=== PATIENT | female | born 1935 ===

== ENCOUNTER 2024-01-30 05:48 | Outpatient (REF) | payer MEDICARE, SELFPAY ==
[2024-01-30 06:23] LABS: Uric Acid 4.6 mg/dL (2.4-5.7)
== END 2024-01-30 05:49 | disposition home or self-care (01) ==
LOC: HO.MMNH1L 05:48
PROVIDERS: Visit Provider Family Medicine
DX: Z13.89 Encounter for screening for other disorder (principal)
CPT/HCPCS: 36415; 84550

== ENCOUNTER 2024-01-30 09:37 | Emergency (ER) | payer MEDICARE, MEDICAID, SELFPAY ==
[2024-01-30 09:42] VITALS: BP 142/86; PULSE 53; O2SAT 93
[2024-01-30 09:47] VITALS: BP 124/54; PULSE 55; RESP 18; O2SAT 97; BMI 30.3
--- NOTE | 2024-01-30 09:59 | ED_ITS ---
History of Present Illness General Chief Complaint: Epistaxis Stated Complaint: BLOODY NOSE FROM SNF,NO THINNERS PER EMS Time Seen by Provider: 01/30/24 09:40 Source: patient and EMS Mode of arrival: EMS Limitations: no limitations History of Present Illness HPI Narrative: 88-year-old female came in from [facility] for evaluation of right nostril bleed since 03:00, patient felt her right nostril is very dry then start to bleed after itching the inside of the right nostril, patient is not on AC or antiplatelet therapy, no history of bleeding disorder. Patient declined headache, chest pain, shortness of breath, dizziness, and lightheadedness. Patient until recently lived independently because of multiple falls patient was transferred to [facility] [place]. Related Data Allergies Allergy/AdvReac Type Severity Reaction Status Date / Time lisinopril Allergy Unknown Unknown Uncoded 01/30/24 09:49 Review of Systems 2 Review of Systems: All other systems are reviewed and are negative Constitutional: Reports as per HPI and Reports no additional constitutional complaints Eyes: Reports as per HPI and Reports no additional eye complaints Reports system reviewed and no additional complaints, except as documented Cardiovascular: Reports as per HPI and Reports no additional cardiovascular complaints Respiratory: Reports as per HPI and Reports no additional respiratory complaints Gastrointestinal: Reports as per HPI and Reports no additional gastrointestinal complaints Genitourinary: Reports no additional female genitourinary complaints Musculoskeletal: Reports no additional musculoskeletal complaints Skin/Breast: Reports system reviewed and no additional complaints, except as docu Psychiatric: Reports no additional psychiatric complaints Endocrine: Reports no additional endocrine complaints Hematologic/Lymphatic: Reports no additional hematologic/lymphatic complaints Allergic/Immunologic: Reports no additional allergic/immunologic complaints Reports system reviewed and no additional complaints, except as documented and Reports Abnormal speech present [facility] Social History Social History Advance Directives: No Advance Directives Information Provided: No Do you have a plan to hurt others: No Plan Physical Exam 2 Vital Signs: Vital Signs: Last Vital Signs Temp 97.5 F 01/30/24 10:59 Pulse 54 01/30/24 10:59 Resp 14 01/30/24 10:59 BP 121/55 L 01/30/24 10:59 Pulse Ox 97 01/30/24 10:59 O2 Del Method Room Air 01/30/24 10:59 BMI result Body Mass Index 30.3 Vital signs have been reviewed and appear to be correct. Blood pressure elevated. Heart rate normal. Respiratory rate normal. Temperature normal. Oxygen saturation normal. Appearance: Alert. Oriented X3. No acute distress. Head: Normal external exam. Normocephalic. Atraumatic. No Nicole signs noted. No raccoon eyes noted Eyes: PERRLA. EOMI. Conjunctiva and sclera normal. Eyelids normal. ENT: Right nostril was dry blood but no active bleeding, external nasal clip was applied to apply external pressure. Neck: Normal inspection. Neck supple. FROM. No adenopathy. Thyroid Normal. No meningeal signs. No neck mass noted. CVS: Normal heart rate and rhythm. Heart sound normal. No murmurs noted. Pulses normal throughout. Respiratory: No respiratory distress. Painless inspiration. Breath sounds normal. No wheezes/rales/rhonchi noted. Chest nontender. No accessory muscle usage noted or decreased air movement noted. Abdomen: Soft and nontender. Bowel sounds normal in all 4 quadrants. No distention noted. No organomegaly noted. No visible injury noted. Back: No CVA tenderness. Full range of motion noted. Skin: Skin warm and dry. Normal skin color. Normal skin turgor. No rashes/lesions/lacerations noted. Extremities: No lower extremity edema. Extremities exhibit normal range of motion. Extremities nontender. Neuro: Oriented X 3. Cranial nerve exam: II-XII are grossly intact No motor deficit. No sensory deficit. Reflexes normal. Course Reevaluation(s) Reevaluation #1: Patient was observed in the emergency department for about 5 hours with no active nasal bleed, patient required no nasal packing, mild thrombocytopenia, otherwise stable H&H and coagulations. Time: 13:00 Medical Decision Making Differential Diagnosis Differential Diagnoses: The differential diagnosis associated with the presentation includes (Thrombocytopenia, coagulopathy, severe anemia, electrolyte derangement, anterior epistaxis, posterior epistaxis.) Admission/Observation Consideration of admission/observation: Escalation of care including admission/observation considered Consult Healthcare Provider Management of the patient was discussed with: Hospitalist Lab Data MDM Lab Attestation statement: I reviewed the patient's lab results. 01/30/24 10:11 01/30/24 10:11 Labs: Lab Results 04/25/24 Range/Units 10:11 WBC 6.5 (4.8-10.8) X10*3/uL RBC 3.99 L (4.20-5.50) X10*6/uL Hgb 12.6 (12.0-16.0) g/dl Hct 38.2 (37.0-47.0) % MCV 95.7 (80.0-98.0) fL MCH 31.6 (27.0-33.0) pg MCHC 33.0 (31.0-35.0) g/dl RDW 14.6 (11.0-16.0) % Plt Count 154 L (160-400) X10*3/uL MPV 9.8 (9.4-12.3) fL Immature Gran % (Auto) 0.2 (0.0-0.4) % Neut % (Auto) 69.7 (45-73) % Lymph % (Auto) 20.4 (20-40) % [place] % (Auto) 6.3 (2-11) % Eos % (Auto) 2.9 (0-4) % Baso % (Auto) 0.5 (0-2) % Lymph # (Auto) 1.3 (1.2-4.9) X10*3/uL [place] # (Auto) 0.4 (0.1-1.2) X10*3/uL Eos # (Auto) 0.2 (0.0-0.4) X10*3/uL Baso # (Auto) 0.0 (0.0-0.2) X10*3/uL Abs Immat Gran (auto) 0.01 (0.00-0.03) X10*3/uL Absolute Neuts (auto) 4.6 (2.0-8.3) x10*3/uL Absolute Nucleated RBC 0.000 (0.0-0.012) X10*3/uL Nucleated RBC % (auto) 0.0 (0.0-0.2) /100WBC PT 12.8 (11.1-13.3) SEC INR 1.1 (0.9-1.1) APTT 31.3 (26.0-36.8) SEC Sodium 141 (135-145) mmol/L Potassium 4.7 D (3.3-5.1) mmol/L Chloride 108 (96-108) mmol/L Carbon Dioxide 27 (22-29) mmol/L Anion Gap 11 L (12-20) BUN 23 H (9-16) mg/dL Creatinine 0.80 (0.5-1.4) mg/dL Estim Creat Clear Calc 50.7 Estimated GFR > 60 Random Glucose 81 (60-115) mg/dL Calcium 9.6 (8.4-10.2) mg/dL Troponin I High Sens < 2.7 (<3.5-17.0) ng/L Discharge Plan Discharge Clinical Impression: Epistaxis Patient Disposition: Xfer SNF Instructions: Nosebleed (ED) Additional Instructions: If is start to bleed from your nose apply external nasal pressure for about 10 minutes if the bleeding does not stop seek immediate medical attention. Referrals: Rex Bass MD [Primary Care Provider] - Print Language: Japanese
[2024-01-30 10:15] LABS: MANUAL DIFF FLAG NO
[2024-01-30 10:17] LABS: Basophils Percent Auto 0.5 % (0-2); Eosinophils Absolute Auto 0.2 X10*3/uL (0.0-0.4); Eosinophils Percent Auto 2.9 % (0-4); Hematocrit 38.2 % (37.0-47.0); Hemoglobin 12.6 g/dl (12.0-16.0); Imm Gran Abs Auto 0.01 X10*3/uL (0.00-0.03); Imm Gran Pct Auto 0.2 % (0.0-0.4); Lymphocytes Absolute Auto 1.3 X10*3/uL (1.2-4.9); Lymphocytes Percent Auto 20.4 % (20-40); Mean Corpuscular Hemoglobin 31.6 pg (27.0-33.0); Mean Corpuscular Volume 95.7 fL (80.0-98.0); Mean Platelet Volume 9.8 fL (9.4-12.3); Monocytes Absolute Auto 0.4 X10*3/uL (0.1-1.2); Monocytes Percent Auto 6.3 % (2-11); Neutrophils Absolute Auto 4.6 x10*3/uL (2.0-8.3); Neutrophils Percent Auto 69.7 % (45-73); Platelet Count 154 X10*3/uL (160-400); Red Blood Count 3.99 X10*6/uL (4.20-5.50); Red Cell Distribution Width 14.6 % (11.0-16.0); White Blood Count 6.5 X10*3/uL (4.8-10.8)
[2024-01-30 10:28] LABS: Anion Gap 11 (12-20); Blood Urea Nitrogen 23 mg/dL (9-16); Calcium 9.6 mg/dL (8.4-10.2); Carbon Dioxide 27 mmol/L (22-29); Chloride 108 mmol/L (96-108); Creatinine Clr Calc Pharmacy 50.7; Estimated Glomerular Filt Rate > 60; Glucose Random 81 mg/dL (60-115); Potassium 4.7 mmol/L (3.3-5.1); Sodium 141 mmol/L (135-145)
[2024-01-30 10:37] LABS: INTERNATIONAL NORM RATIO 1.1 (0.9-1.1); Prothrombin Time 12.8 SEC (11.1-13.3)
[2024-01-30 10:39] LABS: Troponin-I High Sensitivity < 2.7 ng/L (<3.5-17.0)
[2024-01-30 10:40] LABS: Partial Thromboplastin Time 31.3 SEC (26.0-36.8)
[2024-01-30 10:59] VITALS: BP 121/55; PULSE 54; RESP 14; TEMP 36.4; O2SAT 97
[2024-01-30 12:57] VITALS: BP 122/31; PULSE 59; RESP 16; TEMP 36.4; O2SAT 94
== END 2024-01-30 12:59 | disposition skilled nursing facility (03) ==
PROVIDERS: Emergency Provider Emergency Medicine; PCP Family Medicine
DX: R04.0 Epistaxis (principal); Z79.899 Other long term (current) drug therapy
CPT/HCPCS: 36415; 80048; 84484; 84550; 85025; 85610; 85730; 99283

== ENCOUNTER 2024-03-10 12:34 | Outpatient (REF) | payer MEDICARE, SELFPAY ==
[2024-03-10 12:39] LABS: MANUAL DIFF FLAG NO
[2024-03-10 12:45] LABS: Basophils Percent Auto 0.5 % (0-2); Eosinophils Absolute Auto 0.2 X10*3/uL (0.0-0.4); Eosinophils Percent Auto 2.7 % (0-4); Hematocrit 37.2 % (37.0-47.0); Hemoglobin 12.3 g/dl (12.0-16.0); Imm Gran Abs Auto 0.02 X10*3/uL (0.00-0.03); Imm Gran Pct Auto 0.4 % (0.0-0.4); Lymphocytes Absolute Auto 1.4 X10*3/uL (1.2-4.9); Lymphocytes Percent Auto 24.6 % (20-40); Mean Corpuscular HGB Conc 33.1 g/dl (31.0-35.0); Mean Corpuscular Hemoglobin 32.1 pg (27.0-33.0); Mean Corpuscular Volume 97.1 fL (80.0-98.0); Mean Platelet Volume 10.7 fL (9.4-12.3); Monocytes Absolute Auto 0.5 X10*3/uL (0.1-1.2); Monocytes Percent Auto 8.5 % (2-11); Neutrophils Absolute Auto 3.5 x10*3/uL (2.0-8.3); Neutrophils Percent Auto 63.3 % (45-73); Platelet Count 196 X10*3/uL (160-400); Red Blood Count 3.83 X10*6/uL (4.20-5.50); Red Cell Distribution Width 15.2 % (11.0-16.0); White Blood Count 5.5 X10*3/uL (4.8-10.8)
[2024-03-10 12:58] LABS: Anion Gap 12 (12-20); Blood Urea Nitrogen 20 mg/dL (9-16); Calcium 9.8 mg/dL (8.4-10.2); Carbon Dioxide 24 mmol/L (22-29); Chloride 109 mmol/L (96-108); Estimated Glomerular Filt Rate 57; Glucose Random 81 mg/dL (60-115); Sodium 141 mmol/L (135-145); Uric Acid 5.4 mg/dL (2.4-5.7)
== END 2024-03-10 12:35 | disposition home or self-care (01) ==
LOC: HO.MMNH1L 12:34
PROVIDERS: Visit Provider Family Medicine
DX: Z13.89 Encounter for screening for other disorder (principal)
CPT/HCPCS: 36415; 80048; 84550; 85025

== ENCOUNTER 2024-04-05 13:10 | Inpatient (IN) | payer MEDICARE, SELFPAY ==
--- NOTE | ~2024-04-05 | XR_ITS ---
EXAMINATION: XR FOOT, LEFT CLINICAL INFORMATION: Rule out osteo- COMPARISON: None available. TECHNIQUE: AP, lateral, and oblique views of the left foot. FINDINGS: 3 views frontal lateral and oblique, postsurgical changes amputation mid tarsal first toe, subtle radiolucency involving the head of the first metatarsal raising concern for possible osteomyelitis. There are hammertoes second through fifth digits. There are vascular calcifications. XR/XR foot LT min 3V IMPRESSION: * Subtle radiolucency involving the head of the first metatarsal head raising concern for possible osteomyelitis. Please correlate with patient's clinical presentation. Bone scan or MRI could be utilized for further investigation if clinically indicated. * Amputation mid tarsal first toe. * Hammertoes.
[2024-04-05 13:18] VITALS: BP 139/52; PULSE 58; O2SAT 98
[2024-04-05 13:24] VITALS: BP 133/51; PULSE 53; RESP 16; TEMP 36.4; O2SAT 98; BMI 30.5
--- NOTE | 2024-04-05 13:41 | ED.LOWEXIN ---
HPI - Extremity Injury (Lower) General Chief Complaint: Wound/Laceration Stated Complaint: L TOE/FOOT PAIN FROM SNF PER EMS Time Seen by Provider: 04/05/24 13:26 Source: patient, EMS, RN notes reviewed and old records reviewed Mode of arrival: EMS History of Present Illness ED Provider: Peggy Chua PA-C HPI Narrative: 88-year-old female with a past medical history of HTN, ACS, anxiety, HLD, A flutter, CKD, presenting to the ED via EMS from [facility] for worsening left 2nd toe pain, erythema, and swelling noted this week. Patient was initiated on Keflex at facility yesterday. Patient reports increasing/worsening pain over the past few weeks. Denies known fever or SOB Related Data Allergies Allergy/AdvReac Type Severity Reaction Status Date / Time lisinopril Allergy Unknown Unknown Uncoded 04/05/24 13:26 Review of Systems Review of Systems: Constitutional: No Fever, No Chills Cardiovascular: No Chest Pain, No SOB Respiratory: No Cough, No Sputum, No Wheezing Gastrointestinal: No Nausea, No Vomiting, No Diarrhea, No Abdominal pain Genitourinary: No Dysuria, No Urinary Frequency, No Hematuria, No Flank Pain Musculoskeletal: +joint pain, No Myalgias, +Joint Swelling Skin: No Skin Lesions, No rash Neuro: No Weakness, No Numbness, No Paresthesias Yes all other systems are reviewed and are negative Constitutional: Constitutional: Reports as per HPI [facility] Past Medical History Attestation statement: The following information was validated with the patient. Source: old records reviewed Medical History Coronary artery disease Hypertension Hypercholesteremia Chronic renal failure Palpitations Anxiety Depression Diabetes mellitus, type 2 COPD (chronic obstructive pulmonary disease) Surgical History H/O coronary artery bypass surgery Social History Social History Advance Directives: No Advance Directives Information Provided: No Do you have a plan to hurt others: No Plan Physical Exam Vital Signs: Vital Signs: Last Vital Signs Temp 97.6 F 04/05/24 13:24 Pulse 53 04/05/24 13:24 Resp 16 04/05/24 13:24 BP 133/51 L 04/05/24 13:24 Pulse Ox 98 04/05/24 13:24 O2 Del Method Room Air 04/05/24 13:24 BMI result Body Mass Index 30.5 Const: General: cooperative, healthy appearing and no acute distress Orientation/consciousness: patient oriented x3 Limitations: no limitations HEENT: Head: Yes normal to inspection and Yes atraumatic Ears: hearing grossly normal bilaterally General nose exam: Normal external nose present Face and sinus: Yes normal facial exam Eyes: General: appearance normal, both eyes and all related structures EOM: EOMs intact bilaterally Neck: Neck: Yes normal visual inspection and Yes no meningeal signs Resp: Effort & Inspection: normal respiratory effort and no respiratory distress Cardio: Rate: regular rate Heart sounds: S1 normal heart sound present and S2 normal heart sound present Peripheral pulses: dorsalis pedis present Skin: Rashes: no rashes Neuro: General: patient oriented x3 and no meningeal signs Cranial nerves: Yes CN's II-XII intact bilaterally Extrem: Other: Please refer to images above. Left lower extremity with appreciable erythema/warmth. Left 2nd toe with exquisite tenderness. No drainage. NV intact Course Course Course Narrative: -[id number]--no leukocytosis. CRP elevated XR foot LT min 3V IMPRESSION: * Subtle radiolucency involving the head of the first metatarsal head raising concern for possible osteomyelitis. Please correlate with patient's clinical presentation. Bone scan or MRI could be utilized for further investigation if clinically indicated. * Amputation mid tarsal first toe. * Hammertoes. > plan to admit for further management Medical Decision Making Medical Decision Making MDM Narrative: 88-year-old female with a past medical history of HTN, ACS, anxiety, HLD, A flutter, CKD, presenting to the ED via EMS from [facility] for worsening left 2nd toe pain, erythema, and swelling noted this week. On exam vital signs stable, afebrile, NAD, nontoxic appearing, physical exam as noted above. Please refer to images. Concern for cellulitis vs osteomyelitis. lower suspicion for DVT, CHF Low suspicion for severe sepsis at this time Plan: Labs, lactic/blood cultures, x-ray, IV antibiotics, anticipated admission Please refer to course for remaining clinical decision making, interpretation of labs/imaging results, and discussions with consultants and/or family members. Differential Diagnosis Differential Diagnoses: The differential diagnosis associated with the presentation includes As above Admission/Observation Consideration of admission/observation: Escalation of care including admission/observation considered Consult Healthcare Provider Management of the patient was discussed with: Hospitalist Lab Data MDM Lab Attestation statement: I reviewed the patient's lab results. 04/05/24 14:09 04/05/24 14:09 Labs: Lab Results 04/05/24 Range/Units 14:09 WBC 7.3 (4.8-10.8) X10*3/uL RBC 3.96 L (4.20-5.50) X10*6/uL Hgb 12.7 (12.0-16.0) g/dl Hct 38.0 (37.0-47.0) % MCV 96.0 (80.0-98.0) fL MCH 32.1 (27.0-33.0) pg MCHC 33.4 (31.0-35.0) g/dl RDW 14.4 (11.0-16.0) % Plt Count 218 (160-400) X10*3/uL MPV 10.0 (9.4-12.3) fL Immature Gran % (Auto) 0.4 (0.0-0.4) % Neut % (Auto) 73.6 H (45-73) % Lymph % (Auto) 17.0 L (20-40) % [place] % (Auto) 7.2 (2-11) % Eos % (Auto) 1.5 (0-4) % Baso % (Auto) 0.3 (0-2) % Lymph # (Auto) 1.2 (1.2-4.9) X10*3/uL [place] # (Auto) 0.5 (0.1-1.2) X10*3/uL Eos # (Auto) 0.1 (0.0-0.4) X10*3/uL Baso # (Auto) 0.0 (0.0-0.2) X10*3/uL Abs Immat Gran (auto) 0.03 (0.00-0.03) X10*3/uL Absolute Neuts (auto) 5.3 (2.0-8.3) x10*3/uL Absolute Nucleated RBC 0.000 (0.0-0.012) X10*3/uL Nucleated RBC % (auto) 0.0 (0.0-0.2) /100WBC PT 11.8 (11.1-13.3) SEC INR 1.0 (0.9-1.1) Sodium 141 (135-145) mmol/L Potassium 4.1 (3.3-5.1) mmol/L Chloride 106 (96-108) mmol/L Carbon Dioxide 25 (22-29) mmol/L Anion Gap 14 (12-20) BUN 18 H (9-16) mg/dL Creatinine 0.92 (0.5-1.4) mg/dL Estim Creat Clear Calc 42.6 Estimated GFR 58 Random Glucose 81 (60-115) mg/dL Lactic Acid 1.4 (0.5-2.0) mmol/L Calcium 9.7 (8.4-10.2) mg/dL Total Bilirubin 0.3 (0.0-1.0) mg/dL Direct Bilirubin 0.1 (0.0-0.5) mg/dL AST 15 (5-31) U/L ALT 14 (0-31) U/L Alkaline Phosphatase 80 (39-117) U/L C-Reactive Protein 3.30 H (< or = 0.50) mg/dL B-Natriuretic Peptide 90 (<100) pg/mL Total Protein 6.9 (6.5-8.0) g/dL Albumin 3.8 (3.5-5.0) g/dL Independent Interpretation I performed an independent interpretation of an: Plain X-Ray Radiology Impression Discussion of test interpretation with radiology: I have reviewed the radiologist's reading. Independent Historian Clinical information obtained from an independent historian. History obtained from or confirmed by: EMS External Record Review External record reviewed: Inpatient record, Office record, Outpatient record, Prior outpatient labs, Prior outpatient radiology, Primary care record and Outside ED record Tests considered The following testing was considered but not selected: As above Prescription Management I considered prescription management with: Pain Medication and Antibiotic Chronic Conditions Patient?s care impacted by: Hypertension Critical Care Time Critical Care Time Critical Care Time: Yes Total Critical Care Time: 40 Attestation: I have personally provided critical care time exclusive of time spent on separately billable procedures. Time includes review of lab data, radiology results, discussion with consultants, and monitoring for potential decompensation. Intervention performed as documented. Discharge Plan Discharge Clinical Impression: Osteomyelitis, Cellulitis Patient Disposition: Admitted As Inpatient Print Language: Indian
[2024-04-05 14:26] LABS: Prothrombin Time 11.8 SEC (11.1-13.3)
[2024-04-05 14:30] LABS: Basophils Percent Auto 0.3 % (0-2); Eosinophils Absolute Auto 0.1 X10*3/uL (0.0-0.4); Eosinophils Percent Auto 1.5 % (0-4); Hemoglobin 12.7 g/dl (12.0-16.0); Imm Gran Abs Auto 0.03 X10*3/uL (0.00-0.03); Imm Gran Pct Auto 0.4 % (0.0-0.4); Lymphocytes Absolute Auto 1.2 X10*3/uL (1.2-4.9); MANUAL DIFF FLAG NO; Mean Corpuscular HGB Conc 33.4 g/dl (31.0-35.0); Mean Corpuscular Hemoglobin 32.1 pg (27.0-33.0); Monocytes Absolute Auto 0.5 X10*3/uL (0.1-1.2); Monocytes Percent Auto 7.2 % (2-11); Neutrophils Absolute Auto 5.3 x10*3/uL (2.0-8.3); Neutrophils Percent Auto 73.6 % (45-73); Platelet Count 218 X10*3/uL (160-400); Red Blood Count 3.96 X10*6/uL (4.20-5.50); Red Cell Distribution Width 14.4 % (11.0-16.0); White Blood Count 7.3 X10*3/uL (4.8-10.8)
[2024-04-05 14:31] LABS: Lactic Acid 1.4 mmol/L (0.5-2.0)
[2024-04-05 14:48] LABS: Alanine Aminotransferase 14 U/L (0-31); Albumin Level 3.8 g/dL (3.5-5.0); Alkaline Phosphatase 80 U/L (39-117); Anion Gap 14 (12-20); Aspartate Amino Transferase 15 U/L (5-31); B Type Natriuretic Peptide 90 pg/mL (<100); Bilirubin Direct 0.1 mg/dL (0.0-0.5); Bilirubin Total 0.3 mg/dL (0.0-1.0); Blood Urea Nitrogen 18 mg/dL (9-16); Calcium 9.7 mg/dL (8.4-10.2); Carbon Dioxide 25 mmol/L (22-29); Chloride 106 mmol/L (96-108); Creatinine Clr Calc Pharmacy 42.6; Estimated Glomerular Filt Rate 58; Glucose Random 81 mg/dL (60-115); Potassium 4.1 mmol/L (3.3-5.1); Sodium 141 mmol/L (135-145); Total Protein 6.9 g/dL (6.5-8.0)
[2024-04-05 15:00] LABS: Erythrocyte Sedimentation Rate 34 MM/HR (0-20)
[2024-04-05] MEDS: Piperacillin Sodium/Tazobactam 3.375 GM in 0.9 % Sodium Chloride 50 ML IV ×2 (15:33→20:15)
[2024-04-05] MEDS: vancomycin/NS 2,000 MG/500 ML PLAST..BAG 250 MG IV (15:38)
--- NOTE | 2024-04-05 15:46 | PM.IMHP ---
History of Present Illness Date of Service: 04/06/24 Chief Complaint: Foot pain An 88 years old lady with PMH of HTN, CAD, HLD, DMII among others who presents from [facility] with worsening left 2nd toe pain, swelling and erythema for 1 week. The patient reports worsening pain with no fever or chills. She was started on oral antibiotics but did not improved In ED an XR was done showing suspecion of osteomyelitis. Started on IV antibiotics and admitted for further work up and management. Review of Systems Review of Systems: No fever, some chills w weakness No chest pain, palpitation No shortness of breath or coughing No abdominal pain, nausea or vomiting No urinary symptoms Left foot pain PMFSH Medical History Coronary artery disease Hypertension Hypercholesteremia Chronic renal failure Palpitations Anxiety Depression Diabetes mellitus, type 2 COPD (chronic obstructive pulmonary disease) Surgical History H/O coronary artery bypass surgery Social History Household Members: None Housing: Long-Term Do you presently have visiting nurse or other home services: No Alcohol intake: never Patient Tobacco Use Status: Never used Tobacco Smoked in Last 30 Days: No Use of substances other than those prescribed or required for medical reasons: No Currently Displaying Signs/Symptoms of Drug Intoxication Withdrawal: No Any prior treatment program specific to substance use: No Advance Directives: No Advance Directives Information Provided: No Do you have a plan to hurt others: No Plan Recently lost weight without trying: No Eating poorly because of decreased appetite: No Patient : No : No Poor oral hygiene: No Meds Allergies Allergy/AdvReac Type Severity Reaction Status Date / Time lisinopril Allergy Unknown Unknown Uncoded 04/05/24 13:26 Active Medications: Current Medications Acetaminophen (Acetaminophen 325 Mg Tablet) 650 mg PO Q6H PRN PRN Reason: Pain, Mild (Pain Scale 1-3), fever or headache Calcium Carbonate (Calcium Carbonate 750 Mg Tab.Chew) 750 mg PO Q4H PRN PRN Reason: Heartburn Enoxaparin Sodium (Enoxaparin Sodium 40 Mg/0.4 Ml Syringe) 40 mg SUBCUT Q24H LAURA Vancomycin HCl (Vancomycin/Ns) 2,000 mg in 500 mls @ 250 mls/hr IV ONCE ONE Stop: 04/05/24 15:55 Last Admin: 04/05/24 15:38 Dose: 250 mls/hr Piperacillin Sod/Tazobactam (Sod 3.375 gm/ Sodium Chloride) 50 mls @ 100 mls/hr IV Q6H LAURA Magnesium Hydroxide (Milk Of Magnesia 30 Ml Oral.Susp) 30 ml PO DAILY PRN PRN Reason: Constipation Melatonin (Melatonin 3 Mg Tablet) 6 mg PO BEDTIME PRN PRN Reason: Insomnia Ondansetron HCl (Ondansetron Hcl 4 Mg/2 Ml Vial) 4 mg IVPUSH Q8H PRN PRN Reason: Nausea and Vomiting Pharmacy Consult (Consult Rx Vancomycin Dosing) 1 each MISCELLANE DAILY PRN PRN Reason: Consult order Sodium Chloride (0.9 % Sodium Chloride Flush 3 Ml Syringe) 3 ml IVFLUSH QSHIFT [facility] Home Medications ?Medication ?Instructions ?Recorded ?Confirmed ?Last Taken ?Type Saccharomyces boulardii 250 mg 250 mg PO BID 04/05/24 04/05/24 Unknown History capsule (Probiotic (S.boulardii)) acetaminophen 325 mg tablet 650 mg PO Q6H PRN Fever Or Pain 04/05/24 04/05/24 Unknown History (Tylenol) albuterol sulfate 2.5 mg/3 mL 2.5 mg inhalation Q6H PRN 04/05/24 04/05/24 Unknown History (0.083 %) solution for nebulization Shortness Of Breath Or Wheezing amiodarone 200 mg tablet 200 mg PO DAILY 04/05/24 04/05/24 Unknown History ascorbic acid (vitamin C) 250 mg 250 mg PO DAILY 04/05/24 04/05/24 Unknown History tablet (Vitamin C) atorvastatin 20 mg tablet 20 mg PO BEDTIME 04/05/24 04/05/24 Unknown History bisacodyl 10 mg rectal suppository 10 mg IL DAILY PRN Constipation 04/05/24 04/05/24 Unknown History (Dulcolax (bisacodyl)) cephalexin 250 mg capsule 250 mg PO Q6H 04/05/24 04/05/24 Unknown History cholecalciferol (vitamin D3) 25 50 mcg PO DAILY 04/05/24 04/05/24 Unknown History mcg (1,000 unit) tablet (Vitamin D3) dextromethorphan-guaifenesin 10 10 ml PO Q4H PRN Cough 04/05/24 04/05/24 Unknown History mg-100 mg/5 mL oral syrup diclofenac sodium 1 % topical gel 4 g topical DAILY 04/05/24 04/05/24 Unknown History diclofenac sodium 1 % topical gel 4 g topical Q6H PRN neck pain 04/05/24 04/05/24 Unknown History escitalopram oxalate 10 mg tablet 30 mg PO DAILY 04/05/24 04/05/24 Unknown History ferrous sulfate 325 mg (65 mg 325 mg PO DAILY 04/05/24 04/05/24 Unknown History iron) tablet,delayed release fluticasone 250 mcg-salmeterol 50 1 ea inhalation BID 04/05/24 04/05/24 Unknown History mcg/dose blistr powdr for inhalation furosemide 20 mg tablet 10 mg PO DAILY 04/05/24 04/05/24 Unknown History gabapentin 300 mg capsule 300 mg PO BID 04/05/24 04/05/24 Unknown History loperamide 2 mg tablet 2 mg PO Q2H PRN Diarrhea 04/05/24 04/05/24 Unknown History magnesium hydroxide 400 mg/5 mL 30 ml PO DAILY PRN Constipation 04/05/24 04/05/24 Unknown History oral suspension (Milk of Magnesia) nystatin 100,000 unit/gram topical 1 appl topical DAILY 04/05/24 04/05/24 Unknown History powder oxymetazoline 0.05 % nasal mist 1 spray intranasal Q12H PRN nasal 04/05/24 04/05/24 Unknown History (Afrin (oxymetazoline)) bleeding pantoprazole 40 mg tablet,delayed 40 mg PO DAILY@62904/05/24 04/05/24 Unknown History release polyethylene glycol 3350 17 gram 17 g PO DAILY 04/05/24 04/05/24 Unknown History oral powder packet (Miralax) polyethylene glycol 3350 17 gram 17 g PO Q3D PRN Constipation 04/05/24 04/05/24 Unknown History oral powder packet (Miralax) ropinirole 2 mg tablet 2 mg PO BID 04/05/24 04/05/24 Unknown History sennosides 8.6 mg-docusate sodium 1 tab-cap PO BID PRN Constipation 04/05/24 04/05/24 Unknown History 50 mg tablet (Senna with Docusate Sodium) sodium chloride 0.65 % nasal spray 2 spray intranasal BID 04/05/24 04/05/24 Unknown History aerosol (Saline Nasal) sodium phosphates 19 gram-7 118 ml [place] DAILY PRN Constipation 04/05/24 04/05/24 Unknown History gram/118 mL enema (Fleet Enema) tramadol 50 mg tablet 50 mg PO BEDTIME 04/05/24 04/05/24 Unknown History tramadol 50 mg tablet 50 mg PO BID PRN Pain 04/05/24 04/05/24 Unknown History trazodone 50 mg tablet 12.5 mg PO BID PRN 04/05/24 04/05/24 Unknown History anxiety/agitation trazodone 50 mg tablet 25 mg PO BEDTIME 04/05/24 04/05/24 Unknown History Physical Exam Vital Signs and Narrative: Vital Signs: Last Vital Signs Temp 97.6 F 04/05/24 13:24 Pulse 53 04/05/24 13:24 Resp 16 04/05/24 13:24 BP 133/51 L 04/05/24 13:24 Pulse Ox 98 04/05/24 13:24 O2 Del Method Room Air 04/05/24 13:24 BMI result Body Mass Index 30.5 Const: Other: Constitutional : Awake, interactive, not in distress Neck : Normal inspection, Supple Cardiovascular : RRR, no JVP, no lower extremity edema Respiratory : good bilateral air entry, no crackles, wheezes or rhonchi Gastrointestinal: soft, lax, Normal bowel sounds, Non tender Skin : Warm, Dry, LLE erythema and 2nd toe swelling and redness Neurological : Alert & oriented x3, No focal deficit Results Labs 04/06/24 05:44 04/06/24 05:44 Labs: Laboratory Results - last 24 hr 04/05/24 14:09 MCV 96.0 MCH 32.1 MCHC 33.4 RDW 14.4 Plt Count 218 MPV 10.0 Immature Gran % (Auto) 0.4 Neut % (Auto) 73.6 H Lymph % (Auto) 17.0 L [place] % (Auto) 7.2 Eos % (Auto) 1.5 Baso % (Auto) 0.3 Lymph # (Auto) 1.2 [place] # (Auto) 0.5 Eos # (Auto) 0.1 Baso # (Auto) 0.0 Abs Immat Gran (auto) 0.03 Absolute Neuts (auto) 5.3 Absolute Nucleated RBC 0.000 Nucleated RBC % (auto) 0.0 ESR 34 H PT 11.8 INR 1.0 Anion Gap 14 Estim Creat Clear Calc 42.6 Estimated GFR 58 Random Glucose 81 Lactic Acid 1.4 Calcium 9.7 Total Bilirubin 0.3 Direct Bilirubin 0.1 AST 15 ALT 14 Alkaline Phosphatase 80 C-Reactive Protein 3.30 H B-Natriuretic Peptide 90 Total Protein 6.9 Albumin 3.8 Imaging Radiologist's Impressions: Impressions Foot X-Ray 04/05/24 14:27 IMPRESSION: * Subtle radiolucency involving the head of the first metatarsal head raising concern for possible osteomyelitis. Please correlate with patient's clinical presentation. Bone scan or MRI could be utilized for further investigation if clinically indicated. * Amputation mid tarsal first toe. * Hammertoes. Assessment and Plan (1) Cellulitis: Status: Acute (2) Osteomyelitis: Status: Acute Plan An 88 years old lady with PMH of HTN, CAD, HLD, DMII, AFlutter not on AC? among others who presents from [facility] with worsening left 2nd toe pain, swelling and erythema for 1 week. Osteomyelitis Left 1st Metatarsal XR showing possible 2nd Metatarsal head OM PEnding cultures Continue IV Abx ID consult Follow Vancomycin trough Atrial flutter, Continue AMiodarone HLD, Statin EKTA, Iron supplement DMII, POC and SSI Asthma, continue inhalers DVT PPx Lovenox The patient will need overnight hospital stay pending clinical improvement , final cultures and discharge planning Quality Stroke Does the patient have a stroke diagnosis?: No VTE Prior VTE?: No VTE Risk Level:: Medical - moderate - high VTE Device Contraindication: Treatment Not Indicated VTE Drug Contraindication: N/A - Med Ordered
--- NOTE | 2024-04-05 16:56 | PHA.MEDREC ---
Pharmacy Consult ? Medication Reconciliation Pharmacy has completed the medication reconciliation. List from [facility].
[2024-04-05 17:06] LABS: Glucose, Whole Blood 106 mg/dL (60-115)
[2024-04-05] MEDS: 0.9 % Sodium Chloride Flush 3 ML SYRINGE IVFLUSH ×2 (19:45→22:18)
--- NOTE | 2024-04-05 19:59 | PC.NURSE ---
pt cleaned and repositioned, pure wick applied for comfort, warm blankets applied and left leg elevated with pillows. call castro in reach, pt verbalized understanding of use.
[2024-04-05 20:03] VITALS: BP 173/68; PULSE 52; RESP 17; TEMP 36.7; O2SAT 97
[2024-04-05] MEDS: Acetaminophen 325 MG TABLET 650 MG PO (20:14)
[2024-04-05] MEDS: Gabapentin 300 MG CAPSULE PO (20:15)
[2024-04-05] MEDS: ondansetron HCL 4 MG/2 ML VIAL IVPUSH (20:15)
[2024-04-05] MEDS: traZODone HCL 50 MG TABLET 12.5 MG PO (20:15)
[2024-04-05] MEDS: Atorvastatin Calcium 20 MG TABLET PO (20:15)
[2024-04-05] MEDS: Enoxaparin Sodium 40 MG/0.4 ML SYRINGE SUBCUT (20:16)
[2024-04-05 21:11] VITALS: BP 143/70; PULSE 56; RESP 16; TEMP 36.2; O2SAT 98
[2024-04-05 21:39] LABS: Glucose, Whole Blood 74 mg/dL (60-115)
[2024-04-05] MEDS: rOPINIRole HCL 2 MG TABLET PO (22:01)
[2024-04-05] MEDS: traMADoL HCL 50 MG TABLET PO (22:12)
[2024-04-05 23:36] VITALS: BMI 31.2
[2024-04-06] MEDS: Piperacillin Sodium/Tazobactam 3.375 GM in 0.9 % Sodium Chloride 50 ML IV ×4 (03:01→20:19)
[2024-04-06 04:00] VITALS: BP 147/67; PULSE 50; RESP 16; TEMP 36.1; O2SAT 98
[2024-04-06] MEDS: Acetaminophen 325 MG TABLET 650 MG PO (05:24)
[2024-04-06] MEDS: Omeprazole 20 MG CAPSULE.DR PO (05:24)
[2024-04-06 06:14] LABS: Hematocrit 37.6 % (37.0-47.0); Hemoglobin 12.2 g/dl (12.0-16.0); Mean Corpuscular HGB Conc 32.4 g/dl (31.0-35.0); Mean Corpuscular Volume 98.7 fL (80.0-98.0); Mean Platelet Volume 10.1 fL (9.4-12.3); Platelet Count 194 X10*3/uL (160-400); Red Blood Count 3.81 X10*6/uL (4.20-5.50); Red Cell Distribution Width 14.6 % (11.0-16.0); White Blood Count 4.9 X10*3/uL (4.8-10.8)
[2024-04-06 06:29] LABS: Anion Gap 14 (12-20); Blood Urea Nitrogen 14 mg/dL (9-16); Calcium 9.3 mg/dL (8.4-10.2); Carbon Dioxide 22 mmol/L (22-29); Chloride 110 mmol/L (96-108); Creatinine Clr Calc Pharmacy 48.4; Estimated Glomerular Filt Rate > 60; Glucose Random 87 mg/dL (60-115); Potassium 4.1 mmol/L (3.3-5.1); Sodium 142 mmol/L (135-145)
[2024-04-06 07:51] LABS: Glucose, Whole Blood 83 mg/dL (60-115)
[2024-04-06] MEDS: Fluticasone/Vilanterol 100/25 BLST.W.DEV 1 PUFF INHALE (07:56)
[2024-04-06 07:57] VITALS: PULSE 50; RESP 15; O2SAT 94
[2024-04-06 08:00] VITALS: BP 116/55; PULSE 50; RESP 16; TEMP 36.1; O2SAT 97
[2024-04-06] MEDS: Furosemide 20 MG TABLET 10 MG PO (08:15)
[2024-04-06] MEDS: rOPINIRole HCL 2 MG TABLET PO ×2 (08:15→20:22)
[2024-04-06] MEDS: Amiodarone HCL 200 MG TABLET PO (08:17)
[2024-04-06] MEDS: Escitalopram Oxalate 10 MG TABLET 30 MG PO (08:17)
[2024-04-06] MEDS: Ferrous Sulfate 324 MG TABLET.DR PO (08:17)
[2024-04-06] MEDS: Ascorbic Acid 250 MG TABLET PO (08:17)
[2024-04-06] MEDS: Cholecalciferol (Vitamin D3) 25 MCG TABLET 50 MCG PO (08:17)
[2024-04-06] MEDS: Gabapentin 300 MG CAPSULE PO ×2 (08:18→20:22)
[2024-04-06] MEDS: polyethylene glycoL 3350 17 GM POWD.PACK PO (08:18)
[2024-04-06] MEDS: 0.9 % Sodium Chloride Flush 3 ML SYRINGE IVFLUSH ×3 (08:22→20:19)
--- NOTE | 2024-04-06 10:51 | HO.PM.IMPN ---
Subjective Subjective Date of Service: 04/06/24 Interval History: seen and evaluated foot looks much better less erythema and tenderness no other events Review of Systems Review of Systems: Yes all other systems are reviewed and are negative Physical Exam Vital Signs: Vital Signs: Last Vital Signs Temp 96.9 F 04/06/24 08:00 Pulse 50 04/06/24 08:00 Resp 16 04/06/24 08:00 BP 116/55 L 04/06/24 08:00 Pulse Ox 97 04/06/24 08:00 O2 Del Method Room Air 04/06/24 08:00 BMI result Body Mass Index 31.2 Const: Other: Constitutional : Awake, interactive, not in distress Neck : Normal inspection, Supple Cardiovascular : RRR, no JVP, no lower extremity edema Respiratory : good bilateral air entry, no crackles, wheezes or rhonchi Gastrointestinal: soft, lax, Normal bowel sounds, Non tender Skin : Warm, Dry, LLE erythema and 2nd toe swelling and redness Neurological : Alert & oriented x3, No focal deficit Objective Data Active Medications Acetaminophen (Acetaminophen 325 Mg Tablet) 650 mg PO Q6H PRN PRN Reason: Pain, Mild (Pain Scale 1-3), fever or headache Last Admin: 04/06/24 05:24 Dose: 650 mg Documented By: HALIMA Albuterol Sulfate (Albuterol Sulfate (0.083%) 2.5 Mg/3 Ml Vial.Neb) 2.5 mg INHALE Q6H PRN PRN Reason: Shortness Of Breath Or Wheezing Amiodarone HCl (Amiodarone Hcl 200 Mg Tablet) 200 mg PO DAILY [facility] Last Admin: 04/06/24 08:17 Dose: 200 mg Documented By: RIC Ascorbic Acid (Ascorbic Acid 250 Mg Tablet) 250 mg PO DAILY [facility] Last Admin: 04/06/24 08:17 Dose: 250 mg Documented By: RIC Atorvastatin Calcium (Atorvastatin Calcium 20 Mg Tablet) 20 mg PO BEDTIME [facility] Last Admin: 04/05/24 20:15 Dose: 20 mg Documented By: OPAL Bisacodyl (Bisacodyl 10 Mg Supp.Rect) 10 mg MN DAILY PRN PRN Reason: Constipation Calcium Carbonate (Calcium Carbonate 750 Mg Tab.Chew) 750 mg PO Q4H PRN PRN Reason: Heartburn Enoxaparin Sodium (Enoxaparin Sodium 40 Mg/0.4 Ml Syringe) 40 mg SUBCUT Q24H [facility] Last Admin: 04/05/24 20:16 Dose: 40 mg Documented By: OPAL Escitalopram Oxalate (Escitalopram Oxalate 10 Mg Tablet) 30 mg PO DAILY [facility] Last Admin: 04/06/24 08:17 Dose: 30 mg Documented By: RIC Ferrous Sulfate (Ferrous Sulfate 324 Mg Tablet.Dr) 324 mg PO DAILY [facility] Last Admin: 04/06/24 08:17 Dose: 324 mg Documented By: RIC Fluticasone/Vilanterol (Fluticasone/Vilanterol 100/25 Blst.W.Dev) 1 puff INHALE RDAILY [facility] Last Admin: 04/06/24 07:56 Dose: 1 puff Documented By: NEREIDA Furosemide (Furosemide 20 Mg Tablet) 10 mg PO DAILY [facility]; Protocol Last Admin: 04/06/24 08:15 Dose: 10 mg Documented By: RIC Gabapentin (Gabapentin 300 Mg Capsule) 300 mg PO BID [facility] Last Admin: 04/06/24 08:18 Dose: 300 mg Documented By: RIC Guaifenesin/Dextromethorphan (Guaifenesin Dm 100/10/5 Ml 5 Ml Syrup) 10 ml PO Q4H PRN PRN Reason: Cough Piperacillin Sod/Tazobactam (Sod 3.375 gm/ Sodium Chloride) 50 mls @ 100 mls/hr IV Q6H [facility] Last Infusion: 04/06/24 09:06 Dose: Infused Documented By: RIC Vancomycin HCl 1,250 mg/ (Sodium Chloride) 250 mls @ 166.667 mls/hr IV Q24H [facility] Insulin Human Lispro (Insulin Lispro 100 Unit/Ml 3 Ml Vial) 0 unit SUBCUT QIDACHS [facility]; Protocol Last Admin: 04/06/24 07:58 Dose: Not Given Documented By: RIC Non-Admin Reason: No Insulin Coverage Loperamide HCl (Loperamide Hcl 2 Mg Capsule) 2 mg PO Q2H PRN PRN Reason: Diarrhea Magnesium Hydroxide (Milk Of Magnesia 30 Ml Oral.Susp) 30 ml PO DAILY PRN PRN Reason: Constipation Magnesium Hydroxide (Milk Of Magnesia 30 Ml Oral.Susp) 30 ml PO DAILY PRN PRN Reason: Constipation Melatonin (Melatonin 3 Mg Tablet) 6 mg PO BEDTIME PRN PRN Reason: Insomnia Omeprazole (Omeprazole 20 Mg Capsule.Dr) 20 mg PO DAILY@0630 [facility] Last Admin: 04/06/24 05:24 Dose: 20 mg Documented By: HALIMA Ondansetron HCl (Ondansetron Hcl 4 Mg/2 Ml Vial) 4 mg IVPUSH Q8H PRN PRN Reason: Nausea and Vomiting Last Admin: 04/05/24 20:15 Dose: 4 mg Documented By: OPAL Oxymetazoline HCl (Oxymetazoline Hcl 0.05 % Nasal 15 Ml Bennett) 1 spray NOSTRIL-B Q12H PRN PRN Reason: nasal bleeding Pharmacy Consult (Consult Rx Vancomycin Dosing) 1 each MISCELLANE DAILY PRN PRN Reason: Consult order Polyethylene Glycol (Polyethylene Glycol 3350 17 Gm Powd.Pack) 17 gm PO DAILY [facility] Last Admin: 04/06/24 08:18 Dose: 17 gm Documented By: RIC Polyethylene Glycol (Polyethylene Glycol 3350 17 Gm Powd.Pack) 17 gm PO Q3D PRN PRN Reason: Constipation Ropinirole HCl (Ropinirole Hcl 2 Mg Tablet) 2 mg PO BID [facility] Last Admin: 04/06/24 08:15 Dose: 2 mg Documented By: RIC Senna/Docusate Sodium (Sennosides/Docusate Sodium Tablet) 1 tab PO BID PRN PRN Reason: Constipation Sodium Biphosphate/Sodium Phosphate (Sodium Phosphate,[place]-Dibasic 133 Ml Enema) 118 ml MN DAILY PRN PRN Reason: Constipation Sodium Chloride (0.9 % Sodium Chloride Flush 3 Ml Syringe) 3 ml IVFLUSH QSHIFT [facility] Last Admin: 04/06/24 08:22 Dose: 3 ml Documented By: RIC Sodium Chloride (Sodium Chloride 0.65 % Nasal 44 Ml Sprbtl) 2 spray NOSTRIL-B BID [facility] Last Admin: 04/06/24 09:06 Dose: Not Given Documented By: RIC Non-Admin Reason: Patient Refused Tramadol HCl (Tramadol Hcl 50 Mg Tablet) 50 mg PO BEDTIME [facility] Last Admin: 04/05/24 22:12 Dose: 50 mg Documented By: HALIMA Tramadol HCl (Tramadol Hcl 50 Mg Tablet) 50 mg PO BID PRN PRN Reason: Pain, Moderate(Pain Scale 4-6) Trazodone HCl (Trazodone Hcl 50 Mg Tablet) 12.5 mg PO BID PRN PRN Reason: anxiety/agitation Last Admin: 04/05/24 20:15 Dose: 12.5 mg Documented By: OPAL Trazodone HCl (Trazodone Hcl 25 Mg Halftab) 25 mg PO BEDTIME [facility] Last Admin: 04/06/24 00:37 Dose: Not Given Documented By: HALIMA Non-Admin Reason: pt asleep Vitamin D (Cholecalciferol (Vitamin D3) 25 Mcg Tablet) 50 mcg PO DAILY [facility] Last Admin: 04/06/24 08:17 Dose: 50 mcg Documented By: RIC Labs 04/06/24 05:44 04/06/24 05:44 Labs: Laboratory Results - last 24 hr 04/05/24 04/05/24 04/05/24 14:09 17:02 21:32 MCV 96.0 MCH 32.1 MCHC 33.4 RDW 14.4 Plt Count 218 MPV 10.0 Immature Gran % (Auto) 0.4 Neut % (Auto) 73.6 H Lymph % (Auto) 17.0 L [place] % (Auto) 7.2 Eos % (Auto) 1.5 Baso % (Auto) 0.3 Lymph # (Auto) 1.2 [place] # (Auto) 0.5 Eos # (Auto) 0.1 Baso # (Auto) 0.0 Abs Immat Gran (auto) 0.03 Absolute Neuts (auto) 5.3 Absolute Nucleated RBC 0.000 Nucleated RBC % (auto) 0.0 ESR 34 H PT 11.8 INR 1.0 Anion Gap 14 Estim Creat Clear Calc 42.6 Estimated GFR 58 POC Glucose 106 74 Random Glucose 81 Lactic Acid 1.4 Calcium 9.7 Total Bilirubin 0.3 Direct Bilirubin 0.1 AST 15 ALT 14 Alkaline Phosphatase 80 C-Reactive Protein 3.30 H B-Natriuretic Peptide 90 Total Protein 6.9 Albumin 3.8 04/06/24 04/06/24 05:44 07:43 MCV 98.7 H MCH 32.0 MCHC 32.4 RDW 14.6 Plt Count 194 MPV 10.1 Immature Gran % (Auto) Neut % (Auto) Lymph % (Auto) [place] % (Auto) Eos % (Auto) Baso % (Auto) Lymph # (Auto) [place] # (Auto) Eos # (Auto) Baso # (Auto) Abs Immat Gran (auto) Absolute Neuts (auto) Absolute Nucleated RBC 0.000 Nucleated RBC % (auto) 0.0 ESR PT INR Anion Gap 14 Estim Creat Clear Calc 48.4 Estimated GFR > 60 POC Glucose 83 Random Glucose 87 Lactic Acid Calcium 9.3 Total Bilirubin Direct Bilirubin AST ALT Alkaline Phosphatase C-Reactive Protein B-Natriuretic Peptide Total Protein Albumin Assessment and Plan (1) Cellulitis: Status: Acute (2) Osteomyelitis: Status: Acute Plan An 88 years old lady with PMH of HTN, CAD, HLD, DMII, AFlutter not on AC? among others who presents from [facility] with worsening left 2nd toe pain, swelling and erythema for 1 week. Osteomyelitis Left 1st Metatarsal XR showing possible 2nd Metatarsal head OM PEnding cultures Continue IV Abx ID consult Follow Vancomycin trough Atrial flutter, Continue AMiodarone HLD, Statin EKTA, Iron supplement DMII, POC and SSI Asthma, continue inhalers DVT PPx Lovenox The patient will need overnight hospital stay pending clinical improvement , final cultures and discharge planning Quality Stroke Does the patient have a stroke diagnosis?: No VTE Prior VTE?: No VTE Risk Level:: Medical - moderate - high VTE Device Contraindication: Treatment Not Indicated VTE Drug Contraindication: N/A - Med Ordered
[2024-04-06 11:14] LABS: Glucose, Whole Blood 90 mg/dL (60-115)
--- NOTE | 2024-04-06 13:00 | MHC.CM.PN ---
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 PT IS ESSENTIALLY W/C BOUND BUT STILL WORKS WITH REHAB FOR AMBULATION. +HCP, COPY REQUESTED FROM CENTER . PCP DR. SHARP DP: PT WILL RETURN TO [facility] ON DC VIA BLS. CM WILL CONTINUE TO FOLLOW FOR ANY CHANGE TO DC PLAN.
[2024-04-06] MEDS: traMADoL HCL 50 MG TABLET PO ×2 (14:00→20:22)
--- NOTE | 2024-04-06 15:11 | HO.WOUND ---
Wound Consult: Initial 88yr old?female admitted to [facility] on 04/06/24 - See progress notes and H&P for detailed history.? Wound consult placed for Left 2nd toe wound.? Patient agreeable to assessment and photo documentation.? Patient reports she has had wound for sometime and in the past had treated with podiatry. Left lower leg and foot cellulitis Left 2nd Toe Etiology: ?Unstageable Pressure Injury ?Present on Admission Measurements: 0.4cm x 0.5cm x 0.2cm Wound Bed: adherent yellow slough Drainage / Odor: yellow drainage noted no odor Edges: ? unattached Adela wound: ?bright red erythema, +swelling noted, No Induration, Fluctuance or Warmth noted Pain: extreme pain noted Goals of Treatment: ? Durafiber AG for moisture management Recommendations: 1. Turn and Reposition every 2 hours and as needed for patient comfort.? Use pillows or wedges to support off loading positions. 2. Off Load all bony prominences with use of pillows and heel boots if needed.? Apply Preventative foams where needed. ? 3. Monitor for incontinence and moisture control, use barrier creams when needed for prevention and treatment. 4. Provide adequate and supplemental nutrition.? 5. Order or Continue low air loss mattress. 6. When applicable maintain blood glucose levels per Providers order. 7.Bilateral Heels - Apply foam dressing, peel back and assess Q shift change every 3 -5 days and PRN. Off load from surface of bed with pillows or heel protector boots. 8. Left 2nd Toe - Cleanse with NS. Apply skin prep. Apply Durafiber AG to wound bed ,cover with foam cut dressing. Change every other day. Re-consult wound care Nurse for wound deterioration or wound changes.
[2024-04-06 16:00] VITALS: BP 134/61; PULSE 51; RESP 18; TEMP 36.2; O2SAT 100
[2024-04-06] MEDS: Enoxaparin Sodium 40 MG/0.4 ML SYRINGE SUBCUT (16:07)
[2024-04-06] MEDS: Morphine Sulfate 2 MG/ML CARTRIDGE IVPUSH ×2 (16:08→20:18)
[2024-04-06] MEDS: vancomycin HCL 1,250 MG in 0.9 % Sodium Chloride 250 ML 166.67 MG IV (16:09)
--- NOTE | 2024-04-06 16:09 | P.CNID_ITS ---
History of Present Illness Data of Consult Service Date: 04/06/24 Requesting physician: Jalen Oakley Primary Care Provider: Rex Bass MD HPI Reason for consult: left second toe infection She reports redness toe and foot over last month. She has no fever or chills. She has OM probable 1st metatarsal head. She was on Keflex for a day at [facility] with no improvement. Review of Systems 2 Review of Systems: Yes all other systems are reviewed and are negative PMFSH Past Medical History Medical History Coronary artery disease Hypertension Hypercholesteremia Chronic renal failure Palpitations Anxiety Depression Diabetes mellitus, type 2 COPD (chronic obstructive pulmonary disease) Family History Family history: reviewed and not pertinent Surgical History Surgical History H/O coronary artery bypass surgery Social History Social History Household Members: None Housing: Half-Way Do you presently have visiting nurse or other home services: No Alcohol intake: never Patient Tobacco Use Status: Never used Tobacco Smoked in Last 30 Days: No Use of substances other than those prescribed or required for medical reasons: No Currently Displaying Signs/Symptoms of Drug Intoxication Withdrawal: No Any prior treatment program specific to substance use: No Advance Directives: No Advance Directives Information Provided: No Do you have a plan to hurt others: No Plan Recently lost weight without trying: No Eating poorly because of decreased appetite: No Patient : No : No Poor oral hygiene: No service: No Meds Allergies Allergy/AdvReac Type Severity Reaction Status Date / Time lisinopril Allergy Unknown Unknown Uncoded 04/05/24 13:26 Active Medications: Current Medications Acetaminophen (Acetaminophen 325 Mg Tablet) 650 mg PO Q6H PRN PRN Reason: Pain, Mild (Pain Scale 1-3), fever or headache Last Admin: 04/06/24 05:24 Dose: 650 mg Albuterol Sulfate (Albuterol Sulfate (0.083%) 2.5 Mg/3 Ml Vial.Neb) 2.5 mg INHALE Q6H PRN PRN Reason: Shortness Of Breath Or Wheezing Amiodarone HCl (Amiodarone Hcl 200 Mg Tablet) 200 mg PO DAILY [facility] Last Admin: 04/06/24 08:17 Dose: 200 mg Ascorbic Acid (Ascorbic Acid 250 Mg Tablet) 250 mg PO DAILY [facility] Last Admin: 04/06/24 08:17 Dose: 250 mg Atorvastatin Calcium (Atorvastatin Calcium 20 Mg Tablet) 20 mg PO BEDTIME [facility] Last Admin: 04/05/24 20:15 Dose: 20 mg Bisacodyl (Bisacodyl 10 Mg Supp.Rect) 10 mg TN DAILY PRN PRN Reason: Constipation Calcium Carbonate (Calcium Carbonate 750 Mg Tab.Chew) 750 mg PO Q4H PRN PRN Reason: Heartburn Enoxaparin Sodium (Enoxaparin Sodium 40 Mg/0.4 Ml Syringe) 40 mg SUBCUT Q24H [facility] Last Admin: 04/05/24 20:16 Dose: 40 mg Escitalopram Oxalate (Escitalopram Oxalate 10 Mg Tablet) 30 mg PO DAILY [facility] Last Admin: 04/06/24 08:17 Dose: 30 mg Ferrous Sulfate (Ferrous Sulfate 324 Mg Tablet.Dr) 324 mg PO DAILY [facility] Last Admin: 04/06/24 08:17 Dose: 324 mg Fluticasone/Vilanterol (Fluticasone/Vilanterol 100/25 Blst.W.Dev) 1 puff INHALE RDAILY [facility] Last Admin: 04/06/24 07:56 Dose: 1 puff Furosemide (Furosemide 20 Mg Tablet) 10 mg PO DAILY [facility]; Protocol Last Admin: 04/06/24 08:15 Dose: 10 mg Gabapentin (Gabapentin 300 Mg Capsule) 300 mg PO BID [facility] Last Admin: 04/06/24 08:18 Dose: 300 mg Guaifenesin/Dextromethorphan (Guaifenesin Dm 100/10/5 Ml 5 Ml Syrup) 10 ml PO Q4H PRN PRN Reason: Cough Piperacillin Sod/Tazobactam (Sod 3.375 gm/ Sodium Chloride) 50 mls @ 100 mls/hr IV Q6H [facility] Last Infusion: 04/06/24 14:25 Dose: 0 mls/hr Vancomycin HCl 1,250 mg/ (Sodium Chloride) 250 mls @ 166.667 mls/hr IV Q24H [facility] Insulin Human Lispro (Insulin Lispro 100 Unit/Ml 3 Ml Vial) 0 unit SUBCUT QIDACHS [facility]; Protocol Last Admin: 04/06/24 11:15 Dose: Not Given Loperamide HCl (Loperamide Hcl 2 Mg Capsule) 2 mg PO Q2H PRN PRN Reason: Diarrhea Magnesium Hydroxide (Milk Of Magnesia 30 Ml Oral.Susp) 30 ml PO DAILY PRN PRN Reason: Constipation Magnesium Hydroxide (Milk Of Magnesia 30 Ml Oral.Susp) 30 ml PO DAILY PRN PRN Reason: Constipation Melatonin (Melatonin 3 Mg Tablet) 6 mg PO BEDTIME PRN PRN Reason: Insomnia Morphine Sulfate (Morphine Sulfate 2 Mg/Ml Cartridge) 2 mg IVPUSH Q4H PRN; Protocol PRN Reason: Pain, Severe (Pain Scale 7-10) Omeprazole (Omeprazole 20 Mg Capsule.Dr) 20 mg PO DAILY@0630 [facility] Last Admin: 04/06/24 05:24 Dose: 20 mg Ondansetron HCl (Ondansetron Hcl 4 Mg/2 Ml Vial) 4 mg IVPUSH Q8H PRN PRN Reason: Nausea and Vomiting Last Admin: 04/05/24 20:15 Dose: 4 mg Oxymetazoline HCl (Oxymetazoline Hcl 0.05 % Nasal 15 Ml Secor) 1 spray NOSTRIL- B Q12H PRN PRN Reason: nasal bleeding Pharmacy Consult (Consult Rx Vancomycin Dosing) 1 each MISCELLANE DAILY PRN PRN Reason: Consult order Polyethylene Glycol (Polyethylene Glycol 3350 17 Gm Powd.Pack) 17 gm PO DAILY [facility] Last Admin: 04/06/24 08:18 Dose: 17 gm Polyethylene Glycol (Polyethylene Glycol 3350 17 Gm Powd.Pack) 17 gm PO Q3D PRN PRN Reason: Constipation Ropinirole HCl (Ropinirole Hcl 2 Mg Tablet) 2 mg PO BID [facility] Last Admin: 04/06/24 08:15 Dose: 2 mg Senna/Docusate Sodium (Sennosides/Docusate Sodium Tablet) 1 tab PO BID PRN PRN Reason: Constipation Sodium Biphosphate/Sodium Phosphate (Sodium Phosphate,[place]-Dibasic 133 Ml Enema) 118 ml TN DAILY PRN PRN Reason: Constipation Sodium Chloride (0.9 % Sodium Chloride Flush 3 Ml Syringe) 3 ml IVFLUSH QSHIFT [facility] Last Admin: 04/06/24 08:22 Dose: 3 ml Sodium Chloride (Sodium Chloride 0.65 % Nasal 44 Ml Sprbtl) 2 spray NOSTRIL-B BID [facility] Last Admin: 04/06/24 09:06 Dose: Not Given Tramadol HCl (Tramadol Hcl 50 Mg Tablet) 50 mg PO BEDTIME [facility] Last Admin: 04/05/24 22:12 Dose: 50 mg Tramadol HCl (Tramadol Hcl 50 Mg Tablet) 50 mg PO BID PRN PRN Reason: Pain, Moderate(Pain Scale 4-6) Last Admin: 04/06/24 14:00 Dose: 50 mg Trazodone HCl (Trazodone Hcl 50 Mg Tablet) 12.5 mg PO BID PRN PRN Reason: anxiety/agitation Last Admin: 04/05/24 20:15 Dose: 12.5 mg Trazodone HCl (Trazodone Hcl 25 Mg Halftab) 25 mg PO BEDTIME [facility] Last Admin: 04/06/24 00:37 Dose: Not Given Vitamin D (Cholecalciferol (Vitamin D3) 25 Mcg Tablet) 50 mcg PO DAILY [facility] Last Admin: 04/06/24 08:17 Dose: 50 mcg Home Medications ?Medication ?Instructions ?Recorded ?Confirmed ?Last Taken ?Type Saccharomyces boulardii 250 mg 250 mg PO BID 04/05/24 04/05/24 Unknown History capsule (Probiotic (S.boulardii)) acetaminophen 325 mg tablet 650 mg PO Q6H PRN Fever Or Pain 04/05/24 04/05/24 Unknown History (Tylenol) albuterol sulfate 2.5 mg/3 mL 2.5 mg inhalation Q6H PRN 04/05/24 04/05/24 Unknown History (0.083 %) solution for nebulization Shortness Of Breath Or Wheezing amiodarone 200 mg tablet 200 mg PO DAILY 04/05/24 04/05/24 Unknown History ascorbic acid (vitamin C) 250 mg 250 mg PO DAILY 04/05/24 04/05/24 Unknown History tablet (Vitamin C) atorvastatin 20 mg tablet 20 mg PO BEDTIME 04/05/24 04/05/24 Unknown History bisacodyl 10 mg rectal suppository 10 mg TN DAILY PRN Constipation 04/05/24 04/05/24 Unknown History (Dulcolax (bisacodyl)) cephalexin 250 mg capsule 250 mg PO Q6H 04/05/24 04/05/24 Unknown History cholecalciferol (vitamin D3) 25 50 mcg PO DAILY 04/05/24 04/05/24 Unknown History mcg (1,000 unit) tablet (Vitamin D3) dextromethorphan-guaifenesin 10 10 ml PO Q4H PRN Cough 04/05/24 04/05/24 Unknown History mg-100 mg/5 mL oral syrup diclofenac sodium 1 % topical gel 4 g topical DAILY 04/05/24 04/05/24 Unknown History diclofenac sodium 1 % topical gel 4 g topical Q6H PRN neck pain 04/05/24 04/05/24 Unknown History escitalopram oxalate 10 mg tablet 30 mg PO DAILY 04/05/24 04/05/24 Unknown History ferrous sulfate 325 mg (65 mg 325 mg PO DAILY 04/05/24 04/05/24 Unknown History iron) tablet,delayed release fluticasone 250 mcg-salmeterol 50 1 ea inhalation BID 04/05/24 04/05/24 Unknown History mcg/dose blistr powdr for inhalation furosemide 20 mg tablet 10 mg PO DAILY 04/05/24 04/05/24 Unknown History gabapentin 300 mg capsule 300 mg PO BID 04/05/24 04/05/24 Unknown History loperamide 2 mg tablet 2 mg PO Q2H PRN Diarrhea 04/05/24 04/05/24 Unknown History magnesium hydroxide 400 mg/5 mL 30 ml PO DAILY PRN Constipation 04/05/24 04/05/24 Unknown History oral suspension (Milk of Magnesia) nystatin 100,000 unit/gram topical 1 appl topical DAILY 04/05/24 04/05/24 Unknown History powder oxymetazoline 0.05 % nasal mist 1 spray intranasal Q12H PRN nasal 04/05/24 04/05/24 Unknown History (Afrin (oxymetazoline)) bleeding pantoprazole 40 mg tablet,delayed 40 mg PO DAILY@62904/05/24 04/05/24 Unknown History release polyethylene glycol 3350 17 gram 17 g PO DAILY 04/05/24 04/05/24 Unknown History oral powder packet (Miralax) polyethylene glycol 3350 17 gram 17 g PO Q3D PRN Constipation 04/05/24 04/05/24 Unknown History oral powder packet (Miralax) ropinirole 2 mg tablet 2 mg PO BID 04/05/24 04/05/24 Unknown History sennosides 8.6 mg-docusate sodium 1 tab-cap PO BID PRN Constipation 04/05/24 04/05/24 Unknown History 50 mg tablet (Senna with Docusate Sodium) sodium chloride 0.65 % nasal spray 2 spray intranasal BID 04/05/24 04/05/24 Unknown History aerosol (Saline Nasal) sodium phosphates 19 gram-7 118 ml TN DAILY PRN Constipation 04/05/24 04/05/24 Unknown History gram/118 mL enema (Fleet Enema) tramadol 50 mg tablet 50 mg PO BEDTIME 04/05/24 04/05/24 Unknown History tramadol 50 mg tablet 50 mg PO BID PRN Pain 04/05/24 04/05/24 Unknown History trazodone 50 mg tablet 12.5 mg PO BID PRN 04/05/24 04/05/24 Unknown History anxiety/agitation trazodone 50 mg tablet 25 mg PO BEDTIME 04/05/24 04/05/24 Unknown History Physical Exam 2 Vital Signs: Vital Signs: Last Vital Signs Temp 96.9 F 04/06/24 08:00 Pulse 50 04/06/24 08:00 Resp 16 04/06/24 08:00 BP 116/55 L 04/06/24 08:00 Pulse Ox 97 04/06/24 08:00 O2 Del Method Room Air 04/06/24 08:00 BMI result Body Mass Index 31.2 Const: General: cooperative HEENT: Head: Yes normal to inspection Face and sinus: Yes normal facial exam Mouth: Normal oral and palatal mucosa present Teeth and gingiva: d entition normal Eyes: General: appearance normal, both eyes and all related structures P upils: Equal, round and reactive pupils present Resp: Effort & Inspection: normal respiratory effort Cardio: Rate: regular rate Rhythm: regular rhythm GI: Palpation (GI): Soft to palpation and nontender : General: Yes no CVA tenderness Back/Spine/Pelvis: Back: no CVA tenderness Skin: General skin exam: no rashes or lesions noted Neuro: General: moves all extremities Cranial nerves: Yes Equal, round and reactive pupils present Extrem: Other: reddened second toe area Psych: Appearance: grossly normal Results Labs 04/06/24 05:44 04/06/24 05:44 Labs: Short CBC 04/06/24 Range/Units 05:44 WBC 4.9 (4.8-10.8) X10*3/uL Hgb 12.2 (12.0-16.0) g/dl Hct 37.6 (37.0-47.0) % Plt Count 194 (160-400) X10*3/uL BMP 04/06/24 05:44 Sodium 142 Potassium 4.1 Chloride 110 H Carbon Dioxide 22 BUN 14 Creatinine 0.82 Calcium 9.3 Assessment and Plan (1) Cellulitis: Status: Acute (2) Osteomyelitis: Status: Acute Plan There is OM concern and concern over gram negative and anerobes. Would give six weeks IV Ertapenem likely pending cultures.
[2024-04-06 19:55] VITALS: BP 151/63; PULSE 54; RESP 18; TEMP 36.3; O2SAT 100
[2024-04-06 20:09] LABS: Glucose, Whole Blood 96 mg/dL (60-115)
[2024-04-06] MEDS: Melatonin 3 MG TABLET 6 MG PO (20:22)
[2024-04-06] MEDS: Atorvastatin Calcium 20 MG TABLET PO (20:22)
[2024-04-06] MEDS: traZODone HCL 25 MG HALFTAB PO (20:22)
[2024-04-07] MEDS: Morphine Sulfate 2 MG/ML CARTRIDGE IVPUSH (01:53)
[2024-04-07] MEDS: Piperacillin Sodium/Tazobactam 3.375 GM in 0.9 % Sodium Chloride 50 ML IV (02:00)
[2024-04-07 03:39] VITALS: BP 130/62; PULSE 54; RESP 17; TEMP 36; O2SAT 94
[2024-04-07] MEDS: Omeprazole 20 MG CAPSULE.DR PO (05:35)
[2024-04-07 06:35] LABS: Creatinine Clr Calc Pharmacy 52.2; Estimated Glomerular Filt Rate > 60
[2024-04-07 07:37] VITALS: BP 144/64; PULSE 50; RESP 17; TEMP 36.2; O2SAT 97
[2024-04-07 07:46] LABS: Glucose, Whole Blood 82 mg/dL (60-115)
[2024-04-07] MEDS: Fluticasone/Vilanterol 100/25 BLST.W.DEV 1 PUFF INHALE (07:56)
[2024-04-07 07:59] VITALS: PULSE 50; RESP 17; O2SAT 96
[2024-04-07] MEDS: Ascorbic Acid 250 MG TABLET PO (08:05)
[2024-04-07] MEDS: Cholecalciferol (Vitamin D3) 25 MCG TABLET 50 MCG PO (08:05)
[2024-04-07] MEDS: Ferrous Sulfate 324 MG TABLET.DR PO (08:05)
[2024-04-07] MEDS: rOPINIRole HCL 2 MG TABLET PO ×2 (08:05→19:19)
[2024-04-07] MEDS: Escitalopram Oxalate 10 MG TABLET 30 MG PO (08:05)
[2024-04-07] MEDS: Amiodarone HCL 200 MG TABLET PO (08:05)
[2024-04-07] MEDS: Gabapentin 300 MG CAPSULE PO ×2 (08:05→19:20)
[2024-04-07] MEDS: Furosemide 20 MG TABLET 10 MG PO (08:06)
[2024-04-07] MEDS: 0.9 % Sodium Chloride Flush 3 ML SYRINGE IVFLUSH ×2 (08:08→16:07)
[2024-04-07] MEDS: polyethylene glycoL 3350 17 GM POWD.PACK PO (08:13)
--- NOTE | 2024-04-07 13:50 | P.CDIM_ITS ---
PROVIDER RESPONSE TEXT: To clarify, the appropriate diagnosis supported by the clinical indicators: Acute QUERY TEXT: PHYSICIAN'S DOCUMENTATION REQUEST Date of Query: 04/07/2024 10:00 AM EDT Patient Name: Shreya Calvert Admit Date: 04/05/2024 Dear Jalen Oakley, A review of the medical record indicates additional documentation may be needed. Please review below and update the documentation accordingly. Clinical Indicators: per Hospitalist Progress Note 04/06/24: Osteomyelitis Left 1st Metatarsal XR showing possible 2nd Metatarsal head OM On IV ATB Clarify which of the following accurately represents the acuity of the Osteomyelitis. Possible options might include: Acute Acute on chronic Compensated Chronic stable condition Remission Other (explain) Clinically unable to determine (explain) Thank you, Winsome Green RN Use of terms such as suspected, likely, concern for, or probable (associated with a specific diagnosi s that is being evaluated, monitored, or treated as if it exists) are acceptable and can be coded in the inpatient se tting, when documented at the time of discharge. Please use your independent medical judgment in providing your response. THIS QUERY IS PART OF THE PERMANENT MEDICAL RECORD
[2024-04-07 14:27] LABS: Glucose, Whole Blood 88 mg/dL (60-115)
--- NOTE | 2024-04-07 14:40 | P.PNIM_ITS ---
Subjective Subjective Date of Service: 04/07/24 Interval History: seen and evaluated foot improved significantly failed PICC line placement, to retry tomorrow no other events Review of Systems Review of Systems: Yes all other systems are reviewed and are negative Physical Exam 2 Vital Signs: Vital Signs: Last Vital Signs Temp 97.2 F 04/07/24 07:37 Pulse 50 04/07/24 07:59 Resp 17 04/07/24 07:59 BP 144/64 H 04/07/24 07:37 Pulse Ox 97 04/07/24 07:37 O2 Del Method Room Air 04/07/24 07:37 BMI result Body Mass Index 31.2 Const: Other: Constitutional : Awake, interactive, not in distress Neck : Normal inspection, Supple Cardiovascular : RRR, no JVP, no lower extremity edema Respiratory : good bilateral air entry, no crackles, wheezes or rhonchi Gastrointestinal: soft, lax, Normal bowel sounds, Non tender Skin : Warm, Dry, LLE erythema and 2nd toe swelling and redness Neurological : Alert & oriented x3, No focal deficit Objective Data Active Medications Acetaminophen (Acetaminophen 325 Mg Tablet) 650 mg PO Q6H PRN PRN Reason: Pain, Mild (Pain Scale 1-3), fever or headache Last Admin: 04/06/24 05:24 Dose: 650 mg Documented By: HALIMA Albuterol Sulfate (Albuterol Sulfate (0.083%) 2.5 Mg/3 Ml Vial.Neb) 2.5 mg INHALE Q6H PRN PRN Reason: Shortness Of Breath Or Wheezing Amiodarone HCl (Amiodarone Hcl 200 Mg Tablet) 200 mg PO DAILY [facility] Last Admin: 04/07/24 08:05 Dose: 200 mg Documented By: SAJI Ascorbic Acid (Ascorbic Acid 250 Mg Tablet) 250 mg PO DAILY [facility] Last Admin: 04/07/24 08:05 Dose: 250 mg Documented By: SAJI Atorvastatin Calcium (Atorvastatin Calcium 20 Mg Tablet) 20 mg PO BEDTIME [facility] Last Admin: 04/06/24 20:22 Dose: 20 mg Documented By: MORELIA Bisacodyl (Bisacodyl 10 Mg Supp.Rect) 10 mg VT DAILY PRN PRN Reason: Constipation Calcium Carbonate (Calcium Carbonate 750 Mg Tab.Chew) 750 mg PO Q4H PRN PRN Reason: Heartburn Enoxaparin Sodium (Enoxaparin Sodium 40 Mg/0.4 Ml Syringe) 40 mg SUBCUT Q24H [facility] Last Admin: 04/06/24 16:07 Dose: 40 mg Documented By: RIC Escitalopram Oxalate (Escitalopram Oxalate 10 Mg Tablet) 30 mg PO DAILY [facility] Last Admin: 04/07/24 08:05 Dose: 30 mg Documented By: SAJI Ferrous Sulfate (Ferrous Sulfate 324 Mg Tablet.) 324 mg PO DAILY [facility] Last Admin: 04/07/24 08:05 Dose: 324 mg Documented By: SAJI Fluticasone/Vilanterol (Fluticasone/Vilanterol 100/25 Blst.W.Dev) 1 puff INHALE RDAILY [facility] Last Admin: 04/07/24 07:56 Dose: 1 puff Documented By: NEREIDA Furosemide (Furosemide 20 Mg Tablet) 10 mg PO DAILY [facility]; Protocol Last Admin: 04/07/24 08:06 Dose: 10 mg Documented By: SAJI Gabapentin (Gabapentin 300 Mg Capsule) 300 mg PO BID [facility] Last Admin: 04/07/24 08:05 Dose: 300 mg Documented By: SAJI Guaifenesin/Dextromethorphan (Guaifenesin Dm 100/10/5 Ml 5 Ml Syrup) 10 ml PO Q4H PRN PRN Reason: Cough Meropenem 1 gm/ Sodium (Chloride) 100 mls @ 200 mls/hr IV Q8H [facility] Last Infusion: 04/07/24 09:26 Dose: Infused Documented By: SAJI Insulin Human Lispro (Insulin Lispro 100 Unit/Ml 3 Ml Vial) 0 unit SUBCUT QIDACHS [facility]; Protocol Last Admin: 04/07/24 07:47 Dose: Not Given Documented By: SAJI Non-Admin Reason: No Insulin Coverage Loperamide HCl (Loperamide Hcl 2 Mg Capsule) 2 mg PO Q2H PRN PRN Reason: Diarrhea Magnesium Hydroxide (Milk Of Magnesia 30 Ml Oral.Susp) 30 ml PO DAILY PRN PRN Reason: Constipation Magnesium Hydroxide (Milk Of Magnesia 30 Ml Oral.Susp) 30 ml PO DAILY PRN PRN Reason: Constipation Melatonin (Melatonin 3 Mg Tablet) 6 mg PO BEDTIME PRN PRN Reason: Insomnia Last Admin: 04/06/24 20:22 Dose: 6 mg Documented By: MORELIA Morphine Sulfate (Morphine Sulfate 2 Mg/Ml Cartridge) 2 mg IVPUSH Q4H PRN; Protocol PRN Reason: Pain, Severe (Pain Scale 7-10) Last Admin: 04/07/24 01:53 Dose: 2 mg Documented By: MORELIA Omeprazole (Omeprazole 20 Mg Capsule.Dr) 20 mg PO DAILY@0630 [facility] Last Admin: 04/07/24 05:35 Dose: 20 mg Documented By: MORELIA Ondansetron HCl (Ondansetron Hcl 4 Mg/2 Ml Vial) 4 mg IVPUSH Q8H PRN PRN Reason: Nausea and Vomiting Last Admin: 04/05/24 20:15 Dose: 4 mg Documented By: OPAL Oxymetazoline HCl (Oxymetazoline Hcl 0.05 % Nasal 15 Ml [place]) 1 spray NOSTRIL- B Q12H PRN PRN Reason: nasal bleeding Polyethylene Glycol (Polyethylene Glycol 3350 17 Gm Powd.Pack) 17 gm PO DAILY [facility] Last Admin: 04/07/24 08:13 Dose: 17 gm Documented By: SAJI Polyethylene Glycol (Polyethylene Glycol 3350 17 Gm Powd.Pack) 17 gm PO Q3D PRN PRN Reason: Constipation Ropinirole HCl (Ropinirole Hcl 2 Mg Tablet) 2 mg PO BID [facility] Last Admin: 04/07/24 08:05 Dose: 2 mg Documented By: SAJI Senna/Docusate Sodium (Sennosides/Docusate Sodium Tablet) 1 tab PO BID PRN PRN Reason: Constipation Sodium Biphosphate/Sodium Phosphate (Sodium Phosphate,Waller-Dibasic 133 Ml Enema) 118 ml VT DAILY PRN PRN Reason: Constipation Sodium Chloride (0.9 % Sodium Chloride Flush 3 Ml Syringe) 3 ml IVFLUSH QSHIFT [facility] Last Admin: 04/07/24 08:08 Dose: 3 ml Documented By: SAJI Sodium Chloride (Sodium Chloride 0.65 % Nasal 44 Ml Sprbtl) 2 spray NOSTRIL-B BID [facility] Last Admin: 04/07/24 08:14 Dose: Not Given Documented By: SAJI Non-Admin Reason: Patient Refused Tramadol HCl (Tramadol Hcl 50 Mg Tablet) 50 mg PO BEDTIME [facility] Last Admin: 04/06/24 20:22 Dose: 50 mg Documented By: MORELIA Tramadol HCl (Tramadol Hcl 50 Mg Tablet) 50 mg PO BID PRN PRN Reason: Pain, Moderate(Pain Scale 4-6) Last Admin: 04/06/24 14:00 Dose: 50 mg Documented By: RIC Trazodone HCl (Trazodone Hcl 50 Mg Tablet) 12.5 mg PO BID PRN PRN Reason: anxiety/agitation Last Admin: 04/05/24 20:15 Dose: 12.5 mg Documented By: OPAL Trazodone HCl (Trazodone Hcl 25 Mg Halftab) 25 mg PO BEDTIME [facility] Last Admin: 04/06/24 20:22 Dose: 25 mg Documented By: MORELIA Vitamin D (Cholecalciferol (Vitamin D3) 25 Mcg Tablet) 50 mcg PO DAILY [facility] Last Admin: 04/07/24 08:05 Dose: 50 mcg Documented By: SAJI Labs 04/06/24 05:44 04/07/24 05:37 Labs: Laboratory Results - last 24 hr 04/06/24 04/07/24 04/07/24 20:06 05:37 07:36 Hold Purple Top SEE NOTE Estim Creat Clear Calc 52.2 Estimated GFR > 60 POC Glucose 96 82 04/07/24 14:22 Hold Purple Top Estim Creat Clear Calc Estimated GFR POC Glucose 88 Microbiology Microbiology Results: Microbiology 04/05/24 14:09 Blood Culture - Preliminary Blood - Venous No growth after 24 hours. 04/05/24 14:09 Blood Culture - Preliminary Blood - Venous No growth after 24 hours. Assessment and Plan (1) Cellulitis: Status: Acute (2) Osteomyelitis: Status: Acute Plan An 88 years old lady with PMH of HTN, CAD, HLD, DMII, AFlutter not on AC? among others who presents from [facility] with worsening left 2nd toe pain, swelling and erythema for 1 week. Osteomyelitis Left 1st Metatarsal XR showing possible 2nd Metatarsal head OM PEnding cultures Continue IV Abx ID consult, Ertapenem for 6 weeks Picc line placement Follow Vancomycin trough Atrial flutter, Continue AMiodarone HLD, Statin EKTA, Iron supplement DMII, POC and SSI Asthma, continue inhalers DVT PPx Lovenox The patient will need overnight hospital stay pending clinical improvement , final cultures and discharge planning Quality Stroke Does the patient have a stroke diagnosis?: No VTE Prior VTE?: No VTE Risk Level:: Medical - moderate - high VTE Device Contraindication: Treatment Not Indicated VTE Drug Contraindication: N/A - Med Ordered
[2024-04-07 14:51] LABS: Vancomycin Random 11.8 mcg/mL (15-20)
[2024-04-07 15:17] VITALS: BP 144/65; PULSE 55; RESP 16; TEMP 36.4; O2SAT 94
[2024-04-07] MEDS: Enoxaparin Sodium 40 MG/0.4 ML SYRINGE SUBCUT (16:07)
[2024-04-07 17:44] LABS: Glucose, Whole Blood 83 mg/dL (60-115)
[2024-04-07] MEDS: traMADoL HCL 50 MG TABLET PO (19:19)
[2024-04-07] MEDS: Atorvastatin Calcium 20 MG TABLET PO (19:19)
[2024-04-07] MEDS: traZODone HCL 25 MG HALFTAB PO (19:19)
[2024-04-07] MEDS: Acetaminophen 325 MG TABLET 650 MG PO (19:24)
[2024-04-07 20:00] VITALS: BP 133/84; PULSE 84; RESP 16; TEMP 36.4; O2SAT 95
[2024-04-07 20:37] LABS: Glucose, Whole Blood 103 mg/dL (60-115)
[2024-04-08 04:00] VITALS: BP 131/60; PULSE 45; RESP 16; TEMP 36.2; O2SAT 96
[2024-04-08] MEDS: Omeprazole 20 MG CAPSULE.DR PO (05:58)
[2024-04-08 07:11] LABS: Creatinine Clr Calc Pharmacy 53.6; Estimated Glomerular Filt Rate > 60
[2024-04-08 07:21] LABS: Glucose, Whole Blood 85 mg/dL (60-115)
[2024-04-08 07:28] VITALS: BP 143/64; PULSE 46; RESP 17; TEMP 36.1; O2SAT 99
[2024-04-08] MEDS: polyethylene glycoL 3350 17 GM POWD.PACK PO (07:44)
[2024-04-08] MEDS: Escitalopram Oxalate 10 MG TABLET 30 MG PO (07:44)
[2024-04-08] MEDS: Gabapentin 300 MG CAPSULE PO (07:44)
[2024-04-08] MEDS: rOPINIRole HCL 2 MG TABLET PO (07:44)
[2024-04-08] MEDS: Cholecalciferol (Vitamin D3) 25 MCG TABLET 50 MCG PO (07:44)
[2024-04-08] MEDS: Ascorbic Acid 250 MG TABLET PO (07:44)
[2024-04-08] MEDS: Ferrous Sulfate 324 MG TABLET.DR PO (07:44)
[2024-04-08] MEDS: 0.9 % Sodium Chloride Flush 3 ML SYRINGE IVFLUSH ×2 (07:45→17:11)
[2024-04-08] MEDS: Furosemide 20 MG TABLET 10 MG PO (07:45)
[2024-04-08] MEDS: Amiodarone HCL 200 MG TABLET PO (07:45)
[2024-04-08] MEDS: Fluticasone/Vilanterol 100/25 BLST.W.DEV 1 PUFF INHALE (07:49)
[2024-04-08 07:52] VITALS: PULSE 49; RESP 18; O2SAT 99
--- NOTE | 2024-04-08 10:37 | MHC.CM.PN ---
Addendum entered by Glendy Goodwin RN 04/08/24 15:35: BLS transport scheduled for 5pm to [facility]. RN aware. Addendum entered by Glendy Goodwin RN 04/08/24 13:53: CM spoke with daughter/HCP, Laila, and updated on dc plan. Daughter is agreeable to plan. All questions answered. Original Note: Per MD rounds patient may dc today after PICC placement. Will need 6 weeks IV ertapenem. Facility updated. CM will continue to follow.
[2024-04-08 11:36] LABS: Glucose, Whole Blood 92 mg/dL (60-115)
[2024-04-08] MEDS: Ertapenem Sodium 1 GM in 0.9 % Sodium Chloride 50 ML IV (12:46)
--- NOTE | 2024-04-08 14:02 | P.DS_ITS ---
DS: Providers Provider Date of Service: 04/08/24 Date of admission: 04/05/24 15:14 Primary care physician: Rex Bass MD Consults: 04/05/24 16:18 Consult to Infectious Diseases Routine Consulting Provider: [facility] Reason for consultation: osteomyelitis for eval 04/06/24 14:14 Consult to Wound Care Routine Reason for consultation: Pressure ulcer 2nd toe L foot DS: Diagnosis Discharge Diagnosis (1) Cellulitis: Status: Acute (2) Osteomyelitis: Status: Acute (3) Bunion of great toe of left foot: Status: Acute DS: Summary Hospital Course Hospital Course: Admission note HPI An 88 years old lady with PMH of HTN, CAD, HLD, DMII among others who presents from [facility] with worsening left 2nd toe pain, swelling and erythema for 1 week. The patient reports worsening pain with no fever or chills. She was started on oral antibiotics but did not improved In ED an XR was done showing suspecion of osteomyelitis. Started on IV antibiotics and admitted for further work up and management. Hospital course Osteomyelitis Left 1st Metatarsal XR showing possible 1st Metatarsal head OM with negative blood culture who was started on IV antibiotics of Vancomycin and Zosyn. evaluated by ID specialist who recommended 6 weeks of IV Ertapenem. The cellulitis resolved and her pain improved by Oxycodone 5 mg PRN. Will continue Antibiotics for another 39 days. to finish by 05/18/2024. she will need to follow with Podiatry for evaluation of Lt big toe bunion and possible fixation of it. Discharge plan Continue antibiotics as prescribed Increase physical activity as tolerated To follow up with Podiatry as outpatient for Bunion treatment and possible surgery with Dr Green: [phone] Oxycodone for pain as needed Time Attestation Discharge Coordination Time (in mins): 37 Quality: Safe Use of Opioids Does Pt have an Active Cancer Diagnosis on the Problem List?: No Quality: Stroke Does the patient have a stroke diagnosis?: No Physical Exam Vital Signs: Vital Signs: Last Vital Signs Temp 97.0 F 04/08/24 07:28 Pulse 49 L 04/08/24 07:52 Resp 18 04/08/24 07:52 BP 143/64 H 04/08/24 07:28 Pulse Ox 99 04/08/24 07:28 O2 Del Method Room Air 04/08/24 07:28 BMI result Body Mass Index 31.2 Const: Other: Constitutional : Awake, interactive, not in distress Neck : Normal inspection, Supple Cardiovascular : RRR, no JVP, no lower extremity edema Respiratory : good bilateral air entry, no crackles, wheezes or rhonchi Gastrointestinal: soft, lax, Normal bowel sounds, Non tender Skin : Warm, Dry, LLE erythema resolved with 2nd toe significantly improved swelling and redness , overriding Lt big toe over 2nd toe. Neurological : Alert & oriented x3, No focal deficit DS: Data Data Completed and Pending Labs on day of discharge: Laboratory Results - last 24 hr 04/07/24 04/07/24 04/07/24 14:22 14:25 17:40 Creatinine Estim Creat Clear Calc Estimated GFR POC Glucose 88 83 Random Vancomycin 11.8 L 04/07/24 04/08/24 04/08/24 20:32 06:06 07:15 Creatinine 0.74 Estim Creat Clear Calc 53.6 Estimated GFR > 60 POC Glucose 103 85 Random Vancomycin 04/08/24 11:25 Creatinine Estim Creat Clear Calc Estimated GFR POC Glucose 92 Random Vancomycin Preliminary micro results at discharge 04/05/24 14:09 Blood Culture - Preliminary Blood - Venous No growth after 48 hours. 04/05/24 14:09 Blood Culture - Preliminary Blood - Venous No growth after 48 hours. Imaging XR Foot : Radiologist's impression: ITS Impressions Foot X-Ray 04/05/24 14:27 IMPRESSION: * Subtle radiolucency involving the head of the first metatarsal head raising concern for possible osteomyelitis. Please correlate with patient's clinical presentation. Bone scan or MRI could be utilized for further investigation if clinically indicated. * Amputation mid tarsal first toe. * Hammertoes. Discharge Plan Discharge Anticipated Discharge Date/Time: 04/08/24 13:54 Patient Disposition: [facility] Discharge Diagnosis: Osteomyelitis 1st metatarsal head Referrals: Rex Bass MD [Primary Care Provider] - 1 Week Jerardo Green MD [Physician] - 1 Month (Left foot big toe Bunion and overriding next toe causing ulceration and Osteomyelitis. On IV Antibiotics for now. needs evaluation for Bunion fixation. ) Discharge Medications: New oxycodone 5 mg tablet 5 mg PO Q6H PRN (Reason: pain (scale score 7-10)) Qty: 20 0RF Rx Instructions: Partial Fill upon patient request. ertapenem 1 gram recon soln 1 g IV Q24H Qty: 39 0RF Continued fluticasone propion-salmeterol 250-50 mcg/dose blister with device 1 ea inhalation BID acetaminophen [Tylenol] 325 mg Tablet 650 mg PO Q6H PRN (Reason: Fever Or Pain) Rx Instructions: NTE 3 G / 24 HRS albuterol sulfate 2.5 mg /3 mL (0.083 %) Solution For Nebulization 2.5 mg INHALATION Q6H PRN (Reason: Shortness Of Breath Or Wheezing) amiodarone 200 mg tablet 200 mg PO DAILY Afrin (oxymetazoline) 0.05 % Mist 1 spray INTRANASAL Q12H PRN (Reason: nasal bleeding) atorvastatin 20 mg tablet 20 mg PO BEDTIME ascorbic acid (vitamin C) [Vitamin C] 250 mg Tablet 250 mg PO DAILY cholecalciferol (vitamin D3) [Vitamin D3] 25 mcg (1,000 unit) Tablet 50 mcg PO DAILY diclofenac sodium 1 % gel 4 g topical Q6H PRN (Reason: neck pain) diclofenac sodium 1 % gel 4 g topical DAILY trazodone 50 mg tablet 12.5 mg PO BID PRN (Reason: anxiety/agitation) Rx Instructions: END DATE: 04/16/24 trazodone 50 mg tablet 25 mg PO BEDTIME polyethylene glycol 3350 [Miralax] 17 gram Powder In Packet 17 g PO Q3D PRN (Reason: Constipation) polyethylene glycol 3350 [Miralax] 17 gram Powder In Packet 17 g PO DAILY sennosides-docusate sodium [Senna with Docusate Sodium] 8.6-50 mg Tablet 1 tab-cap PO BID PRN (Reason: Constipation) loperamide 2 mg Tablet 2 mg PO Q2H PRN (Reason: Diarrhea) Rx Instructions: administer after each loose stool until symptoms controlled; do not exceed 16 mg per 24 hrs dextromethorphan-guaifenesin 10-100 mg/5 mL Syrup 10 ml PO Q4H PRN (Reason: Cough) magnesium hydroxide [Milk of Magnesia] 400 mg/5 mL Suspension 30 ml PO DAILY PRN (Reason: Constipation) bisacodyl [Dulcolax (bisacodyl)] 10 mg Suppository 10 mg IA DAILY PRN (Reason: Constipation) ropinirole 2 mg tablet 2 mg PO BID pantoprazole 40 mg tablet,delayed release (DR/EC) 40 mg PO DAILY@0630 [place] Enema 19-7 gram/118 mL Enema 118 ml IA DAILY PRN (Reason: Constipation) gabapentin 300 mg Capsule 300 mg PO BID furosemide 20 mg Tablet 10 mg PO DAILY nystatin 100,000 unit/gram powder 1 appl topical DAILY ferrous sulfate 325 mg (65 mg iron) Tablet,Delayed Release (Dr/Ec) 325 mg PO DAILY escitalopram oxalate 10 mg tablet 30 mg PO DAILY Saline Nasal 0.65 % Aerosol,[place] 2 spray INTRANASAL BID Saccharomyces boulardii [Probiotic (S.boulardii)] 250 mg Capsule 250 mg PO BID Held tramadol 50 mg tablet 50 mg PO BID PRN (Reason: Pain) Hold Instructions: hold while on Oxycodone tramadol 50 mg tablet 50 mg PO BEDTIME Hold Instructions: hold while taking Oxycodone Discontinued cephalexin 250 mg capsule 250 mg PO Q6H Rx Instructions: END DATE: 04/08/24 Discharge Orders: Discharge Order (Routine); Ordered 04/08/24 Ordered By: Jalen Oakley Diet: Advance to usual diet Activity on Discharge: As tolerated Stand Alone Forms: Patient Portal Discharge page Print Language: [place] Care Plan Goals: Continue antibiotics as prescribed Increase physical activity as tolerated To follow up with Podiatry as outpatient for Bunion treatment and possible surgery with Dr Green: [phone] Oxycodone for pain as needed Health Concerns: Read below Plan of Treatment: Read below Assessment: Read below
--- NOTE | 2024-04-08 15:35 | HO.PICC ---
PICC Line Insertion NPICC Diagnosis: Osteomyelitis Indication: FDC antibiotics Pertinent Labs: Reviewed Technique: Following informed consent including risks, benefits and alternatives and using sterile technique including cap and mask, sterile gown, glove and drape, the right arm was prepped and draped in the usual sterile fashion of full barrier technique with CHG. Following completion of [place] Protocol the skin and soft tissues were anesthetized with 1% Lidocaine plain. Using ultrasound guidance, the right brachial vein access was obtained by TAE Fields. Over an 0.018 wire through peel-away sheath, a single lumern 4 eritrean PASV PICC line was positioned. Catheter length is 37 cm internal length, the external length is at the 0 cm external rimma, for a total trimmed length of 37 cm. The procedure was performed in S272. Tip verification was performed by Mara Alvarez with Sumanth 3CG. Tip located in SVC. Ultrasound was used to document vein patency and for needle entry. A formal ultrasound picture and cardiac rhythm strip was recorded. Vascular Tube Machine Operator Helper has released the line for use and it is currently dressed with a StatLock, Tegaderm, and CHG disc. Verification has been performed for blood return and line patency. Arm Circumference: 31 cm Equipment: jellyfish PowerPICC SOLO Catheter with [place] 3CG Tip Catheter Type: 4 eritrean single lumen PASV PICC Lot #: [id number]
[2024-04-08 16:01] VITALS: BP 141/64; PULSE 52; RESP 18; TEMP 36.2; O2SAT 98
[2024-04-08 17:02] LABS: Glucose, Whole Blood 96 mg/dL (60-115)
[2024-04-08] MEDS: Acetaminophen 325 MG TABLET 650 MG PO (17:11)
[2024-04-08] MEDS: Enoxaparin Sodium 40 MG/0.4 ML SYRINGE SUBCUT (17:11)
--- NOTE | 2024-04-15 18:41 | P.CDIM_ITS ---
PROVIDER RESPONSE TEXT: To clarify, the appropriate diagnosis supported by the clinical indicators: Pressure (decubitus) ulcer QUERY TEXT: PHYSICIAN'S DOCUMENTATION REQUEST Date of Query: 04/14/2024 07:28 AM EDT Patient Name: Shreya Calvert Admit Date: 04/05/2024 Dear Jalen Oakley, A review of the medical record indicates additional documentation may be needed. Please review below and update the documentation accordingly. Clinical Indicators: Per Wound note 04/06/24: Left 2nd Toe: Unstageable Pressure Injury Present on Admission [employer] for moisture management Based on the above, could you please provide further information regarding the ulcer/wound: Diabetic ulcer Pressure (decubitus) ulcer Traumatic wound Other (explain) Clinically unable to determine (explain) Thank you, Winsome Green RN Use of terms such as suspected, likely, concern for, or probable (associated with a specific diagnosi s that is being evaluated, monitored, or treated as if it exists) are acceptable and can be coded in the inpatient se tting, when documented at the time of discharge. Please use your independent medical judgment in providing your response. THIS QUERY IS PART OF THE PERMANENT MEDICAL RECORD
== END 2024-04-08 18:38 | DRG 638 ==
LOC: HO.ED 14:57 → HO.EDOVER 15:54 → HO.S3 19:51
PROVIDERS: Physician Assistant; Admitting Provider Student in an Organized Health Care Education/Training Program; Emergency Provider Emergency Medicine; PCP Family Medicine; Visit Provider Student in an Organized Health Care Education/Training Program
DX: E11.69 Type 2 diabetes mellitus with other specified complication (principal); I48.92 Unspecified atrial flutter; M86.172 Other acute osteomyelitis, left ankle and foot; L03.032 Cellulitis of left toe; L89.890 Pressure ulcer of other site, unstageable; D50.9 Iron deficiency anemia, unspecified; J44.9 Chronic obstructive pulmonary disease, unspecified; M21.612 Bunion of left foot; I25.10 Atherosclerotic heart disease of native coronary artery without angina pectoris; E78.00 Pure hypercholesterolemia, unspecified; Z95.1 Presence of aortocoronary bypass graft; Z79.51 Long term (current) use of inhaled steroids; Z79.899 Other long term (current) drug therapy
CPT/HCPCS: 36415; 36573; 73630; 80048; 80076; 80202; 82565; 82947; 83605; 83880; 85025; 85027; 85610; 85652; 86140; 87040; 94640; 99285; C1751; J1335; J1650; J2185; J2270; J2405; J2543; J3370; J3371

== ENCOUNTER → 2024-04-05 15:14 | Outpatient (BNV) | payer MEDICARE, SELFPAY | PROVIDERS: Admitting Provider Student in an Organized Health Care Education/Training Program; Emergency Provider Emergency Medicine; PCP Family Medicine; Visit Provider Student in an Organized Health Care Education/Training Program | DX: M21.612 Bunion of left foot (principal); L03.116 Cellulitis of left lower limb; M86.172 Other acute osteomyelitis, left ankle and foot; I48.92 Unspecified atrial flutter | CPT/HCPCS: 99223; 99232; 99239 ==

== ENCOUNTER → 2024-04-05 15:14 | Outpatient (BNV) | payer MEDICARE, SELFPAY | PROVIDERS: Admitting Provider Student in an Organized Health Care Education/Training Program; Emergency Provider Emergency Medicine; PCP Family Medicine; Visit Provider Internal Medicine | DX: L03.90 Cellulitis, unspecified (principal); M86.9 Osteomyelitis, unspecified | CPT/HCPCS: 99222 ==

== ENCOUNTER 2024-05-18 15:01 | Outpatient (AMB) | payer MEDICARE, MEDICAID, SELFPAY ==
[2024-05-18 15:22] VITALS: PULSE 65; TEMP 36.6; O2SAT 98
--- NOTE | 2024-05-18 15:22 | A.OFFVIS_ITS ---
Vital Signs 05/18/24 15:22 Pulse 65 Pulse Source Pulse Oximeter Temp 97.9 F Temp Source Oral Pulse Oximetry (%) 98 Intake Visit Reasons: [facility] reff /toe infection ertapenem end 05/17/2024 Allergies lisinopril Allergy (Unknown, Uncoded 04/05/24 13:26) Unknown HPI HPI [facility] reff /toe infection ertapenem end 05/17/2024: Details: She has complaints. She has left second toe infection and finished antibiotics on 05/17. She has felt well and has no ongoing infection. [facility] Medical History Coronary artery disease Hypertension Hypercholesteremia Chronic renal failure Palpitations Anxiety Depression Diabetes mellitus, type 2 COPD (chronic obstructive pulmonary disease) Surgical History H/O coronary artery bypass surgery Social History Household Members: None Housing: Custodial Do you presently have visiting nurse or other home services: No Alcohol intake: never Patient Tobacco Use Status: Never used Tobacco service: No Review of Systems Const All systems reviewed & are unremarkable except as noted in HPI and below Physical Exam Vital Signs: Last Vital Signs Temp 97.9 F 05/18/24 15:22 Pulse 65 05/18/24 15:22 Pulse Ox 98 05/18/24 15:22 Const General: cooperative HEENT Head: Yes normal to inspection Face and sinus: Yes normal facial exam Mouth: Normal oral and palatal mucosa present Teeth and gingiva: dentition normal Eyes General: appearance normal, both eyes and all related structures Pupils: Equal, round and reactive pupils present Resp Effort & Inspection: normal respiratory effort Cardio Rate: regular rate Rhythm: regular rhythm GI Palpation (GI): Soft to palpation and nontender General: Yes no CVA tenderness Back/Spine/Pelvis Back: no CVA tenderness Skin General skin exam: no rashes or lesions noted Neuro General: moves all extremities Cranial nerves: Yes Equal, round and reactive pupils present Extrem Other: toe improving Psych Appearance: grossly normal Assessment & Plan Assessment & Plan (1) Osteomyelitis: Comment: Toe is stable at this time Code(s): M86.9 - Osteomyelitis, unspecified Category: Medical Plan: No further antibiotics at this time. Orders: Orders IR cvc remove any age 0805/18/24 M86.9 - Osteomyelitis, unspecified Coding Level of Care Code Est Pt Level 3 (26586) Diagnoses Osteomyelitis M86.9
== END 2024-05-18 16:14 | disposition home or self-care (01) ==
PROVIDERS: PCP Family Medicine; Visit Provider Internal Medicine
DX: M86.9 Osteomyelitis, unspecified (principal)
CPT/HCPCS: 99213

== ENCOUNTER → 2024-05-18 15:01 | Outpatient (BNVA) | payer MEDICAID, SELFPAY | PROVIDERS: PCP Family Medicine; Visit Provider Internal Medicine | DX: M86.9 Osteomyelitis, unspecified (principal) | CPT/HCPCS: 99212 ==

== ENCOUNTER 2024-06-09 06:38 | Outpatient (REF) | payer MEDICARE, MEDICAID, SELFPAY ==
[2024-06-09 05:53] LABS: MANUAL DIFF FLAG NO
[2024-06-09 06:31] LABS: Basophils Percent Auto 0.2 % (0-2); Eosinophils Absolute Auto 0.2 X10*3/uL (0.0-0.4); Eosinophils Percent Auto 3.7 % (0-4); Hematocrit 38.1 % (37.0-47.0); Hemoglobin 12.5 g/dl (12.0-16.0); Imm Gran Abs Auto 0.02 X10*3/uL (0.00-0.03); Imm Gran Pct Auto 0.5 % (0.0-0.4); Lymphocytes Absolute Auto 1.2 X10*3/uL (1.2-4.9); Lymphocytes Percent Auto 28.2 % (20-40); Mean Corpuscular HGB Conc 32.8 g/dl (31.0-35.0); Mean Corpuscular Hemoglobin 32.3 pg (27.0-33.0); Mean Corpuscular Volume 98.4 fL (80.0-98.0); Mean Platelet Volume 10.8 fL (9.4-12.3); Monocytes Absolute Auto 0.4 X10*3/uL (0.1-1.2); Monocytes Percent Auto 9.6 % (2-11); Neutrophils Absolute Auto 2.5 x10*3/uL (2.0-8.3); Neutrophils Percent Auto 57.8 % (45-73); Platelet Count 155 X10*3/uL (160-400); Red Blood Count 3.87 X10*6/uL (4.20-5.50); Red Cell Distribution Width 14.2 % (11.0-16.0); White Blood Count 4.3 X10*3/uL (4.8-10.8)
[2024-06-09 07:03] LABS: Anion Gap 13 (12-20); Blood Urea Nitrogen 20 mg/dL (9-16); Calcium 9.2 mg/dL (8.4-10.2); Carbon Dioxide 21 mmol/L (22-29); Chloride 110 mmol/L (96-108); Estimated Glomerular Filt Rate > 60; Glucose Random 118 mg/dL (60-115); Potassium 3.7 mmol/L (3.3-5.1); Sodium 140 mmol/L (135-145)
== END 2024-06-09 06:39 | disposition home or self-care (01) ==
LOC: HO.MMNH1L 06:38
PROVIDERS: Visit Provider Hospitalist
DX: N18.2 Chronic kidney disease, stage 2 (mild) (principal); E87.6 Hypokalemia; Z16.24 Resistance to multiple antibiotics
CPT/HCPCS: 36415; 80048; 85025

== ENCOUNTER 2024-06-18 07:26 | Outpatient (REF) | payer MEDICARE, MEDICAID, SELFPAY ==
[2024-06-18 07:30] LABS: MANUAL DIFF FLAG NO
[2024-06-18 07:57] LABS: Basophils Percent Auto 0.2 % (0-2); Eosinophils Absolute Auto 0.2 X10*3/uL (0.0-0.4); Hematocrit 38.3 % (37.0-47.0); Hemoglobin 12.7 g/dl (12.0-16.0); Imm Gran Abs Auto 0.01 X10*3/uL (0.00-0.03); Imm Gran Pct Auto 0.2 % (0.0-0.4); Lymphocytes Absolute Auto 1.3 X10*3/uL (1.2-4.9); Mean Corpuscular HGB Conc 33.2 g/dl (31.0-35.0); Mean Corpuscular Hemoglobin 31.6 pg (27.0-33.0); Mean Corpuscular Volume 95.3 fL (80.0-98.0); Mean Platelet Volume 10.8 fL (9.4-12.3); Monocytes Absolute Auto 0.5 X10*3/uL (0.1-1.2); Monocytes Percent Auto 10.7 % (2-11); Neutrophils Percent Auto 58.9 % (45-73); Platelet Count 153 X10*3/uL (160-400); Red Blood Count 4.02 X10*6/uL (4.20-5.50); Red Cell Distribution Width 14.3 % (11.0-16.0)
[2024-06-18 08:08] LABS: Anion Gap 13 (12-20); Blood Urea Nitrogen 17 mg/dL (9-16); Calcium 9.4 mg/dL (8.4-10.2); Carbon Dioxide 23 mmol/L (22-29); Chloride 108 mmol/L (96-108); Estimated Glomerular Filt Rate > 60; Glucose Random 81 mg/dL (60-115); Potassium 4.1 mmol/L (3.3-5.1); Sodium 140 mmol/L (135-145)
== END 2024-06-18 07:27 | disposition home or self-care (01) ==
LOC: HO.MMNH3L 07:26
PROVIDERS: Visit Provider Hospitalist
DX: I48.92 Unspecified atrial flutter (principal)
CPT/HCPCS: 36415; 80048; 85025

== ENCOUNTER 2024-07-13 06:39 | Outpatient (REF) | payer MEDICARE, MEDICAID, SELFPAY ==
[2024-07-13 06:14] LABS: MANUAL DIFF FLAG NO
[2024-07-13 07:00] LABS: Basophils Percent Auto 0.4 % (0-2); Eosinophils Absolute Auto 0.2 X10*3/uL (0.0-0.4); Eosinophils Percent Auto 4.1 % (0-4); Hematocrit 37.3 % (37.0-47.0); Hemoglobin 12.3 g/dl (12.0-16.0); Imm Gran Abs Auto 0.01 X10*3/uL (0.00-0.03); Imm Gran Pct Auto 0.2 % (0.0-0.4); Lymphocytes Absolute Auto 1.4 X10*3/uL (1.2-4.9); Lymphocytes Percent Auto 29.3 % (20-40); Mean Corpuscular Hemoglobin 31.9 pg (27.0-33.0); Mean Corpuscular Volume 96.9 fL (80.0-98.0); Mean Platelet Volume 10.1 fL (9.4-12.3); Monocytes Absolute Auto 0.4 X10*3/uL (0.1-1.2); Monocytes Percent Auto 8.7 % (2-11); Neutrophils Absolute Auto 2.6 x10*3/uL (2.0-8.3); Neutrophils Percent Auto 57.3 % (45-73); Platelet Count 184 X10*3/uL (160-400); Red Blood Count 3.85 X10*6/uL (4.20-5.50); Red Cell Distribution Width 14.5 % (11.0-16.0); White Blood Count 4.6 X10*3/uL (4.8-10.8)
[2024-07-13 07:39] LABS: Anion Gap 8 (12-20); Blood Urea Nitrogen 17 mg/dL (9-16); Calcium 9.1 mg/dL (8.4-10.2); Carbon Dioxide 25 mmol/L (22-29); Chloride 111 mmol/L (96-108); Estimated Glomerular Filt Rate > 60; Glucose Random 90 mg/dL (60-115); Potassium 3.9 mmol/L (3.3-5.1); Sodium 140 mmol/L (135-145)
== END 2024-07-13 06:40 | disposition home or self-care (01) ==
LOC: HO.MMNH3L 06:39
PROVIDERS: Visit Provider Hospitalist
DX: I48.92 Unspecified atrial flutter (principal)
CPT/HCPCS: 36415; 80048; 85025

== ENCOUNTER 2024-08-10 06:38 | Outpatient (REF) | payer MEDICARE, MEDICAID, SELFPAY ==
[2024-08-10 06:02] LABS: MANUAL DIFF FLAG NO
[2024-08-10 07:14] LABS: Basophils Percent Auto 0.2 % (0-2); Eosinophils Absolute Auto 0.1 X10*3/uL (0.0-0.4); Eosinophils Percent Auto 2.1 % (0-4); Hematocrit 38.2 % (37.0-47.0); Hemoglobin 12.4 g/dl (12.0-16.0); Imm Gran Abs Auto 0.02 X10*3/uL (0.00-0.03); Imm Gran Pct Auto 0.4 % (0.0-0.4); Lymphocytes Absolute Auto 1.5 X10*3/uL (1.2-4.9); Lymphocytes Percent Auto 28.8 % (20-40); Mean Corpuscular HGB Conc 32.5 g/dl (31.0-35.0); Mean Corpuscular Volume 98.5 fL (80.0-98.0); Mean Platelet Volume 10.4 fL (9.4-12.3); Monocytes Absolute Auto 0.5 X10*3/uL (0.1-1.2); Monocytes Percent Auto 8.4 % (2-11); Neutrophils Absolute Auto 3.2 x10*3/uL (2.0-8.3); Neutrophils Percent Auto 60.1 % (45-73); Platelet Count 181 X10*3/uL (160-400); Red Blood Count 3.88 X10*6/uL (4.20-5.50); Red Cell Distribution Width 14.6 % (11.0-16.0); White Blood Count 5.4 X10*3/uL (4.8-10.8)
[2024-08-10 08:09] LABS: Anion Gap 12 (12-20); Blood Urea Nitrogen 20 mg/dL (9-16); Calcium 9.5 mg/dL (8.4-10.2); Carbon Dioxide 23 mmol/L (22-29); Chloride 109 mmol/L (96-108); Estimated Glomerular Filt Rate > 60; Glucose Random 93 mg/dL (60-115); Potassium 4.1 mmol/L (3.3-5.1); Sodium 140 mmol/L (135-145)
== END 2024-08-10 06:39 | disposition home or self-care (01) ==
LOC: HO.MMNH3L 06:38
PROVIDERS: Visit Provider Hospitalist
DX: I48.92 Unspecified atrial flutter (principal)
CPT/HCPCS: 36415; 80048; 85025

== ENCOUNTER 2024-08-18 05:16 | Outpatient (REF) | payer MEDICARE, MEDICAID, SELFPAY ==
[2024-08-18 06:04] LABS: Alanine Aminotransferase 16 U/L (0-31); Albumin Level 3.4 g/dL (3.5-5.0); Alkaline Phosphatase 68 U/L (39-117); Aspartate Amino Transferase 21 U/L (5-31); Bilirubin Direct 0.1 mg/dL (0.0-0.5); Bilirubin Total 0.5 mg/dL (0.0-1.0); Total Protein 5.8 g/dL (6.5-8.0)
[2024-08-18 06:20] LABS: Thyroid Stimulating Hormone 4.23 uIU/mL (0.32-4.0)
== END 2024-08-18 05:17 | disposition home or self-care (01) ==
LOC: HO.MMNH3L 05:16
PROVIDERS: Visit Provider Family Medicine
DX: E86.0 Dehydration (principal); E03.9 Hypothyroidism, unspecified
CPT/HCPCS: 36415; 80076; 84443

== ENCOUNTER 2024-09-07 06:30 | Outpatient (REF) | payer MEDICARE, MEDICAID, SELFPAY ==
[2024-09-07 06:19] LABS: MANUAL DIFF FLAG NO
[2024-09-07 06:30] LABS: Basophils Percent Auto 0.2 % (0-2); Eosinophils Absolute Auto 0.1 X10*3/uL (0.0-0.4); Eosinophils Percent Auto 2.4 % (0-4); Hematocrit 37.3 % (37.0-47.0); Hemoglobin 12.3 g/dl (12.0-16.0); Imm Gran Abs Auto 0.01 X10*3/uL (0.00-0.03); Imm Gran Pct Auto 0.2 % (0.0-0.4); Lymphocytes Absolute Auto 1.2 X10*3/uL (1.2-4.9); Lymphocytes Percent Auto 24.7 % (20-40); Mean Corpuscular Hemoglobin 32.4 pg (27.0-33.0); Mean Corpuscular Volume 98.2 fL (80.0-98.0); Mean Platelet Volume 9.8 fL (9.4-12.3); Monocytes Absolute Auto 0.5 X10*3/uL (0.1-1.2); Monocytes Percent Auto 10.3 % (2-11); Neutrophils Absolute Auto 2.9 x10*3/uL (2.0-8.3); Neutrophils Percent Auto 62.2 % (45-73); Platelet Count 169 X10*3/uL (160-400); Red Cell Distribution Width 14.3 % (11.0-16.0); White Blood Count 4.7 X10*3/uL (4.8-10.8)
[2024-09-07 06:48] LABS: Anion Gap 12 (12-20); Blood Urea Nitrogen 19 mg/dL (9-16); Calcium 8.8 mg/dL (8.4-10.2); Carbon Dioxide 22 mmol/L (22-29); Chloride 109 mmol/L (96-108); Estimated Glomerular Filt Rate > 60; Glucose Random 83 mg/dL (60-115); Potassium 3.6 mmol/L (3.3-5.1); Sodium 139 mmol/L (135-145)
== END 2024-09-07 06:31 | disposition home or self-care (01) ==
LOC: HO.MMNH3L 06:30
PROVIDERS: Visit Provider Nurse Practitioner
DX: I48.92 Unspecified atrial flutter (principal)
CPT/HCPCS: 36415; 80048; 85025

== ENCOUNTER 2024-09-17 05:30 | Outpatient (REF) | payer MEDICARE, MEDICAID, SELFPAY ==
--- OUTSIDE RECORDS SUMMARY | 2024-09-17 05:33 | XMS_ITS | Clinical Summary ---
Author Organization Unknown Care Team Providers Care Tube Builder Name Role Phone JANEL DIAZ, ABAD Unavailable Unavailable JASON RN, FRANCA Unavailable Unavailable REID PT, BERT Unavailable Unavailable Payers Payer Name Policy Type Policy Number Effective Date Expira tion Date MEDICARE - [place] - PDGM [id number] Problems Condition Name Condition Details Condition Category Status Onset Date Resolution Date Last Treatment Date Treating Clinician Comments CELLULITIS OF RIGHT LOWER LIMB Active 2022-10 00:00: 00 CELLULITIS OF LEFT LOWER LIMB Active 2022-10 00:00: 00 TYPE 2 DIABETES MELLITUS W DIABETIC CHRONIC KIDNEY DISEASE Active 10-07 00:00: 00 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 CHR KDNY Active 10-07 00:00: 00 CHRONIC DIASTOLIC (CONGESTIVE) HEART FAILURE Active 10-07 00:00: 00 CHRONIC KIDNEY DISEASE, STAGE 2 (MILD) Active 10-07 00:00: 00 TYPE 2 DIABETES W DIABETIC PERIPHERAL ANGIOPATH W/O GANGRENE Active 10-07 00:00: 00 VENOUS INSUFFICIENC Y (CHRONIC) (PERIPHERAL) Active 10-07 00:00: 00 LYMPHEDEMA, NOT ELSEWHERE CLASSIFIED Active 10-07 00:00: 00 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 Active 10-07 00:00: 00 TYPE 2 DIABETES MELLITUS WITH OTHER SPECIFIED COMPLICATION Active 10-07 00:00: 00 PURE HYPERCHOLEST EROLEMIA, UNSPECIFIED Active 10-07 00:00: 00 AGE-REL OSTEOPOR W CRNT PATH FX, VERTEB, 7THD Active 10-07 00:00: 00 POLYOSTEOART HRITIS, UNSPECIFIED Active 10-07 00:00: 00 RESTLESS LEGS SYNDROME Active 10-07 00:00: 00 MIGRAINE, UNSP, NOT INTRACTABLE, WITHOUT STATUS MIGRAINOSUS Active 10-07 00:00: 00 INSOMNIA, UNSPECIFIED Active 10-07 00:00: 00 OTHER CHRONIC PAIN Active 10-07 00:00: 00 DORSALGIA, UNSPECIFIED Active 10-07 00:00: 00 IRON DEFICIENCY ANEMIA, UNSPECIFIED Active 10-07 00:00: 00 ATHSCL HEART DISEASE OF [place] CORONARY ARTERY W/O ANG PCTRS Active 10-07 00:00: 00 PAROXYSMAL ATRIAL FIBRILLATION Active 10-07 00:00: 00 CHRONIC OBSTRUCTIVE PULMONARY DISEASE, UNSPECIFIED Active 10-07 00:00: 00 DVRTCLOS OF LG INT W/O PERFORATION OR ABSCESS W/O BLEEDING Active 10-07 00:00: 00 GASTRO-ESOPH AGEAL REFLUX DISEASE WITHOUT ESOPHAGITIS Active 10-07 00:00: 00 MAJOR DEPRESSIVE DISORDER, SINGLE EPISODE, UNSPECIFIED Active 10-07 00:00: 00 ANXIETY DISORDER, UNSPECIFIED Active 10-07 00:00: 00 UNSPECIFIED MACULAR DEGENERATION Active 10-07 00:00: 00 CARPAL TUNNEL SYNDROME, UNSPECIFIED UPPER LIMB Active 10-07 00:00: 00 OLD MYOCARDIAL INFARCTION Active 10-07 00:00: 00 OBESITY, UNSPECIFIED Active 10-07 00:00: 00 BODY MASS INDEX [BMI] 32.0-32.9, ADULT Active 10-07 00:00: 00 PRESENCE OF AORTOCORONAR Y BYPASS GRAFT Active 10-07 00:00: 00 PERSONAL HISTORY OF NICOTINE DEPENDENCE Active 10-07 00:00: 00 PERSONAL HISTORY OF URINARY (TRACT) INFECTIONS Active 10-07 00:00: 00 ACQUIRED ABSENCE OF BOTH CERVIX AND UTERUS Active 10-07 00:00: 00 Problems related to health literacy Active 10-07 00:00: 00 POULTRY VETERINARIAN (CURRENT) USE OF INHALED STEROIDS Active 10-07 00:00: 00 POULTRY VETERINARIAN (CURRENT) USE OF ANTICOAGULAN TS Active 10-07 00:00: 00 HISTORY OF FALLING Active 10-07 00:00: 00 Allergies, Adverse Reactions, Alerts Allergy Name Allergy Type Status Severity Reaction(s) Onset Date Inactive Date Treating Clinician Comments NKA Propensity to adverse reactions Active 2023-07 11:45:1 0 Medications Ordered Medication Name Filled Medication Name Start Date Stop Date Current Medication? Ordering Clinician Indication Dosage Frequency Signature (SIG) Comments Components triamcinolo ne acetonide 0.1 % topical cream 2019-10 00:00: 00 02-19 00:00 :00 No [id number] Per instruc tions Per instructio ns (route: topical) Med Classific ation: Dermatolo gical Lidocaine Viscous 2 % mucosal solution 2019-10 00:00: 00 02-19 00:00 :00 No [id number] Per instruc tions Per instructio ns (route: mucous membrane) Med Classific ation: Mouth-Thr oat-Denta l - Preparati ons loperamide 2 mg capsule 10-11 00:00: 00 02-19 00:00 :00 No [id number] Per instruc tions Per instructio ns (route: oral) Med Classific ation: Gastroint estinal Therapy Agents cholecalcif darryl (vitamin D3) 50 mcg (2,000 unit) capsule 2019-10 00:00: 00 02-19 00:00 :00 No [id number] Per instruc tions DAILY Per instructio ns DAILY (route: oral) Med Classific ation: Electroly te Balance-N utritiona l Products escitalopra m 10 mg tablet 2019-10 00:00: 00 02-19 00:00 :00 No [id number] Per instruc tions Per instructio ns (route: oral) Med Classific ation: Central Nervous System Agents cephalexin 500 mg capsule 10-21 00:00: 00 02-19 00:00 :00 No [id number] Per instruc tions Per instructio ns (route: oral) Med Classific ation: Anti-Infe ctive Agents losartan 25 mg tablet 2019-10-14 00:00: 00 02-19 00:00 :00 No [id number] Per instruc tions DAILY Per instructio ns DAILY (route: oral) Med Classific ation: Cardiovas cular Therapy Agents doxycycline hyclate 100 mg capsule 10-17 00:00: 00 02-19 23:59 :00 No [id number] Per instruc tions TWICE A DAY FOR 7 DAYS Per instructio ns TWICE A DAY FOR 7 DAYS (route: oral) Med Classific ation: Anti-Infe ctive Agents ropinirole 2 mg tablet 10-11 00:00: 00 Yes [id number] 1 tablet 2 TIMES DAILY 1 tablet 2 TIMES DAILY (route: oral) Med Classific ation: Central Nervous System Agents prednisone 20 mg tablet 10-24 00:00: 00 02-19 00:00 :00 No [id number] Per instruc tions Per instructio ns (route: oral) Med Classific ation: Endocrine levofloxaci n 250 mg tablet 10-24 00:00: 00 02-19 00:00 :00 No [id number] Per instruc tions Per instructio ns (route: oral) Med Classific ation: Anti-Infe ctive Agents torsemide 20 mg tablet 2019-10 00:00: 00 04-15 23:59 :00 No [id number] 20 mg EVERY AM 20 mg EVERY AM (route: oral) Med Classific ation: Cardiovas cular Therapy Agents Advair Diskus 250 mcg-50 mcg/dose powder for inhalation 02-19 00:00: 00 Yes [id number] 1 inhalat ion EVERY AM 1 inhalation EVERY AM (route: inhalation ) Med Classific ation: Respirato ry Therapy Agents amiodarone 200 mg tablet 02-19 00:00: 00 Yes [id number] 1 tablet EVERY AM 1 tablet EVERY AM (route: oral) Med Classific ation: Cardiovas cular Therapy Agents atorvastati n 20 mg tablet 02-19 00:00: 00 Yes [id number] 1 tablet BEDTIME 1 tablet BEDTIME (route: oral) Med Classific ation: Cardiovas cular Therapy Agents gabapentin 600 mg tablet 02-19 00:00: 00 08-03 00:00 :00 No [id number] 1 tablet BEDTIME 1 tablet BEDTIME (route: oral) Med Classific ation: Central Nervous System Agents lorazepam 0.5 mg tablet 02-19 00:00: 00 05-15 23:59 :00 No [id number] 1 tablet BEDTIME 1 tablet BEDTIME (route: oral) Med Classific ation: Central Nervous System Agents metoprolol succinate ER 25 mg tablet,exte nded release 24 hr 02-19 00:00: 00 05-15 23:59 :00 No [id number] 37.5 mg EVERY AM 37.5 mg EVERY AM (route: oral) Med Classific ation: Cardiovas cular Therapy Agents cephalexin 500 mg capsule 03-11 00:00: 00 03-25 23:59 :00 No [id number] 1 capsule 2 TIMES DAILY 1 capsule 2 TIMES DAILY (route: oral) Med Classific ation: Anti-Infe ctive Agents citalopram 30 mg capsule 05-15 00:00: 00 Yes [id number] 1 capsule DAILY 1 capsule DAILY (route: oral) Med Classific ation: Central Nervous System Agents Eliquis 5 mg tablet 05-15 00:00: 00 Yes [id number] 1 tablet 2 TIMES DAILY 1 tablet 2 TIMES DAILY (route: oral) Med Classific ation: Hematolog ical Agents Protonix 40 mg tablet,ivelisse yed release 05-15 00:00: 00 Yes [id number] 1 tablet DAILY 1 tablet DAILY (route: oral) Med Classific ation: Gastroint estinal Therapy Agents torsemide 20 mg tablet 05-15 00:00: 00 07-09 23:59 :00 No [id number] 1 tablet DAILY 1 tablet DAILY (route: oral) Med Classific ation: Cardiovas cular Therapy Agents torsemide 20 mg tablet 2022-10 00:00: 00 08-07 23:59 :00 No [id number] 2 tablet 2 TIMES DAILY 2 tablet 2 TIMES DAILY (route: oral) Med Classific ation: Cardiovas cular Therapy Agents gabapentin 300 mg capsule 2022-10 00:00: 00 Yes [id number] 1 capsule BEDTIME 1 capsule BEDTIME (route: oral) Med Classific ation: Central Nervous System Agents Klor-Con M20 mEq tablet,exte nded release 2022-10 00:00: 00 Yes [id number] 1 tablet DAILY 1 tablet DAILY (route: oral) Med Classific ation: Electroly te Balance-N utritiona l Products torsemide 20 mg tablet 2022-10 00:00: 00 Yes [id number] 2 tablet DAILY 2 tablet DAILY (route: oral) Med Classific ation: Cardiovas cular Therapy Agents cephalexin 250 mg tablet 2022-10 00:00: 00 09-17 23:59 :00 No [id number] 1 tablet 4 TIMES DAILY 1 tablet 4 TIMES DAILY (route: oral) Med Classific ation: Anti-Infe ctive Agents Vital Signs Vital Name Observation Time Observation Value Commen ts Temperature 2023-10-16 11:46:00.000 98.2 [degF] Temperature 2023-10-14 13:29:00.000 98.1 [degF] Temperature 2023-10-14 10:15:00.000 97.4 [degF] Temperature 2023-10-11 13:10:00.000 97.5 [degF] Temperature 2023-10-09 12:33:00.000 97.3 [degF] Temperature 2023-10-09 10:49:00.000 97.8 [degF] Temperature 2023-10-08 13:49:00.000 97.7 [degF] Temperature 2023-10-05 11:16:00.000 98.2 [degF] Temperature 2023-10-04 14:07:00.000 98 [degF] Temperature 2023-10-02 13:34:00.000 97.9 [degF] Temperature 2023-10-01 12:59:00.000 98 [degF] Temperature 2023-09-28 11:50:00.000 98.2 [degF] Temperature 2023-09-27 12:58:00.000 97.5 [degF] Temperature 2023-09-26 20:29:00.000 98.1 [degF] Temperature 2023-09-20 13:33:00.000 97.8 [degF] Temperature 2023-09-19 11:04:00.000 97.2 [degF] Temperature 2023-09-18 14:27:00.000 97.7 [degF] Temperature 2023-09-16 14:30:00.000 98.4 [degF] Temperature 2023-09-13 13:20:00.000 98.2 [degF] Temperature 2023-09-12 10:14:00.000 98.6 [degF] Temperature 2023-09-11 13:22:00.000 98 [degF] Temperature 2023-09-10 15:54:00.000 98.6 [degF] Temperature 2023-09-10 12:38:00.000 99.1 [degF] Calf Circumference (cms) 2023-10-16 11:46:00.000 42.5 Calf Circumference (cms) 2023-10-14 13:29:00.000 49 Calf Circumference (cms) 2023-10-11 14:16:00.000 44.5 Calf Circumference (cms) 2023-10-09 12:33:00.000 39 Calf Circumference (cms) 2023-10-09 10:51:00.000 41 Calf Circumference (cms) 2023-10-08 13:49:00.000 44 Calf Circumference (cms) 2023-10-04 14:07:00.000 40.5 Calf Circumference (cms) 2023-10-02 13:57:00.000 39 Calf Circumference (cms) 2023-10-01 12:59:00.000 37.5 Calf Circumference (cms) 2023-09-28 12:25:00.000 39 Calf Circumference (cms) 2023-09-27 12:58:00.000 42 Calf Circumference (cms) 2023-09-20 13:33:00.000 47 Calf Circumference (cms) 2023-09-18 14:27:00.000 47.5 Calf Circumference (cms) 2023-09-16 14:30:00.000 46.5 Calf Circumference (cms) 2023-09-13 13:20:00.000 42 Calf Circumference (cms) 2023-09-11 13:43:00.000 47 Calf Circumference (cms) 2023-09-10 12:44:00.000 47.5 Pulse 2023-10-16 11:46:00.000 55 /min Pulse 2023-10-14 13:29:00.000 57 /min Pulse 2023-10-14 10:15:00.000 76 /min Pulse 2023-10-11 13:10:00.000 58 /min Pulse 2023-10-09 12:33:00.000 56 /min Pulse 2023-10-09 10:49:00.000 68 /min Pulse 2023-10-08 13:49:00.000 54 /min Pulse 2023-10-05 11:16:00.000 72 /min Pulse 2023-10-04 14:07:00.000 61 /min Pulse 2023-10-02 13:34:00.000 54 /min Pulse 2023-10-01 12:59:00.000 54 /min Pulse 2023-09-28 11:50:00.000 52 /min Pulse 2023-09-27 12:58:00.000 55 /min Pulse 2023-09-26 20:29:00.000 76 /min Pulse 2023-09-20 13:33:00.000 57 /min Pulse 2023-09-19 11:04:00.000 62 /min Pulse 2023-09-18 14:27:00.000 57 /min Pulse 2023-09-16 14:30:00.000 60 /min Pulse 2023-09-13 13:20:00.000 60 /min Pulse 2023-09-12 10:14:00.000 62 /min Pulse 2023-09-11 13:22:00.000 60 /min Pulse 2023-09-10 15:54:00.000 68 /min Pulse 2023-09-10 12:38:00.000 60 /min O2 Saturation (%) 2023-10-14 10:15:00.000 95 % O2 Saturation (%) 2023-10-09 10:49:00.000 97 % O2 Saturation (%) 2023-10-05 11:16:00.000 96 % O2 Saturation (%) 2023-10-04 14:07:00.000 95 % O2 Saturation (%) 2023-09-27 12:59:00.000 97 % O2 Saturation (%) 2023-09-26 20:29:00.000 94 % O2 Saturation (%) 2023-09-19 11:04:00.000 96 % O2 Saturation (%) 2023-09-12 10:14:00.000 97 % O2 Saturation (%) 2023-09-10 15:54:00.000 98 % Pain 2023-10-16 11:46:00.000 3 Pain 2023-10-14 13:29:00.000 3 Pain 2023-10-14 10:15:00.000 0 Pain 2023-10-11 13:10:00.000 2 Pain 2023-10-09 12:33:00.000 3 Pain 2023-10-09 10:49:00.000 2 Pain 2023-10-08 13:49:00.000 7 Pain 2023-10-05 11:16:00.000 2 Pain 2023-10-04 14:07:00.000 5 Pain 2023-10-02 13:34:00.000 2 Pain 2023-10-01 12:59:00.000 2 Pain 2023-09-28 11:50:00.000 3 Pain 2023-09-27 13:00:00.000 5 Pain 2023-09-26 20:29:00.000 4 Pain 2023-09-20 13:33:00.000 3 Pain 2023-09-19 11:04:00.000 5 Pain 2023-09-18 14:27:00.000 5 Pain 2023-09-16 14:30:00.000 2 Pain 2023-09-13 13:20:00.000 5 Pain 2023-09-12 10:14:00.000 6 Pain 2023-09-11 13:22:00.000 2 Pain 2023-09-10 15:54:00.000 0 Pain 2023-09-10 12:38:00.000 4 Respirations 2023-10-16 11:46:00.000 18 /min Respirations 2023-10-14 13:29:00.000 18 /min Respirations 2023-10-14 10:15:00.000 18 /min Respirations 2023-10-11 13:10:00.000 18 /min Respirations 2023-10-09 12:33:00.000 18 /min Respirations 2023-10-09 10:49:00.000 20 /min Respirations 2023-10-08 13:49:00.000 18 /min Respirations 2023-10-05 11:16:00.000 20 /min Respirations 2023-10-04 14:07:00.000 18 /min Respirations 2023-10-02 13:34:00.000 18 /min Respirations 2023-10-01 12:59:00.000 18 /min Respirations 2023-09-28 11:50:00.000 18 /min Respirations 2023-09-27 12:58:00.000 18 /min Respirations 2023-09-26 20:29:00.000 20 /min Respirations 2023-09-20 13:33:00.000 18 /min Respirations 2023-09-19 11:04:00.000 18 /min Respirations 2023-09-18 14:27:00.000 18 /min Respirations 2023-09-16 14:30:00.000 18 /min Respirations 2023-09-13 13:20:00.000 18 /min Respirations 2023-09-12 10:14:00.000 18 /min Respirations 2023-09-11 13:22:00.000 18 /min Respirations 2023-09-10 15:54:00.000 20 /min Respirations 2023-09-10 12:38:00.000 18 /min Weight (lbs) 2023-09-19 11:04:00.000 173 [lb_av] Weight (kgs) 2023-09-12 10:14:00.000 176 Systolic Blood Pressure 2023-10-16 11:46:00.000 120 mm [Hg] Systolic Blood Pressure 2023-10-14 13:29:00.000 95 mm[ Hg] Systolic Blood Pressure 2023-10-14 10:15:00.000 122 mm [Hg] Systolic Blood Pressure 2023-10-11 13:10:00.000 111 mm [Hg] Systolic Blood Pressure 2023-10-09 12:33:00.000 107 mm [Hg] Systolic Blood Pressure 2023-10-09 10:49:00.000 132 mm [Hg] Systolic Blood Pressure 2023-10-08 13:49:00.000 100 mm [Hg] Systolic Blood Pressure 2023-10-05 11:16:00.000 102 mm [Hg] Systolic Blood Pressure 2023-10-04 14:07:00.000 102 mm [Hg] Systolic Blood Pressure 2023-10-02 13:34:00.000 104 mm [Hg] Systolic Blood Pressure 2023-10-01 12:59:00.000 95 mm[ Hg] Systolic Blood Pressure 2023-09-28 11:50:00.000 128 mm [Hg] Systolic Blood Pressure 2023-09-27 12:58:00.000 105 mm [Hg] Systolic Blood Pressure 2023-09-26 20:29:00.000 132 mm [Hg] Systolic Blood Pressure 2023-09-20 13:33:00.000 95 mm[ Hg] Systolic Blood Pressure 2023-09-19 11:04:00.000 118 mm [Hg] Systolic Blood Pressure 2023-09-18 14:27:00.000 115 mm [Hg] Systolic Blood Pressure 2023-09-16 14:30:00.000 118 mm [Hg] Systolic Blood Pressure 2023-09-13 13:20:00.000 103 mm [Hg] Systolic Blood Pressure 2023-09-12 10:14:00.000 120 mm [Hg] Systolic Blood Pressure 2023-09-11 13:22:00.000 100 mm [Hg] Systolic Blood Pressure 2023-09-10 15:54:00.000 122 mm [Hg] Systolic Blood Pressure 2023-09-10 12:38:00.000 104 mm [Hg] Diastolic Blood Pressure 2023-10-16 11:46:00.000 69 mm [Hg] Diastolic Blood Pressure 2023-10-14 13:29:00.000 61 mm [Hg] Diastolic Blood Pressure 2023-10-14 10:15:00.000 60 mm [Hg] Diastolic Blood Pressure 2023-10-11 13:10:00.000 57 mm [Hg] Diastolic Blood Pressure 2023-10-09 12:33:00.000 56 mm [Hg] Diastolic Blood Pressure 2023-10-09 10:49:00.000 60 mm [Hg] Diastolic Blood Pressure 2023-10-08 13:49:00.000 50 mm [Hg] Diastolic Blood Pressure 2023-10-05 11:16:00.000 60 mm [Hg] Diastolic Blood Pressure 2023-10-04 14:07:00.000 53 mm [Hg] Diastolic Blood Pressure 2023-10-02 13:34:00.000 54 mm [Hg] Diastolic Blood Pressure 2023-10-01 12:59:00.000 54 mm [Hg] Diastolic Blood Pressure 2023-09-28 11:50:00.000 56 mm [Hg] Diastolic Blood Pressure 2023-09-27 12:58:00.000 65 mm [Hg] Diastolic Blood Pressure 2023-09-26 20:29:00.000 80 mm [Hg] Diastolic Blood Pressure 2023-09-20 13:33:00.000 58 mm [Hg] Diastolic Blood Pressure 2023-09-19 11:04:00.000 62 mm [Hg] Diastolic Blood Pressure 2023-09-18 14:27:00.000 60 mm [Hg] Diastolic Blood Pressure 2023-09-16 14:30:00.000 73 mm [Hg] Diastolic Blood Pressure 2023-09-13 13:20:00.000 55 mm [Hg] Diastolic Blood Pressure 2023-09-12 10:14:00.000 62 mm [Hg] Diastolic Blood Pressure 2023-09-11 13:22:00.000 53 mm [Hg] Diastolic Blood Pressure 2023-09-10 15:54:00.000 60 mm [Hg] Diastolic Blood Pressure 2023-09-10 12:38:00.000 50 mm [Hg] Plan of Treatment Planned Activity Planned Date Details Comments Future Scheduled Test SKILLED NU RSE TO EVALUATE PATIENT, IDENTIFY PRIMARY AND CO-MORBID CONDITIONS CODED PER CODING GUIDELINES, AND DEVELOP PATIENT SPECIFIC PLAN OF CARE THAT INCLUDES PATIENT GOAL FOR HOME HEALTH. [code = SKILLED NURSE TO EVALUATE PATIENT, IDENTIFY PRIMARY AND CO-MORBID CONDITIONS CODED PER CODING GUIDELINES, AND DEVELOP PATIENT SPECIFIC PLAN OF CARE THAT INCLUDES PATIENT GOAL FOR HOME HEALTH.] Future Scheduled Test SKILLED NU RSE TO REVIEW PATIENT MEDICATIONS. INSTRUCT PATIENT/CAREGIVER ON MONITORING OF EFFECTIVENESS, ADVERSE DRUG REACTIONS, SIDE EFFECTS OF ALL MEDICATIONS (PRESCRIPTION/-OTC), AND HOW AND WHEN TO REPORT PROBLEMS. [code = SKILLED NURSE TO REVIEW PATIENT MEDICATIONS. INSTRUCT PATIENT/CAREGIVER ON MONITORING OF EFFECTIVENESS, ADVERSE DRUG REACTIONS, SIDE EFFECTS OF ALL MEDICATIONS (PRESCRIPTION/-OTC), AND HOW AND WHEN TO REPORT PROBLEMS.] Future Scheduled Test NEED FOR C ONTINUATION OF PHYSICAL THERAPY SERVICES [code = NEED FOR CONTINUATION OF PHYSICAL THERAPY SERVICES] Future Scheduled Test SKILLED NU RSE TO ASSESS ANXIETY AND PROVIDE ASSISTANCE TO PATIENT FOR UNDERSTANDING AND MANAGEMENT OF FEELINGS. [code = SKILLED NURSE TO ASSESS ANXIETY AND PROVIDE ASSISTANCE TO PATIENT FOR UNDERSTANDING AND MANAGEMENT OF FEELINGS.] Future Scheduled Test SKILLED NU RSE MAY COLLECT URINE SAMPLE FOR URINE REAGENT STRIP TESTING AND/OR URINALYSIS WITH CS 1-3 PRN IF INDICATED FOR SIGNS AND SYMPTOMS OF UTI. IF REAGENT STRIP TEST IS POSITIVE FOR UTI, SKILLED NURSE TO TAKE URINE SAMPLE TO LAB FOR URINE CS AND REPORT RESULTS TO PHYSICIAN. [code = SKILLED NURSE MAY COLLECT URINE SAMPLE FOR URINE REAGENT STRIP TESTING AND/OR URINALYSIS WITH CS 1-3 PRN IF INDICATED FOR SIGNS AND SYMPTOMS OF UTI. IF REAGENT STRIP TEST IS POSITIVE FOR UTI, SKILLED NURSE TO TAKE URINE SAMPLE TO LAB FOR URINE CS AND REPORT RESULTS TO PHYSICIAN.] Future Scheduled Test SKILLED NU RSE FOR O/A, TEACHING, 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, AFIB, OLD [place] [code = SKILLED NURSE FOR O/A, TEACHING, 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, AFIB, OLD [place]] Future Scheduled Test SKILLED NU RSE FOR O/A, TEACHING RELATED TO GERD, DIVERTICULOSIS FOR EARLY IDENTIFICATION OF EXACERBATION OF DISEASE PROCESS. [code = SKILLED NURSE FOR O/A, TEACHING RELATED TO GERD, DIVERTICULOSIS FOR EARLY IDENTIFICATION OF EXACERBATION OF DISEASE PROCESS.] Future Scheduled Test SKILLED NU RSE FOR O/A, TEACHING AND MANAGEMENT OF CKD FOR EARLY IDENTIFICATION OF EXACERBATION OF DISEASE PROCESS [code = SKILLED NURSE FOR O/A, TEACHING AND MANAGEMENT OF CKD FOR EARLY IDENTIFICATION OF EXACERBATION OF DISEASE PROCESS] Future Scheduled Test SKILLED NU RSE FOR O/A AND SKILLED TEACHING RELATED TO SIGNS AND SYMPTOMS OF INFECTION AND INFECTION CONTROL MEASURES R/T CELLULITIS OF BLE. [code = SKILLED NURSE FOR O/A AND SKILLED TEACHING RELATED TO SIGNS AND SYMPTOMS OF INFECTION AND INFECTION CONTROL MEASURES R/T CELLULITIS OF BLE.] Future Scheduled Test SKILLED NU RSE FOR O/A AND SKILLED TEACHING IN MANAGEMENT OF CHRONIC PERIPHERAL VENOUS INSUFFICIENCY, LYMPHEDEMA [code = SKILLED NURSE FOR O/A AND SKILLED TEACHING IN MANAGEMENT OF CHRONIC PERIPHERAL VENOUS INSUFFICIENCY, LYMPHEDEMA] Future Scheduled Test SKILLED NU RSE FOR O/A AND SKILLED TEACHING RELATED TO ALTERED SKIN INTEGRITY LLE CELLULITIS [code = SKILLED NURSE FOR O/A AND SKILLED TEACHING RELATED TO ALTERED SKIN INTEGRITY LLE CELLULITIS ] Future Scheduled Test SKILLED NU RSE TO INSTRUCT PATIENT/CAREGIVER ON COPD TO INCLUDE TEACHING AND SELF-MANAGEMENT RELATED TO COPD DISEASE PROCESS, SIGNS AND SYMPTOMS, AND COMPLICATIONS. [code = SKILLED NURSE TO INSTRUCT PATIENT/CAREGIVER ON COPD TO INCLUDE TEACHING AND SELF-MANAGEMENT RELATED TO COPD DISEASE PROCESS, SIGNS AND SYMPTOMS, AND COMPLICATIONS.] Future Scheduled Test SKILLED NU RSE FOR O/A, TEACHING AND SELF-MANAGEMENT RELATED TO HEART FAILURE. INSTRUCT PATIENT/CAREGIVER ON SIGNS AND SYMPTOMS OF EXACERBATION TO REPORT. UNABLE TO WEIGH PATIENT, SKILLED NURSE TO OBTAIN MEASUREMENT OF CALF) IN CM AT EACH VISIT AND REPORT AN INCREASE OF 1 CM TO PHYSICIAN. [code = SKILLED NURSE FOR O/A, TEACHING AND SELF-MANAGEMENT RELATED TO HEART FAILURE. INSTRUCT PATIENT/CAREGIVER ON SIGNS AND SYMPTOMS OF EXACERBATION TO REPORT. UNABLE TO WEIGH PATIENT, SKILLED NURSE TO OBTAIN MEASUREMENT OF CALF) IN CM AT EACH VISIT AND REPORT AN INCREASE OF 1 CM TO PHYSICIAN.] Future Scheduled Test SKILLED NU RSE FOR O/A AND TEACHING OF DIABETIC MANAGEMENT INCLUDING, DIABETIC DIET, LOWER EXTREMITY SKIN INSPECTION, PROPER SKIN/FOOT CARE, AND SIGNS AND SYMPTOMS HYPO/HYPERGLYCEMIA TO REPORT. [code = SKILLED NURSE FOR O/A AND TEACHING OF DIABETIC MANAGEMENT INCLUDING, DIABETIC DIET, LOWER EXTREMITY SKIN INSPECTION, PROPER SKIN/FOOT CARE, AND SIGNS AND SYMPTOMS HYPO/HYPERGLYCEMIA TO REPORT.] Future Scheduled Test PATIENT SARABIA S A RISK OF HOSPITALIZATION AND ED USE. SKILLED NURSE TO ESTABLISH SUPPORT MEASURES TO MINIMIZE RISK OF HOSPITALIZATION AND ED USE, AND INSTRUCT PATIENT/CAREGIVER ON METHODS TO REDUCE AVOIDABLE HOSPITALIZATION AND ED USE. [code = PATIENT HAS A RISK OF HOSPITALIZATION AND ED USE. SKILLED NURSE TO ESTABLISH SUPPORT MEASURES TO MINIMIZE RISK OF HOSPITALIZATION AND ED USE, AND INSTRUCT PATIENT/CAREGIVER ON METHODS TO REDUCE AVOIDABLE HOSPITALIZATION AND ED USE.] Future Scheduled Test SKILLED NU RSE TO PROVIDE INSTRUCTION TO PATIENT/CAREGIVER RELATED TO DISCHARGE PLANNING. [code = SKILLED NURSE TO PROVIDE INSTRUCTION TO PATIENT/CAREGIVER RELATED TO DISCHARGE PLANNING.] Future Scheduled Test SKILLED NU RSE TO PERFORM HOME SAFETY AND FALL ASSESSMENT AND PROVIDE INSTRUCTION TO IMPLEMENT HOME SAFETY AND FALL PREVENTION STRATEGIES. [code = SKILLED NURSE TO PERFORM HOME SAFETY AND FALL ASSESSMENT AND PROVIDE INSTRUCTION TO IMPLEMENT HOME SAFETY AND FALL PREVENTION STRATEGIES.] Future Scheduled Test SKILLED NU RSE FOR OBSERVATION AND ASSESSMENT OF PATIENTS PAIN LEVEL AND EFFECTIVENESS OF PAIN MANAGEMENT REGIMEN. SKILLED NURSE TO INSTRUCT PATIENT/CAREGIVER REGARDING PHARMACOLOGIC AND NON-PHARMACOLOGIC PAIN CONTROL MEASURES. SKILLED NURSE TO REPORT TO PHYSICIAN IF PAIN IS UNCONTROLLED WITH CURRENT PAIN MANAGEMENT REGIMEN. [code = SKILLED NURSE FOR OBSERVATION AND ASSESSMENT OF PATIENTS PAIN LEVEL AND EFFECTIVENESS OF PAIN MANAGEMENT REGIMEN. SKILLED NURSE TO INSTRUCT PATIENT/CAREGIVER REGARDING PHARMACOLOGIC AND NON-PHARMACOLOGIC PAIN CONTROL MEASURES. SKILLED NURSE TO REPORT TO PHYSICIAN IF PAIN IS UNCONTROLLED WITH CURRENT PAIN MANAGEMENT REGIMEN.] Future Scheduled Test SKILLED NU RSE TO ASSESS PATIENT'S SKIN INTEGRITY AND INSTRUCT PATIENT/CAREGIVER ON MEASURES TO PREVENT PRESSURE ULCERS. [code = SKILLED NURSE TO ASSESS PATIENT'S SKIN INTEGRITY AND INSTRUCT PATIENT/CAREGIVER ON MEASURES TO PREVENT PRESSURE ULCERS.] Future Scheduled Test SKILLED NU RSE TO PROVIDE ASSESSMENT AND TEACHING/REINFORCEMENT OF MANAGEMENT OF DEPRESSION INCLUDING DISEASE PROCESS, MEDICATION MANAGEMENT, COPING SKILLS AND IDENTIFY CHANGES ASSOCIATED WITH DEPRESSIVE DISORDERS FOR EARLY INTERVENTION. [code = SKILLED NURSE TO PROVIDE ASSESSMENT AND TEACHING/REINFORCEMENT OF MANAGEMENT OF DEPRESSION INCLUDING DISEASE PROCESS, MEDICATION MANAGEMENT, COPING SKILLS AND IDENTIFY CHANGES ASSOCIATED WITH DEPRESSIVE DISORDERS FOR EARLY INTERVENTION. ] Future Scheduled Test PHYSICAL T HERAPIST TO EVALUATE PATIENT SECONDARY TO FUNCTIONAL DEFICITS/SAFETY CONCERNS. PHYSICAL THERAPY TO ESTABLISH /UPGRADE/DOWNGRADE THERAPEUTIC EXERCISE PROGRAM AND INSTRUCT PATIENT/CAREGIVER ON EXERCISE PRECAUTIONS WITH WRITTEN HOME PROGRAM. MAY INCLUDE AAROM, AROM, RROM APPROPRIATE TO IMPROVE FUNCTIONAL STRENGTH AND RANGE OF MOTION. PHYSICAL THERAPY TO INSTRUCT PATIENT/CAREGIVER ON SAFE TRANSFER TECHNIQUES USING PROPER BODY MECHANICS AND EQUIPMENT. PHYSICAL THERAPY TO INSTRUCT PATIENT/CAREGIVER ON GAIT TRAINING TECHNIQUES USING APPROPRIATE ASSISTIVE DEVICE, PROPER BODY MECHANICS TO IMPROVE MOBILITY, AND PREVENT INJURY OF PATIENT AND/OR CAREGIVER. SUMMARY OF THERAPY EVAL/ASSESSMENT FINDINGS AND REASON(S) SKILLS OF A THERAPIST ARE INDICATED: PATIENT IS A GOOD CANDIDATE FOR CONTINUED HOME SKILLED PT SECONDARY TO BEING A HIGH FALL RISK ( HAS HAD MANY FALLS IN THE PAST), AND DUE TO HER COMORBIDITIES - SPECIFICALLY CHF. PRESENTLY SHE IS HAVING DIFFICULTY PERFORMING SIT TO STAND TRANSFERS WITHOUT OUTSIDE ASSIST. SHE IS NOT ABLE TO AMBULATE SAFELY ON HER OWN AND WHEN SHE HAS ASSIST SHE IS ONLY ABLE TO AMBULATE AROUNF 8 FEET. SHE IS HAVING DIFFICULTY ADVANCING HER RIGHT LE DURING SWING PHASE OF GAIT ( DECREASED FOOR CLEARENCE). LIMITED ENDURANCE AND MILD SOB. SHE WAS RECENTLY HOSPITALIZED DUE TO CELLULITIS. SINCE HER RECENT HOSPITALIZATION SHE FUNCTIONAL MOBILITY HAS DECREASED SPECIFICALLY AMBULATION. [code = PHYSICAL THERAPIST TO EVALUATE PATIENT SECONDARY TO FUNCTIONAL DEFICITS/SAFETY CONCERNS. PHYSICAL THERAPY TO ESTABLISH /UPGRADE/DOWNGRADE THERAPEUTIC EXERCISE PROGRAM AND INSTRUCT PATIENT/CAREGIVER ON EXERCISE PRECAUTIONS WITH WRITTEN HOME PROGRAM. MAY INCLUDE AAROM, AROM, RROM APPROPRIATE TO IMPROVE FUNCTIONAL STRENGTH AND RANGE OF MOTION. PHYSICAL THERAPY TO INSTRUCT PATIENT/CAREGIVER ON SAFE TRANSFER TECHNIQUES USING PROPER BODY MECHANICS AND EQUIPMENT. PHYSICAL THERAPY TO INSTRUCT PATIENT/CAREGIVER ON GAIT TRAINING TECHNIQUES USING APPROPRIATE ASSISTIVE DEVICE, PROPER BODY MECHANICS TO IMPROVE MOBILITY, AND PREVENT INJURY OF PATIENT AND/OR CAREGIVER. SUMMARY OF THERAPY EVAL/ASSESSMENT FINDINGS AND REASON(S) SKILLS OF A THERAPIST ARE INDICATED: PATIENT IS A GOOD CANDIDATE FOR CONTINUED HOME SKILLED PT SECONDARY TO BEING A HIGH FALL RISK ( HAS HAD MANY FALLS IN THE PAST), AND DUE TO HER COMORBIDITIES - SPECIFICALLY CHF. PRESENTLY SHE IS HAVING DIFFICULTY PERFORMING SIT TO STAND TRANSFERS WITHOUT OUTSIDE ASSIST. SHE IS NOT ABLE TO AMBULATE SAFELY ON HER OWN AND WHEN SHE HAS ASSIST SHE IS ONLY ABLE TO AMBULATE AROUNF 8 FEET. SHE IS HAVING DIFFICULTY ADVANCING HER RIGHT LE DURING SWING PHASE OF GAIT ( DECREASED FOOR CLEARENCE). LIMITED ENDURANCE AND MILD SOB. SHE WAS RECENTLY HOSPITALIZED DUE TO CELLULITIS. SINCE HER RECENT HOSPITALIZATION SHE FUNCTIONAL MOBILITY HAS DECREASED SPECIFICALLY AMBULATION. ] Goal 2023-08-03 Patient Goal - [facility] OF [facility] Goal 2023-11-05 Patient Goal - STAY OUT OF H [facility] Goal 2023-09-05 Patient Goal - STAY OUT OF H [facility] Goal Provider Goal - A PLAN OF CARE WILL BE ESTABLISHED THAT MEETS PATIENT'S LONG TERM NEEDS AND INCLUDES PATIENT GOAL FOR HOME HEALTH. Goal Provider Goal - PATIENT/CAREGIVER WILL VERBALIZE UNDERSTANDING OF EDUCATION PROVIDED ON MEDICATIONS BY THE END OF THE CERTIFICATION PERIOD. Goal Provider Goal - PHYSICAL THERAPY SERVICES TO CONTINUE AND PLAN OF TREATMENT CARE WILL BE RE-ESTABLISHED/UPDATED IN THE NEW CERTIFICATION PERIOD. Goal Provider Goal - SYMPTOMS OF ANXIETY ARE IDENTIFIED AND INTERVENTIONS INITIATED TO ENABLE PATIENT TO UNDERSTAND AND MANAGE FEELINGS THROUGHOUT EPISODE. Goal Provider Goal - URINE SPECIMEN WILL BE OBTAINED PRN FOR SIGNS AND SYMPTOMS OF UTI AND RESULTS WILL BE REPORTED TO PHYSICIAN THROUGHOUT THE CERTIFICATION PERIOD. Goal Provider Goal - PATIENT/CAREGIVER WILL VERBALIZE/DEMONSTRATE MANAGEMENT OF CARDIAC DISEASE PROCESS AND EXACERBATIONS WILL BE IDENTIFIED AND PROMPTLY REPORTED THROUGHOUT THE CERTIFICATION PERIOD. Goal Provider Goal - EXACERBATIONS OF GASTROINTESTINAL DISEASE WILL BE PROMPTLY IDENTIFIED AND INTERVENTIONS IMPLEMENTED TO MINIMIZE RISKS TO PATIENT BY END OF EPISODE. Goal Provider Goal - PATIENT/CAREGIVER WILL VERBALIZE UNDERSTANDING OF GENITOURINARY DISEASE PROCESS, AND EXACERBATIONS OF GENITOURINARY DISEASE WILL BE PROMPTLY IDENTIFIED FOR EARLY INTERVENTION THROUGHOUT THE CERTIFICATION PERIOD. Goal Provider Goal - PATIENT/CAREGIVER WILL VERBALIZE/DEMONSTRATE UNDERSTANDING OF S/S OF INFECTION AND INFECTION CONTROL MEASURES. SIGNS AND SYMPTOMS OF INFECTION WILL BE IDENTIFIED AND PHYSICIAN NOTIFIED FOR PROMPT INTERVENTION THROUGHOUT THE CERTIFICATION PERIOD. Goal Provider Goal - PATIENT/CAREGIVER WILL VERBALIZE/DEMONSTRATE THE ABILITY TO MANAGE CIRCULATORY DISEASE PROCESS AND EXACERBATIONS WILL BE IDENTIFIED FOR EARLY INTERVENTION THROUGHOUT THE CERTIFICATION PERIOD. Goal Provider Goal - PATIENT/CAREGIVER WILL VERBALIZE/DEMONSTRATE UNDERSTANDING OF TEACHING RELATED TO ALTERED SKIN INTEGRITY BY END OF CERTIFICATION PERIOD. Goal Provider Goal - PATIENT/CAREGIVER WILL VERBALIZE/DEMONSTRATE KNOWLEDGE AND MANAGEMENT OF COPD BY END OF EPISODE. Goal Provider Goal - PATIENT/CAREGIVER WILL VERBALIZE/DEMONSTRATE KNOWLEDGE AND MANAGEMENT OF HEART FAILURE DISEASE PROCESS BY END OF EPISODE. Goal Provider Goal - PATIENT/CAREGIVER WILL VERBALIZE/DEMONSTRATE KNOWLEDGE OF DIABETIC MANAGEMENT. CHANGES IN DIABETIC STATUS WILL BE IDENTIFIED AND REPORTED TO PHYSICIAN FOR PROMPT INTERVENTION THROUGHOUT THE CERTIFICATION PERIOD. Goal Provider Goal - PATIENT WILL HAVE SUPPORT MEASURES ESTABLISHED TO PREVENT HOSPITALIZATION AND ED USE AND PATIENT/CAREGIVER WILL VERBALIZE/DEMONSTRATE METHODS TO REDUCE AVOIDABLE HOSPITALIZATION AND ED USE BY END OF EPISODE. Goal Provider Goal - PATIENT/CAREGIVER WILL VERBALIZE UNDERSTANDING OF DISCHARGE PLANNING INSTRUCTIONS BY DATE OF DISCHARGE. Goal Provider Goal - PATIENT/CAREGIVER WILL VERBALIZE/DEMONSTRATE EFFECTIVE HOME SAFETY AND FALL PREVENTION STRATEGIES THROUGHOUT CERTIFICATION PERIOD. Goal Provider Goal - PATIENT/CAREGIVER WILL DEMONSTRATE UNDERSTANDING OF PHARMACOLOGIC AND NONPHARMACOLOGIC PAIN CONTROL MEASURES AND PATIENT WILL HAVE IMPROVEMENT IN PAIN INTERFERING WITH ACTIVITY EVIDENCED BY PAIN CONTROLLED AT LEVEL OF 7 OR LESS BY END OF CERTIFICATION PERIOD. Goal Provider Goal - PATIENT/CAREGIVER WILL VERBALIZE UNDERSTANDING OF PRESSURE ULCER PREVENTION BY END OF THE EPISODE. Goal Provider Goal - PATIENT/CAREGIVER WILL VERBALIZE/DEMONSTRATE UNDERSTANDING OF THE MANAGEMENT OF DEPRESSION THROUGHOUT THE CERTIFICATION PERIOD AND SYMPTOMS ARE IDENTIFIED AND MANAGED TO MAINTAIN PATIENT SAFETY IN THE HOME. Goal Provider Goal - PHYSICAL THERAPY EVALUATION TO BE COMPLETED WITH RECOMMENDATIONS AND/OR WRITTEN TREATMENT PLAN OF CARE ESTABLISHED FOR THE PHYSICIANS SIGNATURE PATIENT/CAREGIVER WILL PERFORM THERAPEUTIC EXERCISE/S AND DEMONSTRATE PARTICIPATION IN A HOME PROGRAM TO IMPROVE FUNCTION OF BILATERAL LE'S PATIENT/CAREGIVER WILL DEMONSTRATE SAFE TRANSFERS USING APPROPRIATE ASSISTIVE DEVICE , BODY MECHANICS AND EQUIPMENT TO IMPROVE FUNCTION OF SIT TO STAND TRANSFERS WITH DECREASED OUTSIDE ASSIST PATIENT/CAREGIVER WILL DEMONSTRATE IMPROVED GAIT TECHNIQUES TO MINIMIZE RISK OF INJURY AND INCREASE FUNCTION OF HOUSEHOLD AMBULATION Reason for Visit REMAINS INPATIENT AT TIME OF DISCHARGE Encounters Start Date/Time End Date/Time Encounter Type Admission Type Attending [facility] Facility Care Department Encounter ID Discharge Date Discharge Status Discharge Condition Discharge Reason Percent Goals Met 2023-07-09 00:00:00 2023-11-05 00:00:00 Outpatient RECERTIFIC FRANCA CHANCE [facility] [id number] 2023-11-05 00:00:00 DISCHARGED /TRANSFERR ED TO A SHORT-TERM [facility] REMAINS INPATIENT AT TIME OF DISCHARGE ADMITTED TO HOSPITAL 54.76
[2024-09-17 05:34] LABS: MANUAL DIFF FLAG NO
[2024-09-17 05:55] LABS: Basophils Percent Auto 0.7 % (0-2); Eosinophils Absolute Auto 0.2 X10*3/uL (0.0-0.4); Eosinophils Percent Auto 3.4 % (0-4); Hematocrit 37.1 % (37.0-47.0); Hemoglobin 12.4 g/dl (12.0-16.0); Imm Gran Abs Auto 0.01 X10*3/uL (0.00-0.03); Imm Gran Pct Auto 0.2 % (0.0-0.4); Lymphocytes Absolute Auto 1.6 X10*3/uL (1.2-4.9); Lymphocytes Percent Auto 36.2 % (20-40); Mean Corpuscular HGB Conc 33.4 g/dl (31.0-35.0); Mean Corpuscular Hemoglobin 32.5 pg (27.0-33.0); Mean Corpuscular Volume 97.1 fL (80.0-98.0); Mean Platelet Volume 9.9 fL (9.4-12.3); Monocytes Absolute Auto 0.5 X10*3/uL (0.1-1.2); Monocytes Percent Auto 10.1 % (2-11); Neutrophils Absolute Auto 2.2 x10*3/uL (2.0-8.3); Neutrophils Percent Auto 49.4 % (45-73); Platelet Count 163 X10*3/uL (160-400); Red Blood Count 3.82 X10*6/uL (4.20-5.50); Red Cell Distribution Width 14.6 % (11.0-16.0); White Blood Count 4.5 X10*3/uL (4.8-10.8)
[2024-09-17 06:29] LABS: Alanine Aminotransferase 16 U/L (0-31); Albumin Level 3.4 g/dL (3.5-5.0); Alkaline Phosphatase 73 U/L (39-117); Anion Gap 12 (12-20); Aspartate Amino Transferase 19 U/L (5-31); Bilirubin Direct 0.1 mg/dL (0.0-0.5); Bilirubin Total 0.3 mg/dL (0.0-1.0); Blood Urea Nitrogen 23 mg/dL (9-16); Calcium 9.4 mg/dL (8.4-10.2); Carbon Dioxide 24 mmol/L (22-29); Chloride 108 mmol/L (96-108); Estimated Glomerular Filt Rate > 60; Glucose Random 93 mg/dL (60-115); Potassium 4.2 mmol/L (3.3-5.1); Sodium 140 mmol/L (135-145); Total Protein 5.8 g/dL (6.5-8.0)
[2024-09-17 06:39] LABS: Thyroid Stimulating Hormone 5.89 uIU/mL (0.32-4.0)
[2024-09-17 07:14] LABS: T4 Thyroxine 6.3 ug/dL (4.5-12.0)
[2024-09-18 12:23] LABS: Triiodothyronine T3 Free 2.6 pg/mL (2.3-4.2)
== END 2024-09-17 05:31 | disposition home or self-care (01) ==
LOC: HO.MMNH3L 05:30
PROVIDERS: Visit Provider Family Medicine
DX: I10 Essential (primary) hypertension (principal)
CPT/HCPCS: 36415; 80048; 80076; 84436; 84443; 84481; 85025

== ENCOUNTER 2024-10-02 12:45 | Outpatient (REF) | payer MEDICARE, MEDICAID, SELFPAY ==
[2024-10-02 12:48] LABS: MANUAL DIFF FLAG NO
--- OUTSIDE RECORDS SUMMARY | 2024-10-02 12:48 | XMS_ITS | Clinical Summary ---
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 Active 10-07 [...] 2019-10 00:00: 00 02-19 00:00 :00 No [id number] Per instruc tions Per instructio ns (route: topical) Med Classific ation: Dermatolo gical Lidocaine Viscous 2 % mucosal solution 2019-10 00:00: 00 02-19 00:00 :00 No [id number] Per instruc tions Per instructio ns (route: mucous membrane) Med Classific ation: Mouth-Thr oat-Denta l - Preparati ons loperamide 2 mg capsule 10-11 00:00: 00 02-19 00:00 :00 No [id number] Per instruc tions Per instructio ns (route: oral) Med Classific ation: Gastroint estinal Therapy Agents cholecalcif darryl (vitamin D3) 50 mcg (2,000 unit) capsule 2019-10 00:00: 00 02-19 00:00 :00 No [id number] Per instruc tions DAILY Per instructio ns DAILY (route: oral) Med Classific ation: Electroly te Balance-N utritiona l Products escitalopra m 10 mg tablet 2019-10 00:00: 00 02-19 00:00 :00 No [id number] Per instruc tions Per instructio ns (route: oral) Med Classific ation: Central Nervous System Agents cephalexin 500 mg capsule 10-21 00:00: 00 02-19 00:00 :00 No [id number] Per instruc tions Per instructio ns (route: oral) Med Classific ation: Anti-Infe ctive Agents losartan 25 mg tablet 2019-10-14 00:00: 00 02-19 00:00 :00 No [id number] Per instruc tions DAILY Per instructio ns DAILY (route: oral) Med Classific ation: Cardiovas cular Therapy Agents doxycycline hyclate 100 mg capsule 10-17 00:00: 00 02-19 23:59 :00 No [id number] Per instruc tions TWICE A DAY FOR 7 DAYS Per instructio ns TWICE A DAY FOR 7 DAYS (route: oral) Med Classific ation: Anti-Infe ctive Agents ropinirole 2 mg tablet 10-11 00:00: 00 Yes [id number] 1 tablet 2 TIMES DAILY 1 tablet 2 TIMES DAILY (route: oral) Med Classific ation: Central Nervous System Agents prednisone 20 mg tablet 10-24 00:00: 00 02-19 00:00 :00 No [id number] Per instruc tions Per instructio ns (route: oral) Med Classific ation: Endocrine levofloxaci n 250 mg tablet 10-24 00:00: 00 02-19 00:00 :00 No [id number] Per instruc tions Per instructio ns (route: oral) Med Classific ation: Anti-Infe ctive Agents torsemide 20 mg tablet 2019-10 00:00: 00 04-15 23:59 :00 No [id number] 20 mg EVERY AM 20 mg EVERY AM (route: oral) Med Classific ation: Cardiovas cular Therapy Agents Advair Diskus 250 mcg-50 mcg/dose powder for inhalation 02-19 00:00: 00 Yes [id number] 1 inhalat ion EVERY AM 1 inhalation EVERY AM (route: inhalation ) Med Classific ation: Respirato ry Therapy Agents amiodarone 200 mg tablet 02-19 00:00: 00 Yes [id number] 1 tablet EVERY AM 1 tablet EVERY AM (route: oral) Med Classific ation: Cardiovas cular Therapy Agents atorvastati n 20 mg tablet 02-19 00:00: 00 Yes [id number] 1 tablet BEDTIME 1 tablet BEDTIME (route: oral) Med Classific ation: Cardiovas cular Therapy Agents gabapentin 600 mg tablet 02-19 00:00: 00 08-03 00:00 :00 No [id number] 1 tablet BEDTIME 1 tablet BEDTIME (route: oral) Med Classific ation: Central Nervous System Agents lorazepam 0.5 mg tablet 02-19 00:00: 00 05-15 23:59 :00 No [id number] 1 tablet BEDTIME 1 tablet BEDTIME (route: oral) Med Classific ation: Central Nervous System Agents metoprolol succinate ER 25 mg tablet,exte nded release 24 hr 02-19 00:00: 00 05-15 23:59 :00 No [id number] 37.5 mg EVERY AM 37.5 mg EVERY AM (route: oral) Med Classific ation: Cardiovas cular Therapy Agents cephalexin 500 mg capsule 03-11 00:00: 00 03-25 23:59 :00 No [id number] 1 capsule 2 TIMES DAILY 1 capsule 2 TIMES DAILY (route: oral) Med Classific ation: Anti-Infe ctive Agents citalopram 30 mg capsule 05-15 00:00: 00 Yes [id number] 1 capsule DAILY 1 capsule DAILY (route: oral) Med Classific ation: Central Nervous System Agents Eliquis 5 mg tablet 05-15 00:00: 00 Yes [id number] 1 tablet 2 TIMES DAILY 1 tablet 2 TIMES DAILY (route: oral) Med Classific ation: Hematolog ical Agents Protonix 40 mg tablet,ivelisse yed release 05-15 00:00: 00 Yes [id number] 1 tablet DAILY 1 tablet DAILY (route: oral) Med Classific ation: Gastroint estinal Therapy Agents torsemide 20 mg tablet 05-15 00:00: 00 07-09 23:59 :00 No [id number] 1 tablet DAILY 1 tablet DAILY (route: oral) Med Classific ation: Cardiovas cular Therapy Agents torsemide 20 mg tablet 2022-10 00:00: 00 08-07 23:59 :00 No [id number] 2 tablet 2 TIMES DAILY 2 tablet 2 TIMES DAILY (route: oral) Med Classific ation: Cardiovas cular Therapy Agents gabapentin 300 mg capsule 2022-10 00:00: 00 Yes [id number] 1 capsule BEDTIME 1 capsule BEDTIME (route: oral) Med Classific ation: Central Nervous System Agents Klor-Con M20 mEq tablet,exte nded release 2022-10 00:00: 00 Yes [id number] 1 tablet DAILY 1 tablet DAILY (route: oral) Med Classific ation: Electroly te Balance-N utritiona l Products torsemide 20 mg tablet 2022-10 00:00: 00 Yes [id number] 2 tablet DAILY 2 tablet DAILY (route: oral) Med Classific ation: Cardiovas cular Therapy Agents cephalexin 250 mg tablet 2022-10 00:00: 00 09-17 23:59 :00 No [id number] 1 tablet 4 TIMES DAILY 1 tablet [...] TEACHING, 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, AFIB, OLD OR [code = SKILLED NURSE FOR O/A, TEACHING, 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, AFIB, OLD OR] Future Scheduled Test SKILLED NU RSE FOR [...] CARE WILL BE ESTABLISHED THAT MEETS PATIENT'S JAIL NEEDS AND INCLUDES PATIENT GOAL FOR HOME [...] End Date/Time Encounter Type Admission Type Attending [facility] Facility Care Department Encounter ID Discharge Date Discharge Status Discharge Condition Discharge Reason Percent Goals Met 2023-07-09 00:00:00 2023-11-05 00:00:00 Outpatient RECERTIFIC FRANCA CHANCE [facility] [id number] 2023-11-05 00:00:00 DISCHARGED /TRANSFERR ED TO A SHORT-TERM [facility] REMAINS INPATIENT AT TIME OF DISCHARGE ADMITTED TO HOSPITAL 54.76
[2024-10-02 13:22] LABS: Basophils Percent Auto 0.4 % (0-2); Eosinophils Absolute Auto 0.1 X10*3/uL (0.0-0.4); Eosinophils Percent Auto 2.3 % (0-4); Hematocrit 39.9 % (37.0-47.0); Hemoglobin 13.3 g/dl (12.0-16.0); Imm Gran Abs Auto 0.01 X10*3/uL (0.00-0.03); Imm Gran Pct Auto 0.2 % (0.0-0.4); Lymphocytes Absolute Auto 1.2 X10*3/uL (1.2-4.9); Lymphocytes Percent Auto 24.1 % (20-40); Mean Corpuscular HGB Conc 33.3 g/dl (31.0-35.0); Mean Corpuscular Hemoglobin 32.6 pg (27.0-33.0); Mean Corpuscular Volume 97.8 fL (80.0-98.0); Monocytes Absolute Auto 0.4 X10*3/uL (0.1-1.2); Monocytes Percent Auto 7.6 % (2-11); Neutrophils Absolute Auto 3.2 x10*3/uL (2.0-8.3); Neutrophils Percent Auto 65.4 % (45-73); Platelet Count 190 X10*3/uL (160-400); Red Blood Count 4.08 X10*6/uL (4.20-5.50); Red Cell Distribution Width 14.1 % (11.0-16.0); White Blood Count 4.9 X10*3/uL (4.8-10.8)
[2024-10-02 13:36] LABS: Estimated Average Glucose 117 mg/dL; Hemoglobin A1c % 5.7 % (<6.0); Total Hemoglobin (HGBA1C) 3459.8112 umol/L
[2024-10-02 13:44] LABS: Anion Gap 12 (12-20); Blood Urea Nitrogen 17 mg/dL (9-16); Calcium 8.9 mg/dL (8.4-10.2); Carbon Dioxide 24 mmol/L (22-29); Chloride 107 mmol/L (96-108); Estimated Glomerular Filt Rate > 60; Glucose Random 86 mg/dL (60-115); Sodium 139 mmol/L (135-145); Uric Acid 3.4 mg/dL (2.4-5.7)
== END 2024-10-02 12:46 | disposition home or self-care (01) ==
LOC: HO.MMNH3L 12:45
PROVIDERS: Visit Provider Hospitalist
DX: R52 Pain, unspecified (principal); R60.9 Edema, unspecified; Z13.1 Encounter for screening for diabetes mellitus
CPT/HCPCS: 36415; 80048; 83036; 84550; 85025

== ENCOUNTER 2024-10-12 06:07 | Outpatient (REF) | payer MEDICARE, MEDICAID, SELFPAY ==
[2024-10-12 06:06] LABS: MANUAL DIFF FLAG NO
--- OUTSIDE RECORDS SUMMARY | 2024-10-12 06:09 | XMS_ITS | Clinical Summary ---
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 10-07 00:00: 00 HALFWAY (CURRENT) USE OF ANTICOAGULAN TS Active 10-07 [...] 2019-10 00:00: 00 02-19 00:00 :00 No [id number] Per instruc tions Per instructio ns (route: topical) Med Classific ation: Dermatolo gical Lidocaine Viscous 2 % mucosal solution 2019-10 00:00: 00 02-19 00:00 :00 No [id number] Per instruc tions Per instructio ns (route: mucous membrane) Med Classific ation: Mouth-Thr oat-Denta l - Preparati ons loperamide 2 mg capsule 10-11 00:00: 00 02-19 00:00 :00 No [id number] Per instruc tions Per instructio ns (route: oral) Med Classific ation: Gastroint estinal Therapy Agents cholecalcif darryl (vitamin D3) 50 mcg (2,000 unit) capsule 2019-10 00:00: 00 02-19 00:00 :00 No [id number] Per instruc tions DAILY Per instructio ns DAILY (route: oral) Med Classific ation: Electroly te Balance-N utritiona l Products escitalopra m 10 mg tablet 2019-10 00:00: 00 02-19 00:00 :00 No [id number] Per instruc tions Per instructio ns (route: oral) Med Classific ation: Central Nervous System Agents cephalexin 500 mg capsule 10-21 00:00: 00 02-19 00:00 :00 No [id number] Per instruc tions Per instructio ns (route: oral) Med Classific ation: Anti-Infe ctive Agents losartan 25 mg tablet 2019-10-14 00:00: 00 02-19 00:00 :00 No [id number] Per instruc tions DAILY Per instructio ns DAILY (route: oral) Med Classific ation: Cardiovas cular Therapy Agents doxycycline hyclate 100 mg capsule 10-17 00:00: 00 02-19 23:59 :00 No [id number] Per instruc tions TWICE A DAY FOR 7 DAYS Per instructio ns TWICE A DAY FOR 7 DAYS (route: oral) Med Classific ation: Anti-Infe ctive Agents ropinirole 2 mg tablet 10-11 00:00: 00 Yes [id number] 1 tablet 2 TIMES DAILY 1 tablet 2 TIMES DAILY (route: oral) Med Classific ation: Central Nervous System Agents prednisone 20 mg tablet 10-24 00:00: 00 02-19 00:00 :00 No [id number] Per instruc tions Per instructio ns (route: oral) Med Classific ation: Endocrine levofloxaci n 250 mg tablet 10-24 00:00: 00 02-19 00:00 :00 No [id number] Per instruc tions Per instructio ns (route: oral) Med Classific ation: Anti-Infe ctive Agents torsemide 20 mg tablet 2019-10 00:00: 00 04-15 23:59 :00 No [id number] 20 mg EVERY AM 20 mg EVERY AM (route: oral) Med Classific ation: Cardiovas cular Therapy Agents Advair Diskus 250 mcg-50 mcg/dose powder for inhalation 02-19 00:00: 00 Yes [id number] 1 inhalat ion EVERY AM 1 inhalation EVERY AM (route: inhalation ) Med Classific ation: Respirato ry Therapy Agents amiodarone 200 mg tablet 02-19 00:00: 00 Yes [id number] 1 tablet EVERY AM 1 tablet EVERY AM (route: oral) Med Classific ation: Cardiovas cular Therapy Agents atorvastati n 20 mg tablet 02-19 00:00: 00 Yes [id number] 1 tablet BEDTIME 1 tablet BEDTIME (route: oral) Med Classific ation: Cardiovas cular Therapy Agents gabapentin 600 mg tablet 02-19 00:00: 00 08-03 00:00 :00 No [id number] 1 tablet BEDTIME 1 tablet BEDTIME (route: oral) Med Classific ation: Central Nervous System Agents lorazepam 0.5 mg tablet 02-19 00:00: 00 05-15 23:59 :00 No [id number] 1 tablet BEDTIME 1 tablet BEDTIME (route: oral) Med Classific ation: Central Nervous System Agents metoprolol succinate ER 25 mg tablet,exte nded release 24 hr 02-19 00:00: 00 05-15 23:59 :00 No [id number] 37.5 mg EVERY AM 37.5 mg EVERY AM (route: oral) Med Classific ation: Cardiovas cular Therapy Agents cephalexin 500 mg capsule 03-11 00:00: 00 03-25 23:59 :00 No [id number] 1 capsule 2 TIMES DAILY 1 capsule 2 TIMES DAILY (route: oral) Med Classific ation: Anti-Infe ctive Agents citalopram 30 mg capsule 05-15 00:00: 00 Yes [id number] 1 capsule DAILY 1 capsule DAILY (route: oral) Med Classific ation: Central Nervous System Agents Eliquis 5 mg tablet 05-15 00:00: 00 Yes [id number] 1 tablet 2 TIMES DAILY 1 tablet 2 TIMES DAILY (route: oral) Med Classific ation: Hematolog ical Agents Protonix 40 mg tablet,ivelisse yed release 05-15 00:00: 00 Yes [id number] 1 tablet DAILY 1 tablet DAILY (route: oral) Med Classific ation: Gastroint estinal Therapy Agents torsemide 20 mg tablet 05-15 00:00: 00 07-09 23:59 :00 No [id number] 1 tablet DAILY 1 tablet DAILY (route: oral) Med Classific ation: Cardiovas cular Therapy Agents torsemide 20 mg tablet 2022-10 00:00: 00 08-07 23:59 :00 No [id number] 2 tablet 2 TIMES DAILY 2 tablet 2 TIMES DAILY (route: oral) Med Classific ation: Cardiovas cular Therapy Agents gabapentin 300 mg capsule 2022-10 00:00: 00 Yes [id number] 1 capsule BEDTIME 1 capsule BEDTIME (route: oral) Med Classific ation: Central Nervous System Agents Klor-Con M20 mEq tablet,exte nded release 2022-10 00:00: 00 Yes [id number] 1 tablet DAILY 1 tablet DAILY (route: oral) Med Classific ation: Electroly te Balance-N utritiona l Products torsemide 20 mg tablet 2022-10 00:00: 00 Yes [id number] 2 tablet DAILY 2 tablet DAILY (route: oral) Med Classific ation: Cardiovas cular Therapy Agents cephalexin 250 mg tablet 2022-10 00:00: 00 09-17 23:59 :00 No [id number] 1 tablet 4 TIMES DAILY 1 tablet [...] TEACHING, 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, AFIB, OLD [place] [code = SKILLED NURSE FOR O/A, TEACHING, 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, AFIB, OLD DC] Future Scheduled Test SKILLED NU RSE FOR [...] CARE WILL BE ESTABLISHED THAT MEETS PATIENT'S SENIOR LIVING NEEDS AND INCLUDES PATIENT GOAL FOR HOME [...] Date/Time Encounter Type Admission Type Attending [facility] Facility Care Department Encounter ID Discharge Date Discharge Status Discharge Condition Discharge Reason Percent Goals Met 2023-07-09 00:00:00 2023-11-05 00:00:00 Outpatient RECERTIFIC FRANCA CHANCE [facility] [id number] 2023-11-05 00:00:00 DISCHARGED /TRANSFERR ED TO A SHORT-TERM [facility] REMAINS INPATIENT AT TIME OF DISCHARGE ADMITTED TO HOSPITAL 54.76
--- OUTSIDE RECORDS SUMMARY | 2024-10-12 06:09 | XMS_ITS | Clinical Summary ---
Author Organization Unknown Care Team Providers Care Security And Privacy Consultant Name Role Phone JANEL DIAZ, ABAD Unavailable Unavailable JASON RN, FRANCA Unavailable Unavailable REID PT, BERT Unavailable Unavailable Payers Payer Name Policy Type Policy Number Effective Date Expira tion Date MEDICARE - NGS [place] - PDGM [id number] Problems Condition Name Condition Details Condition Category [...] 10-07 00:00: 00 ATHSCL HEART DISEASE OF [place] CORONARY ARTERY W/O ANG PCTRS Active 10-07 [...] to health literacy Active 10-07 00:00: 00 PROBATE PARALEGAL (CURRENT) USE OF INHALED STEROIDS Active 10-07 00:00: 00 RESIDENTIAL (CURRENT) USE OF ANTICOAGULAN TS Active 10-07 [...] 2019-10 00:00: 00 02-19 00:00 :00 No [id number] Per instruc tions Per instructio ns (route: topical) Med Classific ation: Dermatolo gical Lidocaine Viscous 2 % mucosal solution 2019-10 00:00: 00 02-19 00:00 :00 No [id number] Per instruc tions Per instructio ns (route: mucous membrane) Med Classific ation: Mouth-Thr oat-Denta l - Preparati ons loperamide 2 mg capsule 10-11 00:00: 00 02-19 00:00 :00 No [id number] Per instruc tions Per instructio ns (route: oral) Med Classific ation: Gastroint estinal Therapy Agents cholecalcif darryl (vitamin D3) 50 mcg (2,000 unit) capsule 2019-10 00:00: 00 02-19 00:00 :00 No [id number] Per instruc tions DAILY Per instructio ns DAILY (route: oral) Med Classific ation: Electroly te Balance-N utritiona l Products escitalopra m 10 mg tablet 2019-10 00:00: 00 02-19 00:00 :00 No [id number] Per instruc tions Per instructio ns (route: oral) Med Classific ation: Central Nervous System Agents cephalexin 500 mg capsule 10-21 00:00: 00 02-19 00:00 :00 No [id number] Per instruc tions Per instructio ns (route: oral) Med Classific ation: Anti-Infe ctive Agents losartan 25 mg tablet 2019-10-14 00:00: 00 02-19 00:00 :00 No [id number] Per instruc tions DAILY Per instructio ns DAILY (route: oral) Med Classific ation: Cardiovas cular Therapy Agents doxycycline hyclate 100 mg capsule 10-17 00:00: 00 02-19 23:59 :00 No [id number] Per instruc tions TWICE A DAY FOR 7 DAYS Per instructio ns TWICE A DAY FOR 7 DAYS (route: oral) Med Classific ation: Anti-Infe ctive Agents ropinirole 2 mg tablet 10-11 00:00: 00 Yes [id number] 1 tablet 2 TIMES DAILY 1 tablet 2 TIMES DAILY (route: oral) Med Classific ation: Central Nervous System Agents prednisone 20 mg tablet 10-24 00:00: 00 02-19 00:00 :00 No [id number] Per instruc tions Per instructio ns (route: oral) Med Classific ation: Endocrine levofloxaci n 250 mg tablet 10-24 00:00: 00 02-19 00:00 :00 No [id number] Per instruc tions Per instructio ns (route: oral) Med Classific ation: Anti-Infe ctive Agents torsemide 20 mg tablet 2019-10 00:00: 00 04-15 23:59 :00 No [id number] 20 mg EVERY AM 20 mg EVERY AM (route: oral) Med Classific ation: Cardiovas cular Therapy Agents Advair Diskus 250 mcg-50 mcg/dose powder for inhalation 02-19 00:00: 00 Yes [id number] 1 inhalat ion EVERY AM 1 inhalation EVERY AM (route: inhalation ) Med Classific ation: Respirato ry Therapy Agents amiodarone 200 mg tablet 02-19 00:00: 00 Yes [id number] 1 tablet EVERY AM 1 tablet EVERY AM (route: oral) Med Classific ation: Cardiovas cular Therapy Agents atorvastati n 20 mg tablet 02-19 00:00: 00 Yes [id number] 1 tablet BEDTIME 1 tablet BEDTIME (route: oral) Med Classific ation: Cardiovas cular Therapy Agents gabapentin 600 mg tablet 02-19 00:00: 00 08-03 00:00 :00 No [id number] 1 tablet BEDTIME 1 tablet BEDTIME (route: oral) Med Classific ation: Central Nervous System Agents lorazepam 0.5 mg tablet 02-19 00:00: 00 05-15 23:59 :00 No [id number] 1 tablet BEDTIME 1 tablet BEDTIME (route: oral) Med Classific ation: Central Nervous System Agents metoprolol succinate ER 25 mg tablet,exte nded release 24 hr 02-19 00:00: 00 05-15 23:59 :00 No [id number] 37.5 mg EVERY AM 37.5 mg EVERY AM (route: oral) Med Classific ation: Cardiovas cular Therapy Agents cephalexin 500 mg capsule 03-11 00:00: 00 03-25 23:59 :00 No [id number] 1 capsule 2 TIMES DAILY 1 capsule 2 TIMES DAILY (route: oral) Med Classific ation: Anti-Infe ctive Agents citalopram 30 mg capsule 05-15 00:00: 00 Yes [id number] 1 capsule DAILY 1 capsule DAILY (route: oral) Med Classific ation: Central Nervous System Agents Eliquis 5 mg tablet 05-15 00:00: 00 Yes [id number] 1 tablet 2 TIMES DAILY 1 tablet 2 TIMES DAILY (route: oral) Med Classific ation: Hematolog ical Agents Protonix 40 mg tablet,ivelisse yed release 05-15 00:00: 00 Yes [id number] 1 tablet DAILY 1 tablet DAILY (route: oral) Med Classific ation: Gastroint estinal Therapy Agents torsemide 20 mg tablet 05-15 00:00: 00 07-09 23:59 :00 No [id number] 1 tablet DAILY 1 tablet DAILY (route: oral) Med Classific ation: Cardiovas cular Therapy Agents torsemide 20 mg tablet 2022-10 00:00: 00 08-07 23:59 :00 No [id number] 2 tablet 2 TIMES DAILY 2 tablet 2 TIMES DAILY (route: oral) Med Classific ation: Cardiovas cular Therapy Agents gabapentin 300 mg capsule 2022-10 00:00: 00 Yes [id number] 1 capsule BEDTIME 1 capsule BEDTIME (route: oral) Med Classific ation: Central Nervous System Agents Klor-Con M20 mEq tablet,exte nded release 2022-10 00:00: 00 Yes [id number] 1 tablet DAILY 1 tablet DAILY (route: oral) Med Classific ation: Electroly te Balance-N utritiona l Products torsemide 20 mg tablet 2022-10 00:00: 00 Yes [id number] 2 tablet DAILY 2 tablet DAILY (route: oral) Med Classific ation: Cardiovas cular Therapy Agents cephalexin 250 mg tablet 2022-10 00:00: 00 09-17 23:59 :00 No [id number] 1 tablet 4 TIMES DAILY 1 tablet [...] 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, 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, 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, [employer]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[employer] [code = 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 O/A, 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, 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, 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, [employer]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 [employer]] Future Scheduled Test SKILLED NU RSE FOR [...] CARE WILL BE ESTABLISHED THAT MEETS PATIENT'S LONGTERM NEEDS AND INCLUDES PATIENT GOAL FOR HOME [...] Date/Time Encounter Type Admission Type Attending [facility] Facility Care Department Encounter ID Discharge Date Discharge Status Discharge Condition Discharge Reason Percent Goals Met 2023-07-09 00:00:00 2023-11-05 00:00:00 Outpatient RECERTIFIC [facility] [id number] 2023-11-05 00:00:00 DISCHARGED /TRANSFERR ED TO A SHORT-TERM [facility] FOR INPATIENT CARE REMAINS INPATIENT AT TIME OF DISCHARGE ADMITTED TO HOSPITAL 54.76
[2024-10-12 06:36] LABS: Basophils Percent Auto 0.7 % (0-2); Eosinophils Absolute Auto 0.1 X10*3/uL (0.0-0.4); Eosinophils Percent Auto 3.1 % (0-4); Hematocrit 39.4 % (37.0-47.0); Hemoglobin 12.9 g/dl (12.0-16.0); Imm Gran Abs Auto 0.01 X10*3/uL (0.00-0.03); Imm Gran Pct Auto 0.2 % (0.0-0.4); Lymphocytes Absolute Auto 1.3 X10*3/uL (1.2-4.9); Lymphocytes Percent Auto 29.6 % (20-40); Mean Corpuscular HGB Conc 32.7 g/dl (31.0-35.0); Mean Corpuscular Hemoglobin 32.5 pg (27.0-33.0); Mean Corpuscular Volume 99.2 fL (80.0-98.0); Mean Platelet Volume 9.6 fL (9.4-12.3); Monocytes Absolute Auto 0.5 X10*3/uL (0.1-1.2); Monocytes Percent Auto 10.4 % (2-11); Neutrophils Absolute Auto 2.5 x10*3/uL (2.0-8.3); Platelet Count 191 X10*3/uL (160-400); Red Blood Count 3.97 X10*6/uL (4.20-5.50); White Blood Count 4.5 X10*3/uL (4.8-10.8)
[2024-10-12 06:57] LABS: Anion Gap 11 (12-20); Blood Urea Nitrogen 21 mg/dL (9-16); Calcium 9.1 mg/dL (8.4-10.2); Carbon Dioxide 22 mmol/L (22-29); Chloride 110 mmol/L (96-108); Estimated Glomerular Filt Rate > 60; Glucose Random 99 mg/dL (60-115); Potassium 3.9 mmol/L (3.3-5.1); Sodium 139 mmol/L (135-145)
== END 2024-10-12 06:08 | disposition home or self-care (01) ==
LOC: HO.MMNH3L 06:07
PROVIDERS: Visit Provider Nurse Practitioner
DX: I48.92 Unspecified atrial flutter (principal)
CPT/HCPCS: 36415; 80048; 85025

== ENCOUNTER 2024-11-09 06:15 | Outpatient (REF) | payer MEDICARE, MEDICAID, SELFPAY ==
[2024-11-09 06:04] LABS: MANUAL DIFF FLAG NO
--- OUTSIDE RECORDS SUMMARY | 2024-11-09 06:18 | XMS_ITS | Data Portability ---
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 Exam: AAOx3, NAD, sitting in chair, wearing face mask, speaking full sentences no evidence of increased resp. effort no rhinorrhea no pharyngeal erythema no LAD RRR, no murmur lungs fine scattered exp wheeze to LLL abd: soft, BS x 4 DDx considered, but not limited to: COPD exacerbation vs. viral syndrome vs. COVID vs. PNA Work up/Results: rapid COVID + CXR ordered Plan/Discussion: Stable, overweight 86 female who is vaccinated with both pfizer doses and booster, who tested positive for COVID today during visit. She complains of fatigue, however is alert responsive, and able to live independently without any assistance. Able to get dressed and ambulate with rolling walker. She is high risk as she has COPD and asthma, but reports being compliant with her advair and ellipta. On exam she had fine scattered exp wheeze to LLL. Will obtain CXR and order z-geno. First dose administered on scene. Pt reports she needs refill for albuterol. New rx to be sent every 4-6 hrs as needed for wheezing and SOB. Advised to use supportive therapy and symptomatic management. Stay well hydrated. Isolate. Follow CDC recommendations. if you develop any evidence SOB, difficulty breathing, CP, palpitations, dizziness, change in mental status, unilateral weakness, numbness, tingling, please seek immediate care via 911. Patient verbalized understanding and agrees to plan of care. Proper Personal Protective Equipment (PPE), including gloves, eye protection, N95 mask, gown were donned and doffed appropriately and all equipment cleaned using approved technique with germicidal disposable wipes prior to and after care of this patient according to [facility]'s infection prevention protocols. Not available 08/31/2021 20:13:40 09/02/2021 09/02/2021 Overview/History : 86 year old female, with PMH of asthma, COPD, known to and provider, who tested positive for COVID on 08/31/2021 scheduled today for re-evaluation and O2 monitoring. Exam: AAOx3, fatigued, NAD, wearing face mask moist mucous membranes RRR, no murmur lungs CTAB, no wheezing or rhonchi, no increased respiratory effort or use of accessory muscles DDx considered, but not limited to: COVID positive PNA: CXR revealing right mid and lower lobe opacities associated with COVID positive Work up/Results: none Plan/Discussion: high risk 86 year old female with chronic co morbities consisting of COPD, asthma, CAD, HTN, HLD, who recently tested positive for COVID x 2 days ago. Pt currently on z-geno. Pt was scheduled for close re-evaluation. pt is afebrile, with good air movement bilaterally, currently on z-geno. Pt would be a candidate for monoclonal antibody infusion, however patient refuses to leave her apartment. She reports that she will closely monitor her symptoms and take medication as directed. Pt is advised that if she develops any increased SOB, difficulty breathing, CP, palpitations, extreme fatigue, then patient needs to call 911 and go to the ED for immediate medical attention. Pt is oxygenating 96% on RA with increased RR at 22, but no use of accessory muscles, tripod position, and speaking full sentences without any acute distress. Proper Personal Protective Equipment (PPE), including gloves, eye protection, N95 mask, gown, and shoe covers were donned and doffed appropriately and all equipment cleaned using approved technique with germicidal disposable wipes prior to and after care of this patient according to [facility]'s infection prevention protocols. Not available 09/02/2021 22:38:16 03/21/2022 03/21/2022 Overview/History : 86 yo F established with new to this provider presents for evaluation of wounds to both lower legs s/p fall in February. The left wound failed to close with sutures and she developed an infection as well. She is followed by [facility] for wound care of both legs. She has developed burning pain with and redness to both wounds worse on the left. [facility] is coming in every two days to perform wound assessment and dressing changes. F/u with PCP in 03/30/22. Exam: General appearance: healthy-appearin g, well-nourished, well-developed. NAD Psychiatric: good judgement Mental Status: active and alert, normal mood, normal affect Pulmonary: no dyspnea, LSCTA good air movement, no wheezing, no rales/crackles, no rhonchi Cardiovascular: RRR, normal S1, normal S2, no murmurs Pulses: normal 2+. Musculoskeletal: normal tone. Normal movement of all extremities. 2+ plus non pitting edema bilateral lower extremities Skin: no rash, The right lower middleton 3x2 cm with yellow slough. There some erythema noted no warmth mild tenderness. The left leg has an irregular open wound with yellow slough that was cleaned with erythema noted to the circumference and induration to the upper portion of the wound. Calcium algenate replaced to the wound bed and both legs were wrapped with kerlex. Vital Signs: T 98.5 HR 71 BP 116/68 RR 16 SpO2 97% RA DDx considered, but not limited to: cellulitis, abscess This is an 86 yo F who is receiving wound care for wounds to both lower extremities that were sustained approximately 1 month ago after fall. She does have chronic edema to BLE and the laceration on the left leg failed to close after being sutured and has been slowly healing with wound care. She developed redness and a burning pain x 2 days to the left extremity that is consistent with cellulitis. [facility] is in every 2 days to evaluate and change dressings. She has had no fevers. Will initiate antibiotic therapy and have patient f/u with PCP as scheduled next week. Work up/Results: none Plan/Discussion: Patient advised to elevate legs when not ambulating to reduce edema. New Rx Keflex 500 mg four times a day x 7 days. First dose given on scene. The patient is advised to keep the appt with PCP in next week to discuss ongoing symptoms/ further management. The patient is also advised to go to the ED immediately for any worsening symptoms. The patient understood and agreed with this plan. The patient was given discharge instructions and all questions were answered prior to DH team departure. Proper Personal Protective Equipment (PPE), including gloves, eye protection and masks were donned and doffed appropriately and all equipment cleaned using approved technique with germicidal disposable wipes prior to and after care of this patient according to [facility]'s infection prevention protocols. [email or web address] Not available 03/21/2022 20:18:44 Plan of Treatment Reminders Order Date Submit Date Provider Last Modified By Organization Details Last Modified Time Details Appointments None recorded. Lab rapid SARS CoV + SARS CoV 2 Ag, QL IA, respiratory specimen 2020 escobar 3 [facility], [address] [place] [address], [id number], 11:23:08 Referral None recorded. Procedures None recorded. Surgeries None recorded. Imaging XR, chest, 2 view 2020 021 [email or web address] [facility] [facility] ([facility] [employer]), [address] [place] [address], [id number], 1 16:59:08 XR, foot, 3 or more view - r/o right 2nd toe fracture. call pt @ 2021 022 [email or web address] [facility] [facility] ([facility] [employer]), [address] [place] [address], [address], 2 10:17:17 US, duplex, venous, extremity, limited - swelling of left lower extremity, s/p fall and wound to left lower extremity r/o DVTpt is homebound,d oes not drive 2021 022 MAGDY [facility] ([facility] [employer]), [address] [place] [address], [address], 2 18:21:15 Medication Orders azithromyci n 250 mg tablet 2020 021 [email or web address] 0 [id number], [address] [place], [address], 13:35:29 cephalexin 500 mg capsule 2021 022 [email or web address] [id number], [address] [place], [address], 15:51:19 cephalexin 500 mg capsule 2021 022 [email or web address] [id number], [address] [place], [address], 16:20:51 cephalexin 500 mg capsule 2021 022 MAGDY [id number], [address] [place], [address], 16:21:00 Patient TargetsNo targets recorded. Patient Instructions Encounter Date Encounter Id Patient Instructions Last Modified By Organization Details Last Modified Time 08/31/2021 [id number] What is coronavi ethel disease 2019? Coronavirus disease 2019 (COVID-19) is a respiratory illness that can spread from person to person. The virus that causes COVID-19 is a novel coronavirus that was first identified during an investigation into an outbreak in [facility]. Can I get COVID-19? Yes. COVID-19 is spreading from person to person in parts of the world. Risk of infection from the virus that causes COVID-19 is higher for people who are close contacts of someone known to have COVID-19, for example household members. Other people at higher risk for infection are those who live in or have recently been in an area with ongoing spread of COVID-19. How does COVID-19 spread? The virus that causes COVID-19 probably emerged from an animal source, but is now spreading from person to person. The virus is thought to spread mainly between people who are in close contact with one another (within about 6 feet) through respiratory droplets produced when an infected person coughs or sneezes. It also may be possible that a person can get COVID-19 by touching a surface or object that has the virus on it and then touching their own mouth, nose or possibly their eyes, but this is not thought to be the main way the virus spreads. What are the symptoms of COVID-19? Patients with COVID-19 have mild to severe respiratory illness with symptoms of: fever cough shortness of breath What are severe complications from this virus? Some patients have pneumonia in both lungs, multi-organ failure and in some cases . People can help protect themselves from respiratory illness with everyday preventative actions. Avoid close contact with people who are sick. Avoid touching your eyes, nose, and mouth with unwashed hands. Wash your hands often with soap and water for at least 20 seconds. Use an alcohol-based hand hair preparer that contains at least 60% alcohol if soap and water are not available If you are sick, to keep from spreading respiratory illness to others, you should Stay home when you are sick. Cover your cough or sneeze with a tissue, then throw the tissue in the trash. Clean and disinfect frequently touched objects and surfaces. Is there a treatment? There is no specific antiviral treatment for COVID-19. People with COVID-19 can seek medical care to help relieve symptoms. FOR MORE INFORMATION: [email or web address].[email or web address] [email or web address] Not available 08/31/2021 20:08:37 Based on the patient? s history of presenting illness, it was determined that a test for COVID-19 was indicated. The [place] FDA has made this test available under an emergency access mechanism called an Emergency Use Authorization (EUA). The EUA is supported by the [facility] [employer] of Health and Human Service? s (HHS? s ) declaration that circumstances exist to justify the emergency use of diagnostics (IVDs) for the detection and/or diagnosis of the virus that causes COVID-19. Based on the positive nature of the test, the patient has been advised to socially isolate and to follow CDC recommendations, to follow up with their healthcare provider and to seek further care should their condition persist or worsen. Not available 08/31/2021 20:06:42 09/02/2021 [id number] Thank you for yo ur visit with Smish today. We cannot always find the exact cause of your symptoms during your initial visit. Please follow up with your primary care provider or specialist within 12-24 hours within 24-48 hours within 2-3 days to be rechecked or seek medical attention if your symptoms do not go away or get worse. If you develop any new or worsening symptoms and need after hours care, please go to nearest ER and/or call 911. If you have additional concerns or develop a change in your condition between 8am-10pm, please call [facility] at [phone] to help navigate your care. Not available 09/02/2021 22:29:43 12/08/2021 [id number] Thank you for yo ur visit with Smish today. We cannot always find the exact cause of your symptoms during your initial visit. Please follow up with your primary care provider or specialist to be rechecked or seek medical attention if your symptoms do not go away or get worse. If you develop any new or worsening symptoms and need after hours care, please go to nearest ER and/or call 911. If you have additional concerns or develop a change in your condition between 8am-10pm, please call Smish at [phone] to help navigate your care. Thank you for your visit with Smish today. You do not appear to have a fracture or dislocation that requires immediate surgical intervention. However, small breaks or ligament tears may not be obvious on initial examination. Given this concern, we may have placed you in a temporary splint. If an xray is indicated, we will help direct you to the best option to obtain your imaging study. We have also given you follow up directions. Please follow up with your primary care physician or specialist as directed. If you develop any new or worsening symptoms and need after hours care, please go to nearest ER and/or call 911. If you have additional concerns or develop a change in your condition between 8am-10pm, please call Smish at [phone] to help navigate your care. [email or web address] Not available 12/08/2021 17:46:11 03/21/2022 [id number] Thank you for yo ur visit with Smish today. You may have had laboratory tests or cultures performed today. At this time, we do not feel that you have an infection that requires hospitalization. However, infections can get worse, even with antibiotics. If you have worsening redness, pain or fever, go immediately to the Emergency Department. Please follow up with your primary care provider or with the specialist referral you were given, within 12-24 hours to be re-examined. If you develop any new or worsening symptoms and need after hours care, please go to nearest ER and/or call 911. If you have additional concerns or develop a change in your condition between 8am-10pm, please call [facility] at [phone] to help navigate your care. [email or web address] Not available 03/21/2022 17:19:04 Reason for Referral None Reported. Results Created Date Observation Date Name Description Value Unit Range Abnormal Flag Note LastModifiedBy Organization Detail LastModifiedTime 08/31/20 21 08/31/2021 rapid SARS CoV + SARS CoV 2 Ag, QL IA, respi rator y speci men Covid-19 (ref: neg) positi ve Not Available [facility] [address] [place], [address], 08/31/2021 11:22:25 08/31/20 21 08/31/2021 rapid SARS CoV + SARS CoV 2 Ag, QL IA, respi rator y speci men Control Visual ized/V alid Not Available [facility] [address] [place], [address], 08/31/2021 11:22:25 08/31/20 21 08/31/2021 rapid SARS CoV + SARS CoV 2 Ag, QL IA, respi rator y speci men Location [facility], [facility] missael s , [address] [place] [address], [id number] Not Available [facility] [address] [place], [address], 08/31/2021 11:22:25 08/31/20 21 08/31/2021 rapid SARS CoV + SARS CoV 2 Ag, QL IA, respi rator y speci men Race & Ethnicity Other White Not Available [facility] [address] [place], [address], 08/31/2021 11:22:25 08/31/20 21 08/31/2021 rapid SARS CoV + SARS CoV 2 Ag, QL IA, respi rator y speci men Language Englis h Not Available [facility] [address], [place], [address], 08/31/2021 11:22:25 09/01/20 21 XR, chest , 2 view No observ ation record ed. [facility] [employer] [address] [facility], [place], [address], 09/02/2021 18:27:35 03/02/20 22 03/02/2022 venou s doppl er extre m/sanchez VENOUS DOPPLE R EXTREM /SANCHEZ, LEFT Compar berenice: 2020 FINDIN GS: There is no eviden ce for deep venous thromb osis in the left common femora l, deep femora l, femora l and poplit eal veins. The left calf veins are patent . The right common femora l vein is patent . CONCLU DAGO: No eviden ce for deep venous thromb osis in the the visual ized veins of the left lower extrem ity. ELECTR ONICAL LY SIGNED BY MACHELLE MIRAMONTES M.D. 022 6:10:3 5 PM EDT. VENOUS DOPPLE R EXTREM /SANCHEZ, LEFT Compar berenice: 2020 Result s: There is no eviden ce for deep venous thromb osis in the left common femora l, deep femora l, femora l and poplit eal veins. The left calf veins are patent . The right common femora l vein is patent . Conclu dago: No eviden ce for deep venous thromb osis in the the visual ized veins of the left lower extrem ity. Electr onical ly signed by MACHELLE MIRAMONTES M.D. 022 6:10:3 5 PM EDT. [email or web address] [facility] [address] [facility] [address], [place], [address], 03/04/2022 22:42:26 Result Notes None recorded. Problems Name Problem SNOMED Code Status Onset Date Resolution Date Notes Provider Name and Address Organization Details Recorded Time Hypertensive disorder 92387465 Active 2018 [place] [facility] 17:08:43 Hypertensive disorder 32254838 Active 2019 [place] [facility] 17:08:43 Problem Notes None recorded. Procedures Surgical History Date Name Laterality Status Provider Name and Address Organization Details Recorded Time Medication Review completed Shania Marrero NP [address], [place], [address], [place] [facility] 10/22/2020 12:08:57 021 IV Start Procedure - completed JOSSE SALGADO NP [address] [place], [address], [place] [facility] 10/20/2020 12:39:22 020 Venipuncture - completed TAE SESAY [address], [place], [address], [place] [facility] 10/27/2019 23:49:05 cholecystectomy completed Carly DUBON NP [address] [place], [address], [place] [facility] 08/31/2021 11:12:48 hysterectomy completed Carly MCKEON NP [address] [place], [address], [place] [facility] 08/31/2021 11:12:58 Cabg vein four completed Carly MCKEON NP [address], [place], [address], [place] [facility] 08/31/2021 11:13:24 Imaging Results Imaging Date Name Status LastModified by Organfredrick fontaine Details LastModified Time 09/01/2021 XR, chest, 2 view completed [email or web address] [facility] ([employer]) [address] [place] [address], [place], [address], 09/02/2021 18:27:35 03/02/2022 venous doppler extrem/sanchez completed [email or web address] [facility] [address] [facility] [address], [place], [address], 03/04/2022 22:42:26 Procedure Notes None recorded. Medical Equipment None Reported. Allergies No known drug allergies Medications Name Sig Start Date Stop Date Status Note LastModified by Organization Details LastModified Time amoxicillin 500 mg capsule TAKE 4 CAPSULES BY MOUTH ONCE 30-60 MINUTES PRIOR TO SURGICAL PROCEDURE active Not Available Not Available No t Available buspirone 5 mg tablet 1 tab PO OD 02/28 completed Not Available Not Available Not Available cilostazol 100 mg tablet TAKE 1/2 TABLET BY MOUTH DAILY active Not Available Not Available No t Available prednisone 10 mg tablet 12/25 completed Not Available Not Available Not Available doxycycline hyclate 100 mg capsule Take 1 capsule every day by oral route for 1 day. 04/03 completed Not Available Not Available Not Available atorvastati n 20 mg tablet TK 1 T PO D FOR 90 DAYS active Not Available Not Available No t Available torsemide 20 mg tablet TAKE 1 TABLET BY MOUTH EVERY DAY active Not Available Not Available No t Available tizanidine 2 mg tablet Take 1 tablet every 8 hours by oral route for 5 days. 12/25 completed Not Available Not Available Not Available loperamide 2 mg capsule PLEASE SEE ATTACHED FOR DETAILED DIRECTION S active Not Available Not Available No t Available azithromyci n 250 mg tablet TAKE 2 TABLETS (500 MG) BY ORAL ROUTE ONCE DAILY FOR 1 DAY THEN 1 TABLET (250 MG) BY ORAL ROUTE ONCE DAILY FOR 4 DAYS 02/28 completed Not Available Not Available Not Available nitroglycer in 0.3 mg sublingual tablet 1 TABLET SUBLINGUA L EVERY 5 MINUTES NEEDED FOR CHEST PAIN 02/28 completed Not Available Not Available Not Available ibuprofen 800 mg tablet TAKE 1 TABLET BY MOUTH 3 TIMES DAILY FOR 5 DAYS. active Not Available Not Available No t Available cilostazol 50 mg tablet 03/21 completed Not Available Not Available Not Available Lidocaine Viscous 2 % mucosal solution 08/31 completed Not Available Not Available Not Available tizanidine 4 mg tablet TAKE 1/2 TABLET BY MOUTH AT BEDTIME 02/28 completed Not Available Not Available Not Available amiodarone 200 mg tablet active Not Available Not Available Not Available prednisone 20 mg tablet 04/03 completed Not Available Not Available Not Available sertraline 100 mg tablet 1 tab po od 02/28 completed Not Available Not Available Not Available Advair Diskus 100 mcg-50 mcg/dose powder for inhalation Inhale 1 puff twice a day by inhalatio n route. 08/31 completed Not Available Not Available Not Available potassium chloride ER 10 mEq tablet,exte nded release 08/31 completed Not Available Not Available Not Available levofloxaci n 250 mg tablet 04/03 completed Not Available Not Available Not Available ceftriaxone 1 gram intravenous solution 1 G IVPB administe red on scene. Time administe red: 1215 04/03 completed Not Available Not Available Not Available tramadol 50 mg tablet TAKE 1/2 TABLET BY MOUTH EVERY 12 HOURS NEEDED FOR SEVERE PAIN. WATCH OUT FOR CONSTIPAT ION. active Not Available Not Available No t Available triamcinolo ne acetonide 0.1 % topical cream APPLY TO AFFECTED AREA TWICE A DAY active Not Available Not Available No t Available ketorolac 30 mg/mL (1 mL) injection solution 15 mg administe red on scene. Time administe red: 1710 10/27 completed Not Available Not Available Not Available lorazepam 0.5 mg tablet TAKE 1 TABLET BY MOUTH EVERY DAY NEEDED active Not Available Not Available No t Available triamcinolo ne acetonide 0.1 % dental paste 02/23 completed Not Available Not Available Not Available OneTouch Ultra Test strips TESTS DAILY FOR DM, 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 active Not Available Not Available No t Available ropinirole 2 mg tablet TAKE 1 TABLET BY MOUTH TWICE A DAY active Not Available Not Available No t Available cephalexin 500 mg capsule TAKE 1 CAPSULE EVERY 8 HOURS FOR 7 DAYS active Not Available Not Available No t Available pantoprazol e 40 mg tablet,ivelisse yed release TAKE 1 TABLET BY MOUTH BEFORE BREAKFAST active Not Available Not Available No t Available losartan 25 mg tablet TAKE 1/2 TABLET BY MOUTH ONCE A DAY active Not Available Not Available No t Available Advair Diskus 250 mcg-50 mcg/dose powder for inhalation INHALE 1 PUFF BY MOUTH TWICE DAILY active Not Available Not Available No t Available nitroglycer in 0.4 mg sublingual tablet active Not Available Not Available Not Available gabapentin 300 mg capsule TAKE 2 CAPSULES BY MOUTH EVERY DAY AT BEDTIME active Not Available Not Available No t Available omeprazole 20 mg capsule,del ayed release 03/21 completed Not Available Not Available Not Available mupirocin 2 % topical ointment APPLY A SMALL AMOUNT TO THE AFFECTED AREA BY TOPICAL ROUTE 3 TIMES PER DAY 2019 active Not Available Not Available Not Avai lable furosemide 20 mg tablet BID 03/21 completed Not Available Not Available Not Available gabapentin 100 mg capsule MAY TAKE 1 CAPSULE IN THE MORNING AND 3 CAPSULES IN THE EVENING 03/21 completed Not Available Not Available Not Available metoprolol succinate ER 25 mg tablet,exte nded release 24 hr TAKE 1 TABLET BY MOUTH EVERY DAY active Not Available Not Available No t Available ergocalcife rol (vitamin D2) 1,250 mcg (50,000 unit) capsule TAKE 1 CAPSULE BY MOUTH WEEKLY (DRUG NOT COVERED) 03/21 completed Not Available Not Available Not Available albuterol sulfate HFA 90 mcg/actuati on aerosol inhaler Inhale 2 puffs every 4 hours by inhalatio n route as directed. active Not Available Not Available No t Available celecoxib 100 mg capsule PRN 02/28 completed Not Available Not Available Not Available fluticasone propionate 50 mcg/actuati on nasal spray,suspe nsion SPRAY 2 SPRAYS INTO EACH NOSTRIL EVERY DAY active Not Available Not Available No t Available lisinopril 2.5 mg tablet 08/31 completed Not Available Not Available Not Available doxycycline hyclate 100 mg tablet 04/03 completed Not Available Not Available Not Available escitalopra m 10 mg tablet active Not Available Not Available Not Available escitalopra m 20 mg tablet TAKE 1 AND 1/2 TABLETS BY MOUTH EVERY DAY active Not Available Not Available No t Available bacitracin 500 unit/gram topical packet Apply 1 packet by topical route. 08/31 completed Not Available Not Available Not Available Klor-Con M20 mEq tablet,exte nded release 1/2 tab in AM and PM active Not Available Not Available No t Available escitalopra m 5 mg tablet TK 1 T PO D 04/03 completed Not Available Not Available Not Available metoprolol tartrate 25 mg tablet 08/31 completed Not Available Not Available Not Available Asprin Ec Low Dose 81 mg PO OD active Not Available Not Available No t Available diclofenac 1 % topical gel APPLY 2 GRAMS TO THE AFFECTED AREA 4 TIMES A DAY 03/21 completed Not Available Not Available Not Available cholecalcif darryl (vitamin D3) 50 mcg (2,000 unit) capsule TAKE 1 CAPSULE BY MOUTH DAILY WITH FOOD active Not Available Not Available No t Available OneTouch Delica Lancets 33 gauge USE LANCET ONCE DAILY active Not Available Not Available No t Available Tudorza Pressair 400 mcg/actuati on breath activated Inhale 1 puff every 12 hours by inhalatio n route. 2021 active Not Available Not Available Not Avai lable Eliquis 5 mg tablet active Not Available Not Available No t Available potassium chloride ER 20 mEq tablet,exte nded release TAKE 1 TABLET BY MOUTH EVERY DAY active Not Available Not Available No t Available Incruse Ellipta 62.5 mcg/actuati on powder for inhalation INHALE 1 PUFF BY MOUTH EVERY 24 HOURS 03/21 completed Not Available Not Available Not Available Breo Ellipta 200 mcg-25 mcg/dose powder for inhalation active Not Available Not Available N ot Available OneTouch Ultra2 Meter USE TO TEXT BLOOD GLUCOSE DAILY DIRECTED active Not Available Not Available No t Available Vitals Date Recorded Body temperature Oxygen saturation Oxygen saturation in Arterial blood by Pulse oximetry Heart rate Respiratory rate Systolic blood pressure Diastolic blood pressure Provider Name and Address Organization Details Last Updated DateTime 1 97.5 [degF] 95 % 95 % 71 /min 20 /min 130 mm[Hg] 68 mm[Hg] Not Available [facility] 1 11:02:38 Date Recorded Oxygen saturation Oxygen saturation in Arterial blood by Pulse oximetry Respiratory rate Body temperature Heart rate Systolic blood pressure Diastolic blood pressure Provider Name and Address Organization Details Last Updated DateTime 1 96 % 96 % 22 /min 98.6 [degF] 68 /min 124 mm[Hg] 78 mm[Hg] Not Available [facility] 1 16:52:24 Date Recorded Heart rate Oxygen saturation Oxygen saturation in Arterial blood by Pulse oximetry Respiratory rate Body temperature Systolic blood pressure Diastolic blood pressure Provider Name and Address Organization Details Last Updated DateTime 2 68 /min 96 % 96 % 16 /min 96.7 [degF] 112 mm[Hg] 60 mm[Hg] Not Available [facility] 2 13:37:22 Date Recorded Oxygen saturation Oxygen saturation in Arterial blood by Pulse oximetry Respiratory rate Heart rate Body temperature Systolic blood pressure Diastolic blood pressure Provider Name and Address Organization Details Last Updated DateTime 2 97 % 97 % 16 /min 71 /min 98.5 [degF] 116 mm[Hg] 68 mm[Hg] Not Available [facility] 2 15:55:18 Social History Question Answer Notes LastModified by Organizat ion Details LastModified Time Tobacco Smoking Status Former Smoker JOSSE SALGADO, [employer] [address], [place], [address], [place] [facility] 12/26/2019 13:07:15 Do You Have An Advance Directive? Yes Information not available 12/26/2019 What Is Your Level Of Alcohol Consumption? None Information not available 08/31/2021 What Is Your Code Status? Full Code Information not available 12/26/2019 Drugs Abused None [email or web address] Information not available 10/17/2020 How Many Days In The Past Year Have You Had A Heavy Drinking Consumption (4+ Female, 5+ Male)? 0 [email or web address] Information no t available 10/17/2020 Within The Past 12 Months, Has It Happened That The Food You Bought Just Didn't Last And You Didn't Have Money To Get More. No [email or web address] Information not available 10/17/2020 Within The Past 12 Months, Have You Worried That Your Food Would Run Out Before You Got Money To Buy More. No [email or web address] Information not available 10/17/2020 Fall Risk: Do You Feel Unsteady When Standing Or Walking? Yes [email or web address] Information not available 10/17/2020 We Know That How And When People Interact With Friends And Family Can Be Very Different From Person To Person. How Often Do You Have The Opportunity To See Or Talk To People That You Care About And Feel Close To? (Ex: Talking To Friends On The Phone Or Visiting Friends Or Family Or Going To [employer] Or Club Meetings) 1 Or 2 Times Per Week [email or web address] Information not available 10/17/2020 Excessive Alcohol Or Drug Use No Information not available 10/17/2020 We Know From Many Of Our Patients That Covering All Of Their Costs Can Be Difficult At Times. This Can Cause Stress And Impact Health. In The Past Year, Have You Been Unable To Get Any Of The Following When It Was Really Needed? No [email or web address] Information not available 10/17/2020 What Is Your Housing Situation Today? I Have Housing [email or web address] Information not available 10/17/2020 Would You Like Help Connecting To Resources? None [email or web address] Information not available 10/17/2020 Marital Status [email or web address] Informatio n not available 10/17/2020 What Was The Date Of Your Most Recent Tobacco Screening? 02/23/2019 [email or web address] Information not available 01/20/2020 Do You Use Any Illicit Or Recreational Drugs? No Information not available 08/31/2021 Has Tobacco Cessation Counseling Been Provided? No [email or web address] Information not available 01/20/2020 How Many Years Have You Smoked Tobacco? 45 Information not available 08/31/2021 Do You Or Have You Ever Used Any Other Forms Of Tobacco Or Nicotine? No Information not available 08/31/2021 Sex: Unknown Functional Status None recorded. Mental Status None recorded. Family History Relationship Description Onset Age of this Age Resolved Age Notes LastModified by Organization Details LastModified Time Father Malignant tumor of colon Not available 08/31 11:06:30 Mother Malignant tumor of colon Not available 08/31 11:06:30 Medical History Condition Response Diabetes Y Coronary Artery Disease Y CHF N Parkinson's Disease N Cancer N Dementia N Stroke N COPD Y Depression Y Hypothyroidism N Asthma Y High Cholesterol Y Rheumatoid Arthritis N Pulmonary Embolism N Hypertension Y A-fib N Osteoporosis Y Kidney Disease N Gynecological HistoryNo gynecological history recorded. Obstetrics History GPAL:G 0 P 0 0 0 0 Past Encounters Encounter ID Performer Location Encounter Start Date Encounter Closed Date Diagnosis/Indication Diagnosis SNOMED-CT Code Diagnosis ICD10 Code Diagnosis Note [id number] Balbina Cortés [facility] [address] [place] [address], [place] [address] 02/07/2019 08:54:53 02/10/2019 15:05:36 Swelling of lower leg 632981818 R22.40 Wheezing 51354933 R06.2 resolved Chronic ob structive pulmonary disease 54647266 J44.9 Congestive heart failure 36853923 I50.9 [id number] Balbina Cortés [facility] [address] [place] [address] 02/19/2019 14:54:40 02/24/2019 12:56:57 Edema of lower extremity 186371777 R60.0 [id number] Balbina Cortés [facility] [address] [facility] [place] [address] 02/23/2019 16:49:50 02/24/2019 13:23:51 Low back strain 833595466 S39.012A [id number] Balbina Cortés [facility] [address] [place] [address] 10/27/2019 14:16:46 10/28/2019 10:09:40 Edema of lower extremity 293327219 R60.0 Pain in ri ght lower limb 898123717 M79.604 Tear of skin 367610666 T 14.8XXA [id number] Balbina Cortés [facility] [address] [place] [address] 12/26/2019 12:57:09 12/29/2019 00:46:41 Facial laceration 109536025 S01.81XA Fall on sa me level from slipping, tripping or stumbling 341740414 W01.0XXA [id number] Balbina Cortés [facility] [address] [facility] [place] [address] 01/16/2020 15:03:33 01/20/2020 13:32:20 Low back strain 611446455 S39.012A Low back pain 397227473 M54.5 [id number] Balbina Cortés [facility] [address] [facility] [place] [address] 08/20/2020 11:06:15 08/23/2020 10:14:53 Tear of skin 456545294 T14.8XXA [id number] Balbina Cortés [facility] [address] [facility] [place] [address] 08/22/2020 12:46:45 08/22/2020 13:06:28 [id number] JENSEN ZARCO NP [facility] [address] [place] [address] 08/22/2020 15:02:13 08/22/2020 21:37:57 Open wound of lower leg 973910081 S81.802A [id number] TAE KNOWLES [facility] [address] [place] [address] 10/17/2020 11:49:50 10/18/2020 11:22:26 Cellulitis of lower limb 102455177 L03.119 Swelling of lower leg 44 4907206 R22.40 [id number] KATHI BRIGGS NP [facility] [address] [place] [address] 10/20/2020 11:54:28 10/21/2020 12:53:21 Cellulitis of lower limb 596337283 L03.119 Exposure t o communicable disease 261413625 Z20.828 [id number] Shania Marrero NP [facility] [address] [place] [address] 10/22/2020 11:14:08 10/24/2020 17:43:41 Wound cellulitis 356599875 L03.90 [id number] JENSEN ZARCO NP [facility] [address] [place] [address] 02/02/2021 14:10:24 02/03/2021 13:29:29 Cellulitis of left lower limb 4574040464 [id number] L03.116 [id number] TAE KNOWLES [facility] [address] [place] [address] 02/06/2021 14:32:51 02/07/2021 12:44:05 Cellulitis of lower leg 078968713 L03.119 Suspected deep vein thrombosis 789175716 Z13.6 [id number] Mayra Lee NP [facility] [address] [place] [address] 04/03/2021 20:43:28 04/05/2021 23:52:12 Dizziness present 285097991 R42 Overview/H istory: Patient is an 85 year old alert female who presents with chief complaint of dizziness x 3 days. Patient recently prescribed Tramadol 50 mg BID for her back pain. Patient takes Torsemide 40 mg q day, however does admit that she is not consistent with dosing when she has multiple appointmen ts outside of her home as she worries about having to void with frequency. Patient missed two days of Torsemide dosing this past week and her wt has gone up 9 pounds as a result. Exam: Patient afebrile 97.1. HRR 72, S1, S2. BP stable with orthostati c measuremen ts as indicatd in PE. ENT exam wnl. Trachea midline, no JVD distention . Moist mucous membranes, no JVD distention . LSCTA bilaterall y with exception scattered crackles right mid lobe consistent with history of COPD. No work of breathing, speaking in full sentences. Abdomen SNT, + bowel sounds. NO CVA tenderness , no suprapubic tenderness . DDx considered , but not limited to:Medicat ion side affect, likely addition of Tramadol to med regimeOrth ostatic hypotensio n, BP measuremen ts stableMeni ere's considered , no tinnitisMe dication non-compli acne Work up/Results : Exam Plan/Discu ssion:Disc ussed lower dose of Tramadol and monitoring for dizziness as side affect. RX for topical diclofenac for back pain as this has been effective for her in the past. Discussed importance of medication regime and medication compliance with regards to wt. gain this past week and missing daily Torsemide x 2. Discussed acute s/s to monitor and go to ED. Patient able to reiterate all discussed. No questions at this time. She plans to call her PCP tomorrow to follow up with Torsemide dosing as her BP readings this evening were stable.med rec completed Proper Personal Protective Equipment (PPE), including {{gloves, eye protection , masks, and gowns, shoe covers carson ves, eye protection and masks* carson ves, eye protection gloves, eye protection , N95 mask, gown, and shoe covers michi gical mask with face-shiel d, gloves, gown and shoe covers michi gical mask with face-shiel d, gloves}} were donned and doffed senia shields and all equipment cleaned using approved technique with germicidal disposable wipes prior to and after care of this patient according to [facility]'s infection prevention protocols. In order to obtain further informatio n and compare any laboratory results/va lues, I have accessed {{old patient records* p atient records on the [employer] r eviewed records with the PCP}}. This informatio n was pertinent in my medical decision making today. Low back pain 180778906 M54.5 Unintentio nal weight gain 7057873011 41491 R63.5 [id number] Pranav Conner [facility] [address] [place] [address] 08/31/2021 10:49:08 09/06/2021 16:59:08 COVID-19 268175091 U07.1 + rapid Cough 56511642 R05.9 dry cough Chronic ob structive pulmonary disease 18808156 J44.9 pending [facility] enrollment , Rx to be sent by TAE Quinones for z-geno and proair 90 mcg 2 puffs every 4-6 hours as needed for fine scattered bilateral wheezepati ent declines any current Rx for GWEN Lethargy 813886514 R53.8 3 Exposure t o SARS-CoV-2 867914220 Z20.822 reports not leaving her apartment, has friend who gets mail for her, however she did go to [facility] ED on 08/27 for abdominal pain, nausea, diarrhea.s he denies any known exposure but high risk in ED [id number] Carly MCKEON NP [facility] [address] [place] [address] 09/02/2021 16:39:33 09/06/2021 11:49:43 COVID-19 416145071 U07.1 re-evaluat ion to monitor O2 which is 96 RAcurrentl y on day 3 of zpak Chronic ob structive pulmonary disease 34926266 J44.9 pt reports compliance with inhalers [id number] Compa Harrell MD [facility] [address] [place] [address] 12/08/2021 17:45:03 12/09/2021 10:11:45 Pain of toe of right foot 1785145031 89981 M79.674 Proper Personal Protective Equipment (PPE), including {{gloves, eye protection , masks, and gowns, shoe covers carson ves, eye protection and masks* carson ves, eye protection gloves, eye protection , N95 mask, gown, and shoe covers michi gical mask with face-shiel d, gloves, gown and shoe covers michi gical mask with face-shiel d, gloves}} were donned and doffed approprradha shields and all equipment cleaned using approved technique with germicidal disposable wipes prior to and after care of this patient according to [facility]'s infection prevention protocols. Overview/H istory: 86 Exam: R FOOT: (+)mild tenderness along the dorsum of the R 2nd toe. No bony or obvious deformity. Pt can actively flex and extend the digit. Cap refil wnl. No erythema or cyanosis. No sensation at baseline 2nd to T2DM. DP pulse palpable. EXT: B/L LE (+)1 soft NT edema with mild pitting. Pt reports this is her baseline. No calf pain. No erythema. PULM: CTAB DDx considered , but not limited to:toe fx - most likely dx, will order xrayischem ia - cap refill intact, pulses intact, ROM intact, no necrotic appearing tissue, no arterial wounds, lower suspicionC HF - carries dx of CHF, no hx of hospitaliz ation or pulm effusion, responding to lasix, no pulm complaints , AVSSDVT - no calf pain, no erythema, no palp cord, (-) homans, edema is bilateral, low suspicionn europathy - possible dx given T2DM, must exclude fracturego ut - no erythema, no hx of gout, no increase warmth Work up/Results :R FOOT XRAY series ordered Plan/Discu ssion:-con cern for toe fx despite lack of trauma, still possible as pt has poor sensation and may have hyperexten ding/flexe d the toe while donning comp stockings- will r/o with xray-pt will elevate and weight bear as tolerated- regarding CHF, weight improved after lasix, edema at baseline, pulm exam benign, AVSS, no resp distress, nontoxic appearing, NAD-cont lasix as needed and sdaily weights to trend-pt will followup with PCP if weights become labile-see k emergent eval for symptoms including but not limited to: redness on the toe, streaking, necrotic appearance , fevers, chest pain, sob. [id number] TAE Blancas [facility] [address] [place] [address] 02/28/2022 13:02:35 03/02/2022 12:14:09 Suspected soft tissue infection 0167603461 37365 Z20.818 Localized swelling of left lower leg 6148572881 5976679 R22.42 [id number] Yue Molina NP [facility] [address] [facility] [place] [address] 03/21/2022 15:37:31 03/24/2022 15:14:02 Wound cellulitis 340279861 L03.90 Health Concerns Section Related Observation LastModified by Organization Detai ls LastModified Time None Recorded Concern Status LastModified by Organization Details LastModified Time None Recorded Advance Directives Directive Y: Payers Encounter Date Sequence Insurance Name Policy Number Policy Anders Covered Member ID Anders Member ID Guarantor Name 08/31/2021 1 [place] [employer] Shreya M Gravel [id number] 4 Shreya Gravel 08/31/2021 2 [place] [id number] Shreya Gravel [id number] Shreya Gravel 09/02/2021 1 [place] Shreya M Gravel [id number] Shreya Gravel 09/02/2021 2 [place] [id number] Shreya Gravel [id number] Shreya Gravel 12/08/2021 1 [place] Shreya M Gravel [id number] Shreya Gravel 12/08/2021 2 [place] [id number] Shreya Gravel [id number] Shreya Gravel 02/28/2022 1 [place] Shreya M Gravel [id number] Shreya Gravel 02/28/2022 2 [place] [id number] Shreya Gravel [id number] Shreya Gravel 03/21/2022 1 [place] Shreya M Gravel [id number] Shreya Gravel 03/21/2022 2 [facility]: ([place] [id number] Shreya Gravel [id number] Shreya Gravel Notes Date Note Type Note Provider Name and Address Organization Details Recorded Time 08/31/2021 text/html This is a 86 yea r old female, who has PMH of asthma, COPD, CAD, HLD, HTN, peripheral neuropathy, depression, who is known to but new to provider, seeking further evaluation of increased fatigue, dry cough, loss of appetite, diarrhea, runny nose. She reports being compliant with her Advair and Ellipta. Has no GWEN and has not felt tight or noticed any wheezing . She vaccinated with both Pfizer doses along with booster that she received 08/23/2021.She reports staying in her apartment unit with one friend who comes in daily to deliver her mail. However does not recall any known sick contacts. On 08/27/2021 she reports going to [facility] ED for evaluation of abdominal pain, nausea, diarrhea, and was d/c home same day with Rx for zofran in which she did not cloth picker. She reports 2 nights ago waking up in the morning with diarrhea. She denies any fevers, shortness of breath, difficulty breathing, chest pain, palpitations, dizziness, unilateral weakness, change in mental status, vision, speech, taste and or smell. Carly MCKEON, [address] [place], [address], [place] [facility] 08/31/2021 20:14:52 09/02/2021 text/html 86 year old female, with PMH of asthma, COPD, CAD, DM, HTN, HLD, who is known to and provider, who is high risk population and recently diagnosed with COVID on 08/31/2021. pt had CXR performed which is consistent with COVID positive opacity's to right mid and lower lobe . Pt is without any fevers. Her only complaint is fatigue, but is able to perform her ADL's, taking medications as directed, and using inhalers.Pt denies any SOB difficulty breathing, cp, palpitations, dizziness, numbness, tingling, change in mental status. Carly MCKEON NP [address], [place], [address], [place] [facility] 09/02/2021 22:38:32 12/08/2021 text/html -86 yo female ne w to provider known to -pt reports the her 2nd right toe began to hurt upon donning her socks this am-no distinct injury or trauma- I thnk I may have bent it back trying to put on my compression stockings today -able to wegith bear-no hx of gout-has T2DM without hx of nonhealing wounds-no fevers chills-also was concerned about leg swelling-chronic problem-improved after lasix yesterday and today-she takes lasix as needed for dx of CHF-never been hospitalized with CHF-QD# 196 --> 200 --> 198 --> 196 today-pt took lasix when weight elevated to 200-no SOB, no cough, no CP TAE Rosales [address], [place], [address], [place] [facility] 12/08/2021 18:26:26 02/28/2022 text/html Ms Calvert fell about 2 weeks ago and sustained laceration to the left lower leg, and a wound to the right mid middleton, She had the sutures removed on February 19, 2022 she had xrays done all negative for fractures. she had 19 sutures on the left lower extremity then she got home and had infection went to [facility] was admitted for a week, then went to [facility] for rehab. 02/08/2022 home. TAE Blancas [address], [place], [address], [place] [facility] 03/08/2022 20:04:51 03/21/2022 text/html 86 yo F with wounds to the left s/p fall in early February. She had sutures in the left leg that became infected and a smaller wound to the middleton of the right lower leg. [facility] is following her for her wounds and are in every 2 days for assessment and dressing changes. Today she states she has burning to her legs and redness to of both legs.F/u with PCP in 03/30/22. Yue Molina NP [address], [place], [address], [place] [facility] 03/21/2022 20:19:51 OBGyn Episode No OBEpisode recorded.
--- OUTSIDE RECORDS SUMMARY | 2024-11-09 06:18 | XMS_ITS | Data Portability ---
Author Organization [facility] Address [address] [place] [address] Care Team Providers Care Senior Biostatistician/Group Leader Name Role Phone ABAD GONSALES Primary Care Provider [phone] GUILHERME DIAZ Referring Provider Assessment Encounter Date Assessment Date Assessment LastModified by Organization Details LastModified Time 06/26/2021 06/26/2021 Shreya Calvert is a 85 year old woman with complaints of low back pain radiating into both lower extremities. History of neuro claudication is present. She is S/P multiple back surgeries with persistent pain. On exam , she has pain on flexion. Straight leg raising test is positive on the left. She has had a course of physical therapy which she feels aggravated her symptoms. She is doing a home exercise program with persistent pain. I recommend a repeat lumbar epidural steroid injection under fluoroscopic guidance in July 2021. The risks and benefits of the procedure were reviewed in detail. She wishes to proceed. An appointment has been booked. She needs a escort car driver on the day of the procedure. She is on pletal . She needs to be off pletal for 10 days prior to the procedure. I spoke with Dr. Gonsales and she can stop pletal for the procedure. He is advising that she continue ASA 81 mg. She was given our teaching sheet in regards to stopping pletal for 10 days prior to the procedure. She is a diabetic. Blood sugar levels may temporarily increase after steroid injections. She was advised to check her blood glucose levels three times a day post procedure. If her levels are above 250, She was advised to contact her PCP . [email or web address] Not available 06/30/2021 10:01:58 07/11/2021 07/11/2021 Shreya Calvert is a 85 year old woman with complaints of low back pain radiating into both lower extremities. History of neuro claudication is present. She is S/P multiple back surgeries with persistent pain. On exam , she has pain on flexion. Straight leg raising test is positive on the left. She has had a course of physical therapy which she feels aggravated her symptoms. She is doing a home exercise program with persistent pain. She is here for a lumbar epidural steroid injection under fluoroscopic guidance. The risks and benefits of the procedure were reviewed in detail. She wishes to proceed. She can restart pletal tomorrow . [email or web address] Not available 07/11/2021 13:35:36 10/04/2021 10/04/2021 Shreya Calvert is a 86 year old woman with complaints of low back pain radiating into both lower extremities. History of neuro claudication is present. She is S/P multiple back surgeries with persistent pain. On exam , she has pain on flexion. Straight leg raising test is positive on the left. She has had a course of physical therapy which she feels aggravated her symptoms. She is doing a home exercise program with persistent pain. She is here for a lumbar epidural steroid injection under fluoroscopic guidance. The risks and benefits of the procedure were reviewed in detail. She wishes to proceed. She can restart pletal tomorrow . [email or web address] Not available 10/04/2021 11:58:37 12/12/2021 12/12/2021 Shreya Calvert is a 86 year old woman with complaints of low back pain radiating into both lower extremities. History of neuro claudication is present. She is S/P multiple back surgeries with persistent pain. On exam , she has pain on flexion. Straight leg raising test is positive on the left. She has had a course of physical therapy which she feels aggravated her symptoms. She is doing a home exercise program with persistent pain. She is here for a lumbar epidural steroid injection under fluoroscopic guidance. The risks and benefits of the procedure were reviewed in detail. She wishes to proceed. She can restart pletal tomorrow . [email or web address] Not available 12/12/2021 12:09:33 08/21/2022 08/21/2022 Shreya Calvert is a 87 year old woman with complaints of low back pain radiating into both lower extremities. History of neuro claudication is present. She is S/P multiple back surgeries with persistent pain. On exam , she has pain on flexion. Straight leg raising test is positive on the left. She has had a course of physical therapy which she feels aggravated her symptoms. She is doing a home exercise program with persistent pain. She is here for a lumbar epidural steroid injection under fluoroscopic guidance. The risks and benefits of the procedure were reviewed in detail. She wishes to proceed. She can restart pletal/ eliquis tomorrow . [email or web address] Not available 08/21/2022 10:37:30 Plan of Treatment Reminders Order Date Submit Date Provider Last Modified By Organization Details Last Modified Time Details Appointments None record ed. Lab None record ed. Referral None record ed. Procedures None record ed. Surgeries None record ed. Imaging None record ed. Medication Orders None record ed. Patient TargetsNo targets recorded. Patient Instructions Encounter Date Encounter Id Patient Instructions Last Modified By Organization Details Last Modified Time 06/26/2021 [id number] She was advised against bed rest lasting longer than four days and to continue activities as tolerated. [email or web address] Not available 06/30/2021 10:01:24 07/11/2021 [id number] She was advised to continue with activities as tolerated [email or web address] Not available 07/11/2021 13:35:39 10/04/2021 [id number] She was advised to continue with activities as tolerated [email or web address] Not available 10/04/2021 11:55:19 12/12/2021 [id number] She was advised to continue with activities as tolerated [email or web address] Not available 12/12/2021 12:09:37 08/21/2022 [id number] She was advised to continue with activities as tolerated [email or web address] Not available 08/21/2022 10:34:48 Reason for Referral None Reported. Problems Name Problem SNOMED Code Status Onset Date Resolution Date Notes Provider Name and Address Organization Details Recorded Time Spinal stenosis of lumbar region 42207466 Active 2016 Alf adams MD [address] [place] [address] , [address], [facility] [place], [address] [facility] [place] [facility] 7 10:55:25 Lumbosacral spondylosis without myelopathy 25550329 Active 2016 Alf adams MD [address] , [address], [place], [address], [place] [facility] 7 10:55:26 Lumbosacral radiculitis 47566618 Active 2016 Alf adams MD [address] , [address], [place], [address], [place] [facility] 7 10:55:27 Displacement of lumbar intervertebral disc without myelopathy 44440936 Active 2016 Alf adams MD [address] , [address], [place], [address], [place] [facility] 7 10:55:30 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 Procedures Surgical History Date Name Laterality Status Provider Name and Address Organization Details Recorded Time 08/21/20 22 Lumbar Epidural steroid injection under fluoroscopic guidance completed Alf Posada MD [address] , [address], [place], [address], [place] [facility] 08/21/2022 10:36:53 12/13/19 22 Lumbar Epidural steroid injection under fluoroscopic guidance completed Alf Posada MD [address] , [address], [place], [address], [place] [facility] 12/12/2021 12:09:46 10/04/20 21 Lumbar Epidural steroid injection under fluoroscopic guidance completed Alf Posada MD [address] , [address], [place], [address], [place] [facility] 10/04/2021 11:55:59 07/11/20 21 Lumbar Epidural steroid injection under fluoroscopic guidance completed Alf Posada MD [address] , [address], [place], [address], [place] [facility] 07/11/2021 13:35:45 04/11/20 21 Lumbar Epidural steroid injection under fluoroscopic guidance completed Alf Posada MD [address] , [address], [place], [address], [place] [facility] 04/11/2021 13:56:00 01/11/20 21 Lumbar Epidural steroid injection under fluoroscopic guidance completed Alf Posada MD [address] , [address], [place], [address], [place] [facility] 01/12/2021 09:57:53 09/06/20 20 Lumbar Epidural steroid injection under fluoroscopic guidance completed Alf Posada MD [address] , [address], [place], [address], [place] [facility] 09/08/2020 14:56:36 06/15/20 20 Lumbar Epidural steroid injection under fluoroscopic guidance completed Alf Posada MD [address] , [address], [place], [address], [place] [facility] 06/15/2020 14:00:13 05/23/20 20 Intra-articular shoulder steroid injection under ultrasound guidance completed Alf Posada MD [address] , [address], [place], [address], [place] [facility] 05/23/2020 15:11:49 05/11/20 19 Intra-articular shoulder steroid injection under ultrasound guidance completed Alf Posada MD [address] , [address], [place], [address], [place] [facility] 05/11/2019 09:43:25 03/31/20 19 Lumbar Epidural steroid injection under fluoroscopic guidance completed Alf Posada MD [address] , [address], [place], [address], [place] [facility] 03/31/2019 18:50:07 01/08/20 19 Fluoroscopic Guided Lumbar Facet Steroid Injections of levels completed Alf Posada MD [address] , [address], [place], [address], [place] [facility] 01/08/2019 15:03:53 09/17/20 17 Fluoroscopic Guided Lumbar Facet Steroid Injections of levels completed Alf Posada MD [address] , [address], [place], [address], [place] [facility] 09/17/2017 10:08:58 08/07/20 17 Fluoroscopic Guided Lumbar Facet Steroid Injections of levels completed Alf Posada MD [address] , [address], [place], [address], [place] [facility] 08/07/2017 10:36:11 05/08/20 17 Lumbar Epidural steroid injection under fluoroscopic guidance completed Alf Posada MD [address] , [address], [place], [address], [place] [facility] 05/08/2017 10:54:37 Joint Replacement completed Fayechris Sotoer [place] [facility] 03/14/2017 14:36:04 Cholecystectomy completed Faye Varghese [place] [facility] 03/14/2017 14:36:22 Back Surgery completed Alf Posaad MD [address] , [address], [place], [address], [place] [facility] 04/02/2017 08:16:01 Hysterectomy completed Fayechris Sotoer [place] [facility] 03/14/2017 14:38:33 Other completed Faye V[place]he[place] [facility] 03/14/2017 14:39:17 Appendectomy completed Faye V[place]he[place] [facility] 03/14/2017 14:39:31 CABG completed Faye Varghese [place] [facility] 03/14/2017 14:40:31 Imaging Results None recorded. Procedure Notes None recorded. Medical Equipment None Reported. Allergies No known drug allergies Medications Name Sig Start Date Stop Date Status Note LastModified by Organization Details LastModified Time celecoxib 200 mg capsule 01/07 completed Not Available Not Available Not Available amoxicillin 500 mg capsule TAKE 1 CAPSULE BY MOUTH THREE TIMES A DAY FOR 7 DAYS active Not Available Not Available No t Available aspirin 81 mg capsule Take by oral route. active Not Available Not Available No t Available atorvastati n 40 mg tablet 12/25 completed Not Available Not Available Not Available buspirone 5 mg tablet 07/11 completed Not Available Not Available Not Available silver sulfadiazin e 1 % topical cream 03/14 completed Not Available Not Available Not Available cilostazol 100 mg tablet TAKE 1/2 TABLET BY MOUTH DAILY active Not Available Not Available No t Available acetaminoph en 325 mg tablet TAKE 2 TABLETS BY MOUTH EVERY 4 HOURS NEEDED FOR PAIN SCALE 1-3 active Not Available Not Available No t Available prednisone 10 mg tablet 03/31 completed Not Available Not Available Not Available doxycycline hyclate 100 mg capsule TAKE 1 CAPSULE BY MOUTH TWICE A DAY FOR 7 DAYS WITH FOOD active Not Available Not Available No t Available atorvastati n 20 mg tablet TAKE 1 TABLET BY MOUTH EVERY DAY active Not Available Not Available No t Available torsemide 20 mg tablet TAKE 1 TABLET BY MOUTH EVERY DAY active Not Available Not Available No t Available tizanidine 2 mg tablet 05/13 completed Not Available Not Available Not Available loperamide 2 mg capsule PLEASE SEE ATTACHED FOR DETAILED DIRECTION S active Not Available Not Available No t Available atorvastati n 10 mg tablet 03/14 completed Not Available Not Available Not Available azithromyci n 250 mg tablet 12/12 completed Not Available Not Available Not Available nitroglycer in 0.3 mg sublingual tablet 1 TABLET SUBLINGUA L EVERY 5 MINUTES NEEDED FOR CHEST PAIN active Not Available Not Available No t Available ibuprofen 800 mg tablet 12/13 completed Not Available Not Available Not Available cilostazol 50 mg tablet active Not Available Not Available Not Available Lidocaine Viscous 2 % mucosal solution active Not Available Not Available Not Available tizanidine 4 mg tablet TAKE 1/2 TABLET BY MOUTH AT BEDTIME active Not Available Not Available No t Available amiodarone 200 mg tablet TAKE 1 TABLET BY MOUTH EVERY DAY active Not Available Not Available No t Available prednisone 20 mg tablet 01/10 completed Not Available Not Available Not Available sertraline 100 mg tablet active Not Available Not Available Not Available potassium chloride ER 10 mEq tablet,exte nded release active Not Available Not Available Not Available acetaminoph en 300 mg-codeine 30 mg tablet 12/25 completed Not Available Not Available Not Available levofloxaci n 250 mg tablet 11/07 completed Not Available Not Available Not Available aspirin 81 mg tablet,ivelisse yed release TAKE 1 TABLET BY MOUTH EVERY DAY active Not Available Not Available No t Available tramadol 50 mg tablet TAKE 1 TABLET BY MOUTH EVERY 4 HOURS NEEDED FOR PAIN (SCALE 4-10) active Not Available Not Available No t Available triamcinolo ne acetonide 0.1 % topical cream APPLY TO AFFECTED AREA TWICE A DAY active Not Available Not Available No t Available temazepam 7.5 mg capsule 12/25 completed Not Available Not Available Not Available lorazepam 0.5 mg tablet TAKE 1 TABLET BY MOUTH NEEDED FOR ANXIETY active Not Available Not Available No t Available triamcinolo ne acetonide 0.1 % dental paste 09/06 completed Not Available Not Available Not Available Source MDx Ultra Test strips TESTS DAILY FOR DM, 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 active Not Available Not Available No t Available ropinirole 2 mg tablet TAKE 1 TABLET BY MOUTH TWICE A DAY active Not Available Not Available No t Available cephalexin 500 mg capsule TAKE 1 CAPSULE BY MOUTH EVERY 6 HOURS active Not Available Not Available No t Available pantoprazol e 40 mg tablet,ivelisse yed release TAKE 1 TABLET BY MOUTH BEFORE BREAKFAST active Not Available Not Available No t Available ferrous sulfate 325 mg (65 mg iron) tablet TAKE 1 T PO TID 05/23 completed Not Available Not Available Not Available losartan 25 mg tablet TAKE 1 TABLET BY MOUTH EVERY DAY active Not Available Not Available No t Available Advair Diskus 250 mcg-50 mcg/dose powder for inhalation INHALE 1 PUFF BY MOUTH TWICE DAILY active Not Available Not Available No t Available nitroglycer in 0.[address] 1 TABLET SUBLINGUA LLY EVERY 5MIN NEEDED FOR CHEST PAIN active Not Available Not Available No t Available gabapentin 300 mg capsule TAKE 2 CAPSULES BY MOUTH EVERY DAY AT BEDTIME active Not Available Not Available No t Available omeprazole 20 mg capsule,del ayed release active Not Available Not Available Not Available mupirocin 2 % topical ointment active Not Available Not Available Not Available furosemide 20 mg tablet active Not Available Not Available Not Available gabapentin 100 mg capsule MAY TAKE 1 CAPSULE IN THE MORNING AND 3 CAPSULES IN THE EVENING active Not Available Not Available No t Available metoprolol succinate ER 25 mg tablet,exte nded release 24 hr TAKE 1 TABLET BY MOUTH EVERY DAY active Not Available Not Available No t Available ergocalcife rol (vitamin D2) 1,250 mcg (50,000 unit) capsule TAKE 1 CAPSULE BY MOUTH WEEKLY active Not Available Not Available No t Available warfarin 1 mg tablet TAKE 1 TO 10 TABLETS BY MOUTH DIRECTED 03/14 completed Not Available Not Available Not Available Vitamin C 250 mg tablet TAKE 1 T PO TID active Not Available Not Available No t Available albuterol sulfate HFA 90 mcg/actuati on aerosol inhaler INHALE 2 PUFFS INTO THE LUNGS EVERY 4 HOURS NEEDED FOR WHEEZING active Not Available Not Available No t Available celecoxib 100 mg capsule TAKE 1 CAPSULE BY MOUTH TWICE A DAY NEEDED FOR PAIN active Not Available Not Available No t Available fluticasone propionate 50 mcg/actuati on nasal spray,suspe nsion 1 SPRAY NASAL TWICE A DAY NEEDED FOR NASAL CONGESTIO N active Not Available Not Available No t Available sertraline 50 mg tablet 03/31 completed Not Available Not Available Not Available lisinopril 2.5 mg tablet 12/13 completed Not Available Not Available Not Available doxycycline hyclate 100 mg tablet TAKE 1 TABLET BY MOUTH TWICE A DAY FOR 7 DAYS 12/13 completed Not Available Not Available Not Available oxycodone 5 mg tablet TAKE 1 TABLET BY MOUTH TWICE A DAY 12/25 completed Not Available Not Available Not Available escitalopra m 10 mg tablet TAKE 3 TABLETS BY MOUTH EVERY DAY active Not Available Not Available No t Available escitalopra m 20 mg tablet TAKE 1 AND 1/2 TABLETS BY MOUTH EVERY DAY active Not Available Not Available No t Available cholestyram ine (with sugar) 4 gram powder for susp in a packet 12/25 completed Not Available Not Available Not Available Klor-Con M20 mEq tablet,exte nded release TAKE 1 TABLET BY MOUTH EVERY DAY active Not Available Not Available No t Available escitalopra m 5 mg tablet 01/10 completed Not Available Not Available Not Available metoprolol tartrate 25 mg tablet active Not Available Not Available No t Available Tylenol Extra Strength 2 tabs at bedtime active Not Available Not Available No t Available Tylenol w Codeine 12/13 completed Not Available Not Available Not Available diclofenac 1 % topical gel APPLY 2 GRAMS TO THE AFFECTED AREA 4 TIMES A DAY active Not Available Not Available No t Available cholecalcif darryl (vitamin D3) 50 mcg (2,000 unit) capsule TAKE 1 CAPSULE BY MOUTH DAILY WITH FOOD active Not Available Not Available No t Available Prevnar 13 (PF) 0.5 mL intramuscul ar syringe TO BE ADMINISTE RED BY PHARMACIS T FOR IMMUNIZAT ION 08/07 completed Not Available Not Available Not Available OneTouch Delica Lancets 33 gauge USE LANCET ONCE DAILY active Not Available Not Available No t Available Tudorza Pressair 400 mcg/actuati on breath activated USE 1 PUFF BY MOUTH TWICE A DAY (DRUG CARD DISCOUNT) 05/13 completed Not Available Not Available Not Available Eliquis 5 mg tablet TAKE 1 TABLET BY MOUTH TWICE A DAY FOR 30 DAYS active Not Available Not Available No t Available potassium chloride ER 20 mEq tablet,exte nded release TAKE 1 TABLET BY MOUTH EVERY DAY active Not Available Not Available No t Available Incruse Ellipta 62.5 mcg/actuati on powder for inhalation INHALE 1 PUFF BY MOUTH EVERY 24 HOURS active Not Available Not Available No t Available Breo Ellipta 200 mcg-25 mcg/dose powder for inhalation INHALE 1 PUFF BY MOUTH EVERY DAY active Not Available Not Available No t Available multivitami n-minerals- iron fumarate 7.5 mg-folic acid 400 mcg tablet TAKE 1 TABLET BY MOUTH EVERY DAY AFTER LUNCH active Not Available Not Available No t Available Fluzone High-Dose 9566-0004 (PF) 180 mcg/0.5 mL intramuscul ar syringe TO BE ADMINISTE RED BY PHARMACIS T FOR IMMUNIZAT ION 08/07 completed Not Available Not Available Not Available Fluzone High-Dose 2916-4358 (PF) 180 mcg/0.5 mL intramuscul ar syringe TO BE ADMINISTE RED BY PHARMACIS T FOR IMMUNIZAT ION 12/25 completed Not Available Not Available Not Available OneTouch Ultra2 Meter USE TO TEXT BLOOD GLUCOSE DAILY DIRECTED active Not Available Not Available No t Available Vitals Date Recorded Body height Body mass index (BMI) Body weight Heart rate Oxygen saturation Oxygen saturation in Arterial blood by Pulse oximetry Systolic blood pressure Diastolic blood pressure Provider Name and Address Organization Details Last Updated DateTime 1 160.02 cm 34.7 kg/m2 23402.1 g 58 /min 98 % 98 % 144 mm[Hg] 56 mm[Hg] Alf adams MD [facility] [address] [facility] , [address], [facility] [place], [address], [place] [facility] 1 15:24:19 Date Recorded Body height Heart rate Oxygen saturation Oxygen saturation in Arterial blood by Pulse oximetry Systolic blood pressure Diastolic blood pressure Provider Name and Address Organization Details Last Updated DateTime 1 160.02 cm 64 /min 97 % 97 % 112 mm[Hg] 51 mm[Hg] Tarah Young [place] [facility] 1 13:11:29 Date Recorded Body height Heart rate Oxygen saturation Oxygen saturation in Arterial blood by Pulse oximetry Systolic blood pressure Diastolic blood pressure Provider Name and Address Organization Details Last Updated DateTime 1 160.02 cm 66 /min 97 % 97 % 126 mm[Hg] 53 mm[Hg] Ebony adams [place] [facility] 1 10:58:34 Date Recorded Body height Heart rate Oxygen saturation Oxygen saturation in Arterial blood by Pulse oximetry Systolic blood pressure Diastolic blood pressure Provider Name and Address Organization Details Last Updated DateTime 2 160.02 cm 59 /min 97 % 97 % 133 mm[Hg] 80 mm[Hg] Tarah Young [place] [facility] 2 11:40:59 Date Recorded Body height Heart rate Oxygen saturation Oxygen saturation in Arterial blood by Pulse oximetry Systolic blood pressure Diastolic blood pressure Provider Name and Address Organization Details Last Updated DateTime 2 160.02 cm 60 /min 97 % 97 % 149 mm[Hg] 58 mm[Hg] Ebony adams [place] [facility] 2 10:07:52 Social History Question Answer Notes LastModified by Organizat ion Details LastModified Time Tobacco Smoking Status Former Smoker Quit x 20 years Not Available [employer] 07/22/2020 03:16:10 What Is Your Level Of Alcohol Consumption? Moderate [id number] Information not available 07/22/2020 Are You Currently Employed? No [id number] Information not available 07/22/2020 Which Illicit Or Recreational Drugs Have You Used? NO [id number] Information not available 07/22/2020 Education 12 With Some College Information not available 03/14/2017 Live Alone Or With Others? Alone Information not available 03/14/2017 Marital Status Informatio n not available 03/14/2017 What Was The Date Of Your Most Recent Tobacco Screening? 03/31/2019 [id number] Information not available 07/22/2020 How Many Years Have You Smoked Tobacco? 20 [id number] Information not available 07/22/2020 Sex: Unknown Functional Status None recorded. Mental Status None recorded. Family History Nothing Reported. Medical History Condition Response Coronary Artery Disease Y Arthritis Y Asthma Y High Cholesterol Y Hypertension Y Gynecological HistoryNo gynecological history recorded. Obstetrics History GPAL:G 0 P 0 0 0 0 Past Encounters Encounter ID Performer Location Encounter Start Date Encounter Closed Date Diagnosis/Indication Diagnosis SNOMED-CT Code Diagnosis ICD10 Code Diagnosis Note [id number] Alf Posada MD PAIN OFFICE [address] [place] [address] 03/14/2017 13:22:16 03/14/2017 15:44:04 Spinal stenosis of lumbar region 30796367 M48.06 Lumbosacra l spondylosis without myelopathy 44940341 M47.817 Lumbosacra l radiculitis 22979869 M54.17 Displaceme nt of lumbar intervertebral disc without myelopathy 51494280 M51.26 [id number] Alf Posada MD PAIN OFFICE [address] [place] [address] 05/08/2017 09:51:37 05/09/2017 14:08:37 Spinal stenosis of lumbar region 87879754 M48.06 Lumbosacra l spondylosis without myelopathy 19612776 M47.817 Lumbosacra l radiculitis 23504894 M54.17 Displaceme nt of lumbar intervertebral disc without myelopathy 67918612 M51.26 [id number] Alf Posada MD PAIN OFFICE [address] [place] [address] 06/14/2017 10:36:32 06/17/2017 09:50:43 Spinal stenosis of lumbar region 58951362 M48.06 Lumbosacra l spondylosis without myelopathy [id number] M47.817 Lumbosacra l radiculitis 66464832 M54.17 Displaceme nt of lumbar intervertebral disc without myelopathy 75364743 M51.26 [id number] Alf Posada MD [facility] [address] [place] [address] 08/07/2017 10:01:00 08/07/2017 15:19:24 Spinal stenosis of lumbar region 19326496 M48.062 Lumbosacra l spondylosis without myelopathy 59451893 M47.817 Lumbosacra l radiculitis 10358718 M54.17 Displaceme nt of lumbar intervertebral disc without myelopathy 25809401 M51.26 [id number] Alf Posada MD [facility] [address] [place] [address] 09/05/2017 10:11:57 09/05/2017 19:46:07 Spinal stenosis of lumbar region 19424463 M48.062 Lumbosacra l spondylosis without myelopathy 33268219 M47.817 Lumbosacra l radiculitis 92497189 M54.17 Displaceme nt of lumbar intervertebral disc without myelopathy 51031210 M51.26 [id number] Alf Posada MD [facility] [address] [place] [address] 09/17/2017 09:13:54 09/19/2017 09:09:31 Spinal stenosis of lumbar region 69191432 M48.062 Lumbosacra l spondylosis without myelopathy 73605200 M47.817 Lumbosacra l radiculitis 95615585 M54.17 Displaceme nt of lumbar intervertebral disc without myelopathy 30243499 M51.26 [id number] Alf Posada MD [facility] [address] [place] [address] 12/25/2018 11:24:23 12/25/2018 16:12:18 Spinal stenosis of lumbar region 01649287 M48.061 Lumbosacra l spondylosis without myelopathy 10323025 M47.817 Lumbosacra l radiculitis 13905708 M54.17 Displaceme nt of lumbar intervertebral disc without myelopathy 07464799 M51.26 [id number] Alf Posada MD [facility] [address] [facility] [place] [address] 01/07/2019 09:10:35 01/08/2019 15:11:02 Spinal stenosis of lumbar region 33371994 M48.062 Lumbosacra l spondylosis without myelopathy 14412484 M47.817 Lumbosacra l radiculitis 00262622 M54.17 Displaceme nt of lumbar intervertebral disc without myelopathy 24741944 M51.26 [id number] Alf Posada MD [facility] [address] [facility] [place] [address] 02/04/2019 14:13:14 02/04/2019 16:10:53 Post-herpetic neuritis 497028211 B02.29 Spinal linda nosis of lumbar region 48272987 M48.061 Lumbosacra l spondylosis without myelopathy 99679318 M47.817 Lumbosacra l radiculitis 57921462 M54.17 Displaceme nt of lumbar intervertebral disc without myelopathy 56633836 M51.26 [id number] Alf Posada [facility] [address] [facility] [place] [address] 03/31/2019 09:49:03 03/31/2019 18:56:55 Spinal stenosis of lumbar region 58613276 M48.061 Lumbosacra l spondylosis without myelopathy 54800620 M47.817 Lumbosacra l radiculitis 89720183 M54.17 Displaceme nt of lumbar intervertebral disc without myelopathy 72676916 M51.26 [id number] Alf Posada MD [facility] [address] [facility] [place] [address] 05/11/2019 08:51:59 05/11/2019 09:45:44 Inflammation of joint of shoulder region 090729218 M13.819 Spinal linda nosis of lumbar region 31368991 M48.061 [id number] Alf Posada MD [facility] [address] [facility] [place] [address] 12/14/2019 13:40:03 12/14/2019 16:14:01 Spinal stenosis of lumbar region 67682002 M48.061 Lumbosacra l spondylosis without myelopathy 38089883 M47.817 Lumbosacra l radiculitis 57236810 M54.17 Displaceme nt of lumbar intervertebral disc without myelopathy 14967490 M51.26 [id number] Alf Posada MD [facility] [address] [place] [address] 02/12/2020 11:36:11 02/15/2020 12:09:29 Spinal stenosis of lumbar region 43617292 M48.061 Lumbosacra l spondylosis without myelopathy 03947390 M47.817 Lumbosacra l radiculitis 98652954 M54.17 Displaceme nt of lumbar intervertebral disc without myelopathy 25685813 M51.26 [id number] Alf Posada MD [facility] [address] [place] [address] 05/13/2020 08:29:14 05/13/2020 09:22:37 Inflammation of joint of shoulder region 714671821 M13.819 Spinal linda nosis of lumbar region 40033925 M48.061 [id number] Alf Posada MD PAIN OFF[facility] [address] [place] [address] 05/23/2020 12:46:33 05/23/2020 15:14:52 Inflammation of joint of shoulder region 656607620 M13.819 Spinal linda nosis of lumbar region 38044553 M48.061 [id number] Alf Posada MD PAIN OFFICE [address] [place] [address] 06/15/2020 10:54:32 06/15/2020 14:04:50 Inflammation of joint of shoulder region 276867043 M13.819 Spinal linda nosis of lumbar region 85235219 M48.061 Lumbosacra l spondylosis without myelopathy 81744801 M47.817 Lumbosacra l radiculitis 99558612 M54.17 Displaceme nt of lumbar intervertebral disc without myelopathy 34684215 M51.26 [id number] Alf Posada MD [facility] [address] [facility] [place] [address] 07/13/2020 08:30:09 07/13/2020 11:05:07 Inflammation of joint of shoulder region 142090752 M13.819 Spinal linda nosis of lumbar region 24992450 M48.061 [id number] Alf Posada MD PAIN OFFICE [address] [facility] [place] [address] 09/06/2020 10:30:56 09/08/2020 15:55:16 Inflammation of joint of shoulder region 148410599 M13.819 Spinal linda nosis of lumbar region 68172797 M48.061 Lumbosacra l spondylosis without myelopathy 52552223 M47.817 Lumbosacra l radiculitis 52668318 M54.17 Displaceme nt of lumbar intervertebral disc without myelopathy 65787727 M51.26 [id number] Alf Posada MD PAIN OFFICE [address] [facility] [place] [address] 11/07/2020 08:59:33 11/07/2020 09:55:18 Spinal stenosis of lumbar region 33415648 M48.061 Lumbosacra l spondylosis without myelopathy 07744448 M47.817 Lumbosacra l radiculitis 52550461 M54.17 Displaceme nt of lumbar intervertebral disc without myelopathy 99886547 M51.26 [id number] Alf Posada MD PAIN OFFICE [address] [facility] [place] [address] 01/10/2021 13:47:25 01/12/2021 10:00:57 Inflammation of joint of shoulder region 194904123 M13.819 Spinal linda nosis of lumbar region 53563606 M48.061 Lumbosacra l spondylosis without myelopathy 73663690 M47.817 Lumbosacra l radiculitis 89899112 M54.17 Displaceme nt of lumbar intervertebral disc without myelopathy 33102906 M51.26 [id number] Alf Posada MD PAIN OFFICE [address] [facility] [place] [address] 02/16/2021 08:44:41 02/16/2021 10:52:14 Spinal stenosis of lumbar region 12050768 M48.061 Lumbosacra l spondylosis without myelopathy 76492792 M47.817 Lumbosacra l radiculitis 50134935 M54.17 Displaceme nt of lumbar intervertebral disc without myelopathy 00446689 M51.26 64549 Alf Posada MD PAIN OFFICE [address] [place] [address] 04/11/2021 13:21:59 04/11/2021 14:01:08 Spinal stenosis of lumbar region 57823811 M48.061 Inflammati on of joint of shoulder region 291226267 M13.819 Lumbosacra l spondylosis without myelopathy 55450986 M47.817 Lumbosacra l radiculitis 85401999 M54.17 Displaceme nt of lumbar intervertebral disc without myelopathy 14864902 M51.26 85594 Alf Posada MD PAIN OFFICE [address] [place] [address] 06/26/2021 15:22:32 06/30/2021 10:03:11 Spinal stenosis of lumbar region 25160936 M48.061 Lumbosacra l spondylosis without myelopathy 57409821 M47.817 Lumbosacra l radiculitis 93658793 M54.17 Displaceme nt of lumbar intervertebral disc without myelopathy 05079541 M51.26 [id number] Alf Posada MD PAIN OFFICE [address] [place] [address] 07/11/2021 12:54:52 07/11/2021 13:38:15 Spinal stenosis of lumbar region 49278794 M48.061 Inflammati on of joint of shoulder region 127301183 M13.819 Lumbosacra l spondylosis without myelopathy 30730208 M47.817 Lumbosacra l radiculitis 98993528 M54.17 Displaceme nt of lumbar intervertebral disc without myelopathy 31190107 M51.26 60012 Alf Posada MD [facility] [address] [facility] [place] [address] 10/04/2021 10:46:49 10/04/2021 12:00:47 Spinal stenosis of lumbar region 60736588 M48.061 Inflammati on of joint of shoulder region 869360818 M13.819 Lumbosacra l spondylosis without myelopathy 44301472 M47.817 Lumbosacra l radiculitis 62440029 M54.17 Displaceme nt of lumbar intervertebral disc without myelopathy 05565506 M51.26 [id number] Alf Posada MD PAIN OFFICE [address] [facility] [place] [address] 12/12/2021 11:17:23 12/12/2021 14:28:00 Spinal stenosis of lumbar region 23595356 M48.061 Inflammati on of joint of shoulder region 664124089 M13.819 Lumbosacra l spondylosis without myelopathy 17086022 M47.817 Lumbosacra l radiculitis 74912328 M54.17 Displaceme nt of lumbar intervertebral disc without myelopathy 68844544 M51.26 [id number] Alf Posada MD PAIN OFFICE [address] [facility] [place] [address] 08/21/2022 10:05:44 08/21/2022 11:05:40 Spinal stenosis of lumbar region 36078634 M48.061 Inflammati on of joint of shoulder region 759647001 M13.819 Lumbosacra l spondylosis without myelopathy 32382107 M47.817 Lumbosacra l radiculitis 99511182 M54.17 Displaceme nt of lumbar intervertebral disc without myelopathy 22896135 M51.26 Degenerati on of lumbar intervertebral disc 23108327 M51.36 Health Concerns Section Related Observation LastModified by Organization Detai ls LastModified Time None Recorded Concern Status LastModified by Organization Details LastModified Time None Recorded Advance Directives Directive None Recorded Payers Encounter Date Sequence Insurance Name Policy Number Policy Anders Covered Member ID Anders Member ID Guarantor Name 06/26/2021 1 [place] [facility] Shreya M Gravel [id number] Shreya Gravel 06/26/2021 2 [place] [id number] Shreya Gravel [id number] Shreya Gravel 07/11/2021 1 [place] [employer] Shreya M Gravel [id number] Shreya Gravel 07/11/2021 2 [place] [id number] Shreya Gravel [id number] Shreya Gravel 10/04/2021 1 [place] [place] Shreya M Gravel [id number] Shreya Gravel 10/04/2021 2 [place] [id number] Shreya Gravel [id number] Shreya Gravel 12/12/2021 1 [place] [employer] Shreya M Gravel [id number] Shreya Gravel 12/12/2021 2 [place] [id number] Shreya Gravel [id number] Shreya Gravel 08/21/2022 1 [place] Shreya M Gravel [id number] Shreya Gravel 08/21/2022 2 [place] [id number] Shreya Gravel [id number] Shreya Gravel Notes Date Note Type Note Provider Name and Address Organization Details Recorded Time 06/26/2021 text/html This is a follow up. She was last seen in 04/11/2021 for a lumbar epidural steroid injection. She reports good pain benefit. She fell in her house and was admitted to the hospital on May 072020 and had x-rays and CT scan done of the head with no brain injury or neck issues. She has noticed increased low back pain with numbness in her feet since the fall. She has no weakness in her legs . She has no history of bladder or bowel incontinence. Alf Posada MD [address] [place] [address] , [address], [place], [address], [place] - Pain [facility] 07/10/2021 08:52:57 07/11/2021 text/html She is here for a lumbar epidural steroid injection under fluoroscopic guidance. Alf Posada MD [address] [facility] , [address], [place], [address], [facility] - Pain Management 07/12/2021 09:01:37 10/04/2021 text/html She is here for a lumbar epidural steroid injection under fluoroscopic guidance. Al[facility] [address] [facility] [address], [place], [address], [place] - [place] 10/04/2021 12:48:56 12/12/2021 text/html She is here for a lumbar epidural steroid injection under fluoroscopic guidance. Alf Posada MD [address] [facility] , [address], [place], [address], [place] - [place] 12/12/2021 16:13:18 08/21/2022 text/html She is here for a lumbar epidural steroid injection under fluoroscopic guidance. She has stopped eliquis and pletal as instructed for the procedure. Alf Posada MD [address] , [address], [place], [address], [place] - [place] 08/22/2022 08:44:58 OBGyn Episode No OBEpisode recorded.
--- OUTSIDE RECORDS SUMMARY | 2024-11-09 06:18 | XMS_ITS | Data Portability ---
Author Organization [facility], Main Office Address [address] [place] [address] [address] [place] [address] Care Team Providers Care Dry Room Operator Name Role Phone DARRIN STYLES 3RD FLOOR OTHER [phone] Assessment Encounter Date Assessment Date Assessment LastModified by Organization Details LastModified Time 07/23/2024 07/23/2024 Labs 06/09: Na 140_ K 3.7-Bun 20-Cr 0.8-wbc 4.3-hbg 12.5-hct 38.1-plt 155 Labs 06/18: Na 140-4.1-Bun 17-cr 0.8-wbc5.0-hg b 12.7-hct 38.3-plt 153 Not available 07/23/2024 18:47:26 09/10/2024 09/10/2024 labs ordered for 09/14 Not available 09/10/2024 18:51:07 09/14/2024 09/14/2024 Labs 09/07: Na 139-K 3.6-Bun 19-Cr 0.7-wbc 4.7-hgb 12.3-hct 37.3-plt 169 Not available 09/14/2024 11:33:49 10/05/2024 10/05/2024 Labs 10/02: Na 139-K 4.0-Bun 17- Cr 0.6-wbc 4.9-hgb 13.3-hct 39.9-plt 190 A1c 5.7 Uric acid 3.4 Not available 10/05/2024 16:19:22 Plan of Treatment Reminders Order Date Submit Date Provider Last Modified By Organization Details Last Modified Time Details Appointments None record ed. Lab None record ed. Referral None record ed. Procedures None record ed. Surgeries None record ed. Imaging None record ed. Medication Orders None record ed. Patient TargetsNo targets recorded. Patient InstructionsNo instructions recorded. Reason for Referral None Reported. Problems Name Problem SNOMED Code Status Onset Date Resolution Date Notes Provider Name and Address Organization Details Recorded Time Cystitis 96498467 Active 2023 FRIEDA ANDERSON [address], [address], [place], [address], [facility] 4 14:00:02 Falls 850633430 Active 2023 FRIEDA ANDERSON [address], [address], [place], [address], [facility] 4 14:00:38 Pain of right wrist 6303058514872 00 Active 2023 FRIEDA ANDERSON [address], [address], [place], [address], [facility] 4 14:00:56 Peripheral venous insufficien cy 95043743 Active 2023 FRIEDA ANDERSON [address], [address], [place], [address], [facility] 4 14:01:26 Chronic diastolic heart failure 703293470 Active 2023 FRIEDA ANDERSON [address], [place], [address], [facility] 4 14:01:46 Type 2 diabetes mellitus 51513268 Active 2023 FRIEDA ANDERSON [address], [address], [place], [address], [facility] 4 14:01:55 Paroxysmal atrial flutter 702154560 Active 2023 FRIEDA ANDERSON [address], [address], [place], [address], [facility] 4 14:02:21 Restless legs 74295517 Active 2023 FRIEDA ANDERSON [address], [address], [place], [address], [facility] 4 14:02:38 Chronic obstructive pulmonary disease 39463310 Active 2023 CARLTON MINA, [employer] [address], [address], [place], [address], [facility] 4 14:02:49 Anemia of chronic disease 684570355 Active 2023 MP ANDERSONP [address], [address], [place], [address], [place] [facility] 4 14:02:59 Mixed anxiety and depressive disorder 330350622 Active 2023 CARLTON MINA, [employer] [address], [address], [place], [address], [facility] 4 14:17:43 Chronic kidney disease 430377719 Active 2023 MP ANDERSONP [address], [address], [place], [address], [facility] 4 14:19:41 Hyperlipide nena 76947056 Active 2023 MP ANDERSONP [address], [place], [address], [facility] 4 14:26:52 Gastroesoph ageal reflux disease 631729622 Active 2023 FRIEDA ANDERSON [address], [address], [place], [address], [facility] 4 14:27:49 Chronic back pain 155553764 Active 2023 FRIEDA ANDERSON [address], [address], [place], [address], [facility] 4 14:40:47 Vitamin D deficiency 30991139 Active 2023 CARLTON MINA, [facility] [address], [address], [place], [address], [facility] 4 19:41:46 Bradycardia 01630613 Active 2023 MP ANDERSONP [address], [place], [address], [place] [facility] 4 19:44:32 Asthenia 76690641 Active 2023 FRIEDA ANDERSON [address], [place], [address], [facility] 4 19:53:05 Bleeding from nose 822059921 Active 2023 FRIEDA ANDERSON [address] [facility], [address], [place], [address], [facility] 4 15:36:07 Osteomyelit is 23946345 Active 2023 Naomi Todd MD [address] [facility], [address], [place], [address], [facility] 4 17:53:51 Headache 20207153 Active 2023 WISAM SILVA NP [address] [facility], [address], [place], [address], [facility] 4 09:49:14 Problem Notes None recorded. Medical Equipment None Reported. Allergies Allergen ID Allergen Name Allergen Category Reaction Reaction Severity Criticality Documentation Date Start Date Code Code System Note Provider Name and Address Organization Details Recorded Time 75881 lisinopri l medicatio n Not available Not available Not available 10/22/2023 04628 RxNorm Not Available Not Available Not Available Medications Name Sig Start Date Stop Date Status Note LastModified by Organization Details LastModified Time tramadol 50 mg tablet 50 mg po qhs scheduled and 50 mg po BID prn. 024 active Not Available Not Available Not Avai lable oxycodone 5 mg tablet Take 1 tablet every 6 hours by oral route as needed. 024 active Not Available Not Available Not Avai lable Vitals Date Recorded Body height Body temperature Respiratory rate Heart rate Oxygen saturation Oxygen saturation in Arterial blood by Pulse oximetry Systolic blood pressure Diastolic blood pressure Provider Name and Address Organization Details Last Updated DateTime 4 165.1 cm 97.3 [degF] 18 /min 63 /min 96 % 96 % 117 mm[Hg] 76 mm[Hg] FRIEDA ANDERSON [address] [facility], [address], [place], [address], [facility] 4 18:40:50 Date Recorded Body height Heart rate Respiratory rate Body temperature Oxygen saturation Oxygen saturation in Arterial blood by Pulse oximetry Systolic blood pressure Diastolic blood pressure Provider Name and Address Organization Details Last Updated DateTime 4 165.1 cm 72 /min 18 /min 97 [degF] 95 % 95 % 122 mm[Hg] 68 mm[Hg] FRIEDA ANDERSON [address] [facility], [address], [place], [address], [facility] 4 15:58:33 Date Recorded Body height Heart rate Respiratory rate Body temperature Oxygen saturation Oxygen saturation in Arterial blood by Pulse oximetry Systolic blood pressure Diastolic blood pressure Provider Name and Address Organization Details Last Updated DateTime 4 165.1 cm 74 /min 18 /min 97.2 [degF] 96 % 96 % 128 mm[Hg] 72 mm[Hg] FRIEDA ANDERSON [address] [facility], [address], [place], [address], [facility] 4 11:29:01 Date Recorded Body height Oxygen saturation Oxygen saturation in Arterial blood by Pulse oximetry Body temperature Respiratory rate Provider Name and Address Organization Details Last Updated DateTime 4 165.1 cm 97 % 97 % 97.9 [degF] 18 /min FRIEDA ANDERSON [address] [facility], [address], [place], [address], [facility] 4 11:22:24 Date Recorded Body height Heart rate Respiratory rate Oxygen saturation Oxygen saturation in Arterial blood by Pulse oximetry Provider Name and Address Organization Details Last Updated DateTime 4 165.1 cm 70 /min 16 /min 96 % 96 % FRIEDA ANDERSON [address] [facility], [address], [place], [address], [facility] 4 16:00:47 Social History Question Answer Notes LastModified by Organizat ion Details LastModified Time Tobacco Smoking Status Former Smoker quit 30 yrs ago FRIEDA ANDERSON [address], [address], [place], [address], [facility] 10/24/2023 14:39:11 Do You Have An Advance Directive? Yes Information not available 10/24/2023 What Is Your Level Of Alcohol Consumption? Occasional Glass Of Wine Daily Information not available 10/24/2023 How Many Times Per Week Do You Consume Alcohol? 5-7 Times Per Week Information not available 10/24/2023 What Is Your Level Of Caffeine Consumption? Occasional Information not available 10/24/2023 What Is Your Code Status? DNR/DNI Information not available 10/24/2023 [facility] Had Been Living At [facility] Information not available 04/13/2024 Legal Guardian? No Informati on not available 10/24/2023 Do You Have A Medical Power Of Global Log[employer] Analyst? Yes Information not available 10/24/2023 What Was The Date Of Your Most Recent Tobacco Screening? 10/24/2023 Information not available 10/24/2023 Do You Have An Out Of Hospital DNR? Yes Information not available 10/24/2023 Have You Ever Been Counseled For Unhealthy Alcohol Use? No Information not available 10/24/2023 What Is Your Relationship Status? ~30 Yrs Ago Information not available 10/24/2023 How Much Tobacco Do You Smoke? No Information not available 04/13/2024 Do You Use Any Illicit Or Recreational Drugs? No Information not available 10/24/2023 Has Tobacco Cessation Counseling Been Provided? No Information not available 10/24/2023 Do You Or Have You Ever Used Any Other Forms Of Tobacco Or Nicotine? No Information not available 10/24/2023 Sex: Unknown Functional Status None recorded. Mental Status None recorded. Family History Nothing Reported Notes:n/c Medical History No medical history recorded. Gynecological HistoryNo gynecological history recorded. Obstetrics History GPAL:G 0 P 0 0 0 0 Immunizations Vaccine Type Date Status Note Provider Brian doyle and Address Organization Details Recorded Time Tdap 2 completed Flor fountain [place] [facility] 12/27/2023 11:11:29 [facility] 11:11:41 Influenza, adjuvanted, quadrivalent, PF 3 [facility]23 11:11:59 COVID-19, mRNA, LNP-S, bivalent, PF, 30 mcg/0.3 mL dose 1 completed Flor fountain [facility] 12/27/2023 11:12:12 COVID-19, mRNA, LNP-S, bivalent, PF, 30 mcg/0.3 mL dose [facility] 11:12:20 COVID-19, mRNA, LNP-S, bivalent, PF, 30 mcg/0.3 mL dose 1 [facility]23 11:12:29 COVID-19, mRNA, LNP-S, bivalent, PF, 30 mcg/0.3 mL dose 2 [facility]23 11:12:48 Past Encounters Encounter ID Performer Location Encounter Start Date Encounter Closed Date Diagnosis/Indication Diagnosis SNOMED-CT Code Diagnosis ICD10 Code Diagnosis Note [id number] FRIEDA ANDERSON [address] [facility] [place] [place] [address] 10/23/2023 08:21:08 10/28/2023 15:39:59 Cystitis 97646535 N30.90 With MDROInitia lly with Vanco and cefepime however cultures growing MDRO Klebsiella Started meropenem 1 g q12 for 7 days.start ed 10/19 for 7 full days of treatment to end 10/26.probi otic added Falls 974311517 R29.6 likely multifacto rial from neuropathy , frailty, arthritis and LE edemaCT negative for any fractures. CT Head/Brain W/O Contrast negativeIn itiated safety precaution per facility protocolPT /OT eval and tx. Peripheral venous insufficiency 94929133 I87.2 Venous insufficie ncy of both lower extremitie sDoppler LLE no DVT, symmetric erythema without increased warmth or tenderness , appears similar to previous picture taken, low suspicion for superimpos ed cellulitis Chronic di astolic heart failure 488923184 I50.32 preserved EFeuvolemi ctorsemide held in acute care d/t hypotensio n and bradycardi c 50'smonito r BP and need to restartmon itor weights Chronic ob structive pulmonary disease 37191140 J44.9 Albuterol Sulfate Nebulizati on Solution (2.5 MG/3ML) Q6 prnAdvair Izotvu569- 50 mcg Q12 Restless legs 95950506 G 25.81 ROPINIRole HCl Tablet 2 MG BID Type 2 jr betes mellitus 89072876 E11.21 continue monitor glucose,Li spro SSI coverageGa bapentin Capsule 300 MG at bedtime for neuropathy pain.trama dol 25 mg q12 prn Paroxysmal atrial flutter 412572073 I48.92 not on anticoagAm iodarone HCl Tablet 200 MG dailymonit or HR Mixed anxi ety and depressive disorder 167390336 F41.8 Escitalopr am Oxalate Tablet 30 mg dailymonit or for mood and behavorial changes. Anemia of chronic disease 536972381 D63.8 Ferrous Sulfate Tablet 325 dailymonit or labs prn Hyperlipidemia 48714275 E78.5 Atorvastat in 20 mg dailymonit or labs Gastroesop hageal reflux disease 566660819 K21.9 Pantoprazo le40 mg dailymonit or for gi upset. Chronic back pain 575691 002 G89.29 tramadol 25 mg Q12 prngabapen tin 300 mg at hs Vitamin D deficiency 347 12298 E55.9 Cholecalci ferol 2000 UNIT daily Pain of right wrist 3169 040639 88999 M25.531 x-ray was ordered which was negative.P T/OT eval and tx Bradycardia 85392551 R00 .1 in acute care HR as low as 40snormal UT/QRS/QTc prolongati on..T nonspecifi c isolated T wave inversions on single lead V2 were present on recent study from 07/19/2023 . No evidence of acute ischemic changes. Chronic ki dney disease 115902769 N18.9 Renal function is at baselinemo nitor labsavoid nephrotoxi c drugs Asthenia 90853072 R53.1 hx of multiple fallsambul ates with walkerPT/O T eval and treat [id number] Naomi Todd MD [address] [place] [address] 10/24/2023 16:17:28 11/06/2023 11:12:59 Cystitis 27691974 N30.00 Continue meropenem 1 g q 12 hrs to complete 7 d course on 10/26.Monit or for recurrent sxs. Falls 840313567 R29.6 Likely multifacto rial from neuropathy , frailty, arthritis and LE edemaVery deconditio christoph.Needs PT/OT for strengthen ing, balance, gait training, safety and function.C ontinue fall precaution s.Monitor for safety. Peripheral venous insufficiency 91539293 I87.2 Almost at baseline per pt.Continu e local care and elevation. Chronic di astolic heart failure 429776389 I50.32 Appears euvolemic. Monitor for need for diuretics. Monitor resp. status, fluid status, wts and labs. Chronic ob structive pulmonary disease 52592693 J43.8 No current sxs.Contin ue Advair 250/50 BID and albuterol nebs q 6 hrs prnMonitor resp status. Restless legs 19039981 G 25.81 Continue ropinirole 2 mg BIDMonitor sxs. Type 2 jr betes mellitus 54041465 E11.21 Diet controlled .Sugar <150 yest, not checked previously .Continue gabapentin 300 MG qhs and tramadol q 12 hrs prn for neuropathy Monitor fingerstic ks BID x 1 wk with SSI, d/c if not needing coverage. Paroxysmal atrial flutter 152847275 I48.92 Rate in good control on amiodarone 200 mg qdNot on AC due to age and fall riskMonito r HR Mixed anxi ety and depressive disorder 886153019 F41.8 Mood down today due to concerns about living situation. Continue escitalopr am 30 mg qdMonitor mood.Consu lt psych prn Anemia of chronic disease 193194901 D63.8 Continue FeSO4 325 mg qd with vitamin C 250 mg qd for absorption .Monitor labs Hyperlipidemia 68777788 E78.49 Continue atorvastat in 20 mg qdMonitor labs yearly Gastroesop hageal reflux disease 170521207 K21.9 No current sxs.Contin ue pantoprazo le 40 mg qdMonitor sxs Chronic ki dney disease 358437285 N18.9 In hx, but renal function WNL yest.Cindy nue to avoid nephrotoxi c meds as able.Monit or labs.Renal consult prn. Chronic back pain 653530 002 G89.29 Continue tramadol 25 mg q 12 hrs prn and gabapentin 300 mg qhsMonitor sxs. [id number] [facility] [address] [place] [address] rd [place] [address] 10/29/2023 07:42:54 11/01/2023 08:26:34 Cystitis 74936470 N30.90 With MDROInitia lly with Vanco and cefepime however cultures growing MDRO Klebsiella Started meropenem 1 g q12 for 7 days.start ed 10/19 for 7 full days of treatment to end 10/26.- completed denies any dysuriapro biotic added [place] 800785941 R29.6 continue to work with PT/OT for strengthen inglikely multifacto rial from neuropathy , frailty, arthritis and LE edemaCT negative for any fractures. CT Head/Brain W/O Contrast negativeIn itiated safety precaution per facility protocol Peripheral venous insufficiency 79376990 I87.2 BLE edema left greater than right Venous insufficie ncy of both lower extremitie sDoppler LLE no DVT, symmetric erythema without increased warmth or tenderness , appears similar to previous picture taken, low suspicion for superimpos ed cellulitis Chronic di astolic heart failure 099583010 I50.32 preserved EFeuvolemi ctorsemide held in acute care d/t hypotensio n and bradycardi c 50'smonito r BP and need to restartmon itor weights Chronic ob structive pulmonary disease 85551669 J44.9 Albuterol Sulfate Nebulizati on Solution (2.5 MG/3ML) Q6 prnAdvair Oitxps239- 50 mcg Q12 Restless legs 34108067 G 25.81 ROPINIRole HCl Tablet 2 MG BID Type 2 jr betes mellitus 91051105 E11.21 continue monitor glucose,Li spro SSI coverageGa bapentin Capsule 300 MG at bedtime for neuropathy pain.trama dol 25 mg q12 prn Paroxysmal atrial flutter 876967905 I48.92 not on anticoagAm iodarone HCl Tablet 200 MG dailymonit or HR Mixed anxi ety and depressive disorder 964826679 F41.8 Escitalopr am Oxalate Tablet 30 mg dailymonit or for mood and behavorial changes. Anemia of chronic disease 478350601 D63.8 Ferrous Sulfate Tablet 325 dailymonit or labs prn Hyperlipidemia 49527554 E78.5 Atorvastat in 20 mg dailymonit or labs Gastroesop hageal reflux disease 051639818 K21.9 Pantoprazo le40 mg dailymonit or for gi upset. Chronic back pain 594635 002 G89.29 tramadol 25 mg Q12 prngabapen tin 300 mg at hs Vitamin D deficiency 347 02251 E55.9 Cholecalci ferol 2000 UNIT daily Pain of right wrist 3169 079214 28953 M25.531 x-ray was ordered which was negative.P T/OT eval and tx Bradycardia 25729014 R00 .1 in acute care HR as low as 40snormal UT/QRS/QTc prolongati on..T nonspecifi c isolated T wave inversions on single lead V2 were present on recent study from 07/19/2023 . No evidence of acute ischemic changes. Chronic ki dney disease 628298142 N18.9 Renal function is at baselinemo nitor labsavoid nephrotoxi c drugs Asthenia 66212128 R53.1 hx of multiple fallsambul ates with walkerPT/O T eval and treat [id number] [facility]ERSON [facility] [address] [place] [address] 11/01/2023 08:04:11 11/06/2023 11:37:03 Cystitis 81047949 N30.90 With MDROInitia lly with Vanco and cefepime however cultures growing MDRO Klebsiella Started meropenem 1 g q12 for 7 days.start ed 10/19 for 7 full days of treatment to end 10/26.- completed denies any dysuriapro biotic added Pruritus of vagina 60597 003 L29.3 Reports vaginal itchiness for over one week, states sx started when she arrived to .on exam she is wearing a adult diaper, there is chafing noted in creases around del area,denie s any pain with urination. tenderness outer labiaexter nal exam there is no discharge notedlabia pinkish red there is no lesions noted? irritation related to soap productswi ll try triamcinol one topical cream BID for 7 days and re eval. [id number] FRIEDA ANDERSON [address] [address] 11/04/2023 12:13:42 11/06/2023 12:50:39 Falls 363600255 R29.6 see/HPiwit nessed fallwith injury/lac eration above left eye.no LOC Facial laceration 925294 008 S01.81XA above left eye/about 2 cm in lengthblee ding controlled , wrapped in gauze dressing. [id number] FRIEDA ADNERSON [address] [address] 11/06/2023 09:19:58 11/13/2023 12:17:34 Falls 493964235 R29.6 see/HPiwit nessed fallwith injury/lac eration above left eye.no LOCContinu e PT/OT Facial laceration 063449 008 S01.81XA above left eye/about 2 cm in lengthappe ars to be about 10-12 small dissolvabl e sutures in placedenie s any visual changes or headache.n ursing to monitor healing Pruritus of vagina 82982 003 L29.3 Reports vaginal itchiness for over one week, states sx started when she arrived to .on exam she is wearing a adult diaper, there is chafing noted in creases around del area,denie s any pain with urination. tenderness outer labiaexter nal exam there is no discharge notedlabia pinkish red there is no lesions noted? irritation related to soap productswi ll try triamcinol one topical cream BID for 7 days and re eval. Chronic back pain 359416 002 G89.29 denies any new discomfort post falltramad ol 25 mg Q12 prngabapen tin 300 mg at hs Asthenia 99890982 R53.1 hx of multiple fallsambul ates with walkerPT/O T continue [id number] FRIEDA ANDERSON [address] [address] 11/08/2023 13:54:21 11/13/2023 13:10:32 Falls 727047341 R29.6 on 11/04/23wit nessed fallwith injury/lac eration above left eye.no LOCContinu e PT/OT Facial laceration 262220 008 S01.81XA above left eye/about 2 cm in lengthappe ars to be about 10-12 small di-solvabl e sutures in placedenie s any visual changes or headache.n ursing to monitor healing Pruritus of vagina 47719 003 L29.3 Reports vaginal itchiness for over one week, states sx started when she arrived to .will try triamcinol one topical cream BID for 7 days and re eval. - 11/08/23 today she reports improvemen t with irritation , she tells me that se does not get the medication all the time. will schedule with time to assure med is applied. Chronic back pain 524465 002 G89.29 denies any new discomfort post falltramad ol 25 mg Q12 prngabapen tin 300 mg at hs Asthenia 64437290 R53.1 hx of multiple fallsambul ates with walkerPT/O T continue [id number] FRIEDA ANDERSON JENSEN [address] [place] [address] [place] [address] 11/13/2023 10:59:21 11/15/2023 09:29:54 Falls 549877574 R29.6 on 11/04/23wit nessed fallwith injury/lac eration above left eye.no LOCContinu e PT/OT Facial laceration 985231 008 S01.81XA healingabo ve left eye/about 2 cm in lengthappe ars to be about 10-12 small di-solvabl e sutures in placedenie s any visual changes or headache.n ursing to monitor healing Pruritus of vagina 84503 003 L29.3 improving, continues with triamcinol one topical cream BID Chronic back pain 290168 002 G89.29 denies any new discomfort post falltramad ol 25 mg Q12 prngabapen tin 300 mg at hs Asthenia 69877606 R53.1 hx of multiple fallsambul ates with walkerPT/O T continues [id number] CARLTON MINA, [employer] [address] [address] 11/18/2023 07:58:48 11/21/2023 13:26:13 Falls 040604765 R29.6 on 11/04/23wit nessed fallwith injury/lac eration above left eye.no LOCContinu e PT/OT Facial laceration 205084 008 S01.81XA healingabo ve left eye/about 2 cm in lengthappe ars to be about 10-12 small di-solvabl e sutures in placedenie s any visual changes or headache.n ursing to monitor healing Pruritus of vagina 28578 003 L29.3 improving, continues with triamcinol one topical cream BID Chronic back pain 452275 002 G89.29 denies any new discomfort post falltramad ol 25 mg Q12 prngabapen tin 300 mg at hs Asthenia 28937556 R53.1 hx of multiple fallsambul ates with walkerPT/O T continues [id number] FRIEDA ANDERSON [address] [address] 11/21/2023 13:49:57 11/25/2023 12:31:48 Falls 951646190 R29.6 on 11/04/23wit nessed fallwith injury/lac eration above left eye.no LOCContinu e PT/OT Facial laceration 117058 008 S01.81XA 11/04 s/p fall for laceration above left eye.healin g no s/sx of infectiona rolan left eye/about 2 cm in lengthappe ars to be about 10-12 small di-solvabl e sutures in placedenie s any visual changes or headache.n ursing to monitor healing Pruritus of vagina 13384 003 L29.3 improving, continues with triamcinol one topical cream BID Chronic back pain 251680 002 G89.29 denies any new discomfort post falltramad ol 25 mg Q12 prngabapen tin 300 mg at hs Asthenia 89292072 R53.1 hx of multiple fallsambul ates with walkerPT/O T continues [id number] FRIDEA ANDERSON [address] [address] 11/26/2023 07:45:18 11/28/2023 10:55:36 Falls 164574294 R29.6 on 11/04/23wit nessed fallwith injury/lac eration above left eye.no LOCContinu e PT/OT Facial laceration 007406 008 S01.81XA 11/04 s/p fall for laceration above left eye.healin g no s/sx of infectiona rolan left eye/about 2 cm in lengthappe ars to be about 10-12 small di-solvabl e sutures in placedenie s any visual changes or headache.n ursing to monitor healing Pruritus of vagina 58238 003 L29.3 triamcinol one topical cream BIDkeep area clean and dry. Chronic back pain 149571 002 G89.29 tramadol 25 mg Q12 prngabapen tin 300 mg at hs Asthenia 14256645 R53.1 hx of multiple fallsambul ates with walkerPT/O T continues [id number] FRIEDA ANDERSON [address] [address] 11/29/2023 08:06:37 12/03/2023 11:20:10 Falls [id number] R29.6 on 11/04/23wit nessed fallwith injury/lac eration above left eye.no LOCContinu e PT/OT Facial laceration 567188 008 S01.81XA healed11/04 s/p fall for laceration above left eye.above left eye/about 2 cm in lengthdeni es any visual changes or headache. Pruritus of vagina 59194 003 L29.3 triamcinol one topical cream BIDkeep area clean and dry. Chronic back pain 333409 002 G89.29 tramadol 25 mg Q12 prngabapen tin 300 mg at hs Asthenia 93605233 R53.1 hx of multiple fallsambul ates with walkerPT/O T continues [id number] FRIEDA ANDERSON [address] [address] 12/04/2023 07:53:49 12/10/2023 10:21:37 Falls [id number] R29.6 on 11/04/23wit nessed fallwith injury/lac eration above left eye.no LOCContinu e PT/OT Facial laceration 242763 008 S01.81XA healed29 s/p fall for laceration above left eye.above left eye/about 2 cm in lengthdeni es any visual changes or headache. Pruritus of vagina 53013 003 L29.3 triamcinol one topical cream BIDkeep area clean and dry. Chronic back pain 128433 002 G89.29 tramadol 25 mg Q12 prngabapen tin 300 mg at hs Asthenia 01832355 R53.1 hx of multiple fallsambul ates with walkerPT/O T continues Cellulitis of right lower limb [id number] L03.115 see hpistarted keflex on 11/30/23 for 7 days with probiotic for 10 daysencour aged to elevated lower extremitie s to elevate edemamonit or for resolution [id number] FRIEDA ANDERSON [address] [address] 12/11/2023 10:06:59 12/13/2023 13:01:47 Falls 065786199 R29.6 no recent falls reported Facial laceration 294165 008 S01.81XA healed29 s/p fall for laceration above left eye.above left eye/about 2 cm in lengthdeni es any visual changes or headache. Pruritus of vagina 54303 003 L29.3 triamcinol one topical cream BIDkeep area clean and dry. Chronic back pain 179799 002 G89.29 tramadol 25 mg Q12 prngabapen tin 300 mg at hs Cellulitis of right lower limb [id number] 4871461 L03.115 resolved. 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 Type 2 jr betes mellitus 27394797 E11.21 continue monitor glucose,Li spro SSI coverageGa bapentin Capsule 300 MG at bedtime for neuropathy pain.trama dol 25 mg q12 prn [id number] FRIEDA ANDERSON [address] [address] 12/25/2023 11:16:29 12/30/2023 16:09:32 Chronic diastolic heart failure 295217453 I50.32 preserved EFBLE +1was on torsemide but was d/c in acute caremonito r weights- no recent weight in [facility] updated to obtain current weight Mixed anxi ety and depressive disorder 794489976 F41.8 stable and pleasantEs citalopram Oxalate Tablet 30 mg dailymonit or for mood and behavorial changes. Type 2 jr betes mellitus 59254381 E11.21 continue monitor glucose,Li spro SSI coverageGa bapentin Capsule 300 MG at bedtime for neuropathy pain.trama dol 25 mg q12 prn [id number] Naomi Todd MD [address] [address] 12/26/2023 19:19:22 01/31/2024 14:21:17 Cystitis 94908975 N30.00 Completed course of meropenem 1 g q 12 hrs on 10/26.Monit or for recurrent sxs. Falls 067109657 R29.6 Continues to be a high fall risk and needs CG and sometimes an assist for transfers. No longer getting acute PT/OT services, restart as able.Cindy nue fall precaution s.Monitor for safety. Peripheral venous insufficiency 11012223 I87.2 No current sxs.Contin ue local care and elevation. Chronic di astolic heart failure 849838332 I50.32 Appears euvolemic. Monitor for need for diuretics. Monitor resp. status, fluid status, wts and labs. Chronic ob structive pulmonary disease 36464291 J43.8 Continues with no sxs.Contin ue Advair 250/50 BID and albuterol nebs q 6 hrs prnMonitor resp status. Type 2 jr betes mellitus 49896368 E11.21 Sugars were all <150 when checked for 3 days.Cindy nue gabapentin 300 MG qhs and tramadol q 12 hrs prn for neuropathy Monitor fingerstic ks prn and HgA1C q 3-6 months Paroxysmal atrial flutter 332571824 I48.92 Rate remains in good control on amiodarone 200 mg qdNo AC due to age and fall riskMonito r HR Restless legs 65777530 G 25.81 Continue ropinirole 2 mg BIDMonitor sxs. Mixed anxi ety and depressive disorder 287044582 F41.8 Mood stableCont inue escitalopr am 30 mg qdMonitor mood.Consu lt psych prn Anemia of chronic disease 349518698 D63.8 Hgb has been stable.Con tinue FeSO4 325 mg qd with vitamin C 250 mg qd for absorption .Monitor labs Hyperlipidemia 32515528 E78.49 Continue atorvastat in 20 mg qdMonitor labs yearly Gastroesop hageal reflux disease 047022685 K21.9 No current sxs.Contin ue pantoprazo le 40 mg qdMonitor sxs Chronic ki dney disease 802520293 N18.1 Renal function remains WNLContinu e to avoid nephrotoxi c meds as able.Monit or labs.Renal consult prn. Chronic back pain 373111 002 G89.29 Continue tramadol 25 mg q 12 hrs prn and gabapentin 300 mg qhsMonitor sxs. [id number] [facility] [address] [place] [address] [place] [address] 01/01/2024 08:18:43 01/06/2024 15:39:22 Chronic diastolic heart failure 482270821 I50.32 preserved EFBLE +1was on torsemide but was d/c in acute caremonito r weights- [facility] to [facility] weight Mixed anxi ety and depressive disorder 110020661 F41.8 stable and pleasantEs citalopram Oxalate Tablet 30 mg dailymonit or for mood and behavorial changes. Type 2 jr betes mellitus 90670912 E11.21 continue monitor glucose,Li spro SSI coverageGa bapentin Capsule 300 MG at bedtime for neuropathy pain.trama dol 25 mg q12 prn Spasm 59345787 R25.2 12/31/23 nursing reported pt was having left upper leg/buttoc k pain/spasm tramadol changed from q12 to q6 and robaxin 500 mg q 6 prn addedtoday pt states that medication was effectivew ill monitor for worsening sx [id number] FRIEDA ANDERSON [address] [address] 01/08/2024 13:26:41 01/10/2024 11:20:05 Chronic diastolic heart failure 248058892 I50.32 no weight gain notedconti nue furosemide 10 mg dailymonit or labs , weightsmon itor for cardiopulm onary sx Mixed anxi ety and depressive disorder 266742104 F41.8 continue Escitalopr am Oxalate Tablet 30 mg dailymonit or for mood and behavorial changes. Type 2 jr betes mellitus 37678058 E11.21 continue monitor glucose,co ntinue Lispro SSI coverageco ntinue Gabapentin Capsule 300 MG at bedtime for neuropathy pain.cindy nue tramadol 50 mg q 8 prn Spasm 50046215 R25.2 to LLE and glutealpai n has improvedRo baxin 500 mg discontinu e -it was ordered for short term use onlycontin ue tramadol 50 mg prn [id number] FRIEDA ANDERSON [address] [address] 01/15/2024 09:55:29 01/27/2024 16:00:52 Cervical radiculopathy 34235186 M54.12 start diclofenac gel daily and q8 prncontinu e tramadol 50 mg Q6 prncontinu e gabapentin 300 mg at hs add 300 mg QDrefer to physical therapy for eval and tx [id number] FRIEDA ANDERSON [address] [address] 01/22/2024 09:25:19 01/28/2024 11:32:54 Cervical radiculopathy 43456501 M54.12 continue diclofenac gel daily and q8 prncontinu e tramadol 50 mg Q6 prncontinu e gabapentin 300 mg at hs add 300 mg QDper therapy patient neck pain is chronic and she was previously treated and recommende d Chronic di astolic heart failure 393017366 I50.32 monitor labs , weights , edemamonit or for cardiopulm onary sxencourag ed leg elevation/ wraps as needed. Gastroesop hageal reflux disease 805910499 K21.9 Pantoprazo le40 mg dailymonit or for gi upset. Mixed anxi ety and depressive disorder 628274801 F41.8 continue Escitalopr am Oxalate Tablet 30 mg dailymonit or for mood and behavorial changes. Type 2 jr betes mellitus 47016389 E11.21 continue monitor glucose,co ntinue Lispro SSI coverageco ntinue Gabapentin Capsule 300 MG at bedtime for neuropathy pain.cindy nue tramadol 50 mg q 8 prn [id number] FRIEDA ANDERSON [address] [address] 01/27/2024 10:53:32 02/17/2024 12:46:54 Cervical radiculopathy 09223946 M54.12 continue diclofenac gel daily and q8 prncontinu e tramadol 50 mg Q6 prncontinu e gabapentin 300 mg at hs add 300 mg QD Chronic di astolic heart failure 420963854 I50.32 monitor labs , weights , edemamonit or for cardiopulm onary sxencourag ed leg elevation/ wraps as needed. Gastroesop hageal reflux disease 376592432 K21.9 Pantoprazo le40 mg dailymonit or for gi upset. Mixed anxi ety and depressive disorder 640034291 F41.8 continue Escitalopr am Oxalate Tablet 30 mg dailymonit or for mood and behavorial changes. Type 2 jr betes mellitus 34435245 E11.21 bgl have been stablecont inue monitor glucose,co ntinue Lispro SSI coverageco ntinue Gabapentin Capsule 300 MG at bedtime for neuropathy pain.cindy nue tramadol 50 mg q 8 prn Falls 515359119 R29.6 no recent fallsConti nues to be a high fall risk and needs CG and sometimes an assist for transfers. she has reduce functional mobility to left lower extremity due to pain in her ankle.Alba ent would benefit from an AFO to provide support to LLE/ankle and reduce pain. [id number] FRIEDA ANDERSON [address] [address] 01/30/2024 10:23:09 02/04/2024 14:43:29 Bleeding from nose 218657553 R04.0 see hpistart afrin 2 spray to right nares q12 x 5days.janice tor for recurrence monitor BP/rebound congestion [id number] FRIEDA ANDERSON [facility] JENSEN [address] [place] [address] [place] [address] 02/05/2024 09:31:19 02/11/2024 09:17:30 Bleeding from nose 187797683 R04.0 resolved. Cervical radiculopathy 85059417 M54.12 continue diclofenac gel daily and q8 prncontinu e tramadol 50 mg Q6 prncontinu e gabapentin 300 mg at hs add 300 mg QDper therapy patient neck pain is chronic and she was previously treated and recommende d Chronic di astolic heart failure 063548816 I50.32 monitor labs , weights , edemamonit or for cardiopulm onary sxencourag ed leg elevation/ wraps as needed. Gastroesop hageal reflux disease 860519572 K21.9 Pantoprazo le40 mg dailymonit or for gi upset. Mixed anxi ety and depressive disorder 164608118 F41.8 continue Escitalopr am Oxalate Tablet 30 mg dailymonit or for mood and behavorial changes. Type 2 jr betes mellitus 66904041 E11.21 continue monitor glucose,co ntinue Lispro SSI coverageco ntinue Gabapentin Capsule 300 MG at bedtime for neuropathy pain.cindy nue tramadol 50 mg q 8 prn [id number] Naomi Todd MD [address] [place] [address] 02/28/2024 13:56:25 03/10/2024 11:09:37 Pain in left foot 1475559754 93980 M79.672 With new deformity of left great toe, with rubbing and irritation between toes and possible early cellulitis .Will start doxy 100 mg BID x 7 days with probiotic BIDWill start warm soaks with epsom salts BID for 15 .Elevat e as much as possible.G auze between toes to protect.Po diatry consult, if healthdriv e not coming next week, will consult Dr. Tanner [phone] can have wound care see her for further advice.Con tinue APAP 650 mg q 6 hrs prn and tramadol 50 mg q 8 hrs prn for pain. Diarrhea 52220618 R19.7 Only has happened one time so far, possibly from stress.Ord ered imodium prnMonitor [id number] FRIEDA ANDERSON [address] [place] [address] 03/04/2024 14:57:51 03/10/2024 11:43:05 Pain in left foot 4911659285 06025 M79.672 deformity of left great toe, with rubbing and irritation between toes and possible early cellulitis .continue doxy 100 mg BID x 7 days with probiotic BIDcontinu e warm soaks with epsom salts BID for 15 .Elevat e as much as possible.G auze between toes to protect.Po diatry consult, if health drive not coming next week, will consult Dr. Tanner [phone] can have wound care see her for further advice.Con tinue APAP 650 mg q 6 hrs prn and tramadol 50 mg q 8 hrs prn for pain. Blister of toe without infection 19433844 S90.425A continue warm soaks as aboveclean se left 2nd toe with soap and warm water, hydrogen peroxideap ply petroleum and cover with gauze or non stick dressing daily and prnmonitor for healing. [id number] FRIEDA ANDERSON [address] [address] 03/06/2024 14:42:26 03/10/2024 12:16:05 Mixed anxiety and depressive disorder 837892735 F41.8 continue Escitalopr am Oxalate Tablet 30 mg dailywill adjust trazodone and increased from 12.5 mg to 25 mg scheduled at HS per psych rec.and continue prn trazodone 12.5 mg bid prn, anxiety for 14 days.monit or for mood and behavorial changes. [id number] FRIEDA ANDERSON [address] [place] [address] 03/10/2024 10:17:01 03/16/2024 15:45:17 Pain in left foot 8396651421 14944 M79.672 deformity of left great toe, with rubbing and irritation between toes and possible early cellulitis .continue doxy 100 mg BID x 7 days with probiotic BIDcontinu e warm soaks with epsom salts BID for 15- pt tells me that she has not soaked feet. nirsing updated to make sure patient soaks foot BIDElevate as much as possible.c ontinue Gauze between toes to protect.Po diatry consult, if health drive not coming next week, will consult Dr. Tanner [phone] can have wound care see her for further advice- will be seen by wound on ontinu e APAP 650 mg q 6 hrs prn and tramadol 50 mg q 8 hrs prn for pain.she does not have hx of gout but will order uric acid d/t her still having pain despite abx use for 4 days. Blister of toe without infection 49452416 S90.425A continue warm soaks as aboveclean se left 2nd toe with soap and warm water, hydrogen peroxidedr essing changes to Alginate/D CD QD [id number] CARLTON MINA, FRIEDA STYLES [address] [place] [address] 03/16/2024 09:19:11 03/19/2024 16:19:43 Pain in left foot 2287215917 33077 M79.672 baseline deformity due to hammer toeabx completed for suspected cellulitis - left great toe is without swelling or redness.co ntinue warm soaks with epsom salts BID forElevate as much as possible.c ontinue Gauze between toes to protect.Co ntinue APAP 650 mg q 6 hrs prn and tramadol 50 mg q 8 hrs prn for pain.03/16: seen by [facility] podiatry- toenails cut, recommend applying bacitracin to left 2 nd toe abrasion daily for one week, monitor for signs of infection. Mixed anxi ety and depressive disorder 652478823 F41.8 continue Escitalopr am Oxalate Tablet 30 mg dailyrepor ts although medication s have been helpful that she continues with difficultl y falling asleepand evening anxiety.in creased [facility] trazodone to 12.5 mg q12 prnmonitor for mood and behavorial changes. [id number] FRIEDA ANDERSON DARRIN STYLES [address] [place] [address] [place] [address] 03/17/2024 10:40:42 03/20/2024 08:44:03 Bleeding from nose 859786693 R04.0 minor nasal bleeding after blowing her nosewill discussed avoiding nose blowing, gently sniff insteadavo id picking nose or rubbing noseafrin nasal 1 spray BID prnsaline nasal spray BID Pain of to e of left foot 4994514171 67089 M79.675 reports pain to left great toe and second great toenailini tially flinching on exam when toe(s) were touched , states pain requesting toenail to be cut on 2ndshe provided clippers, I trimmed and file all toenail, she reports toes feeling much betterther e was no observatio n of facial grimacing, flinching or pulling away during procedure. [id number] Naomi Todd MD [facility] [address] [place] [address] [place] [address] 03/30/2024 16:40:06 04/01/2024 10:48:39 Falls 820113765 R29.6 Continues to be a high fall risk.Getti ng OT for mobility and safety, primarily wheelchair level.Cont inue fall precaution s.Monitor for safety. Peripheral venous insufficiency 27973589 I87.2 No current sxs.Contin ue local care and elevation. Chronic di astolic heart failure 020514554 I50.32 Appears euvolemic. Continue furosemide 10 mg qdMonitor resp. status, fluid status, wts and labs. Chronic ob structive pulmonary disease 79463707 J43.8 Continues with no sxs.Contin ue Advair 250/50 BID and albuterol nebs q 6 hrs prnMonitor resp status. Type 2 jr betes mellitus 13111990 E11.21 Stable on no meds.Last HgA1C was 6.1 in 06/2023.Con tinue gabapentin 300 MG qhs and tramadol qhs scheduled and BID prn for neuropathy Monitor fingerstic ks prn and HgA1C q 3-6 months Paroxysmal atrial flutter 904189501 I48.92 Rate remains in good control on amiodarone 200 mg qdNo AC due to age and fall riskMonito r HR Restless legs 47146426 G 25.81 Continue ropinirole 2 mg BIDMonitor sxs. Mixed anxi ety and depressive disorder 192657667 F41.8 Mood sl. down due to pain not improving. Continue escitalopr am 30 mg qdMonitor mood.Consu lt psych prn Anemia of chronic disease 443934010 D63.8 Hgb remains stable.Con tinue FeSO4 325 mg qd with vitamin C 250 mg qd for absorption .Monitor labs Hyperlipidemia 67418912 E78.49 Continue atorvastat in 20 mg qdMonitor labs yearly Gastroesop hageal reflux disease 742374774 K21.9 No current sxs.Contin ue pantoprazo le 40 mg qdMonitor sxs Chronic ki dney disease 692246941 N18.2 Renal function remains stableCont inue to avoid nephrotoxi c meds as able.Monit or labs.Renal consult prn. Chronic back pain 907657 002 G89.29 Continue meds as above.Janice tor sxs. Bleeding from nose 35220 6005 R04.0 Resolved. Pain of to e of left foot 4306149090 52866 M79.675 No improvemen t since toenails cut on 03/17.Left 2nd toe still red and tender.[facility] have nursing set up appt with Dr. Lu Holder who has offices in [facility] and [place]. [place] # is [phone] local care until then. Using padding between toes to keep the pressure off.Monito r for signs of infection. Will schedule hs tramadol and keep 50 mg BID prn [id number] FRIEDA ANDERSON [address] [place] [address] [place] [address] 04/03/2024 11:03:23 04/28/2024 07:31:02 Cellulitis of foot 229224996 L03.119 left footsuspec gloria do to sx.recentl y treated for cellulitis left great toe with doxycyclin ewill start cephalexin 250 mg Q 6 hr for 5 days.will add probiotic BID for 7 daysmonito r for resolution . [id number] MD DARRIN Perry [address] [place] [address] rd [place] [address] 04/13/2024 17:19:14 04/28/2024 08:01:43 Osteomyelitis 73072345 M86.272 Continue ertapenem 1 gm IV qd to complete 6 wk course, last day 05/17. With probiotic BID.Contin ue local care as ordered.Mo nitor labs (CBC, CMP, ESR, and CRP weekly until 05/18) and skin condition. Continue pain control with tramadol 50 mg qhs and BID prn, oxycodone 5 mg q 6 hrs prn and APAP 650 mg q 6 hrs prn.To be followed by wound care.Julio César cade f/u with Dr. Lu Holder who has offices in [facility] and [place]. [place] # is Falls [phone] R29.6 Continues to be a high fall risk.Able to restart rehab after hospitaliz ation.Need s PT/OT for strengthen ing, balance, gait training, safety and function.C ontinue fall precaution s.Monitor for safety. Chronic di astolic heart failure 969117801 I50.32 Appears euvolemic. Continue furosemide 10 mg qdMonitor resp. status, fluid status, wts and labs. Chronic ob structive pulmonary disease 43506977 J43.8 Continues with no sxs.Contin ue Advair 250/50 BID and albuterol nebs q 6 hrs prnMonitor resp status. Type 2 jr betes mellitus 26941613 E11.21 Sugars inpt were all <100Last HgA1C was 6.1 in 06/2023.Con tinue gabapentin 300 MG qhs and other pain meds as above for neuropathy .Monitor fingerstic ks prn and HgA1C q 3-6 months Paroxysmal atrial flutter 301121666 I48.92 Rate remains in good control on amiodarone 200 mg qdNo AC due to age and fall riskMonito r HR Restless legs 69708215 G 25.81 Continue ropinirole 2 mg BIDMonitor sxs. Mixed anxi ety and depressive disorder 359502418 F41.8 Mood sl. down due to pain not improving. Continue escitalopr am 30 mg qd, trazadone 25 mg qhs and 12.5 mg BID prn.Monito r mood.Consu lt psych prn Anemia of chronic disease 413251356 D63.8 Hgb remains stable.Con tinue FeSO4 325 mg qd with vitamin C 250 mg qd for absorption .Monitor labs Hyperlipidemia 05593399 E78.49 Continue atorvastat in 20 mg qdMonitor labs yearly Gastroesop hageal reflux disease 070767789 K21.9 No current sxs.Contin ue pantoprazo le 40 mg qdMonitor sxs Chronic ki dney disease 923354054 N18.2 Renal function remains stableCont inue to avoid nephrotoxi c meds as able.Monit or labs.Renal consult prn. Chronic back pain 826257 002 G89.29 Continue meds as above.Janice tor sxs. Peripheral venous insufficiency 26059121 I87.2 No current sxs.Contin ue local care and elevation. [id number] [facility] [address] [place] [address] [place] [address] 04/16/2024 08:54:52 04/28/2024 08:26:12 Osteomyelitis 73786162 M86.272 Continue ertapenem 1 gm IV qd until ontin ue probiotic BIDContinu e local care as ordered.Mo nitor labs (CBC, CMP, ESR, and CRP weekly until 05/18) and skin condition. Continue pain control with tramadol 50 mg qhs and BID prn, oxycodone 5 mg q 6 hrs prn and APAP 650 mg q 6 hrs prn.To be followed by wound care.Julio César cade f/u with Dr. Lu Holder who has offices in [facility] and [place]. [place] # is Falls [phone] R29.6 Continues to be a high fall risk.Able to restart rehab after hospitaliz ation.Need s PT/OT for strengthen ing, balance, gait training, safety and function.C ontinue fall precaution s.Monitor for safety. Chronic di astolic heart failure 693720550 I50.32 Appears euvolemic. Continue furosemide 10 mg qdMonitor resp. status, fluid status, wts and labs. Chronic ob structive pulmonary disease 36242463 J43.8 Continues with no sxs.Contin ue Advair 250/50 BID and albuterol nebs q 6 hrs prnMonitor resp status. Paroxysmal atrial flutter 407036031 I48.92 Rate remains in good control on amiodarone 200 mg qdNo AC due to age and fall riskMonito r HR Restless legs 50588215 G 25.81 Continue ropinirole 2 mg BIDMonitor sxs. Mixed anxi ety and depressive disorder 436084162 F41.8 Continue escitalopr am 30 mg qd, trazadone 25 mg qhs and 12.5 mg BID prn.Monito r mood.Consu lt psych prn Anemia of chronic disease 125558030 D63.8 Continue FeSO4 325 mg qd with vitamin C 250 mg qd for absorption .Monitor labs Hyperlipidemia 78273354 E78.49 Continue atorvastat in 20 mg qdMonitor labs yearly Gastroesop hageal reflux disease 516518994 K21.9 No current sxs.Contin ue pantoprazo le 40 mg qdMonitor sxs [id number] FRIEDA ANDERSON JENSEN [address] [place] [address] [place] [address] 04/20/2024 10:04:50 04/28/2024 08:59:08 Osteomyelitis 43635627 M86.272 left foot 2nd toe with woundgrima cing and moaning from pain, although I have not touch her foot.Cindy nue ertapenem 1 gm IV qd until ontin ue probiotic BIDContinu e local care as ordered.Mo nitor labs (CBC, CMP, ESR, and CRP weekly until 05/18) and skin condition. Continue pain control with tramadol 50 mg qhs and BID prn, oxycodone 5 mg q 6 hrs prn and APAP 650 mg q 6 hrs prn.To be followed by wound care.cindy nue with wound care treatment Linda neumann f/u with Dr. Lu Holder who has offices in [facility] [place] and [place]. Lius [place] # is Chronic di astolic heart failure 275980615 I50.32 Appears euvolemic. Continue furosemide 10 mg qdMonitor resp. status, fluid status, wts and labs. Chronic ob structive pulmonary disease 37785580 J43.8 breathing easy and unlabored. Continue Advair 250/50 BID and albuterol nebs q 6 hrs prnMonitor resp status. Mixed anxi ety and depressive disorder [id number] F41.8 her mood is normal reports eating and drinking ok.Continu e escitalopr am 30 mg qd, trazadone 25 mg qhs and 12.5 mg BID prn.Monito r mood.Consu lt psych prn [id number] MD DARRIN Perry [address] [place] [address] [place] [address] 04/23/2024 22:13:47 04/30/2024 18:09:13 Osteomyelitis [id number] M86.272 Continue ertapenem 1 gm IV qd to complete 6 wk course, last day 05/17. With probiotic BID.Contin ue local care as ordered.Mo nitor labs (CBC, CMP, ESR, and CRP weekly until 05/18) and skin condition. Continue pain control with tramadol 50 mg qhs and BID prn, oxycodone 5 mg q 6 hrs prn and APAP 650 mg q 6 hrs prn.To be followed by wound care.Will have staff contact Dr. Lu Holder's office again. Has offices in [facility] and [place]. [place] # is Falls [id number] R29.6 Is still a high fall risk.Needs PT/OT for strengthen ing, balance, gait training, safety and function.C ontinue fall precaution s.Monitor for safety. Chronic di astolic heart failure [id number] I50.32 Remains euvolemic. Continue furosemide 10 mg qdMonitor resp. status, fluid status, wts and labs. Chronic ob structive pulmonary disease 47767493 J43.8 Continues with no sxs.Contin ue Advair 250/50 BID and albuterol nebs q 6 hrs prnMonitor resp status. Type 2 jr betes mellitus 81094444 E11.21 Sugars were all good, so not being checked regularly. Last HgA1C was 6.1 in 06/2023.Con tinue gabapentin 300 MG qhs and other pain meds as above for neuropathy .Monitor fingerstic ks prn and HgA1C q 3-6 months [id number] GOLDIE TREVIZO [address] [place] [address] [place] [address] 04/30/2024 08:46:54 05/02/2024 09:31:27 Osteomyelitis [id number] M86.272 left foot 2nd toe with wound, currently dry.Contin ue ertapenem 1 gm IV qd until ontin ue probiotic BIDContinu e local care as ordered.Mo nitor labs (CBC, CMP, ESR, and CRP weekly until 05/18) and skin condition. Continue pain control with tramadol 50 mg qhs and BID prn, oxycodone 5 mg q 6 hrs prn and APAP 650 mg q 6 hrs prn.To be followed by wound care.cindy nue with wound care treatment ordersShstef neumann f/u with Dr. Lu Holder who has offices in [facility] and [place]. [place] # is Chronic di astolic heart failure [id number] I50.32 Appears euvolemic. Continue furosemide 10 mg qdMonitor resp. status, fluid status, wts and labs. Chronic ob structive pulmonary disease 35966115 J43.8 breathing easy and unlabored. Continue Advair 250/50 BID and albuterol nebs q 6 hrs prnMonitor resp status. Mixed anxi ety and depressive disorder 753378217 F41.8 her mood is normal reports eating and drinking ok.Continu e escitalopr am 30 mg qd, trazadone 25 mg qhs and 12.5 mg BID prn.Monito r mood.Consu lt psych prn Gastroesop hageal reflux disease 807671070 K21.9 Reporting some nausea after eating, unsure if may be related to abx use. Discused with nsg., will monitor.Co ntinue pantoprazo le 40 mg qdMonitor sxs Restless legs 26255373 G 25.81 Continue requip, very helpful Headache 19201036 R51.9 history of, including migraines, for years.Most headaches in the forehead area and above eyes.APAP discussed, helps, would like it sched. if possible.D iscussed claudine nsg. who also feels it would be a good idea, so will sched. 650 mg tid.Monito r. [id number] FRIDEA ANDERSON [address] [place] [address] [place] [address] 05/05/2024 11:02:17 05/06/2024 15:43:52 Osteomyelitis [id number] M86.272 left foot 2nd toe with wound, currently dry.Contin ue ertapenem 1 gm IV qd until ontin ue probiotic BIDContinu e local care as ordered.Mo nitor labs (CBC, CMP, ESR, and CRP weekly until 05/18) and skin condition. Continue pain control with tramadol 50 mg qhs and BID prn, oxycodone 5 mg q 6 hrs prn and APAP 650 mg q 6 hrs prn.To be followed by wound care.cindy nue with wound care treatment ordersShstef neumann f/u with Dr. Lu Holder who has offices in [facility], [place] and [place]. [place] # is Chronic di astolic heart failure [id number] I50.32 Appears euvolemic. Continue furosemide 10 mg qdMonitor resp. status, fluid status, wts and labs. Chronic ob structive pulmonary disease 09740412 J43.8 breathing easy and unlabored. Continue Advair 250/50 BID and albuterol nebs q 6 hrs prnMonitor resp status. 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 if possible.Eloy mo. who also feels it would be a good idea, so will sched. 650 mg tid.Monito r. [id number] FRIEDA ANDERSON [facility] JENSEN [address] [place] [address] [place] [address] 05/07/2024 10:05:01 05/11/2024 16:11:56 Osteomyelitis 71397700 M86.272 Continue ertapenem 1 gm IV qd until ontin ue probiotic BIDContinu e local care as ordered.Mo nitor labs (CBC, CMP, ESR, and CRP weekly until 05/18) and skin condition. Continue pain control with tramadol 50 mg qhs and BID prn, oxycodone 5 mg q 6 hrs prn and APAP 650 mg q 6 hrs prn.To be followed by wound care.cindy nue with wound care treatment ordersSh ld f/u with Dr. Lu Holder who has offices in [facility], [place] and [place]. [place] # is Chronic di astolic heart failure [id number] I50.32 Appears euvolemic. Continue furosemide 10 mg qdMonitor resp. status, fluid status, wts and labs. Chronic ob structive pulmonary disease 71552577 J43.8 breathing easy and unlabored. Continue Advair 250/50 BID and albuterol nebs q 6 hrs prnMonitor resp status. Mixed anxi ety and depressive disorder 258525962 F41.8 Continue escitalopr am 30 mg qd, trazadone 25 mg qhs and 12.5 mg BID prn.Monito r mood.Consu lt psych prn Gastroesop hageal reflux disease 012972541 K21.9 Continue pantoprazo le 40 mg qdMonitor sxs Restless legs 75293309 G 25.81 Continue requip, very helpful Headache 17038715 R51.9 continue tylenol 650 mg prn.encour age to increase oral hydration. [id number] FRIEDA ANDERSON [address] [place] [address] [place] [address] 05/11/2024 16:30:45 05/12/2024 13:09:07 Osteomyelitis 10178718 M86.272 Has been tolerating IV therapy.Co ntinue ertapenem 1 gm IV qd until ontin ue probiotic BIDContinu e local care as ordered.Mo nitor labs (CBC, CMP, ESR, and CRP weekly until 05/18) and skin condition. Continue pain control with tramadol 50 mg qhs and BID prn, oxycodone 5 mg q 6 hrs prn and APAP 650 mg q 6 hrs prn.To be followed by wound care.cindy yanceye with wound care treatment Linda neumann f/u with Dr. Lu Holder who has offices in [facility] and [place]. [place] # is Chronic di astolic heart failure [id number] I50.32 euvolemic. Continue furosemide 10 mg qdMonitor resp. status, fluid status, wts and labs. Chronic ob structive pulmonary disease 64043777 J43.8 Continue Advair 250/50 BID and albuterol nebs q 6 hrs prnMonitor resp status. Mixed anxi ety and depressive disorder 604844470 F41.8 Continue escitalopr am 30 mg qd, trazadone 25 mg qhs and 12.5 mg BID prn.mood is good today. pleasant on exam.Monit or moodConsul t psych prn Gastroesop hageal reflux disease 477777484 K21.9 Continue pantoprazo le 40 mg qdMonitor sxs Restless legs 37346513 G 25.81 Continue requip 2 mg bid Headache 80121655 R51.9 continue tylenol 650 mg prn.encour age to increase oral hydration. [id number] FRIEDA ANDERSON JENSEN [address] [place] [phone] 05/15/2024 10:17:08 05/19/2024 11:08:19 Osteomyelitis [id number] M86.272 Has been tolerating IV therapy.Co ntinue ertapenem 1 gm IV qd until ontin ue probiotic BIDContinu e local care as ordered.Mo nitor labs (CBC, CMP, ESR, and CRP weekly until 05/18) and skin condition. Chronic di astolic heart failure 268163754 I50.32 euvolemic. Continue furosemide 10 mg qdMonitor resp. status, fluid status, wts and labs. Chronic ob structive pulmonary disease 04645316 J43.8 Continue Advair 250/50 BID and albuterol nebs q 6 hrs prnMonitor resp status. Mixed anxi ety and depressive disorder 553442201 F41.8 Continue escitalopr am 30 mg qd, trazadone 25 mg qhs and 12.5 mg BID prn.mood is good today. pleasant on exam.Monit or moodConsul t psych prn Gastroesop hageal reflux disease 947330146 K21.9 Continue pantoprazo le 40 mg qdthere has been no reported GI upset. Restless legs 56563729 G 25.81 Continue requip 2 mg bid Headache 37424067 R51.9 continue tylenol 650 mg prn.encour age to increase oral hydration. [id number] FRIEDA ANDERSON [address] [address] 05/18/2024 08:44:49 05/19/2024 11:16:27 Osteomyelitis 38611925 M86.272 completed abxcontinu e probiotic BIDContinu e local care as ordered.f/ u appt. with ID later today Chronic di astolic heart failure 391284372 I50.32 stableCont inue furosemide 10 mg qdMonitor resp. status, fluid status, wts and labs. Chronic ob structive pulmonary disease 70369815 J43.8 breathing easy and unlabored. Continue Advair 250/50 BID and albuterol nebs q 6 hrs prnMonitor resp status. Mixed anxi ety and depressive disorder 150408803 F41.8 Continue escitalopr am 30 mg qd, trazadone 25 mg qhs and 12.5 mg BID prn.Monito r moodConsul t psych prn Gastroesop hageal reflux disease 402312834 K21.9 Continue pantoprazo le 40 mg qdthere has been no reported GI upset. Restless legs 07785713 G 25.81 Continue requip 2 mg bid Headache 33818669 R51.9 continue tylenol 650 mg prn.encour age to increase oral hydration. [id number] FRIEDA ANDERSON [address] [address] 05/25/2024 09:58:25 05/29/2024 09:27:36 Osteomyelitis 19091625 M86.272 completed abx Chronic di astolic heart failure 498142562 I50.32 euvolemicC ontinue furosemide 10 mg qdMonitor resp. status, fluid status, wts and labs. Chronic ob structive pulmonary disease 95547520 J43.8 breathing easy and unlabored. Continue Advair 250/50 BID and albuterol nebs q 6 hrs prnMonitor resp status. Mixed anxi ety and depressive disorder 528819302 F41.8 Continue escitalopr am 30 mg qd, trazadone 25 mg qhs and 12.5 mg BID prn.Monito r moodConsul t psych prn Gastroesop hageal reflux disease 296356797 K21.9 Continue pantoprazo le 40 mg qdthere has been no reported GI upset. Restless legs 96530268 G 25.81 Continue requip 2 mg bid Headache 58990144 R51.9 continue tylenol 650 mg prn.encour age to increase oral hydration. [id number] FRIEDA ANDERSON [address] [address] 06/01/2024 09:58:25 06/03/2024 09:34:34 Osteomyelitis 16172966 M86.272 completed abx Chronic di astolic heart failure 258655168 I50.32 euvolemicC ontinue furosemide 10 mg qdMonitor resp. status, fluid status, wts and labs. Chronic ob structive pulmonary disease 47572985 J43.8 breathing easy and unlabored. Continue Advair 250/50 BID and albuterol nebs q 6 hrs prnMonitor resp status. Mixed anxi ety and depressive disorder 714533209 F41.8 mood is stableCont inue escitalopr am 30 mg qd, trazadone 25 mg qhs and 12.5 mg BID prn.Monito r moodConsul t psych prn [id number] FRIEDA ANDERSON [address] [address] 06/03/2024 11:42:59 06/09/2024 13:21:42 Osteomyelitis 30562071 M86.272 completed abx Chronic di astolic heart failure 101808868 I50.32 euvolemicC ontinue furosemide 10 mg qdMonitor resp. status, fluid status, wts and labs. Chronic ob structive pulmonary disease 46013061 J43.8 breathing easy and unlabored. Continue Advair 250/50 BID and albuterol nebs q 6 hrs prnMonitor resp status. Mixed anxi ety and depressive disorder 729293595 F41.8 mood is stableCont inue escitalopr am 30 mg qd, trazadone 25 mg qhs and 12.5 mg BID prn.Monito r moodConsul t psych prn [id number] FRIEDA ANDERSON [address] [place] [address] 06/09/2024 10:12:41 06/11/2024 14:30:47 Osteomyelitis 75225695 M86.272 06/09:clinic ally she is stableleft foot 2 nd toe-recent ly completed IV antibiotic s ertapenem 1 gm daily for 6 weeksrecen tly seen on 06/03 by podiatry, f/u appt scheduled for 06/18/24.Ma y need to see vascular; podiatry concern for possible need for amputation message left today will podiatry to discuss plan of care. awaiting call back.will order xray of left foot 3 views; consider ordering MRI as well.will add tx ord to cleanse toe daily with warm soapy water with peroxide pat dry and apply bacitracin with DCD BID. [id number] FRIEDA ANDERSON [address] [place] [address] 06/11/2024 11:46:23 06/15/2024 11:21:06 Osteomyelitis 33810686 M86.272 06/09:clinic ally she is stableleft foot 2 nd toe-recent ly completed IV antibiotic s ertapenem 1 gm daily for 6 weeksrecen tly seen on 06/03 by podiatry.M ay need to see vascular; podiatry concern for possible need for amputation message left today will podiatry to discuss plan of care. awaiting call back.will order xray of left foot 3 views; consider ordering MRI as well.will add tx ord to cleanse toe daily with warm soapy water with peroxide pat dry and apply bacitracin with DCD BID.xray results: no acute abnormalit y is seen in the left foot. There is a marked hallux valgus of the left great toe. There is calcificat ion in the Achilles tendon insertion on the heel. 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 06/11: Plan of care discussed with patient and daughter Milagro, we discussed Dr. Peter diez, for vascular consult, xray discussed; patient would like to proceed with a second consult with ortho. appt 06/18/24. [id number] FRIEDA ANDERSON JENSEN [address] [place] [address] J[place]SE [place] [address] 06/15/2024 09:48:35 06/17/2024 10:12:04 Osteomyelitis [id number] M86.272 06/09:clinic ally she is stableleft foot 2 nd toe-recent ly completed IV antibiotic s ertapenem 1 gm daily for 6 weeksrecen tly seen on 06/03 by podiatry.M ay need to see vascular; podiatry concern for possible need for amputation message left today will podiatry to discuss plan of care. awaiting call back.will order xray of left foot 3 views; consider ordering MRI as well.will add tx ord to cleanse toe daily with warm soapy water with peroxide pat dry and apply bacitracin with DCD BID.xray results: no acute abnormalit y is seen in the left foot. There is a marked hallux valgus of the left great toe. There is calcificat ion in the Achilles tendon insertion on the heel. 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 06/11: Plan of care discussed with patient and daughter Milagro, we discussed Dr. Peter diez, for vascular consult, xray discussed; patient would like to proceed with a second consult with ortho. appt 06/18/24. Chronic di astolic heart failure 284176249 I50.32 euvolemicw eight stableCont inue furosemide 10 mg qdMonitor resp. status, fluid status, wts and labs. Chronic ob structive pulmonary disease 72619064 J43.8 breathing easy and unlabored. Continue Advair 250/50 BID and albuterol nebs q 6 hrs prnMonitor resp status. [id number] FRIEDA ANDERSON JENSEN [address] [place] [address] [place] [address] 06/22/2024 08:47:12 06/24/2024 08:50:27 Osteomyelitis 31230360 M86.272 06/09:clinic ally she is stableleft foot 2 nd toe-recent ly completed IV antibiotic s ertapenem 1 gm daily for 6 weeksrecen tly seen on 06/03 by podiatry.M ay need to see vascular; podiatry concern for possible need for amputation message left today will podiatry to discuss plan of care. awaiting call back.will order xray of left foot 3 views; consider ordering MRI as well.will add tx ord to cleanse toe daily with warm soapy water with peroxide pat dry and apply bacitracin with DCD BID.xray results: no acute abnormalit y is seen in the left foot. There is a marked hallux valgus of the left great toe. There is calcificat ion in the Achilles tendon insertion on the heel. 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 06/11: Plan of care discussed with patient and daughter Milagro, we discussed Dr. Peter diez, for vascular consult, xray discussed; patient would like to proceed with a second consult with ortho. 06/18/24.- awaiting consult with christi gaines. Mixed anxi ety and depressive disorder 123428376 F41.8 mood is stablerece nt room change transition to LTC, adjusting well. Most of the women she joins at activities reside on same unit, she is happy about this.Cindy nue escitalopr am 30 mg qd, trazadone 25 mg qhs and 12.5 mg BID prn.Monito r moodConsul t psych prn [id number] FRIEDA ANDERSON JENSEN [address] [place] [phone] 06/29/2024 10:45:15 06/30/2024 13:34:02 Osteomyelitis 50784668 M86.272 06/09:clinic ally she is stableleft foot 2 nd toe-recent ly completed IV antibiotic s ertapenem 1 gm daily for 6 weeksrecen tly seen on 06/03 by podiatry.M ay need to see vascular; podiatry concern for possible need for amputation message left today will podiatry to discuss plan of care. awaiting call back.will order xray of left foot 3 views; consider ordering MRI as well.will add tx ord to cleanse toe daily with warm soapy water with peroxide pat dry and apply bacitracin with DCD BID.xray results: no acute abnormalit y is seen in the left foot. There is a marked hallux valgus of the left great toe. There is calcificat ion in the Achilles tendon insertion on the heel. 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 06/11: Plan of care discussed with patient and daughter Milagro, we discussed Dr. Peter diez, for vascular consult, xray discussed; patient would like to proceed with a second consult with ortho. Mixed anxi ety and depressive disorder 102862222 F41.8 mood is stablerece nt room change transition to LTC, adjusting well. Most of the women she joins at activities reside on same unit, she is happy about this.Cindy nue escitalopr am 30 mg qd, trazadone 25 mg qhs and 12.5 mg BID prn.Monito r moodConsul t psych prn Chronic di astolic heart failure 679651585 I50.32 euvolemicw eight stable noted 166-168Con tinue furosemide 10 mg qdMonitor resp. status, fluid status, wts and labs. [id number] [facility] [address] [place] [address] 07/02/2024 11:07:08 07/03/2024 12:50:28 Mixed anxiety and depressive disorder 801401466 F41.8 mood is stable- she denies feeling hopeless, lonely or isolated.C ontinue escitalopr am 30 mg qd, trazadone 25 mg qhs and 12.5 mg BID prn.Monito r mood for negative changes.pt encouraged to continue to engage in social activities .Consult psych prn Chronic di astolic heart failure 211003769 I50.32 euvolemic- she denies any chest pain or shortness of breathweig ht stable noted 166-168Con tinue furosemide 10 mg qdMonitor resp. status, fluid status, wts and labs. Hammer toe 480021000 M20 .42 left foot 2 nd toe-recent ly completed IV antibiotic s ertapenem 1 gm daily for 6 weeks for osteomyeli tis. she continues to have discomfort . follow up xray results: no acute abnormalit y is seen in the left foot. [id number] FRIEDA ANDERSON [address] [address] 07/07/2024 14:44:04 07/08/2024 11:39:59 Hammer toe 832508238 M20.42 left foot 2 nd toe-recent ly completed IV antibiotic s ertapenem 1 gm daily for 6 weeks for osteomyeli tis. she continues to have discomfort . follow up xray results: no acute abnormalit y is seen in the left foot. Mixed anxi ety and depressive disorder 957113464 F41.8 mood is stable- she denies feeling hopeless, lonely or isolated.C ontinue escitalopr am 30 mg qd, trazadone 25 mg qhs and 12.5 mg BID prn.Monito r mood for negative changes.pt encouraged to continue to engage in social activities .followed by psych prn recently seen 07/06 no new recommenda tion. Chronic di astolic heart failure 067804910 I50.32 euvolemic- she denies any chest pain or shortness of breathweig ht stable noted 166-168Con tinue furosemide 10 mg qdMonitor resp. status, fluid status, wts and labs. [id number] FRIEDA ANDERSON [address] [address] 07/13/2024 08:31:31 07/14/2024 11:43:51 Hammer toe 583360826 M20.42 07/13:stabl e, no worsening sx notedleft foot 2 nd toe-recent ly completed IV antibiotic s ertapenem 1 gm daily for 6 weeks for osteomyeli tis. she continues to have discomfort . follow up xray results: no acute abnormalit y is seen in the left foot. Mixed anxi ety and depressive disorder 885323161 F41.8 07/13: StableCont inue escitalopr am 30 mg qd, trazadone 25 mg qhs and 12.5 mg BID prn.Monito r mood for negative changes.pt encouraged to continue to engage in social activities .followed by psych prn recently seen 07/06 no new recommenda tion. Chronic di astolic heart failure 122101307 I50.32 07/13: stable.euv olemic- she denies any chest pain or shortness of breathweig ht stable noted 166-168Con tinue furosemide 10 mg qdMonitor resp. status, fluid status, wts and labs. [id number] FRIEDA ANDERSON [address] [address] 07/16/2024 10:15:02 07/21/2024 15:43:58 Hammer toe 037040407 M20.42 07/13:stabl e, no worsening sx notedleft foot 2 nd toe-recent ly completed IV antibiotic s ertapenem 1 gm daily for 6 weeks for osteomyeli tis. she continues to have discomfort . follow up xray results: no acute abnormalit y is seen in the left foot. Mixed anxi ety and depressive disorder 762928364 F41.8 Stable with delusional thoughts, she thinks staff is stealing her clothes.Co ntinue escitalopr am 30 mg qd, trazadone 25 mg qhs and 12.5 mg BID prn.Monito r mood for negative changes.pt encouraged to continue to engage in social activities .followed by psych prn recently seen 07/06 no new recommenda tion. Chronic di astolic heart failure 405289815 I50.32 stable.euv olemic- she denies any chest pain or shortness of breathweig ht stable noted 166-168Con tinue furosemide 10 mg qdMonitor resp. status, fluid status, wts and labs. [id number] FRIEDA ANDERSON [address] [address] 07/20/2024 11:57:24 07/21/2024 16:08:03 Hammer toe 185661366 M20.42 stable, no worsening sx notedleft foot 2 nd toe-recent ly completed IV antibiotic s ertapenem 1 gm daily for 6 weeks for osteomyeli tis. she continues to have discomfort . follow up xray results: no acute abnormalit y is seen in the left foot. Mixed anxi ety and depressive disorder 483573026 F41.8 07/19: seen by preliminary school psychologist will review notes when available. Stable with delusional thoughts, she thinks staff is stealing her clothes.Co ntinue escitalopr am 30 mg qd, trazadone 25 mg qhs and 12.5 mg BID prn.Monito r mood for negative changes.pt encouraged to continue to engage in social activities .followed by psych prn recently seen 07/06 no new recommenda tion. Chronic di astolic heart failure 677086994 I50.32 stable.euv olemic- she denies any chest pain or shortness of breathweig ht stable noted 166-168Con tinue furosemide 10 mg qdMonitor resp. status, fluid status, wts and labs. [id number] FRIEDA ANDERSON [facility] e [address] [place] [address] JESSE PALOMO [phone] 07/23/2024 11:46:33 07/24/2024 11:44:07 Hammer toe 769413622 M20.42 stable, no worsening sx notedleft foot 2 nd toe-recent ly completed IV antibiotic s ertapenem 1 gm daily for 6 weeks for osteomyeli tis. she continues to have discomfort . follow up xray results: no acute abnormalit y is seen in the left foot. Mixed anxi ety and depressive disorder 624865015 F41.8 StableCont inue escitalopr am 30 mg qd, trazadone 25 mg qhs and 12.5 mg BID prn.Monito r mood for negative changes.pt encouraged to continue to engage in social activities .followed by psych prn recently seen 07/06 no new recommenda tion. Chronic di astolic heart failure 590045970 I50.32 stable.euv olemic- she denies any chest pain or shortness of breathweig ht stable noted 166-168Con tinue furosemide 10 mg qdMonitor resp. status, fluid status, wts and labs. Chronic ob structive pulmonary disease 83228964 J43.8 breathing easy and unlabored. Continue Advair 250/50 BID and albuterol nebs q 6 hrs prnMonitor resp status. [id number] FRIEDA ANDERSON [address] [place] BR[place]SS[place] [address] 09/10/2024 08:43:17 09/11/2024 12:05:09 Mixed anxiety and depressive disorder 445901411 F41.8 mild emotional distress, crying during assessment 2/2 ble painContin ue escitalopr am 30 mg qd, trazadone 25 mg qhs and 12.5 mg BID prn.psych prn Chronic di astolic heart failure [id number] I50.32 euvolemic- she denies any chest pain or shortness of breathweig ht stableCont inue furosemide 20 mg qdMonitor resp. status, fluid status, wts and labs. Chronic ob structive pulmonary disease [id number] J43.8 breathing easy and unlabored. Continue Advair 250/50 BID and albuterol nebs q 6 hrs prnMonitor resp status. Neuropathy [id number] G62 .9 see hpiBLE without sx of infectiono n gabapentin 300 mg at hs -she has been having increasing sx and weakness, requiring 2 people assist.dis cussed increasing gabapentin to BID and re eval in a few days for effect.hx diabetes/n ot on meds/ will get updated A1c. (06/2023 noted 6.1) Restless legs [id number] G 25.81 Continue requip 2 mg bid [id number] FRIEDA ANDERSON [address] [place] [phone] 09/14/2024 10:23:24 09/15/2024 14:23:56 Neuropathy [id number] G62.9 BLE without sx of infectiong abapentin 300 mg BIDshe has been having increasing sx and weakness, requiring 2 people assist.hx diabetes/n ot on meds/ will get updated A1c. (06/2023 noted 6.1) - labs ord for today not completed will re-order. Restless legs [id number] G 25.81 Continue requip 2 mg bid [id number] FRIEDA ANDERSON [address] [place] [phone] 10/02/2024 11:01:09 10/05/2024 13:31:21 Pain of left ankle joint [id number] M25.572 localizedn on pitting left ankle swelling, no redness or warmthno foot discolorat ion, color is normal+CMS , pain with ROMplan for xray, labs with uric acid,apply ice 15 minutes to ankle TIDapply tyrone wrap compressio n dailywill schedule tylenol 650 mg TID and Motrin 400 mg BIDPT/OT eval and tx [id number] FRIEDA ANDERSON [address] [place]SS[place] [phone] 10/05/2024 11:01:37 10/06/2024 13:54:09 Pain of left ankle joint [id number] M25.572 localized/ swelling noted to have improved todaydenie s any new discomfort todaylabs and imaging reviewed with patient and her daughter was updated as well.labs WNL/see aboveXray soft tissue swelling in the ankle. No acute bone or joint abnormalit y is seen. There are soft tissue calcificat ions in the Achilles tendon near its inserntion on the heel.can continue ice 15 minutes to ankle TID for comfortwil l schedule tylenol 650 mg TID and Motrin 400 mg BIDPT/OT eval and tx Contusion of thigh 76270 003 S70.10XA see hpi/left thightende r to touchmonit or as it healsdiscu ssed with nursingcon tinue scheduled tylenol Health Concerns Section Related Observation LastModified by Organization Detai ls LastModified Time None Recorded Concern Status LastModified by Organization Details LastModified Time None Recorded Advance Directives Directive Y: Payers Encounter Date Sequence Insurance Name Policy Number Policy Anders Covered Member ID Anders Member ID Guarantor Name 07/23/2024 1 [place] [employer] Shreya M Gravel [id number] Shreya Gravel 07/23/2024 2 [place] [id number] Shreya Gravel [id number] Shreya Gravel 09/10/2024 1 [place] [employer] Shreya M Gravel [id number] Shreya Gravel 09/10/2024 2 [place] [id number] Shreya Gravel [id number] Shreya Gravel 09/14/2024 1 [place] [employer] Shreya M Gravel [id number] 4 Shreya Gravel 09/14/2024 2 [place] [id number] Shreya Gravel [id number] Shreya Gravel 10/02/2024 1 [place] [employer] Shreya M Gravel [id number] Shreya Gravel 10/02/2024 2 [place] [id number] Shreya Gravel [id number] Shreya Gravel 10/05/2024 1 [place] Shreya M Gravel [id number] Shreya Gravel 10/05/2024 2 [facility] [id number] Shreya Gravel [id number] Shreya Gravel Notes Date Note Type Note Provider Name and Address Organization Details Recorded Time 07/23/2024 text/html This is a 88 yr old female with a past medical history of hypertension, hyperlipidemia, CAD,CABG, HF, atrial flutter, COPD, T2DM,neuropathy, CKD stage II, GERD, restless leg syndrome, depression, anxiety, LLE cellulitis. Seen for routine rounding. on exam she is pleasant and stable at baseline in NAD. There is no acute concerns. FRIEDA ANDERSON [address] [facility], [address], [place], [address], [employer] 07/23/2024 18:50:21 09/10/2024 text/html This is a 88 yr old female with a past medical history of hypertension, hyperlipidemia, CAD,CABG, HF, atrial flutter, COPD, T2DM,neuropathy, CKD stage II, GERD, restless leg syndrome, depression, anxiety, LLE cellulitis. Seen for routine rounding. She is at her baseline, She is eating and drinking ok, denies any issues with elimination. she does reports BLE pain with numbness and tingling for 2 days, reports sitting in wheelchair for long period of time. she endorse headache for 2 days unable to sleep last night. she did not report concerns to the nurse today. per nursing recent decline in functioning, she is now a max assist with transfers. FRIEDA ANDERSON [address] [facility], [address], [place], [address], [employer] 09/10/2024 19:04:25 09/14/2024 text/html This is a 88 yr old female with a past medical history of hypertension, hyperlipidemia, CAD,CABG, HF, atrial flutter, COPD, T2DM,neuropathy, CKD stage II, GERD, restless leg syndrome, depression, anxiety, LLE cellulitis. Seen for acute rounding visit follow up BLE neuropathy pain. Changes made to gabapentin, patient reports improvement. will continue with current dose and frequency. There are no acute nursing concerns. FRIEDA ANDERSON [address] [facility], [address], [place], [address], [employer] 09/14/2024 14:27:57 10/02/2024 text/html This is a 89 yr old female LTC resident seen via telemed for acute rounding visit per nursing request.Per nursing patient is noted with non traumatic left ankle swelling associated with swelling. There is no pain with palpation, she does report pain with passive ROM. Patient denies any recent injuries or falls. Nursing reports that patient has been having difficulty transferring and is becoming more dependent on staff to assist with transfers. Past medical history of hypertension, hyperlipidemia, CAD,CABG, HF, atrial flutter, COPD, T2DM,neuropathy, CKD stage II, GERD, restless leg syndrome, depression, anxiety, LLE cellulitis. FRIEDA ANDERSON [address] [facility], [address], [place], [address], [employer] 10/02/2024 11:23:10 10/05/2024 text/html This is a 89 yr old female LTC resident seen for acute rounding visit follow up left ankle swelling. She is at her baseline in [facility]. On exam she tells me that ankle pain is chronic and she knows it will continue to get worse because of aging, she is not concern with pain at this time. she has been having more difficulty with putting weight on LLE and is unable to stand long enough for transfer, she states that she injured her left upper thigh, while transferring from wheelchair to bed and her hit the bed guard rail, according to he this has happened several times. Past medical history of hypertension, hyperlipidemia, CAD,CABG, HF, atrial flutter, COPD, T2DM,neuropathy, CKD stage II, GERD, restless leg syndrome, depression, anxiety, LLE cellulitis. FRIEDA ANDERSON [address] [facility], [address], [place], [address], [facility] 10/05/2024 16:22:00 OBGyn Episode No OBEpisode recorded.
[2024-11-09 06:36] LABS: Basophils Percent Auto 0.5 % (0-2); Eosinophils Absolute Auto 0.2 X10*3/uL (0.0-0.4); Eosinophils Percent Auto 4.2 % (0-4); Hematocrit 35.9 % (37.0-47.0); Hemoglobin 11.8 g/dl (12.0-16.0); Imm Gran Abs Auto 0.01 X10*3/uL (0.00-0.03); Imm Gran Pct Auto 0.2 % (0.0-0.4); Lymphocytes Absolute Auto 1.5 X10*3/uL (1.2-4.9); Lymphocytes Percent Auto 35.6 % (20-40); Mean Corpuscular HGB Conc 32.9 g/dl (31.0-35.0); Mean Corpuscular Hemoglobin 32.4 pg (27.0-33.0); Mean Corpuscular Volume 98.6 fL (80.0-98.0); Monocytes Absolute Auto 0.4 X10*3/uL (0.1-1.2); Monocytes Percent Auto 9.5 % (2-11); Neutrophils Absolute Auto 2.2 x10*3/uL (2.0-8.3); Platelet Count 179 X10*3/uL (160-400); Red Blood Count 3.64 X10*6/uL (4.20-5.50); Red Cell Distribution Width 13.9 % (11.0-16.0); White Blood Count 4.3 X10*3/uL (4.8-10.8)
[2024-11-09 06:42] LABS: Anion Gap 10 (12-20); Blood Urea Nitrogen 22 mg/dL (9-16); Calcium 8.9 mg/dL (8.4-10.2); Carbon Dioxide 25 mmol/L (22-29); Chloride 108 mmol/L (96-108); Estimated Glomerular Filt Rate > 60; Glucose Random 98 mg/dL (60-115); Sodium 139 mmol/L (135-145)
== END 2024-11-09 06:16 | disposition home or self-care (01) ==
LOC: HO.MMNH3L 06:15
PROVIDERS: Visit Provider Nurse Practitioner
DX: I48.92 Unspecified atrial flutter (principal)
CPT/HCPCS: 36415; 80048; 85025

== ENCOUNTER 2024-11-30 13:35 | Outpatient (REF) | payer MEDICARE, MEDICAID, SELFPAY ==
[2024-11-30 13:48] LABS: Appearance Urine Clear; Color Urine Yellow; Glucose Urine UA Negative (Negative); Leukocyte Esterase Urine Negative (Negative); Nitrite Urine Negative (Negative); Specific Gravity - Urine 1.015 (1.005-1.025); Urine Blood Negative (Negative); Urine Ketones Negative (Negative); Urine Protein Trace mg/dL (Neg-Trace)
--- OUTSIDE RECORDS SUMMARY | 2024-11-30 15:35 | XMS_ITS | Data Portability ---
Author Organization [facility] PAIN OFFICE Address [address] [place] [address] Care Team Providers Care Hot Roll Laminator Name Role Phone ABAD GONSALES Primary Care Provider GUILHERME DIAZ Referring Provider Assessment Encounter Date [...] appointment has been booked. She needs a catering driver on the day of the procedure. [...] By Organization Details Last Modified Time 06/26/2021 [id number] She was advised against bed rest lasting longer than four days and to continue activities as tolerated. [email or web address] Not available 06/30/2021 10:01:24 07/11/2021 [id number] She was advised to continue with activities as tolerated [email or web address] Not available 07/11/2021 13:35:39 10/04/2021 [id number] She was advised to continue with activities as tolerated [email or web address] Not available 10/04/2021 11:55:19 12/12/2021 [id number] She was advised to continue with activities as tolerated [email or web address] Not available 12/12/2021 12:09:37 08/21/2022 [id number] She was advised to continue with activities as tolerated [email or web address] Not available 08/21/2022 10:34:48 Reason for Referral None Reported. Problems Name Problem SNOMED Code Status Onset Date Resolution Date Notes Provider Name and Address Organization Details Recorded Time Spinal stenosis of lumbar region 07566976 Active 2016 Alf adams MD [address] [place] [address] , [address], [facility] [place], [address] [facility] [place] [facility] 7 10:55:25 Lumbosacral spondylosis without myelopathy 54629202 Active 2016 Alf adams MD [address] , [address], [place], [address], [place] [facility] 7 10:55:26 Lumbosacral radiculitis 68139175 Active 2016 Alf adams MD [address] , [address], [place], [address], [place] [facility] 7 10:55:27 Displacement of lumbar intervertebral disc without myelopathy 79504141 Active 2016 Alf adams MD [address] , [address], [place], [address], [place] [facility] 7 10:55:30 Post-herpetic neuritis 297090101 Active Alf adams MD [address] , [address], [place], [address], [place] [facility] 9 14:56:27 Inflammation of joint of shoulder region 499229490 Active Alf adams MD [address] , [address], [place], [address], [place] [facility] 9 09:39:04 Problem Notes None recorded. Procedures Surgical History Date Name Laterality Status Provider Name and Address Organization Details Recorded Time 08/21/20 22 Lumbar Epidural steroid injection under fluoroscopic guidance completed Alf Posada MD [address] , [address], [place], [address], [place] [facility] 08/21/2022 10:36:53 12/13/19 22 Lumbar Epidural steroid injection under fluoroscopic guidance completed Alf Posada MD [address] , [address], [place], [address], [place] [facility] 12/12/2021 12:09:46 10/04/20 21 Lumbar Epidural steroid injection under fluoroscopic guidance completed Alf Posada MD [address] , [address], [place], [address], [place] [facility] 10/04/2021 11:55:59 07/11/20 21 Lumbar Epidural steroid injection under fluoroscopic guidance completed Alf Posada MD [address] , [address], [place], [address], [place] [facility] 07/11/2021 13:35:45 04/11/20 21 Lumbar Epidural steroid injection under fluoroscopic guidance completed Alf Posada MD [address] , [address], [place], [address], [place] [facility] 04/11/2021 13:56:00 01/11/20 21 Lumbar Epidural steroid injection under fluoroscopic guidance completed Alf Posada MD [address] , [address], [place], [address], [place] [facility] 01/12/2021 09:57:53 09/06/20 20 Lumbar Epidural steroid injection under fluoroscopic guidance completed Alf Posada MD [address] , [address], [place], [address], [place] [facility] 09/08/2020 14:56:36 06/15/20 20 Lumbar Epidural steroid injection under fluoroscopic guidance completed Alf Posada MD [address] , [address], [place], [address], [place] [facility] 06/15/2020 14:00:13 05/23/20 20 Intra-articular shoulder steroid injection under ultrasound guidance completed Alf Posada MD [address] , [address], [place], [address], [place] [facility] 05/23/2020 15:11:49 05/11/20 19 Intra-articular shoulder steroid injection under ultrasound guidance completed Alf Posada MD [address] , [address], [place], [address], [place] [facility] 05/11/2019 09:43:25 03/31/20 19 Lumbar Epidural steroid injection under fluoroscopic guidance completed Alf Posada MD [address] , [address], [place], [address], [place] [facility] 03/31/2019 18:50:07 01/08/20 19 Fluoroscopic Guided Lumbar Facet Steroid Injections of levels completed Alf Posada MD [address] , [address], [place], [address], [place] [facility] 01/08/2019 15:03:53 09/17/20 17 Fluoroscopic Guided Lumbar Facet Steroid Injections of levels completed Alf Posada MD [address] , [address], [place], [address], [place] [facility] 09/17/2017 10:08:58 08/07/20 17 Fluoroscopic Guided Lumbar Facet Steroid Injections of levels completed Alf Posada MD [address] , [address], [place], [address], [place] [facility] 08/07/2017 10:36:11 05/08/20 17 Lumbar Epidural steroid injection under fluoroscopic guidance completed Alf Posada MD [address] , [address], [place], [address], [place] [facility] 05/08/2017 10:54:37 Joint Replacement completed Fayechris Sotoer [place] [facility] 03/14/2017 14:36:04 Cholecystectomy completed Faye Varghese [place] [facility] 03/14/2017 14:36:22 Back Surgery completed Alf Posada MD [address] , [address], [place], [address], [place] [facility] 04/02/2017 [...] completed Not Available Not Available Not Available [employer] Ultra Test strips TESTS DAILY FOR DM, [...] Not Available No t Available Fluzone High-Dose 5760-8468 (PF) 180 mcg/0.5 mL intramuscul ar syringe TO BE ADMINISTE RED BY PHARMACIS T FOR IMMUNIZAT ION 08/07 completed Not Available Not Available Not Available Fluzone High-Dose 1691-3342 (PF) 180 mcg/0.5 mL intramuscul ar syringe [...] Updated DateTime 1 160.02 cm 34.7 kg/m2 01006.1 g 58 /min 98 % 98 % 144 mm[Hg] 56 mm[Hg] Alf adams MD [facility] [address] [facility] , [address], [facility] [place], [address], [place] [facility] 1 [...] Is Your Level Of Alcohol Consumption? Moderate [id number] Information not available 07/22/2020 Are You Currently Employed? No [id number] Information not available 07/22/2020 Which Illicit Or Recreational Drugs Have You Used? NO [id number] Information not available 07/22/2020 Education 12 With Some College Information not available 03/14/2017 Live Alone Or With Others? Alone Information not available 03/14/2017 Marital Status Informatio n not available 03/14/2017 What Was The Date Of Your Most Recent Tobacco Screening? 03/31/2019 [id number] Information not available 07/22/2020 How Many Years Have You Smoked Tobacco? 20 [id number] Information not available 07/22/2020 Sex: Unknown Functional Status None recorded. Mental Status None recorded. Family History Nothing Reported. Medical History Condition Response Coronary Artery Disease Y Arthritis Y High Cholesterol Y Hypertension Y Asthma Y Gynecological HistoryNo gynecological history recorded. Obstetrics History GPAL:G 0 P 0 0 0 0 Past Encounters Encounter ID Performer Location Encounter Start Date Encounter Closed Date Diagnosis/Indication Diagnosis SNOMED-CT Code Diagnosis ICD10 Code Diagnosis Note [id number] Alf Posada MD PAIN OFFICE [address] [place] [address] 03/14/2017 13:22:16 03/14/2017 15:44:04 Spinal stenosis of lumbar region 72594340 M48.06 Lumbosacra l spondylosis without myelopathy 58344752 M47.817 Lumbosacra l radiculitis 12212371 M54.17 Displaceme nt of lumbar intervertebral disc without myelopathy 50895632 M51.26 [id number] Alf Posada MD PAIN OFFICE [address] [place] [address] 05/08/2017 09:51:37 05/09/2017 14:08:37 Spinal stenosis of lumbar region 81061744 M48.06 Lumbosacra l spondylosis without myelopathy 44457264 M47.817 Lumbosacra l radiculitis 60046511 M54.17 Displaceme nt of lumbar intervertebral disc without myelopathy 13083822 M51.26 [id number] Alf Posada MD PAIN OFFICE [address] [place] [address] 06/14/2017 10:36:32 06/17/2017 09:50:43 Spinal stenosis of lumbar region 67394467 M48.06 Lumbosacra l spondylosis without myelopathy 56814799 M47.817 Lumbosacra l radiculitis 58350654 M54.17 Displaceme nt of lumbar intervertebral disc without myelopathy 70915337 M51.26 [id number] Alf Posada MD [facility] [address] [place] [address] 08/07/2017 10:01:00 08/07/2017 15:19:24 Spinal stenosis of lumbar region 15071506 M48.062 Lumbosacra l spondylosis without myelopathy 77189699 M47.817 Lumbosacra l radiculitis 85481181 M54.17 Displaceme nt of lumbar intervertebral disc without myelopathy 83916088 M51.26 [id number] Alf Posada MD [facility] [address] [place] [address] 09/05/2017 10:11:57 09/05/2017 19:46:07 Spinal stenosis of lumbar region 95063129 M48.062 Lumbosacra l spondylosis without myelopathy 12713922 M47.817 Lumbosacra l radiculitis 40918762 M54.17 Displaceme nt of lumbar intervertebral disc without myelopathy 16532723 M51.26 [id number] Alf Posada MD [facility] [address] [place] [address] 09/17/2017 09:13:54 09/19/2017 09:09:31 Spinal stenosis of lumbar region 52848342 M48.062 Lumbosacra l spondylosis without myelopathy 20278322 M47.817 Lumbosacra l radiculitis 99213297 M54.17 Displaceme nt of lumbar intervertebral disc without myelopathy 78354094 M51.26 [id number] Alf Posada MD [facility] [address] [place] [address] 12/25/2018 11:24:23 12/25/2018 16:12:18 Spinal stenosis of lumbar region 17600233 M48.061 Lumbosacra l spondylosis without myelopathy 68218849 M47.817 Lumbosacra l radiculitis 58170023 M54.17 Displaceme nt of lumbar intervertebral disc without myelopathy 49783236 M51.26 [id number] Alf Posada MD [facility] [address] [facility] [place] [address] 01/07/2019 09:10:35 01/08/2019 15:11:02 Spinal stenosis of lumbar region 87237032 M48.062 Lumbosacra l spondylosis without myelopathy 06248896 M47.817 Lumbosacra l radiculitis 33146460 M54.17 Displaceme nt of lumbar intervertebral disc without myelopathy 00594930 M51.26 [id number] Alf Posada MD [facility] [address] [facility] [place] [address] 02/04/2019 14:13:14 02/04/2019 16:10:53 Post-herpetic neuritis 709470505 B02.29 Spinal linda nosis of lumbar region 46807225 M48.061 Lumbosacra l spondylosis without myelopathy 62513773 M47.817 Lumbosacra l radiculitis 80329264 M54.17 Displaceme nt of lumbar intervertebral disc without myelopathy 76474781 M51.26 [id number] Alf Posada MD PAIN OFFICE [address] [facility] [place] [address] 03/31/2019 09:49:03 03/31/2019 18:56:55 Spinal stenosis of lumbar region 52778605 M48.061 Lumbosacra l spondylosis without myelopathy 21850246 M47.817 Lumbosacra l radiculitis 17277912 M54.17 Displaceme nt of lumbar intervertebral disc without myelopathy 82767939 M51.26 [id number] Alf Posada MD [facility] [address] [facility] [place] [address] 05/11/2019 08:51:59 05/11/2019 09:45:44 Inflammation of joint of shoulder region 641102137 M13.819 Spinal linda nosis of lumbar region 24035637 M48.061 [id number] Alf Posada MD PAIN OFFICE [address] [facility] [place] [address] 12/14/2019 13:40:03 12/14/2019 16:14:01 Spinal stenosis of lumbar region 44691899 M48.061 Lumbosacra l spondylosis without myelopathy 45142856 M47.817 Lumbosacra l radiculitis 05416021 M54.17 Displaceme nt of lumbar intervertebral disc without myelopathy 26870021 M51.26 [id number] Alf Posada MD PAIN OFFICE [address] [place] [address] 02/12/2020 11:36:11 02/15/2020 12:09:29 Spinal stenosis of lumbar region 50647839 M48.061 Lumbosacra l spondylosis without myelopathy 37206611 M47.817 Lumbosacra l radiculitis 21902937 M54.17 Displaceme nt of lumbar intervertebral disc without myelopathy 61121809 M51.26 [id number] Alf Posada MD PAIN OFFICE [address] [place] [address] 05/13/2020 08:29:14 05/13/2020 09:22:37 Inflammation of joint of shoulder region 377511469 M13.819 Spinal linda nosis of lumbar region 06880036 M48.061 [id number] Alf Posada MD PAIN OFFICE [address] [place] [address] 05/23/2020 12:46:33 05/23/2020 15:14:52 Inflammation of joint of shoulder region 496059502 M13.819 Spinal linda nosis of lumbar region 67927310 M48.061 [id number] Alf Posada MD PAIN OFFICE [address] [place] [address] 06/15/2020 10:54:32 06/15/2020 14:04:50 Inflammation of joint of shoulder region 263823204 M13.819 Spinal linda nosis of lumbar region 38106739 M48.061 Lumbosacra l spondylosis without myelopathy 17757088 M47.817 Lumbosacra l radiculitis 09721381 M54.17 Displaceme nt of lumbar intervertebral disc without myelopathy 59555869 M51.26 [id number] Alf Posada MD [facility] [address] [facility] [place] [address] 07/13/2020 08:30:09 07/13/2020 11:05:07 Inflammation of joint of shoulder region 967015296 M13.819 Spinal linda nosis of lumbar region 03988408 M48.061 [id number] Alf Posada MD PAIN OFFICE [address] [facility] [place] [address] 09/06/2020 10:30:56 09/08/2020 15:55:16 Inflammation of joint of shoulder region 572313908 M13.819 Spinal linda nosis of lumbar region 94420760 M48.061 Lumbosacra l spondylosis without myelopathy 61652693 M47.817 Lumbosacra l radiculitis 41525608 M54.17 Displaceme nt of lumbar intervertebral disc without myelopathy 67129011 M51.26 [id number] Alf Posada MD PAIN OFFICE [address] [facility] [place] [address] 11/07/2020 08:59:33 11/07/2020 09:55:18 Spinal stenosis of lumbar region 82576475 M48.061 Lumbosacra l spondylosis without myelopathy 36256604 M47.817 Lumbosacra l radiculitis 38184169 M54.17 Displaceme nt of lumbar intervertebral disc without myelopathy 52410073 M51.26 [id number] Alf Posada MD PAIN OFFICE [address] [facility] [place] [address] 01/10/2021 13:47:25 01/12/2021 10:00:57 Inflammation of joint of shoulder region 638394141 M13.819 Spinal linda nosis of lumbar region 51527265 M48.061 Lumbosacra l spondylosis without myelopathy 37479536 M47.817 Lumbosacra l radiculitis 97034928 M54.17 Displaceme nt of lumbar intervertebral disc without myelopathy 06911209 M51.26 [id number] Alf Posada MD PAIN OFFICE [address] [facility] [place] [address] 02/16/2021 08:44:41 02/16/2021 10:52:14 Spinal stenosis of lumbar region 49709536 M48.061 Lumbosacra l spondylosis without myelopathy 90172171 M47.817 Lumbosacra l radiculitis 21506182 M54.17 Displaceme nt of lumbar intervertebral disc without myelopathy 44484402 M51.26 [id number] Alf Posada MD PAIN OFFICE [address] [place] [address] 04/11/2021 13:21:59 04/11/2021 14:01:08 Spinal stenosis of lumbar region 90035214 M48.061 Inflammati on of joint of shoulder region 319839817 M13.819 Lumbosacra l spondylosis without myelopathy 31258373 M47.817 Lumbosacra l radiculitis 66238514 M54.17 Displaceme nt of lumbar intervertebral disc without myelopathy 60529083 M51.26 [id number] Alf Posada MD PAIN OFFICE [address] [place] [address] 06/26/2021 15:22:32 06/30/2021 10:03:11 Spinal stenosis of lumbar region 83706335 M48.061 Lumbosacra l spondylosis without myelopathy 87568855 M47.817 Lumbosacra l radiculitis 66361688 M54.17 Displaceme nt of lumbar intervertebral disc without myelopathy 16249708 M51.26 [id number] Alf Posada MD PAIN OFFICE [address] [place] [address] 07/11/2021 12:54:52 07/11/2021 13:38:15 Spinal stenosis of lumbar region 81019908 M48.061 Inflammati on of joint of shoulder region 005379327 M13.819 Lumbosacra l spondylosis without myelopathy 36447748 M47.817 Lumbosacra l radiculitis 77824740 M54.17 Displaceme nt of lumbar intervertebral disc without myelopathy 44907564 M51.26 [id number] Alf Posada MD [facility] [address] [facility] [place] [address] 10/04/2021 10:46:49 10/04/2021 12:00:47 Spinal stenosis of lumbar region 17021259 M48.061 Inflammati on of joint of shoulder region 656295587 M13.819 Lumbosacra l spondylosis without myelopathy 09019554 M47.817 Lumbosacra l radiculitis 84366052 M54.17 Displaceme nt of lumbar intervertebral disc without myelopathy 42919002 M51.26 [id number] Alf Posada MD PAIN OFFICE [address] [facility] [place] [address] 12/12/2021 11:17:23 12/12/2021 14:28:00 Spinal stenosis of lumbar region 90700416 M48.061 Inflammati on of joint of shoulder region 726128557 M13.819 Lumbosacra l spondylosis without myelopathy 23802131 M47.817 Lumbosacra l radiculitis 28683801 M54.17 Displaceme nt of lumbar intervertebral disc without myelopathy 27213285 M51.26 [id number] Alf Posada MD PAIN OFFICE [address] [facility] [place] [address] 08/21/2022 10:05:44 08/21/2022 11:05:40 Spinal stenosis of lumbar region 51584015 M48.061 Inflammati on of joint of shoulder region 272330088 M13.819 Lumbosacra l spondylosis without myelopathy 41994137 M47.817 Lumbosacra l radiculitis 03227901 M54.17 Displaceme nt of lumbar intervertebral disc without myelopathy 26795401 M51.26 Degenerati on of lumbar intervertebral disc 38078349 M51.36 Health Concerns Section Related Observation LastModified by Organization Detai ls LastModified Time None Recorded Concern Status LastModified by Organization Details LastModified Time None Recorded Advance Directives Directive None Recorded Payers Encounter Date Sequence Insurance Name Policy Number Policy Anders Covered Member ID Anders Member ID Guarantor Name 06/26/2021 1 [place] [facility] Shreya M Gravel [id number] Shreya Gravel 06/26/2021 2 [place] [id number] Shreya Gravel [id number] Shreya Gravel 07/11/2021 1 [place] Shreya M Gravel [id number] Shreya Gravel 07/11/2021 2 [place] [id number] Shreya Gravel [id number] Shreya Gravel 10/04/2021 1 [place] Shreya M Gravel [id number] Shreya Gravel 10/04/2021 2 [place] [id number] Shreya Gravel [id number] Shreya Gravel 12/12/2021 1 [place] Shreya M Gravel [id number] Shreya Gravel 12/12/2021 2 [place] [id number] Shreya Gravel [id number] Shreya Gravel 08/21/2022 1 [place] Shreya M Gravel [id number] Shreya Gravel 08/21/2022 2 [place] [id number] Shreya Gravel [id number] Shreya Gravel Notes Date Note Type [...] bladder or bowel incontinence. Alf Posada MD [address] [place] [address] , [address], [place], [address], [place] [facility] 07/10/2021 08:52:57 07/11/2021 text/html She is here for a lumbar epidural steroid injection under fluoroscopic guidance. Alf Posada MD [address] [facility] , [address], [place], [address], [facility] - Pain Management 07/12/2021 09:01:37 10/04/2021 text/html She is here for a lumbar epidural steroid injection under fluoroscopic guidance. Alf Posada MD [address] [facility] , [address], [place], [address], [place] [facility] 10/04/2021 12:48:56 12/12/2021 text/html She is here for a lumbar epidural steroid injection under fluoroscopic guidance. Alf Posada MD [address] [facility] , [address], [place], [address], [place] [facility] 12/12/2021 16:13:18 08/21/2022 text/html She is here for a lumbar epidural steroid injection under fluoroscopic guidance. She has stopped eliquis and pletal as instructed for the procedure. Alf Posada MD [address] , [address], [place], [address], [place] [facility] 08/22/2022 08:44:58 OBGyn Episode No OBEpisode recorded.
--- OUTSIDE RECORDS SUMMARY | 2024-11-30 15:35 | XMS_ITS | Continuity of Care Document ---
Author Organization [facility], [facility] Address [address] [place] [address] Care Team Providers Care Returned Goods Sorter Name Role Phone DARRIN STYLES 3RD FLOOR OTHER Assessment No assessment recorded. Plan of Treatment Reminders Order Date Submit [...] and Address Organization Details Recorded Time Cystitis 82143434 Active 2023 FRIEDA ANDERSON [address], [address], [place], [address], [facility] 4 14:00:02 Falls 271830576 Active 2023 FRIEDA ANDERSON [address], [address], [place], [address], [facility] 4 14:00:38 Pain of right wrist 8556727923657 00 Active 2023 FRIEDA ANDERSON [address], [address], [place], [address], [facility] 4 14:00:56 Peripheral venous insufficien cy 16475277 Active 2023 FRIEDA ANDERSON [address], [address], [place], [address], [facility] 4 14:01:26 Chronic diastolic heart failure 847993076 Active 2023 FRIEDA ANDERSON [address], [address], [place], [address], [facility] 4 14:01:46 Type 2 diabetes mellitus 64366356 Active 2023 FRIED[address] ANDERSON [address], [address], [place], [address], [facility] 4 14:01:55 Paroxysmal atrial flutter 338822583 Active 2023 FRIED[address] ANDERSON [address], [address], [place], [address], [facility] 4 14:02:21 Restless legs 78586832 Active 2023 FRIEDA ANDERSON [address], [place], [address], [facility] 4 14:02:38 Chronic obstructive pulmonary disease 43598126 Active 2023 FRIEDA ANDERSON [address], [place], [address], [facility] 4 14:02:49 Anemia of chronic disease 294227985 Active 2023 FRIEDA ANDERSON [address], [address], [place], [address], [facility] 4 14:02:59 Mixed anxiety and depressive disorder 531462140 Active 2023 FRIEDA ANDERSON [address], [place], [address], [facility] 4 14:17:43 Chronic kidney disease 128672428 Active 2023 FRIEDA ANDERSON [address], [address], [place], [address], [facility] 4 14:19:41 Hyperlipide nena 01939239 Active 2023 FRIEDA ANDERSON [address], [address], [place], [address], [facility] 4 14:26:52 Gastroesoph ageal reflux disease 773342011 Active 2023 FRIEDA ANDERSON [address] [facility], [address], [place], [address], [facility] 4 14:27:49 Chronic back pain 227954222 Active 2023 CARLTONJOEY MINA RANCH HELPER [address], [place], [address], [facility] 4 14:40:47 Vitamin D deficiency 08181902 Active 2023 MP ANDERSONP [address] [facility], [address], [place], [address], [facility] 4 19:41:46 Bradycardia 69473240 Active [address], [address], [place], [address], [facility] 4 19:44:32 Asthenia 08944426 Active [address], [address], [place], [address], [facility] 4 19:53:05 Bleeding from nose 620376013 Active [address], [address], [place], [address], [facility] 4 15:36:07 Osteomyelit is 22099599 Active 2023 Naomi Todd MD [address] [place] [address], [address], [place], [address], [facility] 4 17:53:51 Headache 55406351 Active 2023 WISAM SILVA NP [address] [facility], [address], [place], [address], [facility] 4 09:49:14 Problem Notes None recorded. Medical Equipment None Reported. Allergies Allergen ID Allergen Name Allergen Category Reaction Reaction Severity Criticality Documentation Date Start Date Code Code System Note Provider Name and Address Organization Details Recorded Time 64829 lisinopri l medicatio n Not available Not available Not available 10/22/2023 44122 RxNorm Not Available Not Available Not Available [...] Avai lable Vitals Date Recorded Body height Systolic blood pressure Diastolic blood pressure Provider Name and Address Organization Details Last Updated DateTime 11/25/2024 165.1 cm 129 mm[Hg] 73 mm[Hg] Rex Bass MD [address] [facility], [address], [place], [address], [facility] 11/25/2024 11:53:24 Social History Question Answer Notes LastModified by Organizat ion Details LastModified Time Tobacco Smoking Status Former Smoker quit 30 yrs ago FRIEDA ANDERSON [address] [facility], [address], [place], [address], [facility] 10/24/2023 14:39:11 Do You Have An [...] not available 10/24/2023 Where Do You Live? [facility], Had Been Living At [facility] Information not available 04/13/2024 Legal Guardian? No Informati on not available 10/24/2023 Do You Have A Medical Power Of Fundraising Assistant? Yes Information not available 10/24/2023 What Was [...] Immunizations Vaccine Type Date Status Note Provider Nam e and Address Organization Details Recorded Time Tdap 2 completed Flor Luna [facility] 12/27/2023 11:11:29 Pneumococcal conjugate PCV 13 7 completed Flor Luna [facility] 12/27/2023 11:11:41 Influenza, adjuvanted, quadrivalent, PF 3 completed Flor Luna [facility] 12/27/2023 11:11:59 COVID-19, mRNA, LNP-S, bivalent, PF, 30 mcg/0.3 mL dose 1 [facility] 11:12:12 COVID-19, mRNA, LNP-S, bivalent, PF, 30 mcg/0.3 mL dose 1 [facility]/27/2023 11:12:20 COVID-19, mRNA, LNP-S, bivalent, PF, 30 mcg/0.3 mL dose 1 [facility]/27/2023 11:12:29 COVID-19, mRNA, LNP-S, bivalent, PF, 30 mcg/0.3 mL dose 2 completed Flor fountain [facility] 12/27/2023 11:12:48 Past Encounters Encounter ID Performer Location Encounter Start Date Encounter Closed Date Diagnosis/Indication Diagnosis SNOMED-CT Code Diagnosis ICD10 Code Diagnosis Note [id number] Rex Bass MD [address] [place] [address] 11/25/2024 11:52:19 11/26/2024 15:26:27 Acute low back pain 390479928 M54.59 acute on chronic low back pain with point tenderness lumbar spinex ray to eval for concern vert comp fxx ray left hipchange tramadol 50 mg to q 6 prnmonitor need for ortho eval Chronic di astolic heart failure 780720703 I50.32 euvolemic- she denies any chest pain or shortness of breathweig ht stableCont inue furosemide 20 mg qdMonitor resp. status, fluid status, wts and labs. Chronic ob structive pulmonary disease 86288016 J43.8 monitor respirator y status and albuterol utilizatio n Gastroesop hageal reflux disease 527386384 K21.9 protonix 40 mg qdmonitor sx control Health Concerns Section Related Observation LastModified by Organization Detai ls LastModified Time None Recorded Concern Status LastModified by Organization Details LastModified Time None Recorded Payers Encounter Date Sequence Insurance Name Policy Number Policy Anders Covered Member ID Anders Member ID Guarantor Name 11/25/2024 1 [place] [employer] Shreya M Gravel [id number] Shreya Gravel 11/25/2024 2 [place] [id number] Shreya Gravel [id number] Shreya Gravel Notes Date Note Type Note Provider Name and Address Organization Details Recorded Time 11/25/2024 text/html Patient is a 89 yo female resident due for routine rounding also seen for acute rounding with complaint of chronic pain. PMH chf, a flutter, gerd, anemia, copd, chronic pain Rex Bass MD [address] [facility], [address], [place], [address], [facility] 11/25/2024 12:03:07 OBGyn Episode No OBEpisode recorded.
--- OUTSIDE RECORDS SUMMARY | 2024-11-30 15:36 | XMS_ITS ---
Author Organization [facility] Address [address] [place] [address] Care Team Providers Care Senior Receptionist Name Role Phone Rex Bass MD Primary Care Provider Unavailab Lu Dickson Unavailable [phone] REASON FOR VISIT reference tel enc 06/09/24 Encounters Encounter Location Date Provider Diagnosis [facility] [address] [place] [address] 06/10/2024 Lu Black Plan Of Treatment No Information Progress Notes * Shreya BAUTISTADOB: [birth year] (88 yo F)Acc No.[id number]:06/10/2024 Patient:?Shreya Bautista :1935???Age:88 Y???Sex:Female Address:[address], [address], [place], [address] * true * Date:? Generated for Millie keenan/Cory/eTransmitting on:?11/30/2024 03:36 PM EST
--- OUTSIDE RECORDS SUMMARY | 2024-11-30 15:36 | XMS_ITS ---
Author Organization [facility] Address [address] [place] [address] Care Team Providers Care General Helper Name Role Phone Shelia DIAZ, Rex Primary Care Provider Unavailab Lu Dickson Unavailable [phone] REASON FOR VISIT Needs call back from MD Encounters Encounter Location Date Provider Diagnosis [facility] [address] [place] [address] 06/09/2024 Lu Black Plan Of Treatment No Information Progress Notes * Shreya BAUTISTADOB: 6 (88 yo F)Acc No.[id number]:06/09/2024 Patient:?Shreya Bautista :1935???Age:88 Y???Sex:Female Address:[address], [address], [place], [address] * true * Date:? Generated for Haydei ree/Cory/eTransmitting on:?11/30/2024 03:36 PM EST
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
--- OUTSIDE RECORDS SUMMARY | 2024-11-30 15:37 | XMS_ITS | Data Portability ---
Author Organization [facility] [employer] , Main Office Address [address], [address] [place] [address] Care Team Providers Care Commercial Account Executive Name Role Phone DARRIN STYLES 3RD FLOOR OTHER Assessment Encounter Date Assessment Date Assessment LastModified by Organization Details LastModified Time 09/10/2024 09/10/2024 labs ordered for 09/14 Not [...] and Address Organization Details Recorded Time Cystitis 14438762 Active 2023 FRIEDA ANDERSON [address] [facility], [address], [place], [address] , [facility] [employer] 14:00:02 Falls 720067343 Active 2023 FRIEDA ANDERSON [address], [address], [place], [address], [facility] 4 14:00:38 Pain of right wrist 2447142155219 00 Active 2023 FRIEDA ANDERSON [address], [address], [place], [address], [place] - [facility] 4 14:00:56 Peripheral venous insufficien cy 29256335 Active 2023 FRIEDA ANDERSON [address], [address], [place], [address], [place] - [facility] 4 14:01:26 Chronic diastolic heart failure 147438640 Active 2023 FRIEDA ANDERSON [address], [place], [address], [place] - [facility] 4 14:01:46 Type 2 diabetes mellitus 78922146 Active 2023 FRIEDA ANDERSON [address] [facility], [address], [place], [address], [place] - [facility] 4 14:01:55 Paroxysmal atrial flutter 192142825 Active 2023 FRIEDA ANDERSON [address], [place], [address], [facility] 4 14:02:21 Restless legs 26617858 Active 2023 FRIEDA ANDERSON [address] [facility], [address], [place], [address], [facility] 4 14:02:38 Chronic obstructive pulmonary disease 01644018 Active 2023 FRIEDA ANDERSON [address], [address], [place], [address], [place] - [facility] 4 14:02:49 Anemia of chronic disease 522397188 Active 2023 FRIEDA ANDERSON [address], [place], [address], [place] [facility] 4 14:02:59 Mixed anxiety and depressive disorder 106651001 Active 2023 CARLTONJOEY MINA, BANK PRESIDENT [address], [place], [address], [facility] 4 14:17:43 Chronic kidney disease 336092588 Active 2023 CARLTONJOEY MINA, [facility] [address], [place], [address], [facility] 4 14:19:41 Hyperlipide nena 09262199 Active 2023 CARLTONJOEY MINA, [facility] [address], [place], [address], [facility] 4 14:26:52 Gastroesoph ageal reflux disease 107202265 Active 2023 CARLTON MINA, BANK PRESIDENT [address], [place], [address], [facility] 4 14:27:49 Chronic back pain 241959355 Active 2023 CARLTONJOEY MINA, [facility] [address], [place], [address], [facility] 4 14:40:47 Vitamin D deficiency 76918042 Active 2023 CARLTONJOEY MINA, [facility] [address], [place], [address], [facility] 4 19:41:46 Bradycardia 24410097 Active 2023 CARLTON MINA, [facility] [address], [place], [address], [facility] 4 19:44:32 Asthenia 34666195 Active 2023 CARLTONJOEY MINA, [facility] [address], [place], [address], [facility] 4 19:53:05 Bleeding from nose 068663218 Active 2023 CARLTON MINA, [facility] [address], [place], [address], [facility] [employer] 4 15:36:07 Osteomyelit is 76880941 Active 2023 Naomi Todd MD [address] [facility], [facility] [address], [place], [address], [facility] 4 17:53:51 Headache 69653949 Active 2023 WISAM SILVA NP [address] [facility], [facility] [address], [place], [address], [facility] [employer] 4 09:49:14 Problem Notes None recorded. Medical Equipment None Reported. Allergies Allergen ID Allergen Name Allergen Category Reaction Reaction Severity Criticality Documentation Date Start Date Code Code System Note Provider Name and Address Organization Details Recorded Time 73327 lisinopri l medicatio n Not available Not available Not available 10/22/2023 95149 RxNorm Not Available Not Available Not Available [...] Avai lable Vitals Date Recorded Body height Heart rate Respiratory rate Body temperature Oxygen saturation Oxygen saturation in Arterial blood by Pulse oximetry Systolic blood pressure Diastolic blood pressure Provider Name and Address Organization Details Last Updated DateTime 4 165.1 cm 72 /min 18 /min 97 [degF] 95 % 95 % 122 mm[Hg] 68 mm[Hg] FRIEDA ANDERSON [address] [facility], [address], [place], [address], [facility] [employer] [facility] 4 15:58:33 Date Recorded Body height Heart rate Respiratory rate Body temperature Oxygen saturation Oxygen saturation in Arterial blood by Pulse oximetry Systolic blood pressure Diastolic blood pressure Provider Name and Address Organization Details Last Updated DateTime 4 165.1 cm 74 /min 18 /min 97.2 [degF] 96 % 96 % 128 mm[Hg] 72 mm[Hg] FRIEDA ANDERSON [address] [facility], [address], [place], [address], [facility] 4 11:29:01 Date Recorded Body height Oxygen saturation Oxygen saturation in Arterial blood by Pulse oximetry Body temperature Respiratory rate Provider Name and Address Organization Details Last Updated DateTime 4 165.1 cm 97 % 97 % 97.9 [degF] 18 /min FRIEDA ANDERSON [address] [facility], [address], [place], [address], [facility] 4 11:22:24 Date Recorded Body height Heart rate Respiratory rate Oxygen saturation Oxygen saturation in Arterial blood by Pulse oximetry Provider Name and Address Organization Details Last Updated DateTime 4 165.1 cm 70 /min 16 /min 96 % 96 % FRIEDA ANDERSON [address] [facility], [address], [place], [address], [facility] 4 16:00:47 Date Recorded Body height Systolic blood pressure Diastolic blood pressure Provider Name and Address Organization Details Last Updated DateTime 11/25/2024 165.1 cm 129 mm[Hg] 73 mm[Hg] Rex Bass MD [address] [facility], [address], [place], [address], [facility] 11/25/2024 11:53:24 Social History Question Answer Notes LastModified by Organizat ion Details LastModified Time Tobacco Smoking Status Former Smoker quit 30 yrs ago FRIEDA ANDERSON [address] [facility], [address], [place], [address], [facility] 10/24/2023 14:39:11 Do You Have An [...] 10/24/2023 What Is Your Code Status? DNR/DNI [facility] Information not available 10/24/2023 Where Do You Live? Nursinghome Now LTC At [facility], Had Been Living At [facility] Information not available 04/13/2024 Legal Guardian? 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 Yes Information not available 10/24/2023 What Was [...] Details Recorded Time [facility] 2 [facility] 11:11:29 Pneumococcal conjugate PCV 13 7 [facility] 12/27/2023 11:11:41 Influenza, adjuvanted, quadrivalent, PF 3 completed [facility] 12/27/2023 11:11:59 COVID-19, mRNA, LNP-S, bivalent, PF, 30 mcg/0.3 mL dose 1 completed [facility] 12/27/2023 11:12:12 COVID-19, mRNA, LNP-S, bivalent, PF, 30 mcg/0.3 mL dose 1 completed [facility], [facility] 12/27/2023 11:12:20 COVID-19, mRNA, LNP-S, bivalent, PF, 30 mcg/0.3 mL dose 1 completed [facility], [facility] 12/27/2023 11:12:29 COVID-19, mRNA, LNP-S, bivalent, PF, 30 mcg/0.3 mL dose 2 completed [facility], [facility] 12/27/2023 11:12:48 Past Encounters Encounter ID Performer Location Encounter Start Date Encounter Closed Date Diagnosis/Indication Diagnosis SNOMED-CT Code Diagnosis ICD10 Code Diagnosis Note [id number] FRIEDA ANDERSON [address] [facility] [facility] [address] [place] [address] 10/23/2023 08:21:08 10/28/2023 15:39:59 Cystitis 04552349 N30.90 With MDROInitia lly with Vanco and cefepime however cultures growing MDRO Klebsiella Started meropenem 1 g q12 for 7 days.start ed 10/19 for 7 full days of treatment to end 10/26.probi otic added Falls 927163285 R29.6 likely multifacto rial from neuropathy , frailty, arthritis and LE edemaCT negative for any fractures. CT Head/Brain W/O Contrast negativeIn itiated safety precaution per facility protocolPT /OT eval and tx. Peripheral venous insufficiency 14487906 I87.2 Venous insufficie ncy of both lower extremitie sDoppler LLE no DVT, symmetric erythema without increased warmth or tenderness , appears similar to previous picture taken, low suspicion for superimpos ed cellulitis Chronic di astolic heart failure 955497302 I50.32 preserved EFeuvolemi ctorsemide held in acute care d/t hypotensio n and bradycardi c 50'smonito r BP and need to restartmon itor weights Chronic ob structive pulmonary disease 74469918 J44.9 Albuterol Sulfate Nebulizati on Solution (2.5 MG/3ML) Q6 prnAdvair Zqiurt609- 50 mcg Q12 Restless legs 96735186 G 25.81 ROPINIRole HCl Tablet 2 MG BID Type 2 jr betes mellitus 93947041 E11.21 continue monitor glucose,Li spro SSI coverageGa bapentin Capsule 300 MG at bedtime for neuropathy pain.trama dol 25 mg q12 prn Paroxysmal atrial flutter 246089478 I48.92 not on anticoagAm iodarone HCl Tablet 200 MG dailymonit or HR Mixed anxi ety and depressive disorder 620417872 F41.8 Escitalopr am Oxalate Tablet 30 mg dailymonit or for mood and behavorial changes. Anemia of chronic disease 149269045 D63.8 Ferrous Sulfate Tablet 325 dailymonit or labs prn Hyperlipidemia 87353932 E78.5 Atorvastat in 20 mg dailymonit or labs Gastroesop hageal reflux disease 302449659 K21.9 Pantoprazo le40 mg dailymonit or for gi upset. Chronic back pain 498131 002 G89.29 tramadol 25 mg Q12 prngabapen tin 300 mg at hs Vitamin D deficiency 347 79336 E55.9 Cholecalci ferol 2000 UNIT daily Pain of right wrist 3169 947940 91203 M25.531 x-ray was ordered which was negative.P T/OT eval and tx Bradycardia 56666273 R00 .1 in acute care HR as low as 40snormal [place]/QRS/QTc prolongati on..T nonspecifi c isolated T wave inversions on single lead V2 were present on recent study from 07/19/2023 . No evidence of acute ischemic changes. Chronic ki dney disease 640477917 N18.9 Renal function is at baselinemo nitor labsavoid nephrotoxi c drugs Asthenia 12718191 R53.1 hx of multiple fallsambul ates with walkerPT/O T eval and treat [id number] MD DARRIN Perry JENSEN [address] [place] [address] [place] [address] 10/24/2023 16:17:28 11/06/2023 11:12:59 Cystitis 99660967 N30.00 Continue meropenem 1 g q 12 hrs to complete 7 d course on 10/26.Monit or for recurrent sxs. Falls 864904557 R29.6 Likely multifacto rial from neuropathy , frailty, arthritis and LE edemaVery deconditio christoph.Needs PT/OT for strengthen ing, balance, gait training, safety and function.C ontinue fall precaution s.Monitor for safety. Peripheral venous insufficiency 66467486 I87.2 Almost at baseline per pt.Continu e local care and elevation. Chronic di astolic heart failure 759545801 I50.32 Appears euvolemic. Monitor for need for diuretics. Monitor resp. status, fluid status, wts and labs. Chronic ob structive pulmonary disease 89284431 J43.8 No current sxs.Contin ue Advair 250/50 BID and albuterol nebs q 6 hrs prnMonitor resp status. Restless legs 69926128 G 25.81 Continue ropinirole 2 mg BIDMonitor sxs. Type 2 jr betes mellitus 12048734 E11.21 Diet controlled .Sugar <150 yest, not checked previously .Continue gabapentin 300 MG qhs and tramadol q 12 hrs prn for neuropathy Monitor fingerstic ks BID x 1 wk with SSI, d/c if not needing coverage. Paroxysmal atrial flutter 527247192 I48.92 Rate in good control on amiodarone 200 mg qdNot on AC due to age and fall riskMonito r HR Mixed anxi ety and depressive disorder 389044077 F41.8 Mood down today due to concerns about living situation. Continue escitalopr am 30 mg qdMonitor mood.Consu lt psych prn Anemia of chronic disease 478736028 D63.8 Continue FeSO4 325 mg qd with vitamin C 250 mg qd for absorption .Monitor labs Hyperlipidemia 30118225 E78.49 Continue atorvastat in 20 mg qdMonitor labs yearly Gastroesop hageal reflux disease 477488427 K21.9 No current sxs.Contin ue pantoprazo le 40 mg qdMonitor sxs Chronic ki dney disease 456822986 N18.9 In hx, but renal function WNL yest.Cindy nue to avoid nephrotoxi c meds as able.Monit or labs.Renal consult prn. Chronic back pain 566664 002 G89.29 Continue tramadol 25 mg q 12 hrs prn and gabapentin 300 mg qhsMonitor sxs. [id number] FRIEDA ANDERSON [address] [place] [address] rd [place] [address] 10/29/2023 07:42:54 11/01/2023 08:26:34 Cystitis 83746852 N30.90 With MDROInitia lly with Vanco and cefepime however cultures growing MDRO Klebsiella Started meropenem 1 g q12 for 7 days.start ed 10/19 for 7 full days of treatment to end 10/26.- completed denies any dysuriapro biotic added Falls 733378454 R29.6 continue to work with PT/OT for strengthen inglikely multifacto rial from neuropathy , frailty, arthritis and LE edemaCT negative for any fractures. CT Head/Brain W/O Contrast negativeIn itiated safety precaution per facility protocol Peripheral venous insufficiency 78705866 I87.2 BLE edema left greater than right Venous insufficie ncy of both lower extremitie sDoppler LLE no DVT, symmetric erythema without increased warmth or tenderness , appears similar to previous picture taken, low suspicion for superimpos ed cellulitis Chronic di astolic heart failure 746609242 I50.32 preserved EFeuvolemi ctorsemide held in acute care d/t hypotensio n and bradycardi c 50'smonito r BP and need to restartmon itor weights Chronic ob structive pulmonary disease 55177916 J44.9 Albuterol Sulfate Nebulizati on Solution (2.5 MG/3ML) Q6 prnAdvair Dcwfdx743- 50 mcg Q12 Restless legs 19364389 G 25.81 ROPINIRole HCl Tablet 2 MG BID Type 2 jr betes mellitus 96559483 E11.21 continue monitor glucose,Li spro SSI coverageGa bapentin Capsule 300 MG at bedtime for neuropathy pain.trama dol 25 mg q12 prn Paroxysmal atrial flutter 312530689 I48.92 not on anticoagAm iodarone HCl Tablet 200 MG dailymonit or HR Mixed anxi ety and depressive disorder 894170221 F41.8 Escitalopr am Oxalate Tablet 30 mg dailymonit or for mood and behavorial changes. Anemia of chronic disease 130795363 D63.8 Ferrous Sulfate Tablet 325 dailymonit or labs prn Hyperlipidemia 25833584 E78.5 Atorvastat in 20 mg dailymonit or labs Gastroesop hageal reflux disease 601648641 K21.9 Pantoprazo le40 mg dailymonit or for gi upset. Chronic back pain 754760 002 G89.29 tramadol 25 mg Q12 prngabapen tin 300 mg at hs Vitamin D deficiency 347 01549 E55.9 Cholecalci ferol 2000 UNIT daily Pain of right wrist 3169 703693 12058 M25.531 x-ray was ordered which was negative.P T/OT eval and tx Bradycardia 77456252 R00 .1 in acute care HR as low as 40snormal [place]/QRS/QTc prolongati on..T nonspecifi c isolated T wave inversions on single lead V2 were present on recent study from 07/19/2023 . No evidence of acute ischemic changes. Chronic ki dney disease 467438167 N18.9 Renal function is at baselinemo nitor labsavoid nephrotoxi c drugs Asthenia 47839394 R53.1 hx of multiple fallsambul ates with walkerPT/O T eval and treat [id number] FRIEDA ANDERSON [address] [address] 11/01/2023 08:04:11 11/06/2023 11:37:03 Cystitis 28753215 N30.90 With MDROInitia lly with Vanco and cefepime however cultures growing MDRO Klebsiella Started meropenem 1 g q12 for 7 days.start ed 10/19 for 7 full days of treatment to end 10/26.- completed denies any dysuriapro biotic added Pruritus of vagina 52386 003 L29.3 Reports vaginal itchiness for over [...] BID for 7 days and re eval. [id number] FRIEDA ANDERSON [address] [place] [address] 11/04/2023 12:13:42 11/06/2023 12:50:39 Falls 597494132 R29.6 see/HPiwit nessed fallwith injury/lac eration above left eye.no LOC Facial laceration 491277 008 S01.81XA above left eye/about 2 cm in lengthblee ding controlled , wrapped in gauze dressing. [id number] FRIEDA ANDERSON [address] [address] 11/06/2023 09:19:58 11/13/2023 12:17:34 Falls 894283217 R29.6 see/HPiwit nessed fallwith injury/lac eration above left eye.no LOCContinu e PT/OT Facial laceration 282889 008 S01.81XA above left eye/about 2 cm in lengthappe ars to be about 10-12 small dissolvabl e sutures in placedenie s any visual changes or headache.n ursing to monitor healing Pruritus of vagina 95567 003 L29.3 Reports vaginal itchiness for over [...] days and re eval. Chronic back pain 966636 002 G89.29 denies any new discomfort post falltramad ol 25 mg Q12 prngabapen tin 300 mg at hs Asthenia 13301660 R53.1 hx of multiple fallsambul ates with walkerPT/O T continue [id number] FRIEDA ANDERSON [address] [address] 11/08/2023 13:54:21 11/13/2023 13:10:32 Falls 754436709 R29.6 on 11/04/23wit nessed fallwith injury/lac eration above left eye.no LOCContinu e PT/OT Facial laceration 350004 008 S01.81XA above left eye/about 2 cm in lengthappe ars to be about 10-12 small di-solvabl e sutures in placedenie s any visual changes or headache.n ursing to monitor healing Pruritus of vagina 27167 003 L29.3 Reports vaginal itchiness for over [...] assure med is applied. Chronic back pain 184992 002 G89.29 denies any new discomfort post falltramad ol 25 mg Q12 prngabapen tin 300 mg at hs Asthenia 80969724 R53.1 hx of multiple fallsambul ates with walkerPT/O T continue [id number] FRIEDA ANDERSON [address] [address] 11/13/2023 10:59:21 11/15/2023 09:29:54 Falls 752937541 R29.6 on 11/04/23wit nessed fallwith injury/lac eration above left eye.no LOCContinu e PT/OT Facial laceration 308947 008 S01.81XA healingabo ve left eye/about 2 cm in lengthappe ars to be about 10-12 small di-solvabl e sutures in placedenie s any visual changes or headache.n ursing to monitor healing Pruritus of vagina 18495 003 L29.3 improving, continues with triamcinol one topical cream BID Chronic back pain 775058 002 G89.29 denies any new discomfort post falltramad ol 25 mg Q12 prngabapen tin 300 mg at hs Asthenia 87591967 R53.1 hx of multiple fallsambul ates with walkerPT/O T continues [id number] FRIEDA ANDERSON [address] [address] 11/18/2023 07:58:48 11/21/2023 13:26:13 Falls 904806727 R29.6 on 11/04/23wit nessed fallwith injury/lac eration above left eye.no LOCContinu e PT/OT Facial laceration 601319 008 S01.81XA healingabo ve left eye/about 2 cm in lengthappe ars to be about 10-12 small di-solvabl e sutures in placedenie s any visual changes or headache.n ursing to monitor healing Pruritus of vagina 71869 003 L29.3 improving, continues with triamcinol one topical cream BID Chronic back pain 845640 002 G89.29 denies any new discomfort post falltramad ol 25 mg Q12 prngabapen tin 300 mg at hs Asthenia 95919196 R53.1 hx of multiple fallsambul ates with walkerPT/O T continues [id number] CARLTON MINA[address] [address] 11/21/2023 13:49:57 11/25/2023 12:31:48 Falls 598222061 R29.6 on 11/04/23wit nessed fallwith injury/lac eration above left eye.no LOCContinu e PT/OT Facial laceration 763914 008 S01.81XA 11/04 s/p fall for laceration above left eye.healin g no s/sx of infectiona rolan left eye/about 2 cm in lengthappe ars to be about 10-12 small di-solvabl e sutures in placedenie s any visual changes or headache.n ursing to monitor healing Pruritus of vagina 81965 003 L29.3 improving, continues with triamcinol one topical cream BID Chronic back pain 312869 002 G89.29 denies any new discomfort post falltramad ol 25 mg Q12 prngabapen tin 300 mg at hs Asthenia 79130429 R53.1 hx of multiple fallsambul ates with walkerPT/O T continues [id number] CARLTON GONG[address] [address] 11/26/2023 07:45:18 11/28/2023 10:55:36 Falls 793219797 R29.6 on 11/04/23wit nessed fallwith injury/lac eration above left eye.no LOCContinu e PT/OT Facial laceration 117863 008 S01.81XA 11/04 s/p fall for laceration above left eye.healin g no s/sx of infectiona rolan left eye/about 2 cm in lengthappe ars to be about 10-12 small di-solvabl e sutures in placedenie s any visual changes or headache.n ursing to monitor healing Pruritus of vagina 00228 003 L29.3 triamcinol one topical cream BIDkeep area clean and dry. Chronic back pain 725463 002 G89.29 tramadol 25 mg Q12 prngabapen tin 300 mg at hs Asthenia 46680920 R53.1 hx of multiple fallsambul ates with walkerPT/O T continues [id number] FRIEDA ANDERSON [address] [address] 11/29/2023 08:06:37 12/03/2023 11:20:10 Falls 406415256 R29.6 on 11/04/23wit nessed fallwith injury/lac eration above left eye.no LOCContinu e PT/OT Facial laceration 372577 008 S01.81XA healed11/04 s/p fall for laceration above left eye.above left eye/about 2 cm in lengthdeni es any visual changes or headache. Pruritus of vagina 36798 003 L29.3 triamcinol one topical cream BIDkeep area clean and dry. Chronic back pain 528707 002 G89.29 tramadol 25 mg Q12 prngabapen tin 300 mg at hs Asthenia 14776045 R53.1 hx of multiple fallsambul ates with walkerPT/O T continues [id number] FRIEDA ANDERSON [address] [address] 12/04/2023 07:53:49 12/10/2023 10:21:37 Falls 199268320 R29.6 on 11/04/23wit nessed fallwith injury/lac eration above left eye.no LOCContinu e PT/OT Facial laceration 023907 008 S01.81XA healed11/04 s/p fall for laceration above left eye.above left eye/about 2 cm in lengthdeni es any visual changes or headache. Pruritus of vagina 84691 003 L29.3 triamcinol one topical cream BIDkeep area clean and dry. Chronic back pain 425581 002 G89.29 tramadol 25 mg Q12 prngabapen tin 300 mg at hs Asthenia 65299792 R53.1 hx of multiple fallsambul ates with walkerPT/O T continues Cellulitis of right lower limb 4743758764 2813597 L03.115 see hpistarted keflex on 11/30/23 for 7 days with probiotic for 10 daysencour aged to elevated lower extremitie s to elevate edemamonit or for resolution [id number] FRIEDA ANDERSON [address] [address] 12/11/2023 10:06:59 12/13/2023 13:01:47 Falls 718992913 R29.6 no recent falls reported Facial laceration 210388 008 S01.81XA healed11/04 s/p fall for laceration above left eye.above left eye/about 2 cm in lengthdeni es any visual changes or headache. Pruritus of vagina 95470 003 L29.3 triamcinol one topical cream BIDkeep area clean and dry. Chronic back pain 856046 002 G89.29 tramadol 25 mg Q12 prngabapen tin 300 mg at hs Cellulitis of right lower limb [id number] 2645407 L03.115 resolved. [id number] FRIEDA ANDERSON [address] [address] 12/18/2023 09:20:38 12/20/2023 14:10:33 Chronic diastolic heart failure 023443506 I50.32 preserved EFeuvolemi ctorsemide held in acute care d/t hypotensio n and bradycardi c 50'smonito r BP and need to restartmon itor weights Mixed anxi ety and depressive disorder 775535833 F41.8 stable and pleasantEs citalopram Oxalate Tablet 30 mg dailymonit or for mood and behavorial changes. Type 2 jr betes mellitus 77961736 E11.21 continue monitor glucose,Li spro SSI coverageGa bapentin Capsule 300 MG at bedtime for neuropathy pain.trama dol 25 mg q12 prn [id number] FRIEDA ANDERSON [address] [address] 12/25/2023 11:16:29 12/30/2023 16:09:32 Chronic diastolic heart failure 018462240 I50.32 preserved EFBLE +1was on torsemide but was d/c in acute caremonito r weights- [facility] obtain current weight Mixed anxi ety and depressive disorder 258718585 F41.8 stable and pleasantEs citalopram Oxalate Tablet 30 mg dailymonit or for mood and behavorial changes. Type 2 jr betes mellitus 50192992 E11.21 continue monitor glucose,Li spro SSI coverageGa bapentin Capsule 300 MG at bedtime for neuropathy pain.trama dol 25 mg q12 prn [id number] Naomi Todd MD [address] [place] [phone] 12/26/2023 19:19:22 01/31/2024 14:21:17 Cystitis 50414580 N30.00 Completed course of meropenem 1 g q 12 hrs on 10/26.Monit or for recurrent sxs. Falls [id number] R29.6 Continues to be a high fall risk and needs CG and sometimes an assist for transfers. No longer getting acute PT/OT services, restart as able.Cindy nue fall precaution s.Monitor for safety. Peripheral venous insufficiency 57924639 I87.2 No current sxs.Contin ue local care and elevation. Chronic di astolic heart failure 966022361 I50.32 Appears euvolemic. Monitor for need for diuretics. Monitor resp. status, fluid status, wts and labs. Chronic ob structive pulmonary disease 16781918 J43.8 Continues with no sxs.Contin ue Advair 250/50 BID and albuterol nebs q 6 hrs prnMonitor resp status. Type 2 jr betes mellitus 20819296 E11.21 Sugars were all <150 when checked for 3 days.Cindy nue gabapentin 300 MG qhs and tramadol q 12 hrs prn for neuropathy Monitor fingerstic ks prn and HgA1C q 3-6 months Paroxysmal atrial flutter 631185469 I48.92 Rate remains in good control on amiodarone 200 mg qdNo AC due to age and fall riskMonito r HR Restless legs 01310609 G 25.81 Continue ropinirole 2 mg BIDMonitor sxs. Mixed anxi ety and depressive disorder 634351859 F41.8 Mood stableCont inue escitalopr am 30 mg qdMonitor mood.Consu lt psych prn Anemia of chronic disease 237339383 D63.8 Hgb has been stable.Con tinue FeSO4 325 mg qd with vitamin C 250 mg qd for absorption .Monitor labs Hyperlipidemia 45359938 E78.49 Continue atorvastat in 20 mg qdMonitor labs yearly Gastroesop hageal reflux disease 785465921 K21.9 No current sxs.Contin ue pantoprazo le 40 mg qdMonitor sxs Chronic ki dney disease 282139682 N18.1 Renal function remains WNLContinu e to avoid nephrotoxi c meds as able.Monit or labs.Renal consult prn. Chronic back pain 069658 002 G89.29 Continue tramadol 25 mg q 12 hrs prn and gabapentin 300 mg qhsMonitor sxs. 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 Type 2 jr betes mellitus 43019445 E11.21 continue monitor glucose,Li spro SSI coverageGa bapentin Capsule 300 MG at bedtime for neuropathy pain.trama dol 25 mg q12 prn Spasm 59933343 R25.2 12/31/23 nursing reported pt was having left upper leg/buttoc k pain/spasm tramadol changed from q12 to q6 and robaxin 500 mg q 6 prn addedtoday pt states that medication was effectivew ill monitor for worsening sx [id number] FRIEDA ANDERSON JENSEN [address] [place] [phone] 5 01/08/2024 13:26:41 01/10/2024 11:20:05 Chronic diastolic heart failure 632932303 I50.32 no weight gain notedconti nue furosemide 10 mg dailymonit or labs , weightsmon itor for cardiopulm onary sx Mixed anxi ety and depressive disorder 607452948 F41.8 continue Escitalopr am Oxalate Tablet 30 mg dailymonit or for mood and behavorial changes. Type 2 jr betes mellitus 20374053 E11.21 continue monitor glucose,co ntinue Lispro SSI coverageco ntinue Gabapentin Capsule 300 MG at bedtime for neuropathy pain.cindy nue tramadol 50 mg q 8 prn Spasm 34884624 R25.2 to LLE and glutealpai n has improvedRo baxin 500 mg discontinu e -it was ordered for short term use onlycontin ue tramadol 50 mg prn [id number] FRIEDA ANDERSON [address] [phone] 01/15/2024 09:55:29 01/27/2024 16:00:52 Cervical radiculopathy 11316583 M54.12 start diclofenac gel daily and q8 prncontinu e tramadol 50 mg Q6 prncontinu e gabapentin 300 mg at hs add 300 mg QDrefer to physical therapy for eval and tx [id number] FRIEDA ANDERSON [address] [phone] 01/22/2024 09:25:19 01/28/2024 11:32:54 Cervical radiculopathy 29474984 M54.12 continue diclofenac gel daily and q8 prncontinu e tramadol 50 mg Q6 prncontinu e gabapentin 300 mg at hs add 300 mg QDper therapy patient neck pain is chronic and she was previously treated and recommende d Chronic di astolic heart failure 160046932 I50.32 monitor labs , weights , edemamonit or for cardiopulm onary sxencourag ed leg elevation/ wraps as needed. Gastroesop hageal reflux disease 679543506 K21.9 Pantoprazo le40 mg dailymonit or for gi upset. Mixed anxi ety and depressive disorder 000331906 F41.8 continue Escitalopr am Oxalate Tablet 30 mg dailymonit or for mood and behavorial changes. Type 2 jr betes mellitus 56355598 E11.21 continue monitor glucose,co ntinue Lispro SSI coverageco ntinue Gabapentin Capsule 300 MG at bedtime for neuropathy pain.cindy nue tramadol 50 mg q 8 prn [id number] FRIEDA ANDERSON [address] [phone] 01/27/2024 10:53:32 02/17/2024 12:46:54 Cervical radiculopathy 70099736 M54.12 continue diclofenac gel daily and q8 prncontinu e tramadol 50 mg Q6 prncontinu e gabapentin 300 mg at hs add 300 mg QD Chronic di astolic heart failure 590819511 I50.32 monitor labs , weights , edemamonit or for cardiopulm onary sxencourag ed leg elevation/ wraps as needed. Gastroesop hageal reflux disease 646402913 K21.9 Pantoprazo le40 mg dailymonit or for gi upset. Mixed anxi ety and depressive disorder 776163582 F41.8 continue Escitalopr am Oxalate Tablet 30 mg dailymonit or for mood and behavorial changes. Type 2 jr betes mellitus 91229837 E11.21 bgl have been stablecont inue monitor glucose,co ntinue Lispro SSI coverageco ntinue Gabapentin Capsule 300 MG at bedtime for neuropathy pain.cindy nue tramadol 50 mg q 8 prn Falls 489056855 R29.6 no recent fallsConti nues to be a high fall risk and needs CG and sometimes an assist for transfers. she has reduce functional mobility to left lower extremity due to pain in her ankle.Alba ent would benefit from an AFO to provide support to LLE/ankle and reduce pain. [id number] FRIEDA ANDERSON [address] [place] [phone] 01/30/2024 10:23:09 02/04/2024 14:43:29 Bleeding from nose 867802856 R04.0 see hpistart afrin 2 spray to right nares q12 x 5days.janice tor for recurrence monitor BP/rebound congestion [id number] FRIEDA ANDERSON JENSEN [address] [place] [phone] 02/05/2024 09:31:19 02/11/2024 09:17:30 Bleeding from nose 368474170 R04.0 resolved. Cervical radiculopathy 34432383 M54.12 continue diclofenac gel daily and q8 prncontinu e tramadol 50 mg Q6 prncontinu e gabapentin 300 mg at hs add 300 mg QDper therapy patient neck pain is chronic and she was previously treated and recommende d Chronic di astolic heart failure 349021789 I50.32 monitor labs , weights , edemamonit or for cardiopulm onary sxencourag ed leg elevation/ wraps as needed. Gastroesop hageal reflux disease 470350355 K21.9 Pantoprazo le40 mg dailymonit or for gi upset. Mixed anxi ety and depressive disorder 539354265 F41.8 continue Escitalopr am Oxalate Tablet 30 mg dailymonit or for mood and behavorial changes. Type 2 jr betes mellitus 33418128 E11.21 continue monitor glucose,co ntinue Lispro SSI coverageco ntinue Gabapentin Capsule 300 MG at bedtime for neuropathy pain.cindy nue tramadol 50 mg q 8 prn [id number] MD DARRIN Perry [address] [place] [phone] 02/28/2024 13:56:25 03/10/2024 11:09:37 Pain in left foot [id number] 09194 M79.672 With new deformity of left great toe, with rubbing and irritation between toes and possible early cellulitis .Will start doxy 100 mg BID x 7 days with probiotic BIDWill start warm soaks with epsom salts BID for 15 .Elevat e as much as possible.G auze between toes to protect.Po diatry consult, if healthdriv e not coming next week, will consult Dr. Tanner [phone] can have wound care see her for further advice.Con tinue APAP 650 mg q 6 hrs prn and tramadol 50 mg q 8 hrs prn for pain. Diarrhea 22393574 R19.7 Only has happened one time so far, possibly from stress.Ord ered imodium prnMonitor [id number] [facility]RIED[facility] ANDERSON [facility] [address] [place] [phone] 03/04/2024 14:57:51 03/10/2024 11:43:05 Pain in left foot 7516450656 87795 M79.672 deformity of left great toe, with rubbing and irritation between toes and possible early cellulitis .continue doxy 100 mg BID x 7 days with probiotic BIDcontinu e warm soaks with epsom salts BID for 15 .Elevat e as much as possible.G auze between toes to protect.Po diatry consult, if health drive not coming next week, will consult Dr. Tanner [phone] can have wound care see her for further advice.Con tinue APAP 650 mg q 6 hrs prn and tramadol 50 mg q 8 hrs prn for pain. Blister of toe without infection 77934469 S90.425A continue warm soaks as aboveclean se left 2nd toe with soap and warm water, hydrogen peroxideap ply petroleum and cover with gauze or non stick dressing daily and prnmonitor for healing. [id number] FRIEDA ANDERSON [facility] [address] [place] [phone] 03/06/2024 14:42:26 03/10/2024 12:16:05 Mixed anxiety and depressive disorder 904615415 F41.8 continue Escitalopr am Oxalate Tablet 30 mg dailywill adjust trazodone and increased from 12.5 mg to 25 mg scheduled at HS per psych rec.and continue prn trazodone 12.5 mg bid prn, anxiety for 14 days.monit or for mood and behavorial changes. [id number] FRIEDA ANDERSON [address] [phone] 03/10/2024 10:17:01 03/16/2024 15:45:17 Pain in left foot 6298112487 99537 M79.672 deformity of left great toe, with [...] coming next week, will consult Dr. Tanner [phone] can have wound care see her for further advice- will be seen by wound on ontinu e APAP 650 mg q 6 hrs prn and tramadol 50 mg q 8 hrs prn for pain.she does not have hx of gout but will order uric acid d/t her still having pain despite abx use for 4 days. Blister of toe without infection 56153020 S90.425A continue warm soaks as aboveclean se left 2nd toe with soap and warm water, hydrogen peroxidedr essing changes to Alginate/D CD QD [id number] FRIEDA ANDERSON [address] [phone] 03/16/2024 09:19:11 03/19/2024 16:19:43 Pain in left foot 6209639948 39335 M79.672 baseline deformity due to hammer toeabx [...] infection. Mixed anxi ety and depressive disorder 154426447 F41.8 continue Escitalopr am Oxalate Tablet 30 mg dailyrepor ts although medication s have been helpful that she continues with difficultl y falling asleepand evening anxiety.in cre[facility] 12.5 mg q12 prnmonitor for mood and behavorial changes. [id number] FRIEDA ANDERSON [address] [phone] 03/17/2024 10:40:42 03/20/2024 08:44:03 Bleeding from nose 022162782 R04.0 minor nasal bleeding after blowing her nosewill discussed avoiding nose blowing, gently sniff insteadavo id picking nose or rubbing noseafrin nasal 1 spray BID prnsaline nasal spray BID Pain of to e of left foot 2929197929 86802 M79.675 reports pain to left great toe and second great toenailini tially flinching on exam when toe(s) were touched , states pain requesting toenail to be cut on 2ndshe provided clippers, I trimmed and file all toenail, she reports toes feeling much betterther e was no observatio n of facial grimacing, flinching or pulling away during procedure. [id number] Naomi Todd MD [address] [place] [phone] 03/30/2024 16:40:06 04/01/2024 10:48:39 Falls 105257542 R29.6 Continues to be a high fall risk.Getti ng OT for mobility and safety, primarily wheelchair level.Cont inue fall precaution s.Monitor for safety. Peripheral venous insufficiency 20043967 I87.2 No current sxs.Contin ue local care and elevation. Chronic di astolic heart failure 732776404 I50.32 Appears euvolemic. Continue furosemide 10 mg qdMonitor resp. status, fluid status, wts and labs. Chronic ob structive pulmonary disease 49038674 J43.8 Continues with no sxs.Contin ue Advair 250/50 BID and albuterol nebs q 6 hrs prnMonitor resp status. Type 2 jr betes mellitus 36422440 E11.21 Stable on no meds.Last HgA1C was 6.1 in 06/2023.Con tinue gabapentin 300 MG qhs and tramadol qhs scheduled and BID prn for neuropathy Monitor fingerstic ks prn and HgA1C q 3-6 months Paroxysmal atrial flutter 944667753 I48.92 Rate remains in good control on amiodarone 200 mg qdNo AC due to age and fall riskMonito r HR Restless legs 99305741 G 25.81 Continue ropinirole 2 mg BIDMonitor sxs. Mixed anxi ety and depressive disorder 134129860 F41.8 Mood sl. down due to pain not improving. Continue escitalopr am 30 mg qdMonitor mood.Consu lt psych prn Anemia of chronic disease 239914761 D63.8 Hgb remains stable.Con tinue FeSO4 325 mg qd with vitamin C 250 mg qd for absorption .Monitor labs Hyperlipidemia 11930235 E78.49 Continue atorvastat in 20 mg qdMonitor labs yearly Gastroesop hageal reflux disease 629781552 K21.9 No current sxs.Contin ue pantoprazo le 40 mg qdMonitor sxs Chronic ki dney disease 949388474 N18.2 Renal function remains stableCont inue to avoid nephrotoxi c meds as able.Monit or labs.Renal consult prn. Chronic back pain 541021 002 G89.29 Continue meds as above.Janice tor sxs. Bleeding from nose 05398 6005 R04.0 Resolved. Pain of to e of left foot 9634649895 20320 M79.675 No improvemen t since toenails cut on 03/17.Left 2nd toe still red and tender.[facility] have nursing set up appt with Dr. Lu Holder who has offices in [facility] and [place]. [place] # is [phone] local care until then. Using padding between toes to keep the pressure off.Monito r for signs of infection. Will schedule hs tramadol and keep 50 mg BID prn [id number] FRIEDA ANDERSON JENSEN [address] [place] [phone] 04/03/2024 11:03:23 04/28/2024 07:31:02 Cellulitis of foot 556286732 L03.119 left footsuspec gloria do to sx.recentl y treated for cellulitis left great toe with doxycyclin ewill start cephalexin 250 mg Q 6 hr for 5 days.will add probiotic BID for 7 daysmonito r for resolution . [id number] MD DARRIN Perry JENSEN [address] [place] [phone] 04/13/2024 17:19:14 04/28/2024 08:01:43 Osteomyelitis 76087019 M86.272 Continue ertapenem 1 gm IV qd [...] Dr. Lu Holder who has offices in [facility] and [place]. [place] # is Falls [id number] R29.6 Continues to be a high fall risk.Able to restart rehab after hospitaliz ation.Need s PT/OT for strengthen ing, balance, gait training, safety and function.C ontinue fall precaution s.Monitor for safety. Chronic di astolic heart failure 489668360 I50.32 Appears euvolemic. Continue furosemide 10 mg qdMonitor resp. status, fluid status, wts and labs. Chronic ob structive pulmonary disease 07917302 J43.8 Continues with no sxs.Contin ue Advair 250/50 BID and albuterol nebs q 6 hrs prnMonitor resp status. Type 2 jr betes mellitus 55073746 E11.21 Sugars inpt were all <100Last HgA1C was 6.1 in 06/2023.Con tinue gabapentin 300 MG qhs and other pain meds as above for neuropathy .Monitor fingerstic ks prn and HgA1C q 3-6 months Paroxysmal atrial flutter 831356928 I48.92 Rate remains in good control on amiodarone 200 mg qdNo AC due to age and fall riskMonito r HR Restless legs 70119273 G 25.81 Continue ropinirole 2 mg BIDMonitor sxs. Mixed anxi ety and depressive disorder 338444421 F41.8 Mood sl. down due to pain not improving. Continue escitalopr am 30 mg qd, trazadone 25 mg qhs and 12.5 mg BID prn.Monito r mood.Consu lt psych prn Anemia of chronic disease 265079637 D63.8 Hgb remains stable.Con tinue FeSO4 325 mg qd with vitamin C 250 mg qd for absorption .Monitor labs Hyperlipidemia 24412849 E78.49 Continue atorvastat in 20 mg qdMonitor labs yearly Gastroesop hageal reflux disease 488447808 K21.9 No current sxs.Contin ue pantoprazo le 40 mg qdMonitor sxs Chronic ki dney disease 793603912 N18.2 Renal function remains stableCont inue to avoid nephrotoxi c meds as able.Monit or labs.Renal consult prn. Chronic back pain 252610 002 G89.29 Continue meds as above.Janice tor sxs. Peripheral venous insufficiency 52260896 I87.2 No current sxs.Contin ue local care and elevation. [id number] FRIEDA ANDERSON JENSEN [address] [place] [phone] 04/16/2024 08:54:52 04/28/2024 08:26:12 Osteomyelitis 44481262 M86.272 Continue ertapenem 1 gm IV qd [...] Dr. Lu Holder who has offices in [facility], [place] and [place]. [place] # is Falls [id number] R29.6 Continues to be a high fall risk.Able to restart rehab after hospitaliz ation.Need s PT/OT for strengthen ing, balance, gait training, safety and function.C ontinue fall precaution s.Monitor for safety. Chronic di astolic heart failure 540118881 I50.32 Appears euvolemic. Continue furosemide 10 mg qdMonitor resp. status, fluid status, wts and labs. Chronic ob structive pulmonary disease 32414589 J43.8 Continues with no sxs.Contin ue Advair 250/50 BID and albuterol nebs q 6 hrs prnMonitor resp status. Paroxysmal atrial flutter 135352049 I48.92 Rate remains in good control on amiodarone 200 mg qdNo AC due to age and fall riskMonito r HR Restless legs 12322637 G 25.81 Continue ropinirole 2 mg BIDMonitor sxs. Mixed anxi ety and depressive disorder 926069607 F41.8 Continue escitalopr am 30 mg qd, trazadone 25 mg qhs and 12.5 mg BID prn.Monito r mood.Consu lt psych prn Anemia of chronic disease 319227679 D63.8 Continue FeSO4 325 mg qd with vitamin C 250 mg qd for absorption .Monitor labs Hyperlipidemia 15174960 E78.49 Continue atorvastat in 20 mg qdMonitor labs yearly Gastroesop hageal reflux disease 599313363 K21.9 No current sxs.Contin ue pantoprazo le 40 mg qdMonitor sxs [id number] FRIEDA ANDERSON [address] [place] [address] [place] [address] 04/20/2024 10:04:50 04/28/2024 08:59:08 Osteomyelitis 83452164 M86.272 left foot 2nd toe with woundgrima [...] hrs prn.To be followed by wound care.cindy jc with wound care treatment ordersShou ld f/u with Dr. Lu Holder who has offices in [facility] and [place]. [place] # is Chronic di astolic heart failure 100772962 I50.32 Appears euvolemic. Continue furosemide 10 mg qdMonitor resp. status, fluid status, wts and labs. Chronic ob structive pulmonary disease 22424432 J43.8 breathing easy and unlabored. Continue Advair 250/50 BID and albuterol nebs q 6 hrs prnMonitor resp status. Mixed anxi ety and depressive disorder 721920808 F41.8 her mood is normal reports eating and drinking ok.Continu e escitalopr am 30 mg qd, trazadone 25 mg qhs and 12.5 mg BID prn.Monito r mood.Consu lt psych prn [id number] MD DARRIN Perry [address] [place] [address] [place] [address] 04/23/2024 22:13:47 04/30/2024 18:09:13 Osteomyelitis 25289444 M86.272 Continue ertapenem 1 gm IV qd [...] Lu Holder's office again. Has offices in [facility] and [place]. [place] # is Falls [id number] R29.6 Is still a high fall risk.Needs PT/OT for strengthen ing, balance, gait training, safety and function.C ontinue fall precaution s.Monitor for safety. Chronic di astolic heart failure 453195532 I50.32 Remains euvolemic. Continue furosemide 10 mg qdMonitor resp. status, fluid status, wts and labs. Chronic ob structive pulmonary disease 92735394 J43.8 Continues with no sxs.Contin ue Advair 250/50 BID and albuterol nebs q 6 hrs prnMonitor resp status. Type 2 jr betes mellitus 39683859 E11.21 Sugars were all good, so not being checked regularly. Last HgA1C was 6.1 in 06/2023.Con tinue gabapentin 300 MG qhs and other pain meds as above for neuropathy .Monitor fingerstic ks prn and HgA1C q 3-6 months [id number] GOLDIE TREVIZO JENSEN [address] [place] [address] [place] [phone] 04/30/2024 08:46:54 05/02/2024 09:31:27 Osteomyelitis 68354624 M86.272 left foot 2nd toe with wound, [...] hrs prn.To be followed by wound care.cindy greene with wound care treatment ordersShstef neumann f/u with Dr. Lu Holder who has offices in [facility] and [place]. [place] # is Chronic di astolic heart failure 583792696 I50.32 Appears euvolemic. Continue furosemide 10 mg qdMonitor resp. status, fluid status, wts and labs. Chronic ob structive pulmonary disease 73297550 J43.8 breathing easy and unlabored. Continue Advair 250/50 BID and albuterol nebs q 6 hrs prnMonitor resp status. Mixed anxi ety and depressive disorder 676267658 F41.8 her mood is normal reports eating and drinking ok.Continu e escitalopr am 30 mg qd, trazadone 25 mg qhs and 12.5 mg BID prn.Monito r mood.Consu lt psych prn Gastroesop hageal reflux disease 849450135 K21.9 Reporting some nausea after eating, unsure if may be related to abx use. Discused with nsg., will monitor.Co ntinue pantoprazo le 40 mg qdMonitor sxs Restless legs 24866702 G 25.81 Continue requip, very helpful Headache 55709524 R51.9 history of, including migraines, for years.Most headaches in the forehead area and above eyes.APAP discussed, helps, would like it sched. if possible.D iscussed claudine nsg. who also feels it would be a good idea, so will sched. 650 mg tid.Monito r. [id number] FRIEDA ANDERSON JENSEN [address] [place] [phone] 05/05/2024 11:02:17 05/06/2024 15:43:52 Osteomyelitis 79527536 M86.272 left foot 2nd toe with wound, [...] Dr. Lu Holder who has offices in [facility] and [place]. [place] # is Chronic di astolic heart failure 809220099 I50.32 Appears euvolemic. Continue furosemide 10 mg qdMonitor resp. status, fluid status, wts and labs. Chronic ob structive pulmonary disease 70135527 J43.8 breathing easy and unlabored. Continue Advair 250/50 BID and albuterol nebs q 6 hrs prnMonitor resp status. Mixed anxi ety and depressive disorder 111616679 F41.8 her mood is normal reports eating and drinking ok.Continu e escitalopr am 30 mg qd, trazadone 25 mg qhs and 12.5 mg BID prn.Monito r mood.Consu lt psych prn Gastroesop hageal reflux disease 681482590 K21.9 Continue pantoprazo le 40 mg qdMonitor sxs Restless legs 53535554 G 25.81 Continue requip, very helpful Headache 49755043 R51.9 history of, including migraines, for years.Most headaches in the forehead area and above eyes.APAP discussed, helps, would like it sched. if possible.Eloy mo. who also feels it would be a good idea, so will sched. 650 mg tid.Monito r. [id number] FRIEDA ANDERSON JENSEN [address] [place] [phone] 5 05/07/2024 10:05:01 05/11/2024 16:11:56 Osteomyelitis 68789389 M86.272 Continue ertapenem 1 gm IV qd [...] Dr. Lu Holder who has offices in [facility] and [place]. [place] # is Chronic di astolic heart failure 713203655 I50.32 Appears euvolemic. Continue furosemide 10 mg qdMonitor resp. status, fluid status, wts and labs. Chronic ob structive pulmonary disease 71985029 J43.8 breathing easy and unlabored. Continue Advair 250/50 BID and albuterol nebs q 6 hrs prnMonitor resp status. Mixed anxi ety and depressive disorder 698736960 F41.8 Continue escitalopr am 30 mg qd, trazadone 25 mg qhs and 12.5 mg BID prn.Monito r mood.Consu lt psych prn Gastroesop hageal reflux disease 678991888 K21.9 Continue pantoprazo le 40 mg qdMonitor sxs Restless legs 45588688 G 25.81 Continue requip, very helpful Headache 77665409 R51.9 continue tylenol 650 mg prn.encour age to increase oral hydration. [id number] FRIEDA ANDERSON JENSEN [address] [place] [phone] 5 05/11/2024 16:30:45 05/12/2024 13:09:07 Osteomyelitis 69154286 M86.272 Has been tolerating IV therapy.Co ntinue [...] Dr. Lu Holder who has offices in [facility] and [place]. [place] # is Chronic di astolic heart failure 934518988 I50.32 euvolemic. Continue furosemide 10 mg qdMonitor resp. status, fluid status, wts and labs. Chronic ob structive pulmonary disease 81593293 J43.8 Continue Advair 250/50 BID and albuterol nebs q 6 hrs prnMonitor resp status. Mixed anxi ety and depressive disorder 732232646 F41.8 Continue escitalopr am 30 mg qd, trazadone 25 mg qhs and 12.5 mg BID prn.mood is good today. pleasant on exam.Monit or moodConsul t psych prn Gastroesop hageal reflux disease 906793761 K21.9 Continue pantoprazo le 40 mg qdMonitor sxs Restless legs 11335476 G 25.81 Continue requip 2 mg bid Headache 16486569 R51.9 continue tylenol 650 mg prn.encour age to increase oral hydration. [id number] [facility]EDA ANDERSON [facility] [address] [place] [phone] 5 05/15/2024 10:17:08 05/19/2024 11:08:19 Osteomyelitis [id number] M86.272 Has been tolerating IV therapy.Co ntinue ertapenem 1 gm IV qd until ontin ue probiotic BIDContinu e local care as ordered.Mo nitor labs (CBC, CMP, ESR, and CRP weekly until 05/18) and skin condition. Chronic di astolic heart failure 580433123 I50.32 euvolemic. Continue furosemide 10 mg qdMonitor resp. status, fluid status, wts and labs. Chronic ob structive pulmonary disease 34013741 J43.8 Continue Advair 250/50 BID and albuterol nebs q 6 hrs prnMonitor resp status. Mixed anxi ety and depressive disorder 615777836 F41.8 Continue escitalopr am 30 mg qd, trazadone 25 mg qhs and 12.5 mg BID prn.mood is good today. pleasant on exam.Monit or moodConsul t psych prn Gastroesop hageal reflux disease 320407130 K21.9 Continue pantoprazo le 40 mg qdthere has been no reported GI upset. Restless legs 58780092 G 25.81 Continue requip 2 mg bid Headache 76169880 R51.9 continue tylenol 650 mg prn.encour age to increase oral hydration. [id number] FRIEDA ANDERSON [facility] [address] [place] [phone] 5 05/18/2024 08:44:49 05/19/2024 11:16:27 Osteomyelitis 21247969 M86.272 completed abxcontinu e probiotic BIDContinu e local care as ordered.f/ u appt. with ID later today Chronic di astolic heart failure 415636754 I50.32 stableCont inue furosemide 10 mg qdMonitor resp. status, fluid status, wts and labs. Chronic ob structive pulmonary disease 99446128 J43.8 breathing easy and unlabored. Continue Advair 250/50 BID and albuterol nebs q 6 hrs prnMonitor resp status. Mixed anxi ety and depressive disorder 362432664 F41.8 Continue escitalopr am 30 mg qd, trazadone 25 mg qhs and 12.5 mg BID prn.Monito r moodConsul t psych prn Gastroesop hageal reflux disease 672310660 K21.9 Continue pantoprazo le 40 mg qdthere has been no reported GI upset. Restless legs 51807481 G 25.81 Continue requip 2 mg bid Headache 42264410 R51.9 continue tylenol 650 mg prn.encour age to increase oral hydration. [id number] FRIEDA ANDERSON [facility] [address] [place] [phone] 5 05/25/2024 09:58:25 05/29/2024 09:27:36 [facility] [id number] M86.272 completed abx Chronic di astolic heart failure 389167602 I50.32 euvolemicC ontinue furosemide 10 mg qdMonitor resp. status, fluid status, wts and labs. Chronic ob structive pulmonary disease 30564277 J43.8 breathing easy and unlabored. Continue Advair 250/50 BID and albuterol nebs q 6 hrs prnMonitor resp status. 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 Restless legs 80787469 G 25.81 Continue requip 2 mg bid Headache 60697737 R51.9 continue tylenol 650 mg prn.encour age to increase oral hydration. [id number] FRIEDA ANDERSON [address] [address] 06/01/2024 09:58:25 06/03/2024 09:34:34 Osteomyelitis 62333354 M86.272 completed abx Chronic di astolic heart failure 416377568 I50.32 euvolemicC ontinue furosemide 10 mg qdMonitor resp. status, fluid status, wts and labs. Chronic ob structive pulmonary disease 36341510 J43.8 breathing easy and unlabored. Continue Advair 250/50 BID and albuterol nebs q 6 hrs prnMonitor resp status. Mixed anxi ety and depressive disorder 323212876 F41.8 mood is stableCont inue escitalopr am 30 mg qd, trazadone 25 mg qhs and 12.5 mg BID prn.Monito r moodConsul t psych prn [id number] FRIEDA ANDERSON [address] [address] 5 06/03/2024 11:42:59 06/09/2024 13:21:42 Osteomyelitis 39935392 M86.272 completed abx Chronic di astolic heart failure 373446946 I50.32 euvolemicC ontinue furosemide 10 mg qdMonitor resp. status, fluid status, wts and labs. Chronic ob structive pulmonary disease 43636904 J43.8 breathing easy and unlabored. Continue Advair 250/50 BID and albuterol nebs q 6 hrs prnMonitor resp status. Mixed anxi ety and depressive disorder 661720227 F41.8 mood is stableCont inue escitalopr am 30 mg qd, trazadone 25 mg qhs and 12.5 mg BID prn.Monito r moodConsul t psych prn [id number] FRIEDA ANDERSON [address] [address] 5 06/09/2024 10:12:41 06/11/2024 14:30:47 Osteomyelitis 07130435 M86.272 06/09:clinic ally she is stableleft foot 2 nd toe-recent ly completed IV antibiotic s ertapenem 1 gm daily for 6 weeksrecen tly seen on 06/03 by podiatry, f/u appt scheduled for 06/18/24.Jesse [place] need to see vascular; podiatry concern for possible need for amputation message left today will podiatry to discuss plan of care. awaiting call back.will order xray of left foot 3 views; consider ordering MRI as well.will add tx ord to cleanse toe daily with warm soapy water with peroxide pat dry and apply bacitracin with DCD BID. [id number] FRIEDA ANDERSON [address] [place] [address] 5 06/11/2024 11:46:23 06/15/2024 11:21:06 Osteomyelitis 24304595 M86.272 06/09:clinic ally she is stableleft foot 2 nd toe-recent ly completed IV antibiotic s ertapenem 1 gm daily for 6 weeksrecen tly seen on 06/03 by podiatry.Alejandro ay need to see vascular; podiatry concern [...] a second consult with ortho. appt 06/18/24. [id number] FRIEDA ANDERSON [address] [place] [address] 06/15/2024 09:48:35 06/17/2024 10:12:04 Osteomyelitis 37795533 M86.272 06/09:clinic ally she is stableleft foot [...] appt 06/18/24. Chronic di astolic heart failure 596976325 I50.32 euvolemicw eight stableCont inue furosemide 10 mg qdMonitor resp. status, fluid status, wts and labs. Chronic ob structive pulmonary disease 86342376 J43.8 breathing easy and unlabored. Continue Advair 250/50 BID and albuterol nebs q 6 hrs prnMonitor resp status. [id number] FRIEDA ANDESRON [address] [place] [phone] 5 06/22/2024 08:47:12 06/24/2024 08:50:27 Osteomyelitis 35336175 M86.272 06/09:clinic ally she is stableleft foot [...] gaines. Mixed anxi ety and depressive disorder 536623781 F41.8 mood is stablerece nt room change transition to LTC, adjusting well. Most of the women she joins at activities reside on same unit, she is happy about this.Cindy nue escitalopr am 30 mg qd, trazadone 25 mg qhs and 12.5 mg BID prn.Monito r moodConsul t psych prn [id number] FRIEDA ANDERSON [address] [place] [address] rd [place] [phone] 5 06/29/2024 10:45:15 06/30/2024 13:34:02 Osteomyelitis 43255712 M86.272 06/09:clinic ally she is stableleft foot [...] ortho. Mixed anxi ety and depressive disorder 261983420 F41.8 mood is stablerece nt room change transition to LTC, adjusting well. Most of the women she joins at activities reside on same unit, she is happy about this.Cindy nue escitalopr am 30 mg qd, trazadone 25 mg qhs and 12.5 mg BID prn.Monito r moodConsul t psych prn Chronic di astolic heart failure 233190259 I50.32 euvolemicw eight stable noted 166-168Con tinue furosemide 10 mg qdMonitor resp. status, fluid status, wts and labs. [id number] FRIEDA ANDERSON [address] [address] 5 07/02/2024 11:07:08 07/03/2024 12:50:28 Mixed anxiety and depressive disorder 144867506 F41.8 mood is stable- she denies feeling hopeless, lonely or isolated.C ontinue escitalopr am 30 mg qd, trazadone 25 mg qhs and 12.5 mg BID prn.Monito r mood for negative changes.pt encouraged to continue to engage in social activities .Consult psych prn Chronic di astolic heart failure 892855821 I50.32 euvolemic- she denies any chest pain or shortness of breathweig ht stable noted 166-168Con tinue furosemide 10 mg qdMonitor resp. status, fluid status, wts and labs. Hammer toe 522776869 M20 .42 left foot 2 nd toe-recent ly completed IV antibiotic s ertapenem 1 gm daily for 6 weeks for osteomyeli tis. she continues to have discomfort . follow up xray results: no acute abnormalit y is seen in the left foot. [id number] F[facility]EDA ANDERSON [facility] [address] [place] [phone] 5 07/07/2024 14:44:04 07/08/2024 11:39:59 Hammer toe 996041782 M20.42 left foot 2 nd toe-recent ly completed IV antibiotic s ertapenem 1 gm daily for 6 weeks for osteomyeli tis. she continues to have discomfort . follow up xray results: no acute abnormalit y is seen in the left foot. Mixed anxi ety and depressive disorder 662141898 F41.8 mood is stable- she denies feeling hopeless, lonely or isolated.C ontinue escitalopr am 30 mg qd, trazadone 25 mg qhs and 12.5 mg BID prn.Monito r mood for negative changes.pt encouraged to continue to engage in social activities .followed by psych prn recently seen 07/06 no new recommenda tion. Chronic di astolic heart failure 220096462 I50.32 euvolemic- she denies any chest pain or shortness of breathweig ht stable noted 166-168Con tinue furosemide 10 mg qdMonitor resp. status, fluid status, wts and labs. [id number] FRIEDA ANDERSON [address] [address] 5 07/13/2024 08:31:31 07/14/2024 11:43:51 Hammer toe 471787746 M20.42 07/13:stabl e, no worsening sx notedleft foot 2 nd toe-recent ly completed IV antibiotic s ertapenem 1 gm daily for 6 weeks for osteomyeli tis. she continues to have discomfort . follow up xray results: no acute abnormalit y is seen in the left foot. Mixed anxi ety and depressive disorder 359148337 F41.8 07/13: StableCont inue escitalopr am 30 mg qd, trazadone 25 mg qhs and 12.5 mg BID prn.Monito r mood for negative changes.pt encouraged to continue to engage in social activities .followed by psych prn recently seen 07/06 no new recommenda tion. Chronic di astolic heart failure 936638778 I50.32 07/13: stable.euv olemic- she denies any chest pain or shortness of breathweig ht stable noted 166-168Con tinue furosemide 10 mg qdMonitor resp. status, fluid status, wts and labs. [id number] FRIEDA ANDERSON [address] [address] 5 07/16/2024 10:15:02 07/21/2024 15:43:58 Hammer toe 382042270 M20.42 07/13:stabl e, no worsening sx notedleft foot 2 nd toe-recent ly completed IV antibiotic s ertapenem 1 gm daily for 6 weeks for osteomyeli tis. she continues to have discomfort . follow up xray results: no acute abnormalit y is seen in the left foot. Mixed anxi ety and depressive disorder 260943836 F41.8 Stable with delusional thoughts, she thinks staff is stealing her clothes.Co ntinue escitalopr am 30 mg qd, trazadone 25 mg qhs and 12.5 mg BID prn.Monito r mood for negative changes.pt encouraged to continue to engage in social activities .followed by psych prn recently seen 07/06 no new recommenda tion. Chronic di astolic heart failure 874265428 I50.32 stable.euv olemic- she denies any chest pain or shortness of breathweig ht stable noted 166-168Con tinue furosemide 10 mg qdMonitor resp. status, fluid status, wts and labs. [id number] FRIEDA ANDERSON [facility] [address] [facility] [place] [phone] 07/20/2024 11:57:24 07/21/2024 16:08:03 Hammer toe 615521907 M20.42 stable, no worsening sx notedleft foot 2 nd toe-recent ly completed IV antibiotic s ertapenem 1 gm daily for 6 weeks for osteomyeli tis. she continues to have discomfort . follow up xray results: no acute abnormalit y is seen in the left foot. Mixed anxi ety and depressive disorder 725921795 F41.8 07/19: seen by rn psych will review notes when available. Stable with delusional thoughts, she thinks staff is stealing her clothes.Co ntinue escitalopr am 30 mg qd, trazadone 25 mg qhs and 12.5 mg BID prn.Monito r mood for negative changes.pt encouraged to continue to engage in social activities .followed by psych prn recently seen 07/06 no new recommenda tion. Chronic di astolic heart failure 687895702 I50.32 stable.euv olemic- she denies any chest pain or shortness of breathweig ht stable noted 166-168Con tinue furosemide 10 mg qdMonitor resp. status, fluid status, wts and labs. [id number] FRIEDA ANDERSON [address] [place] [address] 1 07/23/2024 11:46:33 07/24/2024 11:44:07 Hammer toe 552936350 M20.42 stable, no worsening sx notedleft foot 2 nd toe-recent ly completed IV antibiotic s ertapenem 1 gm daily for 6 weeks for osteomyeli tis. she continues to have discomfort . follow up xray results: no acute abnormalit y is seen in the left foot. Mixed anxi ety and depressive disorder 819642474 F41.8 StableCont inue escitalopr am 30 mg qd, trazadone 25 mg qhs and 12.5 mg BID prn.Monito r mood for negative changes.pt encouraged to continue to engage in social activities .followed by psych prn recently seen 07/06 no new recommenda tion. Chronic di astolic heart failure 374238549 I50.32 stable.euv olemic- she denies any chest pain or shortness of breathweig ht stable noted 166-168Con tinue furosemide 10 mg qdMonitor resp. status, fluid status, wts and labs. Chronic ob structive pulmonary disease 55626260 J43.8 breathing easy and unlabored. Continue Advair 250/50 BID and albuterol nebs q 6 hrs prnMonitor resp status. [id number] FRIEDA ANDERSON [address] [place] [phone] 5 09/10/2024 08:43:17 09/11/2024 12:05:09 Mixed anxiety and depressive disorder 121461847 F41.8 mild emotional distress, crying during assessment 2/ ble painContin ue escitalopr am 30 mg qd, trazadone 25 mg qhs and 12.5 mg BID prn.psych prn Chronic di astolic heart failure 407781611 I50.32 euvolemic- she denies any chest pain or shortness of breathweig ht stableCont inue furosemide 20 mg qdMonitor resp. status, fluid status, wts and labs. Chronic ob structive pulmonary disease 33002995 J43.8 breathing easy and unlabored. Continue Advair 250/50 BID and albuterol nebs q 6 hrs prnMonitor resp status. Neuropathy 200859869 G62 .9 see hpiBLE without sx of infectiono n gabapentin 300 mg at hs -she has been having increasing sx and weakness, requiring 2 people assist.dis cussed increasing gabapentin to BID and re eval in a few days for effect.hx diabetes/n ot on meds/ will get updated A1c. (06/2023 noted 6.1) Restless legs 33068266 G 25.81 Continue requip 2 mg bid [id number] FRIEDA ANDERSON [address] [address] 5 09/14/2024 10:23:24 09/15/2024 14:23:56 Neuropathy 121205551 G62.9 BLE without sx of infectiong abapentin 300 mg BIDshe has been having increasing sx and weakness, requiring 2 people assist.hx diabetes/n ot on meds/ will get updated A1c. (06/2023 noted 6.1) - labs ord for today not completed will re-order. Restless legs 04153552 G 25.81 Continue requip 2 mg bid [id number] FRIEDA ANDERSON [address] [address] 5 10/02/2024 11:01:09 10/05/2024 13:31:21 Pain of left ankle joint [id number] 6717365 M25.572 localizedn on pitting left ankle swelling, no redness or warmthno foot discolorat ion, color is normal+CMS , pain with ROMplan for xray, labs with uric acid,apply ice 15 minutes to ankle TIDapply tyrone wrap compressio n dailywill schedule tylenol 650 mg TID and Motrin 400 mg BIDPT/OT eval and tx [id number] FRIEDA ANDERSON [address] [address] 5 10/05/2024 11:01:37 10/06/2024 13:54:09 Pain of left ankle joint 2934894867 6125208 M25.572 localized/ swelling noted to have improved [...] BIDPT/OT eval and tx Contusion of thigh 84630 003 S70.10XA see hpi/left thightende r to touchmonit or as it healsdiscu ssed with nursingcon tinue scheduled tylenol [id number] Rex Bass MD [address] [place] [address] 11/25/2024 11:52:19 11/26/2024 15:26:27 Acute low back pain 368727154 M54.59 acute on chronic low back pain with point tenderness lumbar spinex ray to eval for concern vert comp fxx ray left hipchange tramadol 50 mg to q 6 prnmonitor need for ortho eval Chronic di astolic heart failure 811136471 I50.32 euvolemic- she denies any chest pain or shortness of breathweig ht stableCont inue furosemide 20 mg qdMonitor resp. status, fluid status, wts and labs. Chronic ob structive pulmonary disease 06648873 J43.8 monitor respirator y status and albuterol utilizatio n Gastroesop hageal reflux disease 855098868 K21.9 protonix 40 mg qdmonitor sx control Health Concerns Section Related Observation LastModified by Organization Detai ls LastModified Time None Recorded Concern Status LastModified by Organization Details LastModified Time None Recorded Advance Directives Directive Y: Payers Encounter Date Sequence Insurance Name Policy Number Policy Anders Covered Member ID Anders Member ID Guarantor Name 09/10/2024 1 [place] [employer] Shreya M Gravel [id number] Shreya Gravel 09/10/2024 2 [place] [id number] Shreya Gravel [id number] Shreya Gravel 09/14/2024 1 [place] [employer] Shreya M Gravel [id number] Shreya Gravel 09/14/2024 2 [place] [id number] Shreya Gravel [id number] Shreya Gravel 10/02/2024 1 [place] [employer] Shreya M Gravel [id number] Shreya Gravel 10/02/2024 2 [place] [id number] Shreya Gravel [id number] Shreya Gravel 10/05/2024 1 [place] [employer] Shreya M Gravel [id number] Shreya Gravel 10/05/2024 2 [place] [id number] Shreya Gravel [id number] Shreya Gravel 11/25/2024 1 [place] [employer] Shreya M Gravel [id number] Shreya Gravel 11/25/2024 2 [place] [id number] Shreya Gravel [id number] Shreya Gravel Notes Date Note Type Note Provider Name and Address Organization Details Recorded Time 09/10/2024 text/html This is a 88 yr [...] is now a max assist with transfers. CARLTON MINA, FRIEDA [address] [facility], [address], [place], [address], [facility] [employer] Of The Month 09/10/2024 19:04:25 09/14/2024 text/html This is a [...] no acute nursing concerns. FRIEDA ANDERSON [address] [facility], [address], [place], [address], [employer] 09/14/2024 14:27:57 10/02/2024 text/html This is a [...] depression, anxiety, LLE cellulitis. FRIEDA ANDERSON [address] [facility], [address], [place], [address], [employer] 10/02/2024 11:23:10 10/05/2024 text/html This is a 89 yr old female LTC resident seen for acute rounding visit follow up left ankle swelling. She is at her baseline in NAD. On exam she tells me that ankle [...] depression, anxiety, LLE cellulitis. FRIEDA ANDERSON [address] [facility], [address], [place], [address], [employer] 10/05/2024 16:22:00 11/25/2024 text/html Patient is a 89 yo female resident due for routine rounding also seen for acute rounding with complaint of chronic pain. PMH chf, a flutter, gerd, anemia, copd, chronic pain Rex Bass MD [address] [facility], [address], [place], [address], [facility] - Swag Of The Month 11/25/2024 12:03:07 OBGyn Episode No OBEpisode recorded.
== END 2024-11-30 13:36 | disposition home or self-care (01) ==
LOC: HO.MMNH3L 13:35
PROVIDERS: Visit Provider Family Medicine
DX: I10 Essential (primary) hypertension (principal); F41.9 Anxiety disorder, unspecified; N18.2 Chronic kidney disease, stage 2 (mild); R82.90 Unspecified abnormal findings in urine
CPT/HCPCS: 81003; 87086

== ENCOUNTER 2024-12-07 06:14 | Outpatient (REF) | payer MEDICARE, MEDICAID, SELFPAY ==
[2024-12-07 06:10] LABS: MANUAL DIFF FLAG NO
--- OUTSIDE RECORDS SUMMARY | 2024-12-07 06:18 | XMS_ITS | Continuity of Care Document ---
Author Organization [facility], [facility] Address [address] [place] [address] Care Team Providers Care Spiral Tube Winder Helper Name Role Phone DARRIN STYLES 3RD FLOOR OTHER [phone] Assessment No assessment recorded. Plan of Treatment [...] and Address Organization Details Recorded Time Cystitis 35880058 Active 2023 FRIEDA ANDERSON [address], [address], [place], [address], [employer] 4 14:00:02 Falls 789904554 Active 2023 FRIEDA ANDERSON [address], [address], [place], [address], [facility] 4 14:00:38 Pain of right wrist 5930463453180 00 Active 2023 FRIEDA ANDERSON [address], [address], [place], [address], [employer] [facility] 4 14:00:56 Peripheral venous insufficien cy 71421883 Active 2023 FRIEDA ANDERSON [address], [address], [place], [address], [facility] 4 14:01:26 Chronic diastolic heart failure 104933230 Active 2023 FRIEDA ANDERSON [address], [address], [place], [address], [facility] 4 14:01:46 Type 2 diabetes mellitus 16751230 Active 2023 FRIEDA ANDERSON [address], [address], [place], [address], [facility] 4 14:01:55 Paroxysmal atrial flutter 928288892 Active 2023 FRIEDA ANDERSON [address], [address], [place], [address], [facility] 4 14:02:21 Restless legs 03633318 Active 2023 FRIEDA ANDERSON [address], [place], [address], [facility] 4 14:02:38 Chronic obstructive pulmonary disease 75893986 Active 2023 FRIEDA ANDERSON [address], [place], [address], [facility] 4 14:02:49 Anemia of chronic disease 468208126 Active 2023 FRIEDA ANDERSON [address], [address], [place], [address], [facility] 4 14:02:59 Mixed anxiety and depressive disorder 071806206 Active 2023 FRIEDA ANDERSON [address], [place], [address], [facility] 4 14:17:43 Chronic kidney disease 995432191 Active 2023 FRIEDA ANDERSON [address], [address], [place], [address], [facility] 4 14:19:41 Hyperlipide nena 79001326 Active 2023 FRIEDA ANDERSON [address], [address], [place], [address], [facility] 4 14:26:52 Gastroesoph ageal reflux disease 432414630 Active 2023 FRIEDA ANDERSON [address] [facility], [address], [place], [address], [facility] 4 14:27:49 Chronic back pain 015966269 Active 2023 CARLTONJOEY [employer] SALESPERSON [address], [place], [address], [facility] 4 14:40:47 Vitamin D deficiency 69440356 Active 2023 MP ANDERSONP [address] [facility], [address], [place], [address], [facility] 4 19:41:46 Bradycardia 44182323 Active [address], [address], [place], [address], [facility] 4 19:44:32 Asthenia 81081755 Active [address], [address], [place], [address], [facility] 4 19:53:05 Bleeding from nose 214082741 Active [address], [address], [place], [address], [facility] 4 15:36:07 Osteomyelit is 75542086 Active 2023 Naomi Todd MD [address] [place] [address], [address], [place], [address], [facility] 4 17:53:51 Headache 20082529 Active 2023 WISAM SILVA NP [address] [facility], [address], [place], [address], [facility] 4 09:49:14 Problem Notes None recorded. Medical Equipment None Reported. Allergies Allergen ID Allergen Name Allergen Category Reaction Reaction Severity Criticality Documentation Date Start Date Code Code System Note Provider Name and Address Organization Details Recorded Time 33920 lisinopri l medicatio n Not available Not available Not available 10/22/2023 02159 RxNorm Not Available Not Available Not Available [...] mm[Hg] 73 mm[Hg] Rex Bass MD [address] [facility], [address], [place], [address], [facility] 11/25/2024 11:53:24 Social History Question Answer Notes LastModified by Organizat ion Details LastModified Time Tobacco Smoking Status Former Smoker quit 30 yrs ago FRIEDA ANDERSON [address] [facility], [address], [place], [address], [facility] 10/24/2023 14:39:11 Do You Have An [...] not available 10/24/2023 [facility], Had Been Living At [facility] Information not available 04/13/2024 Legal Guardian? No Informati on not available 10/24/2023 Do You Have A Medical Power Of Spray Maker? Yes Information not available 10/24/2023 What Was [...] Recorded Time Tdap 2 completed Flor Luna [facility] 12/27/2023 11:11:29 Pneumococcal conjugate PCV 13 7 completed Flor Luna [facility] 12/27/2023 11:11:41 Influenza, adjuvanted, quadrivalent, PF 3 completed Flor Luna [facility] 12/27/2023 11:11:59 COVID-19, mRNA, LNP-S, bivalent, PF, 30 mcg/0.3 mL dose 1 [facility] 11:12:12 COVID-19, mRNA, LNP-S, bivalent, PF, 30 mcg/0.3 mL dose 1 [facility] 12/27/2023 11:12:20 COVID-19, mRNA, LNP-S, bivalent, PF, 30 mcg/0.3 mL dose 1 [facility] 12/27/2023 11:12:29 COVID-19, mRNA, LNP-S, bivalent, PF, 30 mcg/0.3 mL dose 2 completed Flor fountain [facility] 12/27/2023 11:12:48 Past Encounters Encounter ID Performer Location Encounter Start Date Encounter Closed Date Diagnosis/Indication Diagnosis SNOMED-CT Code Diagnosis ICD10 Code Diagnosis Note [id number] Rex Bass MD [address] [place] [address] 11/25/2024 11:52:19 11/26/2024 15:26:27 Acute low back pain 854148967 M54.59 acute on chronic low back pain with point tenderness lumbar spinex ray to eval for concern vert comp fxx ray left hipchange tramadol 50 mg to q 6 prnmonitor need for ortho eval Chronic di astolic heart failure 339792827 I50.32 euvolemic- she denies any chest pain or shortness of breathweig ht stableCont inue furosemide 20 mg qdMonitor resp. status, fluid status, wts and labs. Chronic ob structive pulmonary disease 30007158 J43.8 monitor respirator y status and albuterol utilizatio n Gastroesop hageal reflux disease 338868100 K21.9 protonix 40 mg qdmonitor sx control Health Concerns Section Related Observation LastModified by Organization Detai ls LastModified Time None Recorded Concern Status LastModified by Organization Details LastModified Time None Recorded Payers Encounter Date Sequence Insurance Name Policy Number Policy Anders Covered Member ID Anders Member ID Guarantor Name 11/25/2024 1 [place] [employer] Shreya M Gravel [id number] Shreya Gravel 11/25/2024 2 [place] [id number] Shreya Gravel [id number] Shreya Gravel Notes Date Note Type Note Provider Name and Address Organization Details Recorded Time 11/25/2024 text/html Patient is a 89 yo female resident due for routine rounding also seen for acute rounding with complaint of chronic pain. PMH chf, a flutter, gerd, anemia, copd, chronic pain Rex Bass MD [address] [facility], [address], [place], [address], [facility] 11/25/2024 12:03:07 OBGyn Episode No OBEpisode recorded.
--- OUTSIDE RECORDS SUMMARY | 2024-12-07 06:19 | XMS_ITS | Data Portability ---
Author Organization [place] - [facility] Address [address] [place] [address] Care Team Providers Care Crayon Grader Name Role Phone ABAD ISLAS Primary Care Provider [facility] OTHER Assessment Encounter Date Assessment [...] of this patient according to [facility]'s infection prevention protocols. Not available 08/31/2021 20:13:40 [...] of this patient according to [facility]'s infection prevention protocols. Not available 09/02/2021 22:38:16 03/21/2022 03/21/2022 Overview/History : 86 yo F established with new to this provider presents for evaluation of wounds to both lower legs s/p fall in February. The left wound failed to close with sutures and she developed an infection as well. She is followed by [facility] for wound care of both legs. She has developed burning pain with and redness to both wounds worse on the left. [facility] is coming in every two days [...] left extremity that is consistent with cellulitis. [facility] is in every 2 days [...] of this patient according to [facility]'s infection prevention protocols. [email or web address] Not available 03/21/2022 20:18:44 Plan of Treatment Reminders Order Date Submit Date Provider Last Modified By Organization Details Last Modified Time Details Appointments None recorded. Lab rapid SARS CoV + SARS CoV 2 Ag, QL IA, respiratory specimen 2020 021 [email or web address] [address] [facility], [address] [place] [address], [address], 11:23:08 Referral None recorded. Procedures None recorded. Surgeries None recorded. Imaging US, duplex, venous, extremity, limited - swelling of left lower extremity, s/p fall and wound to left lower extremity r/o DVTpt is homebound,d oes not drive 2021 022 [email or web address] [facility] ([facility]), [address] [place] [address], [address], 2 18:21:15 XR, foot, 3 or more view - r/o right 2nd toe fracture. call pt @ [phone] 2021 022 [email or web address] [facility] ([facility]), [address] [place], [address], 2 10:17:17 XR, chest, 2 view 2020 021 [email or web address] [facility] ([facility] [address] [place], [address], 1 16:59:08 Medication Orders cephalexin 500 mg capsule 2021 022 [email or web address] [facility][id number], [address] [place], [address], 16:20:51 cephalexin 500 mg capsule 2021 022 MAGDY [id number], [address] [place], [address], 16:21:00 cephalexin 500 mg capsule 2021 022 [email or web address] [facility] #[id number], [address] [place], [address], 15:51:19 azithromyci n 250 mg tablet 2020 021 [email or web address] 0 [facility][id number], [address] [place], [address], 13:35:29 Patient TargetsNo targets recorded. Patient Instructions Encounter Date Encounter Id Patient Instructions Last Modified By Organization Details Last Modified Time 08/31/2021 [id number] What is coronavi ethel disease 2019? Coronavirus disease 2019 (COVID-19) is a respiratory illness that can spread from person to person. The virus that causes COVID-19 is a novel coronavirus that was first identified during an investigation into an outbreak in [facility]. Can I get COVID-19? Yes. COVID-19 [...] least 20 seconds. Use an alcohol-based hand director intelligence analysis programs that contains at least 60% alcohol if [...] (EUA). The EUA is supported by the [employer] of Health and Human Service? s (HHS? [...] or worsen. Not available 08/31/2021 20:06:42 09/02/2021 [id number] Thank you for yo ur visit with [employer] today. We cannot always find the exact [...] in your condition between 8am-10pm, please call [employer] at [phone] to help navigate your care. Not available 09/02/2021 22:29:43 12/08/2021 [id number] Thank you for yo ur visit with [employer] today. We cannot always find the exact [...] in your condition between 8am-10pm, please call [employer] at [phone] to help navigate your care. Thank you for your visit with [employer] today. You do not appear to have [...] in your condition between 8am-10pm, please call [employer] at [phone] to help navigate your care. [email or web address] Not available 12/08/2021 17:46:11 03/21/2022 [id number] Thank you for yo ur visit with [employer] today. You may have had laboratory tests [...] in your condition between 8am-10pm, please call [facility] at [phone] to help navigate your care. [email or web address] Not available 03/21/2022 17:19:04 Reason for Referral None Reported. Results Created Date Observation Date Name Description Value Unit Range Abnormal Flag Note LastModifiedBy Organization Detail LastModifiedTime 08/31/20 21 08/31/2021 rapid SARS CoV + SARS CoV 2 Ag, QL IA, respi rator y speci men Covid-19 (ref: neg) positi ve Not Available [facility] [address] [place], [address], 08/31/2021 11:22:25 08/31/20 21 08/31/2021 rapid SARS CoV + SARS CoV 2 Ag, QL IA, respi rator y speci men Control Visual ized/V alid Not Available [facility] [address] [place], [address], 08/31/2021 11:22:25 08/31/20 21 08/31/2021 rapid SARS CoV + SARS CoV 2 Ag, QL IA, respi rator y speci men Location [facility]NOTE 3], Dispat [facility] missael s , [address] [place] [address], [id number] Not Available [facility] [address] [place], [address], 08/31/2021 11:22:25 08/31/20 21 08/31/2021 rapid SARS CoV + SARS CoV 2 Ag, QL IA, respi rator y speci men Race & Ethnicity Other White Not Available [facility] [address] [place], [address], 08/31/2021 11:22:25 08/31/20 21 08/31/2021 rapid SARS CoV + SARS CoV 2 Ag, QL IA, respi rator y speci men Language Englis h Not Available [facility] [address], [place], [address], 08/31/2021 11:22:25 09/01/20 21 XR, chest , 2 view No observ ation record ed. [facility] ([facility] [employer]) [address] [facility], [place], [address], 09/02/2021 18:27:35 03/02/20 22 03/02/2022 venou s [...] MIRAMONTES M.D. 022 6:10:3 5 PM EDT. [email or web address] [facility] [address] [facility] [address], [place], [address], 03/04/2022 22:42:26 Result Notes None recorded. Problems Name Problem SNOMED Code Status Onset Date Resolution Date Notes Provider Name and Address Organization Details Recorded Time Hypertensive disorder 20484600 Active 2018 [place] [facility] 17:08:43 Hypertensive disorder 38771366 Active 2019 [place] [facility] 17:08:43 Problem Notes None recorded. Procedures Surgical History Date Name Laterality Status Provider Name and Address Organization Details Recorded Time Medication Review completed Shania Marrero NP [address], [place], [address], [place] [facility] 10/22/2020 12:08:57 021 IV Start Procedure - completed JOSSE SALGADO NP [address] [place], [address], [place] [facility] 10/20/2020 12:39:22 020 Venipuncture - completed TAE SESAY [address], [place], [address], [place] [facility] 10/27/2019 23:49:05 cholecystectomy completed Carly DUBON NP [address] [place], [address], [place] [facility] 08/31/2021 11:12:48 hysterectomy completed Carly MCKEON NP [address] [place], [address], [place] [facility] 08/31/2021 11:12:58 Cabg vein four completed Carly MCKEON NP [address], [place], [address], [place] [facility] 08/31/2021 11:13:24 Imaging Results Imaging Date Name Status LastModified by Organfrerdick fontaine Details LastModified Time 09/01/2021 XR, chest, 2 view completed [email or web address] [facility] Corporate Office ([employer]) [address] [place] [address], [place], [address], 09/02/2021 18:27:35 03/02/2022 venous doppler extrem/sanchez completed [email or web address] [facility] [address] [facility] [address], [place], [address], 03/04/2022 22:42:26 Procedure Notes None recorded. Medical [...] /min 130 mm[Hg] 68 mm[Hg] Not Available [facility] 1 11:02:38 Date Recorded Oxygen saturation Oxygen saturation in Arterial blood by Pulse oximetry Respiratory rate Body temperature Heart rate Systolic blood pressure Diastolic blood pressure Provider Name and Address Organization Details Last Updated DateTime 1 96 % 96 % 22 /min 98.6 [degF] 68 /min 124 mm[Hg] 78 mm[Hg] Not Available [facility] 1 16:52:24 Date Recorded Heart rate Oxygen [...] [degF] 116 mm[Hg] 68 mm[Hg] Not Available [facility] 2 15:55:18 Social History Question Answer Notes LastModified by Organizat ion Details LastModified Time Tobacco Smoking Status Former Smoker JOSSE SALGADO, [employer]PER[employer] [address], [place], [address], [place] [facility] 12/26/2019 13:07:15 Do You Have An Advance Directive? Yes Information not available 12/26/2019 What Is Your Level Of Alcohol Consumption? None Information not available 08/31/2021 What Is Your Code Status? Full Code Information not available 12/26/2019 Drugs Abused None [email or web address] Information not available 10/17/2020 How Many Days In The Past Year Have You Had A Heavy Drinking Consumption (4+ Female, 5+ Male)? 0 Information no t available 10/17/2020 Within The Past 12 Months, Has It Happened That The Food You Bought Just Didn't Last And You Didn't Have Money To Get More. No [email or web address] Information not available 10/17/2020 Within The Past 12 Months, Have You Worried That Your Food Would Run Out Before You Got Money To Buy More. No Information not available 10/17/2020 Fall Risk: Do You Feel Unsteady When Standing Or Walking? Yes [email or web address] Information not available 10/17/2020 We Know That How And When People Interact With Friends And Family Can Be Very Different From Person To Person. How Often Do You Have The Opportunity To See Or Talk To People That You Care About And Feel Close To? (Ex: Talking To Friends On The Phone Or Visiting Friends Or Family Or Going To Denominational Or Club Meetings) 1 Or 2 Times Per Week [email or web address] Information not available 10/17/2020 Excessive Alcohol Or Drug Use No [email or web address] Information not available 10/17/2020 We Know From Many Of Our Patients That Covering All Of Their Costs Can Be Difficult At Times. This Can Cause Stress And Impact Health. In The Past Year, Have You Been Unable To Get Any Of The Following When It Was Really Needed? No [email or web address] Information not available 10/17/2020 What Is Your Housing Situation Today? I Have Housing [email or web address] Information not available 10/17/2020 Would You Like Help Connecting To Resources? None [email or web address] Information not available 10/17/2020 Marital Status Informatio n not available 10/17/2020 What Was The Date Of Your Most Recent Tobacco Screening? 02/23/2019 Information not available 01/20/2020 Do You Use Any Illicit Or Recreational Drugs? No Information not available 08/31/2021 Has Tobacco Cessation Counseling Been Provided? No [email or web address] Information not available 01/20/2020 How Many Years [...] CHF N Parkinson's Disease N Cancer N Stroke N Dementia N Asthma Y COPD Y Depression Y Hypothyroidism N High Cholesterol Y Rheumatoid Arthritis N Pulmonary Embolism N Hypertension Y A-fib N Osteoporosis Y Kidney Disease N Gynecological HistoryNo gynecological history recorded. Obstetrics History GPAL:G 0 P 0 0 0 0 Past Encounters Encounter ID Performer Location Encounter Start Date Encounter Closed Date Diagnosis/Indication Diagnosis SNOMED-CT Code Diagnosis ICD10 Code Diagnosis Note [id number] Balbina Cortés [facility] [address] [place] [address], [place] [address] 02/07/2019 08:54:53 02/10/2019 15:05:36 Swelling of lower leg 091813725 R22.40 [facility] 68787723 R06.2 resolved Chronic ob structive pulmonary disease 12471754 J44.9 Congestive heart failure 80173288 I50.9 [id number] Balbina Cortés [facility]NOTE 3[facility] - [facility] [address] [place] [address] 02/19/2019 14:54:40 02/24/2019 12:56:57 Edema of lower extremity 158405660 R60.0 [id number] Balbina Cortés [facility]NOTE 3[facility] [place] [address] [facility] [place] [address] 02/23/2019 16:49:50 02/24/2019 13:23:51 Low back strain 885664027 S39.012A [id number] Balbina Cortés [facility]NOTE 3[facility] [place] [address] [place] [address] 10/27/2019 14:16:46 10/28/2019 10:09:40 Edema of lower extremity 991696633 R60.0 Pain in ri ght lower limb 136181849 M79.604 Tear of skin 690437914 T 14.8XXA [id number] Balbina Cortés [facility]NOTE 3[facility] [place] [address] [place] [address] 12/26/2019 12:57:09 12/29/2019 00:46:41 Facial laceration 075750173 S01.81XA Fall on sa me level from slipping, tripping or stumbling 821751622 W01.0XXA [id number] Balbina Cortés [facility]NOTE 3[facility] [place] [address] [facility] [address] 01/16/2020 15:03:33 01/20/2020 13:32:20 Low back strain 446758482 S39.012A Low back pain 014831400 M54.5 [id number] Balbina Cortés [facility]NOTE 3[facility] [place] [address] [place] [place] [address] 08/20/2020 11:06:15 08/23/2020 10:14:53 Tear of skin 773658553 T14.8XXA [id number] Balbina Cortés [facility]NOTE 3[facility] - [place] [address] [place] [address] 08/22/2020 12:46:45 08/22/2020 13:06:28 [id number] JENSEN ZRACO NP [facility] [address] [place] [address] 08/22/2020 15:02:13 08/22/2020 21:37:57 Open wound of lower leg 715877632 S81.802A [id number] TAE KNOWLES [facility]NOTE 3] - [facility] [address] [place] [address] 10/17/2020 11:49:50 10/18/2020 11:22:26 Cellulitis of lower limb 113218256 L03.119 Swelling of lower leg 44 5963524 R22.40 [id number] KATHI BRIGGS NP [facility] [address] [place] [address] 10/20/2020 11:54:28 10/21/2020 12:53:21 Cellulitis of lower limb 312746361 L03.119 Exposure t o communicable disease 676298813 Z20.828 [id number] Shania Marrero NP [facility] [address] [place] [address] 10/22/2020 11:14:08 10/24/2020 17:43:41 Wound cellulitis 256341065 L03.90 [id number] JENSEN ZARCO NP [facility] [address] [place] [address] 02/02/2021 14:10:24 02/03/2021 13:29:29 Cellulitis of left lower limb 2506414618 4577924 L03.116 [id number] TAE KNOWLES [facility] [address] [place] [address] 02/06/2021 14:32:51 02/07/2021 12:44:05 Cellulitis of lower leg 545305508 L03.119 Suspected deep vein thrombosis 660594767 Z13.6 [id number] Mayra Lee NP [facility] [address] [place] [address] 04/03/2021 20:43:28 04/05/2021 23:52:12 Dizziness present 660871818 R42 Overview/H istory: Patient is an 85 [...] patient records* p atient records on the [employer] r eviewed records with the PCP}}. This informatio n was pertinent in my medical decision making today. Low back pain 925223575 M54.5 Unintentio nal weight gain 6140760427 82289 R63.5 [id number] Pranav Conner [facility] [address] [place] [address] 08/31/2021 10:49:08 09/06/2021 16:59:08 COVID-19 924655342 U07.1 + rapid Cough 09174116 R05.9 dry cough Chronic ob structive pulmonary disease 80123069 J44.9 pending [facility] enrollment , Rx to be sent by TAE Quinones for z-geno and proair 90 mcg 2 puffs every 4-6 hours as needed for fine scattered bilateral wheezepati ent declines any current Rx for GWEN Lethargy 602804420 R53.8 3 Exposure t o SARS-CoV-2 671627898 Z20.822 reports not leaving her apartment, has friend who gets mail for her, however she did go to [facility] ED on 08/27 for abdominal pain, nausea, diarrhea.s he denies any known exposure but high risk in ED [id number] Carly MCKEON NP [facility] [address] [place] [address] 09/02/2021 16:39:33 09/06/2021 11:49:43 COVID-19 526162397 U07.1 re-evaluat ion to monitor O2 which is 96 RAcurrentl y on day 3 of zpak Chronic ob structive pulmonary disease 15417840 J44.9 pt reports compliance with inhalers [id number] Compa Harrell MD [facility] [address] [place] [address] 12/08/2021 17:45:03 12/09/2021 10:11:45 Pain of toe of right foot 1191050010 39890 M79.674 Proper Personal Protective Equipment (PPE), including [...] after care of this patient according to [facility] infection prevention protocols. Overview/H istory: 86 Exam: [...] necrotic appearance , fevers, chest pain, sob. [id number] TAE Blancas [facility] [address] [place] [address] 02/28/2022 13:02:35 03/02/2022 12:14:09 Suspected soft tissue infection 6833174834 24098 Z20.818 Localized swelling of left lower leg 7091384319 2720753 R22.42 [id number] Yue Molina NP [facility] [address] [facility] [place] [address] 03/21/2022 15:37:31 03/24/2022 15:14:02 Wound cellulitis 018285216 L03.90 Health Concerns Section Related Observation LastModified by Organization Detai ls LastModified Time None Recorded Concern Status LastModified by Organization Details LastModified Time None Recorded Advance Directives Directive Y: Payers Encounter Date Sequence Insurance Name Policy Number Policy Anders Covered Member ID Anders Member ID Guarantor Name 08/31/2021 1 [place] Shreya M Gravel [id number] Shreya Gravel 08/31/2021 2 [place] [id number] Shreya Gravel [id number] Shreya Gravel 09/02/2021 1 [place] Shreya M Gravel [id number] Shreya Gravel 09/02/2021 2 [place] [id number] Shreya Gravel [id number] Shreya Gravel 12/08/2021 1 [place] Shreya M Gravel [id number] Shreya Gravel 12/08/2021 2 [place] [id number] Shreya Gravel [id number] Shreya Gravel 02/28/2022 1 [place] Shreya M Gravel [id number] 4 Shreya Gravel 02/28/2022 2 [place] [id number] Shreya Gravel [id number] Shreya Gravel 03/21/2022 1 [place] Shreya M Gravel [id number] Shreya Gravel 03/21/2022 2 [facility] ([place]MNITY) [id number] Shreya Gravel [id number] Shreya Gravel Notes Date Note Type [...] contacts. 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 She reports 2 nights ago waking up in the morning with diarrhea. She denies any fevers, shortness of breath, difficulty breathing, chest pain, palpitations, dizziness, unilateral weakness, change in mental status, vision, speech, taste and or smell. Carly MCKEON, GOLDIE [address] [place], [address], [place] [facility] 08/31/2021 20:14:52 09/02/2021 text/html [...] status. Carly MCKEON NP [address], [place], [address], [place] [facility] 09/02/2021 22:38:32 12/08/2021 text/html [...] no CP TAE Rosales [address], [place], [address], [place] [facility] 12/08/2021 18:26:26 02/28/2022 text/html [...] got home and had infection went to [facility] was admitted for a week, then went to [facility] for rehab. 02/08/2022 home. TAE Blancas [address], [place], [address], [place] [facility] 03/08/2022 20:04:51 03/21/2022 text/html 86 yo F with wounds to the left s/p fall in early February. She had sutures in the left leg that became infected and a smaller wound to the middleton of the right lower leg. [facility] is following her for her wounds and are in every 2 days for assessment and dressing changes. Today she states she has burning to her legs and redness to of both legs.F/u with PCP in 03/30/22. Yue Molina NP [address], [place], [address], [place] [facility] 03/21/2022 20:19:51 OBGyn Episode No OBEpisode recorded.
--- OUTSIDE RECORDS SUMMARY | 2024-12-07 06:19 | XMS_ITS ---
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) Active confirmed Problem Acquired hammer toe of left foot (4814820629126718) Other hammer toe(s) (acquired), left foot (M20.42) Active confirmed Problem 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, bilateral legs (I70.203) Active confirmed Vital Signs Height 5 ft 4 in in 05/22/2024 Weight 181 lbs 05/22/2024 BMI 31.07 kg/m2 05/22/2024 Procedures Procedure Date Ordered Date Performed Result Body Sit e 11402-AHWNVZG SKIN/TISSUE 05/22/2024 N/A 79868-KHMZ SKIN LESIONS, 2 TO 4 05/22/2024 N/A Encounters Encounter Location Date Provider Diagnosis [facility] [place] [address] [place] [id number] 05/22/2024 Toñito Green Tinea unguium B35.1 ; [...] right foot M20.41 and 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, bilateral legs I70.203 Assessments [...] (ICD-10 - M20.41) 05/22/2024 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, bilateral legs (ICD-10 - I70.203) Plan Of Treatment Pending Test Test Name Order Date 79085-OOPXDTV SKIN/TISSUE 05/22/2024 89398-KESH SKIN LESIONS, 2 TO 4 05/22/20 24 [...] as necessary. Patient chooses, no pharmaceutical tx (04988) Debride skin and subQ Open wound Open [...] symptoms of infection or any untoward reactions (45139), Keratoma Treatment Parring or Cutting o f Benign Hyperkeratotic Lesion(s) 51182 ( 2-4 Lesions ) - The Benign hyperkeratotic lesions, as described above were pared, and/or cut utilizing a sterile 15 blade, tissue nippers, and/or dremel, Q8 Progress Notes * Shreya BAUTISTADOB: (88 yo F)Acc No.[id number]:05/22/2024 Progress Note Patient:?Shreya Bautista Provider:?Toñito Green DPM :1935???Age:88 Y???Sex:Female D ate:05/22/2024 Address:[facility] [address] [place], [place] [id number] Pcp:James Gonsales MD Subjective: * Chief Complaints: * ??? Painful nail(s) aggrevat ed by shoes and causing difficulty standing/walking.Open sore * HPI: ???Painful Nails:?Pt States Last PCP Visit:?Date:?04/21/2024 ???Skin problems:?Nature:?Ulcer, tender, throbbing, swelling.?Location:?Left , 2nd, Toe(s).?Duration:?several months.?Course:?unresolved.?Aggravated by:?any pressure, standing, walking.?Treatments:?hospitalization, admission to [facility] and pt just finished course of IV [...] 06/29/2016 * Hospitalization/Major Diagno stic Procedure:?Dehydration 11/2011[facility] - Emergency 11/23/14 & 11/24/[place] [facility]GER[place] 03/2015[facility], tripped bumped head 08/2015[facility] 02[place]2016[facility] [place]18[facility] days [...] present-mild with pop noted.?Ophthalmology Referral: ?DIABETES EYE EXAM?Diabetic Retinopathy Screening:?Yes?Orthopedic: ?MUSCLE STRENGTH:?5/5 all groups in a symmetrical [...] in no acute distress.?ORIENTED:?person, place, and time.?FOOT EXAM:?Lower Extremity Neurological Exam performed:?Yes ?Visual exam of foot performed:?Yes ?Date?05/22/2024 ?Sensory testing performed:?sensations diminished ?Sensory and motor testing performed:?sensations and strength diminished ?Pedal pulse taking performed:?absent ?Footwear Evaluation?Footwear Evaluation performed:?Yes?Vascular: ?DP PULSES:?0/4 , B/L.?PT PULSES:?0/4 , B/L.?CAPILLARY [...] (acquired), right foot - M20.41?9.?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, bilateral legs - I70.203? Plan: * Treatment: 2.?Unspecified atheroscleros is of soboba arteries of extremities, bilateral legs?Procedure: 86101-SZPR SKIN LESIONS, 2 TO 4 * Procedures:?Debride Nail 6-10:?Nail debridement?Nail debridement performed extensively to reduce/remove overall nail length and girth, subungual debris, and necrotic tissue, by manual and electrical means with use of a nail nipper and/or dremel, to more viable healthy nail plate or bed tissue 6-10. Silver nitrate used for any petechial bleeding as necessary. Patient chooses, no pharmaceutical tx (28804).?Debride skin and subQ:?Open wound?Open wound selective debridement [...] symptoms of infection or any untoward reactions (84741), .?Keratoma Treatment:?Parring or Cutting of Benign Hyperkeratotic Lesion(s)?48774 ( 2-4 Lesions ) - The Benign hyperkeratotic lesions, as described above were pared, and/or cut utilizing a sterile 15 blade, tissue nippers, and/or dremel, Q8.? * Procedure Codes:?94127 DEBRI DE NAIL, 6 OR MORE, Modifiers: XS 33344 DEBRIDE SKIN/TISSUE, Modifiers: XS 54581 TRIM SKIN LESIONS, 2 TO 4, Modifiers: [...] Green DPM Date:? 024 Generated for Millie keenan/Cory/Noelle on:?12/07/2024 06:19 AM EST History and Physical Notes * HPI (History of Present Illness) Category Sub-Category Detail Notes Category Not es Painful Nails Pt States Last PCP Visit: Date:: 04/21/2024 Skin problems Nature: Ulcer, tender, t hrobbing, swelling Location: Left , 2nd, Toe(s) Duration: several months Course: unresolved Aggravated by: any pressure, standi ng, walking Treatments: hospitalization, adm ission to [facility] and pt just finished course of IV [...]
--- OUTSIDE RECORDS SUMMARY | 2024-12-07 06:19 | XMS_ITS ---
Author Organization [facility] Address [address] [place] [address] Care Team Providers Care Accounts Payable Lead Name Role Phone Shelia DIAZ, Rex Primary Care Provider Unavailab Lu Dickson Unavailable [phone] REASON FOR VISIT Needs call back from MD Encounters Encounter Location Date Provider Diagnosis [facility] [address] [place] [address] 06/09/2024 Lu Black Plan Of Treatment No Information Progress Notes * Shreya BAUTISTADOB: 6 (88 yo F)Acc No.[id number]:06/09/2024 Patient:?Shreya Bautista :1935???Age:88 Y???Sex:Female Address:[address], [place], [address] * true * Date:? Generated for Haydei ree/Cory/eTransmitting on:?12/07/2024 06:18 AM EST
--- OUTSIDE RECORDS SUMMARY | 2024-12-07 06:19 | XMS_ITS ---
Author Organization [facility] Address [address] [place] [address] Care Team Providers Care Globe Tester Name Role Phone Rex Bass MD Primary Care Provider Unavailab Lu Dickson Unavailable [phone] REASON FOR VISIT reference tel enc 06/09/24 Encounters Encounter Location Date Provider Diagnosis [facility] [address] [place] [address] 06/10/2024 Lu Black Plan Of Treatment No Information Progress Notes * Shreya BAUTISTADOB: 6 (88 yo F)Acc No.[id number]:06/10/2024 Patient:?Shreya Bautista :1935???Age:88 Y???Sex:Female Address:[address], [address], [place], [address] * true * Date:? Generated for Millie keenan/Cory/eTransmitting on:?12/07/2024 06:19 AM EST
--- OUTSIDE RECORDS SUMMARY | 2024-12-07 06:19 | XMS_ITS | Data Portability ---
Author Organization [facility] PAIN OFFICE Address [address] [place] [address] Care Team Providers Care Tire Fabric Inspector Name Role Phone ABAD GONSALES Primary Care Provider [phone] GUILHERME DIAZ Referring Provider [phone] Assessment Encounter Date Assessment Date Assessment LastModified [...] appointment has been booked. She needs a cdl dedicated truck driver on the day of the procedure. [...] By Organization Details Last Modified Time 06/26/2021 [id number] She was advised against bed rest lasting longer than four days and to continue activities as tolerated. [email or web address] Not available 06/30/2021 10:01:24 07/11/2021 [id number] She was advised to continue with activities as tolerated [email or web address] Not available 07/11/2021 13:35:39 10/04/2021 [id number] She was advised to continue with activities as tolerated [email or web address] Not available 10/04/2021 11:55:19 12/12/2021 [id number] She was advised to continue with activities as tolerated tmanikantan Not available 12/12/2021 12:09:37 08/21/2022 [id number] She was advised to continue with activities as tolerated [email or web address] Not available 08/21/2022 10:34:48 Reason for Referral None Reported. Problems Name Problem SNOMED Code Status Onset Date Resolution Date Notes Provider Name and Address Organization Details Recorded Time Spinal stenosis of lumbar region 94650008 Active 2016 Alf adams MD [address] [place] [address] , [address], [place], [address] [facility] [place] [facility] 7 10:55:25 Lumbosacral spondylosis without myelopathy 17174522 Active 2016 Alf adams MD [address] , [address], [place], [address], [place] [facility] 7 10:55:26 Lumbosacral radiculitis 15430828 Active 2016 Alf adams MD [address] , [address], [place], [address], [place] [facility] 7 10:55:27 Displacement of lumbar intervertebral disc without myelopathy 52501427 Active 2016 Alf adasm MD [address] , [address], [place], [address], [place] [facility] 7 10:55:30 Post-herpetic neuritis 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 Procedures Surgical History Date Name Laterality Status Provider Name and Address Organization Details Recorded Time 08/21/20 22 Lumbar Epidural steroid injection under fluoroscopic guidance completed Alf Posada MD [address] , [address], [place], [address], [place] [facility] 08/21/2022 10:36:53 12/13/19 22 Lumbar Epidural steroid injection under fluoroscopic guidance completed Alf Posada MD [address] , [address], [place], [address], [place] [facility] 12/12/2021 12:09:46 10/04/20 21 Lumbar Epidural steroid injection under fluoroscopic guidance completed Alf Posada MD [address] , [address], [place], [address], [place] [facility] 10/04/2021 11:55:59 07/11/20 21 Lumbar Epidural steroid injection under fluoroscopic guidance completed Alf Posada MD [address] , [address], [place], [address], [place] [facility] 07/11/2021 13:35:45 04/11/20 21 Lumbar Epidural steroid injection under fluoroscopic guidance completed Alf Posada MD [address] , [address], [place], [address], [place] [facility] 04/11/2021 13:56:00 01/11/20 21 Lumbar Epidural steroid injection under fluoroscopic guidance completed Alf Posada MD [address] , [address], [place], [address], [place] [facility] 01/12/2021 09:57:53 09/06/20 20 Lumbar Epidural steroid injection under fluoroscopic guidance completed Alf Posada MD [address] , [address], [place], [address], [place] [facility] 09/08/2020 14:56:36 06/15/20 20 Lumbar Epidural steroid injection under fluoroscopic guidance completed Alf Posada MD [address] , [address], [place], [address], [place] [facility] 06/15/2020 14:00:13 05/23/20 20 Intra-articular shoulder steroid injection under ultrasound guidance completed Alf Posada MD [address] , [address], [place], [address], [place] [facility] 05/23/2020 15:11:49 05/11/20 19 Intra-articular shoulder steroid injection under ultrasound guidance completed Alf Posada MD [address] , [address], [place], [address], [place] [facility] 05/11/2019 09:43:25 03/31/20 19 Lumbar Epidural steroid injection under fluoroscopic guidance completed Alf Posada MD [address] , [address], [place], [address], [place] [facility] 03/31/2019 18:50:07 01/08/20 19 Fluoroscopic Guided Lumbar Facet Steroid Injections of levels completed Alf Posada MD [address] , [address], [place], [address], [place] [facility] 01/08/2019 15:03:53 09/17/20 17 Fluoroscopic Guided Lumbar Facet Steroid Injections of levels completed Alf Posada MD [address] , [address], [place], [address], [place] [facility] 09/17/2017 10:08:58 08/07/20 17 Fluoroscopic Guided Lumbar Facet Steroid Injections of levels completed Alf Posada MD [address] , [address], [place], [address], [place] [facility] 08/07/2017 10:36:11 05/08/20 17 Lumbar Epidural steroid injection under fluoroscopic guidance completed Alf Posada MD [address] , [address], [place], [address], [place] [facility] 05/08/2017 10:54:37 Joint Replacement completed Fayechris Sotoer [place] [facility] 03/14/2017 14:36:04 Cholecystectomy completed Faye Varghese [place] [facility] 03/14/2017 14:36:22 Back Surgery completed Alf Posada MD [address] , [address], [place], [address], [place] [facility] 04/02/2017 [...] completed Not Available Not Available Not Available YouScribe Ultra Test strips TESTS DAILY FOR DM, [...] Not Available No t Available Fluzone High-Dose 5662-7575 (PF) 180 mcg/0.5 mL intramuscul ar syringe TO BE ADMINISTE RED BY PHARMACIS T FOR IMMUNIZAT ION 08/07 completed Not Available Not Available Not Available Fluzone High-Dose 0728-0127 (PF) 180 mcg/0.5 mL intramuscul ar syringe [...] Updated DateTime 1 160.02 cm 34.7 kg/m2 05151.1 g 58 /min 98 % 98 % 144 mm[Hg] 56 mm[Hg] Alf adams MD [facility] [facility] , [address], [place], [address], [place] [facility] 1 [...] Is Your Level Of Alcohol Consumption? Moderate [id number] Information not available 07/22/2020 Are You Currently Employed? No [id number] Information not available 07/22/2020 Which Illicit Or Recreational Drugs Have You Used? NO [id number] Information not available 07/22/2020 Education 12 With Some College Information not available 03/14/2017 Live Alone Or With Others? Alone Information not available 03/14/2017 Marital Status Informatio n not available 03/14/2017 What Was The Date Of Your Most Recent Tobacco Screening? 03/31/2019 [id number] Information not available 07/22/2020 How Many Years Have You Smoked Tobacco? 20 [id number] Information not available 07/22/2020 Sex: Unknown Functional Status None recorded. Mental Status None recorded. Family History Nothing Reported. Medical History Condition Response Coronary Artery Disease Y Arthritis Y Hypertension Y Asthma Y High Cholesterol Y Gynecological HistoryNo gynecological history recorded. Obstetrics History GPAL:G 0 P 0 0 0 0 Past Encounters Encounter ID Performer Location Encounter Start Date Encounter Closed Date Diagnosis/Indication Diagnosis SNOMED-CT Code Diagnosis ICD10 Code Diagnosis Note [id number] Alf Posada MD PAIN OFFICE [address] [place] [address] 03/14/2017 13:22:16 03/14/2017 15:44:04 Spinal stenosis of lumbar region 40784852 M48.06 Lumbosacra l spondylosis without myelopathy 26253319 M47.817 Lumbosacra l radiculitis 91707127 M54.17 Displaceme nt of lumbar intervertebral disc without myelopathy 24773813 M51.26 [id number] Alf Posada MD PAIN OFFICE [address] [place] [address] 05/08/2017 09:51:37 05/09/2017 14:08:37 Spinal stenosis of lumbar region 88318844 M48.06 Lumbosacra l spondylosis without myelopathy 84894099 M47.817 Lumbosacra l radiculitis 04986516 M54.17 Displaceme nt of lumbar intervertebral disc without myelopathy 08368461 M51.26 [id number] Alf Posada MD PAIN OFFICE [address] [place] [address] 06/14/2017 10:36:32 06/17/2017 09:50:43 Spinal stenosis of lumbar region 77276017 M48.06 Lumbosacra l spondylosis without myelopathy 65479548 M47.817 Lumbosacra l radiculitis 18212427 M54.17 Displaceme nt of lumbar intervertebral disc without myelopathy 22575905 M51.26 [id number] Alf Posada MD [facility] PA[facility] [address] [place] [address] 08/07/2017 10:01:00 08/07/2017 15:19:24 Spinal stenosis of lumbar region 30434292 M48.062 Lumbosacra l spondylosis without myelopathy 56828250 M47.817 Lumbosacra l radiculitis 94373558 M54.17 Displaceme nt of lumbar intervertebral disc without myelopathy 79599340 M51.26 [id number] Alf Posada MD [facility] PA[facility] [address] [place] [address] 09/05/2017 10:11:57 09/05/2017 19:46:07 Spinal stenosis of lumbar region 16240633 M48.062 Lumbosacra l spondylosis without myelopathy 08564690 M47.817 Lumbosacra l radiculitis 67487277 M54.17 Displaceme nt of lumbar intervertebral disc without myelopathy 96912270 M51.26 [id number] Alf Posada MD [facility] PA[facility] [address] [place] [address] 09/17/2017 09:13:54 09/19/2017 09:09:31 Spinal stenosis of lumbar region 05575238 M48.062 Lumbosacra l spondylosis without myelopathy 09157032 M47.817 Lumbosacra l radiculitis 69579060 M54.17 Displaceme nt of lumbar intervertebral disc without myelopathy 40825379 M51.26 [id number] Alf Posada MD [facility] PA[facility] [address] [place] [address] 12/25/2018 11:24:23 12/25/2018 16:12:18 Spinal stenosis of lumbar region 73198225 M48.061 Lumbosacra l spondylosis without myelopathy 76858993 M47.817 Lumbosacra l radiculitis 06576697 M54.17 Displaceme nt of lumbar intervertebral disc without myelopathy 69177693 M51.26 [id number] Alf Posada MD [facility] [address] [facility] [place] [address] 01/07/2019 09:10:35 01/08/2019 15:11:02 Spinal stenosis of lumbar region 12621119 M48.062 Lumbosacra l spondylosis without myelopathy 90616112 M47.817 Lumbosacra l radiculitis 27072807 M54.17 Displaceme nt of lumbar intervertebral disc without myelopathy 82414115 M51.26 [id number] Alf Posada MD [facility] [address] [facility] [place] [address] 02/04/2019 14:13:14 02/04/2019 16:10:53 Post-herpetic neuritis 821813119 B02.29 Spinal linda nosis of lumbar region 80740899 M48.061 Lumbosacra l spondylosis without myelopathy 42581942 M47.817 Lumbosacra l radiculitis 93532064 M54.17 Displaceme nt of lumbar intervertebral disc without myelopathy 51752386 M51.26 [id number] Alf Posada MD PAIN OFFICE [address] [facility] [place] [address] 03/31/2019 09:49:03 03/31/2019 18:56:55 Spinal stenosis of lumbar region 50590988 M48.061 Lumbosacra l spondylosis without myelopathy 66128003 M47.817 Lumbosacra l radiculitis 80488053 M54.17 Displaceme nt of lumbar intervertebral disc without myelopathy 76013084 M51.26 [id number] Alf Posada MD [facility] [address] [facility] [place] [address] 05/11/2019 08:51:59 05/11/2019 09:45:44 Inflammation of joint of shoulder region 475110420 M13.819 Spinal linda nosis of lumbar region 97843009 M48.061 [id number] Alf Posada MD PAIN OFFICE [address] [facility] [place] [address] 12/14/2019 13:40:03 12/14/2019 16:14:01 Spinal stenosis of lumbar region 74186211 M48.061 Lumbosacra l spondylosis without myelopathy 83629907 M47.817 Lumbosacra l radiculitis 95340290 M54.17 Displaceme nt of lumbar intervertebral disc without myelopathy 53081225 M51.26 [id number] Alf Posada MD PAIN OFFICE [address] [place] [address] 02/12/2020 11:36:11 02/15/2020 12:09:29 Spinal stenosis of lumbar region 73507781 M48.061 Lumbosacra l spondylosis without myelopathy 14104062 M47.817 Lumbosacra l radiculitis 78356120 M54.17 Displaceme nt of lumbar intervertebral disc without myelopathy 11676478 M51.26 [id number] Alf Posada MD PAIN OFFICE [address] [place] [address] 05/13/2020 08:29:14 05/13/2020 09:22:37 Inflammation of joint of shoulder region 298234606 M13.819 Spinal linda nosis of lumbar region 30114719 M48.061 [id number] Alf Posada MD PAIN OFFICE [address] [place] [address] 05/23/2020 12:46:33 05/23/2020 15:14:52 Inflammation of joint of shoulder region 096527801 M13.819 Spinal linda nosis of lumbar region 99813922 M48.061 [id number] Alf Posada MD PAIN OFFICE [address] [place] [address] 06/15/2020 10:54:32 06/15/2020 14:04:50 Inflammation of joint of shoulder region 559219189 M13.819 Spinal linda nosis of lumbar region 51545971 M48.061 Lumbosacra l spondylosis without myelopathy 10868449 M47.817 Lumbosacra l radiculitis 99747200 M54.17 Displaceme nt of lumbar intervertebral disc without myelopathy 93264724 M51.26 [id number] Alf Posada MD [facility] PA[facility] [address] [facility] [place] [place] [address] 07/13/2020 08:30:09 07/13/2020 11:05:07 Inflammation of joint of shoulder region 769069486 M13.819 Spinal linda nosis of lumbar region 39675052 M48.061 [id number] Alf Posada MD PAIN OFFICE [address] [facility] [place] [address] 09/06/2020 10:30:56 09/08/2020 15:55:16 Inflammation of joint of shoulder region 029810822 M13.819 Spinal linda nosis of lumbar region 56117245 M48.061 Lumbosacra l spondylosis without myelopathy 14231687 M47.817 Lumbosacra l radiculitis 26371304 M54.17 Displaceme nt of lumbar intervertebral disc without myelopathy 45257715 M51.26 [id number] Alf Posada MD PAIN OFFICE [address] [facility] [place] [address] 11/07/2020 08:59:33 11/07/2020 09:55:18 Spinal stenosis of lumbar region 63559657 M48.061 Lumbosacra l spondylosis without myelopathy 98901770 M47.817 Lumbosacra l radiculitis 90307126 M54.17 Displaceme nt of lumbar intervertebral disc without myelopathy 55105101 M51.26 [id number] Alf Posada MD PAIN OFFICE [address] [facility] [place] [address] 01/10/2021 13:47:25 01/12/2021 10:00:57 Inflammation of joint of shoulder region 012743741 M13.819 Spinal linda nosis of lumbar region 75242119 M48.061 Lumbosacra l spondylosis without myelopathy 11995330 M47.817 Lumbosacra l radiculitis 69405759 M54.17 Displaceme nt of lumbar intervertebral disc without myelopathy 23510239 M51.26 [id number] Alf Posada MD PAIN OFFICE [address] [facility] [place] [address] 02/16/2021 08:44:41 02/16/2021 10:52:14 Spinal stenosis of lumbar region 59818246 M48.061 Lumbosacra l spondylosis without myelopathy 35629013 M47.817 Lumbosacra l radiculitis 44186309 M54.17 Displaceme nt of lumbar intervertebral disc without myelopathy 33727684 M51.26 [id number] Alf Posada MD PAIN OFFICE [address] [place] [address] 04/11/2021 13:21:59 04/11/2021 14:01:08 Spinal stenosis of lumbar region 67197234 M48.061 Inflammati on of joint of shoulder region 924946183 M13.819 Lumbosacra l spondylosis without myelopathy 01591435 M47.817 Lumbosacra l radiculitis 92329339 M54.17 Displaceme nt of lumbar intervertebral disc without myelopathy 33494938 M51.26 [id number] Alf Posada MD PAIN OFFICE [address] [place] [place] [address] 06/26/2021 15:22:32 06/30/2021 10:03:11 Spinal stenosis of lumbar region 61280905 M48.061 Lumbosacra l spondylosis without myelopathy 91582030 M47.817 Lumbosacra l radiculitis 10493823 M54.17 Displaceme nt of lumbar intervertebral disc without myelopathy 65873757 M51.26 [id number] Alf Posada MD PAIN OFFICE [address] [place] [address] 07/11/2021 12:54:52 07/11/2021 13:38:15 Spinal stenosis of lumbar region 53454604 M48.061 Inflammati on of joint of shoulder region 499975596 M13.819 Lumbosacra l spondylosis without myelopathy 52585617 M47.817 Lumbosacra l radiculitis 40378738 M54.17 Displaceme nt of lumbar intervertebral disc without myelopathy 43462342 M51.26 [id number] Alf Posada MD [facility] [address] [facility] [place] [place] [address] 10/04/2021 10:46:49 10/04/2021 12:00:47 Spinal stenosis of lumbar region 96702118 M48.061 Inflammati on of joint of shoulder region 700318757 M13.819 Lumbosacra l spondylosis without myelopathy 67302256 M47.817 Lumbosacra l radiculitis 04761367 M54.17 Displaceme nt of lumbar intervertebral disc without myelopathy 37731609 M51.26 [id number] Alf Posada MD PAIN OFFICE [address] [facility] [place] [address] 12/12/2021 11:17:23 12/12/2021 14:28:00 Spinal stenosis of lumbar region 79925880 M48.061 Inflammati on of joint of shoulder region 182797331 M13.819 Lumbosacra l spondylosis without myelopathy 10323469 M47.817 Lumbosacra l radiculitis 55035114 M54.17 Displaceme nt of lumbar intervertebral disc without myelopathy 04590508 M51.26 [id number] Alf Posada MD PAIN OFFICE [address] [facility] [place] [address] 08/21/2022 10:05:44 08/21/2022 11:05:40 Spinal stenosis of lumbar region 76660881 M48.061 Inflammati on of joint of shoulder region 838039939 M13.819 Lumbosacra l spondylosis without myelopathy 47209779 M47.817 Lumbosacra l radiculitis 60845174 M54.17 Displaceme nt of lumbar intervertebral disc without myelopathy 56740482 M51.26 Degenerati on of lumbar intervertebral disc 20881635 M51.36 Health Concerns Section Related Observation LastModified by Organization Detai ls LastModified Time None Recorded Concern Status LastModified by Organization Details LastModified Time None Recorded Advance Directives Directive None Recorded Payers Encounter Date Sequence Insurance Name Policy Number Policy Anders Covered Member ID Anders Member ID Guarantor Name 06/26/2021 1 [place] [facility] Shreya M Gravel [id number] Shreya Gravel 06/26/2021 2 [place] [id number] Shreya Gravel [id number] Shreya Gravel 07/11/2021 1 [place] Shreya M Gravel [id number] Shreya Gravel 07/11/2021 2 [place] [id number] Shreya Gravel [id number] Shreya Gravel 10/04/2021 1 [place] Shreya M Gravel [id number] Shreya Gravel 10/04/2021 2 [place] [id number] Shreya Gravel [id number] Shreya Gravel 12/12/2021 1 [place] Shreya M Gravel [id number] Shreya Gravel 12/12/2021 2 [place] [id number] Shreya Gravel [id number] Shreya Gravel 08/21/2022 1 [place] Shreya M Gravel [id number] Shreya Gravel 08/21/2022 2 [place] [id number] Shreya Gravel [id number] Shreya Gravel Notes Date Note Type [...] bladder or bowel incontinence. Alf Posada MD [address] [place] [address] , [address], [place], [address], [place] [facility] 07/10/2021 08:52:57 07/11/2021 text/html She is here for a lumbar epidural steroid injection under fluoroscopic guidance. Alf Posada MD [address] [facility] , [address], [place], [address], [facility] - [facility] Management 07/12/2021 09:01:37 10/04/2021 text/html She is here for a lumbar epidural steroid injection under fluoroscopic guidance. Alf Posada MD [address] [facility] , [address], [place], [address], [place] [facility] 10/04/2021 12:48:56 12/12/2021 text/html She is here for a lumbar epidural steroid injection under fluoroscopic guidance. Alf Posada MD [address] [facility] , [address], [place], [address], [place] [facility] 12/12/2021 16:13:18 08/21/2022 text/html She is here for a lumbar epidural steroid injection under fluoroscopic guidance. She has stopped eliquis and pletal as instructed for the procedure. Alf Posada MD [address] , [address], [place], [address], [place] [facility] 08/22/2022 08:44:58 OBGyn Episode No OBEpisode recorded.
--- OUTSIDE RECORDS SUMMARY | 2024-12-07 06:20 | XMS_ITS | Data Portability ---
Author Organization [facility] [employer] , Main Office Address [address] [place] [address] Care Team Providers Care Investigator Utility Bill Complaints Name Role Phone DARRIN STYLES 3RD FLOOR [...] and Address Organization Details Recorded Time Cystitis 90685668 Active 2023 FRIEDA ANDERSON [address], [address], [place], [address] , [facility] 14:00:02 Falls 757026709 Active 2023 FRIEDA ANDERSON [address], [address], [place], [address], [place] [facility] 4 14:00:38 Pain of right wrist 6039651562810 00 Active 2023 FRIEDA ANDERSON [address], [address], [place], [address], [place] [facility] 4 14:00:56 Peripheral venous insufficien cy 72289221 Active 2023 FRIEDA ANDERSON [address], [address], [place], [address], [place] - [facility] 4 14:01:26 Chronic diastolic heart failure 854207205 Active 2023 FRIEDA ANDERSON [address], [place], [address], [place] - [facility] 4 14:01:46 Type 2 diabetes mellitus 67611697 Active 2023 FRIEDA ANDERSON [address], [address], [place], [address], [place] - [facility] 4 14:01:55 Paroxysmal atrial flutter 682651020 Active 2023 FRIEDA ANDERSON [address], [place], [address], [place] [facility] 4 14:02:21 Restless legs 09352782 Active 2023 FRIEDA ANDERSON [address], [address], [place], [address], [place] [facility] 4 14:02:38 Chronic obstructive pulmonary disease 49296688 Active 2023 FRIEDA ANDERSON [address], [address], [place], [address], [place] - [facility] 4 14:02:49 Anemia of chronic disease 993501976 Active 2023 FRIEDA ANDERSON [address], [place], [address], [place] [facility] 4 14:02:59 Mixed anxiety and depressive disorder 871484593 Active 2023 CARLTONJOEY MINA, REVIEW SCHEDULING COORDINATOR [address], [place], [address], [facility] 4 14:17:43 Chronic kidney disease 676279336 Active 2023 CARLTONJOEY MINA, [facility] [address], [address], [place], [address], [facility] 4 14:19:41 Hyperlipide nena 11869456 Active 2023 CARLTONJOEY MINA, [facility] [address], [place], [address], [facility] 4 14:26:52 Gastroesoph ageal reflux disease 027976529 Active 2023 CARLTON MINA, REVIEW SCHEDULING COORDINATOR [address], [place], [address], [facility] 4 14:27:49 Chronic back pain 902285117 Active 2023 CRALTONJOEY MINA, [facility] [address] , [address], [place], [address], [facility] 4 14:40:47 Vitamin D deficiency 36561117 Active 2023 CARLTONJOEY MINA, [facility] [address] , [address], [place], [address], [facility] 4 19:41:46 Bradycardia 99495326 Active 2023 CARLTON MINA, [facility] [address] , [address], [place], [address], [facility] 4 19:44:32 Asthenia 01709118 Active 2023 CARLTONJOEY MINA, [facility] [address], [place], [address], [facility] 4 19:53:05 Bleeding from nose 900439962 Active 2023 CARLTON MINA, [facility] [address], [place], [address], [facility] 4 15:36:07 Osteomyelit is 56098817 Active 2023 Naomi Todd MD [address], [place], [address], [facility] 4 17:53:51 Headache 79067150 Active 2023 WISAM SILVA NP [address], [place], [address], [facility] 4 09:49:14 Problem Notes None recorded. Medical Equipment None Reported. Allergies Allergen ID Allergen Name Allergen Category Reaction Reaction Severity Criticality Documentation Date Start Date Code Code System Note Provider Name and Address Organization Details Recorded Time 73633 lisinopri l medicatio n Not available Not available Not available 10/22/2023 26036 RxNorm Not Available Not Available Not Available [...] 122 mm[Hg] 68 mm[Hg] FRIEDA ANDERSON [address], [address], [place], [address], [facility] 4 15:58:33 Date Recorded Body height Heart rate Respiratory rate Body temperature Oxygen saturation Oxygen saturation in Arterial blood by Pulse oximetry Systolic blood pressure Diastolic blood pressure Provider Name and Address Organization Details Last Updated DateTime 4 165.1 cm 74 /min 18 /min 97.2 [degF] 96 % 96 % 128 mm[Hg] 72 mm[Hg] FRIEDA ANDERSON [address], [address], [place], [address], [email or web address] 4 11:29:01 Date Recorded Body height Oxygen saturation Oxygen saturation in Arterial blood by Pulse oximetry Body temperature Respiratory rate Provider Name and Address Organization Details Last Updated DateTime 4 165.1 cm 97 % 97 % 97.9 [degF] 18 /min FRIEDA ANDERSON [address], [address], [place], [address], [email or web address] 4 11:22:24 Date Recorded Body height Heart rate Respiratory rate Oxygen saturation Oxygen saturation in Arterial blood by Pulse oximetry Provider Name and Address Organization Details Last Updated DateTime 4 165.1 cm 70 /min 16 /min 96 % 96 % FRIEDA ANDERSON [address], [address], [place], [address], [email or web address] 4 16:00:47 Date Recorded Body height Systolic blood pressure Diastolic blood pressure Provider Name and Address Organization Details Last Updated DateTime 11/25/2024 165.1 cm 129 mm[Hg] 73 mm[Hg] Rex Bass MD [address], [address], [place], [address], [email or web address] 11/25/2024 11:53:24 Social History Question Answer Notes LastModified by Organizat ion Details LastModified Time Tobacco Smoking Status Former Smoker quit 30 yrs ago FRIEDA ANDERSON [address], [address], [place], [address], [email or web address] 10/24/2023 14:39:11 Do You Have An [...] 10/24/2023 What Is Your Code Status? DNR/DNI [facility] Information not available 10/24/2023 Where Do You Live? Nursinghome Now LTC At [facility], Had Been Living At [place] [facility] Information not available 04/13/2024 Legal Guardian? No Informati on not available 10/24/2023 Do You Have A Medical Power Of Toll Operator? Yes Information not available 10/24/2023 What Was [...] Details Recorded Time Tdap [address] [facility]23 11:11:29 Pneumococcal conjugate PCV [address] [facility] 12/27/2023 11:11:41 Influenza, adjuvanted, quadrivalent, PF [address] [facility] 12/27/2023 11:11:59 COVID-19, mRNA, LNP-S, bivalent, PF, 30 mcg/0.3 mL dose 1 completed Flor fountain [facility] 12/27/2023 11:12:12 COVID-19, mRNA, LNP-S, bivalent, PF, 30 mcg/0.3 mL dose 1 completed Flor fountain, [facility] 12/27/2023 11:12:20 COVID-19, mRNA, LNP-S, bivalent, PF, 30 mcg/0.3 mL dose 1 completed Flor fountain, [facility] 12/27/2023 11:12:29 COVID-19, mRNA, LNP-S, bivalent, PF, 30 mcg/0.3 mL dose 2 completed Flor fountain, [facility] 12/27/2023 11:12:48 Past Encounters Encounter ID Performer Location Encounter Start Date Encounter Closed Date Diagnosis/Indication Diagnosis SNOMED-CT Code Diagnosis ICD10 Code Diagnosis Note [id number] FRIEDA ANDERSON [address] [place] [address] 10/23/2023 08:21:08 10/28/2023 15:39:59 Cystitis 93370773 N30.90 With MDROInitia lly with Vanco and cefepime however cultures growing MDRO Klebsiella Started meropenem 1 g q12 for 7 days.start ed 10/19 for 7 full days of treatment to end 10/26.probi otic added Falls 430242926 R29.6 likely multifacto rial from neuropathy , frailty, arthritis and LE edemaCT negative for any fractures. CT Head/Brain W/O Contrast negativeIn itiated safety precaution per facility protocolPT /OT eval and tx. Peripheral venous insufficiency 91999454 I87.2 Venous insufficie ncy of both lower extremitie sDoppler LLE no DVT, symmetric erythema without increased warmth or tenderness , appears similar to previous picture taken, low suspicion for superimpos ed cellulitis Chronic di astolic heart failure 988435895 I50.32 preserved EFeuvolemi ctorsemide held in acute care d/t hypotensio n and bradycardi c 50'smonito r BP and need to restartmon itor weights Chronic ob structive pulmonary disease 77667152 J44.9 Albuterol Sulfate Nebulizati on Solution (2.5 MG/3ML) Q6 prnAdvair Dydtnj392- 50 mcg Q12 Restless legs 93088636 G 25.81 ROPINIRole HCl Tablet 2 MG BID Type 2 jr betes mellitus 82026389 E11.21 continue monitor glucose,Li spro SSI coverageGa bapentin Capsule 300 MG at bedtime for neuropathy pain.trama dol 25 mg q12 prn Paroxysmal atrial flutter 166970560 I48.92 not on anticoagAm iodarone HCl Tablet 200 MG dailymonit or HR Mixed anxi ety and depressive disorder 461863124 F41.8 Escitalopr am Oxalate Tablet 30 mg dailymonit or for mood and behavorial changes. Anemia of chronic disease 843344670 D63.8 Ferrous Sulfate Tablet 325 dailymonit or labs prn Hyperlipidemia 11620417 E78.5 Atorvastat in 20 mg dailymonit or labs Gastroesop hageal reflux disease 756887978 K21.9 Pantoprazo le40 mg dailymonit or for gi upset. Chronic back pain 498508 002 G89.29 tramadol 25 mg Q12 prngabapen tin 300 mg at hs Vitamin D deficiency 347 70409 E55.9 Cholecalci ferol 2000 UNIT daily Pain of right wrist 3169 587451 96926 M25.531 x-ray was ordered which was negative.P T/OT eval and tx Bradycardia 95925632 R00 .1 in acute care HR as low as 40snormal IA/QRS/QTc prolongati on..T nonspecifi c isolated T wave inversions on single lead V2 were present on recent study from 07/19/2023 . No evidence of acute ischemic changes. Chronic ki dney disease 472097516 N18.9 Renal function is at baselinemo nitor labsavoid nephrotoxi c drugs Asthenia 65660954 R53.1 hx of multiple fallsambul ates with walkerPT/O T eval and treat [id number] MD DARRIN Perry JENSEN [address] [place] [address] [place] [address] 10/24/2023 16:17:28 11/06/2023 11:12:59 Cystitis 96002479 N30.00 Continue meropenem 1 g q 12 hrs to complete 7 d course on 10/26.Monit or for recurrent sxs. Falls 691271881 R29.6 Likely multifacto rial from neuropathy , frailty, arthritis and LE edemaVery deconditio christoph.Needs PT/OT for strengthen ing, balance, gait training, safety and function.C ontinue fall precaution s.Monitor for safety. Peripheral venous insufficiency 16330351 I87.2 Almost at baseline per pt.Continu e local care and elevation. Chronic di astolic heart failure 021640078 I50.32 Appears euvolemic. Monitor for need for diuretics. Monitor resp. status, fluid status, wts and labs. Chronic ob structive pulmonary disease 42543710 J43.8 No current sxs.Contin ue Advair 250/50 BID and albuterol nebs q 6 hrs prnMonitor resp status. Restless legs 17078272 G 25.81 Continue ropinirole 2 mg BIDMonitor sxs. Type 2 jr betes mellitus 62895750 E11.21 Diet controlled .Sugar <150 yest, not checked previously .Continue gabapentin 300 MG qhs and tramadol q 12 hrs prn for neuropathy Monitor fingerstic ks BID x 1 wk with SSI, d/c if not needing coverage. Paroxysmal atrial flutter 744894632 I48.92 Rate in good control on amiodarone 200 mg qdNot on AC due to age and fall riskMonito r HR Mixed anxi ety and depressive disorder 942493902 F41.8 Mood down today due to concerns about living situation. Continue escitalopr am 30 mg qdMonitor mood.Consu lt psych prn Anemia of chronic disease 365907318 D63.8 Continue FeSO4 325 mg qd with vitamin C 250 mg qd for absorption .Monitor labs Hyperlipidemia 59175934 E78.49 Continue atorvastat in 20 mg qdMonitor labs yearly Gastroesop hageal reflux disease 998914241 K21.9 No current sxs.Contin ue pantoprazo le 40 mg qdMonitor sxs Chronic ki dney disease 519240177 N18.9 In hx, but renal function WNL yest.Cindy nue to avoid nephrotoxi c meds as able.Monit or labs.Renal consult prn. Chronic back pain 522133 002 G89.29 Continue tramadol 25 mg q 12 hrs prn and gabapentin 300 mg qhsMonitor sxs. [id number] FRIEDA ANDERSON [address] [place] [address] rd [place] [address] 10/29/2023 07:42:54 11/01/2023 08:26:34 Cystitis 46335062 N30.90 With MDROInitia lly with Vanco and cefepime however cultures growing MDRO Klebsiella Started meropenem 1 g q12 for 7 days.start ed 10/19 for 7 full days of treatment to end 10/26.- completed denies any dysuriapro biotic added Falls 749851429 R29.6 continue to work with PT/OT for strengthen inglikely multifacto rial from neuropathy , frailty, arthritis and LE edemaCT negative for any fractures. CT Head/Brain W/O Contrast negativeIn itiated safety precaution per facility protocol Peripheral venous insufficiency 65891093 I87.2 BLE edema left greater than right Venous insufficie ncy of both lower extremitie sDoppler LLE no DVT, symmetric erythema without increased warmth or tenderness , appears similar to previous picture taken, low suspicion for superimpos ed cellulitis Chronic di astolic heart failure 683410319 I50.32 preserved EFeuvolemi ctorsemide held in acute care d/t hypotensio n and bradycardi c 50'smonito r BP and need to restartmon itor weights Chronic ob structive pulmonary disease 43927783 J44.9 Albuterol Sulfate Nebulizati on Solution (2.5 MG/3ML) Q6 prnAdvair Ngzphx823- 50 mcg Q12 Restless legs 08523105 G 25.81 ROPINIRole HCl Tablet 2 MG BID Type 2 jr betes mellitus 53619660 E11.21 continue monitor glucose,Li spro SSI coverageGa bapentin Capsule 300 MG at bedtime for neuropathy pain.trama dol 25 mg q12 prn Paroxysmal atrial flutter 974346969 I48.92 not on anticoagAm iodarone HCl Tablet 200 MG dailymonit or HR Mixed anxi ety and depressive disorder 076664237 F41.8 Escitalopr am Oxalate Tablet 30 mg dailymonit or for mood and behavorial changes. Anemia of chronic disease 525187597 D63.8 Ferrous Sulfate Tablet 325 dailymonit or labs prn Hyperlipidemia 93926182 E78.5 Atorvastat in 20 mg dailymonit or labs Gastroesop hageal reflux disease 004289969 K21.9 Pantoprazo le40 mg dailymonit or for gi upset. Chronic back pain 885616 002 G89.29 tramadol 25 mg Q12 prngabapen tin 300 mg at hs Vitamin D deficiency 347 22620 E55.9 Cholecalci ferol 2000 UNIT daily Pain of right wrist 3169 480755 11640 M25.531 x-ray was ordered which was negative.P T/OT eval and tx Bradycardia 74191961 R00 .1 in acute care HR as low as 40snormal IA/QRS/QTc prolongati on..T nonspecifi c isolated T wave inversions on single lead V2 were present on recent study from 07/19/2023 . No evidence of acute ischemic changes. Chronic ki dney disease 684223468 N18.9 Renal function is at baselinemo nitor labsavoid nephrotoxi c drugs Asthenia 58168241 R53.1 hx of multiple fallsambul ates with walkerPT/O T eval and treat [id number] FRIEDA ANDERSON [address] [address] 11/01/2023 08:04:11 11/06/2023 11:37:03 Cystitis 80846395 N30.90 With MDROInitia lly with Vanco and cefepime however cultures growing MDRO Klebsiella Started meropenem 1 g q12 for 7 days.start ed 10/19 for 7 full days of treatment to end 10/26.- completed denies any dysuriapro biotic added Pruritus of vagina [address]708 003 L29.3 Reports vaginal itchiness for over [...] BID for 7 days and re eval. [id number] FRIEDA ANDERSON [address] [place] [address] 11/04/2023 12:13:42 11/06/2023 12:50:39 Falls 021457779 R29.6 see/HPiwit nessed fallwith injury/lac eration above left eye.no LOC Facial laceration 791183 008 S01.81XA above left eye/about 2 cm in lengthblee ding controlled , wrapped in gauze dressing. [id number] FRIEDA ANDERSON [address] [address] 11/06/2023 09:19:58 11/13/2023 12:17:34 Falls 601030993 R29.6 see/HPiwit nessed fallwith injury/lac eration above left eye.no LOCContinu e PT/OT Facial laceration 639998 008 S01.81XA above left eye/about 2 cm in lengthappe ars to be about 10-12 small dissolvabl e sutures in placedenie s any visual changes or headache.n ursing to monitor healing Pruritus of vagina 01552 003 L29.3 Reports vaginal itchiness for over [...] days and re eval. Chronic back pain 311830 002 G89.29 denies any new discomfort post falltramad ol 25 mg Q12 prngabapen tin 300 mg at hs Asthenia 28737871 R53.1 hx of multiple fallsambul ates with walkerPT/O T continue [id number] FRIEDA ANDERSON [address] [address] 11/08/2023 13:54:21 11/13/2023 13:10:32 Falls 203754448 R29.6 on 11/04/23wit nessed fallwith injury/lac eration above left eye.no LOCContinu e PT/OT Facial laceration 579284 008 S01.81XA above left eye/about 2 cm in lengthappe ars to be about 10-12 small di-solvabl e sutures in placedenie s any visual changes or headache.n ursing to monitor healing Pruritus of vagina 00924 003 L29.3 Reports vaginal itchiness for over [...] assure med is applied. Chronic back pain 724674 002 G89.29 denies any new discomfort post falltramad ol 25 mg Q12 prngabapen tin 300 mg at hs Asthenia 58564582 R53.1 hx of multiple fallsambul ates with walkerPT/O T continue [id number] FRIEDA ANDERSON [address] [address] 11/13/2023 10:59:21 11/15/2023 09:29:54 Falls 102926454 R29.6 on 11/04/23wit nessed fallwith injury/lac eration above left eye.no LOCContinu e PT/OT Facial laceration 617162 008 S01.81XA healingabo ve left eye/about 2 cm in lengthappe ars to be about 10-12 small di-solvabl e sutures in placedenie s any visual changes or headache.n ursing to monitor healing Pruritus of vagina 95424 003 L29.3 improving, continues with triamcinol one topical cream BID Chronic back pain 514647 002 G89.29 denies any new discomfort post falltramad ol 25 mg Q12 prngabapen tin 300 mg at hs Asthenia 06610103 R53.1 hx of multiple fallsambul ates with walkerPT/O T continues [id number] FRIEDA ANDERSON [address] [address] 11/18/2023 07:58:48 11/21/2023 13:26:13 Falls 940914759 R29.6 on 11/04/23wit nessed fallwith injury/lac eration above left eye.no LOCContinu e PT/OT Facial laceration 635931 008 S01.81XA healingabo ve left eye/about 2 cm in lengthappe ars to be about 10-12 small di-solvabl e sutures in placedenie s any visual changes or headache.n ursing to monitor healing Pruritus of vagina 21023 003 L29.3 improving, continues with triamcinol one topical cream BID Chronic back pain 251873 002 G89.29 denies any new discomfort post falltramad ol 25 mg Q12 prngabapen tin 300 mg at hs Asthenia 34286030 R53.1 hx of multiple fallsambul ates with walkerPT/O T continues [id number] CARLTON MINA[address] [address] 11/21/2023 13:49:57 11/25/2023 12:31:48 Falls 788198282 R29.6 on 11/04/23wit nessed fallwith injury/lac eration above left eye.no LOCContinu e PT/OT Facial laceration 305685 008 S01.81XA 11/04 s/p fall for laceration above left eye.healin g no s/sx of infectiona rolan left eye/about 2 cm in lengthappe ars to be about 10-12 small di-solvabl e sutures in placedenie s any visual changes or headache.n ursing to monitor healing Pruritus of vagina 76137 003 L29.3 improving, continues with triamcinol one topical cream BID Chronic back pain 006461 002 G89.29 denies any new discomfort post falltramad ol 25 mg Q12 prngabapen tin 300 mg at hs Asthenia 07817767 R53.1 hx of multiple fallsambul ates with walkerPT/O T continues [id number] CARLTON GONG[address] [address] 11/26/2023 07:45:18 11/28/2023 10:55:36 Falls 367847676 R29.6 on 11/04/23wit nessed fallwith injury/lac eration above left eye.no LOCContinu e PT/OT Facial laceration 069234 008 S01.81XA 11/04 s/p fall for laceration above left eye.healin g no s/sx of infectiona rolan left eye/about 2 cm in lengthappe ars to be about 10-12 small di-solvabl e sutures in placedenie s any visual changes or headache.n ursing to monitor healing Pruritus of vagina 31284 003 L29.3 triamcinol one topical cream BIDkeep area clean and dry. Chronic back pain 387168 002 G89.29 tramadol 25 mg Q12 prngabapen tin 300 mg at hs Asthenia 08676500 R53.1 hx of multiple fallsambul ates with walkerPT/O T continues [id number] FRIEDA ANDERSON [address] [address] 11/29/2023 08:06:37 12/03/2023 11:20:10 Falls 213259403 R29.6 on 11/04/23wit nessed fallwith injury/lac eration above left eye.no LOCContinu e PT/OT Facial laceration 195956 008 S01.81XA healed11/04 s/p fall for laceration above left eye.above left eye/about 2 cm in lengthdeni es any visual changes or headache. Pruritus of vagina 50284 003 L29.3 triamcinol one topical cream BIDkeep area clean and dry. Chronic back pain 322733 002 G89.29 tramadol 25 mg Q12 prngabapen tin 300 mg at hs Asthenia 47854385 R53.1 hx of multiple fallsambul ates with walkerPT/O T continues [id number] FRIEDA ANDERSON [address] [address] 12/04/2023 07:53:49 12/10/2023 10:21:37 Falls 574214432 R29.6 on 11/04/23wit nessed fallwith injury/lac eration above left eye.no LOCContinu e PT/OT Facial laceration 273026 008 S01.81XA healed11/04 s/p fall for laceration above left eye.above left eye/about 2 cm in lengthdeni es any visual changes or headache. Pruritus of vagina 86566 003 L29.3 triamcinol one topical cream BIDkeep area clean and dry. Chronic back pain 699981 002 G89.29 tramadol 25 mg Q12 prngabapen tin 300 mg at hs Asthenia 16276232 R53.1 hx of multiple fallsambul ates with walkerPT/O T continues Cellulitis of right lower limb 2535169886 6645962 L03.115 see hpistarted keflex on 11/30/23 for 7 days with probiotic for 10 daysencour aged to elevated lower extremitie s to elevate edemamonit or for resolution [id number] FRIEDA ANDERSON [address] [address] 12/11/2023 10:06:59 12/13/2023 13:01:47 Falls 910425949 R29.6 no recent falls reported Facial laceration 263960 008 S01.81XA healed11/04 s/p fall for laceration above left eye.above left eye/about 2 cm in lengthdeni es any visual changes or headache. Pruritus of vagina 80433 003 L29.3 triamcinol one topical cream BIDkeep area clean and dry. Chronic back pain 211195 002 G89.29 tramadol 25 mg Q12 prngabapen tin 300 mg at hs Cellulitis of right lower limb 2521120538 7972359 L03.115 resolved. [id number] FRIEDA ANDERSON [address] [address] 12/18/2023 09:20:38 12/20/2023 14:10:33 Chronic diastolic heart failure 602119192 I50.32 preserved EFeuvolemi ctorsemide held in acute care d/t hypotensio n and bradycardi c 50'smonito r BP and need to restartmon itor weights Mixed anxi ety and depressive disorder 230495278 F41.8 stable and pleasantEs citalopram Oxalate Tablet 30 mg dailymonit or for mood and behavorial changes. Type 2 jr betes mellitus 85817329 E11.21 continue monitor glucose,Li spro SSI coverageGa bapentin Capsule 300 MG at bedtime for neuropathy pain.trama dol 25 mg q12 prn [id number] FRIEDA ANDERSON [address] [address] 12/25/2023 11:16:29 12/30/2023 16:09:32 Chronic diastolic heart failure 136256647 I50.32 preserved EFBLE +1was on torsemide but was d/c in acute caremonito r weights- [facility] Mixed anxi ety and depressive disorder 257669077 F41.8 stable and pleasantEs citalopram Oxalate Tablet 30 mg dailymonit or for mood and behavorial changes. Type 2 jr betes mellitus 09375345 E11.21 continue monitor glucose,Li spro SSI coverageGa bapentin Capsule 300 MG at bedtime for neuropathy pain.trama dol 25 mg q12 prn [id number] Naomi Todd MD [address] [place] [address] 12/26/2023 19:19:22 01/31/2024 14:21:17 Cystitis 36401236 N30.00 Completed course of meropenem 1 g q 12 hrs on 10/26.Monit or for recurrent sxs. Falls 213306015 R29.6 Continues to be a high fall risk and needs CG and sometimes an assist for transfers. No longer getting acute PT/OT services, restart as able.Cindy nue fall precaution s.Monitor for safety. Peripheral venous insufficiency 70079753 I87.2 No current sxs.Contin ue local care and elevation. Chronic di astolic heart failure 201622002 I50.32 Appears euvolemic. Monitor for need for diuretics. Monitor resp. status, fluid status, wts and labs. Chronic ob structive pulmonary disease 11817488 J43.8 Continues with no sxs.Contin ue Advair 250/50 BID and albuterol nebs q 6 hrs prnMonitor resp status. Type 2 jr betes mellitus 79661070 E11.21 Sugars were all <150 when checked for 3 days.Cindy nue gabapentin 300 MG qhs and tramadol q 12 hrs prn for neuropathy Monitor fingerstic ks prn and HgA1C q 3-6 months Paroxysmal atrial flutter 553298224 I48.92 Rate remains in good control on amiodarone 200 mg qdNo AC due to age and fall riskMonito r HR Restless legs 21556608 G 25.81 Continue ropinirole 2 mg BIDMonitor sxs. Mixed anxi ety and depressive disorder 777008471 F41.8 Mood stableCont inue escitalopr am 30 mg qdMonitor mood.Consu lt psych prn Anemia of chronic disease 766296370 D63.8 Hgb has been stable.Con tinue FeSO4 325 mg qd with vitamin C 250 mg qd for absorption .Monitor labs Hyperlipidemia 45772394 E78.49 Continue atorvastat in 20 mg qdMonitor labs yearly Gastroesop hageal reflux disease 793137885 K21.9 No current sxs.Contin ue pantoprazo le 40 mg qdMonitor sxs Chronic ki dney disease 310373807 N18.1 Renal function remains WNLContinu e to avoid nephrotoxi c meds as able.Monit or labs.Renal consult prn. Chronic back pain 143541 002 G89.29 Continue tramadol 25 mg q 12 hrs prn and gabapentin 300 mg qhsMonitor sxs. [id number] FRIEDA ANDERSON [address] [address] 01/01/2024 08:18:43 01/06/2024 15:39:22 Chronic diastolic heart failure 443208501 I50.32 preserved EFBLE +1was on torsemide but was d/c in acute caremonito r weights- [facility] to [facility] Mixed anxi ety and depressive disorder 670552541 F41.8 stable and pleasantEs citalopram Oxalate Tablet 30 mg dailymonit or for mood and behavorial changes. Type 2 jr betes mellitus 36910661 E11.21 continue monitor glucose,Li spro SSI coverageGa bapentin Capsule 300 MG at bedtime for neuropathy pain.trama dol 25 mg q12 prn Spasm 17558987 R25.2 12/31/23 nursing reported pt was having left upper leg/buttoc k pain/spasm tramadol changed from q12 to q6 and robaxin 500 mg q 6 prn addedtoday pt states that medication was effectivew ill monitor for worsening sx [id number] FRIEDA ANDERSON JENSEN [address] [place] [phone] 5 01/08/2024 13:26:41 01/10/2024 11:20:05 Chronic diastolic heart failure 083180728 I50.32 no weight gain notedconti nue furosemide 10 mg dailymonit or labs , weightsmon itor for cardiopulm onary sx 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 Type 2 jr betes mellitus 92174345 E11.21 continue monitor glucose,co ntinue Lispro SSI coverageco ntinue Gabapentin Capsule 300 MG at bedtime for neuropathy pain.cindy nue tramadol 50 mg q 8 prn Spasm 37079893 R25.2 to LLE and glutealpai n has improvedRo baxin 500 mg discontinu e -it was ordered for short term use onlycontin ue tramadol 50 mg prn [id number] FRIEDA ANDERSON [address] [address] 01/15/2024 09:55:29 01/27/2024 16:00:52 Cervical radiculopathy 61170370 M54.12 start diclofenac gel daily and q8 prncontinu e tramadol 50 mg Q6 prncontinu e gabapentin 300 mg at hs add 300 mg QDrefer to physical therapy for eval and tx [id number] FRIEDA ANDERSON [address] [address] 5 01/22/2024 09:25:19 01/28/2024 11:32:54 Cervical radiculopathy 33332601 M54.12 continue diclofenac gel daily and q8 prncontinu e tramadol 50 mg Q6 prncontinu e gabapentin 300 mg at hs add 300 mg QDper therapy patient neck pain is chronic and she was previously treated and recommende d Chronic di astolic heart failure 310077660 I50.32 monitor labs , weights , edemamonit or for cardiopulm onary sxencourag ed leg elevation/ wraps as needed. Gastroesop hageal reflux disease 600942375 K21.9 Pantoprazo le40 mg dailymonit or for gi upset. Mixed anxi ety and depressive disorder 138786061 F41.8 continue Escitalopr am Oxalate Tablet 30 mg dailymonit or for mood and behavorial changes. Type 2 jr betes mellitus 91975007 E11.21 continue monitor glucose,co ntinue Lispro SSI coverageco ntinue Gabapentin Capsule 300 MG at bedtime for neuropathy pain.cindy nue tramadol 50 mg q 8 prn [id number] FRIEDA ANDERSON [address] [address] 5 01/27/2024 10:53:32 02/17/2024 12:46:54 Cervical radiculopathy 84623752 M54.12 continue diclofenac gel daily and q8 prncontinu e tramadol 50 mg Q6 prncontinu e gabapentin 300 mg at hs add 300 mg QD Chronic di astolic heart failure 904429828 I50.32 monitor labs , weights , edemamonit or for cardiopulm onary sxencourag ed leg elevation/ wraps as needed. Gastroesop hageal reflux disease 676280889 K21.9 Pantoprazo le40 mg dailymonit or for gi upset. Mixed anxi ety and depressive disorder 139688875 F41.8 continue Escitalopr am Oxalate Tablet 30 mg dailymonit or for mood and behavorial changes. Type 2 jr betes mellitus 73554714 E11.21 bgl have been stablecont inue monitor glucose,co ntinue Lispro SSI coverageco ntinue Gabapentin Capsule 300 MG at bedtime for neuropathy pain.cindy nue tramadol 50 mg q 8 prn Falls 728105980 R29.6 no recent fallsConti nues to be a high fall risk and needs CG and sometimes an assist for transfers. she has reduce functional mobility to left lower extremity due to pain in her ankle.Alba ent would benefit from an AFO to provide support to LLE/ankle and reduce pain. [id number] FRIEDA ANDERSON [address] [place] [phone] 5 01/30/2024 10:23:09 02/04/2024 14:43:29 Bleeding from nose 341828700 R04.0 see hpistart afrin 2 spray to right nares q12 x 5days.janice tor for recurrence monitor BP/rebound congestion [id number] FRIEDA ANDERSON JENSEN [address] [place] [phone] 5 02/05/2024 09:31:19 02/11/2024 09:17:30 Bleeding from nose 756229221 R04.0 resolved. Cervical radiculopathy 18857030 M54.12 continue diclofenac gel daily and q8 prncontinu e tramadol 50 mg Q6 prncontinu e gabapentin 300 mg at hs add 300 mg QDper therapy patient neck pain is chronic and she was previously treated and recommende d Chronic di astolic heart failure 438674810 I50.32 monitor labs , weights , edemamonit or for cardiopulm onary sxencourag ed leg elevation/ wraps as needed. Gastroesop hageal reflux disease 462377838 K21.9 Pantoprazo le40 mg dailymonit or for gi upset. Mixed anxi ety and depressive disorder 047096559 F41.8 continue Escitalopr am Oxalate Tablet 30 mg dailymonit or for mood and behavorial changes. Type 2 jr betes mellitus 23583020 E11.21 continue monitor glucose,co ntinue Lispro SSI coverageco ntinue Gabapentin Capsule 300 MG at bedtime for neuropathy pain.cindy nue tramadol 50 mg q 8 prn [id number] MD DARRIN Perry [address] [place] [address] [phone] 5 02/28/2024 13:56:25 03/10/2024 11:09:37 Pain in left foot 0234227357 90715 M79.672 With new deformity of left great toe, with rubbing and irritation between toes and possible early cellulitis .Will start doxy 100 mg BID x 7 days with probiotic BIDWill start warm soaks with epsom salts BID for 15 .Elevat e as much as possible.G auze between toes to protect.Po diatry consult, if healthdriv e not coming next week, will consult Dr. Tanner [phone] can have wound care see her for further advice.Con tinue APAP 650 mg q 6 hrs prn and tramadol 50 mg q 8 hrs prn for pain. Diarrhea 41942360 R19.7 Only has happened one time so far, possibly from stress.Ord ered imodium prnMonitor [id number] FRIEDA ANDERSON [facility] [address] [place] [phone] 5 03/04/2024 14:57:51 03/10/2024 11:43:05 Pain in left foot 6118083502 61099 M79.672 deformity of left great toe, with [...] for pain. Blister of toe without infection 95509099 S90.425A continue warm soaks as aboveclean se left 2nd toe with soap and warm water, hydrogen peroxideap ply petroleum and cover with gauze or non stick dressing daily and prnmonitor for healing. [id number] FRIEDA ANDERSON [facility] [address] [place] [address] [phone] 5 03/06/2024 14:42:26 03/10/2024 12:16:05 Mixed anxiety and depressive disorder 811314592 F41.8 continue Escitalopr am Oxalate Tablet 30 mg dailywill adjust trazodone and increased from 12.5 mg to 25 mg scheduled at HS per psych rec.and continue prn trazodone 12.5 mg bid prn, anxiety for 14 days.monit or for mood and behavorial changes. [id number] FRIEDA ANDERSON [address] [phone] 5 03/10/2024 10:17:01 03/16/2024 15:45:17 Pain in left foot 3538481027 41199 M79.672 deformity of left great toe, with [...] 4 days. Blister of toe without infection 09162798 S90.425A continue warm soaks as aboveclean se left 2nd toe with soap and warm water, hydrogen peroxidedr essing changes to Alginate/D CD QD [id number] FRIEDA ANDERSON [address] [phone] 03/16/2024 09:19:11 03/19/2024 16:19:43 Pain in left foot 1820266096 90261 M79.672 baseline deformity due to hammer toeabx [...] infection. Mixed anxi ety and depressive disorder 296176914 F41.8 continue Escitalopr am Oxalate Tablet 30 mg dailyrepor ts although medication s have been helpful that she continues with difficultl y falling asleepand evening anxiety.[facility] 12.5 mg q12 prnmonitor for mood and behavorial changes. [id number] FRIEDA ANDERSON [address] [phone] 5 03/17/2024 10:40:42 03/20/2024 08:44:03 Bleeding from nose 393863972 R04.0 minor nasal bleeding after blowing her nosewill discussed avoiding nose blowing, gently sniff insteadavo id picking nose or rubbing noseafrin nasal 1 spray BID prnsaline nasal spray BID Pain of to e of left foot 8193941281 60349 M79.675 reports pain to left great toe and second great toenailini tially flinching on exam when toe(s) were touched , states pain requesting toenail to be cut on 2ndshe provided clippers, I trimmed and file all toenail, she reports toes feeling much betterther e was no observatio n of facial grimacing, flinching or pulling away during procedure. [id number] Naomi Todd MD [address] [place] [phone] 03/30/2024 16:40:06 04/01/2024 10:48:39 Falls 227095291 R29.6 Continues to be a high fall risk.Getti ng OT for mobility and safety, primarily wheelchair level.Cont inue fall precaution s.Monitor for safety. Peripheral venous insufficiency 34273516 I87.2 No current sxs.Contin ue local care and elevation. Chronic di astolic heart failure 383220412 I50.32 Appears euvolemic. Continue furosemide 10 mg qdMonitor resp. status, fluid status, wts and labs. Chronic ob structive pulmonary disease 53147121 J43.8 Continues with no sxs.Contin ue Advair 250/50 BID and albuterol nebs q 6 hrs prnMonitor resp status. Type 2 jr betes mellitus 29189526 E11.21 Stable on no meds.Last HgA1C was 6.1 in 06/2023.Con tinue gabapentin 300 MG qhs and tramadol qhs scheduled and BID prn for neuropathy Monitor fingerstic ks prn and HgA1C q 3-6 months Paroxysmal atrial flutter 404693333 I48.92 Rate remains in good control on amiodarone 200 mg qdNo AC due to age and fall riskMonito r HR Restless legs 06126752 G 25.81 Continue ropinirole 2 mg BIDMonitor sxs. Mixed anxi ety and depressive disorder 244364211 F41.8 Mood sl. down due to pain not improving. Continue escitalopr am 30 mg qdMonitor mood.Consu lt psych prn Anemia of chronic disease 548168019 D63.8 Hgb remains stable.Con tinue FeSO4 325 mg qd with vitamin C 250 mg qd for absorption .Monitor labs Hyperlipidemia 20094804 E78.49 Continue atorvastat in 20 mg qdMonitor labs yearly Gastroesop hageal reflux disease 796066202 K21.9 No current sxs.Contin ue pantoprazo le 40 mg qdMonitor sxs Chronic ki dney disease 076827069 N18.2 Renal function remains stableCont inue to avoid nephrotoxi c meds as able.Monit or labs.Renal consult prn. Chronic back pain 223235 002 G89.29 Continue meds as above.Janice tor sxs. Bleeding from nose 36084 6005 R04.0 Resolved. Pain of to e of left foot 9854160756 61491 M79.675 No improvemen t since toenails cut on 03/17.Left 2nd toe still red and tender.[facility] have nursing set up appt with Dr. Lu Holder who has offices in [facility] and [place]. [place] # is [phone] local care until then. Using padding between toes to keep the pressure off.Monito r for signs of infection. Will schedule hs tramadol and keep 50 mg BID prn [id number] FRIEDA ANDERSON JENSEN [address] [place] [phone] 5 04/03/2024 11:03:23 04/28/2024 07:31:02 Cellulitis of foot 064481464 L03.119 left footsuspec gloria do to sx.recentl y treated for cellulitis left great toe with doxycyclin ewill start cephalexin 250 mg Q 6 hr for 5 days.will add probiotic BID for 7 daysmonito r for resolution . [id number] MD DARRIN Perry JENSEN [address] [place] [phone] 5 04/13/2024 17:19:14 04/28/2024 08:01:43 Osteomyelitis 25806379 M86.272 Continue ertapenem 1 gm IV qd [...] Dr. Lu Holder who has offices in [facility] and [place]. [place] # is Falls [id number] R29.6 Continues to be a high fall risk.Able to restart rehab after hospitaliz ation.Need s PT/OT for strengthen ing, balance, gait training, safety and function.C ontinue fall precaution s.Monitor for safety. Chronic di astolic heart failure 076699006 I50.32 Appears euvolemic. Continue furosemide 10 mg qdMonitor resp. status, fluid status, wts and labs. Chronic ob structive pulmonary disease 36246926 J43.8 Continues with no sxs.Contin ue Advair 250/50 BID and albuterol nebs q 6 hrs prnMonitor resp status. Type 2 jr betes mellitus 80605708 E11.21 Sugars inpt were all <100Last HgA1C was 6.1 in 06/2023.Con tinue gabapentin 300 MG qhs and other pain meds as above for neuropathy .Monitor fingerstic ks prn and HgA1C q 3-6 months Paroxysmal atrial flutter 897409134 I48.92 Rate remains in good control on amiodarone 200 mg qdNo AC due to age and fall riskMonito r HR Restless legs 66250462 G 25.81 Continue ropinirole 2 mg BIDMonitor sxs. Mixed anxi ety and depressive disorder 514808982 F41.8 Mood sl. down due to pain not improving. Continue escitalopr am 30 mg qd, trazadone 25 mg qhs and 12.5 mg BID prn.Monito r mood.Consu lt psych prn Anemia of chronic disease 089621764 D63.8 Hgb remains stable.Con tinue FeSO4 325 mg qd with vitamin C 250 mg qd for absorption .Monitor labs Hyperlipidemia 61561485 E78.49 Continue atorvastat in 20 mg qdMonitor labs yearly Gastroesop hageal reflux disease 482479048 K21.9 No current sxs.Contin ue pantoprazo le 40 mg qdMonitor sxs Chronic ki dney disease 780915815 N18.2 Renal function remains stableCont inue to avoid nephrotoxi c meds as able.Monit or labs.Renal consult prn. Chronic back pain 619228 002 G89.29 Continue meds as above.Janice tor sxs. Peripheral venous insufficiency 08561579 I87.2 No current sxs.Contin ue local care and elevation. [id number] FRIEDA ANDERSON JENSEN [address] [place] [address] 5 04/16/2024 08:54:52 04/28/2024 08:26:12 Osteomyelitis 55058836 M86.272 Continue ertapenem 1 gm IV qd [...] Dr. Lu Holder who has offices in [facility], [place] and [place]. [place] # is [place] [id number] R29.6 Continues to be a high fall risk.Able to restart rehab after hospitaliz ation.Need s PT/OT for strengthen ing, balance, gait training, safety and function.C ontinue fall precaution s.Monitor for safety. Chronic di astolic heart failure 933300543 I50.32 Appears euvolemic. Continue furosemide 10 mg qdMonitor resp. status, fluid status, wts and labs. Chronic ob structive pulmonary disease 60027383 J43.8 Continues with no sxs.Contin ue Advair 250/50 BID and albuterol nebs q 6 hrs prnMonitor resp status. Paroxysmal atrial flutter 569773410 I48.92 Rate remains in good control on amiodarone 200 mg qdNo AC due to age and fall riskMonito r HR Restless legs 74754521 G 25.81 Continue ropinirole 2 mg BIDMonitor sxs. Mixed anxi ety and depressive disorder 772515050 F41.8 Continue escitalopr am 30 mg qd, trazadone 25 mg qhs and 12.5 mg BID prn.Monito r mood.Consu lt psych prn Anemia of chronic disease 717017868 D63.8 Continue FeSO4 325 mg qd with vitamin C 250 mg qd for absorption .Monitor labs Hyperlipidemia 01320416 E78.49 Continue atorvastat in 20 mg qdMonitor labs yearly Gastroesop hageal reflux disease 531622615 K21.9 No current sxs.Contin ue pantoprazo le 40 mg qdMonitor sxs [id number] FRIEDA ANDERSON [address] [place] [address] [place] [address] 04/20/2024 10:04:50 04/28/2024 08:59:08 Osteomyelitis 39318610 M86.272 left foot 2nd toe with woundgrima [...] Dr. Lu Holder who has offices in [facility] and [place]. [place] # is Chronic di astolic heart failure 561028676 I50.32 Appears euvolemic. Continue furosemide 10 mg qdMonitor resp. status, fluid status, wts and labs. Chronic ob structive pulmonary disease 01741877 J43.8 breathing easy and unlabored. Continue Advair 250/50 BID and albuterol nebs q 6 hrs prnMonitor resp status. Mixed anxi ety and depressive disorder 588939087 F41.8 her mood is normal reports eating and drinking ok.Continu e escitalopr am 30 mg qd, trazadone 25 mg qhs and 12.5 mg BID prn.Monito r mood.Consu lt psych prn [id number] MD DARRIN Perry [address] [place] [address] [place] [address] 04/23/2024 22:13:47 04/30/2024 18:09:13 Osteomyelitis 45281305 M86.272 Continue ertapenem 1 gm IV qd [...] Lu Holder's office again. Has offices in [facility] and [place]. [place] # is [place] [id number] R29.6 Is still a high fall risk.Needs PT/OT for strengthen ing, balance, gait training, safety and function.C ontinue fall precaution s.Monitor for safety. Chronic di astolic heart failure 682684999 I50.32 Remains euvolemic. Continue furosemide 10 mg qdMonitor resp. status, fluid status, wts and labs. Chronic ob structive pulmonary disease 75349526 J43.8 Continues with no sxs.Contin ue Advair 250/50 BID and albuterol nebs q 6 hrs prnMonitor resp status. Type 2 jr betes mellitus 15515124 E11.21 Sugars were all good, so not being checked regularly. Last HgA1C was 6.1 in 06/2023.Con tinue gabapentin 300 MG qhs and other pain meds as above for neuropathy .Monitor fingerstic ks prn and HgA1C q 3-6 months [id number] GOLDIE TREVIZO JENSEN [address] [place] [address] [place] [address] 5 04/30/2024 08:46:54 05/02/2024 09:31:27 Osteomyelitis 29069233 M86.272 left foot 2nd toe with wound, [...] Dr. Lu Holder who has offices in [facility] and [place]. [place] # is Chronic di astolic heart failure 826063151 I50.32 Appears euvolemic. Continue furosemide 10 mg qdMonitor resp. status, fluid status, wts and labs. Chronic ob structive pulmonary disease 69758249 J43.8 breathing easy and unlabored. Continue Advair 250/50 BID and albuterol nebs q 6 hrs prnMonitor resp status. Mixed anxi ety and depressive disorder 070712770 F41.8 her mood is normal reports eating and drinking ok.Continu e escitalopr am 30 mg qd, trazadone 25 mg qhs and 12.5 mg BID prn.Monito r mood.Consu lt psych prn Gastroesop hageal reflux disease 211601518 K21.9 Reporting some nausea after eating, unsure if may be related to abx use. Discused with nsg., will monitor.Co ntinue pantoprazo le 40 mg qdMonitor sxs Restless legs 30021733 G 25.81 Continue requip, very helpful Headache 11618648 R51.9 history of, including migraines, for years.Most headaches in the forehead area and above eyes.APAP discussed, helps, would like it sched. if possible.D iscussed claudine nsg. who also feels it would be a good idea, so will sched. 650 mg tid.Monito r. [id number] FRIEDA ANDERSON JENSEN [address] [place] [phone] 5 05/05/2024 11:02:17 05/06/2024 15:43:52 Osteomyelitis 56048580 M86.272 left foot 2nd toe with wound, [...] Dr. Lu Holder who has offices in [facility] and [place]. [place] # is Chronic di astolic heart failure 186281809 I50.32 Appears euvolemic. Continue furosemide 10 mg qdMonitor resp. status, fluid status, wts and labs. Chronic ob structive pulmonary disease 69420098 J43.8 breathing easy and unlabored. Continue Advair 250/50 BID and albuterol nebs q 6 hrs prnMonitor resp status. Mixed anxi ety and depressive disorder 560861792 F41.8 her mood is normal reports eating and drinking ok.Continu e escitalopr am 30 mg qd, trazadone 25 mg qhs and 12.5 mg BID prn.Monito r mood.Consu lt psych prn Gastroesop hageal reflux disease 866348671 K21.9 Continue pantoprazo le 40 mg qdMonitor sxs Restless legs 35191873 G 25.81 Continue requip, very helpful Headache 12803796 R51.9 history of, including migraines, for years.Most headaches in the forehead area and above eyes.APAP discussed, helps, would like it sched. if possible.Eloy mo. who also feels it would be a good idea, so will sched. 650 mg tid.Monito r. [id number] FRIEDA ANDERSON JENSEN [address] [place] [phone] 5 05/07/2024 10:05:01 05/11/2024 16:11:56 Osteomyelitis 59614143 M86.272 Continue ertapenem 1 gm IV qd [...] Dr. Lu Holder who has offices in [facility] and [place]. [place] # is Chronic di astolic heart failure 499744424 I50.32 Appears euvolemic. Continue furosemide 10 mg qdMonitor resp. status, fluid status, wts and labs. Chronic ob structive pulmonary disease 53036361 J43.8 breathing easy and unlabored. Continue Advair 250/50 BID and albuterol nebs q 6 hrs prnMonitor resp status. Mixed anxi ety and depressive disorder 150504234 F41.8 Continue escitalopr am 30 mg qd, trazadone 25 mg qhs and 12.5 mg BID prn.Monito r mood.Consu lt psych prn Gastroesop hageal reflux disease 383806743 K21.9 Continue pantoprazo le 40 mg qdMonitor sxs Restless legs 82944382 G 25.81 Continue requip, very helpful Headache 66177662 R51.9 continue tylenol 650 mg prn.encour age to increase oral hydration. [id number] FRIEDA ANDERSON JENSEN [address] [place] [address] [phone] 5 05/11/2024 16:30:45 05/12/2024 13:09:07 Osteomyelitis 36911668 M86.272 Has been tolerating IV therapy.Co ntinue [...] Dr. Lu Holder who has offices in [facility] and [place]. [place] # is Chronic di astolic heart failure 334409176 I50.32 euvolemic. Continue furosemide 10 mg qdMonitor resp. status, fluid status, wts and labs. Chronic ob structive pulmonary disease 83247991 J43.8 Continue Advair 250/50 BID and albuterol nebs q 6 hrs prnMonitor resp status. Mixed anxi ety and depressive disorder 821764363 F41.8 Continue escitalopr am 30 mg qd, trazadone 25 mg qhs and 12.5 mg BID prn.mood is good today. pleasant on exam.Monit or moodConsul t psych prn Gastroesop hageal reflux disease 393223324 K21.9 Continue pantoprazo le 40 mg qdMonitor sxs Restless legs 85567831 G 25.81 Continue requip 2 mg bid Headache 01258873 R51.9 continue tylenol 650 mg prn.encour age to increase oral hydration. [id number] FRIEDA ANDERSON [facility] [address] [place] [address] [phone] 5 05/15/2024 10:17:08 05/19/2024 11:08:19 Osteomyelitis 51589989 M86.272 Has been tolerating IV therapy.Co ntinue ertapenem 1 gm IV qd until ontin ue probiotic BIDContinu e local care as ordered.Mo nitor labs (CBC, CMP, ESR, and CRP weekly until 05/18) and skin condition. Chronic di astolic heart failure 691334983 I50.32 euvolemic. Continue furosemide 10 mg qdMonitor resp. status, fluid status, wts and labs. Chronic ob structive pulmonary disease 84204745 J43.8 Continue Advair 250/50 BID and albuterol nebs q 6 hrs prnMonitor resp status. Mixed anxi ety and depressive disorder 101316477 F41.8 Continue escitalopr am 30 mg qd, trazadone 25 mg qhs and 12.5 mg BID prn.mood is good today. pleasant on exam.Monit or moodConsul t psych prn Gastroesop hageal reflux disease 583094443 K21.9 Continue pantoprazo le 40 mg qdthere has been no reported GI upset. Restless legs 51626389 G 25.81 Continue requip 2 mg bid Headache 29862813 R51.9 continue tylenol 650 mg prn.encour age to increase oral hydration. [id number] FRIEDA ANDERSON [facility] [address] [place] [phone] 5 05/18/2024 08:44:49 05/19/2024 11:16:27 Osteomyelitis [id number] M86.272 completed abxcontinu e probiotic BIDContinu e local care as ordered.f/ u appt. with ID later today Chronic di astolic heart failure 926367168 I50.32 stableCont inue furosemide 10 mg qdMonitor resp. status, fluid status, wts and labs. Chronic ob structive pulmonary disease 36125713 J43.8 breathing easy and unlabored. Continue Advair 250/50 BID and albuterol nebs q 6 hrs prnMonitor resp status. Mixed anxi ety and depressive disorder 149928169 F41.8 Continue escitalopr am 30 mg qd, trazadone 25 mg qhs and 12.5 mg BID prn.Monito r moodConsul t psych prn Gastroesop hageal reflux disease 201359060 K21.9 Continue pantoprazo le 40 mg qdthere has been no reported GI upset. Restless legs 48567568 G 25.81 Continue requip 2 mg bid Headache 43202717 R51.9 continue tylenol 650 mg prn.encour age to increase oral hydration. [id number] FRIEDA ANDERSON [facility] [address] [place] [address] 05/25/2024 09:58:25 05/29/2024 09:27:36 [facility] [id number] M86.272 completed abx Chronic di astolic heart failure 391901900 I50.32 euvolemicC ontinue furosemide 10 mg qdMonitor resp. status, fluid status, wts and labs. Chronic ob structive pulmonary disease 79789489 J43.8 breathing easy and unlabored. Continue Advair 250/50 BID and albuterol nebs q 6 hrs prnMonitor resp status. Mixed anxi ety and depressive disorder 817633555 F41.8 Continue escitalopr am 30 mg qd, trazadone 25 mg qhs and 12.5 mg BID prn.Monito r moodConsul t psych prn Gastroesop hageal reflux disease 591258402 K21.9 Continue pantoprazo le 40 mg qdthere has been no reported GI upset. Restless legs 61542798 G 25.81 Continue requip 2 mg bid Headache 97227053 R51.9 continue tylenol 650 mg prn.encour age to increase oral hydration. [id number] FRIEDA ANDERSON [address] [address] 06/01/2024 09:58:25 06/03/2024 09:34:34 Osteomyelitis 98009223 M86.272 completed abx Chronic di astolic heart failure 753694108 I50.32 euvolemicC ontinue furosemide 10 mg qdMonitor resp. status, fluid status, wts and labs. Chronic ob structive pulmonary disease 32905534 J43.8 breathing easy and unlabored. Continue Advair 250/50 BID and albuterol nebs q 6 hrs prnMonitor resp status. Mixed anxi ety and depressive disorder 043940849 F41.8 mood is stableCont inue escitalopr am 30 mg qd, trazadone 25 mg qhs and 12.5 mg BID prn.Monito r moodConsul t psych prn [id number] FRIEDA ANDERSON [address] [address] 06/03/2024 11:42:59 06/09/2024 13:21:42 Osteomyelitis 59140987 M86.272 completed abx Chronic di astolic heart failure 332036399 I50.32 euvolemicC ontinue furosemide 10 mg qdMonitor resp. status, fluid status, wts and labs. Chronic ob structive pulmonary disease 89053534 J43.8 breathing easy and unlabored. Continue Advair 250/50 BID and albuterol nebs q 6 hrs prnMonitor resp status. 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 [id number] FRIEDA ANDERSON [address] [place] [address] 06/11/2024 11:46:23 06/15/2024 11:21:06 Osteomyelitis 29790914 M86.272 06/09:clinic ally she is stableleft foot [...] a second consult with ortho. appt 06/18/24. [id number] FRIEDA ANDERSON [address] [place] [address] 06/15/2024 09:48:35 06/17/2024 10:12:04 Osteomyelitis 34240039 M86.272 06/09:clinic ally she is stableleft foot [...] appt 06/18/24. Chronic di astolic heart failure 693923720 I50.32 euvolemicw eight stableCont inue furosemide 10 mg qdMonitor resp. status, fluid status, wts and labs. Chronic ob structive pulmonary disease 65823322 J43.8 breathing easy and unlabored. Continue Advair 250/50 BID and albuterol nebs q 6 hrs prnMonitor resp status. [id number] FRIEDA ANDERSON [address] [place] [address] 06/22/2024 08:47:12 06/24/2024 08:50:27 Osteomyelitis 79772192 M86.272 06/09:clinic ally she is stableleft foot [...] gaines. Mixed anxi ety and depressive disorder 889969583 F41.8 mood is stablerece nt room change transition to LTC, adjusting well. Most of the women she joins at activities reside on same unit, she is happy about this.Cindy nue escitalopr am 30 mg qd, trazadone 25 mg qhs and 12.5 mg BID prn.Monito r moodConsul t psych prn [id number] FRIEDA ANDERSON [address] [place] [address] rd [place] [address] 06/29/2024 10:45:15 06/30/2024 13:34:02 Osteomyelitis 27882386 M86.272 06/09:clinic ally she is stableleft foot [...] ortho. Mixed anxi ety and depressive disorder 245784860 F41.8 mood is stablerece nt room change transition to LTC, adjusting well. Most of the women she joins at activities reside on same unit, she is happy about this.Cindy nue escitalopr am 30 mg qd, trazadone 25 mg qhs and 12.5 mg BID prn.Monito r moodConsul t psych prn Chronic di astolic heart failure 261572321 I50.32 euvolemicw eight stable noted 166-168Con tinue furosemide 10 mg qdMonitor resp. status, fluid status, wts and labs. [id number] FRIEDA ANDERSON [address] [address] 07/02/2024 11:07:08 07/03/2024 12:50:28 Mixed anxiety and depressive disorder 222123295 F41.8 mood is stable- she denies feeling hopeless, lonely or isolated.C ontinue escitalopr am 30 mg qd, trazadone 25 mg qhs and 12.5 mg BID prn.Monito r mood for negative changes.pt encouraged to continue to engage in social activities .Consult psych prn Chronic di astolic heart failure 247393345 I50.32 euvolemic- she denies any chest pain or shortness of breathweig ht stable noted 166-168Con tinue furosemide 10 mg qdMonitor resp. status, fluid status, wts and labs. Hammer toe 129435716 M20 .42 left foot 2 nd toe-recent ly completed IV antibiotic s ertapenem 1 gm daily for 6 weeks for osteomyeli tis. she continues to have discomfort . follow up xray results: no acute abnormalit y is seen in the left foot. [id number] FRIEDA ANDERSON [facility] [address] [place] [phone] 07/07/2024 14:44:04 07/08/2024 11:39:59 Hammer toe 313482349 M20.42 left foot 2 nd toe-recent ly completed IV antibiotic s ertapenem 1 gm daily for 6 weeks for osteomyeli tis. she continues to have discomfort . follow up xray results: no acute abnormalit y is seen in the left foot. Mixed anxi ety and depressive disorder 806969372 F41.8 mood is stable- she denies feeling hopeless, lonely or isolated.C ontinue escitalopr am 30 mg qd, trazadone 25 mg qhs and 12.5 mg BID prn.Monito r mood for negative changes.pt encouraged to continue to engage in social activities .followed by psych prn recently seen 07/06 no new recommenda tion. Chronic di astolic heart failure 134170648 I50.32 euvolemic- she denies any chest pain or shortness of breathweig ht stable noted 166-168Con tinue furosemide 10 mg qdMonitor resp. status, fluid status, wts and labs. [id number] FRIEDA ANDERSON [address] [address] 07/13/2024 08:31:31 07/14/2024 11:43:51 Hammer toe 170132077 M20.42 07/13:stabl e, no worsening sx notedleft foot 2 nd toe-recent ly completed IV antibiotic s ertapenem 1 gm daily for 6 weeks for osteomyeli tis. she continues to have discomfort . follow up xray results: no acute abnormalit y is seen in the left foot. Mixed anxi ety and depressive disorder 496116903 F41.8 07/13: StableCont inue escitalopr am 30 mg qd, trazadone 25 mg qhs and 12.5 mg BID prn.Monito r mood for negative changes.pt encouraged to continue to engage in social activities .followed by psych prn recently seen 07/06 no new recommenda tion. Chronic di astolic heart failure 403441506 I50.32 07/13: stable.euv olemic- she denies any chest pain or shortness of breathweig ht stable noted 166-168Con tinue furosemide 10 mg qdMonitor resp. status, fluid status, wts and labs. [id number] FRIEDA ANDERSON [address] [address] 07/16/2024 10:15:02 07/21/2024 15:43:58 Hammer toe 482360724 M20.42 07/13:stabl e, no worsening sx notedleft foot 2 nd toe-recent ly completed IV antibiotic s ertapenem 1 gm daily for 6 weeks for osteomyeli tis. she continues to have discomfort . follow up xray results: no acute abnormalit y is seen in the left foot. Mixed anxi ety and depressive disorder 556318065 F41.8 Stable with delusional thoughts, she thinks staff is stealing her clothes.Co ntinue escitalopr am 30 mg qd, trazadone 25 mg qhs and 12.5 mg BID prn.Monito r mood for negative changes.pt encouraged to continue to engage in social activities .followed by psych prn recently seen 07/06 no new recommenda tion. Chronic di astolic heart failure 130480410 I50.32 stable.euv olemic- she denies any chest pain or shortness of breathweig ht stable noted 166-168Con tinue furosemide 10 mg qdMonitor resp. status, fluid status, wts and labs. [id number] FRIEDA ANDERSON [facility] [address] [facility] [address] [place] [phone] 07/20/2024 11:57:24 07/21/2024 16:08:03 Hammer toe 492222268 M20.42 stable, no worsening sx notedleft foot 2 nd toe-recent ly completed IV antibiotic s ertapenem 1 gm daily for 6 weeks for osteomyeli tis. she continues to have discomfort . follow up xray results: no acute abnormalit y is seen in the left foot. Mixed anxi ety and depressive disorder 405090091 F41.8 07/19: seen by biopsychologist will review notes when available. Stable with delusional thoughts, she thinks staff is stealing her clothes.Co ntinue escitalopr am 30 mg qd, trazadone 25 mg qhs and 12.5 mg BID prn.Monito r mood for negative changes.pt encouraged to continue to engage in social activities .followed by psych prn recently seen 07/06 no new recommenda tion. Chronic di astolic heart failure 374987941 I50.32 stable.euv olemic- she denies any chest pain or shortness of breathweig ht stable noted 166-168Con tinue furosemide 10 mg qdMonitor resp. status, fluid status, wts and labs. [id number] FRIEDA ANDERSON [address] [place] [address] 07/23/2024 11:46:33 07/24/2024 11:44:07 Hammer toe 895536572 M20.42 stable, no worsening sx notedleft foot 2 nd toe-recent ly completed IV antibiotic s ertapenem 1 gm daily for 6 weeks for osteomyeli tis. she continues to have discomfort . follow up xray results: no acute abnormalit y is seen in the left foot. Mixed anxi ety and depressive disorder 606925763 F41.8 StableCont inue escitalopr am 30 mg qd, trazadone 25 mg qhs and 12.5 mg BID prn.Monito r mood for negative changes.pt encouraged to continue to engage in social activities .followed by psych prn recently seen 07/06 no new recommenda tion. Chronic di astolic heart failure 963494594 I50.32 stable.euv olemic- she denies any chest pain or shortness of breathweig ht stable noted 166-168Con tinue furosemide 10 mg qdMonitor resp. status, fluid status, wts and labs. Chronic ob structive pulmonary disease 58035089 J43.8 breathing easy and unlabored. Continue Advair 250/50 BID and albuterol nebs q 6 hrs prnMonitor resp status. [id number] FRIEDA ANDERSON [address] [place] [phone] 09/10/2024 08:43:17 09/11/2024 12:05:09 Mixed anxiety and depressive disorder 404125645 F41.8 mild emotional distress, crying during assessment 2/ ble painContin ue escitalopr am 30 mg qd, trazadone 25 mg qhs and 12.5 mg BID prn.psych prn Chronic di astolic heart failure 250973991 I50.32 euvolemic- she denies any chest pain or shortness of breathweig ht stableCont inue furosemide 20 mg qdMonitor resp. status, fluid status, wts and labs. Chronic ob structive pulmonary disease 61061462 J43.8 breathing easy and unlabored. Continue Advair 250/50 BID and albuterol nebs q 6 hrs prnMonitor resp status. Neuropathy 794758920 G62 .9 see hpiBLE without sx of infectiono n gabapentin 300 mg at hs -she has been having increasing sx and weakness, requiring 2 people assist.dis cussed increasing gabapentin to BID and re eval in a few days for effect.hx diabetes/n ot on meds/ will get updated A1c. (06/2023 noted 6.1) Restless legs 62239052 G 25.81 Continue requip 2 mg bid [id number] FRIEDA ANDERSON [address] [address] 09/14/2024 10:23:24 09/15/2024 14:23:56 Neuropathy 102060839 G62.9 BLE without sx of infectiong abapentin 300 mg BIDshe has been having increasing sx and weakness, requiring 2 people assist.hx diabetes/n ot on meds/ will get updated A1c. (06/2023 noted 6.1) - labs ord for today not completed will re-order. Restless legs 43511582 G 25.81 Continue requip 2 mg bid [id number] FRIEDA ANDERSON [address] [address] 10/02/2024 11:01:09 10/05/2024 13:31:21 Pain of left ankle joint 6744350606 1397614 M25.572 localizedn on pitting left ankle swelling, no redness or warmthno foot discolorat ion, color is normal+CMS , pain with ROMplan for xray, labs with uric acid,apply ice 15 minutes to ankle TIDapply tyrone wrap compressio n dailywill schedule tylenol 650 mg TID and Motrin 400 mg BIDPT/OT eval and tx [id number] FRIEDA ANDERSON [address] [address] 10/05/2024 11:01:37 10/06/2024 13:54:09 Pain of left ankle joint [id number] 7446899 M25.572 localized/ swelling noted to have improved [...] BIDPT/OT eval and tx Contusion of thigh 29859 003 S70.10XA see hpi/left thightende r to touchmonit or as it healsdiscu ssed with nursingcon tinue scheduled tylenol [id number] Rex Bass MD [address] [place] [address] 11/25/2024 11:52:19 11/26/2024 15:26:27 Acute low back pain 740785960 M54.59 acute on chronic low back pain with point tenderness lumbar spinex ray to eval for concern vert comp fxx ray left hipchange tramadol 50 mg to q 6 prnmonitor need for ortho eval Chronic di astolic heart failure 159630095 I50.32 euvolemic- she denies any chest pain or shortness of breathweig ht stableCont inue furosemide 20 mg qdMonitor resp. status, fluid status, wts and labs. Chronic ob structive pulmonary disease 52970052 J43.8 monitor respirator y status and albuterol utilizatio n Gastroesop hageal reflux disease 699095737 K21.9 protonix 40 mg qdmonitor sx control Health Concerns Section Related Observation LastModified by Organization Detai ls LastModified Time None Recorded Concern Status LastModified by Organization Details LastModified Time None Recorded Advance Directives Directive Y: Payers Encounter Date Sequence Insurance Name Policy Number Policy Anders Covered Member ID Anders Member ID Guarantor Name 09/10/2024 1 [place] [employer] [place] Shreya M Gravel [id number] Shreya Gravel 09/10/2024 2 [place] [id number] Shreya Gravel [id number] Shreya Gravel 09/14/2024 1 [place] [employer] Shreya M Gravel [id number] Shreya Gravel 09/14/2024 2 [place] [id number] Shreya Gravel [id number] Shreya Gravel 10/02/2024 1 [place] [employer] Shreya M Gravel [id number] Shreya Gravel 10/02/2024 2 [place] [id number] Shreya Gravel [id number] Shreya Gravel 10/05/2024 1 [place] [employer] Shreya M Gravel [id number] Shreya Gravel 10/05/2024 2 [place] [id number] Shreya Gravel [id number] Shreya Gravel 11/25/2024 1 [place] [employer] Shreya M Gravel [id number] Shreya Gravel 11/25/2024 2 [place] [id number] Shreya Gravel [id number] Shreya Gravel Notes Date Note Type [...] assist with transfers. CARLTON MINA, FRIEDA [address] [facility], [address], [place], [address], [facility] 09/10/2024 19:04:25 09/14/2024 text/html This is a [...] no acute nursing concerns. FRIEDA ANDERSON [address] [facility], [address], [place], [address], [email or web address] 09/14/2024 14:27:57 10/02/2024 text/html This is a [...] depression, anxiety, LLE cellulitis. FRIEDA ANDERSON [address] [facility], [address], [place], [address], [email or web address] 10/02/2024 11:23:10 10/05/2024 text/html This is a [...] depression, anxiety, LLE cellulitis. FRIEDA ANDERSON [address] [facility], [address], [place], [address], [email or web address] 10/05/2024 16:22:00 11/25/2024 text/html Patient is a 89 yo female resident due for routine rounding also seen for acute rounding with complaint of chronic pain. PMH chf, a flutter, gerd, anemia, copd, chronic pain Rex Bass MD [address] [facility], [address], [place], [address], [facility] - [facility] 11/25/2024 12:03:07 OBGyn Episode No OBEpisode recorded.
[2024-12-07 06:46] LABS: Basophils Percent Auto 0.4 % (0-2); Eosinophils Absolute Auto 0.2 X10*3/uL (0.0-0.4); Eosinophils Percent Auto 2.2 % (0-4); Hematocrit 37.3 % (37.0-47.0); Hemoglobin 12.3 g/dl (12.0-16.0); Imm Gran Abs Auto 0.02 X10*3/uL (0.00-0.03); Imm Gran Pct Auto 0.3 % (0.0-0.4); Lymphocytes Absolute Auto 1.5 X10*3/uL (1.2-4.9); Lymphocytes Percent Auto 21.8 % (20-40); Mean Corpuscular Hemoglobin 32.8 pg (27.0-33.0); Mean Corpuscular Volume 99.5 fL (80.0-98.0); Mean Platelet Volume 9.9 fL (9.4-12.3); Monocytes Absolute Auto 0.6 X10*3/uL (0.1-1.2); Monocytes Percent Auto 9.2 % (2-11); Neutrophils Absolute Auto 4.5 x10*3/uL (2.0-8.3); Neutrophils Percent Auto 66.1 % (45-73); Platelet Count 172 X10*3/uL (160-400); Red Blood Count 3.75 X10*6/uL (4.20-5.50); Red Cell Distribution Width 14.2 % (11.0-16.0); White Blood Count 6.8 X10*3/uL (4.8-10.8)
[2024-12-07 07:20] LABS: Anion Gap 11 (12-20); Blood Urea Nitrogen 26 mg/dL (9-16); Calcium 9.1 mg/dL (8.4-10.2); Carbon Dioxide 24 mmol/L (22-29); Chloride 109 mmol/L (96-108); Estimated Glomerular Filt Rate > 60; Glucose Random 93 mg/dL (60-115); Potassium 4.3 mmol/L (3.3-5.1); Sodium 140 mmol/L (135-145)
== END 2024-12-07 06:15 | disposition home or self-care (01) ==
LOC: HO.MMNH3L 06:14
PROVIDERS: Visit Provider Nurse Practitioner
DX: Z13.89 Encounter for screening for other disorder (principal)
CPT/HCPCS: 36415; 80048; 85025

== ENCOUNTER 2024-12-10 07:06 | Inpatient (IN) | payer MEDICARE, MEDICAID, SELFPAY ==
[2024-12-10] VITALS (24 sets, daily range): BP systolic 74–180; BP diastolic 24–96; PULSE 57–79; RESP 12–20; TEMP 37.2–39.6; O2SAT 92–99; BMI 29.7
--- NOTE | 2024-12-10 | ECG_ITS ---
Test Reason : CP Blood Pressure : */* mmHG Vent. Rate : 64 BPM Atrial Rate : 64 BPM P-R Int : 164 ms QRS Dur : 106 ms QT Int : 440 ms P-R-T Axes : 22 18 42 degrees QTcB Int : 453 ms Normal sinus rhythm Normal ECG When compared with ECG of 10-Dec-2024 07:42, No significant change was found Referred By: Carmina Land Electronically Signed By: DANETTE SOTELO MD
--- NOTE | ~2024-12-10 | XR_ITS ---
EXAMINATION: XR CHEST CLINICAL INFORMATION: Mental status change COMPARISON: None available. TECHNIQUE: Frontal view of the chest was obtained. FINDINGS: Poor inspiration. Pulmonary reticular pattern. No consolidation, pleural effusion or pneumothorax. Sternal wires and mediastinum vascular clips likely CABG procedure. Cardiomediastinal silhouette size is normal. Calcified plaque thoracic aorta. Multilevel thoracolumbar spondylosis and a S-shaped curvature. Prior surgical partial resections of the distal clavicles bilaterally. Degenerative changes in the glenohumeral joints. XR/XR chest 1V IMPRESSION: Chronic interstitial lung disease. Superimposed mild interstitial lung edema versus small airway inflammatory process cannot be excluded. Electronically signed by: Art Mckeon MD 12/10/2024 07:56 AM EST
--- NOTE | ~2024-12-10 | CT_ITS ---
EXAMINATION: CT HEAD WITHOUT CONTRAST CLINICAL INFORMATION: Altered mental status. COMPARISON: None available. TECHNIQUE: Contiguous axial imaging was performed from the skull base to vertex without intravenous administration of contrast. This CT examination was performed using dose optimization techniques as appropriate, variously including the following: *Automated exposure control *Adjustment of mA and/or kV according to patient size (this includes techniques or standardized protocols for targeted exams where dose is matched to indication/reason for exam; i.e. extremities or head) *Use of iterative reconstruction technique DLP: 636 mGy/cm. FINDINGS: There is no acute intra-axial, extra-axial bleed, masses or midline shift. There is no acute infarction evolution. There is no edema. The lateral ventricles are symmetrical in size and configuration with mild enlargement. There is a mild ventricular hypodensity without mass effect in both cerebral hemispheres. Bone windows reveal no calvarial abnormality. There is no scalp soft tissue abnormality. Bilateral paranasal sinuses and mastoid air cells are well-aerated. CT/CT head/brain wo IV con IMPRESSION: No acute intracranial process. Electronically signed by: Marcin Mccrary MD 12/10/2024 10:28 AM [facility]
--- NOTE | 2024-12-10 07:17 | ECG_ITS ---
Test Reason : MENTAL STATUS CHANGE Blood Pressure : */* mmHG Vent. Rate : 76 BPM Atrial Rate : 76 BPM P-R Int : 208 ms QRS Dur : 102 ms QT Int : 418 ms P-R-T Axes : 60 5 29 degrees QTcB Int : 470 ms Normal sinus rhythm Nonspecific ST abnormality Abnormal ECG No previous ECGs available Referred By: Andres Ferrell Electronically Signed By: DANETTE SOTELO MD
--- NOTE | 2024-12-10 07:18 | ED_ITS ---
HPI - Altered Mental Status General Chief Complaint: Fever Stated Complaint: FLU LIKE,HOT, FROM SNF PE EMS Time Seen by Provider: 12/10/24 07:16 Source: patient, EMS and old records reviewed Mode of arrival: EMS Limitations: altered mental status History of Present Illness ED Provider: DR. Ferrell HPI narrative: 89-year-old female with past medical history significant for HTN, CAD, HLD, dm 2 among other who presented by EMS for change mental status from alf and fever. Patient came from alf according to the alf documentation patient normally is alert, oriented, following instruction, needs assistance in all her daily activity, patient in the emergency department is confused and disoriented x3, no trauma was reported from alf, no head injury, no AC therapy. Patient came in accompanied by her MOLST form patient is DNI, DNR, no artificial nutrition, no dialysis. Related Data Home Medications ?Medication ?Instructions ?Recorded ?Confirmed Saccharomyces boulardii 250 mg 250 mg PO BID 04/05/24 04/05/24 capsule (Probiotic (S.boulardii)) acetaminophen 325 mg tablet 650 mg PO Q6H PRN Fever Or Pain 04/05/24 04/05/24 (Tylenol) albuterol sulfate 2.5 mg/3 mL 2.5 mg inhalation Q6H PRN 04/05/24 04/05/24 (0.083 %) solution for nebulization Shortness Of Breath Or Wheezing amiodarone 200 mg tablet 200 mg PO DAILY 04/05/24 04/05/24 ascorbic acid (vitamin C) 250 mg 250 mg PO DAILY 04/05/24 04/05/24 tablet (Vitamin C) atorvastatin 20 mg tablet 20 mg PO BEDTIME 04/05/24 04/05/24 bisacodyl 10 mg rectal suppository 10 mg SC DAILY PRN Constipation 04/05/24 04/05/24 (Dulcolax (bisacodyl)) cholecalciferol (vitamin D3) 25 50 mcg PO DAILY 04/05/24 04/05/24 mcg (1,000 unit) tablet (Vitamin D3) dextromethorphan-guaifenesin 10 10 ml PO Q4H PRN Cough 04/05/24 04/05/24 mg-100 mg/5 mL oral syrup diclofenac sodium 1 % topical gel 4 g topical DAILY 04/05/24 04/05/24 diclofenac sodium 1 % topical gel 4 g topical Q6H PRN neck pain 04/05/24 04/05/24 escitalopram oxalate 10 mg tablet 30 mg PO DAILY 04/05/24 04/05/24 ferrous sulfate 325 mg (65 mg 325 mg PO DAILY 04/05/24 04/05/24 iron) tablet,delayed release fluticasone 250 mcg-salmeterol 50 1 ea inhalation BID 04/05/24 04/05/24 mcg/dose blistr powdr for inhalation furosemide 20 mg tablet 10 mg PO DAILY 04/05/24 04/05/24 gabapentin 300 mg capsule 300 mg PO BID 04/05/24 04/05/24 loperamide 2 mg tablet 2 mg PO Q2H PRN Diarrhea 04/05/24 04/05/24 magnesium hydroxide 400 mg/5 mL 30 ml PO DAILY PRN Constipation 04/05/24 04/05/24 oral suspension (Milk of Magnesia) nystatin 100,000 unit/gram topical 1 appl topical DAILY 04/05/24 04/05/24 powder oxymetazoline 0.05 % nasal mist 1 spray intranasal Q12H PRN nasal 04/05/24 04/05/24 (Afrin (oxymetazoline)) bleeding pantoprazole 40 mg tablet,delayed 40 mg PO DAILY@62904/05/24 04/05/24 release polyethylene glycol 3350 17 gram 17 g PO DAILY 04/05/24 04/05/24 oral powder packet (Miralax) polyethylene glycol 3350 17 gram 17 g PO Q3D PRN Constipation 04/05/24 04/05/24 oral powder packet (Miralax) ropinirole 2 mg tablet 2 mg PO BID 04/05/24 04/05/24 sennosides 8.6 mg-docusate sodium 1 tab-cap PO BID PRN Constipation 04/05/24 04/05/24 50 mg tablet (Senna with Docusate Sodium) sodium chloride 0.65 % nasal spray 2 spray intranasal BID 04/05/24 04/05/24 aerosol (Saline Nasal) sodium phosphates 19 gram-7 118 ml SC DAILY PRN Constipation 04/05/24 04/05/24 gram/118 mL enema (Fleet Enema) tramadol 50 mg tablet 50 mg PO BEDTIME 04/05/24 04/05/24 tramadol 50 mg tablet 50 mg PO BID PRN Pain 04/05/24 04/05/24 trazodone 50 mg tablet 12.5 mg PO BID PRN 04/05/24 04/05/24 anxiety/agitation trazodone 50 mg tablet 25 mg PO BEDTIME 04/05/24 04/05/24 Previous Rx's ?Medication ?Instructions ?Recorded ertapenem 1 gram solution for 1 g IV Q24H #39 ea 04/08/24 injection oxycodone 5 mg tablet 5 mg PO Q6H PRN pain (scale score 04/08/24 7-10) #20 tabs Allergies Allergy/AdvReac Type Severity Reaction Status Date / Time lisinopril Allergy Unknown Unknown Uncoded 12/10/24 07:26 Review of Systems 2 Review of Systems: Yes Unobtainable due to mental status [facility] Past Medical History Medical History Coronary artery disease Hypertension Hypercholesteremia Chronic renal failure Palpitations Anxiety Depression Diabetes mellitus, type 2 COPD (chronic obstructive pulmonary disease) Surgical History H/O coronary artery bypass surgery Social History Social History Household Members: None Housing: Senior Living Do you presently have visiting nurse or other home services: No Alcohol intake: never Patient Tobacco Use Status: Never used Tobacco Advance Directives: Yes Advance Directives on File: Yes Advance Directives Date on File: 01/30/24 Do you have a plan to hurt others: No Plan service: No Physical Exam ED Vital Signs: Vital Signs - 24 hr 12/10/24 07:25 12/10/24 08:44 12/10/24 09:38 Temperature 103.3 F H 101.5 F H 100.9 F H Pulse Rate 70 71 69 Respiratory Rate 20 20 14 Blood Pressure 131/39 L 135/55 L 93/34 L Pulse Oximetry 92 94 95 Oxygen Delivery Method Room Air Room Air Room Air 12/10/24 11:15 12/10/24 11:34 12/10/24 11:37 Temperature 100.0 F Pulse Rate 61 63 63 Respiratory Rate 16 Blood Pressure 82/24 L 74/32 L 82/37 L Pulse Oximetry 93 Oxygen Delivery Method Room Air 12/10/24 11:40 12/10/24 11:52 12/10/24 12:00 Temperature Pulse Rate 61 67 75 Respiratory Rate Blood Pressure 102/52 L 158/62 H 180/41 H Pulse Oximetry Oxygen Delivery Method 12/10/24 12:06 12/10/24 12:40 12/10/24 12:42 Temperature 99.9 F Pulse Rate 79 72 72 Respiratory Rate 12 Blood Pressure 129/57 L 112/61 112/62 Pulse Oximetry 98 Oxygen Delivery Method Room Air 12/10/24 12:51 Temperature 99.9 F Pulse Rate 67 Respiratory Rate 18 Blood Pressure 110/29 L Pulse Oximetry 96 Oxygen Delivery Method BMI result Body Mass Index 29.7 Vital signs have been reviewed and appear to be correct. Blood pressure elevated. Heart rate normal. Respiratory rate normal. Febrile. Oxygen saturation normal. Appearance: Alert. Disoriented x4. No acute distress. Head: Normal external exam. Normocephalic. Atraumatic. No Nicole signs noted. No raccoon eyes noted Eyes: PERRLA. EOMI. Conjunctiva and sclera normal. Eyelids normal. ENT: TM's Normal. Pharynx normal. Uvula midline. Moist mucous membranes. No trismus noted. No drooling noted. No muffled voice noted. Neck: Normal inspection. Neck supple. FROM. No adenopathy. Thyroid Normal. No meningeal signs. No neck mass noted. CVS: Normal heart rate and rhythm. Heart sound normal. No murmurs noted. Pulses normal throughout. Respiratory: No respiratory distress. Painless inspiration. Breath sounds normal. No wheezes/rales/rhonchi noted. Chest nontender. No accessory muscle usage noted or decreased air movement noted. Abdomen: Soft and nontender. Bowel sounds normal in all 4 quadrants. No distention noted. No organomegaly noted. No visible injury noted. Back: No CVA tenderness. Full range of motion noted. Skin: Skin warm and dry. Normal skin color. Normal skin turgor. No rashes/lesions/lacerations noted. Extremities: No lower extremity edema. Extremities exhibit normal range of motion. Extremities nontender. Neuro: Disoriented x4 Cranial nerve exam: II-XII are grossly intact No motor deficit. No sensory deficit. Reflexes normal. Course Reevaluation(s) Reevaluation #1: 89-year-old female came in for change mental status and found to have a UTI, blood pressure dropped, patient received 30 cc/kg total of 2, 352cc, blood pressure continued to fluctuate patient was started on Levophed. Patient received ceftriaxone 1 dose in the ED Elevated troponin, patient declined chest pain, patient's mental status has been improving despite hypotension. Time: 11:40 Reevaluation #2: FOCUSED EXAM: Mental status is improving, no chest pain, elevated troponin with delta change, no EKG ischemic changes, case reviewed with Dr. Bonner thinks that elevated troponin secondary to underlying infection and sepsis. Case also was discussed with Dr. Jaffe (Intensive Care Service), with a blood pressure improvement patient can be admitted to the floor, the case was discussed with the hospitalist Dr. Oakley who accept the patient to medical floor. Time: 13:14 Medications Administered Generic Name Dose Route Start Last Admin Trade Name Freq PRN Reason Stop Dose Admin Norepinephrine Bitartrate 8 mg in 250 mls @ 0 mls/hr 12/10/24 11:30 12/10/24 12:42 Levophed IVCONT 0 mcg/kg/min .Q0M LAURA 0 mls/hr Titration Protocol Per Protocol Discontinued Medications Generic Name Dose Route Start Last Admin Trade Name Freq PRN Reason Stop Dose Admin Ceftriaxone Sodium 1 gm 12/10/24 09:29 12/10/24 09:36 Ceftriaxone Sodium 1 Gm Vial IVPUSH 12/10/24 09:30 1 gm ONCE ONE Administration Sodium Chloride 1,000 mls @ 999 mls/hr 12/10/24 07:16 12/10/24 09:30 Ns IV 12/10/24 08:16 Infused .Q1H1M ONE Infusion Sodium Chloride 1,000 mls @ 500 mls/hr 12/10/24 10:04 12/10/24 11:39 Ns IV 12/10/24 12:03 Infused .Q2H ONE Infusion Albumin Human 50 mls @ 100 mls/hr 12/10/24 10:59 12/10/24 11:52 Kedbumin 25 % IV 12/10/24 11:28 Infused ONCE ONE Infusion Sodium Chloride 2,352 mls @ 2,352 mls/hr 12/10/24 11:47 12/10/24 12:43 Ns 30 ml/kg infuse over 1 hr (2352 ml) 12/10/24 12:46 200 mls/hr IV Infusion .Q1H STA Medical Decision Making Differential Diagnosis Differential Diagnoses: The differential diagnosis associated with the presentation includes (Intracranial bleed, UTI, pneumonia, pneumothorax, pleural effusion, ACS, dehydration, hypovolemia.) Admission/Observation Consideration of admission/observation: Escalation of care including admission/observation considered Consult Healthcare Provider Management of the patient was discussed with: Hospitalist (Dr. Oakley) and Heavy Equipment Service Technician (Dr. Ld Bonner) Lab Data MDM Lab Attestation statement: I reviewed the patient's lab results. 12/10/24 07:32 12/10/24 07:32 Labs: Lab Results 12/10/24 12/10/24 12/10/24 Range/Units 07:32 07:55 08:48 WBC 9.1 (4.8-10.8) X10*3/uL RBC 3.74 L (4.20-5.50) X10*6/uL Hgb 12.4 (12.0-16.0) g/dl Hct 36.6 L (37.0-47.0) % MCV 97.9 (80.0-98.0) fL MCH 33.2 H (27.0-33.0) pg MCHC 33.9 (31.0-35.0) g/dl RDW 14.2 (11.0-16.0) % Plt Count 143 L (160-400) X10*3/uL MPV 9.5 (9.4-12.3) fL Immature Gran % (Auto) Cancelled Neut % (Auto) Cancelled Lymph % (Auto) Cancelled [place] % (Auto) Cancelled Eos % (Auto) Cancelled Baso % (Auto) Cancelled Lymph # (Auto) Cancelled [place] # (Auto) Cancelled Eos # (Auto) Cancelled Baso # (Auto) Cancelled Abs Immat Gran (auto) Cancelled Absolute Neuts (auto) Cancelled Absolute Nucleated RBC 0.000 (0.0-0.012) X10*3/uL Nucleated RBC % (auto) 0.0 (0.0-0.2) /100WBC Neutrophils % (Manual) 85 H (45-73) % Band Neutrophils % 9 H (3-5) % Atypical Lymphs % (Man) 2 (0-6) % Monocytes % (Manual) 4 (2-11) % Abs Neuts (Manual) 8.6 H (2.0-8.3) X10*3/uL Atyp Lymphs # (Manual) 0.2 x10*3/uL Monocytes # (Manual) 0.4 (0.1-1.2) X10*3/uL Platelet Estimate SLIGHTLY DECREASED (NORMAL) Plt Morphology Comment NORMAL RBC Morphology NORMAL Smear Tech's Comments MANUAL DIFF PT 12.7 H (10.9-12.4) SEC INR 1.1 (0.9-1.1) Sodium 139 (135-145) mmol/L Potassium 3.6 (3.3-5.1) mmol/L Chloride 108 (96-108) mmol/L Carbon Dioxide 21 L (22-29) mmol/L Anion Gap 14 (12-20) BUN 26 H (9-16) mg/dL Creatinine 0.85 (0.5-1.4) mg/dL Estim Creat Clear Calc 46.3 Estimated GFR > 60 POC Glucose (60-115) mg/dL Random Glucose 103 (60-115) mg/dL Lactic Acid 1.3 (0.5-2.0) mmol/L Calcium 8.8 (8.4-10.2) mg/dL Total Bilirubin 1.0 (0.0-1.0) mg/dL Direct Bilirubin 0.4 (0.0-0.5) mg/dL AST 21 (5-31) U/L ALT 9 (0-31) U/L Alkaline Phosphatase 82 (39-117) U/L Troponin I High Sens 68.9 H* D (<3.5-17.0) ng/L B-Natriuretic Peptide 137 H (<100) pg/mL Total Protein 6.3 L (6.5-8.0) g/dL Albumin 3.3 L (3.5-5.0) g/dL Lipase < 4 L (8-78) U/L Urine Color Yellow Urine Appearance Turbid Urine pH >= 9.0 (5.0-9.0) Ur Specific [place] 1.015 (1.005-1.025) Urine Protein 100 (2+) H (Neg-Trace) mg/dL Urine Glucose (UA) Negative (Negative) mg/dL Urine Ketones Trace (Negative) mg/dL Urine Blood Small (1+) H (Negative) Urine Nitrite Positive H (Negative) Ur Leukocyte Esterase Large (3+) H (Negative) Urine RBC 0-2 (0-2) /HPF Urine WBC >50 H (0-5) /HPF Ur Squamous Epith Cells 0-2 (0-2) /HPF Urine Bacteria 4+ (None Seen) Hyaline Casts 0-2 (0-2) /LPF Influenza Type A (PCR) NEGATIVE (Negative) Influenza Type B (PCR) NEGATIVE (Negative) RSV RNA Qual (PCR) NEGATIVE (Negative) SARS-CoV-2 RNA (RT-PCR) NEGATIVE (Negative) 12/10/24 12/10/24 Range/Units 10:46 11:25 WBC (4.8-10.8) X10*3/uL RBC (4.20-5.50) X10*6/uL Hgb (12.0-16.0) g/dl Hct (37.0-47.0) % MCV (80.0-98.0) fL MCH (27.0-33.0) pg MCHC (31.0-35.0) g/dl RDW (11.0-16.0) % Plt Count (160-400) X10*3/uL MPV (9.4-12.3) fL Immature Gran % (Auto) Neut % (Auto) Lymph % (Auto) [place] % (Auto) Eos % (Auto) Baso % (Auto) Lymph # (Auto) [place] # (Auto) Eos # (Auto) Baso # (Auto) Abs Immat Gran (auto) Absolute Neuts (auto) Absolute Nucleated RBC (0.0-0.012) X10*3/uL Nucleated RBC % (auto) (0.0-0.2) /100WBC Neutrophils % (Manual) (45-73) % Band Neutrophils % (3-5) % Atypical Lymphs % (Man) (0-6) % Monocytes % (Manual) (2-11) % Abs Neuts (Manual) (2.0-8.3) X10*3/uL Atyp Lymphs # (Manual) x10*3/uL Monocytes # (Manual) (0.1-1.2) X10*3/uL Platelet Estimate (NORMAL) Plt Morphology Comment RBC Morphology Smear Tech's Comments PT (10.9-12.4) SEC INR (0.9-1.1) Sodium (135-145) mmol/L Potassium (3.3-5.1) mmol/L Chloride (96-108) mmol/L Carbon Dioxide (22-29) mmol/L Anion Gap (12-20) BUN (9-16) mg/dL Creatinine (0.5-1.4) mg/dL Estim Creat Clear Calc Estimated GFR POC Glucose 104 (60-115) mg/dL Random Glucose (60-115) mg/dL Lactic Acid (0.5-2.0) mmol/L Calcium (8.4-10.2) mg/dL Total Bilirubin (0.0-1.0) mg/dL Direct Bilirubin (0.0-0.5) mg/dL AST (5-31) U/L ALT (0-31) U/L Alkaline Phosphatase (39-117) U/L Troponin I High Sens 93.9 H* (<3.5-17.0) ng/L B-Natriuretic Peptide (<100) pg/mL Total Protein (6.5-8.0) g/dL Albumin (3.5-5.0) g/dL Lipase (8-78) U/L Urine Color Urine Appearance Urine pH (5.0-9.0) Ur Specific Terry (1.005-1.025) Urine Protein (Neg-Trace) mg/dL Urine Glucose (UA) (Negative) mg/dL Urine Ketones (Negative) mg/dL Urine Blood (Negative) Urine Nitrite (Negative) Ur Leukocyte Esterase (Negative) Urine RBC (0-2) /HPF Urine WBC (0-5) /HPF Ur Squamous Epith Cells (0-2) /HPF Urine Bacteria (None Seen) Hyaline Casts (0-2) /LPF Influenza Type A (PCR) (Negative) Influenza Type B (PCR) (Negative) RSV RNA Qual (PCR) (Negative) SARS-CoV-2 RNA (RT-PCR) (Negative) Independent Interpretation I performed an independent interpretation of an: Plain X-Ray (Chest:Chronic interstitial lung disease. Superimposed mild interstitial lung edema versus small airway inflammatory process cannot be excluded.) and CT Scan (Head: No acute intracranial pathology.) Radiology Impression Discussion of test interpretation with radiology: I have reviewed the radiologist's reading. Critical Care Time Critical Care Time Critical Care Time: Yes Total Critical Care Time: 60 Attestation: The patient was critically ill with a high probability of imminent or life- threatening deterioration. I spent greater than 30 minutes of discontinuous time evaluating the patient, delivering critical care at the bedside, discussing evaluating data with consultants. Critical care time does not include time spent performing separately billable procedures or teaching. Time spent performing critical care was 60 minutes. Discharge Plan Discharge Clinical Impression: Acute UTI, Sepsis Patient Disposition: Admitted As Inpatient Prescriptions: No Action fluticasone propion-salmeterol 250-50 mcg/dose blister with device 1 ea inhalation BID acetaminophen [Tylenol] 325 mg Tablet 650 mg PO Q6H PRN (Reason: Fever Or Pain) Rx Instructions: NTE 3 G / 24 HRS albuterol sulfate 2.5 mg /3 mL (0.083 %) Solution For Nebulization 2.5 mg INHALATION Q6H PRN (Reason: Shortness Of Breath Or Wheezing) amiodarone 200 mg tablet 200 mg PO DAILY Afrin (oxymetazoline) 0.05 % Mist 1 spray INTRANASAL Q12H PRN (Reason: nasal bleeding) atorvastatin 20 mg tablet 20 mg PO BEDTIME ascorbic acid (vitamin C) [Vitamin C] 250 mg Tablet 250 mg PO DAILY cholecalciferol (vitamin D3) [Vitamin D3] 25 mcg (1,000 unit) Tablet 50 mcg PO DAILY diclofenac sodium 1 % gel 4 g topical Q6H PRN (Reason: neck pain) diclofenac sodium 1 % gel 4 g topical DAILY trazodone 50 mg tablet 12.5 mg PO BID PRN (Reason: anxiety/agitation) Rx Instructions: END DATE: 04/16/24 trazodone 50 mg tablet 25 mg PO BEDTIME polyethylene glycol 3350 [Miralax] 17 gram Powder In Packet 17 g PO Q3D PRN (Reason: Constipation) polyethylene glycol 3350 [Miralax] 17 gram Powder In Packet 17 g PO DAILY sennosides-docusate sodium [Senna with Docusate Sodium] 8.6-50 mg Tablet 1 tab-cap PO BID PRN (Reason: Constipation) loperamide 2 mg Tablet 2 mg PO Q2H PRN (Reason: Diarrhea) Rx Instructions: administer after each loose stool until symptoms controlled; do not exceed 16 mg per 24 hrs dextromethorphan-guaifenesin 10-100 mg/5 mL Syrup 10 ml PO Q4H PRN (Reason: Cough) tramadol 50 mg tablet 50 mg PO BID PRN (Reason: Pain) tramadol 50 mg tablet 50 mg PO BEDTIME magnesium hydroxide [Milk of Magnesia] 400 mg/5 mL Suspension 30 ml PO DAILY PRN (Reason: Constipation) bisacodyl [Dulcolax (bisacodyl)] 10 mg Suppository 10 mg SC DAILY PRN (Reason: Constipation) ropinirole 2 mg tablet 2 mg PO BID pantoprazole 40 mg tablet,delayed release (DR/EC) 40 mg PO DAILY@0630 [place] Enema 19-7 gram/118 mL Enema 118 ml SC DAILY PRN (Reason: Constipation) gabapentin 300 mg Capsule 300 mg PO BID furosemide 20 mg Tablet 10 mg PO DAILY nystatin 100,000 unit/gram powder 1 appl topical DAILY ferrous sulfate 325 mg (65 mg iron) Tablet,Delayed Release (Dr/Ec) 325 mg PO DAILY escitalopram oxalate 10 mg tablet 30 mg PO DAILY Saline Nasal 0.65 % Aerosol,[place] 2 spray INTRANASAL BID Saccharomyces boulardii [Probiotic (S.boulardii)] 250 mg Capsule 250 mg PO BID oxycodone 5 mg tablet 5 mg PO Q6H PRN (Reason: pain (scale score 7-10)) Qty: 20 0RF Rx Instructions: Partial Fill upon patient request. ertapenem 1 gram recon soln 1 g IV Q24H Qty: 39 0RF Print Language: Finnish
[2024-12-10] MEDS: 0.9 % Sodium Chloride 1,000 ML 999 ML IV (07:34)
[2024-12-10 07:38] LABS: Hematocrit 36.6 % (37.0-47.0); Hemoglobin 12.4 g/dl (12.0-16.0); Mean Corpuscular HGB Conc 33.9 g/dl (31.0-35.0); Mean Corpuscular Hemoglobin 33.2 pg (27.0-33.0); Mean Corpuscular Volume 97.9 fL (80.0-98.0); Mean Platelet Volume 9.5 fL (9.4-12.3); Platelet Count 143 X10*3/uL (160-400); Red Blood Count 3.74 X10*6/uL (4.20-5.50); Red Cell Distribution Width 14.2 % (11.0-16.0); White Blood Count 9.1 X10*3/uL (4.8-10.8)
[2024-12-10 07:49] LABS: INTERNATIONAL NORM RATIO 1.1 (0.9-1.1); Prothrombin Time 12.7 SEC (10.9-12.4)
[2024-12-10 07:53] LABS: Lactic Acid 1.3 mmol/L (0.5-2.0)
[2024-12-10 07:55] LABS: SLIDE REVIEW MANUAL DIFF
[2024-12-10 07:57] LABS: Alanine Aminotransferase 9 U/L (0-31); Albumin Level 3.3 g/dL (3.5-5.0); Alkaline Phosphatase 82 U/L (39-117); Anion Gap 14 (12-20); Aspartate Amino Transferase 21 U/L (5-31); Bilirubin Direct 0.4 mg/dL (0.0-0.5); Blood Urea Nitrogen 26 mg/dL (9-16); Calcium 8.8 mg/dL (8.4-10.2); Carbon Dioxide 21 mmol/L (22-29); Chloride 108 mmol/L (96-108); Creatinine Clr Calc Pharmacy 46.3; Estimated Glomerular Filt Rate > 60; Glucose Random 103 mg/dL (60-115); Lipase < 4 U/L (8-78); Potassium 3.6 mmol/L (3.3-5.1); Sodium 139 mmol/L (135-145); Total Protein 6.3 g/dL (6.5-8.0)
[2024-12-10 08:01] LABS: Atypical Lymph Absolute Manual 0.2 x10*3/uL; Atypical Lymphs Percent Manual 2 % (0-6); Band Neutrophils Percent 9 % (3-5); Monocytes Absolute Manual 0.4 X10*3/uL (0.1-1.2); Monocytes Percent Manual 4 % (2-11); Neutrophils Absolute Manual 8.6 X10*3/uL (2.0-8.3); Neutrophils Percent Manual 85 % (45-73)
[2024-12-10 08:03] LABS: Platelet Estimate SLIGHTLY DECREASED (NORMAL); Platelet Morphology Comment NORMAL; RBC Morphology NORMAL
[2024-12-10 08:04] LABS: Troponin-I High Sensitivity 68.9 ng/L (<3.5-17.0)
[2024-12-10 08:54] LABS: Appearance Urine Turbid; Color Urine Yellow; Glucose Urine UA Negative (Negative); Leukocyte Esterase Urine Large (3+) (Negative); Nitrite Urine Positive (Negative); PH >= 9.0 (5.0-9.0); Specific Gravity - Urine 1.015 (1.005-1.025); UMIC TRIGGER UACC YES; Urine Blood Small (1+) (Negative); Urine Ketones Trace mg/dL (Negative); Urine Protein 100 (2+) mg/dL (Neg-Trace)
[2024-12-10 08:55] LABS: B Type Natriuretic Peptide 137 pg/mL (<100)
[2024-12-10 09:03] LABS: Influenza A PCR NEGATIVE (Negative); Influenza B PCR NEGATIVE (Negative); Resp Syncy Virus RNA Qual PCR NEGATIVE (Negative); SARS COV2 PCR INHOUSE NEGATIVE (Negative)
[2024-12-10 09:03] LABS: Bacteria Urine 4+ (None Seen); Hyaline Casts Urine 0-2 /LPF (0-2); RBC Urine 0-2 /HPF (0-2); Squamous Epithelial Cell Urine 0-2 /HPF (0-2); UACC Culture Trigger YES; WBC Urine >50 /HPF (0-5)
[2024-12-10] MEDS: cefTRIAXone sodium 1 GM VIAL IVPUSH (09:36)
[2024-12-10] MEDS: 0.9 % Sodium Chloride 1,000 ML 500 ML IV (10:10)
[2024-12-10] MEDS: Albumin Human 25 % 50 ML 100 ML IV (11:22)
--- NOTE | 2024-12-10 11:24 | PC.NURSE ---
patient presented to the ED from [facility] with reports of fever, upon arrival patient fever 103.3, rectal temp probe placed for temp monitoring. patient initally responsive to noxious stimuli. patient fluids started, additional IV access obtained with lab work sent by this RN. patient over time in ED stay has become more responsive, talking and joking with staff but patient remains confused at baseline. patient initally thought she was in [place], now knows she is in [place], patient states she is here for breast reduction. patient has no complaints of pain at this time. straight cath performed for urine sample. patient became increasingly hypotensive, ED provider notified, medicated per MAR, patient remains alert, pleasantly confused. patient noted to have bruising to left side of face from fall she sustained prior to ED arrival
[2024-12-10 11:26] LABS: Troponin-I High Sensitivity 93.9 ng/L (<3.5-17.0)
[2024-12-10 11:28] LABS: Glucose, Whole Blood 104 mg/dL (60-115)
[2024-12-10] MEDS: Norepinephrine Bitartrate/D5W 8 MG/250 ML PLAST..BAG 7.35 MG IVCONT (11:34)
--- NOTE | 2024-12-10 11:49 | PC.NURSE ---
patient started on levophed gtt for bp 74/32, 0.05mcg/kg per DEC. patient remains awake and alert
[2024-12-10] MEDS: SODIUM CHLORIDE 900 ML IV (11:59)
--- NOTE | 2024-12-10 12:25 | MHC.CM.ED ---
Patient is currently in ER. Received notification from [facility] that patient is a LTC resident of their facility. Return referral made in [facility] so facility can follow for d/c needs.
--- NOTE | 2024-12-10 12:50 | PC.NURSE ---
DR Jaffe at bedside, requested levophed gtt to be trialed off, gtt paused. patient urine output 200cc
--- NOTE | 2024-12-10 13:57 | PC.NURSE ---
patient VSS at this time, update given to patient daughter Milagro when she called. patient is awake and alert, mentation waxes and weans. NS running 200ml/hr per [place]' request.
[2024-12-10] MEDS: Acetaminophen 325 MG TABLET 650 MG PO (14:12)
--- NOTE | 2024-12-10 15:10 | P.HPHOSP_ITS ---
History of Present Illness Date of Service: 12/10/24 Attending physician on admission: David Broderick Chief Complaint: fever This is an 89-year-old female who was sent in from [facility] due to altered mental status and fever. On arrival patient was noted to have temperature of a 103.3 degrees. Upon further workup her urinalysis was consistent with urinary tract infection. Around 08 21 her blood pressure began to decrease substantially and dropped as low as the 70s. She received IV fluid and was then started on Levophed drip. As her blood pressure improved she became more responsive and is currently awake and alert and able to provide a history. She was evaluated by the ICU attending but her blood pressure began to improve, she was weaned off of Levophed drip and since that time her blood pressure has remained above 100 systolic. It was deemed that she did not need ICU level of care. She denies any abdominal pain, nausea, vomiting, urinary symptoms. She was treated with IV ceftriaxone and will be admitted to the hospital for further management. Review of Systems 2 Review of Systems: Yes all other systems are reviewed and are negative Constitutional: Constitutional: Denies chills and Reports fever(s) Cardiovascular: Cardiovascular: Denies chest pain Gastrointestinal: Gastrointestinal: Denies abdominal pain, Denies diarrhea, Denies nausea and Denies vomiting Genitourinary: Genitourinary: Denies dysuria, Denies flank pain and Denies urinary urgency [facility] Medical History (Updated 12/10/24 @ 15:15 by TAE Mcqueen) Combined systolic and diastolic congestive heart failure Coronary artery disease Hypertension Hypercholesteremia Chronic renal failure Palpitations Anxiety Depression Diabetes mellitus, type 2 COPD (chronic obstructive pulmonary disease) Surgical History H/O coronary artery bypass surgery Social History Household Members: None Housing: Half-Way Do you presently have visiting nurse or other home services: No Alcohol intake: never Patient Tobacco Use Status: Never used Tobacco Advance Directives: Yes Advance Directives on File: Yes Advance Directives Date on File: 01/30/24 Do you have a plan to hurt others: No Plan service: No Meds Allergies Allergy/AdvReac Type Severity Reaction Status Date / Time lisinopril Allergy Unknown Unknown Uncoded 12/10/24 07:26 Active Medications: Current Medications Acetaminophen (Acetaminophen 325 Mg Tablet) 650 mg PO Q6H PRN PRN Reason: Pain, Mild 1-3,fever,headache Calcium Carbonate (Calcium Carbonate 750 Mg Tab.Chew) 750 mg PO Q4H PRN PRN Reason: Heartburn Ceftriaxone Sodium (Ceftriaxone Sodium 1 Gm Vial) 1 gm IVPUSH Q24H LAURA Enoxaparin Sodium (Enoxaparin Sodium 40 Mg/0.4 Ml Syringe) 40 mg SUBCUT Q24H LAURA Magnesium Hydroxide (Milk Of Magnesia 30 Ml Oral.Susp) 30 ml PO DAILY PRN PRN Reason: Constipation Melatonin (Melatonin 3 Mg Tablet) 6 mg PO BEDTIME PRN PRN Reason: Insomnia Sodium Chloride (0.9 % Sodium Chloride Flush 3 Ml Syringe) 3 ml IVFLUSH QSHIFT LAURA Home Medications ?Medication ?Instructions ?Recorded ?Confirmed ?Last Taken ?Type acetaminophen 325 mg tablet 650 mg PO Q6H PRN Fever Or Pain 04/05/24 12/10/24 Unknown History (Tylenol) amiodarone 200 mg tablet 200 mg PO DAILY 04/05/24 12/10/24 Unknown History ascorbic acid (vitamin C) 250 mg 500 mg PO DAILY 04/05/24 12/10/24 Unknown History tablet (Vitamin C) atorvastatin 20 mg tablet 20 mg PO BEDTIME 04/05/24 12/10/24 Unknown History bisacodyl 10 mg rectal suppository 10 mg [place] DAILY PRN Constipation 04/05/24 12/10/24 Unknown History (Dulcolax (bisacodyl)) cholecalciferol (vitamin D3) 25 50 mcg PO DAILY 04/05/24 12/10/24 Unknown History mcg (1,000 unit) tablet (Vitamin D3) dextromethorphan-guaifenesin 10 10 ml PO Q4H PRN Cough 04/05/24 12/10/24 Unknown History mg-100 mg/5 mL oral syrup diclofenac sodium 1 % topical gel 4 g topical DAILY 04/05/24 12/10/24 Unknown History diclofenac sodium 1 % topical gel 4 g topical Q6H PRN neck pain 04/05/24 12/10/24 Unknown History escitalopram oxalate 10 mg tablet 30 mg PO DAILY 04/05/24 12/10/24 Unknown History ferrous sulfate 325 mg (65 mg 325 mg PO DAILY 04/05/24 12/10/24 Unknown History iron) tablet,delayed release furosemide 20 mg tablet 10 mg PO DAILY 04/05/24 12/10/24 Unknown History gabapentin 300 mg capsule 300 mg PO BID 04/05/24 12/10/24 Unknown History loperamide 2 mg tablet 2 mg PO Q2H PRN Diarrhea 04/05/24 12/10/24 Unknown History magnesium hydroxide 400 mg/5 mL 30 ml PO DAILY PRN Constipation 04/05/24 12/10/24 Unknown History oral suspension (Milk of Magnesia) pantoprazole 40 mg tablet,delayed 40 mg PO DAILY@0630 04/05/24 12/10/24 Unknown History release polyethylene glycol 3350 17 gram 17 g PO DAILY 04/05/24 12/10/24 Unknown History oral powder packet (Miralax) ropinirole 2 mg tablet 2 mg PO BID 04/05/24 12/10/24 Unknown History sennosides 8.6 mg-docusate sodium 1 tab-cap PO BID PRN Constipation 04/05/24 12/10/24 Unknown History 50 mg tablet (Senna with Docusate Sodium) sodium chloride 0.65 % nasal spray 2 spray intranasal BID 04/05/24 12/10/24 Unknown History aerosol (Saline Nasal) sodium phosphates 19 gram-7 118 ml [place] DAILY PRN Constipation 04/05/24 12/10/24 Unknown History gram/118 mL enema (Fleet Enema) tramadol 50 mg tablet 50 mg PO Q6H 04/05/24 12/10/24 Unknown History trazodone 50 mg tablet 25 mg PO BEDTIME 04/05/24 12/10/24 Unknown History bacitracin 500 unit/gram topical 1 appl topical BID wound care 12/10/24 12/10/24 Unknown History ointment cleanse bacitracin 500 unit/gram topical 1 appl topical DAILY PRN soilage 12/10/24 12/10/24 Unknown History ointment cleanse fluticasone furoate 100 1 inh inhalation DAILY 12/10/24 12/10/24 Unknown History mcg-vilanterol 25 mcg/dose inhalation powder (Breo Ellipta) furosemide 20 mg tablet 20 mg PO DAILY PRN Weight Gain 12/10/24 12/10/24 Unknown History Physical Exam 2 Vital Signs and Narrative: Vital Signs: Last Vital Signs Temp 100.8 F H 12/10/24 15:02 Pulse 65 12/10/24 15:02 Resp 20 12/10/24 15:02 BP 117/46 L 12/10/24 15:02 Pulse Ox 99 12/10/24 15:02 O2 Del Method Room Air 12/10/24 15:02 BMI result Body Mass Index 29.7 Const: General: cooperative, comfortable, no acute distress, alert and awake Nutritional Appearance: average body habitus Orientation/consciousness: p atient oriented x3 Resp: Effort & Inspection: normal respiratory effort, no respiratory distress and no use of accessory muscles Cardio: Rate: regular rate GI: Inspection: No distended Palpation (GI): Soft to palpation and nontender Neuro: General: patient oriented x3, moves all extremities and CN's II-XI intact bilaterally Extrem: General: Yes no pedal edema Results Labs 12/10/24 07:32 12/10/24 07:32 Labs: Laboratory Results - last 24 hr 12/10/24 12/10/24 12/10/24 07:32 07:55 08:48 MCV 97.9 MCH 33.2 H MCHC 33.9 RDW 14.2 Plt Count 143 L MPV 9.5 Immature Gran % (Auto) Cancelled Neut % (Auto) Cancelled Lymph % (Auto) Cancelled [place] % (Auto) Cancelled Eos % (Auto) Cancelled Baso % (Auto) Cancelled Lymph # (Auto) Cancelled [place] # (Auto) Cancelled Eos # (Auto) Cancelled Baso # (Auto) Cancelled Abs Immat Gran (auto) Cancelled Absolute Neuts (auto) Cancelled Absolute Nucleated RBC 0.000 Nucleated RBC % (auto) 0.0 Neutrophils % (Manual) 85 H Band Neutrophils % 9 H Atypical Lymphs % (Man) 2 Monocytes % (Manual) 4 Abs Neuts (Manual) 8.6 H Atyp Lymphs # (Manual) 0.2 Monocytes # (Manual) 0.4 Platelet Estimate SLIGHTLY DECREASED Plt Morphology Comment NORMAL RBC Morphology NORMAL Smear Tech's Comments MANUAL DIFF PT 12.7 H INR 1.1 Anion Gap 14 Estim Creat Clear Calc 46.3 Estimated GFR > 60 POC Glucose Random Glucose 103 Lactic Acid 1.3 Calcium 8.8 Total Bilirubin 1.0 Direct Bilirubin 0.4 AST 21 ALT 9 Alkaline Phosphatase 82 B-Natriuretic Peptide 137 H Total Protein 6.3 L Albumin 3.3 L Lipase < 4 L Urine Color Yellow Urine Appearance Turbid Urine pH >= 9.0 Ur Specific [employer] [place] 1.015 Urine Protein 100 (2+) H Urine Glucose (UA) Negative Urine Ketones Trace Urine Blood Small (1+) H Urine Nitrite Positive H Ur Leukocyte Esterase Large (3+) H Urine RBC 0-2 Urine WBC >50 H Ur Squamous Epith Cells 0-2 Urine Bacteria 4+ Hyaline Casts 0-2 Influenza Type A (PCR) NEGATIVE Influenza Type B (PCR) NEGATIVE RSV RNA Qual (PCR) NEGATIVE SARS-CoV-2 RNA (RT-PCR) NEGATIVE 12/10/24 11:25 MCV MCH MCHC RDW Plt Count MPV Immature Gran % (Auto) Neut % (Auto) Lymph % (Auto) [place] % (Auto) Eos % (Auto) Baso % (Auto) Lymph # (Auto) [place] # (Auto) Eos # (Auto) Baso # (Auto) Abs Immat Gran (auto) Absolute Neuts (auto) Absolute Nucleated RBC Nucleated RBC % (auto) Neutrophils % (Manual) Band Neutrophils % Atypical Lymphs % (Man) Monocytes % (Manual) Abs Neuts (Manual) Atyp Lymphs # (Manual) Monocytes # (Manual) Platelet Estimate Plt Morphology Comment RBC Morphology Smear Tech's Comments PT INR Anion Gap Estim Creat Clear Calc Estimated GFR POC Glucose 104 Random Glucose Lactic Acid Calcium Total Bilirubin Direct Bilirubin AST ALT Alkaline Phosphatase B-Natriuretic Peptide Total Protein Albumin Lipase Urine Color Urine Appearance Urine pH Ur Specific [employer] [place] Urine Protein Urine Glucose (UA) Urine Ketones Urine Blood Urine Nitrite Ur Leukocyte Esterase Urine RBC Urine WBC Ur Squamous Epith Cells Urine Bacteria Hyaline Casts Influenza Type A (PCR) Influenza Type B (PCR) RSV RNA Qual (PCR) SARS-CoV-2 RNA (RT-PCR) Imaging Radiologist's Impressions: Impressions Chest X-Ray 12/10/24 07:17 IMPRESSION: Chronic interstitial lung disease. Superimposed mild interstitial lung edema versus small airway inflammatory process cannot be excluded. Electronically signed by: Art Mckeon MD 12/10/2024 07:56 AM EST RP Head CT 12/10/24 09:25 IMPRESSION: No acute intracranial process. Electronically signed by: Marcin Mccrary MD 12/10/2024 10:28 AM EST RP Assessment and Plan (1) Acute UTI: Status: Acute Plan This is an 89 year old female with history of diet-controlled diabetes, CAD s/p CABG, HLD, HTN, anxiety/depression, COPD, RLS, aflutter, combined diastolic and systolic CHF who was sent from [facility] due to fever and altered mental status found to have UTI severe sepsis due to UTI only had fever, never met SIRS criteria but at 11:15 developed severe hypotension requiring IVF and briefly requiring pressors in the ED received almost 5L NS in the ED blood pressure improved after levophed and levophed drip was discontinued around 1250. seen by ICU attended and deemed not to need ICU level of care Lactic acid normal received IV ceftriaxone, will continue follow urine culture, blood cultures if bp remains stable will hold off on further IV fluid given underlying CHF thrmbocytopenia likey due to sepsis follow CBC elevated cardiac enzymes likely type 2 NM due to sepsis/hypotension no chest pain, no acute ischemic changes on EKG First 2 trops overall flat, will trend third trop Toxic metabolic encephalopathy Noted on arrival. Seems to have improved Likely due to fever, hypotension Diet controlled DM DM diet atrial flutter continue amiodorone not on AC CAD/HLD continue statin Combined systolic and diastolic CHF No echocardiogram in system Due to significant amount of IV fluid we will monitor respiratory status closely Hold diuretics due to hypotension, if blood pressure remains stable consider resuming in a.m. RLS continue requip chronic pain continue ultram, gabapentin COPD no acute exacerbation MOLST form in chart DNR/DNI Patient will likely require 2 midnight stay in the hospital for management of sepsis due to UTI Quality Stroke Does the patient have a stroke diagnosis?: No VTE Prior VTE?: No VTE Risk Level:: Medical - moderate - high VTE Device Contraindication: N/A - Device Ordered VTE Drug Contraindication: N/A - Med Ordered
--- NOTE | 2024-12-10 15:23 | PHA.MEDREC ---
Pharmacy Consult ? Medication Reconciliation Pharmacy has completed the medication reconciliation. Utilized list from facility.
[2024-12-10 15:51] LABS: Troponin-I High Sensitivity 153.1 ng/L (<3.5-17.0)
[2024-12-10] MEDS: traMADoL HCL 50 MG TABLET PO (15:58)
[2024-12-10] MEDS: Enoxaparin Sodium 40 MG/0.4 ML SYRINGE SUBCUT ×2 (15:59→22:43)
--- NOTE | 2024-12-10 19:00 | PC.NURSE ---
per mar, sepsis fluids to complete at 2300. pt noted to not be on fluids at time of assuming care of pt, unsure when fluids were completed.
--- NOTE | 2024-12-10 20:52 | PC.NURSE ---
this rn at bedside assisting pt with bed change, pt noted to have medium amount of soft stool. as RN was exiting room, pt grabbed chest and reporting 10/10 crushing chest pain radiating into throat. provider immediately aware, ekg obtained and sent to provider..
--- NOTE | 2024-12-10 21:04 | PC.NURSE ---
provider at bedside assessing pt
[2024-12-10 21:30] LABS: Troponin-I High Sensitivity 136.2 ng/L (<3.5-17.0)
--- NOTE | 2024-12-10 21:33 | PM.EVENT ---
Event Note Date of Service: 12/10/24 Event Note: Notified by nursing that pt was complaining of crushing chest pain as well as feeling like her throat was closing. Pt describes chest pain as a constant pressure like a large weight on her chest. Pt with a hx of CAD s/p CABG; unable to state whether this chest pain was similar to symptoms she was experiencing prior to her RI. pt with prior delta change in troponins earlier in the day, initial troponin 68.9 with repeat 93.9 and delta change to 153.1. Checked a 4th troponin and was flat at 136.2. EKG showing normal sinus rhythm without significant ischemic changes. Elevated troponins most likely type 2 in the setting of increased demand, however will give pt additional Lovenox 40 mg subQ to reach therapeutic Lovenox dosing. Will repeat troponin in the morning and consider continuing anticoagulation if warranted. Will give pt Benadryl 25 mg IV for throat tightness. Time Spent With Patient Time: Total time managing care of this patient today ____ minutes.
[2024-12-10] MEDS: diphenhydrAMINE HCL 50 MG/ML VIAL 25 MG IVPUSH (21:35)
[2024-12-10] MEDS: Piperacillin Sodium/Tazobactam 3.375 GM in 0.9 % Sodium Chloride 50 ML IV (22:44)
[2024-12-11] VITALS (9 sets, daily range): BP systolic 114–175; BP diastolic 53–69; PULSE 53–63; RESP 12–20; TEMP 36.6–37.7; O2SAT 92–100
[2024-12-11] MEDS: Piperacillin Sodium/Tazobactam 3.375 GM in 0.9 % Sodium Chloride 50 ML IV ×4 (04:38→21:02)
--- NOTE | 2024-12-11 04:53 | PC.NURSE ---
pt assisted with incontinence bowel care, new purewick placed. pt medicated per dec.
[2024-12-11] MEDS: Omeprazole 20 MG CAPSULE.DR PO (06:26)
[2024-12-11 06:51] LABS: Hematocrit 35.9 % (37.0-47.0); Hemoglobin 12.1 g/dl (12.0-16.0); Mean Corpuscular HGB Conc 33.7 g/dl (31.0-35.0); Mean Corpuscular Hemoglobin 33.2 pg (27.0-33.0); Mean Corpuscular Volume 98.6 fL (80.0-98.0); Mean Platelet Volume 9.8 fL (9.4-12.3); Platelet Count 142 X10*3/uL (160-400); Red Blood Count 3.64 X10*6/uL (4.20-5.50); Red Cell Distribution Width 14.1 % (11.0-16.0)
[2024-12-11 07:00] LABS: Anion Gap 13 (12-20); Blood Urea Nitrogen 19 mg/dL (9-16); Calcium 8.8 mg/dL (8.4-10.2); Carbon Dioxide 19 mmol/L (22-29); Chloride 110 mmol/L (96-108); Creatinine Clr Calc Pharmacy 56.3; Estimated Glomerular Filt Rate > 60; Glucose Random 99 mg/dL (60-115); Potassium 3.4 mmol/L (3.3-5.1); Sodium 139 mmol/L (135-145)
--- NOTE | 2024-12-11 07:00 | CA_ITS ---
Transthoracic Echocardiogram Patient (Last, First, Middle): Shreya Calvert, Gender: Female Date of : 1935 Age: 89 Procedure Date: 12/11/2024 Procedure Type: Transthoracic Echocardiogram [place] [facility] [place] Height: 162.56 cm Weight: 78.02 kg BSA: 1.83 m2 Heart Rate: 54 bpm BP: 175 / 69 mmHg Director Of Speech Pathology: CASSANDRA Langston MD: Carmina STRONG Income Tax Investigator: Luis Bonner MD Symptoms: elevated cardiac enzymes Study Quality: Fair ECG Rhythm: Bradycardia Conclusions: - 1. Normal LV ejection fraction 55-60% with grade 3 diastolic dysfunction 2. Mild biatrial enlargement 3. Normal cardiac valvular Dopplers next 4. Mildly to moderately elevated right ventricular systolic pressure with mildly elevated right atrial pressures 5. No gross pericardial effusion Findings Procedure Information The study quality is limited by the patients inability to tolerate the test. Left Ventricle Normal left ventricular size, thickness, and systolic function. The visually estimated ejection fraction is between 55-60%. Spectral Doppler is indicative of a restrictive filling pattern. Elevated left atrial and left ventricular end-diastolic pressures. E/E prime ratio is >15, consistent with elevated filling pressures. Evidence suggests grade III (severe) diastolic dysfunction. Right Ventricle Mildly increased right ventricular cavity size. There is low normal right ventricular systolic function. Atria The left atrium is mildly dilated. There is no evidence of interatrial shunt. The right atrium is mildly dilated. Aortic Valve There is mild calcification of the aortic valve. There is mild thickening of the aortic valve. There is no aortic valve stenosis. There is no aortic valve regurgitation. Mitral Valve Normal mitral valve structure and function. There is trace mitral valve regurgitation. There is no mitral valve stenosis. Pulmonic Valve The pulmonic valve was not well visualized. Tricuspid Valve There is mild tricuspid valve regurgitation. Mildly elevated right atrial pressure. Mild to moderate pulmonary hypertension is present. Great Vessels All visible segments of the aorta are normal in size. The pulmonary artery was not well visualized. There is no dilatation of the ascending aorta measuring 3.30 cm. Venous The inferior vena cava is mildly dilated and collapses less than 50% with inspiration. Pericardium/Pleural There is no evidence of pericardial effusion. Prior Study Comparison No prior study available for comparison. Measurements 2D Linear Measurements IVSd: 0.66 0.6-0.9/0.6-1.0 cm LVIDd: 4.77 3.9-5.3/4.2-5.9 cm LVIDd Index: 2.61 2.4-3.2/2.2-3.1 cm/m2 LVIDs: 2.41 2.0-3.6 cm LVPWd: 0.58 0.7-1.1 cm LA Diam: 3.70 2.7-3.8/3.0-4.0 cm LAIDs Index: 2.02 1.5-2.3 cm/m2 LV Mass: 113.34 67-162/88-224 g LV Mass Index: 61.94 43-95/49-115 g/m2 LVOT Diam: 2.10 3.0+(-)1.3 cm 2D Systolic Function EF 4C: 72.00 >55% EF 2C: 42.40 >55% EF BiP: 59.40 >55% Mitral Valve MV Pk E: 1.17 MV PK A: 0.68 MV Decel Time: 143.00 E/A: 1.70 E'Lateral: 9.90 E'Medial: 7.29 E/E' Med: 16.00 E/E' Lat: 11.80 PHT: 42.00 MVA PHT: 5.24 Decel [place]: 8.15 Aortic Valve AoV Pk M[place]: 1.41 AoV Pk Grad: 8.00 RONN: 2.28 LVOT LVOT Pk [place]: 1.01 LVOT Mn [place]: 0.63 LVOT VTI: 0.22 LVOT Pk Grad: 4.00 LVOT Mn Grad: 2.00 LVOT Diam: 2.10 LVOT Area: 3.46 Diastolic Function MV Pk E: 1.17 MV Pk A: 0.68 E/A: 1.70 E'Medial: 7.29 E/E' Med: 16.00 E' Laterial: 9.90 E/E' Lat: 11.80 Right Ventricle TAPSE (mm): 17.40 TVS' Miquel: 10.40 Tricuspid Valve TR Pk [place]: 3.19 TR Pk Grad: 41.00 RA Press: 8.00 RVSP: 49.00 Great Vessels Aorta Sinus of Valsalva: 3.00 2.0-3.5 cm Ao Asc: 3.30 2.1-3.4 cm Pulmonary Veins Pulm Vein S/D 1.00 Pulmonary Valve PV Pk Miquel: 0.83 Peak PV Grad: 3.00 WV Pk Miquel: 1.98 Updated in Other Vendor System with Status of Final Luis Bonner MD electronically signed on 12/11/2024 2:38:15 PM with status of Final
[2024-12-11 07:13] LABS: Troponin-I High Sensitivity 116.1 ng/L (<3.5-17.0)
[2024-12-11] MEDS: 0.9 % Sodium Chloride Flush 3 ML SYRINGE IVFLUSH ×2 (07:23→16:23)
--- NOTE | 2024-12-11 08:25 | MHC.CM.PN ---
Patient is here with AMS; IMM will be mailed certified letter to Daughter/HCP/Milagro and a copy will be placed on the chart. Patient is a LTC Resident and [facility] bedhold at [facility] and the goal is to return there at dc. CM has initiated and will follow for dc planning. ROSE has requested HCP from [facility].
[2024-12-11] MEDS: Escitalopram Oxalate 10 MG TABLET 30 MG PO (08:51)
[2024-12-11] MEDS: Amiodarone HCL 200 MG TABLET PO (08:52)
[2024-12-11] MEDS: Furosemide 20 MG TABLET 10 MG PO (08:52)
[2024-12-11] MEDS: Ferrous Sulfate 324 MG TABLET.DR PO (08:52)
[2024-12-11] MEDS: traMADoL HCL 50 MG TABLET PO (08:52)
[2024-12-11] MEDS: Gabapentin 300 MG CAPSULE PO ×2 (08:52→21:02)
[2024-12-11] MEDS: Ascorbic Acid 500 MG TABLET PO (08:52)
[2024-12-11] MEDS: Cholecalciferol (Vitamin D3) 25 MCG TABLET 50 MCG PO (08:52)
[2024-12-11] MEDS: rOPINIRole HCL 2 MG TABLET PO ×2 (09:35→21:02)
--- NOTE | 2024-12-11 10:28 | PM.CNCAR ---
History of Present Illness History of Present Illness Date of Service: 12/11/24 Requesting physician: Carmina Land Consult reason: troponin elevation Chief complaint: UTI Narrative: I was consulted to see [id number] in cardiology consultation today for elevated troponins. She is a pleasant 89-year-old woman who is now alert, referred from [facility] due to altered mental status. In the ER then became significantly hypotensive and add troponins were drawn which was slightly elevated and subsequently elevated consistent with myocardial injury. 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 Since then she said her chest pain syndrome has been better. She had 1 episode of arm pain but for which she was evaluated and this was reported to be nonischemic at that point time. She also has history of ?? heart failure question preserved ejection fraction unknown. She does not follow with a gum dipper. She came in yesterday with altered mental status had no chest pain syndrome. EKG showed no acute ischemia. Troponin was drawn for unclear reason. However she was subsequently been diagnose with sepsis related to acute UTI which led to her secondary myocardial injury. Currently symptom-free. Blood pressure is now elevated. Not sure if she was significantly labile blood pressure as an outpatient. She was also on amiodarone for unclear reason she was not on oral anticoagulant and not sure she was history of atrial fibrillation. She is on furosemide on a regular basis. No other antihypertensives. Review of Systems Constitutional: Constitutional: Reports fever(s) and Reports weakness Eyes: Eyes: Reports no additional eye complaints Cardiovascular: Cardiovascular: Reports no additional cardiovascular complaints Respiratory: Respiratory: Reports no additional respiratory complaints Gastrointestinal: Gastrointestinal: Reports no additional gastrointestinal complaints Genitourinary: Genitourinary: Reports no additional female genitourinary complaints Musculoskeletal: Musculoskeletal: Reports no additional musculoskeletal complaints Neurologic: Reports system reviewed and no additional complaints, except as documented and Reports weakness Psychiatric: Psychiatric: Reports no additional psychiatric complaints [facility] Past Medical History Medical History Combined systolic and diastolic congestive heart failure Coronary artery disease Hypertension Hypercholesteremia Chronic renal failure Palpitations Anxiety Depression Diabetes mellitus, type 2 COPD (chronic obstructive pulmonary disease) Surgical History Surgical History H/O coronary artery bypass surgery Social History Social History Household Members: None Housing: [facility] Do you presently have visiting nurse or other home services: No Alcohol intake: never Patient Tobacco Use Status: Never used Tobacco Advance Directives Date on File: 01/30/24 service: No Meds Allergies Allergy/AdvReac Type Severity Reaction Status Date / Time lisinopril Allergy Unknown Unknown Uncoded 12/10/24 07:26 Active Medications: Current Medications Acetaminophen (Acetaminophen 325 Mg Tablet) 650 mg PO Q6H PRN PRN Reason: Pain, Mild 1-3,fever,headache Amiodarone HCl (Amiodarone Hcl 200 Mg Tablet) 200 mg PO DAILY [facility] Last Admin: 12/11/24 08:52 Dose: 200 mg Ascorbic Acid (Ascorbic Acid 500 Mg Tablet) 500 mg PO DAILY [facility] Last Admin: 12/11/24 08:52 Dose: 500 mg Atorvastatin Calcium (Atorvastatin Calcium 20 Mg Tablet) 20 mg PO BEDTIME [facility] Last Admin: 12/10/24 21:35 Dose: Not Given Bacitracin (Bacitracin Oint 14 Gm Tube) 1 appl TOPICAL BID [facility]; Protocol Last Admin: 12/11/24 09:34 Dose: Not Given Bisacodyl (Bisacodyl 10 Mg Supp.Rect) 10 mg [place] DAILY PRN PRN Reason: Constipation Calcium Carbonate (Calcium Carbonate 750 Mg Tab.Chew) 750 mg PO Q4H PRN PRN Reason: Heartburn Enoxaparin Sodium (Enoxaparin Sodium 40 Mg/0.4 Ml Syringe) 40 mg SUBCUT Q24H [facility] Last Admin: 12/10/24 15:59 Dose: 40 mg Escitalopram Oxalate (Escitalopram Oxalate 10 Mg Tablet) 30 mg PO DAILY [facility] Last Admin: 12/11/24 08:51 Dose: 30 mg Ferrous Sulfate (Ferrous Sulfate 324 Mg Tablet.Dr) 324 mg PO DAILY [facility] Last Admin: 12/11/24 08:52 Dose: 324 mg Fluticasone/Vilanterol (Fluticasone/Vilanterol 100/25 Blst.W.Dev) 1 puff INHALE DAILY [facility] Last Admin: 12/11/24 07:43 Dose: Not Given Furosemide (Furosemide 20 Mg Tablet) 10 mg PO DAILY [facility]; Protocol Last Admin: 12/11/24 08:52 Dose: 10 mg Gabapentin (Gabapentin 300 Mg Capsule) 300 mg PO BID [facility] Last Admin: 12/11/24 08:52 Dose: 300 mg Guaifenesin/Dextromethorphan (Guaifenesin Dm 100/10/5 Ml 5 Ml Syrup) 10 ml PO Q4H PRN PRN Reason: Cough Piperacillin Sod/Tazobactam (Sod 3.375 gm/ Sodium Chloride) 50 mls @ 100 mls/hr IV Q6H [facility] Last Infusion: 12/11/24 05:10 Dose: Infused Magnesium Hydroxide (Milk Of Magnesia 30 Ml Oral.Susp) 30 ml PO DAILY PRN PRN Reason: Constipation Melatonin (Melatonin 3 Mg Tablet) 6 mg PO BEDTIME PRN PRN Reason: Insomnia Omeprazole (Omeprazole 20 Mg Capsule.Dr) 20 mg PO DAILY@0630 [facility] Last Admin: 12/11/24 06:26 Dose: 20 mg Polyethylene Glycol (Polyethylene Glycol 3350 17 Gm Powd.Pack) 17 gm PO DAILY [facility] Last Admin: 12/11/24 08:53 Dose: Not Given Ropinirole HCl (Ropinirole Hcl 2 Mg Tablet) 2 mg PO BID [facility] Last Admin: 12/11/24 09:35 Dose: 2 mg Sodium Chloride (0.9 % Sodium Chloride Flush 3 Ml Syringe) 3 ml IVFLUSH QSHIFT [facility] Last Admin: 12/11/24 07:23 Dose: 3 ml Sodium Chloride (Sodium Chloride 0.65 % Nasal 44 Ml Sprbtl) 2 spray NOSTRIL-B BID [facility] Last Admin: 12/11/24 09:36 Dose: Not Given Tramadol HCl (Tramadol Hcl 50 Mg Tablet) 50 mg PO Q6H PRN PRN Reason: Pain, Moderate(Pain Scale 4-6) Last Admin: 12/11/24 08:52 Dose: 50 mg Trazodone HCl (Trazodone Hcl 25 Mg Halftab) 25 mg PO BEDTIME [facility] Last Admin: 12/10/24 21:37 Dose: Not Given Vitamin D (Cholecalciferol (Vitamin D3) 25 Mcg Tablet) 50 mcg PO DAILY [facility] Last Admin: 12/11/24 08:52 Dose: 50 mcg Home Medications ?Medication ?Instructions ?Recorded ?Confirmed ?Last Taken ?Type acetaminophen 325 mg tablet 650 mg PO Q6H PRN Fever Or Pain 04/05/24 12/10/24 Unknown History (Tylenol) amiodarone 200 mg tablet 200 mg PO DAILY 04/05/24 12/10/24 Unknown History ascorbic acid (vitamin C) 250 mg 500 mg PO DAILY 04/05/24 12/10/24 Unknown History tablet (Vitamin C) atorvastatin 20 mg tablet 20 mg PO BEDTIME 04/05/24 12/10/24 Unknown History bisacodyl 10 mg rectal suppository 10 mg LA DAILY PRN Constipation 04/05/24 12/10/24 Unknown History (Dulcolax (bisacodyl)) cholecalciferol (vitamin D3) 25 50 mcg PO DAILY 04/05/24 12/10/24 Unknown History mcg (1,000 unit) tablet (Vitamin D3) dextromethorphan-guaifenesin 10 10 ml PO Q4H PRN Cough 04/05/24 12/10/24 Unknown History mg-100 mg/5 mL oral syrup diclofenac sodium 1 % topical gel 4 g topical DAILY 04/05/24 12/10/24 Unknown History diclofenac sodium 1 % topical gel 4 g topical Q6H PRN neck pain 04/05/24 12/10/24 Unknown History escitalopram oxalate 10 mg tablet 30 mg PO DAILY 04/05/24 12/10/24 Unknown History ferrous sulfate 325 mg (65 mg 325 mg PO DAILY 04/05/24 12/10/24 Unknown History iron) tablet,delayed release furosemide 20 mg tablet 10 mg PO DAILY 04/05/24 12/10/24 Unknown History gabapentin 300 mg capsule 300 mg PO BID 04/05/24 12/10/24 Unknown History loperamide 2 mg tablet 2 mg PO Q2H PRN Diarrhea 04/05/24 12/10/24 Unknown History magnesium hydroxide 400 mg/5 mL 30 ml PO DAILY PRN Constipation 04/05/24 12/10/24 Unknown History oral suspension (Milk of Magnesia) pantoprazole 40 mg tablet,delayed 40 mg PO DAILY@0630 04/05/24 12/10/24 Unknown History release polyethylene glycol 3350 17 gram 17 g PO DAILY 04/05/24 12/10/24 Unknown History oral powder packet (Miralax) ropinirole 2 mg tablet 2 mg PO BID 04/05/24 12/10/24 Unknown History sennosides 8.6 mg-docusate sodium 1 tab-cap PO BID PRN Constipation 04/05/24 12/10/24 Unknown History 50 mg tablet (Senna with Docusate Sodium) sodium chloride 0.65 % nasal spray 2 spray intranasal BID 04/05/24 12/10/24 Unknown History aerosol (Saline Nasal) sodium phosphates 19 gram-7 118 ml LA DAILY PRN Constipation 04/05/24 12/10/24 Unknown History gram/118 mL enema (Fleet Enema) tramadol 50 mg tablet 50 mg PO Q6H 04/05/24 12/10/24 Unknown History trazodone 50 mg tablet 25 mg PO BEDTIME 04/05/24 12/10/24 Unknown History bacitracin 500 unit/gram topical 1 appl topical BID wound care 12/10/24 12/10/24 Unknown History ointment cleanse bacitracin 500 unit/gram topical 1 appl topical DAILY PRN soilage 12/10/24 12/10/24 Unknown History ointment cleanse fluticasone furoate 100 1 inh inhalation DAILY 12/10/24 12/10/24 Unknown History mcg-vilanterol 25 mcg/dose inhalation powder (Breo Ellipta) furosemide 20 mg tablet 20 mg PO DAILY PRN Weight Gain 12/10/24 12/10/24 Unknown History Physical Exam Vital Signs: Vital Signs: Last Vital Signs Temp 100 F 12/11/24 08:57 Pulse 63 12/11/24 08:57 Resp 18 12/11/24 08:57 BP 170/66 H 12/11/24 08:57 Pulse Ox 98 12/11/24 08:57 O2 Del Method Room Air 12/11/24 08:57 BMI result Body Mass Index 29.7 Const: General: cooperative, comfortable, no acute distress, alert and awake Nutritional Appearance: average body habitus Orientation/consciousness: patient oriented x3 HEENT: Head: Yes normocephalic and Yes atraumatic Neck: Neck: Yes trachea midline, Yes supple and Yes no JVD Resp: Effort & Inspection: normal respiratory effort Auscultation: clear to auscultation bilaterally Cardio: Jugular venous distension: no JVD Palpation: normal PMI Rate: regular rate Rhythm: regular rhythm Heart sounds: S1 normal heart sound present, S2 normal heart sound present, no click, no gallops, no murmurs and no rubs GI: Auscultation: normal bowel sounds Skin: General skin exam: no rashes or lesions noted Neuro: General: patient oriented x3 and no focal motor deficits Extrem: General: Yes no clubbing, cyanosis or edema Psych: Appearance: grossly normal Objective Labs and Meds 12/11/24 06:28 12/11/24 06:28 Lab results: Laboratory Results - last 24 hr 12/10/24 12/10/24 12/10/24 10:46 11:25 15:15 WBC RBC Hgb Hct MCV MCH MCHC RDW Plt Count MPV Absolute Nucleated RBC Nucleated RBC % (auto) Sodium Potassium Chloride Carbon Dioxide Anion Gap BUN Creatinine Estim Creat Clear Calc Estimated GFR POC Glucose 104 Random Glucose Calcium Troponin I High Sens 93.9 H* 153.1 H* D 12/10/24 12/11/24 21:00 06:28 WBC 11.0 H RBC 3.64 L Hgb 12.1 Hct 35.9 L MCV 98.6 H MCH 33.2 H MCHC 33.7 RDW 14.1 Plt Count 142 L MPV 9.8 Absolute Nucleated RBC 0.000 Nucleated RBC % (auto) 0.0 Sodium 139 Potassium 3.4 Chloride 110 H Carbon Dioxide 19 L Anion Gap 13 BUN 19 H Creatinine 0.70 Estim Creat Clear Calc 56.3 Estimated GFR > 60 POC Glucose Random Glucose 99 Calcium 8.8 Troponin I High Sens 136.2 H* 116.1 H* EKG shows normal sinus rhythm nonspecific ST abnormality Imaging Radiologist's impression: Impressions Head CT 12/10/24 09:25 IMPRESSION: No acute intracranial process. Electronically signed by: Marcin Mccrary MD 12/10/2024 10:28 AM [facility] Assessment and Plan (1) Non-ischemic myocardial injury (non-traumatic): Status: Acute Myocardial injury in this elderly woman most likely due to hypotension as well as sepsis with known prior history of coronary artery disease, could also be secondary risk stress-induced cardiomyopathy. Patient currently symptom-free and has not had any ischemic symptoms at all. He was no indication for IV heparin. Echocardiogram has been requested will reviewed later. She would not bladder changer plan. She should be on aspirin high-intensity statin therapy at least 40 mg of atorvastatin. Her blood pressure is elevated current point time. Closely follow would start on low-dose amlodipine to see how she response to it at 2.5 mg. Not sure as to why she is on amiodarone therapy. This needs to be investigated. Will sign of the case. Thank you for allowing me to partake in her care Procedures Date of Service Date of Service: 12/11/24
--- NOTE | 2024-12-11 14:00 | HO.PM.IMPN ---
Subjective Subjective Date of Service: 12/11/24 Interval History: seen and examined this morning follow up for UTI had chest pain overnight, no pain this am Review of Systems Review of Systems: Yes all other systems are reviewed and are negative Constitutional Constitutional: Denies chills and Denies fever(s) Cardiovascular Cardiovascular: Denies chest pain, Denies palpitations and Denies dyspnea Respiratory Respiratory: Denies cough and Denies dyspnea Gastrointestinal Gastrointestinal: Denies abdominal pain, Denies nausea and Denies vomiting Endocrine Endocrine: Denies palpitations Physical Exam Vital Signs: Vital Signs: Last Vital Signs Temp 98.2 F 12/11/24 12:00 Pulse 54 12/11/24 12:00 Resp 20 12/11/24 12:00 BP 146/66 H 12/11/24 12:00 Pulse Ox 95 12/11/24 12:00 O2 Del Method Room Air 12/11/24 12:00 BMI result Body Mass Index 30.0 Const: General: cooperative, comfortable, no acute distress, alert and awake Nutritional Appearance: average body habitus Orientation/consciousness: patient oriented x3 Resp: Effort & Inspection: normal respiratory effort, no respiratory distress and no use of accessory muscles Cardio: Rate: regular rate GI: Inspection: No distended Palpation (GI): Soft to palpation and nontender Neuro: General: patient oriented x3, moves all extremities and CN's II-XI intact bilaterally Extrem: General: Yes no pedal edema Objective Data Active Medications Acetaminophen (Acetaminophen 325 Mg Tablet) 650 mg PO Q6H PRN PRN Reason: Pain, Mild 1-3,fever,headache Amiodarone HCl (Amiodarone Hcl 200 Mg Tablet) 200 mg PO DAILY [facility] Last Admin: 12/11/24 08:52 Dose: 200 mg Documented By: JAREN Ascorbic Acid (Ascorbic Acid 500 Mg Tablet) 500 mg PO DAILY [facility] Last Admin: 12/11/24 08:52 Dose: 500 mg Documented By: JAREN Atorvastatin Calcium (Atorvastatin Calcium 20 Mg Tablet) 20 mg PO BEDTIME [facility] Last Admin: 12/10/24 21:35 Dose: Not Given Documented By: CODY Non-Admin Reason: Physician Held Med Bacitracin (Bacitracin Oint 14 Gm Tube) 1 appl TOPICAL BID [facility]; Protocol Last Admin: 12/11/24 09:34 Dose: Not Given Documented By: SAROJ Non-Admin Reason: Med Not Available Bisacodyl (Bisacodyl 10 Mg Supp.Rect) 10 mg [place] DAILY PRN PRN Reason: Constipation Calcium Carbonate (Calcium Carbonate 750 Mg Tab.Chew) 750 mg PO Q4H PRN PRN Reason: Heartburn Enoxaparin Sodium (Enoxaparin Sodium 40 Mg/0.4 Ml Syringe) 40 mg SUBCUT Q24H [facility] Last Admin: 12/10/24 15:59 Dose: 40 mg Documented By: RUSH Escitalopram Oxalate (Escitalopram Oxalate 10 Mg Tablet) 30 mg PO DAILY [facility] Last Admin: 12/11/24 08:51 Dose: 30 mg Documented By: JAREN Ferrous Sulfate (Ferrous Sulfate 324 Mg Tablet.) 324 mg PO DAILY [facility] Last Admin: 12/11/24 08:52 Dose: 324 mg Documented By: JAREN Fluticasone/Vilanterol (Fluticasone/Vilanterol 100/25 Blst.W.Dev) 1 puff INHALE DAILY [facility] Last Admin: 12/11/24 07:43 Dose: Not Given Documented By: NEREIDA Non-Admin Reason: pharmacy called for med Furosemide (Furosemide 20 Mg Tablet) 10 mg PO DAILY [facility]; Protocol Last Admin: 12/11/24 08:52 Dose: 10 mg Documented By: JAREN Gabapentin (Gabapentin 300 Mg Capsule) 300 mg PO BID [facility] Last Admin: 12/11/24 08:52 Dose: 300 mg Documented By: JAREN Guaifenesin/Dextromethorphan (Guaifenesin Dm 100/10/5 Ml 5 Ml Syrup) 10 ml PO Q4H PRN PRN Reason: Cough Piperacillin Sod/Tazobactam (Sod 3.375 gm/ Sodium Chloride) 50 mls @ 100 mls/hr IV Q6H [facility] Last Infusion: 12/11/24 11:24 Dose: Infused Documented By: SAROJ Magnesium Hydroxide (Milk Of Magnesia 30 Ml Oral.Susp) 30 ml PO DAILY PRN PRN Reason: Constipation Melatonin (Melatonin 3 Mg Tablet) 6 mg PO BEDTIME PRN PRN Reason: Insomnia Omeprazole (Omeprazole 20 Mg Capsule.) 20 mg PO DAILY@0630 [facility] Last Admin: 12/11/24 06:26 Dose: 20 mg Documented By: CODY Polyethylene Glycol (Polyethylene Glycol 3350 17 Gm Powd.Pack) 17 gm PO DAILY [facility] Last Admin: 12/11/24 08:53 Dose: Not Given Documented By: JAREN Non-Admin Reason: Patient Refused Ropinirole HCl (Ropinirole Hcl 2 Mg Tablet) 2 mg PO BID [facility] Last Admin: 12/11/24 09:35 Dose: 2 mg Documented By: SAROJ Sodium Chloride (0.9 % Sodium Chloride Flush 3 Ml Syringe) 3 ml IVFLUSH QSHIFT [facility] Last Admin: 12/11/24 07:23 Dose: 3 ml Documented By: JAREN Sodium Chloride (Sodium Chloride 0.65 % Nasal 44 Ml Sprbtl) 2 spray NOSTRIL-B BID [facility] Last Admin: 12/11/24 09:36 Dose: Not Given Documented By: SAROJ Non-Admin Reason: Med Not Available Tramadol HCl (Tramadol Hcl 50 Mg Tablet) 50 mg PO Q6H PRN PRN Reason: Pain, Moderate(Pain Scale 4-6) Last Admin: 12/11/24 08:52 Dose: 50 mg Documented By: JAREN Trazodone HCl (Trazodone Hcl 25 Mg Halftab) 25 mg PO BEDTIME [facility] Last Admin: 12/10/24 21:37 Dose: Not Given Documented By: CODY Non-Admin Reason: Physician Held Med Vitamin D (Cholecalciferol (Vitamin D3) 25 Mcg Tablet) 50 mcg PO DAILY [facility] Last Admin: 12/11/24 08:52 Dose: 50 mcg Documented By: JAREN Labs 12/11/24 06:28 12/11/24 06:28 Labs: Laboratory Results - last 24 hr 12/11/24 06:28 MCV 98.6 H MCH 33.2 H MCHC 33.7 RDW 14.1 Plt Count 142 L MPV 9.8 Absolute Nucleated RBC 0.000 Nucleated RBC % (auto) 0.0 Anion Gap 13 Estim Creat Clear Calc 56.3 Estimated GFR > 60 Random Glucose 99 Calcium 8.8 Microbiology Microbiology Results: Microbiology 12/10/24 07:55 Blood Culture - Preliminary Blood - Venous Gram negative ella 12/10/24 Unknown Urine Culture - Final Urine Catheterized - Straight Catheter 12/10/24 07:32 Blood Culture - Preliminary Blood - Venous No growth after 24 hours. Assessment and Plan (1) Non-ischemic myocardial injury (non-traumatic): Status: Acute (2) Sepsis: Status: Acute (3) Acute UTI: Status: Acute Plan This is an 89 year old female with history of diet-controlled diabetes, CAD s/p CABG, HLD, HTN, anxiety/depression, COPD, RLS, aflutter, combined diastolic and systolic CHF who was sent from [facility] due to fever and altered mental status found to have UTI severe sepsis due to UTI and GNR bacteremia hypotension requiring IVF and briefly requiring pressors in the ED. bp has been increasing Lactic acid normal initially treated with IV ceftriaxone, transitioned to zosyn overnight, will continue until final cultures are resulted follow urine culture 1/2 blood cultures growing GNR thrmbocytopenia likey due to sepsis plt stable elevated cardiac enzymes likely type 2 NM due to sepsis/hypotension no acute ischemic changes on EKG had episode of cp overnight overall trops flat seen by cardiology -rec to increase statin and add low dose aspirin echo pending Toxic metabolic encephalopathy Noted on arrival. Seems to have improved Likely due to fever, hypotension HTN bp very low on arrival, now trending up cardiology rec low dose norvasc if remains elevated will start Diet controlled DM DM diet atrial flutter continue amiodorone not on AC CAD/HLD continue statin Combined systolic and diastolic CHF echo pending home dose of lasix resumed RLS continue requip chronic pain continue ultram, gabapentin COPD no acute exacerbation MOLST form in chart DNR/DNI requires ongoing inpatient stay for management of uti/bacteremia requiring IV abx Quality Stroke Does the patient have a stroke diagnosis?: No VTE Prior VTE?: No VTE Risk Level:: Medical - moderate - high VTE Device Contraindication: N/A - Device Ordered VTE Drug Contraindication: N/A - Med Ordered
[2024-12-11] MEDS: amLODIPine Besylate 2.5 MG TABLET PO (15:06)
[2024-12-11] MEDS: Aspirin Enteric Coated 81 MG TABLET.DR PO (15:06)
[2024-12-11] MEDS: Enoxaparin Sodium 40 MG/0.4 ML SYRINGE SUBCUT (16:19)
[2024-12-11] MEDS: Atorvastatin Calcium 40 MG TABLET PO (21:02)
[2024-12-11] MEDS: traZODone HCL 25 MG HALFTAB PO (21:02)
[2024-12-11] MEDS: Bacitracin Oint 14 GM TUBE 1 APPL TOPICAL (21:11)
[2024-12-12 03:44] VITALS: BP 141/66; PULSE 56; RESP 16; TEMP 36.2; O2SAT 96
[2024-12-12] MEDS: Piperacillin Sodium/Tazobactam 3.375 GM in 0.9 % Sodium Chloride 50 ML IV ×4 (04:15→21:26)
[2024-12-12] MEDS: Omeprazole 20 MG CAPSULE.DR PO (06:21)
[2024-12-12 07:19] VITALS: BP 143/62; PULSE 64; RESP 16; TEMP 36.6; O2SAT 96
[2024-12-12 09:00] LABS: Anion Gap 12 (12-20); Blood Urea Nitrogen 14 mg/dL (9-16); Calcium 9.1 mg/dL (8.4-10.2); Carbon Dioxide 21 mmol/L (22-29); Chloride 108 mmol/L (96-108); Creatinine Clr Calc Pharmacy 58.2; Estimated Glomerular Filt Rate > 60; Glucose Random 126 mg/dL (60-115); Sodium 138 mmol/L (135-145)
[2024-12-12] MEDS: Cholecalciferol (Vitamin D3) 25 MCG TABLET 50 MCG PO (09:33)
[2024-12-12] MEDS: Gabapentin 300 MG CAPSULE PO ×2 (09:34→21:27)
[2024-12-12] MEDS: Furosemide 20 MG TABLET 10 MG PO (09:34)
[2024-12-12] MEDS: Amiodarone HCL 200 MG TABLET PO (09:35)
[2024-12-12] MEDS: Aspirin Enteric Coated 81 MG TABLET.DR PO (09:35)
[2024-12-12] MEDS: Ascorbic Acid 500 MG TABLET PO (09:36)
[2024-12-12] MEDS: Escitalopram Oxalate 10 MG TABLET 30 MG PO (09:36)
[2024-12-12] MEDS: amLODIPine Besylate 2.5 MG TABLET PO (09:37)
[2024-12-12] MEDS: Potassium Chloride Packet 20 MEQ PACKET 40 MEQ PO ×2 (09:38→21:27)
[2024-12-12] MEDS: Ferrous Sulfate 324 MG TABLET.DR PO (09:38)
[2024-12-12] MEDS: polyethylene glycoL 3350 17 GM POWD.PACK PO (09:38)
[2024-12-12] MEDS: rOPINIRole HCL 2 MG TABLET PO ×2 (09:38→21:27)
[2024-12-12] MEDS: 0.9 % Sodium Chloride Flush 3 ML SYRINGE IVFLUSH ×2 (09:39→17:21)
--- NOTE | 2024-12-12 09:51 | HO.PM.IMPN ---
Subjective Subjective Date of Service: 12/12/24 Interval History: Seen and examined this morning Follow-up for bacteremia, UTI awake, alert, but confused this morning Review of Systems Review of Systems: Yes all other systems are reviewed and are negative Constitutional Constitutional: Denies chills and Denies fever(s) Physical Exam Vital Signs: Vital Signs: Last Vital Signs Temp 97.8 F 12/12/24 07:19 Pulse 64 12/12/24 07:19 Resp 16 12/12/24 07:19 BP 143/62 H 12/12/24 07:19 Pulse Ox 96 12/12/24 07:19 O2 Del Method Room Air 12/12/24 07:19 BMI result Body Mass Index 30.0 Const: General: cooperative, comfortable, no acute distress, alert and awake Nutritional Appearance: average body habitus Orientation/consciousness: patient oriented x3 Resp: Effort & Inspection: normal respiratory effort, no respiratory distress and no use of accessory muscles Cardio: Rate: regular rate GI: Inspection: No distended Palpation (GI): Soft to palpation and nontender Neuro: General: patient oriented x3, moves all extremities and CN's II-XI intact bilaterally Extrem: General: Yes no pedal edema Objective Data Active Medications Acetaminophen (Acetaminophen 325 Mg Tablet) 650 mg PO Q6H PRN PRN Reason: Pain, Mild 1-3,fever,headache Amiodarone HCl (Amiodarone Hcl 200 Mg Tablet) 200 mg PO DAILY [facility] Last Admin: 12/11/24 08:52 Dose: 200 mg Documented By: JAREN Amlodipine Besylate (Amlodipine Besylate 2.5 Mg Tablet) 2.5 mg PO DAILY [facility]; Protocol Last Admin: 12/11/24 15:06 Dose: 2.5 mg Documented By: SAROJ Ascorbic Acid (Ascorbic Acid 500 Mg Tablet) 500 mg PO DAILY [facility] Last Admin: 12/11/24 08:52 Dose: 500 mg Documented By: JAREN Aspirin (Aspirin Enteric Coated 81 Mg Tablet.) 81 mg PO DAILY [facility] Last Admin: 12/11/24 15:06 Dose: 81 mg Documented By: SAROJ Atorvastatin Calcium (Atorvastatin Calcium 40 Mg Tablet) 40 mg PO BEDTIME [facility] Last Admin: 12/11/24 21:02 Dose: 40 mg Documented By: KEELEY Bacitracin (Bacitracin Oint 14 Gm Tube) 1 appl TOPICAL BID [facility]; Protocol Last Admin: 12/11/24 21:11 Dose: 1 appl Documented By: KEELEY Bisacodyl (Bisacodyl 10 Mg Supp.Rect) 10 mg AR DAILY PRN PRN Reason: Constipation Calcium Carbonate (Calcium Carbonate 750 Mg Tab.Chew) 750 mg PO Q4H PRN PRN Reason: Heartburn Enoxaparin Sodium (Enoxaparin Sodium 40 Mg/0.4 Ml Syringe) 40 mg SUBCUT Q24H [facility] Last Admin: 12/11/24 16:19 Dose: 40 mg Documented By: KEELEY Escitalopram Oxalate (Escitalopram Oxalate 10 Mg Tablet) 30 mg PO DAILY [facility] Last Admin: 12/11/24 08:51 Dose: 30 mg Documented By: JAREN Ferrous Sulfate (Ferrous Sulfate 324 Mg Tablet.) 324 mg PO DAILY [facility] Last Admin: 12/11/24 08:52 Dose: 324 mg Documented By: JAREN Fluticasone/Vilanterol (Fluticasone/Vilanterol 100/25 Blst.W.Dev) 1 puff INHALE DAILY [facility] Last Admin: 12/12/24 08:27 Dose: Not Given Documented By: LYLY Non-Admin Reason: Patient Refused Furosemide (Furosemide 20 Mg Tablet) 10 mg PO DAILY [facility]; Protocol Last Admin: 12/11/24 08:52 Dose: 10 mg Documented By: JAREN Gabapentin (Gabapentin 300 Mg Capsule) 300 mg PO BID [facility] Last Admin: 12/11/24 21:02 Dose: 300 mg Documented By: KEELEY Guaifenesin/Dextromethorphan (Guaifenesin Dm 100/10/5 Ml 5 Ml Syrup) 10 ml PO Q4H PRN PRN Reason: Cough Piperacillin Sod/Tazobactam (Sod 3.375 gm/ Sodium Chloride) 50 mls @ 100 mls/hr IV Q6H [facility] Last Infusion: 12/12/24 04:45 Dose: Infused Documented By: RAO Magnesium Hydroxide (Milk Of Magnesia 30 Ml Oral.Susp) 30 ml PO DAILY PRN PRN Reason: Constipation Melatonin (Melatonin 3 Mg Tablet) 6 mg PO BEDTIME PRN PRN Reason: Insomnia Omeprazole (Omeprazole 20 Mg Capsule.) 20 mg PO DAILY@0630 [facility] Last Admin: 12/12/24 06:21 Dose: 20 mg Documented By: RAO Polyethylene Glycol (Polyethylene Glycol 3350 17 Gm Powd.Pack) 17 gm PO DAILY [facility] Last Admin: 12/11/24 08:53 Dose: Not Given Documented By: JAREN Non-Admin Reason: Patient Refused Potassium Chloride (Potassium Chloride Packet 20 Meq Packet) 40 meq PO BID [facility] Stop: 12/12/24 21:01 Ropinirole HCl (Ropinirole Hcl 2 Mg Tablet) 2 mg PO BID [facility] Last Admin: 12/11/24 21:02 Dose: 2 mg Documented By: KEELEY Sodium Chloride (0.9 % Sodium Chloride Flush 3 Ml Syringe) 3 ml IVFLUSH QSHIFT [facility] Last Admin: 12/12/24 01:07 Dose: Not Given Documented By: RAO Non-Admin Reason: Patient Asleep Sodium Chloride (Sodium Chloride 0.65 % Nasal 44 Ml Sprbtl) 2 spray NOSTRIL-B BID [facility] Last Admin: 12/11/24 21:12 Dose: Not Given Documented By: KEELEY Non-Admin Reason: med not available, pharmacy notified Tramadol HCl (Tramadol Hcl 50 Mg Tablet) 50 mg PO Q6H PRN PRN Reason: Pain, Moderate(Pain Scale 4-6) Last Admin: 12/11/24 08:52 Dose: 50 mg Documented By: JAREN Trazodone HCl (Trazodone Hcl 25 Mg Halftab) 25 mg PO BEDTIME [facility] Last Admin: 12/11/24 21:02 Dose: 25 mg Documented By: KEELEY Vitamin D (Cholecalciferol (Vitamin D3) 25 Mcg Tablet) 50 mcg PO DAILY [facility] Last Admin: 12/11/24 08:52 Dose: 50 mcg Documented By: JAREN Labs 12/11/24 06:28 12/12/24 08:13 Labs: Laboratory Results - last 24 hr 12/12/24 08:13 Hold Purple Top SEE NOTE Anion Gap 12 Estim Creat Clear Calc 58.2 Estimated GFR > 60 Random Glucose 126 H Calcium 9.1 Microbiology Microbiology Results: Microbiology 12/10/24 07:32 Blood Culture - Preliminary Blood - Venous No growth after 48 hours. 12/10/24 07:55 Blood Culture - Preliminary Blood - Venous Gram negative ella 12/10/24 Unknown Urine Culture - Final Urine Catheterized - Straight Catheter Assessment and Plan (1) Sepsis: Status: Acute (2) Acute UTI: Status: Acute (3) Bacteremia: Status: Acute Plan This is an 89 year old female with history of diet-controlled diabetes, CAD s/p CABG, HLD, HTN, anxiety/depression, COPD, RLS, aflutter, combined diastolic and systolic CHF who was sent from [facility] due to fever and altered mental status found to have UTI severe sepsis due to UTI and GNR bacteremia hypotension requiring IVF and briefly requiring pressors in the ED. bp stable Lactic acid normal initially treated with IV ceftriaxone, transitioned to zosyn overnight, will continue until final cultures are resulted urine culture >100,000 mixed bacterial ken 1/2 blood cultures growing GNR -follow final cultures thrmbocytopenia likely due to sepsis plt stable elevated cardiac enzymes likely type 2 [place] due to sepsis/hypotension no acute ischemic changes on EKG overall trops flat seen by cardiology -rec to increase statin and add low dose aspirin echo with no wma Toxic metabolic encephalopathy pt more confused today likely due to acute infection and inpatient delirium hypokalemia replace and follow BMP HTN bp very low on arrival, now trending up cardiology rec low dose norvasc tolerating norvasc 2.5 mg Diet controlled DM DM diet check hba1c atrial flutter continue amiodorone not on AC CAD/HLD continue statin Combined systolic and diastolic CHF (per record from facility) echo from 12/11 showing grade III diastolic dysfunction, preserved EF, pulm HTN (Chronic per daughter) continue low dose lasix RLS continue requip chronic pain continue ultram, gabapentin COPD no acute exacerbation MOLST form in chart DNR/DNI requires ongoing inpatient stay for management of uti/bacteremia requiring IV abx Quality Stroke Does the patient have a stroke diagnosis?: No VTE Prior VTE?: No VTE Risk Level:: Medical - moderate - high VTE Device Contraindication: N/A - Device Ordered VTE Drug Contraindication: N/A - Med Ordered
[2024-12-12 10:14] LABS: Hematocrit 36.1 % (37.0-47.0); Hemoglobin 12.3 g/dl (12.0-16.0); Mean Corpuscular HGB Conc 34.1 g/dl (31.0-35.0); Mean Corpuscular Hemoglobin 32.6 pg (27.0-33.0); Mean Corpuscular Volume 95.8 fL (80.0-98.0); Mean Platelet Volume 10.3 fL (9.4-12.3); Platelet Count 171 X10*3/uL (160-400); Red Blood Count 3.77 X10*6/uL (4.20-5.50); Red Cell Distribution Width 13.8 % (11.0-16.0); White Blood Count 5.8 X10*3/uL (4.8-10.8)
[2024-12-12 10:33] LABS: Estimated Average Glucose 114 mg/dL; Hemoglobin A1C 123.9296 umol/L; Hemoglobin A1c % 5.6 % (<6.0); Total Hemoglobin (HGBA1C) 3259.4328 umol/L
[2024-12-12 11:32] VITALS: BP 160/69; PULSE 54; RESP 16; TEMP 37.1; O2SAT 97
[2024-12-12 15:48] VITALS: BP 149/68; PULSE 60; RESP 18; TEMP 36.6; O2SAT 97
[2024-12-12] MEDS: Enoxaparin Sodium 40 MG/0.4 ML SYRINGE SUBCUT (17:19)
[2024-12-12 19:37] VITALS: BP 131/66; PULSE 52; RESP 16; TEMP 36.8; O2SAT 97
[2024-12-12] MEDS: Atorvastatin Calcium 40 MG TABLET PO (21:27)
[2024-12-12] MEDS: traZODone HCL 25 MG HALFTAB PO (21:27)
[2024-12-13] VITALS: BP 165/75; PULSE 59; RESP 18; TEMP 36.3; O2SAT 97
[2024-12-13 04:00] VITALS: BP 149/74; PULSE 59; RESP 18; TEMP 36.9; O2SAT 96
[2024-12-13] MEDS: Omeprazole 20 MG CAPSULE.DR PO (05:30)
[2024-12-13] MEDS: Piperacillin Sodium/Tazobactam 3.375 GM in 0.9 % Sodium Chloride 50 ML IV ×2 (05:30→10:59)
[2024-12-13 07:38] LABS: Anion Gap 13 (12-20); Blood Urea Nitrogen 14 mg/dL (9-16); Carbon Dioxide 23 mmol/L (22-29); Chloride 109 mmol/L (96-108); Creatinine Clr Calc Pharmacy 59.1; Estimated Glomerular Filt Rate > 60; Glucose Random 102 mg/dL (60-115); Potassium 3.5 mmol/L (3.3-5.1); Sodium 141 mmol/L (135-145)
[2024-12-13 08:00] VITALS: BP 114/53; PULSE 55; RESP 16; TEMP 36.2; O2SAT 99
[2024-12-13] MEDS: Fluticasone/Vilanterol 100/25 BLST.W.DEV 1 PUFF INHALE (08:10)
[2024-12-13 08:13] VITALS: PULSE 87; RESP 18; O2SAT 94
[2024-12-13] MEDS: Gabapentin 300 MG CAPSULE PO (08:38)
[2024-12-13] MEDS: Cholecalciferol (Vitamin D3) 25 MCG TABLET 50 MCG PO (08:38)
[2024-12-13] MEDS: Ferrous Sulfate 324 MG TABLET.DR PO (08:38)
[2024-12-13] MEDS: Ascorbic Acid 500 MG TABLET PO (08:38)
[2024-12-13] MEDS: rOPINIRole HCL 2 MG TABLET PO (08:38)
[2024-12-13] MEDS: Amiodarone HCL 200 MG TABLET PO (08:38)
[2024-12-13] MEDS: Furosemide 20 MG TABLET 10 MG PO (08:39)
[2024-12-13] MEDS: Aspirin Enteric Coated 81 MG TABLET.DR PO (08:40)
[2024-12-13] MEDS: 0.9 % Sodium Chloride Flush 3 ML SYRINGE IVFLUSH (08:40)
[2024-12-13] MEDS: amLODIPine Besylate 2.5 MG TABLET PO (08:42)
[2024-12-13] MEDS: Escitalopram Oxalate 10 MG TABLET 30 MG PO (08:54)
--- NOTE | 2024-12-13 10:03 | P.DS_ITS ---
DS: Providers Provider Date of Service: 12/13/24 Date of admission: 12/10/24 14:52 Date of discharge: 12/13/24 Primary care physician: Rex Bass MD Consults: 12/11/24 07:23 Consult to Cardiology Routine Consulting Provider: [facility] [place] Reason for consultation: chest pain, h/o CAD, elevated trop Has provider been notified: Yes 12/12/24 09:22 Consult to Bulb Tester Routine Comment: pt/family request visit Attending physician on discharge: Brooklynn Choi Discharging clinician: Carmina Land DS: Diagnosis Discharge Diagnosis (1) Sepsis: Status: Acute (2) Acute UTI: Status: Acute (3) Bacteremia: Status: Acute DS: Summary Hospital Course Hospital Course: From H&P on the day of admission This is an 89-year-old female who was sent in from [facility] due to altered mental status and fever. On arrival patient was noted to have temperature of a 103.3 degrees. Upon further workup her urinalysis was consistent with urinary tract infection. Around 08 21 her blood pressure began to decrease substantially and dropped as low as the 70s. She received IV fluid and was then started on Levophed drip. As her blood pressure improved she became more responsive and is currently awake and alert and able to provide a history. She was evaluated by the ICU attending but her blood pressure began to improve, she was weaned off of Levophed drip and since that time her blood pressure has remained above 100 systolic. It was deemed that she did not need ICU level of care. She denies any abdominal pain, nausea, vomiting, urinary symptoms. She was treated with IV ceftriaxone and will be admitted to the hospital for further management. Hospital course by problem: severe sepsis due to UTI and e.coli bacteremia patient became hypotensive in the ED requiring IVF and briefly requiring pressors. She was able to be weaned off of pressors in the emergency department and her blood pressure has remained stable since. Lactic acid was normal. She was treated with IV antibiotics, urine culture >100,000 mixed bacterial ken. 1/2 blood cultures spear-sensitive E coli. Her leukocytosis resolved and she has remained afebrile for 48 hours. She will be discharged home to complete 14 day course of oral antibiotics. She had thrombocytopenia most likely due to sepsis which has resolved. elevated cardiac enzymes High sensitivity peaked at 153.1, likely type 2 [place] due to sepsis/hypotension. no acute ischemic changes on EKG. echo with chronic changes, no wall motion abnormality. seen by cardiology who recommended to increase statin and add low dose aspirin. Toxic metabolic encephalopathy likely due to acute infection and inpatient delirium in the setting of underlying cognitive impairment (per daughter reports) hypokalemia resolved with replacement HTN. bp very low on arrival, trended up and actually became hypertensive. Per Cardiology recommendation she was started on low-dose Norvasc, 2.5 mg. Blood pressure has improved with a few high readings intermittently. Can consider further titration outpatient as necessary Time Attestation Discharge Coordination Time (in mins): 36 Quality: Safe Use of Opioids Does Pt have an Active Cancer Diagnosis on the Problem List?: No Quality: Stroke Does the patient have a stroke diagnosis?: No Physical Exam Vital Signs: Vital Signs: Last Vital Signs Temp 97.2 F 12/13/24 08:00 Pulse 87 12/13/24 08:13 Resp 18 12/13/24 08:13 BP 114/53 L 12/13/24 08:00 Pulse Ox 99 12/13/24 08:00 O2 Del Method Room Air 12/13/24 08:00 BMI result Body Mass Index 30.0 Const: General: comfortable, no acute distress, alert and awake Nutritional Appearance: overweight Orientation/consciousness: oriented to person and oriented to place Resp: Effort & Inspection: normal respiratory effort, able to speak in complete sentences, no respiratory distress and no use of accessory muscles Cardio: Rate: regular rate GI: Inspection: No distended Palpation (GI): Soft to palpation Neuro: General: oriented to person, oriented to place and CN's II-XI intact bilaterally DS: Data Data Completed and Pending Completed studies during hospitalization [Text1]: Procedures Insertion of Infusion Device into Superior Vena Cava, Percutaneous Approach (04/05/24) Ultrasonography of Superior Vena Cava, Guidance (04/05/24) Labs on day of discharge: Laboratory Results - last 24 hr 12/12/24 12/13/24 08:13 06:06 WBC 5.8 RBC 3.77 L Hgb 12.3 Hct 36.1 L MCV 95.8 MCH 32.6 MCHC 34.1 RDW 13.8 Plt Count 171 MPV 10.3 Absolute Nucleated RBC 0.000 Nucleated RBC % (auto) 0.0 Hold Purple Top SEE NOTE Sodium 141 Potassium 3.5 Chloride 109 H Carbon Dioxide 23 Anion Gap 13 BUN 14 Creatinine 0.67 Estim Creat Clear Calc 59.1 Estimated GFR > 60 Random Glucose 102 Estimat Average Glucose 114 Hemoglobin A1c % 5.6 Calcium 9.0 Preliminary micro results at discharge 12/10/24 07:32 Blood Culture - Preliminary Blood - Venous No growth after 48 hours. Discharge Plan Discharge Anticipated Discharge Date/Time: 12/13/24 11:33 Patient Disposition: er [facility] Discharge Diagnosis: severe sepsis due to e.coli bacteremia/UTI Referrals: Rex Bass MD [Primary Care Provider] - 1 Week Discharge Medications: New amlodipine 2.5 mg Tablet 2.5 mg PO DAILY 90 Days Qty: 90 0RF Protocol: Hold for SBP< HOLD for SBP < : 90 aspirin 81 mg Tablet,Delayed Release (Dr/Ec) 81 mg PO DAILY Qty: 90 0RF cefuroxime axetil 500 mg tablet 500 mg PO Q12H 11 Days Qty: 22 0RF atorvastatin 40 mg Tablet 40 mg PO BEDTIME Qty: 90 0RF Continued bacitracin 500 unit/gram Ointment 1 appl TOPICAL DAILY PRN (Reason: soilage cleanse) Rx Instructions: apply to left 2nd toe prn for soilage cleanse with NSS. Dry with gauze. Place ointment to wound bed. Cover with DCD. bacitracin 500 unit/gram Ointment 1 appl TOPICAL BID Rx Instructions: apply to left 2nf toe everyday and evening shift for wound care cleanse with NSS. Dry with gauze. Place ointment to wound bed. Cover with DCD. furosemide 20 mg Tablet 20 mg PO DAILY PRN (Reason: Weight Gain) fluticasone furoate-vilanterol [Breo Ellipta] 100-25 mcg/dose Blister With Device 1 inh INHALATION DAILY acetaminophen [Tylenol] 325 mg Tablet 650 mg PO Q6H PRN (Reason: Fever Or Pain) Rx Instructions: NTE 3 G / 24 HRS amiodarone 200 mg tablet 200 mg PO DAILY atorvastatin 20 mg tablet 20 mg PO BEDTIME ascorbic acid (vitamin C) [Vitamin C] 250 mg Tablet 500 mg PO DAILY cholecalciferol (vitamin D3) [Vitamin D3] 25 mcg (1,000 unit) Tablet 50 mcg PO DAILY diclofenac sodium 1 % gel 4 g topical Q6H PRN (Reason: neck pain) diclofenac sodium 1 % gel 4 g topical DAILY trazodone 50 mg tablet 25 mg PO BEDTIME polyethylene glycol 3350 [Miralax] 17 gram Powder In Packet 17 g PO DAILY sennosides-docusate sodium [Senna with Docusate Sodium] 8.6-50 mg Tablet 1 tab-cap PO BID PRN (Reason: Constipation) loperamide 2 mg Tablet 2 mg PO Q2H PRN (Reason: Diarrhea) Rx Instructions: administer after each loose stool until symptoms controlled; do not exceed 16 mg per 24 hrs dextromethorphan-guaifenesin 10-100 mg/5 mL Syrup 10 ml PO Q4H PRN (Reason: Cough) tramadol 50 mg tablet 50 mg PO Q6H magnesium hydroxide [Milk of Magnesia] 400 mg/5 mL Suspension 30 ml PO DAILY PRN (Reason: Constipation) bisacodyl [Dulcolax (bisacodyl)] 10 mg Suppository 10 mg CA DAILY PRN (Reason: Constipation) ropinirole 2 mg tablet 2 mg PO BID pantoprazole 40 mg tablet,delayed release (DR/EC) 40 mg PO DAILY@0630 Fleet Enema 19-7 gram/118 mL Enema 118 ml CA DAILY PRN (Reason: Constipation) gabapentin 300 mg Capsule 300 mg PO BID furosemide 20 mg Tablet 10 mg PO DAILY ferrous sulfate 325 mg (65 mg iron) Tablet,Delayed Release (Dr/Ec) 325 mg PO DAILY escitalopram oxalate 10 mg tablet 30 mg PO DAILY Saline Nasal 0.65 % Aerosol,Cotopaxi 2 spray INTRANASAL BID Discharge Orders: Discharge Order (Routine); Ordered 12/13/24 Ordered By: Carmina Land Activity on Discharge: As tolerated Stand Alone Forms: Patient Portal Discharge page Print Language: Urdu Care Plan Goals: see below Health Concerns: sepsis due to UTI/bacteremia type 2 NH due to hypotension/acute infection Plan of Treatment: complete course of antibiotics as prescribed dose of statin has been increased you have been started on a baby aspirin Assessment: see discharge summary
--- NOTE | 2024-12-13 11:36 | MHC.CM.PN ---
Pt. has been medically cleared, she will returnt to [facility] today via BLS.
[2024-12-13 11:45] VITALS: BP 131/64; PULSE 54; RESP 16; TEMP 36.3; O2SAT 99
== END 2024-12-13 14:00 | disposition skilled nursing facility (03) | DRG 871 ==
LOC: HO.ED 13:24 → HO.EDOVER 15:25 → HO.IMC 12-11 08:08
PROVIDERS: Student in an Organized Health Care Education/Training Program; Admitting Provider Physician Assistant Medical; Emergency Provider Emergency Medicine; PCP Family Medicine; Visit Provider Physician Assistant Medical
DX: A41.9 Sepsis, unspecified organism (principal); G92.8 Other toxic encephalopathy; I21.A1 Myocardial infarction type 2; I50.42 Chronic combined systolic (congestive) and diastolic (congestive) heart failure; I48.92 Unspecified atrial flutter; E78.5 Hyperlipidemia, unspecified; I11.0 Hypertensive heart disease with heart failure; E11.9 Type 2 diabetes mellitus without complications; J44.9 Chronic obstructive pulmonary disease, unspecified; I95.9 Hypotension, unspecified; G25.81 Restless legs syndrome; D69.59 Other secondary thrombocytopenia; G89.29 Other chronic pain; E87.6 Hypokalemia; R65.20 Severe sepsis without septic shock; Z66 Do not resuscitate; I25.10 Atherosclerotic heart disease of native coronary artery without angina pectoris; B96.20 Unspecified Escherichia coli [E. coli] as the cause of diseases classified elsewhere; Z20.822 Contact with and (suspected) exposure to COVID-19; Z95.1 Presence of aortocoronary bypass graft; Z79.51 Long term (current) use of inhaled steroids; Z79.899 Other long term (current) drug therapy
CPT/HCPCS: 0241U; 36415; 70450; 71045; 80048; 80076; 81001; 82947; 83036; 83605; 83690; 83880; 84484; 85007; 85025; 85027; 85610; 87040; 87077; 87086; 87186; 87205; 93005; 93306; 99285; J0696; J1200; J1650; J2543; P9047; Q9957

== ENCOUNTER → 2024-12-10 07:17 | Outpatient (BNV) | payer MEDICARE, MEDICAID, SELFPAY | PROVIDERS: Emergency Provider Emergency Medicine; PCP Family Medicine; Visit Provider Internal Medicine Cardiovascular Disease | DX: R07.9 Chest pain, unspecified (principal) | CPT/HCPCS: 93010 ==

== ENCOUNTER → 2024-12-10 07:17 | Outpatient (BNV) | payer MEDICARE, MEDICAID, SELFPAY | PROVIDERS: Emergency Provider Emergency Medicine; Visit Provider Radiology Diagnostic Radiology | DX: R41.82 Altered mental status, unspecified (principal) | CPT/HCPCS: 70450; 71045 ==

== ENCOUNTER 2024-12-10 14:52 | Outpatient (BNV) | payer MEDICARE, MEDICAID, SELFPAY | END 2024-12-11 07:00 | PROVIDERS: Admitting Provider Physician Assistant Medical; Emergency Provider Emergency Medicine; PCP Family Medicine; Visit Provider Internal Medicine Cardiovascular Disease | DX: I50.30 Unspecified diastolic (congestive) heart failure (principal); I51.7 Cardiomegaly; I36.1 Nonrheumatic tricuspid (valve) insufficiency; I35.8 Other nonrheumatic aortic valve disorders | CPT/HCPCS: 93306 ==

== ENCOUNTER → 2024-12-10 14:52 | Outpatient (BNV) | payer MEDICARE, MEDICAID, SELFPAY | PROVIDERS: Admitting Provider Physician Assistant Medical; Emergency Provider Emergency Medicine; PCP Family Medicine; Visit Provider Internal Medicine Cardiovascular Disease | DX: I5A Non-ischemic myocardial injury (non-traumatic) (principal) | CPT/HCPCS: 99222 ==

== ENCOUNTER → 2024-12-10 14:52 | Outpatient (BNV) | payer MEDICARE, MEDICAID, SELFPAY | PROVIDERS: Admitting Provider Physician Assistant Medical; Emergency Provider Emergency Medicine; PCP Family Medicine; Visit Provider Student in an Organized Health Care Education/Training Program | DX: N39.0 Urinary tract infection, site not specified (principal); A41.9 Sepsis, unspecified organism; I5A Non-ischemic myocardial injury (non-traumatic); D69.6 Thrombocytopenia, unspecified | CPT/HCPCS: 99223; 99232; 99233; 99239; 99499 ==

== ENCOUNTER 2025-01-11 05:49 | Outpatient (REF) | payer MEDICARE, MEDICAID, SELFPAY ==
[2025-01-11 05:41] LABS: MANUAL DIFF FLAG NO
--- OUTSIDE RECORDS SUMMARY | 2025-01-11 06:02 | XMS_ITS | Clinical Summary ---
Author Organization [facility] Address [address] [place] [address] Phone Care Team Providers Care Journeyman Glazier Name Role Phone Rex Bass MD Primary Care Provider [phone] Allergies Active Allergy Reactions Criticality Noted Date Comments Lisinopril 05/07/2022 Medications amiodarone (PACERONE) 200 mg tablet Take 1 Tablet by mouth daily. 05/11/2022 Active losartan (COZAAR) 25 mg tablet Take 0.5 Tablets by mouth daily. 05/11/2022 Active apixaban (ELIQUIS) 5 mg tablet Take by mouth 2 times daily. Active escitalopram (LEXAPRO) 20 mg tablet Take 1.5 Tablets by mouth daily. Active loperamide (IMODIUM) 2 mg capsule Take 2 Capsules by mouth as needed. Active nitroglycerin (NITROSTAT) 0.[address] 1 Tablet under the tongue every 5 minutes as needed. Active pantoprazole (PROTONIX) 40 mg EC tablet Take 1 Tablet by mouth daily as needed. Active rOPINIRole (REQUIP) 2 mg tablet Take 2 mg by mouth 2 times daily. Active torsemide (DEMADEX) 20 mg tablet Take 1 Tablet by mouth daily. Active cilostazoL (PLETAL) 50 mg tablet Take 50 mg by mouth daily. Active gabapentin (NEURONTIN) 100 mg capsule Take 100 mg by mouth daily. Active LORazepam (ATIVAN) 0.5 mg tablet Take 0.5 mg by mouth every 6 hours as needed. Active vit C/E/Zn/coppr/dayna tein/zeaxan (PRESERVISION AREDS-2 ORAL) Take by mouth. Active cholecalciferol (Dialyvite Vitamin D3 Max) 1,250 mcg (50,000 unit) tablet Take by mouth. Active aclidinium (TUDORZA) 400 mcg/actuation inhaler Inhale 1 Puff into the lungs 2 times daily. 05/27/2018 Active aspirin 81 mg EC tablet Take 81 mg by mouth daily. Active atorvastatin (LIPITOR) 40 mg tablet Take 40 mg by mouth daily. Active potassium chloride (KLOR-CON) 20 mEq packet Take 20 mEq by mouth 2 times daily. Active metoprolol tartrate (LOPRESSOR) 25 mg tablet Take 0.5 Tablets by mouth 2 times daily. Active omeprazole (PriLOSEC) [address] capsule Take 20 mg by mouth daily. Active albuterol HFA (PROAIR HFA ; PROVENTIL HFA ; VENTOLIN HFA) 90 mcg/actuation inhaler Inhale 2 Puffs into the lungs every 4 hours as needed. Active sertraline (ZOLOFT) 50 mg tablet Take 50 mg by mouth daily. Active traMADoL (ULTRAM) 50 mg tablet Take 50 mg by mouth every 6 hours as needed. Active Active Problems Problem Noted Date Diagnosed Date Atrial flutter 05/07/2022 Overview (08/28/2024): Last Assessment & Plan: In sinus rhythm, rhythm is controlled on amiodarone, heart rate is controlled on metoprolol. She is anticoagulated on Eliquis. She understands risk and benefits of anticoagulation and wished to continue. We are updating her labs and PFTs. Pure hypercholesterolemia 05/07/2022 Coronary artery disease 01/01/2022 Overview (08/28/2024): Last Assessment & Plan: Recent admission for chest discomfort, ACS ruled out. She is no longer experiencing any discomfort. Continue current regimen Hypertension 01/01/2022 Overview (08/28/2024): Last Assessment & Plan: Still running on the low side, states she is feeling an increase in generalized weakness and fatigue. This may be related to her blood pressure. We will decrease her losartan. Hyperlipidemia LDL goal <70 01/01/2022 Overview (08/28/2024): Last Assessment & Plan: Last lipid panel 10/28 total cholesterol 165, HDL 59, LDL 74. Goal LDL is less than 70. Diastolic dysfunction 01/01/2022 Overview (08/28/2024): Last Assessment & Plan: Left lower extremity swelling at baseline however this appears more than her normal due to her left lower extremity wound, follows with the wound clinic 2 times per week and has a dressing there. No signs of infection visualized. No edema to her right foot. Reviewed signs and symptoms of heart failure and educated regarding monitoring weight, diet, and fluid intake. If there is a weight gain of 3 pounds in one day or 5 pounds in a week please call our office or seek medical attention if necessary. Encounters Date Type Department Care Team Description 11/03/2024 Telephone Orthopedic Surgery [facility] [address] [phone] Aaron Green DPM Order Revision (Vascular Order) 10/19/2024 1:45 PM EST Office Visit Orthopedic [facility] [address] [phone] Aaron Green DPM Acquired hallux valgus of left foot (Primary Dx); Type II diabetes mellitus with peripheral circulatory disorder (CMS/HCC); Type 2 diabetes mellitus with other circulatory complications (CMS/HCC); Dermatophytosis of nail; Pain in toe of right foot; Pain in toe of left foot; Corns and callosities; Metatarsalgia of both feet; Hammer toe of left foot from Last 3 Months Surgical History Surgery Date Site/Laterality Comments HYSTERECTOMY PROCEDURE: HISTORICAL HYSTERECTOMY APPENDECTOMY PROCEDURE: HISTORICAL APPENDECTOMY CHOLECYSTECTOMY 02/09/2016 PROCEDURE: HISTORICAL CHOLECYSTECTOMY OTHER SURGICAL HISTORY 12/14/2013 PROCEDURE: NE EGD PARTIAL/COMPL ESOPHAGOGASTRIC FUNDOPLASTY COLONOSCOPY 02/09/2016 PROCEDURE: HISTORICAL COLONOSCOPY OTHER SURGICAL HISTORY 05/14/2013 PROCEDURE: NE ECHO TRANSTHORAC R-T 2D W/WO M-MODE REC COMP OTHER SURGICAL HISTORY 03/13/2013 PROCEDURE: NE CABG W/ARTERIAL GRAFT THREE ARTERIAL GRAFTS OTHER SURGICAL HISTORY 12/06/2008 PROCEDURE: NE EGD PARTIAL/COMPL ESOPHAGOGASTRIC FUNDOPLASTY CARPAL TUNNEL RELEASE PROCEDURE: NE NEUROPLASTY &/TRANSPOS MEDIAN NRV CARPAL TUNNE; COMMENT: X 2 CATARACT EXTRACTION PROCEDURE: HISTORICAL CATARACT REMOVAL ROTATOR CUFF REPAIR PROCEDURE: HISTORICAL ROTATOR CUFF REPAIR Medical History Medical History Date Comments Anxiety DX:Anxiety Bilateral leg edema DX:Bilateral leg edema Bilateral lower extremity pain D X:Bilateral lower extremity pain Bilateral renal cysts DX:Bilater al renal cysts Carpal tunnel syndrome, bilateral DX:Carpal tunnel syndrome, bilateral Cataract DX:Cataract Chronic chest pain DX:Chronic ch est pain Chronic diarrhea DX:Chronic diar halley; COMMENT: 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 Chronic GERD DX:Chronic GERD Chronic kidney disease (CKD) , stage II (mild) DX:Chronic kidney disease (C KD), stage II (mild) Chronic low back pain DX:Chronic low back pain Chronic obstructive pulmonar y disease (CMS/HCC) DX:Chronic obstructive pulmo nary disease (HCC) Chronic pain DX:Chronic pain Compression fracture of L1 l umbar vertebra (CMS/HCC) DX:Compression fracture of L 1 lumbar vertebra (HCC); COMMENT: and t12 vertebra Degeneration macular DX:Degenera tion macular Depression DX:Depression Diabetes type 2, controlled (CMS/HCC) DX:Diabetes type 2, controlled (HCC) Diverticulitis DX:Diverticuliti s Elevated LFTs DX:Elevated LFTs Ganglion cyst of finger of left hand DX:Ganglion cyst of finger of left hand EKTA (iron deficiency anemia) DX: EKTA (iron deficiency anemia) Insomnia DX:Insomnia Oral lichenoid mucositis DX:Oral lichenoid mucositis Lower extremity edema DX:Lower e xtremity edema Migraine DX:Migraine Nausea & vomiting DX:Nausea & vo miting Osteoarthritis DX:Osteoarthriti s Class 2 obesity DX:Class 2 obesi ty Osteoporosis DX:Osteoporosis Primary hyperparathyroidism (CMS/HCC) DX:Primary hyperparathyroidism (HCC) Recurrent falls DX:Recurrent fal ls Restless legs syndrome DX:Restle ss legs syndrome Vitamin D deficiency DX:Vitamin D deficiency Cellulitis of left anterior lower leg DX:Cellulitis of left anterior lower leg Trigger finger DX:Trigger finge r Atypical chest pain DX:Atypical chest pain; COMMENT: likely musculoskeletal pain Degenerative disc disease, lumbar DX:Degenerative disc disease, lumbar Family History Medical History Relation Name Comments Diabetes Brother mellitus, type 2 Other: Brain Tumor Daughter Other: [place] Endometrial Daughter Colon cancer Father Coronary artery disease Father Colon cancer Mother Relation Name Status Comments Brother Daughter Father Mother Social History Tobacco Use Types Packs/Day Years Used Date Smoking Tobacco: Former Cigarettes Q uit: 10/07/1997 Smokeless Tobacco: Never Alcohol Use Standard Drinks/Week Comments Yes 0 (1 standard drink = 0.6 oz pur e alcohol) Comments Unknown Sex and Gender Information Value Date Recorded Sex Assigned at Not on file Legal Sex Female 6:31 PM EST Gender Identity Not on file Sexual Orientation Not on file Obstetrics History Last Filed Vital Signs Vital Sign Reading Time Taken Comments Blood Pressure 96/60 05/10/2022 12:38 PM EDT Si tting L Arm Pulse 59 05/10/2022 12:38 PM EDT Temperature - - Respiratory Rate - - Oxygen Saturation - - Inhaled Oxygen Concentration - - Weight 86.6 kg (191 lb) 05/10/2022 12:38 PM EDT Height 157.5 cm (5' 2 ) 05/10/2022 12:38 PM EDT Body Mass Index 34.93 05/10/2022 12:38 PM EDT Plan of Treatment Upcoming Encounters Date Type Department Care Team (Late st Contact Info) Description 02/18/2025 1:30 PM EDT Consult Vascular Surgery - [place] [address] [place] [phone] Yarelis Velasquez PA [address] [place] [address] Health Maintenance Due Date Last Done Comments Diabetes: Annual Foot Exam 1945 Diabetes: Annual Retina Eye Exam 1945 RSV Immunization Adult Patients (1 - 1-dose 75+ series) 2011 Zoster Vaccines (2 of 3) 12/18/2012 10/23/2012 Cholesterol Screening (Lipid Panel) 09/15/2022 Depression Screening 09/15/2022 Falls Risk Assessment 09/15/2022 Medicare Annual Wellness Visit 09/15/2022 Osteoporosis Screening (Bone Density Screening) 09/15/2022 Social Influencers of Health Screening 09/15/2022 Hypertension/CHF/CAD Annual BMP Blood Test 09/16/2022 COVID-19 Vaccine ( season) 2024 02/28/2022, 08/23/2021, 12/03/2020, Additional history exists Influenza Vaccine (#1) 2024 3, 07/31/2022, 10/19/2021, Additional history exists Diabetes: Blood Sugar Control Test (HGBA1C) 10/19/2024 DTaP,Tdap,and Td Vaccines (3 - Td or Tdap) 02/10/2032 02/09/2022, 02/17/2014 Pneumococcal Vaccine: 50+ Years Completed 07/16/2017, 06/27/2015, 07/09/2009 HIB Vaccines Aged Out No longer eligi ble based on patient's age to complete this topic HPV Vaccines Aged Out No longer eligi ble based on patient's age to complete this topic Hepatitis A Vaccines Aged Out No long er eligible based on patient's age to complete this topic Hepatitis B Vaccines Aged Out No long er eligible based on patient's age to complete this topic IPV Vaccines Aged Out No longer eligi ble based on patient's age to complete this topic MMR Vaccines Aged Out No longer eligi ble based on patient's age to complete this topic Meningococcal ACWY Vaccine Aged Out N o longer eligible based on patient's age to complete this topic Meningococcal B Vacine Aged Out No lo nger eligible based on patient's age to complete this topic RSV Immunization Patients Under 20 months Aged Out No longer eligible based on patient's age to complete this topic Varicella Vaccines Aged Out No longer eligible based on patient's age to complete this topic Insurance [facility] MEDICAID - [place] MEDICARE Advance Directives Documents on File Type Date Recorded Patient Application Integration Specialist Expl anation Health Care Decision (hx) 09/26/2023 AD FARNSWORTH DIRECTIVE Health Care Decision (hx) 05/09/2021 AD FARNSWORTH DIRECTIVE Health Care Decision (hx) 05/09/2021 AD FARNSWORTH DIRECTIVE Care Teams Journeyman Glazier Relationship Specialty Start Date End Date Rex Bass MD [address] [place] [phone] PCP - General 04/23/24
--- OUTSIDE RECORDS SUMMARY | 2025-01-11 06:02 | XMS_ITS | Data Portability ---
Author Organization [facility], PAIN OFFICE Address [address] [place] [address] Care Team Providers Care Cab Worker Name Role Phone ABAD GONSALES Primary Care [...] appointment has been booked. She needs a hydraulic lift driver on the day of the procedure. [...] By Organization Details Last Modified Time 06/26/2021 [id number] She was advised against bed rest lasting longer than four days and to continue activities as tolerated. [email or web address] Not available 06/30/2021 10:01:24 07/11/2021 [id number] She was advised to continue with activities as tolerated [email or web address] Not available 07/11/2021 13:35:39 10/04/2021 [id number] She was advised to continue with activities as tolerated [email or web address] Not available 10/04/2021 11:55:19 12/12/2021 [id number] She was advised to continue with activities as tolerated [email or web address] Not available 12/12/2021 12:09:37 08/21/2022 [id number] She was advised to continue with activities as tolerated [email or web address] Not available 08/21/2022 10:34:48 Reason for Referral None Reported. Problems Name Problem SNOMED Code Status Onset Date Resolution Date Notes Provider Name and Address Organization Details Recorded Time Spinal stenosis of lumbar region 30742857 Active 2016 Alf adams MD [address] [place] [address] , [address], [facility] [place], [address] [facility] [place] [facility] 7 10:55:25 Lumbosacral spondylosis without myelopathy 47031856 Active 2016 Alf adams MD [address] , [address], [place], [address], [place] [facility] 7 10:55:26 Lumbosacral radiculitis 82529596 Active 2016 Alf adams MD [address] , [address], [place], [address], [place] [facility] 7 10:55:27 Displacement of lumbar intervertebral disc without myelopathy 20986909 Active 2016 Alf adams MD [address] , [address], [place], [address], [place] [facility] 7 10:55:30 Post-herpetic neuritis 547615121 Active Alf adams MD [address] , [address], [place], [address], [place] [facility] 9 14:56:27 Inflammation of joint of shoulder region 310002972 Active Alf adams MD [address] , [address], [place], [address], [place] [facility] 9 09:39:04 Problem Notes None recorded. Procedures Surgical History Date Name Laterality Status Provider Name and Address Organization Details Recorded Time 08/21/20 22 Lumbar Epidural steroid injection under fluoroscopic guidance completed Alf Posada MD [address] , [address], [place], [address], [place] [facility] 08/21/2022 10:36:53 12/13/19 22 Lumbar Epidural steroid injection under fluoroscopic guidance completed Alf Posada MD [address] , [address], [place], [address], [place] [facility] 12/12/2021 12:09:46 10/04/20 21 Lumbar Epidural steroid injection under fluoroscopic guidance completed Alf Posada MD [address] , [address], [place], [address], [place] [facility] 10/04/2021 11:55:59 07/11/20 21 Lumbar Epidural steroid injection under fluoroscopic guidance completed Alf Posada MD [address] , [address], [place], [address], [place] [facility] 07/11/2021 13:35:45 04/11/20 21 Lumbar Epidural steroid injection under fluoroscopic guidance completed Alf Posada MD [address] , [address], [place], [address], [place] [facility] 04/11/2021 13:56:00 01/11/20 21 Lumbar Epidural steroid injection under fluoroscopic guidance completed Alf Posada MD [address] , [address], [place], [address], [place] [facility] 01/12/2021 09:57:53 09/06/20 20 Lumbar Epidural steroid injection under fluoroscopic guidance completed Alf Posada MD [address] , [address], [place], [address], [place] [facility] 09/08/2020 14:56:36 06/15/20 20 Lumbar Epidural steroid injection under fluoroscopic guidance completed Alf Posada MD [address] , [address], [place], [address], [place] [facility] 06/15/2020 14:00:13 05/23/20 20 Intra-articular shoulder steroid injection under ultrasound guidance completed Alf Posada MD [address] , [address], [place], [address], [place] [facility] 05/23/2020 15:11:49 05/11/20 19 Intra-articular shoulder steroid injection under ultrasound guidance completed Alf Posada MD [address] , [address], [place], [address], [place] [facility] 05/11/2019 09:43:25 03/31/20 19 Lumbar Epidural steroid injection under fluoroscopic guidance completed Alf Posada MD [address] , [address], [place], [address], [place] [facility] 03/31/2019 18:50:07 01/08/20 19 Fluoroscopic Guided Lumbar Facet Steroid Injections of levels completed Alf Posada MD [address] , [address], [place], [address], [place] [facility] 01/08/2019 15:03:53 09/17/20 17 Fluoroscopic Guided Lumbar Facet Steroid Injections of levels completed Alf Posada MD [address] , [address], [place], [address], [place] [facility] 09/17/2017 10:08:58 08/07/20 17 Fluoroscopic Guided Lumbar Facet Steroid Injections of levels completed Alf Posada MD [address] , [address], [place], [address], [place] [facility] 08/07/2017 10:36:11 05/08/20 17 Lumbar Epidural steroid injection under fluoroscopic guidance completed Alf Posada MD [address] , [address], [place], [address], [place] [facility] 05/08/2017 10:54:37 Joint Replacement completed Fayechris Sotoer [place] - [facility] 03/14/2017 14:36:04 Cholecystectomy completed Faye Varghese [place] - [facility] 03/14/2017 14:36:22 Back Surgery completed Alf Posada MD [address] , [address], [place], [address], [place] [facility] 04/02/2017 [...] completed Not Available Not Available Not Available [employer] Ultra Test strips TESTS DAILY FOR DM, [...] Not Available No t Available Fluzone High-Dose 8371-2641 (PF) 180 mcg/0.5 mL intramuscul ar syringe TO BE ADMINISTE RED BY PHARMACIS T FOR IMMUNIZAT ION 08/07 completed Not Available Not Available Not Available Fluzone High-Dose [id number] (PF) 180 mcg/0.5 mL intramuscul ar syringe [...] saturation in Arterial blood by Pulse oximetry Pain severity - 0-10 verbal numeric rating [Score] - Reported Systolic blood pressure Diastolic blood pressure Provider Name and Address Organization Details Last Updated DateTime 1 160.02 cm 34.7 kg/m2 93495.1 g 58 /min 98 % 98 % 6 144 mm[Hg] 56 mm[Hg] Alf adams MD [address] [facility] , [address], [facility] [place], [address], [place] [facility] 1 [...] saturation in Arterial blood by Pulse oximetry Pain severity - 0-10 verbal numeric rating [Score] - Reported Systolic blood pressure Diastolic blood pressure Provider Name and Address Organization Details Last Updated DateTime 1 160.02 cm 66 /min 97 % 97 % 10 126 mm[Hg] 53 mm[Hg] Ebony adams [place] [...] Is Your Level Of Alcohol Consumption? Moderate [id number] Information not available 07/22/2020 Are You Currently Employed? No [id number] Information not available 07/22/2020 Which Illicit Or Recreational Drugs Have You Used? NO [id number] Information not available 07/22/2020 Education 12 With Some College [email or web address] Information not available 03/14/2017 Live Alone Or With Others? Alone Information not available 03/14/2017 Marital Status Informatio n not available 03/14/2017 What Was The Date Of Your Most Recent Tobacco Screening? 03/31/2019 [id number] Information not available 07/22/2020 How Many Years Have You Smoked Tobacco? 20 [id number] Information not available 07/22/2020 Sex: Unknown Functional [...] SNOMED-CT Code Diagnosis ICD10 Code Diagnosis Note [id number] Alf Posada MD PAIN OFFICE [address] [place] [address] 03/14/2017 13:22:16 03/14/2017 15:44:04 Spinal stenosis of lumbar region 52960423 M48.06 Lumbosacra l spondylosis without myelopathy 64216638 M47.817 Lumbosacra l radiculitis 45341046 M54.17 Displaceme nt of lumbar intervertebral disc without myelopathy 85748816 M51.26 [id number] Alf Posada MD PAIN OFFICE [address] [place] [address] 05/08/2017 09:51:37 05/09/2017 14:08:37 Spinal stenosis of lumbar region 39796309 M48.06 Lumbosacra l spondylosis without myelopathy 01198653 M47.817 Lumbosacra l radiculitis 18387540 M54.17 Displaceme nt of lumbar intervertebral disc without myelopathy 22723387 M51.26 [id number] Alf Posada MD PAIN OFFICE [address] [place] [address] 06/14/2017 10:36:32 06/17/2017 09:50:43 Spinal stenosis of lumbar region 68450177 M48.06 Lumbosacra l spondylosis without myelopathy 34855601 M47.817 Lumbosacra l radiculitis 61398167 M54.17 Displaceme nt of lumbar intervertebral disc without myelopathy 22862103 M51.26 [id number] Alf Posada MD PAIN OFFICE [address] [place] [address] 08/07/2017 10:01:00 08/07/2017 15:19:24 Spinal stenosis of lumbar region 29598381 M48.062 Lumbosacra l spondylosis without myelopathy 81751755 M47.817 Lumbosacra l radiculitis 98369283 M54.17 Displaceme nt of lumbar intervertebral disc without myelopathy 58722700 M51.26 [id number] Alf Posada MD PAIN OFFICE [address] [place] [place] [address] 09/05/2017 10:11:57 09/05/2017 19:46:07 Spinal stenosis of lumbar region 05989826 M48.062 Lumbosacra l spondylosis without myelopathy 67636496 M47.817 Lumbosacra l radiculitis 13030144 M54.17 Displaceme nt of lumbar intervertebral disc without myelopathy 27119984 M51.26 [id number] Alf Posada MD PAIN OFFICE [address] [place] [address] 09/17/2017 09:13:54 09/19/2017 09:09:31 Spinal stenosis of lumbar region 77854246 M48.062 Lumbosacra l spondylosis without myelopathy 62581101 M47.817 Lumbosacra l radiculitis 62833886 M54.17 Displaceme nt of lumbar intervertebral disc without myelopathy 47024769 M51.26 61302 Alf Posada MD PAIN OFFICE [address] [place] [address] 12/25/2018 11:24:23 12/25/2018 16:12:18 Spinal stenosis of lumbar region 66140980 M48.061 Lumbosacra l spondylosis without myelopathy 01509085 M47.817 Lumbosacra l radiculitis 68759151 M54.17 Displaceme nt of lumbar intervertebral disc without myelopathy 62219254 M51.26 68531 Alf Posada MD PAIN OFFICE [address] [place] [address] 01/07/2019 09:10:35 01/08/2019 15:11:02 Spinal stenosis of lumbar region 24398732 M48.062 Lumbosacra l spondylosis without myelopathy 55553421 M47.817 Lumbosacra l radiculitis 02339917 M54.17 Displaceme nt of lumbar intervertebral disc without myelopathy 93921916 M51.26 [id number] Alf Posada MD PAIN OFFICE [address] [place] [address] 02/04/2019 14:13:14 02/04/2019 16:10:53 Post-herpetic neuritis 446723767 B02.29 Spinal linda nosis of lumbar region 68489606 M48.061 Lumbosacra l spondylosis without myelopathy 70395559 M47.817 Lumbosacra l radiculitis 59419328 M54.17 Displaceme nt of lumbar intervertebral disc without myelopathy 92481693 M51.26 23343 Alf Posada MD PAIN OFFICE [address] [place] [address] 03/31/2019 09:49:03 03/31/2019 18:56:55 Spinal stenosis of lumbar region 78505849 M48.061 Lumbosacra l spondylosis without myelopathy 65192488 M47.817 Lumbosacra l radiculitis 32924391 M54.17 Displaceme nt of lumbar intervertebral disc without myelopathy 62614401 M51.26 57571 Alf Posada MD PAIN OFFICE [address] [place] [address] 05/11/2019 08:51:59 05/11/2019 09:45:44 Inflammation of joint of shoulder region 984544547 M13.819 Spinal linda nosis of lumbar region 94377621 M48.061 11693 Alf Posada MD PAIN OFFICE [address] [place] [address] 12/14/2019 13:40:03 12/14/2019 16:14:01 Spinal stenosis of lumbar region 14096844 M48.061 Lumbosacra l spondylosis without myelopathy 29411337 M47.817 Lumbosacra l radiculitis 45147445 M54.17 Displaceme nt of lumbar intervertebral disc without myelopathy 94086047 M51.26 [id number] Alf Posada MD PAIN OFFICE [address] [facility] [address] 02/12/2020 11:36:11 02/15/2020 12:09:29 Spinal stenosis of lumbar region 08053048 M48.061 Lumbosacra l spondylosis without myelopathy 02826882 M47.817 Lumbosacra l radiculitis 74995012 M54.17 Displaceme nt of lumbar intervertebral disc without myelopathy 35043300 M51.26 [id number] Alf Posada MD PAIN OFFICE [address] [facility] [place] [address] 05/13/2020 08:29:14 05/13/2020 09:22:37 Inflammation of joint of shoulder region 863700377 M13.819 Spinal linda nosis of lumbar region 55902879 M48.061 [id number] Alf Posada MD PAIN OFFICE [address] [facility] [place] [address] 05/23/2020 12:46:33 05/23/2020 15:14:52 Inflammation of joint of shoulder region 006983127 M13.819 Spinal linda nosis of lumbar region 32211451 M48.061 [id number] Alf Posada MD SV PAIN OFFICE [address] [facility] [address] 06/15/2020 10:54:32 06/15/2020 14:04:50 Inflammation of joint of shoulder region 324780555 M13.819 Spinal linda nosis of lumbar region 93596924 M48.061 Lumbosacra l spondylosis without myelopathy 85074029 M47.817 Lumbosacra l radiculitis 58716830 M54.17 Displaceme nt of lumbar intervertebral disc without myelopathy 41888158 M51.26 33564 Alf Posada MD SV PAIN OFFICE [address] Ervin [facility] [place] [address] 07/13/2020 08:30:09 07/13/2020 11:05:07 Inflammation of joint of shoulder region 909990874 M13.819 Spinal linda nosis of lumbar region 38032411 M48.061 [id number] Alf Posada MD SV PAIN OFFICE [address] [facility] [place] [address] 09/06/2020 10:30:56 09/08/2020 15:55:16 Inflammation of joint of shoulder region 981824885 M13.819 Spinal linda nosis of lumbar region 37579635 M48.061 Lumbosacra l spondylosis without myelopathy 04456928 M47.817 Lumbosacra l radiculitis 83252151 M54.17 Displaceme nt of lumbar intervertebral disc without myelopathy 49434703 M51.26 15075 Alf Posada MD [facility] PAIN OFFICE [address] [facility] [place] [address] 11/07/2020 08:59:33 11/07/2020 09:55:18 Spinal stenosis of lumbar region 32640325 M48.061 Lumbosacra l spondylosis without myelopathy 39422241 M47.817 Lumbosacra l radiculitis 55648158 M54.17 Displaceme nt of lumbar intervertebral disc without myelopathy 29964426 M51.26 74312 Alf Posada MD [facility] PAIN OFFICE [address] [facility] [place] [address] 01/10/2021 13:47:25 01/12/2021 10:00:57 Inflammation of joint of shoulder region 298485483 M13.819 Spinal linda nosis of lumbar region 37135487 M48.061 Lumbosacra l spondylosis without myelopathy 93383819 M47.817 Lumbosacra l radiculitis 54955295 M54.17 Displaceme nt of lumbar intervertebral disc without myelopathy 08501224 M51.26 [id number] Alf Posada MD [facility] PAIN OFFICE [address] [place] [address] 02/16/2021 08:44:41 02/16/2021 10:52:14 Spinal stenosis of lumbar region 03059475 M48.061 Lumbosacra l spondylosis without myelopathy 84096079 M47.817 Lumbosacra l radiculitis 27732692 M54.17 Displaceme nt of lumbar intervertebral disc without myelopathy 99430918 M51.26 66780 Alf Posada MD [facility] PAIN OFFICE [address] [facility] [place] [address] 04/11/2021 13:21:59 04/11/2021 14:01:08 Spinal stenosis of lumbar region 63423166 M48.061 Inflammati on of joint of shoulder region 151455285 M13.819 Lumbosacra l spondylosis without myelopathy 61775483 M47.817 Lumbosacra l radiculitis 40478687 M54.17 Displaceme nt of lumbar intervertebral disc without myelopathy 46494922 M51.26 68877 Alf Posada MD [facility] PAIN OFFICE [address] [place] [address] 06/26/2021 15:22:32 06/30/2021 10:03:11 Spinal stenosis of lumbar region 20632803 M48.061 Lumbosacra l spondylosis without myelopathy 09705476 M47.817 Lumbosacra l radiculitis 24166604 M54.17 Displaceme nt of lumbar intervertebral disc without myelopathy 74854587 M51.26 83002 Alf Posada MD [facility] PAIN OFFICE [address] [place] [address] 07/11/2021 12:54:52 07/11/2021 13:38:15 Spinal stenosis of lumbar region 91950914 M48.061 Inflammati on of joint of shoulder region 331680145 M13.819 Lumbosacra l spondylosis without myelopathy 72236219 M47.817 Lumbosacra l radiculitis 81442201 M54.17 Displaceme nt of lumbar intervertebral disc without myelopathy 85059428 M51.26 60309 Alf Posada MD PAIN OFFICE [address] [place] [address] 10/04/2021 10:46:49 10/04/2021 12:00:47 Spinal stenosis of lumbar region 95414872 M48.061 Inflammati on of joint of shoulder region 561818898 M13.819 Lumbosacra l spondylosis without myelopathy 10235254 M47.817 Lumbosacra l radiculitis 15155270 M54.17 Displaceme nt of lumbar intervertebral disc without myelopathy 98598313 M51.26 93178 Alf Posada MD PAIN OFFICE [address] [place] [address] 12/12/2021 11:17:23 12/12/2021 14:28:00 Spinal stenosis of lumbar region 77571801 M48.061 Inflammati on of joint of shoulder region 694970061 M13.819 Lumbosacra l spondylosis without myelopathy 54573831 M47.817 Lumbosacra l radiculitis 97099881 M54.17 Displaceme nt of lumbar intervertebral disc without myelopathy 37855703 M51.26 01467 Alf Posada MD PAIN OFFICE [address] [place] [address] 08/21/2022 10:05:44 08/21/2022 11:05:40 Spinal stenosis of lumbar region 30079816 M48.061 Inflammati on of joint of shoulder region 351078394 M13.819 Lumbosacra l spondylosis without myelopathy 98505158 M47.817 Lumbosacra l radiculitis 83806173 M54.17 Displaceme nt of lumbar intervertebral disc without myelopathy 62844447 M51.26 Degenerati on of lumbar intervertebral disc 62749722 M51.36 Health Concerns Section Related Observation LastModified by Organization Detai ls LastModified Time None Recorded Concern Status LastModified by Organization Details LastModified Time None Recorded Advance Directives Directive None Recorded Payers Encounter Date Sequence Insurance Name Policy Number Policy Anders Covered Member ID Anders Member ID Guarantor Name 06/26/2021 1 [place] [employer] Shreya M Gravel [id number] Shreya Gravel 06/26/2021 2 [place] [id number] Shreya Gravel [id number] Shreya Gravel 07/11/2021 1 [place] Shreya M Gravel [id number] Shreya Gravel 07/11/2021 2 [place] [id number] Shreya Gravel [id number] Shreya Gravel 10/04/2021 1 [place] [employer] Shreya M Gravel [id number] Shreya Gravel 10/04/2021 2 [place] [id number] Shreya Gravel [id number] Shreya Gravel 12/12/2021 1 [place] Shreya M Gravel [id number] Shreya Gravel 12/12/2021 2 [place] [id number] Shreya Gravel [id number] Shreya Gravel 08/21/2022 1 [place] Shreya M Gravel [id number] Shreya Gravel 08/21/2022 2 [place] [id number] Shreya Gravel [id number] Shreya Gravel Notes Date Note Type [...] bladder or bowel incontinence. Alf Posada MD [address] [facility] , [address], [place], [address], [place] [facility] 07/10/2021 08:52:57 07/11/2021 text/html She is here for a lumbar epidural steroid injection under fluoroscopic guidance. Alf Posada MD [address] [facility] , [address], [place], [address], [place] [facility] 07/12/2021 09:01:37 10/04/2021 text/html She is here for a lumbar epidural steroid injection under fluoroscopic guidance. Alf Posada MD [address] [facility] , [address], [place], [address], [place] - [facility] 10/04/2021 12:48:56 12/12/2021 text/html She is here for a lumbar epidural steroid injection under fluoroscopic guidance. Alf Posada MD [address] [facility] , [address], [place], [address], [place] [facility] 12/12/2021 16:13:18 08/21/2022 text/html She is here for a lumbar epidural steroid injection under fluoroscopic guidance. She has stopped eliquis and pletal as instructed for the procedure. Alf Posada MD [address] [facility] , [address], [place], [address], [place] - [facility] 08/22/2022 08:44:58 OBGyn Episode No OBEpisode recorded.
--- OUTSIDE RECORDS SUMMARY | 2025-01-11 06:03 | XMS_ITS | Data Portability ---
Author Organization [facility] [employer] [facility], Main Office Address [address] [facility] [facility], [address] [place] [address] Care Team Providers Care Dental Equipment Repairer Name Role Phone DARRIN STYLES 3RD FLOOR OTHER [phone] Assessment Encounter Date Assessment Date Assessment LastModified by Organization Details LastModified Time 10/05/2024 10/05/2024 Labs 10/02: Na 139-K 4.0-Bun [...] and Address Organization Details Recorded Time Cystitis 50104199 Active 2023 FRIEDA ANDERSON [address] [facility], [address], [place], [address], [facility] [employer] 4 14:00:02 Falls 217035285 Active 2023 FRIEDA ANDERSON [address] [facility], [address], [place], [address], [facility] [employer] 4 14:00:38 Pain of right wrist [id number] 00 Active 2023 FRIEDA ANDERSON [address] [facility], [address], [place], [address], [facility] [employer] 4 14:00:56 Peripheral venous insufficien cy 08436761 Active 2023 [place], [facility] [address], [address], [place], [address], [facility] [employer] [facility] 4 14:01:26 Chronic diastolic heart failure 196956914 Active 2023 [place], [facility] [address], [place], [address], [facility] - [facility] 4 14:01:46 Type 2 diabetes mellitus 16121125 Active 2023 [place], [facility] [address], [address], [place], [address], [facility] [employer] [facility] 4 14:01:55 Paroxysmal atrial flutter 882226701 Active 2023 [place], [facility] [address], [address], [place], [address], [facility] [employer] [facility] 4 14:02:21 Restless legs 98268994 Active 2023 [place], [facility] [address], [place], [address], [facility] 4 14:02:38 Chronic obstructive pulmonary disease 08294750 Active 2023 [place], [facility] [address], [address], [place], [address], [facility] 4 14:02:49 Anemia of chronic disease 349609637 Active 2023 [place], [facility] [address] [facility], [address], [place], [address], [facility] [employer] [facility] 4 14:02:59 Mixed anxiety and depressive disorder 975402163 Active 2023 [place], [facility] [address], [address], [place], [address], [facility] 4 14:17:43 Chronic kidney disease 046583652 Active 2023 [place], [facility] [address], [address], [place], [address], [facility] [employer] [facility] 4 14:19:41 Hyperlipide nena 72612090 Active 2023 FRIEDA ANDERSON [address], [address], [place], [address], [facility] [employer] [facility] 4 14:26:52 Gastroesoph ageal reflux disease 272696342 Active 2023 FRIEDA ANDERSON [address], [address], [place], [address], [facility] [employer] [facility] 4 14:27:49 Chronic back pain 340550409 Active 2023 FRIEDA ANDERSON [address], [address], [place], [address], [facility] [employer] [facility] 4 14:40:47 Vitamin D deficiency 06883471 Active 2023 FRIEDA ANDERSON [address], [place], [address], [facility] [employer] [facility] 4 19:41:46 Bradycardia 56586615 Active 2023 FRIEDA ANDERSON [address], [place], [address], [facility] [facility] 4 19:44:32 Asthenia 14957686 Active 2023 FRIEDA ANDERSON [address], [address], [place], [address], [facility] [employer] [facility] 4 19:53:05 Bleeding from nose 644349803 Active 2023 FRIEDA ANDERSON [address], [address], [place], [address], [facility] [employer] [facility] 4 15:36:07 Osteomyelit is 25858624 Active 2023 Naomi Todd MD [address], [address], [place], [address], [facility] [employer] [facility] 4 17:53:51 Headache 42475540 Active 2023 WISAM SILVA NP [address], [address], [place], [address], [facility] 4 09:49:14 Essential hypertensio n 63835059 Active 2024 Rex Bass MD [address] [facility], [address], [place], [address], [employer] 5 09:46:16 Problem Notes None recorded. Medical Equipment None Reported. Allergies Allergen ID Allergen Name Allergen Category Reaction Reaction Severity Criticality Documentation Date Start Date Code Code System Note Provider Name and Address Organization Details Recorded Time 11536 lisinopri l medicatio n Not available Not available Not available 10/22/2023 20486 RxNorm Not Available Not Available Not Available [...] Avai lable Vitals Date Recorded Body height Oxygen saturation Oxygen saturation in Arterial blood by Pulse oximetry Body temperature Respiratory rate Provider Name and Address Organization Details Last Updated DateTime 4 165.1 cm 97 % 97 % 97.9 [degF] 18 /min FRIEDA ANDERSON [address] [facility], [address], [place], [address], [employer] 4 11:22:24 Date Recorded Body height Heart rate Respiratory rate Oxygen saturation Oxygen saturation in Arterial blood by Pulse oximetry Provider Name and Address Organization Details Last Updated DateTime 4 165.1 cm 70 /min 16 /min 96 % 96 % FRIEDA ANDERSON [address] [facility], [address], [place], [address], [employer] 4 16:00:47 Date Recorded Body height Systolic blood pressure Diastolic blood pressure Provider Name and Address Organization Details Last Updated DateTime 11/25/2024 165.1 cm 129 mm[Hg] 73 mm[Hg] Rex Bass MD [address] [facility], [address], [place], [address], [facility] 11/25/2024 11:53:24 Date Recorded Body height Body temperature Heart rate Respiratory rate Systolic blood pressure Diastolic blood pressure Provider Name and Address Organization Details Last Updated DateTime 5 165.1 cm 97.4 [degF] 84 /min 18 /min 142 mm[Hg] 70 mm[Hg] Rex Bass MD [address], [address], [place], [address], [facility] 5 09:39:14 Social History Question Answer Notes LastModified by Organizat ion Details LastModified Time Tobacco Smoking Status Former Smoker quit 30 yrs ago FRIEDA ANDERSON [address], [address], [place], [address], [facility] 10/24/2023 14:39:11 Do You Have An [...] not available 10/24/2023 Where Do You Live? [facility] Now LTC At [facility], Had Been Living At [facility] Information not available 04/13/2024 Legal Guardian? No Informati on not available 10/24/2023 Do You Have A Medical Power Of Loan Servicing Representative? Yes Information not available 10/24/2023 What Was [...] Organization Details Recorded Time Tdap 2 completed Florgwen Luna [facility] 12/27/2023 11:11:29 Pneumococcal conjugate PCV 13 7 completed Flor Luna [facility] 12/27/2023 11:11:41 Influenza, adjuvanted, quadrivalent, PF 3 completed Flor Luna [facility] 12/27/2023 11:11:59 COVID-19, mRNA, LNP-S, bivalent, PF, 30 mcg/0.3 mL dose 1 completed Florgwen Luna [facility] 12/27/2023 11:12:12 COVID-19, mRNA, LNP-S, bivalent, PF, 30 mcg/0.3 mL dose 1 completed Flor Luna [facility] 12/27/2023 11:12:20 COVID-19, mRNA, LNP-S, bivalent, PF, 30 mcg/0.3 mL dose 1 completed Flor Luna [facility] 12/27/2023 11:12:29 COVID-19, mRNA, LNP-S, bivalent, PF, 30 mcg/0.3 mL dose 2 completed Florgwen Luna [facility] 12/27/2023 11:12:48 Past Encounters Encounter ID Performer Location Encounter Start Date Encounter Closed Date Diagnosis/Indication Diagnosis SNOMED-CT Code Diagnosis ICD10 Code Diagnosis Note [id number] FRIEDA ANDERSON [address] [place] [address] [place] [address] 10/23/2023 08:21:08 10/28/2023 15:39:59 Cystitis 09257056 N30.90 With MDROInitia lly with Vanco and cefepime however cultures growing MDRO Klebsiella Started meropenem 1 g q12 for 7 days.start ed 10/19 for 7 full days of treatment to end 10/26.probi otic added Falls 064804238 R29.6 likely multifacto rial from neuropathy , frailty, arthritis and LE edemaCT negative for any fractures. CT Head/Brain W/O Contrast negativeIn itiated safety precaution per facility protocolPT /OT eval and tx. Peripheral venous insufficiency 58178491 I87.2 Venous insufficie ncy of both lower extremitie sDoppler LLE no DVT, symmetric erythema without increased warmth or tenderness , appears similar to previous picture taken, low suspicion for superimpos ed cellulitis Chronic di astolic heart failure 293263596 I50.32 preserved EFeuvolemi ctorsemide held in acute care d/t hypotensio n and bradycardi c 50'smonito r BP and need to restartmon itor weights Chronic ob structive pulmonary disease 06021087 J44.9 Albuterol Sulfate Nebulizati on Solution (2.5 MG/3ML) Q6 prnAdvair Utbaze170- 50 mcg Q12 Restless legs 57977615 G 25.81 ROPINIRole HCl Tablet 2 MG BID Type 2 jr betes mellitus 23435037 E11.21 continue monitor glucose,Li spro SSI coverageGa bapentin Capsule 300 MG at bedtime for neuropathy pain.trama dol 25 mg q12 prn Paroxysmal atrial flutter 053521202 I48.92 not on anticoagAm iodarone HCl Tablet 200 MG dailymonit or HR Mixed anxi ety and depressive disorder 597451205 F41.8 Escitalopr am Oxalate Tablet 30 mg dailymonit or for mood and behavorial changes. Anemia of chronic disease 168378924 D63.8 Ferrous Sulfate Tablet 325 dailymonit or labs prn Hyperlipidemia 50342610 E78.5 Atorvastat in 20 mg dailymonit or labs Gastroesop hageal reflux disease 207025595 K21.9 Pantoprazo le40 mg dailymonit or for gi upset. Chronic back pain 708566 002 G89.29 tramadol 25 mg Q12 prngabapen tin 300 mg at hs Vitamin D deficiency 347 85090 E55.9 Cholecalci ferol 2000 UNIT daily Pain of right wrist 3169 999013 63794 M25.531 x-ray was ordered which was negative.P T/OT eval and tx Bradycardia 40059995 R00 .1 in acute care HR as low as 40snormal VT/QRS/QTc prolongati on..T nonspecifi c isolated T wave inversions on single lead V2 were present on recent study from 07/19/2023 . No evidence of acute ischemic changes. Chronic ki dney disease 714404469 N18.9 Renal function is at baselinemo nitor labsavoid nephrotoxi c drugs Asthenia 29749082 R53.1 hx of multiple fallsambul ates with walkerPT/O T eval and treat [id number] Naomi Todd MD [address] [place] [address] 10/24/2023 16:17:28 11/06/2023 11:12:59 Cystitis 89895069 N30.00 Continue meropenem 1 g q 12 hrs to complete 7 d course on 10/26.Monit or for recurrent sxs. Falls 583648019 R29.6 Likely multifacto rial from neuropathy , frailty, arthritis and LE edemaVery deconditio christoph.Needs PT/OT for strengthen ing, balance, gait training, safety and function.C ontinue fall precaution s.Monitor for safety. Peripheral venous insufficiency 15721578 I87.2 Almost at baseline per pt.Continu e local care and elevation. Chronic di astolic heart failure 411884951 I50.32 Appears euvolemic. Monitor for need for diuretics. Monitor resp. status, fluid status, wts and labs. Chronic ob structive pulmonary disease 74632350 J43.8 No current sxs.Contin ue Advair 250/50 BID and albuterol nebs q 6 hrs prnMonitor resp status. Restless legs 00006800 G 25.81 Continue ropinirole 2 mg BIDMonitor sxs. Type 2 jr betes mellitus 67437760 E11.21 Diet controlled .Sugar <150 yest, not checked previously .Continue gabapentin 300 MG qhs and tramadol q 12 hrs prn for neuropathy Monitor fingerstic ks BID x 1 wk with SSI, d/c if not needing coverage. Paroxysmal atrial flutter 739344934 I48.92 Rate in good control on amiodarone 200 mg qdNot on AC due to age and fall riskMonito r HR Mixed anxi ety and depressive disorder 211495523 F41.8 Mood down today due to concerns about living situation. Continue escitalopr am 30 mg qdMonitor mood.Consu lt psych prn Anemia of chronic disease 004905348 D63.8 Continue FeSO4 325 mg qd with vitamin C 250 mg qd for absorption .Monitor labs Hyperlipidemia 66078400 E78.49 Continue atorvastat in 20 mg qdMonitor labs yearly Gastroesop hageal reflux disease 878253402 K21.9 No current sxs.Contin ue pantoprazo le 40 mg qdMonitor sxs Chronic ki dney disease 982750636 N18.9 In hx, but renal function WNL yest.Cindy nue to avoid nephrotoxi c meds as able.Monit or labs.Renal consult prn. Chronic back pain 933242 002 G89.29 Continue tramadol 25 mg q 12 hrs prn and gabapentin 300 mg qhsMonitor sxs. [id number] FRIEDA ANDERSON [address] [place] [address] [place] [address] 10/29/2023 07:42:54 11/01/2023 08:26:34 Cystitis 32739621 N30.90 With MDROInitia lly with Vanco and cefepime however cultures growing MDRO Klebsiella Started meropenem 1 g q12 for 7 days.start ed 10/19 for 7 full days of treatment to end 10/26.- completed denies any dysuriapro biotic added Falls 115362982 R29.6 continue to work with PT/OT for strengthen inglikely multifacto rial from neuropathy , frailty, arthritis and LE edemaCT negative for any fractures. CT Head/Brain W/O Contrast negativeIn itiated safety precaution per facility protocol Peripheral venous insufficiency 97957104 I87.2 BLE edema left greater than right Venous insufficie ncy of both lower extremitie sDoppler LLE no DVT, symmetric erythema without increased warmth or tenderness , appears similar to previous picture taken, low suspicion for superimpos ed cellulitis Chronic di astolic heart failure 801367402 I50.32 preserved EFeuvolemi ctorsemide held in acute care d/t hypotensio n and bradycardi c 50'smonito r BP and need to restartmon itor weights Chronic ob structive pulmonary disease 67690605 J44.9 Albuterol Sulfate Nebulizati on Solution (2.5 MG/3ML) Q6 prnAdvair Lwufhu358- 50 mcg Q12 Restless legs 98146799 G 25.81 ROPINIRole HCl Tablet 2 MG BID Type 2 jr betes mellitus 95999750 E11.21 continue monitor glucose,Li spro SSI coverageGa bapentin Capsule 300 MG at bedtime for neuropathy pain.trama dol 25 mg q12 prn Paroxysmal atrial flutter 334343637 I48.92 not on anticoagAm iodarone HCl Tablet 200 MG dailymonit or HR Mixed anxi ety and depressive disorder 852341807 F41.8 Escitalopr am Oxalate Tablet 30 mg dailymonit or for mood and behavorial changes. Anemia of chronic disease 171149736 D63.8 Ferrous Sulfate Tablet 325 dailymonit or labs prn Hyperlipidemia 64710741 E78.5 Atorvastat in 20 mg dailymonit or labs Gastroesop hageal reflux disease 783745194 K21.9 Pantoprazo le40 mg dailymonit or for gi upset. Chronic back pain 622796 002 G89.29 tramadol 25 mg Q12 prngabapen tin 300 mg at hs Vitamin D deficiency 347 96652 E55.9 Cholecalci ferol 2000 UNIT daily Pain of right wrist 3169 852895 54325 M25.531 x-ray was ordered which was negative.P T/OT eval and tx Bradycardia 42811170 R00 .1 in acute care HR as low as 40snormal VT/QRS/QTc prolongati on..T nonspecifi c isolated T wave inversions on single lead V2 were present on recent study from 07/19/2023 . No evidence of acute ischemic changes. Chronic ki dney disease 332920754 N18.9 Renal function is at baselinemo nitor labsavoid nephrotoxi c drugs Asthenia 21481912 R53.1 hx of multiple fallsambul ates with walkerPT/O T eval and treat [id number] FRIEDA ANDERSON [address] [address] 11/01/2023 08:04:11 11/06/2023 11:37:03 Cystitis 61189984 N30.90 With MDROInitia lly with Vanco and cefepime however cultures growing MDRO Klebsiella Started meropenem 1 g q12 for 7 days.start ed 10/19 for 7 full days of treatment to end 10/26.- completed denies any dysuriapro biotic added Pruritus of vagina 36982 003 L29.3 Reports vaginal itchiness for over [...] BID for 7 days and re eval. [id number] FRIEDA ANDERSON [address] [address] 11/04/2023 12:13:42 11/06/2023 12:50:39 Falls 087841463 R29.6 see/HPiwit nessed fallwith injury/lac eration above left eye.no LOC Facial laceration 534427 008 S01.81XA above left eye/about 2 cm in lengthblee ding controlled , wrapped in gauze dressing. [id number] FRIEDA ANDERSON [address] [address] 11/06/2023 09:19:58 11/13/2023 12:17:34 Falls 793571847 R29.6 see/HPiwit nessed fallwith injury/lac eration above left eye.no LOCContinu e PT/OT Facial laceration 152695 008 S01.81XA above left eye/about 2 cm in lengthappe ars to be about 10-12 small dissolvabl e sutures in placedenie s any visual changes or headache.n ursing to monitor healing Pruritus of vagina 34299 003 L29.3 Reports vaginal itchiness for over [...] days and re eval. Chronic back pain 999354 002 G89.29 denies any new discomfort post falltramad ol 25 mg Q12 prngabapen tin 300 mg at hs Asthenia 83950817 R53.1 hx of multiple fallsambul ates with walkerPT/O T continue [id number] FRIEDA ANDERSON [address] [place] [address] 11/08/2023 13:54:21 11/13/2023 13:10:32 Falls 947146155 R29.6 on 11/04/23wit nessed fallwith injury/lac eration above left eye.no LOCContinu e PT/OT Facial laceration 221332 008 S01.81XA above left eye/about 2 cm in lengthappe ars to be about 10-12 small di-solvabl e sutures in placedenie s any visual changes or headache.n ursing to monitor healing Pruritus of vagina 34115 003 L29.3 Reports vaginal itchiness for over [...] assure med is applied. Chronic back pain 457176 002 G89.29 denies any new discomfort post falltramad ol 25 mg Q12 prngabapen tin 300 mg at hs Asthenia 56672310 R53.1 hx of multiple fallsambul ates with walkerPT/O T continue [id number] FRIEDA ANDERSON [address] [place] [address] 11/13/2023 10:59:21 11/15/2023 09:29:54 Falls 360115175 R29.6 on 11/04/23wit nessed fallwith injury/lac eration above left eye.no LOCContinu e PT/OT Facial laceration 646283 008 S01.81XA healingabo ve left eye/about 2 cm in lengthappe ars to be about 10-12 small di-solvabl e sutures in placedenie s any visual changes or headache.n ursing to monitor healing Pruritus of vagina 82461 003 L29.3 improving, continues with triamcinol one topical cream BID Chronic back pain 835236 002 G89.29 denies any new discomfort post falltramad ol 25 mg Q12 prngabapen tin 300 mg at hs Asthenia 14053225 R53.1 hx of multiple fallsambul ates with walkerPT/O T continues [id number] FRIEDA ANDERSON [address] [address] 11/18/2023 07:58:48 11/21/2023 13:26:13 Falls 901379375 R29.6 on 11/04/23wit nessed fallwith injury/lac eration above left eye.no LOCContinu e PT/OT Facial laceration 978684 008 S01.81XA healingabo ve left eye/about 2 cm in lengthappe ars to be about 10-12 small di-solvabl e sutures in placedenie s any visual changes or headache.n ursing to monitor healing Pruritus of vagina 45968 003 L29.3 improving, continues with triamcinol one topical cream BID Chronic back pain 082687 002 G89.29 denies any new discomfort post falltramad ol 25 mg Q12 prngabapen tin 300 mg at hs Asthenia 49954944 R53.1 hx of multiple fallsambul ates with walkerPT/O T continues [id number] FRIEDA ANDERSON [address] [address] 11/21/2023 13:49:57 11/25/2023 12:31:48 Falls 353991541 R29.6 on 11/04/23wit nessed fallwith injury/lac eration above left eye.no LOCContinu e PT/OT Facial laceration 292098 008 S01.81XA 1/29 s/p fall for laceration above left eye.healin g no s/sx of infectiona rolan left eye/about 2 cm in lengthappe ars to be about 10-12 small di-solvabl e sutures in placedenie s any visual changes or headache.n ursing to monitor healing Pruritus of vagina 41810 003 L29.3 improving, continues with triamcinol one topical cream BID Chronic back pain 360031 002 G89.29 denies any new discomfort post falltramad ol 25 mg Q12 prngabapen tin 300 mg at hs Asthenia 87186979 R53.1 hx of multiple fallsambul ates with walkerPT/O T continues [id number] FRIEDA ANDERSON [address] [address] 11/26/2023 07:45:18 11/28/2023 10:55:36 Falls 122119796 R29.6 on 11/04/23wit nessed fallwith injury/lac eration above left eye.no LOCContinu e PT/OT Facial laceration 333029 008 S01.81XA 11/04 s/p fall for laceration above left eye.healin g no s/sx of infectiona rolan left eye/about 2 cm in lengthappe ars to be about 10-12 small di-solvabl e sutures in placedenie s any visual changes or headache.n ursing to monitor healing Pruritus of vagina 70057 003 L29.3 triamcinol one topical cream BIDkeep area clean and dry. Chronic back pain 239765 002 G89.29 tramadol 25 mg Q12 prngabapen tin 300 mg at hs Asthenia 15377878 R53.1 hx of multiple fallsambul ates with walkerPT/O T continues [id number] FRIEDA ANDERSON [address] [address] 11/29/2023 08:06:37 12/03/2023 11:20:10 Falls 165945918 R29.6 on 11/04/23wit nessed fallwith injury/lac eration above left eye.no LOCContinu e PT/OT Facial laceration 108359 008 S01.81XA healed11/04 s/p fall for laceration above left eye.above left eye/about 2 cm in lengthdeni es any visual changes or headache. Pruritus of vagina 63119 003 L29.3 triamcinol one topical cream BIDkeep area clean and dry. Chronic back pain 919349 002 G89.29 tramadol 25 mg Q12 prngabapen tin 300 mg at hs Asthenia 45943509 R53.1 hx of multiple fallsambul ates with walkerPT/O T continues [id number] FRIEDA ANDERSON [address] [address] 12/04/2023 07:53:49 12/10/2023 10:21:37 Falls 317889195 R29.6 on 11/04/23wit nessed fallwith injury/lac eration above left eye.no LOCContinu e PT/OT Facial laceration 731668 008 S01.81XA healed11/04 s/p fall for laceration above left eye.above left eye/about 2 cm in lengthdeni es any visual changes or headache. Pruritus of vagina 43084 003 L29.3 triamcinol one topical cream BIDkeep area clean and dry. Chronic back pain 633864 002 G89.29 tramadol 25 mg Q12 prngabapen tin 300 mg at hs Asthenia 90970304 R53.1 hx of multiple fallsambul ates with walkerPT/O T continues Cellulitis of right lower limb 2128904515 8189527 L03.115 see hpistarted keflex on 11/30/23 for 7 days with probiotic for 10 daysencour aged to elevated lower extremitie s to elevate edemamonit or for resolution [id number] FRIEDA ANDERSON [address] [address] 12/11/2023 10:06:59 12/13/2023 13:01:47 Falls 006572134 R29.6 no recent falls reported Facial laceration 173105 008 S01.81XA healed11/04 s/p fall for laceration above left eye.above left eye/about 2 cm in lengthdeni es any visual changes or headache. Pruritus of vagina 05433 003 L29.3 triamcinol one topical cream BIDkeep area clean and dry. Chronic back pain 091514 002 G89.29 tramadol 25 mg Q12 prngabapen tin 300 mg at hs Cellulitis of right lower limb 0919612282 8793249 L03.115 resolved. [id number] FRIEDA ANDERSON [address] [address] 12/18/2023 09:20:38 12/20/2023 14:10:33 Chronic diastolic heart failure 087522867 I50.32 preserved EFeuvolemi ctorsemide held in acute care d/t hypotensio n and bradycardi c 50'smonito r BP and need to restartmon itor weights Mixed anxi ety and depressive disorder 857354648 F41.8 stable and pleasantEs citalopram Oxalate Tablet 30 mg dailymonit or for mood and behavorial changes. Type 2 jr betes mellitus 65748234 E11.21 continue monitor glucose,Li spro SSI coverageGa bapentin Capsule 300 MG at bedtime for neuropathy pain.trama dol 25 mg q12 prn [id number] FRIEDA ANDERSON [address] [address] 12/25/2023 11:16:29 12/30/2023 16:09:32 Chronic diastolic heart failure 162292369 I50.32 preserved EFBLE +1was on torsemide but was d/c in acute caremonito r weights- [facility] Mixed anxi ety and depressive disorder 238095306 F41.8 stable and pleasantEs citalopram Oxalate Tablet 30 mg dailymonit or for mood and behavorial changes. Type 2 jr betes mellitus 48775162 E11.21 continue monitor glucose,Li spro SSI coverageGa bapentin Capsule 300 MG at bedtime for neuropathy pain.trama dol 25 mg q12 prn [id number] Naomi Todd MD [address] [address] 12/26/2023 19:19:22 01/31/2024 14:21:17 Cystitis 31447403 N30.00 Completed course of meropenem 1 g q 12 hrs on 10/26.Monit or for recurrent sxs. Falls [id number] R29.6 Continues to be a high fall risk and needs CG and sometimes an assist for transfers. No longer getting acute PT/OT services, restart as able.Cindy nue fall precaution s.Monitor for safety. Peripheral venous insufficiency 13198959 I87.2 No current sxs.Contin ue local care and elevation. Chronic di astolic heart failure 726467388 I50.32 Appears euvolemic. Monitor for need for diuretics. Monitor resp. status, fluid status, wts and labs. Chronic ob structive pulmonary disease 64553842 J43.8 Continues with no sxs.Contin ue Advair 250/50 BID and albuterol nebs q 6 hrs prnMonitor resp status. Type 2 jr betes mellitus 43603573 E11.21 Sugars were all <150 when checked for 3 days.Cindy nue gabapentin 300 MG qhs and tramadol q 12 hrs prn for neuropathy Monitor fingerstic ks prn and HgA1C q 3-6 months Paroxysmal atrial flutter 328913317 I48.92 Rate remains in good control on amiodarone 200 mg qdNo AC due to age and fall riskMonito r HR Restless legs 48120893 G 25.81 Continue ropinirole 2 mg BIDMonitor sxs. Mixed anxi ety and depressive disorder 848176882 F41.8 Mood stableCont inue escitalopr am 30 mg qdMonitor mood.Consu lt psych prn Anemia of chronic disease 987141705 D63.8 Hgb has been stable.Con tinue FeSO4 325 mg qd with vitamin C 250 mg qd for absorption .Monitor labs Hyperlipidemia 42261312 E78.49 Continue atorvastat in 20 mg qdMonitor labs yearly Gastroesop hageal reflux disease 813994654 K21.9 No current sxs.Contin ue pantoprazo le 40 mg qdMonitor sxs Chronic ki dney disease 442795689 N18.1 Renal function remains WNLContinu e to avoid nephrotoxi c meds as able.Monit or labs.Renal consult prn. Chronic back pain 659198 002 G89.29 Continue tramadol 25 mg q 12 hrs prn and gabapentin 300 mg qhsMonitor sxs. 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 Type 2 jr betes mellitus 57594230 E11.21 continue monitor glucose,Li spro SSI coverageGa bapentin Capsule 300 MG at bedtime for neuropathy pain.trama dol 25 mg q12 prn Spasm 19871771 R25.2 12/31/23 nursing reported pt was having left upper leg/buttoc k pain/spasm tramadol changed from q12 to q6 and robaxin 500 mg q 6 prn addedtoday pt states that medication was effectivew ill monitor for worsening sx [id number] [facility] [address] [place] [address] 01/08/2024 13:26:41 01/10/2024 11:20:05 Chronic diastolic heart failure 315133785 I50.32 no weight gain notedconti nue furosemide 10 mg dailymonit or labs , weightsmon itor for cardiopulm onary sx Mixed anxi ety and depressive disorder 003871769 F41.8 continue Escitalopr am Oxalate Tablet 30 mg dailymonit or for mood and behavorial changes. Type 2 jr betes mellitus 50987561 E11.21 continue monitor glucose,co ntinue Lispro SSI coverageco ntinue Gabapentin Capsule 300 MG at bedtime for neuropathy pain.cindy nue tramadol 50 mg q 8 prn Spasm 01461533 R25.2 to LLE and glutealpai n has improvedRo baxin 500 mg discontinu e -it was ordered for short term use onlycontin ue tramadol 50 mg prn [id number] FRIEDA ANDERSON [address] [address] 01/15/2024 09:55:29 01/27/2024 16:00:52 Cervical radiculopathy 74299626 M54.12 start diclofenac gel daily and q8 prncontinu e tramadol 50 mg Q6 prncontinu e gabapentin 300 mg at hs add 300 mg QDrefer to physical therapy for eval and tx [id number] FRIEDA ANDERSON [address] [address] 01/22/2024 09:25:19 01/28/2024 11:32:54 Cervical radiculopathy 51059146 M54.12 continue diclofenac gel daily and q8 prncontinu e tramadol 50 mg Q6 prncontinu e gabapentin 300 mg at hs add 300 mg QDper therapy patient neck pain is chronic and she was previously treated and recommende d Chronic di astolic heart failure 478671014 I50.32 monitor labs , weights , edemamonit or for cardiopulm onary sxencourag ed leg elevation/ wraps as needed. Gastroesop hageal reflux disease 865653092 K21.9 Pantoprazo le40 mg dailymonit or for gi upset. Mixed anxi ety and depressive disorder 471773392 F41.8 continue Escitalopr am Oxalate Tablet 30 mg dailymonit or for mood and behavorial changes. Type 2 jr betes mellitus 04987926 E11.21 continue monitor glucose,co ntinue Lispro SSI coverageco ntinue Gabapentin Capsule 300 MG at bedtime for neuropathy pain.cindy nue tramadol 50 mg q 8 prn [id number] FRIEDA ANDERSON [address] [address] 01/27/2024 10:53:32 02/17/2024 12:46:54 Cervical radiculopathy 66635214 M54.12 continue diclofenac gel daily and q8 prncontinu e tramadol 50 mg Q6 prncontinu e gabapentin 300 mg at hs add 300 mg QD Chronic di astolic heart failure 939255389 I50.32 monitor labs , weights , edemamonit or for cardiopulm onary sxencourag ed leg elevation/ wraps as needed. Gastroesop hageal reflux disease 569925905 K21.9 Pantoprazo le40 mg dailymonit or for gi upset. Mixed anxi ety and depressive disorder 032255026 F41.8 continue Escitalopr am Oxalate Tablet 30 mg dailymonit or for mood and behavorial changes. Type 2 jr betes mellitus 72539614 E11.21 bgl have been stablecont inue monitor glucose,co ntinue Lispro SSI coverageco ntinue Gabapentin Capsule 300 MG at bedtime for neuropathy pain.cindy nue tramadol 50 mg q 8 prn Falls 712272470 R29.6 no recent fallsConti nues to be a high fall risk and needs CG and sometimes an assist for transfers. she has reduce functional mobility to left lower extremity due to pain in her ankle.Alba ent would benefit from an AFO to provide support to LLE/ankle and reduce pain. [id number] FRIEDA ANDERSON [address] [address] 01/30/2024 10:23:09 02/04/2024 14:43:29 Bleeding from nose 267798257 R04.0 see hpistart afrin 2 spray to right nares q12 x 5days.janice luz maria for recurrence monitor BP/rebound congestion [id number] FRIEDA ANDERSON [address] [address] 02/05/2024 09:31:19 02/11/2024 09:17:30 Bleeding from nose 106727759 R04.0 resolved. Cervical radiculopathy 37446381 M54.12 continue diclofenac gel daily and q8 prncontinu e tramadol 50 mg Q6 prncontinu e gabapentin 300 mg at hs add 300 mg QDper therapy patient neck pain is chronic and she was previously treated and recommende d Chronic di astolic heart failure 994051177 I50.32 monitor labs , weights , edemamonit or for cardiopulm onary sxencourag ed leg elevation/ wraps as needed. Gastroesop hageal reflux disease 426128423 K21.9 Pantoprazo le40 mg dailymonit or for gi upset. Mixed anxi ety and depressive disorder 876482805 F41.8 continue Escitalopr am Oxalate Tablet 30 mg dailymonit or for mood and behavorial changes. Type 2 jr betes mellitus 61028336 E11.21 continue monitor glucose,co ntinue Lispro SSI coverageco ntinue Gabapentin Capsule 300 MG at bedtime for neuropathy pain.cindy nue tramadol 50 mg q 8 prn [id number] Naomi Todd MD [address] [place] [address] 02/28/2024 13:56:25 03/10/2024 11:09:37 Pain in left foot 0675161254 65581 M79.672 With new deformity of left great [...] q 8 hrs prn for pain. Diarrhea 23397934 R19.7 Only has happened one time so far, possibly from stress.Ord ered imodium prnMonitor [id number] FRIEDA ANDERSON [address] [place] [address] 03/04/2024 14:57:51 03/10/2024 11:43:05 Pain in left foot 4134366093 40364 M79.672 deformity of left great toe, with [...] for pain. Blister of toe without infection 72898035 S90.425A continue warm soaks as aboveclean se left 2nd toe with soap and warm water, hydrogen peroxideap ply petroleum and cover with gauze or non stick dressing daily and prnmonitor for healing. [id number] FRIEDA ANDERSON [address] [place] [address] 03/06/2024 14:42:26 03/10/2024 12:16:05 Mixed anxiety and depressive disorder 029464983 F41.8 continue Escitalopr am Oxalate Tablet 30 mg dailywill adjust trazodone and increased from 12.5 mg to 25 mg scheduled at HS per psych rec.and continue prn trazodone 12.5 mg bid prn, anxiety for 14 days.monit or for mood and behavorial changes. [id number] FRIEDA ANDERSON [address] [place] [address] 03/10/2024 10:17:01 03/16/2024 15:45:17 Pain in left foot 1265953930 97002 M79.672 deformity of left great toe, with [...] coming next week, will consult Dr. Tanner [phone] can have wound care see her for further advice- will be seen by wound on ontinu e APAP 650 mg q 6 hrs prn and tramadol 50 mg q 8 hrs prn for pain.she does not have hx of gout but will order uric acid d/t her still having pain despite abx use for 4 days. Blister of toe without infection 49026196 S90.425A continue warm soaks as aboveclean se left 2nd toe with soap and warm water, hydrogen peroxidedr essing changes to Alginate/D CD QD [id number] FRIEDA ANDERSON [address] [place] [address] 03/16/2024 09:19:11 03/19/2024 16:19:43 Pain in left foot 2688114828 16288 M79.672 baseline deformity due to hammer toeabx [...] infection. Mixed anxi ety and depressive disorder 165188031 F41.8 continue Escitalopr am Oxalate Tablet 30 mg dailyrepor ts although medication s have been helpful that she continues with difficultl y falling asleepand evening anxiety.in creased trazodone to 25 mg at HScontinue trazodone to 12.5 mg q12 prnmonitor for mood and behavorial changes. [id number] FRIEDA ANDERSON [address] [address] 03/17/2024 10:40:42 03/20/2024 08:44:03 Bleeding from nose 268391389 R04.0 minor nasal bleeding after blowing her nosewill discussed avoiding nose blowing, gently sniff insteadavo id picking nose or rubbing noseafrin nasal 1 spray BID prnsaline nasal spray BID Pain of to e of left foot 8640662096 95779 M79.675 reports pain to left great toe and second great toenailini tially flinching on exam when toe(s) were touched , states pain requesting toenail to be cut on 2ndshe provided clippers, I trimmed and file all toenail, she reports toes feeling much betterther e was no observatio n of facial grimacing, flinching or pulling away during procedure. [id number] Naomi Todd MD [address] [address] 03/30/2024 16:40:06 04/01/2024 10:48:39 Falls 400234285 R29.6 Continues to be a high fall risk.Getti ng OT for mobility and safety, primarily wheelchair level.Cont inue fall precaution s.Monitor for safety. Peripheral venous insufficiency 97368501 I87.2 No current sxs.Contin ue local care and elevation. Chronic di astolic heart failure 879309395 I50.32 Appears euvolemic. Continue furosemide 10 mg qdMonitor resp. status, fluid status, wts and labs. Chronic ob structive pulmonary disease 67284761 J43.8 Continues with no sxs.Contin ue Advair 250/50 BID and albuterol nebs q 6 hrs prnMonitor resp status. Type 2 jr betes mellitus 80539659 E11.21 Stable on no meds.Last HgA1C was 6.1 in 06/2023.Con tinue gabapentin 300 MG qhs and tramadol qhs scheduled and BID prn for neuropathy Monitor fingerstic ks prn and HgA1C q 3-6 months Paroxysmal atrial flutter 885148754 I48.92 Rate remains in good control on amiodarone 200 mg qdNo AC due to age and fall riskMonito r HR Restless legs 60897533 G 25.81 Continue ropinirole 2 mg BIDMonitor sxs. Mixed anxi ety and depressive disorder 113481157 F41.8 Mood sl. down due to pain not improving. Continue escitalopr am 30 mg qdMonitor mood.Consu lt psych prn Anemia of chronic disease 181901658 D63.8 Hgb remains stable.Con tinue FeSO4 325 mg qd with vitamin C 250 mg qd for absorption .Monitor labs Hyperlipidemia 07360268 E78.49 Continue atorvastat in 20 mg qdMonitor labs yearly Gastroesop hageal reflux disease 794519036 K21.9 No current sxs.Contin ue pantoprazo le 40 mg qdMonitor sxs Chronic ki dney disease 973519163 N18.2 Renal function remains stableCont inue to avoid nephrotoxi c meds as able.Monit or labs.Renal consult prn. Chronic back pain 987481 002 G89.29 Continue meds as above.Janice tor sxs. Bleeding from nose 93046 6005 R04.0 Resolved. Pain of to e of left foot 4587798713 64953 M79.675 No improvemen t since toenails cut on 03/17.Left 2nd toe still red and tender.Esteban leung have nursing set up appt with Dr. Lu Holder who has offices in [facility] and [place]. [place] # is [phone] local care until then. Using padding between toes to keep the pressure off.Monito r for signs of infection. Will schedule hs tramadol and keep 50 mg BID prn [id number] FRIEDA ANDERSON [facility]ARR[facility] STYLES [address] [place] [address] J[place] [address] 04/03/2024 11:03:23 04/28/2024 07:31:02 Cellulitis of foot 054043672 L03.119 left footsuspec gloria do to sx.recentl y treated for cellulitis left great toe with doxycyclin ewill start cephalexin 250 mg Q 6 hr for 5 days.will add probiotic BID for 7 daysmonito r for resolution . [id number] Naomi Todd MD DARRIN JENSEN [address] [place] [address] [place] [address] 04/13/2024 17:19:14 04/28/2024 08:01:43 Osteomyelitis 38964134 M86.272 Continue ertapenem 1 gm IV qd [...] prn.To be followed by wound care.Julio César d f/u with Dr. Lu Holder who has offices in [facility] and [place]. [place] # is Falls [id number] R29.6 Continues to be a high fall risk.Able to restart rehab after hospitaliz ation.Need s PT/OT for strengthen ing, balance, gait training, safety and function.C ontinue fall precaution s.Monitor for safety. Chronic di astolic heart failure 432545975 I50.32 Appears euvolemic. Continue furosemide 10 mg qdMonitor resp. status, fluid status, wts and labs. Chronic ob structive pulmonary disease 07247282 J43.8 Continues with no sxs.Contin ue Advair 250/50 BID and albuterol nebs q 6 hrs prnMonitor resp status. Type 2 jr betes mellitus 39840921 E11.21 Sugars inpt were all <100Last HgA1C was 6.1 in 06/2023.Con tinue gabapentin 300 MG qhs and other pain meds as above for neuropathy .Monitor fingerstic ks prn and HgA1C q 3-6 months Paroxysmal atrial flutter 748642363 I48.92 Rate remains in good control on amiodarone 200 mg qdNo AC due to age and fall riskMonito r HR Restless legs 76530598 G 25.81 Continue ropinirole 2 mg BIDMonitor sxs. Mixed anxi ety and depressive disorder 694177459 F41.8 Mood sl. down due to pain not improving. Continue escitalopr am 30 mg qd, trazadone 25 mg qhs and 12.5 mg BID prn.Monito r mood.Consu lt psych prn Anemia of chronic disease 777124021 D63.8 Hgb remains stable.Con tinue FeSO4 325 mg qd with vitamin C 250 mg qd for absorption .Monitor labs Hyperlipidemia 38358755 E78.49 Continue atorvastat in 20 mg qdMonitor labs yearly Gastroesop hageal reflux disease 640982145 K21.9 No current sxs.Contin ue pantoprazo le 40 mg qdMonitor sxs Chronic ki dney disease 957960614 N18.2 Renal function remains stableCont inue to avoid nephrotoxi c meds as able.Monit or labs.Renal consult prn. Chronic back pain 743799 002 G89.29 Continue meds as above.Janice tor sxs. Peripheral venous insufficiency 31636735 I87.2 No current sxs.Contin ue local care and elevation. [id number] FRIEDA ANDERSON JENSEN [address] [place] [address] [place] [address] 04/16/2024 08:54:52 04/28/2024 08:26:12 Osteomyelitis 56774137 M86.272 Continue ertapenem 1 gm IV qd [...] Holder who has offices in [facility] and [place]. [place] # is Falls [id number] R29.6 Continues to be a high fall risk.Able to restart rehab after hospitaliz ation.Need s PT/OT for strengthen ing, balance, gait training, safety and function.C ontinue fall precaution s.Monitor for safety. Chronic di astolic heart failure 521175625 I50.32 Appears euvolemic. Continue furosemide 10 mg qdMonitor resp. status, fluid status, wts and labs. Chronic ob structive pulmonary disease 58865598 J43.8 Continues with no sxs.Contin ue Advair 250/50 BID and albuterol nebs q 6 hrs prnMonitor resp status. Paroxysmal atrial flutter 192646924 I48.92 Rate remains in good control on amiodarone 200 mg qdNo AC due to age and fall riskMonito r HR Restless legs 90545051 G 25.81 Continue ropinirole 2 mg BIDMonitor sxs. Mixed anxi ety and depressive disorder 495147578 F41.8 Continue escitalopr am 30 mg qd, trazadone 25 mg qhs and 12.5 mg BID prn.Monito r mood.Consu lt psych prn Anemia of chronic disease 861215867 D63.8 Continue FeSO4 325 mg qd with vitamin C 250 mg qd for absorption .Monitor labs Hyperlipidemia 56272109 E78.49 Continue atorvastat in 20 mg qdMonitor labs yearly Gastroesop hageal reflux disease 452694537 K21.9 No current sxs.Contin ue pantoprazo le 40 mg qdMonitor sxs [id number] FRIEDA ANDERSON [address] [place] [address] rd [place] [address] 04/20/2024 10:04:50 04/28/2024 08:59:08 Osteomyelitis 38934278 M86.272 left foot 2nd toe with woundgrima [...] wound care.cindy nue with wound care treatment ordersShou ld f/u with Dr. Lu Holder who has offices in [facility] and [place]. [place] # is Chronic di astolic heart failure 935030292 I50.32 Appears euvolemic. Continue furosemide 10 mg qdMonitor resp. status, fluid status, wts and labs. Chronic ob structive pulmonary disease 33975564 J43.8 breathing easy and unlabored. Continue Advair 250/50 BID and albuterol nebs q 6 hrs prnMonitor resp status. Mixed anxi ety and depressive disorder 048214183 F41.8 her mood is normal reports eating and drinking ok.Continu e escitalopr am 30 mg qd, trazadone 25 mg qhs and 12.5 mg BID prn.Monito r mood.Consu lt psych prn [id number] Naomi Todd MD [address] [address] 04/23/2024 22:13:47 04/30/2024 18:09:13 Osteomyelitis 52244646 M86.272 Continue ertapenem 1 gm IV qd [...] Lu Holder's office again. Has offices in [facility] and [place]. [place] # is Falls [id number] R29.6 Is still a high fall risk.Needs PT/OT for strengthen ing, balance, gait training, safety and function.C ontinue fall precaution s.Monitor for safety. Chronic di astolic heart failure 636397807 I50.32 Remains euvolemic. Continue furosemide 10 mg qdMonitor resp. status, fluid status, wts and labs. Chronic ob structive pulmonary disease 87303834 J43.8 Continues with no sxs.Contin ue Advair 250/50 BID and albuterol nebs q 6 hrs prnMonitor resp status. Type 2 jr betes mellitus 47146231 E11.21 Sugars were all good, so not being checked regularly. Last HgA1C was 6.1 in 06/2023.Con tinue gabapentin 300 MG qhs and other pain meds as above for neuropathy .Monitor fingerstic ks prn and HgA1C q 3-6 months [id number] GOLDIE TREVIZO [address] [place] [address] 04/30/2024 08:46:54 05/02/2024 09:31:27 Osteomyelitis 69703270 M86.272 left foot 2nd toe with wound, [...] wound care.cindy nue with wound care treatment ordersstef neumann f/u with Dr. Lu Holder who has offices in [facility] and [place]. [place] # is Chronic di astolic heart failure 061688172 I50.32 Appears euvolemic. Continue furosemide 10 mg qdMonitor resp. status, fluid status, wts and labs. Chronic ob structive pulmonary disease 19320188 J43.8 breathing easy and unlabored. Continue Advair 250/50 BID and albuterol nebs q 6 hrs prnMonitor resp status. Mixed anxi ety and depressive disorder 911880554 F41.8 her mood is normal reports eating and drinking ok.Continu e escitalopr am 30 mg qd, trazadone 25 mg qhs and 12.5 mg BID prn.Monito r mood.Consu lt psych prn Gastroesop hageal reflux disease 564180790 K21.9 Reporting some nausea after eating, unsure if may be related to abx use. Discused with nsg., will monitor.Co ntinue pantoprazo le 40 mg qdMonitor sxs Restless legs 87314361 G 25.81 Continue requip, very helpful Headache 47654009 R51.9 history of, including migraines, for years.Most headaches in the forehead area and above eyes.APAP discussed, helps, would like it sched. if possible.D iscussed claudine nsg. who also feels it would be a good idea, so will sched. 650 mg tid.Monito r. [id number] FRIEDA ANDERSON [address] [place] [address] 05/05/2024 11:02:17 05/06/2024 15:43:52 Osteomyelitis 79719305 M86.272 left foot 2nd toe with wound, [...] wound care.cindy nue with wound care treatment [facility] nel f/u with Dr. Lu Holder who has offices in [facility], [place] and [place]. [place] # is Chronic di astolic heart failure 396698315 I50.32 Appears euvolemic. Continue furosemide 10 mg qdMonitor resp. status, fluid status, wts and labs. Chronic ob structive pulmonary disease 59487337 J43.8 breathing easy and unlabored. Continue Advair 250/50 BID and albuterol nebs q 6 hrs prnMonitor resp status. Mixed anxi ety and depressive disorder 721045793 F41.8 her mood is normal reports eating and drinking ok.Continu e escitalopr am 30 mg qd, trazadone 25 mg qhs and 12.5 mg BID prn.Monito r mood.Consu lt psych prn Gastroesop hageal reflux disease 128714444 K21.9 Continue pantoprazo le 40 mg qdMonitor sxs Restless legs 61658477 G 25.81 Continue requip, very helpful Headache 37524609 R51.9 history of, including migraines, for years.Most headaches in the forehead area and above eyes.APAP discussed, helps, would like it sched. if possible.Eloy mo. who also feels it would be a good idea, so will sched. 650 mg tid.Monito r. [id number] FRIEDA ANDERSON JENSEN [address] [place] [address] [place] [address] 05/07/2024 10:05:01 05/11/2024 16:11:56 Osteomyelitis 78777339 M86.272 Continue ertapenem 1 gm IV qd [...] wound care.cindy greene with wound care treatment ordersSh ld f/u with Dr. Lu Holedr who has offices in [facility], [place] and [place]. [place] # is Chronic di astolic heart failure 178124586 I50.32 Appears euvolemic. Continue furosemide 10 mg qdMonitor resp. status, fluid status, wts and labs. Chronic ob structive pulmonary disease 25165995 J43.8 breathing easy and unlabored. Continue Advair 250/50 BID and albuterol nebs q 6 hrs prnMonitor resp status. Mixed anxi ety and depressive disorder 006669808 F41.8 Continue escitalopr am 30 mg qd, trazadone 25 mg qhs and 12.5 mg BID prn.Monito r mood.Consu lt psych prn Gastroesop hageal reflux disease 390724959 K21.9 Continue pantoprazo le 40 mg qdMonitor sxs Restless legs 48734262 G 25.81 Continue requip, very helpful Headache 86818743 R51.9 continue tylenol 650 mg prn.encour age to increase oral hydration. [id number] FRIEDA ANDERSON DARRIN STYLES [address] [place] [address] [place] [address] 05/11/2024 16:30:45 05/12/2024 13:09:07 Osteomyelitis 24417904 M86.272 Has been tolerating IV therapy.Co ntinue [...] care.cindy nue with wound care treatment ordersShstef ld f/u with Dr. Lu Holder who has offices in [facility] and [place]. [place] # is Chronic di astolic heart failure 373638722 I50.32 euvolemic. Continue furosemide 10 mg qdMonitor resp. status, fluid status, wts and labs. Chronic ob structive pulmonary disease 11604092 J43.8 Continue Advair 250/50 BID and albuterol nebs q 6 hrs prnMonitor resp status. Mixed anxi ety and depressive disorder 585803892 F41.8 Continue escitalopr am 30 mg qd, trazadone 25 mg qhs and 12.5 mg BID prn.mood is good today. pleasant on exam.Monit or moodConsul t psych prn Gastroesop hageal reflux disease 584344282 K21.9 Continue pantoprazo le 40 mg qdMonitor sxs Restless legs 15293449 G 25.81 Continue requip 2 mg bid Headache 46865890 R51.9 continue tylenol 650 mg prn.encour age to increase oral hydration. [id number] FRIEDA ANDERSON DARRIN STYLES [address] [place] [address] [place] [address] 05/15/2024 10:17:08 05/19/2024 11:08:19 Osteomyelitis 98471428 M86.272 Has been tolerating IV therapy.Co ntinue ertapenem 1 gm IV qd until ontin ue probiotic BIDContinu e local care as ordered.Mo nitor labs (CBC, CMP, ESR, and CRP weekly until 05/18) and skin condition. Chronic di astolic heart failure 602097450 I50.32 euvolemic. Continue furosemide 10 mg qdMonitor resp. status, fluid status, wts and labs. Chronic ob structive pulmonary disease 45190254 J43.8 Continue Advair 250/50 BID and albuterol nebs q 6 hrs prnMonitor resp status. Mixed anxi ety and depressive disorder 617668242 F41.8 Continue escitalopr am 30 mg qd, trazadone 25 mg qhs and 12.5 mg BID prn.mood is good today. pleasant on exam.Monit or moodConsul t psych prn Gastroesop hageal reflux disease 963728000 K21.9 Continue pantoprazo le 40 mg qdthere has been no reported GI upset. Restless legs 39988712 G 25.81 Continue requip 2 mg bid Headache 13852105 R51.9 continue tylenol 650 mg prn.encour age to increase oral hydration. [id number] FRIEDA ANDERSON [address] [place] [address] 05/18/2024 08:44:49 05/19/2024 11:16:27 Osteomyelitis 40357327 M86.272 completed abxcontinu e probiotic BIDContinu e local care as ordered.f/ u appt. with ID later today Chronic di astolic heart failure 630794483 I50.32 stableCont inue furosemide 10 mg qdMonitor resp. status, fluid status, wts and labs. Chronic ob structive pulmonary disease 21393846 J43.8 breathing easy and unlabored. Continue Advair 250/50 BID and albuterol nebs q 6 hrs prnMonitor resp status. Mixed anxi ety and depressive disorder 892978496 F41.8 Continue escitalopr am 30 mg qd, trazadone 25 mg qhs and 12.5 mg BID prn.Monito r moodConsul t psych prn Gastroesop hageal reflux disease 394163360 K21.9 Continue pantoprazo le 40 mg qdthere has been no reported GI upset. Restless legs 30389489 G 25.81 Continue requip 2 mg bid Headache 97221626 R51.9 continue tylenol 650 mg prn.encour age to increase oral hydration. [id number] FRIEDA ANDERSON [address] [address] 05/25/2024 09:58:25 05/29/2024 09:27:36 Osteomyelitis 07753499 M86.272 completed abx Chronic di astolic heart failure 674916729 I50.32 euvolemicC ontinue furosemide 10 mg qdMonitor resp. status, fluid status, wts and labs. Chronic ob structive pulmonary disease 05536064 J43.8 breathing easy and unlabored. Continue Advair 250/50 BID and albuterol nebs q 6 hrs prnMonitor resp status. Mixed anxi ety and depressive disorder 552824616 F41.8 Continue escitalopr am 30 mg qd, trazadone 25 mg qhs and 12.5 mg BID prn.Monito r moodConsul t psych prn Gastroesop hageal reflux disease 900288878 K21.9 Continue pantoprazo le 40 mg qdthere has been no reported GI upset. Restless legs 71351308 G 25.81 Continue requip 2 mg bid Headache 70116160 R51.9 continue tylenol 650 mg prn.encour age to increase oral hydration. [id number] FRIEDA ANDERSON [address] [address] 06/01/2024 09:58:25 06/03/2024 09:34:34 Osteomyelitis 45907303 M86.272 completed abx Chronic di astolic heart failure 636624319 I50.32 euvolemicC ontinue furosemide 10 mg qdMonitor resp. status, fluid status, wts and labs. Chronic ob structive pulmonary disease 69138182 J43.8 breathing easy and unlabored. Continue Advair 250/50 BID and albuterol nebs q 6 hrs prnMonitor resp status. Mixed anxi ety and depressive disorder 044244728 F41.8 mood is stableCont inue escitalopr am 30 mg qd, trazadone 25 mg qhs and 12.5 mg BID prn.Monito r moodConsul t psych prn [id number] FRIEDA ANDERSON [address] [place] [address] 06/03/2024 11:42:59 06/09/2024 13:21:42 Osteomyelitis 13271620 M86.272 completed abx Chronic di astolic heart failure 432056426 I50.32 euvolemicC ontinue furosemide 10 mg qdMonitor resp. status, fluid status, wts and labs. Chronic ob structive pulmonary disease 79926555 J43.8 breathing easy and unlabored. Continue Advair 250/50 BID and albuterol nebs q 6 hrs prnMonitor resp status. Mixed anxi ety and depressive disorder 533630340 F41.8 mood is stableCont inue escitalopr am 30 mg qd, trazadone 25 mg qhs and 12.5 mg BID prn.Monito r moodConsul t psych prn [id number] FRIEDA ANDERSON [address] [place] [address] 06/09/2024 10:12:41 06/11/2024 14:30:47 Osteomyelitis 25103563 M86.272 06/09:clinic ally she is stableleft foot [...] dry and apply bacitracin with DCD BID. [id number] [facility] [address] [place] [address] [place] [address] 06/11/2024 11:46:23 06/15/2024 11:21:06 Osteomyelitis 09888422 M86.272 06/09:clinic ally she is stableleft foot [...] a second consult with ortho. appt 06/18/24. [id number] FRIEDA ANDERSON JENSEN [address] [place] [address] 5 06/15/2024 09:48:35 06/17/2024 10:12:04 Osteomyelitis 79560838 M86.272 06/09:clinic ally she is stableleft foot [...] and daughter Milagro, we discussed Dr. Peter diez for vascular consult, xray discussed; patient would like to proceed with a second consult with ortho. appt 06/18/24. Chronic di astolic heart failure 132928976 I50.32 euvolemicw eight stableCont inue furosemide 10 mg qdMonitor resp. status, fluid status, wts and labs. Chronic ob structive pulmonary disease 80512205 J43.8 breathing easy and unlabored. Continue Advair 250/50 BID and albuterol nebs q 6 hrs prnMonitor resp status. [id number] FRIEDA ANDERSON [address] [place] [address] 06/22/2024 08:47:12 06/24/2024 08:50:27 Osteomyelitis 89056579 M86.272 06/09:clinic ally she is stableleft foot [...] gaines. Mixed anxi ety and depressive disorder 603915181 F41.8 mood is stablerece nt room change transition to LTC, adjusting well. Most of the women she joins at activities reside on same unit, she is happy about this.Cindy nue escitalopr am 30 mg qd, trazadone 25 mg qhs and 12.5 mg BID prn.Monito r moodConsul t psych prn [id number] FRIEDA ANDERSON DARRIN STYLES [address] [place] [address] [place] [address] 06/29/2024 10:45:15 06/30/2024 13:34:02 Osteomyelitis 00362367 M86.272 06/09:clinic ally she is stableleft foot [...] ortho. Mixed anxi ety and depressive disorder 210315920 F41.8 mood is stablerece nt room change transition to LTC, adjusting well. Most of the women she joins at activities reside on same unit, she is happy about this.Cindy nue escitalopr am 30 mg qd, trazadone 25 mg qhs and 12.5 mg BID prn.Monito r moodConsul t psych prn Chronic di astolic heart failure 407301869 I50.32 euvolemicw eight stable noted 166-168Con tinue furosemide 10 mg qdMonitor resp. status, fluid status, wts and labs. [id number] FRIEDA ANDERSON DARRIN STYLES [address] [place] [address] [place] [address] 07/02/2024 11:07:08 07/03/2024 12:50:28 Mixed anxiety and depressive disorder 073345444 F41.8 mood is stable- she denies feeling hopeless, lonely or isolated.C ontinue escitalopr am 30 mg qd, trazadone 25 mg qhs and 12.5 mg BID prn.Monito r mood for negative changes.pt encouraged to continue to engage in social activities .Consult psych prn Chronic di astolic heart failure 312568373 I50.32 euvolemic- she denies any chest pain or shortness of breathweig ht stable noted 166-168Con tinue furosemide 10 mg qdMonitor resp. status, fluid status, wts and labs. Hammer toe 859039743 M20 .42 left foot 2 nd toe-recent ly completed IV antibiotic s ertapenem 1 gm daily for 6 weeks for osteomyeli tis. she continues to have discomfort . follow up xray results: no acute abnormalit y is seen in the left foot. [id number] FRIEDA ANDERSON [address] [address] 07/07/2024 14:44:04 07/08/2024 11:39:59 Hammer toe 201309812 M20.42 left foot 2 nd toe-recent ly completed IV antibiotic s ertapenem 1 gm daily for 6 weeks for osteomyeli tis. she continues to have discomfort . follow up xray results: no acute abnormalit y is seen in the left foot. Mixed anxi ety and depressive disorder 235801828 F41.8 mood is stable- she denies feeling hopeless, lonely or isolated.C ontinue escitalopr am 30 mg qd, trazadone 25 mg qhs and 12.5 mg BID prn.Monito r mood for negative changes.pt encouraged to continue to engage in social activities .followed by psych prn recently seen 07/06 no new recommenda tion. Chronic di astolic heart failure 637343646 I50.32 euvolemic- she denies any chest pain or shortness of breathweig ht stable noted 166-168Con tinue furosemide 10 mg qdMonitor resp. status, fluid status, wts and labs. [id number] FRIEDA ANDERSON [address] [address] 07/13/2024 08:31:31 07/14/2024 11:43:51 Hammer toe 899251948 M20.42 07/13:stabl e, no worsening sx notedleft foot 2 nd toe-recent ly completed IV antibiotic s ertapenem 1 gm daily for 6 weeks for osteomyeli tis. she continues to have discomfort . follow up xray results: no acute abnormalit y is seen in the left foot. Mixed anxi ety and depressive disorder 074351361 F41.8 07/13: StableCont inue escitalopr am 30 mg qd, trazadone 25 mg qhs and 12.5 mg BID prn.Monito r mood for negative changes.pt encouraged to continue to engage in social activities .followed by psych prn recently seen 07/06 no new recommenda tion. Chronic di astolic heart failure 388632359 I50.32 07/13: stable.euv olemic- she denies any chest pain or shortness of breathweig ht stable noted 166-168Con tinue furosemide 10 mg qdMonitor resp. status, fluid status, wts and labs. [id number] [facility] ANDERSON [facility] [address] [place] [address] 07/16/2024 10:15:02 07/21/2024 15:43:58 Hammer toe 954979988 M20.42 07/13:stabl e, no worsening sx notedleft foot 2 nd toe-recent ly completed IV antibiotic s ertapenem 1 gm daily for 6 weeks for osteomyeli tis. she continues to have discomfort . follow up xray results: no acute abnormalit y is seen in the left foot. Mixed anxi ety and depressive disorder 226573042 F41.8 Stable with delusional thoughts, she thinks staff is stealing her clothes.Co ntinue escitalopr am 30 mg qd, trazadone 25 mg qhs and 12.5 mg BID prn.Monito r mood for negative changes.pt encouraged to continue to engage in social activities .followed by psych prn recently seen 07/06 no new recommenda tion. Chronic di astolic heart failure 513462731 I50.32 stable.euv olemic- she denies any chest pain or shortness of breathweig ht stable noted 166-168Con tinue furosemide 10 mg qdMonitor resp. status, fluid status, wts and labs. [id number] FRIEDA ANDERSON [facility] [address] [place] [address] 07/20/2024 11:57:24 07/21/2024 16:08:03 Hammer toe 250616587 M20.42 stable, no worsening sx notedleft foot 2 nd toe-recent ly completed IV antibiotic s ertapenem 1 gm daily for 6 weeks for osteomyeli tis. she continues to have discomfort . follow up xray results: no acute abnormalit y is seen in the left foot. Mixed anxi ety and depressive disorder 472824457 F41.8 07/19: seen by rn psych will [...] recommenda tion. Chronic di astolic heart failure 263946929 I50.32 stable.euv olemic- she denies any chest pain or shortness of breathweig ht stable noted 166-168Con tinue furosemide 10 mg qdMonitor resp. status, fluid status, wts and labs. [id number] FRIEDA ANDERSON [address] [address] 07/23/2024 11:46:33 07/24/2024 11:44:07 Hammer toe 382802149 M20.42 stable, no worsening sx notedleft foot 2 nd toe-recent ly completed IV antibiotic s ertapenem 1 gm daily for 6 weeks for osteomyeli tis. she continues to have discomfort . follow up xray results: no acute abnormalit y is seen in the left foot. Mixed anxi ety and depressive disorder 506610610 F41.8 StableCont inue escitalopr am 30 mg qd, trazadone 25 mg qhs and 12.5 mg BID prn.Monito r mood for negative changes.pt encouraged to continue to engage in social activities .followed by psych prn recently seen 07/06 no new recommenda tion. Chronic di astolic heart failure 405534748 I50.32 stable.euv olemic- she denies any chest pain or shortness of breathweig ht stable noted 166-168Con tinue furosemide 10 mg qdMonitor resp. status, fluid status, wts and labs. Chronic ob structive pulmonary disease 66383294 J43.8 breathing easy and unlabored. Continue Advair 250/50 BID and albuterol nebs q 6 hrs prnMonitor resp status. [id number] [facility] ANDERSON [facility] [address] [place] [address] 09/10/2024 08:43:17 09/11/2024 12:05:09 Mixed anxiety and depressive disorder 544951963 F41.8 mild emotional distress, crying during assessment 2/ ble painContin ue escitalopr am 30 mg qd, trazadone 25 mg qhs and 12.5 mg BID prn.psych prn Chronic di astolic heart failure 246789147 I50.32 euvolemic- she denies any chest pain or shortness of breathweig ht stableCont inue furosemide 20 mg qdMonitor resp. status, fluid status, wts and labs. Chronic ob structive pulmonary disease 21382806 J43.8 breathing easy and unlabored. Continue Advair 250/50 BID and albuterol nebs q 6 hrs prnMonitor resp status. Neuropathy 424880720 G62 .9 see hpiBLE without sx of infectiono n gabapentin 300 mg at hs -she has been having increasing sx and weakness, requiring 2 people assist.dis cussed increasing gabapentin to BID and re eval in a few days for effect.hx diabetes/n ot on meds/ will get updated A1c. (06/2023 noted 6.1) Restless legs 69033373 G 25.81 Continue requip 2 mg bid [id number] FRIEDA ANDERSON [address] [address] 09/14/2024 10:23:24 09/15/2024 14:23:56 Neuropathy 444203509 G62.9 BLE without sx of infectiong abapentin 300 mg BIDshe has been having increasing sx and weakness, requiring 2 people assist.hx diabetes/n ot on meds/ will get updated A1c. (06/2023 noted 6.1) - labs ord for today not completed will re-order. Restless legs 81336348 G 25.81 Continue requip 2 mg bid [id number] FRIEDA ANDERSON [facility] [address] [place] [address] 10/02/2024 11:01:09 10/05/2024 13:31:21 Pain of left ankle joint [id number] 6555761 M25.572 localizedn on pitting left ankle swelling, no redness or warmthno foot discolorat ion, color is normal+CMS , pain with ROMplan for xray, labs with uric acid,apply ice 15 minutes to ankle TIDapply tyrone wrap compressio n dailywill schedule tylenol 650 mg TID and Motrin 400 mg BIDPT/OT eval and tx [id number] FRIEDA ANDERSON DARRIN [address] [address] 10/05/2024 11:01:37 10/06/2024 13:54:09 Pain of left ankle joint 3115420606 6443475 M25.572 localized/ swelling noted to have improved [...] BIDPT/OT eval and tx Contusion of thigh 99877 003 S70.10XA see hpi/left thightende r to touchmonit or as it healsdiscu ssed with nursingcon tinue scheduled tylenol [id number] Rex Bass MD [address] [place] [address] 11/25/2024 11:52:19 11/26/2024 15:26:27 Acute low back pain 005723681 M54.59 acute on chronic low back pain with point tenderness lumbar spinex ray to eval for concern vert comp fxx ray left hipchange tramadol 50 mg to q 6 prnmonitor need for ortho eval Chronic di astolic heart failure 804216133 I50.32 euvolemic- she denies any chest pain or shortness of breathweig ht stableCont inue furosemide 20 mg qdMonitor resp. status, fluid status, wts and labs. 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 G92.8 increased confusion at hospital is currently A and O x 3 with poor short term recall Asthenia 08335765 R53.1 therapy to re-evaluat e to determine baseline Cardiac en zymes outside reference range 115243812 R89.0 eval by cards now onasa 81 mg qdlipitor 40 mg qdmonitor sx Essential hypertension 82867674 I10 lasix 20 mg qd prn for weight gain associated with chfstarted on norvasc 2.5 mg qdmonitor bp and need to titrate Chronic di astolic heart failure 879897716 I50.32 Continue furosemide 20 mg qd prn weight gain Paroxysmal atrial flutter 217139477 I48.3 amiodarone 200 mg qdmonitor rate control Impaired cognition 66564 6002 R41.89 question of poor insight prior to above infectionb eing eval by psych for competency evalwill await recs [id number] MD DARRIN Roe [address] [place] [address] 01/06/2025 11:35:48 01/08/2025 08:30:51 Toxic metabolic encephalopathy 974610255 G92.8 see aboveincre ased confusion at hospital is currently A and O x 3 with poor short term recallnow invokedmon itor level of insight Impaired cognition 36500 6002 R41.89 appreciate psych eval and recswill invoke HCPmonitor level of insight as patient is alert and oriented to person place and time which she states easily Asthenia 17697902 R53.1 coordinate with therapymon itor fall risk Health Concerns Section Related Observation LastModified by Organization Detai ls LastModified Time None Recorded Concern Status LastModified by Organization Details LastModified Time None Recorded Advance Directives Directive Y: Payers Encounter Date Sequence Insurance Name Policy Number Policy Anders Covered Member ID Anders Member ID Guarantor Name 10/02/2024 1 [place] [employer] Shreya M Gravel [id number] Shreya Gravel 10/02/2024 2 [place] [id number] Shreya Gravel [id number] Shreya Gravel 10/05/2024 1 [place] [employer] Shreya M Gravel [id number] Shreya Gravel 10/05/2024 2 [place] [id number] Shreya Gravel [id number] Shreya Gravel 11/25/2024 1 [place] [employer] Shreya M Gravel [id number] Shreya Gravel 11/25/2024 2 [place] [id number] Shreya Gravel [id number] Shreya Gravel 12/14/2024 1 [place] Shreya M Gravel [id number] Shreya Gravel 12/14/2024 2 [place] [id number] Shreya Gravel [id number] Shreya Gravel 01/06/2025 1 [place] [employer] Shreya M Gravel [id number] Shreya Gravel 01/06/2025 2 [place] [id number] Shreya Gravel [id number] Shreya Gravel Notes Date Note Type Note Provider Name and Address Organization Details Recorded Time 10/02/2024 text/html This is a 89 yr [...] depression, anxiety, LLE cellulitis. FRIEDA ANDERSON [address] [facility], [address], [place], [address], [employer] 10/02/2024 11:23:10 10/05/2024 text/html This is a 89 yr old female LTC resident seen for acute rounding visit follow up left ankle swelling. She is at her baseline in [facility]. On exam she tells me that ankle [...] depression, anxiety, LLE cellulitis. FRIEDA ANDERSON [address] [facility], [address], [place], [address], [employer] 10/05/2024 16:22:00 11/25/2024 text/html Patient is a 89 yo female resident due for routine rounding also seen for acute rounding with complaint of chronic pain. PMH chf, a flutter, gerd, anemia, copd, chronic pain Rex Bass MD [address] [facility], [address], [place], [address], [employer] [facility] 11/25/2024 12:03:07 12/14/2024 text/html Patient is an 89 yo female LTC resident seen for readmission after acute transfer for altered mental status and elevated temp. While at hospital developed hypotension started on IVF and pressor support, then improved and required norvasc 2.5 mg. Noted UTI, dx with sepsis. Thrombocytopenia felt due to sepsis. Was eval by cards for elevated cardiac enzymes started on low dose asa and increased statin dose. Noted metabolic encephalopathy in underlying cognitive impairment Rex Bass MD [address] [facility], [address], [place], [address], [employer] [facility] 12/14/2024 10:00:50 01/06/2025 text/html Patient is an 89 yo female LTC resident seen for MD visit after recent readmission after acute transfer for altered mental status and elevated temp. While at hospital developed hypotension started on IVF and pressor support, then improved and required norvasc 2.5 mg. Noted UTI, dx with sepsis. Thrombocytopenia felt due to sepsis. Was eval by cards for elevated cardiac enzymes started on low dose asa and increased statin dose. Noted metabolic encephalopathy in underlying cognitive impairment. On return patient with increased confusion. Was eval by psych and deemed to lack insight to make own medical decisions. 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 However on continued conversation about family states she has 3 children aged 23, 25, 27. I had my youngest daughter when I was 19, shes about turn 24 this thanksgiving then goes on to say staff at facility keep rearranging her pictures and this is bothering her forcing her to move them back where they belong throughout day. Rex Bass MD [address] [facility], [address], [place], [address], [employer] [facility] 01/06/2025 11:42:10 OBGyn Episode No OBEpisode recorded.
--- OUTSIDE RECORDS SUMMARY | 2025-01-11 06:03 | XMS_ITS | Continuity of Care Document ---
Author Organization [facility], [facility] Address [address] [place] [address] Care Team Providers Care Membership Director Name Role Phone DARRIN STYLES 3RD FLOOR [...] and Address Organization Details Recorded Time Cystitis 80686504 Active 2023 FRIEDA ANDERSON [address], [address], [place], [address], [facility] 4 14:00:02 Falls 907621642 Active 2023 FRIEDA ANDERSON [address], [address], [place], [address], [address] 4 14:00:38 Pain of right wrist 6886917903067 00 Active 2023 FRIEDA ANDERSON [address], [address], [place], [address], [facility] 4 14:00:56 Peripheral venous insufficien cy 88920115 Active 2023 FRIEDA ANDERSON [address], [address], [place], [address], [address] 4 14:01:26 Chronic diastolic heart failure 290980377 Active 2023 FRIEDA ANDERSON [address], [place], [address], [facility] 4 14:01:46 Type 2 diabetes mellitus 53914670 Active 2023 FRIEDA ANDERSON [address], [address], [place], [address], [facility] 4 14:01:55 Paroxysmal atrial flutter 843757948 Active 2023 FRIEDA ANDERSON [address], [address], [place], [address], [facility] 4 14:02:21 Restless legs 08937180 Active 2023 FRIEDA ANDERSON [address], [place], [address], [facility] 4 14:02:38 Chronic obstructive pulmonary disease 25290364 Active 2023 FRIEDA ANDERSON [address], [place], [address], [facility] 4 14:02:49 Anemia of chronic disease 043642223 Active 2023 FRIEDA ANDERSON [address], [place], [address], [facility] 4 14:02:59 Mixed anxiety and depressive disorder 264554499 Active 2023 FRIEDA ANDERSON [address], [place], [address], [facility] 4 14:17:43 Chronic kidney disease 058069853 Active 2023 FRIEDA ANDERSON [address], [address], [place], [address], [facility] 4 14:19:41 Hyperlipide nena 12915989 Active 2023 FRIEDA ANDERSON [address], [address], [place], [address], [facility] 4 14:26:52 Gastroesoph ageal reflux disease 979967589 Active 2023 FRIEDA ANDERSON [address] [facility] [address], [address], [place], [address], [facility] 4 14:27:49 Chronic back pain 361624662 Active 2023 MP ANDERSONP [address], [place], [address], [facility] 4 14:40:47 Vitamin D deficiency 32395499 Active 2023 MP ANDERSONP [address], [address], [place], [address], [facility] 4 19:41:46 Bradycardia 04473380 Active 2023 MP ANDERSONP [address], [address], [place], [address], [facility] 4 19:44:32 Asthenia 38103082 Active 2023 MP ANDERSONP [address], [address], [place], [address], [facility] 4 19:53:05 Bleeding from nose 050887440 Active 2023 MP ANDERSONP [address], [address], [place], [address], [facility] 4 15:36:07 Osteomyelit is 81714549 Active 2023 Naomi Todd MD [address], [address], [place], [address], [facility] 4 17:53:51 Headache 98654234 Active 2023 WISAM SILVA NP [address], [address], [place], [address], [facility] 4 09:49:14 Essential hypertensio n 94638142 Active 2024 Rex Bass MD [address], [address], [place], [address], [facility] 5 09:46:16 Problem Notes None recorded. Medical Equipment None Reported. Allergies Allergen ID Allergen Name Allergen Category Reaction Reaction Severity Criticality Documentation Date Start Date Code Code System Note Provider Name and Address Organization Details Recorded Time 01918 lisinopri l medicatio n Not available Not available Not available 10/22/2023 15508 RxNorm Not Available Not Available Not Available [...] Available Not Available Not Avai lable Vitals None Recorded Social History Question Answer Notes LastModified by Organizat ion Details LastModified Time Tobacco Smoking Status Former Smoker quit 30 yrs ago FRIEDA ANDERSON [address], [facility] [address], [place], [address], [facility] 10/24/2023 14:39:11 Do You Have An Advance [...] not available 10/24/2023 [facility], Had Been Living At [facility] Information not available 04/13/2024 Legal Guardian? No Informati on not available 10/24/2023 Do You Have A Medical Power Of Vp Training? Yes Information not available 10/24/2023 What Was [...] Recorded Time Tdap 2 completed [facility] 12/27/2023 11:11:29 Pneumococcal conjugate PCV 13 7 completed [facility] 12/27/2023 11:11:41 Influenza, adjuvanted, quadrivalent, PF 3 completed [facility] 12/27/2023 11:11:59 COVID-19, mRNA, LNP-S, bivalent, PF, 30 mcg/0.3 mL dose 1 completed [facility] 12/27/2023 11:12:12 COVID-19, mRNA, LNP-S, bivalent, PF, 30 mcg/0.3 mL dose 1 completed [facility] 12/27/2023 11:12:20 COVID-19, mRNA, LNP-S, bivalent, PF, 30 mcg/0.3 mL dose 1 completed [facility] 12/27/2023 11:12:29 COVID-19, mRNA, LNP-S, bivalent, PF, 30 mcg/0.3 mL dose 2 completed [facility] 12/27/2023 11:12:48 Past Encounters Encounter ID Performer Location Encounter Start Date Encounter Closed Date Diagnosis/Indication Diagnosis SNOMED-CT Code Diagnosis ICD10 Code Diagnosis Note [id number] MD DARRIN Roe [address] [place] [address] [place] [address] 12/14/2024 09:37:44 12/16/2024 09:41:40 Sepsis 65192866 A41.89 see HPInow to complete course ofcefuroxi me 500 mg bidadd probiotic bidmonitor for recurrent infection Toxic meta bolic encephalopathy 669447911 G92.8 increased confusion at hospital is currently A and O x 3 with poor short term recall Asthenia 56539361 R53.1 therapy to re-evaluat e to determine baseline Cardiac en zymes outside reference range 930348193 R89.0 eval by cards now onasa 81 mg qdlipitor 40 mg qdmonitor sx Essential hypertension 93830964 I10 lasix 20 mg qd prn for weight gain associated with chfstarted on norvasc 2.5 mg qdmonitor bp and need to titrate Chronic di astolic heart failure 818178526 I50.32 Continue furosemide 20 mg qd prn weight gain Paroxysmal atrial flutter 496590542 I48.3 amiodarone 200 mg qdmonitor rate control Impaired cognition 30007 6002 R41.89 question of poor insight prior to above infectionb eing eval by psych for competency evalwill await recs [id number] MD DARRIN Roe [address] [place] [address] [place] [address] 01/06/2025 11:35:48 01/08/2025 08:30:51 Toxic metabolic encephalopathy 646989606 G92.8 see aboveincre ased confusion at hospital is currently A and O x 3 with poor short term recallnow invokedmon itor level of insight Impaired cognition 58720 6002 R41.89 appreciate psych eval and recswill invoke HCPmonitor level of insight as patient is alert and oriented to person place and time which she states easily Asthenia 37603338 R53.1 coordinate with therapymon itor fall risk Health Concerns Section Related Observation LastModified by Organization Detai ls LastModified Time None Recorded Concern Status LastModified by Organization Details LastModified Time None Recorded Payers Encounter Date Sequence Insurance Name Policy Number Policy Anders Covered Member ID Anders Member ID Guarantor Name 01/06/2025 1 [place] [employer] Shreya M Gravel [id number] Shreya Gravel 01/06/2025 2 [place] [id number] Shreya Gravel [id number] Shreya Gravel Notes Date Note Type Note Provider Name and Address Organization Details Recorded Time 01/06/2025 text/html Patient is an 89 yo [...] belong throughout day. Rex Bass MD [address], [address], [place], [address], [facility] 01/06/2025 11:42:10 OBGyn Episode No OBEpisode recorded.
--- OUTSIDE RECORDS SUMMARY | 2025-01-11 06:03 | XMS_ITS | Data Portability ---
Author Organization [place] - [facility] Address [address] [place] [address] Care Team Providers Care Fingerprint Technician Name Role Phone ABAD ISLAS Primary Care Provider [facility] OTHER [phone] Assessment Encounter Date Assessment Date Assessment LastModified [...] after care of this patient according to [facility]'s infection prevention protocols. Not available 08/31/2021 [...] after care of this patient according to [facility]'s infection prevention protocols. Not available 09/02/2021 22:38:16 03/21/2022 03/21/2022 Overview/History : 86 yo F established with new to this provider presents for evaluation of wounds to both lower legs s/p fall in February. The left wound failed to close with sutures and she developed an infection as well. She is followed by [facility] for wound care of both legs. She has developed burning pain with and redness to both wounds worse on the left. [facility] is coming in every two days to [...] left extremity that is consistent with cellulitis. [facility] is in every 2 days to [...] after care of this patient according to [facility]'s infection prevention protocols. [email or web address] Not available 03/21/2022 20:18:44 Plan of Treatment Reminders Order Date Submit Date Provider Last Modified By Organization Details Last Modified Time Details Appointments None recorded. Lab rapid SARS CoV + SARS CoV 2 Ag, QL IA, respiratory specimen 2020 021 escobar 3 [facility], [address] [place] [address], [address], 11:23:08 Referral None recorded. Procedures None recorded. Surgeries None recorded. Imaging US, duplex, venous, extremity, limited - swelling of left lower extremity, s/p fall and wound to left lower extremity r/o DVTpt is homebound,d oes not drive 2021 022 MAGDY [facility] ([facility] [address] [place] [address], [address], 2 18:21:15 XR, foot, 3 or more view - r/o right 2nd toe fracture. call pt @ 2021 022 [facility] ([facility]), [address] [place], [address], 2 10:17:17 XR, chest, 2 view 2020 021 [email or web address] [facility] ([facility] [address] [place], [address], 1 16:59:08 Medication Orders cephalexin 500 mg capsule 2021 022 [email or web address] [id number], [address] [place], [address], 16:20:51 cephalexin 500 mg capsule 2021 022 MAGDY [id number], [address] [place], [address], 16:21:00 cephalexin 500 mg capsule 2021 022 [email or web address] [facility] #[id number], [address] [place], [address], 15:51:19 azithromyci n 250 mg tablet 2020 021 [email or web address] 0 [facility][id number], [address] [place], [address], 13:35:29 Patient TargetsNo targets recorded. Patient Instructions Encounter Date Encounter Id Patient Instructions Last Modified By Organization Details Last Modified Time 08/31/2021 [id number] What is coronavi ethel disease 2019? Coronavirus disease 2019 (COVID-19) is a respiratory illness that can spread from person to person. The virus that causes COVID-19 is a novel coronavirus that was first identified during an investigation into an outbreak in [facility]. Can I get COVID-19? Yes. COVID-19 [...] least 20 seconds. Use an alcohol-based hand casino floor person that contains at least 60% alcohol if [...] (EUA). The EUA is supported by the [place] of Health and Human Service? s (HHS? [...] or worsen. Not available 08/31/2021 20:06:42 09/02/2021 [id number] Thank you for yo ur visit with [facility] today. We cannot always find the exact [...] in your condition between 8am-10pm, please call [facility] at [phone] to help navigate your care. Not available 09/02/2021 22:29:43 12/08/2021 [id number] Thank you for yo ur visit with [facility] today. We cannot always find the exact [...] in your condition between 8am-10pm, please call [facility] at [phone] to help navigate your care. Thank you for your visit with [facility] today. You do not appear to have [...] in your condition between 8am-10pm, please call [facility] at [phone] to help navigate your care. [email or web address] Not available 12/08/2021 17:46:11 03/21/2022 [id number] Thank you for yo ur visit with [facility] today. You may have had laboratory tests [...] in your condition between 8am-10pm, please call [facility] at [phone] to help navigate your care. [email or web address] Not available 03/21/2022 17:19:04 Reason for Referral None Reported. Results Created Date Observation Date Name Description Value Unit Range Abnormal Flag Note LastModifiedBy Organization Detail LastModifiedTime 08/31/20 21 08/31/2021 rapid SARS CoV + SARS CoV 2 Ag, QL IA, respi rator y speci men Covid-19 (ref: neg) positi ve Not Available [facility] [address] [place], [address], 08/31/2021 11:22:25 08/31/20 21 08/31/2021 rapid SARS CoV + SARS CoV 2 Ag, QL IA, respi rator y speci men Control Visual ized/V alid Not Available [facility] [address] [place], [address], 08/31/2021 11:22:25 08/31/20 21 08/31/2021 rapid SARS CoV + SARS CoV 2 Ag, QL IA, respi rator y speci men Location [facility], [facility] missael s , [address] [place] [address], [id number] Not Available [facility] [address] [place], [address], 08/31/2021 11:22:25 08/31/20 21 08/31/2021 rapid SARS CoV + SARS CoV 2 Ag, QL IA, respi rator y speci men Race & Ethnicity Other White Not Available [facility] [address] [place], [address], 08/31/2021 11:22:25 08/31/20 21 08/31/2021 rapid SARS CoV + SARS CoV 2 Ag, QL IA, respi rator y speci men Language Englis h Not Available [facility] [address], [place], [address], 08/31/2021 11:22:25 09/01/20 21 XR, chest , 2 view No observ ation record ed. [email or web address] ([facility]) [address] [facility], [place], [address], 09/02/2021 18:27:35 03/02/20 22 03/02/2022 venou s [...] MIRAMONTES M.D. 022 6:10:3 5 PM EDT. [email or web address] [facility] [address] [facility] [address], [place], [address], 03/04/2022 22:42:26 Result Notes None recorded. Problems Name Problem SNOMED Code Status Onset Date Resolution Date Notes Provider Name and Address Organization Details Recorded Time Hypertensive disorder 29536994 Active 2018 [place] [facility] 17:08:43 Hypertensive disorder 03954052 Active 2019 [place] [facility] 17:08:43 Problem Notes None recorded. Procedures Surgical History Date Name Laterality Status Provider Name and Address Organization Details Recorded Time Medication Review completed Shania Marrero NP [address], [place], [address], [place] [facility] 10/22/2020 12:08:57 021 IV Start Procedure - completed JOSSE SALGADO NP [address] [place], [address], [place] [facility] 10/20/2020 12:39:22 020 Venipuncture - completed TAE SESAY [address], [place], [address], [place] [facility] 10/27/2019 23:49:05 cholecystectomy completed Carly DUBON NP [address] [place], [address], [place] [facility] 08/31/2021 11:12:48 hysterectomy completed Carly MCKEON NP [address] [place], [address], [place] [facility] 08/31/2021 11:12:58 Cabg vein four completed Carly MCKEON NP [address], [place], [address], [place] [facility] 08/31/2021 11:13:24 Imaging Results Imaging Date Name Status LastModified by Organfredrick fontaine Details LastModified Time 09/01/2021 XR, chest, 2 view completed [email or web address] [facility] Corporate Office ([facility]) [address] [place] [address], [place], [address], 09/02/2021 18:27:35 03/02/2022 venous doppler extrem/sanchez completed [email or web address] [facility] [address] [facility] [address], [place], [address], 03/04/2022 22:42:26 Procedure Notes None recorded. Medical [...] /min 130 mm[Hg] 68 mm[Hg] Not Available On license of [facility] 1 11:02:38 Date Recorded Oxygen saturation Oxygen saturation in Arterial blood by Pulse oximetry Respiratory rate Body temperature Heart rate Systolic blood pressure Diastolic blood pressure Provider Name and Address Organization Details Last Updated DateTime 1 96 % 96 % 22 /min 98.6 [degF] 68 /min 124 mm[Hg] 78 mm[Hg] Not Available On license of [facility] 1 16:52:24 Date Recorded Heart rate Oxygen [...] 116 mm[Hg] 68 mm[Hg] Not Available [facility] 2 15:55:18 Social History Question Answer Notes LastModified by Organizat ion Details LastModified Time Tobacco Smoking Status Former Smoker JOSSE SALGADO, [employer] [address], [place], [address], [place] [facility] 12/26/2019 13:07:15 Do You Have An Advance Directive? Yes Information not available 12/26/2019 What Is Your Level Of Alcohol Consumption? None Information not available 08/31/2021 What Is Your Code Status? Full Code Information not available 12/26/2019 Drugs Abused None Information not available 10/17/2020 How Many Days In The Past Year Have You Had A Heavy Drinking Consumption (4+ Female, 5+ Male)? 0 [email or web address] Information no t available 10/17/2020 Within The Past 12 Months, Has It Happened That The Food You Bought Just Didn't Last And You Didn't Have Money To Get More. No [email or web address] Information not available 10/17/2020 Within The Past 12 Months, Have You Worried That Your Food Would Run Out Before You Got Money To Buy More. No [email or web address] Information not available 10/17/2020 Fall Risk: Do You Feel Unsteady When Standing Or Walking? Yes Information not available 10/17/2020 We Know That How And When People Interact With Friends And Family Can Be Very Different From Person To Person. How Often Do You Have The Opportunity To See Or Talk To People That You Care About And Feel Close To? (Ex: Talking To Friends On The Phone Or Visiting Friends Or Family Or Going To Jain Or Club Meetings) 1 Or 2 Times Per Week [email or web address] Information not available 10/17/2020 Excessive Alcohol Or Drug Use No Information not available 10/17/2020 We Know From Many Of Our Patients That Covering All Of Their Costs Can Be Difficult At Times. This Can Cause Stress And Impact Health. In The Past Year, Have You Been Unable To Get Any Of The Following When It Was Really Needed? No Information not available 10/17/2020 What Is Your Housing Situation Today? I Have Housing Information not available 10/17/2020 Would You Like Help Connecting To Resources? None [email or web address] Information not available 10/17/2020 Marital Status [email or web address] Informatio n not available 10/17/2020 What Was The Date Of Your Most Recent Tobacco Screening? 02/23/2019 [email or web address] Information not available 01/20/2020 Do You Use Any Illicit Or Recreational Drugs? No Information not available 08/31/2021 Has Tobacco Cessation Counseling Been Provided? No [email or web address] Information not available 01/20/2020 How Many Years [...] N Cancer N Stroke N Dementia N Hypothyroidism N Asthma Y COPD Y Depression Y High Cholesterol Y Rheumatoid Arthritis N Pulmonary Embolism N Hypertension Y Osteoporosis Y A-fib N Kidney Disease N Gynecological HistoryNo gynecological history recorded. Obstetrics History GPAL:G 0 P 0 0 0 0 Past Encounters Encounter ID Performer Location Encounter Start Date Encounter Closed Date Diagnosis/Indication Diagnosis SNOMED-CT Code Diagnosis ICD10 Code Diagnosis Note [id number] [facility] [address] [place] [address], [place] [address] 02/07/2019 08:54:53 02/10/2019 15:05:36 Swelling of lower leg 510220486 R22.40 [facility] 84856247 R06.2 resolved Chronic ob structive pulmonary disease 95765487 J44.9 Congestive heart failure 86309117 I50.9 [id number] Balbina Cortés [facility] [address] [place] [address] 02/19/2019 14:54:40 02/24/2019 12:56:57 Edema of lower extremity 693717752 R60.0 [id number] Balbina Cortés [facility] [address] [facility] [place] [address] 02/23/2019 16:49:50 02/24/2019 13:23:51 Low back strain 215024268 S39.012A [id number] Balbina Cortés [facility] [address] [place] [address] 10/27/2019 14:16:46 10/28/2019 10:09:40 Edema of lower extremity 529014939 R60.0 Pain in ri ght lower limb 513505156 M79.604 Tear of skin 946677253 T 14.8XXA [id number] Balbina Cortés [facility] [address] [place] [address] 12/26/2019 12:57:09 12/29/2019 00:46:41 Facial laceration 082375166 S01.81XA Fall on sa me level from slipping, tripping or stumbling 922987641 W01.0XXA [id number] Balbina Cortés [facility] [address] [facility] [place] [address] 01/16/2020 15:03:33 01/20/2020 13:32:20 Low back strain 428906404 S39.012A Low back pain 698669763 M54.5 [id number] Balbina Cortés [facility] [address] [facility] [place] [address] 08/20/2020 11:06:15 08/23/2020 10:14:53 Tear of skin 208371967 T14.8XXA [id number] Balbina Cortés [facility] [address] [facility] [place] [address] 08/22/2020 12:46:45 08/22/2020 13:06:28 [id number] JENSEN ZARCO NP [facility] [address] [facility] [place] [address] 08/22/2020 15:02:13 08/22/2020 21:37:57 Open wound of lower leg 905191370 S81.802A [id number] TAE KNOWLES [facility] [address] [facility] [address] 10/17/2020 11:49:50 10/18/2020 11:22:26 Cellulitis of lower limb 014029965 L03.119 Swelling of lower leg 44 0372643 R22.40 [id number] KATHI BRIGGS NP [facility] [address] [facility] [address] 10/20/2020 11:54:28 10/21/2020 12:53:21 Cellulitis of lower limb 085721105 L03.119 Exposure t o communicable disease 783218749 Z20.828 [id number] Shania Marrero NP [facility] [address] [facility] [place] [address] 10/22/2020 11:14:08 10/24/2020 17:43:41 Wound cellulitis 739050259 L03.90 [id number] JENSEN ZARCO NP [facility] [address] [facility] [address] 02/02/2021 14:10:24 02/03/2021 13:29:29 Cellulitis of left lower limb 1880722359 2682338 L03.116 [id number] TAE KNOWLES [facility] [address] [facility] [address] 02/06/2021 14:32:51 02/07/2021 12:44:05 Cellulitis of lower leg 658280198 L03.119 Suspected deep vein thrombosis 005475582 Z13.6 [id number] Mayra Lee NP [facility] [address] [facility] [place] [address] 04/03/2021 20:43:28 04/05/2021 23:52:12 Dizziness present 178304725 R42 Overview/H istory: Patient is an 85 [...] patient records* p atient records on the [employer] r eviewed records with the PCP}}. This informatio n was pertinent in my medical decision making today. Low back pain 660088045 M54.5 Unintentio nal weight gain 4417546415 76905 R63.5 [id number] Pranav Conner [facility] [address] [place] [address] 08/31/2021 10:49:08 09/06/2021 16:59:08 COVID-19 546645551 U07.1 + rapid Cough 15125996 R05.9 dry cough Chronic ob structive pulmonary disease 02947975 J44.9 pending [facility] enrollment , Rx to be sent by TAE Quinones for z-geno and proair 90 mcg 2 puffs every 4-6 hours as needed for fine scattered bilateral wheezepati ent declines any current Rx for GWEN Lethargy 612404879 R53.8 3 Exposure t o SARS-CoV-2 934660755 Z20.822 reports not leaving her apartment, has friend who gets mail for her, however she did go to [facility] ED on 08/27 for abdominal pain, nausea, diarrhea.s he denies any known exposure but high risk in ED [id number] Carly MCKEON NP [facility] [address] [place] [address] 09/02/2021 16:39:33 09/06/2021 11:49:43 COVID-19 031017834 U07.1 re-evaluat ion to monitor O2 which is 96 RAcurrentl y on day 3 of zpak Chronic ob structive pulmonary disease 88869967 J44.9 pt reports compliance with inhalers [id number] Compa Harrell MD [facility] [address] [place] [address] 12/08/2021 17:45:03 12/09/2021 10:11:45 Pain of toe of right foot 7466297662 04275 M79.674 Proper Personal Protective Equipment (PPE), including [...] after care of this patient according to [facility]'s infection prevention protocols. Overview/H istory: 86 Exam: [...] necrotic appearance , fevers, chest pain, sob. [id number] TAE Blancas [facility] [address] [place] [address] 02/28/2022 13:02:35 03/02/2022 12:14:09 Suspected soft tissue infection 9386672839 47552 Z20.818 Localized swelling of left lower leg 3972357406 9294022 R22.42 [id number] Yue Molina NP [facility] [address] [place] [address] 03/21/2022 15:37:31 03/24/2022 15:14:02 Wound cellulitis 357813951 L03.90 Health Concerns Section Related Observation LastModified by Organization Detai ls LastModified Time None Recorded Concern Status LastModified by Organization Details LastModified Time None Recorded Advance Directives Directive Y: Payers Encounter Date Sequence Insurance Name Policy Number Policy Anders Covered Member ID Anders Member ID Guarantor Name 08/31/2021 1 [place] [employer] Shreya M Gravel [id number] Shreya Gravel 08/31/2021 2 [place] [employer] [id number] Shreya Gravel [id number] Shreya Gravel 09/02/2021 1 [place] [employer]ATIONAL [employer]MENT [employer] Shreya M Gravel [id number] Shreya Gravel 09/02/2021 2 [facility] [id number] Shreya Gravel [id number] Shreya Gravel 12/08/2021 1 [place] [employer] Shreya M Gravel [id number] Shreya Gravel 12/08/2021 2 [place] [id number] Shreya Gravel [id number] Shreya Gravel 02/28/2022 1 [place] [employer] Shreya M Gravel [id number] Shreya Gravel 02/28/2022 2 [place] [id number] Shreya Gravel [id number] Shreya Gravel 03/21/2022 1 [place]ATIONAL [facility] Shreya M Gravel [id number] Shreya Gravel 03/21/2022 2 [facility]: ([place]MNITY) [id number] Shreya Gravel [id number] Shreya Gravel Notes Date Note Type [...] contacts. On 08/27/2021 she reports going to [facility] ED for evaluation of abdominal pain, nausea, diarrhea, and was d/c home same day with Rx for zofran in which she did not hand picker. She reports 2 nights ago waking up in the morning with diarrhea. She denies any fevers, shortness of breath, difficulty breathing, chest pain, palpitations, dizziness, unilateral weakness, change in mental status, vision, speech, taste and or smell. Carly MCKEON, GOLDIE [address] [place] [address], [address], [place] [facility] 08/31/2021 20:14:52 09/02/2021 text/html [...] status. Carly MCKEON NP [address], [place], [address], [place] [facility] 09/02/2021 22:38:32 12/08/2021 text/html [...] no CP TAE Rosales [address], [place], [address], [place] [facility] 12/08/2021 18:26:26 02/28/2022 text/html [...] got home and had infection [facility] was admitted for a week, then went to [facility] for rehab. 02/08/2022 home. TAE Blancas [address], [place], [address], [place] [facility] 03/08/2022 20:04:51 03/21/2022 text/html 86 yo F with wounds to the left s/p fall in early February. She had sutures in the left leg that became infected and a smaller wound to the [place] of the right lower leg. [facility] is following her for her wounds and are in every 2 days for assessment and dressing changes. Today she states she has burning to her legs and redness to of both legs.F/u with PCP in 03/30/22. Yue Molina NP [address], [place], [address], [place] [facility] 03/21/2022 20:19:51 OBGyn Episode No OBEpisode recorded.
[2025-01-11 06:51] LABS: Basophils Percent Auto 0.4 % (0-2); Eosinophils Absolute Auto 0.2 X10*3/uL (0.0-0.4); Eosinophils Percent Auto 4.4 % (0-4); Hematocrit 35.6 % (37.0-47.0); Imm Gran Abs Auto 0.02 X10*3/uL (0.00-0.03); Imm Gran Pct Auto 0.4 % (0.0-0.4); Lymphocytes Absolute Auto 1.6 X10*3/uL (1.2-4.9); Lymphocytes Percent Auto 31.6 % (20-40); Mean Corpuscular HGB Conc 33.7 g/dl (31.0-35.0); Mean Corpuscular Hemoglobin 33.3 pg (27.0-33.0); Mean Corpuscular Volume 98.9 fL (80.0-98.0); Mean Platelet Volume 10.3 fL (9.4-12.3); Monocytes Absolute Auto 0.5 X10*3/uL (0.1-1.2); Monocytes Percent Auto 9.6 % (2-11); Neutrophils Absolute Auto 2.7 x10*3/uL (2.0-8.3); Neutrophils Percent Auto 53.6 % (45-73); Platelet Count 166 X10*3/uL (160-400); Red Cell Distribution Width 14.3 % (11.0-16.0)
[2025-01-11 06:52] LABS: Anion Gap 11 (12-20); Blood Urea Nitrogen 16 mg/dL (9-16); Calcium 9.1 mg/dL (8.4-10.2); Carbon Dioxide 22 mmol/L (22-29); Chloride 110 mmol/L (96-108); Estimated Glomerular Filt Rate > 60; Glucose Random 86 mg/dL (60-115); Potassium 3.9 mmol/L (3.3-5.1); Sodium 139 mmol/L (135-145)
== END 2025-01-11 05:50 | disposition home or self-care (01) ==
LOC: HO.MMNH3L 05:49
PROVIDERS: Visit Provider Nurse Practitioner
DX: I48.92 Unspecified atrial flutter (principal)
CPT/HCPCS: 36415; 80048; 85025

== ENCOUNTER 2025-02-15 06:15 | Outpatient (REF) | payer MEDICARE, MEDICAID, SELFPAY ==
[2025-02-15 06:09] LABS: MANUAL DIFF FLAG NO
--- OUTSIDE RECORDS SUMMARY | 2025-02-15 06:22 | XMS_ITS ---
Author Organization [facility] Address [address] [place] [address] Care Team Providers Care Knockout Man Name Role Phone Shelia DIAZ, Rex Primary Care Provider Unavailab Lu Dickson Unavailable [phone] REASON FOR VISIT Needs call back from MD Encounters Encounter Location Date Provider Diagnosis [facility] [address] [place] [address] 06/09/2024 Lu Black Plan Of Treatment No Information Progress Notes * Shreya BAUTISTADOB: [birth year] (88 yo F)Acc No.[id number]:06/09/2024 Patient:?Shreya Bautista :1935???Age:88 Y???Sex:Female Address:[address], [place], [address] * true * Date:? Generated for Printi ree/Cory/eTransmitting on:?02/15/2025 06:22 AM EDT
--- OUTSIDE RECORDS SUMMARY | 2025-02-15 06:22 | XMS_ITS | Clinical Summary ---
Author Organization [facility] Address [address] [place] [address] Phone Care Team Providers Care Stake Setter Name Role Phone Rex Bass MD Primary Care Provider [phone] Allergies Active Allergy Reactions Criticality Noted Date [...] Problem Noted Date Diagnosed Date Atrial flutter ([facility] V24, [facility] V28) 2021 Overview (08/28/2024): Last Assessment & Plan: In [...] office or seek medical attention if necessary. Surgical History Surgery Date Site/Laterality Comments HYSTERECTOMY [...] back pain Chronic obstructive pulmonar y disease (CMS/HCC V24, CMS/HCC V28) DX:Chronic obstructive pulm onary disease ([facility]) Chronic pain DX:Chronic pain Compression fracture of L1 l umbar vertebra ([facility] V24, [facility] V28) DX:Compression fra cture of L1 lumbar vertebra ([facility]); COMMENT: and t12 vertebra Degeneration macular DX:Degenera tion macular Depression DX:Depression Diabetes type 2, controlled ([facility] [place], [facility] [place]) DX:Diabetes type 2, controll ed ([facility]) Diverticulitis DX:Diverticuliti s Elevated LFTs DX:Elevated LFTs [...] 2 obesi ty Osteoporosis DX:Osteoporosis Primary hyperparathyroidism ([facility] [place]) DX:Primary hyperparathyroidi sm ([facility]) Recurrent falls DX:Recurrent fal ls Restless legs [...] 05/10/2022 12:38 PM EDT Plan of Treatment Health Maintenance Due Date Last Done Comments [...] 2024 02/28/2022, 08/23/2021, 12/03/2020, Additional history exists Diabetes: Blood Sugar Control Test (HGBA1C) 10/19/2024 Influenza Vaccine (Season Ended) 2025 08/15/2023, 07/31/2022, 10/19/2021, Additional history exists DTaP,Tdap,and Td Vaccines (3 - Td or [...] age to complete this topic Meningococcal B Vaccine Aged Out No l onger eligible based on patient's age to complete this topic RSV Immunization Patients Under 20 months Aged Out No longer eligible based on patient's age to complete this topic Varicella Vaccines Aged Out No longer eligible based on patient's age to complete this topic Insurance [facility] MEDICAID - [place] MEDICARE Advance Directives Documents on File Type Date Recorded Patient Mercantile Agent Expl anation Health Care Decision (hx) 09/26/2023 AD FARNSWORTH DIRECTIVE Health Care Decision (hx) 05/09/2021 AD FARNSWORTH DIRECTIVE Health Care Decision (hx) 05/09/2021 AD FARNSWORTH DIRECTIVE Care Teams Stake Setter Relationship Specialty Start Date End Date Rex Bass MD [address] [place] [address], [phone] PCP - General 04/23/24
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
--- OUTSIDE RECORDS SUMMARY | 2025-02-15 06:22 | XMS_ITS | Data Portability ---
Author Organization [facility], PAIN OFFICE Address [address] [place] [address] Care Team Providers Care Supervisor Loading Name Role Phone ABAD GONSALES Primary Care Provider [phone] GUILHERME DIAZ Referring Provider Assessment Encounter Date [...] appointment has been booked. She needs a carry all driver on the day of the procedure. [...] By Organization Details Last Modified Time 06/26/2021 [id number] She was advised against bed rest lasting longer than four days and to continue activities as tolerated. [email or web address] Not available 06/30/2021 10:01:24 07/11/2021 [id number] She was advised to continue with activities as tolerated [email or web address] Not available 07/11/2021 13:35:39 10/04/2021 [id number] She was advised to continue with activities as tolerated [email or web address] Not available 10/04/2021 11:55:19 12/12/2021 [id number] She was advised to continue with activities as tolerated [email or web address] Not available 12/12/2021 12:09:37 08/21/2022 [id number] She was advised to continue with activities as tolerated [email or web address] Not available 08/21/2022 10:34:48 Reason for Referral None Reported. Problems Name Problem SNOMED Code Status Onset Date Resolution Date Notes Provider Name and Address Organization Details Recorded Time Spinal stenosis of lumbar region 75418500 Active 2016 Alf adams MD [address] [place] [address] , [address], [facility] [place], [address] [facility] [place] [facility] 7 10:55:25 Lumbosacral spondylosis without myelopathy 59277493 Active 2016 Alf adams MD [address] , [address], [place], [address], [place] [facility] 7 10:55:26 Lumbosacral radiculitis 61260280 Active 2016 Alf adams MD [address] , [address], [place], [address], [place] [facility] 7 10:55:27 Displacement of lumbar intervertebral disc without myelopathy 15876232 Active 2016 Alf adams MD [address] , [address], [place], [address], [place] [facility] 7 10:55:30 Post-herpetic neuritis 998810105 Active Alf adams MD [address] , [address], [place], [address], [place] [facility] 9 14:56:27 Inflammation of joint of shoulder region 478567298 Active Alf adams MD [address] , [address], [place], [address], [place] [facility] 9 09:39:04 Problem Notes None recorded. Procedures Surgical History Date Name Laterality Status Provider Name and Address Organization Details Recorded Time 08/21/20 22 Lumbar Epidural steroid injection under fluoroscopic guidance completed Alf Posada MD [address] , [address], [place], [address], [place] [facility] 08/21/2022 10:36:53 12/13/19 22 Lumbar Epidural steroid injection under fluoroscopic guidance completed Alf Posada MD [address] , [address], [place], [address], [place] [facility] 12/12/2021 12:09:46 10/04/20 21 Lumbar Epidural steroid injection under fluoroscopic guidance completed Alf Posada MD [address] , [address], [place], [address], [place] [facility] 10/04/2021 11:55:59 07/11/20 21 Lumbar Epidural steroid injection under fluoroscopic guidance completed Alf Posada MD [address] , [address], [place], [address], [place] [facility] 07/11/2021 13:35:45 04/11/20 21 Lumbar Epidural steroid injection under fluoroscopic guidance completed Alf Posada MD [address] , [address], [place], [address], [place] [facility] 04/11/2021 13:56:00 01/11/20 21 Lumbar Epidural steroid injection under fluoroscopic guidance completed Alf Posada MD [address] , [address], [place], [address], [place] [facility] 01/12/2021 09:57:53 09/06/20 20 Lumbar Epidural steroid injection under fluoroscopic guidance completed Alf Posada MD [address] , [address], [place], [address], [place] [facility] 09/08/2020 14:56:36 06/15/20 20 Lumbar Epidural steroid injection under fluoroscopic guidance completed Alf Posada MD [address] , [address], [place], [address], [place] [facility] 06/15/2020 14:00:13 05/23/20 20 Intra-articular shoulder steroid injection under ultrasound guidance completed Alf Posada MD [address] , [address], [place], [address], [place] [facility] 05/23/2020 15:11:49 05/11/20 19 Intra-articular shoulder steroid injection under ultrasound guidance completed Alf Posada MD [address] , [address], [place], [address], [place] [facility] 05/11/2019 09:43:25 03/31/20 19 Lumbar Epidural steroid injection under fluoroscopic guidance completed Alf Posada MD [address] , [address], [place], [address], [place] [facility] 03/31/2019 18:50:07 01/08/20 19 Fluoroscopic Guided Lumbar Facet Steroid Injections of levels completed Alf Posada MD [address] , [address], [place], [address], [place] [facility] 01/08/2019 15:03:53 09/17/20 17 Fluoroscopic Guided Lumbar Facet Steroid Injections of levels completed Alf Posada MD [address] , [address], [place], [address], [place] [facility] 09/17/2017 10:08:58 08/07/20 17 Fluoroscopic Guided Lumbar Facet Steroid Injections of levels completed Alf Posada MD [address] , [address], [place], [address], [place] [facility] 08/07/2017 10:36:11 05/08/20 17 Lumbar Epidural steroid injection under fluoroscopic guidance completed Alf Posada MD [address] , [address], [place], [address], [place] [facility] 05/08/2017 10:54:37 Joint Replacement completed Fayechris Sotoer [place] [facility] 03/14/2017 14:36:04 Cholecystectomy completed Faye Varghese [place] [facility] 03/14/2017 14:36:22 Back Surgery completed Alf Posada MD [address] , [address], [place], [address], [place] [facility] 04/02/2017 [...] completed Not Available Not Available Not Available [employer] Ultra Test strips TESTS DAILY FOR [...] Not Available No t Available Fluzone High-Dose 8540-3468 (PF) 180 mcg/0.5 mL intramuscul ar syringe TO BE ADMINISTE RED BY PHARMACIS T FOR IMMUNIZAT ION 08/07 completed Not Available Not Available Not Available Fluzone High-Dose 5106-6591 (PF) 180 mcg/0.5 mL intramuscul ar syringe [...] Updated DateTime 1 160.02 cm 34.7 kg/m2 93798.1 g 58 /min 98 % 98 % 6 144 mm[Hg] 56 mm[Hg] Alf adams MD [address] [facility] , [address], [facility] [place], [address], [place] [facility] 1 [...] Smoker Quit x 20 years Not Available [facility] 07/22/2020 03:16:10 Which Illicit Or Recreational Drugs Have You Used? NO [id number] Information not available 07/22/2020 Education 12 With Some College Information not available 03/14/2017 Live Alone Or With Others? Alone Information not available 03/14/2017 Marital Status Informatio n not available 03/14/2017 What Was The Date Of Your Most Recent Tobacco Screening? 03/31/2019 [id number] Information not available 07/22/2020 How Many Years Have You Smoked Tobacco? 20 [id number] Information not available 07/22/2020 Sex: Unknown Functional Status Question Answer Note LastModified by Organization D etails LastModified Time What is your level of alcohol consumption? Moderate [id number] Information not available 07/22/2020 Are you currently employed? No [id number] Information not available 07/22/2020 Mental Status None recorded. Family History Nothing Reported. Medical History Condition Response Coronary Artery Disease Y Arthritis Y Hypertension Y Asthma Y High Cholesterol Y Gynecological HistoryNo gynecological history recorded. Obstetrics History GPAL:G 0 P 0 0 0 0 Past Encounters Encounter ID Performer Location Encounter Start Date Encounter Closed Date Diagnosis/Indication Diagnosis SNOMED-CT Code Diagnosis ICD10 Code Diagnosis Note [id number] Alf Posada MD PAIN OFFICE [address] [place] [address] 03/14/2017 13:22:16 03/14/2017 15:44:04 Spinal stenosis of lumbar region 03364800 M48.06 Lumbosacra l spondylosis without myelopathy 06689927 M47.817 Lumbosacra l radiculitis 44835440 M54.17 Displaceme nt of lumbar intervertebral disc without myelopathy 48658537 M51.26 [id number] Alf Posada MD PAIN OFFICE [address] [place] [address] 05/08/2017 09:51:37 05/09/2017 14:08:37 Spinal stenosis of lumbar region 09798831 M48.06 Lumbosacra l spondylosis without myelopathy 32324299 M47.817 Lumbosacra l radiculitis 11196291 M54.17 Displaceme nt of lumbar intervertebral disc without myelopathy 63137097 M51.26 [id number] Alf Posada MD PAIN OFFICE [address] [place] [address] 06/14/2017 10:36:32 06/17/2017 09:50:43 Spinal stenosis of lumbar region 30877905 M48.06 Lumbosacra l spondylosis without myelopathy 86800067 M47.817 Lumbosacra l radiculitis 48248191 M54.17 Displaceme nt of lumbar intervertebral disc without myelopathy 61773747 M51.26 [id number] Alf Posada MD PAIN OFFICE [address] [place] [address] 08/07/2017 10:01:00 08/07/2017 15:19:24 Spinal stenosis of lumbar region 11793934 M48.062 Lumbosacra l spondylosis without myelopathy 70986621 M47.817 Lumbosacra l radiculitis 13585045 M54.17 Displaceme nt of lumbar intervertebral disc without myelopathy 74564885 M51.26 [id number] Alf Posada MD PAIN OFFICE [address] [place] [address] 09/05/2017 10:11:57 09/05/2017 19:46:07 Spinal stenosis of lumbar region 28193128 M48.062 Lumbosacra l spondylosis without myelopathy 55874003 M47.817 Lumbosacra l radiculitis 82264077 M54.17 Displaceme nt of lumbar intervertebral disc without myelopathy 12140016 M51.26 [id number] Alf Posada MD PAIN OFFICE [address] [place] [address] 09/17/2017 09:13:54 09/19/2017 09:09:31 Spinal stenosis of lumbar region 36512486 M48.062 Lumbosacra l spondylosis without myelopathy 53861756 M47.817 Lumbosacra l radiculitis 38724552 M54.17 Displaceme nt of lumbar intervertebral disc without myelopathy 12230317 M51.26 [id number] Alf Posada MD PAIN OFFICE [address] [place] [address] 12/25/2018 11:24:23 12/25/2018 16:12:18 Spinal stenosis of lumbar region 49698068 M48.061 Lumbosacra l spondylosis without myelopathy 64003635 M47.817 Lumbosacra l radiculitis 15865364 M54.17 Displaceme nt of lumbar intervertebral disc without myelopathy 88654472 M51.26 [id number] Alf Posada MD PAIN OFFICE [address] [place] [address] 01/07/2019 09:10:35 01/08/2019 15:11:02 Spinal stenosis of lumbar region 17538679 M48.062 Lumbosacra l spondylosis without myelopathy 61269513 M47.817 Lumbosacra l radiculitis 84847556 M54.17 Displaceme nt of lumbar intervertebral disc without myelopathy 91842293 M51.26 [id number] Alf Posada MD PAIN OFFICE [address] [place] [place] [address] 02/04/2019 14:13:14 02/04/2019 16:10:53 Post-herpetic neuritis 929271213 B02.29 Spinal linda nosis of lumbar region 48082713 M48.061 Lumbosacra l spondylosis without myelopathy 38354162 M47.817 Lumbosacra l radiculitis 29132655 M54.17 Displaceme nt of lumbar intervertebral disc without myelopathy 26203157 M51.26 [id number] Alf Posada MD PAIN OFFICE [address] [place] [place] [address] 03/31/2019 09:49:03 03/31/2019 18:56:55 Spinal stenosis of lumbar region 57921115 M48.061 Lumbosacra l spondylosis without myelopathy 62724292 M47.817 Lumbosacra l radiculitis 48417540 M54.17 Displaceme nt of lumbar intervertebral disc without myelopathy 49004662 M51.26 [id number] Alf Posada MD PAIN OFFICE [address] [place] [place] [address] 05/11/2019 08:51:59 05/11/2019 09:45:44 Inflammation of joint of shoulder region 073102218 M13.819 Spinal linda nosis of lumbar region 34950864 M48.061 [id number] Alf Posada MD [facility] PA[facility] OFFICE [address] [place] [address] 12/14/2019 13:40:03 12/14/2019 16:14:01 Spinal stenosis of lumbar region 83784729 M48.061 Lumbosacra l spondylosis without myelopathy 04903426 M47.817 Lumbosacra l radiculitis 48357110 M54.17 Displaceme nt of lumbar intervertebral disc without myelopathy 80395600 M51.26 [id number] Alf Posada MD PAIN OFFICE [address] [place] [address] 02/12/2020 11:36:11 02/15/2020 12:09:29 Spinal stenosis of lumbar region 00351519 M48.061 Lumbosacra l spondylosis without myelopathy 44063247 M47.817 Lumbosacra l radiculitis 34491247 M54.17 Displaceme nt of lumbar intervertebral disc without myelopathy 99223096 M51.26 [id number] Alf Posada MD PAIN OFFICE [address] [facility] [place] [place] [address] 05/13/2020 08:29:14 05/13/2020 09:22:37 Inflammation of joint of shoulder region 411556393 M13.819 Spinal linda nosis of lumbar region 20206214 M48.061 [id number] Alf Posada MD PAIN OFFICE [address] [facility] [place] [address] 05/23/2020 12:46:33 05/23/2020 15:14:52 Inflammation of joint of shoulder region 153061010 M13.819 Spinal linda nosis of lumbar region 22190588 M48.061 [id number] Alf Posada MD [facility] [address] [facility] [place] [address] 06/15/2020 10:54:32 06/15/2020 14:04:50 Inflammation of joint of shoulder region 515562384 M13.819 Spinal linda nosis of lumbar region 27643288 M48.061 Lumbosacra l spondylosis without myelopathy 05341086 M47.817 Lumbosacra l radiculitis 15787260 M54.17 Displaceme nt of lumbar intervertebral disc without myelopathy 79739576 M51.26 [id number] Alf Posada MD [facility] PA[facility] [address] [facility] [place] [address] 07/13/2020 08:30:09 07/13/2020 11:05:07 Inflammation of joint of shoulder region 232252499 M13.819 Spinal linda nosis of lumbar region 48940376 M48.061 [id number] Alf Posada MD PAIN OFFICE [address] [facility] [place] [place] [address] 09/06/2020 10:30:56 09/08/2020 15:55:16 Inflammation of joint of shoulder region 286161899 M13.819 Spinal linda nosis of lumbar region 17512043 M48.061 Lumbosacra l spondylosis without myelopathy 21269913 M47.817 Lumbosacra l radiculitis 22549087 M54.17 Displaceme nt of lumbar intervertebral disc without myelopathy 20932006 M51.26 [id number] Alf Posada MD PAIN OFFICE [address] [facility] [place] [address] 11/07/2020 08:59:33 11/07/2020 09:55:18 Spinal stenosis of lumbar region 29279416 M48.061 Lumbosacra l spondylosis without myelopathy 84002868 M47.817 Lumbosacra l radiculitis 65001595 M54.17 Displaceme nt of lumbar intervertebral disc without myelopathy 46919344 M51.26 [id number] Alf Posada MD [facility] [address] [facility] [place] [address] 01/10/2021 13:47:25 01/12/2021 10:00:57 Inflammation of joint of shoulder region 472623296 M13.819 Spinal linda nosis of lumbar region 29071529 M48.061 Lumbosacra l spondylosis without myelopathy 04351877 M47.817 Lumbosacra l radiculitis 75255995 M54.17 Displaceme nt of lumbar intervertebral disc without myelopathy 52850485 M51.26 [id number] Alf Posada MD [facility] PA[facility] [address] [facility] [place] [address] 02/16/2021 08:44:41 02/16/2021 10:52:14 Spinal stenosis of lumbar region 80564514 M48.061 Lumbosacra l spondylosis without myelopathy 36666883 M47.817 Lumbosacra l radiculitis 49746374 M54.17 Displaceme nt of lumbar intervertebral disc without myelopathy 92599343 M51.26 [id number] Alf Posada MD [facility] PA[facility] [address] [facility] [place] [address] 04/11/2021 13:21:59 04/11/2021 14:01:08 Spinal stenosis of lumbar region 51814653 M48.061 Inflammati on of joint of shoulder region 359215355 M13.819 Lumbosacra l spondylosis without myelopathy 33961543 M47.817 Lumbosacra l radiculitis 01533810 M54.17 Displaceme nt of lumbar intervertebral disc without myelopathy 54588283 M51.26 [id number] Alf Posada MD [facility] PA[facility] OFF[facility] [address] [place] [address] 06/26/2021 15:22:32 06/30/2021 10:03:11 Spinal stenosis of lumbar region 26022896 M48.061 Lumbosacra l spondylosis without myelopathy 08454752 M47.817 Lumbosacra l radiculitis 56237122 M54.17 Displaceme nt of lumbar intervertebral disc without myelopathy 91069608 M51.26 [id number] Alf Posada MD [facility] PA[facility] OFF[facility] [address] [place] [place] [address] 07/11/2021 12:54:52 07/11/2021 13:38:15 Spinal stenosis of lumbar region 05979659 M48.061 Inflammati on of joint of shoulder region 274569384 M13.819 Lumbosacra l spondylosis without myelopathy 61677684 M47.817 Lumbosacra l radiculitis 52483275 M54.17 Displaceme nt of lumbar intervertebral disc without myelopathy 16756245 M51.26 [id number] Alf Posada MD PAIN OFFICE [address] [place] [address] 10/04/2021 10:46:49 10/04/2021 12:00:47 Spinal stenosis of lumbar region 27749711 M48.061 Inflammati on of joint of shoulder region 250228678 M13.819 Lumbosacra l spondylosis without myelopathy 01533184 M47.817 Lumbosacra l radiculitis 60901140 M54.17 Displaceme nt of lumbar intervertebral disc without myelopathy 53316590 M51.26 [id number] Alf Posada MD PAIN OFFICE [address] [place] [address] 12/12/2021 11:17:23 12/12/2021 14:28:00 Spinal stenosis of lumbar region 95685275 M48.061 Inflammati on of joint of shoulder region 179864895 M13.819 Lumbosacra l spondylosis without myelopathy 41691379 M47.817 Lumbosacra l radiculitis 78649125 M54.17 Displaceme nt of lumbar intervertebral disc without myelopathy 74125553 M51.26 [id number] Alf Posada MD PAIN OFFICE [address] [place] [address] 08/21/2022 10:05:44 08/21/2022 11:05:40 Spinal stenosis of lumbar region 99976425 M48.061 Inflammati on of joint of shoulder region 146896365 M13.819 Lumbosacra l spondylosis without myelopathy 49643371 M47.817 Lumbosacra l radiculitis 07227122 M54.17 Displaceme nt of lumbar intervertebral disc without myelopathy 31032633 M51.26 Degenerati on of lumbar intervertebral disc 03658426 M51.36 Health Concerns Section Related Observation LastModified by Organization Detai ls LastModified Time None Recorded Concern Status LastModified by Organization Details LastModified Time None Recorded Advance Directives Directive None Recorded Payers Encounter Date Sequence Insurance Name Policy Number Policy Anders Covered Member ID Anders Member ID Guarantor Name 06/26/2021 1 [place] [employer] [place] Shreya M Gravel [id number] Shreya Gravel 06/26/2021 2 [place] [id number] Shreya Gravel [id number] Shreya Gravel 07/11/2021 1 [place] Shreya M Gravel [id number] Shreya Gravel 07/11/2021 2 [place] [id number] Shreya Gravel [id number] Shreya Gravel 10/04/2021 1 [place] Shreya M Gravel [id number] Shreya Gravel 10/04/2021 2 [place] [id number] Shreya Gravel [id number] Shreya Gravel 12/12/2021 1 [place] Shreya M Gravel [id number] Shreya Gravel 12/12/2021 2 [place] [id number] Shreya Gravel [id number] Shreya Gravel 08/21/2022 1 [place] Shreya M Gravel [id number] Shreya Gravel 08/21/2022 2 [place] [id number] Shreya Gravel [id number] Shreya Gravel Notes Date Note Type [...] or bowel incontinence. Alf Posada MD [address] [facility] , [address], [place], [address], [facility] - Pain Management 07/10/2021 08:52:57 07/11/2021 text/html She is here for a lumbar epidural steroid injection under fluoroscopic guidance. Alf Posada MD [address] [facility] , [address], [place], [address], [place] [facility] 07/12/2021 09:01:37 10/04/2021 text/html She is here for a lumbar epidural steroid injection under fluoroscopic guidance. Alf Posada MD [address] [facility] , [address], [place], [address], [place] [facility] 10/04/2021 12:48:56 12/12/2021 text/html She is here for a lumbar epidural steroid injection under fluoroscopic guidance. Alf Posada MD [address] [facility] , [address], [place], [address], [place] [facility] 12/12/2021 16:13:18 08/21/2022 text/html She is here for a lumbar epidural steroid injection under fluoroscopic guidance. She has stopped eliquis and pletal as instructed for the procedure. Alf Posada MD [address] [facility] , [address], [place], [address], [place] [facility] 08/22/2022 08:44:58 OBGyn Episode No OBEpisode recorded.
--- OUTSIDE RECORDS SUMMARY | 2025-02-15 06:22 | XMS_ITS | Data Portability ---
Author Organization [place] - [facility] Address [address] [place] [address] Care Team Providers Care Cooling System Operator Name Role Phone ABAD ISLAS Primary Care Provider [facility] MANAGERS OTHER Assessment Encounter Date Assessment [...] after care of this patient according to [facility]'s infection prevention protocols. Not available 08/31/2021 20:13:40 [...] after care of this patient according to [facility]'s infection prevention protocols. Not available 09/02/2021 22:38:16 03/21/2022 03/21/2022 Overview/History : 86 yo F established with new to this provider presents for evaluation of wounds to both lower legs s/p fall in February. The left wound failed to close with sutures and she developed an infection as well. She is followed by [facility] for wound care of both legs. She has developed burning pain with and redness to both wounds worse on the left. [facility] is coming in every two days [...] left extremity that is consistent with cellulitis. [facility] is in every 2 days [...] after care of this patient according to [facility]'s infection prevention protocols. [email or web address] Not available 03/21/2022 20:18:44 Plan of Treatment Reminders Order Date Submit Date Provider Last Modified By Organization Details Last Modified Time Details Appointments None recorded. Lab rapid SARS CoV + SARS CoV 2 Ag, QL IA, respiratory specimen 2020 021 [email or web address] 3 [facility], [address] [place] [address], [address], 11:23:08 Referral None recorded. Procedures None recorded. Surgeries None recorded. Imaging US, duplex, venous, extremity, limited - swelling of left lower extremity, s/p fall and wound to left lower extremity r/o DVTpt is homebound,d oes not drive 2021 022 MAGDY [facility] ([facility] [address] [place] [address], [address], 2 18:21:15 XR, foot, 3 or more view - r/o right 2nd toe fracture. call pt @ [phone] 5 2021 022 [facility] ([facility] [address] [place], [address], 2 10:17:17 XR, chest, 2 view 2020 021 [email or web address] [facility] ([facility] [address] [place], [address], 1 16:59:08 Medication Orders cephalexin 500 mg capsule 2021 022 [email or web address] [facility][id number], [address] [place], [address], 16:20:51 cephalexin 500 mg capsule 2021 022 MAGDY [id number], [address] [place], [address], 16:21:00 cephalexin 500 mg capsule 2021 022 [email or web address] [facility] #[id number], [address] [place], [address], 15:51:19 azithromyci n 250 mg tablet 2020 021 [email or web address] 0 [facility][id number], [address] [place], [address], 13:35:29 Patient TargetsNo targets recorded. Patient Instructions Encounter Date Encounter Id Patient Instructions Last Modified By Organization Details Last Modified Time 08/31/2021 [id number] What is coronavi ethel disease 2019? Coronavirus disease 2019 (COVID-19) is a respiratory illness that can spread from person to person. The virus that causes COVID-19 is a novel coronavirus that was first identified during an investigation into an outbreak in [facility]. Can I get COVID-19? Yes. COVID-19 is [...] least 20 seconds. Use an alcohol-based hand bread jockey that contains at least 60% alcohol if [...] (EUA). The EUA is supported by the [place] of Health and Human Service? s (HHS? [...] or worsen. Not available 08/31/2021 20:06:42 09/02/2021 [id number] Thank you for yo ur visit with [facility] today. We cannot always find the exact [...] in your condition between 8am-10pm, please call [facility] at [phone] to help navigate your care. Not available 09/02/2021 22:29:43 12/08/2021 [id number] Thank you for yo ur visit with Jibbigo today. We cannot always find the exact [...] in your condition between 8am-10pm, please call [facility] at [phone] to help navigate your care. Thank you for your visit with Jibbigo today. You do not appear to have [...] in your condition between 8am-10pm, please call [facility] at [phone] to help navigate your care. Not available 12/08/2021 17:46:11 03/21/2022 [id number] Thank you for yo ur visit with Jibbigo today. You may have had laboratory tests [...] in your condition between 8am-10pm, please call [facility] at [phone] to help navigate your care. [email or web address] Not available 03/21/2022 17:19:04 Reason for Referral None Reported. Results Created Date Observation Date Name Description Value Unit Range Abnormal Flag Note LastModifiedBy Organization Detail LastModifiedTime 08/31/20 21 08/31/2021 rapid SARS CoV + SARS CoV 2 Ag, QL IA, respi rator y speci men Covid-19 (ref: neg) positi ve Not Available Spr - Home [address] [place], [address], 08/31/2021 11:22:25 08/31/20 21 08/31/2021 rapid SARS CoV + SARS CoV 2 Ag, QL IA, respi rator y speci men Control Visual ized/V alid Not Available [facility] - Home [address] [place], [address], 08/31/2021 11:22:25 08/31/20 21 08/31/2021 rapid SARS CoV + SARS CoV 2 Ag, QL IA, respi rator y speci men Location [facility], [facility] miss[facility] s , [address] [place] [address], [id number] Not Available [facility] - Home [address] [place], [address], 08/31/2021 11:22:25 08/31/20 21 08/31/2021 rapid SARS CoV + SARS CoV 2 Ag, QL IA, respi rator y speci men Race & Ethnicity Other White Not Available [facility] - Home [address] [place], [address], 08/31/2021 11:22:25 08/31/20 21 08/31/2021 rapid SARS CoV + SARS CoV 2 Ag, QL IA, respi rator y speci men Language Englis h Not Available [facility] - Home [address], [place], [address], 08/31/2021 11:22:25 09/01/20 21 XR, chest , 2 view No observ ation record ed. [facility] Corporate Office ([facility]) [address] [facility], [place], [address], 09/02/2021 18:27:35 03/02/20 22 03/02/2022 venou s [...] MIRAMONTES M.D. 022 6:10:3 5 PM EDT. [email or web address] [facility] [address], [place], [address], 03/04/2022 22:42:26 Result Notes None recorded. Problems Name Problem SNOMED Code Status Onset Date Resolution Date Notes Provider Name and Address Organization Details Recorded Time Hypertensive disorder 91542069 Active 2018 [place] [facility] 17:08:43 Hypertensive disorder 47954197 Active 2019 [place] [facility] 17:08:43 Problem Notes None recorded. Procedures Surgical History Date Name Laterality Status Provider Name and Address Organization Details Recorded Time Medication Review completed Shania Marrero NP [address], [place], [address], [place] [facility] 10/22/2020 12:08:57 021 IV Start Procedure - completed JOSSE SALGADO NP [address] [place], [address], [place] [facility] 10/20/2020 12:39:22 020 Venipuncture - completed TAE SESAY [address], [place], [address], [place] [facility] 10/27/2019 23:49:05 cholecystectomy completed Carly DUBON NP [address] [place], [address], [place] [facility] 08/31/2021 11:12:48 hysterectomy completed Carly MCKEON NP [address] [place], [address], [place] [facility] 08/31/2021 11:12:58 Cabg vein four completed Carly MCKEON NP [address], [place], [address], [place] [facility] 08/31/2021 11:13:24 Imaging Results Imaging Date Name Status LastModified by Organfredrick fontaine Details LastModified Time 09/01/2021 XR, chest, 2 view completed [email or web address] [facility] Corporate Office ([facility]) [address] [place] [address], [place], [address], 09/02/2021 18:27:35 03/02/2022 venous doppler extrem/sanchez completed [email or web address] [facility] [address] [facility] [address], [place], [address], 03/04/2022 22:42:26 Procedure Notes None recorded. Medical [...] /min 130 mm[Hg] 68 mm[Hg] Not Available [facility] 1 11:02:38 Date Recorded Oxygen saturation Oxygen saturation in Arterial blood by Pulse oximetry Respiratory rate Body temperature Heart rate Systolic blood pressure Diastolic blood pressure Provider Name and Address Organization Details Last Updated DateTime 1 96 % 96 % 22 /min 98.6 [degF] 68 /min 124 mm[Hg] 78 mm[Hg] Not Available [facility] 1 16:52:24 Date Recorded Heart rate Oxygen saturation Oxygen saturation in Arterial blood by Pulse oximetry Respiratory rate Body temperature Systolic blood pressure Diastolic blood pressure Provider Name and Address Organization Details Last Updated DateTime 2 68 /min 96 % 96 % 16 /min 96.7 [degF] 112 mm[Hg] 60 mm[Hg] Not Available [facility] 2 13:37:22 Date Recorded Oxygen saturation Oxygen saturation in Arterial blood by Pulse oximetry Respiratory rate Heart rate Body temperature Systolic blood pressure Diastolic blood pressure Provider Name and Address Organization Details Last Updated DateTime 2 97 % 97 % 16 /min 71 /min 98.5 [degF] 116 mm[Hg] 68 mm[Hg] Not Available [facility] 2 15:55:18 Social History Question Answer Notes LastModified by Organizat ion Details LastModified Time Tobacco Smoking Status Former Smoker JOSSE SALGADO, [employer] [address], [place], [address], [place] [facility] 12/26/2019 13:07:15 Do You Have An Advance Directive? Yes Information not available 12/26/2019 What Is Your Code Status? Full Code Information not available 12/26/2019 Drugs Abused None Information not available 10/17/2020 How Many Days In The Past Year Have You Had A Heavy Drinking Consumption (4+ Female, 5+ Male)? 0 [email or web address] Information not available 10/17/2020 Within The Past 12 Months, Has It Happened That The Food You Bought Just Didn't Last And You Didn't Have Money To Get More. No [email or web address] Information not available 10/17/2020 Within The Past 12 Months, Have You Worried That Your Food Would Run Out Before You Got Money To Buy More. No [email or web address] Information not available 10/17/2020 Fall Risk: Do You Feel Unsteady When Standing Or Walking? Yes [email or web address] Information not available 10/17/2020 We Know That How And When People Interact With Friends And Family Can Be Very Different From Person To Person. How Often Do You Have The Opportunity To See Or Talk To People That You Care About And Feel Close To? (Ex: Talking To Friends On The Phone Or Visiting Friends Or Family Or Going To Sikhism Or Club Meetings) 1 Or 2 Times Per Week [email or web address] Information not available 10/17/2020 Excessive Alcohol Or Drug Use No [email or web address] Information not available 10/17/2020 We Know From Many Of Our Patients That Covering All Of Their Costs Can Be Difficult At Times. This Can Cause Stress And Impact Health. In The Past Year, Have You Been Unable To Get Any Of The Following When It Was Really Needed? No Information not available 10/17/2020 What Is Your Housing Situation Today? I Have Housing [email or web address] Information not available 10/17/2020 Would You Like Help Connecting To Resources? None Information not available 10/17/2020 Marital Status [email or web address] Informatio n not available 10/17/2020 What Was The Date Of Your Most Recent Tobacco Screening? 02/23/2019 [email or web address] Information not available 01/20/2020 Has Tobacco Cessation Counseling Been Provided? No [email or web address] Information not available 01/20/2020 How Many Years Have You Smoked Tobacco? 45 Information not available 08/31/2021 Sex: Unknown Functional Status Question Answer Note LastModified by SueEasyizat ion Details LastModified Time Do you use any illicit or recreational drugs? No Information not available 08/31/2021 Do you or have you ever used any other forms of tobacco or nicotine? No Information not available 08/31/2021 What is your level of alcohol consumption? None Information not available 08/31/2021 Mental Status None recorded. Family History Relationship Description Onset Age of this Age Resolved Age Notes LastModified by Organization Details LastModified Time Father Malignant tumor of colon Not available 08/31 11:06:30 Mother Malignant tumor of colon Not available 08/31 11:06:30 Medical History Condition Response Diabetes Y Coronary Artery Disease Y CHF N Parkinson's Disease N Cancer N Stroke N Dementia N Hypothyroidism N Depression Y COPD Y Asthma Y High Cholesterol Y Rheumatoid Arthritis N Pulmonary Embolism N Hypertension Y Osteoporosis Y A-fib N Kidney Disease N Gynecological HistoryNo gynecological history recorded. Obstetrics History GPAL:G 0 P 0 0 0 0 Past Encounters Encounter ID Performer Location Encounter Start Date Encounter Closed Date Diagnosis/Indication Diagnosis SNOMED-CT Code Diagnosis ICD10 Code Diagnosis Note [id number] TAE RAMIREZ [facility] [address] [place] [address], [place] [address] 02/07/2019 08:54:53 02/10/2019 15:05:36 Swelling of lower leg 546778420 R22.40 Wheezing 44995871 R06.2 resolved Chronic ob structive pulmonary disease 03929701 J44.9 Congestive heart failure 68222531 I50.9 [id number] TAE SESAY [facility] [address] [place] [address] 02/19/2019 14:54:40 02/24/2019 12:56:57 Edema of lower extremity 605148576 R60.0 [id number] JOSSE SALGADO NP [facility] [address] [place] [address] 02/23/2019 16:49:50 02/24/2019 13:23:51 Low back strain 212366406 S39.012A [id number] TAE SESAY [facility] [address] [place] [address] 10/27/2019 14:16:46 10/28/2019 10:09:40 Edema of lower extremity 819397861 R60.0 Pain in ri ght lower limb 366771123 M79.604 Tear of skin 432559809 T 14.8XXA [id number] JOSSE SALGADO NP [facility] [address] [place] [address] 12/26/2019 12:57:09 12/29/2019 00:46:41 Facial laceration 589386994 S01.81XA Fall on sa me level from slipping, tripping or stumbling 830790926 W01.0XXA [id number] TAE SESAY [facility] [address] [place] [address] 01/16/2020 15:03:33 01/20/2020 13:32:20 Low back strain 230466885 S39.012A Low back pain 272975251 M54.5 [id number] Mayra Lee NP [facility] [address] [place] [address] 08/20/2020 11:06:15 08/23/2020 10:14:53 Tear of skin 383285101 T14.8XXA [id number] Mirela Mi RN [facility] [address] [place] [address] 08/22/2020 12:46:45 08/22/2020 13:06:28 [id number] JENSEN ZARCO [employer] [facility] [address] [place] [address] 08/22/2020 15:02:13 08/22/2020 21:37:57 Open wound of lower leg 106325858 S81.802A [id number] TAE CLEMONS [facility] [address] [place] [address] 10/17/2020 11:49:50 10/18/2020 11:22:26 Cellulitis of lower limb 457726104 L03.119 Swelling of lower leg 44 7773877 R22.40 [id number] JOSSE SALGADO [employer] [facility] [address] [place] [address] 10/20/2020 11:54:28 10/21/2020 12:53:21 Cellulitis of lower limb 379933415 L03.119 Exposure t o communicable disease 464663004 Z20.828 [id number] Shania Marrero [employer] [facility] [address] [place] [address] 10/22/2020 11:14:08 10/24/2020 17:43:41 Wound cellulitis 245488711 L03.90 [id number] JENSEN ZACRO NP [facility] [address] [place] [address] 02/02/2021 14:10:24 02/03/2021 13:29:29 Cellulitis of left lower limb 5262536272 1778896 L03.116 [id number] TAE KNOWLES [facility] [address] [place] [address] 02/06/2021 14:32:51 02/07/2021 12:44:05 Cellulitis of lower leg 349058778 L03.119 Suspected deep vein thrombosis 349679996 Z13.6 [id number] Mayra Lee [employer] [facility] [address] [place] [address] 04/03/2021 20:43:28 04/05/2021 23:52:12 Dizziness present 690668019 R42 Overview/H istory: Patient is an 85 [...] after care of this patient according to [facility]'s infection prevention protocols. In order to obtain further informatio n and compare any laboratory results/va lues, I have accessed {{old patient records* p atient records on the [employer] [place] [employer] r eviewed records with the PCP}}. This informatio n was pertinent in my medical decision making today. Low back pain 834090035 M54.5 Unintentio nal weight gain 7612901885 96997 R63.5 [id number] Carly MCKEON NP [facility] [address] [facility] [place] [address] 08/31/2021 10:49:08 09/06/2021 16:59:08 COVID-19 454157316 U07.1 + rapid Cough 00675551 R05.9 dry cough Chronic ob structive pulmonary disease 07077663 J44.9 pending [facility] enrollment , Rx to be sent by TAE Quinones for z-geno and proair 90 mcg 2 puffs every 4-6 hours as needed for fine scattered bilateral wheezepati ent declines any current Rx for GWEN Lethargy 564697202 R53.8 3 Exposure t o SARS-CoV-2 431802646 Z20.822 reports not leaving her apartment, has friend who gets mail for her, however she did go to [facility] ED on 08/27 for abdominal pain, nausea, diarrhea.s he denies any known exposure but high risk in ED [id number] Carly MCKEON NP [facility] [address] [facility] [place] [address] 09/02/2021 16:39:33 09/06/2021 11:49:43 COVID-19 432900215 U07.1 re-evaluat ion to monitor O2 which is 96 RAcurrentl y on day 3 of zpak Chronic ob structive pulmonary disease 25066656 J44.9 pt reports compliance with inhalers [id number] TAE Rosales [facility] [address] [facility] [place] [address] 12/08/2021 17:45:03 12/09/2021 10:11:45 Pain of toe of right foot 6246973895 63659 M79.084 Proper Personal Protective Equipment (PPE), including {{gloves, [...] after care of this patient according to [facility]'s infection prevention protocols. Overview/H istory: 86 Exam: [...] necrotic appearance , fevers, chest pain, sob. [id number] TAE Blancas [facility] [address] [place] [address] 02/28/2022 13:02:35 03/02/2022 12:14:09 Suspected soft tissue infection 1891111694 03382 Z20.818 Localized swelling of left lower leg 0118405145 8798521 R22.42 [id number] Yue Molina NP [facility] [address] [place] [address] 03/21/2022 15:37:31 03/24/2022 15:14:02 Wound cellulitis 341490240 L03.90 Health Concerns Section Related Observation LastModified by Organization Detai ls LastModified Time None Recorded Concern Status LastModified by Organization Details LastModified Time None Recorded Advance Directives Directive Y: Payers Insurance Date Sequence Insurance Name Policy Number Policy Anders Covered Member ID Anders Member ID Guarantor Name 02/07/2021 1 [place] Shreya M Gravel [id number] Shreya Gravel 02/07/2021 1 *SELF PAY* Shreya Gravel [id number] Shreya Gravel 02/07/2021 2 [place] [id number] Shreya Gravel [id number] Shreya Gravel 02/07/2021 1 [place] Mone Gravel [id number] Shreya Gravel 02/07/2021 1 [place] Shreya M Gravel [id number] Shreya Gravel 02/07/2021 2 [place] Mone Gravel [id number] Shreya Gravel 02/07/2021 1 *SELF PAY* Mone Gravel [id number] Shreya Gravel 02/07/2021 2 [place] Mone Gravel [id number] Shreya Gravel 03/21/2022 PENDING Shreya Gravel [id number] Shreya Gravel 03/21/2022 PENDING Shreya Gravel [id number] Shreya Gravel 03/24/2022 2 [place] [id number] Shreya Gravel [id number] Shreya Gravel 03/21/2022 PENDING Shreya Gravel [id number] Shreya Gravel 03/28/2022 1 [place] Shreya M Gravel [id number] Shreya Gravel 02/07/2021 2 [place] [id number] Heather Gravel [id number] Shreya Gravel 02/07/2021 1 [place] Shreya Gravel [id number] Shreya Gravel 02/07/2021 1 [place] Shreya M Gravel [id number] Shreya Gravel 02/07/2021 2 [facility] Shreya Gravel [id number] Shreya Gravel 02/07/2021 2 [facility] Shreya Gravel [id number] Shreya Gravel 02/07/2021 1 *SELF PAY* Shreya Gravel [id number] Shreya Gravel 02/07/2021 2 [facility] Shreya Gravel [id number] Shreya Gravel 04/03/2021 2 [place] [id number] Shreya Gravel [id number] Shreya Gravel 05/01/2021 1 [facility] Shreya Gravel [id number] Shreya Gravel 08/31/2021 2 [place] [id number] Shreya Gravel [id number] Shreya Gravel 09/06/2021 2 [facility] Shreya Gravel [id number] Shreya Gravel 09/02/2021 2 [place] [id number] Shreya Gravel [id number] Shreya Gravel 09/06/2021 2 [place] [id number] Shreya Gravel [id number] Shreya Gravel 12/08/2021 2 [place] [id number] Shreya Gravel [id number] Shreya Gravel 03/24/2022 2 [place] [id number] Shreya Gravel [id number] Shreya Gravel 03/21/2022 1 [place] [facility] Shreya M Gravel [id number] Shreya Gravel 02/07/2021 2 [place] [id number] Heather Gravel [id number] Shreya Gravel Notes Date Note Type [...] contacts. On 08/27/2021 she reports going to [facility] ED for evaluation of abdominal pain, nausea, diarrhea, and was d/c home same day with Rx for zofran in which she did not picker tender. She reports 2 nights ago waking up in the morning with diarrhea. She denies any fevers, shortness of breath, difficulty breathing, chest pain, palpitations, dizziness, unilateral weakness, change in mental status, vision, speech, taste and or smell. Carly MCKEON NP [address], [place], [address], [place] [facility] 08/31/2021 20:14:52 09/02/2021 text/html [...] status. Carly MCKEON NP [address], [place], [address], [place] [facility] 09/02/2021 22:38:32 12/08/2021 text/html [...] no CP TAE Rosales [address], [place], [address], [place] [facility] 12/08/2021 18:26:26 02/28/2022 text/html [...] got home and had infection went to [facility] was admitted for a week, then went to [facility] for rehab. 02/08/2022 home. TAE Blancas [address], [place], [address], [place] [facility] 03/08/2022 20:04:51 03/21/2022 text/html 86 yo F with wounds to the left s/p fall in early February. She had sutures in the left leg that became infected and a smaller wound to the middleton of the right lower leg. [facility] is following her for her wounds and are in every 2 days for assessment and dressing changes. Today she states she has burning to her legs and redness to of both legs.F/u with PCP in 03/30/22. Yue Molina NP [address], [place], [address], [place] [facility] 03/21/2022 20:19:51 OBGyn Episode No OBEpisode recorded.
--- OUTSIDE RECORDS SUMMARY | 2025-02-15 06:23 | XMS_ITS ---
Author Organization [facility] Address [address] [place] [address] Care Team Providers Care Product Safety Specialist Name Role Phone Shelia DIAZ, Rex Primary Care Provider Unavailab Lu Dickson Unavailable [phone] REASON FOR VISIT reference tel enc 06/09/24 Encounters Encounter Location Date Provider Diagnosis [facility] [address] [place] [address] 06/10/2024 Lu Black Plan Of Treatment No Information Progress Notes * Shreya BAUTISTADOB: [birth year] (88 yo F)Acc No.[id number]:06/10/2024 Patient:?Shreya Bautista :1935???Age:88 Y???Sex:Female Address:[address], [place], [address] * true * Date:? Generated for Haydei ree/Cory/eTransmitting on:?02/15/2025 06:22 AM EDT
--- OUTSIDE RECORDS SUMMARY | 2025-02-15 06:23 | XMS_ITS | Data Portability ---
Author Organization [facility] Mir Vracha [facility], Main Office Address [address] [place] [address] Care Team Providers Care Fashion Consultant Sales Name Role Phone DARRIN STYLES 3RD FLOOR OTHER Assessment Encounter Date Assessment Date Assessment LastModified by Organization Details LastModified Time 10/05/2024 10/05/2024 Labs 10/02: Na 139-K 4.0-Bun 17- Cr 0.6-wbc 4.9-hgb 13.3-hct 39.9-plt 190 A1c 5.7 Uric acid 3.4 Not available 10/05/2024 16:19:22 01/13/2025 01/13/2025 01/11/25 Na 139, K 3.9, Bun 16, Cr 0.7. Wbc 5, Hgb 12, Hct 35.6, Plt 166 [email or web address] Not available 01/13/2025 11:47:17 Plan of Treatment Reminders Order Date Submit [...] and Address Organization Details Recorded Time Cystitis 94548949 Active 2023 FRIEDA ANDERSON [address] [facility], [address], [place], [address], [facility] 4 14:00:02 Falls 456913999 Active 2023 FRIEDA ANDERSON [address] [facility], [address], [place], [address], [facility] 4 14:00:38 Pain of right wrist 8493545201825 00 Active 2023 CARLTON MINA, FRIEDA [address], [address], [place], [address], [facility] 4 14:00:56 Peripheral venous insufficien cy 48156708 Active 2023 CARLTON MINA, SEALER DRY CELL [address], [address], [place], [address], [facility] 4 14:01:26 Chronic diastolic heart failure 014816927 Active 2023 CARLTON MINA, SEALER DRY CELL [address], [address], [place], [address], [facility] 4 14:01:46 Type 2 diabetes mellitus 71591701 Active 2023 FRIEDA ANDERSON [address], [address], [place], [address], [facility] 4 14:01:55 Paroxysmal atrial flutter 068939691 Active 2023 CARLTON MINA, FRIEDA [address], [address], [place], [address], [facility] 4 14:02:21 Restless legs 80053307 Active 2023 CARLTON MINA, FRIEDA [address], [address], [place], [address], [facility] 4 14:02:38 Chronic obstructive pulmonary disease 32439516 Active 2023 CARLTON MINA, SEALER DRY CELL [address], [address], [place], [address], [facility] 4 14:02:49 Anemia of chronic disease 092765172 Active 2023 CARLTON MINA, SEALER DRY CELL [address], [address], [place], [address], [facility] 4 14:02:59 Mixed anxiety and depressive disorder 016276533 Active 2023 CARLTON MINA, SEALER DRY CELL [address], [address], [place], [address], [facility] 4 14:17:43 Chronic kidney disease 542631917 Active 2023 FRIEDA ANDERSON [address], [address], [place], [address], [facility] 4 14:19:41 Hyperlipide nena 63489868 Active 2023 [address] ANDERSON [address], [address], [place], [address], [facility] 4 14:26:52 Gastroesoph ageal reflux disease 086651884 Active 2023 FRIEDA ANDERSON [address] [place] [address], [address], [place], [address], [facility] 4 14:27:49 Chronic back pain 388732402 Active 2023 FRIEDA ANDERSON [address], [address], [place], [address], [facility] 4 14:40:47 Vitamin D deficiency 50106787 Active 2023 FRIEDA ANDERSON [address], [address], [place], [address], [facility] 4 19:41:46 Bradycardia 93873036 Active 2023 FRIEDA ANDERSON [address], [address], [place], [address], [facility] 4 19:44:32 Asthenia 10241600 Active 2023 FRIEDA ANDERSON [address], [address], [place], [address], [facility] 4 19:53:05 Bleeding from nose 406878308 Active 2023 FRIEDA ANDERSON [address], [address], [place], [address], [facility] 4 15:36:07 Osteomyelit is 49323289 Active 2023 Naomi Todd MD [address] [place] [address], [facility] [address], [place], [address], [facility] 4 17:53:51 Headache 92636466 Active 2023 WISAM SILVA NP [address] [place] [address], [facility] [address], [place], [address], [facility] 4 09:49:14 Essential hypertensio n 98164646 Active 2024 Rex Bass MD [address] [place] [address] [address], [place], [address], [facility] 5 09:46:16 Problem Notes None recorded. Medical Equipment None Reported. Allergies Allergen ID Allergen Name Allergen Category Reaction Reaction Severity Criticality Documentation Date Start Date Code Code System Note Provider Name and Address Organization Details Recorded Time 22576 lisinopri l medicatio n Not available Not available Not available 10/22/2023 82353 RxNorm Naomi Todd MD [address] [place] [address] [address], [place], [address], [facility] 4 17:53:46 Medications Name Sig Start Date Stop Date Status Note LastModified by Organization Details LastModified Time tramadol 50 mg tablet GIVE 1 TABLET BY MOUTH AT BEDTIME AND GIVE 1 TABLET BY MOUTH TWO TIMES A DAY NEEDED active Not Available Not Available No t Available oxycodone 5 mg tablet Take 1 tablet [...] /min 96 % 96 % FRIEDA ANDERSON [address] [place] [address], [place], [address], [facility] 4 16:00:47 Date Recorded Body height Systolic blood pressure Diastolic blood pressure Provider Name and Address Organization Details Last Updated DateTime 11/25/2024 165.1 cm 129 mm[Hg] 73 mm[Hg] Rex Bass MD [address] [place] [address], [place], [address], [facility] 11/25/2024 11:53:24 Date Recorded Body height Body temperature Heart rate Respiratory rate Systolic blood pressure Diastolic blood pressure Provider Name and Address Organization Details Last Updated DateTime 5 165.1 cm 97.4 [degF] 84 /min 18 /min 142 mm[Hg] 70 mm[Hg] Rex Bass MD [address] [facility], [address], [place], [address], [facility] 5 09:39:14 Social History Question Answer Notes LastModified by Organizat ion Details LastModified Time Tobacco Smoking Status Former Smoker quit 30 yrs ago FRIEDA ANDERSON [address] [facility], [address], [place], [address], [facility] 10/24/2023 14:39:11 Do You Have An Advance Directive? Yes Information not available 10/24/2023 What Is Your Level Of Caffeine Consumption? Occasional Information not available 10/24/2023 What Is Your Code Status? DNR/DNI Information not available 10/24/2023 [facility], Had Been Living At [facility] Information not available 04/13/2024 Legal Guardian? No Informati on not available 10/24/2023 Do You Have A Medical Power Of Corporate Communications Associate? Yes Information not available 10/24/2023 What Was [...] You Smoke? No Information not available 04/13/2024 Has Tobacco Cessation Counseling Been Provided? No Information not available 10/24/2023 Sex: Unknown Functional Status Question Answer Note LastModified by Organizat ion Details LastModified Time How many times per week do you consume alcohol? 5-7 times per week Information not available 10/24/2023 Do you use any illicit or recreational drugs? No Information not available 10/24/2023 Do you or have you ever used any other forms of tobacco or nicotine? No Information not available 10/24/2023 What is your level of alcohol consumption? Occasional glass of wine daily Information not available 10/24/2023 Mental Status None recorded. Family History Nothing Reported Notes:n/c Medical History No medical history recorded. Gynecological HistoryNo gynecological history recorded. Obstetrics History GPAL:G 0 P 0 0 0 0 Immunizations Vaccine Type Date Status Note Provider Nam e and Address Organization Details Recorded Time Tdap 2 completed Florgwen Luna [facility] 12/27/2023 11:11:29 Pneumococcal conjugate PCV 13 7 completed Flor Luna [facility] 12/27/2023 11:11:41 Influenza, adjuvanted, quadrivalent, PF 3 completed Flor Luna [facility] 12/27/2023 11:11:59 COVID-19, mRNA, LNP-S, bivalent, PF, 30 mcg/0.3 mL dose 1 completed Flor Jeremy [facility] 12/27/2023 11:12:12 COVID-19, mRNA, LNP-S, bivalent, PF, 30 mcg/0.3 mL dose 1 completed Florgwen Luna [facility] 12/27/2023 11:12:20 COVID-19, mRNA, LNP-S, bivalent, PF, 30 mcg/0.3 mL dose 1 completed Florgwen Luna [facility] 12/27/2023 11:12:29 COVID-19, mRNA, LNP-S, bivalent, PF, 30 mcg/0.3 mL dose 2 completed Florgwen Luna [facility] 12/27/2023 11:12:48 Past Encounters Encounter ID Performer Location Encounter Start Date Encounter Closed Date Diagnosis/Indication Diagnosis SNOMED-CT Code Diagnosis ICD10 Code Diagnosis Note [id number] FRIEDA ANDERSON [address] [facility] [address] [place] [address] 10/23/2023 08:21:08 10/28/2023 15:39:59 Cystitis 68808008 N30.90 With MDROInitia lly with Vanco and cefepime however cultures growing MDRO Klebsiella Started meropenem 1 g q12 for 7 days.start ed 10/19 for 7 full days of treatment to end 10/26.probi otic added Falls 594720816 R29.6 likely multifacto rial from neuropathy , frailty, arthritis and LE edemaCT negative for any fractures. CT Head/Brain W/O Contrast negativeIn itiated safety precaution per facility protocolPT /OT eval and tx. Peripheral venous insufficiency 28884140 I87.2 Venous insufficie ncy of both lower extremitie sDoppler LLE no DVT, symmetric erythema without increased warmth or tenderness , appears similar to previous picture taken, low suspicion for superimpos ed cellulitis Chronic di astolic heart failure 440274926 I50.32 preserved EFeuvolemi ctorsemide held in acute care d/t hypotensio n and bradycardi c 50'smonito r BP and need to restartmon itor weights Chronic ob structive pulmonary disease 99824522 J44.9 Albuterol Sulfate Nebulizati on Solution (2.5 MG/3ML) Q6 prnAdvair Foxnqx615- 50 mcg Q12 Restless legs 65441321 G 25.81 ROPINIRole HCl Tablet 2 MG BID Type 2 jr betes mellitus 04679187 E11.21 continue monitor glucose,Li spro SSI coverageGa bapentin Capsule 300 MG at bedtime for neuropathy pain.trama dol 25 mg q12 prn Paroxysmal atrial flutter 494640297 I48.92 not on anticoagAm iodarone HCl Tablet 200 MG dailymonit or HR Mixed anxi ety and depressive disorder 950021883 F41.8 Escitalopr am Oxalate Tablet 30 mg dailymonit or for mood and behavorial changes. Anemia of chronic disease 951302557 D63.8 Ferrous Sulfate Tablet 325 dailymonit or labs prn Hyperlipidemia 00151076 E78.5 Atorvastat in 20 mg dailymonit or labs Gastroesop hageal reflux disease 455588427 K21.9 Pantoprazo le40 mg dailymonit or for gi upset. Chronic back pain 237120 002 G89.29 tramadol 25 mg Q12 prngabapen tin 300 mg at hs Vitamin D deficiency 347 45607 E55.9 Cholecalci ferol 2000 UNIT daily Pain of right wrist 3169 231405 41597 M25.531 x-ray was ordered which was negative.P T/OT eval and tx Bradycardia 90169945 R00 .1 in acute care HR as low as 40snormal VA/QRS/QTc prolongati on..T nonspecifi c isolated T wave inversions on single lead V2 were present on recent study from 07/19/2023 . No evidence of acute ischemic changes. Chronic ki dney disease 052197051 N18.9 Renal function is at baselinemo nitor labsavoid nephrotoxi c drugs Asthenia 05927572 R53.1 hx of multiple fallsambul ates with walkerPT/O T eval and treat [id number] Naomi Todd MD [address] [place] [address] 10/24/2023 16:17:28 11/06/2023 11:12:59 Cystitis 08211985 N30.00 Continue meropenem 1 g q 12 hrs to complete 7 d course on 10/26.Monit or for recurrent sxs. Falls 377197900 R29.6 Likely multifacto rial from neuropathy , frailty, arthritis and LE edemaVery deconditio christoph.Needs PT/OT for strengthen ing, balance, gait training, safety and function.C ontinue fall precaution s.Monitor for safety. Peripheral venous insufficiency 39004547 I87.2 Almost at baseline per pt.Continu e local care and elevation. Chronic di astolic heart failure 340777459 I50.32 Appears euvolemic. Monitor for need for diuretics. Monitor resp. status, fluid status, wts and labs. Chronic ob structive pulmonary disease 41602394 J43.8 No current sxs.Contin ue Advair 250/50 BID and albuterol nebs q 6 hrs prnMonitor resp status. Restless legs 69442255 G 25.81 Continue ropinirole 2 mg BIDMonitor sxs. Type 2 jr betes mellitus 66124201 E11.21 Diet controlled .Sugar <150 yest, not checked previously .Continue gabapentin 300 MG qhs and tramadol q 12 hrs prn for neuropathy Monitor fingerstic ks BID x 1 wk with SSI, d/c if not needing coverage. Paroxysmal atrial flutter 673140241 I48.92 Rate in good control on amiodarone 200 mg qdNot on AC due to age and fall riskMonito r HR Mixed anxi ety and depressive disorder 421037214 F41.8 Mood down today due to concerns about living situation. Continue escitalopr am 30 mg qdMonitor mood.Consu lt psych prn Anemia of chronic disease 574959449 D63.8 Continue FeSO4 325 mg qd with vitamin C 250 mg qd for absorption .Monitor labs Hyperlipidemia 23405737 E78.49 Continue atorvastat in 20 mg qdMonitor labs yearly Gastroesop hageal reflux disease 464695818 K21.9 No current sxs.Contin ue pantoprazo le 40 mg qdMonitor sxs Chronic ki dney disease 865324753 N18.9 In hx, but renal function WNL yest.Cindy nue to avoid nephrotoxi c meds as able.Monit or labs.Renal consult prn. Chronic back pain 869215 002 G89.29 Continue tramadol 25 mg q 12 hrs prn and gabapentin 300 mg qhsMonitor sxs. [id number] FRIEDA ANDERSON [address] [place] [address] [place] [address] 10/29/2023 07:42:54 11/01/2023 08:26:34 Cystitis 91657753 N30.90 With MDROInitia lly with Vanco and cefepime however cultures growing MDRO Klebsiella Started meropenem 1 g q12 for 7 days.start ed 10/19 for 7 full days of treatment to end 10/26.- completed denies any dysuriapro biotic added Falls 576653648 R29.6 continue to work with PT/OT for strengthen inglikely multifacto rial from neuropathy , frailty, arthritis and LE edemaCT negative for any fractures. CT Head/Brain W/O Contrast negativeIn itiated safety precaution per facility protocol Peripheral venous insufficiency 93147370 I87.2 BLE edema left greater than right Venous insufficie ncy of both lower extremitie sDoppler LLE no DVT, symmetric erythema without increased warmth or tenderness , appears similar to previous picture taken, low suspicion for superimpos ed cellulitis Chronic di astolic heart failure 282720734 I50.32 preserved EFeuvolemi ctorsemide held in acute care d/t hypotensio n and bradycardi c 50'smonito r BP and need to restartmon itor weights Chronic ob structive pulmonary disease 11729064 J44.9 Albuterol Sulfate Nebulizati on Solution (2.5 MG/3ML) Q6 prnAdvair Dsqagl584- 50 mcg Q12 Restless legs 17430081 G 25.81 ROPINIRole HCl Tablet 2 MG BID Type 2 jr betes mellitus 43535598 E11.21 continue monitor glucose,Li spro SSI coverageGa bapentin Capsule 300 MG at bedtime for neuropathy pain.trama dol 25 mg q12 prn Paroxysmal atrial flutter 379095330 I48.92 not on anticoagAm iodarone HCl Tablet 200 MG dailymonit or HR Mixed anxi ety and depressive disorder 434712593 F41.8 Escitalopr am Oxalate Tablet 30 mg dailymonit or for mood and behavorial changes. Anemia of chronic disease 266238774 D63.8 Ferrous Sulfate Tablet 325 dailymonit or labs prn Hyperlipidemia 78187846 E78.5 Atorvastat in 20 mg dailymonit or labs Gastroesop hageal reflux disease 264508236 K21.9 Pantoprazo le40 mg dailymonit or for gi upset. Chronic back pain 578313 002 G89.29 tramadol 25 mg Q12 prngabapen tin 300 mg at hs Vitamin D deficiency 347 34869 E55.9 Cholecalci ferol 2000 UNIT daily Pain of right wrist 3169 999778 01033 M25.531 x-ray was ordered which was negative.P T/OT eval and tx Bradycardia 13783822 R00 .1 in acute care HR as low as 40snormal VA/QRS/QTc prolongati on..T nonspecifi c isolated T wave inversions on single lead V2 were present on recent study from 07/19/2023 . No evidence of acute ischemic changes. Chronic ki dney disease 049910484 N18.9 Renal function is at baselinemo nitor labsavoid nephrotoxi c drugs Asthenia 24595603 R53.1 hx of multiple fallsambul ates with walkerPT/O T eval and treat [id number] FRIEDA ANDERSON [address] [address] 11/01/2023 08:04:11 11/06/2023 11:37:03 Cystitis 02963412 N30.90 With MDROInitia lly with Vanco and cefepime however cultures growing MDRO Klebsiella Started meropenem 1 g q12 for 7 days.start ed 10/19 for 7 full days of treatment to end 10/26.- completed denies any dysuriapro biotic added Pruritus of vagina 44545 003 L29.3 Reports vaginal itchiness for over [...] BID for 7 days and re eval. [id number] FRIEDA ANDERSON [address] [address] 11/04/2023 12:13:42 11/06/2023 12:50:39 Falls 605342975 R29.6 see/HPiwit nessed fallwith injury/lac eration above left eye.no LOC Facial laceration 137479 008 S01.81XA above left eye/about 2 cm in lengthblee ding controlled , wrapped in gauze dressing. [id number] FRIEDA ANDERSON [address] [address] 11/06/2023 09:19:58 11/13/2023 12:17:34 Falls 050263584 R29.6 see/HPiwit nessed fallwith injury/lac eration above left eye.no LOCContinu e PT/OT Facial laceration 585872 008 S01.81XA above left eye/about 2 cm in lengthappe ars to be about 10-12 small dissolvabl e sutures in placedenie s any visual changes or headache.n ursing to monitor healing Pruritus of vagina 27218 003 L29.3 Reports vaginal itchiness for over [...] days and re eval. Chronic back pain 625994 002 G89.29 denies any new discomfort post falltramad ol 25 mg Q12 prngabapen tin 300 mg at hs Asthenia 07233086 R53.1 hx of multiple fallsambul ates with walkerPT/O T continue [id number] FRIEDA ANDERSON [address] [place] [address] 11/08/2023 13:54:21 11/13/2023 13:10:32 Falls 479178262 R29.6 on 11/04/23wit nessed fallwith injury/lac eration above left eye.no LOCContinu e PT/OT Facial laceration 378016 008 S01.81XA above left eye/about 2 cm in lengthappe ars to be about 10-12 small di-solvabl e sutures in placedenie s any visual changes or headache.n ursing to monitor healing Pruritus of vagina 04714 003 L29.3 Reports vaginal itchiness for over [...] assure med is applied. Chronic back pain 979493 002 G89.29 denies any new discomfort post falltramad ol 25 mg Q12 prngabapen tin 300 mg at hs Asthenia 43493526 R53.1 hx of multiple fallsambul ates with walkerPT/O T continue [id number] [facility] [address] [place] [address] 11/13/2023 10:59:21 11/15/2023 09:29:54 Falls 412947864 R29.6 on 11/04/23wit nessed fallwith injury/lac eration above left eye.no LOCContinu e PT/OT Facial laceration 048931 008 S01.81XA healingabo ve left eye/about 2 cm in lengthappe ars to be about 10-12 small di-solvabl e sutures in placedenie s any visual changes or headache.n ursing to monitor healing Pruritus of vagina 45984 003 L29.3 improving, continues with triamcinol one topical cream BID Chronic back pain 381356 002 G89.29 denies any new discomfort post falltramad ol 25 mg Q12 prngabapen tin 300 mg at hs Asthenia 00743720 R53.1 hx of multiple fallsambul ates with walkerPT/O T continues [id number] FRIEDA ANDERSON [address] [address] 11/18/2023 07:58:48 11/21/2023 13:26:13 Falls 008927959 R29.6 on 11/04/23wit nessed fallwith injury/lac eration above left eye.no LOCContinu e PT/OT Facial laceration 988804 008 S01.81XA healingabo ve left eye/about 2 cm in lengthappe ars to be about 10-12 small di-solvabl e sutures in placedenie s any visual changes or headache.n ursing to monitor healing Pruritus of vagina 72759 003 L29.3 improving, continues with triamcinol one topical cream BID Chronic back pain 563306 002 G89.29 denies any new discomfort post falltramad ol 25 mg Q12 prngabapen tin 300 mg at hs Asthenia 06395545 R53.1 hx of multiple fallsambul ates with walkerPT/O T continues [id number] FRIEDA ANDERSON [address] [address] 11/21/2023 13:49:57 11/25/2023 12:31:48 Falls 145168384 R29.6 on 11/04/23wit nessed fallwith injury/lac eration above left eye.no LOCContinu e PT/OT Facial laceration 153885 008 S01.81XA 11/04 s/p fall for laceration above left eye.healin g no s/sx of infectiona rolan left eye/about 2 cm in lengthappe ars to be about 10-12 small di-solvabl e sutures in placedenie s any visual changes or headache.n ursing to monitor healing Pruritus of vagina 81172 003 L29.3 improving, continues with triamcinol one topical cream BID Chronic back pain 219513 002 G89.29 denies any new discomfort post falltramad ol 25 mg Q12 prngabapen tin 300 mg at hs Asthenia 75201613 R53.1 hx of multiple fallsambul ates with walkerPT/O T continues [id number] FRIEDA ANDERSON [address] [address] 11/26/2023 07:45:18 11/28/2023 10:55:36 Falls 256848390 R29.6 on 11/04/23wit nessed fallwith injury/lac eration above left eye.no LOCContinu e PT/OT Facial laceration 493758 008 S01.81XA 11/04 s/p fall for laceration above left eye.healin g no s/sx of infectiona rolan left eye/about 2 cm in lengthappe ars to be about 10-12 small di-solvabl e sutures in placedenie s any visual changes or headache.n ursing to monitor healing Pruritus of vagina 04350 003 L29.3 triamcinol one topical cream BIDkeep area clean and dry. Chronic back pain 979951 002 G89.29 tramadol 25 mg Q12 prngabapen tin 300 mg at hs Asthenia 75161949 R53.1 hx of multiple fallsambul ates with walkerPT/O T continues [id number] FRIEDA ANDERSON [address] [address] 11/29/2023 08:06:37 12/03/2023 11:20:10 Falls 592142130 R29.6 on 11/04/23wit nessed fallwith injury/lac eration above left eye.no LOCContinu e PT/OT Facial laceration 712468 008 S01.81XA healed11/04 s/p fall for laceration above left eye.above left eye/about 2 cm in lengthdeni es any visual changes or headache. Pruritus of vagina 18288 003 L29.3 triamcinol one topical cream BIDkeep area clean and dry. Chronic back pain 659669 002 G89.29 tramadol 25 mg Q12 prngabapen tin 300 mg at hs Asthenia 55453750 R53.1 hx of multiple fallsambul ates with walkerPT/O T continues [id number] FRIEDA ANDERSON [address] [address] 12/04/2023 07:53:49 12/10/2023 10:21:37 Falls 906318874 R29.6 on 11/04/23wit nessed fallwith injury/lac eration above left eye.no LOCContinu e PT/OT Facial laceration 819804 008 S01.81XA healed11/04 s/p fall for laceration above left eye.above left eye/about 2 cm in lengthdeni es any visual changes or headache. Pruritus of vagina 89570 003 L29.3 triamcinol one topical cream BIDkeep area clean and dry. Chronic back pain 778359 002 G89.29 tramadol 25 mg Q12 prngabapen tin 300 mg at hs Asthenia 88739472 R53.1 hx of multiple fallsambul ates with walkerPT/O T continues Cellulitis of right lower limb 7442213199 5946247 L03.115 see hpistarted keflex on 11/30/23 for 7 days with probiotic for 10 daysencour aged to elevated lower extremitie s to elevate edemamonit or for resolution [id number] FRIEDA ANDERSON [address] [place] [address] 12/11/2023 10:06:59 12/13/2023 13:01:47 Falls 610818648 R29.6 no recent falls reported Facial laceration 534001 008 S01.81XA healed11/04 s/p fall for laceration above left eye.above left eye/about 2 cm in lengthdeni es any visual changes or headache. Pruritus of vagina 73047 003 L29.3 triamcinol one topical cream BIDkeep area clean and dry. Chronic back pain 782456 002 G89.29 tramadol 25 mg Q12 prngabapen tin 300 mg at hs Cellulitis of right lower limb [id number] 0871271 L03.115 resolved. [id number] FRIEDA ANDERSON [address] [address] 12/18/2023 09:20:38 12/20/2023 14:10:33 Chronic diastolic heart failure 235094608 I50.32 preserved EFeuvolemi ctorsemide held in acute care d/t hypotensio n and bradycardi c 50'smonito r BP and need to restartmon itor weights Mixed anxi ety and depressive disorder [id number] F41.8 stable and pleasantEs citalopram Oxalate Tablet 30 mg dailymonit or for mood and behavorial changes. Type 2 jr betes mellitus 86641843 E11.21 continue monitor glucose,Li spro SSI coverageGa bapentin Capsule 300 MG at bedtime for neuropathy pain.trama dol 25 mg q12 prn [id number] FRIEDA ANDERSON [address] [address] 12/25/2023 11:16:29 12/30/2023 16:09:32 Chronic diastolic heart failure 236222963 I50.32 preserved EFBLE +1was on torsemide but was d/c in acute caremonito r weights- [facility] to [facility] Mixed anxi ety and depressive disorder 298560468 F41.8 stable and pleasantEs citalopram Oxalate Tablet 30 mg dailymonit or for mood and behavorial changes. Type 2 jr betes mellitus 93609993 E11.21 continue monitor glucose,Li spro SSI coverageGa bapentin Capsule 300 MG at bedtime for neuropathy pain.trama dol 25 mg q12 prn [id number] MD DARRIN Perry [address] [address] 12/26/2023 19:19:22 01/31/2024 14:21:17 Cystitis 49881991 N30.00 Completed course of meropenem 1 g q 12 hrs on 10/26.Monit or for recurrent sxs. Falls [id number] R29.6 Continues to be a high fall risk and needs CG and sometimes an assist for transfers. No longer getting acute PT/OT services, restart as able.Cindy nue fall precaution s.Monitor for safety. Peripheral venous insufficiency 11803780 I87.2 No current sxs.Contin ue local care and elevation. Chronic di astolic heart failure 174290349 I50.32 Appears euvolemic. Monitor for need for diuretics. Monitor resp. status, fluid status, wts and labs. Chronic ob structive pulmonary disease 30090705 J43.8 Continues with no sxs.Contin ue Advair 250/50 BID and albuterol nebs q 6 hrs prnMonitor resp status. Type 2 jr betes mellitus 65272610 E11.21 Sugars were all <150 when checked for 3 days.Cindy nue gabapentin 300 MG qhs and tramadol q 12 hrs prn for neuropathy Monitor fingerstic ks prn and HgA1C q 3-6 months Paroxysmal atrial flutter 269279948 I48.92 Rate remains in good control on amiodarone 200 mg qdNo AC due to age and fall riskMonito r HR Restless legs 65147716 G 25.81 Continue ropinirole 2 mg BIDMonitor sxs. Mixed anxi ety and depressive disorder 487667325 F41.8 Mood stableCont inue escitalopr am 30 mg qdMonitor mood.Consu lt psych prn Anemia of chronic disease 265456165 D63.8 Hgb has been stable.Con tinue FeSO4 325 mg qd with vitamin C 250 mg qd for absorption .Monitor labs Hyperlipidemia 65212579 E78.49 Continue atorvastat in 20 mg qdMonitor labs yearly Gastroesop hageal reflux disease 978488821 K21.9 No current sxs.Contin ue pantoprazo le 40 mg qdMonitor sxs Chronic ki dney disease 946429311 N18.1 Renal function remains WNLContinu e to avoid nephrotoxi c meds as able.Monit or labs.Renal consult prn. Chronic back pain 714339 002 G89.29 Continue tramadol 25 mg q 12 hrs prn and gabapentin 300 mg qhsMonitor sxs. [id number] FRIEDA ANDERSON JENSEN [address] [place] [address] 01/01/2024 08:18:43 01/06/2024 15:39:22 Chronic diastolic heart failure 956553317 I50.32 preserved EFBLE +1was on [facility]semide [facility]- [facility] weight Mixed anxi ety and depressive disorder 236827136 F41.8 stable and pleasantEs citalopram Oxalate Tablet 30 mg dailymonit or for mood and behavorial changes. Type 2 jr betes mellitus 96293253 E11.21 continue monitor glucose,Li spro SSI coverageGa bapentin Capsule 300 MG at bedtime for neuropathy pain.trama dol 25 mg q12 prn Spasm 20824130 R25.2 12/31/23 nursing reported pt was having left upper leg/buttoc k pain/spasm tramadol changed from q12 to q6 and robaxin 500 mg q 6 prn addedtoday pt states that medication was effectivew ill monitor for worsening sx [id number] FRIEDA ANDERSON [address] [place] [phone] 01/08/2024 13:26:41 01/10/2024 11:20:05 Chronic diastolic heart failure 451559151 I50.32 no weight gain notedconti nue furosemide 10 mg dailymonit or labs , weightsmon itor for cardiopulm onary sx Mixed anxi ety and depressive disorder 997645677 F41.8 continue Escitalopr am Oxalate Tablet 30 mg dailymonit or for mood and behavorial changes. Type 2 jr betes mellitus 18830128 E11.21 continue monitor glucose,co ntinue Lispro SSI coverageco ntinue Gabapentin Capsule 300 MG at bedtime for neuropathy pain.cindy nue tramadol 50 mg q 8 prn Spasm 84077707 R25.2 to LLE and glutealpai n has improvedRo baxin 500 mg discontinu e -it was ordered for short term use onlycontin ue tramadol 50 mg prn [id number] FRIEDA ANDERSON [address] [address] 01/15/2024 09:55:29 01/27/2024 16:00:52 Cervical radiculopathy 99275602 M54.12 start diclofenac gel daily and q8 prncontinu e tramadol 50 mg Q6 prncontinu e gabapentin 300 mg at hs add 300 mg QDrefer to physical therapy for eval and tx [id number] FRIEDA ANDERSON [address] [address] 01/22/2024 09:25:19 01/28/2024 11:32:54 Cervical radiculopathy 38481193 M54.12 continue diclofenac gel daily and q8 prncontinu e tramadol 50 mg Q6 prncontinu e gabapentin 300 mg at hs add 300 mg QDper therapy patient neck pain is chronic and she was previously treated and recommende d Chronic di astolic heart failure 132067649 I50.32 monitor labs , weights , edemamonit or for cardiopulm onary sxencourag ed leg elevation/ wraps as needed. Gastroesop hageal reflux disease 946111642 K21.9 Pantoprazo le40 mg dailymonit or for gi upset. Mixed anxi ety and depressive disorder 596201010 F41.8 continue Escitalopr am Oxalate Tablet 30 mg dailymonit or for mood and behavorial changes. Type 2 jr betes mellitus 89556416 E11.21 continue monitor glucose,co ntinue Lispro SSI coverageco ntinue Gabapentin Capsule 300 MG at bedtime for neuropathy pain.cindy nue tramadol 50 mg q 8 prn [id number] FRIEDA ANDERSON [address] [address] 01/27/2024 10:53:32 02/17/2024 12:46:54 Cervical radiculopathy 70138481 M54.12 continue diclofenac gel daily and q8 prncontinu e tramadol 50 mg Q6 prncontinu e gabapentin 300 mg at hs add 300 mg QD Chronic di astolic heart failure 195568718 I50.32 monitor labs , weights , edemamonit or for cardiopulm onary sxencourag ed leg elevation/ wraps as needed. Gastroesop hageal reflux disease 708812907 K21.9 Pantoprazo le40 mg dailymonit or for gi upset. Mixed anxi ety and depressive disorder 197235044 F41.8 continue Escitalopr am Oxalate Tablet 30 mg dailymonit or for mood and behavorial changes. Type 2 rj betes mellitus 88000570 E11.21 bgl have been stablecont inue monitor glucose,co ntinue Lispro SSI coverageco ntinue Gabapentin Capsule 300 MG at bedtime for neuropathy pain.cindy nue tramadol 50 mg q 8 prn Falls 633443331 R29.6 no recent fallsConti nues to be a high fall risk and needs CG and sometimes an assist for transfers. she has reduce functional mobility to left lower extremity due to pain in her ankle.Alba ent would benefit from an AFO to provide support to LLE/ankle and reduce pain. [id number] FRIEDA ANDERSON [address] [address] 01/30/2024 10:23:09 02/04/2024 14:43:29 Bleeding from nose 445456642 R04.0 see hpistart afrin 2 spray to right nares q12 x 5days.janice loera for recurrence monitor BP/rebound congestion [id number] FRIEDA ANDERSON [address] [address] 02/05/2024 09:31:19 02/11/2024 09:17:30 Bleeding from nose 890918507 R04.0 resolved. Cervical radiculopathy 33894207 M54.12 continue diclofenac gel daily and q8 prncontinu e tramadol 50 mg Q6 prncontinu e gabapentin 300 mg at hs add 300 mg QDper therapy patient neck pain is chronic and she was previously treated and recommende d Chronic di astolic heart failure 843048332 I50.32 monitor labs , weights , edemamonit or for cardiopulm onary sxencourag ed leg elevation/ wraps as needed. Gastroesop hageal reflux disease 909061126 K21.9 Pantoprazo le40 mg dailymonit or for gi upset. Mixed anxi ety and depressive disorder 420331786 F41.8 continue Escitalopr am Oxalate Tablet 30 mg dailymonit or for mood and behavorial changes. Type 2 jr betes mellitus 58150072 E11.21 continue monitor glucose,co ntinue Lispro SSI coverageco ntinue Gabapentin Capsule 300 MG at bedtime for neuropathy pain.cindy nue tramadol 50 mg q 8 prn [id number] Naomi Todd MD [address] [address] 02/28/2024 13:56:25 03/10/2024 11:09:37 Pain in left foot 5800498552 10698 M79.672 With new deformity of left great [...] q 8 hrs prn for pain. Diarrhea 79366276 R19.7 Only has happened one time so far, possibly from stress.Ord ered imodium prnMonitor [id number] FRIEDA ANDERSON [address] [address] 03/04/2024 14:57:51 03/10/2024 11:43:05 Pain in left foot 7305018586 51169 M79.672 deformity of left great toe, with [...] for pain. Blister of toe without infection 37843548 S90.425A continue warm soaks as aboveclean se left 2nd toe with soap and warm water, hydrogen peroxideap ply petroleum and cover with gauze or non stick dressing daily and prnmonitor for healing. [id number] FRIEDA ANDERSON [address] [place] [address] 03/06/2024 14:42:26 03/10/2024 12:16:05 Mixed anxiety and depressive disorder 407942588 F41.8 continue Escitalopr am Oxalate Tablet 30 mg dailywill adjust trazodone and increased from 12.5 mg to 25 mg scheduled at HS per psych rec.and continue prn trazodone 12.5 mg bid prn, anxiety for 14 days.monit or for mood and behavorial changes. [id number] FRIEDA ANDERSON [address] [place] [address] 03/10/2024 10:17:01 03/16/2024 15:45:17 Pain in left foot 9270958365 13171 M79.672 deformity of left great toe, with [...] possible.c ontinue Gauze between toes to protect.Po peteyry consult, if health drive not coming next week, will consult Dr. Tanner [phone] can have wound care see her for further advice- will be seen by wound on ontinu e APAP 650 mg q 6 hrs prn and tramadol 50 mg q 8 hrs prn for pain.she does not have hx of gout but will order uric acid d/t her still having pain despite abx use for 4 days. Blister of toe without infection 85238822 S90.425A continue warm soaks as aboveclean se left 2nd toe with soap and warm water, hydrogen peroxidedr essing changes to Alginate/D CD QD [id number] FRIEDA ANDERSON [address] [place] [address] 03/16/2024 09:19:11 03/19/2024 16:19:43 Pain in left foot 8992224626 30681 M79.672 baseline deformity due to hammer toeabx [...] infection. Mixed anxi ety and depressive disorder 288402104 F41.8 continue Escitalopr am Oxalate Tablet 30 mg dailyrepor ts although medication s have been helpful that she continues with difficultl y falling asleepand evening anxiety.in creased trazodone to 25 mg at HScontinue trazodone to 12.5 mg q12 prnmonitor for mood and behavorial changes. [id number] FRIEDA ANDERSON [address] [place] [phone] 03/17/2024 10:40:42 03/20/2024 08:44:03 Bleeding from nose 680575306 R04.0 minor nasal bleeding after blowing her nosewill discussed avoiding nose blowing, gently sniff insteadavo id picking nose or rubbing noseafrin nasal 1 spray BID prnsaline nasal spray BID Pain of to e of left foot 7090571685 80371 M79.675 reports pain to left great toe and second great toenailini tially flinching on exam when toe(s) were touched , states pain requesting toenail to be cut on 2ndshe provided clippers, I trimmed and file all toenail, she reports toes feeling much betterther e was no observatio n of facial grimacing, flinching or pulling away during procedure. [id number] MD DARRIN Perry [address] [place] [phone] 03/30/2024 16:40:06 04/01/2024 10:48:39 Falls 001455897 R29.6 Continues to be a high fall risk.Getti OT for mobility and safety, primarily wheelchair level.Cont inue fall precaution s.Monitor for safety. Peripheral venous insufficiency 87515815 I87.2 No current sxs.Contin ue local care and elevation. Chronic di astolic heart failure 071608732 I50.32 Appears euvolemic. Continue furosemide 10 mg qdMonitor resp. status, fluid status, wts and labs. Chronic ob structive pulmonary disease 21078114 J43.8 Continues with no sxs.Contin ue Advair 250/50 BID and albuterol nebs q 6 hrs prnMonitor resp status. Type 2 jr betes mellitus 57980348 E11.21 Stable on no meds.Last HgA1C was 6.1 in 06/2023.Con tinue gabapentin 300 MG qhs and tramadol qhs scheduled and BID prn for neuropathy Monitor fingerstic ks prn and HgA1C q 3-6 months Paroxysmal atrial flutter 247118692 I48.92 Rate remains in good control on amiodarone 200 mg qdNo AC due to age and fall riskMonito r HR Restless legs 45512918 G 25.81 Continue ropinirole 2 mg BIDMonitor sxs. Mixed anxi ety and depressive disorder 325857379 F41.8 Mood sl. down due to pain not improving. Continue escitalopr am 30 mg qdMonitor mood.Consu lt psych prn Anemia of chronic disease 633506040 D63.8 Hgb remains stable.Con tinue FeSO4 325 mg qd with vitamin C 250 mg qd for absorption .Monitor labs Hyperlipidemia 00356375 E78.49 Continue atorvastat in 20 mg qdMonitor labs yearly Gastroesop hageal reflux disease 988072009 K21.9 No current sxs.Contin ue pantoprazo le 40 mg qdMonitor sxs Chronic ki dney disease 127243666 N18.2 Renal function remains stableCont inue to avoid nephrotoxi c meds as able.Monit or labs.Renal consult prn. Chronic back pain 032536 002 G89.29 Continue meds as above.Janice tor sxs. Bleeding from nose 70570 6005 R04.0 Resolved. Pain of to e of left foot 8534394887 82773 M79.675 No improvemen t since toenails cut on 03/17.Left 2nd toe still red and tender.Esteban l have nursing set up appt with Dr. Lu Holder who has offices in [facility] and [place]. [place] # is [phone] local care until then. Using padding between toes to keep the pressure off.Monito r for signs of infection. Will schedule hs tramadol and keep 50 mg BID prn [id number] [facility]ERSON [facility] [address] [place] [address] [place] [phone] 04/03/2024 11:03:23 04/28/2024 07:31:02 Cellulitis of foot 225542364 L03.119 left footsuspec gloria do to sx.recentl y treated for cellulitis left great toe with doxycyclin ewill start cephalexin 250 mg Q 6 hr for 5 days.will add probiotic BID for 7 daysmonito r for resolution . [id number] Naomi Todd MD [facility] [address] [place] [address] [place] [address] 04/13/2024 17:19:14 04/28/2024 08:01:43 Osteomyelitis 96328967 M86.272 Continue ertapenem 1 gm IV qd [...] Dr. Lu Holder who has offices in [facility] and [place]. Luis Adrian # is Falls [id number] R29.6 Continues to be a high fall risk.Able to restart rehab after hospitaliz ation.Need s PT/OT for strengthen ing, balance, gait training, safety and function.C ontinue fall precaution s.Monitor for safety. Chronic di astolic heart failure 203896351 I50.32 Appears euvolemic. Continue furosemide 10 mg qdMonitor resp. status, fluid status, wts and labs. Chronic ob structive pulmonary disease 15115687 J43.8 Continues with no sxs.Contin ue Advair 250/50 BID and albuterol nebs q 6 hrs prnMonitor resp status. Type 2 jr betes mellitus 87697882 E11.21 Sugars inpt were all <100Last HgA1C was 6.1 in 06/2023.Con tinue gabapentin 300 MG qhs and other pain meds as above for neuropathy .Monitor fingerstic ks prn and HgA1C q 3-6 months Paroxysmal atrial flutter 588801038 I48.92 Rate remains in good control on amiodarone 200 mg qdNo AC due to age and fall riskMonito r HR Restless legs 25194629 G 25.81 Continue ropinirole 2 mg BIDMonitor sxs. Mixed anxi ety and depressive disorder 557353939 F41.8 Mood sl. down due to pain not improving. Continue escitalopr am 30 mg qd, trazadone 25 mg qhs and 12.5 mg BID prn.Monito r mood.Consu lt psych prn Anemia of chronic disease 762650250 D63.8 Hgb remains stable.Con tinue FeSO4 325 mg qd with vitamin C 250 mg qd for absorption .Monitor labs Hyperlipidemia 29937322 E78.49 Continue atorvastat in 20 mg qdMonitor labs yearly Gastroesop hageal reflux disease 504786187 K21.9 No current sxs.Contin ue pantoprazo le 40 mg qdMonitor sxs Chronic ki dney disease 066213082 N18.2 Renal function remains stableCont inue to avoid nephrotoxi c meds as able.Monit or labs.Renal consult prn. Chronic back pain 643745 002 G89.29 Continue meds as above.Janice tor sxs. Peripheral venous insufficiency 93950249 I87.2 No current sxs.Contin ue local care and elevation. [id number] FRIEDA ANDERSON [facility] [address] [place] [address] rd JESSE BROUSSARD [address] 04/16/2024 08:54:52 04/28/2024 08:26:12 Osteomyelitis 97993557 M86.272 Continue ertapenem 1 gm IV qd until ontin ue probiotic BIDContinu e local care as ordered.Mo nitor labs (CBC, CMP, ESR, and CRP weekly until 8/12) and skin condition. Continue pain control with tramadol 50 mg qhs and BID prn, oxycodone 5 mg q 6 hrs prn and APAP 650 mg q 6 hrs prn.To be followed by wound care.Julio César caed f/u with Dr. Lu Holder who has offices in [facility] and [place]. [place] # is Falls [id number] R29.6 Continues to be a high fall risk.Able to restart rehab after hospitaliz ation.Need s PT/OT for strengthen ing, balance, gait training, safety and function.C ontinue fall precaution s.Monitor for safety. Chronic di astolic heart failure 820926432 I50.32 Appears euvolemic. Continue furosemide 10 mg qdMonitor resp. status, fluid status, wts and labs. Chronic ob structive pulmonary disease 38537028 J43.8 Continues with no sxs.Contin ue Advair 250/50 BID and albuterol nebs q 6 hrs prnMonitor resp status. Paroxysmal atrial flutter 343778381 I48.92 Rate remains in good control on amiodarone 200 mg qdNo AC due to age and fall riskMonito r HR Restless legs 37023262 G 25.81 Continue ropinirole 2 mg BIDMonitor sxs. Mixed anxi ety and depressive disorder 678104228 F41.8 Continue escitalopr am 30 mg qd, trazadone 25 mg qhs and 12.5 mg BID prn.Monito r mood.Consu lt psych prn Anemia of chronic disease 379709720 D63.8 Continue FeSO4 325 mg qd with vitamin C 250 mg qd for absorption .Monitor labs Hyperlipidemia 65994476 E78.49 Continue atorvastat in 20 mg qdMonitor labs yearly Gastroesop hageal reflux disease 832796316 K21.9 No current sxs.Contin ue pantoprazo le 40 mg qdMonitor sxs [id number] FRIEDA ANDERSON [address] [place] [address] 04/20/2024 10:04:50 04/28/2024 08:59:08 Osteomyelitis 53749244 M86.272 left foot 2nd toe with woundgrima [...] Dr. Lu Holder who has offices in [facility] and [place]. [place] # is Chronic di astolic heart failure 059120459 I50.32 Appears euvolemic. Continue furosemide 10 mg qdMonitor resp. status, fluid status, wts and labs. Chronic ob structive pulmonary disease 36059674 J43.8 breathing easy and unlabored. Continue Advair 250/50 BID and albuterol nebs q 6 hrs prnMonitor resp status. Mixed anxi ety and depressive disorder 082917239 F41.8 her mood is normal reports eating and drinking ok.Continu e escitalopr am 30 mg qd, trazadone 25 mg qhs and 12.5 mg BID prn.Monito r mood.Consu lt psych prn [id number] Naomi Todd MD [address] [address] 04/23/2024 22:13:47 04/30/2024 18:09:13 Osteomyelitis 23257567 M86.272 Continue ertapenem 1 gm IV qd [...] Lu Holder's office again. Has offices in [facility] and [place]. [place] # is Falls [id number] R29.6 Is still a high fall risk.Needs PT/OT for strengthen ing, balance, gait training, safety and function.C ontinue fall precaution s.Monitor for safety. Chronic di astolic heart failure 908848605 I50.32 Remains euvolemic. Continue furosemide 10 mg qdMonitor resp. status, fluid status, wts and labs. Chronic ob structive pulmonary disease 82080575 J43.8 Continues with no sxs.Contin ue Advair 250/50 BID and albuterol nebs q 6 hrs prnMonitor resp status. Type 2 jr betes mellitus 78707352 E11.21 Sugars were all good, so not being checked regularly. Last HgA1C was 6.1 in 06/2023.Con tinue gabapentin 300 MG qhs and other pain meds as above for neuropathy .Monitor fingerstic ks prn and HgA1C q 3-6 months [id number] GOLDIE TREVIZO JENSEN [address] [place] [address] 04/30/2024 08:46:54 05/02/2024 09:31:27 Osteomyelitis 99911155 M86.272 left foot 2nd toe with wound, [...] wound care.cindy greene with wound care treatment carltonstef neumann f/u with Dr. Lu Holder who has offices in [facility], [place] and [place]. [place] # is Chronic di astolic heart failure 410513450 I50.32 Appears euvolemic. Continue furosemide 10 mg qdMonitor resp. status, fluid status, wts and labs. Chronic ob structive pulmonary disease 25359823 J43.8 breathing easy and unlabored. Continue Advair 250/50 BID and albuterol nebs q 6 hrs prnMonitor resp status. Mixed anxi ety and depressive disorder 018742873 F41.8 her mood is normal reports eating and drinking ok.Continu e escitalopr am 30 mg qd, trazadone 25 mg qhs and 12.5 mg BID prn.Monito r mood.Consu lt psych prn Gastroesop hageal reflux disease 534458436 K21.9 Reporting some nausea after eating, unsure if may be related to abx use. Discused with nsg., will monitor.Co ntinue pantoprazo le 40 mg qdMonitor sxs Restless legs 74227167 G 25.81 Continue requip, very helpful Headache 12402075 R51.9 history of, including migraines, for years.Most headaches in the forehead area and above eyes.APAP discussed, helps, would like it sched. if possible.Eloy iscussaarti beaversg. who also feels it would be a good idea, so will sched. 650 mg tid.Monito r. [id number] FRIEDA ANDERSON [address] [place] [phone] 05/05/2024 11:02:17 05/06/2024 15:43:52 Osteomyelitis 70454455 M86.272 left foot 2nd toe with wound, [...] Dr. Lu Holder who has offices in [facility], [place] and [place]. [place] # is Chronic di astolic heart failure 410098856 I50.32 Appears euvolemic. Continue furosemide 10 mg qdMonitor resp. status, fluid status, wts and labs. Chronic ob structive pulmonary disease 43282981 J43.8 breathing easy and unlabored. Continue Advair 250/50 BID and albuterol nebs q 6 hrs prnMonitor resp status. Mixed anxi ety and depressive disorder 989368686 F41.8 her mood is normal reports eating and drinking ok.Continu e escitalopr am 30 mg qd, trazadone 25 mg qhs and 12.5 mg BID prn.Monito r mood.Consu lt psych prn Gastroesop hageal reflux disease 734822195 K21.9 Continue pantoprazo le 40 mg qdMonitor sxs Restless legs 27221796 G 25.81 Continue requip, very helpful Headache 24459861 R51.9 history of, including migraines, for years.Most headaches in the forehead area and above eyes.APAP discussed, helps, would like it sched. if possible.Eloy mo. who also feels it would be a good idea, so will sched. 650 mg tid.Monito r. [id number] FRIEDA ANDERSON [address] [place] [address] [place] [address] 05/07/2024 10:05:01 05/11/2024 16:11:56 Osteomyelitis 92986915 M86.272 Continue ertapenem 1 gm IV qd [...] Dr. Lu Holder who has offices in [facility], [place] and [place]. [place] # is Chronic di astolic heart failure 741845695 I50.32 Appears euvolemic. Continue furosemide 10 mg qdMonitor resp. status, fluid status, wts and labs. Chronic ob structive pulmonary disease 33596724 J43.8 breathing easy and unlabored. Continue Advair 250/50 BID and albuterol nebs q 6 hrs prnMonitor resp status. Mixed anxi ety and depressive disorder 596210492 F41.8 Continue escitalopr am 30 mg qd, trazadone 25 mg qhs and 12.5 mg BID prn.Monito r mood.Consu lt psych prn Gastroesop hageal reflux disease 204883836 K21.9 Continue pantoprazo le 40 mg qdMonitor sxs Restless legs 78467137 G 25.81 Continue requip, very helpful Headache 73302456 R51.9 continue tylenol 650 mg prn.encour age to increase oral hydration. [id number] FRIEDA ANDERSON [address] [address] 05/11/2024 16:30:45 05/12/2024 13:09:07 Osteomyelitis 72954908 M86.272 Has been tolerating IV therapy.Co ntinue [...] wound care.cindy greene with wound care treatment ordersstef ld f/u with Dr. Lu Holder who has offices in [facility], [place] and [place]. [place] # is Chronic di astolic heart failure 826174338 I50.32 euvolemic. Continue furosemide 10 mg qdMonitor resp. status, fluid status, wts and labs. Chronic ob structive pulmonary disease 12211020 J43.8 Continue Advair 250/50 BID and albuterol nebs q 6 hrs prnMonitor resp status. Mixed anxi ety and depressive disorder [id number] F41.8 Continue escitalopr am 30 mg qd, trazadone 25 mg qhs and 12.5 mg BID prn.mood is good today. pleasant on exam.Monit or moodConsul t psych prn Gastroesop hageal reflux disease 639312648 K21.9 Continue pantoprazo le 40 mg qdMonitor sxs Restless legs 63864400 G 25.81 Continue requip 2 mg bid Headache 02663143 R51.9 continue tylenol 650 mg prn.encour age to increase oral hydration. [id number] FRIEDA ANDERSON [address] [address] 05/15/2024 10:17:08 05/19/2024 11:08:19 Osteomyelitis 49377401 M86.272 Has been tolerating IV therapy.Co ntinue ertapenem 1 gm IV qd until ontin ue probiotic BIDContinu e local care as ordered.Mo nitor labs (CBC, CMP, ESR, and CRP weekly until 05/18) and skin condition. Chronic di astolic heart failure 969652644 I50.32 euvolemic. Continue furosemide 10 mg qdMonitor resp. status, fluid status, wts and labs. Chronic ob structive pulmonary disease 65867591 J43.8 Continue Advair 250/50 BID and albuterol nebs q 6 hrs prnMonitor resp status. Mixed anxi ety and depressive disorder 341660786 F41.8 Continue escitalopr am 30 mg qd, trazadone 25 mg qhs and 12.5 mg BID prn.mood is good today. pleasant on exam.Monit or moodConsul t psych prn Gastroesop hageal reflux disease 281926779 K21.9 Continue pantoprazo le 40 mg qdthere has been no reported GI upset. Restless legs 64811041 G 25.81 Continue requip 2 mg bid Headache 86511898 R51.9 continue tylenol 650 mg prn.encour age to increase oral hydration. [id number] FRIEDA ANDERSON [address] [place] [id number] 05/18/2024 08:44:49 05/19/2024 11:16:27 [facility] [id number] M86.272 completed abxcontinu e probiotic BIDContinu e local care as ordered.f/ u appt. with ID later today Chronic di astolic heart failure 988945669 I50.32 stableCont inue furosemide 10 mg qdMonitor resp. status, fluid status, wts and labs. Chronic ob structive pulmonary disease 29942565 J43.8 breathing easy and unlabored. Continue Advair 250/50 BID and albuterol nebs q 6 hrs prnMonitor resp status. Mixed anxi ety and depressive disorder 363510947 F41.8 Continue escitalopr am 30 mg qd, trazadone 25 mg qhs and 12.5 mg BID prn.Monito r moodConsul t psych prn Gastroesop hageal reflux disease 019746980 K21.9 Continue pantoprazo le 40 mg qdthere has been no reported GI upset. Restless legs 84748269 G 25.81 Continue requip 2 mg bid Headache 94743189 R51.9 continue tylenol 650 mg prn.encour age to increase oral hydration. [id number] FRIEDA ANDERSON [address] [address] 05/25/2024 09:58:25 05/29/2024 09:27:36 Osteomyelitis 61331451 M86.272 completed abx Chronic di astolic heart failure 040058339 I50.32 euvolemicC ontinue furosemide 10 mg qdMonitor resp. status, fluid status, wts and labs. Chronic ob structive pulmonary disease 20742459 J43.8 breathing easy and unlabored. Continue Advair 250/50 BID and albuterol nebs q 6 hrs prnMonitor resp status. 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 Restless legs 30723714 G 25.81 Continue requip 2 mg bid Headache 64469206 R51.9 continue tylenol 650 mg prn.encour age to increase oral hydration. [id number] FRIEDA ANDERSON [address] [address] 06/01/2024 09:58:25 06/03/2024 09:34:34 Osteomyelitis 78824157 M86.272 completed abx Chronic di astolic heart failure 080793145 I50.32 euvolemicC ontinue furosemide 10 mg qdMonitor resp. status, fluid status, wts and labs. Chronic ob structive pulmonary disease 49218746 J43.8 breathing easy and unlabored. Continue Advair 250/50 BID and albuterol nebs q 6 hrs prnMonitor resp status. Mixed anxi ety and depressive disorder 435911992 F41.8 mood is stableCont inue escitalopr am 30 mg qd, trazadone 25 mg qhs and 12.5 mg BID prn.Monito r moodConsul t psych prn [id number] FRIEDA ANDERSON [address] [place] [address] 06/03/2024 11:42:59 06/09/2024 13:21:42 Osteomyelitis 70943992 M86.272 completed abx Chronic di astolic heart failure 734598864 I50.32 euvolemicC ontinue furosemide 10 mg qdMonitor resp. status, fluid status, wts and labs. Chronic ob structive pulmonary disease 69175161 J43.8 breathing easy and unlabored. Continue Advair 250/50 BID and albuterol nebs q 6 hrs prnMonitor resp status. Mixed anxi ety and depressive disorder 335660482 F41.8 mood is stableCont inue escitalopr am 30 mg qd, trazadone 25 mg qhs and 12.5 mg BID prn.Monito r moodConsul t psych prn [id number] FRIEDA ANDERSON [address] [place] [address] 06/09/2024 10:12:41 06/11/2024 14:30:47 Osteomyelitis 43083852 M86.272 06/09:clinic ally she is stableleft foot [...] dry and apply bacitracin with DCD BID. [id number] FRIEDA ANDERSON [address] [place] [address] 06/11/2024 11:46:23 06/15/2024 11:21:06 Osteomyelitis 24382108 M86.272 06/09:clinic ally she is stableleft foot [...] a second consult with ortho. appt 06/18/24. [id number] [facility] [address] [place] [address] [place] [address] 06/15/2024 09:48:35 06/17/2024 10:12:04 Osteomyelitis 79158457 M86.272 06/09:clinic ally she is stableleft foot [...] appt 06/18/24. Chronic di astolic heart failure 430813077 I50.32 euvolemicw eight stableCont inue furosemide 10 mg qdMonitor resp. status, fluid status, wts and labs. Chronic ob structive pulmonary disease 55749881 J43.8 breathing easy and unlabored. Continue Advair 250/50 BID and albuterol nebs q 6 hrs prnMonitor resp status. [id number] FRIEDA ANDERSON [address] [facility] [address] [place] [address] 06/22/2024 08:47:12 06/24/2024 08:50:27 Osteomyelitis 97851157 M86.272 06/09:clinic ally she is stableleft foot [...] gaines. Mixed anxi ety and depressive disorder 695579393 F41.8 mood is stablerece nt room change transition to LTC, adjusting well. Most of the women she joins at activities reside on same unit, she is happy about this.Cindy nue escitalopr am 30 mg qd, trazadone 25 mg qhs and 12.5 mg BID prn.Monito r moodConsul t psych prn [id number] FRIEDA ANDERSON [facility] JENSEN [address] [place] [address] [place] [address] 06/29/2024 10:45:15 06/30/2024 13:34:02 Osteomyelitis 06775371 M86.272 06/09:clinic ally she is stableleft foot [...] ortho. Mixed anxi ety and depressive disorder 351963581 F41.8 mood is stablerece nt room change transition to LTC, adjusting well. Most of the women she joins at activities reside on same unit, she is happy about this.Cindy nue escitalopr am 30 mg qd, trazadone 25 mg qhs and 12.5 mg BID prn.Monito r moodConsul t psych prn Chronic di astolic heart failure 191758599 I50.32 euvolemicw eight stable noted 166-168Con tinue furosemide 10 mg qdMonitor resp. status, fluid status, wts and labs. [id number] FRIEDA ANDERSON DARRIN STYLES [address] [place] [address] [place] [phone] 07/02/2024 11:07:08 07/03/2024 12:50:28 Mixed anxiety and depressive disorder 348922172 F41.8 mood is stable- she denies feeling hopeless, lonely or isolated.C ontinue escitalopr am 30 mg qd, trazadone 25 mg qhs and 12.5 mg BID prn.Monito r mood for negative changes.pt encouraged to continue to engage in social activities .Consult psych prn Chronic di astolic heart failure 537961954 I50.32 euvolemic- she denies any chest pain or shortness of breathweig ht stable noted 166-168Con tinue furosemide 10 mg qdMonitor resp. status, fluid status, wts and labs. Hammer toe 660133284 M20 .42 left foot 2 nd toe-recent ly completed IV antibiotic s ertapenem 1 gm daily for 6 weeks for osteomyeli tis. she continues to have discomfort . follow up xray results: no acute abnormalit y is seen in the left foot. [id number] FRIEDA ANDERSON DARRIN JENSEN [address] [place] [phone] 07/07/2024 14:44:04 07/08/2024 11:39:59 Hammer toe 804409547 M20.42 left foot 2 nd toe-recent ly completed IV antibiotic s ertapenem 1 gm daily for 6 weeks for osteomyeli tis. she continues to have discomfort . follow up xray results: no acute abnormalit y is seen in the left foot. Mixed anxi ety and depressive disorder 566738343 F41.8 mood is stable- she denies feeling hopeless, lonely or isolated.C ontinue escitalopr am 30 mg qd, trazadone 25 mg qhs and 12.5 mg BID prn.Monito r mood for negative changes.pt encouraged to continue to engage in social activities .followed by psych prn recently seen 07/06 no new recommenda tion. Chronic di astolic heart failure 061588891 I50.32 euvolemic- she denies any chest pain or shortness of breathweig ht stable noted 166-168Con tinue furosemide 10 mg qdMonitor resp. status, fluid status, wts and labs. [id number] FRIEDA ANDERSON [facility] [address] [place] [address] 07/13/2024 08:31:31 07/14/2024 11:43:51 Hammer toe 734097808 M20.42 07/13:stabl e, no worsening sx notedleft foot 2 nd toe-recent ly completed IV antibiotic s ertapenem 1 gm daily for 6 weeks for osteomyeli tis. she continues to have discomfort . follow up xray results: no acute abnormalit y is seen in the left foot. Mixed anxi ety and depressive disorder 809204555 F41.8 07/13: StableCont inue escitalopr am 30 mg qd, trazadone 25 mg qhs and 12.5 mg BID prn.Monito r mood for negative changes.pt encouraged to continue to engage in social activities .followed by psych prn recently seen 07/06 no new recommenda tion. Chronic di astolic heart failure 629289803 I50.32 07/13: stable.euv olemic- she denies any chest pain or shortness of breathweig ht stable noted 166-168Con tinue furosemide 10 mg qdMonitor resp. status, fluid status, wts and labs. [id number] FRIEDA ANDERSON JENSEN [address] [place] [phone] 07/16/2024 10:15:02 07/21/2024 15:43:58 Hammer toe 646996720 M20.42 07/13:stabl e, no worsening sx notedleft foot 2 nd toe-recent ly completed IV antibiotic s ertapenem 1 gm daily for 6 weeks for osteomyeli tis. she continues to have discomfort . follow up xray results: no acute abnormalit y is seen in the left foot. Mixed anxi ety and depressive disorder 532133627 F41.8 Stable with delusional thoughts, she thinks staff is stealing her clothes.Co ntinue escitalopr am 30 mg qd, trazadone 25 mg qhs and 12.5 mg BID prn.Monito r mood for negative changes.pt encouraged to continue to engage in social activities .followed by psych prn recently seen 07/06 no new recommenda tion. Chronic di astolic heart failure 049784707 I50.32 stable.euv olemic- she denies any chest pain or shortness of breathweig ht stable noted 166-168Con tinue furosemide 10 mg qdMonitor resp. status, fluid status, wts and labs. [id number] FRIEDA ANDERSON [address] [place] [address] 07/20/2024 11:57:24 07/21/2024 16:08:03 Hammer toe 818929484 M20.42 stable, no worsening sx notedleft foot 2 nd toe-recent ly completed IV antibiotic s ertapenem 1 gm daily for 6 weeks for osteomyeli tis. she continues to have discomfort . follow up xray results: no acute abnormalit y is seen in the left foot. Mixed anxi ety and depressive disorder 709522226 F41.8 07/19: seen by psych coordinator will review notes when available. Stable with delusional thoughts, she thinks staff is stealing her clothes.Co ntinue escitalopr am 30 mg qd, trazadone 25 mg qhs and 12.5 mg BID prn.Monito r mood for negative changes.pt encouraged to continue to engage in social activities .followed by psych prn recently seen 07/06 no new recommenda tion. Chronic di astolic heart failure 597288854 I50.32 stable.euv olemic- she denies any chest pain or shortness of breathweig ht stable noted 166-168Con tinue furosemide 10 mg qdMonitor resp. status, fluid status, wts and labs. [id number] FRIEDA ANDERSON [facility] [address] [place] [phone] 07/23/2024 11:46:33 07/24/2024 11:44:07 Hammer toe 293174050 M20.42 stable, no worsening sx notedleft foot 2 nd toe-recent ly completed IV antibiotic s ertapenem 1 gm daily for 6 weeks for osteomyeli tis. she continues to have discomfort . follow up xray results: no acute abnormalit y is seen in the left foot. Mixed anxi ety and depressive disorder 277945098 F41.8 StableCont inue escitalopr am 30 mg qd, trazadone 25 mg qhs and 12.5 mg BID prn.Monito r mood for negative changes.pt encouraged to continue to engage in social activities .followed by psych prn recently seen 07/06 no new recommenda tion. Chronic di astolic heart failure 322436138 I50.32 stable.euv olemic- she denies any chest pain or shortness of breathweig ht stable noted 166-168Con tinue furosemide 10 mg qdMonitor resp. status, fluid status, wts and labs. Chronic ob structive pulmonary disease 30006885 J43.8 breathing easy and unlabored. Continue Advair 250/50 BID and albuterol nebs q 6 hrs prnMonitor resp status. [id number] FRIEDA ANDERSON [address] [address] 09/10/2024 08:43:17 09/11/2024 12:05:09 Mixed anxiety and depressive disorder 793425161 F41.8 mild emotional distress, crying during assessment 11/08 ble painContin ue escitalopr am 30 mg qd, trazadone 25 mg qhs and 12.5 mg BID prn.psych prn Chronic di astolic heart failure 674120797 I50.32 euvolemic- she denies any chest pain or shortness of breathweig ht stableCont inue furosemide 20 mg qdMonitor resp. status, fluid status, wts and labs. Chronic ob structive pulmonary disease 43914209 J43.8 breathing easy and unlabored. Continue Advair 250/50 BID and albuterol nebs q 6 hrs prnMonitor resp status. Neuropathy 538401142 G62 .9 see hpiBLE without sx of infectiono n gabapentin 300 mg at hs -she has been having increasing sx and weakness, requiring 2 people assist.dis cussed increasing gabapentin to BID and re eval in a few days for effect.hx diabetes/n ot on meds/ will get updated A1c. (06/2023 noted 6.1) Restless legs 42702825 G 25.81 Continue requip 2 mg bid [id number] FRIEDA ANDERSON [address] [address] 09/14/2024 10:23:24 09/15/2024 14:23:56 Neuropathy 274563972 G62.9 BLE without sx of infectiong abapentin 300 mg BIDshe has been having increasing sx and weakness, requiring 2 people assist.hx diabetes/n ot on meds/ will get updated A1c. (06/2023 noted 6.1) - labs ord for today not completed will re-order. Restless legs 30410156 G 25.81 Continue requip 2 mg bid [id number] FRIEDA ANDERSON [facility] [address] [place] [address] [place] [address] 10/02/2024 11:01:09 10/05/2024 13:31:21 Pain of left ankle joint 7957231228 0755806 M25.572 localizedn on pitting left ankle swelling, no redness or warmthno foot discolorat ion, color is normal+CMS , pain with ROMplan for xray, labs with uric acid,apply ice 15 minutes to ankle TIDapply tyrone wrap compressio n dailywill schedule tylenol 650 mg TID and Motrin 400 mg BIDPT/OT eval and tx [id number] FRIEDA ANDERSON [address] [address] 10/05/2024 11:01:37 10/06/2024 13:54:09 Pain of left ankle joint 8348416879 4228997 M25.572 localized/ swelling noted to have improved [...] BIDPT/OT eval and tx Contusion of thigh 81196 003 S70.10XA see hpi/left thightende r to touchmonit or as it healsdiscu ssed with nursingcon tinue scheduled tylenol [id number] MD DARRIN Roe [address] [place] [address] [place] [address] 11/25/2024 11:52:19 11/26/2024 15:26:27 Acute low back pain 514789704 M54.59 acute on chronic low back pain with point tenderness lumbar spinex ray to eval for concern vert comp fxx ray left hipchange tramadol 50 mg to q 6 prnmonitor need for ortho eval Chronic di astolic heart failure 427815727 I50.32 euvolemic- she denies any chest pain or shortness of breathweig ht stableCont inue furosemide 20 mg qdMonitor resp. status, fluid status, wts and labs. Chronic ob structive pulmonary disease 95340120 J43.8 monitor respirator y status and albuterol utilizatio n Gastroesop hageal reflux disease 813796966 K21.9 protonix 40 mg qdmonitor sx control [id number] MD DARRIN Roe [address] [place] [phone] 12/14/2024 09:37:44 12/16/2024 09:41:40 Sepsis 68380326 A41.89 see HPInow to complete course ofcefuroxi me 500 mg bidadd probiotic bidmonitor for recurrent infection Toxic meta bolic encephalopathy 734408837 G92.8 increased confusion at hospital is currently A and O x 3 with poor short term recall Asthenia 46620729 R53.1 therapy to re-evaluat e to determine baseline Cardiac en zymes outside reference range 424546464 R89.0 eval by cards now onasa 81 mg qdlipitor 40 mg qdmonitor sx Essential hypertension 26026855 I10 lasix 20 mg qd prn for weight gain associated with chfstarted on norvasc 2.5 mg qdmonitor bp and need to titrate Chronic di astolic heart failure 879003209 I50.32 Continue furosemide 20 mg qd prn weight gain Paroxysmal atrial flutter 500418519 I48.3 amiodarone 200 mg qdmonitor rate control Impaired cognition 28510 6002 R41.89 question of poor insight prior to above infectionb eing eval by psych for competency evalwill await recs [id number] MD DARRIN Roe [address] [place] [address] [place] [address] 01/06/2025 11:35:48 01/08/2025 08:30:51 Toxic metabolic encephalopathy 123606878 G92.8 see aboveincre ased confusion at hospital is currently A and O x 3 with poor short term recallnow invokedmon itor level of insight Impaired cognition 73176 6002 R41.89 appreciate psych eval and recswill invoke HCPmonitor level of insight as patient is alert and oriented to person place and time which she states easily Asthenia 59701091 R53.1 coordinate with therapymon itor fall risk [id number] MALKAJAMES GOFF, RUBBING BED OPERATOR [facility] [address] [place] [address] [place] [phone] 01/13/2025 11:16:32 01/20/2025 11:19:42 Chronic diastolic heart failure 164706606 I50.32 stable, euvolemic- she denies any chest pain or shortness of breathweig ht stable 160-170Con tinue furosemide 20 mg qdMonitor resp. status, fluid status, wts and labs. Chronic ob structive pulmonary disease 87452934 J43.8 stablemoni tor respirator y status and albuterol utilizatio n Gastroesop hageal reflux disease 609174808 K21.9 protonix 40 mg qdmonitor sx control Mixed anxi ety and depressive disorder 651061867 F41.8 mood stable.Con tinue escitalopr am 30 mg qd, trazadone 25 mg qhs and 12.5 mg BID prn.psych prn Restless legs 82186113 G 25.81 StableCont inue requip 2 mg bid Impaired cognition 71506 6002 R41.89 appreciate psych eval and recsHCP invoked.mo nitor level of insight as patient is alert and oriented to person place and time which she states easily Toxic meta bolic encephalopathy 137676705 G92.8 see aboveincre ased confusion at hospital is currently A and O x 3 with poor short term recallnow invokedmon itor level of insight Asthenia 57533497 R53.1 coordinate with therapymon itor fall risk Respirator y syncytial virus infection 87888869 B33.8 No acute respirator y distress noted.Cont inue supportive care.Monit or respirator y status. Health Concerns Section Related Observation LastModified by Organization Detai ls LastModified Time None Recorded Concern Status LastModified by Organization Details LastModified Time None Recorded Advance Directives Directive Y: Payers Encounter Date Sequence Insurance Name Policy Number Policy Anders Covered Member ID Anders Member ID Guarantor Name 10/05/2024 1 [place] [employer] Shreya M Gravel [id number] Shreya Gravel 10/05/2024 2 [place] [id number] Shreya Gravel [id number] Shreya Gravel 11/25/2024 1 [place] Shreya M Gravel [id number] Shreya Gravel 11/25/2024 2 [place] [id number] Shreya Gravel [id number] Shreya Gravel 12/14/2024 1 [place] [place] Shreya M Gravel [id number] Shreya Gravel 12/14/2024 2 [place] [id number] Shreya Gravel [id number] Shreya Gravel 01/06/2025 1 [place] [employer] Shreya M Gravel [id number] Shreya Gravel 01/06/2025 2 [place] [id number] Shreya Gravel [id number] Shreya Gravel 01/13/2025 1 [place] [place] Shreya M Gravel [id number] Shreya Gravel 01/13/2025 2 [place] [id number] Shreya Gravel [id number] Shreya Gravel Notes Date Note Type Note Provider Name and Address Organization Details Recorded Time 10/05/2024 text/html This is a 89 yr [...] depression, anxiety, LLE cellulitis. FRIEDA ANDERSON [address] [facility], [address], [place], [address], [facility] 10/05/2024 16:22:00 11/25/2024 text/html Patient is a 89 yo female resident due for routine rounding also seen for acute rounding with complaint of chronic pain. PMH chf, a flutter, gerd, anemia, copd, chronic pain Rex Bass MD [address] [facility], [address], [place], [address], [facility] 11/25/2024 12:03:07 12/14/2024 text/html Patient is [...] underlying cognitive impairment Rex Bass MD [address] [facility], [address], [place], [address], [facility] 12/14/2024 10:00:50 01/06/2025 text/html Patient is [...] belong throughout day. Rex Bass MD [address] [facility], [address], [place], [address], [facility] 01/06/2025 11:42:10 01/13/2025 text/html Shreya is an 89 yo female LTC resident seen for annual visit. She recently admitted to hospital altered mental status and elevated temp. While at hospital developed hypotension started on IVF and pressor support, then improved and required norvasc 2.5 mg. Noted UTI, dx with sepsis. Thrombocytopenia felt due to sepsis. Was eval by cards for elevated cardiac enzymes started on low dose asa and increased statin dose. Noted metabolic encephalopathy in underlying cognitive impairment Pt was noted with intermittent cough with congestion, and tested positive for RSV. She had mild fever this morning, and Tylenol given. On exam today to eval patient is alert and confused as her baseline. No respiratory distress noted, breathing easy, and unlabored. Pt's O2 sat 97% on RA. Pt reports tiredness today. She is eating and drinking ok, denies any issues with elimination. PMH of hypertension, hyperlipidemia, CAD,CABG, HF, atrial flutter, COPD, T2DM,neuropathy, CKD stage II, GERD, restless leg syndrome, depression, anxiety, LLE cellulitis. DANIELLE GOFF CNP [address] [facility], [address], [place], [address], [facility] 01/13/2025 11:53:02 OBGyn Episode No OBEpisode recorded.
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
[2025-02-15 06:59] LABS: Basophils Percent Auto 0.6 % (0-2); Eosinophils Absolute Auto 0.2 X10*3/uL (0.0-0.4); Eosinophils Percent Auto 3.9 % (0-4); Hematocrit 38.5 % (37.0-47.0); Hemoglobin 12.5 g/dl (12.0-16.0); Imm Gran Abs Auto 0.01 X10*3/uL (0.00-0.03); Imm Gran Pct Auto 0.2 % (0.0-0.4); Lymphocytes Absolute Auto 1.7 X10*3/uL (1.2-4.9); Lymphocytes Percent Auto 33.9 % (20-40); Mean Corpuscular HGB Conc 32.5 g/dl (31.0-35.0); Mean Corpuscular Hemoglobin 32.6 pg (27.0-33.0); Mean Corpuscular Volume 100.5 fL (80.0-98.0); Monocytes Absolute Auto 0.4 X10*3/uL (0.1-1.2); Monocytes Percent Auto 8.6 % (2-11); Neutrophils Absolute Auto 2.6 x10*3/uL (2.0-8.3); Neutrophils Percent Auto 52.8 % (45-73); Platelet Count 181 X10*3/uL (160-400); Red Blood Count 3.83 X10*6/uL (4.20-5.50); Red Cell Distribution Width 13.6 % (11.0-16.0); White Blood Count 4.9 X10*3/uL (4.8-10.8)
[2025-02-15 07:01] LABS: Anion Gap 12 (12-20); Blood Urea Nitrogen 24 mg/dL (9-16); Calcium 9.1 mg/dL (8.4-10.2); Carbon Dioxide 23 mmol/L (22-29); Chloride 107 mmol/L (96-108); Estimated Glomerular Filt Rate > 60; Glucose Random 84 mg/dL (60-115); Sodium 138 mmol/L (135-145)
== END 2025-02-15 06:16 | disposition home or self-care (01) ==
LOC: HO.MMNH3L 06:15
PROVIDERS: Visit Provider Student in an Organized Health Care Education/Training Program
DX: I48.92 Unspecified atrial flutter (principal)
CPT/HCPCS: 36415; 80048; 85025

== ENCOUNTER 2025-03-08 05:51 | Outpatient (REF) | payer MEDICARE, MEDICAID, SELFPAY ==
[2025-03-08 05:47] LABS: MANUAL DIFF FLAG NO
--- OUTSIDE RECORDS SUMMARY | 2025-03-08 05:53 | XMS_ITS | Clinical Summary ---
Author Organization [facility] Address [address] [place] [address] Phone Care Team Providers Care Booking Officer Name Role Phone Rex Bass MD Primary Care Provider [phone] Allergies Active Allergy Reactions Criticality Noted Date [...] Problem Noted Date Diagnosed Date Atrial flutter ([facility] V24, [facility] V28) 2021 Overview (08/28/2024): Last Assessment & [...] HISTORICAL CHOLECYSTECTOMY OTHER SURGICAL HISTORY 12/14/2013 PROCEDURE: [place] EGD PARTIAL/COMPL ESOPHAGOGASTRIC FUNDOPLASTY COLONOSCOPY 02/09/2016 PROCEDURE: HISTORICAL COLONOSCOPY OTHER SURGICAL HISTORY 05/14/2013 PROCEDURE: [place] ECHO TRANSTHORAC R-T 2D W/WO M-MODE REC COMP OTHER SURGICAL HISTORY 03/13/2013 PROCEDURE: [place] CABG W/ARTERIAL GRAFT THREE ARTERIAL GRAFTS OTHER SURGICAL HISTORY 12/06/2008 PROCEDURE: [place] EGD PARTIAL/COMPL ESOPHAGOGASTRIC FUNDOPLASTY CARPAL TUNNEL RELEASE PROCEDURE: [place] NEUROPLASTY &/TRANSPOS MEDIAN NRV CARPAL TUNNE; COMMENT: [...] CMS/HCC V28) DX:Chronic obstructive pulm onary disease ([facility]) Chronic pain DX:Chronic pain Compression fracture of L1 l umbar vertebra ([facility] V24, [facility] V28) DX:Compression fra cture of L1 lumbar vertebra ([facility]); COMMENT: and t12 vertebra Degeneration macular DX:Degenera tion macular Depression DX:Depression Diabetes type 2, controlled ([facility] V24, [facility] V28) DX:Diabetes type 2, controll ed ([facility]) Diverticulitis DX:Diverticuliti s Elevated LFTs DX:Elevated LFTs [...] 2 obesi ty Osteoporosis DX:Osteoporosis Primary hyperparathyroidism ([facility] V24) DX:Primary hyperparathyroidi sm ([facility]) Recurrent falls DX:Recurrent fal ls Restless legs [...] patient's age to complete this topic Insurance [facility] MEDICAID - [place] MEDICARE Advance Directives Documents on File Type Date Recorded Patient Cotton Roll Packer Expl anation Health Care Decision (hx) 09/26/2023 AD FARNSWORTH DIRECTIVE Health Care Decision (hx) 05/09/2021 AD FARNSWORTH DIRECTIVE Health Care Decision (hx) 05/09/2021 AD FARNSWORTH DIRECTIVE Care Teams Booking Officer Relationship Specialty Start Date End Date Rex Bass MD [address] [place] [address], [phone] PCP - General 04/23/24
[2025-03-08 06:34] LABS: Basophils Percent Auto 0.4 % (0-2); Eosinophils Absolute Auto 0.2 X10*3/uL (0.0-0.4); Hematocrit 38.2 % (37.0-47.0); Hemoglobin 12.5 g/dl (12.0-16.0); Imm Gran Abs Auto 0.01 X10*3/uL (0.00-0.03); Imm Gran Pct Auto 0.2 % (0.0-0.4); Lymphocytes Absolute Auto 1.6 X10*3/uL (1.2-4.9); Mean Corpuscular HGB Conc 32.7 g/dl (31.0-35.0); Mean Corpuscular Hemoglobin 33.1 pg (27.0-33.0); Mean Corpuscular Volume 101.1 fL (80.0-98.0); Monocytes Absolute Auto 0.5 X10*3/uL (0.1-1.2); Monocytes Percent Auto 8.9 % (2-11); Neutrophils Absolute Auto 2.8 x10*3/uL (2.0-8.3); Neutrophils Percent Auto 55.5 % (45-73); Platelet Count 194 X10*3/uL (160-400); Red Blood Count 3.78 X10*6/uL (4.20-5.50); Red Cell Distribution Width 13.2 % (11.0-16.0)
[2025-03-08 06:42] LABS: Anion Gap 12 (12-20); Blood Urea Nitrogen 24 mg/dL (9-16); Calcium 9.1 mg/dL (8.4-10.2); Carbon Dioxide 23 mmol/L (22-29); Chloride 110 mmol/L (96-108); Estimated Glomerular Filt Rate > 60; Glucose Random 88 mg/dL (60-115); Sodium 141 mmol/L (135-145)
== END 2025-03-08 05:52 | disposition home or self-care (01) ==
LOC: HO.MMNH3L 05:51
PROVIDERS: Visit Provider Student in an Organized Health Care Education/Training Program
DX: I48.92 Unspecified atrial flutter (principal)
CPT/HCPCS: 36415; 80048; 85025

== ENCOUNTER 2025-04-05 07:47 | Outpatient (REF) | payer MEDICARE, MEDICAID, SELFPAY ==
[2025-04-05 06:32] LABS: MANUAL DIFF FLAG NO
[2025-04-05 06:53] LABS: Basophils Percent Auto 0.4 % (0-2); Eosinophils Absolute Auto 0.2 X10*3/uL (0.0-0.4); Eosinophils Percent Auto 3.7 % (0-4); Hematocrit 37.1 % (37.0-47.0); Hemoglobin 12.1 g/dl (12.0-16.0); Imm Gran Abs Auto 0.02 X10*3/uL (0.00-0.03); Imm Gran Pct Auto 0.4 % (0.0-0.4); Lymphocytes Absolute Auto 1.4 X10*3/uL (1.2-4.9); Lymphocytes Percent Auto 29.1 % (20-40); Mean Corpuscular HGB Conc 32.6 g/dl (31.0-35.0); Mean Corpuscular Hemoglobin 32.5 pg (27.0-33.0); Mean Corpuscular Volume 99.7 fL (80.0-98.0); Mean Platelet Volume 10.1 fL (9.4-12.3); Monocytes Absolute Auto 0.4 X10*3/uL (0.1-1.2); Monocytes Percent Auto 8.9 % (2-11); Neutrophils Absolute Auto 2.8 x10*3/uL (2.0-8.3); Neutrophils Percent Auto 57.5 % (45-73); Platelet Count 181 X10*3/uL (160-400); Red Blood Count 3.72 X10*6/uL (4.20-5.50); Red Cell Distribution Width 13.3 % (11.0-16.0); White Blood Count 4.9 X10*3/uL (4.8-10.8)
[2025-04-05 07:21] LABS: Anion Gap 10 (12-20); Blood Urea Nitrogen 25 mg/dL (9-16); Carbon Dioxide 24 mmol/L (22-29); Chloride 110 mmol/L (96-108); Estimated Glomerular Filt Rate > 60; Glucose Random 84 mg/dL (60-115); Potassium 4.2 mmol/L (3.3-5.1); Sodium 140 mmol/L (135-145)
--- OUTSIDE RECORDS SUMMARY | 2025-04-05 07:50 | XMS_ITS | Clinical Summary ---
Author Organization [facility] Address [address] [place] [address] Phone Care Team Providers Care Chin Strap Maker Name Role Phone Rex Bass MD Primary Care Provider Allergies Active Allergy Reactions Criticality Noted Date [...] Problem Noted Date Diagnosed Date Atrial flutter ([facility] V24, [facility] V28) 2021 Overview (08/28/2024): Last Assessment & [...] HISTORICAL CHOLECYSTECTOMY OTHER SURGICAL HISTORY 12/14/2013 PROCEDURE: [place] EGD PARTIAL/COMPL ESOPHAGOGASTRIC FUNDOPLASTY COLONOSCOPY 02/09/2016 PROCEDURE: HISTORICAL COLONOSCOPY OTHER SURGICAL HISTORY 05/14/2013 PROCEDURE: [place] ECHO TRANSTHORAC R-T 2D W/WO M-MODE REC COMP OTHER SURGICAL HISTORY 03/13/2013 PROCEDURE: [place] CABG W/ARTERIAL GRAFT THREE ARTERIAL GRAFTS OTHER SURGICAL HISTORY 12/06/2008 PROCEDURE: [place] EGD PARTIAL/COMPL ESOPHAGOGASTRIC FUNDOPLASTY CARPAL TUNNEL RELEASE PROCEDURE: [place] NEUROPLASTY &/TRANSPOS MEDIAN NRV CARPAL TUNNE; COMMENT: [...] CMS/HCC V28) DX:Chronic obstructive pulm onary disease ([facility]) Chronic pain DX:Chronic pain Compression fracture of L1 l umbar vertebra ([facility] V24, [facility] V28) DX:Compression fra cture of L1 lumbar vertebra ([facility]); COMMENT: and t12 vertebra Degeneration macular DX:Degenera tion macular Depression DX:Depression Diabetes type 2, controlled ([facility] V24, [facility] V28) DX:Diabetes type 2, controll ed ([facility]) Diverticulitis DX:Diverticuliti s Elevated LFTs DX:Elevated LFTs [...] 2 obesi ty Osteoporosis DX:Osteoporosis Primary hyperparathyroidism ([facility] V24) DX:Primary hyperparathyroidi sm ([facility]) Recurrent falls DX:Recurrent fal ls Restless legs [...] - 1-dose 75+ series) 2011 Zoster Vaccines (1 of 2) 12/18/2012 10/23/2012 Cholesterol Screening (Lipid Panel) 09/15/2022 [...] patient's age to complete this topic Insurance [facility] MEDICAID - [place] MEDICARE Advance Directives Documents on File Type Date Recorded Patient Policy Loan Calculator Expl anation Health Care Decision (hx) 09/26/2023 AD FARNSWORTH DIRECTIVE Health Care Decision (hx) 05/09/2021 AD FARNSWORTH DIRECTIVE Health Care Decision (hx) 05/09/2021 AD FARNSWORTH DIRECTIVE Care Teams Chin Strap Maker Relationship Specialty Start Date End Date Rex Bass MD [address] [place] [address], [phone] PCP - General 04/23/24
== END 2025-04-05 07:48 | disposition home or self-care (01) ==
LOC: HO.MMNH3L 07:47
PROVIDERS: Visit Provider Student in an Organized Health Care Education/Training Program
DX: I48.92 Unspecified atrial flutter (principal)
CPT/HCPCS: 36415; 80048; 85025

== ENCOUNTER 2025-04-13 05:32 | Outpatient (REF) | payer MEDICARE, MEDICAID, SELFPAY ==
[2025-04-13 05:35] LABS: MANUAL DIFF FLAG NO
--- OUTSIDE RECORDS SUMMARY | 2025-04-13 05:35 | XMS_ITS | Patient Health Record ---
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 Name Role Phone Shelia DIAZ, Rex Primary Care Provider Unavailab sarahi Lu Holder Unavailable [phone] Toñito Green Unavailable [phone] Allergies No Known Allergies Reason For Referral No Information Medications Medication SIG (Take, Route, Frequency, Duration) Notes Start Date End Date Status hydroCHLOROthiazide Not-Taking iron 1 tab Oral Not-Takin g Nabumetone Not-Takin g Cephalexin 500 MG 1 capsule Orally Twice a day; Duration: 7 days Not-Taking Chondroitin Sulfate Not-Taking Fosamax [...] Vaccine Route Administration Date Status Comme nts Influenza Unknown 06/15/2015 Administered Influenza Unknown 09/19/2016 Administered Influenza Unknown 09/19/2016 Administered Influenza Unknown 07/12/2017 Administered Influenza Unknown 07/23/2018 Administered Influenza Unknown 07/22/2019 Administered Influenza Unknown 06/24/2020 Administered Influenza Unknown 07/01/2020 Administered Influenza Unknown 07/24/2022 Administered COVID-19 Pfizer BioNTech Vaccine Unknown 12/03/2020 Administered 1st vaccine 03/27 Social History Tobacco Use: Social History Observation [...] Problem Status W/U Status Risk Notes Problem Information temporarily unavailable Other hammer toe(s) (acquired), right foot (M20.41) Active confirmed Problem Information temporarily unavailable Hallux valgus (acquired), left foot (M20.12) Active confirmed Problem Information temporarily unavailable Other hammer toe(s) (acquired), left foot (M20.42) Active confirmed Problem Information temporarily unavailable Non-pressure chronic ulcer of other part of right foot limited to breakdown of skin (L97.511) Active confirmed Problem Information temporarily unavailable Venous insufficiency (chronic) (peripheral) (I87.2) Active confirmed Problem Information temporarily unavailable Non-pressure chronic ulcer of other part of left foot with fat layer exposed (L97.522) Active confirmed Problem Information temporarily unavailable Unspecified atherosclerosis of [place] arteries of extremities, bilateral legs (I70.203) Active confirmed Problem Information temporarily unavailable Non-pressure chronic ulcer of other part of left foot limited to breakdown of skin (L97.521) Active confirmed Problem Information temporarily unavailable Non-pressure chronic ulcer of other part of right foot limited to breakdown of skin (L97.511) Active confirmed Problem Information temporarily unavailable Other hammer toe(s) (acquired), right foot (M20.41) Active confirmed Problem Information temporarily unavailable Other hammer toe(s) (acquired), left foot (M20.42) Active confirmed Problem Information temporarily unavailable Type 2 diabetes mellitus with diabetic polyneuropathy (E11.42) Active confirmed Problem Information temporarily unavailable Acquired hallux interphalangeus of left foot (M20.12) Active confirmed Problem Information temporarily unavailable Atherosclerosis of artery of both lower extremities (I70.203) Active confirmed Problem Information temporarily unavailable Other chronic osteomyelitis of left foot (M86.672) Active confirmed Problem Information temporarily unavailable PlantarFlexion of metatarsal of left foot (M21.6X2) Active confirmed Vital Signs Height 5 ft 4 in in 05/22/2024 Weight 181 lbs 05/22/2024 BMI 31.07 kg/m2 05/22/2024 Procedures Procedure Date Ordered Date Performed Result Body Sit e 87201-CJUBPSV SKIN/TISSUE 05/22/2024 N/A 95170-HEYY SKIN LESIONS, 2 TO 4 05/22/2024 N/A Encounters Encounter [facility] Date [facility] [address] [address] 05/22/2024 Toñito Green Tinea unguium B35.1 ; [...] right foot M20.41 and Unspecified atherosclerosis of [place] arteries of extremities, bilateral legs I70.[address] [address] 06/09/2024 Lu Holder [address] [address] 06/10/2024 Lu Holder Assessments Encounter Date Diagnosis [...] (ICD-10 - M20.41) 05/22/2024 Unspecified atherosclerosis of [place] arteries of extremities, bilateral legs (ICD-10 - I70.203) Plan Of Treatment Pending Test Test Name Order Date X ray : Foot, right 2V 06/06/2012 05014-IRVZERA NAIL, 6 OR MORE 01/18/2012 99764-KQJPILV NAIL, 6 OR MORE 11/13/2011 13547-PKMDWUM NAIL, 6 OR MORE 08/28/2011 78646-FDBRATJ NAIL, 6 OR MORE 11/06/2012 84383-UVNRJDC NAIL, 6 OR MORE 08/22/2012 88600-RTBNVSC NAIL, 6 OR MORE 06/13/2012 63858-MKLSNRJ NAIL, 6 OR MORE 05/29/2023 37174-FHWWFJX NAIL, 6 OR MORE 06/12/2022 55303-NNMKAZH NAIL, 6 OR MORE 01/22/2023 25834-GBIMSEH NAIL, 6 OR MORE 03/27/2012 94372-HHFBRTC NAIL, 6 OR MORE 09/12/2016 94530-MSXWEWD NAIL, 6 OR MORE 05/24/2017 97445-RFURLKI NAIL, 6 OR MORE 08/06/2017 54912-AVBDQYW NAIL, 6 OR MORE 07/23/2018 33865-OHTORYY NAIL, 6 OR MORE 05/29/2019 34288-WFTVQKB NAIL, 6 OR MORE 11/11/2019 58604-UFUSECN NAIL, 6 OR MORE 05/04/2020 63812-VPKWWRR NAIL, 6 OR MORE 07/08/2020 82912-MDIVLRR NAIL, 6 OR MORE 06/20/2021 81374-TNQUNKS NAIL, 6 OR MORE 11/07/2021 80775-CJDPHLH NAIL, 6 OR MORE 01/16/2022 16646-IPDDKWZ NAIL, 6 OR MORE 03/20/2022 04018-KYYHZTF NAIL, 6 OR MORE 09/12/2022 60420-MDIXWEQ NAIL, 6 OR MORE 02/17/2021 03199-NELPWXL NAIL, 6 OR MORE 03/02/2020 68873-GRATBPX NAIL, 6 OR MORE 04/24/2018 49522-JCCNPXW NAIL, 6 OR MORE 02/04/2018 18493-TRMGOPY NAIL, 6 OR MORE 10/30/2017 22620-LUJATCL NAIL, 6 OR MORE 02/22/2017 05056-UBOKRCL NAIL, 6 OR MORE 12/05/2016 53532-LKIDMTV NAIL, 6 OR MORE 06/15/2016 53521-IMAMKKI NAIL, 6 OR MORE 02/28/2016 98959-HZQNHNB NAIL, 6 OR MORE 12/20/2015 73492-AWPMMLM NAIL, 6 OR MORE 10/18/2015 67871-QMJXXLA NAIL, 6 OR MORE 07/12/2015 94602-LGDBYVZ NAIL, 6 OR MORE 04/19/2015 18564-YKORDWR NAIL, 6 OR MORE 02/11/2015 16579-IFFMUVF NAIL, 6 OR MORE 10/26/2014 55157-ZXBCIAY NAIL, 6 OR MORE 07/22/2014 69456-ERFRXZX NAIL, 6 OR MORE 04/23/2014 66691-PFEJBYH NAIL, 6 OR MORE 01/15/2014 35834-TNQKEQV NAIL, 6 OR MORE 10/13/2013 60022-MROOJDS NAIL, 6 OR MORE 07/09/2013 72048-YQDFFHK NAIL, 6 OR MORE 05/21/2013 75665-UJXLRUS NAIL, 6 OR MORE 04/14/2013 94115-OATTAMU NAIL, 6 OR MORE 02/10/2013 85731-Kgfo Destruction, 1-05/21/2013 50482-Xrlr Destruction, -10/18/2015 05779-Gaum Destruction, -08/23/2015 22032-Indc Destruction, -12/20/2015 38007-Eflm Destruction, 10-2001/24/2016 15655-Zcma Destruction, 10-2006/15/2016 05721-Bjpr Destruction, 10-2012/05/2016 63980-Gfgt Destruction, 10-2010/24/2016 92282-Zvel Destruction, 10-2008/01/2016 79093-Shrd Destruction, 10-2007/02/2017 17322-Hisv Destruction, 10-2009/18/2019 29853-Zzsj Destruction, 10-2003/26/2017 86875-Bxpg Destruction, 10-2001/11/2021 36434-Puen Destruction, 10-2003/02/2020 29705-Eufl Destruction, 10-2008/01/2021 27793-Dvsc Destruction, 10-2010/16/2022 96975-Aapd Destruction, 10-2007/02/2023 33412-Dgmb Destruction, 10-2001/16/2022 95313-Fkfv Destruction, 10-2009/12/2022 10759-Gnjz Destruction, 10-2011/07/2021 79514-Pdiv Destruction, 10-2012/19/2021 99049-Wabm Destruction, 10-2008/23/2020 72964-Whrv Destruction, 10-2007/08/2020 44352-Bgzj Destruction, 10-2005/29/2019 35257-Enzv Destruction, 10-2005/04/2020 01552-Rpeh Destruction, 10-2007/15/2019 24655-Cgsv Destruction, 10-2011/11/2019 89424-Pqpi Destruction, 10-2005/24/2017 78751-Fpmw Destruction, 10-2007/23/2018 04425-Rvew Destruction, 10-2004/05/2016 89281-Zmma Destruction, 10-2006/12/2022 74349-Xjul Destruction, 10-2009/10/2018 79522-Odjq Destruction, 10-2001/22/2023 89601-Aebk Destruction, 14 04/14/2013 67810-Unqnailn Plate 03/04/2014 25296-Txxnocoy Plate 12/30/2012 42916-Nhzuezth Plate 09/25/2012 65923-Wcmkhitg Plate 06/13/2012 65237-Xqhdhjed Plate 08/22/2012 31493-Ugrewltd Plate 07/11/2012 87980-Jhzzhodi Plate 10/25/2011 64577-Fbwoftay Plate 01/18/2012 12142-Xlkuhwcw Plate 10/16/2011 10857-Syguysxx Plate 11/08/2011 27418-Nrcqnvpf Plate 05/09/2012 25829-Widdnwpn Plate 07/10/2011 40508-Xfztrirr Plate 08/26/2014 53765-Paepqnez Plate 03/27/2012 19295-Rfktedtj Plate 12/04/2013 32361-Bdhkjhfa Plate 08/06/2017 49683-Cufcoqtn Plate 05/29/2019 07417-Xhjalxxb Plate 07/15/2019 52277-Xwndynkh Plate 07/08/2020 03519-Yqskzmpi Plate 01/16/2022 90698-Iksgiezz Plate 11/07/2021 46116-Ugzasaab Plate 03/31/2021 74520-Dtgzxlyf Plate 06/20/2021 86372-Rsltldjn Plate 02/17/2021 63139-Glthwowd Plate 04/24/2022 11078-Lgpusmin Plate 09/18/2019 14174-Tmkxuute Plate 01/11/2021 69830-Aceyvecj Plate 03/26/2017 64115-Lkmeixoy Plate 06/15/2016 52792-Thtoriqb Plate 04/19/2015 70326-Ankjbxvc Plate 07/12/2015 87782-Gceuryts Plate 02/10/2013 99432-Pdyyysjz Plate 07/09/2013 12769-Lgtucckh Plate 09/01/2013 95673-Sqijtjbn Plate 05/31/2015 62019-Irxgkjdy Plate 04/23/2014 14378-Fcjpfugj Plate 07/22/2014 47920-Qldhgaal Plate 10/26/2014 29475-Vnrrpjfe Plate 11/25/2014 53822-Uasgfvkw Plate 02/11/2015 81760-Ctsmgdfk Plate Each Additional 91443-Mvaauekq Plate Each Additional 04/2013 51180-Jufeziyw Plate Each Additional 04/2021 97553-Ehrwwglg Plate Each Additional 79372-Yzuqkkpe Plate Each Additional 55372-Zlfvnorp Plate Each Additional 10/2021 55494-Qnzjoyyc Plate Each Additional 09/2022 71305-Pxifdgmd Plate Each Additional 11/2019 81496-Yofqpuoo Plate Each Additional 05811-Nnmiozhs Plate Each Additional 12/2011 77914-Ubwxahoj Plate Each Additional 04/2012 20308- Debride <25 sq cm 06/06/2012 96886- Debride <25 sq cm 06/13/2012 64438- Debride <25 sq cm 08/22/2012 38101- Debride <25 sq cm 09/25/2012 04485- Debride <25 sq cm 11/06/2012 09159- Debride <25 sq cm 12/30/2012 04473- Debride <25 sq cm 12/20/2011 15716- Debride <25 sq cm 08/28/2011 31393- Debride <25 sq cm 07/10/2011 44736- Debride <25 sq cm 01/22/2023 06721- Debride <25 sq cm 09/10/2018 52876- Debride <25 sq cm 06/12/2022 42994- Debride <25 sq cm 12/04/2013 56064- Debride <25 sq cm 03/27/2012 76967- Debride <25 sq cm 08/26/2014 84757- Debride <25 sq cm 03/15/2015 52507- Debride <25 sq cm 02/15/2012 78990- Debride <25 sq cm 09/12/2016 28575- Debride <25 sq cm 01/18/2017 28238- Debride <25 sq cm 05/29/2019 88736- Debride <25 sq cm 03/31/2021 84533- Debride <25 sq cm 05/04/2020 12586- Debride <25 sq cm 11/28/2021 48309- Debride <25 sq cm 03/20/2022 41076- Debride <25 sq cm 11/07/2021 87895- Debride <25 sq cm 06/20/2021 04010- Debride <25 sq cm 02/17/2021 67207- Debride <25 sq cm 08/01/2021 99780- Debride <25 sq cm 04/24/2022 92088- Debride <25 sq cm 11/13/2022 85992- Debride <25 sq cm 09/12/2022 68955- Debride <25 sq cm 07/02/2023 48179- Debride <25 sq cm 10/16/2022 79864- Debride <25 sq cm 01/11/2021 95112- Debride <25 sq cm 07/02/2017 06252- Debride <25 sq cm 10/30/2017 10175- Debride <25 sq cm 07/12/2015 92140- Debride <25 sq cm 04/19/2015 40139- Debride <25 sq cm 02/10/2013 28836- Debride <25 sq cm 05/21/2013 24638- Debride <25 sq cm 04/14/2013 83414- Debride <25 sq cm 02/11/2015 54958- Debride <25 sq cm 01/04/2015 89150- Debride <25 sq cm 11/25/2014 88621- Debride <25 sq cm 10/26/2014 07869- Debride <25 sq cm 07/22/2014 61747- Debride <25 sq cm 05/27/2014 05437- Debride <25 sq cm 04/23/2014 19904-GBEKZQU SKIN/TISSUE 03/04/2014 42067-WXJJJEG SKIN/TISSUE 01/15/2014 39680-ZVZAYVX SKIN/TISSUE 05/22/2024 36314 I&D ABSCESS- SIMPLE,SINGLE 012 43664 I&D ABSCESS- SIMPLE,SINGLE 013 71359-TFWF SKIN LESIONS, 2 TO 4 05/22/20 24 50713- Removal of Foreign Body, Subcut 1 45429-Nuipumdg Benign Lesion 0.5cm 11/08 26353-Mzqmauoi Benign Lesion 0.5cm 10/25- Ganglion Cyst Injection/Aspiratio n 01/18/2012- Ganglion Cyst Injection/Aspiratio n 07/02/2017 Future Test Test Name Order Date 08489-Bihdycdx Plate Each Additional Insurance Providers Payer Name Payer Address Payer Phone Subscriber Number Group Number Insured Name Patient Relationship to Insured Coverage Start Date Coverage End Date Medicare National [employer] [address] [place] [address] [id number] Shreya Calvert Self - patient is the insured 1 [employer] [address] [place] [address] [id number] Shreya Calvert Self - patient is the [...] Rehab 05/2024 [facility], [place]- [place] 05[place]20[place] [facility] [place] [facility] [place] 02/2023 [facility] heart issues 08/2022 [facility] Cellulitis 07/2022 [facility] [place]/20[place] [facility] stay, 3 week therap y 01/2022 [facility], rehab- fell 05/2021 [facility] for cellulitis for 5 days 9 [facility] [place]05/18 [facility] 2015 ER, tripped bumped head 08/2015 Admitted to [facility] [place];GERD 03/2015 [facility] - Emergency 11/23/14 & 11/24 Dehydration 11/2011
--- OUTSIDE RECORDS SUMMARY | 2025-04-13 05:35 | XMS_ITS | Data Portability ---
Author Organization [facility], PAIN OFFICE Address [address] [place] [address] Care Team Providers Care High [employer] Counselor Name Role Phone ABAD GONSALES Primary Care Provider [phone] GUILHERME DIAZ Referring Provider Assessment Encounter Date [...] appointment has been booked. She needs a local delivery truck driver on the day of the [...] was advised to contact her PCP . [email or web address] Not available 06/30/2021 10:01:58 07/11/2021 07/11/2021 Shreya [...] By Organization Details Last Modified Time 06/26/2021 [id number] She was advised against bed rest lasting longer than four days and to continue activities as tolerated. [email or web address] Not available 06/30/2021 10:01:24 07/11/2021 [id number] She was advised to continue with activities as tolerated [email or web address] Not available 07/11/2021 13:35:39 10/04/2021 [id number] She was advised to continue with activities as tolerated [email or web address] Not available 10/04/2021 11:55:19 12/12/2021 [id number] She was advised to continue with activities as tolerated [email or web address] Not available 12/12/2021 12:09:37 08/21/2022 [id number] She was advised to continue with activities as tolerated [email or web address] Not available 08/21/2022 10:34:48 Reason for Referral None Reported. Problems Name Problem SNOMED Code Status Onset Date Resolution Date Notes Provider Name and Address Organization Details Recorded Time Spinal stenosis of lumbar region 91243192 Active 2016 Alf adams MD [facility] [address], [facility] [place] [place], [address] [facility] [place] [facility] 7 10:55:25 Lumbosacral spondylosis without myelopathy 74355438 Active 2016 Alf adams MD [address] , [address], [place], [address], [place] [facility] 7 10:55:26 Lumbosacral radiculitis 02133493 Active 2016 Alf adams MD [address] , [address], [place], [address], [place] [facility] 7 10:55:27 Displacement of lumbar intervertebral disc without myelopathy 98382918 Active 2016 Alf adams MD [address] , [address], [place], [address], [place] [facility] 7 10:55:30 Post-herpetic neuritis 439237414 Active Alf adams MD [address] , [address], [place], [address], [place] [facility] 9 14:56:27 Inflammation of joint of shoulder region 308292528 Active Alf adams MD [address] , [address], [place], [address], [place] [facility] 9 09:39:04 Problem Notes None recorded. Procedures Surgical History Date Name Laterality Status Provider Name and Address Organization Details Recorded Time 08/21/20 22 Lumbar Epidural steroid injection under fluoroscopic guidance completed Alf Posada MD [address] , [address], [place], [address], [place] [facility] 08/21/2022 10:36:53 12/13/19 22 Lumbar Epidural steroid injection under fluoroscopic guidance completed Alf Posada MD [address] , [address], [place], [address], [place] [facility] 12/12/2021 12:09:46 10/04/20 21 Lumbar Epidural steroid injection under fluoroscopic guidance completed Alf Posada MD [address] , [address], [place], [address], [place] [facility] 10/04/2021 11:55:59 07/11/20 21 Lumbar Epidural steroid injection under fluoroscopic guidance completed Alf Posada MD [address] , [address], [place], [address], [place] [facility] 07/11/2021 13:35:45 04/11/20 21 Lumbar Epidural steroid injection under fluoroscopic guidance completed Alf Posada MD [address] , [address], [place], [address], [place] [facility] 04/11/2021 13:56:00 01/11/20 21 Lumbar Epidural steroid injection under fluoroscopic guidance completed Alf Posada MD [address] , [address], [place], [address], [place] [facility] 01/12/2021 09:57:53 09/06/20 20 Lumbar Epidural steroid injection under fluoroscopic guidance completed Alf Posada MD [address] , [address], [place], [address], [place] [facility] 09/08/2020 14:56:36 06/15/20 20 Lumbar Epidural steroid injection under fluoroscopic guidance completed Alf Posada MD [address] , [address], [place], [address], [place] [facility] 06/15/2020 14:00:13 05/23/20 20 Intra-articular shoulder steroid injection under ultrasound guidance completed Alf Posada MD [address] , [address], [place], [address], [place] [facility] 05/23/2020 15:11:49 05/11/20 19 Intra-articular shoulder steroid injection under ultrasound guidance completed Alf Posada MD [address] , [address], [place], [address], [place] [facility] 05/11/2019 09:43:25 03/31/20 19 Lumbar Epidural steroid injection under fluoroscopic guidance completed Alf Posada MD [address] , [address], [place], [address], [place] [facility] 03/31/2019 18:50:07 01/08/20 19 Fluoroscopic Guided Lumbar Facet Steroid Injections of levels completed Alf Posada MD [address] , [address], [place], [address], [place] [facility] 01/08/2019 15:03:53 09/17/20 17 Fluoroscopic Guided Lumbar Facet Steroid Injections of levels completed Alf Posada MD [address] , [address], [place], [address], [place] [facility] 09/17/2017 10:08:58 08/07/20 17 Fluoroscopic Guided Lumbar Facet Steroid Injections of levels completed Alf Posada MD [address] , [address], [place], [address], [place] [facility] 08/07/2017 10:36:11 05/08/20 17 Lumbar Epidural steroid injection under fluoroscopic guidance completed Alf Posada MD [address] [facility] , [address], [place], [address], [place] [facility] 05/08/2017 10:54:37 Joint Replacement completed Fayechris Sotoer [place] [facility] 03/14/2017 14:36:04 Cholecystectomy completed Fayechris Sotoer [place] [facility] 03/14/2017 14:36:22 Back Surgery completed Alf Posada MD [address] , [address], [place], [address], [place] [facility] 04/02/2017 [...] completed Not Available Not Available Not Available Viva[employer] Data Ultra Test strips TESTS DAILY FOR DM, [...] completed Not Available Not Available Not Available OneToeduardo Rajput Lancets 33 gauge USE LANCET ONCE DAILY [...] Not Available No t Available Fluzone High-Dose 3208-5994 (PF) 180 mcg/0.5 mL intramuscul ar syringe TO BE ADMINISTE RED BY PHARMACIS T FOR IMMUNIZAT ION 08/07 completed Not Available Not Available Not Available Fluzone High-Dose 3369-7900 (PF) 180 mcg/0.5 mL intramuscul ar syringe TO BE ADMINISTE RED BY PHARMACIS T FOR IMMUNIZAT ION 12/25 completed Not Available Not Available Not Available OneTouch Ultra2 Meter USE TO TEXT BLOOD GLUCOSE DAILY DIRECTED active Not Available Not Available No t Available Vitals Date Recorded Body height Heart rate Oxygen saturation Oxygen saturation in Arterial blood by Pulse oximetry Systolic And Diastolic Provider Name and Address Organization Details Last Updated DateTime 2 160.02 cm 59 /min 97 % 97 % 133/80 mm[Hg] Tarah Young [place] - [facility] 2 11:40:59 Date Recorded Body height Body mass index (BMI) Body weight Heart rate Oxygen saturation Oxygen saturation in Arterial blood by Pulse oximetry Systolic And Diastolic Provider Name and Address Organization Details Last Updated DateTime 1 160.02 cm 34.7 kg/m2 93085.1 g 58 /min 98 % 98 % 144/56 mm[Hg] Alf adams MD [address] [facility] , [address], [facility] [place], [address], [place] [facility] 1 15:24:19 Date Recorded Body height Heart rate Oxygen saturation Oxygen saturation in Arterial blood by Pulse oximetry Systolic And Diastolic Provider Name and Address Organization Details Last Updated DateTime 1 160.02 cm 64 /min 97 % 97 % 112/51 mm[Hg] Tarah Young [place] [facility] 1 13:11:29 Date Recorded Body height Heart rate Oxygen saturation Oxygen saturation in Arterial blood by Pulse oximetry Systolic And Diastolic Provider Name and Address Organization Details Last Updated DateTime 2 160.02 cm 60 /min 97 % 97 % 149/58 mm[Hg] Ebony adams [place] - [facility] 2 10:07:52 Date Recorded Body height Heart rate Oxygen saturation Oxygen saturation in Arterial blood by Pulse oximetry Systolic And Diastolic Provider Name and Address Organization Details Last Updated DateTime 1 160.02 cm 66 /min 97 % 97 % 126/53 mm[Hg] Ebony adams [place] [facility] 1 10:58:34 Social History Question Answer Notes LastModified by Organizat ion Details LastModified Time Tobacco Smoking Status Former Smoker Quit x 20 years Not Available [employer] 07/22/2020 03:16:10 Which Illicit Or Recreational Drugs Have You Used? NO [id number] Information not available 07/22/2020 Education 12 With Some College Information not available 03/14/2017 Live Alone Or With Others? Alone [email or web address] Information not available 03/14/2017 Marital Status Informatio n not available 03/14/2017 What Was The Date Of Your Most Recent Tobacco Screening? 03/31/2019 [id number] Information not available 07/22/2020 How Many Years Have You Smoked Tobacco? 20 [id number] Information not available 07/22/2020 Sex: Unknown Functional Status Question Answer Note LastModified by Organization D etails LastModified Time What is your level of alcohol consumption? Moderate [id number] Information not available 07/22/2020 Are you currently employed? No [id number] Information not available 07/22/2020 Mental Status None [...] SNOMED-CT Code Diagnosis ICD10 Code Diagnosis Note [id number] Alf Posada MD PAIN OFFICE [address] [place] [address] 03/14/2017 13:22:16 03/14/2017 15:44:04 Spinal stenosis of lumbar region 32638697 M48.06 Lumbosacra l spondylosis without myelopathy 32625047 M47.817 Lumbosacra l radiculitis 60265719 M54.17 Displaceme nt of lumbar intervertebral disc without myelopathy 80581562 M51.26 [id number] Alf Posada MD PAIN OFFICE [address] [place] [address] 05/08/2017 09:51:37 05/09/2017 14:08:37 Spinal stenosis of lumbar region 37420319 M48.06 Lumbosacra l spondylosis without myelopathy 89666196 M47.817 Lumbosacra l radiculitis 93124487 M54.17 Displaceme nt of lumbar intervertebral disc without myelopathy 87532399 M51.26 [id number] Alf Posada MD PAIN OFFICE [address] [place] [address] 06/14/2017 10:36:32 06/17/2017 09:50:43 Spinal stenosis of lumbar region 50084027 M48.06 Lumbosacra l spondylosis without myelopathy 11718756 M47.817 Lumbosacra l radiculitis 68518571 M54.17 Displaceme nt of lumbar intervertebral disc without myelopathy 81527352 M51.26 [id number] Alf Posada MD [facility] PAIN OFFICE [address] [place] [address] 08/07/2017 10:01:00 08/07/2017 15:19:24 Spinal stenosis of lumbar region 42332240 M48.062 Lumbosacra l spondylosis without myelopathy 84413496 M47.817 Lumbosacra l radiculitis 23932756 M54.17 Displaceme nt of lumbar intervertebral disc without myelopathy 84941838 M51.26 [id number] Alf Posada MD [facility] PAIN OFFICE [address] [place] [address] 09/05/2017 10:11:57 09/05/2017 19:46:07 Spinal stenosis of lumbar region 34073544 M48.062 Lumbosacra l spondylosis without myelopathy 73059628 M47.817 Lumbosacra l radiculitis 61128581 M54.17 Displaceme nt of lumbar intervertebral disc without myelopathy 01144416 M51.26 [id number] Alf Posada MD PAIN OFFICE [address] [place] [address] 09/17/2017 09:13:54 09/19/2017 09:09:31 Spinal stenosis of lumbar region 63043423 M48.062 Lumbosacra l spondylosis without myelopathy 59683713 M47.817 Lumbosacra l radiculitis 83501640 M54.17 Displaceme nt of lumbar intervertebral disc without myelopathy 62976870 M51.26 [id number] Alf Posada MD [facility] PAIN OFFICE [address] [place] [address] 12/25/2018 11:24:23 12/25/2018 16:12:18 Spinal stenosis of lumbar region 34677867 M48.061 Lumbosacra l spondylosis without myelopathy 91977801 M47.817 Lumbosacra l radiculitis 10880754 M54.17 Displaceme nt of lumbar intervertebral disc without myelopathy 78068385 M51.26 [id number] Alf Posada MD [facility] PAIN OFFICE [address] [facility] [place] [address] 01/07/2019 09:10:35 01/08/2019 15:11:02 Spinal stenosis of lumbar region 55124976 M48.062 Lumbosacra l spondylosis without myelopathy 19349674 M47.817 Lumbosacra l radiculitis 60895581 M54.17 Displaceme nt of lumbar intervertebral disc without myelopathy 92059619 M51.26 [id number] Alf Posada MD PAIN OFFICE [address] [place] [address] 02/04/2019 14:13:14 02/04/2019 16:10:53 Post-herpetic neuritis 908435334 B02.29 Spinal linda nosis of lumbar region 21955906 M48.061 Lumbosacra l spondylosis without myelopathy 93529353 M47.817 Lumbosacra l radiculitis 42916826 M54.17 Displaceme nt of lumbar intervertebral disc without myelopathy 75126313 M51.26 [id number] Alf Posada MD PAIN OFFICE [address] [facility] [address] 03/31/2019 09:49:03 03/31/2019 18:56:55 Spinal stenosis of lumbar region 11395431 M48.061 Lumbosacra l spondylosis without myelopathy 40105163 M47.817 Lumbosacra l radiculitis 23489914 M54.17 Displaceme nt of lumbar intervertebral disc without myelopathy 21037193 M51.26 [id number] Alf Posada MD PAIN OFFICE [address] [facility] [address] 05/11/2019 08:51:59 05/11/2019 09:45:44 Inflammation of joint of shoulder region 024014658 M13.819 Spinal linda nosis of lumbar region 61706125 M48.061 [id number] Alf Posada MD PAIN OFFICE [address] [place] [address] 12/14/2019 13:40:03 12/14/2019 16:14:01 Spinal stenosis of lumbar region 58561153 M48.061 Lumbosacra l spondylosis without myelopathy 88397644 M47.817 Lumbosacra l radiculitis 77649629 M54.17 Displaceme nt of lumbar intervertebral disc without myelopathy 74653505 M51.26 [id number] Alf Posada MD PAIN OFFICE [address] [place] [address] 02/12/2020 11:36:11 02/15/2020 12:09:29 Spinal stenosis of lumbar region 82177585 M48.061 Lumbosacra l spondylosis without myelopathy 87084811 M47.817 Lumbosacra l radiculitis 11852324 M54.17 Displaceme nt of lumbar intervertebral disc without myelopathy 36206339 M51.26 [id number] Alf Posada MD PAIN OFFICE [address] [place] [address] 05/13/2020 08:29:14 05/13/2020 09:22:37 Inflammation of joint of shoulder region 778604267 M13.819 Spinal linda nosis of lumbar region 54870354 M48.061 [id number] Alf Posada MD PAIN OFFICE [address] [place] [address] 05/23/2020 12:46:33 05/23/2020 15:14:52 Inflammation of joint of shoulder region 435347989 M13.819 Spinal linda nosis of lumbar region 12942106 M48.061 [id number] Alf Posada MD PAIN OFFICE [address] [place] [address] 06/15/2020 10:54:32 06/15/2020 14:04:50 Inflammation of joint of shoulder region 267767726 M13.819 Spinal linda nosis of lumbar region 70940703 M48.061 Lumbosacra l spondylosis without myelopathy 87444949 M47.817 Lumbosacra l radiculitis 53019555 M54.17 Displaceme nt of lumbar intervertebral disc without myelopathy 76415769 M51.26 [id number] Alf Posada MD PAIN OFFICE [address] [facility] [address] 07/13/2020 08:30:09 07/13/2020 11:05:07 Inflammation of joint of shoulder region 800189894 M13.819 Spinal linda nosis of lumbar region 84789980 M48.061 [id number] Alf Posada MD PAIN OFFICE [address] [facility] [place] [address] 09/06/2020 10:30:56 09/08/2020 15:55:16 Inflammation of joint of shoulder region 650492358 M13.819 Spinal linda nosis of lumbar region 20923619 M48.061 Lumbosacra l spondylosis without myelopathy 27229543 M47.817 Lumbosacra l radiculitis 96286617 M54.17 Displaceme nt of lumbar intervertebral disc without myelopathy 30224868 M51.26 [id number] Alf Posada MD PAIN OFFICE [address] [facility] [place] [address] 11/07/2020 08:59:33 11/07/2020 09:55:18 Spinal stenosis of lumbar region 55207688 M48.061 Lumbosacra l spondylosis without myelopathy 32105643 M47.817 Lumbosacra l radiculitis 29566312 M54.17 Displaceme nt of lumbar intervertebral disc without myelopathy 01984514 M51.26 [id number] Alf Posada MD PAIN OFFICE [address] [facility] [place] [address] 01/10/2021 13:47:25 01/12/2021 10:00:57 Inflammation of joint of shoulder region 874489801 M13.819 Spinal linda nosis of lumbar region 96237144 M48.061 Lumbosacra l spondylosis without myelopathy 87721915 M47.817 Lumbosacra l radiculitis 52170374 M54.17 Displaceme nt of lumbar intervertebral disc without myelopathy 86383301 M51.26 [id number] Alf Posada MD PAIN OFFICE [address] [facility] [place] [address] 02/16/2021 08:44:41 02/16/2021 10:52:14 Spinal stenosis of lumbar region 24916570 M48.061 Lumbosacra l spondylosis without myelopathy 61729846 M47.817 Lumbosacra l radiculitis 46337616 M54.17 Displaceme nt of lumbar intervertebral disc without myelopathy 89789189 M51.26 [id number] Alf Posada MD PAIN OFFICE [address] [place] [address] 04/11/2021 13:21:59 04/11/2021 14:01:08 Spinal stenosis of lumbar region 63877268 M48.061 Inflammati on of joint of shoulder region 404531074 M13.819 Lumbosacra l spondylosis without myelopathy 78824342 M47.817 Lumbosacra l radiculitis 40492265 M54.17 Displaceme nt of lumbar intervertebral disc without myelopathy 66039182 M51.26 [id number] Alf Posada MD PAIN OFFICE [address] [place] [address] 06/26/2021 15:22:32 06/30/2021 10:03:11 Spinal stenosis of lumbar region 64584494 M48.061 Lumbosacra l spondylosis without myelopathy 96850241 M47.817 Lumbosacra l radiculitis 19082866 M54.17 Displaceme nt of lumbar intervertebral disc without myelopathy 38589236 M51.26 [id number] Alf Posada MD PAIN OFFICE [address] [place] [address] 07/11/2021 12:54:52 07/11/2021 13:38:15 Spinal stenosis of lumbar region 27401387 M48.061 Inflammati on of joint of shoulder region 546861378 M13.819 Lumbosacra l spondylosis without myelopathy 60378911 M47.817 Lumbosacra l radiculitis 45971578 M54.17 Displaceme nt of lumbar intervertebral disc without myelopathy 25074889 M51.26 [id number] Alf Posada MD PAIN OFFICE [address] [place] [address] 10/04/2021 10:46:49 10/04/2021 12:00:47 Spinal stenosis of lumbar region 44485968 M48.061 Inflammati on of joint of shoulder region 009873270 M13.819 Lumbosacra l spondylosis without myelopathy 56809052 M47.817 Lumbosacra l radiculitis 88553629 M54.17 Displaceme nt of lumbar intervertebral disc without myelopathy 74687413 M51.26 [id number] Alf Posada MD [facility] PAIN OFFICE [address] [place] [address] 12/12/2021 11:17:23 12/12/2021 14:28:00 Spinal stenosis of lumbar region 23041044 M48.061 Inflammati on of joint of shoulder region 354751170 M13.819 Lumbosacra l spondylosis without myelopathy 67263345 M47.817 Lumbosacra l radiculitis 35963804 M54.17 Displaceme nt of lumbar intervertebral disc without myelopathy 22077098 M51.26 [id number] Alf Posada MD PAIN OFFICE [address] [place] [address] 08/21/2022 10:05:44 08/21/2022 11:05:40 Spinal stenosis of lumbar region 73394103 M48.061 Inflammati on of joint of shoulder region 475669871 M13.819 Lumbosacra l spondylosis without myelopathy 22652359 M47.817 Lumbosacra l radiculitis 94229557 M54.17 Displaceme nt of lumbar intervertebral disc without myelopathy 64187225 M51.26 Degenerati on of lumbar intervertebral disc 19261170 M51.36 Health Concerns Section Related Observation LastModified by Organization Detai ls LastModified Time None Recorded Concern Status LastModified by Organization Details LastModified Time None Recorded Advance Directives Directive None Recorded Payers Insurance Date Sequence Insurance Name Policy Number Policy Anders Covered Member ID Anders Member ID Guarantor Name 12/15/2022 1 MEDICARE [place]: [facility] [employer] Shreya M Gravel [id number] Shreya Gravel 12/15/2022 2 [place] [id number] Shreya Calvert [id number] Shreya Calvert Notes Date Note Type Note Provider Name [...] or bowel incontinence. Alf Posada MD [address] [facility] , [place] [address], [place], [address], [place] [facility] 07/10/2021 08:52:57 07/11/2021 text/html She is here for a lumbar epidural steroid injection under fluoroscopic guidance. Alf Posada MD [address] [facility] , [address], [place], [address], [place] [facility] 07/12/2021 09:01:37 10/04/2021 text/html She is here for a lumbar epidural steroid injection under fluoroscopic guidance. Alf Posada MD [address] [facility] , [address], [place], [address], [place] [facility] 10/04/2021 12:48:56 12/12/2021 text/html She is here for a lumbar epidural steroid injection under fluoroscopic guidance. Alf Posada MD [address] [facility] , [address], [place], [address], [place] [facility] 12/12/2021 16:13:18 08/21/2022 text/html She is here for a lumbar epidural steroid injection under fluoroscopic guidance. She has stopped eliquis and pletal as instructed for the procedure. Alf Posada MD [address] [facility] , [address], [place], [address], [place] [facility] 08/22/2022 08:44:58 OBGyn Episode No OBEpisode recorded.
[2025-04-13 06:25] LABS: Hematocrit 36.7 % (37.0-47.0); Hemoglobin 12.3 g/dl (12.0-16.0); Imm Gran Abs Auto 0.01 X10*3/uL (0.00-0.03); Imm Gran Pct Auto 0.2 % (0.0-0.4); Lymphocytes Absolute Auto 1.5 X10*3/uL (1.2-4.9); Mean Corpuscular HGB Conc 33.5 g/dl (31.0-35.0); Mean Corpuscular Hemoglobin 32.9 pg (27.0-33.0); Mean Corpuscular Volume 98.1 fL (80.0-98.0); NRBC Abs Auto 0.000 X10*3/uL (0.0-0.012); NRBC Pct Auto 0.0 /100WBC (0.0-0.2); Platelet Count 193 X10*3/uL (160-400); Red Blood Count 3.74 X10*6/uL (4.20-5.50); White Blood Count 4.5 X10*3/uL (4.8-10.8)
[2025-04-13 06:38] LABS: Anion Gap 12 (12-20)
[2025-04-13 06:41] LABS: Blood Urea Nitrogen 21 mg/dL (9-16); Calcium 9.2 mg/dL (8.4-10.2); Carbon Dioxide 23 mmol/L (22-29); Chloride 109 mmol/L (96-108); Estimated Glomerular Filt Rate > 60; Potassium 4.2 mmol/L (3.3-5.1); Sodium 140 mmol/L (135-145)
== END 2025-04-13 05:33 | disposition home or self-care (01) ==
LOC: HO.MMNH3L 05:32
PROVIDERS: Visit Provider Family Medicine
DX: I25.10 Atherosclerotic heart disease of native coronary artery without angina pectoris (principal); N18.2 Chronic kidney disease, stage 2 (mild); I87.333 Chronic venous hypertension (idiopathic) with ulcer and inflammation of bilateral lower extremity
CPT/HCPCS: 36415; 80048; 85025

== ENCOUNTER 2025-04-15 05:43 | Outpatient (REF) | payer MEDICARE, MEDICAID, SELFPAY ==
[2025-04-15 06:00] LABS: MANUAL DIFF FLAG NO
[2025-04-15 06:32] LABS: Hematocrit 38.6 % (37.0-47.0); Hemoglobin 13.0 g/dl (12.0-16.0); Imm Gran Abs Auto 0.01 X10*3/uL (0.00-0.03); Imm Gran Pct Auto 0.2 % (0.0-0.4); Lymphocytes Absolute Auto 1.3 X10*3/uL (1.2-4.9); Mean Corpuscular HGB Conc 33.7 g/dl (31.0-35.0); Mean Corpuscular Hemoglobin 32.7 pg (27.0-33.0); Mean Corpuscular Volume 97.0 fL (80.0-98.0); NRBC Abs Auto 0.000 X10*3/uL (0.0-0.012); NRBC Pct Auto 0.0 /100WBC (0.0-0.2); Platelet Count 174 X10*3/uL (160-400); Red Blood Count 3.98 X10*6/uL (4.20-5.50); White Blood Count 4.6 X10*3/uL (4.8-10.8)
[2025-04-15 06:47] LABS: Anion Gap 10 (12-20); Blood Urea Nitrogen 22 mg/dL (9-16); Calcium 9.3 mg/dL (8.4-10.2); Carbon Dioxide 25 mmol/L (22-29); Chloride 109 mmol/L (96-108); Estimated Glomerular Filt Rate > 60; Iron 63 mcg/dL (30-160); Percent Iron Saturation 25 % (15-50); Potassium 3.8 mmol/L (3.3-5.1); Sodium 140 mmol/L (135-145); Total Iron Binding Capacity 257 mcg/dL (228-428); Unsaturated Iron Binding 194 ug/dL
[2025-04-15 06:50] LABS: Troponin-I High Sensitivity < 2.7 ng/L (<3.5-17.0)
[2025-04-15 07:03] LABS: Ferritin 84 ng/mL (10-250); Thyroid Stimulating Hormone 7.55 uIU/mL (0.32-4.0)
[2025-04-15 11:54] LABS: Vitamin B12 315 pg/mL (200-900)
== END 2025-04-15 05:44 | disposition home or self-care (01) ==
LOC: HO.MMNH3L 05:43
PROVIDERS: Visit Provider Nurse Practitioner Family
DX: J44.9 Chronic obstructive pulmonary disease, unspecified (principal); E08.40 Diabetes mellitus due to underlying condition with diabetic neuropathy, unspecified; F03.93 Unspecified dementia, unspecified severity, with mood disturbance
CPT/HCPCS: 36415; 80048; 82306; 82607; 82728; 83540; 84443; 84484; 85025

== ENCOUNTER 2025-04-20 07:42 | Outpatient (REF) | payer MEDICARE, MEDICAID, SELFPAY ==
--- OUTSIDE RECORDS SUMMARY | 2025-04-20 07:45 | XMS_ITS | Data Portability ---
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 She needs a petrol tanker driver on the day of the procedure. [...] By Organization Details Last Modified Time 06/26/2021 [id number] She was advised against bed rest lasting longer than four days and to continue activities as tolerated. [email or web address] Not available 06/30/2021 10:01:24 07/11/2021 [id number] She was advised to continue with activities as tolerated [email or web address] Not available 07/11/2021 13:35:39 10/04/2021 [id number] She was advised to continue with activities as tolerated [email or web address] Not available 10/04/2021 11:55:19 12/12/2021 [id number] She was advised to continue with activities as tolerated [email or web address] Not available 12/12/2021 12:09:37 08/21/2022 [id number] She was advised to continue with activities as tolerated [email or web address] Not available 08/21/2022 10:34:48 Reason for Referral None Reported. Problems Name Problem SNOMED Code Status Onset Date Resolution Date Notes Provider Name and Address Organization Details Recorded Time Spinal stenosis of lumbar region 96545882 Active 2016 Alf adams MD [facility] , [address], [facility] [place], [address] [facility] [place] [facility] 7 10:55:25 Lumbosacral spondylosis without myelopathy 22351436 Active 2016 Alf adams MD [email or web address] , [address], [place], [address], [place] [facility] 7 10:55:26 Lumbosacral radiculitis 60055374 Active 2016 Alf adams MD [address] , [address], [place], [address], [place] [facility] 7 10:55:27 Displacement of lumbar intervertebral disc without myelopathy 30916913 Active 2016 Alf adams MD [address] , [address], [place], [address], [place] [facility] 7 10:55:30 Post-herpetic neuritis 332387266 Active Alf adams MD [address] , [address], [place], [address], [place] [facility] 9 14:56:27 Inflammation of joint of shoulder region 568774996 Active Alf adams MD [address] , [address], [place], [address], [place] [facility] 9 09:39:04 Problem Notes None recorded. Procedures Surgical History Date Name Laterality Status Provider Name and Address Organization Details Recorded Time 08/21/20 22 Lumbar Epidural steroid injection under fluoroscopic guidance completed Alf Posada MD [address] , [address], [place], [address], [place] [facility] 08/21/2022 10:36:53 12/13/19 22 Lumbar Epidural steroid injection under fluoroscopic guidance completed Alf Posada MD [address] , [address], [place], [address], [place] [facility] 12/12/2021 12:09:46 10/04/20 21 Lumbar Epidural steroid injection under fluoroscopic guidance completed Alf Posada MD [address] , [address], [place], [address], [place] [facility] 10/04/2021 11:55:59 07/11/20 21 Lumbar Epidural steroid injection under fluoroscopic guidance completed Alf Posada MD [address] , [address], [place], [address], [place] [facility] 07/11/2021 13:35:45 04/11/20 21 Lumbar Epidural steroid injection under fluoroscopic guidance completed Alf Posada MD [address] , [address], [place], [address], [place] [facility] 04/11/2021 13:56:00 01/11/20 21 Lumbar Epidural steroid injection under fluoroscopic guidance completed Alf Posada MD [address] , [address], [place], [address], [place] [facility] 01/12/2021 09:57:53 09/06/20 20 Lumbar Epidural steroid injection under fluoroscopic guidance completed Alf Posada MD [address] , [address], [place], [address], [place] [facility] 09/08/2020 14:56:36 06/15/20 20 Lumbar Epidural steroid injection under fluoroscopic guidance completed Alf Posada MD [address] , [address], [place], [address], [place] [facility] 06/15/2020 14:00:13 05/23/20 20 Intra-articular shoulder steroid injection under ultrasound guidance completed Alf Posada MD [address] , [address], [place], [address], [place] [facility] 05/23/2020 15:11:49 05/11/20 19 Intra-articular shoulder steroid injection under ultrasound guidance completed Alf Posada MD [address] , [address], [place], [address], [place] [facility] 05/11/2019 09:43:25 03/31/20 19 Lumbar Epidural steroid injection under fluoroscopic guidance completed Alf Posada MD [address] , [address], [place], [address], [place] [facility] 03/31/2019 18:50:07 01/08/20 19 Fluoroscopic Guided Lumbar Facet Steroid Injections of levels completed Alf Posada MD [address] , [address], [place], [address], [place] [facility] 01/08/2019 15:03:53 09/17/20 17 Fluoroscopic Guided Lumbar Facet Steroid Injections of levels completed Alf Posada MD [address] , [address], [place], [address], [place] [facility] 09/17/2017 10:08:58 08/07/20 17 Fluoroscopic Guided Lumbar Facet Steroid Injections of levels completed Alf Posada MD [address] , [address], [place], [address], [place] [facility] 08/07/2017 10:36:11 05/08/20 17 Lumbar Epidural steroid injection under fluoroscopic guidance completed Alf Posada MD [address] [facility] , [address], [place], [address], [place] [facility] 05/08/2017 10:54:37 Joint Replacement completed Fayechris Sotoer [place] [facility] 03/14/2017 14:36:04 Cholecystectomy completed Fayechris Sotoer [place] [facility] 03/14/2017 14:36:22 Back Surgery completed Alf Posada MD [address] , [address], [place], [address], [place] [facility] 04/02/2017 [...] completed Not Available Not Available Not Available HALGIToDyMynd Ultra Test strips TESTS DAILY FOR DM, [...] Not Available No t Available Fluzone High-Dose 5124-7435 (PF) 180 mcg/0.5 mL intramuscul ar syringe TO BE ADMINISTE RED BY PHARMACIS T FOR IMMUNIZAT ION 08/07 completed Not Available Not Available Not Available Fluzone High-Dose 0785-9916 (PF) 180 mcg/0.5 mL intramuscul ar syringe [...] Updated DateTime 1 160.02 cm 34.7 kg/m2 84730.1 g 58 /min 98 % 98 % 144/56 mm[Hg] Alf adams MD [address] [facility] , [address], [facility] [place], [address], [place] [facility] 1 [...] Or Recreational Drugs Have You Used? NO [id number] Information not available 07/22/2020 Education 12 With Some College Information not available 03/14/2017 Live Alone Or With Others? Alone [email or web address] Information not available 03/14/2017 Marital Status Informatio n not available 03/14/2017 What Was The Date Of Your Most Recent Tobacco Screening? 03/31/2019 [id number] Information not available 07/22/2020 How Many Years Have You Smoked Tobacco? 20 [id number] Information not available 07/22/2020 Sex: Unknown Functional Status Question Answer Note LastModified by Organization D etails LastModified Time What is your level of alcohol consumption? Moderate [id number] Information not available 07/22/2020 Are you currently employed? No [id number] Information not available 07/22/2020 Mental Status None recorded. Family History Nothing Reported. Medical History Condition Response Coronary Artery Disease Y Arthritis Y High Cholesterol Y Asthma Y Hypertension Y Gynecological HistoryNo gynecological history recorded. Obstetrics History GPAL:G 0 P 0 0 0 0 Past Encounters Encounter ID Performer Location Encounter Start Date Encounter Closed Date Diagnosis/Indication Diagnosis SNOMED-CT Code Diagnosis ICD10 Code Diagnosis Note [id number] Alf Posada MD PAIN OFFICE [address] [place] [address] 03/14/2017 13:22:16 03/14/2017 15:44:04 Spinal stenosis of lumbar region 31134084 M48.06 Lumbosacra l spondylosis without myelopathy 66619391 M47.817 Lumbosacra l radiculitis 72985732 M54.17 Displaceme nt of lumbar intervertebral disc without myelopathy 28979205 M51.26 [id number] Alf Posada MD PAIN OFFICE [address] [place] [address] 05/08/2017 09:51:37 05/09/2017 14:08:37 Spinal stenosis of lumbar region 64509041 M48.06 Lumbosacra l spondylosis without myelopathy 92371476 M47.817 Lumbosacra l radiculitis 45564252 M54.17 Displaceme nt of lumbar intervertebral disc without myelopathy 86983639 M51.26 [id number] Alf Posada MD PAIN OFFICE [address] [place] [address] 06/14/2017 10:36:32 06/17/2017 09:50:43 Spinal stenosis of lumbar region 63601793 M48.06 Lumbosacra l spondylosis without myelopathy 29669833 M47.817 Lumbosacra l radiculitis 04857998 M54.17 Displaceme nt of lumbar intervertebral disc without myelopathy 71831416 M51.26 [id number] Alf Posada MD [facility] PA[facility]ICE [address] [place] [address] 08/07/2017 10:01:00 08/07/2017 15:19:24 Spinal stenosis of lumbar region 13233130 M48.062 Lumbosacra l spondylosis without myelopathy 58514415 M47.817 Lumbosacra l radiculitis 73962447 M54.17 Displaceme nt of lumbar intervertebral disc without myelopathy 08228726 M51.26 [id number] Alf Posada MD [facility] PA[facility] [address] [place] [address] 09/05/2017 10:11:57 09/05/2017 19:46:07 Spinal stenosis of lumbar region 22254599 M48.062 Lumbosacra l spondylosis without myelopathy 39611447 M47.817 Lumbosacra l radiculitis 81061567 M54.17 Displaceme nt of lumbar intervertebral disc without myelopathy 72085333 M51.26 [id number] Alf Posada MD PAIN OFFICE [address] [place] [address] 09/17/2017 09:13:54 09/19/2017 09:09:31 Spinal stenosis of lumbar region 65065012 M48.062 Lumbosacra l spondylosis without myelopathy 66960185 M47.817 Lumbosacra l radiculitis 82429311 M54.17 Displaceme nt of lumbar intervertebral disc without myelopathy 59263747 M51.26 [id number] Alf Posada MD [facility] PA[facility] [address] [place] [address] 12/25/2018 11:24:23 12/25/2018 16:12:18 Spinal stenosis of lumbar region 29627401 M48.061 Lumbosacra l spondylosis without myelopathy 35263839 M47.817 Lumbosacra l radiculitis 20659620 M54.17 Displaceme nt of lumbar intervertebral disc without myelopathy 38991063 M51.26 [id number] Alf Posada MD [facility] PAIN OFF[facility] [address] [place] [address] 01/07/2019 09:10:35 01/08/2019 15:11:02 Spinal stenosis of lumbar region 96430830 M48.062 Lumbosacra l spondylosis without myelopathy 63259081 M47.817 Lumbosacra l radiculitis 46444471 M54.17 Displaceme nt of lumbar intervertebral disc without myelopathy 00587162 M51.26 [id number] Alf Posada MD PAIN OFFICE [address] [facility] [place] [address] 02/04/2019 14:13:14 02/04/2019 16:10:53 Post-herpetic neuritis 770948722 B02.29 Spinal linda nosis of lumbar region 30148296 M48.061 Lumbosacra l spondylosis without myelopathy 65710461 M47.817 Lumbosacra l radiculitis 10928005 M54.17 Displaceme nt of lumbar intervertebral disc without myelopathy 04070624 M51.26 [id number] Alf Posada MD PAIN OFFICE [address] [facility] [place] [address] 03/31/2019 09:49:03 03/31/2019 18:56:55 Spinal stenosis of lumbar region 99432809 M48.061 Lumbosacra l spondylosis without myelopathy 11785982 M47.817 Lumbosacra l radiculitis 47284045 M54.17 Displaceme nt of lumbar intervertebral disc without myelopathy 11121958 M51.26 [id number] Alf Posada MD PAIN OFFICE [address] [facility] [place] [address] 05/11/2019 08:51:59 05/11/2019 09:45:44 Inflammation of joint of shoulder region 840381112 M13.819 Spinal linda nosis of lumbar region 10539821 M48.061 [id number] Alf Posada MD PAIN OFFICE [address] [facility] [place] [address] 12/14/2019 13:40:03 12/14/2019 16:14:01 Spinal stenosis of lumbar region 69417700 M48.061 Lumbosacra l spondylosis without myelopathy 79835276 M47.817 Lumbosacra l radiculitis 40579870 M54.17 Displaceme nt of lumbar intervertebral disc without myelopathy 33845988 M51.26 [id number] Alf Posada MD PAIN OFFICE [address] [place] [address] 02/12/2020 11:36:11 02/15/2020 12:09:29 Spinal stenosis of lumbar region 59524967 M48.061 Lumbosacra l spondylosis without myelopathy 75787483 M47.817 Lumbosacra l radiculitis 63279136 M54.17 Displaceme nt of lumbar intervertebral disc without myelopathy 57862869 M51.26 [id number] Alf Posada MD PAIN OFFICE [address] [place] [address] 05/13/2020 08:29:14 05/13/2020 09:22:37 Inflammation of joint of shoulder region 862571771 M13.819 Spinal linda nosis of lumbar region 49537572 M48.061 [id number] Alf Posada MD PAIN OFFICE [address] [place] [address] 05/23/2020 12:46:33 05/23/2020 15:14:52 Inflammation of joint of shoulder region 974767255 M13.819 Spinal linda nosis of lumbar region 32669804 M48.061 [id number] Alf Posada MD PAIN OFFICE [address] [place] [address] 06/15/2020 10:54:32 06/15/2020 14:04:50 Inflammation of joint of shoulder region 073014001 M13.819 Spinal linda nosis of lumbar region 26880398 M48.061 Lumbosacra l spondylosis without myelopathy 43564396 M47.817 Lumbosacra l radiculitis 16659542 M54.17 Displaceme nt of lumbar intervertebral disc without myelopathy 72954246 M51.26 [id number] Alf Posada MD PAIN OFFICE [address] [facility] [address] 07/13/2020 08:30:09 07/13/2020 11:05:07 Inflammation of joint of shoulder region 152815143 M13.819 Spinal linda nosis of lumbar region 61705483 M48.061 [id number] Alf Posada MD PAIN OFFICE [address] [facility] [place] [address] 09/06/2020 10:30:56 09/08/2020 15:55:16 Inflammation of joint of shoulder region 840656715 M13.819 Spinal linda nosis of lumbar region 98094350 M48.061 Lumbosacra l spondylosis without myelopathy 93243504 M47.817 Lumbosacra l radiculitis 97098788 M54.17 Displaceme nt of lumbar intervertebral disc without myelopathy 66061883 M51.26 [id number] Alf Posada MD PAIN OFFICE [address] [facility] [place] [address] 11/07/2020 08:59:33 11/07/2020 09:55:18 Spinal stenosis of lumbar region 82493631 M48.061 Lumbosacra l spondylosis without myelopathy 80178298 M47.817 Lumbosacra l radiculitis 96008307 M54.17 Displaceme nt of lumbar intervertebral disc without myelopathy 46121184 M51.26 [id number] Alf Posada MD PAIN OFFICE [address] [facility] [place] [address] 01/10/2021 13:47:25 01/12/2021 10:00:57 Inflammation of joint of shoulder region 871736022 M13.819 Spinal linda nosis of lumbar region 83735615 M48.061 Lumbosacra l spondylosis without myelopathy 79750462 M47.817 Lumbosacra l radiculitis 00323626 M54.17 Displaceme nt of lumbar intervertebral disc without myelopathy 81643920 M51.26 [id number] Alf Posada MD PAIN OFFICE [address] [facility] [place] [address] 02/16/2021 08:44:41 02/16/2021 10:52:14 Spinal stenosis of lumbar region 44581124 M48.061 Lumbosacra l spondylosis without myelopathy 37833044 M47.817 Lumbosacra l radiculitis 66734786 M54.17 Displaceme nt of lumbar intervertebral disc without myelopathy 56985335 M51.26 [id number] Alf Posada MD PAIN OFFICE [address] [place] [address] 04/11/2021 13:21:59 04/11/2021 14:01:08 Spinal stenosis of lumbar region 61661176 M48.061 Inflammati on of joint of shoulder region 887643758 M13.819 Lumbosacra l spondylosis without myelopathy 89971776 M47.817 Lumbosacra l radiculitis 78653295 M54.17 Displaceme nt of lumbar intervertebral disc without myelopathy 22047642 M51.26 [id number] Alf Posada MD PAIN OFFICE [address] [place] [address] 06/26/2021 15:22:32 06/30/2021 10:03:11 Spinal stenosis of lumbar region 94730092 M48.061 Lumbosacra l spondylosis without myelopathy 34743347 M47.817 Lumbosacra l radiculitis 17521222 M54.17 Displaceme nt of lumbar intervertebral disc without myelopathy 18828806 M51.26 [id number] Alf Posada MD PAIN OFFICE [address] [place] [address] 07/11/2021 12:54:52 07/11/2021 13:38:15 Spinal stenosis of lumbar region 18410289 M48.061 Inflammati on of joint of shoulder region 069293703 M13.819 Lumbosacra l spondylosis without myelopathy 39954903 M47.817 Lumbosacra l radiculitis 30552120 M54.17 Displaceme nt of lumbar intervertebral disc without myelopathy 49770711 M51.26 [id number] Alf Posada MD PAIN OFFICE [address] [place] [address] 10/04/2021 10:46:49 10/04/2021 12:00:47 Spinal stenosis of lumbar region 26837387 M48.061 Inflammati on of joint of shoulder region 310302479 M13.819 Lumbosacra l spondylosis without myelopathy 76619809 M47.817 Lumbosacra l radiculitis 47575199 M54.17 Displaceme nt of lumbar intervertebral disc without myelopathy 13111926 M51.26 [id number] Alf Posada MD [facility] [address] [place] [address] 12/12/2021 11:17:23 12/12/2021 14:28:00 Spinal stenosis of lumbar region 19364184 M48.061 Inflammati on of joint of shoulder region 014655314 M13.819 Lumbosacra l spondylosis without myelopathy 35549538 M47.817 Lumbosacra l radiculitis 84465333 M54.17 Displaceme nt of lumbar intervertebral disc without myelopathy 70475885 M51.26 [id number] Alf Posada MD PAIN OFFICE [address] [place] [address] 08/21/2022 10:05:44 08/21/2022 11:05:40 Spinal stenosis of lumbar region 25656693 M48.061 Inflammati on of joint of shoulder region 265603154 M13.819 Lumbosacra l spondylosis without myelopathy 74951307 M47.817 Lumbosacra l radiculitis 02519011 M54.17 Displaceme nt of lumbar intervertebral disc without myelopathy 89574801 M51.26 Degenerati on of lumbar intervertebral disc 50892167 M51.36 Health Concerns Section Related Observation LastModified by Organization Detai ls LastModified Time None Recorded Concern Status LastModified by Organization Details LastModified Time None Recorded Advance Directives Directive None Recorded Payers Insurance Date Sequence Insurance Name Policy Number Policy Anders Covered Member ID Anders Member ID Guarantor Name 12/15/2022 1 MEDICARE [facility]-[place]: [facility] [employer] Shreya M Gravel [id number] Shreya Gravel 12/15/2022 2 [place]) [id number] Shreya Calvert [id number] Shreya Calvert Notes Date Note Type [...] or bowel incontinence. Alf Posada MD [address] [facility] , [place] [address], [place], [address], [place] [facility] 07/10/2021 08:52:57 07/11/2021 text/html She is here for a lumbar epidural steroid injection under fluoroscopic guidance. Alf Posada MD [address] [facility] , [address], [place], [address], [place] [facility] 07/12/2021 09:01:37 10/04/2021 text/html She is here for a lumbar epidural steroid injection under fluoroscopic guidance. Alf Posada MD [address] [facility] , [address], [place], [address], [place] [facility] 10/04/2021 12:48:56 12/12/2021 text/html She is here for a lumbar epidural steroid injection under fluoroscopic guidance. Alf Posada MD [address] [facility] , [address], [place], [address], [place] [facility] 12/12/2021 16:13:18 08/21/2022 text/html She is here for a lumbar epidural steroid injection under fluoroscopic guidance. She has stopped eliquis and pletal as instructed for the procedure. Alf Posada MD [address] [facility] , [address], [place], [address], [place] [facility] 08/22/2022 08:44:58 OBGyn Episode No OBEpisode recorded.
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
--- OUTSIDE RECORDS SUMMARY | 2025-04-20 07:45 | XMS_ITS | Clinical Summary ---
Author Organization [facility] Address [address] [place] [address] Phone Care Team Providers Care Research Attorney Name Role Phone Rex Bass MD Primary Care Provider [phone] Allergies Active Allergy Reactions Criticality Noted Date [...] Problem Noted Date Diagnosed Date Atrial flutter ([facility] V24, [facility] V28) 2021 Overview (08/28/2024): Last Assessment & [...] HISTORICAL CHOLECYSTECTOMY OTHER SURGICAL HISTORY 12/14/2013 PROCEDURE: OR EGD PARTIAL/COMPL ESOPHAGOGASTRIC FUNDOPLASTY COLONOSCOPY 02/09/2016 PROCEDURE: HISTORICAL COLONOSCOPY OTHER SURGICAL HISTORY 05/14/2013 PROCEDURE: OR ECHO TRANSTHORAC R-T 2D W/WO M-MODE REC COMP OTHER SURGICAL HISTORY 03/13/2013 PROCEDURE: OR CABG W/ARTERIAL GRAFT THREE ARTERIAL GRAFTS OTHER SURGICAL HISTORY 12/06/2008 PROCEDURE: OR EGD PARTIAL/COMPL ESOPHAGOGASTRIC FUNDOPLASTY CARPAL TUNNEL RELEASE PROCEDURE: OR NEUROPLASTY &/TRANSPOS MEDIAN NRV CARPAL TUNNE; COMMENT: [...] CMS/HCC V28) DX:Chronic obstructive pulm onary disease ([facility]) Chronic pain DX:Chronic pain Compression fracture of L1 l umbar vertebra ([facility] V24, [facility] V28) DX:Compression fra cture of L1 lumbar vertebra ([facility]); COMMENT: and t12 vertebra Degeneration macular DX:Degenera tion macular Depression DX:Depression Diabetes type 2, controlled ([facility] [place], [facility] V28) DX:Diabetes type 2, controll ed ([facility]) Diverticulitis DX:Diverticuliti s Elevated LFTs DX:Elevated LFTs [...] 2 obesi ty Osteoporosis DX:Osteoporosis Primary hyperparathyroidism ([facility] V24) DX:Primary hyperparathyroidi sm ([facility]) Recurrent falls DX:Recurrent fal ls Restless legs [...] Sugar Control Test (HGBA1C) 10/19/2024 Influenza Vaccine (#1) 2025 , 07/31/2022, 10/19/2021, Additional history exists DTaP,Tdap,and Td [...] patient's age to complete this topic [facility] [place] MEDICARE Advance Directives Documents on File Type Date Recorded Patient Poly Area Supervisor Expl anation Health Care Decision (hx) 09/26/2023 AD FARNSWORTH DIRECTIVE Health Care Decision (hx) 05/09/2021 AD FARNSWORTH DIRECTIVE Health Care Decision (hx) 05/09/2021 AD FARNSWORTH DIRECTIVE Care Teams Research Attorney Relationship Specialty Start Date End Date Rex Bass MD [address] [place] [address], [phone] PCP - General 04/23/24
[2025-04-20 07:46] LABS: MANUAL DIFF FLAG NO
[2025-04-20 08:09] LABS: Hematocrit 37.3 % (37.0-47.0); Hemoglobin 12.4 g/dl (12.0-16.0); Imm Gran Abs Auto 0.01 X10*3/uL (0.00-0.03); Imm Gran Pct Auto 0.2 % (0.0-0.4); Lymphocytes Absolute Auto 1.5 X10*3/uL (1.2-4.9); Mean Corpuscular HGB Conc 33.2 g/dl (31.0-35.0); Mean Corpuscular Hemoglobin 32.9 pg (27.0-33.0); Mean Corpuscular Volume 98.9 fL (80.0-98.0); NRBC Abs Auto 0.000 X10*3/uL (0.0-0.012); NRBC Pct Auto 0.0 /100WBC (0.0-0.2); Platelet Count 172 X10*3/uL (160-400); Red Blood Count 3.77 X10*6/uL (4.20-5.50); White Blood Count 4.7 X10*3/uL (4.8-10.8)
[2025-04-20 08:27] LABS: Anion Gap 10 (12-20); Blood Urea Nitrogen 20 mg/dL (9-16); Calcium 8.8 mg/dL (8.4-10.2); Carbon Dioxide 24 mmol/L (22-29); Chloride 111 mmol/L (96-108); Estimated Glomerular Filt Rate > 60; Potassium 4.1 mmol/L (3.3-5.1); Sodium 141 mmol/L (135-145)
== END 2025-04-20 07:43 | disposition home or self-care (01) ==
LOC: HO.MMNH3L 07:42
PROVIDERS: Visit Provider Internal Medicine
DX: N18.2 Chronic kidney disease, stage 2 (mild) (principal); I50.40 Unspecified combined systolic (congestive) and diastolic (congestive) heart failure; I25.10 Atherosclerotic heart disease of native coronary artery without angina pectoris
CPT/HCPCS: 36415; 80048; 85025

== ENCOUNTER 2025-05-07 06:49 | Outpatient (REF) | payer MEDICARE, MEDICAID, SELFPAY ==
[2025-05-07 08:10] LABS: Alanine Aminotransferase 17 U/L (0-31); Albumin Level 3.4 g/dL (3.5-5.0); Alkaline Phosphatase 89 U/L (39-117); Anion Gap 13 (12-20); Aspartate Amino Transferase 21 U/L (5-31); Blood Urea Nitrogen 22 mg/dL (9-16); Calcium 8.9 mg/dL (8.4-10.2); Carbon Dioxide 19 mmol/L (22-29); Chloride 111 mmol/L (96-108); Estimated Glomerular Filt Rate > 60; Potassium 4.4 mmol/L (3.3-5.1); Sodium 139 mmol/L (135-145); Total Protein 6.2 g/dL (6.5-8.0)
[2025-05-07 08:34] LABS: Thyroid Stimulating Hormone 5.49 uIU/mL (0.32-4.0)
== END 2025-05-07 06:50 | disposition home or self-care (01) ==
LOC: HO.MMNH3L 06:49
PROVIDERS: Visit Provider Student in an Organized Health Care Education/Training Program
DX: I10 Essential (primary) hypertension (principal); I87.333 Chronic venous hypertension (idiopathic) with ulcer and inflammation of bilateral lower extremity; J44.9 Chronic obstructive pulmonary disease, unspecified
CPT/HCPCS: 36415; 80053; 82248; 84443

== ENCOUNTER 2025-05-10 06:39 | Outpatient (REF) | payer MEDICARE, MEDICAID, SELFPAY ==
[2025-05-10 06:13] LABS: MANUAL DIFF FLAG NO
--- OUTSIDE RECORDS SUMMARY | 2025-05-10 06:41 | XMS_ITS | Clinical Summary ---
Author Organization [facility] Address [address] [place] [address] Phone Care Team Providers Care Grooming Assistant Name Role Phone Rex Bass MD Primary Care Provider [phone] Allergies Active Allergy Reactions Criticality Noted Date [...] Problem Noted Date Diagnosed Date Atrial flutter ([facility] V24, [facility] V28) 2021 Overview (08/28/2024): Last Assessment [...] HISTORICAL CHOLECYSTECTOMY OTHER SURGICAL HISTORY 12/14/2013 PROCEDURE: OH EGD PARTIAL/COMPL ESOPHAGOGASTRIC FUNDOPLASTY COLONOSCOPY 02/09/2016 PROCEDURE: HISTORICAL COLONOSCOPY OTHER SURGICAL HISTORY 05/14/2013 PROCEDURE: OH ECHO TRANSTHORAC R-T 2D W/WO M-MODE REC COMP OTHER SURGICAL HISTORY 03/13/2013 PROCEDURE: OH CABG W/ARTERIAL GRAFT THREE ARTERIAL GRAFTS OTHER SURGICAL HISTORY 12/06/2008 PROCEDURE: [place] EGD PARTIAL/COMPL ESOPHAGOGASTRIC FUNDOPLASTY CARPAL TUNNEL RELEASE PROCEDURE: [place] NEUROPLASTY &/TRANSPOS MEDIAN NRV CARPAL TUNNE; COMMENT: [...] CMS/HCC V28) DX:Chronic obstructive pulm onary disease ([facility]) Chronic pain DX:Chronic pain Compression fracture of L1 l umbar vertebra ([facility] V24, [facility] V28) DX:Compression fra cture of L1 lumbar vertebra ([facility]); COMMENT: and t12 vertebra Degeneration macular DX:Degenera tion macular Depression DX:Depression Diabetes type 2, controlled [place] [place] [facility] [place]) DX:Diabetes type 2, controll ed ([facility]) Diverticulitis DX:Diverticuliti s Elevated LFTs DX:Elevated [...] 2 obesi ty Osteoporosis DX:Osteoporosis Primary hyperparathyroidism ([facility] [place]) DX:Primary hyperparathyroidi sm ([facility]) Recurrent falls DX:Recurrent fal ls Restless [...] 12/18/2012 10/23/2012 Cholesterol Screening (Lipid Panel) 09/15/2022 Falls Risk Assessment 09/15/2022 Medicare Annual Wellness Visit 09/15/2022 Osteoporosis Screening (Bone Density Screening) 09/15/2022 Social Influencers of Health Screening 09/15/2022 Hypertension/CHF/CAD Annual BMP Blood Test 09/16/2022 COVID-19 Vaccine ( season) 2024 02/28/2022, 08/23/2021, 12/03/2020, Additional history exists Depression Screening 10/07/2024 Diabetes: Blood Sugar Control Test (HGBA1C) 10/19/2024 [...] age to complete this topic Insurance [facility] MEDICAID - [place] MEDICARE Advance Directives Documents on File Type Date Recorded Patient Target Protection Specialist Expl anation Health Care Decision (hx) 09/26/2023 AD FARNSWORTH DIRECTIVE Health Care Decision (hx) 05/09/2021 AD FARNSWORTH DIRECTIVE Health Care Decision (hx) 05/09/2021 AD FARNSWORTH DIRECTIVE Care Teams Grooming Assistant Relationship Specialty Start Date End Date Rex Bass MD [address] [place] [address], [phone] PCP - General 04/23/24
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
[2025-05-10 07:12] LABS: Hematocrit 37.0 % (37.0-47.0); Hemoglobin 12.4 g/dl (12.0-16.0); Imm Gran Abs Auto 0.01 X10*3/uL (0.00-0.03); Imm Gran Pct Auto 0.2 % (0.0-0.4); Lymphocytes Absolute Auto 1.2 X10*3/uL (1.2-4.9); Mean Corpuscular HGB Conc 33.5 g/dl (31.0-35.0); Mean Corpuscular Hemoglobin 33.0 pg (27.0-33.0); Mean Corpuscular Volume 98.4 fL (80.0-98.0); NRBC Abs Auto 0.000 X10*3/uL (0.0-0.012); NRBC Pct Auto 0.0 /100WBC (0.0-0.2); Platelet Count 190 X10*3/uL (160-400); Red Blood Count 3.76 X10*6/uL (4.20-5.50); White Blood Count 4.7 X10*3/uL (4.8-10.8)
[2025-05-10 07:16] LABS: Anion Gap 13 (12-20); Blood Urea Nitrogen 24 mg/dL (9-16); Calcium 8.9 mg/dL (8.4-10.2); Carbon Dioxide 22 mmol/L (22-29); Chloride 111 mmol/L (96-108); Estimated Glomerular Filt Rate > 60; Potassium 4.2 mmol/L (3.3-5.1); Sodium 142 mmol/L (135-145)
== END 2025-05-10 06:40 | disposition home or self-care (01) ==
LOC: HO.MMNH3L 06:39
PROVIDERS: Visit Provider Student in an Organized Health Care Education/Training Program
DX: I48.92 Unspecified atrial flutter (principal)
CPT/HCPCS: 36415; 80048; 85025

== ENCOUNTER 2025-05-17 07:13 | Outpatient (REF) | payer MEDICARE, MEDICAID, SELFPAY ==
[2025-05-17 07:15] LABS: MANUAL DIFF FLAG NO
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
--- OUTSIDE RECORDS SUMMARY | 2025-05-17 07:16 | XMS_ITS | Clinical Summary ---
Author Organization [address] [facility] Address [address] [place] [address] Phone Care Team Providers Care Edge Burnisher Name Role Phone Rex Bass MD Primary Care Provider [phone] Allergies Active Allergy Reactions Criticality Noted Date [...] Problem Noted Date Diagnosed Date Atrial flutter ([facility] V24, [facility] V28) 2021 Overview (08/28/2024): Last Assessment [...] HISTORICAL CHOLECYSTECTOMY OTHER SURGICAL HISTORY 12/14/2013 PROCEDURE: CA EGD PARTIAL/COMPL ESOPHAGOGASTRIC FUNDOPLASTY COLONOSCOPY 02/09/2016 PROCEDURE: HISTORICAL COLONOSCOPY OTHER SURGICAL HISTORY 05/14/2013 PROCEDURE: CA ECHO TRANSTHORAC R-T 2D W/WO M-MODE REC COMP OTHER SURGICAL HISTORY 03/13/2013 PROCEDURE: CA CABG W/ARTERIAL GRAFT THREE ARTERIAL GRAFTS OTHER SURGICAL HISTORY 12/06/2008 PROCEDURE: CA EGD PARTIAL/COMPL ESOPHAGOGASTRIC FUNDOPLASTY CARPAL TUNNEL RELEASE PROCEDURE: CA NEUROPLASTY &/TRANSPOS MEDIAN NRV CARPAL TUNNE; COMMENT: [...] CMS/HCC V28) DX:Chronic obstructive pulm onary disease ([facility]) Chronic pain DX:Chronic pain Compression fracture of L1 l umbar vertebra ([facility] V24, [facility] V28) DX:Compression fra cture of L1 lumbar vertebra ([facility]); COMMENT: and t12 vertebra Degeneration macular DX:Degenera tion macular Depression DX:Depression Diabetes type 2, controlled ([facility] V24, [facility] V28) DX:Diabetes type 2, controll ed ([facility]) Diverticulitis DX:Diverticuliti s Elevated LFTs DX:Elevated [...] 2 obesi ty Osteoporosis DX:Osteoporosis Primary hyperparathyroidism ([facility] V24) DX:Primary hyperparathyroidi sm ([facility]) Recurrent falls DX:Recurrent fal ls Restless [...] patient's age to complete this topic Insurance [facility] MEDICAID - [place] MEDICARE Advance Directives Documents on File Type Date Recorded 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
[2025-05-17 07:28] LABS: Hematocrit 37.3 % (37.0-47.0); Hemoglobin 12.4 g/dl (12.0-16.0); Imm Gran Abs Auto 0.03 X10*3/uL (0.00-0.03); Imm Gran Pct Auto 0.4 % (0.0-0.4); Lymphocytes Absolute Auto 1.0 X10*3/uL (1.2-4.9); Mean Corpuscular HGB Conc 33.2 g/dl (31.0-35.0); Mean Corpuscular Hemoglobin 32.8 pg (27.0-33.0); Mean Corpuscular Volume 98.7 fL (80.0-98.0); NRBC Abs Auto 0.000 X10*3/uL (0.0-0.012); NRBC Pct Auto 0.0 /100WBC (0.0-0.2); Platelet Count 163 X10*3/uL (160-400); Red Blood Count 3.78 X10*6/uL (4.20-5.50); White Blood Count 7.8 X10*3/uL (4.8-10.8)
[2025-05-17 07:58] LABS: Anion Gap 12 (12-20); Blood Urea Nitrogen 21 mg/dL (9-16); Calcium 9.3 mg/dL (8.4-10.2); Carbon Dioxide 24 mmol/L (22-29); Chloride 108 mmol/L (96-108); Estimated Glomerular Filt Rate > 60; Potassium 3.8 mmol/L (3.3-5.1); Sodium 140 mmol/L (135-145)
== END 2025-05-17 07:14 | disposition home or self-care (01) ==
LOC: HO.MMNH3L 07:13
PROVIDERS: Visit Provider Student in an Organized Health Care Education/Training Program
DX: I25.10 Atherosclerotic heart disease of native coronary artery without angina pectoris (principal); E78.5 Hyperlipidemia, unspecified; E21.3 Hyperparathyroidism, unspecified; J44.9 Chronic obstructive pulmonary disease, unspecified; N18.2 Chronic kidney disease, stage 2 (mild)
CPT/HCPCS: 36415; 80048; 85025

== ENCOUNTER 2025-05-19 05:15 | Outpatient (REF) | payer MEDICARE, MEDICAID, SELFPAY ==
[2025-05-19 05:17] LABS: MANUAL DIFF FLAG NO
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
[2025-05-19 05:24] LABS: Hematocrit 38.2 % (37.0-47.0); Hemoglobin 12.8 g/dl (12.0-16.0); Imm Gran Abs Auto 0.08 X10*3/uL (0.00-0.03); Imm Gran Pct Auto 0.6 % (0.0-0.4); Lymphocytes Absolute Auto 0.9 X10*3/uL (1.2-4.9); Mean Corpuscular HGB Conc 33.5 g/dl (31.0-35.0); Mean Corpuscular Hemoglobin 33.1 pg (27.0-33.0); Mean Corpuscular Volume 98.7 fL (80.0-98.0); NRBC Abs Auto 0.000 X10*3/uL (0.0-0.012); NRBC Pct Auto 0.0 /100WBC (0.0-0.2); Platelet Count 143 X10*3/uL (160-400); Red Blood Count 3.87 X10*6/uL (4.20-5.50); White Blood Count 12.4 X10*3/uL (4.8-10.8)
[2025-05-19 05:31] LABS: Ammonia 37 umol/L (13-55)
[2025-05-19 05:46] LABS: Alanine Aminotransferase 15 U/L (0-31); Albumin Level 3.4 g/dL (3.5-5.0); Alkaline Phosphatase 74 U/L (39-117); Anion Gap 15 (12-20); Aspartate Amino Transferase 32 U/L (5-31); Blood Urea Nitrogen 20 mg/dL (9-16); Calcium 8.8 mg/dL (8.4-10.2); Carbon Dioxide 19 mmol/L (22-29); Chloride 106 mmol/L (96-108); Estimated Glomerular Filt Rate 56; Potassium 3.3 mmol/L (3.3-5.1); Sodium 137 mmol/L (135-145); Total Protein 6.2 g/dL (6.5-8.0)
[2025-05-19 06:01] LABS: Thyroid Stimulating Hormone 3.00 uIU/mL (0.32-4.0)
== END 2025-05-19 05:16 | disposition home or self-care (01) ==
LOC: HO.MMNH3L 05:15
PROVIDERS: Visit Provider Student in an Organized Health Care Education/Training Program
DX: I25.10 Atherosclerotic heart disease of native coronary artery without angina pectoris (principal); F03.93 Unspecified dementia, unspecified severity, with mood disturbance; J44.9 Chronic obstructive pulmonary disease, unspecified
CPT/HCPCS: 36415; 80053; 82140; 84443; 85025

== ENCOUNTER 2025-05-19 15:53 | Inpatient (IN) | payer MEDICARE, MEDICAID, SELFPAY ==
[2025-05-19] VITALS (8 sets, daily range): BP systolic 80–143; BP diastolic 24–112; PULSE 52–69; RESP 12–18; TEMP 37.9–38.7; O2SAT 93–100; BMI 26.7
--- NOTE | 2025-05-19 | ECG_ITS ---
Test Reason : BRADYCARDIA Blood Pressure : */* mmHG Vent. Rate : 59 BPM Atrial Rate : 59 BPM P-R Int : 230 ms QRS Dur : 84 ms QT Int : 364 ms P-R-T Axes : 48 -4 -9 degrees QTcB Int : 360 ms Sinus bradycardia with 1st degree A-V block Anterior infarct , age undetermined Abnormal ECG When compared with ECG of 10-Dec-2024 20:51, OR interval has increased Questionable change in QRS duration Anterior infarct is now Present Referred By: Rocky Vasquez Electronically Signed By: Blaine Kasper
--- NOTE | 2025-05-19 16:14 | ED.GENADULT ---
HPI - General Adult General Chief complaint: General Medical Stated complaint: ? UTI Time Seen by Provider: 05/19/25 16:12 Source: patient Mode of arrival: ambulatory Limitations: no limitations History of Present Illness ED Provider: HPI narrative: Patient is 89 years old with history of dementia history of Gram-negative bacteremia in 12/29 brought from retirement for increased agitation no fever no nausea no vomiting no abdominal pain patient has had labs done earlier today which showed WBC count of 12.4 on arrival patient's seems to be relaxed without any distress Related Data Home Medications ?Medication ?Instructions ?Recorded ?Confirmed acetaminophen 325 mg tablet 650 mg PO Q6H PRN Fever Or Pain 04/05/24 05/19/25 (Tylenol) amiodarone 200 mg tablet 200 mg PO DAILY 04/05/24 05/19/25 ascorbic acid (vitamin C) 250 mg 500 mg PO DAILY 04/05/24 05/19/25 tablet (Vitamin C) atorvastatin 20 mg tablet 20 mg PO BEDTIME 04/05/24 05/19/25 bisacodyl 10 mg rectal suppository 10 mg NM DAILY PRN Constipation 04/05/24 05/19/25 (Dulcolax (bisacodyl)) cholecalciferol (vitamin D3) 25 50 mcg PO DAILY 04/05/24 05/19/25 mcg (1,000 unit) tablet (Vitamin D3) dextromethorphan-guaifenesin 10 10 ml PO Q4H PRN Cough 04/05/24 05/19/25 mg-100 mg/5 mL oral syrup diclofenac sodium 1 % topical gel 4 g topical DAILY 04/05/24 05/19/25 diclofenac sodium 1 % topical gel 4 g topical Q6H PRN neck pain 04/05/24 05/19/25 escitalopram oxalate 10 mg tablet 30 mg PO DAILY 04/05/24 05/19/25 ferrous sulfate 325 mg (65 mg 325 mg PO DAILY 04/05/24 05/19/25 iron) tablet,delayed release furosemide 20 mg tablet 10 mg PO DAILY 04/05/24 05/19/25 gabapentin 300 mg capsule 300 mg PO BID 04/05/24 05/19/25 loperamide 2 mg tablet 2 mg PO Q2H PRN Diarrhea 04/05/24 05/19/25 magnesium hydroxide 400 mg/5 mL 30 ml PO DAILY PRN Constipation 04/05/24 05/19/25 oral suspension (Milk of Magnesia) pantoprazole 40 mg tablet,delayed 40 mg PO DAILY@0630 04/05/24 05/19/25 release polyethylene glycol 3350 17 gram 17 g PO DAILY 04/05/24 05/19/25 oral powder packet (Miralax) ropinirole 2 mg tablet 2 mg PO BID 04/05/24 05/19/25 sennosides 8.6 mg-docusate sodium 1 tab-cap PO BID PRN Constipation 04/05/24 05/19/25 50 mg tablet (Senna with Docusate Sodium) sodium chloride 0.65 % nasal spray 2 spray intranasal BID 04/05/24 05/19/25 aerosol (Saline Nasal) sodium phosphates 19 gram-7 118 ml NM DAILY PRN Constipation 04/05/24 05/19/25 gram/118 mL enema (Fleet Enema) tramadol 50 mg tablet 50 mg PO BID PRN Pain 04/05/24 05/19/25 trazodone 50 mg tablet 25 mg PO BEDTIME 04/05/24 05/19/25 furosemide 20 mg tablet 20 mg PO DAILY PRN Weight Gain 12/10/24 05/19/25 fluticasone furoate 100 1 ea inhalation DAILY 05/19/25 05/19/25 mcg-vilanterol 25 mcg/dose inhalation powder (Breo Ellipta) ondansetron HCl 4 mg tablet 4 mg PO Q6H 05/19/25 05/19/25 tramadol 50 mg tablet 50 mg PO BEDTIME 05/19/25 05/19/25 Previous Rx's ?Medication ?Instructions ?Recorded amlodipine 2.5 mg tablet 2.5 mg PO DAILY 90 days #90 tabs 12/13/24 aspirin 81 mg tablet,delayed 81 mg PO DAILY #90 tabs 12/13/24 release Allergies Allergy/AdvReac Type Severity Reaction Status Date / Time lisinopril Allergy Unknown Unknown Uncoded 05/19/25 16:09 Review of Systems Review of Systems: Yes all other systems are reviewed and are negative [facility] Past Medical History Medical History Combined systolic and diastolic congestive heart failure Coronary artery disease Hypertension Hypercholesteremia Chronic renal failure Palpitations Anxiety Depression Diabetes mellitus, type 2 COPD (chronic obstructive pulmonary disease) Surgical History H/O coronary artery bypass surgery Social History Social History Household Members: None Housing: Assisted Living Facility Do you presently have visiting nurse or other home services: No Alcohol intake: never Patient Tobacco Use Status: Never used Tobacco Smoked in Last 30 Days: No Advance Directives: Yes Advance Directives on File: Yes Advance Directives Date on File: 01/30/24 service: No Physical Exam ED Vital Signs: Vital Signs - 24 hr 05/19/25 16:02 05/19/25 18:15 05/19/25 20:09 Temperature 100.9 F H 100.2 F 101.5 F H Pulse Rate 63 64 69 Respiratory Rate 18 13 18 Blood Pressure 110/48 L 117/50 L 143/93 H Pulse Oximetry 93 100 95 Oxygen Delivery Method Room Air Room Air Room Air BMI result Body Mass Index 26.7 Appearance: Alert. Oriented X2-3. No acute distress. Eyes: PERRLA, No Nystagmus ENT: Pharynx normal. Oral Mucosa moist Neck: Normal inspection. Neck supple. CVS: Normal heart rate and rhythm. Pulses normal. Respiratory: No respiratory distress. Equal air entry bilateral, no wheezing/rales/rhonchi Abdomen: Soft and nontender. Bowel sounds are present, no mass palpable, no CVA tenderness Skin: Skin warm and dry. Normal skin color. Normal skin turgor. Extremities: No lower extremity edema. No calf tenderness Neuro: Oriented X 2-3. No motor deficit. No sensory deficit.No cerebellar signs , cranial nerves II-XII intact Medications Administered Generic Name Dose Route Start Last Admin Trade Name Freq PRN Reason Stop Dose Admin Lactated Ringer's 1,000 mls @ 100 mls/hr 05/19/25 23:15 05/20/25 00:46 Lr IVCONT 05/20/25 09:14 0 mls/hr .Q10H LAURA Infusion Sodium Chloride 3 ml 05/20/25 00:00 05/19/25 23:32 0.9 % Sodium Chloride Flush 3 Ml Syringe IVFLUSH Not Given QSHIFT LAURA Discontinued Medications Generic Name Dose Route Start Last Admin Trade Name Freq PRN Reason Stop Dose Admin Ceftriaxone Sodium 2 gm 05/19/25 19:48 05/19/25 20:39 Ceftriaxone Sodium 2 Gm Vial IVPUSH 05/19/25 19:49 2 gm ONCE ONE Administration Sodium Chloride 1,000 mls @ 999 mls/hr 05/19/25 16:24 05/19/25 17:57 Ns IV 05/19/25 17:24 Infused .Q1H1M ONE Infusion Acetaminophen 1,000 mg in 100 mls @ 400 mls/hr 05/19/25 20:52 05/19/25 21:18 Ofirmev IV 05/19/25 21:06 Infused ONCE ONE Infusion Sodium Chloride 1,000 mls @ 999 mls/hr 05/19/25 20:52 05/19/25 21:04 Ns IV 05/19/25 21:52 999 mls/hr .Q1H1M ONE Administration Lactated Ringer's 1,000 mls @ 999 mls/hr 05/19/25 23:01 05/19/25 23:04 Lr IV 05/20/25 00:01 999 mls/hr .Q1H1M STA Administration Albumin Human 100 mls @ 133.333 mls/hr 05/20/25 00:39 05/20/25 00:45 Kedbumin 25 % IV 05/20/25 01:23 133.33 mls/hr Q1H STA Administration Medical Decision Making Medical Decision Making [facility] Narrative: Patient is 89 years old with history of Gram-negative bacteremia comes here for increased lethargy and foul-smelling urine workup showed patient had fever no lactic acidosis has slightly elevated WBC count with UTI meeting the criteria for sepsis but not in septic shock patient has received IV fluids and IV antibiotics will admit patient for further evaluation Differential Diagnosis Differential Diagnoses: The differential diagnosis associated with the presentation includes UTI/bacteremia/ Admission/Observation Consideration of admission/observation: Escalation of care including admission/observation considered Consult Healthcare Provider Management of the patient was discussed with: Hospitalist Lab Data [facility] Lab Attestation statement: I reviewed the patient's lab results. 05/19/25 16:31 05/19/25 16:31 Labs: Lab Results 05/19/25 05/19/25 05/19/25 Range/Units 16:31 16:41 17:10 WBC 13.1 H (4.8-10.8) X10*3/uL RBC 4.19 L (4.20-5.50) X10*6/uL Hgb 13.6 (12.0-16.0) g/dl Hct 40.5 (37.0-47.0) % MCV 96.7 (80.0-98.0) fL MCH 32.5 (27.0-33.0) pg MCHC 33.6 (31.0-35.0) g/dl RDW 14.0 (11.0-16.0) % Plt Count 198 D (160-400) X10*3/uL MPV 10.1 (9.4-12.3) fL Immature Gran % (Auto) 0.5 H (0.0-0.4) % Neut % (Auto) 84.5 H (45-73) % Lymph % (Auto) 6.3 L (20-40) % [place] % (Auto) 8.5 (2-11) % Eos % (Auto) 0.0 (0-4) % Baso % (Auto) 0.2 (0-2) % Lymph # (Auto) 0.8 L (1.2-4.9) X10*3/uL [place] # (Auto) 1.1 (0.1-1.2) X10*3/uL Eos # (Auto) 0.0 (0.0-0.4) X10*3/uL Baso # (Auto) 0.0 (0.0-0.2) X10*3/uL Abs Immat Gran (auto) 0.07 H (0.00-0.03) X10*3/uL Absolute Neuts (auto) 11.1 H (2.0-8.3) x10*3/uL Absolute Nucleated RBC 0.000 (0.0-0.012) X10*3/uL Nucleated RBC % (auto) 0.0 (0.0-0.2) /100WBC Hold Purple Top SEE NOTE Sodium 137 (135-145) mmol/L Potassium 4.0 D (3.3-5.1) mmol/L Chloride 102 (96-108) mmol/L Carbon Dioxide 21 L (22-29) mmol/L Anion Gap 18 (12-20) BUN 30 H (9-16) mg/dL Creatinine 1.33 (0.5-1.4) mg/dL Estim Creat Clear Calc 31.3 Estimated GFR 38 Random Glucose 108 (60-115) mg/dL Lactic Acid 1.6 (0.5-2.0) mmol/L Calcium 9.3 (8.4-10.2) mg/dL Magnesium 1.9 (1.6-2.6) mg/dL Urine Color Dark Yellow Urine Appearance Turbid Urine pH 5.5 (5.0-9.0) Ur Specific [place] 1.015 (1.005-1.025) Urine Protein 100 (2+) H (Neg-Trace) mg/dL Urine Glucose (UA) Negative (Negative) mg/dL Urine Ketones Trace (Negative) mg/dL Urine Blood Large (3+) H (Negative) Urine Nitrite Negative (Negative) Ur Leukocyte Esterase Large (3+) H (Negative) Urine RBC 3-5 H (0-2) /HPF Urine WBC >50 H (0-5) /HPF Ur Squamous Epith Cells 11-20 (0-2) /HPF Urine Bacteria 4+ (None Seen) Hyaline Casts >20 (0-2) /LPF Independent Interpretation I performed an independent interpretation of an: EKG Interpretation: Sinus bradycardia with heart rate 59 beats per minute poor progression of R-wave no acute STT wave changes no acute ischemia External Record Review External record reviewed: Inpatient record and Primary care record Discharge Plan Discharge Clinical Impression: Acute UTI, Sepsis Patient Disposition: Admitted As Inpatient
[2025-05-19 16:37] LABS: MANUAL DIFF FLAG NO
[2025-05-19 16:39] LABS: Hematocrit 40.5 % (37.0-47.0); Hemoglobin 13.6 g/dl (12.0-16.0); Imm Gran Abs Auto 0.07 X10*3/uL (0.00-0.03); Imm Gran Pct Auto 0.5 % (0.0-0.4); Lymphocytes Absolute Auto 0.8 X10*3/uL (1.2-4.9); Mean Corpuscular HGB Conc 33.6 g/dl (31.0-35.0); Mean Corpuscular Hemoglobin 32.5 pg (27.0-33.0); Mean Corpuscular Volume 96.7 fL (80.0-98.0); NRBC Abs Auto 0.000 X10*3/uL (0.0-0.012); NRBC Pct Auto 0.0 /100WBC (0.0-0.2); Platelet Count 198 X10*3/uL (160-400); Red Blood Count 4.19 X10*6/uL (4.20-5.50); White Blood Count 13.1 X10*3/uL (4.8-10.8)
[2025-05-19 17:08] LABS: Anion Gap 18 (12-20); Blood Urea Nitrogen 30 mg/dL (9-16); Calcium 9.3 mg/dL (8.4-10.2); Carbon Dioxide 21 mmol/L (22-29); Chloride 102 mmol/L (96-108); Creatinine Clr Calc Pharmacy 31.3; Estimated Glomerular Filt Rate 38; Magnesium 1.9 mg/dL (1.6-2.6); Potassium 4.0 mmol/L (3.3-5.1); Sodium 137 mmol/L (135-145)
--- NOTE | 2025-05-19 17:14 | MHC.EDTECH ---
200mL drained from straight cath. UA sample collected and sent to lab.
[2025-05-19 17:22] LABS: Appearance Urine Turbid; Glucose Urine UA Negative (Negative); PH 5.5 (5.0-9.0); Specific Gravity - Urine 1.015 (1.005-1.025); UMIC TRIGGER UACC YES
[2025-05-19 17:38] LABS: UACC Culture Trigger YES
--- NOTE | 2025-05-19 17:43 | PC.NURSE ---
Pt BIBA from SNF for concerns of UTI and elevated WBC on routine labwork. Pt is A/O x 1 at baseline, calm and cooperative with care. Noted to be warm to touch, temp rectal 100.9. MD bedside and labs order/collected. U/A obtained via straight cath and sent. IVF infusing per MAR.
--- NOTE | 2025-05-19 19:28 | MHC.EDTECH ---
Pt placed on purewick, repositioned in bed, no other needs at the moment
--- NOTE | 2025-05-19 21:20 | PC.NURSE ---
pts daughter called to see how pt was doing. at the time pt was asleep. RN informed her she had a fever upon arrival- abx were to be given d/t suspected infection Pt had a high wbc. Pts daughter Milagro lives in [place] and is her HCP. Her phone # is . She wishes to be updated with any results.
--- NOTE | 2025-05-19 22:08 | PHA.MEDREC ---
Addendum entered by Errol Malcolm PharmD 05/19/25 22:11: reviewed Original Note: Pharmacy Consult ? Medication Reconciliation Pharmacy has completed the medication reconciliation. utilized list from [facility] to confirm med list.
[2025-05-19] MEDS: Lactated Ringers 1,000 ML 999 ML IV (23:04)
--- NOTE | 2025-05-19 23:27 | PM.IMHP ---
History of Present Illness Date of Service: 05/19/25 Attending physician on admission: Rocky Vasquez Chief Complaint: Worsening confusion, ?Urinary tract infection Shreya Calvert is 89 years old woman with a past medical history significant for dementia with mood disorder, depression, anxiety, and GERD, anemia, hyperparathyroidism, hyperlipidemia, restless leg syndrome essential hypertension, CKD stage 2, combined systolic + diastolic CHF, CAD and atrial flutter was brought to the ED via ambulance from [facility] for possible UTI. She was found to have foul-smelling urine, increased agitation and confusion. Seems like the patient is only oriented to person at baseline. On evaluation, patient will be drawn answer any of my questions, however, she was following simple commands. In the ED, she was found to have stable vital signs. Her temperature was found to be elevated (max 101.6). Blood workup was remarkable for leukocytosis of 13.1. There is no lactic acidosis. Hemoglobin is 13.6 and platelets 198. There are no significant electrolyte imbalances. CO2 is 21, BUN 30 and creatinine 1.33. LFTs are unremarkable. Urinalysis consistent with urinary tract infection. ED tx: NS 2 L bolus, ceftriaxone 2 g IV, acetaminophen 1 g IV [facility] Medical History Combined systolic and diastolic congestive heart failure Coronary artery disease Hypertension Hypercholesteremia Chronic renal failure Palpitations Anxiety Depression Diabetes mellitus, type 2 COPD (chronic obstructive pulmonary disease) Surgical History H/O coronary artery bypass surgery Social History Household Members: None Housing: Assisted Living Facility Do you presently have visiting nurse or other home services: No Alcohol intake: never Patient Tobacco Use Status: Never used Tobacco Smoked in Last 30 Days: No Advance Directives: Yes Advance Directives on File: Yes Advance Directives Date on File: 01/30/24 service: No Meds Allergies Allergy/AdvReac Type Severity Reaction Status Date / Time lisinopril Allergy Unknown Unknown Uncoded 05/19/25 16:09 Active Medications: Current Medications Acetaminophen (Acetaminophen 325 Mg Tablet) 975 mg PO Q6H PRN PRN Reason: Pain, Mild 1-3,fever,headache Ceftriaxone Sodium (Ceftriaxone Sodium 1 Gm Vial) 1 gm IVPUSH Q24H COUNTS INCLUDE 234 BEDS AT THE [facility] Heparin Sodium (Porcine) (Heparin Sodium,Porcine 5,000 Unit/Ml Vial) 5,000 unit SUBCUT Q12H COUNTS INCLUDE 234 BEDS AT THE [facility] Lactated Ringer's (Lr) 1,000 mls @ 999 mls/hr IV .Q1H1M STA Stop: 05/20/25 00:01 Last Admin: 05/19/25 23:04 Dose: 999 mls/hr Lactated Ringer's (Lr) 1,000 mls @ 100 mls/hr IVCONT .Q10H COUNTS INCLUDE 234 BEDS AT THE [facility] Stop: 05/20/25 09:14 Sodium Chloride (0.9 % Sodium Chloride Flush 3 Ml Syringe) 3 ml IVFLUSH QSHIFT COUNTS INCLUDE 234 BEDS AT THE [facility] Home Medications ?Medication ?Instructions ?Recorded ?Confirmed ?Last Taken ?Type acetaminophen 325 mg tablet 650 mg PO Q6H PRN Fever Or Pain 04/05/24 05/19/25 Unknown History (Tylenol) amiodarone 200 mg tablet 200 mg PO DAILY 04/05/24 05/19/25 Unknown History ascorbic acid (vitamin C) 250 mg 500 mg PO DAILY 04/05/24 05/19/25 Unknown History tablet (Vitamin C) atorvastatin 20 mg tablet 20 mg PO BEDTIME 04/05/24 05/19/25 Unknown History bisacodyl 10 mg rectal suppository 10 mg CA DAILY PRN Constipation 04/05/24 05/19/25 Unknown History (Dulcolax (bisacodyl)) cholecalciferol (vitamin D3) 25 50 mcg PO DAILY 04/05/24 05/19/25 Unknown History mcg (1,000 unit) tablet (Vitamin D3) dextromethorphan-guaifenesin 10 10 ml PO Q4H PRN Cough 04/05/24 05/19/25 Unknown History mg-100 mg/5 mL oral syrup diclofenac sodium 1 % topical gel 4 g topical DAILY 04/05/24 05/19/25 Unknown History diclofenac sodium 1 % topical gel 4 g topical Q6H PRN neck pain 04/05/24 05/19/25 Unknown History escitalopram oxalate 10 mg tablet 30 mg PO DAILY 04/05/24 05/19/25 Unknown History ferrous sulfate 325 mg (65 mg 325 mg PO DAILY 04/05/24 05/19/25 Unknown History iron) tablet,delayed release furosemide 20 mg tablet 10 mg PO DAILY 04/05/24 05/19/25 Unknown History gabapentin 300 mg capsule 300 mg PO BID 04/05/24 05/19/25 Unknown History loperamide 2 mg tablet 2 mg PO Q2H PRN Diarrhea 04/05/24 05/19/25 Unknown History magnesium hydroxide 400 mg/5 mL 30 ml PO DAILY PRN Constipation 04/05/24 05/19/25 Unknown History oral suspension (Milk of Magnesia) pantoprazole 40 mg tablet,delayed 40 mg PO DAILY@0630 04/05/24 05/19/25 Unknown History release polyethylene glycol 3350 17 gram 17 g PO DAILY 04/05/24 05/19/25 Unknown History oral powder packet (Miralax) ropinirole 2 mg tablet 2 mg PO BID 04/05/24 05/19/25 Unknown History sennosides 8.6 mg-docusate sodium 1 tab-cap PO BID PRN Constipation 04/05/24 05/19/25 Unknown History 50 mg tablet (Senna with Docusate Sodium) sodium chloride 0.65 % nasal spray 2 spray intranasal BID 04/05/24 05/19/25 Unknown History aerosol (Saline Nasal) sodium phosphates 19 gram-7 118 ml CA DAILY PRN Constipation 04/05/24 05/19/25 Unknown History gram/118 mL enema (Fleet Enema) tramadol 50 mg tablet 50 mg PO BID PRN Pain 04/05/24 05/19/25 Unknown History trazodone 50 mg tablet 25 mg PO BEDTIME 04/05/24 05/19/25 Unknown History furosemide 20 mg tablet 20 mg PO DAILY PRN Weight Gain 12/10/24 05/19/25 Unknown History fluticasone furoate 100 1 ea inhalation DAILY 05/19/25 05/19/25 Unknown History mcg-vilanterol 25 mcg/dose inhalation powder (Breo Ellipta) ondansetron HCl 4 mg tablet 4 mg PO Q6H 05/19/25 05/19/25 Unknown History tramadol 50 mg tablet 50 mg PO BEDTIME 05/19/25 05/19/25 Unknown History Physical Exam Vital Signs and Narrative: Vital Signs: Last Vital Signs Temp 101.6 F H 05/19/25 21:57 Pulse 52 05/19/25 23:10 Resp 14 05/19/25 23:10 BP 96/24 L 05/19/25 23:10 Pulse Ox 94 05/19/25 23:10 O2 Del Method Room Air 05/19/25 23:10 BMI result Body Mass Index 26.7 Constitutional - lethargic, open eyes upon calling her name HEENT - Atraumatic head, PERRL Heart - Bradycardia, normal rhythm. Lungs - Normal lung expansion, poor respiratory effort, No respiratory distress, CTA bilaterally Abdomen - NT / ND; +BS; No rebound or guarding Extremities - no calf tenderness bilaterally, no swelling Musculoskeletal - generalized atrophy Skin - Warm/Dry Neurological - Lethargic, no facial droop Psychological - no agitation Results Labs 05/19/25 16:31 05/19/25 16:31 Labs: Laboratory Results - last 24 hr 05/19/25 05/19/25 05/19/25 16:31 16:41 17:10 MCV 96.7 MCH 32.5 MCHC 33.6 RDW 14.0 Plt Count 198 D MPV 10.1 Immature Gran % (Auto) 0.5 H Neut % (Auto) 84.5 H Lymph % (Auto) 6.3 L [place] % (Auto) 8.5 Eos % (Auto) 0.0 Baso % (Auto) 0.2 Lymph # (Auto) 0.8 L [place] # (Auto) 1.1 Eos # (Auto) 0.0 Baso # (Auto) 0.0 Abs Immat Gran (auto) 0.07 H Absolute Neuts (auto) 11.1 H Absolute Nucleated RBC 0.000 Nucleated RBC % (auto) 0.0 Hold Purple Top SEE NOTE Anion Gap 18 Estim Creat Clear Calc 31.3 Estimated GFR 38 Random Glucose 108 Lactic Acid 1.6 Calcium 9.3 Magnesium 1.9 Urine Color Dark Yellow Urine Appearance Turbid Urine pH 5.5 Ur Specific [place] 1.015 Urine Protein 100 (2+) H Urine Glucose (UA) Negative Urine Ketones Trace Urine Blood Large (3+) H Urine Nitrite Negative Ur Leukocyte Esterase Large (3+) H Urine RBC 3-5 H Urine WBC >50 H Ur Squamous Epith Cells 11-20 Urine Bacteria 4+ Hyaline Casts >20 Assessment and Plan (1) Acute encephalopathy: Status: Acute (2) Acute UTI: Status: Acute (3) Sepsis: Status: Acute Plan Shreya Calvert is 89 y/o woman with a PMHx sigficant for dementia presents with: Acute encephalopathy secondary to urinary tract infection. Aspiration and fall precautions. Telemetry. Pulse oximetry. Continue empiric IV antibiotic therapy with ceftriaxone. Blood and urine cultures obtained -will follow results. Hold trazodone, gabapentin and tramadol. Hypotension. Likely secondary to sepsis secondary to urinary tract infection. Hold furosemide and amlodipine. Ringer lactate 1 L bolus stat then continuous IV fluids. Recheck lactic acid stat. Acute on chronic kidney disease. Continue IV fluids. Continue to monitor renal function. GERD. Continue PPI Chronic anemia. Continue iron. Hyperlipidemia. Continue atorvastatin. Constipation. Continue MiraLax, senna p.r.n., Fleet enema p.r.n., milk of magnesium p.r.n., because of the p.r.n.. Hx of systolic and diastolic CHF. Not in acute decompensation. Continue Lasix. Essential hypertension. Amlodipine on hold due to hypotension. Continue to monitor. Depression. Continue citalopram. Hx of a - flutter. Currently rhythm and rate control. Check EKG. Continue if BP allows. Restless leg syndrome. Continue Code status: DNR/DNI (per nursing facility paperwork) DVT prophylaxis: Heparin Patient will need hospitalization for at least 2 midnights for acute encephalopathy secondary to urinary tract infection treatment with IV antibiotics and IV fluids. Patient will need continuous monitoring of her vital signs and neurological status. Quality Stroke Does the patient have a stroke diagnosis?: No VTE Prior VTE?: No VTE Risk Level:: Medical - moderate - high VTE Device Contraindication: Treatment Not Indicated VTE Drug Contraindication: N/A - Med Ordered
[2025-05-19] MEDS: Lactated Ringers 1,000 ML 100 ML IVCONT (23:31)
--- NOTE | 2025-05-19 23:52 | PC.NURSE ---
pts BP was dropping to 80s/20s - MD was made aware. Attempted second additional line- pt agitated and refusing. Even getting BP has been difficult. Pt is getting medicated as per mar. Will continue to monitor.
[2025-05-20] VITALS (11 sets, daily range): BP systolic 82–125; BP diastolic 31–61; PULSE 49–80; RESP 12–20; TEMP 36–36.7; O2SAT 80–100; BMI 26.7
[2025-05-20] MEDS: Albumin Human 25 % 100 ML 133.33 ML IV (00:45)
--- NOTE | 2025-05-20 01:16 | PC.NURSE ---
Addendum entered by Marion Green RN 05/20/25 01:19: pt was put in [place] position prior to contacting MD to see if this attempt would help with the hypotension. Original Note: At 0034 pts bp begin to drop into the 80s again. RN reached out to admitting provider. Provider ordered albumin; stated to pause LR infusing on the pump until albumin finished infusing. Will continue to monitor.
--- NOTE | 2025-05-20 01:29 | PC.NURSE ---
Addendum entered by Marion Green RN 05/20/25 01:32: Provider denies any intervention at this moment. Original Note: RN informed admitting that post bladder scan pt has 374 mL in bladder.
[2025-05-20 02:07] LABS: Resp Syncy Virus RNA Qual PCR NEGATIVE (Negative); SARS COV2 PCR INHOUSE NEGATIVE (Negative)
[2025-05-20 05:28] LABS: MANUAL DIFF FLAG NO
[2025-05-20 05:31] LABS: Hematocrit 36.8 % (37.0-47.0); Hemoglobin 11.9 g/dl (12.0-16.0); Imm Gran Abs Auto 0.04 X10*3/uL (0.00-0.03); Imm Gran Pct Auto 0.5 % (0.0-0.4); Lymphocytes Absolute Auto 0.8 X10*3/uL (1.2-4.9); Mean Corpuscular HGB Conc 32.3 g/dl (31.0-35.0); Mean Corpuscular Hemoglobin 32.5 pg (27.0-33.0); Mean Corpuscular Volume 100.5 fL (80.0-98.0); NRBC Abs Auto 0.000 X10*3/uL (0.0-0.012); NRBC Pct Auto 0.0 /100WBC (0.0-0.2); Platelet Count 124 X10*3/uL (160-400); Red Blood Count 3.66 X10*6/uL (4.20-5.50); White Blood Count 7.8 X10*3/uL (4.8-10.8)
[2025-05-20 09:14] LABS: Alanine Aminotransferase 21 U/L (0-31); Albumin Level 3.4 g/dL (3.5-5.0); Alkaline Phosphatase 67 U/L (39-117); Anion Gap 13 (12-20); Aspartate Amino Transferase 40 U/L (5-31); Blood Urea Nitrogen 24 mg/dL (9-16); Calcium 8.5 mg/dL (8.4-10.2); Carbon Dioxide 19 mmol/L (22-29); Chloride 108 mmol/L (96-108); Creatinine Clr Calc Pharmacy 48.4; Estimated Glomerular Filt Rate > 60; Magnesium 1.8 mg/dL (1.6-2.6); Potassium 3.0 mmol/L (3.3-5.1); Sodium 137 mmol/L (135-145); Total Protein 5.7 g/dL (6.5-8.0)
--- NOTE | 2025-05-20 09:44 | PC.NURSE ---
tigered Dr. Taylor regarding Daughter states her heart rate is not usually that low. K-3.0 Also states her mom has some heart failure. Dr. Taylor ordered some K states she does not need telemetry. has been marquez for years.
[2025-05-20] MEDS: Fluticasone/Vilanterol 100/25 BLST.W.DEV 1 PUFF INHALE (09:53)
[2025-05-20] MEDS: Aspirin Enteric Coated 81 MG TABLET.DR PO (09:54)
[2025-05-20] MEDS: Ferrous Sulfate 324 MG TABLET.DR PO (09:55)
[2025-05-20] MEDS: Potassium Chloride ER 20 MEQ TAB.ER.PRT 40 MEQ PO (09:55)
--- NOTE | 2025-05-20 10:51 | MHC.CM.PN ---
Addendum entered by Guera Cobian 05/20/25 10:55: PCP is: Dr. Jorge Paige Original Note: IMM 05/20/25, verbally discussed with HCP, ROSE Humphrey to obtain copy from [facility]. Pt. lives at [facility]. PCP is the medical provider at [facility]. Pt. has Dementia, family makes decisions, pt. has low vision. DCP: return to [facility] via BLS. CM to follow for DC needs.
--- NOTE | 2025-05-20 11:04 | MHC.EDTECH ---
patient was incontinent of urine and stool. perform ADL's on patient wash patient, changed patient to a hospital bed replace patient purewick applied barrier cream on bottom. patient is a total assist. nurse aware.
--- NOTE | 2025-05-20 11:27 | P.PNIM_ITS ---
Subjective Subjective Date of Service: 05/20/25 Interval History: No complaints wants to go home Physical Exam 2 Exam: Exam: Alert, oriented to self and place, poor insight, lungs clear, abdomen soft nontender Vital Signs: Vital Signs: Last Vital Signs Temp 97.4 F 05/20/25 06:07 Pulse 59 05/20/25 08:26 Resp 18 05/20/25 08:26 BP 114/61 05/20/25 08:26 Pulse Ox 100 05/20/25 06:07 O2 Del Method Room Air 05/20/25 06:07 BMI result Body Mass Index 26.7 Objective Data Active Medications Acetaminophen (Acetaminophen 325 Mg Tablet) 975 mg PO Q6H PRN PRN Reason: Pain, Mild 1-3,fever,headache Last Admin: 05/20/25 10:36 Dose: 975 mg Documented By: AFSHIN Amiodarone HCl (Amiodarone Hcl 200 Mg Tablet) 200 mg PO DAILY [facility] Last Admin: 05/20/25 09:54 Dose: 200 mg Documented By: AFSHIN Ascorbic Acid (Ascorbic Acid 500 Mg Tablet) 500 mg PO DAILY [facility] Last Admin: 05/20/25 09:53 Dose: 500 mg Documented By: AFSHIN Aspirin (Aspirin Enteric Coated 81 Mg Tablet.) 81 mg PO DAILY [facility] Last Admin: 05/20/25 09:54 Dose: 81 mg Documented By: AFSHIN Atorvastatin Calcium (Atorvastatin Calcium 20 Mg Tablet) 20 mg PO BEDTIME [facility] Bisacodyl (Bisacodyl 10 Mg Supp.Rect) 10 mg NV DAILY PRN PRN Reason: Constipation Ceftriaxone Sodium (Ceftriaxone Sodium 1 Gm Vial) 1 gm IVPUSH Q24H [facility] Escitalopram Oxalate (Escitalopram Oxalate 10 Mg Tablet) 30 mg PO DAILY [facility] Last Admin: 05/20/25 09:54 Dose: 30 mg Documented By: AFSHIN Ferrous Sulfate (Ferrous Sulfate 324 Mg Tablet.) 324 mg PO DAILY [facility] Last Admin: 05/20/25 09:55 Dose: 324 mg Documented By: AFSHIN Fluticasone/Vilanterol (Fluticasone/Vilanterol 100/25 Blst.W.Dev) 1 puff INHALE DAILY [facility] Last Admin: 05/20/25 09:53 Dose: 1 puff Documented By: AFSHIN Heparin Sodium (Porcine) (Heparin Sodium,Porcine 5,000 Unit/Ml Vial) 5,000 unit SUBCUT Q12H [facility] Last Admin: 05/20/25 09:55 Dose: 5,000 unit Documented By: AFSHIN Loperamide HCl (Loperamide Hcl 2 Mg Capsule) 2 mg PO Q2H PRN PRN Reason: Diarrhea Last Admin: 05/20/25 10:06 Dose: 2 mg Documented By: AFSHIN Magnesium Hydroxide (Milk Of Magnesia 30 Ml Oral.Susp) 30 ml PO DAILY PRN PRN Reason: Constipation Omeprazole (Omeprazole 20 Mg Capsule.Dr) 20 mg PO DAILY@0630 [facility] Last Admin: 05/20/25 06:26 Dose: 20 mg Documented By: KIM Polyethylene Glycol (Polyethylene Glycol 3350 17 Gm Powd.Pack) 17 gm PO DAILY [facility] Last Admin: 05/20/25 10:08 Dose: Not Given Documented By: AFSHIN Non-Admin Reason: has diarrhea Ropinirole HCl (Ropinirole Hcl 2 Mg Tablet) 2 mg PO BID [facility] Last Admin: 05/20/25 09:53 Dose: 2 mg Documented By: AFSHIN Senna/Docusate Sodium (Sennosides/Docusate Sodium Tablet) 1 tab PO BID PRN PRN Reason: Constipation Sodium Biphosphate/Sodium Phosphate (Sodium Phosphate,[place]-Dibasic 133 Ml Enema) 118 ml [place] DAILY PRN PRN Reason: Constipation Sodium Chloride (0.9 % Sodium Chloride Flush 3 Ml Syringe) 3 ml IVFLUSH QSHIFT [facility] Last Admin: 05/20/25 09:36 Dose: Not Given Documented By: AFSHIN Non-Admin Reason: IV Running Sodium Chloride (Sodium Chloride 0.65 % Nasal 44 Ml Sprbtl) 2 spray NOSTRIL-B BID [facility] Vitamin D (Cholecalciferol (Vitamin D3) 25 Mcg Tablet) 50 mcg PO DAILY [facility] Last Admin: 05/20/25 09:53 Dose: 50 mcg Documented By: AFSHIN Labs 05/20/25 05:19 05/20/25 08:27 Labs: Laboratory Results - last 24 hr 05/19/25 05/19/25 05/19/25 16:31 16:41 17:10 MCV 96.7 MCH 32.5 MCHC 33.6 RDW 14.0 Plt Count 198 D MPV 10.1 Immature Gran % (Auto) 0.5 H Neut % (Auto) 84.5 H Lymph % (Auto) 6.3 L [place] % (Auto) 8.5 Eos % (Auto) 0.0 Baso % (Auto) 0.2 Lymph # (Auto) 0.8 L [place] # (Auto) 1.1 Eos # (Auto) 0.0 Baso # (Auto) 0.0 Abs Immat Gran (auto) 0.07 H Absolute Neuts (auto) 11.1 H Absolute Nucleated RBC 0.000 Nucleated RBC % (auto) 0.0 Hold Purple Top SEE NOTE Anion Gap 18 Estim Creat Clear Calc 31.3 Estimated GFR 38 Random Glucose 108 Lactic Acid 1.6 Calcium 9.3 Magnesium 1.9 Total Bilirubin AST ALT Alkaline Phosphatase Total Protein Albumin Urine Color Dark Yellow Urine Appearance Turbid Urine pH 5.5 Ur Specific [place] 1.015 Urine Protein 100 (2+) H Urine Glucose (UA) Negative Urine Ketones Trace Urine Blood Large (3+) H Urine Nitrite Negative Ur Leukocyte Esterase Large (3+) H Urine RBC 3-5 H Urine WBC >50 H Ur Squamous Epith Cells 11-20 Urine Bacteria 4+ Hyaline Casts >20 Influenza Type A (PCR) Influenza Type B (PCR) RSV RNA Qual (PCR) SARS-CoV-2 RNA (RT-PCR) 05/20/25 05/20/25 05/20/25 00:39 01:20 05:19 MCV 100.5 H MCH 32.5 MCHC 32.3 RDW 13.9 Plt Count 124 L D MPV 9.8 Immature Gran % (Auto) 0.5 H Neut % (Auto) 77.8 H Lymph % (Auto) 10.2 L [place] % (Auto) 10.7 Eos % (Auto) 0.4 Baso % (Auto) 0.4 Lymph # (Auto) 0.8 L [place] # (Auto) 0.8 Eos # (Auto) 0.0 Baso # (Auto) 0.0 Abs Immat Gran (auto) 0.04 H Absolute Neuts (auto) 6.1 Absolute Nucleated RBC 0.000 Nucleated RBC % (auto) 0.0 Hold Purple Top Anion Gap Estim Creat Clear Calc Estimated GFR Random Glucose Lactic Acid 0.8 Calcium Magnesium Total Bilirubin AST ALT Alkaline Phosphatase Total Protein Albumin Urine Color Urine Appearance Urine pH Ur Specific [place] Urine Protein Urine Glucose (UA) Urine Ketones Urine Blood Urine Nitrite Ur Leukocyte Esterase Urine RBC Urine WBC Ur Squamous Epith Cells Urine Bacteria Hyaline Casts Influenza Type A (PCR) NEGATIVE Influenza Type B (PCR) NEGATIVE RSV RNA Qual (PCR) NEGATIVE SARS-CoV-2 RNA (RT-PCR) NEGATIVE 05/20/25 08:27 MCV MCH MCHC RDW Plt Count MPV Immature Gran % (Auto) Neut % (Auto) Lymph % (Auto) [place] % (Auto) Eos % (Auto) Baso % (Auto) Lymph # (Auto) [place] # (Auto) Eos # (Auto) Baso # (Auto) Abs Immat Gran (auto) Absolute Neuts (auto) Absolute Nucleated RBC Nucleated RBC % (auto) Hold Purple Top Anion Gap 13 Estim Creat Clear Calc 48.4 Estimated GFR > 60 Random Glucose 114 Lactic Acid Calcium 8.5 D Magnesium 1.8 Total Bilirubin 0.4 AST 40 H ALT 21 Alkaline Phosphatase 67 Total Protein 5.7 L Albumin 3.4 L Urine Color Urine Appearance Urine pH Ur Specific [place] Urine Protein Urine Glucose (UA) Urine Ketones Urine Blood Urine Nitrite Ur Leukocyte Esterase Urine RBC Urine WBC Ur Squamous Epith Cells Urine Bacteria Hyaline Casts Influenza Type A (PCR) Influenza Type B (PCR) RSV RNA Qual (PCR) SARS-CoV-2 RNA (RT-PCR) Assessment and Plan (1) Non-ischemic myocardial injury (non-traumatic): Status: Acute Plan 89F PMH unspecified dementia, mood disorder, GERD, hyperparathyroid, hyperlipidemia, restless leg syndrome, hypertension, CKD 2, chronic systolic and diastolic CHF, coronary artery disease, paroxysmal atrial flutter presented with confusion Acute metabolic encephalopathy due to urinary tract infection Continue ceftriaxone, follow up cultures No sepsis Hypotension Likely due to dehydration, improving with IV fluids DELMY on CKD 2 Improving with IV fluids Unspecified dementia Monitored for delirium Paroxysmal atrial flutter Continue amiodarone, not on anticoagulation Mood disorder Continue Lexapro Chronic systolic and diastolic CHF Was hypokalemic on admission, currently euvolemic DVT prophylaxis with heparin subQ DNR/DNI reason for continued hospitalization: Cultures pending Quality Stroke Does the patient have a stroke diagnosis?: No VTE Prior VTE?: No VTE Risk Level:: Medical - moderate - high VTE Device Contraindication: Treatment Not Indicated VTE Drug Contraindication: N/A - Med Ordered
--- NOTE | 2025-05-20 11:52 | P.CDIM_ITS ---
PROVIDER RESPONSE TEXT: To clarify, the appropriate diagnosis supported by the clinical indicators: Hypokalemia: acute QUERY TEXT: PHYSICIAN'S DOCUMENTATION REQUEST Date of Query: 05/20/2025 11:39 AM EDT Patient Name: Shreya Calvert Admit Date: 05/20/2025 Dear Hung Taylor MD, A review of the medical record indicates additional documentation may be needed. Please review below and update the documentation accordingly. Clinical Indicators: LABS: Potassium 3.0 L Klor-Con Based on the above, could you clarify if there is a diagnosis that correlates with these findings? Hypokalemia resolved, possible, suspected etc. Labs indicate a diagnosis of (please specify) Other (explain) Clinically unable to determine (explain) Thank you, Sonia Choudhary, CCS, CDIS Use of terms such as suspected, likely, concern for, or probable (associated with a specific diagnosis that is being evaluated, monitored, or treated as if it exists) are acceptable and can be coded in the inpatient setting, when documented at the time of discharge. Please use your independent medical judgment in providing your response. THIS QUERY IS PART OF THE PERMANENT MEDICAL RECORD
[2025-05-20] MEDS: 0.9 % Sodium Chloride Flush 3 ML SYRINGE IVFLUSH ×2 (17:19→20:40)
[2025-05-20] MEDS: Sodium Chloride 0.65 % Nasal 44 ML SPRBTL 2 SPRAY NOSTRIL-B (20:38)
[2025-05-21 03:44] VITALS: BP 148/61; PULSE 60; RESP 20; TEMP 36.7; O2SAT 96
[2025-05-21 06:37] LABS: Hematocrit 34.1 % (37.0-47.0); Hemoglobin 11.4 g/dl (12.0-16.0); Mean Corpuscular HGB Conc 33.4 g/dl (31.0-35.0); Mean Corpuscular Hemoglobin 32.0 pg (27.0-33.0); Mean Corpuscular Volume 95.8 fL (80.0-98.0); NRBC Abs Auto 0.000 X10*3/uL (0.0-0.012); NRBC Pct Auto 0.0 /100WBC (0.0-0.2); Platelet Count 154 X10*3/uL (160-400); Red Blood Count 3.56 X10*6/uL (4.20-5.50); White Blood Count 6.8 X10*3/uL (4.8-10.8)
[2025-05-21 06:55] LABS: Alanine Aminotransferase 23 U/L (0-31); Albumin Level 3.1 g/dL (3.5-5.0); Alkaline Phosphatase 72 U/L (39-117); Anion Gap 13 (12-20); Aspartate Amino Transferase 34 U/L (5-31); Blood Urea Nitrogen 17 mg/dL (9-16); Calcium 8.8 mg/dL (8.4-10.2); Carbon Dioxide 22 mmol/L (22-29); Chloride 107 mmol/L (96-108); Creatinine Clr Calc Pharmacy 62.1; Estimated Glomerular Filt Rate > 60; Magnesium 1.7 mg/dL (1.6-2.6); Potassium 3.5 mmol/L (3.3-5.1); Sodium 138 mmol/L (135-145); Total Protein 5.5 g/dL (6.5-8.0)
[2025-05-21 07:16] VITALS: BP 137/60; PULSE 57; RESP 18; TEMP 36.1; O2SAT 95
[2025-05-21] MEDS: Fluticasone/Vilanterol 100/25 BLST.W.DEV 1 PUFF INHALE (07:43)
[2025-05-21 07:44] VITALS: PULSE 60; RESP 16; O2SAT 95
[2025-05-21] MEDS: Aspirin Enteric Coated 81 MG TABLET.DR PO (08:21)
[2025-05-21] MEDS: Ferrous Sulfate 324 MG TABLET.DR PO (08:21)
[2025-05-21] MEDS: 0.9 % Sodium Chloride Flush 3 ML SYRINGE IVFLUSH ×3 (08:28→20:05)
--- NOTE | 2025-05-21 09:18 | P.PNIM_ITS ---
Subjective Subjective Date of Service: 05/21/25 Interval History: No complaints wants to go home Physical Exam 2 Exam: Exam: Alert, oriented to self and place, poor insight, lungs clear, abdomen soft nontender Vital Signs: Vital Signs: Last Vital Signs Temp 97 F 05/21/25 07:16 Pulse 60 05/21/25 07:44 Resp 16 05/21/25 07:44 BP 137/60 05/21/25 07:16 Pulse Ox 95 05/21/25 07:16 O2 Del Method Room Air 05/21/25 07:16 BMI result Body Mass Index 26.7 Objective Data Active Medications Acetaminophen (Acetaminophen 325 Mg Tablet) 975 mg PO Q6H PRN PRN Reason: Pain, Mild 1-3,fever,headache Last Admin: 05/20/25 17:19 Dose: 975 mg Documented By: DYLAN Amiodarone HCl (Amiodarone Hcl 200 Mg Tablet) 200 mg PO DAILY [facility] Last Admin: 05/21/25 08:21 Dose: Not Given Documented By: RICHARD Non-Admin Reason: Physician Held Med Ascorbic Acid (Ascorbic Acid 500 Mg Tablet) 500 mg PO DAILY [facility] Last Admin: 05/21/25 08:21 Dose: 500 mg Documented By: RICHARD Aspirin (Aspirin Enteric Coated 81 Mg Tablet.) 81 mg PO DAILY [facility] Last Admin: 05/21/25 08:21 Dose: 81 mg Documented By: RICHARD Atorvastatin Calcium (Atorvastatin Calcium 20 Mg Tablet) 20 mg PO BEDTIME [facility] Last Admin: 05/20/25 20:39 Dose: 20 mg Documented By: MADHAVI Bisacodyl (Bisacodyl 10 Mg Supp.Rect) 10 mg [place] DAILY PRN PRN Reason: Constipation Ceftriaxone Sodium (Ceftriaxone Sodium 1 Gm Vial) 1 gm IVPUSH Q24H [facility] Last Admin: 05/20/25 20:39 Dose: 1 gm Documented By: MADHAVI Escitalopram Oxalate (Escitalopram Oxalate 10 Mg Tablet) 30 mg PO DAILY [facility] Last Admin: 05/21/25 08:21 Dose: 30 mg Documented By: RICHARD Ferrous Sulfate (Ferrous Sulfate 324 Mg Tablet.) 324 mg PO DAILY [facility] Last Admin: 05/21/25 08:21 Dose: 324 mg Documented By: RICHARD Fluticasone/Vilanterol (Fluticasone/Vilanterol 100/25 Blst.W.Dev) 1 puff INHALE DAILY [facility] Last Admin: 05/21/25 07:43 Dose: 1 puff Documented By: KIMBER Heparin Sodium (Porcine) (Heparin Sodium,Porcine 5,000 Unit/Ml Vial) 5,000 unit SUBCUT Q12H [facility] Last Admin: 05/21/25 08:25 Dose: 5,000 unit Documented By: RICHARD Loperamide HCl (Loperamide Hcl 2 Mg Capsule) 2 mg PO Q2H PRN PRN Reason: Diarrhea Last Admin: 05/20/25 10:06 Dose: 2 mg Documented By: AFSHIN Magnesium Hydroxide (Milk Of Magnesia 30 Ml Oral.Susp) 30 ml PO DAILY PRN PRN Reason: Constipation Omeprazole (Omeprazole 20 Mg Capsule.Dr) 20 mg PO DAILY@0630 [facility] Last Admin: 05/21/25 05:42 Dose: 20 mg Documented By: GHASSAN Polyethylene Glycol (Polyethylene Glycol 3350 17 Gm Powd.Pack) 17 gm PO DAILY [facility] Last Admin: 05/21/25 08:25 Dose: 17 gm Documented By: RICHARD Ropinirole HCl (Ropinirole Hcl 2 Mg Tablet) 2 mg PO BID [facility] Last Admin: 05/21/25 08:21 Dose: 2 mg Documented By: RICHARD Senna/Docusate Sodium (Sennosides/Docusate Sodium Tablet) 1 tab PO BID PRN PRN Reason: Constipation Sodium Biphosphate/Sodium Phosphate (Sodium Phosphate,[place]-Dibasic 133 Ml Enema) 118 ml [place] DAILY PRN PRN Reason: Constipation Sodium Chloride (0.9 % Sodium Chloride Flush 3 Ml Syringe) 3 ml IVFLUSH QSHIFT [facility] Last Admin: 05/21/25 08:28 Dose: 3 ml Documented By: RICHARD Sodium Chloride (Sodium Chloride 0.65 % Nasal 44 Ml Sprbtl) 2 spray NOSTRIL-B BID [facility] Last Admin: 05/20/25 20:38 Dose: 2 spray Documented By: MADHAVI Tramadol HCl (Tramadol Hcl 50 Mg Tablet) 50 mg PO BID PRN PRN Reason: Pain, Moderate(Pain Scale 4-6) Last Admin: 05/21/25 00:07 Dose: 50 mg Documented By: HO.LYSZ Vitamin D (Cholecalciferol (Vitamin D3) 25 Mcg Tablet) 50 mcg PO DAILY [facility] Last Admin: 05/21/25 08:21 Dose: 50 mcg Documented By: RICHARD Labs 05/21/25 06:28 05/21/25 06:05 Labs: Laboratory Results - last 24 hr 05/21/25 05/21/25 06:05 06:28 MCV 95.8 MCH 32.0 MCHC 33.4 RDW 13.6 Plt Count 154 L MPV 10.6 Absolute Nucleated RBC 0.000 Nucleated RBC % (auto) 0.0 Anion Gap 13 Estim Creat Clear Calc 62.1 Estimated GFR > 60 Random Glucose 107 Calcium 8.8 Magnesium 1.7 Total Bilirubin 0.4 Direct Bilirubin 0.2 AST 34 H ALT 23 Alkaline Phosphatase 72 Total Protein 5.5 L Albumin 3.1 L Microbiology Microbiology Results: Microbiology 05/19/25 16:41 Blood Culture - Preliminary Blood - Venous No growth after 24 hours. 05/19/25 16:31 Blood Culture - Preliminary Blood - Venous No growth after 24 hours. 05/19/25 Unknown Urine Culture - Preliminary Urine Catheterized - Straight Catheter Culture in progress. Assessment and Plan (1) Non-ischemic myocardial injury (non-traumatic): Status: Acute Plan 89F PMH unspecified dementia, mood disorder, GERD, hyperparathyroid, hyperlipidemia, restless leg syndrome, hypertension, CKD 2, chronic systolic and diastolic CHF, coronary artery disease, paroxysmal atrial flutter presented with confusion Acute metabolic encephalopathy due to urinary tract infection Continue ceftriaxone, follow up cultures No sepsis Hypotension Likely due to dehydration, improving with IV fluids DELMY on CKD 2 Improving with IV fluids Unspecified dementia Monitored for delirium Paroxysmal atrial flutter Continue amiodarone, not on anticoagulation Mood disorder Continue Lexapro Chronic systolic and diastolic CHF Was hypokalemic on admission, currently euvolemic DVT prophylaxis with heparin subQ DNR/DNI reason for continued hospitalization: Cultures pending Quality Stroke Does the patient have a stroke diagnosis?: No VTE Prior VTE?: No VTE Risk Level:: Medical - moderate - high VTE Device Contraindication: Treatment Not Indicated VTE Drug Contraindication: N/A - Med Ordered
[2025-05-21 15:04] VITALS: BP 165/70; PULSE 97; RESP 16; TEMP 36.5; O2SAT 95
--- NOTE | 2025-05-21 15:14 | MHC.CM.PN ---
EMR REVIEWED AND PER MD ROUNDS, PT IS NOT MEDICALLY CLEARED FOR DC (AWAITING CULTURES) CM WILL CONTINUE TO FOLLOW FOR RETURN TO LTC AT [facility] WHEN DC.
[2025-05-21 19:30] VITALS: BP 170/75; PULSE 62; RESP 17; TEMP 36.3; O2SAT 93
[2025-05-21 19:48] VITALS: BP 144/86
[2025-05-21] MEDS: traZODone HCL 25 MG HALFTAB PO (23:20)
[2025-05-22 03:16] VITALS: BP 177/74; PULSE 57; RESP 16; TEMP 36.1; O2SAT 95
[2025-05-22 04:57] VITALS: BP 176/70
[2025-05-22 07:58] VITALS: BP 162/73; PULSE 55; RESP 16; TEMP 36.3; O2SAT 95
[2025-05-22 08:19] VITALS: PULSE 57; RESP 16; O2SAT 97
[2025-05-22] MEDS: Fluticasone/Vilanterol 100/25 BLST.W.DEV 1 PUFF INHALE (08:19)
--- NOTE | 2025-05-22 08:41 | HO.PM.IMPN ---
Subjective Subjective Date of Service: 05/22/25 Interval History: No complaints wants to go home Physical Exam Exam: Exam: Alert, oriented to self and place, poor insight, lungs clear, abdomen soft nontender Vital Signs: Vital Signs: Last Vital Signs Temp 97.3 F 05/22/25 07:58 Pulse 57 05/22/25 08:19 Resp 16 05/22/25 08:19 BP 162/73 H 05/22/25 07:58 Pulse Ox 95 05/22/25 07:58 O2 Del Method Room Air 05/22/25 07:58 BMI result Body Mass Index 26.7 Objective Data Active Medications Acetaminophen (Acetaminophen 325 Mg Tablet) 975 mg PO Q6H PRN PRN Reason: Pain, Mild 1-3,fever,headache Last Admin: 05/20/25 17:19 Dose: 975 mg Documented By: DYLAN Amiodarone HCl (Amiodarone Hcl 200 Mg Tablet) 200 mg PO DAILY [facility] Last Admin: 05/21/25 08:21 Dose: Not Given Documented By: RICHARD Non-Admin Reason: Physician Held Med Ascorbic Acid (Ascorbic Acid 500 Mg Tablet) 500 mg PO DAILY [facility] Last Admin: 05/21/25 08:21 Dose: 500 mg Documented By: RICHARD Aspirin (Aspirin Enteric Coated 81 Mg Tablet.) 81 mg PO DAILY [facility] Last Admin: 05/21/25 08:21 Dose: 81 mg Documented By: RICHARD Atorvastatin Calcium (Atorvastatin Calcium 20 Mg Tablet) 20 mg PO BEDTIME [facility] Last Admin: 05/21/25 19:56 Dose: 20 mg Documented By: OLGA Bisacodyl (Bisacodyl 10 Mg Supp.Rect) 10 mg [place] DAILY PRN PRN Reason: Constipation Ceftriaxone Sodium (Ceftriaxone Sodium 1 Gm Vial) 1 gm IVPUSH Q24H [facility] Last Admin: 05/21/25 19:57 Dose: 1 gm Documented By: OLGA Escitalopram Oxalate (Escitalopram Oxalate 10 Mg Tablet) 30 mg PO DAILY [facility] Last Admin: 05/21/25 08:21 Dose: 30 mg Documented By: RICHARD Ferrous Sulfate (Ferrous Sulfate 324 Mg Tablet.) 324 mg PO DAILY [facility] Last Admin: 05/21/25 08:21 Dose: 324 mg Documented By: RICHARD Fluticasone/Vilanterol (Fluticasone/Vilanterol 100/25 Blst.W.Dev) 1 puff INHALE DAILY [facility] Last Admin: 05/22/25 08:19 Dose: 1 puff Documented By: KIMBER Heparin Sodium (Porcine) (Heparin Sodium,Porcine 5,000 Unit/Ml Vial) 5,000 unit SUBCUT Q12H [facility] Last Admin: 05/21/25 20:03 Dose: 5,000 unit Documented By: OLGA Loperamide HCl (Loperamide Hcl 2 Mg Capsule) 2 mg PO Q2H PRN PRN Reason: Diarrhea Last Admin: 05/20/25 10:06 Dose: 2 mg Documented By: AFSHIN Magnesium Hydroxide (Milk Of Magnesia 30 Ml Oral.Susp) 30 ml PO DAILY PRN PRN Reason: Constipation Omeprazole (Omeprazole 20 Mg Capsule.Dr) 20 mg PO DAILY@0630 [facility] Last Admin: 05/22/25 05:45 Dose: Not Given Documented By: OLGA Non-Admin Reason: Patient Refused Polyethylene Glycol (Polyethylene Glycol 3350 17 Gm Powd.Pack) 17 gm PO DAILY [facility] Last Admin: 05/21/25 08:25 Dose: 17 gm Documented By: RICHARD Ropinirole HCl (Ropinirole Hcl 2 Mg Tablet) 2 mg PO BID [facility] Last Admin: 05/21/25 19:56 Dose: 2 mg Documented By: OLGA Senna/Docusate Sodium (Sennosides/Docusate Sodium Tablet) 1 tab PO BID PRN PRN Reason: Constipation Sodium Biphosphate/Sodium Phosphate (Sodium Phosphate,[place]-Dibasic 133 Ml Enema) 118 ml [place] DAILY PRN PRN Reason: Constipation Sodium Chloride (0.9 % Sodium Chloride Flush 3 Ml Syringe) 3 ml IVFLUSH QSHIFT [facility] Last Admin: 05/21/25 20:05 Dose: 3 ml Documented By: OLGA Sodium Chloride (Sodium Chloride 0.65 % Nasal 44 Ml Sprbtl) 2 spray NOSTRIL-B BID [facility] Last Admin: 05/21/25 20:03 Dose: Not Given Documented By: OLGA Non-Admin Reason: Patient Refused Tramadol HCl (Tramadol Hcl 50 Mg Tablet) 50 mg PO BID PRN PRN Reason: Pain, Moderate(Pain Scale 4-6) Last Admin: 05/21/25 00:07 Dose: 50 mg Documented By: MADHAVI Vitamin D (Cholecalciferol (Vitamin D3) 25 Mcg Tablet) 50 mcg PO DAILY [facility] Last Admin: 05/21/25 08:21 Dose: 50 mcg Documented By: NAOMIIC Labs 05/21/25 06:28 05/21/25 06:05 Microbiology Microbiology Results: Microbiology 05/19/25 Unknown Urine Culture - Preliminary Urine Catheterized - Straight Catheter Escherichia coli Klebsiella pneumoniae 05/19/25 16:41 Blood Culture - Preliminary Blood - Venous No growth after 48 hours. 05/19/25 16:31 Blood Culture - Preliminary Blood - Venous No growth after 48 hours. Assessment and Plan (1) Non-ischemic myocardial injury (non-traumatic): Status: Acute Plan 89F PMH unspecified dementia, mood disorder, GERD, hyperparathyroid, hyperlipidemia, restless leg syndrome, hypertension, CKD 2, chronic systolic and diastolic CHF, coronary artery disease, paroxysmal atrial flutter presented with confusion sepsis, not severe, Acute metabolic encephalopathy due to urinary tract infection urine culture prelim looks like esbl ecoli and sensitive klebsiella will change to merem, ID eval Hypotension Likely due to dehydration (not due to sepsis), improved with IV fluids DELMY on CKD 2 Improving with IV fluids Unspecified dementia Monitored for delirium Paroxysmal atrial flutter Continue amiodarone, not on anticoagulation Mood disorder Continue Lexapro Chronic systolic and diastolic CHF Was hypovollemic on admission, currently euvolemic DVT prophylaxis with heparin subQ DNR/DNI reason for continued hospitalization: Cultures pending Quality Stroke Does the patient have a stroke diagnosis?: No VTE Prior VTE?: No VTE Risk Level:: Medical - moderate - high VTE Device Contraindication: Treatment Not Indicated VTE Drug Contraindication: N/A - Med Ordered
[2025-05-22] MEDS: Aspirin Enteric Coated 81 MG TABLET.DR PO (08:46)
[2025-05-22] MEDS: Ferrous Sulfate 324 MG TABLET.DR PO (08:46)
[2025-05-22] MEDS: 0.9 % Sodium Chloride Flush 3 ML SYRINGE IVFLUSH ×3 (08:47→20:03)
[2025-05-22 15:33] VITALS: BP 161/70; PULSE 54; RESP 14; TEMP 36.3; O2SAT 96
[2025-05-22 20:00] VITALS: BP 175/77; PULSE 51; RESP 17; TEMP 36.3; O2SAT 97
[2025-05-23 03:23] VITALS: BP 159/72; PULSE 55; RESP 17; TEMP 36.1; O2SAT 97
[2025-05-23 07:51] VITALS: BP 153/67; PULSE 50; RESP 16; TEMP 36.1; O2SAT 93
[2025-05-23] MEDS: Fluticasone/Vilanterol 100/25 BLST.W.DEV 1 PUFF INHALE (08:02)
[2025-05-23 08:04] VITALS: PULSE 54; RESP 16; O2SAT 98
[2025-05-23] MEDS: Sodium Chloride 0.65 % Nasal 44 ML SPRBTL 2 SPRAY NOSTRIL-B (08:09)
[2025-05-23] MEDS: 0.9 % Sodium Chloride Flush 3 ML SYRINGE IVFLUSH ×2 (08:10→16:46)
[2025-05-23] MEDS: Ferrous Sulfate 324 MG TABLET.DR PO (08:10)
[2025-05-23] MEDS: Aspirin Enteric Coated 81 MG TABLET.DR PO (08:10)
--- NOTE | 2025-05-23 10:41 | P.PNIM_ITS ---
Subjective Subjective Date of Service: 05/23/25 Interval History: No complaints wants to go home Physical Exam 2 Exam: Exam: Alert, oriented to self and place, poor insight, lungs clear, abdomen soft nontender Vital Signs: Vital Signs: Last Vital Signs Temp 96.9 F 05/23/25 07:51 Pulse 54 05/23/25 08:04 Resp 16 05/23/25 08:04 BP 153/67 H 05/23/25 07:51 Pulse Ox 93 05/23/25 07:51 O2 Del Method Room Air 05/23/25 07:51 BMI result Body Mass Index 26.7 Objective Data Active Medications Acetaminophen (Acetaminophen 325 Mg Tablet) 975 mg PO Q6H PRN PRN Reason: Pain, Mild 1-3,fever,headache Last Admin: 05/23/25 05:40 Dose: 975 mg Documented By: OLGA Amiodarone HCl (Amiodarone Hcl 200 Mg Tablet) 200 mg PO DAILY [facility] Last Admin: 05/23/25 08:10 Dose: 200 mg Documented By: JENNY Ascorbic Acid (Ascorbic Acid 500 Mg Tablet) 500 mg PO DAILY [facility] Last Admin: 05/23/25 08:10 Dose: 500 mg Documented By: JENNY Aspirin (Aspirin Enteric Coated 81 Mg Tablet.) 81 mg PO DAILY [facility] Last Admin: 05/23/25 08:10 Dose: 81 mg Documented By: JENNY Atorvastatin Calcium (Atorvastatin Calcium 20 Mg Tablet) 20 mg PO BEDTIME [facility] Last Admin: 05/22/25 20:00 Dose: 20 mg Documented By: OLGA Bisacodyl (Bisacodyl 10 Mg Supp.Rect) 10 mg [place] DAILY PRN PRN Reason: Constipation Escitalopram Oxalate (Escitalopram Oxalate 10 Mg Tablet) 30 mg PO DAILY [facility] Last Admin: 05/23/25 08:10 Dose: 30 mg Documented By: JENNY Ferrous Sulfate (Ferrous Sulfate 324 Mg Tablet.) 324 mg PO DAILY [facility] Last Admin: 05/23/25 08:10 Dose: 324 mg Documented By: JENNY Fluticasone/Vilanterol (Fluticasone/Vilanterol 100/25 Blst.W.Dev) 1 puff INHALE DAILY [facility] Last Admin: 05/23/25 08:02 Dose: 1 puff Documented By: KIMBER Heparin Sodium (Porcine) (Heparin Sodium,Porcine 5,000 Unit/Ml Vial) 5,000 unit SUBCUT Q12H [facility] Last Admin: 05/23/25 08:10 Dose: 5,000 unit Documented By: JENNY Loperamide HCl (Loperamide Hcl 2 Mg Capsule) 2 mg PO Q2H PRN PRN Reason: Diarrhea Last Admin: 05/20/25 10:06 Dose: 2 mg Documented By: AFSHIN Magnesium Hydroxide (Milk Of Magnesia 30 Ml Oral.Susp) 30 ml PO DAILY PRN PRN Reason: Constipation Meropenem (Meropenem 1 Gm Vial) 1 gm IVPUSH Q8H [facility] Last Admin: 05/23/25 08:10 Dose: 1 gm Documented By: EJNNY Omeprazole (Omeprazole 20 Mg Capsule.Dr) 20 mg PO DAILY@0630 [facility] Last Admin: 05/23/25 05:41 Dose: 20 mg Documented By: OLGA Polyethylene Glycol (Polyethylene Glycol 3350 17 Gm Powd.Pack) 17 gm PO DAILY [facility] Last Admin: 05/23/25 08:09 Dose: 17 gm Documented By: JENNY Ropinirole HCl (Ropinirole Hcl 2 Mg Tablet) 2 mg PO BID [facility] Last Admin: 05/23/25 08:10 Dose: 2 mg Documented By: JENNY Senna/Docusate Sodium (Sennosides/Docusate Sodium Tablet) 1 tab PO BID PRN PRN Reason: Constipation Sodium Biphosphate/Sodium Phosphate (Sodium Phosphate,[place]-Dibasic 133 Ml Enema) 118 ml [place] DAILY PRN PRN Reason: Constipation Sodium Chloride (0.9 % Sodium Chloride Flush 3 Ml Syringe) 3 ml IVFLUSH QSHIFT [facility] Last Admin: 05/23/25 08:10 Dose: 3 ml Documented By: JENNY Sodium Chloride (Sodium Chloride 0.65 % Nasal 44 Ml Sprbtl) 2 spray NOSTRIL-B BID [facility] Last Admin: 05/23/25 08:09 Dose: 2 spray Documented By: JENNY Tramadol HCl (Tramadol Hcl 50 Mg Tablet) 50 mg PO BID PRN PRN Reason: Pain, Moderate(Pain Scale 4-6) Last Admin: 05/22/25 20:00 Dose: 50 mg Documented By: OLGA Vitamin D (Cholecalciferol (Vitamin D3) 25 Mcg Tablet) 50 mcg PO DAILY [facility] Last Admin: 05/23/25 08:09 Dose: 50 mcg Documented By: JENNY Labs 05/21/25 06:28 05/21/25 06:05 Microbiology Microbiology Results: Microbiology 05/19/25 Unknown Urine Culture - Final Urine Catheterized - Straight Catheter Escherichia coli Klebsiella pneumoniae Assessment and Plan (1) Non-ischemic myocardial injury (non-traumatic): Status: Acute Plan 89F PMH unspecified dementia, mood disorder, GERD, hyperparathyroid, hyperlipidemia, restless leg syndrome, hypertension, CKD 2, chronic systolic and diastolic CHF, coronary artery disease, paroxysmal atrial flutter presented with confusion sepsis, not severe, Acute metabolic encephalopathy due to urinary tract infection urine culture prelim looks like esbl ecoli and sensitive klebsiella changed to merem, ID eval Hypotension Likely due to dehydration (not due to sepsis), improved with IV fluids DELMY on CKD 2 Improving with IV fluids Unspecified dementia Monitored for delirium Paroxysmal atrial flutter Continue amiodarone, not on anticoagulation Mood disorder Continue Lexapro Chronic systolic and diastolic CHF Was hypovollemic on admission, currently euvolemic DVT prophylaxis with heparin subQ DNR/DNI reason for continued hospitalization: will need picc Quality Stroke Does the patient have a stroke diagnosis?: No VTE Prior VTE?: No VTE Risk Level:: Medical - moderate - high VTE Device Contraindication: Treatment Not Indicated VTE Drug Contraindication: N/A - Med Ordered
[2025-05-23 15:44] VITALS: BP 113/57; PULSE 50; RESP 12; TEMP 36.1; O2SAT 97
[2025-05-23 20:00] VITALS: BP 151/67; PULSE 57; RESP 14; TEMP 36.2; O2SAT 96
[2025-05-24 03:35] VITALS: BP 151/67; PULSE 51; RESP 16; TEMP 36.3; O2SAT 95
[2025-05-24 07:59] VITALS: PULSE 54; RESP 16; O2SAT 96
[2025-05-24] MEDS: Fluticasone/Vilanterol 100/25 BLST.W.DEV 1 PUFF INHALE (07:59)
[2025-05-24 08:00] VITALS: BP 167/72; PULSE 53; RESP 17; TEMP 36.1; O2SAT 94
[2025-05-24] MEDS: Ferrous Sulfate 324 MG TABLET.DR PO (08:43)
[2025-05-24] MEDS: Aspirin Enteric Coated 81 MG TABLET.DR PO (08:43)
[2025-05-24] MEDS: 0.9 % Sodium Chloride Flush 3 ML SYRINGE IVFLUSH ×2 (08:43→17:50)
--- NOTE | 2025-05-24 10:56 | HO.PM.IMPN ---
Subjective Subjective Date of Service: 05/24/25 Interval History: No complaints wants to go home Physical Exam Exam: Exam: Alert, oriented to self and place, poor insight, lungs clear, abdomen soft nontender Vital Signs: Vital Signs: Last Vital Signs Temp 97.0 F 05/24/25 08:00 Pulse 53 05/24/25 08:00 Resp 17 05/24/25 08:00 BP 167/72 H 05/24/25 08:00 Pulse Ox 94 05/24/25 08:00 O2 Del Method Room Air 05/24/25 08:00 O2 Flow Rate 96 05/24/25 03:35 BMI result Body Mass Index 26.7 Objective Data Active Medications Acetaminophen (Acetaminophen 325 Mg Tablet) 975 mg PO Q6H PRN PRN Reason: Pain, Mild 1-3,fever,headache Last Admin: 05/23/25 05:40 Dose: 975 mg Documented By: OLGA Amiodarone HCl (Amiodarone Hcl 200 Mg Tablet) 200 mg PO DAILY [facility] Last Admin: 05/24/25 08:43 Dose: 200 mg Documented By: JAE Ascorbic Acid (Ascorbic Acid 500 Mg Tablet) 500 mg PO DAILY [facility] Last Admin: 05/24/25 08:43 Dose: 500 mg Documented By: JAE Aspirin (Aspirin Enteric Coated 81 Mg Tablet.) 81 mg PO DAILY [facility] Last Admin: 05/24/25 08:43 Dose: 81 mg Documented By: JAE Atorvastatin Calcium (Atorvastatin Calcium 20 Mg Tablet) 20 mg PO BEDTIME [facility] Last Admin: 05/23/25 22:15 Dose: 20 mg Documented By: KIESHA Bisacodyl (Bisacodyl 10 Mg Supp.Rect) 10 mg [place] DAILY PRN PRN Reason: Constipation Escitalopram Oxalate (Escitalopram Oxalate 10 Mg Tablet) 30 mg PO DAILY [facility] Last Admin: 05/24/25 08:43 Dose: 30 mg Documented By: JAE Ferrous Sulfate (Ferrous Sulfate 324 Mg Tablet.) 324 mg PO DAILY [facility] Last Admin: 05/24/25 08:43 Dose: 324 mg Documented By: JAE Fluticasone/Vilanterol (Fluticasone/Vilanterol 100/25 Blst.W.Dev) 1 puff INHALE DAILY [facility] Last Admin: 05/24/25 07:59 Dose: 1 puff Documented By: KIMBER Heparin Sodium (Porcine) (Heparin Sodium,Porcine 5,000 Unit/Ml Vial) 5,000 unit SUBCUT Q12H [facility] Last Admin: 05/24/25 08:42 Dose: 5,000 unit Documented By: JAE Loperamide HCl (Loperamide Hcl 2 Mg Capsule) 2 mg PO Q2H PRN PRN Reason: Diarrhea Last Admin: 05/20/25 10:06 Dose: 2 mg Documented By: AFSHIN Magnesium Hydroxide (Milk Of Magnesia 30 Ml Oral.Susp) 30 ml PO DAILY PRN PRN Reason: Constipation Meropenem (Meropenem 1 Gm Vial) 1 gm IVPUSH Q8H [facility] Last Admin: 05/24/25 08:41 Dose: 1 gm Documented By: JAE Omeprazole (Omeprazole 20 Mg Capsule.Dr) 20 mg PO DAILY@0630 [facility] Last Admin: 05/24/25 06:00 Dose: Not Given Documented By: KIESHA Non-Admin Reason: Patient Refused Polyethylene Glycol (Polyethylene Glycol 3350 17 Gm Powd.Pack) 17 gm PO DAILY [facility] Last Admin: 05/24/25 08:41 Dose: 17 gm Documented By: JAE Ropinirole HCl (Ropinirole Hcl 2 Mg Tablet) 2 mg PO BID [facility] Last Admin: 05/24/25 08:43 Dose: 2 mg Documented By: JAE Senna/Docusate Sodium (Sennosides/Docusate Sodium Tablet) 1 tab PO BID PRN PRN Reason: Constipation Sodium Biphosphate/Sodium Phosphate (Sodium Phosphate,[place]-Dibasic 133 Ml Enema) 118 ml [place] DAILY PRN PRN Reason: Constipation Sodium Chloride (0.9 % Sodium Chloride Flush 3 Ml Syringe) 3 ml IVFLUSH QSHIFT [facility] Last Admin: 05/24/25 08:43 Dose: 3 ml Documented By: JAE Sodium Chloride (Sodium Chloride 0.65 % Nasal 44 Ml Sprbtl) 2 spray NOSTRIL-B BID [facility] Last Admin: 05/24/25 08:43 Dose: Not Given Documented By: JAE Non-Admin Reason: Patient Refused Tramadol HCl (Tramadol Hcl 50 Mg Tablet) 50 mg PO BID PRN PRN Reason: Pain, Moderate(Pain Scale 4-6) Last Admin: 05/22/25 20:00 Dose: 50 mg Documented By: OLGA Vitamin D (Cholecalciferol (Vitamin D3) 25 Mcg Tablet) 50 mcg PO DAILY [facility] Last Admin: 05/24/25 08:42 Dose: 50 mcg Documented By: JAE Labs 05/21/25 06:28 05/21/25 06:05 Microbiology Microbiology Results: Microbiology 05/19/25 Unknown Urine Culture - Final Urine Catheterized - Straight Catheter Escherichia coli Klebsiella pneumoniae Assessment and Plan (1) Non-ischemic myocardial injury (non-traumatic): Status: Acute Plan 89F PMH unspecified dementia, mood disorder, GERD, hyperparathyroid, hyperlipidemia, restless leg syndrome, hypertension, CKD 2, chronic systolic and diastolic CHF, coronary artery disease, paroxysmal atrial flutter presented with confusion sepsis, not severe, Acute metabolic encephalopathy due to urinary tract infection urine culture prelim looks like esbl ecoli and sensitive klebsiella changed to merem, ID eval midline Hypotension Likely due to dehydration (not due to sepsis), improved with IV fluids DELMY on CKD 2 Improving with IV fluids Unspecified dementia Monitored for delirium Paroxysmal atrial flutter Continue amiodarone, not on anticoagulation Mood disorder Continue Lexapro Chronic systolic and diastolic CHF Was hypovollemic on admission, currently euvolemic DVT prophylaxis with heparin subQ DNR/DNI reason for continued hospitalization: will need midline Quality Stroke Does the patient have a stroke diagnosis?: No VTE Prior VTE?: No VTE Risk Level:: Medical - moderate - high VTE Device Contraindication: Treatment Not Indicated VTE Drug Contraindication: N/A - Med Ordered
--- NOTE | 2025-05-24 10:59 | PM.DS ---
DS: Providers Provider Date of Service: 05/24/25 Date of admission: 05/19/25 21:30 Date of discharge: 05/24/25 Primary care physician: Jorge Paige MD Consults: 05/22/25 08:37 Consult to Infectious Diseases Routine Consulting Provider[place] [facility] Reason for consultation: esbl uti, ?need for invanz or okay without bc responded DS: Diagnosis Discharge Diagnosis (1) Non-ischemic myocardial injury (non-traumatic): Status: Acute DS: Summary Hospital Course Hospital Course: from initial hpi: 89 years old woman with a past medical history significant for dementia with mood disorder, depression, anxiety, and GERD, anemia, hyperparathyroidism, hyperlipidemia, restless leg syndrome essential hypertension, CKD stage 2, combined systolic + diastolic CHF, CAD and atrial flutter was brought to the ED via ambulance from [facility] for possible UTI. She was found to have foul-smelling urine, increased agitation and confusion. Seems like the patient is only oriented to person at baseline. On evaluation, patient will be drawn answer any of my questions, however, she was following simple commands. In the ED, she was found to have stable vital signs. Her temperature was found to be elevated (max 101.6). Blood workup was remarkable for leukocytosis of 13.1. There is no lactic acidosis. Hemoglobin is 13.6 and platelets 198. There are no significant electrolyte imbalances. CO2 is 21, BUN 30 and creatinine 1.33. LFTs are unremarkable. Urinalysis consistent with urinary tract infection. ED tx: NS 2 L bolus, ceftriaxone 2 g IV, acetaminophen 1 g IV hospital course: Patient was admitted for sepsis and acute metabolic encephalopathy due to urinary tract infection. Initially treated with ceftriaxone but then urine culture grew ESBL E coli and non ESBL Klebsiella. Was changed to meropenem. Received midline and will be discharged to complete 2 week total with ertapenem to be completed 06/04/2025. Initially presented with hypotension this was not due to severe sepsis but rather dehydration and this improved with IV fluids. For acute kidney injury on CKD 2 creatinine stabilized. For unspecified dementia returned to baseline. Paroxysmal AFlutter continued on amiodarone. Patient is not on anticoagulation. For mood disorder continue Lexapro. For chronic systolic and diastolic CHF was initially hypovolemic so Lasix was held and can be restarted for maintenance on discharge. Patient now back to baseline will be discharged to custodial facility/LTC. Time Attestation Discharge Coordination Time (in mins): 33 Quality: Safe Use of Opioids Does Pt have an Active Cancer Diagnosis on the Problem List?: No Quality: Stroke Does the patient have a stroke diagnosis?: No Physical Exam Exam: Exam: Alert, oriented to self and place, poor insight, lungs clear, abdomen soft nontender Vital Signs: Vital Signs: Last Vital Signs Temp 97.0 F 05/24/25 08:00 Pulse 53 05/24/25 08:00 Resp 17 05/24/25 08:00 BP 167/72 H 05/24/25 08:00 Pulse Ox 94 05/24/25 08:00 O2 Del Method Room Air 05/24/25 08:00 O2 Flow Rate 96 05/24/25 03:35 BMI result Body Mass Index 26.7 DS: Data Data Completed and Pending Completed studies during hospitalization [Text1]: Procedures Insertion of Infusion Device into Superior Vena Cava, Percutaneous Approach (04/05/24) Introduction of Vasopressor into Peripheral Vein, Percutaneous Approach (12/10/24) Ultrasonography of Superior Vena Cava, Guidance (04/05/24) Labs on day of discharge: Preliminary micro results at discharge 05/19/25 16:41 Blood Culture - Preliminary Blood - Venous No growth after 48 hours. 05/19/25 16:31 Blood Culture - Preliminary Blood - Venous No growth after 48 hours. Discharge Plan Discharge Anticipated Discharge Date/Time: 05/24/25 10:57 Patient Disposition: Xfer SNF Discharge Diagnosis: esbl uti Referrals: Jorge Paige MD [Primary Care Provider, Family Practice] - 1 Week Discharge Medications: New ertapenem 1 gram recon soln 1 g IV DAILY 11 Days Continued furosemide 20 mg Tablet 20 mg PO DAILY PRN (Reason: Weight Gain) amlodipine 2.5 mg Tablet 2.5 mg PO DAILY 90 Days Qty: 90 0RF Protocol: Hold for SBP< HOLD for SBP < : 90 aspirin 81 mg Tablet,Delayed Release (Dr/Ec) 81 mg PO DAILY Qty: 90 0RF acetaminophen [Tylenol] 325 mg Tablet 650 mg PO Q6H PRN (Reason: Fever Or Pain) Rx Instructions: NTE 3 G / 24 HRS amiodarone 200 mg tablet 200 mg PO DAILY atorvastatin 20 mg tablet 20 mg PO BEDTIME ascorbic acid (vitamin C) [Vitamin C] 250 mg Tablet 500 mg PO DAILY cholecalciferol (vitamin D3) [Vitamin D3] 25 mcg (1,000 unit) Tablet 50 mcg PO DAILY diclofenac sodium 1 % gel 4 g topical Q6H PRN (Reason: neck pain) diclofenac sodium 1 % gel 4 g topical DAILY trazodone 50 mg tablet 25 mg PO BEDTIME polyethylene glycol 3350 [Miralax] 17 gram Powder In Packet 17 g PO DAILY sennosides-docusate sodium [Senna with Docusate Sodium] 8.6-50 mg Tablet 1 tab-cap PO BID PRN (Reason: Constipation) loperamide 2 mg Tablet 2 mg PO Q2H PRN (Reason: Diarrhea) Rx Instructions: administer after each loose stool until symptoms controlled; do not exceed 16 mg per 24 hrs dextromethorphan-guaifenesin 10-100 mg/5 mL Syrup 10 ml PO Q4H PRN (Reason: Cough) tramadol 50 mg tablet 50 mg PO BID PRN (Reason: Pain) magnesium hydroxide [Milk of Magnesia] 400 mg/5 mL Suspension 30 ml PO DAILY PRN (Reason: Constipation) bisacodyl [Dulcolax (bisacodyl)] 10 mg Suppository 10 mg MS DAILY PRN (Reason: Constipation) Rx Instructions: if no BM and M.O.M ineffective ropinirole 2 mg tablet 2 mg PO BID pantoprazole 40 mg tablet,delayed release (DR/EC) 40 mg PO DAILY@0630 Fleet Enema 19-7 gram/118 mL Enema 118 ml MS DAILY PRN (Reason: Constipation) gabapentin 300 mg Capsule 300 mg PO BID furosemide 20 mg Tablet 10 mg PO DAILY ferrous sulfate 325 mg (65 mg iron) Tablet,Delayed Release (Dr/Ec) 325 mg PO DAILY escitalopram oxalate 10 mg tablet 30 mg PO DAILY Saline Nasal 0.65 % Aerosol,[place] 2 spray INTRANASAL BID ondansetron HCl 4 mg tablet 4 mg PO Q6H tramadol 50 mg tablet 50 mg PO BEDTIME fluticasone furoate-vilanterol [Breo Ellipta] 100-25 mcg/dose blister with device 1 ea inhalation DAILY Discharge Orders: Discharge Order (Routine); Ordered 05/24/25 Ordered By: Hung Taylor Diet: Advance to usual diet Activity on Discharge: As tolerated Stand Alone Forms: Patient Portal Discharge page Print Language: Unable To Collect Care Plan Goals: Recovery Health Concerns: ESBL UTI Plan of Treatment: Continue ertapenem 1 g daily until 06/04/2025 Assessment: See above
--- NOTE | 2025-05-24 15:07 | MHC.CM.PN ---
pt to return to [facility] with a midline and 11 more days or irapenum await midline placement
[2025-05-24 15:11] VITALS: BP 131/65; PULSE 50; RESP 16; TEMP 36.2; O2SAT 95
--- NOTE | 2025-05-24 15:18 | W.PM.IDCN ---
History of Present Illness Data of Consult Service Date: 05/24/25 Requesting physician: Hung Taylor Primary Care Provider: Jorge Paige MD HPI Reason for consult: sepsis,urinary She presents with agitation from nursing facility. She also has temperature when appears to 101.6 and tachycardia. She has urine Klebsiella and ESBL E coli. There is no bacteremia. Review of Systems Review of Systems: Yes all other systems are reviewed and are negative [facility] Past Medical History Medical History Combined systolic and diastolic congestive heart failure Coronary artery disease Hypertension Hypercholesteremia Chronic renal failure Palpitations Anxiety Depression Diabetes mellitus, type 2 COPD (chronic obstructive pulmonary disease) Family History Family history: reviewed and not pertinent Surgical History Surgical History H/O coronary artery bypass surgery Social History Social History Household Members: None Household Members Other:: [facility] Housing: Assisted Living Facility Do you presently have visiting nurse or other home services: No Alcohol intake: never Patient Tobacco Use Status: Never used Tobacco Advance Directives Date on File: 01/30/24 service: No Meds Allergies Allergy/AdvReac Type Severity Reaction Status Date / Time lisinopril Allergy Unknown Unknown Uncoded 05/19/25 16:09 Active Medications: Current Medications Acetaminophen (Acetaminophen 325 Mg Tablet) 975 mg PO Q6H PRN PRN Reason: Pain, Mild 1-3,fever,headache Last Admin: 05/23/25 05:40 Dose: 975 mg Amiodarone HCl (Amiodarone Hcl 200 Mg Tablet) 200 mg PO DAILY [facility] Last Admin: 05/24/25 08:43 Dose: 200 mg Ascorbic Acid (Ascorbic Acid 500 Mg Tablet) 500 mg PO DAILY [facility] Last Admin: 05/24/25 08:43 Dose: 500 mg Aspirin (Aspirin Enteric Coated 81 Mg Tablet.Dr) 81 mg PO DAILY [facility] Last Admin: 05/24/25 08:43 Dose: 81 mg Atorvastatin Calcium (Atorvastatin Calcium 20 Mg Tablet) 20 mg PO BEDTIME [facility] Last Admin: 05/23/25 22:15 Dose: 20 mg Bisacodyl (Bisacodyl 10 Mg Supp.Rect) 10 mg [place] DAILY PRN PRN Reason: Constipation Escitalopram Oxalate (Escitalopram Oxalate 10 Mg Tablet) 30 mg PO DAILY [facility] Last Admin: 05/24/25 08:43 Dose: 30 mg Ferrous Sulfate (Ferrous Sulfate 324 Mg Tablet.Dr) 324 mg PO DAILY [facility] Last Admin: 05/24/25 08:43 Dose: 324 mg Fluticasone/Vilanterol (Fluticasone/Vilanterol 100/25 Blst.W.Dev) 1 puff INHALE DAILY [facility] Last Admin: 05/24/25 07:59 Dose: 1 puff Heparin Sodium (Porcine) (Heparin Sodium,Porcine 5,000 Unit/Ml Vial) 5,000 unit SUBCUT Q12H [facility] Last Admin: 05/24/25 08:42 Dose: 5,000 unit Loperamide HCl (Loperamide Hcl 2 Mg Capsule) 2 mg PO Q2H PRN PRN Reason: Diarrhea Last Admin: 05/20/25 10:06 Dose: 2 mg Magnesium Hydroxide (Milk Of Magnesia 30 Ml Oral.Susp) 30 ml PO DAILY PRN PRN Reason: Constipation Meropenem (Meropenem 1 Gm Vial) 1 gm IVPUSH Q8H [facility] Last Admin: 05/24/25 08:41 Dose: 1 gm Omeprazole (Omeprazole 20 Mg Capsule.Dr) 20 mg PO DAILY@0630 [facility] Last Admin: 05/24/25 06:00 Dose: Not Given Polyethylene Glycol (Polyethylene Glycol 3350 17 Gm Powd.Pack) 17 gm PO DAILY [facility] Last Admin: 05/24/25 08:41 Dose: 17 gm Ropinirole HCl (Ropinirole Hcl 2 Mg Tablet) 2 mg PO BID [facility] Last Admin: 05/24/25 08:43 Dose: 2 mg Senna/Docusate Sodium (Sennosides/Docusate Sodium Tablet) 1 tab PO BID PRN PRN Reason: Constipation Sodium Biphosphate/Sodium Phosphate (Sodium Phosphate,[place]-Dibasic 133 Ml Enema) 118 ml [place] DAILY PRN PRN Reason: Constipation Sodium Chloride (0.9 % Sodium Chloride Flush 3 Ml Syringe) 3 ml IVFLUSH QSHIFT [facility] Last Admin: 05/24/25 08:43 Dose: 3 ml Sodium Chloride (Sodium Chloride 0.65 % Nasal 44 Ml Sprbtl) 2 spray NOSTRIL-B BID [facility] Last Admin: 05/24/25 08:43 Dose: Not Given Tramadol HCl (Tramadol Hcl 50 Mg Tablet) 50 mg PO BID PRN PRN Reason: Pain, Moderate(Pain Scale 4-6) Last Admin: 05/22/25 20:00 Dose: 50 mg Vitamin D (Cholecalciferol (Vitamin D3) 25 Mcg Tablet) 50 mcg PO DAILY LAURA Last Admin: 05/24/25 08:42 Dose: 50 mcg Home Medications ?Medication ?Instructions ?Recorded ?Confirmed ?Last Taken ?Type acetaminophen 325 mg tablet 650 mg PO Q6H PRN Fever Or Pain 04/05/24 05/19/25 Unknown History (Tylenol) amiodarone 200 mg tablet 200 mg PO DAILY 04/05/24 05/19/25 Unknown History ascorbic acid (vitamin C) 250 mg 500 mg PO DAILY 04/05/24 05/19/25 Unknown History tablet (Vitamin C) atorvastatin 20 mg tablet 20 mg PO BEDTIME 04/05/24 05/19/25 Unknown History bisacodyl 10 mg rectal suppository 10 mg [place] DAILY PRN Constipation 04/05/24 05/19/25 Unknown History (Dulcolax (bisacodyl)) cholecalciferol (vitamin D3) 25 50 mcg PO DAILY 04/05/24 05/19/25 Unknown History mcg (1,000 unit) tablet (Vitamin D3) dextromethorphan-guaifenesin 10 10 ml PO Q4H PRN Cough 04/05/24 05/19/25 Unknown History mg-100 mg/5 mL oral syrup diclofenac sodium 1 % topical gel 4 g topical DAILY 04/05/24 05/19/25 Unknown History diclofenac sodium 1 % topical gel 4 g topical Q6H PRN neck pain 04/05/24 05/19/25 Unknown History escitalopram oxalate 10 mg tablet 30 mg PO DAILY 04/05/24 05/19/25 Unknown History ferrous sulfate 325 mg (65 mg 325 mg PO DAILY 04/05/24 05/19/25 Unknown History iron) tablet,delayed release furosemide 20 mg tablet 10 mg PO DAILY 04/05/24 05/19/25 Unknown History gabapentin 300 mg capsule 300 mg PO BID 04/05/24 05/19/25 Unknown History loperamide 2 mg tablet 2 mg PO Q2H PRN Diarrhea 04/05/24 05/19/25 Unknown History magnesium hydroxide 400 mg/5 mL 30 ml PO DAILY PRN Constipation 04/05/24 05/19/25 Unknown History oral suspension (Milk of Magnesia) pantoprazole 40 mg tablet,delayed 40 mg PO DAILY@0630 04/05/24 05/19/25 Unknown History release polyethylene glycol 3350 17 gram 17 g PO DAILY 04/05/24 05/19/25 Unknown History oral powder packet (Miralax) ropinirole 2 mg tablet 2 mg PO BID 04/05/24 05/19/25 Unknown History sennosides 8.6 mg-docusate sodium 1 tab-cap PO BID PRN Constipation 04/05/24 05/19/25 Unknown History 50 mg tablet (Senna with Docusate Sodium) sodium chloride 0.65 % nasal spray 2 spray intranasal BID 04/05/24 05/19/25 Unknown History aerosol (Saline Nasal) sodium phosphates 19 gram-7 118 ml [place] DAILY PRN Constipation 04/05/24 05/19/25 Unknown History gram/118 mL enema (Fleet Enema) tramadol 50 mg tablet 50 mg PO BID PRN Pain 04/05/24 05/19/25 Unknown History trazodone 50 mg tablet 25 mg PO BEDTIME 04/05/24 05/19/25 Unknown History furosemide 20 mg tablet 20 mg PO DAILY PRN Weight Gain 12/10/24 05/19/25 Unknown History fluticasone furoate 100 1 ea inhalation DAILY 05/19/25 05/19/25 Unknown History mcg-vilanterol 25 mcg/dose inhalation powder (Breo Ellipta) ondansetron HCl 4 mg tablet 4 mg PO Q6H 05/19/25 05/19/25 Unknown History tramadol 50 mg tablet 50 mg PO BEDTIME 05/19/25 05/19/25 Unknown History Physical Exam Vital Signs: Vital Signs: Last Vital Signs Temp 97.2 F 05/24/25 15:11 Pulse 50 05/24/25 15:11 Resp 16 05/24/25 15:11 BP 131/65 05/24/25 15:11 Pulse Ox 95 05/24/25 15:11 O2 Del Method Room Air 05/24/25 15:11 O2 Flow Rate 96 05/24/25 03:35 BMI result Body Mass Index 26.7 Const: General: cooperative HEENT: Head: Yes normal to inspection Face and sinus: Yes normal facial exam Mouth: Normal oral and palatal mucosa present Teeth and gingiva: dentition normal Eyes: General: appearance normal, both eyes and all related structures Pupils: Equal, round and reactive pupils present Resp: Effort & Inspection: normal respiratory effort Cardio: Rate: regular rate Rhythm: regular rhythm GI: Palpation (GI): Soft to palpation and nontender : General: Yes no CVA tenderness Back/Spine/Pelvis: Back: no CVA tenderness Skin: General skin exam: no rashes or lesions noted Neuro: General: moves all extremities Cranial nerves: Yes Equal, round and reactive pupils present Extrem: General: Yes normal to inspection Psych: Appearance: grossly normal Results Labs 05/21/25 06:28 05/21/25 06:05 Microbiology Microbiology Results: Microbiology 05/19/25 Unknown Urine Catheterized - Straight Catheter Urine Culture - Final Escherichia coli Klebsiella pneumoniae 05/19/25 16:41 Blood - Venous Blood Culture - Preliminary No growth after 48 hours. 05/19/25 16:31 Blood - Venous Blood Culture - Preliminary No growth after 48 hours. Assessment and Plan (1) Acute UTI: Status: Acute (2) Acute encephalopathy: Status: Acute Plan Encephalopathy due to urinary infection,ESBL E coli and Klebsiella Would give 14 days IV Ertapenem, no test of cure after.
--- NOTE | 2025-05-24 15:53 | MHC.CM.PN ---
pt to be dcd back to [facility] today at 6 t/m left for dgter re same
--- NOTE | 2025-05-24 15:57 | HO.MIDLINE ---
Midline Insertion MIDLINE INSERTION Diagnosis: UTI/ESBL Indication: correction ABT Pertinent Labs: reviewed Technique: Using sterile technique including cap and mask, glove and drape, the right arm was prepped and draped in the usual sterile fashion of full barrier technique with CHG. Using ultrasound guidance, right brachial vein access was obtained . 4fr single lumen nonPASV power midline trimmed to 11cm was positioned. The procedure was performed in [facility]. Ultrasound was used to document vein patency and for needle entry. A formal ultrasound picture was recorded. [employer] has released the line for use and it is currently dressed with a StatLock, Tegaderm, and CHG disc. Verification has been performed for blood return and line patency. Arm Circumference: 28cm Equipment: [employer] POWERMidline Catheter Catheter Type: 4fr single nonPASV Lot #: [id number]
== END 2025-05-24 18:09 | disposition skilled nursing facility (03) | DRG 871 ==
LOC: HO.ED 17:56 → HO.EDOVER 21:52 → HO.S3 05-20 15:58
PROVIDERS: Admitting Provider Internal Medicine; Emergency Provider Internal Medicine; PCP Student in an Organized Health Care Education/Training Program; Visit Provider Internal Medicine
DX: A41.9 Sepsis, unspecified organism (principal); G93.41 Metabolic encephalopathy; N39.0 Urinary tract infection, site not specified; I13.0 Hypertensive heart and chronic kidney disease with heart failure and stage 1 through stage 4 chronic kidney disease, or unspecified chronic kidney disease; I50.42 Chronic combined systolic (congestive) and diastolic (congestive) heart failure; N17.9 Acute kidney failure, unspecified; Z16.12 Extended spectrum beta lactamase (ESBL) resistance; I48.92 Unspecified atrial flutter; I25.10 Atherosclerotic heart disease of native coronary artery without angina pectoris; N18.2 Chronic kidney disease, stage 2 (mild); F32.9 Major depressive disorder, single episode, unspecified; E11.22 Type 2 diabetes mellitus with diabetic chronic kidney disease; E87.6 Hypokalemia; B96.1 Klebsiella pneumoniae [K. pneumoniae] as the cause of diseases classified elsewhere; B96.20 Unspecified Escherichia coli [E. coli] as the cause of diseases classified elsewhere; Z66 Do not resuscitate; F03.90 Unspecified dementia, unspecified severity, without behavioral disturbance, psychotic disturbance, mood disturbance, and anxiety; I95.9 Hypotension, unspecified; K21.9 Gastro-esophageal reflux disease without esophagitis; D63.1 Anemia in chronic kidney disease; K59.00 Constipation, unspecified; Z20.822 Contact with and (suspected) exposure to COVID-19; Z79.51 Long term (current) use of inhaled steroids; Z79.82 Long term (current) use of aspirin; Z79.899 Other long term (current) drug therapy
CPT/HCPCS: 36410; 36415; 80048; 80053; 80076; 81001; 83605; 83735; 85025; 85027; 87040; 87086; 87088; 87186; 87637; 93005; 94640; 99285; C1751; J0131; J0696; J1644; J2185; J7120; P9047

== ENCOUNTER 2025-05-19 21:30 | Outpatient (BNV) | payer MEDICARE, MEDICAID, SELFPAY | END 2025-05-19 23:58 | PROVIDERS: Admitting Provider Internal Medicine; Emergency Provider Internal Medicine; PCP Student in an Organized Health Care Education/Training Program; Visit Provider Internal Medicine Cardiovascular Disease | DX: I44.0 Atrioventricular block, first degree (principal); R00.1 Bradycardia, unspecified | CPT/HCPCS: 93010 ==

== ENCOUNTER → 2025-05-19 21:30 | Outpatient (BNV) | payer MEDICARE, MEDICAID, SELFPAY | PROVIDERS: Admitting Provider Internal Medicine; Emergency Provider Internal Medicine; Visit Provider Internal Medicine | DX: I5A Non-ischemic myocardial injury (non-traumatic) (principal) | CPT/HCPCS: 99223; 99232; 99233; 99239; 99499 ==

== ENCOUNTER → 2025-05-19 21:30 | Outpatient (BNV) | payer MEDICARE, MEDICAID, SELFPAY | PROVIDERS: Admitting Provider Internal Medicine; Emergency Provider Internal Medicine; PCP Student in an Organized Health Care Education/Training Program; Visit Provider Internal Medicine | DX: N39.0 Urinary tract infection, site not specified (principal); G93.40 Encephalopathy, unspecified | CPT/HCPCS: 99221 ==

== ENCOUNTER 2025-05-31 06:06 | Outpatient (REF) | payer MEDICARE, MEDICAID, SELFPAY ==
[2025-05-31 06:08] LABS: MANUAL DIFF FLAG NO
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
[2025-05-31 06:43] LABS: Alanine Aminotransferase 15 U/L (0-31); Albumin Level 3.0 g/dL (3.5-5.0); Alkaline Phosphatase 87 U/L (39-117); Anion Gap 13 (12-20); Aspartate Amino Transferase 18 U/L (5-31); Blood Urea Nitrogen 25 mg/dL (9-16); Calcium 8.8 mg/dL (8.4-10.2); Carbon Dioxide 24 mmol/L (22-29); Chloride 107 mmol/L (96-108); Estimated Glomerular Filt Rate > 60; Potassium 4.2 mmol/L (3.3-5.1); Sodium 140 mmol/L (135-145); Total Protein 5.6 g/dL (6.5-8.0); Uric Acid 4.1 mg/dL (2.4-5.7)
[2025-05-31 06:47] LABS: Hematocrit 34.2 % (37.0-47.0); Hemoglobin 10.8 g/dl (12.0-16.0); Imm Gran Abs Auto 0.09 X10*3/uL (0.00-0.03); Imm Gran Pct Auto 1.3 % (0.0-0.4); Lymphocytes Absolute Auto 1.5 X10*3/uL (1.2-4.9); Mean Corpuscular HGB Conc 31.6 g/dl (31.0-35.0); Mean Corpuscular Hemoglobin 31.8 pg (27.0-33.0); Mean Corpuscular Volume 100.6 fL (80.0-98.0); NRBC Abs Auto 0.000 X10*3/uL (0.0-0.012); NRBC Pct Auto 0.0 /100WBC (0.0-0.2); Platelet Count 395 X10*3/uL (160-400); Red Blood Count 3.40 X10*6/uL (4.20-5.50); White Blood Count 6.9 X10*3/uL (4.8-10.8)
== END 2025-05-31 06:07 | disposition home or self-care (01) ==
LOC: HO.MMNH3L 06:06
PROVIDERS: Visit Provider Student in an Organized Health Care Education/Training Program
DX: G93.41 Metabolic encephalopathy (principal)
CPT/HCPCS: 36415; 80053; 84550; 85025

== ENCOUNTER 2025-06-08 06:25 | Outpatient (REF) | payer MEDICARE, MEDICAID, SELFPAY ==
[2025-06-08 06:09] LABS: MANUAL DIFF FLAG NO
[2025-06-08 06:21] LABS: Hematocrit 33.4 % (37.0-47.0); Hemoglobin 11.0 g/dl (12.0-16.0); Imm Gran Abs Auto 0.01 X10*3/uL (0.00-0.03); Imm Gran Pct Auto 0.2 % (0.0-0.4); Lymphocytes Absolute Auto 1.5 X10*3/uL (1.2-4.9); Mean Corpuscular HGB Conc 32.9 g/dl (31.0-35.0); Mean Corpuscular Hemoglobin 32.3 pg (27.0-33.0); Mean Corpuscular Volume 97.9 fL (80.0-98.0); NRBC Abs Auto 0.000 X10*3/uL (0.0-0.012); NRBC Pct Auto 0.0 /100WBC (0.0-0.2); Platelet Count 256 X10*3/uL (160-400); Red Blood Count 3.41 X10*6/uL (4.20-5.50); White Blood Count 4.1 X10*3/uL (4.8-10.8)
--- OUTSIDE RECORDS SUMMARY | 2025-06-08 06:32 | XMS_ITS | Clinical Summary ---
Author Organization [facility] Address [address] [place] [address] Phone Care Team Providers Care Rotary Engraver Name Role Phone Rex Bass MD Primary Care Provider [phone] Allergies Active Allergy Reactions Criticality Noted Date [...] every 6 hours as needed. Active vit C/E/Zn/coppr/dyana tein/zeaxan (PRESERVISION AREDS-2 ORAL) Take by mouth. [...] Problem Noted Date Diagnosed Date Atrial flutter ([facility] V24, [facility] V28) 2021 Overview (08/28/2024): Last Assessment [...] HISTORICAL CHOLECYSTECTOMY OTHER SURGICAL HISTORY 12/14/2013 PROCEDURE: AL EGD PARTIAL/COMPL ESOPHAGOGASTRIC FUNDOPLASTY COLONOSCOPY 02/09/2016 PROCEDURE: HISTORICAL COLONOSCOPY OTHER SURGICAL HISTORY 05/14/2013 PROCEDURE: AL ECHO TRANSTHORAC R-T 2D W/WO M-MODE REC COMP OTHER SURGICAL HISTORY 03/13/2013 PROCEDURE: AL CABG W/ARTERIAL GRAFT THREE ARTERIAL GRAFTS OTHER SURGICAL HISTORY 12/06/2008 PROCEDURE: AL EGD PARTIAL/COMPL ESOPHAGOGASTRIC FUNDOPLASTY CARPAL TUNNEL RELEASE PROCEDURE: AL NEUROPLASTY &/TRANSPOS MEDIAN NRV CARPAL TUNNE; COMMENT: [...] CMS/HCC V28) DX:Chronic obstructive pulm onary disease ([facility]) Chronic pain DX:Chronic pain Compression fracture of L1 l umbar vertebra ([facility] V24, [facility] V28) DX:Compression fra cture of L1 lumbar vertebra ([facility]); COMMENT: and t12 vertebra Degeneration macular DX:Degenera tion macular Depression DX:Depression Diabetes type 2, controlled ([facility] V24, [facility] V28) DX:Diabetes type 2, controll ed ([facility]) Diverticulitis DX:Diverticuliti s Elevated LFTs DX:Elevated [...] 2 obesi ty Osteoporosis DX:Osteoporosis Primary hyperparathyroidism ([facility] V24) DX:Primary hyperparathyroidi sm ([facility]) Recurrent falls DX:Recurrent fal ls Restless [...] patient's age to complete this topic Insurance [facility] MEDICAID - [place] MEDICARE Advance Directives Documents on File Type Date Recorded Patient Unattended Ground Sensor Specialist Expl anation Health Care Decision (hx) 09/26/2023 AD FARNSWORTH DIRECTIVE Health Care Decision (hx) 05/09/2021 AD FARNSWORTH DIRECTIVE Health Care Decision (hx) 05/09/2021 AD FARNSWORTH DIRECTIVE Care Teams Rotary Engraver Relationship Specialty Start Date End Date Rex Bass MD [address] [place] [address], [phone] PCP - General 04/23/24
--- OUTSIDE RECORDS SUMMARY | 2025-06-08 06:33 | XMS_ITS | Patient Health Record ---
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 Name Role Phone Shelia DIAZ, Rex Primary Care Provider Unavailab sarahi Lu Holder Unavailable [phone] Allergies No Known Allergies Reason For Referral [...] Problem Information temporarily unavailable Unspecified atherosclerosis of [place] arteries of extremities, bilateral legs (I70.203) Active [...] confirmed Encounters Encounter Location Date Provider [facility] [address] [place] [address] 06/09/2024 Lu Holder [facility] [address] [address] 06/10/2024 Lu Holder Plan Of Treatment Pending Test Test Name Order Date X ray : Foot, right 2V 06/06/2012 69807-LLGLSNJ NAIL, 6 OR MORE 03/27/2012 92267-YMEXCXU NAIL, 6 OR MORE 08/22/2012 49198-VWKNWFL NAIL, 6 OR MORE 06/13/2012 84338-OSTAIAT NAIL, 6 OR MORE 08/28/2011 87058-TOXYLMR NAIL, 6 OR MORE 11/13/2011 41498-UVDVMRN NAIL, 6 OR MORE 01/18/2012 40898-CTATUIO NAIL, 6 OR MORE 11/06/2012 13208-PNDIOKU NAIL, 6 OR MORE 02/10/2013 00603-NSLFLFD NAIL, 6 OR MORE 04/14/2013 20138-FRIZZBA NAIL, 6 OR MORE 05/21/2013 39257-SAFFVMR NAIL, 6 OR MORE 07/09/2013 57063-BOFOHDW NAIL, 6 OR MORE 10/13/2013 40369-PXCZOUE NAIL, 6 OR MORE 04/23/2014 16940-CYUYSQA NAIL, 6 OR MORE 01/15/2014 19065-PGSJDAF NAIL, 6 OR MORE 07/22/2014 16044-QWTYKGM NAIL, 6 OR MORE 10/26/2014 66466-DSUKHOZ NAIL, 6 OR MORE 02/11/2015 49891-IYFOQSL NAIL, 6 OR MORE 04/19/2015 62902-RPQXUBE NAIL, 6 OR MORE 07/12/2015 00474-OQWWRGX NAIL, 6 OR MORE 10/18/2015 45996-NHVMRBM NAIL, 6 OR MORE 12/20/2015 17808-QMNKCZK NAIL, 6 OR MORE 02/28/2016 31573-KNKOROG NAIL, 6 OR MORE 06/15/2016 63686-ZAGBGJU NAIL, 6 OR MORE 09/12/2016 98544-QVMJWSK NAIL, 6 OR MORE 12/05/2016 54345-WSAJLHS NAIL, 6 OR MORE 02/22/2017 06791-MTTFSXF NAIL, 6 OR MORE 10/30/2017 36845-ELXAKBZ NAIL, 6 OR MORE 02/04/2018 16276-XWIGJKT NAIL, 6 OR MORE 04/24/2018 24377-TEYRZCG NAIL, 6 OR MORE 07/23/2018 73395-OKVYBMB NAIL, 6 OR MORE 05/24/2017 03785-DGAHGLM NAIL, 6 OR MORE 08/06/2017 62071-GBSVINI NAIL, 6 OR MORE 05/29/2019 75176-KAZQSNX NAIL, 6 OR MORE 11/11/2019 08153-ZGVADKL NAIL, 6 OR MORE 03/02/2020 93375-XXAIWNX NAIL, 6 OR MORE 05/04/2020 26694-NDAASMQ NAIL, 6 OR MORE 07/08/2020 71365-NTIYXJH NAIL, 6 OR MORE 02/17/2021 75688-ZJUOGYU NAIL, 6 OR MORE 06/20/2021 36450-AJVMRMF NAIL, 6 OR MORE 11/07/2021 10320-XSCRJUO NAIL, 6 OR MORE 01/16/2022 60915-ZHACNGQ NAIL, 6 OR MORE 03/20/2022 70651-YNFHNOP NAIL, 6 OR MORE 06/12/2022 22485-PTEJBVK NAIL, 6 OR MORE 09/12/2022 07970-YCQAVCD NAIL, 6 OR MORE 01/22/2023 79112-XIDJMOM NAIL, 6 OR MORE 05/29/2023 34432-Nwsx Destruction, 1-14 01/22/2023 63900-Fova Destruction, 1-14 07/02/2023 49004-Cxtv Destruction, 1-14 10/16/2022 12420-Ldbw Destruction, 1-14 06/12/2022 79074-Tdtf Destruction, 1-14 09/12/2022 15402-Wkay Destruction, 10-2001/16/2022 25720-Fcuu Destruction, 10-2012/19/2021 02070-Rngy Destruction, 10-2011/07/2021 99328-Cshz Destruction, 10-2008/01/2021 95996-Qeqm Destruction, 10-2007/08/2020 38701-Tarf Destruction, 10-2001/11/2021 87913-Kbro Destruction, 10-2008/23/2020 55521-Zcvl Destruction, 10-2005/04/2020 84359-Bfcm Destruction, 10-2003/02/2020 86512-Hmsj Destruction, 10-2009/18/2019 35554-Zkty Destruction, 10-2011/11/2019 19225-Gazl Destruction, 10-2007/15/2019 12027-Lfag Destruction, 10-2005/29/2019 48850-Zeli Destruction, 10-2007/02/2017 89818-Aeel Destruction, 10-2007/23/2018 05280-Helt Destruction, 10-2009/10/2018 49243-Dgye Destruction, 10-2003/26/2017 33647-Yyif Destruction, 10-2005/24/2017 27180-Uhdu Destruction, 10-2012/05/2016 85841-Chlp Destruction, 10-2008/01/2016 08684-Nark Destruction, 10-2010/24/2016 37731-Pekx Destruction, 10-2006/15/2016 09795-Aums Destruction, 10-2004/05/2016 65969-Tcbc Destruction, 10-2012/20/2015 72738-Jgwn Destruction, 10-2001/24/2016 65295-Lzcw Destruction, 10-2010/18/2015 42802-Cbdb Destruction, 10-2008/23/2015 52211-Jmtk Destruction, 10-2004/14/2013 60319-Cfgc Destruction, 10-2005/21/2013 96107-Ydjkjexk Plate 09/01/2013 25433-Rorzmwdx Plate 07/09/2013 15304-Usgxyfth Plate 02/10/2013 06658-Lvxwendk Plate 12/30/2012 01122-Dkltkkfn Plate 10/26/2014 31131-Sxxfbnqy Plate 08/26/2014 32694-Venvnyjv Plate 07/22/2014 21019-Xzuzjdlg Plate 04/23/2014 59597-Obczfhvk Plate 12/04/2013 86348-Vvblnygd Plate 07/10/2011 42390-Fjlmzcip Plate 01/18/2012 23178-Dwgvhgma Plate 10/16/2011 35929-Lzzrjkux Plate 10/25/2011 65874-Xzerlaja Plate 11/08/2011 08981-Ecgpgszi Plate 07/11/2012 74631-Btrhzdux Plate 09/25/2012 54252-Rdcifagp Plate 08/22/2012 47170-Zsczprrh Plate 03/27/2012 24088-Wurttvfj Plate 05/09/2012 99823-Oaljkojx Plate 06/13/2012 67175-Ehoussaq Plate 05/31/2015 55346-Ishicgrd Plate 07/12/2015 06154-Nhcagtgc Plate 04/19/2015 14285-Gqmokpwk Plate 02/11/2015 66422-Blproxvk Plate 03/04/2014 58769-Mxixoyrx Plate 11/25/2014 21030-Umcvcjaz Plate 06/15/2016 40209-Tpettfna Plate 03/26/2017 36544-Lbjyvcwg Plate 08/06/2017 19351-Dtiysjfh Plate 05/29/2019 07558-Mieffgph Plate 09/18/2019 53595-Vboungat Plate 07/15/2019 12433-Qssfgxax Plate 07/08/2020 16266-Atsxohfo Plate 01/11/2021 81041-Rmceiviu Plate 02/17/2021 78221-Lhqaxrvr Plate 03/31/2021 74587-Jdiobjzi Plate 06/20/2021 76489-Lgypbsca Plate 01/16/2022 18913-Npkridpz Plate 11/07/2021 01343-Hzguxzjw Plate 04/24/2022 90210-Oshusymd Plate Each Additional 73892-Arsmzzyr Plate Each Additional 10/2021 73237-Koiuhhca Plate Each Additional 09/2022 12584-Yavrreuk Plate Each Additional 95436-Hsvukfrr Plate Each Additional 04/2021 95903-Aybsbfdf Plate Each Additional 11/2019 91147-Rxazvztb Plate Each Additional 66041-Djidhkkm Plate Each Additional 04/2012 40945-Gasgxbhj Plate Each Additional 12/2011 53685-Fjshnnkb Plate Each Additional 99773-Kbgnaadj Plate Each Additional 04/2013 06822- Debride <25 sq cm 02/10/2013 95603- Debride <25 sq cm 12/30/2012 99570- Debride <25 sq cm 11/06/2012 49240- Debride <25 sq cm 05/21/2013 41604- Debride <25 sq cm 04/14/2013 85328- Debride <25 sq cm 12/04/2013 81161- Debride <25 sq cm 04/23/2014 88778- Debride <25 sq cm 05/27/2014 85055- Debride <25 sq cm 07/22/2014 52394- Debride <25 sq cm 08/26/2014 30872- Debride <25 sq cm 10/26/2014 32801- Debride <25 sq cm 06/06/2012 58564- Debride <25 sq cm 03/27/2012 69530- Debride <25 sq cm 06/13/2012 36526- Debride <25 sq cm 08/22/2012 38606- Debride <25 sq cm 09/25/2012 31808- Debride <25 sq cm 08/28/2011 85930- Debride <25 sq cm 07/10/2011 99579- Debride <25 sq cm 02/15/2012 25840- Debride <25 sq cm 12/20/2011 25094- Debride <25 sq cm 11/25/2014 02273- Debride <25 sq cm 01/04/2015 66639- Debride <25 sq cm 02/11/2015 43055- Debride <25 sq cm 03/15/2015 41111- Debride <25 sq cm 04/19/2015 47995- Debride <25 sq cm 07/12/2015 84665- Debride <25 sq cm 01/18/2017 01729- Debride <25 sq cm 09/12/2016 41163- Debride <25 sq cm 05/04/2020 02912- Debride <25 sq cm 01/11/2021 70097- Debride <25 sq cm 10/30/2017 52256- Debride <25 sq cm 07/02/2017 04122- Debride <25 sq cm 09/10/2018 07765- Debride <25 sq cm 05/29/2019 79327- Debride <25 sq cm 02/17/2021 19790- Debride <25 sq cm 03/31/2021 18966- Debride <25 sq cm 06/20/2021 93559- Debride <25 sq cm 11/07/2021 20897- Debride <25 sq cm 08/01/2021 36539- Debride <25 sq cm 11/28/2021 81971- Debride <25 sq cm 06/12/2022 46554- Debride <25 sq cm 04/24/2022 25439- Debride <25 sq cm 03/20/2022 19285- Debride <25 sq cm 09/12/2022 84891- Debride <25 sq cm 11/13/2022 38171- Debride <25 sq cm 01/22/2023 74847- Debride <25 sq cm 10/16/2022 39352- Debride <25 sq cm 07/02/2023 55095-TBYEWLX SKIN/TISSUE 05/22/2024 95330-WFQCEMQ SKIN/TISSUE 01/15/2014 85215-ACJSDWV SKIN/TISSUE 03/04/2014 57340 I&D ABSCESS- SIMPLE,SINGLE 012 57459 I&D ABSCESS- SIMPLE,SINGLE 013 74729-XQDP SKIN LESIONS, 2 TO 4 05/22/20 24 49206- Removal of Foreign Body, Subcut 1 79372-Bbzhniik Benign Lesion 0.5cm 11/08 08859-Yofmjmcj Benign Lesion 0.5cm 10/25- Ganglion Cyst Injection/Aspiratio n 01/18/2012- Ganglion Cyst Injection/Aspiratio n 07/02/2017 Future Test Test Name Order Date 42101-Nxcoccbo Plate Each Additional Insurance Providers Payer Name Payer Address Payer Phone Subscriber Number Group Number Insured Name Patient Relationship to Insured Coverage Start Date Coverage End Date Medicare National Govt Svcs Inc [address] [place] [address] [id number] Shreya Calvert Self - patient is the insured 1 [employer] [address] [place] [address] [id number] Shreya Calvert Self - patient is the [...] Rehab 05/2024 [facility], rehab- leg swelling 05/2023 [facility] [place] down 02/2023 [facility] ran over by scooter 02/2023 [facility] heart issues 08/2022 [facility] Cellulitis 07/2022 [facility] heart issues 03/2022 [facility]- cellulitis, day stay, 3 week therap y 01/2022 [facility], rehab- fell 05/2021 [facility] for cellulitis for 5 days 9 [facility] fall 05/05/[address] [facility] 2015 ER, tripped bumped head 08/2015 Admitted to [facility] overnight;GERD 03/2015 [facility] - Emergency 11/23/14 & 11/24 Dehydration 11/2011
[2025-06-08 06:39] LABS: Anion Gap 13 (12-20); Blood Urea Nitrogen 23 mg/dL (9-16); Calcium 9.0 mg/dL (8.4-10.2); Carbon Dioxide 24 mmol/L (22-29); Chloride 107 mmol/L (96-108); Estimated Glomerular Filt Rate > 60; Potassium 3.6 mmol/L (3.3-5.1); Sodium 140 mmol/L (135-145)
== END 2025-06-08 06:26 | disposition home or self-care (01) ==
LOC: HO.MMNH3L 06:25
PROVIDERS: Visit Provider Student in an Organized Health Care Education/Training Program
DX: I48.92 Unspecified atrial flutter (principal)
CPT/HCPCS: 36415; 80048; 85025

== ENCOUNTER 2025-06-22 05:29 | Outpatient (REF) | payer MEDICARE, MEDICAID, SELFPAY ==
--- OUTSIDE RECORDS SUMMARY | 2025-06-22 05:31 | XMS_ITS | Patient Health Record ---
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 Teacher Name Role Phone Shelia DIAZ, Rex Primary Care Provider Unavailab sarahi Lu Holder Unavailable [phone] Allergies No Known Allergies Reason For Referral [...] Problem Information temporarily unavailable Unspecified atherosclerosis of [place] arteries of extremities, bilateral legs (I70.203) Active [...] metatarsal of left foot (M21.6X2) Active confirmed Plan Of Treatment Pending Test Test Name Order Date X ray : Foot, right 2V 06/06/2012 63804-WMHGECA NAIL, 6 OR MORE 03/27/2012 90621-ZWJHZPD NAIL, 6 OR MORE 08/22/2012 30195-TCCLFOL NAIL, 6 OR MORE 06/13/2012 30458-ZFIUGMS NAIL, 6 OR MORE 08/28/2011 16781-EWQNMNV NAIL, 6 OR MORE 11/13/2011 14430-IVJBIWY NAIL, 6 OR MORE 01/18/2012 39129-GDPJSQI NAIL, 6 OR MORE 11/06/2012 55780-MHWYCBY NAIL, 6 OR MORE 02/10/2013 83014-FURZSXZ NAIL, 6 OR MORE 04/14/2013 77150-SMJSJSS NAIL, 6 OR MORE 05/21/2013 19020-TDHWZOW NAIL, 6 OR MORE 07/09/2013 48879-MNMXWTV NAIL, 6 OR MORE 10/13/2013 43419-NXYIFSS NAIL, 6 OR MORE 04/23/2014 45869-KMXHRJT NAIL, 6 OR MORE 01/15/2014 14579-HLDEDEB NAIL, 6 OR MORE 07/22/2014 05121-XGBYYCP NAIL, 6 OR MORE 10/26/2014 99367-ZNJTRQY NAIL, 6 OR MORE 02/11/2015 82630-BGBDBPR NAIL, 6 OR MORE 04/19/2015 24565-UPAUYHS NAIL, 6 OR MORE 07/12/2015 43440-AZNWTDC NAIL, 6 OR MORE 10/18/2015 68877-FBVUKML NAIL, 6 OR MORE 12/20/2015 77173-AQOZMUG NAIL, 6 OR MORE 02/28/2016 08620-IKMRSAS NAIL, 6 OR MORE 06/15/2016 43920-WBSCXCO NAIL, 6 OR MORE 09/12/2016 58646-LOPQRHI NAIL, 6 OR MORE 12/05/2016 06653-QNEPSMR NAIL, 6 OR MORE 02/22/2017 53867-KOAGOQC NAIL, 6 OR MORE 10/30/2017 18329-NOYKNVV NAIL, 6 OR MORE 02/04/2018 59982-XKSBFMV NAIL, 6 OR MORE 04/24/2018 53737-HIALBFG NAIL, 6 OR MORE 07/23/2018 97544-YRHJHIN NAIL, 6 OR MORE 05/24/2017 35695-RNOAOLM NAIL, 6 OR MORE 08/06/2017 92132-UZVNQYS NAIL, 6 OR MORE 05/29/2019 87753-CXOPPMH NAIL, 6 OR MORE 11/11/2019 76613-RNEPBBU NAIL, 6 OR MORE 03/02/2020 93315-VKIYUQM NAIL, 6 OR MORE 05/04/2020 81969-RNEQAXD NAIL, 6 OR MORE 07/08/2020 58453-HLKUKHW NAIL, 6 OR MORE 02/17/2021 08501-JWDDRVM NAIL, 6 OR MORE 06/20/2021 90770-NTWWOGS NAIL, 6 OR MORE 11/07/2021 84389-IIEPDMN NAIL, 6 OR MORE 01/16/2022 89692-CNRTWDW NAIL, 6 OR MORE 03/20/2022 97496-PURZZHN NAIL, 6 OR MORE 06/12/2022 79037-TNVIJUY NAIL, 6 OR MORE 09/12/2022 30518-CFJFQFR NAIL, 6 OR MORE 01/22/2023 23364-DIDYAUM NAIL, 6 OR MORE 05/29/2023 79914-Krqj Destruction, -14 01/22/2023 15642-Rrih Destruction, -14 07/02/2023 14346-Ksvk Destruction, -14 10/16/2022 06000-Gzyh Destruction, -14 06/12/2022 76986-Cmvw Destruction, -14 09/12/2022 08159-Orar Destruction, -14 01/16/2022 51544-Mfzq Destruction, -14 12/19/2021 90397-Wpbb Destruction, -14 11/07/2021 40313-Yzqc Destruction, -14 08/01/2021 01663-Hybx Destruction, 10-2007/08/2020 58336-Jluc Destruction, 10-2001/11/2021 67897-Cykl Destruction, 10-2008/23/2020 15274-Qkqv Destruction, 10-2005/04/2020 70469-Rotd Destruction, 10-2003/02/2020 94188-Fpyk Destruction, 10-2009/18/2019 12363-Sygu Destruction, 10-2011/11/2019 94513-Jaeu Destruction, 10-2007/15/2019 20372-Rcyg Destruction, 10-2005/29/2019 87178-Yoip Destruction, 10-2007/02/2017 42964-Xdap Destruction, 10-2007/23/2018 62349-Kmax Destruction, 10-2009/10/2018 06544-Amwt Destruction, 10-2003/26/2017 32090-Uqpt Destruction, 10-2005/24/2017 34483-Xuuc Destruction, 10-2012/05/2016 37114-Kskf Destruction, 10-2008/01/2016 97264-Iupa Destruction, 10-2010/24/2016 05181-Ciok Destruction, 10-2006/15/2016 32660-Xqss Destruction, 10-2004/05/2016 93103-Ekah Destruction, 10-2012/20/2015 44339-Yolf Destruction, 10-2001/24/2016 85164-Tvaj Destruction, 10-2010/18/2015 36391-Stgz Destruction, 10-2008/23/2015 24465-Tgxz Destruction, 10-2004/14/2013 91179-Kngp Destruction, 10-2005/21/2013 55669-Fmfdspwi Plate 09/01/2013 48435-Zxdtifph Plate 07/09/2013 23047-Gzfzwuqj Plate 02/10/2013 12697-Ptbplgmy Plate 12/30/2012 49188-Mcatwmrq Plate 10/26/2014 51020-Wfarlzaa Plate 08/26/2014 07279-Enprumtn Plate 07/22/2014 89585-Paiivrmm Plate 04/23/2014 83182-Ixkzkqze Plate 12/04/2013 25094-Udfqxpkx Plate 07/10/2011 76228-Wbjgrmim Plate 01/18/2012 91732-Fhfgnjvs Plate 10/16/2011 96123-Xteyspal Plate 10/25/2011 41873-Ipwvzmmn Plate 11/08/2011 92174-Tkhcdxdo Plate 07/11/2012 82186-Ufocaiah Plate 09/25/2012 14088-Qwtvgzxs Plate 08/22/2012 17264-Cidfsxtw Plate 03/27/2012 11481-Vluihdeq Plate 05/09/2012 32454-Qtctvmcb Plate 06/13/2012 25752-Pjlvbced Plate 05/31/2015 15301-Hndzxfur Plate 07/12/2015 47061-Tjmtvpgc Plate 04/19/2015 35972-Kqeolamu Plate 02/11/2015 15105-Ezogcugs Plate 03/04/2014 74804-Wbfsagxx Plate 11/25/2014 78407-Ldjiupmh Plate 06/15/2016 34450-Epijawod Plate 03/26/2017 66405-Hidavubh Plate 08/06/2017 39433-Lopcsjnu Plate 05/29/2019 28649-Bfqeyrqj Plate 09/18/2019 25177-Rpkckjpp Plate 07/15/2019 31195-Xypffnmo Plate 07/08/2020 98044-Kzocnpqa Plate 01/11/2021 33626-Yfwepclo Plate 02/17/2021 60848-Zqeqsfsb Plate 03/31/2021 72163-Xtjqhtnu Plate 06/20/2021 15671-Vdbtoyos Plate 01/16/2022 80163-Tohqhlwy Plate 11/07/2021 38906-Mchvajkc Plate 04/24/2022 80996-Ibeeurlp Plate Each Additional 84906-Pgrfqjcj Plate Each Additional 10/2021 84098-Siomszyl Plate Each Additional 09/2022 82215-Czqwkfzt Plate Each Additional 52232-Jbxagoei Plate Each Additional 04/2021 25574-Exeyjmue Plate Each Additional 11/2019 39205-Wkawhgah Plate Each Additional 06237-Qhfxpeee Plate Each Additional 04/2012 47147-Kxzksqyj Plate Each Additional 12/2011 20282-Olucpreh Plate Each Additional 72050-Qmjryqxx Plate Each Additional 04/2013 98682- Debride <25 sq cm 02/10/2013 78522- Debride <25 sq cm 12/30/2012 14402- Debride <25 sq cm 11/06/2012 21075- Debride <25 sq cm 05/21/2013 06315- Debride <25 sq cm 04/14/2013 47170- Debride <25 sq cm 12/04/2013 82621- Debride <25 sq cm 04/23/2014 69526- Debride <25 sq cm 05/27/2014 01033- Debride <25 sq cm 07/22/2014 18519- Debride <25 sq cm 08/26/2014 67972- Debride <25 sq cm 10/26/2014 51793- Debride <25 sq cm 06/06/2012 57158- Debride <25 sq cm 03/27/2012 02530- Debride <25 sq cm 06/13/2012 62089- Debride <25 sq cm 08/22/2012 51070- Debride <25 sq cm 09/25/2012 53882- Debride <25 sq cm 08/28/2011 53083- Debride <25 sq cm 07/10/2011 10572- Debride <25 sq cm 02/15/2012 29960- Debride <25 sq cm 12/20/2011 23103- Debride <25 sq cm 11/25/2014 17594- Debride <25 sq cm 01/04/2015 21783- Debride <25 sq cm 02/11/2015 65869- Debride <25 sq cm 03/15/2015 07088- Debride <25 sq cm 04/19/2015 60421- Debride <25 sq cm 07/12/2015 95597- Debride <25 sq cm 01/18/2017 90288- Debride <25 sq cm 09/12/2016 85547- Debride <25 sq cm 05/04/2020 69073- Debride <25 sq cm 01/11/2021 34485- Debride <25 sq cm 10/30/2017 00179- Debride <25 sq cm 07/02/2017 04260- Debride <25 sq cm 09/10/2018 58183- Debride <25 sq cm 05/29/2019 85089- Debride <25 sq cm 02/17/2021 67509- Debride <25 sq cm 03/31/2021 61383- Debride <25 sq cm 06/20/2021 29645- Debride <25 sq cm 11/07/2021 98364- Debride <25 sq cm 08/01/2021 48528- Debride <25 sq cm 11/28/2021 19338- Debride <25 sq cm 06/12/2022 42260- Debride <25 sq cm 04/24/2022 29165- Debride <25 sq cm 03/20/2022 67971- Debride <25 sq cm 09/12/2022 60146- Debride <25 sq cm 11/13/2022 20411- Debride <25 sq cm 01/22/2023 80299- Debride <25 sq cm 10/16/2022 84023- Debride <25 sq cm 07/02/2023 51437-NMKXPXR SKIN/TISSUE 05/22/2024 71725-ERWHVCO SKIN/TISSUE 01/15/2014 76793-XIQKORF SKIN/TISSUE 03/04/2014 12992 I&D ABSCESS- SIMPLE,SINGLE 012 74205 I&D ABSCESS- SIMPLE,SINGLE 013 67906-GCPB SKIN LESIONS, 2 TO 4 05/22/20 24 67551- Removal of Foreign Body, Subcut 1 72751-Wjqwqnsy Benign Lesion 0.5cm 11/08 57442-Xfnizihv Benign Lesion 0.5cm 10/25- Ganglion Cyst Injection/Aspiratio n 01/18/2012- Ganglion Cyst Injection/Aspiratio n 07/02/2017 Future Test Test Name Order Date 40507-Xzokdqmu Plate Each Additional Insurance Providers Payer Name Payer Address Payer Phone Subscriber Number Group Number Insured Name Patient Relationship to Insured Coverage Start Date Coverage End Date Medicare National Govt Svcs Inc [address] [facility] [address] [id number] Shreya Calvert Self - patient is the insured 1 [employer] Blue [employer] [address] [place] [address] [id number] Shreya Calvert Self - patient is the insured Medical (General) History Medical History History ICD Code mumps measles chicken pox cataracts Anxiety disorder vascular phlebitis(clots) neuropathy hepatitis back, hip, knee pain Arthritis Type 2 Diabetic Surgical History Surgery Date(Month/Year) back surgery 2007 carpal tunnel surgery 1995 shoulder surgery 2004 triple bypass 03/2013 Right hand surgery 12/2013 Cholecystectomy 02/2016 left knee replacement 06/29/2016 Hospitalization History Reason Date(Month/Year) [facility]- leg swelling 05/2023 [facility] fell down 02/2023 [facility] ran over by scooter 02/2023 [facility] heart issues 08/2022 MM Cellulitis 07/2022 [facility] heart issues 03/2022 [facility]- cellulitis, day stay, 3 week therap y 01/2022 [facility], rehab- fell 05/2021 [facility] for cellulitis for 5 days 9 [facility] fall 05/05/18 [facility] 2015 [facility], tripped bumped head 08/2015 Admitted to [facility] overnight;GERD 03/2015 [facility] 11/23/14 & 11/24 Dehydration 11/2011
[2025-06-22 06:42] LABS: Anion Gap 12 (12-20); Blood Urea Nitrogen 23 mg/dL (9-16); Calcium 9.0 mg/dL (8.4-10.2); Carbon Dioxide 25 mmol/L (22-29); Chloride 107 mmol/L (96-108); Estimated Glomerular Filt Rate 55; Potassium 4.1 mmol/L (3.3-5.1); Sodium 140 mmol/L (135-145)
== END 2025-06-22 05:30 | disposition home or self-care (01) ==
LOC: HO.MMNH3L 05:29
PROVIDERS: Visit Provider Physician Assistant Medical
DX: G93.41 Metabolic encephalopathy (principal)
CPT/HCPCS: 36415; 80048

== ENCOUNTER 2025-06-23 06:09 | Outpatient (REF) | payer MEDICARE, MEDICAID, SELFPAY ==
[2025-06-23 06:12] LABS: MANUAL DIFF FLAG NO
[2025-06-23 07:21] LABS: Hematocrit 37.4 % (37.0-47.0); Hemoglobin 12.2 g/dl (12.0-16.0); Imm Gran Abs Auto 0.04 X10*3/uL (0.00-0.03); Imm Gran Pct Auto 0.6 % (0.0-0.4); Lymphocytes Absolute Auto 1.5 X10*3/uL (1.2-4.9); Mean Corpuscular HGB Conc 32.6 g/dl (31.0-35.0); Mean Corpuscular Hemoglobin 32.4 pg (27.0-33.0); Mean Corpuscular Volume 99.5 fL (80.0-98.0); NRBC Abs Auto 0.000 X10*3/uL (0.0-0.012); NRBC Pct Auto 0.0 /100WBC (0.0-0.2); Platelet Count 199 X10*3/uL (160-400); Red Blood Count 3.76 X10*6/uL (4.20-5.50); White Blood Count 6.9 X10*3/uL (4.8-10.8)
[2025-06-23 07:56] LABS: Anion Gap 10 (12-20); Blood Urea Nitrogen 23 mg/dL (9-16); Calcium 8.9 mg/dL (8.4-10.2); Carbon Dioxide 25 mmol/L (22-29); Chloride 108 mmol/L (96-108); Estimated Glomerular Filt Rate 56; Potassium 4.1 mmol/L (3.3-5.1); Sodium 139 mmol/L (135-145)
== END 2025-06-23 06:10 | disposition home or self-care (01) ==
LOC: HO.MMNH3L 06:09
PROVIDERS: Visit Provider Student in an Organized Health Care Education/Training Program
DX: G93.41 Metabolic encephalopathy (principal); J44.9 Chronic obstructive pulmonary disease, unspecified; I50.40 Unspecified combined systolic (congestive) and diastolic (congestive) heart failure
CPT/HCPCS: 36415; 80048; 85025

== ENCOUNTER 2025-06-29 17:48 | Outpatient (REF) | payer MEDICARE, MEDICAID, SELFPAY ==
[2025-06-29 18:03] LABS: Appearance Urine Cloudy; Glucose Urine UA Negative (Negative); PH 5.5 (5.0-9.0); Specific Gravity - Urine 1.010 (1.005-1.025); UMIC TRIGGER UA YES
--- OUTSIDE RECORDS SUMMARY | 2025-06-29 18:53 | XMS_ITS | Clinical Summary ---
Author Organization [facility] Address [address] [place] [address] Phone Care Team Providers Care Time Clerk Name Role Phone Rex Bass MD Primary Care Provider [phone] Allergies Active Allergy Reactions Criticality Noted Date [...] Problem Noted Date Diagnosed Date Atrial flutter ([facility] V24, [facility] V28) 2021 Overview (08/28/2024): Last Assessment [...] HISTORICAL CHOLECYSTECTOMY OTHER SURGICAL HISTORY 12/14/2013 PROCEDURE: IL EGD PARTIAL/COMPL ESOPHAGOGASTRIC FUNDOPLASTY COLONOSCOPY 02/09/2016 PROCEDURE: HISTORICAL COLONOSCOPY OTHER SURGICAL HISTORY 05/14/2013 PROCEDURE: [place] ECHO TRANSTHORAC R-T 2D W/WO M-MODE REC COMP OTHER SURGICAL HISTORY 03/13/2013 PROCEDURE: [place] CABG W/ARTERIAL GRAFT THREE ARTERIAL GRAFTS OTHER SURGICAL HISTORY 12/06/2008 PROCEDURE: IL EGD PARTIAL/COMPL ESOPHAGOGASTRIC FUNDOPLASTY CARPAL TUNNEL RELEASE PROCEDURE: [place] NEUROPLASTY &/TRANSPOS MEDIAN NRV CARPAL TUNNE; COMMENT: [...] CMS/HCC V28) DX:Chronic obstructive pulm onary disease ([facility]) Chronic pain DX:Chronic pain Compression fracture of L1 l umbar vertebra ([facility] V24, [facility] V28) DX:Compression fra cture of L1 lumbar vertebra ([facility]); COMMENT: and t12 vertebra Degeneration macular DX:Degenera tion macular Depression DX:Depression Diabetes type 2, controlled ([facility] [place], [facility] V28) DX:Diabetes type 2, controll ed ([facility]) Diverticulitis DX:Diverticuliti s Elevated LFTs DX:Elevated [...] 2 obesi ty Osteoporosis DX:Osteoporosis Primary hyperparathyroidism ([facility] [place]) DX:Primary hyperparathyroidi sm ([facility]) Recurrent falls DX:Recurrent fal ls Restless [...] 09/15/2022 Hypertension/CHF/CAD Annual BMP Blood Test 09/16/2022 Depression Screening 10/07/2024 Diabetes: Blood Sugar Control Test (HGBA1C) 10/19/2024 COVID-19 Vaccine ( season) 2025 02/28/2022, 08/23/2021, 12/03/2020, Additional history exists Influenza Vaccine (#1) 2025 , 07/31/2022, 10/19/2021, [...] patient's age to complete this topic Insurance [facility] MEDICAID - [place] MEDICARE Advance Directives Documents on File Type Date Recorded Patient Price Analyst Expl anation Health Care Decision (hx) 09/26/2023 AD FARNSWORTH DIRECTIVE Health Care Decision (hx) 05/09/2021 AD FARNSWORTH DIRECTIVE Health Care Decision (hx) 05/09/2021 AD FARNSWORTH DIRECTIVE Care Teams Time Clerk Relationship Specialty Start Date End Date Rex Bass MD [address] [place] [address], [phone] PCP - General 04/23/24
--- OUTSIDE RECORDS SUMMARY | 2025-06-29 18:53 | XMS_ITS | Patient Health Record ---
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 [...] X ray : Foot, right 2V 06/06/2012 02958-TRJYQLO NAIL, 6 OR MORE 03/27/2012 88101-TNYUMXT NAIL, 6 OR MORE 08/22/2012 43454-MNTOANV NAIL, 6 OR MORE 06/13/2012 04391-ZHGSXMO NAIL, 6 OR MORE 08/28/2011 25157-LKKHQNM NAIL, 6 OR MORE 11/13/2011 34106-BPOWFKI NAIL, 6 OR MORE 01/18/2012 76581-BEEQPSS NAIL, 6 OR MORE 11/06/2012 17761-UXLJBMA NAIL, 6 OR MORE 02/10/2013 44508-GPHWQBJ NAIL, 6 OR MORE 04/14/2013 10799-YJELNBI NAIL, 6 OR MORE 05/21/2013 03551-VOUALVJ NAIL, 6 OR MORE 07/09/2013 65149-DJYIWLM NAIL, 6 OR MORE 10/13/2013 43247-AFNKXUJ NAIL, 6 OR MORE 04/23/2014 42107-KMJUVNE NAIL, 6 OR MORE 01/15/2014 20514-AJAVOLY NAIL, 6 OR MORE 07/22/2014 86658-YBCPEIO NAIL, 6 OR MORE 10/26/2014 80802-ZLUNNNR NAIL, 6 OR MORE 02/11/2015 07564-MGIRQOZ NAIL, 6 OR MORE 04/19/2015 25168-BCCRZKY NAIL, 6 OR MORE 07/12/2015 52064-QVRGKYV NAIL, 6 OR MORE 10/18/2015 95084-QZOVUND NAIL, 6 OR MORE 12/20/2015 27445-FUFTDTV NAIL, 6 OR MORE 02/28/2016 35156-BXUHUEL NAIL, 6 OR MORE 06/15/2016 93930-LIUMVRC NAIL, 6 OR MORE 09/12/2016 93064-ULWCTJW NAIL, 6 OR MORE 12/05/2016 86282-AHBJRNN NAIL, 6 OR MORE 02/22/2017 32996-ACYNXRP NAIL, 6 OR MORE 10/30/2017 26871-EJZRRSV NAIL, 6 OR MORE 02/04/2018 81043-RXFWFDN NAIL, 6 OR MORE 04/24/2018 24654-KIGVYKW NAIL, 6 OR MORE 07/23/2018 53623-JHBHWBD NAIL, 6 OR MORE 05/24/2017 34460-ZOKAMVN NAIL, 6 OR MORE 08/06/2017 09343-ZMFYZZI NAIL, 6 OR MORE 05/29/2019 27586-IKOZRSK NAIL, 6 OR MORE 11/11/2019 68135-LBWXCIF NAIL, 6 OR MORE 03/02/2020 95705-MCAWFCT NAIL, 6 OR MORE 05/04/2020 17317-ORRBNTC NAIL, 6 OR MORE 07/08/2020 55479-KHTVYVC NAIL, 6 OR MORE 02/17/2021 99304-EAHPZZL NAIL, 6 OR MORE 06/20/2021 23937-RYOWJDA NAIL, 6 OR MORE 11/07/2021 01217-RIAMOBS NAIL, 6 OR MORE 01/16/2022 39202-RRPATPS NAIL, 6 OR MORE 03/20/2022 83321-UBJFZYN NAIL, 6 OR MORE 06/12/2022 18949-YMQGMNU NAIL, 6 OR MORE 09/12/2022 37249-WDBLINB NAIL, 6 OR MORE 01/22/2023 92061-HXSGEET NAIL, 6 OR MORE 05/29/2023 70776-Rgfs Destruction, -14 01/22/2023 34474-Hwyi Destruction, -14 07/02/2023 06341-Ispv Destruction, -14 10/16/2022 42999-Hbzw Destruction, -14 06/12/2022 44058-Syai Destruction, -14 09/12/2022 08683-Rzcv Destruction, -14 01/16/2022 07883-Park Destruction, -14 12/19/2021 13307-Rzwx Destruction, -14 11/07/2021 58722-Sjjl Destruction, -14 08/01/2021 82938-Yqqx Destruction, 10-2007/08/2020 37056-Ojqh Destruction, 10-2001/11/2021 64942-Izxk Destruction, 10-2008/23/2020 66569-Dlwq Destruction, 10-2005/04/2020 71081-Svlb Destruction, 10-2003/02/2020 77493-Lbng Destruction, 10-2009/18/2019 18544-Wxuy Destruction, 10-2011/11/2019 19094-Skie Destruction, 10-2007/15/2019 75076-Fuxr Destruction, 10-2005/29/2019 05008-Tbos Destruction, 10-2007/02/2017 19703-Mdzd Destruction, 10-2007/23/2018 77819-Zolh Destruction, 10-2009/10/2018 58541-Ujnl Destruction, 10-2003/26/2017 90432-Xiyz Destruction, 10-2005/24/2017 80049-Ggry Destruction, 10-2012/05/2016 60769-Nocs Destruction, 10-2008/01/2016 89214-Vctx Destruction, 10-2010/24/2016 62203-Ehgm Destruction, 10-2006/15/2016 79956-Nnix Destruction, 10-2004/05/2016 89100-Rvrm Destruction, 10-2012/20/2015 23254-Mphl Destruction, 10-2001/24/2016 64383-Xnhi Destruction, 10-2010/18/2015 00969-Phct Destruction, 10-2008/23/2015 93532-Yqmd Destruction, 10-2004/14/2013 74604-Leyb Destruction, 10-2005/21/2013 48192-Uorokigt Plate 09/01/2013 94499-Qnroltqq Plate 07/09/2013 22911-Qxayimox Plate 02/10/2013 39676-Oojuvpex Plate 12/30/2012 37741-Exnknzlu Plate 10/26/2014 00365-Gnhxceoz Plate 08/26/2014 42655-Rebkzfts Plate 07/22/2014 42073-Fwijgpfz Plate 04/23/2014 30699-Bhwawiie Plate 12/04/2013 80679-Mnrxfhjv Plate 07/10/2011 86257-Fceysnwz Plate 01/18/2012 72784-Gdbfwkja Plate 10/16/2011 93914-Zepynmni Plate 10/25/2011 30243-Rwgrndrg Plate 11/08/2011 91909-Gifuvxmb Plate 07/11/2012 40311-Yeplgubx Plate 09/25/2012 87512-Kqvdbtzq Plate 08/22/2012 56295-Jdfjauiz Plate 03/27/2012 50046-Qwirsrqd Plate 05/09/2012 88136-Fyvvbpmp Plate 06/13/2012 90871-Vzevnzej Plate 05/31/2015 20838-Vhhvpebm Plate 07/12/2015 00243-Riacmudq Plate 04/19/2015 05719-Idunnygo Plate 02/11/2015 73001-Olwojgsh Plate 03/04/2014 79492-Qfugwmeg Plate 11/25/2014 59091-Itkpdayz Plate 06/15/2016 46355-Lsxtztey Plate 03/26/2017 59119-Qorkhnxz Plate 08/06/2017 85569-Nwkbjdjw Plate 05/29/2019 20184-Wxafobcc Plate 09/18/2019 57655-Wslkcdtt Plate 07/15/2019 28764-Igsrjuda Plate 07/08/2020 89334-Hmhswnlw Plate 01/11/2021 46793-Lcllomyj Plate 02/17/2021 45491-Kagjkgwr Plate 03/31/2021 95846-Rcoipmku Plate 06/20/2021 65887-Soyjeyce Plate 01/16/2022 70483-Akxxlhzg Plate 11/07/2021 89508-Yulkymwg Plate 04/24/2022 65798-Ectopphy Plate Each Additional 23513-Uryiwlhx Plate Each Additional 10/2021 56404-Wyyfgwyz Plate Each Additional 09/2022 50746-Mbmorsjg Plate Each Additional 28104-Qnjfuzmp Plate Each Additional 04/2021 51313-Ktpadnrd Plate Each Additional 11/2019 66478-Bspagamn Plate Each Additional 31940-Riuubrea Plate Each Additional 04/2012 03258-Livefkif Plate Each Additional 12/2011 90329-Jceaebbj Plate Each Additional 60527-Zynazdjy Plate Each Additional 04/2013 98619- Debride <25 sq cm 02/10/2013 02707- Debride <25 sq cm 12/30/2012 33941- Debride <25 sq cm 11/06/2012 93928- Debride <25 sq cm 05/21/2013 99681- Debride <25 sq cm 04/14/2013 13759- Debride <25 sq cm 12/04/2013 77978- Debride <25 sq cm 04/23/2014 20657- Debride <25 sq cm 05/27/2014 33432- Debride <25 sq cm 07/22/2014 05714- Debride <25 sq cm 08/26/2014 46508- Debride <25 sq cm 10/26/2014 95750- Debride <25 sq cm 06/06/2012 86748- Debride <25 sq cm 03/27/2012 41885- Debride <25 sq cm 06/13/2012 62902- Debride <25 sq cm 08/22/2012 72592- Debride <25 sq cm 09/25/2012 95245- Debride <25 sq cm 08/28/2011 95506- Debride <25 sq cm 07/10/2011 97424- Debride <25 sq cm 02/15/2012 89156- Debride <25 sq cm 12/20/2011 05030- Debride <25 sq cm 11/25/2014 00682- Debride <25 sq cm 01/04/2015 11201- Debride <25 sq cm 02/11/2015 68022- Debride <25 sq cm 03/15/2015 98531- Debride <25 sq cm 04/19/2015 03647- Debride <25 sq cm 07/12/2015 76012- Debride <25 sq cm 01/18/2017 56616- Debride <25 sq cm 09/12/2016 33482- Debride <25 sq cm 05/04/2020 05756- Debride <25 sq cm 01/11/2021 34036- Debride <25 sq cm 10/30/2017 51135- Debride <25 sq cm 07/02/2017 99570- Debride <25 sq cm 09/10/2018 23041- Debride <25 sq cm 05/29/2019 24570- Debride <25 sq cm 02/17/2021 55762- Debride <25 sq cm 03/31/2021 53301- Debride <25 sq cm 06/20/2021 94579- Debride <25 sq cm 11/07/2021 82173- Debride <25 sq cm 08/01/2021 37427- Debride <25 sq cm 11/28/2021 37883- Debride <25 sq cm 06/12/2022 60421- Debride <25 sq cm 04/24/2022 90384- Debride <25 sq cm 03/20/2022 02364- Debride <25 sq cm 09/12/2022 35237- Debride <25 sq cm 11/13/2022 16298- Debride <25 sq cm 01/22/2023 65763- Debride <25 sq cm 10/16/2022 07753- Debride <25 sq cm 07/02/2023 41872-JJGBRIH SKIN/TISSUE 05/22/2024 46739-BCLYORO SKIN/TISSUE 01/15/2014 78443-TSBVPGL SKIN/TISSUE 03/04/2014 71092 I&D ABSCESS- SIMPLE,SINGLE 012 00292 I&D ABSCESS- SIMPLE,SINGLE 013 69157-UCFM SKIN LESIONS, 2 TO 4 05/22/20 24 92762- Removal of Foreign Body, Subcut 1 11038-Pkycdizn Benign Lesion 0.5cm 11/08 17216-Znnuvtii Benign Lesion 0.5cm 10/25- Ganglion Cyst Injection/Aspiratio n 01/18/2012- Ganglion Cyst Injection/Aspiratio n 07/02/2017 Future Test Test Name Order Date 10952-Gcfkmwgf Plate Each Additional Insurance Providers Payer Name Payer Address Payer Phone Subscriber Number Group Number Insured Name Patient Relationship to Insured Coverage Start Date Coverage End Date Medicare National Govt Svcs Inc [address] [place] [address] [id number] Shreya Calvert Self - patient is the insured 1 [employer] Blue [employer] [address] [place] [address] [id number] Shreya Calvert Self - patient is the [...] Rehab 05/2024 [facility], [place]- leg [place] 05[place]20[place] [facility] [place] [facility] [place] 02/2023 [facility] [place] 08[facility]2022 [facility] Cellulitis 07/2022 [facility] [place]20[place] [facility] [place], 3 week therap y 01/2022 [facility], rehab- fell 05/2021 [facility] for cellulitis for 5 days 9 [facility] [place]18 [facility] 2015 [facility], tripped bumped head 08/2015 [place] [facility] [place]GER[place] 03/2015 [facility] - Emergency 11[facility]23/14 & 11/24 Dehydration 11/2011
== END 2025-06-29 17:49 | disposition home or self-care (01) ==
LOC: HO.MMNH3L 17:48
PROVIDERS: Visit Provider Student in an Organized Health Care Education/Training Program
DX: N39.0 Urinary tract infection, site not specified (principal); F03.93 Unspecified dementia, unspecified severity, with mood disturbance; I50.40 Unspecified combined systolic (congestive) and diastolic (congestive) heart failure
CPT/HCPCS: 81001; 87086; 87088; 87186

== ENCOUNTER 2025-06-30 05:19 | Outpatient (REF) | payer MEDICARE, MEDICAID, SELFPAY ==
[2025-06-30 05:22] LABS: MANUAL DIFF FLAG NO
--- OUTSIDE RECORDS SUMMARY | 2025-06-30 05:22 | XMS_ITS | Data Portability ---
Author Organization [facility] Pain Managem ent, PAIN OFFICE Address [address] [place] [address] Care Team Providers Care Lead Manufacturing Technician Name Role Phone ABAD GONSALES Primary Care [...] appointment has been booked. She needs a skidder driver on the day of the procedure. [...] By Organization Details Last Modified Time 06/26/2021 [id number] She was advised against bed rest lasting longer than four days and to continue activities as tolerated. [email or web address] Not available 06/30/2021 10:01:24 07/11/2021 [id number] She was advised to continue with activities as tolerated [email or web address] Not available 07/11/2021 13:35:39 10/04/2021 [id number] She was advised to continue with activities as tolerated [email or web address] Not available 10/04/2021 11:55:19 12/12/2021 [id number] She was advised to continue with activities as tolerated tmanikantan Not available 12/12/2021 12:09:37 08/21/2022 [id number] She was advised to continue with activities as tolerated tmanikantan Not available 08/21/2022 10:34:48 Reason for Referral None Reported. Problems Name Problem SNOMED Code Status Onset Date Resolution Date Notes Provider Name and Address Organization Details Recorded Time Post-herpetic neuritis [id number] Gris adams MD [address] [place] [address] , [address], [facility] [place], [address] [facility] [place] [facility] 9 14:56:27 Inflammation of joint of shoulder region 199526266 Gris adams, MD [address] , [address], [place], [address], [place] [facility] 9 09:39:04 Spinal stenosis of lumbar region 21705872 Active 2016 Alf adams MD [address] , [address], [place], [address], [place] [facility] 7 10:55:25 Lumbosacral spondylosis without myelopathy 87140050 Active 2016 Alf adams MD [address] , [address], [place], [address], [place] [facility] 7 10:55:26 Lumbosacral radiculitis 16924455 Active 2016 Alf adams MD [address] , [address], [place], [address], [place] [facility] 7 10:55:27 Displacement of lumbar intervertebral disc without myelopathy 02289489 Active 2016 Alf adams MD [address] , [address], [place], [address], [place] [facility] 7 10:55:30 Problem Notes None recorded. Procedures Surgical History Date Name Laterality Status Provider Name and Address Organization Details Recorded Time 08/21/20 22 Lumbar Epidural steroid injection under fluoroscopic guidance completed Alf Posada MD [address] , [address], [place], [address], [place] [facility] 08/21/2022 10:36:53 12/13/19 22 Lumbar Epidural steroid injection under fluoroscopic guidance completed Alf Posada MD [address] , [address], [place], [address], [place] [facility] 12/12/2021 12:09:46 10/04/20 21 Lumbar Epidural steroid injection under fluoroscopic guidance completed Alf Posada MD [address] , [address], [place], [address], [place] [facility] 10/04/2021 11:55:59 07/11/20 21 Lumbar Epidural steroid injection under fluoroscopic guidance completed Alf Posada MD [address] , [address], [place], [address], [place] [facility] 07/11/2021 13:35:45 04/11/20 21 Lumbar Epidural steroid injection under fluoroscopic guidance completed Alf Posada MD [address] , [address], [place], [address], [place] [facility] 04/11/2021 13:56:00 01/11/20 21 Lumbar Epidural steroid injection under fluoroscopic guidance completed Alf Posada MD [address] , [address], [place], [address], [place] [facility] 01/12/2021 09:57:53 09/06/20 20 Lumbar Epidural steroid injection under fluoroscopic guidance completed Alf Posada MD [address] , [address], [place], [address], [place] [facility] 09/08/2020 14:56:36 06/15/20 20 Lumbar Epidural steroid injection under fluoroscopic guidance completed Alf Posada MD [address] , [address], [place], [address], [place] [facility] 06/15/2020 14:00:13 05/23/20 20 Intra-articular shoulder steroid injection under ultrasound guidance completed Alf Posada MD [address] , [address], [place], [address], [place] [facility] 05/23/2020 15:11:49 05/11/20 19 Intra-articular shoulder steroid injection under ultrasound guidance completed Alf Posada MD [address] , [address], [place], [address], [place] [facility] 05/11/2019 09:43:25 03/31/20 19 Lumbar Epidural steroid injection under fluoroscopic guidance completed Alf Posada MD [address] , [address], [place], [address], [place] [facility] 03/31/2019 18:50:07 01/08/20 19 Fluoroscopic Guided Lumbar Facet Steroid Injections of levels completed Alf Posada MD [address] , [address], [place], [address], [place] [facility] 01/08/2019 15:03:53 09/17/20 17 Fluoroscopic Guided Lumbar Facet Steroid Injections of levels completed Alf Posada MD [address] , [address], [place], [address], [place] [facility] 09/17/2017 10:08:58 08/07/20 17 Fluoroscopic Guided Lumbar Facet Steroid Injections of levels completed Alf Posada MD [address] , [address], [place], [address], [place] [facility] 08/07/2017 10:36:11 05/08/20 17 Lumbar Epidural steroid injection under fluoroscopic guidance completed Alf Posada MD [address] [facility] , [address], [place], [address], [place] [facility] 05/08/2017 10:54:37 Joint Replacement completed Fayechris Sotoer [place] - [facility] 03/14/2017 14:36:04 Cholecystectomy completed Fayechris Sotoer [place] [facility] 03/14/2017 14:36:22 Back Surgery completed Alf Posada MD [address] , [address], [place], [address], [place] [facility] 04/02/2017 [...] completed Not Available Not Available Not Available Xochitl (So-Shee) Gold minesToLensVector Ultra Test strips TESTS DAILY FOR DM, [...] Not Available No t Available Fluzone High-Dose 7990-3231 (PF) 180 mcg/0.5 mL intramuscul ar syringe TO BE ADMINISTE RED BY PHARMACIS T FOR IMMUNIZAT ION 08/07 completed Not Available Not Available Not Available Fluzone High-Dose 7141-7454 (PF) 180 mcg/0.5 mL intramuscul ar syringe [...] verbal numeric rating [Score] - Reported Systolic And Diastolic Provider Name and Address Organization Details Last Updated DateTime 1 160.02 cm 34.7 kg/m2 00576.1 g 58 /min 98 % 98 % 6 144/56 mm[Hg] Alf adams MD [address] [facility] , [address], [place], [address], [place] [facility] 1 [...] verbal numeric rating [Score] - Reported Systolic And Diastolic Provider Name and Address Organization Details Last Updated DateTime 1 160.02 cm 66 /min 97 % 97 % 10 126/53 mm[Hg] Ebony adams [place] - [facility] 1 10:58:34 Social History Question Answer Notes LastModified by Organizat ion Details LastModified Time Tobacco Smoking Status Former Smoker Quit x 20 years Not Available [employer] 07/22/2020 03:16:10 Which Illicit Or Recreational Drugs Have You Used? NO [id number] Information not available 07/22/2020 Education 12 With Some College Information not available 03/14/2017 Live Alone Or With Others? Alone Information not available 03/14/2017 Marital Status Informatio n not available 03/14/2017 What Was The Date Of Your Most Recent Tobacco Screening? 03/31/2019 [id number] Information not available 07/22/2020 How Many Years Have You Smoked Tobacco? 20 [id number] Information not available 07/22/2020 Sex: Unknown Functional Status Question Answer Note LastModified by Organization D etails LastModified Time What is your level of alcohol consumption? Moderate [id number] Information not available 07/22/2020 Are you currently employed? No [id number] Information not available 07/22/2020 Mental Status None recorded. Family History Nothing Reported. Medical History Condition Response Coronary Artery Disease Y Arthritis Y High Cholesterol Y Hypertension Y Asthma Y Gynecological HistoryNo gynecological history recorded. Obstetrics History GPAL:G 0 P 0 0 0 0 Past Encounters Encounter ID Performer Location Encounter Start Date Encounter Closed Date Diagnosis/Indication Diagnosis SNOMED-CT Code Diagnosis ICD10 Code Diagnosis IMO Codes Diagnosis Note [id number] Alf Posada MD PAIN OFFICE [address] [place] [address] 03/14/2017 13:22:16 03/14/2017 15:44:04 Spinal stenosis of lumbar region 19715242 M48.06 Lumbosacra l spondylosis without myelopathy 97245454 M47.817 Lumbosacra l radiculitis 66762251 M54.17 Displaceme nt of lumbar intervertebral disc without myelopathy 87615694 M51.26 [id number] Alf Posada MD PAIN OFFICE [address] [place] [address] 05/08/2017 09:51:37 05/09/2017 14:08:37 Spinal stenosis of lumbar region 63019925 M48.06 Lumbosacra l spondylosis without myelopathy 94489318 M47.817 Lumbosacra l radiculitis 27217554 M54.17 Displaceme nt of lumbar intervertebral disc without myelopathy 29226811 M51.26 [id number] Alf Posada MD PAIN OFFICE [address] [place] [address] 06/14/2017 10:36:32 06/17/2017 09:50:43 Spinal stenosis of lumbar region 55921260 M48.06 Lumbosacra l spondylosis without myelopathy 21922572 M47.817 Lumbosacra l radiculitis 24298094 M54.17 Displaceme nt of lumbar intervertebral disc without myelopathy 60674832 M51.26 [id number] Alf Posada MD PAIN OFFICE [address] [place] [address] 08/07/2017 10:01:00 08/07/2017 15:19:24 Spinal stenosis of lumbar region 25925841 M48.062 Lumbosacra l spondylosis without myelopathy 60013271 M47.817 Lumbosacra l radiculitis 46965362 M54.17 Displaceme nt of lumbar intervertebral disc without myelopathy 23475645 M51.26 [id number] Alf Posada MD PAIN OFFICE [address] [address] 09/05/2017 10:11:57 09/05/2017 19:46:07 Spinal stenosis of lumbar region 75822169 M48.062 Lumbosacra l spondylosis without myelopathy 63992478 M47.817 Lumbosacra l radiculitis 08876005 M54.17 Displaceme nt of lumbar intervertebral disc without myelopathy 97518313 M51.26 [id number] Alf Posada MD PAIN OFFICE [address] [place] [address] 09/17/2017 09:13:54 09/19/2017 09:09:31 Spinal stenosis of lumbar region 73688399 M48.062 Lumbosacra l spondylosis without myelopathy 01679927 M47.817 Lumbosacra l radiculitis 54953264 M54.17 Displaceme nt of lumbar intervertebral disc without myelopathy 33944170 M51.26 [id number] Alf Posada MD [facility] PAIN OFFICE [address] [place] [address] 12/25/2018 11:24:23 12/25/2018 16:12:18 Spinal stenosis of lumbar region 27810124 M48.061 Lumbosacra l spondylosis without myelopathy 09764976 M47.817 Lumbosacra l radiculitis 27725147 M54.17 Displaceme nt of lumbar intervertebral disc without myelopathy 48022127 M51.26 [id number] Alf Posada MD [facility] PAIN OFFICE [address] [address] 01/07/2019 09:10:35 01/08/2019 15:11:02 Spinal stenosis of lumbar region 81547615 M48.062 Lumbosacra l spondylosis without myelopathy 76673352 M47.817 Lumbosacra l radiculitis 02511750 M54.17 Displaceme nt of lumbar intervertebral disc without myelopathy 51899055 M51.26 [id number] Alf Posada MD PAIN OFFICE [address] [address] 02/04/2019 14:13:14 02/04/2019 16:10:53 Post-herpetic neuritis 970070897 B02.29 Spinal linda nosis of lumbar region 16974848 M48.061 Lumbosacra l spondylosis without myelopathy 86439863 M47.817 Lumbosacra l radiculitis 23840541 M54.17 Displaceme nt of lumbar intervertebral disc without myelopathy 40606056 M51.26 [id number] Alf Posada MD PAIN OFFICE [address] [address] 03/31/2019 09:49:03 03/31/2019 18:56:55 Spinal stenosis of lumbar region 53390597 M48.061 Lumbosacra l spondylosis without myelopathy 23589000 M47.817 Lumbosacra l radiculitis 84442741 M54.17 Displaceme nt of lumbar intervertebral disc without myelopathy 19584202 M51.26 [id number] Alf Posada MD PAIN OFFICE [address] [address] 05/11/2019 08:51:59 05/11/2019 09:45:44 Inflammation of joint of shoulder region 222181720 M13.819 Spinal linda nosis of lumbar region 29908356 M48.061 [id number] Alf Posada MD PAIN OFFICE [address] [address] 12/14/2019 13:40:03 12/14/2019 16:14:01 Spinal stenosis of lumbar region 59323343 M48.061 Lumbosacra l spondylosis without myelopathy 75254497 M47.817 Lumbosacra l radiculitis 97021374 M54.17 Displaceme nt of lumbar intervertebral disc without myelopathy 39536993 M51.26 [id number] Alf Posada MD PAIN OFFICE [address] [facility] [place] [address] 02/12/2020 11:36:11 02/15/2020 12:09:29 Spinal stenosis of lumbar region 24066409 M48.061 Lumbosacra l spondylosis without myelopathy 17015712 M47.817 Lumbosacra l radiculitis 56760728 M54.17 Displaceme nt of lumbar intervertebral disc without myelopathy 67177029 M51.26 [id number] Alf Posada MD PAIN OFFICE [address] [facility] [place] [address] 05/13/2020 08:29:14 05/13/2020 09:22:37 Inflammation of joint of shoulder region 635536577 M13.819 Spinal linda nosis of lumbar region 97519508 M48.061 [id number] Alf Posada MD PAIN OFFICE [address] [facility] [place] [address] 05/23/2020 12:46:33 05/23/2020 15:14:52 Inflammation of joint of shoulder region 123769891 M13.819 Spinal linda nosis of lumbar region 52256762 M48.061 [id number] Alf Posada MD PAIN OFFICE [address] [facility] [place] [address] 06/15/2020 10:54:32 06/15/2020 14:04:50 Inflammation of joint of shoulder region 476667888 M13.819 Spinal linda nosis of lumbar region 63177770 M48.061 Lumbosacra l spondylosis without myelopathy 86906407 M47.817 Lumbosacra l radiculitis 43419002 M54.17 Displaceme nt of lumbar intervertebral disc without myelopathy 80421902 M51.26 [id number] Alf Posada MD [facility] PAIN OFFICE [address] [employer] [address] [facility] [place] [address] 07/13/2020 08:30:09 07/13/2020 11:05:07 Inflammation of joint of shoulder region 560847617 M13.819 Spinal linda nosis of lumbar region 76176865 M48.061 [id number] Alf Posada MD [facility] PAIN OFFICE [address] [employer] [address] [facility] [place] [address] 09/06/2020 10:30:56 09/08/2020 15:55:16 Inflammation of joint of shoulder region 535773485 M13.819 Spinal linda nosis of lumbar region 95709635 M48.061 Lumbosacra l spondylosis without myelopathy 91464872 M47.817 Lumbosacra l radiculitis 13203358 M54.17 Displaceme nt of lumbar intervertebral disc without myelopathy 40107686 M51.26 [id number] Alf Posada MD [facility] PAIN OFFICE [address] [facility] [place] [address] 11/07/2020 08:59:33 11/07/2020 09:55:18 Spinal stenosis of lumbar region 32829833 M48.061 Lumbosacra l spondylosis without myelopathy 77478208 M47.817 Lumbosacra l radiculitis 89790242 M54.17 Displaceme nt of lumbar intervertebral disc without myelopathy 15256313 M51.26 [id number] Alf Posada MD [facility] PAIN OFFICE [address] [employer] [address] [facility] [place] [address] 01/10/2021 13:47:25 01/12/2021 10:00:57 Inflammation of joint of shoulder region 148511813 M13.819 Spinal linda nosis of lumbar region 89075549 M48.061 Lumbosacra l spondylosis without myelopathy 58037637 M47.817 Lumbosacra l radiculitis 52039084 M54.17 Displaceme nt of lumbar intervertebral disc without myelopathy 63943322 M51.26 [id number] Alf Posada MD [facility] PAIN OFFICE [address] [place] [address] 02/16/2021 08:44:41 02/16/2021 10:52:14 Spinal stenosis of lumbar region 33761049 M48.061 Lumbosacra l spondylosis without myelopathy 71816367 M47.817 Lumbosacra l radiculitis 57196514 M54.17 Displaceme nt of lumbar intervertebral disc without myelopathy 07216341 M51.26 [id number] Alf Posada MD [facility] PAIN OFFICE [address] [place] [address] 04/11/2021 13:21:59 04/11/2021 14:01:08 Spinal stenosis of lumbar region 11917042 M48.061 Inflammati on of joint of shoulder region 910159224 M13.819 Lumbosacra l spondylosis without myelopathy 70540874 M47.817 Lumbosacra l radiculitis 66324981 M54.17 Displaceme nt of lumbar intervertebral disc without myelopathy 58126839 M51.26 [id number] Alf Posada MD [facility] PAIN OFFICE [address] [place] [address] 06/26/2021 15:22:32 06/30/2021 10:03:11 Spinal stenosis of lumbar region 18024589 M48.061 Lumbosacra l spondylosis without myelopathy 13355718 M47.817 Lumbosacra l radiculitis 24734502 M54.17 Displaceme nt of lumbar intervertebral disc without myelopathy 69723315 M51.26 [id number] Alf Posada MD [facility] PAIN OFFICE [address] [place] [address] 07/11/2021 12:54:52 07/11/2021 13:38:15 Spinal stenosis of lumbar region 30690630 M48.061 Inflammati on of joint of shoulder region 781568092 M13.819 Lumbosacra l spondylosis without myelopathy 24675307 M47.817 Lumbosacra l radiculitis 01695688 M54.17 Displaceme nt of lumbar intervertebral disc without myelopathy 46422789 M51.26 [id number] Alf Posada MD PAIN OFFICE [address] [facility] [place] [address] 10/04/2021 10:46:49 10/04/2021 12:00:47 Spinal stenosis of lumbar region 58122247 M48.061 Inflammati on of joint of shoulder region 273396399 M13.819 Lumbosacra l spondylosis without myelopathy 42183246 M47.817 Lumbosacra l radiculitis 53925774 M54.17 Displaceme nt of lumbar intervertebral disc without myelopathy 15861455 M51.26 [id number] Alf Posada MD PAIN OFFICE [address] [facility] [place] [address] 12/12/2021 11:17:23 12/12/2021 14:28:00 Spinal stenosis of lumbar region 43185952 M48.061 Inflammati on of joint of shoulder region 522280842 M13.819 Lumbosacra l spondylosis without myelopathy 63616828 M47.817 Lumbosacra l radiculitis 29179219 M54.17 Displaceme nt of lumbar intervertebral disc without myelopathy 66965805 M51.26 [id number] Alf Posada MD PAIN OFFICE [address] [facility] [place] [address] 08/21/2022 10:05:44 08/21/2022 11:05:40 Spinal stenosis of lumbar region 30430187 M48.061 Inflammati on of joint of shoulder region 786030832 M13.819 Lumbosacra l spondylosis without myelopathy 22258224 M47.817 Lumbosacra l radiculitis 40383222 M54.17 Displaceme nt of lumbar intervertebral disc without myelopathy 39557844 M51.26 Degenerati on of lumbar intervertebral disc 84620885 M51.36 Health Concerns Section Related Observation LastModified by Organization Detai ls LastModified Time None Recorded Concern Status LastModified by Organization Details LastModified Time None Recorded Advance Directives Directive None Recorded Payers Insurance Date Sequence Insurance Name Policy Number Policy Anders Covered Member ID Anders Member ID Guarantor Name 12/15/2022 1 [place] [employer] SERVICES Shreya M Gravel [id number] Shreya Gravel 12/15/2022 2 [place] [id number] Shreya Gravel [id number] Shreya Gravel Notes Date Note Type [...] or bowel incontinence. Alf Posada MD [address] [facility] , [place] [address], [place], [address], [place] [facility] 07/10/2021 08:52:57 07/11/2021 text/html She is here for a lumbar epidural steroid injection under fluoroscopic guidance. Alf Posada MD [address] [facility] , [place] [address], [place], [address], [place] [facility] 07/12/2021 09:01:37 10/04/2021 text/html She is here for a lumbar epidural steroid injection under fluoroscopic guidance. Alf Posada MD [address] [facility] , [facility] [address], [place], [address], [place] [facility] 10/04/2021 12:48:56 12/12/2021 text/html She is here for a lumbar epidural steroid injection under fluoroscopic guidance. Alf Posada MD [address] [facility] , [place] [address], [place], [address], [place] [facility] 12/12/2021 16:13:18 08/21/2022 text/html She is here for a lumbar epidural steroid injection under fluoroscopic guidance. She has stopped eliquis and pletal as instructed for the procedure. Alf Posada MD [address] , [address] [place], [address], JESSE Bonner [facility] 08/22/2022 08:44:58 OBGyn Episode No OBEpisode recorded.
--- OUTSIDE RECORDS SUMMARY | 2025-06-30 05:22 | XMS_ITS | Clinical Summary ---
Author Organization [address] [facility] Address [address] [place] [address] Phone Care Team Providers Care Career Development Engineer Name Role Phone Rex Bass MD Primary Care Provider [phone] Allergies Active Allergy Reactions Criticality Noted Date [...] Problem Noted Date Diagnosed Date Atrial flutter ([facility] V24, [facility] V28) 2021 Overview (08/28/2024): Last Assessment & [...] HISTORICAL CHOLECYSTECTOMY OTHER SURGICAL HISTORY 12/14/2013 PROCEDURE: ME EGD PARTIAL/COMPL ESOPHAGOGASTRIC FUNDOPLASTY COLONOSCOPY 02/09/2016 PROCEDURE: HISTORICAL COLONOSCOPY OTHER SURGICAL HISTORY 05/14/2013 PROCEDURE: ME ECHO TRANSTHORAC R-T 2D W/WO M-MODE REC COMP OTHER SURGICAL HISTORY 03/13/2013 PROCEDURE: ME CABG W/ARTERIAL GRAFT THREE ARTERIAL GRAFTS OTHER SURGICAL HISTORY 12/06/2008 PROCEDURE: ME EGD PARTIAL/COMPL ESOPHAGOGASTRIC FUNDOPLASTY CARPAL TUNNEL RELEASE PROCEDURE: ME NEUROPLASTY &/TRANSPOS MEDIAN NRV CARPAL TUNNE; COMMENT: [...] CMS/HCC V28) DX:Chronic obstructive pulm onary disease ([facility]) Chronic pain DX:Chronic pain Compression fracture of L1 l umbar vertebra ([facility] V24, [facility] V28) DX:Compression fra cture of L1 lumbar vertebra ([facility]); COMMENT: and t12 vertebra Degeneration macular DX:Degenera tion macular Depression DX:Depression Diabetes type 2, controlled ([facility] [place], [facility] V28) DX:Diabetes type 2, controll ed ([facility]) Diverticulitis DX:Diverticuliti s Elevated LFTs DX:Elevated LFTs [...] 2 obesi ty Osteoporosis DX:Osteoporosis Primary hyperparathyroidism ([facility] [place] DX:Primary hyperparathyroidi sm ([facility]) Recurrent falls DX:Recurrent fal ls Restless legs [...] patient's age to complete this topic Insurance [facility] [place]ICAID - [place] MEDICARE Advance Directives Documents on File Type Date Recorded Patient Recruiter Coordinator Expl anation Health Care Decision (hx) 09/26/2023 AD FARNSWORTH DIRECTIVE Health Care Decision (hx) 05/09/2021 AD FARNSWORTH DIRECTIVE Health Care Decision (hx) 05/09/2021 AD FARNSWORTH DIRECTIVE Care Teams Career Development Engineer Relationship Specialty Start Date End Date Rex Bass MD [address] [place] [address], [phone] PCP - General 04/23/24
--- OUTSIDE RECORDS SUMMARY | 2025-06-30 05:22 | XMS_ITS | Data Portability ---
Author Organization [facility], Main Office Address [address], [address] [place] [address] Care Team Providers Care Sprayer Insecticide Name Role Phone DARRIN STYLES 3RD FLOOR OTHER Assessment Encounter Date Assessment Date Assessment LastModified by Organization Details LastModified Time 01/13/2025 01/13/2025 01/11/25 Na 139, K 3.9, [...] and Address Organization Details Recorded Time Cystitis 35585321 Active 2023 FRIEDA ANDERSON [address], [address], [place], [address], [facility] [employer] 4 14:00:02 Falls 170248037 Active 2023 FRIEDA ANDERSON [address], [address], [place], [address], [facility] 4 14:00:38 Pain of right wrist 0687038924288 00 Active 2023 FRIEDA ANDERSON [address], [place], [address], [facility] 4 14:00:56 Peripheral venous insufficien cy 77311921 Active 2023 CARLTON MINA, SNAILER [address], [address], [place], [address], [place] [facility] 4 14:01:26 Chronic diastolic heart failure 263906188 Active 2023 CARLTON MINA, SNAILER [address], [address], [place], [address], [place] [facility] 4 14:01:46 Type 2 diabetes mellitus 02792524 Active 2023 CARLTON MINA, [facility] [address], [address], [place], [address], [place] [facility] 4 14:01:55 Paroxysmal atrial flutter 641913935 Active 2023 MP ANDERSONP [address], [address], [place], [address], [place] [facility] 4 14:02:21 Restless legs 61366605 Active 2023 CARLTON MINA, SNAILER [address], [place], [address], [place] [facility] 4 14:02:38 Chronic obstructive pulmonary disease 18104785 Active 2023 FRIEDA ANDERSON [address], [place], [address], [place] [facility] 4 14:02:49 Anemia of chronic disease 033456716 Active 2023 MP ANDERSONP [address], [place], [address], [place] [facility] 4 14:02:59 Mixed anxiety and depressive disorder 363317859 Active 2023 CARLTON MINA, [facility] [address], [address], [place], [address], [place] - [facility] 4 14:17:43 Chronic kidney disease 497182447 Active 2023 CARLTON MINA, SNAILER [address], [address], [place], [address], [place] [facility] 4 14:19:41 Hyperlipide nena 12582324 Active 2023 FRIEDA ANDERSON [address], [place], [address], [facility] 4 14:26:52 Gastroesoph ageal reflux disease 837013841 Active 2023 FRIEDA ANDERSON [address], [address], [place], [address], [facility] 4 14:27:49 Chronic back pain 671100089 Active 2023 FRIEDA ANDERSON [address], [address], [place], [address], [facility] 4 14:40:47 Vitamin D deficiency 75858301 Active 2023 FRIEDA ANDERSON [address], [address], [place], [address], [facility] 4 19:41:46 Bradycardia 31141721 Active 2023 FRIEDA ANDERSON [address], [place], [address], [facility] 4 19:44:32 Asthenia 65406849 Active 2023 FRIEDA ANDERSON [address], [place], [address], [facility] 4 19:53:05 Bleeding from nose 931991863 Active 2023 FRIEDA ANDERSON [address], [address], [place], [address], [facility] 4 15:36:07 Osteomyelit is 73201127 Active 2023 Naomi Todd MD [address], [address], [place], [address], [facility] 4 17:53:51 Headache 43498430 Active 2023 WISAM SILVA NP [address], [address], [place], [address], [facility] 4 09:49:14 Essential hypertensio n 90155969 Active 2024 Rex Bass MD [address] [place] [address], [facility] [address], [place], [address], [facility] 5 09:46:16 Problem Notes None recorded. Medical Equipment None Reported. Allergies Allergen ID Allergen Name Allergen Category Reaction Reaction Severity Criticality Documentation Date Start Date Code Code System Note Provider Name and Address Organization Details Recorded Time 74632 lisinopri l medicatio n Not available Not available Not available 10/22/2023 33764 RxNorm Naomi Todd MD [address] [place] [address], [facility] [address], [place], [address], [facility] 4 17:53:46 Medications Name Sig Start Date Stop Date Status Note LastModified by Organization Details LastModified Time tramadol 50 mg tablet 50 mg po qhs scheduled 025 active Not Available Not Available Not Avai lable oxycodone 5 mg tablet Take 1 tablet every 6 hours by oral route as needed. 024 active Not Available Not Available Not Avai lable Vitals Date Recorded Body height Systolic And Diastolic Provider Name and Address Organization Details Last Updated DateTime 11/25/2024 165.1 cm 129/73 mm[Hg] Rex Bass MD [address] [place] [address], [address], [place], [address], [facility] 11/25/2024 11:53:24 Date Recorded Body height Body temperature Heart rate Respiratory rate Systolic And Diastolic Provider Name and Address Organization Details Last Updated DateTime 5 165.1 cm 97.4 [degF] 84 /min 18 /min 142/70 mm[Hg] Rex Bass MD [address] [place] [address], [address], [place], [address], [facility] 5 09:39:14 Date Recorded Body height Body temperature Respiratory rate Oxygen saturation Oxygen saturation in Arterial blood by Pulse oximetry Systolic And Diastolic Provider Name and Address Organization Details Last Updated DateTime 5 165.1 cm 97.9 [degF] 18 /min 97 % 97 % 130/70 mm[Hg] FRIEDA ANDERSON [address], [address], [place], [address], [facility] 18:58:17 Social History Question Answer Notes LastModified by Organizat ion Details LastModified Time Tobacco Smoking Status Former Smoker quit 30 yrs ago FRIEDA ANDERSON [address], [address], [place], [address], [facility] 10/24/2023 14:39:11 Do You Have An Advance Directive? Yes Information not available 10/24/2023 What Is Your Level Of Caffeine Consumption? Occasional Information not available 10/24/2023 What Is Your Code Status? DNR/DNI Information not available 10/24/2023 [facility], Had Been Living At [facility] Information not available 04/13/2024 Legal Guardian? No Informati on not available 10/24/2023 Do You Have A Medical Power Of Search Engine Optimization Strategist? Yes Information not available 10/24/2023 What Was [...] Has Tobacco Cessation Counseling Been Provided? No N/a As Pt No Longer Smokes Information not available 10/24/2023 Sex: Unknown Functional [...] is your level of alcohol consumption? Moderate glass of wine daily Information not available 10/24/2023 Mental Status None recorded. Family History Nothing Reported Notes:n/c Medical History No medical history recorded. Gynecological HistoryNo gynecological history recorded. Obstetrics History GPAL:G 0 P 0 0 0 0 Immunizations Vaccine Type Date Status Note Provider Nam e and Address Organization Details Recorded Time Tdap 2 completed Flor Luna [facility] 12/27/2023 11:11:29 Pneumococcal conjugate PCV 13 7 completed Flor Luna [facility] 12/27/2023 11:11:41 Influenza, adjuvanted, quadrivalent, PF 3 completed Flor Luna [facility] 12/27/2023 11:11:59 COVID-19, mRNA, LNP-S, bivalent, PF, 30 mcg/0.3 mL dose 1 completed Flor Luna [facility] 12/27/2023 11:12:12 COVID-19, mRNA, LNP-S, bivalent, PF, 30 mcg/0.3 mL dose 1 completed Florgwen Luna [facility] 12/27/2023 11:12:20 COVID-19, mRNA, LNP-S, bivalent, PF, 30 mcg/0.3 mL dose 1 completed Flor Luna [facility] 12/27/2023 11:12:29 COVID-19, mRNA, LNP-S, bivalent, PF, 30 mcg/0.3 mL dose 2 completed Florgwen Luna [facility] 12/27/2023 11:12:48 Past Encounters Encounter ID Performer Location Encounter Start Date Encounter Closed Date Diagnosis/Indication Diagnosis SNOMED-CT Code Diagnosis ICD10 Code Diagnosis IMO Codes Diagnosis Note [id number] FRIEDA ANDERSON [address] [place] [address] [place] [address] 10/23/2023 08:21:08 10/28/2023 15:39:59 Cystitis 88665643 N30.90 With MDROInitia lly with Vanco and cefepime however cultures growing MDRO Klebsiella Started meropenem 1 g q12 for 7 days.start ed 10/19 for 7 full days of treatment to end 10/26.probi otic added Falls 710377791 R29.6 likely multifacto rial from neuropathy , frailty, arthritis and LE edemaCT negative for any fractures. CT Head/Brain W/O Contrast negativeIn itiated safety precaution per facility protocolPT /OT eval and tx. Peripheral venous insufficiency 14709376 I87.2 Venous insufficie ncy of both lower extremitie sDoppler LLE no DVT, symmetric erythema without increased warmth or tenderness , appears similar to previous picture taken, low suspicion for superimpos ed cellulitis Chronic di astolic heart failure 491992183 I50.32 preserved EFeuvolemi ctorsemide held in acute care d/t hypotensio n and bradycardi c 50'smonito r BP and need to restartmon itor weights Chronic ob structive pulmonary disease 30383160 J44.9 Albuterol Sulfate Nebulizati on Solution (2.5 MG/3ML) Q6 prnAdvair Zmycjc647- 50 mcg Q12 Restless legs 06976995 G 25.81 ROPINIRole HCl Tablet 2 MG BID Type 2 jr betes mellitus 03429335 E11.21 continue monitor glucose,Li spro SSI coverageGa bapentin Capsule 300 MG at bedtime for neuropathy pain.trama dol 25 mg q12 prn Paroxysmal atrial flutter 630336231 I48.92 not on anticoagAm iodarone HCl Tablet 200 MG dailymonit or HR Mixed anxi ety and depressive disorder 590487588 F41.8 Escitalopr am Oxalate Tablet 30 mg dailymonit or for mood and behavorial changes. Anemia of chronic disease 264332408 D63.8 Ferrous Sulfate Tablet 325 dailymonit or labs prn Hyperlipidemia 98169055 E78.5 Atorvastat in 20 mg dailymonit or labs Gastroesop hageal reflux disease 270067302 K21.9 Pantoprazo le40 mg dailymonit or for gi upset. Chronic back pain 519265 002 G89.29 tramadol 25 mg Q12 prngabapen tin 300 mg at hs Vitamin D deficiency 347 09193 E55.9 Cholecalci ferol 2000 UNIT daily Pain of right wrist 3169 971560 15612 M25.531 x-ray was ordered which was negative.P T/OT eval and tx Bradycardia 57068614 R00 .1 in acute care HR as low as 40snormal MI/QRS/QTc prolongati on..T nonspecifi c isolated T wave inversions on single lead V2 were present on recent study from 07/19/2023 . No evidence of acute ischemic changes. Chronic ki dney disease 385355947 N18.9 Renal function is at baselinemo nitor labsavoid nephrotoxi c drugs Asthenia 57997534 R53.1 hx of multiple fallsambul ates with walkerPT/O T eval and treat [id number] Naomi Todd MD [address] [place] [address] 10/24/2023 16:17:28 11/06/2023 11:12:59 Cystitis 45078194 N30.00 Continue meropenem 1 g q 12 hrs to complete 7 d course on 10/26.Monit or for recurrent sxs. Falls 222295577 R29.6 Likely multifacto rial from neuropathy , frailty, arthritis and LE edemaVery deconditio christoph.Needs PT/OT for strengthen ing, balance, gait training, safety and function.C ontinue fall precaution s.Monitor for safety. Peripheral venous insufficiency 11842925 I87.2 Almost at baseline per pt.Continu e local care and elevation. Chronic di astolic heart failure 925079769 I50.32 Appears euvolemic. Monitor for need for diuretics. Monitor resp. status, fluid status, wts and labs. Chronic ob structive pulmonary disease 11778146 J43.8 No current sxs.Contin ue Advair 250/50 BID and albuterol nebs q 6 hrs prnMonitor resp status. Restless legs 89240657 G 25.81 Continue ropinirole 2 mg BIDMonitor sxs. Type 2 jr betes mellitus 20286016 E11.21 Diet controlled .Sugar <150 yest, not checked previously .Continue gabapentin 300 MG qhs and tramadol q 12 hrs prn for neuropathy Monitor fingerstic ks BID x 1 wk with SSI, d/c if not needing coverage. Paroxysmal atrial flutter 288319045 I48.92 Rate in good control on amiodarone 200 mg qdNot on AC due to age and fall riskMonito r HR Mixed anxi ety and depressive disorder 208227697 F41.8 Mood down today due to concerns about living situation. Continue escitalopr am 30 mg qdMonitor mood.Consu lt psych prn Anemia of chronic disease 265443091 D63.8 Continue FeSO4 325 mg qd with vitamin C 250 mg qd for absorption .Monitor labs Hyperlipidemia 82013091 E78.49 Continue atorvastat in 20 mg qdMonitor labs yearly Gastroesop hageal reflux disease 725604284 K21.9 No current sxs.Contin ue pantoprazo le 40 mg qdMonitor sxs Chronic ki dney disease 836887147 N18.9 In hx, but renal function WNL yest.Cindy nue to avoid nephrotoxi c meds as able.Monit or labs.Renal consult prn. Chronic back pain 479609 002 G89.29 Continue tramadol 25 mg q 12 hrs prn and gabapentin 300 mg qhsMonitor sxs. [id number] FRIEDA ANDERSON [address] [place] [address] 10/29/2023 07:42:54 11/01/2023 08:26:34 Cystitis 36958714 N30.90 With MDROInitia lly with Vanco and cefepime however cultures growing MDRO Klebsiella Started meropenem 1 g q12 for 7 days.start ed 10/19 for 7 full days of treatment to end 10/26.- completed denies any dysuriapro biotic added Falls 830866985 R29.6 continue to work with PT/OT for strengthen inglikely multifacto rial from neuropathy , frailty, arthritis and LE edemaCT negative for any fractures. CT Head/Brain W/O Contrast negativeIn itiated safety precaution per facility protocol Peripheral venous insufficiency 78035553 I87.2 BLE edema left greater than right Venous insufficie ncy of both lower extremitie sDoppler LLE no DVT, symmetric erythema without increased warmth or tenderness , appears similar to previous picture taken, low suspicion for superimpos ed cellulitis Chronic di astolic heart failure 318643244 I50.32 preserved EFeuvolemi ctorsemide held in acute care d/t hypotensio n and bradycardi c 50'smonito r BP and need to restartmon itor weights Chronic ob structive pulmonary disease 50736938 J44.9 Albuterol Sulfate Nebulizati on Solution (2.5 MG/3ML) Q6 prnAdvair Epjsch323- 50 mcg Q12 Restless legs 52748271 G 25.81 ROPINIRole HCl Tablet 2 MG BID Type 2 jr betes mellitus 63490654 E11.21 continue monitor glucose,Li spro SSI coverageGa bapentin Capsule 300 MG at bedtime for neuropathy pain.trama dol 25 mg q12 prn Paroxysmal atrial flutter 053366190 I48.92 not on anticoagAm iodarone HCl Tablet 200 MG dailymonit or HR Mixed anxi ety and depressive disorder 353336323 F41.8 Escitalopr am Oxalate Tablet 30 mg dailymonit or for mood and behavorial changes. Anemia of chronic disease 132024732 D63.8 Ferrous Sulfate Tablet 325 dailymonit or labs prn Hyperlipidemia 98276756 E78.5 Atorvastat in 20 mg dailymonit or labs Gastroesop hageal reflux disease 624137961 K21.9 Pantoprazo le40 mg dailymonit or for gi upset. Chronic back pain 290270 002 G89.29 tramadol 25 mg Q12 prngabapen tin 300 mg at hs Vitamin D deficiency 347 76340 E55.9 Cholecalci ferol 2000 UNIT daily Pain of right wrist 3169 316596 99828 M25.531 x-ray was ordered which was negative.P T/OT eval and tx Bradycardia 46247540 R00 .1 in acute care HR as low as 40snormal MI/QRS/QTc prolongati on..T nonspecifi c isolated T wave inversions on single lead V2 were present on recent study from 07/19/2023 . No evidence of acute ischemic changes. Chronic ki dney disease 540096146 N18.9 Renal function is at baselinemo nitor labsavoid nephrotoxi c drugs Asthenia 02041151 R53.1 hx of multiple fallsambul ates with walkerPT/O T eval and treat [id number] FRIEDA ANDERSON [address] [place] [address] rd [place] [address] 11/01/2023 08:04:11 11/06/2023 11:37:03 Cystitis 42129620 N30.90 With MDROInitia lly with Vanco and cefepime however cultures growing MDRO Klebsiella Started meropenem 1 g q12 for 7 days.start ed 10/19 for 7 full days of treatment to end 10/26.- completed denies any dysuriapro biotic added Pruritus of vagina 35544 003 L29.3 Reports vaginal itchiness for over [...] BID for 7 days and re eval. [id number] FRIEDA ANDERSON [address] [address] 11/04/2023 12:13:42 11/06/2023 12:50:39 Falls 473005164 R29.6 see/HPiwit nessed fallwith injury/lac eration above left eye.no LOC Facial laceration 501881 008 S01.81XA above left eye/about 2 cm in lengthblee ding controlled , wrapped in gauze dressing. [id number] FRIEDA ANDERSON [address] [address] 11/06/2023 09:19:58 11/13/2023 12:17:34 Falls 643484296 R29.6 see/HPiwit nessed fallwith injury/lac eration above left eye.no LOCContinu e PT/OT Facial laceration 114822 008 S01.81XA above left eye/about 2 cm in lengthappe ars to be about 10-12 small dissolvabl e sutures in placedenie s any visual changes or headache.n ursing to monitor healing Pruritus of vagina 68158 003 L29.3 Reports vaginal itchiness for over [...] days and re eval. Chronic back pain 705109 002 G89.29 denies any new discomfort post falltramad ol 25 mg Q12 prngabapen tin 300 mg at hs Asthenia 55126462 R53.1 hx of multiple fallsambul ates with walkerPT/O T continue [id number] FRIEDA ANDERSON [address] [address] 11/08/2023 13:54:21 11/13/2023 13:10:32 Falls 703675108 R29.6 on 11/04/23wit nessed fallwith injury/lac eration above left eye.no LOCContinu e PT/OT Facial laceration 645145 008 S01.81XA above left eye/about 2 cm in lengthappe ars to be about 10-12 small di-solvabl e sutures in placedenie s any visual changes or headache.n ursing to monitor healing Pruritus of vagina 33672 003 L29.3 Reports vaginal itchiness for over [...] assure med is applied. Chronic back pain 465432 002 G89.29 denies any new discomfort post falltramad ol 25 mg Q12 prngabapen tin 300 mg at hs Asthenia 18460928 R53.1 hx of multiple fallsambul ates with walkerPT/O T continue [id number] FRIEDA ANDERSON [address] [address] 11/13/2023 10:59:21 11/15/2023 09:29:54 Falls 718361855 R29.6 on 11/04/23wit nessed fallwith injury/lac eration above left eye.no LOCContinu e PT/OT Facial laceration 825247 008 S01.81XA healingabo ve left eye/about 2 cm in lengthappe ars to be about 10-12 small di-solvabl e sutures in placedenie s any visual changes or headache.n ursing to monitor healing Pruritus of vagina 11180 003 L29.3 improving, continues with triamcinol one topical cream BID Chronic back pain 558210 002 G89.29 denies any new discomfort post falltramad ol 25 mg Q12 prngabapen tin 300 mg at hs Asthenia 03104833 R53.1 hx of multiple fallsambul ates with walkerPT/O T continues [id number] FRIEDA ANDERSON [address] [address] 11/18/2023 07:58:48 11/21/2023 13:26:13 Falls 628058660 R29.6 on 11/04/23wit nessed fallwith injury/lac eration above left eye.no LOCContinu e PT/OT Facial laceration 436308 008 S0.81XA healingabo ve left eye/about 2 cm in lengthappe ars to be about 10-12 small di-solvabl e sutures in placedenie s any visual changes or headache.n ursing to monitor healing Pruritus of vagina 16965 003 L29.3 improving, continues with triamcinol one topical cream BID Chronic back pain 205731 002 G89.29 denies any new discomfort post falltramad ol 25 mg Q12 prngabapen tin 300 mg at hs Asthenia 01348040 R53.1 hx of multiple fallsambul ates with walkerPT/O T continues [id number] FRIEDA ANDERSON [address] [address] 11/21/2023 13:49:57 11/25/2023 12:31:48 Falls 023741174 R29.6 on 11/04/23wit nessed fallwith injury/lac eration above left eye.no LOCContinu e PT/OT Facial laceration 045584 008 S01.81XA 11/04 s/p fall for laceration above left eye.healin g no s/sx of infectiona rolan left eye/about 2 cm in lengthappe ars to be about 10-12 small di-solvabl e sutures in placedenie s any visual changes or headache.n ursing to monitor healing Pruritus of vagina 66120 003 L29.3 improving, continues with triamcinol one topical cream BID Chronic back pain 703309 002 G89.29 denies any new discomfort post falltramad ol 25 mg Q12 prngabapen tin 300 mg at hs Asthenia 47490611 R53.1 hx of multiple fallsambul ates with walkerPT/O T continues [id number] FRIEDA ANDERSON [address] [address] 11/26/2023 07:45:18 11/28/2023 10:55:36 Falls 406579907 R29.6 on 11/04/23wit nessed fallwith injury/lac eration above left eye.no LOCContinu e PT/OT Facial laceration 564199 008 S01.81XA 11/04 s/p fall for laceration above left eye.healin g no s/sx of infectiona rolan left eye/about 2 cm in lengthappe ars to be about 10-12 small di-solvabl e sutures in placedenie s any visual changes or headache.n ursing to monitor healing Pruritus of vagina 74196 003 L29.3 triamcinol one topical cream BIDkeep area clean and dry. Chronic back pain 045850 002 G89.29 tramadol 25 mg Q12 prngabapen tin 300 mg at hs Asthenia 54360740 R53.1 hx of multiple fallsambul ates with walkerPT/O T continues [id number] FRIEDA ANDERSON [address] [address] 11/29/2023 08:06:37 12/03/2023 11:20:10 Falls 243381381 R29.6 on 11/04/23wit nessed fallwith injury/lac eration above left eye.no LOCContinu e PT/OT Facial laceration 606923 008 S01.81XA healed11/04 s/p fall for laceration above left eye.above left eye/about 2 cm in lengthdeni es any visual changes or headache. Pruritus of vagina 55320 003 L29.3 triamcinol one topical cream BIDkeep area clean and dry. Chronic back pain 237673 002 G89.29 tramadol 25 mg Q12 prngabapen tin 300 mg at hs Asthenia 73118667 R53.1 hx of multiple fallsambul ates with walkerPT/O T continues [id number] FRIEDA ANDERSON [address] [place] [address] 12/04/2023 07:53:49 12/10/2023 10:21:37 Falls 171898673 R29.6 on 11/04/23wit nessed fallwith injury/lac eration above left eye.no LOCContinu e PT/OT Facial laceration 273795 008 S01.81XA healed11/04 s/p fall for laceration above left eye.above left eye/about 2 cm in lengthdeni es any visual changes or headache. Pruritus of vagina 29258 003 L29.3 triamcinol one topical cream BIDkeep area clean and dry. Chronic back pain 723459 002 G89.29 tramadol 25 mg Q12 prngabapen tin 300 mg at hs Asthenia 81554612 R53.1 hx of multiple fallsambul ates with walkerPT/O T continues Cellulitis of right lower limb 6515260803 6034206 L03.115 see hpistarted keflex on 11/30/23 for 7 days with probiotic for 10 daysencour aged to elevated lower extremitie s to elevate edemamonit or for resolution [id number] FRIEDA ANDERSON [address] [place] [address] 12/11/2023 10:06:59 12/13/2023 13:01:47 Falls 692940993 R29.6 no recent falls reported Facial laceration 756499 008 S01.81XA healed11/04 s/p fall for laceration above left eye.above left eye/about 2 cm in lengthdeni es any visual changes or headache. Pruritus of vagina 18163 003 L29.3 triamcinol one topical cream BIDkeep area clean and dry. Chronic back pain 878886 002 G89.29 tramadol 25 mg Q12 prngabapen tin 300 mg at hs Cellulitis of right lower limb 1179534756 8760657 L03.115 resolved. [id number] FRIEDA ANDERSON [address] [address] 12/18/2023 09:20:38 12/20/2023 14:10:33 Chronic diastolic heart failure 327202337 I50.32 preserved EFeuvolemi ctorsemide held in acute care d/t hypotensio n and bradycardi c 50'smonito r BP and need to restartmon itor weights Mixed anxi ety and depressive disorder 494650128 F41.8 stable and pleasantEs citalopram Oxalate Tablet 30 mg dailymonit or for mood and behavorial changes. Type 2 jr betes mellitus 53892321 E11.21 continue monitor glucose,Li spro SSI coverageGa bapentin Capsule 300 MG at bedtime for neuropathy pain.trama dol 25 mg q12 prn [id number] FRIEDA ANDERSON [address] [address] 12/25/2023 11:16:29 12/30/2023 16:09:32 Chronic diastolic heart failure 327628008 I50.32 preserved EFBLE +1was on torsemide but was d/c in acute caremonito r weights- [facility] current weight Mixed anxi ety and depressive disorder 536357474 F41.8 stable and pleasantEs citalopram Oxalate Tablet 30 mg dailymonit or for mood and behavorial changes. Type 2 jr betes mellitus 58788339 E11.21 continue monitor glucose,Li spro SSI coverageGa bapentin Capsule 300 MG at bedtime for neuropathy pain.trama dol 25 mg q12 prn [id number] Naomi Todd MD [address] [address] 12/26/2023 19:19:22 01/31/2024 14:21:17 Cystitis [id number] N30.00 Completed course of meropenem 1 g q 12 hrs on 10/26.Monit or for recurrent sxs. Falls 363931020 R29.6 Continues to be a high fall risk and needs CG and sometimes an assist for transfers. No longer getting acute PT/OT services, restart as able.Cindy nue fall precaution s.Monitor for safety. Peripheral venous insufficiency 88055830 I87.2 No current sxs.Contin ue local care and elevation. Chronic di astolic heart failure 580575927 I50.32 Appears euvolemic. Monitor for need for diuretics. Monitor resp. status, fluid status, wts and labs. Chronic ob structive pulmonary disease 42451957 J43.8 Continues with no sxs.Contin ue Advair 250/50 BID and albuterol nebs q 6 hrs prnMonitor resp status. Type 2 jr betes mellitus 74040065 E11.21 Sugars were all <150 when checked for 3 days.Cindy nue gabapentin 300 MG qhs and tramadol q 12 hrs prn for neuropathy Monitor fingerstic ks prn and HgA1C q 3-6 months Paroxysmal atrial flutter 258377643 I48.92 Rate remains in good control on amiodarone 200 mg qdNo AC due to age and fall riskMonito r HR Restless legs 34057983 G 25.81 Continue ropinirole 2 mg BIDMonitor sxs. Mixed anxi ety and depressive disorder 081671837 F41.8 Mood stableCont inue escitalopr am 30 mg qdMonitor mood.Consu lt psych prn Anemia of chronic disease 881935965 D63.8 Hgb has been stable.Con tinue FeSO4 325 mg qd with vitamin C 250 mg qd for absorption .Monitor labs Hyperlipidemia 62664999 E78.49 Continue atorvastat in 20 mg qdMonitor labs yearly Gastroesop hageal reflux disease 305753346 K21.9 No current sxs.Contin ue pantoprazo le 40 mg qdMonitor sxs Chronic ki dney disease 094608445 N18.1 Renal function remains WNLContinu e to avoid nephrotoxi c meds as able.Monit or labs.Renal consult prn. Chronic back pain 761292 002 G89.29 Continue tramadol 25 mg q 12 hrs prn and gabapentin 300 mg qhsMonitor sxs. 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 Type 2 jr betes mellitus 13502691 E11.21 continue monitor glucose,Li spro SSI coverageGa bapentin Capsule 300 MG at bedtime for neuropathy pain.trama dol 25 mg q12 prn Spasm 38248282 R25.2 12/31/23 nursing reported pt was having left upper leg/buttoc k pain/spasm tramadol changed from q12 to q6 and robaxin 500 mg q 6 prn addedtoday pt states that medication was effectivew ill monitor for worsening sx [id number] FRIEDA ANDERSON [address] [place] [address] 01/08/2024 13:26:41 01/10/2024 11:20:05 Chronic diastolic heart failure 366601308 I50.32 no weight gain notedconti nue furosemide 10 mg dailymonit or labs , weightsmon itor for cardiopulm onary sx Mixed anxi ety and depressive disorder 893196102 F41.8 continue Escitalopr am Oxalate Tablet 30 mg dailymonit or for mood and behavorial changes. Type 2 jr betes mellitus 83811614 E11.21 continue monitor glucose,co ntinue Lispro SSI coverageco ntinue Gabapentin Capsule 300 MG at bedtime for neuropathy pain.cindy nue tramadol 50 mg q 8 prn Spasm 20777069 R25.2 to LLE and glutealpai n has improvedRo baxin 500 mg discontinu e -it was ordered for short term use onlycontin ue tramadol 50 mg prn [id number] [facility] [address] [place] [address] 01/15/2024 09:55:29 01/27/2024 16:00:52 Cervical radiculopathy 44471981 M54.12 start diclofenac gel daily and q8 prncontinu e tramadol 50 mg Q6 prncontinu e gabapentin 300 mg at hs add 300 mg QDrefer to physical therapy for eval and tx [id number] CARLTON MINA, [address]NA[address] [address] 01/22/2024 09:25:19 01/28/2024 11:32:54 Cervical radiculopathy 67679277 M54.12 continue diclofenac gel daily and q8 prncontinu e tramadol 50 mg Q6 prncontinu e gabapentin 300 mg at hs add 300 mg QDper therapy patient neck pain is chronic and she was previously treated and recommende d Chronic di astolic heart failure 771246215 I50.32 monitor labs , weights , edemamonit or for cardiopulm onary sxencourag ed leg elevation/ wraps as needed. Gastroesop hageal reflux disease 582024049 K21.9 Pantoprazo le40 mg dailymonit or for gi upset. Mixed anxi ety and depressive disorder 219704494 F41.8 continue Escitalopr am Oxalate Tablet 30 mg dailymonit or for mood and behavorial changes. Type 2 jr betes mellitus 87689783 E11.21 continue monitor glucose,co ntinue Lispro SSI coverageco ntinue Gabapentin Capsule 300 MG at bedtime for neuropathy pain.cindy nue tramadol 50 mg q 8 prn [id number] FRIEDA ANDERSON [address] [address] 01/27/2024 10:53:32 02/17/2024 12:46:54 Cervical radiculopathy 21598619 M54.12 continue diclofenac gel daily and q8 prncontinu e tramadol 50 mg Q6 prncontinu e gabapentin 300 mg at hs add 300 mg QD Chronic di astolic heart failure 242563129 I50.32 monitor labs , weights , edemamonit or for cardiopulm onary sxencourag ed leg elevation/ wraps as needed. Gastroesop hageal reflux disease 585103054 K21.9 Pantoprazo le40 mg dailymonit or for gi upset. Mixed anxi ety and depressive disorder 530675617 F41.8 continue Escitalopr am Oxalate Tablet 30 mg dailymonit or for mood and behavorial changes. Type 2 jr betes mellitus 51664195 E11.21 bgl have been stablecont inue monitor glucose,co ntinue Lispro SSI coverageco ntinue Gabapentin Capsule 300 MG at bedtime for neuropathy pain.cindy nue tramadol 50 mg q 8 prn Falls 583063542 R29.6 no recent fallsConti nues to be a high fall risk and needs CG and sometimes an assist for transfers. she has reduce functional mobility to left lower extremity due to pain in her ankle.Alba ent would benefit from an AFO to provide support to LLE/ankle and reduce pain. [id number] FRIEDA ANDERSON [address] [place] [address] 01/30/2024 10:23:09 02/04/2024 14:43:29 Bleeding from nose 764840512 R04.0 see hpistart afrin 2 spray to right nares q12 x 5days.janice loera for recurrence monitor BP/rebound congestion [id number] FRIEDA ANDERSON [address] [place] [address] 02/05/2024 09:31:19 02/11/2024 09:17:30 Bleeding from nose 335027065 R04.0 resolved. Cervical radiculopathy 26114411 M54.12 continue diclofenac gel daily and q8 prncontinu e tramadol 50 mg Q6 prncontinu e gabapentin 300 mg at hs add 300 mg QDper therapy patient neck pain is chronic and she was previously treated and recommende d Chronic di astolic heart failure 240450336 I50.32 monitor labs , weights , edemamonit or for cardiopulm onary sxencourag ed leg elevation/ wraps as needed. Gastroesop hageal reflux disease 336043522 K21.9 Pantoprazo le40 mg dailymonit or for gi upset. Mixed anxi ety and depressive disorder 995232009 F41.8 continue Escitalopr am Oxalate Tablet 30 mg dailymonit or for mood and behavorial changes. Type 2 jr betes mellitus 66175768 E11.21 continue monitor glucose,co ntinue Lispro SSI coverageco ntinue Gabapentin Capsule 300 MG at bedtime for neuropathy pain.cindy nue tramadol 50 mg q 8 prn [id number] MD DARRIN Perry [address] [place] [address] 02/28/2024 13:56:25 03/10/2024 11:09:37 Pain in left foot 3446904946 57236 M79.672 With new deformity of left great [...] q 8 hrs prn for pain. Diarrhea 29053023 R19.7 Only has happened one time so far, possibly from stress.Ord ered imodium prnMonitor [id number] FRIEDA ANDERSON [address] [address] 03/04/2024 14:57:51 03/10/2024 11:43:05 Pain in left foot 3920615497 30739 M79.672 deformity of left great toe, with [...] for pain. Blister of toe without infection 88788128 S90.425A continue warm soaks as aboveclean se left 2nd toe with soap and warm water, hydrogen peroxideap ply petroleum and cover with gauze or non stick dressing daily and prnmonitor for healing. [id number] FRIEDA ANDERSON [address] [address] 03/06/2024 14:42:26 03/10/2024 12:16:05 Mixed anxiety and depressive disorder 169848113 F41.8 continue Escitalopr am Oxalate Tablet 30 mg dailywill adjust trazodone and increased from 12.5 mg to 25 mg scheduled at HS per psych rec.and continue prn trazodone 12.5 mg bid prn, anxiety for 14 days.monit or for mood and behavorial changes. [id number] FRIEDA ANDERSON [address] [address] 03/10/2024 10:17:01 03/16/2024 15:45:17 Pain in left foot 5556115469 61649 M79.672 deformity of left great toe, with [...] possible.c ontinue Gauze between toes to protect.Po nate consult, if health drive not coming next week, will consult Dr. Tanner [phone] can have wound care see her for further advice- will be seen by wound on ontinu e APAP 650 mg q 6 hrs prn and tramadol 50 mg q 8 hrs prn for pain.she does not have hx of gout but will order uric acid d/t her still having pain despite abx use for 4 days. Blister of toe without infection 74739325 S90.425A continue warm soaks as aboveclean se left 2nd toe with soap and warm water, hydrogen peroxidedr essing changes to Alginate/D CD QD [id number] FRIEDA ANDERSON [address] [address] 03/16/2024 09:19:11 03/19/2024 16:19:43 Pain in left foot 3772777253 37444 M79.672 baseline deformity due to hammer toeabx [...] infection. Mixed anxi ety and depressive disorder 152634690 F41.8 continue Escitalopr am Oxalate Tablet 30 mg dailyrepor ts although medication s have been helpful that she continues with difficultl y falling asleepand evening anxiety.in creased trazodone to 25 mg at HScontinue trazodone to 12.5 mg q12 prnmonitor for mood and behavorial changes. [id number] FRIEDA ANDERSON [address] [address] 03/17/2024 10:40:42 03/20/2024 08:44:03 Bleeding from nose 467460139 R04.0 minor nasal bleeding after blowing her nosewill discussed avoiding nose blowing, gently sniff insteadavo id picking nose or rubbing noseafrin nasal 1 spray BID prnsaline nasal spray BID Pain of to e of left foot 1227613529 26649 M79.675 reports pain to left great toe and second great toenailini tially flinching on exam when toe(s) were touched , states pain requesting toenail to be cut on 2ndshe provided clippers, I trimmed and file all toenail, she reports toes feeling much betterther e was no observatio n of facial grimacing, flinching or pulling away during procedure. [id number] Naomi Todd MD [address] [address] 03/30/2024 16:40:06 04/01/2024 10:48:39 Falls 735762022 R29.6 Continues to be a high fall risk.Getti ng OT for mobility and safety, primarily wheelchair level.Cont inue fall precaution s.Monitor for safety. Peripheral venous insufficiency 20702985 I87.2 No current sxs.Contin ue local care and elevation. Chronic di astolic heart failure 937838348 I50.32 Appears euvolemic. Continue furosemide 10 mg qdMonitor resp. status, fluid status, wts and labs. Chronic ob structive pulmonary disease 45642638 J43.8 Continues with no sxs.Contin ue Advair 250/50 BID and albuterol nebs q 6 hrs prnMonitor resp status. Type 2 jr betes mellitus 36978323 E11.21 Stable on no meds.Last HgA1C was 6.1 in 06/2023.Con tinue gabapentin 300 MG qhs and tramadol qhs scheduled and BID prn for neuropathy Monitor fingerstic ks prn and HgA1C q 3-6 months Paroxysmal atrial flutter 555295954 I48.92 Rate remains in good control on amiodarone 200 mg qdNo AC due to age and fall riskMonito r HR Restless legs 41906144 G 25.81 Continue ropinirole 2 mg BIDMonitor sxs. Mixed anxi ety and depressive disorder 403191798 F41.8 Mood sl. down due to pain not improving. Continue escitalopr am 30 mg qdMonitor mood.Consu lt psych prn Anemia of chronic disease 853944777 D63.8 Hgb remains stable.Con tinue FeSO4 325 mg qd with vitamin C 250 mg qd for absorption .Monitor labs Hyperlipidemia 13091584 E78.49 Continue atorvastat in 20 mg qdMonitor labs yearly Gastroesop hageal reflux disease 173653790 K21.9 No current sxs.Contin ue pantoprazo le 40 mg qdMonitor sxs Chronic ki dney disease 271224626 N18.2 Renal function remains stableCont inue to avoid nephrotoxi c meds as able.Monit or labs.Renal consult prn. Chronic back pain 536857 002 G89.29 Continue meds as above.Janice tor sxs. Bleeding from nose 64078 6005 R04.0 Resolved. Pain of to e of left foot 0552394594 47380 M79.675 No improvemen t since toenails cut on 03/17.Left 2nd toe still red and tender.Esteban have nursing set up appt with Dr. Lu Holder who has offices in [facility] and [place]. [place] # is [phone] local care until then. Using padding between toes to keep the pressure off.Monito r for signs of infection. Will schedule hs tramadol and keep 50 mg BID prn [id number] FRIEDA ANDERSON DARRIN STYLES [address] [facility] [facility] [address] [place] [address] 04/03/2024 11:03:23 04/28/2024 07:31:02 Cellulitis of foot 640728851 L03.119 left footsuspec gloria do to sx.recentl y treated for cellulitis left great toe with doxycyclin ewill start cephalexin 250 mg Q 6 hr for 5 days.will add probiotic BID for 7 daysmonito r for resolution . [id number] MD DARRIN Perry JENSEN [address] [place] [address] 04/13/2024 17:19:14 04/28/2024 08:01:43 Osteomyelitis 43348834 M86.272 Continue ertapenem 1 gm IV qd [...] Dr. Lu Holder who has offices in [facility] and [place]. [place] # is Falls [id number] R29.6 Continues to be a high fall risk.Able to restart rehab after hospitaliz ation.Need s PT/OT for strengthen ing, balance, gait training, safety and function.C ontinue fall precaution s.Monitor for safety. Chronic di astolic heart failure 519187174 I50.32 Appears euvolemic. Continue furosemide 10 mg qdMonitor resp. status, fluid status, wts and labs. Chronic ob structive pulmonary disease 42849698 J43.8 Continues with no sxs.Contin ue Advair 250/50 BID and albuterol nebs q 6 hrs prnMonitor resp status. Type 2 jr betes mellitus 51463401 E11.21 Sugars inpt were all <100Last HgA1C was 6.1 in 06/2023.Con tinue gabapentin 300 MG qhs and other pain meds as above for neuropathy .Monitor fingerstic ks prn and HgA1C q 3-6 months Paroxysmal atrial flutter 321225401 I48.92 Rate remains in good control on amiodarone 200 mg qdNo AC due to age and fall riskMonito r HR Restless legs 67185729 G 25.81 Continue ropinirole 2 mg BIDMonitor sxs. Mixed anxi ety and depressive disorder 901330651 F41.8 Mood sl. down due to pain not improving. Continue escitalopr am 30 mg qd, trazadone 25 mg qhs and 12.5 mg BID prn.Monito r mood.Consu lt psych prn Anemia of chronic disease 374987415 D63.8 Hgb remains stable.Con tinue FeSO4 325 mg qd with vitamin C 250 mg qd for absorption .Monitor labs Hyperlipidemia 69096714 E78.49 Continue atorvastat in 20 mg qdMonitor labs yearly Gastroesop hageal reflux disease 975754268 K21.9 No current sxs.Contin ue pantoprazo le 40 mg qdMonitor sxs Chronic ki dney disease 488334956 N18.2 Renal function remains stableCont inue to avoid nephrotoxi c meds as able.Monit or labs.Renal consult prn. Chronic back pain 987639 002 G89.29 Continue meds as above.Janice tor sxs. Peripheral venous insufficiency 54768306 I87.2 No current sxs.Contin ue local care and elevation. [id number] FRIEDA ANDERSON [address] [address] 04/16/2024 08:54:52 04/28/2024 08:26:12 Osteomyelitis 23214598 M86.272 Continue ertapenem 1 gm IV qd [...] Dr. Lu Holder who has offices in [facility]. [place] # is Falls [id number] R29.6 Continues to be a high fall risk.Able to restart rehab after hospitaliz ation.Need s PT/OT for strengthen ing, balance, gait training, safety and function.C ontinue fall precaution s.Monitor for safety. Chronic di astolic heart failure 292077769 I50.32 Appears euvolemic. Continue furosemide 10 mg qdMonitor resp. status, fluid status, wts and labs. Chronic ob structive pulmonary disease 10093485 J43.8 Continues with no sxs.Contin ue Advair 250/50 BID and albuterol nebs q 6 hrs prnMonitor resp status. Paroxysmal atrial flutter 429727185 I48.92 Rate remains in good control on amiodarone 200 mg qdNo AC due to age and fall riskMonito r HR Restless legs 43920521 G 25.81 Continue ropinirole 2 mg BIDMonitor sxs. Mixed anxi ety and depressive disorder 709252335 F41.8 Continue escitalopr am 30 mg qd, trazadone 25 mg qhs and 12.5 mg BID prn.Monito r mood.Consu lt psych prn Anemia of chronic disease 188828971 D63.8 Continue FeSO4 325 mg qd with vitamin C 250 mg qd for absorption .Monitor labs Hyperlipidemia 14578678 E78.49 Continue atorvastat in 20 mg qdMonitor labs yearly Gastroesop hageal reflux disease 605358584 K21.9 No current sxs.Contin ue pantoprazo le 40 mg qdMonitor sxs [id number] FRIEDA ANDERSON JENSEN [address] [place] [address] 04/20/2024 10:04:50 04/28/2024 08:59:08 Osteomyelitis 63148195 M86.272 left foot 2nd toe with woundgrima [...] Dr. Lu Holder who has offices in [facility] and [place]. [place] # is Chronic di astolic heart failure 583046864 I50.32 Appears euvolemic. Continue furosemide 10 mg qdMonitor resp. status, fluid status, wts and labs. Chronic ob structive pulmonary disease 88194932 J43.8 breathing easy and unlabored. Continue Advair 250/50 BID and albuterol nebs q 6 hrs prnMonitor resp status. Mixed anxi ety and depressive disorder 303948559 F41.8 her mood is normal reports eating and drinking ok.Continu e escitalopr am 30 mg qd, trazadone 25 mg qhs and 12.5 mg BID prn.Monito r mood.Consu lt psych prn [id number] Naomi Todd MD [address] [address] 04/23/2024 22:13:47 04/30/2024 18:09:13 Osteomyelitis 46850857 M86.272 Continue ertapenem 1 gm IV qd [...] Lu Holder's office again. Has offices in [facility] and [place]. [place] # is Falls [id number] R29.6 Is still a high fall risk.Needs PT/OT for strengthen ing, balance, gait training, safety and function.C ontinue fall precaution s.Monitor for safety. Chronic di astolic heart failure 931605331 I50.32 Remains euvolemic. Continue furosemide 10 mg qdMonitor resp. status, fluid status, wts and labs. Chronic ob structive pulmonary disease 89044029 J43.8 Continues with no sxs.Contin ue Advair 250/50 BID and albuterol nebs q 6 hrs prnMonitor resp status. Type 2 jr betes mellitus 89566231 E11.21 Sugars were all good, so not being checked regularly. Last HgA1C was 6.1 in 06/2023.Con tinue gabapentin 300 MG qhs and other pain meds as above for neuropathy .Monitor fingerstic ks prn and HgA1C q 3-6 months [id number] GOLDIE TREVIZO [address] [place] [address] 04/30/2024 08:46:54 05/02/2024 09:31:27 Osteomyelitis 66297930 M86.272 left foot 2nd toe with wound, [...] care.cindy greene with wound care treatment ordersstef neumann f/u with Dr. Lu Holder who has offices in [facility] and [place]. [place] # is Chronic di astolic heart failure 808396995 I50.32 Appears euvolemic. Continue furosemide 10 mg qdMonitor resp. status, fluid status, wts and labs. Chronic ob structive pulmonary disease 37649432 J43.8 breathing easy and unlabored. Continue Advair 250/50 BID and albuterol nebs q 6 hrs prnMonitor resp status. Mixed anxi ety and depressive disorder 138783490 F41.8 her mood is normal reports eating and drinking ok.Continu e escitalopr am 30 mg qd, trazadone 25 mg qhs and 12.5 mg BID prn.Monito r mood.Consu lt psych prn Gastroesop hageal reflux disease 594798122 K21.9 Reporting some nausea after eating, unsure if may be related to abx use. Discused with nsg., will monitor.Co ntinue pantoprazo le 40 mg qdMonitor sxs Restless legs 21317212 G 25.81 Continue requip, very helpful Headache 97786187 R51.9 history of, including migraines, for years.Most headaches in the forehead area and above eyes.APAP discussed, helps, would like it sched. if possible.Eloy iscussed claudine nsg. who also feels it would be a good idea, so will sched. 650 mg tid.Monito r. [id number] FRIEDA ANDERSON [address] [place] [address] 05/05/2024 11:02:17 05/06/2024 15:43:52 Osteomyelitis 01088905 M86.272 left foot 2nd toe with wound, [...] Dr. Lu Holder who has offices in [facility], [place] and [place]. [place] # is Chronic di astolic heart failure 406871707 I50.32 Appears euvolemic. Continue furosemide 10 mg qdMonitor resp. status, fluid status, wts and labs. Chronic ob structive pulmonary disease 97104234 J43.8 breathing easy and unlabored. Continue Advair 250/50 BID and albuterol nebs q 6 hrs prnMonitor resp status. Mixed anxi ety and depressive disorder 858245270 F41.8 her mood is normal reports eating and drinking ok.Continu e escitalopr am 30 mg qd, trazadone 25 mg qhs and 12.5 mg BID prn.Monito r mood.Consu lt psych prn Gastroesop hageal reflux disease 385792176 K21.9 Continue pantoprazo le 40 mg qdMonitor sxs Restless legs 75432352 G 25.81 Continue requip, very helpful Headache 36270761 R51.9 history of, including migraines, for years.Most headaches in the forehead area and above eyes.APAP discussed, helps, would like it sched. if possible.Eloy mo. who also feels it would be a good idea, so will sched. 650 mg tid.Monito r. [id number] [facility] [address] [place] [address] rd [place] [address] 05/07/2024 10:05:01 05/11/2024 16:11:56 Osteomyelitis 77284797 M86.272 Continue ertapenem 1 gm IV qd [...] wound care.cindy greene with wound care treatment ordersShou ld f/u with Dr. Lu Holder who has offices in [facility], [place] and [place]. [place] # is Chronic di astolic heart failure 669342732 I50.32 Appears euvolemic. Continue furosemide 10 mg qdMonitor resp. status, fluid status, wts and labs. Chronic ob structive pulmonary disease 18780352 J43.8 breathing easy and unlabored. Continue Advair 250/50 BID and albuterol nebs q 6 hrs prnMonitor resp status. Mixed anxi ety and depressive disorder 591099270 F41.8 Continue escitalopr am 30 mg qd, trazadone 25 mg qhs and 12.5 mg BID prn.Monito r mood.Consu lt psych prn Gastroesop hageal reflux disease 509317946 K21.9 Continue pantoprazo le 40 mg qdMonitor sxs Restless legs 83643197 G 25.81 Continue requip, very helpful Headache 60992644 R51.9 continue tylenol 650 mg prn.encour age to increase oral hydration. [id number] FRIEDA ANDERSON [facility] JENSEN [address] [place] [address] [place] [address] 05/11/2024 16:30:45 05/12/2024 13:09:07 Osteomyelitis 68291537 M86.272 Has been tolerating IV therapy.Co ntinue [...] care.cindy greene with wound care treatment ordersShstef ld f/u with Dr. Lu Holder who has offices in [facility], [place] and [place]. [place] # is Chronic di astolic heart failure 059410200 I50.32 euvolemic. Continue furosemide 10 mg qdMonitor resp. status, fluid status, wts and labs. Chronic ob structive pulmonary disease 56334953 J43.8 Continue Advair 250/50 BID and albuterol nebs q 6 hrs prnMonitor resp status. Mixed anxi ety and depressive disorder 021951732 F41.8 Continue escitalopr am 30 mg qd, trazadone 25 mg qhs and 12.5 mg BID prn.mood is good today. pleasant on exam.Monit or moodConsul t psych prn Gastroesop hageal reflux disease 268013618 K21.9 Continue pantoprazo le 40 mg qdMonitor sxs Restless legs 32154024 G 25.81 Continue requip 2 mg bid Headache 15372830 R51.9 continue tylenol 650 mg prn.encour age to increase oral hydration. [id number] FRIEDA ANDERSON [address] [place] [address] 05/15/2024 10:17:08 05/19/2024 11:08:19 Osteomyelitis 71712394 M86.272 Has been tolerating IV therapy.Co ntinue ertapenem 1 gm IV qd until ontin ue probiotic BIDContinu e local care as ordered.Mo nitor labs (CBC, CMP, ESR, and CRP weekly until 05/18) and skin condition. Chronic di astolic heart failure 224260368 I50.32 euvolemic. Continue furosemide 10 mg qdMonitor resp. status, fluid status, wts and labs. Chronic ob structive pulmonary disease 19412457 J43.8 Continue Advair 250/50 BID and albuterol nebs q 6 hrs prnMonitor resp status. Mixed anxi ety and depressive disorder 231105723 F41.8 Continue escitalopr am 30 mg qd, trazadone 25 mg qhs and 12.5 mg BID prn.mood is good today. pleasant on exam.Monit or moodConsul t psych prn Gastroesop hageal reflux disease 497597272 K21.9 Continue pantoprazo le 40 mg qdthere has been no reported GI upset. Restless legs 29974889 G 25.81 Continue requip 2 mg bid Headache 95571577 R51.9 continue tylenol 650 mg prn.encour age to increase oral hydration. [id number] FRIEDA ANDERSON [address] [place] [address] 05/18/2024 08:44:49 05/19/2024 11:16:27 Osteomyelitis 36989380 M86.272 completed abxcontinu e probiotic BIDContinu e local care as ordered.f/ u appt. with ID later today Chronic di astolic heart failure 712521957 I50.32 stableCont inue furosemide 10 mg qdMonitor resp. status, fluid status, wts and labs. Chronic ob structive pulmonary disease 70396762 J43.8 breathing easy and unlabored. Continue Advair 250/50 BID and albuterol nebs q 6 hrs prnMonitor resp status. Mixed anxi ety and depressive disorder 361109570 F41.8 Continue escitalopr am 30 mg qd, trazadone 25 mg qhs and 12.5 mg BID prn.Monito r moodConsul t psych prn Gastroesop hageal reflux disease 558275417 K21.9 Continue pantoprazo le 40 mg qdthere has been no reported GI upset. Restless legs 89282019 G 25.81 Continue requip 2 mg bid Headache 44229797 R51.9 continue tylenol 650 mg prn.encour age to increase oral hydration. [id number] FRIEDA ANDERSON [address] [address] 05/25/2024 09:58:25 05/29/2024 09:27:36 Osteomyelitis 76287009 M86.272 completed abx Chronic di astolic heart failure 365401712 I50.32 euvolemicC ontinue furosemide 10 mg qdMonitor resp. status, fluid status, wts and labs. Chronic ob structive pulmonary disease 46214015 J43.8 breathing easy and unlabored. Continue Advair 250/50 BID and albuterol nebs q 6 hrs prnMonitor resp status. Mixed anxi ety and depressive disorder 448650633 F41.8 Continue escitalopr am 30 mg qd, trazadone 25 mg qhs and 12.5 mg BID prn.Monito r moodConsul t psych prn Gastroesop hageal reflux disease 729042189 K21.9 Continue pantoprazo le 40 mg qdthere has been no reported GI upset. Restless legs 92704319 G 25.81 Continue requip 2 mg bid Headache 27255643 R51.9 continue tylenol 650 mg prn.encour age to increase oral hydration. [id number] FRIEDA ANDERSON [address] [address] 06/01/2024 09:58:25 06/03/2024 09:34:34 Osteomyelitis 29546043 M86.272 completed abx Chronic di astolic heart failure 942181045 I50.32 euvolemicC ontinue furosemide 10 mg qdMonitor resp. status, fluid status, wts and labs. Chronic ob structive pulmonary disease 80948427 J43.8 breathing easy and unlabored. Continue Advair 250/50 BID and albuterol nebs q 6 hrs prnMonitor resp status. Mixed anxi ety and depressive disorder 441961057 F41.8 mood is stableCont inue escitalopr am 30 mg qd, trazadone 25 mg qhs and 12.5 mg BID prn.Monito r moodConsul t psych prn [id number] FRIEDA ANDERSON [address] [address] 06/03/2024 11:42:59 06/09/2024 13:21:42 Osteomyelitis 24511732 M86.272 completed abx Chronic di astolic heart failure 974768160 I50.32 euvolemicC ontinue furosemide 10 mg qdMonitor resp. status, fluid status, wts and labs. Chronic ob structive pulmonary disease 50037068 J43.8 breathing easy and unlabored. Continue Advair 250/50 BID and albuterol nebs q 6 hrs prnMonitor resp status. Mixed anxi ety and depressive disorder 982828677 F41.8 mood is stableCont inue escitalopr am 30 mg qd, trazadone 25 mg qhs and 12.5 mg BID prn.Monito r moodConsul t psych prn [id number] FRIEDA ANDERSON [facility] JENSEN [address] [place] [address] [place] [address] 06/09/2024 10:12:41 06/11/2024 14:30:47 Osteomyelitis 22998074 M86.272 06/09:clinic ally she is stableleft foot [...] dry and apply bacitracin with DCD BID. [id number] FRIEDA ANDERSON JENSEN [address] [place] [address] [place] [address] 06/11/2024 11:46:23 06/15/2024 11:21:06 Osteomyelitis 29486903 M86.272 06/09:clinic ally she is stableleft foot [...] a second consult with ortho. appt 06/18/24. [id number] FRIEDA ANDERSON [address] [place] [address] 06/15/2024 09:48:35 06/17/2024 10:12:04 Osteomyelitis 69789027 M86.272 06/09:clinic ally she is stableleft foot [...] appt 06/18/24. Chronic di astolic heart failure 547597094 I50.32 euvolemicw eight stableCont inue furosemide 10 mg qdMonitor resp. status, fluid status, wts and labs. Chronic ob structive pulmonary disease 97373318 J43.8 breathing easy and unlabored. Continue Advair 250/50 BID and albuterol nebs q 6 hrs prnMonitor resp status. [id number] FRIEDA ANDERSON DARRIN STYLES [address] [place] [address] [place] [address] 06/22/2024 08:47:12 06/24/2024 08:50:27 Osteomyelitis 62470533 M86.272 06/09:clinic ally she is stableleft foot [...] gaines. Mixed anxi ety and depressive disorder 977660139 F41.8 mood is stablerece nt room change transition to LTC, adjusting well. Most of the women she joins at activities reside on same unit, she is happy about this.Cindy nue escitalopr am 30 mg qd, trazadone 25 mg qhs and 12.5 mg BID prn.Monito r moodConsul t psych prn [id number] FRIEDA ANDERSON DARRIN STYLES [address] [place] [address] [place] [address] 06/29/2024 10:45:15 06/30/2024 13:34:02 Osteomyelitis 34063680 M86.272 06/09:clinic ally she is stableleft foot [...] ortho. Mixed anxi ety and depressive disorder 547369389 F41.8 mood is stablerece nt room change transition to LTC, adjusting well. Most of the women she joins at activities reside on same unit, she is happy about this.Cindy nue escitalopr am 30 mg qd, trazadone 25 mg qhs and 12.5 mg BID prn.Monito r moodConsul t psych prn Chronic di astolic heart failure 641226850 I50.32 euvolemicw eight stable noted 166-168Con tinue furosemide 10 mg qdMonitor resp. status, fluid status, wts and labs. [id number] FRIEDA ANDERSON [address] [place] [address], [place] [address] 07/02/2024 11:07:08 07/03/2024 12:50:28 Mixed anxiety and depressive disorder 617337369 F41.8 mood is stable- she denies feeling hopeless, lonely or isolated.C ontinue escitalopr am 30 mg qd, trazadone 25 mg qhs and 12.5 mg BID prn.Monito r mood for negative changes.pt encouraged to continue to engage in social activities .Consult psych prn Chronic di astolic heart failure 929100823 I50.32 euvolemic- she denies any chest pain or shortness of breathweig ht stable noted 166-168Con tinue furosemide 10 mg qdMonitor resp. status, fluid status, wts and labs. Hammer toe 561102573 M20 .42 left foot 2 nd toe-recent ly completed IV antibiotic s ertapenem 1 gm daily for 6 weeks for osteomyeli tis. she continues to have discomfort . follow up xray results: no acute abnormalit y is seen in the left foot. [id number] FRIEDA ANDERSON [address] [address] 07/07/2024 14:44:04 07/08/2024 11:39:59 Hammer toe 217872977 M20.42 left foot 2 nd toe-recent ly completed IV antibiotic s ertapenem 1 gm daily for 6 weeks for osteomyeli tis. she continues to have discomfort . follow up xray results: no acute abnormalit y is seen in the left foot. Mixed anxi ety and depressive disorder 451335837 F41.8 mood is stable- she denies feeling hopeless, lonely or isolated.C ontinue escitalopr am 30 mg qd, trazadone 25 mg qhs and 12.5 mg BID prn.Monito r mood for negative changes.pt encouraged to continue to engage in social activities .followed by psych prn recently seen 07/06 no new recommenda tion. Chronic di astolic heart failure 090469857 I50.32 euvolemic- she denies any chest pain or shortness of breathweig ht stable noted 166-168Con tinue furosemide 10 mg qdMonitor resp. status, fluid status, wts and labs. [id number] FRIEDA ANDERSON [address] [address] 07/13/2024 08:31:31 07/14/2024 11:43:51 Hammer toe 548768621 M20.42 07/13:stabl e, no worsening sx notedleft foot 2 nd toe-recent ly completed IV antibiotic s ertapenem 1 gm daily for 6 weeks for osteomyeli tis. she continues to have discomfort . follow up xray results: no acute abnormalit y is seen in the left foot. Mixed anxi ety and depressive disorder 026196785 F41.8 07/13: StableCont inue escitalopr am 30 mg qd, trazadone 25 mg qhs and 12.5 mg BID prn.Monito r mood for negative changes.pt encouraged to continue to engage in social activities .followed by psych prn recently seen 07/06 no new recommenda tion. Chronic di astolic heart failure 463314411 I50.32 07/13: stable.euv olemic- she denies any chest pain or shortness of breathweig ht stable noted 166-168Con tinue furosemide 10 mg qdMonitor resp. status, fluid status, wts and labs. [id number] FRIEDA ANDERSON [address] [address] 07/16/2024 10:15:02 07/21/2024 15:43:58 Hammer toe 429345011 M20.42 07/13:stabl e, no worsening sx notedleft foot 2 nd toe-recent ly completed IV antibiotic s ertapenem 1 gm daily for 6 weeks for osteomyeli tis. she continues to have discomfort . follow up xray results: no acute abnormalit y is seen in the left foot. Mixed anxi ety and depressive disorder 498200589 F41.8 Stable with delusional thoughts, she thinks staff is stealing her clothes.Co ntinue escitalopr am 30 mg qd, trazadone 25 mg qhs and 12.5 mg BID prn.Monito r mood for negative changes.pt encouraged to continue to engage in social activities .followed by psych prn recently seen 07/06 no new recommenda tion. Chronic di astolic heart failure 890492956 I50.32 stable.euv olemic- she denies any chest pain or shortness of breathweig ht stable noted 166-168Con tinue furosemide 10 mg qdMonitor resp. status, fluid status, wts and labs. [id number] FRIEDA ANDERSON [address] [address] 07/20/2024 11:57:24 07/21/2024 16:08:03 Hammer toe 066319526 M20.42 stable, no worsening sx notedleft foot 2 nd toe-recent ly completed IV antibiotic s ertapenem 1 gm daily for 6 weeks for osteomyeli tis. she continues to have discomfort . follow up xray results: no acute abnormalit y is seen in the left foot. Mixed anxi ety and depressive disorder 135742281 F41.8 07/19: seen by psych nurse will review notes when available. Stable with delusional thoughts, she thinks staff is stealing her clothes.Co ntinue escitalopr am 30 mg qd, trazadone 25 mg qhs and 12.5 mg BID prn.Monito r mood for negative changes.pt encouraged to continue to engage in social activities .followed by psych prn recently seen 07/06 no new recommenda tion. Chronic di astolic heart failure 963333259 I50.32 stable.euv olemic- she denies any chest pain or shortness of breathweig ht stable noted 166-168Con tinue furosemide 10 mg qdMonitor resp. status, fluid status, wts and labs. [id number] FRIEDA ANDERSON [facility] e [address] [place] [address] 07/23/2024 11:46:33 07/24/2024 11:44:07 Hammer toe 388154289 M20.42 stable, no worsening sx notedleft foot 2 nd toe-recent ly completed IV antibiotic s ertapenem 1 gm daily for 6 weeks for osteomyeli tis. she continues to have discomfort . follow up xray results: no acute abnormalit y is seen in the left foot. Mixed anxi ety and depressive disorder 679317973 F41.8 StableCont inue escitalopr am 30 mg qd, trazadone 25 mg qhs and 12.5 mg BID prn.Monito r mood for negative changes.pt encouraged to continue to engage in social activities .followed by psych prn recently seen 07/06 no new recommenda tion. Chronic di astolic heart failure 047100707 I50.32 stable.euv olemic- she denies any chest pain or shortness of breathweig ht stable noted 166-168Con tinue furosemide 10 mg qdMonitor resp. status, fluid status, wts and labs. Chronic ob structive pulmonary disease 40727679 J43.8 breathing easy and unlabored. Continue Advair 250/50 BID and albuterol nebs q 6 hrs prnMonitor resp status. [id number] FRIEDA ANDERSON [address] [address] 09/10/2024 08:43:17 09/11/2024 12:05:09 Mixed anxiety and depressive disorder 660685344 F41.8 mild emotional distress, crying during assessment 2/2 ble painContin ue escitalopr am 30 mg qd, trazadone 25 mg qhs and 12.5 mg BID prn.psych prn Chronic di astolic heart failure 997788355 I50.32 euvolemic- she denies any chest pain or shortness of breathweig ht stableCont inue furosemide 20 mg qdMonitor resp. status, fluid status, wts and labs. Chronic ob structive pulmonary disease 05361053 J43.8 breathing easy and unlabored. Continue Advair 250/50 BID and albuterol nebs q 6 hrs prnMonitor resp status. Neuropathy 071020749 G62 .9 see hpiBLE without sx of infectiono n gabapentin 300 mg at hs -she has been having increasing sx and weakness, requiring 2 people assist.dis cussed increasing gabapentin to BID and re eval in a few days for effect.hx diabetes/n ot on meds/ will get updated A1c. (06/2023 noted 6.1) Restless legs 52663188 G 25.81 Continue requip 2 mg bid [id number] FRIEDA ANDERSON [address] [address] 09/14/2024 10:23:24 09/15/2024 14:23:56 Neuropathy 940556384 G62.9 BLE without sx of infectiong abapentin 300 mg BIDshe has been having increasing sx and weakness, requiring 2 people assist.hx diabetes/n ot on meds/ will get updated A1c. (06/2023 noted 6.1) - labs ord for today not completed will re-order. Restless legs 33718081 G 25.81 Continue requip 2 mg bid [id number] FRIEDA ANDERSON [address] [place] [address] 10/02/2024 11:01:09 10/05/2024 13:31:21 Pain of left ankle joint 0289241993 7742158 M25.572 localizedn on pitting left ankle swelling, no redness or warmthno foot discolorat ion, color is normal+CMS , pain with ROMplan for xray, labs with uric acid,apply ice 15 minutes to ankle TIDapply tyrone wrap compressio n dailywill schedule tylenol 650 mg TID and Motrin 400 mg BIDPT/OT eval and tx [id number] FRIEDA ANDERSON [address] [facility] [address] 10/05/2024 11:01:37 10/06/2024 13:54:09 Pain of left ankle joint 7178349196 2163921 M25.572 localized/ swelling noted to have improved [...] BIDPT/OT eval and tx Contusion of thigh 61578 003 S70.10XA see hpi/left thightende r to touchmonit or as it healsdiscu ssed with nursingcon tinue scheduled tylenol [id number] Rex Bass MD [address] [place] [address] 11/25/2024 11:52:19 11/26/2024 15:26:27 Acute low back pain 046485292 M54.59 acute on chronic low back pain with point tenderness lumbar spinex ray to eval for concern vert comp fxx ray left hipchange tramadol 50 mg to q 6 prnmonitor need for ortho eval Chronic di astolic heart failure 491389884 I50.32 euvolemic- she denies any chest pain or shortness of breathweig ht stableCont inue furosemide 20 mg qdMonitor resp. status, fluid status, wts and labs. 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 G92.8 increased confusion at hospital is currently A and O x 3 with poor short term recall Asthenia 81413446 R53.1 therapy to re-evaluat e to determine baseline Cardiac en zymes outside reference range 659807495 R89.0 eval by cards now onasa 81 mg qdlipitor 40 mg qdmonitor sx Essential hypertension 28064896 I10 lasix 20 mg qd prn for weight gain associated with chfstarted on norvasc 2.5 mg qdmonitor bp and need to titrate Chronic di astolic heart failure 050229346 I50.32 Continue furosemide 20 mg qd prn weight gain Paroxysmal atrial flutter 534969251 I48.3 amiodarone 200 mg qdmonitor rate control Impaired cognition 77676 6002 R41.89 question of poor insight prior to above infectionb eing eval by psych for competency evalwill await recs [id number] MD DARRIN Roe [address] [place] [address] 01/06/2025 11:35:48 01/08/2025 08:30:51 Toxic metabolic encephalopathy 537632017 G92.8 see aboveincre ased confusion at hospital is currently A and O x 3 with poor short term recallnow invokedmon itor level of insight Impaired cognition 71143 6002 R41.89 appreciate psych eval and recswill invoke HCPmonitor level of insight as patient is alert and oriented to person place and time which she states easily Asthenia 16800486 R53.1 coordinate with therapymon itor fall risk [id number] DANIELLE GOFF CNP [facility] [address] [facility] [place] [address] 01/13/2025 11:16:32 01/20/2025 11:19:42 Chronic diastolic heart failure 877762348 I50.32 stable, euvolemic- she denies any chest pain or shortness of breathweig ht stable 160-170Con tinue furosemide 20 mg qdMonitor resp. status, fluid status, wts and labs. Chronic ob structive pulmonary disease 06745225 J43.8 stablemoni tor respirator y status and albuterol utilizatio n Gastroesop hageal reflux disease 566948242 K21.9 protonix 40 mg qdmonitor sx control Mixed anxi ety and depressive disorder 295175408 F41.8 mood stable.Con tinue escitalopr am 30 mg qd, trazadone 25 mg qhs and 12.5 mg BID prn.psych prn Restless legs 69377444 G 25.81 StableCont inue requip 2 mg bid Impaired cognition 96436 6002 R41.89 appreciate psych eval and recsHCP invoked.mo nitor level of insight as patient is alert and oriented to person place and time which she states easily Toxic meta bolic encephalopathy 617318087 G92.8 see aboveincre ased confusion at hospital is currently A and O x 3 with poor short term recallnow invokedmon itor level of insight Asthenia 76206782 R53.1 coordinate with therapymon itor fall risk Respirator y syncytial virus infection 68694728 B33.8 [id number] No acute respirator y distress noted.Cont inue supportive care.Monit or respirator y status. [id number] FRIEDA ANDERSON J[place] [address] [facility] [place] [address] 04/14/2025 05:51:03 04/16/2025 13:06:59 Chronic diastolic heart failure 133810488 I50.32 Continue furosemide 20 mg qdMonitor resp. status, fluid status, wts and labs. Chronic ob structive pulmonary disease 65990795 J43.8 stablemoni tor respirator y status and albuterol utilizatio n Gastroesop hageal reflux disease 308405715 K21.9 protonix 40 mg qdmonitor sx control Mixed anxi ety and depressive disorder 079615631 F41.8 Continue escitalopr am 30 mg qd, trazadone 25 mg qhs and 12.5 mg BID prn.psych prn Restless legs 64451687 G 25.81 Continue requip 2 mg bid Impaired cognition 40422 6002 R41.89 ? underlying dementiawa x and wane with confusione xpect decline Chronic ki dney disease 090477132 N18.2 Renal function is at baselinemo nitor labsavoid nephrotoxi c drugs Essential hypertension 27087094 I10 lasix 20 mg qd prn for weight gain associated with chfstarted on norvasc 2.5 mg qd Health Concerns Section Related Observation LastModified by Organization Detai ls LastModified Time None Recorded Concern Status LastModified by Organization Details LastModified Time None Recorded Advance Directives Directive Y: Payers Insurance Date Sequence Insurance Name Policy Number Policy Anders Covered Member ID Anders Member ID Guarantor Name 04/14/2025 1 [place]: [facility] Shreya M Gravel [id number] Shreya Gravel 04/14/2025 2 [place] [id number] Shreya Gravel [id number] Shreya Gravel Notes Date Note Type Note Provider Name and Address Organization Details Recorded Time 11/25/2024 text/html Patient is a 89 yo female resident due for routine rounding also seen for acute rounding with complaint of chronic pain. PMH chf, a flutter, gerd, anemia, copd, chronic pain Rex Bass MD [address] [place] [address], [address], [place], [address], [facility] 11/25/2024 12:03:07 12/14/2024 text/html Patient is an [...] in underlying cognitive impairment Rex Bass MD [address] [place] [address], [address], [place], [address], [facility] 12/14/2024 10:00:50 01/06/2025 text/html Patient is [...] belong throughout day. Rex Bass MD [address] [facility], [address], [place], [address], [facility] 01/06/2025 11:42:10 01/13/2025 text/html Shreya is an [...] leg syndrome, depression, anxiety, LLE cellulitis. DANIELLE GOFF, SILVERER [address] [facility], [address], [place], [address], [facility] 01/13/2025 11:53:02 04/14/2025 text/html 89 yo female LTC resident seen for routine rounding. Medically she is stable, she is at her baseline in NAD. FRIEDA ANDERSON [address] [facility], [address], [place], [address], [facility] 04/15/2025 19:03:46 OBGyn Episode No OBEpisode recorded.
--- OUTSIDE RECORDS SUMMARY | 2025-06-30 05:23 | XMS_ITS | Patient Health Record ---
Author Organization [facility] Address [address] [place] [address] Care Team Providers Care Construction Economist Name Role Phone Shelia DIAZ, Rex Primary Care Provider Unavailab sarahi Lu Holder Unavailable [phone] Allergies No Known Allergies Reason For Referral [...] Problem Information temporarily unavailable Unspecified atherosclerosis of [place] arteries of extremities, bilateral legs (I70.203) Active [...] X ray : Foot, right 2V 06/06/2012 26874-DFFVEVC NAIL, 6 OR MORE 03/27/2012 57582-GMTPWKN NAIL, 6 OR MORE 08/22/2012 04574-NPCTWWX NAIL, 6 OR MORE 06/13/2012 96012-TQIIVDT NAIL, 6 OR MORE 08/28/2011 03138-PDLTVKK NAIL, 6 OR MORE 11/13/2011 23740-QSMZCCG NAIL, 6 OR MORE 01/18/2012 07151-SXSCCWX NAIL, 6 OR MORE 11/06/2012 95554-SGNHGDW NAIL, 6 OR MORE 02/10/2013 35075-IEZOIJB NAIL, 6 OR MORE 04/14/2013 18968-IITKPZT NAIL, 6 OR MORE 05/21/2013 48026-SLQZQOE NAIL, 6 OR MORE 07/09/2013 93879-MATNLRV NAIL, 6 OR MORE 10/13/2013 32024-NYXIWUF NAIL, 6 OR MORE 04/23/2014 37232-BCAKMCB NAIL, 6 OR MORE 01/15/2014 37484-HJUZANG NAIL, 6 OR MORE 07/22/2014 21998-BQWUTET NAIL, 6 OR MORE 10/26/2014 39182-IOEGFHO NAIL, 6 OR MORE 02/11/2015 29445-NAZQRJY NAIL, 6 OR MORE 04/19/2015 93441-QHDHLHU NAIL, 6 OR MORE 07/12/2015 89417-FONKLGQ NAIL, 6 OR MORE 10/18/2015 24898-GLAOOAZ NAIL, 6 OR MORE 12/20/2015 05227-GKHNMCI NAIL, 6 OR MORE 02/28/2016 68089-XKDDXFN NAIL, 6 OR MORE 06/15/2016 79281-NMIXVJN NAIL, 6 OR MORE 09/12/2016 16494-JINDDZQ NAIL, 6 OR MORE 12/05/2016 30613-QZZYYUZ NAIL, 6 OR MORE 02/22/2017 24819-UTGPUOK NAIL, 6 OR MORE 10/30/2017 11730-ADSXLOJ NAIL, 6 OR MORE 02/04/2018 81146-LUDXNAW NAIL, 6 OR MORE 04/24/2018 87162-HWHUNMS NAIL, 6 OR MORE 07/23/2018 95253-SLHWITJ NAIL, 6 OR MORE 05/24/2017 85807-PSIDIXE NAIL, 6 OR MORE 08/06/2017 24499-EBDIUAS NAIL, 6 OR MORE 05/29/2019 22941-THEOENR NAIL, 6 OR MORE 11/11/2019 08839-MELOAYO NAIL, 6 OR MORE 03/02/2020 86466-SAHXZYU NAIL, 6 OR MORE 05/04/2020 91101-MIJWYIK NAIL, 6 OR MORE 07/08/2020 44001-BKGUDXJ NAIL, 6 OR MORE 02/17/2021 06258-ZPAMJLN NAIL, 6 OR MORE 06/20/2021 79742-FUNQSOQ NAIL, 6 OR MORE 11/07/2021 96310-JNAOICD NAIL, 6 OR MORE 01/16/2022 72833-SBFRPGC NAIL, 6 OR MORE 03/20/2022 36640-YEPTZZL NAIL, 6 OR MORE 06/12/2022 96050-OTKIKQQ NAIL, 6 OR MORE 09/12/2022 98042-TEYTKWB NAIL, 6 OR MORE 01/22/2023 01272-UYAIOPV NAIL, 6 OR MORE 05/29/2023 72381-Pwxh Destruction, -14 01/22/2023 12034-Glms Destruction, -14 07/02/2023 03823-Qqak Destruction, -14 10/16/2022 60502-Vort Destruction, -14 06/12/2022 70061-Zhiu Destruction, -14 09/12/2022 33872-Rsva Destruction, -14 01/16/2022 08495-Jtnw Destruction, -14 12/19/2021 97940-Uhuo Destruction, -14 11/07/2021 56028-Fxka Destruction, -14 08/01/2021 35843-Makv Destruction, 10-2007/08/2020 27990-Zptx Destruction, 10-2001/11/2021 26258-Yzif Destruction, 10-2008/23/2020 88591-Ytfn Destruction, 10-2005/04/2020 32508-Bptf Destruction, 10-2003/02/2020 49069-Gncs Destruction, 10-2009/18/2019 62435-Xndl Destruction, 10-2011/11/2019 02239-Sfrr Destruction, 10-2007/15/2019 52986-Puqh Destruction, 10-2005/29/2019 15145-Xtiz Destruction, 10-2007/02/2017 83019-Qdpz Destruction, 10-2007/23/2018 38390-Vxvm Destruction, 10-2009/10/2018 41345-Inui Destruction, 10-2003/26/2017 47472-Bniz Destruction, 10-2005/24/2017 56628-Cmmm Destruction, 10-2012/05/2016 57131-Teri Destruction, 10-2008/01/2016 11839-Ctub Destruction, 10-2010/24/2016 89926-Uixx Destruction, 10-2006/15/2016 87770-Nqqr Destruction, 10-2004/05/2016 87739-Mykk Destruction, 10-2012/20/2015 07893-Xwrv Destruction, 10-2001/24/2016 58508-Iahr Destruction, 10-2010/18/2015 04377-Ktgf Destruction, 10-2008/23/2015 29517-Ynvy Destruction, 10-2004/14/2013 96685-Pmug Destruction, 10-2005/21/2013 16357-Xjyhvpkk Plate 09/01/2013 93556-Phhawhby Plate 07/09/2013 33639-Wjwsdsfw Plate 02/10/2013 06119-Qimbnlrx Plate 12/30/2012 42553-Sesjsixt Plate 10/26/2014 44095-Bcdzbght Plate 08/26/2014 33425-Iattuyzn Plate 07/22/2014 01499-Wkxifpty Plate 04/23/2014 33360-Euevngzi Plate 12/04/2013 02954-Hokjfkip Plate 07/10/2011 10551-Ulucwjgs Plate 01/18/2012 20371-Ixiskzfp Plate 10/16/2011 23905-Wiseulvd Plate 10/25/2011 95445-Wkebjyoj Plate 11/08/2011 38237-Fkjmxyru Plate 07/11/2012 25296-Njgbwswf Plate 09/25/2012 03981-Pkfcwdur Plate 08/22/2012 50813-Nstpippa Plate 03/27/2012 19852-Upkprxwu Plate 05/09/2012 86126-Nmvdolka Plate 06/13/2012 70773-Alyqohex Plate 05/31/2015 76289-Lqcjezcd Plate 07/12/2015 92165-Cwifuegg Plate 04/19/2015 39503-Zsknevfg Plate 02/11/2015 23261-Bcbwlvgh Plate 03/04/2014 19000-Sqjobrig Plate 11/25/2014 86980-Dqfzulzt Plate 06/15/2016 36345-Azahwkvy Plate 03/26/2017 15367-Sidefnzx Plate 08/06/2017 70741-Tdpghlxn Plate 05/29/2019 83748-Csorjdne Plate 09/18/2019 46621-Cavpirrz Plate 07/15/2019 05679-Tramjzcv Plate 07/08/2020 70808-Ewdjkywj Plate 01/11/2021 74768-Snydquuq Plate 02/17/2021 23436-Nbkxrgeo Plate 03/31/2021 62057-Xlwsqzvd Plate 06/20/2021 72234-Imnjuvbe Plate 01/16/2022 30679-Zfdsctgc Plate 11/07/2021 78863-Kyumqwdw Plate 04/24/2022 30909-Tllbugda Plate Each Additional 37293-Kkhhwnef Plate Each Additional 10/2021 90330-Lfgegibc Plate Each Additional 09/2022 24649-Uoqbncna Plate Each Additional 02091-Rgueiomw Plate Each Additional 04/2021 22063-Ixscdayp Plate Each Additional 11/2019 60139-Iyxbnbqm Plate Each Additional 89122-Byinujox Plate Each Additional 04/2012 01351-Miizliiw Plate Each Additional 12/2011 57039-Jcyvzmaq Plate Each Additional 09917-Dnjnkjov Plate Each Additional 04/2013 77099- Debride <25 sq cm 02/10/2013 33429- Debride <25 sq cm 12/30/2012 78900- Debride <25 sq cm 11/06/2012 13130- Debride <25 sq cm 05/21/2013 22061- Debride <25 sq cm 04/14/2013 76743- Debride <25 sq cm 12/04/2013 50383- Debride <25 sq cm 04/23/2014 07776- Debride <25 sq cm 05/27/2014 48712- Debride <25 sq cm 07/22/2014 15625- Debride <25 sq cm 08/26/2014 38083- Debride <25 sq cm 10/26/2014 08999- Debride <25 sq cm 06/06/2012 40142- Debride <25 sq cm 03/27/2012 05447- Debride <25 sq cm 06/13/2012 66850- Debride <25 sq cm 08/22/2012 30095- Debride <25 sq cm 09/25/2012 87072- Debride <25 sq cm 08/28/2011 88949- Debride <25 sq cm 07/10/2011 86092- Debride <25 sq cm 02/15/2012 50749- Debride <25 sq cm 12/20/2011 22385- Debride <25 sq cm 11/25/2014 16307- Debride <25 sq cm 01/04/2015 21300- Debride <25 sq cm 02/11/2015 70599- Debride <25 sq cm 03/15/2015 87234- Debride <25 sq cm 04/19/2015 17537- Debride <25 sq cm 07/12/2015 21181- Debride <25 sq cm 01/18/2017 35082- Debride <25 sq cm 09/12/2016 31845- Debride <25 sq cm 05/04/2020 12735- Debride <25 sq cm 01/11/2021 56730- Debride <25 sq cm 10/30/2017 47730- Debride <25 sq cm 07/02/2017 14086- Debride <25 sq cm 09/10/2018 78625- Debride <25 sq cm 05/29/2019 71249- Debride <25 sq cm 02/17/2021 49023- Debride <25 sq cm 03/31/2021 28983- Debride <25 sq cm 06/20/2021 26837- Debride <25 sq cm 11/07/2021 52395- Debride <25 sq cm 08/01/2021 72091- Debride <25 sq cm 11/28/2021 58941- Debride <25 sq cm 06/12/2022 26324- Debride <25 sq cm 04/24/2022 07823- Debride <25 sq cm 03/20/2022 94578- Debride <25 sq cm 09/12/2022 90191- Debride <25 sq cm 11/13/2022 85230- Debride <25 sq cm 01/22/2023 84168- Debride <25 sq cm 10/16/2022 47341- Debride <25 sq cm 07/02/2023 80620-YUFZTIO SKIN/TISSUE 05/22/2024 28954-GPKEAUC SKIN/TISSUE 01/15/2014 68746-FZRUHFR SKIN/TISSUE 03/04/2014 99604 I&D ABSCESS- SIMPLE,SINGLE 012 82863 I&D ABSCESS- SIMPLE,SINGLE 013 95798-HAZM SKIN LESIONS, 2 TO 4 05/22/20 24 18215- Removal of Foreign Body, Subcut 1 35229-Idyyolos Benign Lesion 0.5cm 11/08 91736-Cscnziui Benign Lesion 0.5cm 10/25- Ganglion Cyst Injection/Aspiratio n 01/18/2012- Ganglion Cyst Injection/Aspiratio n 07/02/2017 Future Test Test Name Order Date 63026-Ppypzibn Plate Each Additional Insurance Providers Payer Name Payer Address Payer Phone Subscriber Number Group Number Insured Name Patient Relationship to Insured Coverage Start Date Coverage End Date Medicare National Govt Svcs Inc [address] [place] [address] [id number] Shreya Calvert Self - patient is the insured 1 [employer] Blue [employer] [address] [place] [address] [phone] [id number] Shreya Calvert Self - patient is the [...] Rehab 05/2024 [facility], rehab- leg swelling 05/2023 [facility] fell down 02/2023 [facility] ran over by scooter 02/2023 [facility] heart issues 08/2022 MM Cellulitis 07/2022 [facility] heart issues 03/2022 [facility]- cellulitis, day stay, 3 week therap y 01/2022 [facility], rehab- fell 05/2021 [facility] for cellulitis for 5 days 9 [facility] fall 05/05/18 [facility] Cholycyst[facility] 2015 [place] [facility], tripped bumped head 08/2015 Admitted to [facility] overnight;GERD 03/2015 [facility] - Emergency 11/23/14 & 11/24 Dehydration 11/2011
[2025-06-30 06:08] LABS: Hematocrit 36.4 % (37.0-47.0); Hemoglobin 12.1 g/dl (12.0-16.0); Imm Gran Abs Auto 0.02 X10*3/uL (0.00-0.03); Imm Gran Pct Auto 0.3 % (0.0-0.4); Lymphocytes Absolute Auto 1.6 X10*3/uL (1.2-4.9); Mean Corpuscular HGB Conc 33.2 g/dl (31.0-35.0); Mean Corpuscular Hemoglobin 32.8 pg (27.0-33.0); Mean Corpuscular Volume 98.6 fL (80.0-98.0); NRBC Abs Auto 0.000 X10*3/uL (0.0-0.012); NRBC Pct Auto 0.0 /100WBC (0.0-0.2); Platelet Count 197 X10*3/uL (160-400); Red Blood Count 3.69 X10*6/uL (4.20-5.50); White Blood Count 6.0 X10*3/uL (4.8-10.8)
[2025-06-30 06:13] LABS: Anion Gap 12 (12-20); Blood Urea Nitrogen 20 mg/dL (9-16); Calcium 9.1 mg/dL (8.4-10.2); Carbon Dioxide 24 mmol/L (22-29); Chloride 109 mmol/L (96-108); Estimated Glomerular Filt Rate 59; Potassium 4.0 mmol/L (3.3-5.1); Sodium 141 mmol/L (135-145)
== END 2025-06-30 05:20 | disposition home or self-care (01) ==
LOC: HO.MMNH3L 05:19
PROVIDERS: Visit Provider Student in an Organized Health Care Education/Training Program
DX: N39.0 Urinary tract infection, site not specified (principal); F03.93 Unspecified dementia, unspecified severity, with mood disturbance; I50.40 Unspecified combined systolic (congestive) and diastolic (congestive) heart failure
CPT/HCPCS: 36415; 80048; 85025

== ENCOUNTER 2025-07-12 06:46 | Outpatient (REF) | payer MEDICARE, MEDICAID, SELFPAY ==
[2025-07-12 06:33] LABS: MANUAL DIFF FLAG NO
[2025-07-12 06:39] LABS: Hematocrit 36.8 % (37.0-47.0); Hemoglobin 11.8 g/dl (12.0-16.0); Imm Gran Abs Auto 0.01 X10*3/uL (0.00-0.03); Imm Gran Pct Auto 0.2 % (0.0-0.4); Lymphocytes Absolute Auto 1.3 X10*3/uL (1.2-4.9); Mean Corpuscular HGB Conc 32.1 g/dl (31.0-35.0); Mean Corpuscular Hemoglobin 32.3 pg (27.0-33.0); Mean Corpuscular Volume 100.8 fL (80.0-98.0); NRBC Abs Auto 0.000 X10*3/uL (0.0-0.012); NRBC Pct Auto 0.0 /100WBC (0.0-0.2); Platelet Count 168 X10*3/uL (160-400); Red Blood Count 3.65 X10*6/uL (4.20-5.50); White Blood Count 4.4 X10*3/uL (4.8-10.8)
--- OUTSIDE RECORDS SUMMARY | 2025-07-12 07:02 | XMS_ITS | Clinical Summary ---
Author Organization [facility] Address [address] [place] [address] Phone Care Team Providers Care Knitting Tester Name Role Phone Rex Bass MD Primary Care Provider [phone] Allergies Active Allergy Reactions Criticality Noted Date [...] Problem Noted Date Diagnosed Date Atrial flutter ([facility] V24, [facility] V28) 2021 Overview (08/28/2024): Last Assessment & [...] CMS/HCC V28) DX:Chronic obstructive pulm onary disease ([facility]) Chronic pain DX:Chronic pain Compression fracture of L1 l umbar vertebra ([facility] V24, [facility] V28) DX:Compression fra cture of L1 lumbar vertebra ([facility]); COMMENT: and t12 vertebra Degeneration macular DX:Degenera tion macular Depression DX:Depression Diabetes type 2, controlled ([facility] V24, [facility] V28) DX:Diabetes type 2, controll ed ([facility]) Diverticulitis DX:Diverticuliti s Elevated LFTs DX:Elevated LFTs [...] 2 obesi ty Osteoporosis DX:Osteoporosis Primary hyperparathyroidism ([facility] V24) DX:Primary hyperparathyroidi sm ([facility]) Recurrent falls DX:Recurrent fal ls Restless legs [...] Documents on File Type Date Recorded Patient Remote Operations Producer Expl anation Health Care Decision (hx) 09/26/2023 AD FARNSWORTH DIRECTIVE Health Care Decision (hx) 05/09/2021 AD FARNSWORTH DIRECTIVE Health Care Decision (hx) 05/09/2021 AD FARNSWORTH DIRECTIVE Care Teams Knitting Tester Relationship Specialty Start Date End Date Rex Bass MD [address] [place] [address], [phone] PCP - General 04/23/24
--- OUTSIDE RECORDS SUMMARY | 2025-07-12 07:03 | XMS_ITS | Patient Health Record ---
Author Organization [facility] Address [address] [place] [address] Care Team Providers Care De Icer Installer Name Role Phone Shelia DIAZ, Rex Primary Care Provider Unavailab sarahi Lu Holder Unavailable [phone] Allergies No Known Allergies Reason For Referral [...] Problem Information temporarily unavailable Unspecified atherosclerosis of [place] arteries of extremities, bilateral legs (I70.203) Active [...] X ray : Foot, right 2V 06/06/2012 45971-MYSBFTB NAIL, 6 OR MORE 03/27/2012 58633-BSNNPZU NAIL, 6 OR MORE 08/22/2012 64168-WKNYJVL NAIL, 6 OR MORE 06/13/2012 87219-RXQXTPJ NAIL, 6 OR MORE 08/28/2011 88561-ISMLKBR NAIL, 6 OR MORE 11/13/2011 54584-BKUUNOG NAIL, 6 OR MORE 01/18/2012 14416-RQCJTPF NAIL, 6 OR MORE 11/06/2012 37087-BKDXSNS NAIL, 6 OR MORE 02/10/2013 22003-IKRJCUQ NAIL, 6 OR MORE 04/14/2013 33508-DTJQZRM NAIL, 6 OR MORE 05/21/2013 21704-MAEBIVM NAIL, 6 OR MORE 07/09/2013 24634-UZUQVUT NAIL, 6 OR MORE 10/13/2013 35569-GVNIVKF NAIL, 6 OR MORE 04/23/2014 98130-XRAFAMQ NAIL, 6 OR MORE 01/15/2014 80556-KAMTULW NAIL, 6 OR MORE 07/22/2014 29276-GBKPWLX NAIL, 6 OR MORE 10/26/2014 36567-RTXPIEP NAIL, 6 OR MORE 02/11/2015 97614-FHADCSC NAIL, 6 OR MORE 04/19/2015 04872-RLCEKIR NAIL, 6 OR MORE 07/12/2015 53836-ORGHQHR NAIL, 6 OR MORE 10/18/2015 19376-BVEAFEV NAIL, 6 OR MORE 12/20/2015 00232-EIDSQEM NAIL, 6 OR MORE 02/28/2016 20416-AZYDDOW NAIL, 6 OR MORE 06/15/2016 28109-CROKLZK NAIL, 6 OR MORE 09/12/2016 62488-ORVWOED NAIL, 6 OR MORE 12/05/2016 75784-ALYQAHQ NAIL, 6 OR MORE 02/22/2017 62519-KUEUENR NAIL, 6 OR MORE 10/30/2017 70655-NNEJFZK NAIL, 6 OR MORE 02/04/2018 39943-RLJFHYG NAIL, 6 OR MORE 04/24/2018 90481-AUYYSPF NAIL, 6 OR MORE 07/23/2018 95932-ZTDDYMN NAIL, 6 OR MORE 05/24/2017 31347-QTTHZFA NAIL, 6 OR MORE 08/06/2017 49672-SYWIZGD NAIL, 6 OR MORE 05/29/2019 17072-PUBWDSO NAIL, 6 OR MORE 11/11/2019 74846-KIEJPZN NAIL, 6 OR MORE 03/02/2020 04703-DKETGRL NAIL, 6 OR MORE 05/04/2020 94237-XGGBVXY NAIL, 6 OR MORE 07/08/2020 17057-LERKMRS NAIL, 6 OR MORE 02/17/2021 00150-BNBLWRW NAIL, 6 OR MORE 06/20/2021 50854-QSSOLYT NAIL, 6 OR MORE 11/07/2021 08251-AOZPMVR NAIL, 6 OR MORE 01/16/2022 49855-LSGQRKF NAIL, 6 OR MORE 03/20/2022 80753-AEKSJRA NAIL, 6 OR MORE 06/12/2022 32941-XXXASQM NAIL, 6 OR MORE 09/12/2022 57584-FHCIIUZ NAIL, 6 OR MORE 01/22/2023 04630-QZTERBS NAIL, 6 OR MORE 05/29/2023 84958-Izkf Destruction, -14 01/22/2023 91383-Glsc Destruction, -14 07/02/2023 99727-Wnjj Destruction, -14 10/16/2022 21598-Eybm Destruction, -14 06/12/2022 30514-Gdxy Destruction, -14 09/12/2022 65198-Efsg Destruction, -14 01/16/2022 18638-Fiqn Destruction, -14 12/19/2021 88734-Rkam Destruction, -14 11/07/2021 43243-Chks Destruction, -14 08/01/2021 62871-Hjkl Destruction, 10-2007/08/2020 93304-Cpfa Destruction, 10-2001/11/2021 54420-Fhcr Destruction, 10-2008/23/2020 61906-Ujum Destruction, 10-2005/04/2020 34480-Qexm Destruction, 10-2003/02/2020 98140-Raja Destruction, 10-2009/18/2019 53983-Fpzc Destruction, 10-2011/11/2019 89272-Kesf Destruction, 10-2007/15/2019 30093-Emlo Destruction, 10-2005/29/2019 07161-Ksfa Destruction, 10-2007/02/2017 19364-Yrhc Destruction, 10-2007/23/2018 28889-Jwtc Destruction, 10-2009/10/2018 52107-Vozv Destruction, 10-2003/26/2017 25567-Byoe Destruction, 10-2005/24/2017 24363-Ejtw Destruction, 10-2012/05/2016 64328-Bigz Destruction, 10-2008/01/2016 75110-Gugr Destruction, 10-2010/24/2016 86813-Etdj Destruction, 10-2006/15/2016 60408-Eixr Destruction, 10-2004/05/2016 46646-Qwnq Destruction, 10-2012/20/2015 49101-Zldl Destruction, 10-2001/24/2016 90095-Gtbl Destruction, 10-2010/18/2015 68178-Xosz Destruction, 10-2008/23/2015 94307-Xlsl Destruction, 10-2004/14/2013 38713-Qewo Destruction, 10-2005/21/2013 37922-Romhhpfu Plate 09/01/2013 12518-Hkqxuaga Plate 07/09/2013 43986-Ydcpbsja Plate 02/10/2013 86935-Nxvedvtq Plate 12/30/2012 78126-Cywvcqrr Plate 10/26/2014 52748-Iczlilhn Plate 08/26/2014 40606-Llixhlns Plate 07/22/2014 49057-Gkcyrbxz Plate 04/23/2014 33609-Nsxsgkxr Plate 12/04/2013 94587-Ntwqplww Plate 07/10/2011 95802-Jtgtnhfg Plate 01/18/2012 17235-Duetdsqi Plate 10/16/2011 37940-Cdquishu Plate 10/25/2011 17588-Kbzyzofh Plate 11/08/2011 28612-Hiblotbn Plate 07/11/2012 22738-Xeftlyru Plate 09/25/2012 61263-Sdruttlq Plate 08/22/2012 72342-Fuyfhyyg Plate 03/27/2012 83420-Xpjuwxnf Plate 05/09/2012 53186-Pynwmpui Plate 06/13/2012 15013-Rghmwoxz Plate 05/31/2015 40902-Bhnywchd Plate 07/12/2015 57159-Uqqsijot Plate 04/19/2015 48375-Akljlaxo Plate 02/11/2015 97355-Vquqrlny Plate 03/04/2014 32604-Vafvqsjh Plate 11/25/2014 49149-Cchbycii Plate 06/15/2016 21126-Zymqsymq Plate 03/26/2017 40896-Saxwcieq Plate 08/06/2017 83787-Meouvwvu Plate 05/29/2019 51557-Avfjojyq Plate 09/18/2019 34507-Hzdqoojq Plate 07/15/2019 05867-Thvtofvv Plate 07/08/2020 85316-Ejcigmbw Plate 01/11/2021 29406-Bgkhmcxs Plate 02/17/2021 41447-Arhorjss Plate 03/31/2021 27925-Vyfnftjn Plate 06/20/2021 12789-Ioanmxnl Plate 01/16/2022 37752-Ccvxizaz Plate 11/07/2021 47767-Dsyqieac Plate 04/24/2022 33182-Pdrfhuvn Plate Each Additional 94231-Qeenfezt Plate Each Additional 10/2021 66581-Fpktgqgg Plate Each Additional 09/2022 54826-Anzlpobv Plate Each Additional 60598-Udtiaddo Plate Each Additional 04/2021 56531-Qsctdnsm Plate Each Additional 11/2019 76873-Uwbmqfbv Plate Each Additional 49585-Krzbslwz Plate Each Additional 04/2012 91783-Itwweceu Plate Each Additional 12/2011 28898-Rtjfyiao Plate Each Additional 98237-Htshimdz Plate Each Additional 04/2013 49430- Debride <25 sq cm 02/10/2013 01054- Debride <25 sq cm 12/30/2012 63719- Debride <25 sq cm 11/06/2012 32736- Debride <25 sq cm 05/21/2013 28379- Debride <25 sq cm 04/14/2013 30651- Debride <25 sq cm 12/04/2013 00193- Debride <25 sq cm 04/23/2014 68981- Debride <25 sq cm 05/27/2014 60224- Debride <25 sq cm 07/22/2014 25093- Debride <25 sq cm 08/26/2014 09222- Debride <25 sq cm 10/26/2014 97984- Debride <25 sq cm 06/06/2012 45788- Debride <25 sq cm 03/27/2012 30111- Debride <25 sq cm 06/13/2012 27474- Debride <25 sq cm 08/22/2012 09885- Debride <25 sq cm 09/25/2012 69165- Debride <25 sq cm 08/28/2011 82511- Debride <25 sq cm 07/10/2011 04486- Debride <25 sq cm 02/15/2012 36754- Debride <25 sq cm 12/20/2011 95845- Debride <25 sq cm 11/25/2014 43727- Debride <25 sq cm 01/04/2015 95858- Debride <25 sq cm 02/11/2015 31998- Debride <25 sq cm 03/15/2015 20036- Debride <25 sq cm 04/19/2015 35073- Debride <25 sq cm 07/12/2015 96342- Debride <25 sq cm 01/18/2017 16423- Debride <25 sq cm 09/12/2016 99554- Debride <25 sq cm 05/04/2020 17491- Debride <25 sq cm 01/11/2021 84067- Debride <25 sq cm 10/30/2017 49748- Debride <25 sq cm 07/02/2017 29840- Debride <25 sq cm 09/10/2018 97548- Debride <25 sq cm 05/29/2019 89270- Debride <25 sq cm 02/17/2021 38635- Debride <25 sq cm 03/31/2021 42162- Debride <25 sq cm 06/20/2021 87032- Debride <25 sq cm 11/07/2021 17412- Debride <25 sq cm 08/01/2021 78209- Debride <25 sq cm 11/28/2021 93419- Debride <25 sq cm 06/12/2022 98946- Debride <25 sq cm 04/24/2022 66690- Debride <25 sq cm 03/20/2022 92908- Debride <25 sq cm 09/12/2022 65573- Debride <25 sq cm 11/13/2022 25531- Debride <25 sq cm 01/22/2023 26693- Debride <25 sq cm 10/16/2022 58080- Debride <25 sq cm 07/02/2023 41471-ZTZWBME SKIN/TISSUE 05/22/2024 88805-FPXJHUB SKIN/TISSUE 01/15/2014 78253-SVRGCFD SKIN/TISSUE 03/04/2014 00237 I&D ABSCESS- SIMPLE,SINGLE 012 07687 I&D ABSCESS- SIMPLE,SINGLE 013 81047-RHZQ SKIN LESIONS, 2 TO 4 05/22/20 24 82745- Removal of Foreign Body, Subcut 1 63229-Axyinvqu Benign Lesion 0.5cm 11/08 54053-Spwiezhv Benign Lesion 0.5cm 10/25- Ganglion Cyst Injection/Aspiratio n 01/18/2012- Ganglion Cyst Injection/Aspiratio n 07/02/2017 Future Test Test Name Order Date 20143-Ozjpzrbc Plate Each Additional Insurance Providers Payer Name Payer Address Payer Phone Subscriber Number Group Number Insured Name Patient Relationship to Insured Coverage Start Date Coverage End Date Medicare National Govt Svcs Inc [address] [place] [address] [id number] Shreya Calvert Self - patient is the insured 1 [employer] Blue Shield [address] [place] [address] [id number] Shreya Calvert Self - patient is the [...] Rehab 05/2024 [facility], [place]hab- leg swelling 05/2023 [facility] [place]2023 [facility] [place] 02/2023 [facility] heart issues 08/2022 MM Cellulitis 07/2022 [facility] [place] 03[place]2022 [facility], day stay, 3 week therap y 01/2022 [facility], [facility]- fell 05/2021 [facility] for cellulitis for 5 days 9 [facility] [place] 05[facility]05/18 [facility] 2015 [place] ER, tripped bumped head 08/2015 Admitted to [facility] [place];GERD 03/2015 [facility] - Emergency 11/23/14 & 11/24 Dehydration 11/2011
--- OUTSIDE RECORDS SUMMARY | 2025-07-12 07:03 | XMS_ITS | Data Portability ---
Author Organization [facility] [employer] [facility], Main Office Address [address] [place] [address] Care Team Providers Care Director Translational Name Role Phone DARRIN STYLES 3RD FLOOR [...] and Address Organization Details Recorded Time Cystitis [id number] Active 2023 FRIEDA ANDERSON [address], [address], [place], [address], [facility] [employer] [facility] 4 14:00:02 Falls [id number] Active 2023 FRIEDA ANDERSON [address], [address], [place], [address], [facility] [employer] 4 14:00:38 Pain of right wrist 6388228838770 00 Active 2023 FRIEDA ANDERSON [address], [place], [address], [facility] [employer] 4 14:00:56 Peripheral venous insufficien cy 64298891 Active 2023 CARLTON MINA, [employer] [address], [address], [place], [address], [place] [facility] 4 14:01:26 Chronic diastolic heart failure 277033909 Active 2023 CARLTON MINA, [employer] [address], [address], [place], [address], [place] [facility] 4 14:01:46 Type 2 diabetes mellitus 09096930 Active 2023 CARLTON MINA, [facility] [address], [address], [place], [address], [place] [facility] 4 14:01:55 Paroxysmal atrial flutter 425329033 Active 2023 PM ANDERSONP [address], [address], [place], [address], [place] [facility] 4 14:02:21 Restless legs syndrome 67580942 Active 2023 MP ANDERSONP [address], [address], [place], [address], [place] [facility] 4 14:02:38 Chronic obstructive pulmonary disease 50952892 Active 2023 FRIEDA ANDERSON [address], [address], [place], [address], [place] [facility] 4 14:02:49 Anemia of chronic disease 519639049 Active 2023 FRIEDA ANDERSON [address], [address], [place], [address], [place] [facility] 4 14:02:59 Mixed anxiety and depressive disorder 675356711 Active 2023 CARLTON MINA, [employer] [address], [address], [place], [address], [place] - [facility] 4 14:17:43 Chronic kidney disease 573656822 Active 2023 MP ANDERSONP [address], [address], [place], [address], [place] [facility] 4 14:19:41 Hyperlipide nena 23252665 Active 2023 FRIEDA ANDERSON [address], [address], [place], [address], [facility] 4 14:26:52 Gastroesoph ageal reflux disease 171774937 Active 2023 FRIEDA ANDERSON [address], [address], [place], [address], [facility] 4 14:27:49 Chronic back pain 244319775 Active 2023 FRIEDA ANDERSON [address], [address], [place], [address], [facility] 4 14:40:47 Vitamin D deficiency 16950339 Active 2023 FRIEDA ANDERSON [address], [address], [place], [address], [facility] 4 19:41:46 Bradycardia 20253556 Active 2023 FRIEDA ANDERSON [address], [address], [place], [address], [facility] 4 19:44:32 Asthenia 12434433 Active 2023 FRIEDA ANDERSON [address], [address], [place], [address], [facility] 4 19:53:05 Bleeding from nose 758287637 Active 2023 FRIEDA ANDERSON [address], [address], [place], [address], [facility] 4 15:36:07 Osteomyelit is 97056454 Active 2023 Naomi Todd MD [address], [address], [place], [address], [facility] 4 17:53:51 Headache 53762188 Active 2023 WISAM SILVA NP [address], [address], [place], [address], [facility] 4 09:49:14 Essential hypertensio n 04167634 Active 2024 Rex Bass MD [address] [place] [address], [address], [place], [address], [facility] 5 09:46:16 Problem Notes None recorded. Medical Equipment None Reported. Allergies Allergen ID Allergen Name Allergen Category Reaction Reaction Severity Criticality Documentation Date Start Date Code Code System Note Provider Name and Address Organization Details Recorded Time 90015 lisinopri l medicatio n Not available Not available Not available 10/22/2023 29642 RxNorm Naomi Todd MD [address] [place] [address], [address], [place], [address], [facility] 4 17:53:46 Medications Name Sig Start Date [...] 165.1 cm 129/73 mm[Hg] Rex Bass MD [address] [place] [address], [address], [place], [address], [facility] 11/25/2024 11:53:24 Date Recorded Body height Body temperature Heart rate Respiratory rate Systolic And Diastolic Provider Name and Address Organization Details Last Updated DateTime 5 165.1 cm 97.4 [degF] 84 /min 18 /min 142/70 mm[Hg] Rex Bass MD [address], [address], [place], [address], [facility] 5 09:39:14 Date Recorded Body height Body temperature Respiratory rate Oxygen saturation Oxygen saturation in Arterial blood by Pulse oximetry Systolic And Diastolic Provider Name and Address Organization Details Last Updated DateTime 5 165.1 cm 97.9 [degF] 18 /min 97 % 97 % 130/70 mm[Hg] FRIEDA ANDERSON [address], [address], [place], [address], [facility] 5 18:58:17 Social History Question Answer Notes LastModified by Organizat ion Details LastModified Time Tobacco Smoking Status Former Smoker quit 30 yrs ago FRIEDA ANDERSON [address], [address], [place], [address], [facility] 10/24/2023 14:39:11 Do You Have An Advance Directive? Yes Information not available 10/24/2023 What Is Your Level Of Caffeine Consumption? Occasional Information not available 10/24/2023 What Is Your Code Status? DNR/DNI Information not available 10/24/2023 [facility], Had Been Living At [facility] Information not available 04/13/2024 Legal Guardian? No Informati on not available 10/24/2023 Do You Have A Medical Power Of Molecular Modeler? Yes Information not available 10/24/2023 What Was [...] Recorded Time Tdap 2 completed Flor Luna [facility] 12/27/2023 11:11:29 Pneumococcal conjugate PCV 13 7 completed Flor Luna [facility] 12/27/2023 11:11:41 Influenza, adjuvanted, quadrivalent, PF 3 completed Flor Luna [facility] 12/27/2023 11:11:59 COVID-19, mRNA, LNP-S, bivalent, PF, 30 mcg/0.3 mL dose 1 completed Flor Luna [facility] 12/27/2023 11:12:12 COVID-19, mRNA, LNP-S, bivalent, PF, 30 mcg/0.3 mL dose 1 completed Flor Jeremy [facility] 12/27/2023 11:12:20 COVID-19, mRNA, LNP-S, bivalent, PF, 30 mcg/0.3 mL dose 1 completed Flor Luna [facility] 12/27/2023 11:12:29 COVID-19, mRNA, LNP-S, bivalent, PF, 30 mcg/0.3 mL dose 2 completed Florgwen Luna [facility] 12/27/2023 11:12:48 Past Encounters Encounter ID Performer Location Encounter Start Date Encounter Closed Date Diagnosis/Indication Diagnosis SNOMED-CT Code Diagnosis ICD10 Code Diagnosis IMO Codes Diagnosis Note [id number] FRIEDA ANDERSON [address] [place] [address] 10/23/2023 08:21:08 10/28/2023 15:39:59 Cystitis 61643382 N30.90 With MDROInitia lly with Vanco and cefepime however cultures growing MDRO Klebsiella Started meropenem 1 g q12 for 7 days.start ed 10/19 for 7 full days of treatment to end 10/26.probi otic added Falls 261314431 R29.6 likely multifacto rial from neuropathy , frailty, arthritis and LE edemaCT negative for any fractures. CT Head/Brain W/O Contrast negativeIn itiated safety precaution per facility protocolPT /OT eval and tx. Peripheral venous insufficiency 37813075 I87.2 Venous insufficie ncy of both lower extremitie sDoppler LLE no DVT, symmetric erythema without increased warmth or tenderness , appears similar to previous picture taken, low suspicion for superimpos ed cellulitis Chronic di astolic heart failure 910546323 I50.32 preserved EFeuvolemi ctorsemide held in acute care d/t hypotensio n and bradycardi c 50'smonito r BP and need to restartmon itor weights Chronic ob structive pulmonary disease 54029860 J44.9 Albuterol Sulfate Nebulizati on Solution (2.5 MG/3ML) Q6 prnAdvair Thlwtu387- 50 mcg Q12 Restless l egs syndrome 04546690 G25.81 ROPINIRole HCl Tablet 2 MG BID Type 2 jr betes mellitus 84291160 E11.21 continue monitor glucose,Li spro SSI coverageGa bapentin Capsule 300 MG at bedtime for neuropathy pain.trama dol 25 mg q12 prn Paroxysmal atrial flutter 404090847 I48.92 not on anticoagAm iodarone HCl Tablet 200 MG dailymonit or HR Mixed anxi ety and depressive disorder 419733297 F41.8 Escitalopr am Oxalate Tablet 30 mg dailymonit or for mood and behavorial changes. Anemia of chronic disease 622662247 D63.8 Ferrous Sulfate Tablet 325 dailymonit or labs prn Hyperlipidemia 56978043 E78.5 Atorvastat in 20 mg dailymonit or labs Gastroesop hageal reflux disease 243383499 K21.9 Pantoprazo le40 mg dailymonit or for gi upset. Chronic back pain 779101 002 G89.29 tramadol 25 mg Q12 prngabapen tin 300 mg at hs Vitamin D deficiency 347 51377 E55.9 Cholecalci ferol 2000 UNIT daily Pain of right wrist 3169 467675 25820 M25.531 x-ray was ordered which was negative.P T/OT eval and tx Bradycardia 70533437 R00 .1 in acute care HR as low as 40snormal UT/QRS/QTc prolongati on..T nonspecifi c isolated T wave inversions on single lead V2 were present on recent study from 07/19/2023 . No evidence of acute ischemic changes. Chronic ki dney disease 016950431 N18.9 Renal function is at baselinemo nitor labsavoid nephrotoxi c drugs Asthenia 70725378 R53.1 hx of multiple fallsambul ates with walkerPT/O T eval and treat [id number] Naomi Todd MD [address] [place] [address] 10/24/2023 16:17:28 11/06/2023 11:12:59 Cystitis 15998721 N30.00 Continue meropenem 1 g q 12 hrs to complete 7 d course on 10/26.Monit or for recurrent sxs. Falls 423481248 R29.6 Likely multifacto rial from neuropathy , frailty, arthritis and LE edemaVery deconditio christoph.Needs PT/OT for strengthen ing, balance, gait training, safety and function.C ontinue fall precaution s.Monitor for safety. Peripheral venous insufficiency 66513275 I87.2 Almost at baseline per pt.Continu e local care and elevation. Chronic di astolic heart failure 746781873 I50.32 Appears euvolemic. Monitor for need for diuretics. Monitor resp. status, fluid status, wts and labs. Chronic ob structive pulmonary disease 95991948 J43.8 No current sxs.Contin ue Advair 250/50 BID and albuterol nebs q 6 hrs prnMonitor resp status. Restless l egs syndrome 87107957 G25.81 Continue ropinirole 2 mg BIDMonitor sxs. Type 2 jr betes mellitus 73705724 E11.21 Diet controlled .Sugar <150 yest, not checked previously .Continue gabapentin 300 MG qhs and tramadol q 12 hrs prn for neuropathy Monitor fingerstic ks BID x 1 wk with SSI, d/c if not needing coverage. Paroxysmal atrial flutter 871606908 I48.92 Rate in good control on amiodarone 200 mg qdNot on AC due to age and fall riskMonito r HR Mixed anxi ety and depressive disorder 709652652 F41.8 Mood down today due to concerns about living situation. Continue escitalopr am 30 mg qdMonitor mood.Consu lt psych prn Anemia of chronic disease 294889094 D63.8 Continue FeSO4 325 mg qd with vitamin C 250 mg qd for absorption .Monitor labs Hyperlipidemia 78299688 E78.49 Continue atorvastat in 20 mg qdMonitor labs yearly Gastroesop hageal reflux disease 350742144 K21.9 No current sxs.Contin ue pantoprazo le 40 mg qdMonitor sxs Chronic ki dney disease 847753829 N18.9 In hx, but renal function WNL yest.Cindy nue to avoid nephrotoxi c meds as able.Monit or labs.Renal consult prn. Chronic back pain 417718 002 G89.29 Continue tramadol 25 mg q 12 hrs prn and gabapentin 300 mg qhsMonitor sxs. [id number] CARLTON MINA, FRIEDA CLIFFORD JENSEN [address] [place] [address] [place] [address] 10/29/2023 07:42:54 11/01/2023 08:26:34 Cystitis 18390091 N30.90 With MDROInitia lly with Vanco and cefepime however cultures growing MDRO Klebsiella Started meropenem 1 g q12 for 7 days.start ed 10/19 for 7 full days of treatment to end 10/26.- completed denies any dysuriapro biotic added [place] 146404023 R29.6 continue to work with PT/OT for strengthen inglikely multifacto rial from neuropathy , frailty, arthritis and LE edemaCT negative for any fractures. CT Head/Brain W/O Contrast negativeIn itiated safety precaution per facility protocol Peripheral venous insufficiency 69756645 I87.2 BLE edema left greater than right Venous insufficie ncy of both lower extremitie sDoppler LLE no DVT, symmetric erythema without increased warmth or tenderness , appears similar to previous picture taken, low suspicion for superimpos ed cellulitis Chronic di astolic heart failure 376268940 I50.32 preserved EFeuvolemi ctorsemide held in acute care d/t hypotensio n and bradycardi c 50'smonito r BP and need to restartmon itor weights Chronic ob structive pulmonary disease 65431874 J44.9 Albuterol Sulfate Nebulizati on Solution (2.5 MG/3ML) Q6 prnAdvair Kzrebo593- 50 mcg Q12 Restless l egs syndrome 71966892 G25.81 ROPINIRole HCl Tablet 2 MG BID Type 2 jr betes mellitus 00665794 E11.21 continue monitor glucose,Li spro SSI coverageGa bapentin Capsule 300 MG at bedtime for neuropathy pain.trama dol 25 mg q12 prn Paroxysmal atrial flutter 195242657 I48.92 not on anticoagAm iodarone HCl Tablet 200 MG dailymonit or HR Mixed anxi ety and depressive disorder 439933271 F41.8 Escitalopr am Oxalate Tablet 30 mg dailymonit or for mood and behavorial changes. Anemia of chronic disease 829823682 D63.8 Ferrous Sulfate Tablet 325 dailymonit or labs prn Hyperlipidemia 17131522 E78.5 Atorvastat in 20 mg dailymonit or labs Gastroesop hageal reflux disease 192391540 K21.9 Pantoprazo le40 mg dailymonit or for gi upset. Chronic back pain 239559 002 G89.29 tramadol 25 mg Q12 prngabapen tin 300 mg at hs Vitamin D deficiency 347 76244 E55.9 Cholecalci ferol 2000 UNIT daily Pain of right wrist 3169 625333 00174 M25.531 x-ray was ordered which was negative.P T/OT eval and tx Bradycardia 80361348 R00 .1 in acute care HR as low as 40snormal UT/QRS/QTc prolongati on..T nonspecifi c isolated T wave inversions on single lead V2 were present on recent study from 07/19/2023 . No evidence of acute ischemic changes. Chronic ki dney disease 571212800 N18.9 Renal function is at baselinemo nitor labsavoid nephrotoxi c drugs Asthenia 47999827 R53.1 hx of multiple fallsambul ates with walkerPT/O T eval and treat [id number] FRIEDA ANDERSON [address] [place] [address] 11/01/2023 08:04:11 11/06/2023 11:37:03 Cystitis 57489549 N30.90 With MDROInitia lly with Vanco and cefepime however cultures growing MDRO Klebsiella Started meropenem 1 g q12 for 7 days.start ed 10/19 for 7 full days of treatment to end 10/26.- completed denies any dysuriapro biotic added Pruritus of vagina 76117 003 L29.3 Reports vaginal itchiness for over [...] BID for 7 days and re eval. [id number] FRIEDA ANDERSON [address] [address] 11/04/2023 12:13:42 11/06/2023 12:50:39 Falls 805403180 R29.6 see/HPiwit nessed fallwith injury/lac eration above left eye.no LOC Facial laceration 918114 008 S01.81XA above left eye/about 2 cm in lengthblee ding controlled , wrapped in gauze dressing. [id number] FRIEDA ANDERSON [address] [address] 11/06/2023 09:19:58 11/13/2023 12:17:34 Falls 553924934 R29.6 see/HPiwit nessed fallwith injury/lac eration above left eye.no LOCContinu e PT/OT Facial laceration 872393 008 S01.81XA above left eye/about 2 cm in lengthappe ars to be about 10-12 small dissolvabl e sutures in placedenie s any visual changes or headache.n ursing to monitor healing Pruritus of vagina 83276 003 L29.3 Reports vaginal itchiness for over [...] days and re eval. Chronic back pain 839373 002 G89.29 denies any new discomfort post falltramad ol 25 mg Q12 prngabapen tin 300 mg at hs Asthenia 71998190 R53.1 hx of multiple fallsambul ates with walkerPT/O T continue [id number] FRIEDA ANDERSON [address] [place] [address] 11/08/2023 13:54:21 11/13/2023 13:10:32 Falls 026952623 R29.6 on 11/04/23wit nessed fallwith injury/lac eration above left eye.no LOCContinu e PT/OT Facial laceration 672738 008 S01.81XA above left eye/about 2 cm in lengthappe ars to be about 10-12 small di-solvabl e sutures in placedenie s any visual changes or headache.n ursing to monitor healing Pruritus of vagina 93756 003 L29.3 Reports vaginal itchiness for over [...] assure med is applied. Chronic back pain 359121 002 G89.29 denies any new discomfort post falltramad ol 25 mg Q12 prngabapen tin 300 mg at hs Asthenia 71122215 R53.1 hx of multiple fallsambul ates with walkerPT/O T continue [id number] FRIEDA ANDERSON [address] [place] [address] 11/13/2023 10:59:21 11/15/2023 09:29:54 Falls 225688096 R29.6 on 11/04/23wit nessed fallwith injury/lac eration above left eye.no LOCContinu e PT/OT Facial laceration 803327 008 S01.81XA healingabo ve left eye/about 2 cm in lengthappe ars to be about 10-12 small di-solvabl e sutures in placedenie s any visual changes or headache.n ursing to monitor healing Pruritus of vagina 91171 003 L29.3 improving, continues with triamcinol one topical cream BID Chronic back pain 956210 002 G89.29 denies any new discomfort post falltramad ol 25 mg Q12 prngabapen tin 300 mg at hs Asthenia 22646227 R53.1 hx of multiple fallsambul ates with walkerPT/O T continues [id number] FRIEDA ANDERSON [address] [address] 11/18/2023 07:58:48 11/21/2023 13:26:13 Falls 796855953 R29.6 on 11/04/23wit nessed fallwith injury/lac eration above left eye.no LOCContinu e PT/OT Facial laceration 887174 008 S01.81XA healingabo ve left eye/about 2 cm in lengthappe ars to be about 10-12 small di-solvabl e sutures in placedenie s any visual changes or headache.n ursing to monitor healing Pruritus of vagina 50848 003 L29.3 improving, continues with triamcinol one topical cream BID Chronic back pain 384144 002 G89.29 denies any new discomfort post falltramad ol 25 mg Q12 prngabapen tin 300 mg at hs Asthenia 80876342 R53.1 hx of multiple fallsambul ates with walkerPT/O T continues [id number] FRIEDA ANDERSON [address] [address] 11/21/2023 13:49:57 11/25/2023 12:31:48 Falls 459833591 R29.6 on 11/04/23wit nessed fallwith injury/lac eration above left eye.no LOCContinu e PT/OT Facial laceration 031551 008 S01.81XA 11/04 s/p fall for laceration above left eye.healin g no s/sx of infectiona rolan left eye/about 2 cm in lengthappe ars to be about 10-12 small di-solvabl e sutures in placedenie s any visual changes or headache.n ursing to monitor healing Pruritus of vagina 41076 003 L29.3 improving, continues with triamcinol one topical cream BID Chronic back pain 512020 002 G89.29 denies any new discomfort post falltramad ol 25 mg Q12 prngabapen tin 300 mg at hs Asthenia 40689175 R53.1 hx of multiple fallsambul ates with walkerPT/O T continues [id number] FRIEDA ANDERSON [address] [address] 11/26/2023 07:45:18 11/28/2023 10:55:36 Falls 793979994 R29.6 on 11/04/23wit nessed fallwith injury/lac eration above left eye.no LOCContinu e PT/OT Facial laceration 284267 008 S01.81XA 11/04 s/p fall for laceration above left eye.healin g no s/sx of infectiona rolan left eye/about 2 cm in lengthappe ars to be about 10-12 small di-solvabl e sutures in placedenie s any visual changes or headache.n ursing to monitor healing Pruritus of vagina 88635 003 L29.3 triamcinol one topical cream BIDkeep area clean and dry. Chronic back pain 294242 002 G89.29 tramadol 25 mg Q12 prngabapen tin 300 mg at hs Asthenia 39323503 R53.1 hx of multiple fallsambul ates with walkerPT/O T continues [id number] FRIEDA ANDERSON [address] [address] 11/29/2023 08:06:37 12/03/2023 11:20:10 Falls 469863520 R29.6 on 11/04/23wit nessed fallwith injury/lac eration above left eye.no LOCContinu e PT/OT Facial laceration 512624 008 S01.81XA healed11/04 s/p fall for laceration above left eye.above left eye/about 2 cm in lengthdeni es any visual changes or headache. Pruritus of vagina 46370 003 L29.3 triamcinol one topical cream BIDkeep area clean and dry. Chronic back pain 911548 002 G89.29 tramadol 25 mg Q12 prngabapen tin 300 mg at hs Asthenia 32143117 R53.1 hx of multiple fallsambul ates with walkerPT/O T continues [id number] FRIEDA ANDERSON [address] [address] 12/04/2023 07:53:49 12/10/2023 10:21:37 Falls 781451164 R29.6 on 11/04/23wit nessed fallwith injury/lac eration above left eye.no LOCContinu e PT/OT Facial laceration 176715 008 S01.81XA healed11/04 s/p fall for laceration above left eye.above left eye/about 2 cm in lengthdeni es any visual changes or headache. Pruritus of vagina 57164 003 L29.3 triamcinol one topical cream BIDkeep area clean and dry. Chronic back pain 282587 002 G89.29 tramadol 25 mg Q12 prngabapen tin 300 mg at hs Asthenia 40804956 R53.1 hx of multiple fallsambul ates with walkerPT/O T continues Cellulitis of right lower limb 7717995746 7062274 L03.115 see hpistarted keflex on 11/30/23 for 7 days with probiotic for 10 daysencour aged to elevated lower extremitie s to elevate edemamonit or for resolution [id number] FRIEDA ANDERSON [address] [address] 12/11/2023 10:06:59 12/13/2023 13:01:47 Falls 767694056 R29.6 no recent falls reported Facial laceration 513088 008 S01.81XA healed11/04 s/p fall for laceration above left eye.above left eye/about 2 cm in lengthdeni es any visual changes or headache. Pruritus of vagina 72312 003 L29.3 triamcinol one topical cream BIDkeep area clean and dry. Chronic back pain 548733 002 G89.29 tramadol 25 mg Q12 prngabapen tin 300 mg at hs Cellulitis of right lower limb 5639214275 1801779 L03.115 resolved. [id number] FRIEDA ANDERSON [address] [address] 12/18/2023 09:20:38 12/20/2023 14:10:33 Chronic diastolic heart failure 506940184 I50.32 preserved EFeuvolemi ctorsemide held in acute care d/t hypotensio n and bradycardi c 50'smonito r BP and need to restartmon itor weights Mixed anxi ety and depressive disorder 070528889 F41.8 stable and pleasantEs citalopram Oxalate Tablet 30 mg dailymonit or for mood and behavorial changes. Type 2 jr betes mellitus 53309713 E11.21 continue monitor glucose,Li spro SSI coverageGa bapentin Capsule 300 MG at bedtime for neuropathy pain.trama dol 25 mg q12 prn [id number] FRIEDA ANDERSON [address] [address] 12/25/2023 11:16:29 12/30/2023 16:09:32 Chronic diastolic heart failure 745963711 I50.32 preserved EFBLE +1was on torsemide but was d/c in acute caremonito r weights- [facility] to [facility] Mixed anxi ety and depressive disorder 398841049 F41.8 stable and pleasantEs citalopram Oxalate Tablet 30 mg dailymonit or for mood and behavorial changes. Type 2 jr betes mellitus 68761486 E11.21 continue monitor glucose,Li spro SSI coverageGa bapentin Capsule 300 MG at bedtime for neuropathy pain.trama dol 25 mg q12 prn [id number] Naomi Todd MD [address] [address] 12/26/2023 19:19:22 01/31/2024 14:21:17 Cystitis 14671687 N30.00 Completed course of meropenem 1 g q 12 hrs on 10/26.Monit or for recurrent sxs. Falls 096419420 R29.6 Continues to be a high fall risk and needs CG and sometimes an assist for transfers. No longer getting acute PT/OT services, restart as able.Cindy nue fall precaution s.Monitor for safety. Peripheral venous insufficiency 91545760 I87.2 No current sxs.Contin ue local care and elevation. Chronic di astolic heart failure 962849177 I50.32 Appears euvolemic. Monitor for need for diuretics. Monitor resp. status, fluid status, wts and labs. Chronic ob structive pulmonary disease 81827741 J43.8 Continues with no sxs.Contin ue Advair 250/50 BID and albuterol nebs q 6 hrs prnMonitor resp status. Type 2 jr betes mellitus 50496576 E11.21 Sugars were all <150 when checked for 3 days.Cindy nue gabapentin 300 MG qhs and tramadol q 12 hrs prn for neuropathy Monitor fingerstic ks prn and HgA1C q 3-6 months Paroxysmal atrial flutter 139668244 I48.92 Rate remains in good control on amiodarone 200 mg qdNo AC due to age and fall riskMonito r HR Restless l egs syndrome 56997324 G25.81 Continue ropinirole 2 mg BIDMonitor sxs. Mixed anxi ety and depressive disorder 691103029 F41.8 Mood stableCont inue escitalopr am 30 mg qdMonitor mood.Consu lt psych prn Anemia of chronic disease 472065081 D63.8 Hgb has been stable.Con tinue FeSO4 325 mg qd with vitamin C 250 mg qd for absorption .Monitor labs Hyperlipidemia 76302010 E78.49 Continue atorvastat in 20 mg qdMonitor labs yearly Gastroesop hageal reflux disease 887709532 K21.9 No current sxs.Contin ue pantoprazo le 40 mg qdMonitor sxs Chronic ki dney disease 211549088 N18.1 Renal function remains WNLContinu e to avoid nephrotoxi c meds as able.Monit or labs.Renal consult prn. Chronic back pain 122072 002 G89.29 Continue tramadol 25 mg q 12 hrs prn and gabapentin 300 mg qhsMonitor sxs. [id number] FRIEDA ANDERSON [address] [place] [address] [place] [address] 01/01/2024 08:18:43 01/06/2024 15:39:22 Chronic diastolic heart failure 549533650 I50.32 preserved EFBLE +1was on torsemide but was d/c in acute caremonito r weights- no recent weight in [facility] updated to obtain current weight Mixed anxi ety and depressive disorder 334883864 F41.8 stable and pleasantEs citalopram Oxalate Tablet 30 mg dailymonit or for mood and behavorial changes. Type 2 jr betes mellitus 19254844 E11.21 continue monitor glucose,Li spro SSI coverageGa bapentin Capsule 300 MG at bedtime for neuropathy pain.trama dol 25 mg q12 prn Spasm 12364472 R25.2 12/31/23 nursing reported pt was having left upper leg/buttoc k pain/spasm tramadol changed from q12 to q6 and robaxin 500 mg q 6 prn addedtoday pt states that medication was effectivew ill monitor for worsening sx [id number] [facility] ANDERSON [facility] [address] [place] [address] 01/08/2024 13:26:41 01/10/2024 11:20:05 Chronic diastolic heart failure 973663726 I50.32 no weight gain notedconti nue furosemide 10 mg dailymonit or labs , weightsmon itor for cardiopulm onary sx 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 Type 2 jr betes mellitus 81710048 E11.21 continue monitor glucose,co ntinue Lispro SSI coverageco ntinue Gabapentin Capsule 300 MG at bedtime for neuropathy pain.cindy nue tramadol 50 mg q 8 prn Spasm 02076009 R25.2 to LLE and glutealpai n has improvedRo baxin 500 mg discontinu e -it was ordered for short term use onlycontin ue tramadol 50 mg prn [id number] [facility]EDA ANDERSON [facility] [address] [place] [phone] 01/15/2024 09:55:29 01/27/2024 16:00:52 Cervical radiculopathy 84435815 M54.12 start diclofenac gel daily and q8 prncontinu e tramadol 50 mg Q6 prncontinu e gabapentin 300 mg at hs add 300 mg QDrefer to physical therapy for eval and tx [id number] FRIEDA ANDERSON [address] [address] 01/22/2024 09:25:19 01/28/2024 11:32:54 Cervical radiculopathy 83170595 M54.12 continue diclofenac gel daily and q8 prncontinu e tramadol 50 mg Q6 prncontinu e gabapentin 300 mg at hs add 300 mg QDper therapy patient neck pain is chronic and she was previously treated and recommende d Chronic di astolic heart failure 497650707 I50.32 monitor labs , weights , edemamonit or for cardiopulm onary sxencourag ed leg elevation/ wraps as needed. Gastroesop hageal reflux disease 476086379 K21.9 Pantoprazo le40 mg dailymonit or for gi upset. Mixed anxi ety and depressive disorder 975761061 F41.8 continue Escitalopr am Oxalate Tablet 30 mg dailymonit or for mood and behavorial changes. Type 2 jr betes mellitus 51105646 E11.21 continue monitor glucose,co ntinue Lispro SSI coverageco ntinue Gabapentin Capsule 300 MG at bedtime for neuropathy pain.cindy nue tramadol 50 mg q 8 prn [id number] FRIEDA ANDERSON [address] [address] 5 01/27/2024 10:53:32 02/17/2024 12:46:54 Cervical radiculopathy 91564405 M54.12 continue diclofenac gel daily and q8 prncontinu e tramadol 50 mg Q6 prncontinu e gabapentin 300 mg at hs add 300 mg QD Chronic di astolic heart failure 412370859 I50.32 monitor labs , weights , edemamonit or for cardiopulm onary sxencourag ed leg elevation/ wraps as needed. Gastroesop hageal reflux disease 333298469 K21.9 Pantoprazo le40 mg dailymonit or for gi upset. Mixed anxi ety and depressive disorder 635512387 F41.8 continue Escitalopr am Oxalate Tablet 30 mg dailymonit or for mood and behavorial changes. Type 2 jr betes mellitus 91912584 E11.21 bgl have been stablecont inue monitor glucose,co ntinue Lispro SSI coverageco ntinue Gabapentin Capsule 300 MG at bedtime for neuropathy pain.cindy nue tramadol 50 mg q 8 prn Falls 971116643 R29.6 no recent fallsConti nues to be a high fall risk and needs CG and sometimes an assist for transfers. she has reduce functional mobility to left lower extremity due to pain in her ankle.Alba ent would benefit from an AFO to provide support to LLE/ankle and reduce pain. [id number] FRIEDA ANDERSON [address] [address] 01/30/2024 10:23:09 02/04/2024 14:43:29 Bleeding from nose 122549825 R04.0 see hpistart afrin 2 spray to right nares q12 x 5days.janice loera for recurrence monitor BP/rebound congestion [id number] FRIEDA ANDERSON [address] [address] 02/05/2024 09:31:19 02/11/2024 09:17:30 Bleeding from nose 897668533 R04.0 resolved. Cervical radiculopathy 20539184 M54.12 continue diclofenac gel daily and q8 prncontinu e tramadol 50 mg Q6 prncontinu e gabapentin 300 mg at hs add 300 mg QDper therapy patient neck pain is chronic and she was previously treated and recommende d Chronic di astolic heart failure 649750500 I50.32 monitor labs , weights , edemamonit or for cardiopulm onary sxencourag ed leg elevation/ wraps as needed. Gastroesop hageal reflux disease 430697025 K21.9 Pantoprazo le40 mg dailymonit or for gi upset. Mixed anxi ety and depressive disorder 442620842 F41.8 continue Escitalopr am Oxalate Tablet 30 mg dailymonit or for mood and behavorial changes. Type 2 jr betes mellitus 81186710 E11.21 continue monitor glucose,co ntinue Lispro SSI coverageco ntinue Gabapentin Capsule 300 MG at bedtime for neuropathy pain.cindy nue tramadol 50 mg q 8 prn [id number] Naomi Todd MD [address] [address] 02/28/2024 13:56:25 03/10/2024 11:09:37 Pain in left foot 2626446205 50194 M79.672 With new deformity of left great [...] q 8 hrs prn for pain. Diarrhea 25423703 R19.7 Only has happened one time so far, possibly from stress.Ord ered imodium prnMonitor [id number] FRIEDA ANDERSON [address] [place] [address] 03/04/2024 14:57:51 03/10/2024 11:43:05 Pain in left foot 2199545610 17209 M79.672 deformity of left great toe, with [...] for pain. Blister of toe without infection 42507992 S90.425A continue warm soaks as aboveclean se left 2nd toe with soap and warm water, hydrogen peroxideap ply petroleum and cover with gauze or non stick dressing daily and prnmonitor for healing. [id number] FRIEDA ANDERSON [address] [place] [address] 03/06/2024 14:42:26 03/10/2024 12:16:05 Mixed anxiety and depressive disorder 481429153 F41.8 continue Escitalopr am Oxalate Tablet 30 mg dailywill adjust trazodone and increased from 12.5 mg to 25 mg scheduled at HS per psych rec.and continue prn trazodone 12.5 mg bid prn, anxiety for 14 days.monit or for mood and behavorial changes. [id number] FRIEDA ANDERSON [address] [address] 03/10/2024 10:17:01 03/16/2024 15:45:17 Pain in left foot 2598124627 17988 M79.672 deformity of left great toe, with rubbing and irritation between toes and possible early cellulitis .continue doxy 100 mg BID x 7 days with probiotic BIDcontinu e warm soaks with epsom salts BID for 15- pt tells me that she has not soaked feet. nirsing updated to make sure patient soaks foot BIDElevate as much as possible.c ontinue Gauze between toes to protect.Scar sullivan consult, if health drive not coming next week, will consult Dr. Tanner [phone] can have wound care see her for further advice- will be seen by wound on ontinu e APAP 650 mg q 6 hrs prn and tramadol 50 mg q 8 hrs prn for pain.she does not have hx of gout but will order uric acid d/t her still having pain despite abx use for 4 days. Blister of toe without infection 30062956 S90.425A continue warm soaks as aboveclean se left 2nd toe with soap and warm water, hydrogen peroxidedr essing changes to Alginate/D CD QD [id number] FRIEDA ANDERSON [address] [address] 03/16/2024 09:19:11 03/19/2024 16:19:43 Pain in left foot 0124095955 92110 M79.672 baseline deformity due to hammer toeabx [...] infection. Mixed anxi ety and depressive disorder 551129998 F41.8 continue Escitalopr am Oxalate Tablet 30 mg dailyrepor ts although medication s have been helpful that she continues with difficultl y falling asleepand evening anxiety.in creased trazodone to 25 mg at HScontinue trazodone to 12.5 mg q12 prnmonitor for mood and behavorial changes. [id number] FRIEDA ANDERSON [address] [address] 03/17/2024 10:40:42 03/20/2024 08:44:03 Bleeding from nose 556827080 R04.0 minor nasal bleeding after blowing her nosewill discussed avoiding nose blowing, gently sniff insteadavo id picking nose or rubbing noseafrin nasal 1 spray BID prnsaline nasal spray BID Pain of to e of left foot [id number] 66947 M79.675 reports pain to left great toe and second great toenailini tially flinching on exam when toe(s) were touched , states pain requesting toenail to be cut on 2ndshe provided clippers, I trimmed and file all toenail, she reports toes feeling much betterther e was no observatio n of facial grimacing, flinching or pulling away during procedure. [id number] MD DARRIN Perry JENSEN [address] [place] [phone] 03/30/2024 16:40:06 04/01/2024 10:48:39 Falls 436404092 R29.6 Continues to be a high fall risk.Getti ng OT for mobility and safety, primarily wheelchair level.Cont inue fall precaution s.Monitor for safety. Peripheral venous insufficiency 85284343 I87.2 No current sxs.Contin ue local care and elevation. Chronic di astolic heart failure 640532303 I50.32 Appears euvolemic. Continue furosemide 10 mg qdMonitor resp. status, fluid status, wts and labs. Chronic ob structive pulmonary disease 07243789 J43.8 Continues with no sxs.Contin ue Advair 250/50 BID and albuterol nebs q 6 hrs prnMonitor resp status. Type 2 jr betes mellitus 66254918 E11.21 Stable on no meds.Last HgA1C was 6.1 in 06/2023.Con tinue gabapentin 300 MG qhs and tramadol qhs scheduled and BID prn for neuropathy Monitor fingerstic ks prn and HgA1C q 3-6 months Paroxysmal atrial flutter 723161926 I48.92 Rate remains in good control on amiodarone 200 mg qdNo AC due to age and fall riskMonito r HR Restless l egs syndrome 70100748 G25.81 Continue ropinirole 2 mg BIDMonitor sxs. Mixed anxi ety and depressive disorder 076205836 F41.8 Mood sl. down due to pain not improving. Continue escitalopr am 30 mg qdMonitor mood.Consu lt psych prn Anemia of chronic disease 676700263 D63.8 Hgb remains stable.Con tinue FeSO4 325 mg qd with vitamin C 250 mg qd for absorption .Monitor labs Hyperlipidemia 44581898 E78.49 Continue atorvastat in 20 mg qdMonitor labs yearly Gastroesop hageal reflux disease 556508559 K21.9 No current sxs.Contin ue pantoprazo le 40 mg qdMonitor sxs Chronic ki dney disease 530781563 N18.2 Renal function remains stableCont inue to avoid nephrotoxi c meds as able.Monit or labs.Renal consult prn. Chronic back pain 287316 002 G89.29 Continue meds as above.Janice tor sxs. Bleeding from nose 44971 6005 R04.0 Resolved. Pain of to e of left foot 1065597759 63345 M79.675 No improvemen t since toenails cut on 03/17.Left 2nd toe still red and tender.Esteban leung have nursing set up appt with Dr. Lu Holder who has offices in [facility], [place] and [place]. [facility] [place] # is [phone] 12Continue local care until then. Using padding between toes to keep the pressure off.Monito r for signs of infection. Will schedule hs tramadol and keep 50 mg BID prn [id number] FRIEDA ANDERSON DARRIN STYLES [address] [place] [address] [place] [address] 04/03/2024 11:03:23 04/28/2024 07:31:02 Cellulitis of foot 975014008 L03.119 left footsuspec gloria do to sx.recentl y treated for cellulitis left great toe with doxycyclin ewill start cephalexin 250 mg Q 6 hr for 5 days.will add probiotic BID for 7 daysmonito r for resolution . [id number] MD DARRIN Perry JENSEN [address] [place] [address] [place] [address] 04/13/2024 17:19:14 04/28/2024 08:01:43 Osteomyelitis 03728645 M86.272 Continue ertapenem 1 gm IV qd [...] Dr. Lu Holder who has offices in [facility] and [place]. [place] # is Falls [id number] R29.6 Continues to be a high fall risk.Able to restart rehab after hospitaliz ation.Need s PT/OT for strengthen ing, balance, gait training, safety and function.C ontinue fall precaution s.Monitor for safety. Chronic di astolic heart failure 624906161 I50.32 Appears euvolemic. Continue furosemide 10 mg qdMonitor resp. status, fluid status, wts and labs. Chronic ob structive pulmonary disease 37309974 J43.8 Continues with no sxs.Contin ue Advair 250/50 BID and albuterol nebs q 6 hrs prnMonitor resp status. Type 2 jr betes mellitus 88106283 E11.21 Sugars inpt were all <100Last HgA1C was 6.1 in 06/2023.Con tinue gabapentin 300 MG qhs and other pain meds as above for neuropathy .Monitor fingerstic ks prn and HgA1C q 3-6 months Paroxysmal atrial flutter 075308560 I48.92 Rate remains in good control on amiodarone 200 mg qdNo AC due to age and fall riskMonito r HR Restless l egs syndrome 32092723 G25.81 Continue ropinirole 2 mg BIDMonitor sxs. Mixed anxi ety and depressive disorder 650772486 F41.8 Mood sl. down due to pain not improving. Continue escitalopr am 30 mg qd, trazadone 25 mg qhs and 12.5 mg BID prn.Monito r mood.Consu lt psych prn Anemia of chronic disease 767148353 D63.8 Hgb remains stable.Con tinue FeSO4 325 mg qd with vitamin C 250 mg qd for absorption .Monitor labs Hyperlipidemia 20268586 E78.49 Continue atorvastat in 20 mg qdMonitor labs yearly Gastroesop hageal reflux disease 112583288 K21.9 No current sxs.Contin ue pantoprazo le 40 mg qdMonitor sxs Chronic ki dney disease 984823948 N18.2 Renal function remains stableCont inue to avoid nephrotoxi c meds as able.Monit or labs.Renal consult prn. Chronic back pain 547143 002 G89.29 Continue meds as above.Janice tor sxs. Peripheral venous insufficiency 26933938 I87.2 No current sxs.Contin ue local care and elevation. [id number] FRIEDA ANDERSON [address] [place] [address] 04/16/2024 08:54:52 04/28/2024 08:26:12 Osteomyelitis 34444274 M86.272 Continue ertapenem 1 gm IV qd [...] Dr. Lu Holder who has offices in [facility], [place] and [place]. [place] # is Falls [id number] R29.6 Continues to be a high fall risk.Able to restart rehab after hospitaliz ation.Need s PT/OT for strengthen ing, balance, gait training, safety and function.C ontinue fall precaution s.Monitor for safety. Chronic di astolic heart failure 530478352 I50.32 Appears euvolemic. Continue furosemide 10 mg qdMonitor resp. status, fluid status, wts and labs. Chronic ob structive pulmonary disease 20710660 J43.8 Continues with no sxs.Contin ue Advair 250/50 BID and albuterol nebs q 6 hrs prnMonitor resp status. Paroxysmal atrial flutter 038796711 I48.92 Rate remains in good control on amiodarone 200 mg qdNo AC due to age and fall riskMonito r HR Restless l egs syndrome 18963743 G25.81 Continue ropinirole 2 mg BIDMonitor sxs. Mixed anxi ety and depressive disorder 697147050 F41.8 Continue escitalopr am 30 mg qd, trazadone 25 mg qhs and 12.5 mg BID prn.Monito r mood.Consu lt psych prn Anemia of chronic disease 103158005 D63.8 Continue FeSO4 325 mg qd with vitamin C 250 mg qd for absorption .Monitor labs Hyperlipidemia 45111630 E78.49 Continue atorvastat in 20 mg qdMonitor labs yearly Gastroesop hageal reflux disease 652622996 K21.9 No current sxs.Contin ue pantoprazo le 40 mg qdMonitor sxs [id number] FRIEDA ANDERSON [address] [place] [address] [place] [address] 04/20/2024 10:04:50 04/28/2024 08:59:08 Osteomyelitis 01351237 M86.272 left foot 2nd toe with woundgrima [...] Dr. Lu Holder who has offices in [facility] and [place]. [place] # is Chronic di astolic heart failure 979761574 I50.32 Appears euvolemic. Continue furosemide 10 mg qdMonitor resp. status, fluid status, wts and labs. Chronic ob structive pulmonary disease 79845987 J43.8 breathing easy and unlabored. Continue Advair 250/50 BID and albuterol nebs q 6 hrs prnMonitor resp status. Mixed anxi ety and depressive disorder 520757194 F41.8 her mood is normal reports eating and drinking ok.Continu e escitalopr am 30 mg qd, trazadone 25 mg qhs and 12.5 mg BID prn.Monito r mood.Consu lt psych prn [id number] Naomi Todd MD [facility] [place] [address] [place] [address] 04/23/2024 22:13:47 04/30/2024 18:09:13 Osteomyelitis 04309792 M86.272 Continue ertapenem 1 gm IV qd [...] Lu Holder's office again. Has offices in [facility] and [place]. [place] # is Falls [id number] R29.6 Is still a high fall risk.Needs PT/OT for strengthen ing, balance, gait training, safety and function.C ontinue fall precaution s.Monitor for safety. Chronic di astolic heart failure 153475263 I50.32 Remains euvolemic. Continue furosemide 10 mg qdMonitor resp. status, fluid status, wts and labs. Chronic ob structive pulmonary disease 37482426 J43.8 Continues with no sxs.Contin ue Advair 250/50 BID and albuterol nebs q 6 hrs prnMonitor resp status. Type 2 jr betes mellitus 11991534 E11.21 Sugars were all good, so not being checked regularly. Last HgA1C was 6.1 in 06/2023.Con tinue gabapentin 300 MG qhs and other pain meds as above for neuropathy .Monitor fingerstic ks prn and HgA1C q 3-6 months [id number] GOLDIE TREVIZO JENSEN [address] [facility] [address] [place] [address] 04/30/2024 08:46:54 05/02/2024 09:31:27 Osteomyelitis 89686593 M86.272 left foot 2nd toe with wound, [...] hrs prn.To be followed by wound care.cindy nayee with wound care treatment ordersShstef neumann f/u with Dr. uL Holder who has offices in [facility], [place] and [place]. [place] # is Chronic di astolic heart failure 755102151 I50.32 Appears euvolemic. Continue furosemide 10 mg qdMonitor resp. status, fluid status, wts and labs. Chronic ob structive pulmonary disease 11781523 J43.8 breathing easy and unlabored. Continue Advair 250/50 BID and albuterol nebs q 6 hrs prnMonitor resp status. Mixed anxi ety and depressive disorder 974827644 F41.8 her mood is normal reports eating and drinking ok.Continu e escitalopr am 30 mg qd, trazadone 25 mg qhs and 12.5 mg BID prn.Monito r mood.Consu lt psych prn Gastroesop hageal reflux disease 932772141 K21.9 Reporting some nausea after eating, unsure if may be related to abx use. Discused with nsg., will monitor.Co ntinue pantoprazo le 40 mg qdMonitor sxs Restless l egs syndrome 42186943 G25.81 Continue requip, very helpful Headache 90779598 R51.9 history of, including migraines, for years.Most headaches in the forehead area and above eyes.APAP discussed, helps, would like it sched. if possible.Eloy iscussaarti chow nsg. who also feels it would be a good idea, so will sched. 650 mg tid.Monito r. [id number] FRIEDA ANDERSON [address] [place] [address] rd [place] [address] 05/05/2024 11:02:17 05/06/2024 15:43:52 Osteomyelitis 51040415 M86.272 left foot 2nd toe with wound, [...] Dr. Lu Holder who has offices in [facility], [place] and [place]. [place] # is Chronic di astolic heart failure 880342654 I50.32 Appears euvolemic. Continue furosemide 10 mg qdMonitor resp. status, fluid status, wts and labs. Chronic ob structive pulmonary disease 95944046 J43.8 breathing easy and unlabored. Continue Advair 250/50 BID and albuterol nebs q 6 hrs prnMonitor resp status. Mixed anxi ety and depressive disorder 984026345 F41.8 her mood is normal reports eating and drinking ok.Continu e escitalopr am 30 mg qd, trazadone 25 mg qhs and 12.5 mg BID prn.Monito r mood.Consu lt psych prn Gastroesop hageal reflux disease 516308887 K21.9 Continue pantoprazo le 40 mg qdMonitor sxs Restless l egs syndrome 68694091 G25.81 Continue requip, very helpful Headache 20217735 R51.9 history of, including migraines, for years.Most headaches in the forehead area and above eyes.APAP discussed, helps, would like it sched. if possible.Eloy mo. who also feels it would be a good idea, so will sched. 650 mg tid.Monito r. [id number] FRIEDA ANDERSON [address] [facility] [facility] [address] [place], [place] [address] 05/07/2024 10:05:01 05/11/2024 16:11:56 Osteomyelitis 37274054 M86.272 Continue ertapenem 1 gm IV qd [...] wound care.cindy greene with wound care treatment ordersShsetf ld f/u with Dr. Lu Holder who has offices in [facility] and [place]. [place] # is Chronic di astolic heart failure 696407444 I50.32 Appears euvolemic. Continue furosemide 10 mg qdMonitor resp. status, fluid status, wts and labs. Chronic ob structive pulmonary disease 35228680 J43.8 breathing easy and unlabored. Continue Advair 250/50 BID and albuterol nebs q 6 hrs prnMonitor resp status. Mixed anxi ety and depressive disorder 848382138 F41.8 Continue escitalopr am 30 mg qd, trazadone 25 mg qhs and 12.5 mg BID prn.Monito r mood.Consu lt psych prn Gastroesop hageal reflux disease 553773593 K21.9 Continue pantoprazo le 40 mg qdMonitor sxs Restless l egs syndrome 87594379 G25.81 Continue requip, very helpful Headache 39214757 R51.9 continue tylenol 650 mg prn.encour age to increase oral hydration. [id number] FRIEDA ANDERSON DARRIN STYLES [address] [place] [address] [place] [address] 05/11/2024 16:30:45 05/12/2024 13:09:07 Osteomyelitis 79777312 M86.272 Has been tolerating IV therapy.Co ntinue [...] Dr. Lu Holder who has offices in [facility], [place] and [place]. [place] # is Chronic di astolic heart failure 520384752 I50.32 euvolemic. Continue furosemide 10 mg qdMonitor resp. status, fluid status, wts and labs. Chronic ob structive pulmonary disease 09496895 J43.8 Continue Advair 250/50 BID and albuterol nebs q 6 hrs prnMonitor resp status. Mixed anxi ety and depressive disorder 269280370 F41.8 Continue escitalopr am 30 mg qd, trazadone 25 mg qhs and 12.5 mg BID prn.mood is good today. pleasant on exam.Monit or moodConsul t psych prn Gastroesop hageal reflux disease 404013197 K21.9 Continue pantoprazo le 40 mg qdMonitor sxs Restless l egs syndrome 07765041 G25.81 Continue requip 2 mg bid Headache 37810261 R51.9 continue tylenol 650 mg prn.encour age to increase oral hydration. [id number] FRIEDA ANDERSON DARRIN STYLES [address] [place] [address] [place] [address] 05/15/2024 10:17:08 05/19/2024 11:08:19 Osteomyelitis 53343865 M86.272 Has been tolerating IV therapy.Co ntinue ertapenem 1 gm IV qd until ontin ue probiotic BIDContinu e local care as ordered.Mo nitor labs (CBC, CMP, ESR, and CRP weekly until 05/18) and skin condition. Chronic di astolic heart failure 704515706 I50.32 euvolemic. Continue furosemide 10 mg qdMonitor resp. status, fluid status, wts and labs. Chronic ob structive pulmonary disease 50648655 J43.8 Continue Advair 250/50 BID and albuterol nebs q 6 hrs prnMonitor resp status. Mixed anxi ety and depressive disorder 622662259 F41.8 Continue escitalopr am 30 mg qd, trazadone 25 mg qhs and 12.5 mg BID prn.mood is good today. pleasant on exam.Monit or moodConsul t psych prn Gastroesop hageal reflux disease 852402120 K21.9 Continue pantoprazo le 40 mg qdthere has been no reported GI upset. Restless l egs syndrome 42150875 G25.81 Continue requip 2 mg bid Headache 76779962 R51.9 continue tylenol 650 mg prn.encour age to increase oral hydration. [id number] [facility]ERSON [facility] [address] [place] [address] [place] [address] 05/18/2024 08:44:49 05/19/2024 11:16:27 Osteomyelitis 68424683 M86.272 completed abxcontinu e probiotic BIDContinu e local care as ordered.f/ u appt. with ID later today Chronic di astolic heart failure [id number] I50.32 stableCont inue furosemide 10 mg qdMonitor resp. status, fluid status, wts and labs. Chronic ob structive pulmonary disease 14556599 J43.8 breathing easy and unlabored. Continue Advair 250/50 BID and albuterol nebs q 6 hrs prnMonitor resp status. Mixed anxi ety and depressive disorder 082177481 F41.8 Continue escitalopr am 30 mg qd, trazadone 25 mg qhs and 12.5 mg BID prn.Monito r moodConsul t psych prn Gastroesop hageal reflux disease 821412812 K21.9 Continue pantoprazo le 40 mg qdthere has been no reported GI upset. Restless l egs syndrome 10172632 G25.81 Continue requip 2 mg bid Headache 30927381 R51.9 continue tylenol 650 mg prn.encour age to increase oral hydration. [id number] FRIEDA ANDERSON [address] [place] [address] 05/25/2024 09:58:25 05/29/2024 09:27:36 Osteomyelitis 22662785 M86.272 completed abx Chronic di astolic heart failure 591310172 I50.32 euvolemicC ontinue furosemide 10 mg qdMonitor resp. status, fluid status, wts and labs. Chronic ob structive pulmonary disease 00029354 J43.8 breathing easy and unlabored. Continue Advair 250/50 BID and albuterol nebs q 6 hrs prnMonitor resp status. Mixed anxi ety and depressive disorder 206273777 F41.8 Continue escitalopr am 30 mg qd, trazadone 25 mg qhs and 12.5 mg BID prn.Monito r moodConsul t psych prn Gastroesop hageal reflux disease 953674563 K21.9 Continue pantoprazo le 40 mg qdthere has been no reported GI upset. Restless l egs syndrome 98314997 G25.81 Continue requip 2 mg bid Headache 65212534 R51.9 continue tylenol 650 mg prn.encour age to increase oral hydration. [id number] FRIEDA ANDERSON [address] [place] [address] 06/01/2024 09:58:25 06/03/2024 09:34:34 Osteomyelitis 59955153 M86.272 completed abx Chronic di astolic heart failure 507735114 I50.32 euvolemicC ontinue furosemide 10 mg qdMonitor resp. status, fluid status, wts and labs. Chronic ob structive pulmonary disease 37455867 J43.8 breathing easy and unlabored. Continue Advair 250/50 BID and albuterol nebs q 6 hrs prnMonitor resp status. Mixed anxi ety and depressive disorder 521958808 F41.8 mood is stableCont inue escitalopr am 30 mg qd, trazadone 25 mg qhs and 12.5 mg BID prn.Monito r moodConsul t psych prn [id number] [facility] [address] [place] [address] [place] [address] 06/03/2024 11:42:59 06/09/2024 13:21:42 Osteomyelitis 70933772 M86.272 completed abx Chronic di astolic heart failure 936979666 I50.32 euvolemicC ontinue furosemide 10 mg qdMonitor resp. status, fluid status, wts and labs. Chronic ob structive pulmonary disease 90291583 J43.8 breathing easy and unlabored. Continue Advair 250/50 BID and albuterol nebs q 6 hrs prnMonitor resp status. Mixed anxi ety and depressive disorder 789295599 F41.8 mood is stableCont inue escitalopr am 30 mg qd, trazadone 25 mg qhs and 12.5 mg BID prn.Monito r moodConsul t psych prn [id number] FRIEDA ANDERSON [address] [place] [address] 06/09/2024 10:12:41 06/11/2024 14:30:47 Osteomyelitis 32230158 M86.272 06/09:clinic ally she is stableleft foot [...] dry and apply bacitracin with DCD BID. [id number] FRIEDA ANDERSON [facility] [address] [place] [address] [place] [address] 06/11/2024 11:46:23 06/15/2024 11:21:06 Osteomyelitis 61144106 M86.272 06/09:clinic ally she is stableleft foot [...] a second consult with ortho. appt 06/18/24. [id number] [facility] AND[facility] [address] [place] [address] [place] [address] 06/15/2024 09:48:35 06/17/2024 10:12:04 Osteomyelitis 71691203 M86.272 06/09:clinic ally she is stableleft foot [...] appt 06/18/24. Chronic di astolic heart failure 531349251 I50.32 euvolemicw eight stableCont inue furosemide 10 mg qdMonitor resp. status, fluid status, wts and labs. Chronic ob structive pulmonary disease 42547945 J43.8 breathing easy and unlabored. Continue Advair 250/50 BID and albuterol nebs q 6 hrs prnMonitor resp status. [id number] FRIEDA ANDERSON [address] [place] [address] 06/22/2024 08:47:12 06/24/2024 08:50:27 Osteomyelitis 65446797 M86.272 06/09:clinic ally she is stableleft foot [...] gaines. Mixed anxi ety and depressive disorder 276285648 F41.8 mood is stablerece nt room change transition to LTC, adjusting well. Most of the women she joins at activities reside on same unit, she is happy about this.Cindy nue escitalopr am 30 mg qd, trazadone 25 mg qhs and 12.5 mg BID prn.Monito r moodConsul t psych prn [id number] FRIEDA ANDERSON [address] [place] [address] 06/29/2024 10:45:15 06/30/2024 13:34:02 Osteomyelitis 89501305 M86.272 06/09:clinic ally she is stableleft foot [...] ortho. Mixed anxi ety and depressive disorder 870291263 F41.8 mood is stablerece nt room change transition to LTC, adjusting well. Most of the women she joins at activities reside on same unit, she is happy about this.Cindy nue escitalopr am 30 mg qd, trazadone 25 mg qhs and 12.5 mg BID prn.Monito r moodConsul t psych prn Chronic di astolic heart failure 489481133 I50.32 euvolemicw eight stable noted 166-168Con tinue furosemide 10 mg qdMonitor resp. status, fluid status, wts and labs. [id number] FRIEDA ANDERSON [facility] [address] [place] [address] [place]SS[place] [address] 07/02/2024 11:07:08 07/03/2024 12:50:28 Mixed anxiety and depressive disorder 623021269 F41.8 mood is stable- she denies feeling hopeless, lonely or isolated.C ontinue escitalopr am 30 mg qd, trazadone 25 mg qhs and 12.5 mg BID prn.Monito r mood for negative changes.pt encouraged to continue to engage in social activities .Consult psych prn Chronic di astolic heart failure 744340144 I50.32 euvolemic- she denies any chest pain or shortness of breathweig ht stable noted 166-168Con tinue furosemide 10 mg qdMonitor resp. status, fluid status, wts and labs. Hammer toe 686361185 M20 .42 left foot 2 nd toe-recent ly completed IV antibiotic s ertapenem 1 gm daily for 6 weeks for osteomyeli tis. she continues to have discomfort . follow up xray results: no acute abnormalit y is seen in the left foot. [id number] FRIEDA ANDERSON [address] [address] 07/07/2024 14:44:04 07/08/2024 11:39:59 Hammer toe 937979030 M20.42 left foot 2 nd toe-recent ly completed IV antibiotic s ertapenem 1 gm daily for 6 weeks for osteomyeli tis. she continues to have discomfort . follow up xray results: no acute abnormalit y is seen in the left foot. Mixed anxi ety and depressive disorder 548723533 F41.8 mood is stable- she denies feeling hopeless, lonely or isolated.C ontinue escitalopr am 30 mg qd, trazadone 25 mg qhs and 12.5 mg BID prn.Monito r mood for negative changes.pt encouraged to continue to engage in social activities .followed by psych prn recently seen 07/06 no new recommenda tion. Chronic di astolic heart failure 465573433 I50.32 euvolemic- she denies any chest pain or shortness of breathweig ht stable noted 166-168Con tinue furosemide 10 mg qdMonitor resp. status, fluid status, wts and labs. [id number] FRIEDA ANDERSON [address] [address] 07/13/2024 08:31:31 07/14/2024 11:43:51 Hammer toe 461903593 M20.42 07/13:stabl e, no worsening sx notedleft foot 2 nd toe-recent ly completed IV antibiotic s ertapenem 1 gm daily for 6 weeks for osteomyeli tis. she continues to have discomfort . follow up xray results: no acute abnormalit y is seen in the left foot. Mixed anxi ety and depressive disorder 205842717 F41.8 07/13: StableCont inue escitalopr am 30 mg qd, trazadone 25 mg qhs and 12.5 mg BID prn.Monito r mood for negative changes.pt encouraged to continue to engage in social activities .followed by psych prn recently seen 07/06 no new recommenda tion. Chronic di astolic heart failure 283013543 I50.32 07/13: stable.euv olemic- she denies any chest pain or shortness of breathweig ht stable noted 166-168Con tinue furosemide 10 mg qdMonitor resp. status, fluid status, wts and labs. [id number] FRIEDA ANDERSON [address] [address] 07/16/2024 10:15:02 07/21/2024 15:43:58 Hammer toe 864355478 M20.42 07/13:stabl e, no worsening sx notedleft foot 2 nd toe-recent ly completed IV antibiotic s ertapenem 1 gm daily for 6 weeks for osteomyeli tis. she continues to have discomfort . follow up xray results: no acute abnormalit y is seen in the left foot. Mixed anxi ety and depressive disorder 753915551 F41.8 Stable with delusional thoughts, she thinks staff is stealing her clothes.Co ntinue escitalopr am 30 mg qd, trazadone 25 mg qhs and 12.5 mg BID prn.Monito r mood for negative changes.pt encouraged to continue to engage in social activities .followed by psych prn recently seen 07/06 no new recommenda tion. Chronic di astolic heart failure 080582683 I50.32 stable.euv olemic- she denies any chest pain or shortness of breathweig ht stable noted 166-168Con tinue furosemide 10 mg qdMonitor resp. status, fluid status, wts and labs. [id number] FRIEDA ANDERSON [address] [place] [address] 07/20/2024 11:57:24 07/21/2024 16:08:03 Hammer toe 793598314 M20.42 stable, no worsening sx notedleft foot 2 nd toe-recent ly completed IV antibiotic s ertapenem 1 gm daily for 6 weeks for osteomyeli tis. she continues to have discomfort . follow up xray results: no acute abnormalit y is seen in the left foot. Mixed anxi ety and depressive disorder 048336423 F41.8 07/19: seen by psychiatric secretary will review notes when available. Stable with delusional thoughts, she thinks staff is stealing her clothes.Co ntinue escitalopr am 30 mg qd, trazadone 25 mg qhs and 12.5 mg BID prn.Monito r mood for negative changes.pt encouraged to continue to engage in social activities .followed by psych prn recently seen 07/06 no new recommenda tion. Chronic di astolic heart failure 991522528 I50.32 stable.euv olemic- she denies any chest pain or shortness of breathweig ht stable noted 166-168Con tinue furosemide 10 mg qdMonitor resp. status, fluid status, wts and labs. [id number] FRIEDA ANDERSON [address] [address] 07/23/2024 11:46:33 07/24/2024 11:44:07 Hammer toe 693409341 M20.42 stable, no worsening sx notedleft foot 2 nd toe-recent ly completed IV antibiotic s ertapenem 1 gm daily for 6 weeks for osteomyeli tis. she continues to have discomfort . follow up xray results: no acute abnormalit y is seen in the left foot. Mixed anxi ety and depressive disorder 664331129 F41.8 StableCont inue escitalopr am 30 mg qd, trazadone 25 mg qhs and 12.5 mg BID prn.Monito r mood for negative changes.pt encouraged to continue to engage in social activities .followed by psych prn recently seen 07/06 no new recommenda tion. Chronic di astolic heart failure 647553356 I50.32 stable.euv olemic- she denies any chest pain or shortness of breathweig ht stable noted 166-168Con tinue furosemide 10 mg qdMonitor resp. status, fluid status, wts and labs. Chronic ob structive pulmonary disease 69063340 J43.8 breathing easy and unlabored. Continue Advair 250/50 BID and albuterol nebs q 6 hrs prnMonitor resp status. [id number] FRIEDA ANDERSON [address] [address] 09/10/2024 08:43:17 09/11/2024 12:05:09 Mixed anxiety and depressive disorder 755398839 F41.8 mild emotional distress, crying during assessment 2/2 ble painContin ue escitalopr am 30 mg qd, trazadone 25 mg qhs and 12.5 mg BID prn.psych prn Chronic di astolic heart failure 777808561 I50.32 euvolemic- she denies any chest pain or shortness of breathweig ht stableCont inue furosemide 20 mg qdMonitor resp. status, fluid status, wts and labs. Chronic ob structive pulmonary disease 62326072 J43.8 breathing easy and unlabored. Continue Advair 250/50 BID and albuterol nebs q 6 hrs prnMonitor resp status. Neuropathy 035247006 G62 .9 see hpiBLE without sx of infectiono n gabapentin 300 mg at hs -she has been having increasing sx and weakness, requiring 2 people assist.dis cussed increasing gabapentin to BID and re eval in a few days for effect.hx diabetes/n ot on meds/ will get updated A1c. (06/2023 noted 6.1) Restless l egs syndrome 57783229 G25.81 Continue requip 2 mg bid [id number] FRIEDA ANDERSON [address] [address] 09/14/2024 10:23:24 09/15/2024 14:23:56 Neuropathy 574367516 G62.9 BLE without sx of infectiong abapentin 300 mg BIDshe has been having increasing sx and weakness, requiring 2 people assist.hx diabetes/n ot on meds/ will get updated A1c. (06/2023 noted 6.1) - labs ord for today not completed will re-order. Restless l egs syndrome 39911266 G25.81 Continue requip 2 mg bid [id number] FRIEDA ANDERSON [facility] [address] [place] [address] [place] [address] 10/02/2024 11:01:09 10/05/2024 13:31:21 Pain of left ankle joint 8037312983 0758631 M25.572 localizedn on pitting left ankle swelling, no redness or warmthno foot discolorat ion, color is normal+CMS , pain with ROMplan for xray, labs with uric acid,apply ice 15 minutes to ankle TIDapply tyrone wrap compressio n dailywill schedule tylenol 650 mg TID and Motrin 400 mg BIDPT/OT eval and tx [id number] FRIEDA ANDERSON DARRIN JENS[address] [place] [address] 10/05/2024 11:01:37 10/06/2024 13:54:09 Pain of left ankle joint 9034566059 2884649 M25.572 localized/ swelling noted to have improved [...] BIDPT/OT eval and tx Contusion of thigh 54657 003 S70.10XA see hpi/left thightende r to touchmonit or as it healsdiscu ssed with nursingcon tinue scheduled tylenol [id number] Rex Bass MD [address] [place] [address] 11/25/2024 11:52:19 11/26/2024 15:26:27 Acute low back pain 795679609 M54.59 acute on chronic low back pain with point tenderness lumbar spinex ray to eval for concern vert comp fxx ray left hipchange tramadol 50 mg to q 6 prnmonitor need for ortho eval Chronic di astolic heart failure 190854496 I50.32 euvolemic- she denies any chest pain or shortness of breathweig ht stableCont inue furosemide 20 mg qdMonitor resp. status, fluid status, wts and labs. Chronic ob structive pulmonary disease 40911181 J43.8 monitor respirator y status and albuterol utilizatio n Gastroesop hageal reflux disease 999239680 K21.9 protonix 40 mg qdmonitor sx control [id number] MD DARRIN Roe [address] [place] [address] 12/14/2024 09:37:44 12/16/2024 09:41:40 Sepsis 84754200 A41.89 see HPInow to complete course ofcefuroxi me 500 mg bidadd probiotic bidmonitor for recurrent infection Toxic meta bolic encephalopathy 178742039 G92.8 increased confusion at hospital is currently A and O x 3 with poor short term recall Asthenia 10578813 R53.1 therapy to re-evaluat e to determine baseline Cardiac en zymes outside reference range 838296439 R89.0 eval by cards now onasa 81 mg qdlipitor 40 mg qdmonitor sx Essential hypertension 73025703 I10 lasix 20 mg qd prn for weight gain associated with chfstarted on norvasc 2.5 mg qdmonitor bp and need to titrate Chronic di astolic heart failure 259710740 I50.32 Continue furosemide 20 mg qd prn weight gain Paroxysmal atrial flutter 131909805 I48.3 amiodarone 200 mg qdmonitor rate control Impaired cognition 38199 6002 R41.89 question of poor insight prior to above infectionb eing eval by psych for competency evalwill await recs [id number] MD DARRIN Roe [address] [place] [address] 01/06/2025 11:35:48 01/08/2025 08:30:51 Toxic metabolic encephalopathy 817392115 G92.8 see aboveincre ased confusion at hospital is currently A and O x 3 with poor short term recallnow invokedmon itor level of insight Impaired cognition 80535 6002 R41.89 appreciate psych eval and recswill invoke HCPmonitor level of insight as patient is alert and oriented to person place and time which she states easily Asthenia 80632238 R53.1 coordinate with therapymon itor fall risk [id number] DANIELLE GOFF CNP [address] [place] [address] 01/13/2025 11:16:32 01/20/2025 11:19:42 Chronic diastolic heart failure 561401551 I50.32 stable, euvolemic- she denies any chest pain or shortness of breathweig ht stable 160-170Con tinue furosemide 20 mg qdMonitor resp. status, fluid status, wts and labs. Chronic ob structive pulmonary disease 22136162 J43.8 stablemoni tor respirator y status and albuterol utilizatio n Gastroesop hageal reflux disease 154848683 K21.9 protonix 40 mg qdmonitor sx control Mixed anxi ety and depressive disorder 926601538 F41.8 mood stable.Con tinue escitalopr am 30 mg qd, trazadone 25 mg qhs and 12.5 mg BID prn.psych prn Restless l egs syndrome 39478276 G25.81 StableCont inue requip 2 mg bid Impaired cognition 20737 6002 R41.89 appreciate psych eval and recsHCP invoked.mo nitor level of insight as patient is alert and oriented to person place and time which she states easily Toxic meta bolic encephalopathy 343051936 G92.8 see aboveincre ased confusion at hospital is currently A and O x 3 with poor short term recallnow invokedmon itor level of insight Asthenia 33702428 R53.1 coordinate with therapymon itor fall risk Respirator y syncytial virus infection 92239844 B33.8 [id number] No acute respirator y distress noted.Cont inue supportive care.Monit or respirator y status. [id number] FRIEDA ANDERSON [address] [place] [address] 04/14/2025 05:51:03 04/16/2025 13:06:59 Chronic diastolic heart failure 889487336 I50.32 Continue furosemide 20 mg qdMonitor resp. status, fluid status, wts and labs. Chronic ob structive pulmonary disease 19327875 J43.8 stablemoni tor respirator y status and albuterol utilizatio n Gastroesop hageal reflux disease 525952759 K21.9 protonix 40 mg qdmonitor sx control Mixed anxi ety and depressive disorder 905217476 F41.8 Continue escitalopr am 30 mg qd, trazadone 25 mg qhs and 12.5 mg BID prn.psych prn Restless l egs syndrome 85937899 G25.81 Continue requip 2 mg bid Impaired cognition 96287 6002 R41.89 ? underlying dementiawa x and wane with confusione xpect decline Chronic ki dney disease 968461136 N18.2 Renal function is at baselinemo nitor labsavoid nephrotoxi c drugs Essential hypertension 71381139 I10 lasix 20 mg qd prn for [...] ID Guarantor Name 04/14/2025 1 [place] [employer] Shreya M Gravel [id number] Shreya Gravel 04/14/2025 2 [place] [id number] Shreya Gravel [id number] Shreya Gravel Notes Date Note Type Note Provider Name and Address Organization Details Recorded Time 11/25/2024 text/html Patient is a 89 yo female resident due for routine rounding also seen for acute rounding with complaint of chronic pain. PMH chf, a flutter, gerd, anemia, copd, chronic pain Rex Bass MD [address] [place] [address], [address], [place], [address], [facility] 11/25/2024 12:03:07 12/14/2024 text/html Patient is an [...] underlying cognitive impairment Rex Bass MD [address], [address], [place], [address], [facility] [employer] [facility] 12/14/2024 10:00:50 01/06/2025 text/html Patient is [...] belong throughout day. Rex Bass MD [address], [address], [place], [address], [facility] [employer] 01/06/2025 11:42:10 01/13/2025 text/html Shreya is [...] syndrome, depression, anxiety, LLE cellulitis. DANIELLE GOFF, [employer] JACK ADJUSTER [address], [address], [place], [address], [facility] [employer] 01/13/2025 11:53:02 04/14/2025 text/html 89 yo female LTC resident seen for routine rounding. Medically she is stable, she is at her baseline in NAD. FRIEDA ANEDRSON [address], [address], [place], [address], [facility] [employer] [facility] 04/15/2025 19:03:46 OBGyn Episode No OBEpisode recorded.
--- OUTSIDE RECORDS SUMMARY | 2025-07-12 07:03 | XMS_ITS | Data Portability ---
Author Organization [facility] Pain Managem ent, PAIN OFFICE Address [address] [place] [address] Care Team Providers Care Thermostat Maker Name Role Phone ABAD GONSALES Primary Care [...] appointment has been booked. She needs a wagon driver on the day of the procedure. [...] By Organization Details Last Modified Time 06/26/2021 [id number] She was advised against bed rest lasting longer than four days and to continue activities as tolerated. [email or web address] Not available 06/30/2021 10:01:24 07/11/2021 [id number] She was advised to continue with activities as tolerated [email or web address] Not available 07/11/2021 13:35:39 10/04/2021 [id number] She was advised to continue with activities as tolerated [email or web address] Not available 10/04/2021 11:55:19 12/12/2021 [id number] She was advised to continue with activities as tolerated [email or web address] Not available 12/12/2021 12:09:37 08/21/2022 [id number] She was advised to continue with activities as tolerated [email or web address] Not available 08/21/2022 10:34:48 Reason for Referral None Reported. Problems Name Problem SNOMED Code Status Onset Date Resolution Date Notes Provider Name and Address Organization Details Recorded Time Post-herpetic neuritis [id number] Gris adams MD [address] [place] [address] , [address], [facility] [place], [address] [facility] [place] [facility] 9 14:56:27 Inflammation of joint of shoulder region [id number] Gris adams, MD [address] , [address], [place], [address], [place] [facility] 9 09:39:04 Spinal stenosis of lumbar region 63809882 Active 2016 Alf adams MD [address] , [address], [place], [address], [place] [facility] 7 10:55:25 Lumbosacral spondylosis without myelopathy 00880022 Active 2016 Alf adams MD [address] , [address], [place], [address], [place] [facility] 7 10:55:26 Lumbosacral radiculitis 43271912 Active 2016 Alf adams MD [address] , [address], [place], [address], [place] [facility] 7 10:55:27 Displacement of lumbar intervertebral disc without myelopathy 64454408 Active 2016 Alf adams MD [address] , [address], [place], [address], [place] [facility] 7 10:55:30 Problem Notes None recorded. Procedures Surgical History Date Name Laterality Status Provider Name and Address Organization Details Recorded Time 08/21/20 22 Lumbar Epidural steroid injection under fluoroscopic guidance completed Alf Posada MD [address] , [address], [place], [address], [place] [facility] 08/21/2022 10:36:53 12/13/19 22 Lumbar Epidural steroid injection under fluoroscopic guidance completed Alf Posada MD [address] , [address], [place], [address], [place] [facility] 12/12/2021 12:09:46 10/04/20 21 Lumbar Epidural steroid injection under fluoroscopic guidance completed Alf Posada MD [address] , [address], [place], [address], [place] [facility] 10/04/2021 11:55:59 07/11/20 21 Lumbar Epidural steroid injection under fluoroscopic guidance completed Alf Posada MD [address] , [address], [place], [address], [place] [facility] 07/11/2021 13:35:45 04/11/20 21 Lumbar Epidural steroid injection under fluoroscopic guidance completed Alf Posada MD [address] , [address], [place], [address], [place] [facility] 04/11/2021 13:56:00 01/11/20 21 Lumbar Epidural steroid injection under fluoroscopic guidance completed Alf Posada MD [address] , [address], [place], [address], [place] [facility] 01/12/2021 09:57:53 09/06/20 20 Lumbar Epidural steroid injection under fluoroscopic guidance completed Alf Posada MD [address] , [address], [place], [address], [place] [facility] 09/08/2020 14:56:36 06/15/20 20 Lumbar Epidural steroid injection under fluoroscopic guidance completed Alf Posada MD [address] , [address], [place], [address], [place] [facility] 06/15/2020 14:00:13 05/23/20 20 Intra-articular shoulder steroid injection under ultrasound guidance completed Alf Posada MD [address] , [address], [place], [address], [place] [facility] 05/23/2020 15:11:49 05/11/20 19 Intra-articular shoulder steroid injection under ultrasound guidance completed Alf Posada MD [address] , [address], [place], [address], [place] [facility] 05/11/2019 09:43:25 03/31/20 19 Lumbar Epidural steroid injection under fluoroscopic guidance completed Alf Posada MD [address] , [address], [place], [address], [place] [facility] 03/31/2019 18:50:07 01/08/20 19 Fluoroscopic Guided Lumbar Facet Steroid Injections of levels completed Alf Posada MD [address] , [address], [place], [address], [place] [facility] 01/08/2019 15:03:53 09/17/20 17 Fluoroscopic Guided Lumbar Facet Steroid Injections of levels completed Alf Posada MD [address] , [address], [place], [address], [place] [facility] 09/17/2017 10:08:58 08/07/20 17 Fluoroscopic Guided Lumbar Facet Steroid Injections of levels completed Alf Posada MD [address] , [address], [place], [address], [place] [facility] 08/07/2017 10:36:11 05/08/20 17 Lumbar Epidural steroid injection under fluoroscopic guidance completed Alf Posada MD [address] [facility] , [address], [place], [address], [place] [facility] 05/08/2017 10:54:37 Joint Replacement completed Fayechris Sotoer [place] [facility] 03/14/2017 14:36:04 Cholecystectomy completed Fayechris Sotoer [place] [facility] 03/14/2017 14:36:22 Back Surgery completed Alf Posada MD [address] , [address], [place], [address], [place] [facility] 04/02/2017 [...] completed Not Available Not Available Not Available ticketstreetToFoodText Ultra Test strips TESTS DAILY FOR DM, [...] Not Available No t Available Fluzone High-Dose 9566-9832 (PF) 180 mcg/0.5 mL intramuscul ar syringe TO BE ADMINISTE RED BY PHARMACIS T FOR IMMUNIZAT ION 08/07 completed Not Available Not Available Not Available Fluzone High-Dose 2761-7854 (PF) 180 mcg/0.5 mL intramuscul ar syringe [...] Updated DateTime 1 160.02 cm 34.7 kg/m2 33128.1 g 58 /min 98 % 98 % 6 144/56 mm[Hg] Alf adams MD [address] [facility] , [address], [place], [address], [place] [facility] 1 [...] Or Recreational Drugs Have You Used? NO [id number] Information not available 07/22/2020 Education 12 With Some College Information not available 03/14/2017 Live Alone Or With Others? Alone Information not available 03/14/2017 Marital Status Informatio n not available 03/14/2017 What Was The Date Of Your Most Recent Tobacco Screening? 03/31/2019 [id number] Information not available 07/22/2020 How Many Years Have You Smoked Tobacco? 20 [id number] Information not available 07/22/2020 Sex: Unknown Functional Status Question Answer Note LastModified by Organization D etails LastModified Time What is your level of alcohol consumption? Moderate [id number] Information not available 07/22/2020 Are you currently employed? No [id number] Information not available 07/22/2020 Mental Status None [...] ICD10 Code Diagnosis IMO Codes Diagnosis Note [id number] Alf Posada MD PAIN OFFICE [address] [email or web address] [address] 03/14/2017 13:22:16 03/14/2017 15:44:04 Spinal stenosis of lumbar region 49209410 M48.06 Lumbosacra l spondylosis without myelopathy 88667018 M47.817 Lumbosacra l radiculitis 91668182 M54.17 Displaceme nt of lumbar intervertebral disc without myelopathy 54681261 M51.26 51343 Alf Posada MD PAIN OFFICE [address] [email or web address] [address] 05/08/2017 09:51:37 05/09/2017 14:08:37 Spinal stenosis of lumbar region 38949740 M48.06 Lumbosacra l spondylosis without myelopathy 72596257 M47.817 Lumbosacra l radiculitis 55549094 M54.17 Displaceme nt of lumbar intervertebral disc without myelopathy 33483749 M51.26 [id number] Alf Posada MD PAIN OFFICE [address] [place] [address] 06/14/2017 10:36:32 06/17/2017 09:50:43 Spinal stenosis of lumbar region 24085424 M48.06 Lumbosacra l spondylosis without myelopathy 78253435 M47.817 Lumbosacra l radiculitis 45237074 M54.17 Displaceme nt of lumbar intervertebral disc without myelopathy 87579807 M51.26 57794 Alf Posada MD PAIN OFFICE [address] [place] [address] 08/07/2017 10:01:00 08/07/2017 15:19:24 Spinal stenosis of lumbar region 56635651 M48.062 Lumbosacra l spondylosis without myelopathy 76162743 M47.817 Lumbosacra l radiculitis 88110717 M54.17 Displaceme nt of lumbar intervertebral disc without myelopathy 27760273 M51.26 43959 Alf Posada MD PAIN OFFICE [address] [place] [address] 09/05/2017 10:11:57 09/05/2017 19:46:07 Spinal stenosis of lumbar region 99804882 M48.062 Lumbosacra l spondylosis without myelopathy 42331658 M47.817 Lumbosacra l radiculitis 38562953 M54.17 Displaceme nt of lumbar intervertebral disc without myelopathy 79473394 M51.26 47920 Alf Posada MD PAIN OFFICE [address] [email or web address] [address] 09/17/2017 09:13:54 09/19/2017 09:09:31 Spinal stenosis of lumbar region 29346338 M48.062 Lumbosacra l spondylosis without myelopathy 29239423 M47.817 Lumbosacra l radiculitis 56994348 M54.17 Displaceme nt of lumbar intervertebral disc without myelopathy 55853252 M51.26 25563 Alf Posada MD [facility] PAIN OFFICE [address] [email or web address] [address] 12/25/2018 11:24:23 12/25/2018 16:12:18 Spinal stenosis of lumbar region 32235355 M48.061 Lumbosacra l spondylosis without myelopathy 57720363 M47.817 Lumbosacra l radiculitis 17130153 M54.17 Displaceme nt of lumbar intervertebral disc without myelopathy 64879792 M51.26 03931 Alf Posada MD [facility] PAIN OFFICE [address] [place] [address] 01/07/2019 09:10:35 01/08/2019 15:11:02 Spinal stenosis of lumbar region 84169117 M48.062 Lumbosacra l spondylosis without myelopathy 92803823 M47.817 Lumbosacra l radiculitis 44368149 M54.17 Displaceme nt of lumbar intervertebral disc without myelopathy 74787040 M51.26 01226 Alf Posada MD PAIN OFFICE [address] [place] [address] 02/04/2019 14:13:14 02/04/2019 16:10:53 Post-herpetic neuritis 752733576 B02.29 Spinal linda nosis of lumbar region 62452894 M48.061 Lumbosacra l spondylosis without myelopathy 05567487 M47.817 Lumbosacra l radiculitis 26253630 M54.17 Displaceme nt of lumbar intervertebral disc without myelopathy 00606598 M51.26 17272 Alf Posada MD PAIN OFFICE [address] [place] [address] 03/31/2019 09:49:03 03/31/2019 18:56:55 Spinal stenosis of lumbar region 35179095 M48.061 Lumbosacra l spondylosis without myelopathy 16509918 M47.817 Lumbosacra l radiculitis 42937342 M54.17 Displaceme nt of lumbar intervertebral disc without myelopathy 72993478 M51.26 02726 Alf Posada MD PAIN OFFICE [address] [place] [address] 05/11/2019 08:51:59 05/11/2019 09:45:44 Inflammation of joint of shoulder region 014297256 M13.819 Spinal linda nosis of lumbar region 27302979 M48.061 09735 Alf Posada MD PAIN OFFICE [address] [place] [address] 12/14/2019 13:40:03 12/14/2019 16:14:01 Spinal stenosis of lumbar region 11939321 M48.061 Lumbosacra l spondylosis without myelopathy 08412564 M47.817 Lumbosacra l radiculitis 22860660 M54.17 Displaceme nt of lumbar intervertebral disc without myelopathy 04626888 M51.26 48066 Alf Posada MD PAIN OFFICE [address] [facility] [place] [address] 02/12/2020 11:36:11 02/15/2020 12:09:29 Spinal stenosis of lumbar region 06562503 M48.061 Lumbosacra l spondylosis without myelopathy 18799343 M47.817 Lumbosacra l radiculitis 36122190 M54.17 Displaceme nt of lumbar intervertebral disc without myelopathy 59791633 M51.26 25039 Alf Posada MD PAIN OFFICE [address] [facility] [place] [address] 05/13/2020 08:29:14 05/13/2020 09:22:37 Inflammation of joint of shoulder region 203712629 M13.819 Spinal linda nosis of lumbar region 82682704 M48.061 53920 Alf Posada MD PAIN OFFICE [address] [facility] [place] [address] 05/23/2020 12:46:33 05/23/2020 15:14:52 Inflammation of joint of shoulder region 621654777 M13.819 Spinal linda nosis of lumbar region 18308760 M48.061 55409 Alf Posada MD PAIN OFFICE [address] [facility] [place] [address] 06/15/2020 10:54:32 06/15/2020 14:04:50 Inflammation of joint of shoulder region 228082062 M13.819 Spinal linda nosis of lumbar region 35645468 M48.061 Lumbosacra l spondylosis without myelopathy 70051041 M47.817 Lumbosacra l radiculitis 86254255 M54.17 Displaceme nt of lumbar intervertebral disc without myelopathy 03769141 M51.26 [id number] Alf Posada MD [facility] PAIN OFFICE [address] [employer] [employer] [address] [facility] [place] [address] 07/13/2020 08:30:09 07/13/2020 11:05:07 Inflammation of joint of shoulder region 341787359 M13.819 Spinal linda nosis of lumbar region 94553491 M48.061 41515 Alf Posada MD [facility] PAIN OFFICE [address] [facility] [place] [address] 09/06/2020 10:30:56 09/08/2020 15:55:16 Inflammation of joint of shoulder region 933298113 M13.819 Spinal linda nosis of lumbar region 07810042 M48.061 Lumbosacra l spondylosis without myelopathy 43152078 M47.817 Lumbosacra l radiculitis 71079796 M54.17 Displaceme nt of lumbar intervertebral disc without myelopathy 79788042 M51.26 20852 Alf Posada MD [facility] PAIN OFFICE [address] [facility] [place] [address] 11/07/2020 08:59:33 11/07/2020 09:55:18 Spinal stenosis of lumbar region 13733626 M48.061 Lumbosacra l spondylosis without myelopathy 74627370 M47.817 Lumbosacra l radiculitis 98244518 M54.17 Displaceme nt of lumbar intervertebral disc without myelopathy 46311362 M51.26 74712 Alf Posada MD [facility] PAIN OFFICE [address] [employer] [facility] [place] [address] 01/10/2021 13:47:25 01/12/2021 10:00:57 Inflammation of joint of shoulder region 862276322 M13.819 Spinal linda nosis of lumbar region 63326870 M48.061 Lumbosacra l spondylosis without myelopathy 46771976 M47.817 Lumbosacra l radiculitis 79002571 M54.17 Displaceme nt of lumbar intervertebral disc without myelopathy 99541868 M51.26 36556 Alf Posada MD [facility] PAIN OFFICE [email or web address] [place] [address] 02/16/2021 08:44:41 02/16/2021 10:52:14 Spinal stenosis of lumbar region 87563295 M48.061 Lumbosacra l spondylosis without myelopathy 82114073 M47.817 Lumbosacra l radiculitis 14124554 M54.17 Displaceme nt of lumbar intervertebral disc without myelopathy 02289320 M51.26 88465 Alf Posada MD [facility] PAIN OFFICE [address] [place] [address] 04/11/2021 13:21:59 04/11/2021 14:01:08 Spinal stenosis of lumbar region 07283437 M48.061 Inflammati on of joint of shoulder region 029028297 M13.819 Lumbosacra l spondylosis without myelopathy 51340067 M47.817 Lumbosacra l radiculitis 07619514 M54.17 Displaceme nt of lumbar intervertebral disc without myelopathy 66565902 M51.26 60032 Alf Posada MD [facility] PAIN OFFICE [address] [email or web address] [address] 06/26/2021 15:22:32 06/30/2021 10:03:11 Spinal stenosis of lumbar region 14262898 M48.061 Lumbosacra l spondylosis without myelopathy 26278155 M47.817 Lumbosacra l radiculitis 19278505 M54.17 Displaceme nt of lumbar intervertebral disc without myelopathy 23649348 M51.26 25632 Alf Posada MD [facility] PAIN OFFICE [email or web address] [place] [address] 07/11/2021 12:54:52 07/11/2021 13:38:15 Spinal stenosis of lumbar region 79652211 M48.061 Inflammati on of joint of shoulder region 163514543 M13.819 Lumbosacra l spondylosis without myelopathy 78118086 M47.817 Lumbosacra l radiculitis 08583263 M54.17 Displaceme nt of lumbar intervertebral disc without myelopathy 20676605 M51.26 39436 Alf Posada MD PAIN OFFICE [address] [facility] [place] [address] 10/04/2021 10:46:49 10/04/2021 12:00:47 Spinal stenosis of lumbar region 47633518 M48.061 Inflammati on of joint of shoulder region 594276230 M13.819 Lumbosacra l spondylosis without myelopathy 69015595 M47.817 Lumbosacra l radiculitis 26988151 M54.17 Displaceme nt of lumbar intervertebral disc without myelopathy 10178095 M51.26 28479 Alf Posada MD PAIN OFFICE [address] [facility] [place] [address] 12/12/2021 11:17:23 12/12/2021 14:28:00 Spinal stenosis of lumbar region 40141955 M48.061 Inflammati on of joint of shoulder region 671185567 M13.819 Lumbosacra l spondylosis without myelopathy 43973351 M47.817 Lumbosacra l radiculitis 49177326 M54.17 Displaceme nt of lumbar intervertebral disc without myelopathy 45788422 M51.26 53915 Alf Posada MD PAIN OFFICE [address] [facility] [place] [address] 08/21/2022 10:05:44 08/21/2022 11:05:40 Spinal stenosis of lumbar region 38083519 M48.061 Inflammati on of joint of shoulder region 348104139 M13.819 Lumbosacra l spondylosis without myelopathy 83401251 M47.817 Lumbosacra l radiculitis 28781092 M54.17 Displaceme nt of lumbar intervertebral disc without myelopathy 19959174 M51.26 Degenerati on of lumbar intervertebral disc 25600464 M51.36 Health Concerns Section Related Observation LastModified by Organization Detai ls LastModified Time None Recorded Concern Status LastModified by Organization Details LastModified Time None Recorded Advance Directives Directive None Recorded Payers Insurance Date Sequence Insurance Name Policy Number Policy Anders Covered Member ID Anders Member ID Guarantor Name 12/15/2022 1 [place] [employer] Shreya M Gravel [id number] Shreya Gravel 12/15/2022 2 [place] [id number] Shreya Gravel [id number] Shreya Gravel Notes Date Note Type [...] or bowel incontinence. Alf Posada MD [address] [facility] , [address] [address], [place], [address], [place] [facility] 07/10/2021 08:52:57 07/11/2021 text/html She is here for a lumbar epidural steroid injection under fluoroscopic guidance. Alf Posada MD [address] [facility] , [address] [address], [place], [address], [place] [facility] 07/12/2021 09:01:37 10/04/2021 text/html She is here for a lumbar epidural steroid injection under fluoroscopic guidance. Alf Posada MD [address] [facility] , [facility] [address], [place], [address], [place] [facility] 10/04/2021 12:48:56 12/12/2021 text/html She is here for a lumbar epidural steroid injection under fluoroscopic guidance. Alf Posada MD [address] [facility] , [address] [address], [place], [address], [place] [facility] 12/12/2021 16:13:18 08/21/2022 text/html She is here for a lumbar epidural steroid injection under fluoroscopic guidance. She has stopped eliquis and pletal as instructed for the procedure. Alf Posada MD [address] , [address] [place], [address], JESSE Bonner [facility] 08/22/2022 08:44:58 OBGyn Episode No OBEpisode recorded.
[2025-07-12 07:20] LABS: Anion Gap 9 (12-20); Blood Urea Nitrogen 21 mg/dL (9-16); Calcium 8.7 mg/dL (8.4-10.2); Carbon Dioxide 26 mmol/L (22-29); Chloride 109 mmol/L (96-108); Estimated Glomerular Filt Rate > 60; Potassium 3.6 mmol/L (3.3-5.1); Sodium 140 mmol/L (135-145)
== END 2025-07-12 06:47 | disposition home or self-care (01) ==
LOC: HO.MMNH3L 06:46
PROVIDERS: Visit Provider Student in an Organized Health Care Education/Training Program
DX: I48.92 Unspecified atrial flutter (principal)
CPT/HCPCS: 36415; 80048; 85025

== ENCOUNTER 2025-07-19 06:58 | Outpatient (REF) | payer MEDICARE, MEDICAID, SELFPAY ==
--- OUTSIDE RECORDS SUMMARY | 2025-07-19 07:00 | XMS_ITS | Clinical Summary ---
Author Organization [address] [facility] Address [address] [place] [address] Phone Care Team Providers Care Joint Special Operations Name Role Phone Rex Bass MD Primary Care Provider [phone] Allergies Active Allergy Reactions Criticality Noted Date [...] Problem Noted Date Diagnosed Date Atrial flutter ([facility] V24, [facility] V28) 2021 Overview (08/28/2024): Last Assessment & [...] HISTORICAL CHOLECYSTECTOMY OTHER SURGICAL HISTORY 12/14/2013 PROCEDURE: MO EGD PARTIAL/COMPL ESOPHAGOGASTRIC FUNDOPLASTY COLONOSCOPY 02/09/2016 PROCEDURE: HISTORICAL COLONOSCOPY OTHER SURGICAL HISTORY 05/14/2013 PROCEDURE: MO ECHO TRANSTHORAC R-T 2D W/WO M-MODE REC COMP OTHER SURGICAL HISTORY 03/13/2013 PROCEDURE: MO CABG W/ARTERIAL GRAFT THREE ARTERIAL GRAFTS OTHER SURGICAL HISTORY 12/06/2008 PROCEDURE: MO EGD PARTIAL/COMPL ESOPHAGOGASTRIC FUNDOPLASTY CARPAL TUNNEL RELEASE PROCEDURE: MO NEUROPLASTY &/TRANSPOS MEDIAN NRV CARPAL TUNNE; COMMENT: [...] V28) DX:Chronic obstructive pulm onary disease ([facility]) Chronic pain DX:Chronic pain Compression fracture of L1 l umbar vertebra ([facility] V24, [facility] V28) DX:Compression fra cture of L1 lumbar vertebra ([facility]); COMMENT: and t12 vertebra Degeneration macular DX:Degenera tion macular Depression DX:Depression Diabetes type 2, controlled ([facility] V24, [facility] V28) DX:Diabetes type 2, controll ed ([facility]) Diverticulitis DX:Diverticuliti s Elevated LFTs DX:Elevated LFTs [...] 2 obesi ty Osteoporosis DX:Osteoporosis Primary hyperparathyroidism ([facility] V24) DX:Primary hyperparathyroidi sm ([facility]) Recurrent falls DX:Recurrent fal ls Restless legs [...] Documents on File Type Date Recorded Patient Cutter In Expl anation Health Care Decision (hx) 09/26/2023 AD FARNSWORTH DIRECTIVE Health Care Decision (hx) 05/09/2021 AD FARNSWORTH DIRECTIVE Health Care Decision (hx) 05/09/2021 AD FARNSWORTH DIRECTIVE Care Teams Joint Special Operations Relationship Specialty Start Date End Date Rex Bass MD [address] [place] [address], [id number] PCP - General 04/23/24
--- OUTSIDE RECORDS SUMMARY | 2025-07-19 07:00 | XMS_ITS | Data Portability ---
Author Organization [facility] Pain Managem ent, PAIN OFFICE Address [address] [place] [address] Care Team Providers Care Drying Tumbler Operator Name Role Phone ABAD GONSALES Primary Care Provider [phone] GUILHERME DIAZ Referring Provider Assessment Encounter Date [...] appointment has been booked. She needs a milk driver on the day of the procedure. [...] By Organization Details Last Modified Time 06/26/2021 [id number] She was advised against bed rest lasting longer than four days and to continue activities as tolerated. [email or web address] Not available 06/30/2021 10:01:24 07/11/2021 [id number] She was advised to continue with activities as tolerated [email or web address] Not available 07/11/2021 13:35:39 10/04/2021 [id number] She was advised to continue with activities as tolerated [email or web address] Not available 10/04/2021 11:55:19 12/12/2021 [id number] She was advised to continue with activities as tolerated [email or web address] Not available 12/12/2021 12:09:37 08/21/2022 [id number] She was advised to continue with activities as tolerated [email or web address] Not available 08/21/2022 10:34:48 Reason for Referral None Reported. Problems Name Problem SNOMED Code Status Onset Date Resolution Date Notes Provider Name and Address Organization Details Recorded Time Post-herpetic neuritis [id number] Gris adams MD [address] [place] [address] , [address], [facility] [place], [address] [facility] [place] [facility] 9 14:56:27 Inflammation of joint of shoulder region 031273108 Gris adams, MD [address] , [address], [place], [address], [place] [facility] 9 09:39:04 Spinal stenosis of lumbar region 39407604 Active 2016 Alf adams MD [address] , [address], [place], [address], [place] [facility] 7 10:55:25 Lumbosacral spondylosis without myelopathy 33882099 Active 2016 Alf adams MD [address] , [address], [place], [address], [place] [facility] 7 10:55:26 Lumbosacral radiculitis 65876558 Active 2016 Alf adams MD [address] , [address], [place], [address], [place] [facility] 7 10:55:27 Displacement of lumbar intervertebral disc without myelopathy 50668770 Active 2016 Alf adams MD [address] , [address], [place], [address], [place] [facility] 7 10:55:30 Problem Notes None recorded. Procedures Surgical History Date Name Laterality Status Provider Name and Address Organization Details Recorded Time 08/21/20 22 Lumbar Epidural steroid injection under fluoroscopic guidance completed Alf Posada MD [address] , [address], [place], [address], [place] [facility] 08/21/2022 10:36:53 12/13/19 22 Lumbar Epidural steroid injection under fluoroscopic guidance completed Alf Posada MD [address] , [address], [place], [address], [place] [facility] 12/12/2021 12:09:46 10/04/20 21 Lumbar Epidural steroid injection under fluoroscopic guidance completed Alf Posada MD [address] , [address], [place], [address], [place] [facility] 10/04/2021 11:55:59 07/11/20 21 Lumbar Epidural steroid injection under fluoroscopic guidance completed Alf Posada MD [address] , [address], [place], [address], [place] [facility] 07/11/2021 13:35:45 04/11/20 21 Lumbar Epidural steroid injection under fluoroscopic guidance completed Alf Posada MD [address] , [address], [place], [address], [place] [facility] 04/11/2021 13:56:00 01/11/20 21 Lumbar Epidural steroid injection under fluoroscopic guidance completed Alf Posada MD [address] , [address], [place], [address], [place] [facility] 01/12/2021 09:57:53 09/06/20 20 Lumbar Epidural steroid injection under fluoroscopic guidance completed Alf Posada MD [address] , [address], [place], [address], [place] [facility] 09/08/2020 14:56:36 06/15/20 20 Lumbar Epidural steroid injection under fluoroscopic guidance completed Alf Posada MD [address] , [address], [place], [address], [place] [facility] 06/15/2020 14:00:13 05/23/20 20 Intra-articular shoulder steroid injection under ultrasound guidance completed Alf Posada MD [address] , [address], [place], [address], [place] [facility] 05/23/2020 15:11:49 05/11/20 19 Intra-articular shoulder steroid injection under ultrasound guidance completed Alf Posada MD [address] , [address], [place], [address], [place] [facility] 05/11/2019 09:43:25 03/31/20 19 Lumbar Epidural steroid injection under fluoroscopic guidance completed Alf Posada MD [address] , [address], [place], [address], [place] [facility] 03/31/2019 18:50:07 01/08/20 19 Fluoroscopic Guided Lumbar Facet Steroid Injections of levels completed Alf Posada MD [address] , [address], [place], [address], [place] [facility] 01/08/2019 15:03:53 09/17/20 17 Fluoroscopic Guided Lumbar Facet Steroid Injections of levels completed Alf Posada MD [address] , [address], [place], [address], [place] [facility] 09/17/2017 10:08:58 08/07/20 17 Fluoroscopic Guided Lumbar Facet Steroid Injections of levels completed Alf Posada MD [address] , [address], [place], [address], [place] [facility] 08/07/2017 10:36:11 05/08/20 17 Lumbar Epidural steroid injection under fluoroscopic guidance completed Alf Posada MD [address] [facility] , [address], [place], [address], [place] [facility] 05/08/2017 10:54:37 Joint Replacement completed Fayechris Sotoer [place] [facility] 03/14/2017 14:36:04 Cholecystectomy completed Fayechris Sotoer [place] [facility] 03/14/2017 14:36:22 Back Surgery completed Alf Posada MD [address] , [address], [place], [address], [place] [facility] 04/02/2017 [...] completed Not Available Not Available Not Available V[employer] Ultra Test strips TESTS DAILY FOR DM, [...] Not Available No t Available Fluzone High-Dose 3442-0117 (PF) 180 mcg/0.5 mL intramuscul ar syringe TO BE ADMINISTE RED BY PHARMACIS T FOR IMMUNIZAT ION 08/07 completed Not Available Not Available Not Available Fluzone High-Dose 6807-1747 (PF) 180 mcg/0.5 mL intramuscul ar syringe [...] Updated DateTime 1 160.02 cm 34.7 kg/m2 40528.1 g 58 /min 98 % 98 % 6 144/56 mm[Hg] Alf adams MD [address] [facility] , [address], [place], [address], [place] [facility] 1 [...] Or Recreational Drugs Have You Used? NO [id number] Information not available 07/22/2020 Education 12 With Some College Information not available 03/14/2017 Live Alone Or With Others? Alone Information not available 03/14/2017 Marital Status Informatio n not available 03/14/2017 What Was The Date Of Your Most Recent Tobacco Screening? 03/31/2019 [id number] Information not available 07/22/2020 How Many Years Have You Smoked Tobacco? 20 [id number] Information not available 07/22/2020 Sex: Unknown Functional Status Question Answer Note LastModified by Organization D etails LastModified Time What is your level of alcohol consumption? Moderate [id number] Information not available 07/22/2020 Are you currently employed? No [id number] Information not available 07/22/2020 Mental Status None [...] ICD10 Code Diagnosis IMO Codes Diagnosis Note [id number] Alf Posada MD PAIN OFFICE [address] [place] [address] 03/14/2017 13:22:16 03/14/2017 15:44:04 Spinal stenosis of lumbar region 23062488 M48.06 Lumbosacra l spondylosis without myelopathy 27607741 M47.817 Lumbosacra l radiculitis 32089129 M54.17 Displaceme nt of lumbar intervertebral disc without myelopathy 78984830 M51.26 [id number] Alf Posada MD PAIN OFFICE [address] [place] [address] 05/08/2017 09:51:37 05/09/2017 14:08:37 Spinal stenosis of lumbar region 99404448 M48.06 Lumbosacra l spondylosis without myelopathy 39694212 M47.817 Lumbosacra l radiculitis 97399136 M54.17 Displaceme nt of lumbar intervertebral disc without myelopathy 26849857 M51.26 [id number] Alf Posada MD PAIN OFFICE [address] [place] [address] 06/14/2017 10:36:32 06/17/2017 09:50:43 Spinal stenosis of lumbar region 75483303 M48.06 Lumbosacra l spondylosis without myelopathy 45406458 M47.817 Lumbosacra l radiculitis 51761351 M54.17 Displaceme nt of lumbar intervertebral disc without myelopathy 69137933 M51.26 [id number] Alf Posada MD PAIN OFFICE [address] [place] [address] 08/07/2017 10:01:00 08/07/2017 15:19:24 Spinal stenosis of lumbar region 04242710 M48.062 Lumbosacra l spondylosis without myelopathy 13789598 M47.817 Lumbosacra l radiculitis 97464780 M54.17 Displaceme nt of lumbar intervertebral disc without myelopathy 01373920 M51.26 [id number] Alf Posada MD PAIN OFFICE [address] [place] [address] 09/05/2017 10:11:57 09/05/2017 19:46:07 Spinal stenosis of lumbar region 94667993 M48.062 Lumbosacra l spondylosis without myelopathy 66469883 M47.817 Lumbosacra l radiculitis 56468363 M54.17 Displaceme nt of lumbar intervertebral disc without myelopathy 82147837 M51.26 [id number] Alf Posada MD PAIN OFFICE [address] [place] [address] 09/17/2017 09:13:54 09/19/2017 09:09:31 Spinal stenosis of lumbar region 16058376 M48.062 Lumbosacra l spondylosis without myelopathy 86795947 M47.817 Lumbosacra l radiculitis 32355063 M54.17 Displaceme nt of lumbar intervertebral disc without myelopathy 32931002 M51.26 [id number] Alf Posada MD [facility] PAIN OFFICE [address] [place] [address] 12/25/2018 11:24:23 12/25/2018 16:12:18 Spinal stenosis of lumbar region 39499900 M48.061 Lumbosacra l spondylosis without myelopathy 88653844 M47.817 Lumbosacra l radiculitis 52172170 M54.17 Displaceme nt of lumbar intervertebral disc without myelopathy 78327053 M51.26 [id number] Alf Posada MD [facility] PAIN OFFICE [address] [place] [address] 01/07/2019 09:10:35 01/08/2019 15:11:02 Spinal stenosis of lumbar region 37732269 M48.062 Lumbosacra l spondylosis without myelopathy 41283009 M47.817 Lumbosacra l radiculitis 97688018 M54.17 Displaceme nt of lumbar intervertebral disc without myelopathy 82087088 M51.26 [id number] Alf Posada MD PAIN OFFICE [address] [place] [address] 02/04/2019 14:13:14 02/04/2019 16:10:53 Post-herpetic neuritis 978737892 B02.29 Spinal linda nosis of lumbar region 16699064 M48.061 Lumbosacra l spondylosis without myelopathy 17056807 M47.817 Lumbosacra l radiculitis 30921058 M54.17 Displaceme nt of lumbar intervertebral disc without myelopathy 39847267 M51.26 [id number] Alf Posada MD PAIN OFFICE [address] [place] [address] 03/31/2019 09:49:03 03/31/2019 18:56:55 Spinal stenosis of lumbar region 59933471 M48.061 Lumbosacra l spondylosis without myelopathy 80159787 M47.817 Lumbosacra l radiculitis 01163831 M54.17 Displaceme nt of lumbar intervertebral disc without myelopathy 15498701 M51.26 [id number] Alf Posada MD PAIN OFFICE [address] [place] [address] 05/11/2019 08:51:59 05/11/2019 09:45:44 Inflammation of joint of shoulder region 327185876 M13.819 Spinal linda nosis of lumbar region 56611274 M48.061 [id number] Alf Posada MD PAIN OFFICE [address] [place] [address] 12/14/2019 13:40:03 12/14/2019 16:14:01 Spinal stenosis of lumbar region 64677805 M48.061 Lumbosacra l spondylosis without myelopathy 02717514 M47.817 Lumbosacra l radiculitis 31485797 M54.17 Displaceme nt of lumbar intervertebral disc without myelopathy 88913046 M51.26 [id number] Alf Posdaa MD PAIN OFFICE [address] [facility] [place] [address] 02/12/2020 11:36:11 02/15/2020 12:09:29 Spinal stenosis of lumbar region 30147439 M48.061 Lumbosacra l spondylosis without myelopathy 49752767 M47.817 Lumbosacra l radiculitis 80495818 M54.17 Displaceme nt of lumbar intervertebral disc without myelopathy 84998366 M51.26 [id number] Alf Posada MD PAIN OFFICE [address] [facility] [place] [address] 05/13/2020 08:29:14 05/13/2020 09:22:37 Inflammation of joint of shoulder region 421578493 M13.819 Spinal linda nosis of lumbar region 69142726 M48.061 [id number] Alf Posada MD PAIN OFFICE [address] [facility] [place] [address] 05/23/2020 12:46:33 05/23/2020 15:14:52 Inflammation of joint of shoulder region 007460378 M13.819 Spinal linda nosis of lumbar region 40223351 M48.061 [id number] Alf Posada MD PAIN OFFICE [address] [facility] [place] [address] 06/15/2020 10:54:32 06/15/2020 14:04:50 Inflammation of joint of shoulder region 904439872 M13.819 Spinal linda nosis of lumbar region 73754222 M48.061 Lumbosacra l spondylosis without myelopathy 10682848 M47.817 Lumbosacra l radiculitis 96314122 M54.17 Displaceme nt of lumbar intervertebral disc without myelopathy 65306838 M51.26 [id number] Alf Posada MD [facility] PAIN OFFICE [address] [facility] [place] [address] 07/13/2020 08:30:09 07/13/2020 11:05:07 Inflammation of joint of shoulder region 364398246 M13.819 Spinal linda nosis of lumbar region 56732130 M48.061 [id number] Alf Posada MD [facility] PAIN OFFICE [address] [facility] [place] [address] 09/06/2020 10:30:56 09/08/2020 15:55:16 Inflammation of joint of shoulder region 580350132 M13.819 Spinal linda nosis of lumbar region 83135574 M48.061 Lumbosacra l spondylosis without myelopathy 64440832 M47.817 Lumbosacra l radiculitis 80061099 M54.17 Displaceme nt of lumbar intervertebral disc without myelopathy 62023138 M51.26 [id number] Alf Posada MD [facility] PAIN OFFICE [address] [facility] [place] [address] 11/07/2020 08:59:33 11/07/2020 09:55:18 Spinal stenosis of lumbar region 23634293 M48.061 Lumbosacra l spondylosis without myelopathy 88410672 M47.817 Lumbosacra l radiculitis 98768546 M54.17 Displaceme nt of lumbar intervertebral disc without myelopathy 00146320 M51.26 [id number] Alf Posada MD [facility] PAIN OFFICE [address] [facility] [place] [address] 01/10/2021 13:47:25 01/12/2021 10:00:57 Inflammation of joint of shoulder region 925388127 M13.819 Spinal linda nosis of lumbar region 79978436 M48.061 Lumbosacra l spondylosis without myelopathy 86134096 M47.817 Lumbosacra l radiculitis 02986908 M54.17 Displaceme nt of lumbar intervertebral disc without myelopathy 92428054 M51.26 [id number] Alf Posada MD [facility] PAIN OFFICE [address] [place] [address] 02/16/2021 08:44:41 02/16/2021 10:52:14 Spinal stenosis of lumbar region 05588396 M48.061 Lumbosacra l spondylosis without myelopathy 22712226 M47.817 Lumbosacra l radiculitis 66711440 M54.17 Displaceme nt of lumbar intervertebral disc without myelopathy 64029217 M51.26 [id number] Alf Posada MD [facility] PAIN OFFICE [address] [place] [address] 04/11/2021 13:21:59 04/11/2021 14:01:08 Spinal stenosis of lumbar region 84369281 M48.061 Inflammati on of joint of shoulder region 225919713 M13.819 Lumbosacra l spondylosis without myelopathy 65144553 M47.817 Lumbosacra l radiculitis 97815805 M54.17 Displaceme nt of lumbar intervertebral disc without myelopathy 95163268 M51.26 [id number] Alf Posada MD [facility] PAIN OFFICE [address] [place] [address] 06/26/2021 15:22:32 06/30/2021 10:03:11 Spinal stenosis of lumbar region 16249211 M48.061 Lumbosacra l spondylosis without myelopathy 09388054 M47.817 Lumbosacra l radiculitis 60935619 M54.17 Displaceme nt of lumbar intervertebral disc without myelopathy 77449165 M51.26 [id number] Alf Posada MD [facility] PAIN OFFICE [address] [place] [address] 07/11/2021 12:54:52 07/11/2021 13:38:15 Spinal stenosis of lumbar region 66119815 M48.061 Inflammati on of joint of shoulder region 562780501 M13.819 Lumbosacra l spondylosis without myelopathy 12527268 M47.817 Lumbosacra l radiculitis 25465951 M54.17 Displaceme nt of lumbar intervertebral disc without myelopathy 83505016 M51.26 [id number] Alf Posada MD PAIN OFFICE [address] [facility] [place] [address] 10/04/2021 10:46:49 10/04/2021 12:00:47 Spinal stenosis of lumbar region 40147752 M48.061 Inflammati on of joint of shoulder region 420962439 M13.819 Lumbosacra l spondylosis without myelopathy 56837366 M47.817 Lumbosacra l radiculitis 84995357 M54.17 Displaceme nt of lumbar intervertebral disc without myelopathy 13779511 M51.26 [id number] Alf Posada MD PAIN OFFICE [address] [facility] [place] [address] 12/12/2021 11:17:23 12/12/2021 14:28:00 Spinal stenosis of lumbar region 62302505 M48.061 Inflammati on of joint of shoulder region 659848053 M13.819 Lumbosacra l spondylosis without myelopathy 24793561 M47.817 Lumbosacra l radiculitis 06466046 M54.17 Displaceme nt of lumbar intervertebral disc without myelopathy 71001205 M51.26 [id number] Alf Posada MD PAIN OFFICE [address] [facility] [place] [address] 08/21/2022 10:05:44 08/21/2022 11:05:40 Spinal stenosis of lumbar region 98082361 M48.061 Inflammati on of joint of shoulder region 133022522 M13.819 Lumbosacra l spondylosis without myelopathy 04808009 M47.817 Lumbosacra l radiculitis 81215468 M54.17 Displaceme nt of lumbar intervertebral disc without myelopathy 46588947 M51.26 Degenerati on of lumbar intervertebral disc 02791464 M51.36 Health Concerns Section Related Observation LastModified by Organization Detai ls LastModified Time None Recorded Concern Status LastModified by Organization Details LastModified Time None Recorded Advance Directives Directive None Recorded Payers Insurance Date Sequence Insurance Name Policy Number Policy Anders Covered Member ID Anders Member ID Guarantor Name 12/15/2022 1 [place] [employer] Shreya M Gravel [id number] Shreya Gravel 12/15/2022 2 [place] [id number] Shreya Gravel [id number] Shreya Gravel Notes Date Note Type [...] or bowel incontinence. Alf Posada MD [address] [facility] , [place] [address], [place], [address], [place] [facility] 07/10/2021 08:52:57 07/11/2021 text/html She is here for a lumbar epidural steroid injection under fluoroscopic guidance. Alf Posada MD [address] [facility] , [place] [address], [place], [address], [place] [facility] 07/12/2021 09:01:37 10/04/2021 text/html She is here for a lumbar epidural steroid injection under fluoroscopic guidance. Alf Posada MD [address] [facility] , [facility] [address], [place], [address], [place] [facility] 10/04/2021 12:48:56 12/12/2021 text/html She is here for a lumbar epidural steroid injection under fluoroscopic guidance. Alf Posada MD [address] [facility] , [place] [address], [place], [address], [place] [facility] 12/12/2021 16:13:18 08/21/2022 text/html She is here for a lumbar epidural steroid injection under fluoroscopic guidance. She has stopped eliquis and pletal as instructed for the procedure. Alf Posada MD [address] , [address] [place], [address], JESSE Bonner [facility] 08/22/2022 08:44:58 OBGyn Episode No OBEpisode recorded.
--- OUTSIDE RECORDS SUMMARY | 2025-07-19 07:01 | XMS_ITS | Data Portability ---
Author Organization [facility], Main Office Address [address], [address] [place] [address] Care Team Providers Care Polls Or Surveys Interviewer Name Role Phone DARRIN STYLES 3RD FLOOR OTHER [phone] Assessment Encounter Date Assessment Date Assessment LastModified [...] and Address Organization Details Recorded Time Cystitis 89734361 Active 2023 FRIEDA ANDERSON [address] [facility], [address], [place], [address], [facility] 4 14:00:02 Falls 180835836 Active 2023 FRIEDA ANDERSON [address] [facility], [address], [place], [address], [facility] 4 14:00:38 Pain of right wrist 7645645956755 00 Active 2023 FRIEDA ANDERSON [address], [place], [address], [facility] 4 14:00:56 Peripheral venous insufficien cy 85209274 Active 2023 CARLTON MINA, [employer] [address], [address], [place], [address], [place] [facility] 4 14:01:26 Chronic diastolic heart failure 146509526 Active 2023 CARLTON MINA, [employer] [address], [address], [place], [address], [place] [facility] 4 14:01:46 Type 2 diabetes mellitus 36075228 Active 2023 CARLTON MINA, [facility] [address], [address], [place], [address], [place] [facility] 4 14:01:55 Paroxysmal atrial flutter 175445908 Active [address] AND[address]P [address], [address], [place], [address], [place] [facility] 4 14:02:21 Restless legs syndrome 14517871 Active 2023 MP ANDERSONP [address], [address], [place], [address], [place] [facility] 4 14:02:38 Chronic obstructive pulmonary disease 34863408 Active 2023 FRIEDA ANDERSON [address], [address], [place], [address], [place] [facility] 4 14:02:49 Anemia of chronic disease 314861158 Active 2023 FRIEDA ANDERSON [address], [address], [place], [address], [place] [facility] 4 14:02:59 Mixed anxiety and depressive disorder 847230182 Active 2023 CARLTON MINA, [employer] [address], [address], [place], [address], [place] - [facility] 4 14:17:43 Chronic kidney disease 259924787 Active 20[address] MP AND[address]P [address], [address], [place], [address], [place] [facility] 4 14:19:41 Hyperlipide nena 77281369 Active 2023 FRIEDA ANDERSON [address], [address], [place], [address], [facility] 4 14:26:52 Gastroesoph ageal reflux disease 558289682 Active 2023 FRIEDA ANDERSON [address], [address], [place], [address], [facility] 4 14:27:49 Chronic back pain 968103612 Active 2023 FRIEDA ANDERSON [address], [address], [place], [address], [facility] 4 14:40:47 Vitamin D deficiency 50653372 Active 2023 FRIEDA ANDERSON [address], [address], [place], [address], [facility] 4 19:41:46 Bradycardia 84110303 Active 2023 FRIEDA ANDERSON [address], [address], [place], [address], [facility] 4 19:44:32 Asthenia 07083117 Active 2023 FRIEDA ANDERSON [address], [address], [place], [address], [facility] 4 19:53:05 Bleeding from nose 598399434 Active 2023 FRIEDA ANDERSON [address], [address], [place], [address], [facility] 4 15:36:07 Osteomyelit is 52257019 Active 2023 Naomi Todd MD [address], [address], [place], [address], [facility] 4 17:53:51 Headache 60653848 Active 2023 WISAM SILVA NP [address], [address], [place], [address], [facility] 4 09:49:14 Essential hypertensio n 43286777 Active 2024 Rex Bass MD [address] [place] [address], [address], [place], [address], [facility] 5 09:46:16 Problem Notes None recorded. Medical Equipment None Reported. Allergies Allergen ID Allergen Name Allergen Category Reaction Reaction Severity Criticality Documentation Date Start Date Code Code System Note Provider Name and Address Organization Details Recorded Time 43652 lisinopri l medicatio n Not available Not available Not available 10/22/2023 37503 RxNorm Naomi Todd MD [address] [place] [address], [address], [place], [address], [facility] 4 17:53:46 Medications Name Sig Start Date [...] 165.1 cm 129/73 mm[Hg] Rex Bass MD [address] [place] [address], [address], [place], [address], [facility] 11/25/2024 11:53:24 Date Recorded Body height Body temperature Heart rate Respiratory rate Systolic And Diastolic Provider Name and Address Organization Details Last Updated DateTime 5 165.1 cm 97.4 [degF] 84 /min 18 /min 142/70 mm[Hg] Rex Bass MD [address] [facility], [address], [place], [address], [facility] 5 09:39:14 Date Recorded Body height Body temperature Respiratory rate Oxygen saturation Oxygen saturation in Arterial blood by Pulse oximetry Systolic And Diastolic Provider Name and Address Organization Details Last Updated DateTime 5 165.1 cm 97.9 [degF] 18 /min 97 % 97 % 130/70 mm[Hg] FRIEDA ANDERSON [address], [address], [place], [address], [facility] 5 18:58:17 Social History Question Answer Notes LastModified by Organizat ion Details LastModified Time Tobacco Smoking Status Former Smoker quit 30 yrs ago FRIEDA ANDERSON [address], [address], [place], [address], [facility] 10/24/2023 14:39:11 Do You Have An Advance Directive? Yes Information not available 10/24/2023 What Is Your Level Of Caffeine Consumption? Occasional Information not available 10/24/2023 What Is Your Code Status? DNR/DNI Information not available 10/24/2023 [facility], Had Been Living At [facility] Information not available 04/13/2024 Legal Guardian? No Informati on not available 10/24/2023 Do You Have A Medical Power Of Interior Specialist? Yes Information not available 10/24/2023 What Was [...] Recorded Time Tdap 2 completed Flor Luna [facility] 12/27/2023 11:11:29 Pneumococcal conjugate PCV 13 7 completed Flor Luna [facility] 12/27/2023 11:11:41 Influenza, adjuvanted, quadrivalent, PF 3 completed Flor Luna [facility] 12/27/2023 11:11:59 COVID-19, mRNA, LNP-S, bivalent, PF, 30 mcg/0.3 mL dose 1 completed Flor Luna [facility] 12/27/2023 11:12:12 COVID-19, mRNA, LNP-S, bivalent, PF, 30 mcg/0.3 mL dose 1 completed Flor Jeremy [facility] 12/27/2023 11:12:20 COVID-19, mRNA, LNP-S, bivalent, PF, 30 mcg/0.3 mL dose 1 completed Flor Luna [facility] 12/27/2023 11:12:29 COVID-19, mRNA, LNP-S, bivalent, PF, 30 mcg/0.3 mL dose 2 completed Florgwen Luna [facility] 12/27/2023 11:12:48 Past Encounters Encounter ID Performer Location Encounter Start Date Encounter Closed Date Diagnosis/Indication Diagnosis SNOMED-CT Code Diagnosis ICD10 Code Diagnosis IMO Codes Diagnosis Note [id number] FRIEDA ANDERSON [address] [place] [address] 10/23/2023 08:21:08 10/28/2023 15:39:59 Cystitis 01456695 N30.90 With MDROInitia lly with Vanco and cefepime however cultures growing MDRO Klebsiella Started meropenem 1 g q12 for 7 days.start ed 10/19 for 7 full days of treatment to end 10/26.probi otic added Falls 171925173 R29.6 likely multifacto rial from neuropathy , frailty, arthritis and LE edemaCT negative for any fractures. CT Head/Brain W/O Contrast negativeIn itiated safety precaution per facility protocolPT /OT eval and tx. Peripheral venous insufficiency 01256680 I87.2 Venous insufficie ncy of both lower extremitie sDoppler LLE no DVT, symmetric erythema without increased warmth or tenderness , appears similar to previous picture taken, low suspicion for superimpos ed cellulitis Chronic di astolic heart failure 734291461 I50.32 preserved EFeuvolemi ctorsemide held in acute care d/t hypotensio n and bradycardi c 50'smonito r BP and need to restartmon itor weights Chronic ob structive pulmonary disease 54884887 J44.9 Albuterol Sulfate Nebulizati on Solution (2.5 MG/3ML) Q6 prnAdvair Jzmkbx033- 50 mcg Q12 Restless l egs syndrome 44867040 G25.81 ROPINIRole HCl Tablet 2 MG BID Type 2 jr betes mellitus 36683741 E11.21 continue monitor glucose,Li spro SSI coverageGa bapentin Capsule 300 MG at bedtime for neuropathy pain.trama dol 25 mg q12 prn Paroxysmal atrial flutter 123554101 I48.92 not on anticoagAm iodarone HCl Tablet 200 MG dailymonit or HR Mixed anxi ety and depressive disorder 554986719 F41.8 Escitalopr am Oxalate Tablet 30 mg dailymonit or for mood and behavorial changes. Anemia of chronic disease 682526064 D63.8 Ferrous Sulfate Tablet 325 dailymonit or labs prn Hyperlipidemia 37230881 E78.5 Atorvastat in 20 mg dailymonit or labs Gastroesop hageal reflux disease 379035925 K21.9 Pantoprazo le40 mg dailymonit or for gi upset. Chronic back pain 458087 002 G89.29 tramadol 25 mg Q12 prngabapen tin 300 mg at hs Vitamin D deficiency 347 96625 E55.9 Cholecalci ferol 2000 UNIT daily Pain of right wrist 3169 775306 28477 M25.531 x-ray was ordered which was negative.P T/OT eval and tx Bradycardia 95286285 R00 .1 in acute care HR as low as 40snormal TX/QRS/QTc prolongati on..T nonspecifi c isolated T wave inversions on single lead V2 were present on recent study from 07/19/2023 . No evidence of acute ischemic changes. Chronic ki dney disease 545601401 N18.9 Renal function is at baselinemo nitor labsavoid nephrotoxi c drugs Asthenia 14654374 R53.1 hx of multiple fallsambul ates with walkerPT/O T eval and treat [id number] Naomi Todd MD [address] [place] [address] 10/24/2023 16:17:28 11/06/2023 11:12:59 Cystitis 27598065 N30.00 Continue meropenem 1 g q 12 hrs to complete 7 d course on 10/26.Monit or for recurrent sxs. Falls 784367927 R29.6 Likely multifacto rial from neuropathy , frailty, arthritis and LE edemaVery deconditio christoph.Needs PT/OT for strengthen ing, balance, gait training, safety and function.C ontinue fall precaution s.Monitor for safety. Peripheral venous insufficiency 93611239 I87.2 Almost at baseline per pt.Continu e local care and elevation. Chronic di astolic heart failure 193597376 I50.32 Appears euvolemic. Monitor for need for diuretics. Monitor resp. status, fluid status, wts and labs. Chronic ob structive pulmonary disease 82442893 J43.8 No current sxs.Contin ue Advair 250/50 BID and albuterol nebs q 6 hrs prnMonitor resp status. Restless l egs syndrome 04519320 G25.81 Continue ropinirole 2 mg BIDMonitor sxs. Type 2 jr betes mellitus 12157562 E11.21 Diet controlled .Sugar <150 yest, not checked previously .Continue gabapentin 300 MG qhs and tramadol q 12 hrs prn for neuropathy Monitor fingerstic ks BID x 1 wk with SSI, d/c if not needing coverage. Paroxysmal atrial flutter 888119974 I48.92 Rate in good control on amiodarone 200 mg qdNot on AC due to age and fall riskMonito r HR Mixed anxi ety and depressive disorder 714108655 F41.8 Mood down today due to concerns about living situation. Continue escitalopr am 30 mg qdMonitor mood.Consu lt psych prn Anemia of chronic disease 489605308 D63.8 Continue FeSO4 325 mg qd with vitamin C 250 mg qd for absorption .Monitor labs Hyperlipidemia 01241638 E78.49 Continue atorvastat in 20 mg qdMonitor labs yearly Gastroesop hageal reflux disease 040927580 K21.9 No current sxs.Contin ue pantoprazo le 40 mg qdMonitor sxs Chronic ki dney disease 512907733 N18.9 In hx, but renal function WNL yest.Cindy nue to avoid nephrotoxi c meds as able.Monit or labs.Renal consult prn. Chronic back pain 601046 002 G89.29 Continue tramadol 25 mg q 12 hrs prn and gabapentin 300 mg qhsMonitor sxs. [id number] CARLTON MINA, FRIEDA CLIFFORD JENSEN [address] [place] [address] [place] [address] 10/29/2023 07:42:54 11/01/2023 08:26:34 Cystitis 18803129 N30.90 With MDROInitia lly with Vanco and cefepime however cultures growing MDRO Klebsiella Started meropenem 1 g q12 for 7 days.start ed 10/19 for 7 full days of treatment to end 10/26.- completed denies any dysuriapro biotic added Falls 028034916 R29.6 continue to work with PT/OT for strengthen inglikely multifacto rial from neuropathy , frailty, arthritis and LE edemaCT negative for any fractures. CT Head/Brain W/O Contrast negativeIn itiated safety precaution per facility protocol Peripheral venous insufficiency 96708739 I87.2 BLE edema left greater than right Venous insufficie ncy of both lower extremitie sDoppler LLE no DVT, symmetric erythema without increased warmth or tenderness , appears similar to previous picture taken, low suspicion for superimpos ed cellulitis Chronic di astolic heart failure 335457956 I50.32 preserved EFeuvolemi ctorsemide held in acute care d/t hypotensio n and bradycardi c 50'smonito r BP and need to restartmon itor weights Chronic ob structive pulmonary disease 84067290 J44.9 Albuterol Sulfate Nebulizati on Solution (2.5 MG/3ML) Q6 prnAdvair Ajoetl937- 50 mcg Q12 Restless l egs syndrome 58901789 G25.81 ROPINIRole HCl Tablet 2 MG BID Type 2 jr betes mellitus 08456490 E11.21 continue monitor glucose,Li spro SSI coverageGa bapentin Capsule 300 MG at bedtime for neuropathy pain.trama dol 25 mg q12 prn Paroxysmal atrial flutter 472923255 I48.92 not on anticoagAm iodarone HCl Tablet 200 MG dailymonit or HR Mixed anxi ety and depressive disorder 958374750 F41.8 Escitalopr am Oxalate Tablet 30 mg dailymonit or for mood and behavorial changes. Anemia of chronic disease 176423455 D63.8 Ferrous Sulfate Tablet 325 dailymonit or labs prn Hyperlipidemia 15072516 E78.5 Atorvastat in 20 mg dailymonit or labs Gastroesop hageal reflux disease 761643222 K21.9 Pantoprazo le40 mg dailymonit or for gi upset. Chronic back pain 773241 002 G89.29 tramadol 25 mg Q12 prngabapen tin 300 mg at hs Vitamin D deficiency 347 76876 E55.9 Cholecalci ferol 2000 UNIT daily Pain of right wrist 3169 271760 13073 M25.531 x-ray was ordered which was negative.P T/OT eval and tx Bradycardia 79697665 R00 .1 in acute care HR as low as 40snormal TX/QRS/QTc prolongati on..T nonspecifi c isolated T wave inversions on single lead V2 were present on recent study from 07/19/2023 . No evidence of acute ischemic changes. Chronic ki dney disease 874065784 N18.9 Renal function is at baselinemo nitor labsavoid nephrotoxi c drugs Asthenia 21656518 R53.1 hx of multiple fallsambul ates with walkerPT/O T eval and treat [id number] FRIEDA ANDERSON [address] [place] [address] 11/01/2023 08:04:11 11/06/2023 11:37:03 Cystitis 65282734 N30.90 With MDROInitia lly with Vanco and cefepime however cultures growing MDRO Klebsiella Started meropenem 1 g q12 for 7 days.start ed 10/19 for 7 full days of treatment to end 10/26.- completed denies any dysuriapro biotic added Pruritus of vagina 77586 003 L29.3 Reports vaginal itchiness for over [...] BID for 7 days and re eval. [id number] FRIEDA ANDERSON [address] [address] 11/04/2023 12:13:42 11/06/2023 12:50:39 Falls 745154817 R29.6 see/HPiwit nessed fallwith injury/lac eration above left eye.no LOC Facial laceration 141234 008 S01.81XA above left eye/about 2 cm in lengthblee ding controlled , wrapped in gauze dressing. [id number] FRIEDA ANDERSON [address] [address] 11/06/2023 09:19:58 11/13/2023 12:17:34 Falls 453635354 R29.6 see/HPiwit nessed fallwith injury/lac eration above left eye.no LOCContinu e PT/OT Facial laceration 068405 008 S01.81XA above left eye/about 2 cm in lengthappe ars to be about 10-12 small dissolvabl e sutures in placedenie s any visual changes or headache.n ursing to monitor healing Pruritus of vagina 07002 003 L29.3 Reports vaginal itchiness for over [...] days and re eval. Chronic back pain 869085 002 G89.29 denies any new discomfort post falltramad ol 25 mg Q12 prngabapen tin 300 mg at hs Asthenia 49658304 R53.1 hx of multiple fallsambul ates with walkerPT/O T continue [id number] FRIEDA ANDERSON [address] [place] [address] 11/08/2023 13:54:21 11/13/2023 13:10:32 Falls 897208075 R29.6 on 11/04/23wit nessed fallwith injury/lac eration above left eye.no LOCContinu e PT/OT Facial laceration 080850 008 S01.81XA above left eye/about 2 cm in lengthappe ars to be about 10-12 small di-solvabl e sutures in placedenie s any visual changes or headache.n ursing to monitor healing Pruritus of vagina 90301 003 L29.3 Reports vaginal itchiness for over [...] assure med is applied. Chronic back pain 854813 002 G89.29 denies any new discomfort post falltramad ol 25 mg Q12 prngabapen tin 300 mg at hs Asthenia 58684853 R53.1 hx of multiple fallsambul ates with walkerPT/O T continue [id number] FRIEDA ANDERSON [address] [place] [address] 11/13/2023 10:59:21 11/15/2023 09:29:54 Falls 616567970 R29.6 on 11/04/23wit nessed fallwith injury/lac eration above left eye.no LOCContinu e PT/OT Facial laceration 913974 008 S01.81XA healingabo ve left eye/about 2 cm in lengthappe ars to be about 10-12 small di-solvabl e sutures in placedenie s any visual changes or headache.n ursing to monitor healing Pruritus of vagina 08470 003 L29.3 improving, continues with triamcinol one topical cream BID Chronic back pain 185990 002 G89.29 denies any new discomfort post falltramad ol 25 mg Q12 prngabapen tin 300 mg at hs Asthenia 51904408 R53.1 hx of multiple fallsambul ates with walkerPT/O T continues [id number] FRIEDA ANDERSON [address] [address] 11/18/2023 07:58:48 11/21/2023 13:26:13 Falls 943829262 R29.6 on 11/04/23wit nessed fallwith injury/lac eration above left eye.no LOCContinu e PT/OT Facial laceration 441804 008 S01.81XA healingabo ve left eye/about 2 cm in lengthappe ars to be about 10-12 small di-solvabl e sutures in placedenie s any visual changes or headache.n ursing to monitor healing Pruritus of vagina 29383 003 L29.3 improving, continues with triamcinol one topical cream BID Chronic back pain 046314 002 G89.29 denies any new discomfort post falltramad ol 25 mg Q12 prngabapen tin 300 mg at hs Asthenia 38880155 R53.1 hx of multiple fallsambul ates with walkerPT/O T continues [id number] FRIEDA ANDERSON [address] [address] 11/21/2023 13:49:57 11/25/2023 12:31:48 Falls 848783118 R29.6 on 11/04/23wit nessed fallwith injury/lac eration above left eye.no LOCContinu e PT/OT Facial laceration 753735 008 S01.81XA 11/04 s/p fall for laceration above left eye.healin g no s/sx of infectiona rolan left eye/about 2 cm in lengthappe ars to be about 10-12 small di-solvabl e sutures in placedenie s any visual changes or headache.n ursing to monitor healing Pruritus of vagina 23574 003 L29.3 improving, continues with triamcinol one topical cream BID Chronic back pain 498023 002 G89.29 denies any new discomfort post falltramad ol 25 mg Q12 prngabapen tin 300 mg at hs Asthenia 83805539 R53.1 hx of multiple fallsambul ates with walkerPT/O T continues [id number] FRIEDA ANDERSON [address] [address] 11/26/2023 07:45:18 11/28/2023 10:55:36 Falls 220481288 R29.6 on 11/04/23wit nessed fallwith injury/lac eration above left eye.no LOCContinu e PT/OT Facial laceration 490762 008 S01.81XA 11/04 s/p fall for laceration above left eye.healin g no s/sx of infectiona rolna left eye/about 2 cm in lengthappe ars to be about 10-12 small di-solvabl e sutures in placedenie s any visual changes or headache.n ursing to monitor healing Pruritus of vagina 42085 003 L29.3 triamcinol one topical cream BIDkeep area clean and dry. Chronic back pain 949072 002 G89.29 tramadol 25 mg Q12 prngabapen tin 300 mg at hs Asthenia 41149572 R53.1 hx of multiple fallsambul ates with walkerPT/O T continues [id number] FRIEDA ANDERSON [address] [address] 11/29/2023 08:06:37 12/03/2023 11:20:10 Falls 119742477 R29.6 on 11/04/23wit nessed fallwith injury/lac eration above left eye.no LOCContinu e PT/OT Facial laceration 846372 008 S01.81XA healed11/04 s/p fall for laceration above left eye.above left eye/about 2 cm in lengthdeni es any visual changes or headache. Pruritus of vagina 25281 003 L29.3 triamcinol one topical cream BIDkeep area clean and dry. Chronic back pain 256820 002 G89.29 tramadol 25 mg Q12 prngabapen tin 300 mg at hs Asthenia 26796101 R53.1 hx of multiple fallsambul ates with walkerPT/O T continues [id number] FRIEDA ANDERSON [address] [address] 12/04/2023 07:53:49 12/10/2023 10:21:37 Falls 468114811 R29.6 on 11/04/23wit nessed fallwith injury/lac eration above left eye.no LOCContinu e PT/OT Facial laceration 474433 008 S01.81XA healed11/04 s/p fall for laceration above left eye.above left eye/about 2 cm in lengthdeni es any visual changes or headache. Pruritus of vagina 71930 003 L29.3 triamcinol one topical cream BIDkeep area clean and dry. Chronic back pain 288431 002 G89.29 tramadol 25 mg Q12 prngabapen tin 300 mg at hs Asthenia 36544947 R53.1 hx of multiple fallsambul ates with walkerPT/O T continues Cellulitis of right lower limb 7210459525 2693448 L03.115 see hpistarted keflex on 11/30/23 for 7 days with probiotic for 10 daysencour aged to elevated lower extremitie s to elevate edemamonit or for resolution [id number] FRIEDA ANDERSON [address] [address] 12/11/2023 10:06:59 12/13/2023 13:01:47 Falls 122811241 R29.6 no recent falls reported Facial laceration 292599 008 S01.81XA healed11/04 s/p fall for laceration above left eye.above left eye/about 2 cm in lengthdeni es any visual changes or headache. Pruritus of vagina 94357 003 L29.3 triamcinol one topical cream BIDkeep area clean and dry. Chronic back pain 083985 002 G89.29 tramadol 25 mg Q12 prngabapen tin 300 mg at hs Cellulitis of right lower limb 3067510653 7247268 L03.115 resolved. [id number] FRIEDA ANDERSON [address] [address] 12/18/2023 09:20:38 12/20/2023 14:10:33 Chronic diastolic heart failure 616707721 I50.32 preserved EFeuvolemi ctorsemide held in acute care d/t hypotensio n and bradycardi c 50'smonito r BP and need to restartmon itor weights Mixed anxi ety and depressive disorder 793802625 F41.8 stable and pleasantEs citalopram Oxalate Tablet 30 mg dailymonit or for mood and behavorial changes. Type 2 rj betes mellitus 04435728 E11.21 continue monitor glucose,Li spro SSI coverageGa bapentin Capsule 300 MG at bedtime for neuropathy pain.trama dol 25 mg q12 prn [id number] FRIEDA ANDERSON [address] [address] 12/25/2023 11:16:29 12/30/2023 16:09:32 Chronic diastolic heart failure 460943483 I50.32 preserved EFBLE +1was on torsemide but was d/c in acute caremonito r weights- [facility] weight Mixed anxi ety and depressive disorder 250108978 F41.8 stable and pleasantEs citalopram Oxalate Tablet 30 mg dailymonit or for mood and behavorial changes. Type 2 jr betes mellitus 07879509 E11.21 continue monitor glucose,Li spro SSI coverageGa bapentin Capsule 300 MG at bedtime for neuropathy pain.trama dol 25 mg q12 prn [id number] Naomi Todd MD [address] [address] 12/26/2023 19:19:22 01/31/2024 14:21:17 Cystitis 28390844 N30.00 Completed course of meropenem 1 g q 12 hrs on 10/26.Monit or for recurrent sxs. Falls 952739142 R29.6 Continues to be a high fall risk and needs CG and sometimes an assist for transfers. No longer getting acute PT/OT services, restart as able.Cindy nue fall precaution s.Monitor for safety. Peripheral venous insufficiency 37943799 I87.2 No current sxs.Contin ue local care and elevation. Chronic di astolic heart failure 380738792 I50.32 Appears euvolemic. Monitor for need for diuretics. Monitor resp. status, fluid status, wts and labs. Chronic ob structive pulmonary disease 35691323 J43.8 Continues with no sxs.Contin ue Advair 250/50 BID and albuterol nebs q 6 hrs prnMonitor resp status. Type 2 jr betes mellitus 47739038 E11.21 Sugars were all <150 when checked for 3 days.Cindy nue gabapentin 300 MG qhs and tramadol q 12 hrs prn for neuropathy Monitor fingerstic ks prn and HgA1C q 3-6 months Paroxysmal atrial flutter [id number] I48.92 Rate remains in good control on amiodarone 200 mg qdNo AC due to age and fall riskMonito r HR Restless l egs syndrome 87391609 G25.81 Continue ropinirole 2 mg BIDMonitor sxs. Mixed anxi ety and depressive disorder 161876395 F41.8 Mood stableCont inue escitalopr am 30 mg qdMonitor mood.Consu lt psych prn Anemia of chronic disease 196435072 D63.8 Hgb has been stable.Con tinue FeSO4 325 mg qd with vitamin C 250 mg qd for absorption .Monitor labs Hyperlipidemia 75324895 E78.49 Continue atorvastat in 20 mg qdMonitor labs yearly Gastroesop hageal reflux disease 857158649 K21.9 No current sxs.Contin ue pantoprazo le 40 mg qdMonitor sxs Chronic ki dney disease 061884991 N18.1 Renal function remains WNLContinu e to avoid nephrotoxi c meds as able.Monit or labs.Renal consult prn. Chronic back pain 416255 002 G89.29 Continue tramadol 25 mg q 12 hrs prn and gabapentin 300 mg qhsMonitor sxs. [id number] FRIEDA ANDERSON [address] [place] [address] [place] [address] 01/01/2024 08:18:43 01/06/2024 15:39:22 Chronic diastolic heart failure 452460850 I50.32 preserved EFBLE +1was on torsemide but was d/c in acute caremonito r weights- no recent weight in [facility] updated to obtain current weight Mixed anxi ety and depressive disorder 924252895 F41.8 stable and pleasantEs citalopram Oxalate Tablet 30 mg dailymonit or for mood and behavorial changes. Type 2 jr betes mellitus 94184004 E11.21 continue monitor glucose,Li spro SSI coverageGa bapentin Capsule 300 MG at bedtime for neuropathy pain.trama dol 25 mg q12 prn Spasm 63215197 R25.2 12/31/23 nursing reported pt was having left upper leg/buttoc k pain/spasm tramadol changed from q12 to q6 and robaxin 500 mg q 6 prn addedtoday pt states that medication was effectivew ill monitor for worsening sx [id number] [facility]EDA ANDERSON [facility] [address] [place] [address] 01/08/2024 13:26:41 01/10/2024 11:20:05 Chronic diastolic heart failure 998489852 I50.32 no weight gain notedconti nue furosemide 10 mg dailymonit or labs , weightsmon itor for cardiopulm onary sx 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 Type 2 jr betes mellitus 31076849 E11.21 continue monitor glucose,co ntinue Lispro SSI coverageco ntinue Gabapentin Capsule 300 MG at bedtime for neuropathy pain.cindy nue tramadol 50 mg q 8 prn Spasm 59848288 R25.2 to LLE and glutealpai n has improvedRo baxin 500 mg discontinu e -it was ordered for short term use onlycontin ue tramadol 50 mg prn [id number] FRIEDA ANDERSON [facility] [address] [place] [address] 01/15/2024 09:55:29 01/27/2024 16:00:52 Cervical radiculopathy 41267184 M54.12 start diclofenac gel daily and q8 prncontinu e tramadol 50 mg Q6 prncontinu e gabapentin 300 mg at hs add 300 mg QDrefer to physical therapy for eval and tx [id number] FRIEDA ANDERSON [address] [address] 01/22/2024 09:25:19 01/28/2024 11:32:54 Cervical radiculopathy 52415472 M54.12 continue diclofenac gel daily and q8 prncontinu e tramadol 50 mg Q6 prncontinu e gabapentin 300 mg at hs add 300 mg QDper therapy patient neck pain is chronic and she was previously treated and recommende d Chronic di astolic heart failure 493296731 I50.32 monitor labs , weights , edemamonit or for cardiopulm onary sxencourag ed leg elevation/ wraps as needed. Gastroesop hageal reflux disease 468986102 K21.9 Pantoprazo le40 mg dailymonit or for gi upset. Mixed anxi ety and depressive disorder 806692667 F41.8 continue Escitalopr am Oxalate Tablet 30 mg dailymonit or for mood and behavorial changes. Type 2 jr betes mellitus 60429588 E11.21 continue monitor glucose,co ntinue Lispro SSI coverageco ntinue Gabapentin Capsule 300 MG at bedtime for neuropathy pain.cindy nue tramadol 50 mg q 8 prn [id number] FRIEDA ANDERSON [address] [address] 01/27/2024 10:53:32 02/17/2024 12:46:54 Cervical radiculopathy 87781557 M54.12 continue diclofenac gel daily and q8 prncontinu e tramadol 50 mg Q6 prncontinu e gabapentin 300 mg at hs add 300 mg QD Chronic di astolic heart failure 313611602 I50.32 monitor labs , weights , edemamonit or for cardiopulm onary sxencourag ed leg elevation/ wraps as needed. Gastroesop hageal reflux disease 394384807 K21.9 Pantoprazo le40 mg dailymonit or for gi upset. Mixed anxi ety and depressive disorder 524443109 F41.8 continue Escitalopr am Oxalate Tablet 30 mg dailymonit or for mood and behavorial changes. Type 2 jr betes mellitus 64920902 E11.21 bgl have been stablecont inue monitor glucose,co ntinue Lispro SSI coverageco ntinue Gabapentin Capsule 300 MG at bedtime for neuropathy pain.cindy nue tramadol 50 mg q 8 prn Falls 092470159 R29.6 no recent fallsConti nues to be a high fall risk and needs CG and sometimes an assist for transfers. she has reduce functional mobility to left lower extremity due to pain in her ankle.Alba ent would benefit from an AFO to provide support to LLE/ankle and reduce pain. [id number] FRIEDA ANDERSON [address] [address] 01/30/2024 10:23:09 02/04/2024 14:43:29 Bleeding from nose 233167777 R04.0 see hpistart afrin 2 spray to right nares q12 x 5days.janice loera for recurrence monitor BP/rebound congestion [id number] FRIEDA ANDERSON [address] [address] 02/05/2024 09:31:19 02/11/2024 09:17:30 Bleeding from nose 652159836 R04.0 resolved. Cervical radiculopathy 68742654 M54.12 continue diclofenac gel daily and q8 prncontinu e tramadol 50 mg Q6 prncontinu e gabapentin 300 mg at hs add 300 mg QDper therapy patient neck pain is chronic and she was previously treated and recommende d Chronic di astolic heart failure 653063394 I50.32 monitor labs , weights , edemamonit or for cardiopulm onary sxencourag ed leg elevation/ wraps as needed. Gastroesop hageal reflux disease 793263392 K21.9 Pantoprazo le40 mg dailymonit or for gi upset. Mixed anxi ety and depressive disorder 362137549 F41.8 continue Escitalopr am Oxalate Tablet 30 mg dailymonit or for mood and behavorial changes. Type 2 jr betes mellitus 97163633 E11.21 continue monitor glucose,co ntinue Lispro SSI coverageco ntinue Gabapentin Capsule 300 MG at bedtime for neuropathy pain.cindy nue tramadol 50 mg q 8 prn [id number] Naomi Todd MD [address] [address] 02/28/2024 13:56:25 03/10/2024 11:09:37 Pain in left foot [id number] 60903 M79.672 With new deformity of left great toe, with rubbing and irritation between toes and possible early cellulitis .Will start doxy 100 mg BID x 7 days with probiotic BIDWill start warm soaks with epsom salts BID for 15 .Elevat e as much as possible.G auze between toes to protect.Po diatry consult, if healthdriv e not coming next week, will consult Dr. Tanenr [phone] can have wound care see her for further advice.Con tinue APAP 650 mg q 6 hrs prn and tramadol 50 mg q 8 hrs prn for pain. Diarrhea 12791580 R19.7 Only has happened one time so far, possibly from stress.Ord ered imodium prnMonitor [id number] FRIEDA ANDERSON [address] [place] [place] [address] 03/04/2024 14:57:51 03/10/2024 11:43:05 Pain in left foot 6951933489 00483 M79.672 deformity of left great toe, with [...] for pain. Blister of toe without infection 44173224 S90.425A continue warm soaks as aboveclean se left 2nd toe with soap and warm water, hydrogen peroxideap ply petroleum and cover with gauze or non stick dressing daily and prnmonitor for healing. [id number] FRIEDA ANDERSON [address] [place] [address] 03/06/2024 14:42:26 03/10/2024 12:16:05 Mixed anxiety and depressive disorder 311902323 F41.8 continue Escitalopr am Oxalate Tablet 30 mg dailywill adjust trazodone and increased from 12.5 mg to 25 mg scheduled at HS per psych rec.and continue prn trazodone 12.5 mg bid prn, anxiety for 14 days.monit or for mood and behavorial changes. [id number] FRIEDA ANDERSON [address] [address] 03/10/2024 10:17:01 03/16/2024 15:45:17 Pain in left foot 6563800474 44807 M79.672 deformity of left great toe, with [...] coming next week, will consult Dr. Tanner [phone] can have wound care see her for further advice- will be seen by wound on ontinu e APAP 650 mg q 6 hrs prn and tramadol 50 mg q 8 hrs prn for pain.she does not have hx of gout but will order uric acid d/t her still having pain despite abx use for 4 days. Blister of toe without infection 52300584 S90.425A continue warm soaks as aboveclean se left 2nd toe with soap and warm water, hydrogen peroxidedr essing changes to Alginate/D CD QD [id number] FRIEDA ANDERSON [address] [address] 03/16/2024 09:19:11 03/19/2024 16:19:43 Pain in left foot 5947459372 97882 M79.672 baseline deformity due to hammer toeabx [...] infection. Mixed anxi ety and depressive disorder 970013428 F41.8 continue Escitalopr am Oxalate Tablet 30 mg dailyrepor ts although medication s have been helpful that she continues with difficultl y falling asleepand evening anxiety.in creased trazodone to 25 mg at HScontinue trazodone to 12.5 mg q12 prnmonitor for mood and behavorial changes. [id number] FRIEDA ANDERSON [address] [address] 03/17/2024 10:40:42 03/20/2024 08:44:03 Bleeding from nose 368060090 R04.0 minor nasal bleeding after blowing her nosewill discussed avoiding nose blowing, gently sniff insteadavo id picking nose or rubbing noseafrin nasal 1 spray BID prnsaline nasal spray BID Pain of to e of left foot [id number] 35613 M79.675 reports pain to left great toe and second great toenailini tially flinching on exam when toe(s) were touched , states pain requesting toenail to be cut on 2ndshe provided clippers, I trimmed and file all toenail, she reports toes feeling much betterther e was no observatio n of facial grimacing, flinching or pulling away during procedure. [id number] MD DARRIN Perry JENSEN [address] [place] [address] 03/30/2024 16:40:06 04/01/2024 10:48:39 Falls 079151243 R29.6 Continues to be a high fall risk.Getti ng OT for mobility and safety, primarily wheelchair level.Cont inue fall precaution s.Monitor for safety. Peripheral venous insufficiency 73300426 I87.2 No current sxs.Contin ue local care and elevation. Chronic di astolic heart failure 172236187 I50.32 Appears euvolemic. Continue furosemide 10 mg qdMonitor resp. status, fluid status, wts and labs. Chronic ob structive pulmonary disease 75166025 J43.8 Continues with no sxs.Contin ue Advair 250/50 BID and albuterol nebs q 6 hrs prnMonitor resp status. Type 2 jr betes mellitus 20688519 E11.21 Stable on no meds.Last HgA1C was 6.1 in 06/2023.Con tinue gabapentin 300 MG qhs and tramadol qhs scheduled and BID prn for neuropathy Monitor fingerstic ks prn and HgA1C q 3-6 months Paroxysmal atrial flutter 530685119 I48.92 Rate remains in good control on amiodarone 200 mg qdNo AC due to age and fall riskMonito r HR Restless l egs syndrome 99142737 G25.81 Continue ropinirole 2 mg BIDMonitor sxs. Mixed anxi ety and depressive disorder 263257303 F41.8 Mood sl. down due to pain not improving. Continue escitalopr am 30 mg qdMonitor mood.Consu lt psych prn Anemia of chronic disease 801268861 D63.8 Hgb remains stable.Con tinue FeSO4 325 mg qd with vitamin C 250 mg qd for absorption .Monitor labs Hyperlipidemia 79536601 E78.49 Continue atorvastat in 20 mg qdMonitor labs yearly Gastroesop hageal reflux disease 086621103 K21.9 No current sxs.Contin ue pantoprazo le 40 mg qdMonitor sxs Chronic ki dney disease 630023597 N18.2 Renal function remains stableCont inue to avoid nephrotoxi c meds as able.Monit or labs.Renal consult prn. Chronic back pain 656487 002 G89.29 Continue meds as above.Janice tor sxs. Bleeding from nose 85971 6005 R04.0 Resolved. Pain of to e of left foot 4351799819 68464 M79.675 No improvemen t since toenails cut on 03/17.Left 2nd toe still red and tender.Esteban leung have nursing set up appt with Dr. Lu Holder who has offices in [facility], [place] and [place]. [facility] Adrian # is [phone] local care until then. Using padding between toes to keep the pressure off.Monito r for signs of infection. Will schedule hs tramadol and keep 50 mg BID prn [id number] FRIEDA ANDERSON DARRIN STYLES [address] [place] [address] [place] [phone] 04/03/2024 11:03:23 04/28/2024 07:31:02 Cellulitis of foot 607787718 L03.119 left footsuspec gloria do to sx.recentl y treated for cellulitis left great toe with doxycyclin ewill start cephalexin 250 mg Q 6 hr for 5 days.will add probiotic BID for 7 daysmonito r for resolution . [id number] MD DARRIN Perry JENSEN [address] [place] [address] [place] [address] 04/13/2024 17:19:14 04/28/2024 08:01:43 Osteomyelitis 04822846 M86.272 Continue ertapenem 1 gm IV qd [...] Dr. Lu Holder who has offices in [facility] and [place]. [place] # is Falls [id number] R29.6 Continues to be a high fall risk.Able to restart rehab after hospitaliz ation.Need s PT/OT for strengthen ing, balance, gait training, safety and function.C ontinue fall precaution s.Monitor for safety. Chronic di astolic heart failure 286544611 I50.32 Appears euvolemic. Continue furosemide 10 mg qdMonitor resp. status, fluid status, wts and labs. Chronic ob structive pulmonary disease 67024918 J43.8 Continues with no sxs.Contin ue Advair 250/50 BID and albuterol nebs q 6 hrs prnMonitor resp status. Type 2 jr betes mellitus 71467514 E11.21 Sugars inpt were all <100Last HgA1C was 6.1 in 06/2023.Con tinue gabapentin 300 MG qhs and other pain meds as above for neuropathy .Monitor fingerstic ks prn and HgA1C q 3-6 months Paroxysmal atrial flutter 070825498 I48.92 Rate remains in good control on amiodarone 200 mg qdNo AC due to age and fall riskMonito r HR Restless l egs syndrome 28557546 G25.81 Continue ropinirole 2 mg BIDMonitor sxs. Mixed anxi ety and depressive disorder 764204574 F41.8 Mood sl. down due to pain not improving. Continue escitalopr am 30 mg qd, trazadone 25 mg qhs and 12.5 mg BID prn.Monito r mood.Consu lt psych prn Anemia of chronic disease 760066338 D63.8 Hgb remains stable.Con tinue FeSO4 325 mg qd with vitamin C 250 mg qd for absorption .Monitor labs Hyperlipidemia 61628953 E78.49 Continue atorvastat in 20 mg qdMonitor labs yearly Gastroesop hageal reflux disease 541649217 K21.9 No current sxs.Contin ue pantoprazo le 40 mg qdMonitor sxs Chronic ki dney disease 131138193 N18.2 Renal function remains stableCont inue to avoid nephrotoxi c meds as able.Monit or labs.Renal consult prn. Chronic back pain 313546 002 G89.29 Continue meds as above.Janice tor sxs. Peripheral venous insufficiency 63262866 I87.2 No current sxs.Contin ue local care and elevation. [id number] FRIEDA ANDERSON [address] [place] [address] 04/16/2024 08:54:52 04/28/2024 08:26:12 Osteomyelitis 66358064 M86.272 Continue ertapenem 1 gm IV qd [...] in [facility], [place] and [place]. [place] # is Falls [id number] R29.6 Continues to be a high fall risk.Able to restart rehab after hospitaliz ation.Need s PT/OT for strengthen ing, balance, gait training, safety and function.C ontinue fall precaution s.Monitor for safety. Chronic di astolic heart failure 959400934 I50.32 Appears euvolemic. Continue furosemide 10 mg qdMonitor resp. status, fluid status, wts and labs. Chronic ob structive pulmonary disease 02922255 J43.8 Continues with no sxs.Contin ue Advair 250/50 BID and albuterol nebs q 6 hrs prnMonitor resp status. Paroxysmal atrial flutter 769002444 I48.92 Rate remains in good control on amiodarone 200 mg qdNo AC due to age and fall riskMonito r HR Restless l egs syndrome 56626235 G25.81 Continue ropinirole 2 mg BIDMonitor sxs. Mixed anxi ety and depressive disorder 527022242 F41.8 Continue escitalopr am 30 mg qd, trazadone 25 mg qhs and 12.5 mg BID prn.Monito r mood.Consu lt psych prn Anemia of chronic disease 934955065 D63.8 Continue FeSO4 325 mg qd with vitamin C 250 mg qd for absorption .Monitor labs Hyperlipidemia 85880121 E78.49 Continue atorvastat in 20 mg qdMonitor labs yearly Gastroesop hageal reflux disease 970426826 K21.9 No current sxs.Contin ue pantoprazo le 40 mg qdMonitor sxs [id number] FRIEDA ANDERSON [address] [place] [address] [place] [address] 04/20/2024 10:04:50 04/28/2024 08:59:08 Osteomyelitis 16454693 M86.272 left foot 2nd toe with woundgrima [...] Dr. Lu Holder who has offices in [facility] and [place]. [place] # is Chronic di astolic heart failure 145646504 I50.32 Appears euvolemic. Continue furosemide 10 mg qdMonitor resp. status, fluid status, wts and labs. Chronic ob structive pulmonary disease 19162236 J43.8 breathing easy and unlabored. Continue Advair 250/50 BID and albuterol nebs q 6 hrs prnMonitor resp status. Mixed anxi ety and depressive disorder 116040446 F41.8 her mood is normal reports eating and drinking ok.Continu e escitalopr am 30 mg qd, trazadone 25 mg qhs and 12.5 mg BID prn.Monito r mood.Consu lt psych prn [id number] Naomi Todd MD [facility] [address] [facility] [place] [address] 04/23/2024 22:13:47 04/30/2024 18:09:13 Osteomyelitis 78013792 M86.272 Continue ertapenem 1 gm IV qd [...] Lu Holder's office again. Has offices in [facility] and [place]. [place] # is Falls [id number] R29.6 Is still a high fall risk.Needs PT/OT for strengthen ing, balance, gait training, safety and function.C ontinue fall precaution s.Monitor for safety. Chronic di astolic heart failure 301466727 I50.32 Remains euvolemic. Continue furosemide 10 mg qdMonitor resp. status, fluid status, wts and labs. Chronic ob structive pulmonary disease 10642792 J43.8 Continues with no sxs.Contin ue Advair 250/50 BID and albuterol nebs q 6 hrs prnMonitor resp status. Type 2 jr betes mellitus 68299646 E11.21 Sugars were all good, so not being checked regularly. Last HgA1C was 6.1 in 06/2023.Con tinue gabapentin 300 MG qhs and other pain meds as above for neuropathy .Monitor fingerstic ks prn and HgA1C q 3-6 months [id number] GOLDIE TREVIZO JENSEN [address] [place] [address] 04/30/2024 08:46:54 05/02/2024 09:31:27 Osteomyelitis 72616010 M86.272 left foot 2nd toe with wound, [...] in [facility], [place] and [place]. [place] # is Chronic di astolic heart failure 146225355 I50.32 Appears euvolemic. Continue furosemide 10 mg qdMonitor resp. status, fluid status, wts and labs. Chronic ob structive pulmonary disease 39872997 J43.8 breathing easy and unlabored. Continue Advair 250/50 BID and albuterol nebs q 6 hrs prnMonitor resp status. Mixed anxi ety and depressive disorder 585716364 F41.8 her mood is normal reports eating and drinking ok.Continu e escitalopr am 30 mg qd, trazadone 25 mg qhs and 12.5 mg BID prn.Monito r mood.Consu lt psych prn Gastroesop hageal reflux disease 116629785 K21.9 Reporting some nausea after eating, unsure if may be related to abx use. Discused with nsg., will monitor.Co ntinue pantoprazo le 40 mg qdMonitor sxs Restless l egs syndrome 28742051 G25.81 Continue requip, very helpful Headache 81768778 R51.9 history of, including migraines, for years.Most headaches in the forehead area and above eyes.APAP discussed, helps, would like it sched. if possible.Eloy iscussaarti chow nsg. who also feels it would be a good idea, so will sched. 650 mg tid.Monito r. [id number] FRIEDA ANDERSON [address] [place] [address] rd [place] [address] 05/05/2024 11:02:17 05/06/2024 15:43:52 Osteomyelitis 00386074 M86.272 left foot 2nd toe with wound, [...] in [facility], [place] and [place]. [place] # is Chronic di astolic heart failure 627573333 I50.32 Appears euvolemic. Continue furosemide 10 mg qdMonitor resp. status, fluid status, wts and labs. Chronic ob structive pulmonary disease 33988258 J43.8 breathing easy and unlabored. Continue Advair 250/50 BID and albuterol nebs q 6 hrs prnMonitor resp status. Mixed anxi ety and depressive disorder 715891628 F41.8 her mood is normal reports eating and drinking ok.Continu e escitalopr am 30 mg qd, trazadone 25 mg qhs and 12.5 mg BID prn.Monito r mood.Consu lt psych prn Gastroesop hageal reflux disease 245736747 K21.9 Continue pantoprazo le 40 mg qdMonitor sxs Restless l egs syndrome 38137724 G25.81 Continue requip, very helpful Headache 25569571 R51.9 history of, including migraines, for years.Most headaches in the forehead area and above eyes.APAP discussed, helps, would like it sched. if possible.Eloy mo. who also feels it would be a good idea, so will sched. 650 mg tid.Monito r. [id number] FRIEDA ANDERSON [address] [place], [place] [address] 05/07/2024 10:05:01 05/11/2024 16:11:56 Osteomyelitis 69080110 M86.272 Continue ertapenem 1 gm IV qd [...] Dr. Lu Holder who has offices in [facility] and [place]. [place] # is Chronic di astolic heart failure 823017220 I50.32 Appears euvolemic. Continue furosemide 10 mg qdMonitor resp. status, fluid status, wts and labs. Chronic ob structive pulmonary disease 62793610 J43.8 breathing easy and unlabored. Continue Advair 250/50 BID and albuterol nebs q 6 hrs prnMonitor resp status. Mixed anxi ety and depressive disorder 637390038 F41.8 Continue escitalopr am 30 mg qd, trazadone 25 mg qhs and 12.5 mg BID prn.Monito r mood.Consu lt psych prn Gastroesop hageal reflux disease 267050678 K21.9 Continue pantoprazo le 40 mg qdMonitor sxs Restless l egs syndrome 08392094 G25.81 Continue requip, very helpful Headache 16906629 R51.9 continue tylenol 650 mg prn.encour age to increase oral hydration. [id number] FRIEDA ANDERSON DARRIN STYLES [address] [place] [address] [place] [address] 05/11/2024 16:30:45 05/12/2024 13:09:07 Osteomyelitis 02555881 M86.272 Has been tolerating IV therapy.Co ntinue [...] in [facility], [place] and [place]. [place] # is Chronic di astolic heart failure 779907459 I50.32 euvolemic. Continue furosemide 10 mg qdMonitor resp. status, fluid status, wts and labs. Chronic ob structive pulmonary disease 64572808 J43.8 Continue Advair 250/50 BID and albuterol nebs q 6 hrs prnMonitor resp status. Mixed anxi ety and depressive disorder 428135705 F41.8 Continue escitalopr am 30 mg qd, trazadone 25 mg qhs and 12.5 mg BID prn.mood is good today. pleasant on exam.Monit or moodConsul t psych prn Gastroesop hageal reflux disease 633469997 K21.9 Continue pantoprazo le 40 mg qdMonitor sxs Restless l egs syndrome 12242036 G25.81 Continue requip 2 mg bid Headache 27499098 R51.9 continue tylenol 650 mg prn.encour age to increase oral hydration. [id number] FRIEDA ANDERSON DARRIN STYLES [address] [place] [address] [place] [address] 05/15/2024 10:17:08 05/19/2024 11:08:19 Osteomyelitis 74874095 M86.272 Has been tolerating IV therapy.Co ntinue ertapenem 1 gm IV qd until ontin ue probiotic BIDContinu e local care as ordered.Mo nitor labs (CBC, CMP, ESR, and CRP weekly until 05/18) and skin condition. Chronic di astolic heart failure 064360780 I50.32 euvolemic. Continue furosemide 10 mg qdMonitor resp. status, fluid status, wts and labs. Chronic ob structive pulmonary disease 37554768 J43.8 Continue Advair 250/50 BID and albuterol nebs q 6 hrs prnMonitor resp status. Mixed anxi ety and depressive disorder 738674083 F41.8 Continue escitalopr am 30 mg qd, trazadone 25 mg qhs and 12.5 mg BID prn.mood is good today. pleasant on exam.Monit or moodConsul t psych prn Gastroesop hageal reflux disease 487347656 K21.9 Continue pantoprazo le 40 mg qdthere has been no reported GI upset. Restless l egs syndrome 21429781 G25.81 Continue requip 2 mg bid Headache 25899244 R51.9 continue tylenol 650 mg prn.encour age to increase oral hydration. [id number] [facility] ANDERSON [facility] [address] [place] [address] [place] [address] 05/18/2024 08:44:49 05/19/2024 11:16:27 Osteomyelitis 05007382 M86.272 completed abxcontinu e probiotic BIDContinu e local care as ordered.f/ u appt. with ID later today Chronic di astolic heart failure 917752295 I50.32 stableCont inue furosemide 10 mg qdMonitor resp. status, fluid status, wts and labs. Chronic ob structive pulmonary disease 92557844 J43.8 breathing easy and unlabored. Continue Advair 250/50 BID and albuterol nebs q 6 hrs prnMonitor resp status. Mixed anxi ety and depressive disorder 963385232 F41.8 Continue escitalopr am 30 mg qd, trazadone 25 mg qhs and 12.5 mg BID prn.Monito r moodConsul t psych prn Gastroesop hageal reflux disease 813046492 K21.9 Continue pantoprazo le 40 mg qdthere has been no reported GI upset. Restless l egs syndrome 45837964 G25.81 Continue requip 2 mg bid Headache 70233448 R51.9 continue tylenol 650 mg prn.encour age to increase oral hydration. [id number] FRIEDA ANDERSON [address] [place] [address] 05/25/2024 09:58:25 05/29/2024 09:27:36 Osteomyelitis 66837482 M86.272 completed abx Chronic di astolic heart failure 862929180 I50.32 euvolemicC ontinue furosemide 10 mg qdMonitor resp. status, fluid status, wts and labs. Chronic ob structive pulmonary disease 53911318 J43.8 breathing easy and unlabored. Continue Advair 250/50 BID and albuterol nebs q 6 hrs prnMonitor resp status. Mixed anxi ety and depressive disorder 043169001 F41.8 Continue escitalopr am 30 mg qd, trazadone 25 mg qhs and 12.5 mg BID prn.Monito r moodConsul t psych prn Gastroesop hageal reflux disease 407407149 K21.9 Continue pantoprazo le 40 mg qdthere has been no reported GI upset. Restless l egs syndrome 36203213 G25.81 Continue requip 2 mg bid Headache 20908738 R51.9 continue tylenol 650 mg prn.encour age to increase oral hydration. [id number] FRIEDA ANDERSON [address] [place] [address] 06/01/2024 09:58:25 06/03/2024 09:34:34 Osteomyelitis 35812124 M86.272 completed abx Chronic di astolic heart failure 904508288 I50.32 euvolemicC ontinue furosemide 10 mg qdMonitor resp. status, fluid status, wts and labs. Chronic ob structive pulmonary disease 61084271 J43.8 breathing easy and unlabored. Continue Advair 250/50 BID and albuterol nebs q 6 hrs prnMonitor resp status. Mixed anxi ety and depressive disorder 992746931 F41.8 mood is stableCont inue escitalopr am 30 mg qd, trazadone 25 mg qhs and 12.5 mg BID prn.Monito r moodConsul t psych prn [id number] [facility] AND[facility] [address] [place] [address] [place] [address] 06/03/2024 11:42:59 06/09/2024 13:21:42 Osteomyelitis 63099000 M86.272 completed abx Chronic di astolic heart failure 753753878 I50.32 euvolemicC ontinue furosemide 10 mg qdMonitor resp. status, fluid status, wts and labs. Chronic ob structive pulmonary disease 03098856 J43.8 breathing easy and unlabored. Continue Advair 250/50 BID and albuterol nebs q 6 hrs prnMonitor resp status. 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 [id number] FRIEDA ANDERSON DARRIN JENSEN [address] [place] [address] [place] [address] 06/11/2024 11:46:23 06/15/2024 11:21:06 Osteomyelitis 56631263 M86.272 06/09:clinic ally she is stableleft foot [...] a second consult with ortho. appt 06/18/24. [id number] [facility] ANDERSON [facility] [address] [place] [address] [place] [address] 06/15/2024 09:48:35 06/17/2024 10:12:04 Osteomyelitis 39933046 M86.272 06/09:clinic ally she is stableleft foot [...] appt 06/18/24. Chronic di astolic heart failure 276239674 I50.32 euvolemicw eight stableCont inue furosemide 10 mg qdMonitor resp. status, fluid status, wts and labs. Chronic ob structive pulmonary disease 82601850 J43.8 breathing easy and unlabored. Continue Advair 250/50 BID and albuterol nebs q 6 hrs prnMonitor resp status. [id number] FRIEDA ANDERSON [address] [place] [address] 06/22/2024 08:47:12 06/24/2024 08:50:27 Osteomyelitis 35608707 M86.272 06/09:clinic ally she is stableleft foot [...] gaines. Mixed anxi ety and depressive disorder 817795859 F41.8 mood is stablerece nt room change transition to LTC, adjusting well. Most of the women she joins at activities reside on same unit, she is happy about this.Cindy nue escitalopr am 30 mg qd, trazadone 25 mg qhs and 12.5 mg BID prn.Monito r moodConsul t psych prn [id number] FRIEDA ANDERSON [address] [place] [address] 06/29/2024 10:45:15 06/30/2024 13:34:02 Osteomyelitis 06453800 M86.272 06/09:clinic ally she is stableleft foot [...] ortho. Mixed anxi ety and depressive disorder 906108025 F41.8 mood is stablerece nt room change transition to LTC, adjusting well. Most of the women she joins at activities reside on same unit, she is happy about this.Cindy nue escitalopr am 30 mg qd, trazadone 25 mg qhs and 12.5 mg BID prn.Monito r moodConsul t psych prn Chronic di astolic heart failure 150077956 I50.32 euvolemicw eight stable noted 166-168Con tinue furosemide 10 mg qdMonitor resp. status, fluid status, wts and labs. [id number] FRIEDA ANDERSON [facility] JENSEN [address] [place] [address] [place] [address] 07/02/2024 11:07:08 07/03/2024 12:50:28 Mixed anxiety and depressive disorder 232726176 F41.8 mood is stable- she denies feeling hopeless, lonely or isolated.C ontinue escitalopr am 30 mg qd, trazadone 25 mg qhs and 12.5 mg BID prn.Monito r mood for negative changes.pt encouraged to continue to engage in social activities .Consult psych prn Chronic di astolic heart failure 587782176 I50.32 euvolemic- she denies any chest pain or shortness of breathweig ht stable noted 166-168Con tinue furosemide 10 mg qdMonitor resp. status, fluid status, wts and labs. Hammer toe 206473997 M20 .42 left foot 2 nd toe-recent ly completed IV antibiotic s ertapenem 1 gm daily for 6 weeks for osteomyeli tis. she continues to have discomfort . follow up xray results: no acute abnormalit y is seen in the left foot. [id number] FRIEDA ANDERSON [address] [address] 07/07/2024 14:44:04 07/08/2024 11:39:59 Hammer toe 144429280 M20.42 left foot 2 nd toe-recent ly completed IV antibiotic s ertapenem 1 gm daily for 6 weeks for osteomyeli tis. she continues to have discomfort . follow up xray results: no acute abnormalit y is seen in the left foot. Mixed anxi ety and depressive disorder 740820329 F41.8 mood is stable- she denies feeling hopeless, lonely or isolated.C ontinue escitalopr am 30 mg qd, trazadone 25 mg qhs and 12.5 mg BID prn.Monito r mood for negative changes.pt encouraged to continue to engage in social activities .followed by psych prn recently seen 07/06 no new recommenda tion. Chronic di astolic heart failure 908144864 I50.32 euvolemic- she denies any chest pain or shortness of breathweig ht stable noted 166-168Con tinue furosemide 10 mg qdMonitor resp. status, fluid status, wts and labs. [id number] FRIEDA ANDERSON [address] [address] 07/13/2024 08:31:31 07/14/2024 11:43:51 Hammer toe 973439099 M20.42 07/13:stabl e, no worsening sx notedleft foot 2 nd toe-recent ly completed IV antibiotic s ertapenem 1 gm daily for 6 weeks for osteomyeli tis. she continues to have discomfort . follow up xray results: no acute abnormalit y is seen in the left foot. Mixed anxi ety and depressive disorder 772367165 F41.8 07/13: StableCont inue escitalopr am 30 mg qd, trazadone 25 mg qhs and 12.5 mg BID prn.Monito r mood for negative changes.pt encouraged to continue to engage in social activities .followed by psych prn recently seen 07/06 no new recommenda tion. Chronic di astolic heart failure 828139295 I50.32 07/13: stable.euv olemic- she denies any chest pain or shortness of breathweig ht stable noted 166-168Con tinue furosemide 10 mg qdMonitor resp. status, fluid status, wts and labs. [id number] FRIEDA ANDERSON [address] [address] 07/16/2024 10:15:02 07/21/2024 15:43:58 Hammer toe 415893765 M20.42 07/13:stabl e, no worsening sx notedleft foot 2 nd toe-recent ly completed IV antibiotic s ertapenem 1 gm daily for 6 weeks for osteomyeli tis. she continues to have discomfort . follow up xray results: no acute abnormalit y is seen in the left foot. Mixed anxi ety and depressive disorder 508869485 F41.8 Stable with delusional thoughts, she thinks staff is stealing her clothes.Co ntinue escitalopr am 30 mg qd, trazadone 25 mg qhs and 12.5 mg BID prn.Monito r mood for negative changes.pt encouraged to continue to engage in social activities .followed by psych prn recently seen 07/06 no new recommenda tion. Chronic di astolic heart failure 771633152 I50.32 stable.euv olemic- she denies any chest pain or shortness of breathweig ht stable noted 166-168Con tinue furosemide 10 mg qdMonitor resp. status, fluid status, wts and labs. [id number] FRIEDA ANDERSON [address] [place] [address] 07/20/2024 11:57:24 07/21/2024 16:08:03 Hammer toe 939456650 M20.42 stable, no worsening sx notedleft foot 2 nd toe-recent ly completed IV antibiotic s ertapenem 1 gm daily for 6 weeks for osteomyeli tis. she continues to have discomfort . follow up xray results: no acute abnormalit y is seen in the left foot. Mixed anxi ety and depressive disorder 805082314 F41.8 07/19: seen by psychology department chair will review notes when available. Stable with delusional thoughts, she thinks staff is stealing her clothes.Co ntinue escitalopr am 30 mg qd, trazadone 25 mg qhs and 12.5 mg BID prn.Monito r mood for negative changes.pt encouraged to continue to engage in social activities .followed by psych prn recently seen 07/06 no new recommenda tion. Chronic di astolic heart failure 085084139 I50.32 stable.euv olemic- she denies any chest pain or shortness of breathweig ht stable noted 166-168Con tinue furosemide 10 mg qdMonitor resp. status, fluid status, wts and labs. [id number] FRIEDA ANDERSON [address] [address] 07/23/2024 11:46:33 07/24/2024 11:44:07 Hammer toe 261832826 M20.42 stable, no worsening sx notedleft foot 2 nd toe-recent ly completed IV antibiotic s ertapenem 1 gm daily for 6 weeks for osteomyeli tis. she continues to have discomfort . follow up xray results: no acute abnormalit y is seen in the left foot. Mixed anxi ety and depressive disorder 408663208 F41.8 StableCont inue escitalopr am 30 mg qd, trazadone 25 mg qhs and 12.5 mg BID prn.Monito r mood for negative changes.pt encouraged to continue to engage in social activities .followed by psych prn recently seen 07/06 no new recommenda tion. Chronic di astolic heart failure 320347705 I50.32 stable.euv olemic- she denies any chest pain or shortness of breathweig ht stable noted 166-168Con tinue furosemide 10 mg qdMonitor resp. status, fluid status, wts and labs. Chronic ob structive pulmonary disease 42880777 J43.8 breathing easy and unlabored. Continue Advair 250/50 BID and albuterol nebs q 6 hrs prnMonitor resp status. [id number] FRIEDA ANDERSON [address] [address] 09/10/2024 08:43:17 09/11/2024 12:05:09 Mixed anxiety and depressive disorder 524876380 F41.8 mild emotional distress, crying during assessment 2/2 ble painContin ue escitalopr am 30 mg qd, trazadone 25 mg qhs and 12.5 mg BID prn.psych prn Chronic di astolic heart failure 481437698 I50.32 euvolemic- she denies any chest pain or shortness of breathweig ht stableCont inue furosemide 20 mg qdMonitor resp. status, fluid status, wts and labs. Chronic ob structive pulmonary disease 73082950 J43.8 breathing easy and unlabored. Continue Advair 250/50 BID and albuterol nebs q 6 hrs prnMonitor resp status. Neuropathy 754393627 G62 .9 see hpiBLE without sx of infectiono n gabapentin 300 mg at hs -she has been having increasing sx and weakness, requiring 2 people assist.dis cussed increasing gabapentin to BID and re eval in a few days for effect.hx diabetes/n ot on meds/ will get updated A1c. (06/2023 noted 6.1) Restless l egs syndrome 27702641 G25.81 Continue requip 2 mg bid [id number] FRIEDA ANDERSON [address] [address] 09/14/2024 10:23:24 09/15/2024 14:23:56 Neuropathy 875288825 G62.9 BLE without sx of infectiong abapentin 300 mg BIDshe has been having increasing sx and weakness, requiring 2 people assist.hx diabetes/n ot on meds/ will get updated A1c. (06/2023 noted 6.1) - labs ord for today not completed will re-order. Restless l egs syndrome 80877181 G25.81 Continue requip 2 mg bid [id number] FRIEDA ANDERSON [facility] JENSEN [address] [place] [address] [place] [address] 10/02/2024 11:01:09 10/05/2024 13:31:21 Pain of left ankle joint [id number] 6772907 M25.572 localizedn on pitting left ankle swelling, no redness or warmthno foot discolorat ion, color is normal+CMS , pain with ROMplan for xray, labs with uric acid,apply ice 15 minutes to ankle TIDapply tyrone wrap compressio n dailywill schedule tylenol 650 mg TID and Motrin 400 mg BIDPT/OT eval and tx [id number] FRIEDA ANDERSON DARRIN [address]ENSEN[address] [place] [address] 10/05/2024 11:01:37 10/06/2024 13:54:09 Pain of left ankle joint 6809643113 8967365 M25.572 localized/ swelling noted to have improved [...] BIDPT/OT eval and tx Contusion of thigh 19731 003 S70.10XA see hpi/left thightende r to touchmonit or as it healsdiscu ssed with nursingcon tinue scheduled tylenol [id number] Rex Bass MD [address] [place] [address] 11/25/2024 11:52:19 11/26/2024 15:26:27 Acute low back pain 419599793 M54.59 acute on chronic low back pain with point tenderness lumbar spinex ray to eval for concern vert comp fxx ray left hipchange tramadol 50 mg to q 6 prnmonitor need for ortho eval Chronic di astolic heart failure 871737283 I50.32 euvolemic- she denies any chest pain or shortness of breathweig ht stableCont inue furosemide 20 mg qdMonitor resp. status, fluid status, wts and labs. 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 increased confusion at hospital is currently A and O x 3 with poor short term recall Asthenia 25654586 R53.1 therapy to re-evaluat e to determine baseline Cardiac en zymes outside reference range 760172514 R89.0 eval by cards now onasa 81 mg qdlipitor 40 mg qdmonitor sx Essential hypertension 68274205 I10 lasix 20 mg qd prn for weight gain associated with chfstarted on norvasc 2.5 mg qdmonitor bp and need to titrate Chronic di astolic heart failure 919430915 I50.32 Continue furosemide 20 mg qd prn weight gain Paroxysmal atrial flutter 172021992 I48.3 amiodarone 200 mg qdmonitor rate control Impaired cognition 15676 6002 R41.89 question of poor insight prior to above infectionb eing eval by psych for competency evalwill await recs [id number] MD DARRIN Roe [address] [place] [address] 01/06/2025 11:35:48 01/08/2025 08:30:51 Toxic metabolic encephalopathy 278842655 G92.8 see aboveincre ased confusion at hospital is currently A and O x 3 with poor short term recallnow invokedmon itor level of insight Impaired cognition 92690 6002 R41.89 appreciate psych eval and recswill invoke HCPmonitor level of insight as patient is alert and oriented to person place and time which she states easily Asthenia 42220318 R53.1 coordinate with therapymon itor fall risk [id number] DANIELLE OGFF CNP [address] [place] [address] 01/13/2025 11:16:32 01/20/2025 11:19:42 Chronic diastolic heart failure 278212763 I50.32 stable, euvolemic- she denies any chest pain or shortness of breathweig ht stable 160-170Con tinue furosemide 20 mg qdMonitor resp. status, fluid status, wts and labs. Chronic ob structive pulmonary disease 43247425 J43.8 stablemoni tor respirator y status and albuterol utilizatio n Gastroesop hageal reflux disease 629478289 K21.9 protonix 40 mg qdmonitor sx control Mixed anxi ety and depressive disorder 984320676 F41.8 mood stable.Con tinue escitalopr am 30 mg qd, trazadone 25 mg qhs and 12.5 mg BID prn.psych prn Restless l egs syndrome 47620459 G25.81 StableCont inue requip 2 mg bid Impaired cognition 81764 6002 R41.89 appreciate psych eval and recsHCP invoked.mo nitor level of insight as patient is alert and oriented to person place and time which she states easily Toxic meta bolic encephalopathy 425585550 G92.8 see aboveincre ased confusion at hospital is currently A and O x 3 with poor short term recallnow invokedmon itor level of insight Asthenia 45325835 R53.1 coordinate with therapymon itor fall risk Respirator y syncytial virus infection 44125925 B33.8 [id number] No acute respirator y distress noted.Cont inue supportive care.Monit or respirator y status. [id number] FRIEDA ANDERSON [address] [place] [address] 04/14/2025 05:51:03 04/16/2025 13:06:59 Chronic diastolic heart failure 689124409 I50.32 Continue furosemide 20 mg qdMonitor resp. status, fluid status, wts and labs. Chronic ob structive pulmonary disease 33154419 J43.8 stablemoni tor respirator y status and albuterol utilizatio n Gastroesop hageal reflux disease 120655852 K21.9 protonix 40 mg qdmonitor sx control Mixed anxi ety and depressive disorder 097054715 F41.8 Continue escitalopr am 30 mg qd, trazadone 25 mg qhs and 12.5 mg BID prn.psych prn Restless l egs syndrome 60714063 G25.81 Continue requip 2 mg bid Impaired cognition 21815 6002 R41.89 ? underlying dementiawa x and wane with confusione xpect decline Chronic ki dney disease 702656088 N18.2 Renal function is at baselinemo nitor labsavoid nephrotoxi c drugs Essential hypertension 29734816 I10 lasix 20 mg qd prn for [...] [place] [employer] Shreya M Gravel [id number] Shreya Gravel 04/14/2025 2 [place] [id number] Shreya Gravel [id number] Shreya Gravel Notes Date Note Type Note Provider Name and Address Organization Details Recorded Time 11/25/2024 text/html Patient is a 89 yo female resident due for routine rounding also seen for acute rounding with complaint of chronic pain. PMH chf, a flutter, gerd, anemia, copd, chronic pain Rex Bass MD [address] [place] [address], [address], [place], [address], [facility] 11/25/2024 12:03:07 12/14/2024 text/html Patient is an [...] underlying cognitive impairment Rex Bass MD [address] [facility], [address], [place], [address], [facility] 12/14/2024 10:00:50 01/06/2025 text/html Patient [...] belong throughout day. Rex Bass MD [address] [facility], [address], [place], [address], [facility] 01/06/2025 11:42:10 01/13/2025 text/html Shreya is [...] syndrome, depression, anxiety, LLE cellulitis. DANIELLE GOFF, COUNTERPERSON [address] [facility], [address], [place], [address], [facility] 01/13/2025 11:53:02 04/14/2025 text/html 89 yo female LTC resident seen for routine rounding. Medically she is stable, she is at her baseline in NAD. FRIEDA ANDERSON [address] [facility], [address], [place], [address], [facility] [employer] [facility] 04/15/2025 19:03:46 OBGyn Episode No OBEpisode recorded.
--- OUTSIDE RECORDS SUMMARY | 2025-07-19 07:01 | XMS_ITS | Patient Health Record ---
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 [...] X ray : Foot, right 2V 06/06/2012 34714-DEFECES NAIL, 6 OR MORE 03/27/2012 12863-ZDTEWJC NAIL, 6 OR MORE 08/22/2012 30952-RIIWMUC NAIL, 6 OR MORE 06/13/2012 51315-QELTLAW NAIL, 6 OR MORE 08/28/2011 32465-VKKLTMQ NAIL, 6 OR MORE 11/13/2011 47025-OXBYQOT NAIL, 6 OR MORE 01/18/2012 99197-LEPKIZQ NAIL, 6 OR MORE 11/06/2012 21465-XYODMPV NAIL, 6 OR MORE 02/10/2013 03314-VNVJHIX NAIL, 6 OR MORE 04/14/2013 43097-LIMMIHM NAIL, 6 OR MORE 05/21/2013 93295-AMNOOES NAIL, 6 OR MORE 07/09/2013 08649-UACTLXI NAIL, 6 OR MORE 10/13/2013 68566-NAGTXLV NAIL, 6 OR MORE 04/23/2014 31579-OKDSEJQ NAIL, 6 OR MORE 01/15/2014 20504-TKCVSYP NAIL, 6 OR MORE 07/22/2014 75576-QXVFRCL NAIL, 6 OR MORE 10/26/2014 16394-FJGDLHR NAIL, 6 OR MORE 02/11/2015 01878-LSCPAFY NAIL, 6 OR MORE 04/19/2015 16177-ZASBHBJ NAIL, 6 OR MORE 07/12/2015 67050-AXLCQWZ NAIL, 6 OR MORE 10/18/2015 66345-SZCAVFP NAIL, 6 OR MORE 12/20/2015 09713-GAHCBYW NAIL, 6 OR MORE 02/28/2016 40088-OYGNTKP NAIL, 6 OR MORE 06/15/2016 27328-JKWENQL NAIL, 6 OR MORE 09/12/2016 53204-ILLBRAF NAIL, 6 OR MORE 12/05/2016 37503-ITDSWQM NAIL, 6 OR MORE 02/22/2017 09224-IVXZMIA NAIL, 6 OR MORE 10/30/2017 17863-TSGFWTN NAIL, 6 OR MORE 02/04/2018 41194-VIOJDTN NAIL, 6 OR MORE 04/24/2018 93433-GATKTKW NAIL, 6 OR MORE 07/23/2018 35823-KLYYCHO NAIL, 6 OR MORE 05/24/2017 56119-OAZUIQT NAIL, 6 OR MORE 08/06/2017 86292-GTNFFQA NAIL, 6 OR MORE 05/29/2019 52519-ENJGLLX NAIL, 6 OR MORE 11/11/2019 03686-GAZOOLY NAIL, 6 OR MORE 03/02/2020 15754-JZIKFGW NAIL, 6 OR MORE 05/04/2020 95782-EKDBRHO NAIL, 6 OR MORE 07/08/2020 39256-UNLXNHB NAIL, 6 OR MORE 02/17/2021 93166-TYPJTLH NAIL, 6 OR MORE 06/20/2021 85056-EZSFDJP NAIL, 6 OR MORE 11/07/2021 43236-YODURZU NAIL, 6 OR MORE 01/16/2022 84660-AXVNVYB NAIL, 6 OR MORE 03/20/2022 24198-MOTSCWB NAIL, 6 OR MORE 06/12/2022 46954-EUFXDZR NAIL, 6 OR MORE 09/12/2022 65459-KDLHONX NAIL, 6 OR MORE 01/22/2023 90854-AYKHMTH NAIL, 6 OR MORE 05/29/2023 71242-Nouh Destruction, -14 01/22/2023 74610-Ohzk Destruction, -14 07/02/2023 23621-Uiji Destruction, -14 10/16/2022 63117-Sxlf Destruction, -14 06/12/2022 06503-Fghm Destruction, -14 09/12/2022 21511-Nlzj Destruction, -14 01/16/2022 25839-Hkvh Destruction, -14 12/19/2021 69706-Xhri Destruction, -14 11/07/2021 71548-Lgtu Destruction, -14 08/01/2021 05256-Pdxh Destruction, 10-2007/08/2020 58320-Xfwm Destruction, 10-2001/11/2021 32143-Ecba Destruction, 10-2008/23/2020 18098-Eyyr Destruction, 10-2005/04/2020 96946-Hxys Destruction, 10-2003/02/2020 15090-Pruy Destruction, 10-2009/18/2019 86475-Kjbx Destruction, 10-2011/11/2019 54232-Efaw Destruction, 10-2007/15/2019 02766-Gzns Destruction, 10-2005/29/2019 57091-Tvsh Destruction, 10-2007/02/2017 21458-Zagl Destruction, 10-2007/23/2018 52756-Higv Destruction, 10-2009/10/2018 83199-Pagr Destruction, 10-2003/26/2017 36734-Euop Destruction, 10-2005/24/2017 29841-Onfz Destruction, 10-2012/05/2016 56725-Rkuk Destruction, 10-2008/01/2016 57854-Tkov Destruction, 10-2010/24/2016 40002-Bcjv Destruction, 10-2006/15/2016 31511-Xdfe Destruction, 10-2004/05/2016 65702-Hlqe Destruction, 10-2012/20/2015 07837-Brbb Destruction, 10-2001/24/2016 00767-Kgkm Destruction, 10-2010/18/2015 03337-Hfmz Destruction, 10-2008/23/2015 36965-Habg Destruction, 10-2004/14/2013 38773-Wosu Destruction, 10-2005/21/2013 38585-Gssnfnun Plate 09/01/2013 75225-Anjwflij Plate 07/09/2013 96244-Ghoegysy Plate 02/10/2013 05630-Pwginqzp Plate 12/30/2012 45740-Dzunfzuj Plate 10/26/2014 87157-Xzhbqwqm Plate 08/26/2014 89666-Lgkkapay Plate 07/22/2014 12011-Fjicswle Plate 04/23/2014 02778-Vkkxzwob Plate 12/04/2013 83600-Mpqsazeh Plate 07/10/2011 83515-Ryviphqu Plate 01/18/2012 44581-Uqpzamom Plate 10/16/2011 12542-Ukswmtur Plate 10/25/2011 31539-Ofpsanqe Plate 11/08/2011 80872-Tohkgsap Plate 07/11/2012 89177-Wexaftud Plate 09/25/2012 85267-Pqmqaidd Plate 08/22/2012 12597-Nnarbrkr Plate 03/27/2012 46441-Czgtglte Plate 05/09/2012 31486-Mjdqgjww Plate 06/13/2012 45205-Eyhisawb Plate 05/31/2015 67824-Gskuqkgm Plate 07/12/2015 27484-Cjuefxxd Plate 04/19/2015 14642-Dkfgsddw Plate 02/11/2015 95606-Alhxztrg Plate 03/04/2014 03296-Ddbskdbr Plate 11/25/2014 08840-Vozrjnok Plate 06/15/2016 65815-Vxcclwmb Plate 03/26/2017 16653-Tsqeeulu Plate 08/06/2017 41793-Xbsxkuyz Plate 05/29/2019 08749-Tzkjweys Plate 09/18/2019 25758-Hrypbhxx Plate 07/15/2019 41701-Cbnsotcb Plate 07/08/2020 34329-Mceehcab Plate 01/11/2021 33368-Ycdurvkz Plate 02/17/2021 10810-Fptxovkh Plate 03/31/2021 64610-Zyioahur Plate 06/20/2021 11467-Xjtgneha Plate 01/16/2022 61173-Hhtudbhi Plate 11/07/2021 27956-Kxfsdcwc Plate 04/24/2022 79505-Rtggnisf Plate Each Additional 35257-Ucbbmktf Plate Each Additional 10/2021 35034-Ekasbtit Plate Each Additional 09/2022 26160-Ojlskbnb Plate Each Additional 69177-Yvbsewpo Plate Each Additional 04/2021 98725-Ujfwlqot Plate Each Additional 11/2019 57437-Kdfgryif Plate Each Additional 29289-Camszkal Plate Each Additional 04/2012 50114-Xmkwgkxu Plate Each Additional 12/2011 49310-Ocpqluqj Plate Each Additional 94288-Stvgpgec Plate Each Additional 04/2013 54787- Debride <25 sq cm 02/10/2013 34620- Debride <25 sq cm 12/30/2012 17783- Debride <25 sq cm 11/06/2012 90264- Debride <25 sq cm 05/21/2013 73565- Debride <25 sq cm 04/14/2013 50492- Debride <25 sq cm 12/04/2013 72149- Debride <25 sq cm 04/23/2014 80546- Debride <25 sq cm 05/27/2014 82591- Debride <25 sq cm 07/22/2014 65811- Debride <25 sq cm 08/26/2014 34886- Debride <25 sq cm 10/26/2014 25926- Debride <25 sq cm 06/06/2012 56285- Debride <25 sq cm 03/27/2012 40964- Debride <25 sq cm 06/13/2012 77537- Debride <25 sq cm 08/22/2012 89829- Debride <25 sq cm 09/25/2012 00348- Debride <25 sq cm 08/28/2011 93491- Debride <25 sq cm 07/10/2011 81011- Debride <25 sq cm 02/15/2012 08066- Debride <25 sq cm 12/20/2011 93952- Debride <25 sq cm 11/25/2014 58620- Debride <25 sq cm 01/04/2015 15678- Debride <25 sq cm 02/11/2015 17622- Debride <25 sq cm 03/15/2015 96667- Debride <25 sq cm 04/19/2015 93133- Debride <25 sq cm 07/12/2015 57649- Debride <25 sq cm 01/18/2017 21728- Debride <25 sq cm 09/12/2016 82228- Debride <25 sq cm 05/04/2020 12811- Debride <25 sq cm 01/11/2021 60735- Debride <25 sq cm 10/30/2017 82204- Debride <25 sq cm 07/02/2017 29276- Debride <25 sq cm 09/10/2018 38886- Debride <25 sq cm 05/29/2019 61536- Debride <25 sq cm 02/17/2021 79799- Debride <25 sq cm 03/31/2021 64652- Debride <25 sq cm 06/20/2021 09227- Debride <25 sq cm 11/07/2021 57258- Debride <25 sq cm 08/01/2021 68303- Debride <25 sq cm 11/28/2021 18967- Debride <25 sq cm 06/12/2022 96201- Debride <25 sq cm 04/24/2022 23530- Debride <25 sq cm 03/20/2022 08724- Debride <25 sq cm 09/12/2022 08060- Debride <25 sq cm 11/13/2022 15176- Debride <25 sq cm 01/22/2023 45740- Debride <25 sq cm 10/16/2022 06845- Debride <25 sq cm 07/02/2023 39337-XJFWTAE SKIN/TISSUE 05/22/2024 40086-KYDKKTM SKIN/TISSUE 01/15/2014 36051-GKFANJH SKIN/TISSUE 03/04/2014 88599 I&D ABSCESS- SIMPLE,SINGLE 012 97264 I&D ABSCESS- SIMPLE,SINGLE 013 43896-WAIA SKIN LESIONS, 2 TO 4 05/22/20 24 97221- Removal of Foreign Body, Subcut 1 15962-Nbreuwcu Benign Lesion 0.5cm 11/08 91826-Czwxylij Benign Lesion 0.5cm 10/25- Ganglion Cyst Injection/Aspiratio n 01/18/2012- Ganglion Cyst Injection/Aspiratio n 07/02/2017 Future Test Test Name Order Date 47434-Jqdeqozy Plate Each Additional Insurance Providers Payer Name Payer Address Payer Phone Subscriber Number Group Number Insured Name Patient Relationship to Insured Coverage Start Date Coverage End Date Medicare National Govt Svcs Inc [address] [place] [address] [id number] Shreya Calvert Self - patient is the insured 1 [employer] Blue Shield [address] [place] [address] [id number] Shreya Calvert Self - patient is the [...] Rehab 05/2024 [facility], [place]- leg [place]20[place] [facility] [place] [facility] [place] 02/20[place] [facility] [place] issues 08/2022 [facility] Cellulitis 07/20[place] [facility] [place]/20[place] [facility] stay, 3 week therap y 01/2022 [facility], rehab- fell 05/2021 [facility] for cellulitis for 5 days 9 [facility] [place]18 [facility] [place] [facility], tripped bumped head 08/2015 Ad[place] [facility] [place];GERD 03/2015 [facility] - Emergency 11/23/14 & 11/24 Dehydration 11/2011
[2025-07-19 07:04] LABS: MANUAL DIFF FLAG NO
[2025-07-19 07:21] LABS: Hematocrit 37.4 % (37.0-47.0); Hemoglobin 12.1 g/dl (12.0-16.0); Imm Gran Abs Auto 0.01 X10*3/uL (0.00-0.03); Imm Gran Pct Auto 0.2 % (0.0-0.4); Lymphocytes Absolute Auto 1.3 X10*3/uL (1.2-4.9); Mean Corpuscular HGB Conc 32.4 g/dl (31.0-35.0); Mean Corpuscular Hemoglobin 32.2 pg (27.0-33.0); Mean Corpuscular Volume 99.5 fL (80.0-98.0); NRBC Abs Auto 0.000 X10*3/uL (0.0-0.012); NRBC Pct Auto 0.0 /100WBC (0.0-0.2); Platelet Count 207 X10*3/uL (160-400); Red Blood Count 3.76 X10*6/uL (4.20-5.50); White Blood Count 4.2 X10*3/uL (4.8-10.8)
[2025-07-19 07:45] LABS: Anion Gap 11 (12-20); Blood Urea Nitrogen 16 mg/dL (9-16); Calcium 8.8 mg/dL (8.4-10.2); Carbon Dioxide 24 mmol/L (22-29); Chloride 110 mmol/L (96-108); Estimated Glomerular Filt Rate > 60; Potassium 3.6 mmol/L (3.3-5.1); Sodium 141 mmol/L (135-145)
== END 2025-07-19 06:59 | disposition home or self-care (01) ==
LOC: HO.MMNH3L 06:58
PROVIDERS: Visit Provider Student in an Organized Health Care Education/Training Program
DX: G93.41 Metabolic encephalopathy (principal); E08.40 Diabetes mellitus due to underlying condition with diabetic neuropathy, unspecified
CPT/HCPCS: 36415; 80048; 85025

== ENCOUNTER 2025-08-06 06:13 | Outpatient (REF) | payer MEDICARE, MEDICAID, SELFPAY ==
[2025-08-06 06:16] LABS: MANUAL DIFF FLAG NO
--- OUTSIDE RECORDS SUMMARY | 2025-08-06 06:17 | XMS_ITS | Clinical Summary ---
Author Organization [facility] Address [address] [place] [address] Phone Care Team Providers Care Creative Coordinator Name Role Phone Rex Bass MD Primary Care Provider [phone] Allergies Active Allergy Reactions Criticality Noted Date [...] Problem Noted Date Diagnosed Date Atrial flutter ([facility] V24, [facility] V28) 2021 Overview (08/28/2024): Last [...] HISTORICAL CHOLECYSTECTOMY OTHER SURGICAL HISTORY 12/14/2013 PROCEDURE: VT EGD PARTIAL/COMPL ESOPHAGOGASTRIC FUNDOPLASTY COLONOSCOPY 02/09/2016 PROCEDURE: HISTORICAL COLONOSCOPY OTHER SURGICAL HISTORY 05/14/2013 PROCEDURE: VT ECHO TRANSTHORAC R-T 2D W/WO M-MODE REC COMP OTHER SURGICAL HISTORY 03/13/2013 PROCEDURE: VT CABG W/ARTERIAL GRAFT THREE ARTERIAL GRAFTS OTHER SURGICAL HISTORY 12/06/2008 PROCEDURE: VT EGD PARTIAL/COMPL ESOPHAGOGASTRIC FUNDOPLASTY CARPAL TUNNEL RELEASE PROCEDURE: VT NEUROPLASTY &/TRANSPOS MEDIAN NRV CARPAL TUNNE; COMMENT: [...] Compression fracture of L1 l umbar vertebra ([facility] V24, [facility] V28) DX:Compression fra cture of L1 lumbar vertebra ([facility]); COMMENT: and t12 vertebra Degeneration macular DX:Degenera tion macular Depression DX:Depression Diabetes type 2, controlled ([facility] V24, [facility] V28) DX:Diabetes type 2, controll ed ([facility] [...] 2 obesi ty Osteoporosis DX:Osteoporosis Primary hyperparathyroidism ([facility] V24) DX:Primary hyperparathyroidi sm ([facility]) [...] patient's age to complete this topic Insurance [facility] MEDICAID - [place] MEDICARE Advance Directives Documents on File Type Date Recorded 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
--- OUTSIDE RECORDS SUMMARY | 2025-08-06 06:18 | XMS_ITS | Patient Health Record ---
Author Organization [facility] Address [address] [place] [address] Care Team Providers Care It Systems Engineer Name Role Phone Shelia DIAZ, Rex Primary Care Provider Unavailab sarahi Lu Holder Unavailable [phone] Allergies No Known Allergies Reason For Referral [...] Problem Information temporarily unavailable Unspecified atherosclerosis of [place] arteries of extremities, bilateral legs (I70.203) Active [...] X ray : Foot, right 2V 06/06/2012 10882-QCDGNRN NAIL, 6 OR MORE 03/27/2012 39721-AOETUDA NAIL, 6 OR MORE 08/22/2012 79061-ROWRXRK NAIL, 6 OR MORE 06/13/2012 12266-XADIUNM NAIL, 6 OR MORE 08/28/2011 37054-QZKNQWZ NAIL, 6 OR MORE 11/13/2011 42358-KOYXTEH NAIL, 6 OR MORE 01/18/2012 56139-MVGZSES NAIL, 6 OR MORE 11/06/2012 77742-JVWRKIM NAIL, 6 OR MORE 02/10/2013 74673-UWUOPWW NAIL, 6 OR MORE 04/14/2013 18545-MUAEUFX NAIL, 6 OR MORE 05/21/2013 56524-SVLIECI NAIL, 6 OR MORE 07/09/2013 04457-TGCFKVW NAIL, 6 OR MORE 10/13/2013 44578-YHPCMUI NAIL, 6 OR MORE 04/23/2014 72016-JWMINML NAIL, 6 OR MORE 01/15/2014 51119-IHTEIWE NAIL, 6 OR MORE 07/22/2014 28551-CQWLJXC NAIL, 6 OR MORE 10/26/2014 46964-KVKKLBD NAIL, 6 OR MORE 02/11/2015 93911-BASQBSX NAIL, 6 OR MORE 04/19/2015 66334-PGHJMDL NAIL, 6 OR MORE 07/12/2015 91962-TAQONGJ NAIL, 6 OR MORE 10/18/2015 21682-XNUJOOR NAIL, 6 OR MORE 12/20/2015 44128-CLIXZRT NAIL, 6 OR MORE 02/28/2016 81313-PGBOWXD NAIL, 6 OR MORE 06/15/2016 63496-PVFSLSM NAIL, 6 OR MORE 09/12/2016 54140-CKGIFSR NAIL, 6 OR MORE 12/05/2016 28811-QKVHREK NAIL, 6 OR MORE 02/22/2017 92695-CHWOQLV NAIL, 6 OR MORE 10/30/2017 34157-XHJWHLH NAIL, 6 OR MORE 02/04/2018 70193-UQLKFGX NAIL, 6 OR MORE 04/24/2018 37628-XPCHGJH NAIL, 6 OR MORE 07/23/2018 83572-QHGBVCZ NAIL, 6 OR MORE 05/24/2017 50367-OHKOVNO NAIL, 6 OR MORE 08/06/2017 25361-TPAQGAK NAIL, 6 OR MORE 05/29/2019 60797-EOZYYQK NAIL, 6 OR MORE 11/11/2019 52900-CSSHIJG NAIL, 6 OR MORE 03/02/2020 34917-PQBJRUJ NAIL, 6 OR MORE 05/04/2020 77590-CQVXMBP NAIL, 6 OR MORE 07/08/2020 83471-KHPVAWH NAIL, 6 OR MORE 02/17/2021 17475-VCYVCQJ NAIL, 6 OR MORE 06/20/2021 78021-AIRWTHE NAIL, 6 OR MORE 11/07/2021 78338-FNMLLEQ NAIL, 6 OR MORE 01/16/2022 34568-XNXSBJX NAIL, 6 OR MORE 03/20/2022 34489-EQXGQLT NAIL, 6 OR MORE 06/12/2022 49096-LJAOHUY NAIL, 6 OR MORE 09/12/2022 65392-ZAEGEQR NAIL, 6 OR MORE 01/22/2023 32071-FVDRGTY NAIL, 6 OR MORE 05/29/2023 38332-Fhor Destruction, -14 01/22/2023 63949-Fofw Destruction, -14 07/02/2023 58582-Vmbs Destruction, -14 10/16/2022 20687-Ldth Destruction, -14 06/12/2022 27763-Qlqb Destruction, -14 09/12/2022 21848-Ftdh Destruction, -14 01/16/2022 28154-Xusr Destruction, -14 12/19/2021 52134-Wjri Destruction, -14 11/07/2021 36900-Mbpq Destruction, -14 08/01/2021 36338-Ekmf Destruction, 10-2007/08/2020 81642-Wdfv Destruction, 10-2001/11/2021 08686-Zyap Destruction, 10-2008/23/2020 87865-Ytlo Destruction, 10-2005/04/2020 81937-Mjlk Destruction, 10-2003/02/2020 74251-Jdvw Destruction, 10-2009/18/2019 92865-Qmyo Destruction, 10-2011/11/2019 35334-Rsjr Destruction, 10-2007/15/2019 00043-Ykyq Destruction, 10-2005/29/2019 58568-Tkjh Destruction, 10-2007/02/2017 88511-Ikpb Destruction, 10-2007/23/2018 07566-Bxeb Destruction, 10-2009/10/2018 98665-Njse Destruction, 10-2003/26/2017 04747-Zrvh Destruction, 10-2005/24/2017 41812-Yzye Destruction, 10-2012/05/2016 34321-Ytcz Destruction, 10-2008/01/2016 49283-Winp Destruction, 10-2010/24/2016 73767-Kkkq Destruction, 10-2006/15/2016 00357-Bjmf Destruction, 10-2004/05/2016 62355-Lcuc Destruction, 10-2012/20/2015 03907-Ncfl Destruction, 10-2001/24/2016 20750-Iooh Destruction, 10-2010/18/2015 11884-Oejy Destruction, 10-2008/23/2015 95184-Levm Destruction, 10-2004/14/2013 96013-Eprs Destruction, 10-2005/21/2013 32357-Sbvmthox Plate 09/01/2013 56726-Iozgoqau Plate 07/09/2013 97586-Eywmrmij Plate 02/10/2013 27679-Pivtwboa Plate 12/30/2012 83081-Drmjzehk Plate 10/26/2014 09771-Mjxgdzqv Plate 08/26/2014 45388-Mbeehkan Plate 07/22/2014 60773-Wquqjimw Plate 04/23/2014 93442-Oygivbnf Plate 12/04/2013 35726-Qoiuofrf Plate 07/10/2011 60498-Bbtvetdn Plate 01/18/2012 70601-Nrquqpro Plate 10/16/2011 42096-Cevlvhsn Plate 10/25/2011 82152-Hlihzpok Plate 11/08/2011 63823-Sruyshme Plate 07/11/2012 31360-Qyrcxpyn Plate 09/25/2012 17296-Souswbcg Plate 08/22/2012 67266-Mghnswci Plate 03/27/2012 19798-Hexxcdxv Plate 05/09/2012 10000-Ldhqnbvi Plate 06/13/2012 02934-Jltotexx Plate 05/31/2015 41241-Cftgzejv Plate 07/12/2015 48525-Qwkzanpi Plate 04/19/2015 71746-Ekcvekej Plate 02/11/2015 09449-Qotpvgpi Plate 03/04/2014 58637-Oribspfs Plate 11/25/2014 05048-Ebhihexk Plate 06/15/2016 13812-Ccetdklv Plate 03/26/2017 57222-Ubehzcpr Plate 08/06/2017 18831-Kblzchew Plate 05/29/2019 00050-Awpelozd Plate 09/18/2019 71318-Draufpzp Plate 07/15/2019 55642-Ooynbzzp Plate 07/08/2020 12308-Rskxlvss Plate 01/11/2021 32305-Jovgjxci Plate 02/17/2021 67364-Aagivvpa Plate 03/31/2021 09528-Kbamuosk Plate 06/20/2021 27398-Fkpsusta Plate 01/16/2022 50795-Tgcvctgi Plate 11/07/2021 28319-Vjnhxhcw Plate 04/24/2022 34352-Lamdbdni Plate Each Additional 32021-Bwvscmgd Plate Each Additional 10/2021 82048-Sldhuitq Plate Each Additional 09/2022 85586-Hjtetazo Plate Each Additional 45481-Lncfwquj Plate Each Additional 04/2021 63336-Vsunbpah Plate Each Additional 11/2019 70786-Kwgocsec Plate Each Additional 73932-Oskfyylg Plate Each Additional 04/2012 24023-Krynclab Plate Each Additional 12/2011 89452-Zprowcwl Plate Each Additional 85012-Xzefogny Plate Each Additional 04/2013 66301- Debride <25 sq cm 02/10/2013 09609- Debride <25 sq cm 12/30/2012 18001- Debride <25 sq cm 11/06/2012 46295- Debride <25 sq cm 05/21/2013 85076- Debride <25 sq cm 04/14/2013 06745- Debride <25 sq cm 12/04/2013 82230- Debride <25 sq cm 04/23/2014 86186- Debride <25 sq cm 05/27/2014 76661- Debride <25 sq cm 07/22/2014 74413- Debride <25 sq cm 08/26/2014 03245- Debride <25 sq cm 10/26/2014 07539- Debride <25 sq cm 06/06/2012 43431- Debride <25 sq cm 03/27/2012 21039- Debride <25 sq cm 06/13/2012 52344- Debride <25 sq cm 08/22/2012 27670- Debride <25 sq cm 09/25/2012 65230- Debride <25 sq cm 08/28/2011 33299- Debride <25 sq cm 07/10/2011 95139- Debride <25 sq cm 02/15/2012 88540- Debride <25 sq cm 12/20/2011 89147- Debride <25 sq cm 11/25/2014 51033- Debride <25 sq cm 01/04/2015 07025- Debride <25 sq cm 02/11/2015 25972- Debride <25 sq cm 03/15/2015 07446- Debride <25 sq cm 04/19/2015 65971- Debride <25 sq cm 07/12/2015 37697- Debride <25 sq cm 01/18/2017 63198- Debride <25 sq cm 09/12/2016 24523- Debride <25 sq cm 05/04/2020 82617- Debride <25 sq cm 01/11/2021 55792- Debride <25 sq cm 10/30/2017 46580- Debride <25 sq cm 07/02/2017 77141- Debride <25 sq cm 09/10/2018 97398- Debride <25 sq cm 05/29/2019 56472- Debride <25 sq cm 02/17/2021 54163- Debride <25 sq cm 03/31/2021 33863- Debride <25 sq cm 06/20/2021 63269- Debride <25 sq cm 11/07/2021 48167- Debride <25 sq cm 08/01/2021 36940- Debride <25 sq cm 11/28/2021 45169- Debride <25 sq cm 06/12/2022 57076- Debride <25 sq cm 04/24/2022 43889- Debride <25 sq cm 03/20/2022 81757- Debride <25 sq cm 09/12/2022 82946- Debride <25 sq cm 11/13/2022 72031- Debride <25 sq cm 01/22/2023 14876- Debride <25 sq cm 10/16/2022 16966- Debride <25 sq cm 07/02/2023 60545-QUGJAGE SKIN/TISSUE 05/22/2024 11900-GGONAEG SKIN/TISSUE 01/15/2014 75658-FKUWZCS SKIN/TISSUE 03/04/2014 61141 I&D ABSCESS- SIMPLE,SINGLE 012 96827 I&D ABSCESS- SIMPLE,SINGLE 013 64735-DZRV SKIN LESIONS, 2 TO 4 05/22/20 24 07929- Removal of Foreign Body, Subcut 1 99262-Ujrlfwsc Benign Lesion 0.5cm 11/08 41720-Xxsdtqie Benign Lesion 0.5cm 10/25- Ganglion Cyst Injection/Aspiratio n 01/18/2012- Ganglion Cyst Injection/Aspiratio n 07/02/2017 Future Test Test Name Order Date 37189-Qsgclvgi Plate Each Additional Insurance Providers Payer Name Payer Address Payer Phone Subscriber Number Group Number Insured Name Patient Relationship to Insured Coverage Start Date Coverage End Date Medicare National Govt Svcs Inc [address] [place] [address] [id number] Shreya Calvert Self - patient is the insured 1 [employer] Blue Shield [address] [place] [address] [phone] [id number] Shreya Calvert Self - patient is the [...] Rehab 05/2024 [facility], rehab- leg swelling 05/2023 [facility] [place] 02/2023 [facility] ran over by scooter 02/2023 [facility] heart issues 08/2022 MM Cellulitis 07/2022 [facility] heart issues 03/2022 [facility] cellulitis, day stay, 3 week therap y 01/2022 [facility], rehab- fell 05/2021 [facility] for cellulitis for 5 days 9 [facility] fall 05/05/18 [facility] 2015 [place] [facility], tripped bumped head 08/2015 Admitted to [facility] overnight;GERD 03/2015 [facility] - Emergency 11/23/14 & 11/24 Dehydration 11/2011
--- OUTSIDE RECORDS SUMMARY | 2025-08-06 06:18 | XMS_ITS | Data Portability ---
Author Organization [facility] Pain Managem ent, PAIN OFFICE Address [address] [place] [address] Care Team Providers Care Weld Engineer Name Role Phone ABAD GONSALES Primary Care Provider [phone] GUILHERME DIAZ Referring Provider Assessment Encounter Date [...] appointment has been booked. She needs a stake driver on the day of the procedure. [...] By Organization Details Last Modified Time 06/26/2021 [id number] She was advised against bed rest lasting longer than four days and to continue activities as tolerated. [email or web address] Not available 06/30/2021 10:01:24 07/11/2021 [id number] She was advised to continue with activities as tolerated [email or web address] Not available 07/11/2021 13:35:39 10/04/2021 [id number] She was advised to continue with activities as tolerated [email or web address] Not available 10/04/2021 11:55:19 12/12/2021 75320 She was advised to continue with activities as tolerated [email or web address] Not available 12/12/2021 12:09:37 08/21/2022 [id number] She was advised to continue with activities as tolerated [email or web address] Not available 08/21/2022 10:34:48 Reason for Referral None Reported. Problems Name Problem SNOMED Code Status Onset Date Resolution Date Notes Provider Name and Address Organization Details Recorded Time Post-herpetic neuritis [id number] Gris adams MD [address] [place] [address] , [address], [facility] [place], [address] [facility] [place] [facility] 9 14:56:27 Inflammation of joint of shoulder region 371030117 Gris adams, MD [address] , [address], [place], [address], [place] [facility] 9 09:39:04 Spinal stenosis of lumbar region 46875395 Active 2016 Alf adams MD [address] , [address], [place], [address], [place] [facility] 7 10:55:25 Lumbosacral spondylosis without myelopathy 48744994 Active 2016 Alf adams MD [address] , [address], [place], [address], [place] [facility] 7 10:55:26 Lumbosacral radiculitis 92482255 Active 2016 Alf adams MD [address] , [address], [place], [address], [place] [facility] 7 10:55:27 Displacement of lumbar intervertebral disc without myelopathy 97802659 Active 2016 Alf adams MD [address] , [address], [place], [address], [place] [facility] 7 10:55:30 Problem Notes None recorded. Procedures Surgical History Date Name Laterality Status Provider Name and Address Organization Details Recorded Time 08/21/20 22 Lumbar Epidural steroid injection under fluoroscopic guidance completed Alf Posada MD [address] , [address], [place], [address], [place] [facility] 08/21/2022 10:36:53 12/13/19 22 Lumbar Epidural steroid injection under fluoroscopic guidance completed Alf Posada MD [address] , [address], [place], [address], [place] [facility] 12/12/2021 12:09:46 10/04/20 21 Lumbar Epidural steroid injection under fluoroscopic guidance completed Alf Posada MD [address] , [address], [place], [address], [place] [facility] 10/04/2021 11:55:59 07/11/20 21 Lumbar Epidural steroid injection under fluoroscopic guidance completed Alf Posada MD [address] , [address], [place], [address], [place] [facility] 07/11/2021 13:35:45 04/11/20 21 Lumbar Epidural steroid injection under fluoroscopic guidance completed Alf Posada MD [address] , [address], [place], [address], [place] [facility] 04/11/2021 13:56:00 01/11/20 21 Lumbar Epidural steroid injection under fluoroscopic guidance completed Alf Posada MD [address] , [address], [place], [address], [place] [facility] 01/12/2021 09:57:53 09/06/20 20 Lumbar Epidural steroid injection under fluoroscopic guidance completed Alf Posada MD [address] , [address], [place], [address], [place] [facility] 09/08/2020 14:56:36 06/15/20 20 Lumbar Epidural steroid injection under fluoroscopic guidance completed Alf Posada MD [address] , [address], [place], [address], [place] [facility] 06/15/2020 14:00:13 05/23/20 20 Intra-articular shoulder steroid injection under ultrasound guidance completed Alf Posada MD [address] , [address], [place], [address], [place] [facility] 05/23/2020 15:11:49 05/11/20 19 Intra-articular shoulder steroid injection under ultrasound guidance completed Alf Posada MD [address] , [address], [place], [address], [place] [facility] 05/11/2019 09:43:25 03/31/20 19 Lumbar Epidural steroid injection under fluoroscopic guidance completed Alf Posada MD [address] , [address], [place], [address], [place] [facility] 03/31/2019 18:50:07 01/08/20 19 Fluoroscopic Guided Lumbar Facet Steroid Injections of levels completed Alf Posada MD [address] , [address], [place], [address], [place] [facility] 01/08/2019 15:03:53 09/17/20 17 Fluoroscopic Guided Lumbar Facet Steroid Injections of levels completed Alf Posada MD [address] , [address], [place], [address], [place] [facility] 09/17/2017 10:08:58 08/07/20 17 Fluoroscopic Guided Lumbar Facet Steroid Injections of levels completed Alf Posada MD [address] , [address], [place], [address], [place] [facility] 08/07/2017 10:36:11 05/08/20 17 Lumbar Epidural steroid injection under fluoroscopic guidance completed Alf Posada MD [address] [facility] , [address], [place], [address], [place] [facility] 05/08/2017 10:54:37 Joint Replacement completed Fayechris Sotoer [place] [facility] 03/14/2017 14:36:04 Cholecystectomy completed Fayechris Sotoer [place] [facility] 03/14/2017 14:36:22 Back Surgery completed Alf Posada MD [address] , [address], [place], [address], [place] [facility] 04/02/2017 [...] completed Not Available Not Available Not Available [employer] Ultra Test strips TESTS DAILY FOR DM, [...] Not Available No t Available Fluzone High-Dose 2794-2820 (PF) 180 mcg/0.5 mL intramuscul ar syringe TO BE ADMINISTE RED BY PHARMACIS T FOR IMMUNIZAT ION 08/07 completed Not Available Not Available Not Available Fluzone High-Dose 1329-6797 (PF) 180 mcg/0.5 mL intramuscul ar syringe [...] Updated DateTime 1 160.02 cm 34.7 kg/m2 35740.1 g 58 /min 98 % 98 % 6 144/56 mm[Hg] Alf adams MD [address] [facility] , [address], [place], [address], [place] [facility] 1 [...] Or Recreational Drugs Have You Used? NO [id number] Information not available 07/22/2020 Education 12 With Some College Information not available 03/14/2017 Live Alone Or With Others? Alone Information not available 03/14/2017 Marital Status Informatio n not available 03/14/2017 What Was The Date Of Your Most Recent Tobacco Screening? 03/31/2019 [id number] Information not available 07/22/2020 How Many Years Have You Smoked Tobacco? 20 [id number] Information not available 07/22/2020 Sex: Unknown Functional Status Question Answer Note LastModified by Organization D etails LastModified Time What is your level of alcohol consumption? Moderate [id number] Information not available 07/22/2020 Are you currently employed? No [id number] Information not available 07/22/2020 Mental Status None [...] ICD10 Code Diagnosis IMO Codes Diagnosis Note [id number] Alf Posada MD PAIN OFFICE [address] [place] [address] 03/14/2017 13:22:16 03/14/2017 15:44:04 Spinal stenosis of lumbar region 01100498 M48.06 Lumbosacra l spondylosis without myelopathy 50302285 M47.817 Lumbosacra l radiculitis 15162351 M54.17 Displaceme nt of lumbar intervertebral disc without myelopathy 99248233 M51.26 [id number] Alf Posada MD PAIN OFFICE [address] [place] [address] 05/08/2017 09:51:37 05/09/2017 14:08:37 Spinal stenosis of lumbar region 81638219 M48.06 Lumbosacra l spondylosis without myelopathy 12315718 M47.817 Lumbosacra l radiculitis 68647723 M54.17 Displaceme nt of lumbar intervertebral disc without myelopathy 46055384 M51.26 [id number] Alf Posada MD PAIN OFFICE [address] [place] [address] 06/14/2017 10:36:32 06/17/2017 09:50:43 Spinal stenosis of lumbar region 90918060 M48.06 Lumbosacra l spondylosis without myelopathy 57101079 M47.817 Lumbosacra l radiculitis 34978930 M54.17 Displaceme nt of lumbar intervertebral disc without myelopathy 69963236 M51.26 76452 Alf Posada MD PAIN OFFICE [address] [place] [address] 08/07/2017 10:01:00 08/07/2017 15:19:24 Spinal stenosis of lumbar region 33352857 M48.062 Lumbosacra l spondylosis without myelopathy 33739479 M47.817 Lumbosacra l radiculitis 27598627 M54.17 Displaceme nt of lumbar intervertebral disc without myelopathy 78533927 M51.26 76053 Alf Posada MD PAIN OFFICE [address] [place] [address] 09/05/2017 10:11:57 09/05/2017 19:46:07 Spinal stenosis of lumbar region 27163085 M48.062 Lumbosacra l spondylosis without myelopathy 46434704 M47.817 Lumbosacra l radiculitis 56817462 M54.17 Displaceme nt of lumbar intervertebral disc without myelopathy 09340184 M51.26 [id number] Alf Posada MD PAIN OFFICE [address] [place] [address] 09/17/2017 09:13:54 09/19/2017 09:09:31 Spinal stenosis of lumbar region 74181178 M48.062 Lumbosacra l spondylosis without myelopathy 79872472 M47.817 Lumbosacra l radiculitis 19411758 M54.17 Displaceme nt of lumbar intervertebral disc without myelopathy 45876586 M51.26 [id number] Alf Posada MD [facility] PAIN OFFICE [address] [place] [address] 12/25/2018 11:24:23 12/25/2018 16:12:18 Spinal stenosis of lumbar region 24721711 M48.061 Lumbosacra l spondylosis without myelopathy 92432275 M47.817 Lumbosacra l radiculitis 23144994 M54.17 Displaceme nt of lumbar intervertebral disc without myelopathy 74976075 M51.26 [id number] Alf Posada MD [facility] PAIN OFFICE [address] [place] [address] 01/07/2019 09:10:35 01/08/2019 15:11:02 Spinal stenosis of lumbar region 76458819 M48.062 Lumbosacra l spondylosis without myelopathy 25799050 M47.817 Lumbosacra l radiculitis 24271165 M54.17 Displaceme nt of lumbar intervertebral disc without myelopathy 04975413 M51.26 70749 Alf Posada MD PAIN OFFICE [address] [place] [address] 02/04/2019 14:13:14 02/04/2019 16:10:53 Post-herpetic neuritis 986925203 B02.29 Spinal linda nosis of lumbar region 97275329 M48.061 Lumbosacra l spondylosis without myelopathy 42378340 M47.817 Lumbosacra l radiculitis 41685243 M54.17 Displaceme nt of lumbar intervertebral disc without myelopathy 46176541 M51.26 72306 Alf Posada MD PAIN OFFICE [address] [place] [address] 03/31/2019 09:49:03 03/31/2019 18:56:55 Spinal stenosis of lumbar region 43580567 M48.061 Lumbosacra l spondylosis without myelopathy 83545189 M47.817 Lumbosacra l radiculitis 28437935 M54.17 Displaceme nt of lumbar intervertebral disc without myelopathy 66198611 M51.26 29111 Alf Posada MD PAIN OFFICE [address] [place] [address] 05/11/2019 08:51:59 05/11/2019 09:45:44 Inflammation of joint of shoulder region 281380897 M13.819 Spinal linda nosis of lumbar region 42334948 M48.061 52076 Alf Posada MD PAIN OFFICE [address] [place] [address] 12/14/2019 13:40:03 12/14/2019 16:14:01 Spinal stenosis of lumbar region 92838125 M48.061 Lumbosacra l spondylosis without myelopathy 76318278 M47.817 Lumbosacra l radiculitis 33578779 M54.17 Displaceme nt of lumbar intervertebral disc without myelopathy 21844980 M51.26 [id number] Alf Posada MD PAIN OFFICE [address] [facility] [place] [address] 02/12/2020 11:36:11 02/15/2020 12:09:29 Spinal stenosis of lumbar region 02681363 M48.061 Lumbosacra l spondylosis without myelopathy 35838995 M47.817 Lumbosacra l radiculitis 32096621 M54.17 Displaceme nt of lumbar intervertebral disc without myelopathy 87609962 M51.26 62504 Alf Posada MD PAIN OFFICE [address] [facility] [place] [address] 05/13/2020 08:29:14 05/13/2020 09:22:37 Inflammation of joint of shoulder region 966312829 M13.819 Spinal linda nosis of lumbar region 90359396 M48.061 [id number] Alf Posada MD PAIN OFFICE [address] [facility] [place] [address] 05/23/2020 12:46:33 05/23/2020 15:14:52 Inflammation of joint of shoulder region 832186369 M13.819 Spinal linda nosis of lumbar region 83535607 M48.061 48443 Alf Posada MD PAIN OFFICE [address] [facility] [place] [address] 06/15/2020 10:54:32 06/15/2020 14:04:50 Inflammation of joint of shoulder region 851148873 M13.819 Spinal linda nosis of lumbar region 18393856 M48.061 Lumbosacra l spondylosis without myelopathy 01666806 M47.817 Lumbosacra l radiculitis 77101914 M54.17 Displaceme nt of lumbar intervertebral disc without myelopathy 24963350 M51.26 [id number] Alf Posada MD [facility] PAIN OFFICE [address] [employer] [address] [facility] [place] [address] 07/13/2020 08:30:09 07/13/2020 11:05:07 Inflammation of joint of shoulder region 166343965 M13.819 Spinal linda nosis of lumbar region 54263096 M48.061 77522 Alf Posada MD [facility] PAIN OFFICE [address] [employer] [facility] [place] [address] 09/06/2020 10:30:56 09/08/2020 15:55:16 Inflammation of joint of shoulder region 528903230 M13.819 Spinal linda nosis of lumbar region 00788673 M48.061 Lumbosacra l spondylosis without myelopathy 16764620 M47.817 Lumbosacra l radiculitis 72699923 M54.17 Displaceme nt of lumbar intervertebral disc without myelopathy 29064798 M51.26 30190 Alf Posada MD [facility] PAIN OFFICE [address] [facility] [place] [address] 11/07/2020 08:59:33 11/07/2020 09:55:18 Spinal stenosis of lumbar region 53238796 M48.061 Lumbosacra l spondylosis without myelopathy 03660731 M47.817 Lumbosacra l radiculitis 81084082 M54.17 Displaceme nt of lumbar intervertebral disc without myelopathy 44418921 M51.26 95737 Alf Posada MD [facility] PAIN OFFICE [address] [employer] [facility] [place] [address] 01/10/2021 13:47:25 01/12/2021 10:00:57 Inflammation of joint of shoulder region 111395572 M13.819 Spinal linda nosis of lumbar region 50011219 M48.061 Lumbosacra l spondylosis without myelopathy 14285230 M47.817 Lumbosacra l radiculitis 48401117 M54.17 Displaceme nt of lumbar intervertebral disc without myelopathy 89931303 M51.26 [id number] Alf Posada MD [facility] PAIN OFFICE [address] [place] [address] 02/16/2021 08:44:41 02/16/2021 10:52:14 Spinal stenosis of lumbar region 34678681 M48.061 Lumbosacra l spondylosis without myelopathy 16744282 M47.817 Lumbosacra l radiculitis 29833550 M54.17 Displaceme nt of lumbar intervertebral disc without myelopathy 54579042 M51.26 38475 Alf Posada MD [facility] PAIN OFFICE [address] [place] [address] 04/11/2021 13:21:59 04/11/2021 14:01:08 Spinal stenosis of lumbar region 07489216 M48.061 Inflammati on of joint of shoulder region 474205872 M13.819 Lumbosacra l spondylosis without myelopathy 70346789 M47.817 Lumbosacra l radiculitis 64544819 M54.17 Displaceme nt of lumbar intervertebral disc without myelopathy 22076592 M51.26 11367 Alf Posada MD [facility] PAIN OFFICE [address] [place] [address] 06/26/2021 15:22:32 06/30/2021 10:03:11 Spinal stenosis of lumbar region 08791063 M48.061 Lumbosacra l spondylosis without myelopathy 36396306 M47.817 Lumbosacra l radiculitis 54342329 M54.17 Displaceme nt of lumbar intervertebral disc without myelopathy 81547480 M51.26 [id number] Alf Posada MD [facility] PAIN OFFICE [address] [place] [address] 07/11/2021 12:54:52 07/11/2021 13:38:15 Spinal stenosis of lumbar region 30959582 M48.061 Inflammati on of joint of shoulder region 343388734 M13.819 Lumbosacra l spondylosis without myelopathy 66958014 M47.817 Lumbosacra l radiculitis 20360826 M54.17 Displaceme nt of lumbar intervertebral disc without myelopathy 56706698 M51.26 64373 Alf Posada MD PAIN OFFICE [address] [facility] [place] [place] [address] 10/04/2021 10:46:49 10/04/2021 12:00:47 Spinal stenosis of lumbar region 22074868 M48.061 Inflammati on of joint of shoulder region 889258097 M13.819 Lumbosacra l spondylosis without myelopathy 41331427 M47.817 Lumbosacra l radiculitis 08851911 M54.17 Displaceme nt of lumbar intervertebral disc without myelopathy 89590899 M51.26 [id number] Alf Posada MD PAIN OFFICE [address] [facility] [place] [address] 12/12/2021 11:17:23 12/12/2021 14:28:00 Spinal stenosis of lumbar region 57182205 M48.061 Inflammati on of joint of shoulder region 687995396 M13.819 Lumbosacra l spondylosis without myelopathy 58635433 M47.817 Lumbosacra l radiculitis 90395612 M54.17 Displaceme nt of lumbar intervertebral disc without myelopathy 66643657 M51.26 45704 Alf Posada MD PAIN OFFICE [address] [facility] [place] [place] [address] 08/21/2022 10:05:44 08/21/2022 11:05:40 Spinal stenosis of lumbar region 14301780 M48.061 Inflammati on of joint of shoulder region 743001900 M13.819 Lumbosacra l spondylosis without myelopathy 73711390 M47.817 Lumbosacra l radiculitis 30224133 M54.17 Displaceme nt of lumbar intervertebral disc without myelopathy 59364027 M51.26 Degenerati on of lumbar intervertebral disc 92497229 M51.36 Health Concerns Section Related Observation LastModified by Organization Detai ls LastModified Time None Recorded Concern Status LastModified by Organization Details LastModified Time None Recorded Advance Directives Directive None Recorded Payers Insurance Date Sequence Insurance Name Policy Number Policy Anders Covered Member ID Anders Member ID Guarantor Name 12/15/2022 1 [place] [email or web address] Shreya M Gravel [id number] Shreya Gravel 12/15/2022 2 [place] [id number] Shreya Gravel [id number] Shreya Gravel Notes Date Note Type [...] or bowel incontinence. Alf Posada MD [address] [facility] , [place] [address], [place], [address], [place] [facility] 07/10/2021 08:52:57 07/11/2021 text/html She is here for a lumbar epidural steroid injection under fluoroscopic guidance. Alf Posada MD [address] [facility] , [place] [address], [place], [address], [place] [facility] 07/12/2021 09:01:37 10/04/2021 text/html She is here for a lumbar epidural steroid injection under fluoroscopic guidance. Alf Posada MD [address] [facility] , [facility] [address], [place], [address], [place] [facility] 10/04/2021 12:48:56 12/12/2021 text/html She is here for a lumbar epidural steroid injection under fluoroscopic guidance. Alf Posada MD [address] [facility] , [place] [address], [place], [address], [place] [facility] 12/12/2021 16:13:18 08/21/2022 text/html She is here for a lumbar epidural steroid injection under fluoroscopic guidance. She has stopped eliquis and pletal as instructed for the procedure. Alf Posada MD [address] , [address] [place], [address], JESSE Bonner [facility] 08/22/2022 08:44:58 OBGyn Episode No OBEpisode recorded.
--- OUTSIDE RECORDS SUMMARY | 2025-08-06 06:18 | XMS_ITS | Data Portability ---
Author Organization [place] [facility] Address [address] [place] [address] Care Team Providers Care Dining Room Manager Name Role Phone ABAD ISLAS Primary Care Provider [phone] [facility] OTHER Assessment Encounter Date Assessment [...] care of this patient according to [facility]'s infection prevention protocols. Not available 08/31/2021 [...] care of this patient according to [facility]'s infection prevention protocols. Not available 09/02/2021 22:38:16 03/21/2022 03/21/2022 Overview/History : 86 yo F established with new to this provider presents for evaluation of wounds to both lower legs s/p fall in February. The left wound failed to close with sutures and she developed an infection as well. She is followed by [facility] for wound care of both legs. She has developed burning pain with and redness to both wounds worse on the left. [facility] is coming in every two days [...] left extremity that is consistent with cellulitis. [facility] is in every 2 days [...] care of this patient according to [facility]'s infection prevention protocols. [email or web address] Not available 03/21/2022 20:18:44 Plan of Treatment Reminders Order Date Submit Date Provider Last Modified By Organization Details Last Modified Time Details Appointments None recorded. Lab rapid SARS CoV + SARS CoV 2 Ag, QL IA, respiratory specimen 2020 021 [email or web address] 3 [facility], [address] [place] [address], [address], 11:23:08 Referral None recorded. Procedures None recorded. Surgeries None recorded. Imaging US, duplex, venous, extremity, limited - swelling of left lower extremity, s/p fall and wound to left lower extremity r/o DVT pt is homebound,d oes not drive 2021 022 [email or web address] [facility] ([facility] [address] [place], [address], 2 18:21:15 XR, foot, 3 or more view - r/o right 2nd toe fracture. call pt @ [phone] 2021 022 [email or web address] [facility] Corporate Office ([facility] [address] [place], [address], 2 10:17:17 XR, chest, 2 view 2020 021 [email or web address] [facility] ([facility] [address] [place], [address], 16:59:08 Medication Orders cephalexin 500 mg capsule 2021 022 [email or web address] [facility] #[id number], [address] [place], [address], 16:20:51 cephalexin 500 mg capsule 2021 022 MAGDY [facility] #[id number], [address] [place], [address], 16:21:00 cephalexin 500 mg capsule 2021 022 [email or web address] [facility] #[id number], [address] [place], [address], 15:51:19 azithromyci n 250 mg tablet 2020 021 [email or web address] 0 [facility] #[id number], [address] [place], [address], 13:35:29 Patient TargetsNo targets recorded. Patient Instructions Encounter Date Encounter Id Patient Instructions Last Modified By Organization Details Last Modified Time 08/31/2021 [id number] What is coronavi ethel disease 2019? Coronavirus disease 2019 (COVID-19) is a respiratory illness that can spread from person to person. The virus that causes COVID-19 is a novel coronavirus that was first identified during an investigation into an outbreak in [facility]. Can I get COVID-19? Yes. COVID-19 [...] least 20 seconds. Use an alcohol-based hand account liaison hospice that contains at least 60% alcohol if [...] help relieve symptoms. FOR MORE INFORMATION: [email or web address] Not available 08/31/2021 20:08:37 Based on the patient s history of presenting illness, it was determined that a test for COVID-19 was indicated. The [place] FDA has made this test available under an emergency access mechanism called an Emergency Use Authorization (EUA). The EUA is supported by the Corrosion Engineer of Health and Human Service s (HHS s ) declaration that circumstances exist to [...] or worsen. Not available 08/31/2021 20:06:42 09/02/2021 [id number] [facility] yo [facility]. We cannot always find the exact cause of your symptoms during your initial visit. Please follow up with your primary care provider or specialist within 2-3 days to be rechecked or seek medical attention if your symptoms do not go away or get worse. If you develop any new or worsening symptoms and need after hours care, please go to nearest ER and/or call 911. If you have additional concerns or develop a change in your condition between 8am-10pm, please call [facility] at [phone] to help navigate your care. [email or web address] Not available 09/02/2021 22:29:43 12/08/2021 [id number] Thank you for yo ur visit with [employer] today. We cannot always find the exact [...] in your condition between 8am-10pm, please call [facility] at [phone] to help navigate your care. Thank you for your visit with [employer] today. You do not appear to have [...] in your condition between 8am-10pm, please call [facility] at [phone] to help navigate your care. [email or web address] Not available 12/08/2021 17:46:11 03/21/2022 [id number] Thank you for yo ur visit with [employer] today. You may have had laboratory tests [...] in your condition between 8am-10pm, [facility] at [phone] to help navigate your care. [email or web address] Not available 03/21/2022 17:19:04 Reason for Referral None Reported. Results Created Date Observation Date Name Description Value Unit Range Abnormal Flag Note LastModifiedBy Organization Detail LastModifiedTime 08/31/20 21 08/31/2021 rapid SARS CoV + SARS CoV 2 Ag, QL IA, respi rator y speci men Covid-19 (ref: neg) positi ve Not Available [facility] [address] [place], [address], 08/31/2021 11:22:25 08/31/20 21 08/31/2021 rapid SARS CoV + SARS CoV 2 Ag, QL IA, respi rator y speci men Control Visual ized/V alid Not Available [facility] [address] [place], [address], 08/31/2021 11:22:25 08/31/20 21 08/31/2021 rapid SARS CoV + SARS CoV 2 Ag, QL IA, respi rator y speci men Location SPR, [facility] Saida canas s , [address] [place] [address], [id number] Not Available [facility] [address] [place], [address], 08/31/2021 11:22:25 08/31/20 21 08/31/2021 rapid SARS CoV + SARS CoV 2 Ag, QL IA, respi rator y speci men Race & Ethnicity Other White Not Available [facility] [address] [place], [address], 08/31/2021 11:22:25 08/31/20 21 08/31/2021 rapid SARS CoV + SARS CoV 2 Ag, QL IA, respi rator y speci men Language Englis h Not Available [facility] [address], [place], [address], 08/31/2021 11:22:25 09/01/20 21 XR, chest , 2 view No observ ation record ed. [email or web address] ([facility] [employer]) [address] [facility], [place], [address], 09/02/2021 18:27:35 03/02/20 22 03/02/2022 venou s [...] MIRAMONTES M.D. 022 6:10:3 5 PM EDT. [email or web address] [employer] [address] [facility] [address], [place], [address], 03/04/2022 22:42:26 Result Notes None recorded. Problems Name Problem SNOMED Code Status Onset Date Resolution Date Notes Provider Name and Address Organization Details Recorded Time Hypertensive disorder 65682999 Active 2018 [place] [facility] 17:08:43 Hypertensive disorder 73391977 Active 2019 [place] [facility] 17:08:43 Problem Notes None recorded. Procedures Surgical History Date Name Laterality Status Provider Name and Address Organization Details Recorded Time 021 Medication Review completed Shania Marrero NP [address] [place], [address], [place] [facility] 10/22/2020 12:08:57 021 IV Start Procedure - completed JOSSE SALGADO NP [address] [place], [address], [place] [facility] 10/20/2020 12:39:22 020 Venipuncture - completed TAE SESAY [address] [place], [address], [place] [facility] 10/27/2019 23:49:05 cholecystectomy completed Carly DUBON NP [address] [place], [address], [place] [facility] 08/31/2021 11:12:48 hysterectomy completed Carly MCKEON NP [address] [place], [address], [place] [facility] 08/31/2021 11:12:58 Cabg vein four completed Carly MCKEON NP [address] [place], [address], [place] [facility] 08/31/2021 11:13:24 Imaging Results None recorded. Procedure Notes None [...] completed Not Available Not Available Not Available [employer] Ultra Test strips TESTS DAILY FOR DM, [...] Available No t Available Vitals Date Recorded Heart rate Oxygen saturation Oxygen saturation in Arterial blood by Pulse oximetry Respiratory rate Body temperature Systolic And Diastolic Provider Name and Address Organization Details Last Updated DateTime 2 68 /min 96 % 96 % 16 /min 96.7 [degF] 112/60 mm[Hg] Not Available [facility] 2 13:37:22 Date Recorded Oxygen saturation Oxygen saturation in Arterial blood by Pulse oximetry Respiratory rate Heart rate Body temperature Systolic And Diastolic Provider Name and Address Organization Details Last Updated DateTime 2 97 % 97 % 16 /min 71 /min 98.5 [degF] 116/68 mm[Hg] Not Available [facility] 2 15:55:18 Date Recorded Body temperature Oxygen saturation Oxygen saturation in Arterial blood by Pulse oximetry Heart rate Respiratory rate Systolic And Diastolic Provider Name and Address Organization Details Last Updated DateTime 1 97.5 [degF] 95 % 95 % 71 /min 20 /min 130/68 mm[Hg] Not Available [facility] 1 11:02:38 Date Recorded Oxygen saturation Oxygen saturation in Arterial blood by Pulse oximetry Respiratory rate Body temperature Heart rate Systolic And Diastolic Provider Name and Address Organization Details Last Updated DateTime 1 96 % 96 % 22 /min 98.6 [degF] 68 /min 124/78 mm[Hg] Not Available [facility] 1 16:52:24 Social History Question Answer Notes LastModified by Organizat ion Details LastModified Time Tobacco Smoking Status Former Smoker JOSSE SALGADO, GOLDIE [address], [place], [address], [place] [facility] 12/26/2019 13:07:15 Do You Have An Advance Directive? Yes Information not available 12/26/2019 What Is Your Code Status? Full Code Information not available 12/26/2019 Drugs Abused None [email or web address] Information not available 10/17/2020 How Many Days In The Past Year Have You Had A Heavy Drinking Consumption (4+ Female, 5+ Male)? 0 [email or web address] Information not available 10/17/2020 Within The Past 12 Months, Has It Happened That The Food You Bought Just Didn't Last And You Didn't Have Money To Get More. No Information not available 10/17/2020 Within The Past 12 Months, Have You Worried That Your Food Would Run Out Before You Got Money To Buy More. No [email or web address] Information not available 10/17/2020 Fall Risk: Do You Feel Unsteady When Standing Or Walking? Yes [email or web address] Information not available 10/17/2020 We Know That [...] Meetings) 1 Or 2 Times Per Week Information not available 10/17/2020 Excessive Alcohol Or Drug Use No [email or web address] Information not available 10/17/2020 We Know From Many Of Our Patients That Covering All Of Their Costs Can Be Difficult At Times. This Can Cause Stress And Impact Health. In The Past Year, Have You Been Unable To Get Any Of The Following When It Was Really Needed? No [email or web address] Information not available 10/17/2020 What Is Your Housing Situation Today? I Have Housing [email or web address] Information not available 10/17/2020 Would You Like Help Connecting To Resources? None [email or web address] Information not available 10/17/2020 Marital Status Informatio n not available 10/17/2020 What Was The Date Of Your Most Recent Tobacco Screening? 02/23/2019 [email or web address] Information not available 01/20/2020 Has Tobacco Cessation Counseling Been Provided? No [email or web address] Information not available 01/20/2020 How Many Years Have You Smoked Tobacco? 45 Information not available 08/31/2021 Sex: Unknown Functional Status Question Answer Note LastModified by Organizat ion Details LastModified Time Do you use [...] by Organization Details LastModified Time Father Malignant neoplasm of colon Not available 08/31 11:06:30 Mother Malignant neoplasm of colon Not available 08/31 11:06:30 Medical History Condition Response Diabetes Y Coronary Artery Disease Y CHF N Parkinson's Disease N Cancer N Stroke N Dementia N Asthma Y Hypothyroidism N Depression Y COPD Y High Cholesterol Y Rheumatoid Arthritis N Pulmonary Embolism N Hypertension Y A-fib N Osteoporosis Y Kidney Disease N Gynecological HistoryNo gynecological history recorded. Obstetrics History GPAL:G 0 P 0 0 0 0 Past Encounters Encounter ID Performer Location Encounter Start Date Encounter Closed Date Diagnosis/Indication Diagnosis SNOMED-CT Code Diagnosis ICD10 Code Diagnosis IMO Codes Diagnosis Note [id number] TAE RAMIREZ [facility] [address] [place] [address] 02/07/2019 08:54:53 02/10/2019 15:05:36 Swelling of lower leg 863706201 R22.40 Wheezing 60837980 R06.2 resolved Chronic ob structive pulmonary disease 86187615 J44.9 Congestive heart failure 93221007 I50.9 [id number] TAE SESAY [facility] [address] [place] [address] 02/19/2019 14:54:40 02/24/2019 12:56:57 Edema of lower extremity 846394754 R60.0 [id number] JOSSE SALGADO NP [facility] [address] [place] [address] 02/23/2019 16:49:50 02/24/2019 13:23:51 Low back strain 882386817 S39.012A [id number] TAE SESAY [facility] [address] [place] [address] 10/27/2019 14:16:46 10/28/2019 10:09:40 Edema of lower extremity 305259623 R60.0 Pain in ri ght lower limb 271207916 M79.604 Tear of skin 440078416 T 14.8XXA [id number] JOSSE SALGADO NP [facility] [address] [place] [address] 12/26/2019 12:57:09 12/29/2019 00:46:41 Facial laceration 083706305 S01.81XA Fall on sa me level from slipping, tripping or stumbling 422838527 W01.0XXA [id number] TAE SESAY [facility] [address] [place] [address] 01/16/2020 15:03:33 01/20/2020 13:32:20 Low back strain 926313570 S39.012A Low back pain 750199880 M54.5 [id number] Mayra Lee NP [facility] [address] [place] [address] 08/20/2020 11:06:15 08/23/2020 10:14:53 Tear of skin 059738456 T14.8XXA [id number] Mirela Mi RN [facility] [address] [place] [address] 08/22/2020 12:46:45 08/22/2020 13:06:28 [id number] JENSEN ZARCO NP [facility] [address] [place] [address] 08/22/2020 15:02:13 08/22/2020 21:37:57 Open wound of lower leg 544381497 S81.802A [id number] TAE CLEMONS [facility] [address] [place] [address] 10/17/2020 11:49:50 10/18/2020 11:22:26 Cellulitis of lower limb 468518465 L03.119 Swelling of lower leg 44 3090103 R22.40 [id number] JOSSE SALGADO NP [facility] [address] [place] [address] 10/20/2020 11:54:28 10/21/2020 12:53:21 Cellulitis of lower limb 450670897 L03.119 Exposure t o communicable disease 291413095 Z20.828 [id number] Shania Marrero, FRONT OFFICE DEVELOPER [facility] [address] [place] [address] 10/22/2020 11:14:08 10/24/2020 17:43:41 Wound cellulitis 120285622 L03.90 [id number] JENSEN CAROLEE, FRONT OFFICE DEVELOPER [facility] [address] [place] [address] 02/02/2021 14:10:24 02/03/2021 13:29:29 Cellulitis of left lower limb 9968032123 4437551 L03.116 [id number] TAE KNOWLES [facility] [address] [place] [address] 02/06/2021 14:32:51 02/07/2021 12:44:05 Cellulitis of lower leg 595612698 L03.119 Deep vein thrombosis suspected 066634509 Z13.6 [id number] Mayra Lee, FRONT OFFICE DEVELOPER [facility] [address] [place] [address] 04/03/2021 20:43:28 04/05/2021 23:52:12 Dizziness present 149212311 R42 Overview/H istory: Patient is an 85 [...] completed Proper Personal Protective Equipment (PPE), including gloves, eye protection and masks were donned and doffed senia shields and all equipment cleaned using approved technique with germicidal disposable wipes prior to and after care of this patient according [facility]. In order to obtain further informatio n and compare any laboratory results/va lues, I have accessed old patient records. This informatio n was pertinent in my medical decision making today. Low back pain 640372315 M54.5 Unintentio nal weight gain 2721356012 18993 R63.5 [id number] Carly MCKEON NP [facility] [address] [place] [address] 08/31/2021 10:49:08 09/06/2021 16:59:08 COVID-19 465643049 U07.1 + rapid Cough 91004693 R05.9 dry cough Chronic ob structive pulmonary disease 10781168 J44.9 pending [facility] enrollment , Rx to be sent by TAE Quinones for z-geno and proair 90 mcg 2 puffs every 4-6 hours as needed for fine scattered bilateral wheezepati ent declines any current Rx for GWEN Lethargy 239361098 R53.8 3 Exposure t o SARS-CoV-2 413224609 Z20.822 reports not leaving her apartment, has friend who gets mail for her, however she did go to [facility] ED on 08/27 for abdominal pain, nausea, diarrhea.s he denies any known exposure but high risk in ED [id number] Carly MCKEON NP [facility] [address] [place] [address] 09/02/2021 16:39:33 09/06/2021 11:49:43 COVID-19 816016592 U07.1 re-evaluat ion to monitor O2 which is 96 RAcurrentl y on day 3 of zpak Chronic ob structive pulmonary disease 29197554 J44.9 pt reports compliance with inhalers [id number] TAE Rosales [facility] [address] [place] [address] 12/08/2021 17:45:03 12/09/2021 10:11:45 Pain of toe of right foot 4344293938 92908 M79.674 Proper Personal Protective Equipment (PPE), including gloves, eye protection and masks were donned and doffed senia alyson and all equipment cleaned using approved technique with germicidal disposable wipes prior to and after care of this patient according to [facility]'s infection prevention protocols. Overview/H istory: 86 Exam: [...] necrotic appearance , fevers, chest pain, sob. [id number] TAE Blancas [facility] [address] [place] [address] 02/28/2022 13:02:35 03/02/2022 12:14:09 Suspected soft tissue infection 8519800575 64847 Z20.818 Localized swelling of left lower leg 2269939446 3391390 R22.42 [id number] Yue Molina NP [facility] [address] [place] [address] 03/21/2022 15:37:31 03/24/2022 15:14:02 Wound cellulitis 245745042 L03.90 Health Concerns Section Related Observation LastModified by Organization Detai ls LastModified Time None Recorded Concern Status LastModified by Organization Details LastModified Time None Recorded Advance Directives Directive Y: Payers Insurance Date Sequence Insurance Name Policy Number Policy Anders Covered Member ID Anders Member ID Guarantor Name 02/07/2021 1 [place] [employer] Shreya M Gravel [id number] Shreya Gravel 02/07/2021 1 *SELF PAY* Shreya Gravel [id number] Shreya Gravel 02/07/2021 2 [place] [id number] Shreya Gravel [id number] Shreya Gravel 02/07/2021 1 [place] G[place]ERNMENT [place] Mone Gravel [id number] Shreya Gravel 02/07/2021 1 [place] Shreya M Gravel [id number] Shreya Gravel 02/07/2021 2 [place] Mone Gravel [id number] Shreya Gravel 02/07/2021 1 *SELF PAY* Mone Gravel [id number] Shreya Gravel 02/07/2021 2 [place] Mone Gravel [id number] Shreya Gravel 03/21/2022 PENDING Shreya Gravel [id number] Shreya Gravel 03/21/2022 PENDING Shreya Gravel [id number] Shreya Gravel 03/24/2022 2 [place] [id number] Shreya Gravel [id number] Shreya Gravel 03/21/2022 PENDING Shreya Gravel [id number] Shreya Gravel 03/28/2022 1 [place] Shreya M Gravel [id number] Shreay Gravel 02/07/2021 2 [place] [id number] Heather Gravel [id number] Shreya Gravel 02/07/2021 1 [place] Shreya Gravel [id number] Shreya Gravel 02/07/2021 1 [place] Shreya M Gravel [id number] Shreya Gravel 02/07/2021 2 [facility] GLOBAL Shreya Gravel [id number] Shreya Gravel 02/07/2021 2 [facility] GLOBAL Shreya Gravel [id number] Shreya Gravel 02/07/2021 1 *SELF PAY* Shreya Gravel [id number] Shreya Gravel 02/07/2021 2 [employer] GLOBAL Shreya Gravel [id number] Shreya Gravel 04/03/2021 2 [place] [id number] Shreya Gravel [id number] Shreya Gravel 05/01/2021 1 [facility] GLOBAL Shreya Gravel [id number] Shreya Gravel 08/31/2021 2 [place] [id number] Shreya Gravel [id number] Shreya Gravel 09/06/2021 2 [facility] GLOBAL Shreya Gravel [id number] Shreya Gravel 09/02/2021 2 [place] [id number] Shreya Gravel [id number] Shreya Gravel 09/06/2021 2 [place] [id number] Shreya Gravel [id number] Shreya Gravel 12/08/2021 2 [place] [id number] Shreya Gravel [id number] Shreya Gravel 03/24/2022 2 [place] [id number] Shreya Gravel [id number] Shreya Gravel 03/21/2022 1 [place] NATIONAL [facility] Shreya M Gravel [id number] 4 Shreya Gravel 02/07/2021 2 [place] [id number] Heather Gravel [id number] Shreya Gravel Notes Date Note Type Note Provider Name and Address Organization Details Recorded Time 08/31/2021 text/html This is a 86 year old female, who has PMH of asthma, [...] contacts. On 08/27/2021 she reports going to [facility] ED for evaluation of abdominal pain, nausea, diarrhea, and was d/c home same day with Rx for zofran in which she did not roll picker. She reports 2 nights ago waking up in the morning with diarrhea. She denies any fevers, shortness of breath, difficulty breathing, chest pain, palpitations, dizziness, unilateral weakness, change in mental status, vision, speech, taste and or smell. Carly MCKEON, GOLDIE [address], [place], [address], [place] [facility] 08/31/2021 20:14:52 09/02/2021 text/html [...] numbness, tingling, change in mental status. Carly MCKEON, GOLDIE [address], [place], [address], [place] [facility] 09/02/2021 22:38:32 12/08/2021 text/html General HPI Template - DHReported by Patient -86 yo female new to provider known to -pt reports the [...] no CP TAE Rosales [address], [place], [address], [place] [facility] 12/08/2021 18:26:26 02/28/2022 text/html Ms aClvert fell about 2 weeks ago and sustained laceration to the left lower leg, and a wound to the right mid middleton, She had the sutures removed on February 19, 2022 she had xrays done all negative for fractures. she had 19 sutures on the left lower extremity then she got home and had infection [facility], then went to [facility] for rehab. 02/08/2022 home. TAE Blancas [address], [place], [address], [place] [facility] 03/08/2022 20:04:51 03/21/2022 text/html 86 yo F with wounds to the left s/p fall in early February. She had sutures in the left leg that became infected and a smaller wound to the middleton of the right lower leg. [facility] is following her for her wounds and are in every 2 days for assessment and dressing changes. Today she states she has burning to her legs and redness to of both legs.F/u with PCP in 03/30/22. Yue Molina NP [address], [place], [address], [place] [facility] 03/21/2022 20:19:51 OBGyn Episode No OBEpisode recorded.
[2025-08-06 06:59] LABS: Hematocrit 40.4 % (37.0-47.0); Hemoglobin 12.8 g/dl (12.0-16.0); Imm Gran Abs Auto 0.03 X10*3/uL (0.00-0.03); Imm Gran Pct Auto 0.4 % (0.0-0.4); Lymphocytes Absolute Auto 1.2 X10*3/uL (1.2-4.9); Mean Corpuscular HGB Conc 31.7 g/dl (31.0-35.0); Mean Corpuscular Hemoglobin 31.9 pg (27.0-33.0); Mean Corpuscular Volume 100.7 fL (80.0-98.0); NRBC Abs Auto 0.000 X10*3/uL (0.0-0.012); NRBC Pct Auto 0.0 /100WBC (0.0-0.2); Platelet Count 193 X10*3/uL (160-400); Red Blood Count 4.01 X10*6/uL (4.20-5.50); White Blood Count 8.2 X10*3/uL (4.8-10.8)
[2025-08-06 07:09] LABS: Anion Gap 14 (12-20); Blood Urea Nitrogen 25 mg/dL (9-16); Calcium 9.0 mg/dL (8.4-10.2); Carbon Dioxide 22 mmol/L (22-29); Chloride 109 mmol/L (96-108); Estimated Glomerular Filt Rate 55; Potassium 3.5 mmol/L (3.3-5.1); Sodium 141 mmol/L (135-145)
[2025-08-06 07:25] LABS: Procalcitonin 0.12 ng/mL
== END 2025-08-06 06:14 | disposition home or self-care (01) ==
LOC: HO.MMNH3L 06:13
PROVIDERS: Visit Provider Physician Assistant Medical
DX: G93.41 Metabolic encephalopathy (principal)
CPT/HCPCS: 36415; 80048; 84145; 85025

== ENCOUNTER 2025-09-16 06:36 | Outpatient (REF) | payer MEDICARE, MEDICAID, SELFPAY ==
[2025-09-16 06:40] LABS: MANUAL DIFF FLAG NO
--- OUTSIDE RECORDS SUMMARY | 2025-09-16 06:40 | XMS_ITS | Data Portability ---
Author Organization [place] [facility] Address [address] [place] [address] Care Team Providers Care Environmental Property Assessor Name Role Phone ABAD ISLAS Primary Care Provider [facility]NAG[facility] OTHER Assessment Encounter Date Assessment [...] care of this patient according to [facility]'s infection prevention protocols. Not available 08/31/2021 [...] care of this patient according to [facility]'s infection prevention protocols. Not available 09/02/2021 22:38:16 03/21/2022 03/21/2022 Overview/History : 86 yo F established with new to this provider presents for evaluation of wounds to both lower legs s/p fall in February. The left wound failed to close with sutures and she developed an infection as well. She is followed by [facility] for wound care of both legs. She has developed burning pain with and redness to both wounds worse on the left. [facility] is coming in every two days [...] left extremity that is consistent with cellulitis. [facility] is in every 2 days [...] care of this patient according to [facility]'s infection prevention protocols. [email or web address] Not available 03/21/2022 20:18:44 Plan of Treatment Reminders Order Date Submit Date Provider Last Modified By Organization Details Last Modified Time Details Appointments None recorded. Lab rapid SARS CoV + SARS CoV 2 Ag, QL IA, respiratory specimen 2020 021 [email or web address] 3 [facility], [address] [place] [address], [address], 11:23:08 Referral None recorded. Procedures None recorded. Surgeries None recorded. Imaging US, duplex, venous, extremity, limited - swelling of left lower extremity, s/p fall and wound to left lower extremity r/o DVT pt is homebound,d oes not drive 2021 022 [email or web address] [facility] ([facility] [address] [place], [address], 2 18:21:15 XR, foot, 3 or more view - r/o right 2nd toe fracture. call pt @ 2021 022 [email or web address] [facility] Corporate Office ([facility] [address] [place], [address], 2 10:17:17 XR, chest, 2 view 2020 021 [email or web address] [facility] Corporate [facility] ([facility] [address] [place], [address], 16:59:08 Medication Orders cephalexin 500 mg capsule 2021 022 [email or web address] [id number], [address] [place], [address], 16:20:51 cephalexin 500 mg capsule 2021 022 MAGDY [id number], [address] [place], [address], 16:21:00 cephalexin 500 mg capsule 2021 022 [email or web address] [id number], [address] [place], [address], 15:51:19 azithromyci n 250 mg tablet 2020 021 [email or web address] [id number], [address] [place], [address], 13:35:29 Patient TargetsNo targets recorded. Patient Instructions Encounter Date Encounter Id Patient Instructions Last Modified By Organization Details Last Modified Time 08/31/2021 [id number] What is coronavi ethel disease 2019? Coronavirus disease 2019 (COVID-19) is a respiratory illness that can spread from person to person. The virus that causes COVID-19 is a novel coronavirus that was first identified during an investigation into an outbreak in [facility]. Can I get COVID-19? Yes. COVID-19 is [...] least 20 seconds. Use an alcohol-based hand gluing machine adjuster that contains at least 60% alcohol if [...] (EUA). The EUA is supported by the Puzzle As[employer]er of Health and Human Service s (HHS [...] or worsen. Not available 08/31/2021 20:06:42 09/02/2021 [id number] Thank you for yo ur [facility]. We cannot always find the [...] condition between 8am-10pm, please call [facility] at [phone] to help navigate your care. [email or web address] pablo Not available 09/02/2021 22:29:43 12/08/2021 [id number] Thank you for yo ur visit with [facility] today. We cannot always find the exact [...] in your condition between 8am-10pm, please call [facility] at [phone] to help navigate your care. Thank you for your visit with [facility] today. You do not appear to have [...] in your condition between 8am-10pm, please call [facility] at [phone] to help navigate your care. [email or web address] Not available 12/08/2021 17:46:11 03/21/2022 [id number] Thank you for yo ur visit with [facility] today. You may have had laboratory tests [...] in your condition between 8am-10pm, [facility] at [phone] to help navigate your care. [email or web address] Not available 03/21/2022 17:19:04 Reason for Referral None Reported. Results Created Date Observation Date Name Description Value Unit Range Abnormal Flag Note LastModifiedBy Organization Detail LastModifiedTime 08/31/20 21 08/31/2021 rapid SARS CoV + SARS CoV 2 Ag, QL IA, respi rator y speci men Covid-19 (ref: neg) positi ve Not Available [facility] [address] [place], [address], 08/31/2021 11:22:25 08/31/20 21 08/31/2021 rapid SARS CoV + SARS CoV 2 Ag, QL IA, respi rator y speci men Control Visual ized/V alid Not Available [facility] [address] [place], [address], 08/31/2021 11:22:25 08/31/20 21 08/31/2021 rapid SARS CoV + SARS CoV 2 Ag, QL IA, respi rator y speci men Location [facility], [facility] Saida canas s , [address] [place] [address], [id number] Not Available [facility] [address] [place], [address], 08/31/2021 11:22:25 08/31/20 21 08/31/2021 rapid SARS CoV + SARS CoV 2 Ag, QL IA, respi rator y speci men Race & Ethnicity Other White Not Available [facility] [address] [place], [address], 08/31/2021 11:22:25 08/31/20 21 08/31/2021 rapid SARS CoV + SARS CoV 2 Ag, QL IA, respi rator y speci men Language Englis h Not Available [facility] [address], [place], [address], 08/31/2021 11:22:25 09/01/20 21 XR, chest , 2 view No observ ation record ed. [email or web address] ([facility] [employer]) [address] [facility], [place], [address], 09/02/2021 18:27:35 03/02/20 22 03/02/2022 venou s [...] MIRAMONTES M.D. 022 6:10:3 5 PM EDT. [email or web address] [employer] [address] [facility] [address], [place], [address], 03/04/2022 22:42:26 Result Notes None recorded. Problems Name Problem SNOMED Code Status Onset Date Resolution Date Notes Provider Name and Address Organization Details Recorded Time Hypertensive disorder 44974985 Active 2018 [place] [facility] 17:08:43 Hypertensive disorder 35177809 Active 2019 [place] [facility] 17:08:43 Problem Notes None recorded. Procedures Surgical History Date Name Laterality Status Provider Name and Address Organization Details Recorded Time 021 Medication Review completed Shania Marrero NP [address] [place], [address], [place] [facility] 10/22/2020 12:08:57 021 IV Start Procedure - completed JOSSE SALGADO NP [address] [place], [address], [place] [facility] 10/20/2020 12:39:22 020 Venipuncture - completed TAE SESAY [address] [place], [address], [place] [facility] 10/27/2019 23:49:05 cholecystectomy completed Carly DUBON NP [address] [place], [address], [place] [facility] 08/31/2021 11:12:48 hysterectomy completed Carly MCKEON NP [address] [place], [address], [place] [facility] 08/31/2021 11:12:58 Cabg vein four completed Carly MCKEON NP [address] [place], [address], [place] [facility] 08/31/2021 11:13:24 Imaging Results [...] completed Not Available Not Available Not Available [employer] Ultra Test strips TESTS DAILY FOR DM, [...] Vitals Date Recorded Heart rate Oxygen saturation Respiratory rate Body temperature Systolic And Diastolic Provider Name and Address Organization Details Last Updated DateTime 2 68 /min 96 % 16 /min 96.7 [degF] 112/60 mm[Hg] Not Available [facility] 2 13:37:22 Date Recorded Oxygen saturation Respiratory rate Heart rate Body temperature Systolic And Diastolic Provider Name and Address Organization Details Last Updated DateTime 2 97 % 16 /min 71 /min 98.5 [degF] 116/68 mm[Hg] Not Available Critical [facility] hospital 2 15:55:18 Date Recorded Body temperature Oxygen saturation Heart rate Respiratory rate Systolic And Diastolic Provider Name and Address Organization Details Last Updated DateTime 1 97.5 [degF] 95 % 71 /min 20 /min 130/68 mm[Hg] Not Available Critical [facility] hospital 1 11:02:38 Date Recorded Oxygen saturation Respiratory rate Body temperature Heart rate Systolic And Diastolic Provider Name and Address Organization Details Last Updated DateTime 1 96 % 22 /min 98.6 [degF] 68 /min 124/78 mm[Hg] Not Available Critical [facility] hospital 1 16:52:24 Social History Question Answer Notes LastModified by Organizat ion Details LastModified Time Tobacco Smoking Status Former Smoker JOSSE SALGADO, GOLDIE [address] [place], [address], [place] [facility] 12/26/2019 13:07:15 Do You Have An Advance Directive? Yes Information not available 12/26/2019 What Is Your Code Status? Full Code Information not available 12/26/2019 Drugs Abused None [email or web address] Information not available 10/17/2020 How Many Days In The Past Year Have You Had A Heavy Drinking Consumption (4+ Female, 5+ Male)? 0 [email or web address] Information not available 10/17/2020 Within The Past 12 Months, Has It Happened That The Food You Bought Just Didn't Last And You Didn't Have Money To Get More. No [email or web address] Information not available 10/17/2020 Within The Past 12 Months, Have You Worried That Your Food Would Run Out Before You Got Money To Buy More. No [email or web address] Information not available 10/17/2020 Fall Risk: Do You Feel Unsteady When Standing Or Walking? Yes [email or web address] Information not available 10/17/2020 We Know That How And When People Interact With Friends And Family Can Be Very Different From Person To Person. How Often Do You Have The Opportunity To See Or Talk To People That You Care About And Feel Close To? (Ex: Talking To Friends On The Phone Or Visiting Friends Or Family Or Going To Sikh Or Club Meetings) 1 Or 2 Times Per Week [email or web address] Information not available 10/17/2020 Excessive Alcohol Or Drug Use No [email or web address] Information not available 10/17/2020 We Know From Many Of Our Patients That Covering All Of Their Costs Can Be Difficult At Times. This Can Cause Stress And Impact Health. In The Past Year, Have You Been Unable To Get Any Of The Following When It Was Really Needed? No Information not available 10/17/2020 What Is Your Housing Situation Today? I Have Housing [email or web address] Information not available 10/17/2020 Would You Like Help Connecting To Resources? None Information not available 10/17/2020 Marital Status [email or web address] Informatio n not available 10/17/2020 What Was The Date Of Your Most Recent Tobacco Screening? 02/23/2019 [email or web address] Information not available 01/20/2020 Has Tobacco Cessation Counseling Been Provided? No [email or web address] Information not available 01/20/2020 How Many Years [...] available 08/31 11:06:30 Medical History Condition Response Coronary Artery Disease Y Parkinson's Disease N COPD Y Depression Y Hypothyroidism N A-fib N Diabetes Y CHF N Cancer N Dementia N Stroke N Asthma Y High Cholesterol Y Rheumatoid Arthritis N Pulmonary Embolism N Hypertension Y Osteoporosis Y Kidney Disease N Gynecological HistoryNo gynecological history recorded. Obstetrics History GPAL:G 0 P 0 0 0 0 Past Encounters Encounter ID Performer Location Encounter Start Date Encounter Closed Date Diagnosis/Indication Diagnosis SNOMED-CT Code Diagnosis ICD10 Code Diagnosis IMO Codes Diagnosis Note [id number] TAE RAMIREZ [facility] [address] [place] [address] 02/07/2019 08:54:53 02/10/2019 15:05:36 Swelling of lower leg 286623722 R22.40 Wheezing 09547524 R06.2 resolved Chronic ob structive pulmonary disease 47483363 J44.9 Congestive heart failure 35864813 I50.9 [id number] TAE SESAY [facility] [address] [place] [address] 02/19/2019 14:54:40 02/24/2019 12:56:57 Edema of lower extremity 691054552 R60.0 [id number] JOSSE SALGADO NP [facility] [address] [place] [address] 02/23/2019 16:49:50 02/24/2019 13:23:51 Low back strain 537241363 S39.012A [id number] TAE SESAY [facility] [address] [place] [place] [address] 10/27/2019 14:16:46 10/28/2019 10:09:40 Edema of lower extremity 844696081 R60.0 Pain in ri ght lower limb 166860726 M79.604 Tear of skin 804973752 T 14.8XXA [id number] JOSSE SALGADO NP [facility] [address] [place] [facility] [place] [address] 12/26/2019 12:57:09 12/29/2019 00:46:41 Facial laceration 729825651 S01.81XA Fall on sa me level from slipping, tripping or stumbling 493696636 W01.0XXA [id number] TAE SESAY [facility] [address] [place] [address] 01/16/2020 15:03:33 01/20/2020 13:32:20 Low back strain 865000943 S39.012A Low back pain 074067253 M54.5 [id number] Mayra Lee NP [facility] [address] [facility] [place] [address] 08/20/2020 11:06:15 08/23/2020 10:14:53 Tear of skin 431791596 T14.8XXA [id number] Mirela Mi RN [facility] [address] [place] [address] 08/22/2020 12:46:45 08/22/2020 13:06:28 [id number] JENSEN ZARCO NP [facility] [address] [facility] [place] [address] 08/22/2020 15:02:13 08/22/2020 21:37:57 Open wound of lower leg 175217938 S81.802A [id number] TAE CLEMONS [facility] [address] [facility] [place] [address] 10/17/2020 11:49:50 10/18/2020 11:22:26 Cellulitis of lower limb 286104225 L03.119 Swelling of lower leg 44 1705374 R22.40 [id number] JOSSE SALGADO NP [facility] [address] [place] [address] 10/20/2020 11:54:28 10/21/2020 12:53:21 Cellulitis of lower limb 768588907 L03.119 Exposure t o communicable disease 299647766 Z20.828 [id number] Shania Marrero, GOLDIE [facility] [address] [place] [address] 10/22/2020 11:14:08 10/24/2020 17:43:41 Wound cellulitis 828823310 L03.90 [id number] JENSENLian ZARCO NP [facility] [address] [place] [address] 02/02/2021 14:10:24 02/03/2021 13:29:29 Cellulitis of left lower limb 9396095920 8771356 L03.116 [id number] TAE KNOWLES [facility] [address] [place] [address] 02/06/2021 14:32:51 02/07/2021 12:44:05 Cellulitis of lower leg 502835435 L03.119 Deep vein thrombosis suspected 731078483 Z13.6 [id number] Mayra Lee NP [facility] [address] [place] [address] 04/03/2021 20:43:28 04/05/2021 23:52:12 Dizziness present 593892704 R42 Overview/H istory: Patient is an 85 [...] after care of this patient according to [facility] infection prevention protocols. In order to obtain further informatio n and compare any laboratory results/va lues, I have accessed old patient records. This informatio n was pertinent in my medical decision making today. Low back pain 466068352 M54.5 Unintentio nal weight gain 1129424276 05517 R63.5 [id number] Carly MCKEON NP [facility] [address] [place] [address] 08/31/2021 10:49:08 09/06/2021 16:59:08 COVID-19 473783451 U07.1 + rapid Cough 91900395 R05.9 dry cough Chronic ob structive pulmonary disease 40779501 J44.9 pending [facility] enrollment , Rx to be sent by TAE Quinones for z-geno and proair 90 mcg 2 puffs every 4-6 hours as needed for fine scattered bilateral wheezepati ent declines any current Rx for GWEN Lethargy 624239757 R53.8 3 Exposure t o SARS-CoV-2 871382489 Z20.822 reports not leaving her apartment, has friend who gets mail for her, however she did go to [facility] ED on 08/27 for abdominal pain, nausea, diarrhea.s he denies any known exposure but high risk in ED [id number] Carly MCKEON NP [facility] [address] [place] [address] 09/02/2021 16:39:33 09/06/2021 11:49:43 COVID-19 859073378 U07.1 re-evaluat ion to monitor O2 which is 96 RAcurrentl y on day 3 of zpak Chronic ob structive pulmonary disease 89799364 J44.9 pt reports compliance with inhalers [id number] TAE Rosales [facility] [address] [place] [address] 12/08/2021 17:45:03 12/09/2021 10:11:45 Pain of toe of right foot 9613711493 26598 M79.674 Proper Personal Protective Equipment (PPE), including gloves, eye protection and masks were donned and doffed senia shields and all equipment cleaned using approved technique with germicidal disposable wipes prior to and after care of this patient according to [facility] infection prevention protocols. Overview/H istory: 86 Exam: [...] necrotic appearance , fevers, chest pain, sob. [id number] TAE Blancas [facility] [address] [place] [address] 02/28/2022 13:02:35 03/02/2022 12:14:09 Suspected soft tissue infection 4881674299 43316 Z20.818 Localized swelling of left lower leg 6278724900 3492845 R22.42 [id number] Yue Molina NP [facility] [address] [place] [address] 03/21/2022 15:37:31 03/24/2022 15:14:02 Wound cellulitis 251274679 L03.90 Health Concerns Section Related Observation LastModified by Organization Detai ls LastModified Time None Recorded Concern Status LastModified by Organization Details LastModified Time None Recorded Advance Directives Directive Y: Payers Insurance Date Sequence Insurance Name Policy Number Policy Anders Covered Member ID Anders Member ID Guarantor Name 02/07/2021 1 [place] [employer] Shreya M Gravel [id number] Shreya Gravel 02/07/2021 1 *SELF PAY* Shreya Gravel [id number] Shreya Gravel 02/07/2021 2 [facility] [id number] Shreya Gravel [id number] Shreya Gravel 02/07/2021 1 [place] [employer] SERVICES Mone Gravel [id number] Shreya Gravel 02/07/2021 1 [place] GOVERNMENT [place] Shreya M Gravel [id number] Shreya Gravel 02/07/2021 2 [place] Mone Gravel [id number] Shreya Gravel 02/07/2021 1 *SELF PAY* Mone Gravel [id number] Shreya Gravel 02/07/2021 2 [place] Mone Gravel [id number] Shreya Gravel 03/21/2022 PENDING Shreya Gravel [id number] Shreya Gravel 03/21/2022 PENDING Shreya Gravel [id number] Shreya Gravel 03/24/2022 2 [place] [id number] Shreya Gravel [id number] Shreya Gravel 03/21/2022 PENDING Shreya Gravel [id number] Shreya Gravel 03/28/2022 1 [place]ERNMENT [place] Shreya M Gravel [id number] Shreya Gravel 02/07/2021 2 [place] [id number] Heather Gravel [id number] Shreya Gravel 02/07/2021 1 [place] Shreya Gravel [id number] Shreya Gravel 02/07/2021 1 [place] Shreya M Gravel [id number] Shreya Gravel 02/07/2021 2 [facility] Shreya Gravel [id number] Shreya Gravel 02/07/2021 2 [facility] Shreya Gravel [id number] Shreya Gravel 02/07/2021 1 *SELF PAY* Shryea Gravel [id number] Shreya Gravel 02/07/2021 2 [facility] Shreya Gravel [id number] Shreya Gravel 04/03/2021 2 [place] [id number] Shreya Gravel [id number] Shreya Gravel 05/01/2021 1 [facility] Shreya Gravel [id number] Shreya Gravel 08/31/2021 2 [place] [id number] Shreya Gravel [id number] Shreya Gravel 09/06/2021 2 [facility] Shreya Gravel [id number] Shreya Gravel 09/02/2021 2 [place] [id number] Shreya Gravel [id number] Shreya Gravel 09/06/2021 2 [place] [id number] Shreya Gravel [id number] Shreya Gravel 12/08/2021 2 [place] [id number] Shreya Gravel [id number] Shreya Gravel 03/24/2022 2 [place] [id number] Shreya Gravel [id number] Shreya Gravel 03/21/2022 1 [place]ERN[place] Shreya M Gravel [id number] Shreya Gravel 02/07/2021 2 [place] [id number] Heather Gravel [id number] Shreya Gravel Notes Date Note Type [...] contacts. On 08/27/2021 she reports going to [facility] ED for evaluation of abdominal pain, nausea, diarrhea, and was d/c home same day with Rx for zofran in which she did not rock picker. She reports 2 nights ago waking up in the morning with diarrhea. She denies any fevers, shortness of breath, difficulty breathing, chest pain, palpitations, dizziness, unilateral weakness, change in mental status, vision, speech, taste and or smell. Carly MCKEON NP [address], [place], [address], [place] [facility] 08/31/2021 20:14:52 09/02/2021 text/html [...] in mental status. Carly MCKEON NP [address], [place], [address], [place] [facility] 09/02/2021 22:38:32 12/08/2021 text/html [...] no cough, no CP TAE Rosales [address], [place], [address], [place] [facility] 12/08/2021 18:26:26 02/28/2022 text/html [...] got home and had infection went to [facility] was admitted for a week, then went to [facility] for rehab. 02/08/2022 home. TAE Blancas [address], [place], [address], [place] [facility] 03/08/2022 20:04:51 03/21/2022 text/html 86 yo F with wounds to the left s/p fall in early February. She had sutures in the left leg that became infected and a smaller wound to the middleton of the right lower leg. [facility] is following her for her wounds and are in every 2 days for assessment and dressing changes. Today she states she has burning to her legs and redness to of both legs.F/u with PCP in 03/30/22. Yue Molina NP [address], [place], [address], [place] [facility] 03/21/2022 20:19:51 OBGyn Episode No OBEpisode recorded.
--- OUTSIDE RECORDS SUMMARY | 2025-09-16 06:40 | XMS_ITS | Clinical Summary ---
Author Organization [address] [facility] Address [address] [place] [address] Phone Care Team Providers Care Electronic Integrated Systems Mechanic Name Role Phone Rex Bass MD Primary Care Provider [phone] Allergies Active Allergy Reactions Criticality Noted Date [...] CMS/HCC V28) DX:Chronic obstructive pulm onary disease (HCC) Chronic pain DX:Chronic pain Compression fracture of L1 l umbar vertebra ([facility] V24, [facility] V28) DX:Compression fra cture of L1 lumbar vertebra ([facility]); COMMENT: and t12 vertebra Degeneration macular DX:Degenera tion macular Depression DX:Depression Diabetes type 2, controlled ([facility] V24, [facility] V28) DX:Diabetes type 2, controll ed ([facility]) Diverticulitis DX:Diverticuliti s Elevated LFTs DX:Elevated [...] 2 obesi ty Osteoporosis DX:Osteoporosis Primary hyperparathyroidism ([facility] V24) DX:Primary hyperparathyroidi sm ([facility]) Recurrent falls DX:Recurrent fal ls Restless [...] Years Used Date Smoking Tobacco: Former Cigarettes 0.5 Q uit: 10/07/1997 Smokeless Tobacco: Never Alcohol Use Standard Drinks/Week Comments Yes 0 (1 standard drink = 0.6 oz pur e alcohol) Comments Unknown Sex and Gender Information Value Date Recorded Sex Assigned at Not on file Legal Sex Female 6:31 PM EST Gender Identity Not on file Sexual Orientation Not on file Last Filed Vital Signs Vital Sign Reading [...] Control Test (HGBA1C) 10/19/2024 COVID-19 Vaccine ( - season) 2025 02/28/2022, 08/23/2021, 12/03/2020, Additional history [...] patient's age to complete this topic Insurance [facility] MEDICAID - [place] MEDICARE Advance Directives Documents on File Type Date Recorded Patient Director Channel Expl anation Health Care Decision (hx) 09/26/2023 AD FARNSWORTH DIRECTIVE Health Care Decision (hx) 05/09/2021 AD FARNSWORTH DIRECTIVE Health Care Decision (hx) 05/09/2021 AD FARNSWORTH DIRECTIVE Care Teams Electronic Integrated Systems Mechanic Relationship Specialty Start Date End Date Rex Bass MD [address], [phone] PCP - General 04/23/24
--- OUTSIDE RECORDS SUMMARY | 2025-09-16 06:40 | XMS_ITS | Data Portability ---
Author Organization [facility], PAIN OFFICE Address [address] [place] [address] Care Team Providers Care Upper Shaper Name Role Phone ABAD GONSALES Primary Care [...] appointment has been booked. She needs a driver's education instructor on the day of the procedure. She [...] By Organization Details Last Modified Time 06/26/2021 [id number] She was advised against bed rest lasting longer than four days and to continue activities as tolerated. [email or web address] Not available 06/30/2021 10:01:24 07/11/2021 [id number] She was advised to continue with activities as tolerated [email or web address] Not available 07/11/2021 13:35:39 10/04/2021 [id number] She was advised to continue with activities as tolerated [email or web address] Not available 10/04/2021 11:55:19 12/12/2021 [id number] She was advised to continue with activities as tolerated [email or web address] Not available 12/12/2021 12:09:37 08/21/2022 [id number] She was advised to continue with activities as tolerated [email or web address] Not available 08/21/2022 10:34:48 Reason for Referral None Reported. Problems Name Problem SNOMED Code Status Onset Date Resolution Date Notes Provider Name and Address Organization Details Recorded Time Post-herpetic neuritis [id number] Gris adams MD [address] [place] [address] , [address], [facility] [place], [address] [facility] [place] [facility] 9 14:56:27 Inflammation of joint of shoulder region 910631155 Gris adams, MD [address] , [address], [place], [address], [place] [facility] 9 09:39:04 Spinal stenosis of lumbar region 03607186 Active 2016 Alf adams MD [address] , [address], [place], [address], [place] [facility] 7 10:55:25 Lumbosacral spondylosis without myelopathy 11505219 Active 2016 Alf adams MD [address] , [address], [place], [address], [place] [facility] 7 10:55:26 Lumbosacral radiculitis 63777265 Active 2016 Alf adams MD [address] , [address], [place], [address], [place] [facility] 7 10:55:27 Displacement of lumbar intervertebral disc without myelopathy 03573942 Active 2016 Alf adams MD [address] , [address], [place], [address], [place] [facility] 7 10:55:30 Problem Notes None recorded. Procedures Surgical History Date Name Laterality Status Provider Name and Address Organization Details Recorded Time 08/21/20 22 Lumbar Epidural steroid injection under fluoroscopic guidance completed Alf Posada MD [address] , [address], [place], [address], [place] [facility] 08/21/2022 10:36:53 12/13/19 22 Lumbar Epidural steroid injection under fluoroscopic guidance completed Alf Posada MD [address] , [address], [place], [address], [place] [facility] 12/12/2021 12:09:46 10/04/20 21 Lumbar Epidural steroid injection under fluoroscopic guidance completed Alf Posada MD [address] , [address], [place], [address], [place] [facility] 10/04/2021 11:55:59 07/11/20 21 Lumbar Epidural steroid injection under fluoroscopic guidance completed Alf Posada MD [address] , [address], [place], [address], [place] [facility] 07/11/2021 13:35:45 04/11/20 21 Lumbar Epidural steroid injection under fluoroscopic guidance completed Alf Posada MD [address] , [address], [place], [address], [place] [facility] 04/11/2021 13:56:00 01/11/20 21 Lumbar Epidural steroid injection under fluoroscopic guidance completed Alf Posada MD [address] , [address], [place], [address], [place] [facility] 01/12/2021 09:57:53 09/06/20 20 Lumbar Epidural steroid injection under fluoroscopic guidance completed Alf Posada MD [address] , [address], [place], [address], [place] [facility] 09/08/2020 14:56:36 06/15/20 20 Lumbar Epidural steroid injection under fluoroscopic guidance completed Alf Posada MD [address] , [address], [place], [address], [place] [facility] 06/15/2020 14:00:13 05/23/20 20 Intra-articular shoulder steroid injection under ultrasound guidance completed Alf Posada MD [address] , [address], [place], [address], [place] [facility] 05/23/2020 15:11:49 05/11/20 19 Intra-articular shoulder steroid injection under ultrasound guidance completed Alf Posada MD [address] , [address], [place], [address], [place] [facility] 05/11/2019 09:43:25 03/31/20 19 Lumbar Epidural steroid injection under fluoroscopic guidance completed Alf Posada MD [address] , [address], [place], [address], [place] [facility] 03/31/2019 18:50:07 01/08/20 19 Fluoroscopic Guided Lumbar Facet Steroid Injections of levels completed Alf Posada MD [address] , [address], [place], [address], [place] [facility] 01/08/2019 15:03:53 09/17/20 17 Fluoroscopic Guided Lumbar Facet Steroid Injections of levels completed Alf Posada MD [address] , [address], [place], [address], [place] [facility] 09/17/2017 10:08:58 08/07/20 17 Fluoroscopic Guided Lumbar Facet Steroid Injections of levels completed Alf Posada MD [address] , [address], [place], [address], [place] [facility] 08/07/2017 10:36:11 05/08/20 17 Lumbar Epidural steroid injection under fluoroscopic guidance completed Alf Posada MD [address] [facility] , [address], [place], [address], [place] [facility] 05/08/2017 10:54:37 Joint Replacement completed Fayechris Sotoer [place] - [facility] 03/14/2017 14:36:04 Cholecystectomy completed Fayechris Sotoer [place] - [facility] 03/14/2017 14:36:22 Back Surgery completed Alf Posada MD [address] , [address], [place], [address], [place] [facility] 04/02/2017 [...] completed Not Available Not Available Not Available [employer] Ultra Test strips TESTS DAILY FOR DM, [...] completed Not Available Not Available Not Available Tamara Rajput Lancets 33 gauge USE LANCET ONCE [...] Not Available No t Available Fluzone High-Dose 8543-3395 (PF) 180 mcg/0.5 mL intramuscul ar syringe TO BE ADMINISTE RED BY PHARMACIS T FOR IMMUNIZAT ION 08/07 completed Not Available Not Available Not Available Fluzone High-Dose 3091-9990 (PF) 180 mcg/0.5 mL intramuscul ar syringe TO BE ADMINISTE RED BY PHARMACIS T FOR IMMUNIZAT ION 12/25 completed Not Available Not Available Not Available OneTouch Ultra2 Meter USE TO TEXT BLOOD GLUCOSE DAILY DIRECTED active Not Available Not Available No t Available Vitals Date Recorded Body height Heart rate Oxygen saturation Systolic And Diastolic Provider Name and Address Organization Details Last Updated DateTime 12/12/2021 160.02 cm 59 /min 97 % 133/80 mm[Hg] Tarah Young [place] [facility] 12/12/2021 11:40:59 Date Recorded Body height Body mass index (BMI) Body weight Heart rate Oxygen saturation Pain severity - 0-10 verbal numeric rating [Score] - Reported Systolic And Diastolic Provider Name and Address Organization Details Last Updated DateTime 160.02 cm 34.7 kg/m2 65343.1 g 58 /min 98 % 6 144/56 mm[Hg] Alf adams MD [address] [facility] , [address], [place], [address], [place] [facility] 15:24:19 Date Recorded Body height Heart rate Oxygen saturation Systolic And Diastolic Provider Name and Address Organization Details Last Updated DateTime 07/11/2021 160.02 cm 64 /min 97 % 112/51 mm[Hg] Tarah Young [place] [facility] 07/11/2021 13:11:29 Date Recorded Body height Heart rate Oxygen saturation Systolic And Diastolic Provider Name and Address Organization Details Last Updated DateTime 08/21/2022 160.02 cm 60 /min 97 % 149/58 mm[Hg] Ebony Guerra [place] - [facility] 08/21/2022 10:07:52 Date Recorded Body height Heart rate Oxygen saturation Pain severity - 0-10 verbal numeric rating [Score] - Reported Systolic And Diastolic Provider Name and Address Organization Details Last Updated DateTime 10/04/2021 160.02 cm 66 /min 97 % 10 126/53 mm[Hg] Ebony adams [place] - [facility] 10:58:34 Social History Question Answer Notes LastModified by Organizat ion Details LastModified Time Tobacco Smoking Status Former Smoker Quit x 20 years Not Available [facility] 07/22/2020 03:16:10 Which Illicit Or Recreational Drugs Have You Used? NO [id number] Information not available 07/22/2020 Education 12 With Some College Information not available 03/14/2017 Live Alone Or With Others? Alone Information not available 03/14/2017 Marital Status [email or web address] Informatio n not available 03/14/2017 What Was The Date Of Your Most Recent Tobacco Screening? 03/31/2019 [id number] Information not available 07/22/2020 How Many Years Have You Smoked Tobacco? 20 [id number] Information not available 07/22/2020 Sex: Unknown Functional Status Question Answer Note LastModified by Organization D etails LastModified Time What is your level of alcohol consumption? Moderate [id number] Information not available 07/22/2020 Are you currently employed? No [id number] Information not available 07/22/2020 Mental Status None [...] ICD10 Code Diagnosis IMO Codes Diagnosis Note [id number] Alf Posada MD PAIN OFFICE [address] [place] [address] 03/14/2017 13:22:16 03/14/2017 15:44:04 Spinal stenosis of lumbar region 52849413 M48.06 Lumbosacra l spondylosis without myelopathy 47252203 M47.817 Lumbosacra l radiculitis 86250645 M54.17 Displaceme nt of lumbar intervertebral disc without myelopathy 77633885 M51.26 38816 Alf Posada MD PAIN OFFICE [address] [place] [address] 05/08/2017 09:51:37 05/09/2017 14:08:37 Spinal stenosis of lumbar region 89572290 M48.06 Lumbosacra l spondylosis without myelopathy 44466342 M47.817 Lumbosacra l radiculitis 67791001 M54.17 Displaceme nt of lumbar intervertebral disc without myelopathy 72046737 M51.26 [id number] Alf Posada MD PAIN OFFICE [address] [facility] [place] [address] 06/14/2017 10:36:32 06/17/2017 09:50:43 Spinal stenosis of lumbar region 00459391 M48.06 Lumbosacra l spondylosis without myelopathy 27760285 M47.817 Lumbosacra l radiculitis 97694923 M54.17 Displaceme nt of lumbar intervertebral disc without myelopathy 13171159 M51.26 [id number] Alf Posada MD [facility] PAIN OFFICE [address] [facility] [place] [address] 08/07/2017 10:01:00 08/07/2017 15:19:24 Spinal stenosis of lumbar region 57169247 M48.062 Lumbosacra l spondylosis without myelopathy 83606191 M47.817 Lumbosacra l radiculitis 64723702 M54.17 Displaceme nt of lumbar intervertebral disc without myelopathy 55411393 M51.26 [id number] Alf Posada MD PAIN OFFICE [address] [facility] [place] [address] 09/05/2017 10:11:57 09/05/2017 19:46:07 Spinal stenosis of lumbar region 60812130 M48.062 Lumbosacra l spondylosis without myelopathy 09841029 M47.817 Lumbosacra l radiculitis 97875883 M54.17 Displaceme nt of lumbar intervertebral disc without myelopathy 44754188 M51.26 42314 Alf Posada MD PAIN OFFICE [address] [place] [address] 09/17/2017 09:13:54 09/19/2017 09:09:31 Spinal stenosis of lumbar region 75115973 M48.062 Lumbosacra l spondylosis without myelopathy 35232289 M47.817 Lumbosacra l radiculitis 66317569 M54.17 Displaceme nt of lumbar intervertebral disc without myelopathy 70871528 M51.26 31038 Alf Posada MD PAIN OFFICE [address] [facility] [place] [address] 12/25/2018 11:24:23 12/25/2018 16:12:18 Spinal stenosis of lumbar region 79021755 M48.061 Lumbosacra l spondylosis without myelopathy 01267481 M47.817 Lumbosacra l radiculitis 90153221 M54.17 Displaceme nt of lumbar intervertebral disc without myelopathy 55770629 M51.26 44073 Alf Posada MD PAIN OFFICE [address] [place] [address] 01/07/2019 09:10:35 01/08/2019 15:11:02 Spinal stenosis of lumbar region 11517515 M48.062 Lumbosacra l spondylosis without myelopathy 27712613 M47.817 Lumbosacra l radiculitis 02101811 M54.17 Displaceme nt of lumbar intervertebral disc without myelopathy 99009705 M51.26 52091 Alf Posada MD PAIN OFFICE [address] [facility] [place] [address] 02/04/2019 14:13:14 02/04/2019 16:10:53 Post-herpetic neuritis 578640557 B02.29 Spinal linda nosis of lumbar region 57007403 M48.061 Lumbosacra l spondylosis without myelopathy 01443490 M47.817 Lumbosacra l radiculitis 72466808 M54.17 Displaceme nt of lumbar intervertebral disc without myelopathy 89451725 M51.26 [id number] Alf Posada MD PAIN OFFICE [address] [facility] [place] [address] 03/31/2019 09:49:03 03/31/2019 18:56:55 Spinal stenosis of lumbar region 93305894 M48.061 Lumbosacra l spondylosis without myelopathy 78053405 M47.817 Lumbosacra l radiculitis 40235959 M54.17 Displaceme nt of lumbar intervertebral disc without myelopathy 57220047 M51.26 12772 Alf Posada MD PAIN OFFICE [address] [facility] [place] [address] 05/11/2019 08:51:59 05/11/2019 09:45:44 Inflammation of joint of shoulder region 753421465 M13.819 Spinal linda nosis of lumbar region 61890605 M48.061 [id number] Alf Posada MD PAIN OFFICE [address] [facility] [place] [address] 12/14/2019 13:40:03 12/14/2019 16:14:01 Spinal stenosis of lumbar region 92131560 M48.061 Lumbosacra l spondylosis without myelopathy 85003371 M47.817 Lumbosacra l radiculitis 24371693 M54.17 Displaceme nt of lumbar intervertebral disc without myelopathy 33222825 M51.26 11498 Alf Posada MD PAIN OFFICE [address] [place] [address] 02/12/2020 11:36:11 02/15/2020 12:09:29 Spinal stenosis of lumbar region 48080393 M48.061 Lumbosacra l spondylosis without myelopathy 84854542 M47.817 Lumbosacra l radiculitis 23208165 M54.17 Displaceme nt of lumbar intervertebral disc without myelopathy 23689498 M51.26 84852 Alf Posada MD PAIN OFFICE [address] [place] [address] 05/13/2020 08:29:14 05/13/2020 09:22:37 Inflammation of joint of shoulder region 657555764 M13.819 Spinal linda nosis of lumbar region 95959134 M48.061 [id number] Alf Posada MD PAIN OFFICE [address] [place] [address] 05/23/2020 12:46:33 05/23/2020 15:14:52 Inflammation of joint of shoulder region 246915702 M13.819 Spinal linda nosis of lumbar region 86976228 M48.061 75989 Alf Posada MD PAIN OFFICE [address] [place] [address] 06/15/2020 10:54:32 06/15/2020 14:04:50 Inflammation of joint of shoulder region 472456763 M13.819 Spinal linda nosis of lumbar region 51408542 M48.061 Lumbosacra l spondylosis without myelopathy 33162717 M47.817 Lumbosacra l radiculitis 73730470 M54.17 Displaceme nt of lumbar intervertebral disc without myelopathy 52094076 M51.26 [id number] Alf Posada MD PAIN OFFICE [address] [place] [address] 07/13/2020 08:30:09 07/13/2020 11:05:07 Inflammation of joint of shoulder region 532179693 M13.819 Spinal linda nosis of lumbar region 24960737 M48.061 40520 lAf Posada MD PAIN OFFICE [address] [place] [address] 09/06/2020 10:30:56 09/08/2020 15:55:16 Inflammation of joint of shoulder region 941407359 M13.819 Spinal linda nosis of lumbar region 21727445 M48.061 Lumbosacra l spondylosis without myelopathy 79152580 M47.817 Lumbosacra l radiculitis 38247102 M54.17 Displaceme nt of lumbar intervertebral disc without myelopathy 58433493 M51.26 11387 Alf Posada MD PAIN OFFICE [address] [place] [address] 11/07/2020 08:59:33 11/07/2020 09:55:18 Spinal stenosis of lumbar region 23404878 M48.061 Lumbosacra l spondylosis without myelopathy 90073104 M47.817 Lumbosacra l radiculitis 07861502 M54.17 Displaceme nt of lumbar intervertebral disc without myelopathy 39928543 M51.26 [id number] Alf Posada MD PAIN OFFICE [address] [place] [address] 01/10/2021 13:47:25 01/12/2021 10:00:57 Inflammation of joint of shoulder region 513034398 M13.819 Spinal linda nosis of lumbar region 98849468 M48.061 Lumbosacra l spondylosis without myelopathy 34650513 M47.817 Lumbosacra l radiculitis 71942759 M54.17 Displaceme nt of lumbar intervertebral disc without myelopathy 55494155 M51.26 18278 Alf Posada MD PAIN OFFICE [address] [place] [address] 02/16/2021 08:44:41 02/16/2021 10:52:14 Spinal stenosis of lumbar region 51518738 M48.061 Lumbosacra l spondylosis without myelopathy 37247082 M47.817 Lumbosacra l radiculitis 98706891 M54.17 Displaceme nt of lumbar intervertebral disc without myelopathy 43263979 M51.26 [id number] Alf Posada MD PAIN OFFICE [address] [place] [address] 04/11/2021 13:21:59 04/11/2021 14:01:08 Spinal stenosis of lumbar region 59526864 M48.061 Inflammati on of joint of shoulder region 013425431 M13.819 Lumbosacra l spondylosis without myelopathy 42242230 M47.817 Lumbosacra l radiculitis 84801187 M54.17 Displaceme nt of lumbar intervertebral disc without myelopathy 40298766 M51.26 [id number] Alf Posada MD PAIN OFFICE [address] [place] [address] 06/26/2021 15:22:32 06/30/2021 10:03:11 Spinal stenosis of lumbar region 93878552 M48.061 Lumbosacra l spondylosis without myelopathy 39461576 M47.817 Lumbosacra l radiculitis 99703250 M54.17 Displaceme nt of lumbar intervertebral disc without myelopathy 75850118 M51.26 63995 Alf Posada MD PAIN OFFICE [address] [place] [address] 07/11/2021 12:54:52 07/11/2021 13:38:15 Spinal stenosis of lumbar region 36867201 M48.061 Inflammati on of joint of shoulder region 925361064 M13.819 Lumbosacra l spondylosis without myelopathy 66106443 M47.817 Lumbosacra l radiculitis 64857521 M54.17 Displaceme nt of lumbar intervertebral disc without myelopathy 07333254 M51.26 [id number] Alf Posada MD PAIN OFFICE [address] [place] [address] 10/04/2021 10:46:49 10/04/2021 12:00:47 Spinal stenosis of lumbar region 01418764 M48.061 Inflammati on of joint of shoulder region 447675619 M13.819 Lumbosacra l spondylosis without myelopathy 19850378 M47.817 Lumbosacra l radiculitis 26904804 M54.17 Displaceme nt of lumbar intervertebral disc without myelopathy 55249625 M51.26 23414 Alf Posada MD PAIN OFFICE [address] [place] [address] 12/12/2021 11:17:23 12/12/2021 14:28:00 Spinal stenosis of lumbar region 33894517 M48.061 Inflammati on of joint of shoulder region 007200769 M13.819 Lumbosacra l spondylosis without myelopathy 72817328 M47.817 Lumbosacra l radiculitis 42682255 M54.17 Displaceme nt of lumbar intervertebral disc without myelopathy 46008185 M51.26 41449 Alf Posada MD PAIN OFFICE [address] [place] [address] 08/21/2022 10:05:44 08/21/2022 11:05:40 Spinal stenosis of lumbar region 58755055 M48.061 Inflammati on of joint of shoulder region 456317278 M13.819 Lumbosacra l spondylosis without myelopathy 95965475 M47.817 Lumbosacra l radiculitis 29510848 M54.17 Displaceme nt of lumbar intervertebral disc without myelopathy 27483450 M51.26 Degenerati on of lumbar intervertebral disc 60244652 M51.36 Health Concerns Section Related Observation LastModified by Organization Detai ls LastModified Time None Recorded Concern Status LastModified by Organization Details LastModified Time None Recorded Advance Directives Directive None Recorded Payers Insurance Date Sequence Insurance Name Policy Number Policy Anders Covered Member ID Anders Member ID Guarantor Name 12/15/2022 1 [place] [employer] Shreya M Gravel [id number] Shreya Gravel 12/15/2022 2 [place] [id number] Shreya Gravel [id number] Shreya Calvert Notes Date Note Type [...] or bowel incontinence. Alf Posada MD [address] [facility] , [address], [place], [address], [place] [facility] 07/10/2021 08:52:57 07/11/2021 text/html She is here for a lumbar epidural steroid injection under fluoroscopic guidance. Alf Posada MD [address] [facility] , [address], [place], [address], [place] [facility] 07/12/2021 09:01:37 10/04/2021 text/html She is here for a lumbar epidural steroid injection under fluoroscopic guidance. Alf Posada MD [address] [facility] , [address], [place], [address], [place] - [facility] 10/04/2021 12:48:56 12/12/2021 text/html She is here for a lumbar epidural steroid injection under fluoroscopic guidance. Alf Posada MD [address] [facility] , [address], [place], [address], [place] [facility] 12/12/2021 16:13:18 08/21/2022 text/html She is here for a lumbar epidural steroid injection under fluoroscopic guidance. She has stopped eliquis and pletal as instructed for the procedure. Alf Posada MD [address] [facility] , [address], [place], [address], [place] [facility] 08/22/2022 08:44:58 OBGyn Episode No OBEpisode recorded.
--- OUTSIDE RECORDS SUMMARY | 2025-09-16 06:41 | XMS_ITS | Data Portability ---
Author Organization [facility], Main Office Address [address] [place] [address] Care Team Providers Care Laser Machine Operator Name Role Phone DARRIN STYLES 3RD [...] and Address Organization Details Recorded Time Cystitis 90924274 Active 2023 FRIEDA ANDERSON [address] [facility], [address], [place], [address], [facility] 4 14:00:02 Falls 362772402 Active 2023 FRIEDA ANDERSON [address] [facility], [address], [place], [address], [facility] [employer] 4 14:00:38 Pain of right wrist 7389647402883 00 Active 2023 FRIEDA ANDERSON [address] , [address], [place], [address], [facility] [employer] 4 14:00:56 Peripheral venous insufficien cy 49320591 Active 2023 CARLTON MINA, [employer] CONSOLE OPERATOR [address], [address], [place], [address], [place] [facility] 4 14:01:26 Chronic diastolic heart failure 526626828 Active 2023 CARLTON MINA, SERVICE [employer]ATION CONSOLE OPERATOR [address], [address], [place], [address], [place] [facility] 4 14:01:46 Type 2 diabetes mellitus 84468104 Active 2023 CARLTON MINA, [facility] [address], [address], [place], [address], [place] [facility] 4 14:01:55 Paroxysmal atrial flutter 197842354 Active 2023 PM ANDERSONP [address], [address], [place], [address], [place] [facility] 4 14:02:21 Restless legs syndrome 27989497 Active 2023 MP ANDERSONP [address], [address], [place], [address], [place] [facility] 4 14:02:38 Chronic obstructive pulmonary disease 57809087 Active 2023 FRIEDA ANDERSON [address], [address], [place], [address], [place] [facility] 4 14:02:49 Anemia of chronic disease 472621372 Active 2023 FRIEDA ANDERSON [address], [address], [place], [address], [place] [facility] 4 14:02:59 Mixed anxiety and depressive disorder 805931040 Active 2023 CARLTON MINA, SERVICE [employer]ATION CONSOLE OPERATOR [address], [address], [place], [address], [place] - [facility] 4 14:17:43 Chronic kidney disease 053633317 Active 2023 MP ANDERSONP [address], [address], [place], [address], [place] [facility] 4 14:19:41 Hyperlipide nena 70191440 Active 2023 FRIEDA ANDERSON [address], [address], [place], [address], [facility] 4 14:26:52 Gastroesoph ageal reflux disease 467227442 Active 2023 FRIEDA ANDERSON [address], [address], [place], [address], [facility] 4 14:27:49 Chronic back pain 833348001 Active 2023 FRIEDA ANDERSON [address], [address], [place], [address], [facility] 4 14:40:47 Vitamin D deficiency 06082420 Active 2023 FRIEDA ANDERSON [address], [address], [place], [address], [facility] 4 19:41:46 Bradycardia 14618271 Active 2023 FRIEDA ANDERSON [address], [address], [place], [address], [facility] 4 19:44:32 Asthenia 60221391 Active 2023 FRIEDA ANDERSON [address], [address], [place], [address], [facility] 4 19:53:05 Bleeding from nose 162718002 Active 2023 FRIEDA ANDERSON [address], [address], [place], [address], [facility] 4 15:36:07 Osteomyelit is 64699418 Active 2023 Naomi Todd MD [address], [address], [place], [address], [facility] 4 17:53:51 Headache 45670724 Active 2023 WISAM SILVA NP [address], [address], [place], [address], [place] [facility] 4 09:49:14 Essential hypertensio n 49775855 Active 2024 Rex Bass MD [address] [place] [address], [address], [place], [address], [facility] [employer] 5 09:46:16 Problem Notes None recorded. Medical Equipment None Reported. Allergies Allergen ID Allergen Name Allergen Category Reaction Reaction Severity Criticality Documentation Date Start Date Code Code System Note Provider Name and Address Organization Details Recorded Time 98065 lisinopri l medicatio n Not available Not available Not available 10/22/2023 30977 RxNorm Naomi Todd MD [address] [place] [address], [facility] [address], [place], [address], [facility] 4 17:53:46 Medications Name Sig Start Date [...] 165.1 cm 129/73 mm[Hg] Rex Bass MD [address] [place] [address], [address], [place], [address], [facility] 11/25/2024 11:53:24 Date Recorded Body height Body temperature Heart rate Respiratory rate Systolic And Diastolic Provider Name and Address Organization Details Last Updated DateTime 5 165.1 cm 97.4 [degF] 84 /min 18 /min 142/70 mm[Hg] Rex Bass MD [address] [place] [address], [address], [place], [address], [facility] 5 09:39:14 Date Recorded Body height Body temperature Respiratory rate Oxygen saturation Systolic And Diastolic Provider Name and Address Organization Details Last Updated DateTime 5 165.1 cm 97.9 [degF] 18 /min 97 % 130/70 mm[Hg] FRIEDA ANDERSON [address] [facility], [address], [place], [address], [facility] 18:58:17 Social History Question Answer Notes LastModified by Organizat ion Details LastModified Time Tobacco Smoking Status Former Smoker quit 30 yrs ago FRIEDA ANDERSON [address] , [address], [place], [address], [facility] 10/24/2023 14:39:11 Do You Have An Advance Directive? Yes Information not available 10/24/2023 What Is Your Level Of Caffeine Consumption? Occasional Information not available 10/24/2023 What Is Your Code Status? DNR/DNI Information not available 10/24/2023 [facility], Had Been Living At [facility] Information not available 04/13/2024 Legal Guardian? No Informati on not available 10/24/2023 Do You Have A Medical Power Of Real Estate Loan Processor? Yes Information not available 10/24/2023 What Was [...] Recorded Time Tdap 2 completed Flor Luna [facility] 12/27/2023 11:11:29 Pneumococcal conjugate PCV 13 7 completed Flor Luna [facility] 12/27/2023 11:11:41 Influenza, adjuvanted, quadrivalent, PF 3 completed Flor Luna [facility] 12/27/2023 11:11:59 COVID-19, mRNA, LNP-S, bivalent, PF, 30 mcg/0.3 mL dose 1 completed Florgwen Luna [facility] 12/27/2023 11:12:12 COVID-19, mRNA, LNP-S, bivalent, PF, 30 mcg/0.3 mL dose 1 completed Flor Jeremy [facility] 12/27/2023 11:12:20 COVID-19, mRNA, LNP-S, bivalent, PF, 30 mcg/0.3 mL dose 1 completed Florgwen Luna [facility] 12/27/2023 11:12:29 COVID-19, mRNA, LNP-S, bivalent, PF, 30 mcg/0.3 mL dose 2 completed Flor Jeremy [facility] 12/27/2023 11:12:48 Past Encounters Encounter ID Performer Location Encounter Start Date Encounter Closed Date Diagnosis/Indication Diagnosis SNOMED-CT Code Diagnosis ICD10 Code Diagnosis IMO Codes Diagnosis Note [id number] FRIEDA ANDERSON [address] [facility] [place] [address] 10/23/2023 08:21:08 10/28/2023 15:39:59 Cystitis 47277593 N30.90 With MDROInitia lly with Vanco and cefepime however cultures growing MDRO Klebsiella Started meropenem 1 g q12 for 7 days.start ed 10/19 for 7 full days of treatment to end 10/26.probi otic added Falls 937718696 R29.6 likely multifacto rial from neuropathy , frailty, arthritis and LE edemaCT negative for any fractures. CT Head/Brain W/O Contrast negativeIn itiated safety precaution per facility protocolPT /OT eval and tx. Peripheral venous insufficiency 38454492 I87.2 Venous insufficie ncy of both lower extremitie sDoppler LLE no DVT, symmetric erythema without increased warmth or tenderness , appears similar to previous picture taken, low suspicion for superimpos ed cellulitis Chronic di astolic heart failure 433843420 I50.32 preserved EFeuvolemi ctorsemide held in acute care d/t hypotensio n and bradycardi c 50'smonito r BP and need to restartmon itor weights Chronic ob structive pulmonary disease 45151688 J44.9 Albuterol Sulfate Nebulizati on Solution (2.5 MG/3ML) Q6 prnAdvair Bvesai365- 50 mcg Q12 Restless l egs syndrome 31489254 G25.81 ROPINIRole HCl Tablet 2 MG BID Type 2 jr betes mellitus 03068023 E11.21 continue monitor glucose,Li spro SSI coverageGa bapentin Capsule 300 MG at bedtime for neuropathy pain.trama dol 25 mg q12 prn Paroxysmal atrial flutter 902291374 I48.92 not on anticoagAm iodarone HCl Tablet 200 MG dailymonit or HR Mixed anxi ety and depressive disorder 450585731 F41.8 Escitalopr am Oxalate Tablet 30 mg dailymonit or for mood and behavorial changes. Anemia of chronic disease 618958663 D63.8 Ferrous Sulfate Tablet 325 dailymonit or labs prn Hyperlipidemia 28234116 E78.5 Atorvastat in 20 mg dailymonit or labs Gastroesop hageal reflux disease 718836076 K21.9 Pantoprazo le40 mg dailymonit or for gi upset. Chronic back pain 994917 002 G89.29 tramadol 25 mg Q12 prngabapen tin 300 mg at hs Vitamin D deficiency 347 57267 E55.9 Cholecalci ferol 2000 UNIT daily Pain of right wrist 3169 388840 48973 M25.531 x-ray was ordered which was negative.P T/OT eval and tx Bradycardia 45719744 R00 .1 in acute care HR as low as 40snormal SC/QRS/QTc prolongati on..T nonspecifi c isolated T wave inversions on single lead V2 were present on recent study from 07/19/2023 . No evidence of acute ischemic changes. Chronic ki dney disease 726484924 N18.9 Renal function is at baselinemo nitor labsavoid nephrotoxi c drugs Asthenia 29759893 R53.1 hx of multiple fallsambul ates with walkerPT/O T eval and treat [id number] Naomi Todd MD [address] [place] [address] 10/24/2023 16:17:28 11/06/2023 11:12:59 Cystitis 21123323 N30.00 Continue meropenem 1 g q 12 hrs to complete 7 d course on 10/26.Monit or for recurrent sxs. Falls 000835608 R29.6 Likely multifacto rial from neuropathy , frailty, arthritis and LE edemaVery deconditio christoph.Needs PT/OT for strengthen ing, balance, gait training, safety and function.C ontinue fall precaution s.Monitor for safety. Peripheral venous insufficiency 53131869 I87.2 Almost at baseline per pt.Continu e local care and elevation. Chronic di astolic heart failure 650235938 I50.32 Appears euvolemic. Monitor for need for diuretics. Monitor resp. status, fluid status, wts and labs. Chronic ob structive pulmonary disease 59537752 J43.8 No current sxs.Contin ue Advair 250/50 BID and albuterol nebs q 6 hrs prnMonitor resp status. Restless l egs syndrome 31552630 G25.81 Continue ropinirole 2 mg BIDMonitor sxs. Type 2 jr betes mellitus 74603443 E11.21 Diet controlled .Sugar <150 yest, not checked previously .Continue gabapentin 300 MG qhs and tramadol q 12 hrs prn for neuropathy Monitor fingerstic ks BID x 1 wk with SSI, d/c if not needing coverage. Paroxysmal atrial flutter 731782938 I48.92 Rate in good control on amiodarone 200 mg qdNot on AC due to age and fall riskMonito r HR Mixed anxi ety and depressive disorder 311006999 F41.8 Mood down today due to concerns about living situation. Continue escitalopr am 30 mg qdMonitor mood.Consu lt psych prn Anemia of chronic disease 532788214 D63.8 Continue FeSO4 325 mg qd with vitamin C 250 mg qd for absorption .Monitor labs Hyperlipidemia 77908057 E78.49 Continue atorvastat in 20 mg qdMonitor labs yearly Gastroesop hageal reflux disease 286170185 K21.9 No current sxs.Contin ue pantoprazo le 40 mg qdMonitor sxs Chronic ki dney disease 914786156 N18.9 In hx, but renal function WNL yest.Cindy nue to avoid nephrotoxi c meds as able.Monit or labs.Renal consult prn. Chronic back pain 190227 002 G89.29 Continue tramadol 25 mg q 12 hrs prn and gabapentin 300 mg qhsMonitor sxs. [id number] FRIEDA ANDERSON [address] [facility] [address] [place] [address] 10/29/2023 07:42:54 11/01/2023 08:26:34 Cystitis 67299640 N30.90 With MDROInitia lly with Vanco and cefepime however cultures growing MDRO Klebsiella Started meropenem 1 g q12 for 7 days.start ed 10/19 for 7 full days of treatment to end 10/26.- completed denies any dysuriapro biotic added Falls 811690209 R29.6 continue to work with PT/OT for strengthen inglikely multifacto rial from neuropathy , frailty, arthritis and LE edemaCT negative for any fractures. CT Head/Brain W/O Contrast negativeIn itiated safety precaution per facility protocol Peripheral venous insufficiency 19119633 I87.2 BLE edema left greater than right Venous insufficie ncy of both lower extremitie sDoppler LLE no DVT, symmetric erythema without increased warmth or tenderness , appears similar to previous picture taken, low suspicion for superimpos ed cellulitis Chronic di astolic heart failure 626708855 I50.32 preserved EFeuvolemi ctorsemide held in acute care d/t hypotensio n and bradycardi c 50'smonito r BP and need to restartmon itor weights Chronic ob structive pulmonary disease 95499285 J44.9 Albuterol Sulfate Nebulizati on Solution (2.5 MG/3ML) Q6 prnAdvair Nrfnyq453- 50 mcg Q12 Restless l egs syndrome 22778014 G25.81 ROPINIRole HCl Tablet 2 MG BID Type 2 jr betes mellitus 82133567 E11.21 continue monitor glucose,Li spro SSI coverageGa bapentin Capsule 300 MG at bedtime for neuropathy pain.trama dol 25 mg q12 prn Paroxysmal atrial flutter 503197200 I48.92 not on anticoagAm iodarone HCl Tablet 200 MG dailymonit or HR Mixed anxi ety and depressive disorder 457281754 F41.8 Escitalopr am Oxalate Tablet 30 mg dailymonit or for mood and behavorial changes. Anemia of chronic disease 824356382 D63.8 Ferrous Sulfate Tablet 325 dailymonit or labs prn Hyperlipidemia 04793941 E78.5 Atorvastat in 20 mg dailymonit or labs Gastroesop hageal reflux disease 569615739 K21.9 Pantoprazo le40 mg dailymonit or for gi upset. Chronic back pain 302259 002 G89.29 tramadol 25 mg Q12 prngabapen tin 300 mg at hs Vitamin D deficiency 347 44964 E55.9 Cholecalci ferol 2000 UNIT daily Pain of right wrist 3169 433470 43026 M25.531 x-ray was ordered which was negative.P T/OT eval and tx Bradycardia 44832694 R00 .1 in acute care HR as low as 40snormal SC/QRS/QTc prolongati on..T nonspecifi c isolated T wave inversions on single lead V2 were present on recent study from 07/19/2023 . No evidence of acute ischemic changes. Chronic ki dney disease 308876795 N18.9 Renal function is at baselinemo nitor labsavoid nephrotoxi c drugs Asthenia 48554348 R53.1 hx of multiple fallsambul ates with walkerPT/O T eval and treat [id number] FRIEDA ANDERSON [address] [place] [address] rd [place] [address] 11/01/2023 08:04:11 11/06/2023 11:37:03 Cystitis 98448830 N30.90 With MDROInitia lly with Vanco and cefepime however cultures growing MDRO Klebsiella Started meropenem 1 g q12 for 7 days.start ed 10/19 for 7 full days of treatment to end 10/26.- completed denies any dysuriapro biotic added Pruritus of vagina 36916 003 L29.3 Reports vaginal itchiness for over [...] BID for 7 days and re eval. [id number] FRIEDA ANDERSON [address] [address] 11/04/2023 12:13:42 11/06/2023 12:50:39 Falls 314931329 R29.6 see/HPiwit nessed fallwith injury/lac eration above left eye.no LOC Facial laceration 362571 008 S01.81XA above left eye/about 2 cm in lengthblee ding controlled , wrapped in gauze dressing. [id number] FRIEDA ANDERSON [address] [address] 11/06/2023 09:19:58 11/13/2023 12:17:34 Falls 972806302 R29.6 see/HPiwit nessed fallwith injury/lac eration above left eye.no LOCContinu e PT/OT Facial laceration 404148 008 S01.81XA above left eye/about 2 cm in lengthappe ars to be about 10-12 small dissolvabl e sutures in placedenie s any visual changes or headache.n ursing to monitor healing Pruritus of vagina 47758 003 L29.3 Reports vaginal itchiness for over [...] days and re eval. Chronic back pain 668416 002 G89.29 denies any new discomfort post falltramad ol 25 mg Q12 prngabapen tin 300 mg at hs Asthenia 95738076 R53.1 hx of multiple fallsambul ates with walkerPT/O T continue [id number] FRIEDA ANDERSON [address] [address] 11/08/2023 13:54:21 11/13/2023 13:10:32 Falls 220446113 R29.6 on 11/04/23wit nessed fallwith injury/lac eration above left eye.no LOCContinu e PT/OT Facial laceration 081418 008 S01.81XA above left eye/about 2 cm in lengthappe ars to be about 10-12 small di-solvabl e sutures in placedenie s any visual changes or headache.n ursing to monitor healing Pruritus of vagina 20177 003 L29.3 Reports vaginal itchiness for over [...] assure med is applied. Chronic back pain 847566 002 G89.29 denies any new discomfort post falltramad ol 25 mg Q12 prngabapen tin 300 mg at hs Asthenia 92383219 R53.1 hx of multiple fallsambul ates with walkerPT/O T continue [id number] FRIEDA ANDERSON [address] [address] 11/13/2023 10:59:21 11/15/2023 09:29:54 Falls 194925399 R29.6 on 11/04/23wit nessed fallwith injury/lac eration above left eye.no LOCContinu e PT/OT Facial laceration 448327 008 S01.81XA healingabo ve left eye/about 2 cm in lengthappe ars to be about 10-12 small di-solvabl e sutures in placedenie s any visual changes or headache.n ursing to monitor healing Pruritus of vagina 70600 003 L29.3 improving, continues with triamcinol one topical cream BID Chronic back pain 634018 002 G89.29 denies any new discomfort post falltramad ol 25 mg Q12 prngabapen tin 300 mg at hs Asthenia 69672003 R53.1 hx of multiple fallsambul ates with walkerPT/O T continues [id number] FRIEDA ANDERSON [address] [address] 11/18/2023 07:58:48 11/21/2023 13:26:13 Falls 950580082 R29.6 on 11/04/23wit nessed fallwith injury/lac eration above left eye.no LOCContinu e PT/OT Facial laceration 963572 008 S0.81XA healingabo ve left eye/about 2 cm in lengthappe ars to be about 10-12 small di-solvabl e sutures in placedenie s any visual changes or headache.n ursing to monitor healing Pruritus of vagina 53313 003 L29.3 improving, continues with triamcinol one topical cream BID Chronic back pain 314288 002 G89.29 denies any new discomfort post falltramad ol 25 mg Q12 prngabapen tin 300 mg at hs Asthenia 86617192 R53.1 hx of multiple fallsambul ates with walkerPT/O T continues [id number] FRIEDA ANDERSON [address] [address] 11/21/2023 13:49:57 11/25/2023 12:31:48 Falls 802696056 R29.6 on 11/04/23wit nessed fallwith injury/lac eration above left eye.no LOCContinu e PT/OT Facial laceration 910878 008 S01.81XA 11/04 s/p fall for laceration above left eye.healin g no s/sx of infectiona rolan left eye/about 2 cm in lengthappe ars to be about 10-12 small di-solvabl e sutures in placedenie s any visual changes or headache.n ursing to monitor healing Pruritus of vagina 92465 003 L29.3 improving, continues with triamcinol one topical cream BID Chronic back pain 806485 002 G89.29 denies any new discomfort post falltramad ol 25 mg Q12 prngabapen tin 300 mg at hs Asthenia 11298085 R53.1 hx of multiple fallsambul ates with walkerPT/O T continues [id number] CARLTON MINA [address] [address] 11/26/2023 07:45:18 11/28/2023 10:55:36 Falls 183645920 R29.6 on 11/04/23wit nessed fallwith injury/lac eration above left eye.no LOCContinu e PT/OT Facial laceration 904033 008 S01.81XA 11/04 s/p fall for laceration above left eye.healin g no s/sx of infectiona rolan left eye/about 2 cm in lengthappe ars to be about 10-12 small di-solvabl e sutures in placedenie s any visual changes or headache.n ursing to monitor healing Pruritus of vagina 92823 003 L29.3 triamcinol one topical cream BIDkeep area clean and dry. Chronic back pain 882408 002 G89.29 tramadol 25 mg Q12 prngabapen tin 300 mg at hs Asthenia 10090904 R53.1 hx of multiple fallsambul ates with walkerPT/O T continues [id number] FRIEDA ANDERSON [address] [address] 11/29/2023 08:06:37 12/03/2023 11:20:10 Falls 502698457 R29.6 on 11/04/23wit nessed fallwith injury/lac eration above left eye.no LOCContinu e PT/OT Facial laceration 589128 008 S01.81XA healed11/04 s/p fall for laceration above left eye.above left eye/about 2 cm in lengthdeni es any visual changes or headache. Pruritus of vagina 74372 003 L29.3 triamcinol one topical cream BIDkeep area clean and dry. Chronic back pain 465072 002 G89.29 tramadol 25 mg Q12 prngabapen tin 300 mg at hs Asthenia 65552346 R53.1 hx of multiple fallsambul ates with walkerPT/O T continues [id number] FRIEDA ANDERSON [address] [address] 12/04/2023 07:53:49 12/10/2023 10:21:37 Falls 129142080 R29.6 on 11/04/23wit nessed fallwith injury/lac eration above left eye.no LOCContinu e PT/OT Facial laceration 415520 008 S01.81XA healed11/04 s/p fall for laceration above left eye.above left eye/about 2 cm in lengthdeni es any visual changes or headache. Pruritus of vagina 12757 003 L29.3 triamcinol one topical cream BIDkeep area clean and dry. Chronic back pain 661256 002 G89.29 tramadol 25 mg Q12 prngabapen tin 300 mg at hs Asthenia 37012435 R53.1 hx of multiple fallsambul ates with walkerPT/O T continues Cellulitis of right lower limb 6381382679 6214210 L03.115 see hpistarted keflex on 11/30/23 for 7 days with probiotic for 10 daysencour aged to elevated lower extremitie s to elevate edemamonit or for resolution [id number] FRIEDA ANDERSON [address] [address] 12/11/2023 10:06:59 12/13/2023 13:01:47 Falls 101623576 R29.6 no recent falls reported Facial laceration 881688 008 S01.81XA healed11/04 s/p fall for laceration above left eye.above left eye/about 2 cm in lengthdeni es any visual changes or headache. Pruritus of vagina 73036 003 L29.3 triamcinol one topical cream BIDkeep area clean and dry. Chronic back pain 356955 002 G89.29 tramadol 25 mg Q12 prngabapen tin 300 mg at hs Cellulitis of right lower limb 6341704265 3215550 L03.115 resolved. [id number] FRIEDA ANDERSON [address] [address] 12/18/2023 09:20:38 12/20/2023 14:10:33 Chronic diastolic heart failure 615466131 I50.32 preserved EFeuvolemi ctorsemide held in acute care d/t hypotensio n and bradycardi c 50'smonito r BP and need to restartmon itor weights Mixed anxi ety and depressive disorder 867951152 F41.8 stable and pleasantEs citalopram Oxalate Tablet 30 mg dailymonit or for mood and behavorial changes. Type 2 jr betes mellitus 72024758 E11.21 continue monitor glucose,Li spro SSI coverageGa bapentin Capsule 300 MG at bedtime for neuropathy pain.trama dol 25 mg q12 prn [id number] FRIEDA ANDERSON [address] [address] 12/25/2023 11:16:29 12/30/2023 16:09:32 Chronic diastolic heart failure 123976895 I50.32 preserved EFBLE +1was on torsemide but was d/c in acute caremonito r weights- [facility] Mixed anxi ety and depressive disorder 202624996 F41.8 stable and pleasantEs citalopram Oxalate Tablet 30 mg dailymonit or for mood and behavorial changes. Type 2 jr betes mellitus 22515637 E11.21 continue monitor glucose,Li spro SSI coverageGa bapentin Capsule 300 MG at bedtime for neuropathy pain.trama dol 25 mg q12 prn [id number] Naomi Todd MD [address] [address] 12/26/2023 19:19:22 01/31/2024 14:21:17 Cystitis 38945727 N30.00 Completed course of meropenem 1 g q 12 hrs on 10/26.Monit or for recurrent sxs. Falls 592070121 R29.6 Continues to be a high fall risk and needs CG and sometimes an assist for transfers. No longer getting acute PT/OT services, restart as able.Cindy nue fall precaution s.Monitor for safety. Peripheral venous insufficiency 27907217 I87.2 No current sxs.Contin ue local care and elevation. Chronic di astolic heart failure 293989333 I50.32 Appears euvolemic. Monitor for need for diuretics. Monitor resp. status, fluid status, wts and labs. Chronic ob structive pulmonary disease 42973400 J43.8 Continues with no sxs.Contin ue Advair 250/50 BID and albuterol nebs q 6 hrs prnMonitor resp status. Type 2 jr betes mellitus 37718080 E11.21 Sugars were all <150 when checked for 3 days.Cindy nue gabapentin 300 MG qhs and tramadol q 12 hrs prn for neuropathy Monitor fingerstic ks prn and HgA1C q 3-6 months Paroxysmal atrial flutter [id number] I48.92 Rate remains in good control on amiodarone 200 mg qdNo AC due to age and fall riskMonito r HR Restless l egs syndrome 94866850 G25.81 Continue ropinirole 2 mg BIDMonitor sxs. Mixed anxi ety and depressive disorder 563981628 F41.8 Mood stableCont inue escitalopr am 30 mg qdMonitor mood.Consu lt psych prn Anemia of chronic disease 637043337 D63.8 Hgb has been stable.Con tinue FeSO4 325 mg qd with vitamin C 250 mg qd for absorption .Monitor labs Hyperlipidemia 34381214 E78.49 Continue atorvastat in 20 mg qdMonitor labs yearly Gastroesop hageal reflux disease 890750891 K21.9 No current sxs.Contin ue pantoprazo le 40 mg qdMonitor sxs Chronic ki dney disease 059980208 N18.1 Renal function remains WNLContinu e to avoid nephrotoxi c meds as able.Monit or labs.Renal consult prn. Chronic back pain 818765 002 G89.29 Continue tramadol 25 mg q 12 hrs prn and gabapentin 300 mg qhsMonitor sxs. [id number] FRIEDA ANDERSON [address] [place] [address] [place] [address] 01/01/2024 08:18:43 01/06/2024 15:39:22 Chronic diastolic heart failure 803686380 I50.32 preserved EFBLE +1was on torsemide but was d/c in acute caremonito r weights- [facility] to [facility] Mixed anxi ety and depressive disorder 417748928 F41.8 stable and pleasantEs citalopram Oxalate Tablet 30 mg dailymonit or for mood and behavorial changes. Type 2 jr betes mellitus 55331071 E11.21 continue monitor glucose,Li spro SSI coverageGa bapentin Capsule 300 MG at bedtime for neuropathy pain.trama dol 25 mg q12 prn Spasm 06036737 R25.2 12/31/23 nursing reported pt was having left upper leg/buttoc k pain/spasm tramadol changed from q12 to q6 and robaxin 500 mg q 6 prn addedtoday pt states that medication was effectivew ill monitor for worsening sx [id number] FRIEDA ANDERSON [address] [address] 01/08/2024 13:26:41 01/10/2024 11:20:05 Chronic diastolic heart failure 783946319 I50.32 no weight gain notedconti nue furosemide 10 mg dailymonit or labs , weightsmon itor for cardiopulm onary sx 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 Type 2 jr betes mellitus 60501364 E11.21 continue monitor glucose,co ntinue Lispro SSI coverageco ntinue Gabapentin Capsule 300 MG at bedtime for neuropathy pain.cindy nue tramadol 50 mg q 8 prn Spasm 77490700 R25.2 to LLE and glutealpai n has improvedRo baxin 500 mg discontinu e -it was ordered for short term use onlycontin ue tramadol 50 mg prn [id number] FRIEDA ANDERSON [address] [address] 01/15/2024 09:55:29 01/27/2024 16:00:52 Cervical radiculopathy 14669387 M54.12 start diclofenac gel daily and q8 prncontinu e tramadol 50 mg Q6 prncontinu e gabapentin 300 mg at hs add 300 mg QDrefer to physical therapy for eval and tx [id number] CARLTON [place]A, [address] [address] 01/22/2024 09:25:19 01/28/2024 11:32:54 Cervical radiculopathy 01461438 M54.12 continue diclofenac gel daily and q8 prncontinu e tramadol 50 mg Q6 prncontinu e gabapentin 300 mg at hs add 300 mg QDper therapy patient neck pain is chronic and she was previously treated and recommende d Chronic di astolic heart failure 289670421 I50.32 monitor labs , weights , edemamonit or for cardiopulm onary sxencourag ed leg elevation/ wraps as needed. Gastroesop hageal reflux disease 084512827 K21.9 Pantoprazo le40 mg dailymonit or for gi upset. Mixed anxi ety and depressive disorder 294369557 F41.8 continue Escitalopr am Oxalate Tablet 30 mg dailymonit or for mood and behavorial changes. Type 2 jr betes mellitus 72250892 E11.21 continue monitor glucose,co ntinue Lispro SSI coverageco ntinue Gabapentin Capsule 300 MG at bedtime for neuropathy pain.cindy nue tramadol 50 mg q 8 prn [id number] CARLTON MINA [address] [address] 01/27/2024 10:53:32 02/17/2024 12:46:54 Cervical radiculopathy 78570634 M54.12 continue diclofenac gel daily and q8 prncontinu e tramadol 50 mg Q6 prncontinu e gabapentin 300 mg at hs add 300 mg QD Chronic di astolic heart failure 114385776 I50.32 monitor labs , weights , edemamonit or for cardiopulm onary sxencourag ed leg elevation/ wraps as needed. Gastroesop hageal reflux disease 778007691 K21.9 Pantoprazo le40 mg dailymonit or for gi upset. Mixed anxi ety and depressive disorder 144578684 F41.8 continue Escitalopr am Oxalate Tablet 30 mg dailymonit or for mood and behavorial changes. Type 2 jr betes mellitus 53549083 E11.21 bgl have been stablecont inue monitor glucose,co ntinue Lispro SSI coverageco ntinue Gabapentin Capsule 300 MG at bedtime for neuropathy pain.cindy nue tramadol 50 mg q 8 prn Falls 273816023 R29.6 no recent fallsConti nunell to be a high fall risk and needs CG and sometimes an assist for transfers. she has reduce functional mobility to left lower extremity due to pain in her ankle.Alba ent would benefit from an AFO to provide support to LLE/ankle and reduce pain. [id number] FRIEDA ANDERSON [address] [place] [address] 01/30/2024 10:23:09 02/04/2024 14:43:29 Bleeding from nose 707788088 R04.0 see hpistart afrin 2 spray to right nares q12 x 5days.janice loera for recurrence monitor BP/rebound congestion [id number] FRIEDA ANDERSON [address] [place] [address] 02/05/2024 09:31:19 02/11/2024 09:17:30 Bleeding from nose 429428431 R04.0 resolved. Cervical radiculopathy 60712832 M54.12 continue diclofenac gel daily and q8 prncontinu e tramadol 50 mg Q6 prncontinu e gabapentin 300 mg at hs add 300 mg QDper therapy patient neck pain is chronic and she was previously treated and recommende d Chronic di astolic heart failure 421280803 I50.32 monitor labs , weights , edemamonit or for cardiopulm onary sxencourag ed leg elevation/ wraps as needed. Gastroesop hageal reflux disease 180878789 K21.9 Pantoprazo le40 mg dailymonit or for gi upset. Mixed anxi ety and depressive disorder 837535887 F41.8 continue Escitalopr am Oxalate Tablet 30 mg dailymonit or for mood and behavorial changes. Type 2 jr betes mellitus 64540939 E11.21 continue monitor glucose,co ntinue Lispro SSI coverageco ntinue Gabapentin Capsule 300 MG at bedtime for neuropathy pain.cindy nue tramadol 50 mg q 8 prn [id number] MD DARRIN Perry [address] [address] 02/28/2024 13:56:25 03/10/2024 11:09:37 Pain in left foot 4914503705 41057 M79.672 With new deformity of left great [...] q 8 hrs prn for pain. Diarrhea 32430071 R19.7 Only has happened one time so far, possibly from stress.Ord ered imodium prnMonitor [id number] FRIEDA ANDERSON [address] [address] 03/04/2024 14:57:51 03/10/2024 11:43:05 Pain in left foot 7216637467 75498 M79.672 deformity of left great toe, with [...] for pain. Blister of toe without infection 74021004 S90.425A continue warm soaks as aboveclean se left 2nd toe with soap and warm water, hydrogen peroxideap ply petroleum and cover with gauze or non stick dressing daily and prnmonitor for healing. [id number] FRIEDA ANDERSON [address] [address] 03/06/2024 14:42:26 03/10/2024 12:16:05 Mixed anxiety and depressive disorder 857958992 F41.8 continue Escitalopr am Oxalate Tablet 30 mg dailywill adjust trazodone and increased from 12.5 mg to 25 mg scheduled at HS per psych rec.and continue prn trazodone 12.5 mg bid prn, anxiety for 14 days.monit or for mood and behavorial changes. [id number] FRIEDA ANDERSON [address] [place] [address] 03/10/2024 10:17:01 03/16/2024 15:45:17 Pain in left foot 9833484670 24874 M79.672 deformity of left great toe, with [...] coming next week, will consult Dr. Tanner [phone] can have wound care see her for further advice- will be seen by wound on ontinu e APAP 650 mg q 6 hrs prn and tramadol 50 mg q 8 hrs prn for pain.she does not have hx of gout but will order uric acid d/t her still having pain despite abx use for 4 days. Blister of toe without infection 79338471 S90.425A continue warm soaks as aboveclean se left 2nd toe with soap and warm water, hydrogen peroxidedr essing changes to Alginate/D CD QD [id number] FRIEDA ANDERSON [address] [place] [address] 03/16/2024 09:19:11 03/19/2024 16:19:43 Pain in left foot 5008095127 85850 M79.672 baseline deformity due to hammer toeabx [...] infection. Mixed anxi ety and depressive disorder 976088870 F41.8 continue Escitalopr am Oxalate Tablet 30 mg dailyrepor ts although medication s have been helpful that she continues with difficultl y falling asleepand evening anxiety.in cre[facility] to 12.5 mg q12 prnmonitor for mood and behavorial changes. [id number] FRIEDA ANDERSON [address] [address] 03/17/2024 10:40:42 03/20/2024 08:44:03 Bleeding from nose 542530360 R04.0 minor nasal bleeding after blowing her nosewill discussed avoiding nose blowing, gently sniff insteadavo id picking nose or rubbing noseafrin nasal 1 spray BID prnsaline nasal spray BID Pain of to e of left foot 7924477367 66908 M79.675 reports pain to left great toe and second great toenailini tially flinching on exam when toe(s) were touched , states pain requesting toenail to be cut on 2ndshe provided clippers, I trimmed and file all toenail, she reports toes feeling much betterther e was no observatio n of facial grimacing, flinching or pulling away during procedure. [id number] Naomi Todd MD [address] [address] 03/30/2024 16:40:06 04/01/2024 10:48:39 Falls 966435437 R29.6 Continues to be a high fall risk.Getti ng OT for mobility and safety, primarily wheelchair level.Cont inue fall precaution s.Monitor for safety. Peripheral venous insufficiency 58716090 I87.2 No current sxs.Contin ue local care and elevation. Chronic di astolic heart failure 407144321 I50.32 Appears euvolemic. Continue furosemide 10 mg qdMonitor resp. status, fluid status, wts and labs. Chronic ob structive pulmonary disease 56824377 J43.8 Continues with no sxs.Contin ue Advair 250/50 BID and albuterol nebs q 6 hrs prnMonitor resp status. Type 2 jr betes mellitus 89812047 E11.21 Stable on no meds.Last HgA1C was 6.1 in 06/2023.Con tinue gabapentin 300 MG qhs and tramadol qhs scheduled and BID prn for neuropathy Monitor fingerstic ks prn and HgA1C q 3-6 months Paroxysmal atrial flutter 645240217 I48.92 Rate remains in good control on amiodarone 200 mg qdNo AC due to age and fall riskMonito r HR Restless l egs syndrome 54998992 G25.81 Continue ropinirole 2 mg BIDMonitor sxs. Mixed anxi ety and depressive disorder 605009856 F41.8 Mood sl. down due to pain not improving. Continue escitalopr am 30 mg qdMonitor mood.Consu lt psych prn Anemia of chronic disease 833884679 D63.8 Hgb remains stable.Con tinue FeSO4 325 mg qd with vitamin C 250 mg qd for absorption .Monitor labs Hyperlipidemia 18036061 E78.49 Continue atorvastat in 20 mg qdMonitor labs yearly Gastroesop hageal reflux disease 349548420 K21.9 No current sxs.Contin ue pantoprazo le 40 mg qdMonitor sxs Chronic ki dney disease 024860074 N18.2 Renal function remains stableCont inue to avoid nephrotoxi c meds as able.Monit or labs.Renal consult prn. Chronic back pain 487829 002 G89.29 Continue meds as above.Janice tor sxs. Bleeding from nose 45419 6005 R04.0 Resolved. Pain of to e of left foot 8582548439 31962 M79.675 No improvemen t since toenails cut on 03/17.Left 2nd toe still red and tender.Esteban leung have nursing set up appt with Dr. Lu Holder who has offices in [facility] and [place]. [place] # is [phone] local care until then. Using padding between toes to keep the pressure off.Monito r for signs of infection. Will schedule hs tramadol and keep 50 mg BID prn [id number] FRIEDA ANDERSON DARRIN STYLES [address] [facility] [place] [address] 04/03/2024 11:03:23 04/28/2024 07:31:02 Cellulitis of foot 828707869 L03.119 left footsuspec gloria do to sx.recentl y treated for cellulitis left great toe with doxycyclin ewill start cephalexin 250 mg Q 6 hr for 5 days.will add probiotic BID for 7 daysmonito r for resolution . [id number] MD DARRIN Perry JENSEN [address] [facility] [place] [address] 04/13/2024 17:19:14 04/28/2024 08:01:43 Osteomyelitis 07176744 M86.272 Continue ertapenem 1 gm IV qd [...] Lu Holder who has offices in [facility] and [place]. [place] # is Falls [id number] R29.6 Continues to be a high fall risk.Able to restart rehab after hospitaliz ation.Need s PT/OT for strengthen ing, balance, gait training, safety and function.C ontinue fall precaution s.Monitor for safety. Chronic di astolic heart failure 434180183 I50.32 Appears euvolemic. Continue furosemide 10 mg qdMonitor resp. status, fluid status, wts and labs. Chronic ob structive pulmonary disease 59762931 J43.8 Continues with no sxs.Contin ue Advair 250/50 BID and albuterol nebs q 6 hrs prnMonitor resp status. Type 2 jr betes mellitus 52228573 E11.21 Sugars inpt were all <100Last HgA1C was 6.1 in 06/2023.Con tinue gabapentin 300 MG qhs and other pain meds as above for neuropathy .Monitor fingerstic ks prn and HgA1C q 3-6 months Paroxysmal atrial flutter 151388314 I48.92 Rate remains in good control on amiodarone 200 mg qdNo AC due to age and fall riskMonito r HR Restless l egs syndrome 27997655 G25.81 Continue ropinirole 2 mg BIDMonitor sxs. Mixed anxi ety and depressive disorder 630131392 F41.8 Mood sl. down due to pain not improving. Continue escitalopr am 30 mg qd, trazadone 25 mg qhs and 12.5 mg BID prn.Monito r mood.Consu lt psych prn Anemia of chronic disease 091664401 D63.8 Hgb remains stable.Con tinue FeSO4 325 mg qd with vitamin C 250 mg qd for absorption .Monitor labs Hyperlipidemia 52382616 E78.49 Continue atorvastat in 20 mg qdMonitor labs yearly Gastroesop hageal reflux disease 327291615 K21.9 No current sxs.Contin ue pantoprazo le 40 mg qdMonitor sxs Chronic ki dney disease 710853998 N18.2 Renal function remains stableCont inue to avoid nephrotoxi c meds as able.Monit or labs.Renal consult prn. Chronic back pain 922908 002 G89.29 Continue meds as above.Janice tor sxs. Peripheral venous insufficiency 78117723 I87.2 No current sxs.Contin ue local care and elevation. [id number] FRIEDA ANDERSON JENSEN [address] [place] [address] 04/16/2024 08:54:52 04/28/2024 08:26:12 Osteomyelitis 45565215 M86.272 Continue ertapenem 1 gm IV qd [...] in [facility], [place] and [place]. [place] # is [place] [id number] R29.6 Continues to be a high fall risk.Able to restart rehab after hospitaliz ation.Need s PT/OT for strengthen ing, balance, gait training, safety and function.C ontinue fall precaution s.Monitor for safety. Chronic di astolic heart failure 431248817 I50.32 Appears euvolemic. Continue furosemide 10 mg qdMonitor resp. status, fluid status, wts and labs. Chronic ob structive pulmonary disease 80847050 J43.8 Continues with no sxs.Contin ue Advair 250/50 BID and albuterol nebs q 6 hrs prnMonitor resp status. Paroxysmal atrial flutter 326706116 I48.92 Rate remains in good control on amiodarone 200 mg qdNo AC due to age and fall riskMonito r HR Restless l egs syndrome 13033253 G25.81 Continue ropinirole 2 mg BIDMonitor sxs. Mixed anxi ety and depressive disorder 331659339 F41.8 Continue escitalopr am 30 mg qd, trazadone 25 mg qhs and 12.5 mg BID prn.Monito r mood.Consu lt psych prn Anemia of chronic disease 539896205 D63.8 Continue FeSO4 325 mg qd with vitamin C 250 mg qd for absorption .Monitor labs Hyperlipidemia 33424266 E78.49 Continue atorvastat in 20 mg qdMonitor labs yearly Gastroesop hageal reflux disease 295962109 K21.9 No current sxs.Contin ue pantoprazo le 40 mg qdMonitor sxs [id number] FRIEDA ANDERSON JENSEN [address] [place] [address] [place] [address] 04/20/2024 10:04:50 04/28/2024 08:59:08 Osteomyelitis 02410283 M86.272 left foot 2nd toe with woundgrima [...] Lu Holder who has offices in [facility] and [place]. Luis Adrian # is [phone] Chronic di astolic heart failure 102208663 I50.32 Appears euvolemic. Continue furosemide 10 mg qdMonitor resp. status, fluid status, wts and labs. Chronic ob structive pulmonary disease 95002785 J43.8 breathing easy and unlabored. Continue Advair 250/50 BID and albuterol nebs q 6 hrs prnMonitor resp status. Mixed anxi ety and depressive disorder 222404582 F41.8 her mood is normal reports eating and drinking ok.Continu e escitalopr am 30 mg qd, trazadone 25 mg qhs and 12.5 mg BID prn.Monito r mood.Consu lt psych prn [id number] Naomi Todd MD [address] [place] [address] 04/23/2024 22:13:47 04/30/2024 18:09:13 Osteomyelitis 71032418 M86.272 Continue ertapenem 1 gm IV qd [...] Lu Holder's office again. Has offices in [facility] and [place]. Luis [place] # is Falls [id number] R29.6 Is still a high fall risk.Needs PT/OT for strengthen ing, balance, gait training, safety and function.C ontinue fall precaution s.Monitor for safety. Chronic di astolic heart failure 918295542 I50.32 Remains euvolemic. Continue furosemide 10 mg qdMonitor resp. status, fluid status, wts and labs. Chronic ob structive pulmonary disease 43890018 J43.8 Continues with no sxs.Contin ue Advair 250/50 BID and albuterol nebs q 6 hrs prnMonitor resp status. Type 2 jr betes mellitus 49661616 E11.21 Sugars were all good, so not being checked regularly. Last HgA1C was 6.1 in 06/2023.Con tinue gabapentin 300 MG qhs and other pain meds as above for neuropathy .Monitor fingerstic ks prn and HgA1C q 3-6 months [id number] GOLDIE TREVIZO [address] [facility] [address] [place], [place] [address] 04/30/2024 08:46:54 05/02/2024 09:31:27 Osteomyelitis 95306830 M86.272 left foot 2nd toe with wound, [...] in [facility], [place] and [place]. [place] # is Chronic di astolic heart failure 536090850 I50.32 Appears euvolemic. Continue furosemide 10 mg qdMonitor resp. status, fluid status, wts and labs. Chronic ob structive pulmonary disease 54706427 J43.8 breathing easy and unlabored. Continue Advair 250/50 BID and albuterol nebs q 6 hrs prnMonitor resp status. Mixed anxi ety and depressive disorder 342365797 F41.8 her mood is normal reports eating and drinking ok.Continu e escitalopr am 30 mg qd, trazadone 25 mg qhs and 12.5 mg BID prn.Monito r mood.Consu lt psych prn Gastroesop hageal reflux disease 375129573 K21.9 Reporting some nausea after eating, unsure if may be related to abx use. Discused with nsg., will monitor.Co ntinue pantoprazo le 40 mg qdMonitor sxs Restless l egs syndrome 68782978 G25.81 Continue requip, very helpful Headache 56469655 R51.9 history of, including migraines, for years.Most headaches in the forehead area and above eyes.APAP discussed, helps, would like it sched. if possible.Eloy beaversg. who also feels it would be a good idea, so will sched. 650 mg tid.Monito r. [id number] FRIEDA ANDERSON [address] [place] [address] rd [place] [address] 05/05/2024 11:02:17 05/06/2024 15:43:52 Osteomyelitis 09162856 M86.272 left foot 2nd toe with wound, [...] in [facility], [place] and [place]. [place] # is Chronic di astolic heart failure 289361523 I50.32 Appears euvolemic. Continue furosemide 10 mg qdMonitor resp. status, fluid status, wts and labs. Chronic ob structive pulmonary disease 46924252 J43.8 breathing easy and unlabored. Continue Advair 250/50 BID and albuterol nebs q 6 hrs prnMonitor resp status. Mixed anxi ety and depressive disorder 743692599 F41.8 her mood is normal reports eating and drinking ok.Continu e escitalopr am 30 mg qd, trazadone 25 mg qhs and 12.5 mg BID prn.Monito r mood.Consu lt psych prn Gastroesop hageal reflux disease 198017062 K21.9 Continue pantoprazo le 40 mg qdMonitor sxs Restless l egs syndrome 67091749 G25.81 Continue requip, very helpful Headache 71629779 R51.9 history of, including migraines, for years.Most headaches in the forehead area and above eyes.APAP discussed, helps, would like it sched. if possible.Eloy mo. who also feels it would be a good idea, so will sched. 650 mg tid.Monito r. [id number] FRIEDA ANDERSON [address] [place] [address] rd [place] [address] 05/07/2024 10:05:01 05/11/2024 16:11:56 Osteomyelitis 05367012 M86.272 Continue ertapenem 1 gm IV qd [...] Lu Holder who has offices in [facility] and [place]. [place] # is Chronic di astolic heart failure 458608701 I50.32 Appears euvolemic. Continue furosemide 10 mg qdMonitor resp. status, fluid status, wts and labs. Chronic ob structive pulmonary disease 85307507 J43.8 breathing easy and unlabored. Continue Advair 250/50 BID and albuterol nebs q 6 hrs prnMonitor resp status. Mixed anxi ety and depressive disorder 048684541 F41.8 Continue escitalopr am 30 mg qd, trazadone 25 mg qhs and 12.5 mg BID prn.Monito r mood.Consu lt psych prn Gastroesop hageal reflux disease 709814145 K21.9 Continue pantoprazo le 40 mg qdMonitor sxs Restless l egs syndrome 86799132 G25.81 Continue requip, very helpful Headache 17138941 R51.9 continue tylenol 650 mg prn.encour age to increase oral hydration. [id number] FRIEDA ANDERSON DARRIN STYLES [address] [place] [address] [place] [address] 05/11/2024 16:30:45 05/12/2024 13:09:07 Osteomyelitis 68808330 M86.272 Has been tolerating IV therapy.Co ntinue [...] wound care.cindy nayee with wound care treatment ordersShou ld f/u with Dr. Lu Holder who has offices in [facility], [place] and [place]. [place] # is Chronic di astolic heart failure 965815685 I50.32 euvolemic. Continue furosemide 10 mg qdMonitor resp. status, fluid status, wts and labs. Chronic ob structive pulmonary disease 82411697 J43.8 Continue Advair 250/50 BID and albuterol nebs q 6 hrs prnMonitor resp status. Mixed anxi ety and depressive disorder 760750401 F41.8 Continue escitalopr am 30 mg qd, trazadone 25 mg qhs and 12.5 mg BID prn.mood is good today. pleasant on exam.Monit or moodConsul t psych prn Gastroesop hageal reflux disease 014214786 K21.9 Continue pantoprazo le 40 mg qdMonitor sxs Restless l egs syndrome 04301595 G25.81 Continue requip 2 mg bid Headache 08542842 R51.9 continue tylenol 650 mg prn.encour age to increase oral hydration. [id number] FRIEDA ANDERSON DARRIN STYLES [address] [place] [address] [place] [address] 05/15/2024 10:17:08 05/19/2024 11:08:19 Osteomyelitis 42005294 M86.272 Has been tolerating IV therapy.Co ntinue ertapenem 1 gm IV qd until ontin ue probiotic BIDContinu e local care as ordered.Mo nitor labs (CBC, CMP, ESR, and CRP weekly until 05/18) and skin condition. Chronic di astolic heart failure 643348260 I50.32 euvolemic. Continue furosemide 10 mg qdMonitor resp. status, fluid status, wts and labs. Chronic ob structive pulmonary disease 57592827 J43.8 Continue Advair 250/50 BID and albuterol nebs q 6 hrs prnMonitor resp status. Mixed anxi ety and depressive disorder 722324147 F41.8 Continue escitalopr am 30 mg qd, trazadone 25 mg qhs and 12.5 mg BID prn.mood is good today. pleasant on exam.Monit or moodConsul t psych prn Gastroesop hageal reflux disease 651863517 K21.9 Continue pantoprazo le 40 mg qdthere has been no reported GI upset. Restless l egs syndrome 52206840 G25.81 Continue requip 2 mg bid Headache 79755464 R51.9 continue tylenol 650 mg prn.encour age to increase oral hydration. [id number] FRIEDA ANDERSON JENSEN [address] [place] [address] [place] [address] 05/18/2024 08:44:49 05/19/2024 11:16:27 Osteomyelitis 15499479 M86.272 completed abxcontinu e probiotic BIDContinu e local care as ordered.f/ u appt. with ID later today Chronic di astolic heart failure 341566414 I50.32 stableCont inue furosemide 10 mg qdMonitor resp. status, fluid status, wts and labs. Chronic ob structive pulmonary disease 90126208 J43.8 breathing easy and unlabored. Continue Advair 250/50 BID and albuterol nebs q 6 hrs prnMonitor resp status. Mixed anxi ety and depressive disorder 604339721 F41.8 Continue escitalopr am 30 mg qd, trazadone 25 mg qhs and 12.5 mg BID prn.Monito r moodConsul t psych prn Gastroesop hageal reflux disease 740240824 K21.9 Continue pantoprazo le 40 mg qdthere has been no reported GI upset. Restless l egs syndrome 40100803 G25.81 Continue requip 2 mg bid Headache 95238618 R51.9 continue tylenol 650 mg prn.encour age to increase oral hydration. [id number] FRIEDA ANDERSON [address] [address] 05/25/2024 09:58:25 05/29/2024 09:27:36 Osteomyelitis 38141001 M86.272 completed abx Chronic di astolic heart failure 011439970 I50.32 euvolemicC ontinue furosemide 10 mg qdMonitor resp. status, fluid status, wts and labs. Chronic ob structive pulmonary disease 22958619 J43.8 breathing easy and unlabored. Continue Advair 250/50 BID and albuterol nebs q 6 hrs prnMonitor resp status. Mixed anxi ety and depressive disorder 590329520 F41.8 Continue escitalopr am 30 mg qd, trazadone 25 mg qhs and 12.5 mg BID prn.Monito r moodConsul t psych prn Gastroesop hageal reflux disease 734513634 K21.9 Continue pantoprazo le 40 mg qdthere has been no reported GI upset. Restless l egs syndrome 23577195 G25.81 Continue requip 2 mg bid Headache 45614021 R51.9 continue tylenol 650 mg prn.encour age to increase oral hydration. [id number] FRIEDA ANDERSON [address] [address] 06/01/2024 09:58:25 06/03/2024 09:34:34 Osteomyelitis 13810830 M86.272 completed abx Chronic di astolic heart failure 915549141 I50.32 euvolemicC ontinue furosemide 10 mg qdMonitor resp. status, fluid status, wts and labs. Chronic ob structive pulmonary disease 43978606 J43.8 breathing easy and unlabored. Continue Advair 250/50 BID and albuterol nebs q 6 hrs prnMonitor resp status. Mixed anxi ety and depressive disorder 642293207 F41.8 mood is stableCont inue escitalopr am 30 mg qd, trazadone 25 mg qhs and 12.5 mg BID prn.Monito r moodConsul t psych prn [id number] FRIEDA ANDERSON DARRIN KAME [address] [place] [address] J[place] BROUSSARD [address] 06/03/2024 11:42:59 06/09/2024 13:21:42 Osteomyelitis 42429286 M86.272 completed abx Chronic di astolic heart failure 745728664 I50.32 euvolemicC ontinue furosemide 10 mg qdMonitor resp. status, fluid status, wts and labs. Chronic ob structive pulmonary disease 63259319 J43.8 breathing easy and unlabored. Continue Advair 250/50 BID and albuterol nebs q 6 hrs prnMonitor resp status. Mixed anxi ety and depressive disorder 812437249 F41.8 mood is stableCont inue escitalopr am 30 mg qd, trazadone 25 mg qhs and 12.5 mg BID prn.Monito [place] prn [id number] FRIEDA ANDERSON [facility] JENSEN [address] [place] [address] JESSE BROUSSARD [address] 06/09/2024 10:12:41 06/11/2024 14:30:47 Osteomyelitis 76696283 M86.272 06/09:clinic ally she is stableleft foot [...] dry and apply bacitracin with DCD BID. [id number] FRIEDA ANDERSON DARRIN STYLES [address] [place] [address] JESSE BROUSSARD [address] 5 06/11/2024 11:46:23 06/15/2024 11:21:06 Osteomyelitis 88676530 M86.272 06/09:clinic ally she is stableleft foot [...] a second consult with ortho. appt 06/18/24. [id number] FRIEDA ANDERSON [address] [address] 06/15/2024 09:48:35 06/17/2024 10:12:04 Osteomyelitis 21917248 M86.272 06/09:clinic ally she is stableleft foot [...] appt 06/18/24. Chronic di astolic heart failure 736186420 I50.32 euvolemicw eight stableCont inue furosemide 10 mg qdMonitor resp. status, fluid status, wts and labs. Chronic ob structive pulmonary disease 59431918 J43.8 breathing easy and unlabored. Continue Advair 250/50 BID and albuterol nebs q 6 hrs prnMonitor resp status. [id number] [facility] ANDERSON [facility] [address] [place] [address] 06/22/2024 08:47:12 06/24/2024 08:50:27 Osteomyelitis 21335457 M86.272 06/09:clinic ally she is stableleft foot [...] gaines. Mixed anxi ety and depressive disorder 625226178 F41.8 mood is stablerece nt room change transition to LTC, adjusting well. Most of the women she joins at activities reside on same unit, she is happy about this.Cindy nue escitalopr am 30 mg qd, trazadone 25 mg qhs and 12.5 mg BID prn.Monito r moodConsul t psych prn [id number] FRIEDA ANDERSON [address] [place] [address], [place] [address] 06/29/2024 10:45:15 06/30/2024 13:34:02 Osteomyelitis 92662570 M86.272 06/09:clinic ally she is stableleft foot [...] ortho. Mixed anxi ety and depressive disorder 896943885 F41.8 mood is stablerece nt room change transition to LTC, adjusting well. Most of the women she joins at activities reside on same unit, she is happy about this.Cindy nue escitalopr am 30 mg qd, trazadone 25 mg qhs and 12.5 mg BID prn.Monito r moodConsul t psych prn Chronic di astolic heart failure 918314327 I50.32 euvolemicw eight stable noted 166-168Con tinue furosemide 10 mg qdMonitor resp. status, fluid status, wts and labs. [id number] FRIEDA ANDERSON JENSEN [facility] JESSE BROUSSARD [address] 5 07/02/2024 11:07:08 07/03/2024 12:50:28 Mixed anxiety and depressive disorder 413182884 F41.8 mood is stable- she denies feeling hopeless, lonely or isolated.C ontinue escitalopr am 30 mg qd, trazadone 25 mg qhs and 12.5 mg BID prn.Monito r mood for negative changes.pt encouraged to continue to engage in social activities .Consult psych prn Chronic di astolic heart failure 894563937 I50.32 euvolemic- she denies any chest pain or shortness of breathweig ht stable noted 166-168Con tinue furosemide 10 mg qdMonitor resp. status, fluid status, wts and labs. Hammer toe 624987782 M20 .42 left foot 2 nd toe-recent ly completed IV antibiotic s ertapenem 1 gm daily for 6 weeks for osteomyeli tis. she continues to have discomfort . follow up xray results: no acute abnormalit y is seen in the left foot. [id number] FRIEDA ANDERSON [facility] [address] [place] [phone] 5 07/07/2024 14:44:04 07/08/2024 11:39:59 Hammer toe 219551874 M20.42 left foot 2 nd toe-recent ly completed IV antibiotic s ertapenem 1 gm daily for 6 weeks for osteomyeli tis. she continues to have discomfort . follow up xray results: no acute abnormalit y is seen in the left foot. Mixed anxi ety and depressive disorder 912063119 F41.8 mood is stable- she denies feeling hopeless, lonely or isolated.C ontinue escitalopr am 30 mg qd, trazadone 25 mg qhs and 12.5 mg BID prn.Monito r mood for negative changes.pt encouraged to continue to engage in social activities .followed by psych prn recently seen 07/06 no new recommenda tion. Chronic di astolic heart failure 893445414 I50.32 euvolemic- she denies any chest pain or shortness of breathweig ht stable noted 166-168Con tinue furosemide 10 mg qdMonitor resp. status, fluid status, wts and labs. [id number] FRIEDA ANDERSON [address] [address] 07/13/2024 08:31:31 07/14/2024 11:43:51 Hammer toe 588092093 M20.42 07/13:stabl e, no worsening sx notedleft foot 2 nd toe-recent ly completed IV antibiotic s ertapenem 1 gm daily for 6 weeks for osteomyeli tis. she continues to have discomfort . follow up xray results: no acute abnormalit y is seen in the left foot. Mixed anxi ety and depressive disorder 369765799 F41.8 07/13: StableCont inue escitalopr am 30 mg qd, trazadone 25 mg qhs and 12.5 mg BID prn.Monito r mood for negative changes.pt encouraged to continue to engage in social activities .followed by psych prn recently seen 07/06 no new recommenda tion. Chronic di astolic heart failure 818778232 I50.32 07/13: stable.euv olemic- she denies any chest pain or shortness of breathweig ht stable noted 166-168Con tinue furosemide 10 mg qdMonitor resp. status, fluid status, wts and labs. [id number] FRIEDA ANDERSON [address] [address] 07/16/2024 10:15:02 07/21/2024 15:43:58 Hammer toe 797743451 M20.42 07/13:stabl e, no worsening sx notedleft foot 2 nd toe-recent ly completed IV antibiotic s ertapenem 1 gm daily for 6 weeks for osteomyeli tis. she continues to have discomfort . follow up xray results: no acute abnormalit y is seen in the left foot. Mixed anxi ety and depressive disorder 846326376 F41.8 Stable with delusional thoughts, she thinks staff is stealing her clothes.Co ntinue escitalopr am 30 mg qd, trazadone 25 mg qhs and 12.5 mg BID prn.Monito r mood for negative changes.pt encouraged to continue to engage in social activities .followed by psych prn recently seen 07/06 no new recommenda tion. Chronic di astolic heart failure 066540822 I50.32 stable.euv olemic- she denies any chest pain or shortness of breathweig ht stable noted 166-168Con tinue furosemide 10 mg qdMonitor resp. status, fluid status, wts and labs. [id number] FRIEDA ANDERSON [address] [place] [address] 07/20/2024 11:57:24 07/21/2024 16:08:03 Hammer toe 323895220 M20.42 stable, no worsening sx notedleft foot 2 nd toe-recent ly completed IV antibiotic s ertapenem 1 gm daily for 6 weeks for osteomyeli tis. she continues to have discomfort . follow up xray results: no acute abnormalit y is seen in the left foot. Mixed anxi ety and depressive disorder 286670744 F41.8 07/19: seen by school psychologist assistant will review notes when available. Stable with delusional thoughts, she thinks staff is stealing her clothes.Co ntinue escitalopr am 30 mg qd, trazadone 25 mg qhs and 12.5 mg BID prn.Monito r mood for negative changes.pt encouraged to continue to engage in social activities .followed by psych prn recently seen 07/06 no new recommenda tion. Chronic di astolic heart failure 075641576 I50.32 stable.euv olemic- she denies any chest pain or shortness of breathweig ht stable noted 166-168Con tinue furosemide 10 mg qdMonitor resp. status, fluid status, wts and labs. [id number] FRIEDA ANDERSON [facility] [address] [place] [address] 07/23/2024 11:46:33 07/24/2024 11:44:07 Hammer toe 758800135 M20.42 stable, no worsening sx notedleft foot 2 nd toe-recent ly completed IV antibiotic s ertapenem 1 gm daily for 6 weeks for osteomyeli tis. she continues to have discomfort . follow up xray results: no acute abnormalit y is seen in the left foot. Mixed anxi ety and depressive disorder 004208656 F41.8 StableCont inue escitalopr am 30 mg qd, trazadone 25 mg qhs and 12.5 mg BID prn.Monito r mood for negative changes.pt encouraged to continue to engage in social activities .followed by psych prn recently seen 07/06 no new recommenda tion. Chronic di astolic heart failure 436924412 I50.32 stable.euv olemic- she denies any chest pain or shortness of breathweig ht stable noted 166-168Con tinue furosemide 10 mg qdMonitor resp. status, fluid status, wts and labs. Chronic ob structive pulmonary disease 77531829 J43.8 breathing easy and unlabored. Continue Advair 250/50 BID and albuterol nebs q 6 hrs prnMonitor resp status. [id number] FRIEDA ANDERSON [address] [address] 09/10/2024 08:43:17 09/11/2024 12:05:09 Mixed anxiety and depressive disorder 390269464 F41.8 mild emotional distress, crying during assessment 2/2 ble painContin ue escitalopr am 30 mg qd, trazadone 25 mg qhs and 12.5 mg BID prn.psych prn Chronic di astolic heart failure 548915061 I50.32 euvolemic- she denies any chest pain or shortness of breathweig ht stableCont inue furosemide 20 mg qdMonitor resp. status, fluid status, wts and labs. Chronic ob structive pulmonary disease 42001575 J43.8 breathing easy and unlabored. Continue Advair 250/50 BID and albuterol nebs q 6 hrs prnMonitor resp status. Neuropathy 021337658 G62 .9 see hpiBLE without sx of infectiono n gabapentin 300 mg at hs -she has been having increasing sx and weakness, requiring 2 people assist.dis cussed increasing gabapentin to BID and re eval in a few days for effect.hx diabetes/n ot on meds/ will get updated A1c. (06/2023 noted 6.1) Restless l egs syndrome 54154384 G25.81 Continue requip 2 mg bid [id number] FRIEDA ANDERSON [address] [address] 09/14/2024 10:23:24 09/15/2024 14:23:56 Neuropathy 610395397 G62.9 BLE without sx of infectiong abapentin 300 mg BIDshe has been having increasing sx and weakness, requiring 2 people assist.hx diabetes/n ot on meds/ will get updated A1c. (06/2023 noted 6.1) - labs ord for today not completed will re-order. Restless l egs syndrome 14338898 G25.81 Continue requip 2 mg bid [id number] FRIEDA ANDERSON [facility] JENSEN [address] [place] [address] [place] [address] 10/02/2024 11:01:09 10/05/2024 13:31:21 Pain of left ankle joint 4367834501 7614218 M25.572 localizedn on pitting left ankle swelling, no redness or warmthno foot discolorat ion, color is normal+CMS , pain with ROMplan for xray, labs with uric acid,apply ice 15 minutes to ankle TIDapply tyrone wrap compressio n dailywill schedule tylenol 650 mg TID and Motrin 400 mg BIDPT/OT eval and tx [id number] FRIEDA ANDERSON DARRIN JENSEN [address] [place] [address] 10/05/2024 11:01:37 10/06/2024 13:54:09 Pain of left ankle joint 2039496061 2344818 M25.572 localized/ swelling noted to have improved [...] BIDPT/OT eval and tx Contusion of thigh 52953 003 S70.10XA see hpi/left thightende r to touchmonit or as it healsdiscu ssed with nursingcon tinue scheduled tylenol [id number] MD DARRIN Roe [address] [place] [address] [place] [address] 11/25/2024 11:52:19 11/26/2024 15:26:27 Acute low back pain 847934978 M54.59 acute on chronic low back pain with point tenderness lumbar spinex ray to eval for concern vert comp fxx ray left hipchange tramadol 50 mg to q 6 prnmonitor need for ortho eval Chronic di astolic heart failure 438479493 I50.32 euvolemic- she denies any chest pain or shortness of breathweig ht stableCont inue furosemide 20 mg qdMonitor resp. status, fluid status, wts and labs. 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 G92.8 increased confusion at hospital is currently A and O x 3 with poor short term recall Asthenia 00738967 R53.1 therapy to re-evaluat e to determine baseline Cardiac en zymes outside reference range 415393244 R89.0 eval by cards now onasa 81 mg qdlipitor 40 mg qdmonitor sx Essential hypertension 11518160 I10 lasix 20 mg qd prn for weight gain associated with chfstarted on norvasc 2.5 mg qdmonitor bp and need to titrate Chronic di astolic heart failure 967618648 I50.32 Continue furosemide 20 mg qd prn weight gain Paroxysmal atrial flutter 593454188 I48.3 amiodarone 200 mg qdmonitor rate control Impaired cognition 12952 6002 R41.89 question of poor insight prior to above infectionb eing eval by psych for competency evalwill await recs [id number] MD DARRIN Roe [address] [place] [address] 5 01/06/2025 11:35:48 01/08/2025 08:30:51 Toxic metabolic encephalopathy 390796997 G92.8 see aboveincre ased confusion at hospital is currently A and O x 3 with poor short term recallnow invokedmon itor level of insight Impaired cognition 25977 6002 R41.89 appreciate psych eval and recswill invoke HCPmonitor level of insight as patient is alert and oriented to person place and time which she states easily Asthenia 58588344 R53.1 coordinate with therapymon itor fall risk [id number] DANIELLE GOFF CNP [address] [place] [address] 01/13/2025 11:16:32 01/20/2025 11:19:42 Chronic diastolic heart failure 444437985 I50.32 stable, euvolemic- she denies any chest pain or shortness of breathweig ht stable 160-170Con tinue furosemide 20 mg qdMonitor resp. status, fluid status, wts and labs. Chronic ob structive pulmonary disease 55637847 J43.8 stablemoni tor respirator y status and albuterol utilizatio n Gastroesop hageal reflux disease 167229953 K21.9 protonix 40 mg qdmonitor sx control Mixed anxi ety and depressive disorder 421426669 F41.8 mood stable.Con tinue escitalopr am 30 mg qd, trazadone 25 mg qhs and 12.5 mg BID prn.psych prn Restless l egs syndrome 76783119 G25.81 StableCont inue requip 2 mg bid Impaired cognition 59509 6002 R41.89 appreciate psych eval and recsHCP invoked.mo nitor level of insight as patient is alert and oriented to person place and time which she states easily Toxic meta bolic encephalopathy 213767306 G92.8 see aboveincre ased confusion at hospital is currently A and O x 3 with poor short term recallnow invokedmon itor level of insight Asthenia 47873846 R53.1 coordinate with therapymon itor fall risk Respirator y syncytial virus infection 77553737 B33.8 [id number] No acute respirator y distress noted.Cont inue supportive care.Monit or respirator y status. [id number] FRIEDA ANDERSON [facility] [address] [place] [address] JES[place] BROUSSARD [address] 04/14/2025 05:51:03 04/16/2025 13:06:59 Chronic diastolic heart failure 858206610 I50.32 Continue furosemide 20 mg qdMonitor resp. status, fluid status, wts and labs. Chronic ob structive pulmonary disease 92925115 J43.8 stablemoni tor respirator y status and albuterol utilizatio n Gastroesop hageal reflux disease 094301261 K21.9 protonix 40 mg qdmonitor sx control Mixed anxi ety and depressive disorder 850115860 F41.8 Continue escitalopr am 30 mg qd, trazadone 25 mg qhs and 12.5 mg BID prn.psych prn Restless l egs syndrome 70490735 G25.81 Continue requip 2 mg bid Impaired cognition 59017 6002 R41.89 ? underlying dementiawa x and wane with confusione xpect decline Chronic ki dney disease 892483440 N18.2 Renal function is at baselinemo nitor labsavoid nephrotoxi c drugs Essential hypertension 27798665 I10 lasix 20 mg qd prn for [...] [place]: [employer] Shreya M Gravel [id number] Shreya Gravel 04/14/2025 2 [place]) [id number] Shreya Gravel [id number] Shreya Gravel Notes Date Note Type Note Provider Name and Address Organization Details Recorded Time 11/25/2024 text/html Patient is a 89 yo female resident due for routine rounding also seen for acute rounding with complaint of chronic pain. PMH chf, a flutter, gerd, anemia, copd, chronic pain Rex Bass MD [address] [facility], [address], [place], [address], [facility] [employer] 11/25/2024 12:03:07 12/14/2024 text/html Patient is an [...] underlying cognitive impairment Rex Bass MD [address] [facility], [address], [place], [address], [employer] 12/14/2024 10:00:50 01/06/2025 text/html Patient is [...] belong throughout day. Rex Bass MD [address] [facility], [address], [place], [address], [employer] [facility] 01/06/2025 11:42:10 01/13/2025 text/html Shreya is [...] syndrome, depression, anxiety, LLE cellulitis. DANIELLE GOFF, WEB ARCHITECT [address] [facility], [address], [place], [address], [facility] [employer] 01/13/2025 11:53:02 04/14/2025 text/html 89 yo female LTC resident seen for routine rounding. Medically she is stable, she is at her baseline in NAD. FRIEDA ANDERSON [address] [facility], [address], [place], [address], [facility] [employer] [facility] 04/15/2025 19:03:46 OBGyn Episode No OBEpisode recorded.
--- OUTSIDE RECORDS SUMMARY | 2025-09-16 06:41 | XMS_ITS | Patient Health Record ---
Author Organization [facility] Address [address] [place] [address] Care Team Providers Care Necktie Operator Pockets And Pieces Name Role Phone Shelia DIAZ, Rex Primary Care Provider Unavailab sarahi Lu Holder Unavailable [phone] Allergies No Known Allergies Reason For Referral [...] Fluticasone-Salmeterol Active Compression Stockings Active traMADol HCl Not-Graahm ing Ferrous Sulfate Acti ve Bactrim 400-80 [...] Problem Information temporarily unavailable Unspecified atherosclerosis of [place] arteries of extremities, bilateral legs (I70.203) Active [...] X ray : Foot, right 2V 06/06/2012 76035-DKZGMFY NAIL, 6 OR MORE 03/27/2012 19918-DWJHWIG NAIL, 6 OR MORE 08/22/2012 05919-LPONZOR NAIL, 6 OR MORE 06/13/2012 86214-VQFHFQS NAIL, 6 OR MORE 08/28/2011 03563-CHCGDOH NAIL, 6 OR MORE 11/13/2011 29773-WWUTSXA NAIL, 6 OR MORE 01/18/2012 63378-LDIXBLG NAIL, 6 OR MORE 11/06/2012 88971-YIENYZU NAIL, 6 OR MORE 02/10/2013 96329-NLOPZDW NAIL, 6 OR MORE 04/14/2013 89139-AEOGASQ NAIL, 6 OR MORE 05/21/2013 36124-HGJOFYK NAIL, 6 OR MORE 07/09/2013 25875-XUWDWIE NAIL, 6 OR MORE 10/13/2013 06386-KPSWTQE NAIL, 6 OR MORE 04/23/2014 17205-SCGVCVV NAIL, 6 OR MORE 01/15/2014 66785-YODGFJX NAIL, 6 OR MORE 07/22/2014 94839-KUZPFXF NAIL, 6 OR MORE 10/26/2014 42362-PRECGKI NAIL, 6 OR MORE 02/11/2015 92632-CZGVVNO NAIL, 6 OR MORE 04/19/2015 87417-DVNLRTV NAIL, 6 OR MORE 07/12/2015 74871-SCMKLAL NAIL, 6 OR MORE 10/18/2015 92002-HPTZXIB NAIL, 6 OR MORE 12/20/2015 85782-DHGDSWQ NAIL, 6 OR MORE 02/28/2016 94112-XZTTTYR NAIL, 6 OR MORE 06/15/2016 60775-JTHQSJJ NAIL, 6 OR MORE 09/12/2016 34705-EFPMSXK NAIL, 6 OR MORE 12/05/2016 75352-XDCJEKH NAIL, 6 OR MORE 02/22/2017 32371-CYMAQZN NAIL, 6 OR MORE 10/30/2017 56919-SXZHHWO NAIL, 6 OR MORE 02/04/2018 51445-CHYFLXJ NAIL, 6 OR MORE 04/24/2018 76151-PQRKMUM NAIL, 6 OR MORE 07/23/2018 76044-AMZBJIT NAIL, 6 OR MORE 05/24/2017 31734-SFURUOX NAIL, 6 OR MORE 08/06/2017 45161-KOSUFDF NAIL, 6 OR MORE 05/29/2019 96744-ZSTIIQM NAIL, 6 OR MORE 11/11/2019 53474-PBCCCKO NAIL, 6 OR MORE 03/02/2020 45462-INSQMQM NAIL, 6 OR MORE 05/04/2020 47952-OJCYOOV NAIL, 6 OR MORE 07/08/2020 36552-PSKGNLN NAIL, 6 OR MORE 02/17/2021 54120-HGLHFBW NAIL, 6 OR MORE 06/20/2021 96264-DOMLFDS NAIL, 6 OR MORE 11/07/2021 52392-XXVNCMQ NAIL, 6 OR MORE 01/16/2022 38832-UOFABYA NAIL, 6 OR MORE 03/20/2022 40720-ZVOANWK NAIL, 6 OR MORE 06/12/2022 09608-AWGWTWA NAIL, 6 OR MORE 09/12/2022 03790-ZINTNIR NAIL, 6 OR MORE 01/22/2023 14644-CSOPYGC NAIL, 6 OR MORE 05/29/2023 77229-Huiz Destruction, -14 01/22/2023 74023-Xytt Destruction, -14 07/02/2023 41561-Bovw Destruction, -14 10/16/2022 47398-Huae Destruction, -14 06/12/2022 47437-Qnwl Destruction, -14 09/12/2022 85410-Jbhr Destruction, -14 01/16/2022 84005-Xnmr Destruction, -14 12/19/2021 17119-Naul Destruction, -14 11/07/2021 55247-Wvyp Destruction, -14 08/01/2021 06873-Nihp Destruction, 10-2007/08/2020 97770-Wikp Destruction, 10-2001/11/2021 87111-Vbhk Destruction, 10-2008/23/2020 66970-Ybsk Destruction, 10-2005/04/2020 99899-Ublm Destruction, 10-2003/02/2020 34991-Jjaz Destruction, 10-2009/18/2019 17850-Thbe Destruction, 10-2011/11/2019 77446-Fhsw Destruction, 10-2007/15/2019 11600-Kfqg Destruction, 10-2005/29/2019 85144-Qtui Destruction, 10-2007/02/2017 06229-Hinu Destruction, 10-2007/23/2018 69152-Kaun Destruction, 10-2009/10/2018 60222-Hbni Destruction, 10-2003/26/2017 13195-Supu Destruction, 10-2005/24/2017 11283-Zalf Destruction, 10-2012/05/2016 76059-Nbpl Destruction, 10-2008/01/2016 66527-Zhrk Destruction, 10-2010/24/2016 94773-Gsuf Destruction, 10-2006/15/2016 09209-Ngaa Destruction, 10-2004/05/2016 34273-Enag Destruction, 10-2012/20/2015 57219-Fylx Destruction, 10-2001/24/2016 18330-Pbsn Destruction, 10-2010/18/2015 01799-Vegl Destruction, 10-2008/23/2015 96337-Mfga Destruction, 10-2004/14/2013 44895-Pgly Destruction, 10-2005/21/2013 11200-Pvodtcqa Plate 09/01/2013 25616-Rmqeyftp Plate 07/09/2013 49560-Yeiblehw Plate 02/10/2013 42588-Yuwxbfga Plate 12/30/2012 49260-Ayezxolk Plate 10/26/2014 62153-Dsohkawk Plate 08/26/2014 30594-Xbprnffv Plate 07/22/2014 79425-Owrqzszi Plate 04/23/2014 60917-Tluudquo Plate 12/04/2013 29370-Dinlfxod Plate 07/10/2011 39743-Eafqbgmb Plate 01/18/2012 50594-Yjffvcqm Plate 10/16/2011 89377-Pdvrnlij Plate 10/25/2011 49217-Vhygpfoe Plate 11/08/2011 99667-Vhcgysgf Plate 07/11/2012 66868-Rdalzpmz Plate 09/25/2012 06533-Cfuslcnu Plate 08/22/2012 89237-Vvlbjxoa Plate 03/27/2012 75957-Piupnkzi Plate 05/09/2012 28631-Bqcsotoj Plate 06/13/2012 76499-Zepfrqeh Plate 05/31/2015 83205-Ogdoffza Plate 07/12/2015 42375-Liexvrpa Plate 04/19/2015 32916-Maxbstja Plate 02/11/2015 21875-Wkrzmnmu Plate 03/04/2014 57549-Boyzgwap Plate 11/25/2014 99636-Ijrjhfzp Plate 06/15/2016 37613-Vnvldche Plate 03/26/2017 63315-Kyadqahc Plate 08/06/2017 68216-Khzglcsz Plate 05/29/2019 08696-Libzxtkt Plate 09/18/2019 89440-Rasdcgce Plate 07/15/2019 46532-Ylflflun Plate 07/08/2020 39140-Rtgfdbvd Plate 01/11/2021 06474-Njemoaun Plate 02/17/2021 06054-Suxdxnyu Plate 03/31/2021 99134-Ecjxxqpk Plate 06/20/2021 27483-Cngwhsax Plate 01/16/2022 42251-Qefnupcj Plate 11/07/2021 13257-Etunuisa Plate 04/24/2022 38710-Kzaesbti Plate Each Additional 74127-Hihzcini Plate Each Additional 10/2021 86761-Lnrfgenn Plate Each Additional 09/2022 87008-Ipgyjfmp Plate Each Additional 22201-Yyqnxtzi Plate Each Additional 04/2021 87089-Mclypeld Plate Each Additional 11/2019 53617-Xuhvfvzn Plate Each Additional 38005-Vnkbpqej Plate Each Additional 04/2012 57953-Hhgciepn Plate Each Additional 12/2011 98037-Ifgiqrwe Plate Each Additional 85813-Jyxabrwh Plate Each Additional 04/2013 43094- Debride <25 sq cm 02/10/2013 32996- Debride <25 sq cm 12/30/2012 27896- Debride <25 sq cm 11/06/2012 17712- Debride <25 sq cm 05/21/2013 62376- Debride <25 sq cm 04/14/2013 44714- Debride <25 sq cm 12/04/2013 93431- Debride <25 sq cm 04/23/2014 72216- Debride <25 sq cm 05/27/2014 88849- Debride <25 sq cm 07/22/2014 52940- Debride <25 sq cm 08/26/2014 04854- Debride <25 sq cm 10/26/2014 26738- Debride <25 sq cm 06/06/2012 13588- Debride <25 sq cm 03/27/2012 37285- Debride <25 sq cm 06/13/2012 16229- Debride <25 sq cm 08/22/2012 28865- Debride <25 sq cm 09/25/2012 34676- Debride <25 sq cm 08/28/2011 39874- Debride <25 sq cm 07/10/2011 09453- Debride <25 sq cm 02/15/2012 10830- Debride <25 sq cm 12/20/2011 71149- Debride <25 sq cm 11/25/2014 35438- Debride <25 sq cm 01/04/2015 51364- Debride <25 sq cm 02/11/2015 08125- Debride <25 sq cm 03/15/2015 96537- Debride <25 sq cm 04/19/2015 82831- Debride <25 sq cm 07/12/2015 25945- Debride <25 sq cm 01/18/2017 73779- Debride <25 sq cm 09/12/2016 74565- Debride <25 sq cm 05/04/2020 77001- Debride <25 sq cm 01/11/2021 50299- Debride <25 sq cm 10/30/2017 83604- Debride <25 sq cm 07/02/2017 78473- Debride <25 sq cm 09/10/2018 01140- Debride <25 sq cm 05/29/2019 74463- Debride <25 sq cm 02/17/2021 51847- Debride <25 sq cm 03/31/2021 84216- Debride <25 sq cm 06/20/2021 94946- Debride <25 sq cm 11/07/2021 53239- Debride <25 sq cm 08/01/2021 67786- Debride <25 sq cm 11/28/2021 49445- Debride <25 sq cm 06/12/2022 59472- Debride <25 sq cm 04/24/2022 08542- Debride <25 sq cm 03/20/2022 19782- Debride <25 sq cm 09/12/2022 75597- Debride <25 sq cm 11/13/2022 54230- Debride <25 sq cm 01/22/2023 66844- Debride <25 sq cm 10/16/2022 70407- Debride <25 sq cm 07/02/2023 30745-ZDMQWLL SKIN/TISSUE 05/22/2024 40577-TTNKZWR SKIN/TISSUE 01/15/2014 77826-MNRAEEX SKIN/TISSUE 03/04/2014 97733 I&D ABSCESS- SIMPLE,SINGLE 012 97223 I&D ABSCESS- SIMPLE,SINGLE 013 41319-JLMS SKIN LESIONS, 2 TO 4 05/22/20 24 31465- Removal of Foreign Body, Subcut 1 61020-Mfovypuk Benign Lesion 0.5cm 11/08 52099-Cxjyldtf Benign Lesion 0.5cm 10/25- Ganglion Cyst Injection/Aspiratio n 01/18/2012- Ganglion Cyst Injection/Aspiratio n 07/02/2017 Future Test Test Name Order Date 49881-Rmmeldrl Plate Each Additional Insurance Providers Payer Name Payer Address Payer Phone Subscriber Number Group Number Insured Name Patient Relationship to Insured Coverage Start Date Coverage End Date Medicare National Govt Svcs Inc [address] [facility] [address] [id number] Shreya Calvert Self - patient is the insured 1 [employer] Blue Shield [address] [place] [address] [phone] [id number] Shreya Calvert Self - patient is the [...] Rehab 05/2024 [facility], rehab- leg swelling 05/2023 [facility] fell down 02/2023 [facility] ran over by scooter 02/2023 [facility] heart issues 08/2022 MM Cellulitis 07/2022 [facility] heart issues 03/2022 [facility]- cellulitis, day stay, 3 week therap y 01/2022 [facility], rehab- fell 05/2021 [facility] for cellulitis for 5 days 9 [facility] fall 05/05/18 [facility] Cholycystectomy 2015 [place] [facility], tripped bumped head 08/2015 Admitted to [facility] overnight;GERD 03/2015 [facility] - Emergency 11/23/14 & 11/24 Dehydration 11/2011
[2025-09-16 06:43] LABS: Hematocrit 36.6 % (37.0-47.0); Hemoglobin 12.2 g/dl (12.0-16.0); Imm Gran Abs Auto 0.02 X10*3/uL (0.00-0.03); Imm Gran Pct Auto 0.4 % (0.0-0.4); Lymphocytes Absolute Auto 1.2 X10*3/uL (1.2-4.9); Mean Corpuscular HGB Conc 33.3 g/dl (31.0-35.0); Mean Corpuscular Hemoglobin 32.0 pg (27.0-33.0); Mean Corpuscular Volume 96.1 fL (80.0-98.0); NRBC Abs Auto 0.000 X10*3/uL (0.0-0.012); NRBC Pct Auto 0.0 /100WBC (0.0-0.2); Platelet Count 229 X10*3/uL (160-400); Red Blood Count 3.81 X10*6/uL (4.20-5.50); White Blood Count 5.1 X10*3/uL (4.8-10.8)
[2025-09-16 07:06] LABS: Alanine Aminotransferase 16 U/L (0-31); Albumin Level 3.5 g/dL (3.5-5.0); Alkaline Phosphatase 84 U/L (39-117); Anion Gap 12 (12-20); Aspartate Amino Transferase 19 U/L (5-31); Blood Urea Nitrogen 27 mg/dL (9-16); Calcium 9.1 mg/dL (8.4-10.2); Carbon Dioxide 24 mmol/L (22-29); Chloride 108 mmol/L (96-108); Estimated Glomerular Filt Rate 57; Potassium 3.6 mmol/L (3.3-5.1); Sodium 140 mmol/L (135-145); Total Protein 5.8 g/dL (6.5-8.0)
== END 2025-09-16 06:37 ==
LOC: HO.MMNH3L 06:36
PROVIDERS: Visit Provider Physician Assistant Medical
DX: E11.22 Type 2 diabetes mellitus with diabetic chronic kidney disease (principal); N18.9 Chronic kidney disease, unspecified; J44.9 Chronic obstructive pulmonary disease, unspecified
CPT/HCPCS: 36415; 80053; 85025

== ENCOUNTER 2025-09-17 06:47 | Outpatient (REF) | payer MEDICARE, MEDICAID, SELFPAY ==
--- OUTSIDE RECORDS SUMMARY | 2025-09-17 06:50 | XMS_ITS | Clinical Summary ---
Author Organization 175 [facility] Address [address] [place] [address] Phone Care Team Providers Care Seed Laboratory Assistant Name Role Phone Rex Bass MD Primary Care Provider [phone] Allergies Active Allergy Reactions Criticality Noted Date [...] Compression fracture of L1 l umbar vertebra ([facility] V24, [facility] V28) DX:Compression fra cture of L1 lumbar vertebra ([facility]); COMMENT: and t12 vertebra Degeneration macular DX:Degenera tion macular Depression DX:Depression Diabetes type 2, controlled ([facility] V24, [facility] V28) DX:Diabetes type 2, controll ed ([facility]) Diverticulitis DX:Diverticuliti s Elevated LFTs DX:Elevated LFTs Ganglion cyst of finger of left hand DX:Ganglion cyst of finger of left hand EKTA (iron deficiency anemia) DX: ETKA (iron deficiency anemia) Insomnia DX:Insomnia Oral lichenoid mucositis DX:Oral lichenoid mucositis Lower extremity edema DX:Lower e xtremity edema Migraine DX:Migraine Nausea & vomiting DX:Nausea & vo miting Osteoarthritis DX:Osteoarthriti s Class 2 obesity DX:Class 2 obesi ty Osteoporosis DX:Osteoporosis Primary hyperparathyroidism ([facility] V24) DX:Primary hyperparathyroidi sm ([facility]) Recurrent falls DX:Recurrent fal ls Restless [...] patient's age to complete this topic Insurance [facility] MEDICAID - [place] MEDICARE Advance Directives Documents on File Type Date Recorded Patient General Merchandise Manager Expl anation Health Care Decision (hx) 09/26/2023 AD FARNSWORTH DIRECTIVE Health Care Decision (hx) 05/09/2021 AD FARNSWORTH DIRECTIVE Health Care Decision (hx) 05/09/2021 AD FARNSWORTH DIRECTIVE Care Teams Seed Laboratory Assistant Relationship Specialty Start Date End Date Rex Bass MD [address], [id number] PCP - General 04/23/24
--- OUTSIDE RECORDS SUMMARY | 2025-09-17 06:51 | XMS_ITS | Patient Health Record ---
Author Organization [facility] Address [address] [place] [address] Care Team Providers Care Processing Technician Name Role Phone Shelia DIAZ, Rex Primary Care Provider Unavailab sarahi Lu Holder Unavailable [phone] Allergies No Known Allergies Reason For Referral [...] Problem Information temporarily unavailable Unspecified atherosclerosis of [place] arteries of extremities, bilateral legs (I70.203) Active [...] X ray : Foot, right 2V 06/06/2012 33220-QNTIOBG NAIL, 6 OR MORE 03/27/2012 71561-HELPUAM NAIL, 6 OR MORE 08/22/2012 72902-GRJLPPX NAIL, 6 OR MORE 06/13/2012 11119-GUKOGCD NAIL, 6 OR MORE 08/28/2011 50234-GXDMTHV NAIL, 6 OR MORE 11/13/2011 35147-YRFBUKV NAIL, 6 OR MORE 01/18/2012 86875-VBNZEEO NAIL, 6 OR MORE 11/06/2012 04345-PUHPPGN NAIL, 6 OR MORE 02/10/2013 55346-SQLTEID NAIL, 6 OR MORE 04/14/2013 64152-EPHKYIF NAIL, 6 OR MORE 05/21/2013 74206-BGVTWKH NAIL, 6 OR MORE 07/09/2013 78157-AJWDPAA NAIL, 6 OR MORE 10/13/2013 80505-ORHSQIV NAIL, 6 OR MORE 04/23/2014 45640-PQJZQFN NAIL, 6 OR MORE 01/15/2014 84248-LJLNNGK NAIL, 6 OR MORE 07/22/2014 48894-UWMKTAA NAIL, 6 OR MORE 10/26/2014 12440-IWWJEWD NAIL, 6 OR MORE 02/11/2015 77382-OURBUWP NAIL, 6 OR MORE 04/19/2015 73887-THACLJO NAIL, 6 OR MORE 07/12/2015 23145-BMCPJPB NAIL, 6 OR MORE 10/18/2015 90921-TUYMKIT NAIL, 6 OR MORE 12/20/2015 64788-FYATCIS NAIL, 6 OR MORE 02/28/2016 32991-IMCIALJ NAIL, 6 OR MORE 06/15/2016 24444-UVOEMLT NAIL, 6 OR MORE 09/12/2016 89468-LXOZWZL NAIL, 6 OR MORE 12/05/2016 60379-CXVFPVX NAIL, 6 OR MORE 02/22/2017 82810-QHPJMUT NAIL, 6 OR MORE 10/30/2017 66944-BAKAICJ NAIL, 6 OR MORE 02/04/2018 54163-KJXSNVH NAIL, 6 OR MORE 04/24/2018 11832-ERTAVDX NAIL, 6 OR MORE 07/23/2018 41595-YCCLRLA NAIL, 6 OR MORE 05/24/2017 02519-XYAQQEX NAIL, 6 OR MORE 08/06/2017 29121-CJUTOXT NAIL, 6 OR MORE 05/29/2019 58320-EGWTQKI NAIL, 6 OR MORE 11/11/2019 33539-NHUMTPA NAIL, 6 OR MORE 03/02/2020 89430-MUJOKVW NAIL, 6 OR MORE 05/04/2020 31767-RIPEYNN NAIL, 6 OR MORE 07/08/2020 65695-FHHFGGN NAIL, 6 OR MORE 02/17/2021 64019-VAGGXSY NAIL, 6 OR MORE 06/20/2021 62372-LLRKDPZ NAIL, 6 OR MORE 11/07/2021 54181-TIUWWGE NAIL, 6 OR MORE 01/16/2022 19926-RHPOWZN NAIL, 6 OR MORE 03/20/2022 38994-WYZKKFY NAIL, 6 OR MORE 06/12/2022 13003-NNQZAVJ NAIL, 6 OR MORE 09/12/2022 73149-JXBIDAK NAIL, 6 OR MORE 01/22/2023 23580-UGWDFZC NAIL, 6 OR MORE 05/29/2023 60436-Zfqp Destruction, -14 01/22/2023 26345-Gzon Destruction, -14 07/02/2023 72051-Kufk Destruction, -14 10/16/2022 57670-Moja Destruction, -14 06/12/2022 38916-Hahk Destruction, -14 09/12/2022 39785-Nbjn Destruction, -14 01/16/2022 53780-Mfxr Destruction, -14 12/19/2021 11396-Yqzy Destruction, -14 11/07/2021 47541-Zieh Destruction, -14 08/01/2021 61482-Oyco Destruction, 10-2007/08/2020 55469-Lkpl Destruction, 10-2001/11/2021 04476-Wtlx Destruction, 10-2008/23/2020 36279-Modq Destruction, 10-2005/04/2020 11763-Qhxc Destruction, 10-2003/02/2020 68724-Jbgm Destruction, 10-2009/18/2019 66362-Dnyw Destruction, 10-2011/11/2019 18539-Vtxa Destruction, 10-2007/15/2019 87341-Cofa Destruction, 10-2005/29/2019 82832-Erkd Destruction, 10-2007/02/2017 95659-Pcva Destruction, 10-2007/23/2018 43900-Agbg Destruction, 10-2009/10/2018 11349-Mpzn Destruction, 10-2003/26/2017 47266-Cijs Destruction, 10-2005/24/2017 81694-Qsqx Destruction, 10-2012/05/2016 29408-Ssiv Destruction, 10-2008/01/2016 04353-Vlqb Destruction, 10-2010/24/2016 11155-Bjwv Destruction, 10-2006/15/2016 94153-Wqmo Destruction, 10-2004/05/2016 74633-Rnku Destruction, 10-2012/20/2015 07479-Klyw Destruction, 10-2001/24/2016 31419-Rcev Destruction, 10-2010/18/2015 04881-Hcio Destruction, 10-2008/23/2015 26697-Ivtc Destruction, 10-2004/14/2013 83081-Nkdx Destruction, 10-2005/21/2013 96068-Sjfnhneu Plate 09/01/2013 43242-Chytjnmp Plate 07/09/2013 13800-Vebfklxp Plate 02/10/2013 12564-Ffhgzskv Plate 12/30/2012 61797-Gblndcud Plate 10/26/2014 06241-Thiveymc Plate 08/26/2014 04246-Uvrmozjv Plate 07/22/2014 66928-Rrssjvdy Plate 04/23/2014 63402-Bjrxcppf Plate 12/04/2013 05907-Kqpiajxd Plate 07/10/2011 15100-Uaognhpe Plate 01/18/2012 00999-Kvewbhza Plate 10/16/2011 49436-Awkgusdg Plate 10/25/2011 07968-Hsezwtjt Plate 11/08/2011 95125-Kkztppxa Plate 07/11/2012 31307-Pbblylfu Plate 09/25/2012 11399-Aicjrdnv Plate 08/22/2012 61153-Klbhagso Plate 03/27/2012 59713-Tqsfafia Plate 05/09/2012 86296-Gaarneqt Plate 06/13/2012 53109-Xgtcelhm Plate 05/31/2015 16412-Axnhzmim Plate 07/12/2015 03943-Bgkubnjw Plate 04/19/2015 55934-Prbatgin Plate 02/11/2015 77282-Nqbzaljf Plate 03/04/2014 34119-Ymwgdfqg Plate 11/25/2014 00036-Pwrcrrzt Plate 06/15/2016 59680-Hqfewqas Plate 03/26/2017 38328-Nocspghw Plate 08/06/2017 66665-Zclpymao Plate 05/29/2019 14379-Tbtzwkoo Plate 09/18/2019 86243-Ugeyjqba Plate 07/15/2019 78236-Iwttxhkm Plate 07/08/2020 31244-Rogkfcno Plate 01/11/2021 15779-Sprsuwzq Plate 02/17/2021 53736-Omynxdgs Plate 03/31/2021 93162-Sqszxzfk Plate 06/20/2021 50598-Hrqhwytq Plate 01/16/2022 05498-Pvvuqzkz Plate 11/07/2021 15251-Kgozjwep Plate 04/24/2022 31786-Etjoqdfo Plate Each Additional 18079-Icovdapz Plate Each Additional 10/2021 35384-Uboivrny Plate Each Additional 09/2022 66981-Agcvwsea Plate Each Additional 10677-Grvgkenj Plate Each Additional 04/2021 97144-Oirgmiso Plate Each Additional 11/2019 64054-Xiuzvpvq Plate Each Additional 79901-Xhyyznon Plate Each Additional 04/2012 57862-Owmardwf Plate Each Additional 12/2011 39354-Nunhzfuq Plate Each Additional 67096-Sxuewaqf Plate Each Additional 04/2013 60050- Debride <25 sq cm 02/10/2013 13302- Debride <25 sq cm 12/30/2012 71949- Debride <25 sq cm 11/06/2012 86823- Debride <25 sq cm 05/21/2013 22178- Debride <25 sq cm 04/14/2013 93356- Debride <25 sq cm 12/04/2013 68916- Debride <25 sq cm 04/23/2014 07542- Debride <25 sq cm 05/27/2014 60465- Debride <25 sq cm 07/22/2014 39077- Debride <25 sq cm 08/26/2014 30669- Debride <25 sq cm 10/26/2014 64014- Debride <25 sq cm 06/06/2012 96390- Debride <25 sq cm 03/27/2012 67279- Debride <25 sq cm 06/13/2012 99484- Debride <25 sq cm 08/22/2012 01053- Debride <25 sq cm 09/25/2012 45927- Debride <25 sq cm 08/28/2011 09544- Debride <25 sq cm 07/10/2011 16773- Debride <25 sq cm 02/15/2012 97822- Debride <25 sq cm 12/20/2011 11453- Debride <25 sq cm 11/25/2014 85476- Debride <25 sq cm 01/04/2015 88402- Debride <25 sq cm 02/11/2015 74002- Debride <25 sq cm 03/15/2015 86790- Debride <25 sq cm 04/19/2015 48499- Debride <25 sq cm 07/12/2015 89125- Debride <25 sq cm 01/18/2017 47864- Debride <25 sq cm 09/12/2016 92381- Debride <25 sq cm 05/04/2020 79680- Debride <25 sq cm 01/11/2021 82841- Debride <25 sq cm 10/30/2017 87902- Debride <25 sq cm 07/02/2017 19056- Debride <25 sq cm 09/10/2018 66364- Debride <25 sq cm 05/29/2019 65188- Debride <25 sq cm 02/17/2021 17540- Debride <25 sq cm 03/31/2021 52723- Debride <25 sq cm 06/20/2021 49684- Debride <25 sq cm 11/07/2021 06460- Debride <25 sq cm 08/01/2021 65528- Debride <25 sq cm 11/28/2021 45787- Debride <25 sq cm 06/12/2022 66856- Debride <25 sq cm 04/24/2022 58994- Debride <25 sq cm 03/20/2022 48115- Debride <25 sq cm 09/12/2022 45376- Debride <25 sq cm 11/13/2022 48063- Debride <25 sq cm 01/22/2023 76927- Debride <25 sq cm 10/16/2022 40982- Debride <25 sq cm 07/02/2023 02332-FVQVRGH SKIN/TISSUE 05/22/2024 21097-CMSCARM SKIN/TISSUE 01/15/2014 99353-VKKIDZS SKIN/TISSUE 03/04/2014 77829 I&D ABSCESS- SIMPLE,SINGLE 012 67477 I&D ABSCESS- SIMPLE,SINGLE 013 76776-ZAXW SKIN LESIONS, 2 TO 4 05/22/20 24 04130- Removal of Foreign Body, Subcut 1 39731-Tiblvvqn Benign Lesion 0.5cm 11/08 70003-Cavcwxgf Benign Lesion 0.5cm 10/25- Ganglion Cyst Injection/Aspiratio n 01/18/2012- Ganglion Cyst Injection/Aspiratio n 07/02/2017 Future Test Test Name Order Date 02384-Gigfflfk Plate Each Additional Insurance Providers Payer Name Payer Address Payer Phone Subscriber Number Group Number Insured Name Patient Relationship to Insured Coverage Start Date Coverage End Date Medicare National Govt Svcs Inc [address] [place] [address] [id number] Shreya Calvert Self - patient is the insured 1 [employer] Blue Shield [address] [place] [address] [id number] Shreya Calvert Self - patient is the [...] Rehab 05/2024 [facility], rehab- leg swelling 05/2023 [facility] fell down 02/2023 [facility] ran over by scooter 02/2023 [facility] heart issues 08/2022 MM Cellulitis 07/2022 [facility] heart issues 03/2022 [facility]- cellulitis, day stay, 3 week therap y 01/2022 [facility], rehab- fell 05/2021 [facility] for cellulitis for 5 days 9 [facility] fall 05/05/18 [facility] 2015 [place] [facility], tripped bumped head 08/2015 Admitted to [facility] overnight;GERD 03/2015 [facility] - Emergency 11/23/14 & 11/24 Dehydration 11/2011
[2025-09-17 07:35] LABS: Alanine Aminotransferase 14 U/L (0-31); Albumin Level 3.6 g/dL (3.5-5.0); Alkaline Phosphatase 86 U/L (39-117); Aspartate Amino Transferase 20 U/L (5-31); Total Protein 6.0 g/dL (6.5-8.0)
[2025-09-17 07:50] LABS: Thyroid Stimulating Hormone 10.62 uIU/mL (0.32-4.0)
== END 2025-09-17 06:48 | disposition home or self-care (01) ==
LOC: HO.MMNH3L 06:47
PROVIDERS: Visit Provider Physician Assistant Medical
DX: E11.22 Type 2 diabetes mellitus with diabetic chronic kidney disease (principal); N18.9 Chronic kidney disease, unspecified; G93.41 Metabolic encephalopathy
CPT/HCPCS: 36415; 80076; 84443

== ENCOUNTER 2025-09-21 10:00 | Outpatient (REF) | payer MEDICARE, MEDICAID, SELFPAY ==
[2025-09-21 16:26] LABS: CDiff Gene PCR NEGATIVE (Negative)
[2025-09-21 18:12] LABS: Appearance Urine Turbid; Glucose Urine UA Negative (Negative); PH 5.5 (5.0-9.0); Specific Gravity - Urine 1.025 (1.005-1.025); UMIC TRIGGER UA YES
--- OUTSIDE RECORDS SUMMARY | 2025-09-21 19:19 | XMS_ITS | Clinical Summary ---
Author Organization 175 [facility] Address [address] [place] [address] Phone Care Team Providers Care Dry Cell Sealer Name Role Phone Rex Bass MD Primary Care Provider [phone] Allergies Active Allergy Reactions Criticality Noted Date [...] Compression fracture of L1 l umbar vertebra ([facility] V24, [facility] V28) DX:Compression fra cture of L1 lumbar vertebra ([facility]); COMMENT: and t12 vertebra Degeneration macular DX:Degenera tion macular Depression DX:Depression Diabetes type 2, controlled ([facility] V24, [facility] V28) DX:Diabetes type 2, controll ed ([facility]) Diverticulitis DX:Diverticuliti s Elevated LFTs DX:Elevated LFTs [...] 2 obesi ty Osteoporosis DX:Osteoporosis Primary hyperparathyroidism ([facility] V24) DX:Primary hyperparathyroidi sm ([facility]) Recurrent falls DX:Recurrent fal ls Restless legs [...] patient's age to complete this topic Insurance [facility] MEDICAID - [place] MEDICARE Advance Directives Documents on File Type Date Recorded Patient Dealer Analyst Expl anation Health Care Decision (hx) 09/26/2023 AD FARNSWORTH DIRECTIVE Health Care Decision (hx) 05/09/2021 AD FARNSWORTH DIRECTIVE Health Care Decision (hx) 05/09/2021 AD FARNSWORTH DIRECTIVE Care Teams Dry Cell Sealer Relationship Specialty Start Date End Date Rex Bass MD [address], [phone] PCP - General 04/23/24
--- OUTSIDE RECORDS SUMMARY | 2025-09-21 19:19 | XMS_ITS | Data Portability ---
Author Organization [facility] Pain Managem ent, PAIN OFFICE Address [address] [place] [address] Care Team Providers Care Precision Lens Technician Name Role Phone ABAD GONSALES Primary Care Provider GUILHERME DIAZ Referring Provider [phone] Assessment Encounter Date Assessment Date Assessment LastModified [...] appointment has been booked. She needs a rental car ferry driver on the day of the procedure. [...] By Organization Details Last Modified Time 06/26/2021 [id number] She was advised against bed rest lasting longer than four days and to continue activities as tolerated. [email or web address] Not available 06/30/2021 10:01:24 07/11/2021 [id number] She was advised to continue with activities as tolerated [email or web address] Not available 07/11/2021 13:35:39 10/04/2021 [id number] She was advised to continue with activities as tolerated [email or web address] Not available 10/04/2021 11:55:19 12/12/2021 [id number] She was advised to continue with activities as tolerated [email or web address] Not available 12/12/2021 12:09:37 08/21/2022 [id number] She was advised to continue with activities as tolerated [email or web address] Not available 08/21/2022 10:34:48 Reason for Referral None Reported. Problems Name Problem SNOMED Code Status Onset Date Resolution Date Notes Provider Name and Address Organization Details Recorded Time Post-herpetic neuritis [id number] Gris adams MD [address] [place] [address] , [address], [facility] [place], [address] [facility] [place] [facility] 9 14:56:27 Inflammation of joint of shoulder region [id number] Gris adams, MD [address] , [address], [place], [address], [place] [facility] 9 09:39:04 Spinal stenosis of lumbar region 02667366 Active 2016 Alf adams MD [address] , [address], [place], [address], [place] [facility] 7 10:55:25 Lumbosacral spondylosis without myelopathy 61999567 Active 2016 Alf adams MD [address] , [address], [place], [address], [place] [facility] 7 10:55:26 Lumbosacral radiculitis 63221228 Active 2016 Alf adams MD [address] , [address], [place], [address], [place] [facility] 7 10:55:27 Displacement of lumbar intervertebral disc without myelopathy 64554650 Active 2016 Alf adams MD [address] , [address], [place], [address], [place] [facility] 7 10:55:30 Problem Notes None recorded. Procedures Surgical History Date Name Laterality Status Provider Name and Address Organization Details Recorded Time 08/21/20 22 Lumbar Epidural steroid injection under fluoroscopic guidance completed Alf Posada MD [address] , [address], [place], [address], [place] [facility] 08/21/2022 10:36:53 12/13/19 22 Lumbar Epidural steroid injection under fluoroscopic guidance completed Alf Posada MD [address] , [address], [place], [address], [place] [facility] 12/12/2021 12:09:46 10/04/20 21 Lumbar Epidural steroid injection under fluoroscopic guidance completed Alf Posada MD [address] , [address], [place], [address], [place] [facility] 10/04/2021 11:55:59 07/11/20 21 Lumbar Epidural steroid injection under fluoroscopic guidance completed Alf Posada MD [address] , [address], [place], [address], [place] [facility] 07/11/2021 13:35:45 04/11/20 21 Lumbar Epidural steroid injection under fluoroscopic guidance completed Alf Posada MD [address] , [address], [place], [address], [place] [facility] 04/11/2021 13:56:00 01/11/20 21 Lumbar Epidural steroid injection under fluoroscopic guidance completed Alf Posada MD [address] , [address], [place], [address], [place] [facility] 01/12/2021 09:57:53 09/06/20 20 Lumbar Epidural steroid injection under fluoroscopic guidance completed Alf Posada MD [address] , [address], [place], [address], [place] [facility] 09/08/2020 14:56:36 06/15/20 20 Lumbar Epidural steroid injection under fluoroscopic guidance completed Alf Posada MD [address] , [address], [place], [address], [place] [facility] 06/15/2020 14:00:13 05/23/20 20 Intra-articular shoulder steroid injection under ultrasound guidance completed Alf Posada MD [address] , [address], [place], [address], [place] [facility] 05/23/2020 15:11:49 05/11/20 19 Intra-articular shoulder steroid injection under ultrasound guidance completed Alf Posada MD [address] , [address], [place], [address], [place] [facility] 05/11/2019 09:43:25 03/31/20 19 Lumbar Epidural steroid injection under fluoroscopic guidance completed Alf Posada MD [address] , [address], [place], [address], [place] [facility] 03/31/2019 18:50:07 01/08/20 19 Fluoroscopic Guided Lumbar Facet Steroid Injections of levels completed Alf Posada MD [address] , [address], [place], [address], [place] [facility] 01/08/2019 15:03:53 09/17/20 17 Fluoroscopic Guided Lumbar Facet Steroid Injections of levels completed Alf Posada MD [address] , [address], [place], [address], [place] [facility] 09/17/2017 10:08:58 08/07/20 17 Fluoroscopic Guided Lumbar Facet Steroid Injections of levels completed Alf Posada MD [address] , [address], [place], [address], [place] [facility] 08/07/2017 10:36:11 05/08/20 17 Lumbar Epidural steroid injection under fluoroscopic guidance completed Alf Posada MD [address] [facility] , [address], [place], [address], [place] [facility] 05/08/2017 10:54:37 Joint Replacement completed Fayechris Sotoer [place] [facility] 03/14/2017 14:36:04 Cholecystectomy completed Fayechris Sotoer [place] [facility] 03/14/2017 14:36:22 Back Surgery completed Alf Posada MD [address] , [address], [place], [address], [place] [facility] 04/02/2017 [...] completed Not Available Not Available Not Available [employer] Ultra Test strips TESTS DAILY FOR DM, [...] Not Available No t Available Fluzone High-Dose 3607-0568 (PF) 180 mcg/0.5 mL intramuscul ar syringe TO BE ADMINISTE RED BY PHARMACIS T FOR IMMUNIZAT ION 08/07 completed Not Available Not Available Not Available Fluzone High-Dose 6124-0675 (PF) 180 mcg/0.5 mL intramuscul ar syringe [...] Last Updated DateTime 160.02 cm 34.7 kg/m2 91644.1 g 58 /min 98 % 6 144/56 mm[Hg] Alf adams MD [address] [facility] , [address], [place], [address], [place] [facility] 15:24:19 [...] Smoker Quit x 20 years Not Available [facility] 07/22/2020 03:16:10 Which Illicit Or Recreational Drugs Have You Used? NO [id number] Information not available 07/22/2020 Education 12 With Some College Information not available 03/14/2017 Live Alone Or With Others? Alone Information not available 03/14/2017 Marital Status [email or web address] Informatio n not available 03/14/2017 What Was The Date Of Your Most Recent Tobacco Screening? 03/31/2019 [id number] Information not available 07/22/2020 How Many Years Have You Smoked Tobacco? 20 [id number] Information not available 07/22/2020 Sex: Unknown Functional Status Question Answer Note LastModified by Organization D etails LastModified Time What is your level of alcohol consumption? Moderate [id number] Information not available 07/22/2020 Are you currently employed? No [id number] Information not available 07/22/2020 Mental Status None [...] ICD10 Code Diagnosis IMO Codes Diagnosis Note [id number] Alf Posada MD PAIN OFFICE [address] [place] [address] 03/14/2017 13:22:16 03/14/2017 15:44:04 Spinal stenosis of lumbar region 64326384 M48.06 Lumbosacra l spondylosis without myelopathy 39422629 M47.817 Lumbosacra l radiculitis 69837786 M54.17 Displaceme nt of lumbar intervertebral disc without myelopathy 14351585 M51.26 [id number] Alf Posada MD PAIN OFFICE [address] [place] [address] 05/08/2017 09:51:37 05/09/2017 14:08:37 Spinal stenosis of lumbar region 06306803 M48.06 Lumbosacra l spondylosis without myelopathy 88960950 M47.817 Lumbosacra l radiculitis 98686970 M54.17 Displaceme nt of lumbar intervertebral disc without myelopathy 43511191 M51.26 [id number] Alf Posada MD PAIN OFFICE [address] [facility] [place] [address] 06/14/2017 10:36:32 06/17/2017 09:50:43 Spinal stenosis of lumbar region 36191743 M48.06 Lumbosacra l spondylosis without myelopathy 37114520 M47.817 Lumbosacra l radiculitis 26323522 M54.17 Displaceme nt of lumbar intervertebral disc without myelopathy 91793262 M51.26 [id number] Alf Posada MD SV PAIN OFFICE [address] [facility] [place] [address] 08/07/2017 10:01:00 08/07/2017 15:19:24 Spinal stenosis of lumbar region 37492462 M48.062 Lumbosacra l spondylosis without myelopathy 88500494 M47.817 Lumbosacra l radiculitis 85180752 M54.17 Displaceme nt of lumbar intervertebral disc without myelopathy 89222366 M51.26 [id number] Alf Posada MD PAIN OFFICE [address] [employer] [employer] [address] [facility] [place] [address] 09/05/2017 10:11:57 09/05/2017 19:46:07 Spinal stenosis of lumbar region 57909024 M48.062 Lumbosacra l spondylosis without myelopathy 91042046 M47.817 Lumbosacra l radiculitis 08871728 M54.17 Displaceme nt of lumbar intervertebral disc without myelopathy 55360554 M51.26 [id number] Alf Posada MD PAIN OFFICE [address] [employer] [place] [address] 09/17/2017 09:13:54 09/19/2017 09:09:31 Spinal stenosis of lumbar region 92432578 M48.062 Lumbosacra l spondylosis without myelopathy 83428044 M47.817 Lumbosacra l radiculitis 77875474 M54.17 Displaceme nt of lumbar intervertebral disc without myelopathy 65373838 M51.26 25554 Alf Posada MD PAIN OFFICE [address] [facility] [place] [address] 12/25/2018 11:24:23 12/25/2018 16:12:18 Spinal stenosis of lumbar region 21662055 M48.061 Lumbosacra l spondylosis without myelopathy 80359847 M47.817 Lumbosacra l radiculitis 71191451 M54.17 Displaceme nt of lumbar intervertebral disc without myelopathy 98110331 M51.26 72004 Alf Posada MD PAIN OFFICE [address] [employer] [employer] [employer] [address] [place] [address] 01/07/2019 09:10:35 01/08/2019 15:11:02 Spinal stenosis of lumbar region 21684688 M48.062 Lumbosacra l spondylosis without myelopathy 60364585 M47.817 Lumbosacra l radiculitis 57432587 M54.17 Displaceme nt of lumbar intervertebral disc without myelopathy 68321959 M51.26 76794 Alf Posada MD PAIN OFFICE [address] [facility] [place] [address] 02/04/2019 14:13:14 02/04/2019 16:10:53 Post-herpetic neuritis 718527616 B02.29 Spinal linda nosis of lumbar region 91897346 M48.061 Lumbosacra l spondylosis without myelopathy 39957035 M47.817 Lumbosacra l radiculitis 43889973 M54.17 Displaceme nt of lumbar intervertebral disc without myelopathy 72999125 M51.26 57883 Alf Posada MD PAIN OFFICE [address] [facility] [place] [address] 03/31/2019 09:49:03 03/31/2019 18:56:55 Spinal stenosis of lumbar region 91289838 M48.061 Lumbosacra l spondylosis without myelopathy 51858699 M47.817 Lumbosacra l radiculitis 06845924 M54.17 Displaceme nt of lumbar intervertebral disc without myelopathy 61746962 M51.26 01257 Alf Posada MD PAIN OFFICE [address] [facility] [place] [address] 05/11/2019 08:51:59 05/11/2019 09:45:44 Inflammation of joint of shoulder region 656387513 M13.819 Spinal linda nosis of lumbar region 89105441 M48.061 29805 Alf Posada MD PAIN OFFICE [address] [facility] [place] [address] 12/14/2019 13:40:03 12/14/2019 16:14:01 Spinal stenosis of lumbar region 28289060 M48.061 Lumbosacra l spondylosis without myelopathy 48100549 M47.817 Lumbosacra l radiculitis 14718371 M54.17 Displaceme nt of lumbar intervertebral disc without myelopathy 20226189 M51.26 28089 Alf Posada MD PAIN OFFICE [address] [place] [address] 02/12/2020 11:36:11 02/15/2020 12:09:29 Spinal stenosis of lumbar region 26567304 M48.061 Lumbosacra l spondylosis without myelopathy 49030034 M47.817 Lumbosacra l radiculitis 29323397 M54.17 Displaceme nt of lumbar intervertebral disc without myelopathy 51866715 M51.26 [id number] Alf Posada MD PAIN OFFICE [address] [place] [address] 05/13/2020 08:29:14 05/13/2020 09:22:37 Inflammation of joint of shoulder region 598314990 M13.819 Spinal linda nosis of lumbar region 32758532 M48.061 59312 Alf Posada MD PAIN OFFICE [address] [place] [address] 05/23/2020 12:46:33 05/23/2020 15:14:52 Inflammation of joint of shoulder region 920946577 M13.819 Spinal linda nosis of lumbar region 10406659 M48.061 04371 Alf Posada MD PAIN OFFICE [address] [place] [address] 06/15/2020 10:54:32 06/15/2020 14:04:50 Inflammation of joint of shoulder region 275002049 M13.819 Spinal linda nosis of lumbar region 72438878 M48.061 Lumbosacra l spondylosis without myelopathy 95479273 M47.817 Lumbosacra l radiculitis 72067061 M54.17 Displaceme nt of lumbar intervertebral disc without myelopathy 50723533 M51.26 04374 Alf Posada MD PAIN OFFICE [address] [place] [address] 07/13/2020 08:30:09 07/13/2020 11:05:07 Inflammation of joint of shoulder region 109796213 M13.819 Spinal linda nosis of lumbar region 18465712 M48.061 18871 Alf Posada MD PAIN OFFICE [address] [place] [address] 09/06/2020 10:30:56 09/08/2020 15:55:16 Inflammation of joint of shoulder region 245811074 M13.819 Spinal linda nosis of lumbar region 90709346 M48.061 Lumbosacra l spondylosis without myelopathy 51117504 M47.817 Lumbosacra l radiculitis 90572321 M54.17 Displaceme nt of lumbar intervertebral disc without myelopathy 18225366 M51.26 61035 Alf Posada MD PAIN OFFICE [address] [place] [address] 11/07/2020 08:59:33 11/07/2020 09:55:18 Spinal stenosis of lumbar region 07553560 M48.061 Lumbosacra l spondylosis without myelopathy 43826099 M47.817 Lumbosacra l radiculitis 66316791 M54.17 Displaceme nt of lumbar intervertebral disc without myelopathy 79248838 M51.26 73415 Alf Posada MD PAIN OFFICE [address] [place] [address] 01/10/2021 13:47:25 01/12/2021 10:00:57 Inflammation of joint of shoulder region 444136006 M13.819 Spinal linda nosis of lumbar region 57566245 M48.061 Lumbosacra l spondylosis without myelopathy 06668075 M47.817 Lumbosacra l radiculitis 73555761 M54.17 Displaceme nt of lumbar intervertebral disc without myelopathy 47360994 M51.26 50178 Alf Posada MD PAIN OFFICE [address] [place] [address] 02/16/2021 08:44:41 02/16/2021 10:52:14 Spinal stenosis of lumbar region 27256660 M48.061 Lumbosacra l spondylosis without myelopathy 36414313 M47.817 Lumbosacra l radiculitis 99383223 M54.17 Displaceme nt of lumbar intervertebral disc without myelopathy 19697199 M51.26 47697 Alf Posada MD PAIN OFFICE [address] [place] [address] 04/11/2021 13:21:59 04/11/2021 14:01:08 Spinal stenosis of lumbar region 09223100 M48.061 Inflammati on of joint of shoulder region 726311494 M13.819 Lumbosacra l spondylosis without myelopathy 07099731 M47.817 Lumbosacra l radiculitis 42931412 M54.17 Displaceme nt of lumbar intervertebral disc without myelopathy 84201289 M51.26 19868 Alf Posada MD PAIN OFFICE [address] [place] [address] 06/26/2021 15:22:32 06/30/2021 10:03:11 Spinal stenosis of lumbar region 48195857 M48.061 Lumbosacra l spondylosis without myelopathy 59999348 M47.817 Lumbosacra l radiculitis 17105937 M54.17 Displaceme nt of lumbar intervertebral disc without myelopathy 77208440 M51.26 72332 Alf Posada MD PAIN OFFICE [address] [place] [address] 07/11/2021 12:54:52 07/11/2021 13:38:15 Spinal stenosis of lumbar region 04698111 M48.061 Inflammati on of joint of shoulder region 269063641 M13.819 Lumbosacra l spondylosis without myelopathy 85423831 M47.817 Lumbosacra l radiculitis 41092866 M54.17 Displaceme nt of lumbar intervertebral disc without myelopathy 62466096 M51.26 83614 Alf Posada MD PAIN OFFICE [address] [place] [address] 10/04/2021 10:46:49 10/04/2021 12:00:47 Spinal stenosis of lumbar region 79286965 M48.061 Inflammati on of joint of shoulder region 197685225 M13.819 Lumbosacra l spondylosis without myelopathy 79879011 M47.817 Lumbosacra l radiculitis 22066421 M54.17 Displaceme nt of lumbar intervertebral disc without myelopathy 49394207 M51.26 21367 Alf Posada MD PAIN OFFICE [address] [place] [address] 12/12/2021 11:17:23 12/12/2021 14:28:00 Spinal stenosis of lumbar region 13257748 M48.061 Inflammati on of joint of shoulder region 093090797 M13.819 Lumbosacra l spondylosis without myelopathy 41263887 M47.817 Lumbosacra l radiculitis 06510801 M54.17 Displaceme nt of lumbar intervertebral disc without myelopathy 31993264 M51.26 39361 Alf Posada MD PAIN OFFICE [address] [place] [address] 08/21/2022 10:05:44 08/21/2022 11:05:40 Spinal stenosis of lumbar region 63678334 M48.061 Inflammati on of joint of shoulder region 298432512 M13.819 Lumbosacra l spondylosis without myelopathy 56333835 M47.817 Lumbosacra l radiculitis 45903395 M54.17 Displaceme nt of lumbar intervertebral disc without myelopathy 48947388 M51.26 Degenerati on of lumbar intervertebral disc 56255226 M51.36 Health Concerns Section Related Observation LastModified by Organization Detai ls LastModified Time None Recorded Concern Status LastModified by Organization Details LastModified Time None Recorded Advance Directives Directive None Recorded Payers Insurance Date Sequence Insurance Name Policy Number Policy Anders Covered Member ID Anders Member ID Guarantor Name 12/15/2022 1 [place] [employer] Shreya M Gravel [id number] Shreya Gravel 12/15/2022 2 [place] [id number] Shreya Gravel [id number] Shreya Calvert Notes Date Note Type [...] or bowel incontinence. Alf Posada MD [address] [facility] , [address], [place], [address], [place] [facility] 07/10/2021 08:52:57 07/11/2021 text/html She is here for a lumbar epidural steroid injection under fluoroscopic guidance. Alf Posada MD [address] [facility] , [address], [place], [address], [place] [facility] 07/12/2021 09:01:37 10/04/2021 text/html She is here for a lumbar epidural steroid injection under fluoroscopic guidance. Alf Posada MD [address] [facility] , [address], [place], [address], [place] [facility] 10/04/2021 12:48:56 12/12/2021 text/html She is here for a lumbar epidural steroid injection under fluoroscopic guidance. Alf Posada MD [address] [facility] , [address], [place], [address], [place] [facility] 12/12/2021 16:13:18 08/21/2022 text/html She is here for a lumbar epidural steroid injection under fluoroscopic guidance. She has stopped eliquis and pletal as instructed for the procedure. Alf Posada MD [address] [facility] , [address], [place], [address], [place] [facility] 08/22/2022 08:44:58 OBGyn Episode No OBEpisode recorded.
--- OUTSIDE RECORDS SUMMARY | 2025-09-21 19:19 | XMS_ITS | Data Portability ---
Author Organization [facility] RegisterPatient [facility], Main Office Address [address] [facility] [facility] [place] [address] Care Team Providers Care Senior Salesforce Developer Name Role Phone DARRIN STYLES 3RD FLOOR [...] and Address Organization Details Recorded Time Cystitis 12693086 Active 2023 FRIEDA ANDERSON [address] [facility], [address], [place], [address], [facility] RegisterPatient [facility] 4 14:00:02 Falls [id number] Active 2023 FRIEDA ANDERSON [address] [facility], [address], [place], [address], [facility] [employer] [facility] 4 14:00:38 Pain of right wrist 3919612587643 00 Active 2023 FRIEDA ANDERSON [address] , [address], [place], [address], [facility] 4 14:00:56 Peripheral venous insufficien cy 66367428 Active 2023 CARLTON MINA, DYNAMO TENDER [address], [address], [place], [address], [place] [facility] 4 14:01:26 Chronic diastolic heart failure 387701442 Active 2023 CARLTON MINA, DYNAMO TENDER [address], [address], [place], [address], [place] [facility] 4 14:01:46 Type 2 diabetes mellitus 88760031 Active 2023 CARLTON MINA, [facility] [address], [address], [place], [address], [place] [facility] 4 14:01:55 Paroxysmal atrial flutter 763661331 Active [address] MP ANDERSONP [address], [address], [place], [address], [place] [facility] 4 14:02:21 Restless legs syndrome 56447966 Active 2023 MP ANDERSONP [address], [address], [place], [address], [place] [facility] 4 14:02:38 Chronic obstructive pulmonary disease 75157514 Active 2023 FRIEDA ANDERSON [address], [address], [place], [address], [place] [facility] 4 14:02:49 Anemia of chronic disease 067236376 Active 2023 FRIEDA ANDERSON [address], [address], [place], [address], [place] [facility] 4 14:02:59 Mixed anxiety and depressive disorder 135432824 Active 2023 CARLTON MINA, DYNAMO TENDER [address], [address], [place], [address], [place] - [facility] 4 14:17:43 Chronic kidney disease 277912448 Active 2023 MP ANDERSONP [address], [address], [place], [address], [place] [facility] 4 14:19:41 Hyperlipide nena 34611467 Active 2023 FRIEDA ANDERSON [address], [address], [place], [address], [facility] 4 14:26:52 Gastroesoph ageal reflux disease 040647782 Active 2023 FRIEDA ANDERSON [address], [address], [place], [address], [facility] 4 14:27:49 Chronic back pain 158732737 Active 2023 FRIEDA ANDERSON [address], [address], [place], [address], [facility] 4 14:40:47 Vitamin D deficiency 17436115 Active 2023 FRIEDA ANDERSON [address], [address], [place], [address], [facility] 4 19:41:46 Bradycardia 87237101 Active 2023 FRIEDA ANDERSON [address], [address], [place], [address], [facility] 4 19:44:32 Asthenia 61663563 Active 2023 FRIEDA ANDERSON [address], [address], [place], [address], [facility] 4 19:53:05 Bleeding from nose 904141555 Active 2023 FRIEDA ANDERSON [address], [address], [place], [address], [facility] 4 15:36:07 Osteomyelit is 89274967 Active 2023 Naomi Todd MD [address], [address], [place], [address], [facility] 4 17:53:51 Headache 80849970 Active 2023 WISAM SILVA NP [address], [address], [place], [address], [place] [facility] 4 09:49:14 Essential hypertensio n 32925259 Active 2024 Rex Bass MD [address] [place] [address], [address], [place], [address], [facility] 5 09:46:16 Problem Notes None recorded. Medical Equipment None Reported. Allergies Allergen ID Allergen Name Allergen Category Reaction Reaction Severity Criticality Documentation Date Start Date Code Code System Note Provider Name and Address Organization Details Recorded Time 41860 lisinopri l medicatio n Not available Not available Not available 10/22/2023 47819 RxNorm Naomi Todd MD [address] [place] [address], [facility] [address], [place], [address], [facility] 4 17:53:46 Medications Name Sig Start Date [...] 165.1 cm 129/73 mm[Hg] Rex Bass MD [address] [place] [address], [address], [place], [address], [facility] 11/25/2024 11:53:24 Date Recorded Body height Body temperature Heart rate Respiratory rate Systolic And Diastolic Provider Name and Address Organization Details Last Updated DateTime 5 165.1 cm 97.4 [degF] 84 /min 18 /min 142/70 mm[Hg] Rex Bass MD [address] [place] [address], [address], [place], [address], [facility] 5 09:39:14 Date Recorded Body height Body temperature Respiratory rate Oxygen saturation Systolic And Diastolic Provider Name and Address Organization Details Last Updated DateTime 5 165.1 cm 97.9 [degF] 18 /min 97 % 130/70 mm[Hg] FRIEDA ANDERSON [address] [facility], [address], [place], [address], [facility] RegisterPatient [facility] 18:58:17 Social History Question Answer Notes LastModified by Organizat ion Details LastModified Time Tobacco Smoking Status Former Smoker quit 30 yrs ago FRIEDA ANDERSON [address] , [address], [place], [address], [facility] 10/24/2023 14:39:11 Do You Have An Advance Directive? Yes Information not available 10/24/2023 What Is Your Level Of Caffeine Consumption? Occasional Information not available 10/24/2023 What Is Your Code Status? DNR/DNI Information not available 10/24/2023 [facility], Had Been Living At [facility] [place] Information not available 04/13/2024 Legal Guardian? No Informati on not available 10/24/2023 Do You Have A Medical Power Of Account Services Coordinator? Yes Information not available 10/24/2023 What Was [...] Recorded Time Tdap 2 completed Flor Luna [facility] 12/27/2023 11:11:29 Pneumococcal conjugate PCV 13 7 completed Flor Luna [facility] 12/27/2023 11:11:41 Influenza, adjuvanted, quadrivalent, PF 3 completed Flor Luna [facility] 12/27/2023 11:11:59 COVID-19, mRNA, LNP-S, bivalent, PF, 30 mcg/0.3 mL dose 1 completed Florgwen Luna [facility] 12/27/2023 11:12:12 COVID-19, mRNA, LNP-S, bivalent, PF, 30 mcg/0.3 mL dose 1 completed Flor Jeremy [facility] 12/27/2023 11:12:20 COVID-19, mRNA, LNP-S, bivalent, PF, 30 mcg/0.3 mL dose 1 completed Florgwen Luna [facility] 12/27/2023 11:12:29 COVID-19, mRNA, LNP-S, bivalent, PF, 30 mcg/0.3 mL dose 2 completed Flor Jeremy [facility] 12/27/2023 11:12:48 Past Encounters Encounter ID Performer Location Encounter Start Date Encounter Closed Date Diagnosis/Indication Diagnosis SNOMED-CT Code Diagnosis ICD10 Code Diagnosis IMO Codes Diagnosis Note [id number] FRIEDA ANDERSON [address] [facility] [place] [address] 10/23/2023 08:21:08 10/28/2023 15:39:59 Cystitis 86353655 N30.90 With MDROInitia lly with Vanco and cefepime however cultures growing MDRO Klebsiella Started meropenem 1 g q12 for 7 days.start ed 10/19 for 7 full days of treatment to end 10/26.probi otic added Falls 392865864 R29.6 likely multifacto rial from neuropathy , frailty, arthritis and LE edemaCT negative for any fractures. CT Head/Brain W/O Contrast negativeIn itiated safety precaution per facility protocolPT /OT eval and tx. Peripheral venous insufficiency 97698789 I87.2 Venous insufficie ncy of both lower extremitie sDoppler LLE no DVT, symmetric erythema without increased warmth or tenderness , appears similar to previous picture taken, low suspicion for superimpos ed cellulitis Chronic di astolic heart failure 283057835 I50.32 preserved EFeuvolemi ctorsemide held in acute care d/t hypotensio n and bradycardi c 50'smonito r BP and need to restartmon itor weights Chronic ob structive pulmonary disease 12108662 J44.9 Albuterol Sulfate Nebulizati on Solution (2.5 MG/3ML) Q6 prnAdvair Wfveww735- 50 mcg Q12 Restless l egs syndrome 71654895 G25.81 ROPINIRole HCl Tablet 2 MG BID Type 2 jr betes mellitus 67080466 E11.21 continue monitor glucose,Li spro SSI coverageGa bapentin Capsule 300 MG at bedtime for neuropathy pain.trama dol 25 mg q12 prn Paroxysmal atrial flutter 022477092 I48.92 not on anticoagAm iodarone HCl Tablet 200 MG dailymonit or HR Mixed anxi ety and depressive disorder 458131809 F41.8 Escitalopr am Oxalate Tablet 30 mg dailymonit or for mood and behavorial changes. Anemia of chronic disease 673901173 D63.8 Ferrous Sulfate Tablet 325 dailymonit or labs prn Hyperlipidemia 93806600 E78.5 Atorvastat in 20 mg dailymonit or labs Gastroesop hageal reflux disease 836719246 K21.9 Pantoprazo le40 mg dailymonit or for gi upset. Chronic back pain 508336 002 G89.29 tramadol 25 mg Q12 prngabapen tin 300 mg at hs Vitamin D deficiency 347 61983 E55.9 Cholecalci ferol 2000 UNIT daily Pain of right wrist 3169 909480 10666 M25.531 x-ray was ordered which was negative.P T/OT eval and tx Bradycardia 41442640 R00 .1 in acute care HR as low as 40snormal MD/QRS/QTc prolongati on..T nonspecifi c isolated T wave inversions on single lead V2 were present on recent study from 07/19/2023 . No evidence of acute ischemic changes. Chronic ki dney disease 211760611 N18.9 Renal function is at baselinemo nitor labsavoid nephrotoxi c drugs Asthenia 68090886 R53.1 hx of multiple fallsambul ates with walkerPT/O T eval and treat [id number] Naomi Todd MD [address] [place] [address] 10/24/2023 16:17:28 11/06/2023 11:12:59 Cystitis 24951811 N30.00 Continue meropenem 1 g q 12 hrs to complete 7 d course on 10/26.Monit or for recurrent sxs. Falls 279681509 R29.6 Likely multifacto rial from neuropathy , frailty, arthritis and LE edemaVery deconditio christoph.Needs PT/OT for strengthen ing, balance, gait training, safety and function.C ontinue fall precaution s.Monitor for safety. Peripheral venous insufficiency 43112848 I87.2 Almost at baseline per pt.Continu e local care and elevation. Chronic di astolic heart failure 606458832 I50.32 Appears euvolemic. Monitor for need for diuretics. Monitor resp. status, fluid status, wts and labs. Chronic ob structive pulmonary disease 54741871 J43.8 No current sxs.Contin ue Advair 250/50 BID and albuterol nebs q 6 hrs prnMonitor resp status. Restless l egs syndrome 26828311 G25.81 Continue ropinirole 2 mg BIDMonitor sxs. Type 2 jr betes mellitus 56204192 E11.21 Diet controlled .Sugar <150 yest, not checked previously .Continue gabapentin 300 MG qhs and tramadol q 12 hrs prn for neuropathy Monitor fingerstic ks BID x 1 wk with SSI, d/c if not needing coverage. Paroxysmal atrial flutter 841798477 I48.92 Rate in good control on amiodarone 200 mg qdNot on AC due to age and fall riskMonito r HR Mixed anxi ety and depressive disorder 107771912 F41.8 Mood down today due to concerns about living situation. Continue escitalopr am 30 mg qdMonitor mood.Consu lt psych prn Anemia of chronic disease 053411416 D63.8 Continue FeSO4 325 mg qd with vitamin C 250 mg qd for absorption .Monitor labs Hyperlipidemia 94592309 E78.49 Continue atorvastat in 20 mg qdMonitor labs yearly Gastroesop hageal reflux disease 721479911 K21.9 No current sxs.Contin ue pantoprazo le 40 mg qdMonitor sxs Chronic ki dney disease 049470715 N18.9 In hx, but renal function WNL yest.Cindy nue to avoid nephrotoxi c meds as able.Monit or labs.Renal consult prn. Chronic back pain 312816 002 G89.29 Continue tramadol 25 mg q 12 hrs prn and gabapentin 300 mg qhsMonitor sxs. [id number] FRIEDA ANDERSON [address] [place] [address] 10/29/2023 07:42:54 11/01/2023 08:26:34 Cystitis 70823160 N30.90 With MDROInitia lly with Vanco and cefepime however cultures growing MDRO Klebsiella Started meropenem 1 g q12 for 7 days.start ed 10/19 for 7 full days of treatment to end 10/26.- completed denies any dysuriapro biotic added [place] 677403531 R29.6 continue to work with PT/OT for strengthen inglikely multifacto rial from neuropathy , frailty, arthritis and LE edemaCT negative for any fractures. CT Head/Brain W/O Contrast negativeIn itiated safety precaution per facility protocol Peripheral venous insufficiency 06825222 I87.2 BLE edema left greater than right Venous insufficie ncy of both lower extremitie sDoppler LLE no DVT, symmetric erythema without increased warmth or tenderness , appears similar to previous picture taken, low suspicion for superimpos ed cellulitis Chronic di astolic heart failure 991940967 I50.32 preserved EFeuvolemi ctorsemide held in acute care d/t hypotensio n and bradycardi c 50'smonito r BP and need to restartmon itor weights Chronic ob structive pulmonary disease 80150104 J44.9 Albuterol Sulfate Nebulizati on Solution (2.5 MG/3ML) Q6 prnAdvair Jqihjj249- 50 mcg Q12 Restless l egs syndrome 54994208 G25.81 ROPINIRole HCl Tablet 2 MG BID Type 2 jr betes mellitus 06241405 E11.21 continue monitor glucose,Li spro SSI coverageGa bapentin Capsule 300 MG at bedtime for neuropathy pain.trama dol 25 mg q12 prn Paroxysmal atrial flutter 985468393 I48.92 not on anticoagAm iodarone HCl Tablet 200 MG dailymonit or HR Mixed anxi ety and depressive disorder 405344765 F41.8 Escitalopr am Oxalate Tablet 30 mg dailymonit or for mood and behavorial changes. Anemia of chronic disease 170096676 D63.8 Ferrous Sulfate Tablet 325 dailymonit or labs prn Hyperlipidemia 92758313 E78.5 Atorvastat in 20 mg dailymonit or labs Gastroesop hageal reflux disease 343292542 K21.9 Pantoprazo le40 mg dailymonit or for gi upset. Chronic back pain 461658 002 G89.29 tramadol 25 mg Q12 prngabapen tin 300 mg at hs Vitamin D deficiency 347 09545 E55.9 Cholecalci ferol 2000 UNIT daily Pain of right wrist 3169 554280 86634 M25.531 x-ray was ordered which was negative.P T/OT eval and tx Bradycardia 49447792 R00 .1 in acute care HR as low as 40snormal MD/QRS/QTc prolongati on..T nonspecifi c isolated T wave inversions on single lead V2 were present on recent study from 07/19/2023 . No evidence of acute ischemic changes. Chronic ki dney disease 491456092 N18.9 Renal function is at baselinemo nitor labsavoid nephrotoxi c drugs Asthenia 76629934 R53.1 hx of multiple fallsambul ates with walkerPT/O T eval and treat [id number] FRIEDA ANDERSON [address] [place] [address] rd [place] [address] 11/01/2023 08:04:11 11/06/2023 11:37:03 Cystitis 34183710 N30.90 With MDROInitia lly with Vanco and cefepime however cultures growing MDRO Klebsiella Started meropenem 1 g q12 for 7 days.start ed 10/19 for 7 full days of treatment to end 10/26.- completed denies any dysuriapro biotic added Pruritus of vagina 09485 003 L29.3 Reports vaginal itchiness for over [...] BID for 7 days and re eval. [id number] FRIEDA ANDERSON [address] [address] 11/04/2023 12:13:42 11/06/2023 12:50:39 Falls 969296128 R29.6 see/HPiwit nessed fallwith injury/lac eration above left eye.no LOC Facial laceration 889508 008 S01.81XA above left eye/about 2 cm in lengthblee ding controlled , wrapped in gauze dressing. [id number] FRIEDA ANDERSON [address] [address] 11/06/2023 09:19:58 11/13/2023 12:17:34 Falls 439477330 R29.6 see/HPiwit nessed fallwith injury/lac eration above left eye.no LOCContinu e PT/OT Facial laceration 074429 008 S01.81XA above left eye/about 2 cm in lengthappe ars to be about 10-12 small dissolvabl e sutures in placedenie s any visual changes or headache.n ursing to monitor healing Pruritus of vagina 50993 003 L29.3 Reports vaginal itchiness for over [...] days and re eval. Chronic back pain 289396 002 G89.29 denies any new discomfort post falltramad ol 25 mg Q12 prngabapen tin 300 mg at hs Asthenia 89739240 R53.1 hx of multiple fallsambul ates with walkerPT/O T continue [id number] FRIEDA ANDERSON [address] [address] 11/08/2023 13:54:21 11/13/2023 13:10:32 Falls 456156703 R29.6 on 11/04/23wit nessed fallwith injury/lac eration above left eye.no LOCContinu e PT/OT Facial laceration 521447 008 S01.81XA above left eye/about 2 cm in lengthappe ars to be about 10-12 small di-solvabl e sutures in placedenie s any visual changes or headache.n ursing to monitor healing Pruritus of vagina 04730 003 L29.3 Reports vaginal itchiness for over [...] assure med is applied. Chronic back pain 614830 002 G89.29 denies any new discomfort post falltramad ol 25 mg Q12 prngabapen tin 300 mg at hs Asthenia 83133844 R53.1 hx of multiple fallsambul ates with walkerPT/O T continue [id number] FRIEDA ANDERSON [address] [address] 11/13/2023 10:59:21 11/15/2023 09:29:54 Falls 909240834 R29.6 on 11/04/23wit nessed fallwith injury/lac eration above left eye.no LOCContinu e PT/OT Facial laceration 003206 008 S01.81XA healingabo ve left eye/about 2 cm in lengthappe ars to be about 10-12 small di-solvabl e sutures in placedenie s any visual changes or headache.n ursing to monitor healing Pruritus of vagina 43833 003 L29.3 improving, continues with triamcinol one topical cream BID Chronic back pain 615321 002 G89.29 denies any new discomfort post falltramad ol 25 mg Q12 prngabapen tin 300 mg at hs Asthenia 22679928 R53.1 hx of multiple fallsambul ates with walkerPT/O T continues [id number] FRIEDA ANDERSON [address] [address] 11/18/2023 07:58:48 11/21/2023 13:26:13 Falls 561248760 R29.6 on 11/04/23wit nessed fallwith injury/lac eration above left eye.no LOCContinu e PT/OT Facial laceration 250092 008 S0.81XA healingabo ve left eye/about 2 cm in lengthappe ars to be about 10-12 small di-solvabl e sutures in placedenie s any visual changes or headache.n ursing to monitor healing Pruritus of vagina 00423 003 L29.3 improving, continues with triamcinol one topical cream BID Chronic back pain 773620 002 G89.29 denies any new discomfort post falltramad ol 25 mg Q12 prngabapen tin 300 mg at hs Asthenia 18453943 R53.1 hx of multiple fallsambul ates with walkerPT/O T continues [id number] FRIEDA ANDERSON [address] [address] 11/21/2023 13:49:57 11/25/2023 12:31:48 Falls 508191989 R29.6 on 11/04/23wit nessed fallwith injury/lac eration above left eye.no LOCContinu e PT/OT Facial laceration 356881 008 S01.81XA 11/04 s/p fall for laceration above left eye.healin g no s/sx of infectiona rolan left eye/about 2 cm in lengthappe ars to be about 10-12 small di-solvabl e sutures in placedenie s any visual changes or headache.n ursing to monitor healing Pruritus of vagina 26020 003 L29.3 improving, continues with triamcinol one topical cream BID Chronic back pain 177711 002 G89.29 denies any new discomfort post falltramad ol 25 mg Q12 prngabapen tin 300 mg at hs Asthenia 57654132 R53.1 hx of multiple fallsambul ates with walkerPT/O T continues [id number] CARLTON MINA [address] [address] 11/26/2023 07:45:18 11/28/2023 10:55:36 Falls 359066026 R29.6 on 11/04/23wit nessed fallwith injury/lac eration above left eye.no LOCContinu e PT/OT Facial laceration 993927 008 S01.81XA 11/04 s/p fall for laceration above left eye.healin g no s/sx of infectiona rolan left eye/about 2 cm in lengthappe ars to be about 10-12 small di-solvabl e sutures in placedenie s any visual changes or headache.n ursing to monitor healing Pruritus of vagina 77717 003 L29.3 triamcinol one topical cream BIDkeep area clean and dry. Chronic back pain 659742 002 G89.29 tramadol 25 mg Q12 prngabapen tin 300 mg at hs Asthenia 49923250 R53.1 hx of multiple fallsambul ates with walkerPT/O T continues [id number] FRIEDA ANDERSON [address] [address] 11/29/2023 08:06:37 12/03/2023 11:20:10 Falls 327410705 R29.6 on 11/04/23wit nessed fallwith injury/lac eration above left eye.no LOCContinu e PT/OT Facial laceration 524711 008 S01.81XA healed11/04 s/p fall for laceration above left eye.above left eye/about 2 cm in lengthdeni es any visual changes or headache. Pruritus of vagina 71001 003 L29.3 triamcinol one topical cream BIDkeep area clean and dry. Chronic back pain 021817 002 G89.29 tramadol 25 mg Q12 prngabapen tin 300 mg at hs Asthenia 93704297 R53.1 hx of multiple fallsambul ates with walkerPT/O T continues [id number] FRIEDA ANDERSON [address] [address] 12/04/2023 07:53:49 12/10/2023 10:21:37 Falls 825038292 R29.6 on 11/04/23wit nessed fallwith injury/lac eration above left eye.no LOCContinu e PT/OT Facial laceration 519432 008 S01.81XA healed11/04 s/p fall for laceration above left eye.above left eye/about 2 cm in lengthdeni es any visual changes or headache. Pruritus of vagina 33203 003 L29.3 triamcinol one topical cream BIDkeep area clean and dry. Chronic back pain 943500 002 G89.29 tramadol 25 mg Q12 prngabapen tin 300 mg at hs Asthenia 92167187 R53.1 hx of multiple fallsambul ates with walkerPT/O T continues Cellulitis of right lower limb 6167313507 1951885 L03.115 see hpistarted keflex on 11/30/23 for 7 days with probiotic for 10 daysencour aged to elevated lower extremitie s to elevate edemamonit or for resolution [id number] FRIEDA ANDERSON [address] [address] 12/11/2023 10:06:59 12/13/2023 13:01:47 Falls 775365598 R29.6 no recent falls reported Facial laceration 888376 008 S01.81XA healed11/04 s/p fall for laceration above left eye.above left eye/about 2 cm in lengthdeni es any visual changes or headache. Pruritus of vagina 88144 003 L29.3 triamcinol one topical cream BIDkeep area clean and dry. Chronic back pain 773351 002 G89.29 tramadol 25 mg Q12 prngabapen tin 300 mg at hs Cellulitis of right lower limb [id number] 7602387 L03.115 resolved. [id number] FRIEDA ANDERSON [address] [address] 12/18/2023 09:20:38 12/20/2023 14:10:33 Chronic diastolic heart failure 670394112 I50.32 preserved EFeuvolemi ctorsemide held in acute care d/t hypotensio n and bradycardi c 50'smonito r BP and need to restartmon itor weights Mixed anxi ety and depressive disorder 592766808 F41.8 stable and pleasantEs citalopram Oxalate Tablet 30 mg dailymonit or for mood and behavorial changes. Type 2 jr betes mellitus 23603249 E11.21 continue monitor glucose,Li spro SSI coverageGa bapentin Capsule 300 MG at bedtime for neuropathy pain.trama dol 25 mg q12 prn [id number] FRIEDA ANDERSON [address] [address] 12/25/2023 11:16:29 12/30/2023 16:09:32 Chronic diastolic heart failure 068408983 I50.32 preserved EFBLE +1was on torsemide but was d/c in acute caremonito r weights- [facility] Mixed anxi ety and depressive disorder 533537809 F41.8 stable and pleasantEs citalopram Oxalate Tablet 30 mg dailymonit or for mood and behavorial changes. Type 2 jr betes mellitus 90382324 E11.21 continue monitor glucose,Li spro SSI coverageGa bapentin Capsule 300 MG at bedtime for neuropathy pain.trama dol 25 mg q12 prn [id number] Naomi Todd MD [address] [address] 12/26/2023 19:19:22 01/31/2024 14:21:17 Cystitis 67763797 N30.00 Completed course of meropenem 1 g q 12 hrs on 10/26.Monit or for recurrent sxs. Falls 858700536 R29.6 Continues to be a high fall risk and needs CG and sometimes an assist for transfers. No longer getting acute PT/OT services, restart as able.Cindy nue fall precaution s.Monitor for safety. Peripheral venous insufficiency 92227195 I87.2 No current sxs.Contin ue local care and elevation. Chronic di astolic heart failure 322861376 I50.32 Appears euvolemic. Monitor for need for diuretics. Monitor resp. status, fluid status, wts and labs. Chronic ob structive pulmonary disease 11555809 J43.8 Continues with no sxs.Contin ue Advair 250/50 BID and albuterol nebs q 6 hrs prnMonitor resp status. Type 2 jr betes mellitus 78333640 E11.21 Sugars were all <150 when checked for 3 days.Cindy nue gabapentin 300 MG qhs and tramadol q 12 hrs prn for neuropathy Monitor fingerstic ks prn and HgA1C q 3-6 months Paroxysmal atrial flutter 857326210 I48.92 Rate remains in good control on amiodarone 200 mg qdNo AC due to age and fall riskMonito r HR Restless l egs syndrome 75902988 G25.81 Continue ropinirole 2 mg BIDMonitor sxs. Mixed anxi ety and depressive disorder 800495461 F41.8 Mood stableCont inue escitalopr am 30 mg qdMonitor mood.Consu lt psych prn Anemia of chronic disease 342697745 D63.8 Hgb has been stable.Con tinue FeSO4 325 mg qd with vitamin C 250 mg qd for absorption .Monitor labs Hyperlipidemia 72769263 E78.49 Continue atorvastat in 20 mg qdMonitor labs yearly Gastroesop hageal reflux disease 369006316 K21.9 No current sxs.Contin ue pantoprazo le 40 mg qdMonitor sxs Chronic ki dney disease 676443211 N18.1 Renal function remains WNLContinu e to avoid nephrotoxi c meds as able.Monit or labs.Renal consult prn. Chronic back pain 414359 002 G89.29 Continue tramadol 25 mg q 12 hrs prn and gabapentin 300 mg qhsMonitor sxs. [id number] FRIEDA ANDERSNO [address] [place] [address] [place] [address] 01/01/2024 08:18:43 01/06/2024 15:39:22 Chronic diastolic heart failure 537491342 I50.32 preserved EFBLE +1was on torsemide but was d/c in acute caremonito r weights- [facility] to [facility] Mixed anxi ety and depressive disorder 502807411 F41.8 stable and pleasantEs citalopram Oxalate Tablet 30 mg dailymonit or for mood and behavorial changes. Type 2 jr betes mellitus 47472335 E11.21 continue monitor glucose,Li spro SSI coverageGa bapentin Capsule 300 MG at bedtime for neuropathy pain.trama dol 25 mg q12 prn Spasm 09007685 R25.2 12/31/23 nursing reported pt was having left upper leg/buttoc k pain/spasm tramadol changed from q12 to q6 and robaxin 500 mg q 6 prn addedtoday pt states that medication was effectivew ill monitor for worsening sx [id number] FRIEDA ANDERSON [address] [address] 01/08/2024 13:26:41 01/10/2024 11:20:05 Chronic diastolic heart failure 832844920 I50.32 no weight gain notedconti nue furosemide 10 mg dailymonit or labs , weightsmon itor for cardiopulm onary sx 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 Type 2 jr betes mellitus 61693179 E11.21 continue monitor glucose,co ntinue Lispro SSI coverageco ntinue Gabapentin Capsule 300 MG at bedtime for neuropathy pain.cindy nue tramadol 50 mg q 8 prn Spasm 40363621 R25.2 to LLE and glutealpai n has improvedRo baxin 500 mg discontinu e -it was ordered for short term use onlycontin ue tramadol 50 mg prn [id number] FRIEDA ANDERSON [address] [address] 01/15/2024 09:55:29 01/27/2024 16:00:52 Cervical radiculopathy 22717526 M54.12 start diclofenac gel daily and q8 prncontinu e tramadol 50 mg Q6 prncontinu e gabapentin 300 mg at hs add 300 mg QDrefer to physical therapy for eval and tx [id number] CARLTON MINA, [address] [address] 01/22/2024 09:25:19 01/28/2024 11:32:54 Cervical radiculopathy 22828165 M54.12 continue diclofenac gel daily and q8 prncontinu e tramadol 50 mg Q6 prncontinu e gabapentin 300 mg at hs add 300 mg QDper therapy patient neck pain is chronic and she was previously treated and recommende d Chronic di astolic heart failure 646729583 I50.32 monitor labs , weights , edemamonit or for cardiopulm onary sxencourag ed leg elevation/ wraps as needed. Gastroesop hageal reflux disease 081478837 K21.9 Pantoprazo le40 mg dailymonit or for gi upset. Mixed anxi ety and depressive disorder 610164066 F41.8 continue Escitalopr am Oxalate Tablet 30 mg dailymonit or for mood and behavorial changes. Type 2 jr betes mellitus 62139912 E11.21 continue monitor glucose,co ntinue Lispro SSI coverageco ntinue Gabapentin Capsule 300 MG at bedtime for neuropathy pain.cindy nue tramadol 50 mg q 8 prn [id number] CARLTON MINA [address] [address] 01/27/2024 10:53:32 02/17/2024 12:46:54 Cervical radiculopathy 24651515 M54.12 continue diclofenac gel daily and q8 prncontinu e tramadol 50 mg Q6 prncontinu e gabapentin 300 mg at hs add 300 mg QD Chronic di astolic heart failure 431320500 I50.32 monitor labs , weights , edemamonit or for cardiopulm onary sxencourag ed leg elevation/ wraps as needed. Gastroesop hageal reflux disease 445676270 K21.9 Pantoprazo le40 mg dailymonit or for gi upset. Mixed anxi ety and depressive disorder 321453041 F41.8 continue Escitalopr am Oxalate Tablet 30 mg dailymonit or for mood and behavorial changes. Type 2 jr betes mellitus 39073304 E11.21 bgl have been stablecont inue monitor glucose,co ntinue Lispro SSI coverageco ntinue Gabapentin Capsule 300 MG at bedtime for neuropathy pain.cindy nue tramadol 50 mg q 8 prn Falls 924371804 R29.6 no recent fallsConti nunell to be a high fall risk and needs CG and sometimes an assist for transfers. she has reduce functional mobility to left lower extremity due to pain in her ankle.Alba ent would benefit from an AFO to provide support to LLE/ankle and reduce pain. [id number] FRIEDA ANDERSON [address] [place] [address] 01/30/2024 10:23:09 02/04/2024 14:43:29 Bleeding from nose 583571785 R04.0 see hpistart afrin 2 spray to right nares q12 x 5days.janice loera for recurrence monitor BP/rebound congestion [id number] FRIEDA ANDERSON [address] [place] [address] 02/05/2024 09:31:19 02/11/2024 09:17:30 Bleeding from nose 515851460 R04.0 resolved. Cervical radiculopathy 72029136 M54.12 continue diclofenac gel daily and q8 prncontinu e tramadol 50 mg Q6 prncontinu e gabapentin 300 mg at hs add 300 mg QDper therapy patient neck pain is chronic and she was previously treated and recommende d Chronic di astolic heart failure 481108773 I50.32 monitor labs , weights , edemamonit or for cardiopulm onary sxencourag ed leg elevation/ wraps as needed. Gastroesop hageal reflux disease 433016207 K21.9 Pantoprazo le40 mg dailymonit or for gi upset. Mixed anxi ety and depressive disorder 899828113 F41.8 continue Escitalopr am Oxalate Tablet 30 mg dailymonit or for mood and behavorial changes. Type 2 jr betes mellitus 11768852 E11.21 continue monitor glucose,co ntinue Lispro SSI coverageco ntinue Gabapentin Capsule 300 MG at bedtime for neuropathy pain.cindy nue tramadol 50 mg q 8 prn [id number] MD DARRIN Perry [address] [address] 02/28/2024 13:56:25 03/10/2024 11:09:37 Pain in left foot 3147711896 50815 M79.672 With new deformity of left great [...] q 8 hrs prn for pain. Diarrhea 68584090 R19.7 Only has happened one time so far, possibly from stress.Ord ered imodium prnMonitor [id number] FRIEDA ANDERSON [address] [address] 03/04/2024 14:57:51 03/10/2024 11:43:05 Pain in left foot [id number] 79925 M79.672 deformity of left great toe, with [...] for pain. Blister of toe without infection 19985759 S90.425A continue warm soaks as aboveclean se left 2nd toe with soap and warm water, hydrogen peroxideap ply petroleum and cover with gauze or non stick dressing daily and prnmonitor for healing. [id number] FRIEDA ANDERSON [address] [address] 03/06/2024 14:42:26 03/10/2024 12:16:05 Mixed anxiety and depressive disorder 881753299 F41.8 continue Escitalopr am Oxalate Tablet 30 mg dailywill adjust trazodone and increased from 12.5 mg to 25 mg scheduled at HS per psych rec.and continue prn trazodone 12.5 mg bid prn, anxiety for 14 days.monit or for mood and behavorial changes. [id number] FRIEDA ANDERSON [address] [place] [address] 03/10/2024 10:17:01 03/16/2024 15:45:17 Pain in left foot 0246716089 08948 M79.672 deformity of left great toe, with [...] coming next week, will consult Dr. Tanner [phone] can have wound care see her for further advice- will be seen by wound on ontinu e APAP 650 mg q 6 hrs prn and tramadol 50 mg q 8 hrs prn for pain.she does not have hx of gout but will order uric acid d/t her still having pain despite abx use for 4 days. Blister of toe without infection 97502026 S90.425A continue warm soaks as aboveclean se left 2nd toe with soap and warm water, hydrogen peroxidedr essing changes to Alginate/D CD QD [id number] FRIEDA ANDERSON [address] [place] [address] 03/16/2024 09:19:11 03/19/2024 16:19:43 Pain in left foot 2423940548 94104 M79.672 baseline deformity due to hammer toeabx [...] infection. Mixed anxi ety and depressive disorder 034535574 F41.8 continue Escitalopr am Oxalate Tablet 30 mg dailyrepor ts although medication s have been helpful that she continues with difficultl y falling asleepand evening anxiety.in cre[facility] to 12.5 mg q12 prnmonitor for mood and behavorial changes. [id number] FRIEDA ANDERSON [address] [address] 03/17/2024 10:40:42 03/20/2024 08:44:03 Bleeding from nose 346310589 R04.0 minor nasal bleeding after blowing her nosewill discussed avoiding nose blowing, gently sniff insteadavo id picking nose or rubbing noseafrin nasal 1 spray BID prnsaline nasal spray BID Pain of to e of left foot [id number] 07121 M79.675 reports pain to left great toe and second great toenailini tially flinching on exam when toe(s) were touched , states pain requesting toenail to be cut on 2ndshe provided clippers, I trimmed and file all toenail, she reports toes feeling much betterther e was no observatio n of facial grimacing, flinching or pulling away during procedure. [id number] Naomi Todd MD [address] [address] 03/30/2024 16:40:06 04/01/2024 10:48:39 Falls 567157109 R29.6 Continues to be a high fall risk.Getti ng OT for mobility and safety, primarily wheelchair level.Cont inue fall precaution s.Monitor for safety. Peripheral venous insufficiency 84123420 I87.2 No current sxs.Contin ue local care and elevation. Chronic di astolic heart failure 144775071 I50.32 Appears euvolemic. Continue furosemide 10 mg qdMonitor resp. status, fluid status, wts and labs. Chronic ob structive pulmonary disease 49622207 J43.8 Continues with no sxs.Contin ue Advair 250/50 BID and albuterol nebs q 6 hrs prnMonitor resp status. Type 2 jr betes mellitus 98443541 E11.21 Stable on no meds.Last HgA1C was 6.1 in 06/2023.Con tinue gabapentin 300 MG qhs and tramadol qhs scheduled and BID prn for neuropathy Monitor fingerstic ks prn and HgA1C q 3-6 months Paroxysmal atrial flutter 436927394 I48.92 Rate remains in good control on amiodarone 200 mg qdNo AC due to age and fall riskMonito r HR Restless l egs syndrome 05750448 G25.81 Continue ropinirole 2 mg BIDMonitor sxs. Mixed anxi ety and depressive disorder 236938276 F41.8 Mood sl. down due to pain not improving. Continue escitalopr am 30 mg qdMonitor mood.Consu lt psych prn Anemia of chronic disease 069152616 D63.8 Hgb remains stable.Con tinue FeSO4 325 mg qd with vitamin C 250 mg qd for absorption .Monitor labs Hyperlipidemia 15419468 E78.49 Continue atorvastat in 20 mg qdMonitor labs yearly Gastroesop hageal reflux disease 742162241 K21.9 No current sxs.Contin ue pantoprazo le 40 mg qdMonitor sxs Chronic ki dney disease 030660630 N18.2 Renal function remains stableCont inue to avoid nephrotoxi c meds as able.Monit or labs.Renal consult prn. Chronic back pain 837137 002 G89.29 Continue meds as above.Janice tor sxs. Bleeding from nose 40562 6005 R04.0 Resolved. Pain of to e of left foot 3329760760 24403 M79.675 No improvemen t since toenails cut on 03/17.Left 2nd toe still red and tender.Esteban leung have nursing set up appt with Dr. Lu Holder who has offices in [facility] and [place]. [place] # is [phone] local care until then. Using padding between toes to keep the pressure off.Monito r for signs of infection. Will schedule hs tramadol and keep 50 mg BID prn [id number] FRIEDA ANDERSON DARRIN STYLES [address] [facility] [place] [address] 04/03/2024 11:03:23 04/28/2024 07:31:02 Cellulitis of foot 217613062 L03.119 left footsuspec gloria do to sx.recentl y treated for cellulitis left great toe with doxycyclin ewill start cephalexin 250 mg Q 6 hr for 5 days.will add probiotic BID for 7 daysmonito r for resolution . [id number] MD DARRIN Perry JENSEN [address] [facility] [place] [address] 04/13/2024 17:19:14 04/28/2024 08:01:43 Osteomyelitis 43822288 M86.272 Continue ertapenem 1 gm IV qd [...] has offices in [facility] and [place]. [place] # is Falls [id number] R29.6 Continues to be a high fall risk.Able to restart rehab after hospitaliz ation.Need s PT/OT for strengthen ing, balance, gait training, safety and function.C ontinue fall precaution s.Monitor for safety. Chronic di astolic heart failure 909064890 I50.32 Appears euvolemic. Continue furosemide 10 mg qdMonitor resp. status, fluid status, wts and labs. Chronic ob structive pulmonary disease 15797666 J43.8 Continues with no sxs.Contin ue Advair 250/50 BID and albuterol nebs q 6 hrs prnMonitor resp status. Type 2 jr betes mellitus 29854425 E11.21 Sugars inpt were all <100Last HgA1C was 6.1 in 06/2023.Con tinue gabapentin 300 MG qhs and other pain meds as above for neuropathy .Monitor fingerstic ks prn and HgA1C q 3-6 months Paroxysmal atrial flutter 832495314 I48.92 Rate remains in good control on amiodarone 200 mg qdNo AC due to age and fall riskMonito r HR Restless l egs syndrome 69397666 G25.81 Continue ropinirole 2 mg BIDMonitor sxs. Mixed anxi ety and depressive disorder 724212676 F41.8 Mood sl. down due to pain not improving. Continue escitalopr am 30 mg qd, trazadone 25 mg qhs and 12.5 mg BID prn.Monito r mood.Consu lt psych prn Anemia of chronic disease 326667852 D63.8 Hgb remains stable.Con tinue FeSO4 325 mg qd with vitamin C 250 mg qd for absorption .Monitor labs Hyperlipidemia 30342167 E78.49 Continue atorvastat in 20 mg qdMonitor labs yearly Gastroesop hageal reflux disease 416124957 K21.9 No current sxs.Contin ue pantoprazo le 40 mg qdMonitor sxs Chronic ki dney disease 703074597 N18.2 Renal function remains stableCont inue to avoid nephrotoxi c meds as able.Monit or labs.Renal consult prn. Chronic back pain 185445 002 G89.29 Continue meds as above.Janice tor sxs. Peripheral venous insufficiency 45487116 I87.2 No current sxs.Contin ue local care and elevation. [id number] FRIEDA ANDERSON JENSEN [address] [place] [address] 04/16/2024 08:54:52 04/28/2024 08:26:12 Osteomyelitis 43868565 M86.272 Continue ertapenem 1 gm IV qd [...] Holder who has offices in [facility], [place] and [place]. [place] # is Falls [id number] R29.6 Continues to be a high fall risk.Able to restart rehab after hospitaliz ation.Need s PT/OT for strengthen ing, balance, gait training, safety and function.C ontinue fall precaution s.Monitor for safety. Chronic di astolic heart failure 041591805 I50.32 Appears euvolemic. Continue furosemide 10 mg qdMonitor resp. status, fluid status, wts and labs. Chronic ob structive pulmonary disease 60327912 J43.8 Continues with no sxs.Contin ue Advair 250/50 BID and albuterol nebs q 6 hrs prnMonitor resp status. Paroxysmal atrial flutter 326183811 I48.92 Rate remains in good control on amiodarone 200 mg qdNo AC due to age and fall riskMonito r HR Restless l egs syndrome 07037521 G25.81 Continue ropinirole 2 mg BIDMonitor sxs. Mixed anxi ety and depressive disorder 454557579 F41.8 Continue escitalopr am 30 mg qd, trazadone 25 mg qhs and 12.5 mg BID prn.Monito r mood.Consu lt psych prn Anemia of chronic disease 329936303 D63.8 Continue FeSO4 325 mg qd with vitamin C 250 mg qd for absorption .Monitor labs Hyperlipidemia 25937641 E78.49 Continue atorvastat in 20 mg qdMonitor labs yearly Gastroesop hageal reflux disease 310186585 K21.9 No current sxs.Contin ue pantoprazo le 40 mg qdMonitor sxs [id number] FRIEDA ANDERSON JENSEN [address] [place] [address] [place] [address] 04/20/2024 10:04:50 04/28/2024 08:59:08 Osteomyelitis 32162119 M86.272 left foot 2nd toe with woundgrima [...] has offices in [facility] and [place]. Luis [place] # is [phone] Chronic di astolic heart failure 531917736 I50.32 Appears euvolemic. Continue furosemide 10 mg qdMonitor resp. status, fluid status, wts and labs. Chronic ob structive pulmonary disease 16883518 J43.8 breathing easy and unlabored. Continue Advair 250/50 BID and albuterol nebs q 6 hrs prnMonitor resp status. Mixed anxi ety and depressive disorder 511251916 F41.8 her mood is normal reports eating and drinking ok.Continu e escitalopr am 30 mg qd, trazadone 25 mg qhs and 12.5 mg BID prn.Monito r mood.Consu lt psych prn [id number] Naomi Todd MD [address] [place] [address] 04/23/2024 22:13:47 04/30/2024 18:09:13 Osteomyelitis 01964870 M86.272 Continue ertapenem 1 gm IV qd [...] wound care.Will have staff contact Dr. Lu Hodler's office again. Has offices in [facility] and [place]. Luis [place] # is Falls [id number] R29.6 Is still a high fall risk.Needs PT/OT for strengthen ing, balance, gait training, safety and function.C ontinue fall precaution s.Monitor for safety. Chronic di astolic heart failure 112368164 I50.32 Remains euvolemic. Continue furosemide 10 mg qdMonitor resp. status, fluid status, wts and labs. Chronic ob structive pulmonary disease 56724958 J43.8 Continues with no sxs.Contin ue Advair 250/50 BID and albuterol nebs q 6 hrs prnMonitor resp status. Type 2 rj betes mellitus 95729345 E11.21 Sugars were all good, so not being checked regularly. Last HgA1C was 6.1 in 06/2023.Con tinue gabapentin 300 MG qhs and other pain meds as above for neuropathy .Monitor fingerstic ks prn and HgA1C q 3-6 months [id number] GOLDIE TREVIZO [address] [place], [place] [address] 04/30/2024 08:46:54 05/02/2024 09:31:27 Osteomyelitis 17214438 M86.272 left foot 2nd toe with wound, [...] Holder who has offices in [facility], [place] and [place]. [place] # is Chronic di astolic heart failure 949242206 I50.32 Appears euvolemic. Continue furosemide 10 mg qdMonitor resp. status, fluid status, wts and labs. Chronic ob structive pulmonary disease 02627574 J43.8 breathing easy and unlabored. Continue Advair 250/50 BID and albuterol nebs q 6 hrs prnMonitor resp status. Mixed anxi ety and depressive disorder 159017257 F41.8 her mood is normal reports eating and drinking ok.Continu e escitalopr am 30 mg qd, trazadone 25 mg qhs and 12.5 mg BID prn.Monito r mood.Consu lt psych prn Gastroesop hageal reflux disease 991009152 K21.9 Reporting some nausea after eating, unsure if may be related to abx use. Discused with nsg., will monitor.Co ntinue pantoprazo le 40 mg qdMonitor sxs Restless l egs syndrome 13197690 G25.81 Continue requip, very helpful Headache 53488364 R51.9 history of, including migraines, for years.Most headaches in the forehead area and above eyes.APAP discussed, helps, would like it sched. if possible.Eloy beaversg. who also feels it would be a good idea, so will sched. 650 mg tid.Monito r. [id number] FRIEDA ANDERSON [address] [place] [address] rd [place] [address] 05/05/2024 11:02:17 05/06/2024 15:43:52 Osteomyelitis 26385211 M86.272 left foot 2nd toe with wound, [...] Holder who has offices in [facility], [place] and [place]. [place] # is Chronic di astolic heart failure 000651738 I50.32 Appears euvolemic. Continue furosemide 10 mg qdMonitor resp. status, fluid status, wts and labs. Chronic ob structive pulmonary disease 50092840 J43.8 breathing easy and unlabored. Continue Advair 250/50 BID and albuterol nebs q 6 hrs prnMonitor resp status. Mixed anxi ety and depressive disorder 293556955 F41.8 her mood is normal reports eating and drinking ok.Continu e escitalopr am 30 mg qd, trazadone 25 mg qhs and 12.5 mg BID prn.Monito r mood.Consu lt psych prn Gastroesop hageal reflux disease 681102650 K21.9 Continue pantoprazo le 40 mg qdMonitor sxs Restless l egs syndrome 61852691 G25.81 Continue requip, very helpful Headache 67780502 R51.9 history of, including migraines, for years.Most headaches in the forehead area and above eyes.APAP discussed, helps, would like it sched. if possible.Eloy mo. who also feels it would be a good idea, so will sched. 650 mg tid.Monito r. [id number] FRIEDA ANDERSON [address] [place] [address] rd [place] [address] 05/07/2024 10:05:01 05/11/2024 16:11:56 Osteomyelitis 56668853 M86.272 Continue ertapenem 1 gm IV qd [...] has offices in [facility] and [place]. [place] # is Chronic di astolic heart failure 137827617 I50.32 Appears euvolemic. Continue furosemide 10 mg qdMonitor resp. status, fluid status, wts and labs. Chronic ob structive pulmonary disease 79255219 J43.8 breathing easy and unlabored. Continue Advair 250/50 BID and albuterol nebs q 6 hrs prnMonitor resp status. Mixed anxi ety and depressive disorder 666244403 F41.8 Continue escitalopr am 30 mg qd, trazadone 25 mg qhs and 12.5 mg BID prn.Monito r mood.Consu lt psych prn Gastroesop hageal reflux disease 130859604 K21.9 Continue pantoprazo le 40 mg qdMonitor sxs Restless l egs syndrome 11229062 G25.81 Continue requip, very helpful Headache 06839316 R51.9 continue tylenol 650 mg prn.encour age to increase oral hydration. [id number] FRIEDA ANDERSON DARRIN STYLES [address] [place] [address] [place] [address] 05/11/2024 16:30:45 05/12/2024 13:09:07 Osteomyelitis 94720003 M86.272 Has been tolerating IV therapy.Co ntinue [...] Holder who has offices in [facility], [place] and [place]. [place] # is Chronic di astolic heart failure 487700859 I50.32 euvolemic. Continue furosemide 10 mg qdMonitor resp. status, fluid status, wts and labs. Chronic ob structive pulmonary disease 64736612 J43.8 Continue Advair 250/50 BID and albuterol nebs q 6 hrs prnMonitor resp status. Mixed anxi ety and depressive disorder 017842564 F41.8 Continue escitalopr am 30 mg qd, trazadone 25 mg qhs and 12.5 mg BID prn.mood is good today. pleasant on exam.Monit or moodConsul t psych prn Gastroesop hageal reflux disease 645947474 K21.9 Continue pantoprazo le 40 mg qdMonitor sxs Restless l egs syndrome 56142917 G25.81 Continue requip 2 mg bid Headache 40510816 R51.9 continue tylenol 650 mg prn.encour age to increase oral hydration. [id number] FRIEDA ANDERSON DARRIN STYLES [address] [place] [address] [place] [address] 05/15/2024 10:17:08 05/19/2024 11:08:19 Osteomyelitis 66479773 M86.272 Has been tolerating IV therapy.Co ntinue ertapenem 1 gm IV qd until ontin ue probiotic BIDContinu e local care as ordered.Mo nitor labs (CBC, CMP, ESR, and CRP weekly until 05/18) and skin condition. Chronic di astolic heart failure 730224600 I50.32 euvolemic. Continue furosemide 10 mg qdMonitor resp. status, fluid status, wts and labs. Chronic ob structive pulmonary disease 48975285 J43.8 Continue Advair 250/50 BID and albuterol nebs q 6 hrs prnMonitor resp status. Mixed anxi ety and depressive disorder 888638604 F41.8 Continue escitalopr am 30 mg qd, trazadone 25 mg qhs and 12.5 mg BID prn.mood is good today. pleasant on exam.Monit or moodConsul t psych prn Gastroesop hageal reflux disease 332361875 K21.9 Continue pantoprazo le 40 mg qdthere has been no reported GI upset. Restless l egs syndrome 35581589 G25.81 Continue requip 2 mg bid Headache 86222238 R51.9 continue tylenol 650 mg prn.encour age to increase oral hydration. [id number] FRIEDA ANDERSON JENSEN [address] [place] [address] [place] [address] 05/18/2024 08:44:49 05/19/2024 11:16:27 Osteomyelitis 20141462 M86.272 completed abxcontinu e probiotic BIDContinu e local care as ordered.f/ u appt. with ID later today Chronic di astolic heart failure 927093246 I50.32 stableCont inue furosemide 10 mg qdMonitor resp. status, fluid status, wts and labs. Chronic ob structive pulmonary disease 47961656 J43.8 breathing easy and unlabored. Continue Advair 250/50 BID and albuterol nebs q 6 hrs prnMonitor resp status. Mixed anxi ety and depressive disorder 244881878 F41.8 Continue escitalopr am 30 mg qd, trazadone 25 mg qhs and 12.5 mg BID prn.Monito r moodConsul t psych prn Gastroesop hageal reflux disease 673045229 K21.9 Continue pantoprazo le 40 mg qdthere has been no reported GI upset. Restless l egs syndrome 59596188 G25.81 Continue requip 2 mg bid Headache 78198382 R51.9 continue tylenol 650 mg prn.encour age to increase oral hydration. [id number] FRIEDA ANDERSON [address] [address] 5 05/25/2024 09:58:25 05/29/2024 09:27:36 Osteomyelitis [id number] M86.272 completed abx Chronic di astolic heart failure 974406154 I50.32 euvolemicC ontinue furosemide 10 mg qdMonitor resp. status, fluid status, wts and labs. Chronic ob structive pulmonary disease 94021539 J43.8 breathing easy and unlabored. Continue Advair 250/50 BID and albuterol nebs q 6 hrs prnMonitor resp status. Mixed anxi ety and depressive disorder 674288586 F41.8 Continue escitalopr am 30 mg qd, trazadone 25 mg qhs and 12.5 mg BID prn.Monito r moodConsul t psych prn Gastroesop hageal reflux disease 244869383 K21.9 Continue pantoprazo le 40 mg qdthere has been no reported GI upset. Restless l egs syndrome 42654067 G25.81 Continue requip 2 mg bid Headache 33380910 R51.9 continue tylenol 650 mg prn.encour age to increase oral hydration. [id number] FRIEDA ANDERSON [address] [address] 5 06/01/2024 09:58:25 06/03/2024 09:34:34 Osteomyelitis 49031320 M86.272 completed abx Chronic di astolic heart failure 292670428 I50.32 euvolemicC ontinue furosemide 10 mg qdMonitor resp. status, fluid status, wts and labs. Chronic ob structive pulmonary disease 20540674 J43.8 breathing easy and unlabored. Continue Advair 250/50 BID and albuterol nebs q 6 hrs prnMonitor resp status. Mixed anxi ety and depressive disorder 296247168 F41.8 mood is stableCont inue escitalopr am 30 mg qd, trazadone 25 mg qhs and 12.5 mg BID prn.Monito r moodConsul t psych prn [id number] FRIEDA ANDERSON DARRIN KAME [address] [place] [address] [place]SSARD [address] 5 06/03/2024 11:42:59 06/09/2024 13:21:42 Osteomyelitis 51843208 M86.272 completed abx Chronic di astolic heart failure 604857280 I50.32 euvolemicC ontinue furosemide 10 mg qdMonitor resp. status, fluid status, wts and labs. Chronic ob structive pulmonary disease 69448289 J43.8 breathing easy and unlabored. Continue Advair 250/50 BID and albuterol nebs q 6 hrs prnMonitor resp status. Mixed anxi ety and depressive disorder 308755649 F41.8 mood is stableCont inue escitalopr am 30 mg qd, trazadone 25 mg qhs and 12.5 mg BID prn.Monito r moodConsul t psych prn [id number] FRIEDA ANDERSON [facility] JENSEN [address] [place] [address] J[place] BROUSSARD [phone] 5 06/09/2024 10:12:41 06/11/2024 14:30:47 Osteomyelitis 74572212 M86.272 06/09:clinic ally she is stableleft foot [...] dry and apply bacitracin with DCD BID. [id number] FRIEDA ANDERSON DARRIN STYLES [address] [place] [address] J[place] BROUSSARD [address]651 5 06/11/2024 11:46:23 06/15/2024 11:21:06 Osteomyelitis 00467416 M86.272 06/09:clinic ally she is stableleft foot [...] a second consult with ortho. appt 06/18/24. [id number] FRIEDA ANDERSON [address] [address] 5 06/15/2024 09:48:35 06/17/2024 10:12:04 Osteomyelitis 92618761 M86.272 06/09:clinic ally she is stableleft foot [...] appt 06/18/24. Chronic di astolic heart failure 332575316 I50.32 euvolemicw eight stableCont inue furosemide 10 mg qdMonitor resp. status, fluid status, wts and labs. Chronic ob structive pulmonary disease 55637274 J43.8 breathing easy and unlabored. Continue Advair 250/50 BID and albuterol nebs q 6 hrs prnMonitor resp status. [id number] [facility] [address] [place] [address] 5 06/22/2024 08:47:12 06/24/2024 08:50:27 Osteomyelitis 17710860 M86.272 06/09:clinic ally she is stableleft foot [...] gaines. Mixed anxi ety and depressive disorder 083890458 F41.8 mood is stablerece nt room change transition to LTC, adjusting well. Most of the women she joins at activities reside on same unit, she is happy about this.Cindy nue escitalopr am 30 mg qd, trazadone 25 mg qhs and 12.5 mg BID prn.Monito r moodConsul t psych prn [id number] FRIEDA ANDERSON [address] [place] [address], [place] [address] 5 06/29/2024 10:45:15 06/30/2024 13:34:02 Osteomyelitis 18535495 M86.272 06/09:clinic ally she is stableleft foot [...] ortho. Mixed anxi ety and depressive disorder 414582734 F41.8 mood is stablerece nt room change transition to LTC, adjusting well. Most of the women she joins at activities reside on same unit, she is happy about this.Cindy nue escitalopr am 30 mg qd, trazadone 25 mg qhs and 12.5 mg BID prn.Monito r moodConsul t psych prn Chronic di astolic heart failure 187769230 I50.32 euvolemicw eight stable noted 166-168Con tinue furosemide 10 mg qdMonitor resp. status, fluid status, wts and labs. [id number] FRIEDA ANDERSON JENSEN [facility] [place] BROUSS[place] [phone] 5 07/02/2024 11:07:08 07/03/2024 12:50:28 Mixed anxiety and depressive disorder 167129207 F41.8 mood is stable- she denies feeling hopeless, lonely or isolated.C ontinue escitalopr am 30 mg qd, trazadone 25 mg qhs and 12.5 mg BID prn.Monito r mood for negative changes.pt encouraged to continue to engage in social activities .Consult psych prn Chronic di astolic heart failure 406475313 I50.32 euvolemic- she denies any chest pain or shortness of breathweig ht stable noted 166-168Con tinue furosemide 10 mg qdMonitor resp. status, fluid status, wts and labs. Hammer toe 664298533 M20 .42 left foot 2 nd toe-recent ly completed IV antibiotic s ertapenem 1 gm daily for 6 weeks for osteomyeli tis. she continues to have discomfort . follow up xray results: no acute abnormalit y is seen in the left foot. [id number] [facility] [address] [place] [phone] 5 07/07/2024 14:44:04 07/08/2024 11:39:59 Hammer toe 578247764 M20.42 left foot 2 nd toe-recent ly completed IV antibiotic s ertapenem 1 gm daily for 6 weeks for osteomyeli tis. she continues to have discomfort . follow up xray results: no acute abnormalit y is seen in the left foot. Mixed anxi ety and depressive disorder 466231326 F41.8 mood is stable- she denies feeling hopeless, lonely or isolated.C ontinue escitalopr am 30 mg qd, trazadone 25 mg qhs and 12.5 mg BID prn.Monito r mood for negative changes.pt encouraged to continue to engage in social activities .followed by psych prn recently seen 07/06 no new recommenda tion. Chronic di astolic heart failure 195925619 I50.32 euvolemic- she denies any chest pain or shortness of breathweig ht stable noted 166-168Con tinue furosemide 10 mg qdMonitor resp. status, fluid status, wts and labs. [id number] FRIEDA ANDERSON [address] [address] 5 07/13/2024 08:31:31 07/14/2024 11:43:51 Hammer toe 540083555 M20.42 07/13:stabl e, no worsening sx notedleft foot 2 nd toe-recent ly completed IV antibiotic s ertapenem 1 gm daily for 6 weeks for osteomyeli tis. she continues to have discomfort . follow up xray results: no acute abnormalit y is seen in the left foot. Mixed anxi ety and depressive disorder 878812139 F41.8 07/13: StableCont inue escitalopr am 30 mg qd, trazadone 25 mg qhs and 12.5 mg BID prn.Monito r mood for negative changes.pt encouraged to continue to engage in social activities .followed by psych prn recently seen 07/06 no new recommenda tion. Chronic di astolic heart failure 335955228 I50.32 07/13: stable.euv olemic- she denies any chest pain or shortness of breathweig ht stable noted 166-168Con tinue furosemide 10 mg qdMonitor resp. status, fluid status, wts and labs. [id number] FRIEDA ANDERSON [address] [address] 5 07/16/2024 10:15:02 07/21/2024 15:43:58 Hammer toe 797424983 M20.42 07/13:stabl e, no worsening sx notedleft foot 2 nd toe-recent ly completed IV antibiotic s ertapenem 1 gm daily for 6 weeks for osteomyeli tis. she continues to have discomfort . follow up xray results: no acute abnormalit y is seen in the left foot. Mixed anxi ety and depressive disorder 517895572 F41.8 Stable with delusional thoughts, she thinks staff is stealing her clothes.Co ntinue escitalopr am 30 mg qd, trazadone 25 mg qhs and 12.5 mg BID prn.Monito r mood for negative changes.pt encouraged to continue to engage in social activities .followed by psych prn recently seen 07/06 no new recommenda tion. Chronic di astolic heart failure 478580600 I50.32 stable.euv olemic- she denies any chest pain or shortness of breathweig ht stable noted 166-168Con tinue furosemide 10 mg qdMonitor resp. status, fluid status, wts and labs. [id number] FRIEDA ANDERSON [address] [place] [address] 07/20/2024 11:57:24 07/21/2024 16:08:03 Hammer toe 025869413 M20.42 stable, no worsening sx notedleft foot 2 nd toe-recent ly completed IV antibiotic s ertapenem 1 gm daily for 6 weeks for osteomyeli tis. she continues to have discomfort . follow up xray results: no acute abnormalit y is seen in the left foot. Mixed anxi ety and depressive disorder 788858270 F41.8 07/19: seen by child psychology teacher will review notes when available. Stable with delusional thoughts, she thinks staff is stealing her clothes.Co ntinue escitalopr am 30 mg qd, trazadone 25 mg qhs and 12.5 mg BID prn.Monito r mood for negative changes.pt encouraged to continue to engage in social activities .followed by psych prn recently seen 07/06 no new recommenda tion. Chronic di astolic heart failure 839146242 I50.32 stable.euv olemic- she denies any chest pain or shortness of breathweig ht stable noted 166-168Con tinue furosemide 10 mg qdMonitor resp. status, fluid status, wts and labs. [id number] FRIEDA ANDERSON [facility] [address] [place] [phone] 1 07/23/2024 11:46:33 07/24/2024 11:44:07 Hammer toe 857726844 M20.42 stable, no worsening sx notedleft foot 2 nd toe-recent ly completed IV antibiotic s ertapenem 1 gm daily for 6 weeks for osteomyeli tis. she continues to have discomfort . follow up xray results: no acute abnormalit y is seen in the left foot. Mixed anxi ety and depressive disorder 569229578 F41.8 StableCont inue escitalopr am 30 mg qd, trazadone 25 mg qhs and 12.5 mg BID prn.Monito r mood for negative changes.pt encouraged to continue to engage in social activities .followed by psych prn recently seen 07/06 no new recommenda tion. Chronic di astolic heart failure 399661752 I50.32 stable.euv olemic- she denies any chest pain or shortness of breathweig ht stable noted 166-168Con tinue furosemide 10 mg qdMonitor resp. status, fluid status, wts and labs. Chronic ob structive pulmonary disease 55615742 J43.8 breathing easy and unlabored. Continue Advair 250/50 BID and albuterol nebs q 6 hrs prnMonitor resp status. [id number] FRIEDA ANDERSON [address] [address] 5 09/10/2024 08:43:17 09/11/2024 12:05:09 Mixed anxiety and depressive disorder 980242168 F41.8 mild emotional distress, crying during assessment 2/2 ble painContin ue escitalopr am 30 mg qd, trazadone 25 mg qhs and 12.5 mg BID prn.psych prn Chronic di astolic heart failure 256033806 I50.32 euvolemic- she denies any chest pain or shortness of breathweig ht stableCont inue furosemide 20 mg qdMonitor resp. status, fluid status, wts and labs. Chronic ob structive pulmonary disease 70025650 J43.8 breathing easy and unlabored. Continue Advair 250/50 BID and albuterol nebs q 6 hrs prnMonitor resp status. Neuropathy 239011248 G62 .9 see hpiBLE without sx of infectiono n gabapentin 300 mg at hs -she has been having increasing sx and weakness, requiring 2 people assist.dis cussed increasing gabapentin to BID and re eval in a few days for effect.hx diabetes/n ot on meds/ will get updated A1c. (06/2023 noted 6.1) Restless l egs syndrome 10048566 G25.81 Continue requip 2 mg bid [id number] FRIEDA ANDERSON [address] [address] 09/14/2024 10:23:24 09/15/2024 14:23:56 Neuropathy 622550923 G62.9 BLE without sx of infectiong abapentin 300 mg BIDshe has been having increasing sx and weakness, requiring 2 people assist.hx diabetes/n ot on meds/ will get updated A1c. (06/2023 noted 6.1) - labs ord for today not completed will re-order. Restless l egs syndrome 86942598 G25.81 Continue requip 2 mg bid [id number] FRIEDA ANDERSON [facility] J[facility] [address] [place] [address] [place] [address] 10/02/2024 11:01:09 10/05/2024 13:31:21 Pain of left ankle joint [id number] 6590015 M25.572 localizedn on pitting left ankle swelling, no redness or warmthno foot discolorat ion, color is normal+CMS , pain with ROMplan for xray, labs with uric acid,apply ice 15 minutes to ankle TIDapply tyrone wrap compressio n dailywill schedule tylenol 650 mg TID and Motrin 400 mg BIDPT/OT eval and tx [id number] FRIEDA ANDERSON DARRIN JENSEN [address] [place] [address]853 5 10/05/2024 11:01:37 10/06/2024 13:54:09 Pain of left ankle joint 7926197455 0206157 M25.572 localized/ swelling noted to have improved [...] BIDPT/OT eval and tx Contusion of thigh 83537 003 S70.10XA see hpi/left thightende r to touchmonit or as it healsdiscu ssed with nursingcon tinue scheduled tylenol [id number] MD DARRIN Roe [address] [place] [address] [place] [address] 11/25/2024 11:52:19 11/26/2024 15:26:27 Acute low back pain 867649228 M54.59 acute on chronic low back pain with point tenderness lumbar spinex ray to eval for concern vert comp fxx ray left hipchange tramadol 50 mg to q 6 prnmonitor need for ortho eval Chronic di astolic heart failure 061718179 I50.32 euvolemic- she denies any chest pain or shortness of breathweig ht stableCont inue furosemide 20 mg qdMonitor resp. status, fluid status, wts and labs. 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 G92.8 increased confusion at hospital is currently A and O x 3 with poor short term recall Asthenia 65689202 R53.1 therapy to re-evaluat e to determine baseline Cardiac en zymes outside reference range 337463711 R89.0 eval by cards now onasa 81 mg qdlipitor 40 mg qdmonitor sx Essential hypertension 88935814 I10 lasix 20 mg qd prn for weight gain associated with chfstarted on norvasc 2.5 mg qdmonitor bp and need to titrate Chronic di astolic heart failure 266842717 I50.32 Continue furosemide 20 mg qd prn weight gain Paroxysmal atrial flutter 411139662 I48.3 amiodarone 200 mg qdmonitor rate control Impaired cognition 30670 6002 R41.89 question of poor insight prior to above infectionb eing eval by psych for competency evalwill await recs [id number] MD DARRIN Roe [address] [place] [phone] 5 01/06/2025 11:35:48 01/08/2025 08:30:51 Toxic metabolic encephalopathy 788732109 G92.8 see aboveincre ased confusion at hospital is currently A and O x 3 with poor short term recallnow invokedmon itor level of insight Impaired cognition 70785 6002 R41.89 appreciate psych eval and recswill invoke HCPmonitor level of insight as patient is alert and oriented to person place and time which she states easily Asthenia 19822434 R53.1 coordinate with therapymon itor fall risk [id number] DANIELLE GOFF CNP [address] [place] [address] 5 01/13/2025 11:16:32 01/20/2025 11:19:42 Chronic diastolic heart failure 189515994 I50.32 stable, euvolemic- she denies any chest pain or shortness of breathweig ht stable 160-170Con tinue furosemide 20 mg qdMonitor resp. status, fluid status, wts and labs. Chronic ob structive pulmonary disease 79264413 J43.8 stablemoni tor respirator y status and albuterol utilizatio n Gastroesop hageal reflux disease 845924881 K21.9 protonix 40 mg qdmonitor sx control Mixed anxi ety and depressive disorder 636578654 F41.8 mood stable.Con tinue escitalopr am 30 mg qd, trazadone 25 mg qhs and 12.5 mg BID prn.psych prn Restless l egs syndrome 16994651 G25.81 StableCont inue requip 2 mg bid Impaired cognition 48117 6002 R41.89 appreciate psych eval and recsHCP invoked.mo nitor level of insight as patient is alert and oriented to person place and time which she states easily Toxic meta bolic encephalopathy 580487362 G92.8 see aboveincre ased confusion at hospital is currently A and O x 3 with poor short term recallnow invokedmon itor level of insight Asthenia 09403017 R53.1 coordinate with therapymon itor fall risk Respirator y syncytial virus infection 57087444 B33.8 [id number] No acute respirator y distress noted.Cont inue supportive care.Monit or respirator y status. [id number] [facility] [address] [place] [address] [place] BROUSSARD [address] 5 04/14/2025 05:51:03 04/16/2025 13:06:59 Chronic diastolic heart failure 766586073 I50.32 Continue furosemide 20 mg qdMonitor resp. status, fluid status, wts and labs. Chronic ob structive pulmonary disease 41286094 J43.8 stablemoni tor respirator y status and albuterol utilizatio n Gastroesop hageal reflux disease 576150352 K21.9 protonix 40 mg qdmonitor sx control Mixed anxi ety and depressive disorder 235068034 F41.8 Continue escitalopr am 30 mg qd, trazadone 25 mg qhs and 12.5 mg BID prn.psych prn Restless l egs syndrome 63878598 G25.81 Continue requip 2 mg bid Impaired cognition 11544 6002 R41.89 ? underlying dementiawa x and wane with confusione xpect decline Chronic ki dney disease 800684266 N18.2 Renal function is at baselinemo nitor labsavoid nephrotoxi c drugs Essential hypertension 92198730 I10 lasix 20 mg qd prn for [...] [place]: [employer] Shreya M Gravel [id number] 4 Shreya Gravel 04/14/2025 2 [place] [id number] Shreya Gravel [id number] Shreya Gravel Notes Date Note Type Note Provider Name and Address Organization Details Recorded Time 11/25/2024 text/html Patient is a 89 yo female resident due for routine rounding also seen for acute rounding with complaint of chronic pain. PMH chf, a flutter, gerd, anemia, copd, chronic pain Rex Bass MD [address] [facility], [address], [place], [address], [facility] [employer] 11/25/2024 12:03:07 12/14/2024 text/html Patient is an [...] underlying cognitive impairment Rex Bass MD [address] [facility], [address], [place], [address], [facility] 12/14/2024 10:00:50 01/06/2025 text/html Patient is [...] belong throughout day. Rex Bass MD [address] [facility], [address], [place], [address], [facility] 01/06/2025 11:42:10 01/13/2025 text/html Shreya is [...] syndrome, depression, anxiety, LLE cellulitis. DANIELLE GOFF, [employer] [address] [facility], [address], [place], [address], [facility] 01/13/2025 11:53:02 04/14/2025 text/html 89 yo female LTC resident seen for routine rounding. Medically she is stable, she is at her baseline in NAD. FRIEDA ANDERSON [address] [facility], [address], [place], [address], [facility] 04/15/2025 19:03:46 OBGyn Episode No OBEpisode recorded.
--- OUTSIDE RECORDS SUMMARY | 2025-09-21 19:19 | XMS_ITS | Data Portability ---
Author Organization [place] - [facility] Address [address] [place] [address] Care Team Providers Care Wilton Weaver Name Role Phone ABAD ISLAS Primary Care Provider [facility] OTHER Assessment Encounter Date Assessment [...] after care of this patient according to [facility]'s infection prevention protocols. Not available 08/31/2021 20:13:40 [...] after care of this patient according to [facility]'s infection prevention protocols. Not available 09/02/2021 22:38:16 03/21/2022 03/21/2022 Overview/History : 86 yo F established with new to this provider presents for evaluation of wounds to both lower legs s/p fall in February. The left wound failed to close with sutures and she developed an infection as well. She is followed by [facility] for wound care of both legs. She has developed burning pain with and redness to both wounds worse on the left. [facility] is coming in every two [...] left extremity that is consistent with cellulitis. [facility] is in every 2 [...] after care of this patient according to [facility]'s infection prevention protocols. [email or web address] Not available 03/21/2022 20:18:44 Plan of Treatment Reminders Order Date Submit Date Provider Last Modified By Organization Details Last Modified Time Details Appointments None recorded. Lab rapid SARS CoV + SARS CoV 2 Ag, QL IA, respiratory specimen 2020 021 [email or web address] 3 [facility], [address] [place] [address], [address], 11:23:08 Referral None recorded. Procedures None recorded. Surgeries None recorded. Imaging US, duplex, venous, extremity, limited - swelling of left lower extremity, s/p fall and wound to left lower extremity r/o DVT pt is homebound,d oes not drive 2021 022 MAGDY [facility] ([facility] [address] [place], [address], 2 18:21:15 XR, foot, 3 or more view - r/o right 2nd toe fracture. call pt @ 2021 022 [email or web address] [facility] Corporate Office ([facility] [address] [place], [address], 2 10:17:17 XR, chest, 2 view 2020 021 [email or web address] [facility] ([facility] [address] [place], [address], 16:59:08 Medication Orders cephalexin 500 mg capsule 2021 022 [email or web address] [id number], [address] [place], [address], 16:20:51 cephalexin 500 mg capsule 2021 022 MAGDY [id number], [address] [place], [address], 16:21:00 cephalexin 500 mg capsule 2021 022 [email or web address] [id number], [address] [place], [address], 15:51:19 azithromyci n 250 mg tablet 2020 021 [email or web address] [facility], [address] [place], [address], 13:35:29 Patient TargetsNo targets recorded. Patient Instructions Encounter Date Encounter Id Patient Instructions Last Modified By Organization Details Last Modified Time 08/31/2021 [id number] What is coronavi ethel disease 2019? Coronavirus disease 2019 (COVID-19) is a respiratory illness that can spread from person to person. The virus that causes COVID-19 is a novel coronavirus that was first identified during an investigation into an outbreak in [facility]. Can I get COVID-19? Yes. COVID-19 [...] least 20 seconds. Use an alcohol-based hand gel coater that contains at least 60% alcohol if [...] (EUA). The EUA is supported by the District Attorney of Health and Human Service s (HHS [...] or worsen. Not available 08/31/2021 20:06:42 09/02/2021 [id number] [facility] you [facility] yo ur [facility]. We cannot always find the [...] condition between 8am-10pm, please call [facility] at [phone] to help navigate your care. [email or web address] pablo Not available 09/02/2021 22:29:43 12/08/2021 [id number] Thank you for yo ur visit with [facility] today. We cannot always find the exact [...] in your condition between 8am-10pm, please call [facility] at [phone] to help navigate your care. Thank you for your visit with [facility] today. You do not appear to have [...] in your condition between 8am-10pm, please call [facility] at [phone] to help navigate your care. [email or web address] Not available 12/08/2021 17:46:11 03/21/2022 [id number] Thank you for yo ur visit with [facility] today. You may have had laboratory tests [...] in your condition between 8am-10pm, [facility] at [phone] to help navigate your care. [email or web address] Not available 03/21/2022 17:19:04 Reason for Referral None Reported. Results Created Date Observation Date Name Description Value Unit Range Abnormal Flag Note LastModifiedBy Organization Detail LastModifiedTime 08/31/20 21 08/31/2021 rapid SARS CoV + SARS CoV 2 Ag, QL IA, respi rator y speci men Covid-19 (ref: neg) positi ve Not Available [facility] [address] [place], [address], 08/31/2021 11:22:25 08/31/20 21 08/31/2021 rapid SARS CoV + SARS CoV 2 Ag, QL IA, respi rator y speci men Control Visual ized/V alid Not Available [facility] [address] [place], [address], 08/31/2021 11:22:25 08/31/20 21 08/31/2021 rapid SARS CoV + SARS CoV 2 Ag, QL IA, respi rator y speci men Location [facility], [facility] Saida canas s , [address] [place] [address], [id number] Not Available [facility] [address] [place], [address], 08/31/2021 11:22:25 08/31/20 21 08/31/2021 rapid SARS CoV + SARS CoV 2 Ag, QL IA, respi rator y speci men Race & Ethnicity Other White Not Available [facility] [address] [place], [address], 08/31/2021 11:22:25 08/31/20 21 08/31/2021 rapid SARS CoV + SARS CoV 2 Ag, QL IA, respi rator y speci men Language Englis h Not Available [facility] [address], [place], [address], 08/31/2021 11:22:25 09/01/20 21 XR, chest , 2 view No observ ation record ed. [email or web address] ([facility]) [address] [facility], [place], [address], 09/02/2021 18:27:35 03/02/20 22 03/02/2022 venou s [...] MIRAMONTES M.D. 022 6:10:3 5 PM EDT. [email or web address] [employer] [address] [facility] [address], [place], [address], 03/04/2022 22:42:26 Result Notes None recorded. Problems Name Problem SNOMED Code Status Onset Date Resolution Date Notes Provider Name and Address Organization Details Recorded Time Hypertensive disorder 50998839 Active 2018 [place] [facility] 17:08:43 Hypertensive disorder 37238846 Active 2019 [place] [facility] 17:08:43 Problem Notes None recorded. Procedures Surgical History Date Name Laterality Status Provider Name and Address Organization Details Recorded Time 021 Medication Review completed Shania Marrero NP [address] [place], [address], [place] [facility] 10/22/2020 12:08:57 021 IV Start Procedure - completed JOSSE SALGADO NP [address] [place], [address], [place] [facility] 10/20/2020 12:39:22 020 Venipuncture - completed TAE SESAY [address] [place], [address], [place] [facility] 10/27/2019 23:49:05 cholecystectomy completed Carly DUBON NP [address] [place], [address], [place] [facility] 08/31/2021 11:12:48 hysterectomy completed Carly MCKEON NP [address] [place], [address], [place] [facility] 08/31/2021 11:12:58 Cabg vein four completed Carly MCKEON NP [address] [place], [address], [place] [facility] 08/31/2021 11:13:24 Imaging Results [...] completed Not Available Not Available Not Available [employer] Ultra Test strips TESTS DAILY FOR DM, [...] /min 96.7 [degF] 112/60 mm[Hg] Not Available [facility] 2 13:37:22 Date Recorded Oxygen saturation Respiratory rate Heart rate Body temperature Systolic And Diastolic Provider Name and Address Organization Details Last Updated DateTime 2 97 % 16 /min 71 /min 98.5 [degF] 116/68 mm[Hg] Not Available [facility] 2 15:55:18 Date Recorded Body temperature Oxygen saturation Heart rate Respiratory rate Systolic And Diastolic Provider Name and Address Organization Details Last Updated DateTime 1 97.5 [degF] 95 % 71 /min 20 /min 130/68 mm[Hg] Not Available [facility] 1 11:02:38 Date Recorded Oxygen saturation Respiratory rate Body temperature Heart rate Systolic And Diastolic Provider Name and Address Organization Details Last Updated DateTime 1 96 % 22 /min 98.6 [degF] 68 /min 124/78 mm[Hg] Not Available [facility] 1 16:52:24 Social History Question Answer Notes LastModified by Organizat ion Details LastModified Time Tobacco Smoking Status Former Smoker JOSSE SALGADO, GOLDIE [address] [place], [address], [place] [facility] 12/26/2019 13:07:15 Do You Have An Advance Directive? Yes Information not available 12/26/2019 What Is Your Code Status? Full Code Information not available 12/26/2019 Drugs Abused None [email or web address] Information not available 10/17/2020 How Many Days In The Past Year Have You Had A Heavy Drinking Consumption (4+ Female, 5+ Male)? 0 [email or web address] Information not available 10/17/2020 Within The Past 12 Months, Has It Happened That The Food You Bought Just Didn't Last And You Didn't Have Money To Get More. No [email or web address] Information not available 10/17/2020 Within The Past 12 Months, Have You Worried That Your Food Would Run Out Before You Got Money To Buy More. No [email or web address] Information not available 10/17/2020 Fall Risk: Do [...] Visiting Friends Or Family Or Going To Buddhism Or Club Meetings) 1 Or 2 Times Per Week [email or web address] Information not available 10/17/2020 Excessive Alcohol Or Drug Use No [email or web address] Information not available 10/17/2020 We Know From Many Of Our Patients That Covering All Of Their Costs Can Be Difficult At Times. This Can Cause Stress And Impact Health. In The Past Year, Have You Been Unable To Get Any Of The Following When It Was Really Needed? No [email or web address] Information not available 10/17/2020 What Is Your Housing Situation Today? I Have Housing Information not available 10/17/2020 Would You Like Help Connecting To Resources? None [email or web address] Information not available 10/17/2020 Marital Status [email or web address] Informatio n not available 10/17/2020 What Was The Date Of Your Most Recent Tobacco Screening? 02/23/2019 Information not available 01/20/2020 Has Tobacco Cessation Counseling Been Provided? No [email or web address] Information not available 01/20/2020 How Many Years [...] N Cancer N Dementia N Stroke N Hypothyroidism N Depression Y COPD Y [...] ICD10 Code Diagnosis IMO Codes Diagnosis Note [id number] TAE RAMIREZ [facility] [address] [place] [address] 02/07/2019 08:54:53 02/10/2019 15:05:36 Swelling of lower leg 965959845 R22.40 Wheezing 58082614 R06.2 resolved Chronic ob structive pulmonary disease 62993523 J44.9 Congestive heart failure 82434408 I50.9 28457 TAE SESAY [facility] [address] [place] [address] 02/19/2019 14:54:40 02/24/2019 12:56:57 Edema of lower extremity 177775840 R60.0 [id number] JOSSE SALGADO NP [facility] [address] [place] [address] 02/23/2019 16:49:50 02/24/2019 13:23:51 Low back strain 866201456 S39.012A [id number] TAE SESAY [facility] [address] [place] [address] 10/27/2019 14:16:46 10/28/2019 10:09:40 Edema of lower extremity 277885097 R60.0 Pain in ri ght lower limb 407707939 M79.604 Tear of skin 199119795 T 14.8XXA [id number] JOSSE SALGADO NP [facility] [address] [place] [facility] [place] [address] 12/26/2019 12:57:09 12/29/2019 00:46:41 Facial laceration 739434262 S01.81XA Fall on sa me level from slipping, tripping or stumbling 052329514 W01.0XXA [id number] TAE SESAY [facility] [address] [place] [address] 01/16/2020 15:03:33 01/20/2020 13:32:20 Low back strain 594872271 S39.012A Low back pain 565599629 M54.5 [id number] Mayra Lee NP [facility] [address] [place] [address] 08/20/2020 11:06:15 08/23/2020 10:14:53 Tear of skin 083993354 T14.8XXA 055229 Mirela Mi RN [facility] [address] [place] [address] 08/22/2020 12:46:45 08/22/2020 13:06:28 [id number] JENSEN ZARCO NP [facility] [address] [place] [address] 08/22/2020 15:02:13 08/22/2020 21:37:57 Open wound of lower leg 676226578 S81.802A [id number] TAE CLEMONS [facility] [address] [facility] [place] [address] 10/17/2020 11:49:50 10/18/2020 11:22:26 Cellulitis of lower limb 361417401 L03.119 Swelling of lower leg 44 0319626 R22.40 [id number] JOSSE SALGADO NP [facility] [address] [place] [address] 10/20/2020 11:54:28 10/21/2020 12:53:21 Cellulitis of lower limb 704961228 L03.119 Exposure t o communicable disease 831799121 Z20.828 [id number] Shania Marrero, GOLDIE [facility] [address] [place] [address] 10/22/2020 11:14:08 10/24/2020 17:43:41 Wound cellulitis 553687323 L03.90 [id number] JENSENLian ZARCO NP [facility] [address] [place] [address] 02/02/2021 14:10:24 02/03/2021 13:29:29 Cellulitis of left lower limb 7880708410 5226950 L03.116 [id number] TAE KNOWLES [facility] [address] [place] [address] 02/06/2021 14:32:51 02/07/2021 12:44:05 Cellulitis of lower leg 676252227 L03.119 Deep vein thrombosis suspected 717907758 Z13.6 [id number] Mayra Lee NP [facility] [address] [place] [address] 04/03/2021 20:43:28 04/05/2021 23:52:12 Dizziness present 462220741 R42 Overview/H istory: Patient is an 85 [...] medical decision making today. Low back pain 499073215 M54.5 Unintentio nal weight gain 7233921741 64244 R63.5 [id number] Carly MCKEON NP [facility] [address] [place] [address] 08/31/2021 10:49:08 09/06/2021 16:59:08 COVID-19 217041868 U07.1 + rapid Cough 68698258 R05.9 dry cough Chronic ob structive pulmonary disease 86990331 J44.9 pending [facility] enrollment , Rx to be sent by TAE Quinones for z-geno and proair 90 mcg 2 puffs every 4-6 hours as needed for fine scattered bilateral wheezepati ent declines any current Rx for GWEN Lethargy 590638773 R53.8 3 Exposure t o SARS-CoV-2 377655010 Z20.822 reports not leaving her apartment, has friend who gets mail for her, however she did go to [facility] ED on 08/27 for abdominal pain, nausea, diarrhea.s he denies any known exposure but high risk in ED [id number] Carly MCKEON NP [facility] [address] [place] [address] 09/02/2021 16:39:33 09/06/2021 11:49:43 COVID-19 430033787 U07.1 re-evaluat ion to monitor O2 which is 96 RAcurrentl y on day 3 of zpak Chronic ob structive pulmonary disease 42033107 J44.9 pt reports compliance with inhalers [id number] TAE Rosales [facility] [address] [place] [address] 12/08/2021 17:45:03 12/09/2021 10:11:45 Pain of toe of right foot 5624936245 14052 M79.674 Proper Personal Protective Equipment (PPE), including gloves, eye protection and masks were donned and doffed senia shields and all equipment cleaned using approved technique with germicidal disposable wipes prior to and after care of this patient according to [facility]'s infection prevention protocols. Overview/H istory: 86 [...] necrotic appearance , fevers, chest pain, sob. [id number] TAE Blancas [facility] [address] [place] [address] 02/28/2022 13:02:35 03/02/2022 12:14:09 Suspected soft tissue infection 3876417263 60598 Z20.818 Localized swelling of left lower leg 7253092975 3862816 R22.42 [id number] Yue Molina NP [facility] [address] [place] [address] 03/21/2022 15:37:31 03/24/2022 15:14:02 Wound cellulitis 504548966 L03.90 Health Concerns Section Related Observation LastModified by Organization Detai ls LastModified Time None Recorded Concern Status LastModified by Organization Details LastModified Time None Recorded Advance Directives Directive Y: Payers Insurance Date Sequence Insurance Name Policy Number Policy Anders Covered Member ID Anders Member ID Guarantor Name 02/07/2021 1 [place] [employer] Shreya M Gravel [id number] Shreya Gravel 02/07/2021 1 *SELF PAY* Shreya Gravel [id number] Shreya Gravel 02/07/2021 2 [facility] [id number] Shreya Gravel [id number] Shreya Gravel 02/07/2021 1 [place] [employer] Mone Gravel [id number] Shreya Gravel 02/07/2021 1 [place] Shreya M Gravel [id number] Shreya Gravel 02/07/2021 2 [place] Mone Gravel [id number] Shreya Gravel 02/07/2021 1 *SELF PAY* Mone Gravel [id number] Shreya Gravel 02/07/2021 2 [place] Mone Gravel [id number] Shreya Gravel 03/21/2022 PENDING Shreya Gravel [id number] Shreya Gravel 03/21/2022 PENDING Shreya Gravel [id number] Shreya Gravel 03/24/2022 2 [place] [id number] Shreya Gravel [id number] Shreya Gravel 03/21/2022 PENDING Shreya Gravel [id number] Shreya Gravel 03/28/2022 1 [place] Shreya M Gravel [id number] Shreya Gravel 02/07/2021 2 [place] [id number] Heather Gravel [id number] Shreya Gravel 02/07/2021 1 [place] Shreya Gravel [id number] Shreya Gravel 02/07/2021 1 [place] Shreya M Gravel [id number] Shreya Gravel 02/07/2021 2 [facility] Shreya Gravel [id number] Shreya Gravel 02/07/2021 2 [facility] Shreya Gravel [id number] Shreya Gravel 02/07/2021 1 *SELF PAY* Shreya Gravel [id number] Shreya Gravel 02/07/2021 2 [facility] Shreya Gravel [id number] Shreya Gravel 04/03/2021 2 [place] [id number] Shreya Gravel [id number] Shreya Gravel 05/01/2021 1 [facility] Shreya Gravel [id number] Shreya Gravel 08/31/2021 2 [place] [id number] Shreya Gravel [id number] Shreya Gravel 09/06/2021 2 [facility] Shreya Gravel [id number] Shreya Gravel 09/02/2021 2 [place] [id number] Shreya Gravel [id number] Shreya Gravel 09/06/2021 2 [place] [id number] Shreya Gravel [id number] Shreya Gravel 12/08/2021 2 [place] [id number] Shreya Gravel [id number] Shreya Gravel 03/24/2022 2 [place] [id number] Shreya Gravel [id number] Shreya Gravel 03/21/2022 1 [place] Shreya M Gravel [id number] Shreya Gravel 02/07/2021 2 [place] [id number] Heather Gravel [id number] Shreya Gravel Notes Date Note Type [...] contacts. On 08/27/2021 she reports going to [facility] ED for evaluation of abdominal pain, nausea, diarrhea, and was d/c home same day with Rx for zofran in which she did not case picker. She reports 2 nights ago waking up in the morning with diarrhea. She denies any fevers, shortness of breath, difficulty breathing, chest pain, palpitations, dizziness, unilateral weakness, change in mental status, vision, speech, taste and or smell. Carly MCKEON NP [address], [place], [address], [place] [facility] 08/31/2021 20:14:52 09/02/2021 text/html [...] status. Carly MCKEON NP [address], [place], [address], [place] [facility] 09/02/2021 22:38:32 12/08/2021 text/html [...] no CP TAE Rosales [address], [place], [address], [place] [facility] 12/08/2021 18:26:26 02/28/2022 text/html [...] got home and had infection went to [facility] was admitted for a week, then went to [facility] for rehab. 02/08/2022 home. TAE Blancas [address], [place], [address], [place] [facility] 03/08/2022 20:04:51 03/21/2022 text/html 86 yo F with wounds to the left s/p fall in early February. She had sutures in the left leg that became infected and a smaller wound to the middleton of the right lower leg. [facility] is following her for her wounds and are in every 2 days for assessment and dressing changes. Today she states she has burning to her legs and redness to of both legs.F/u with PCP in 03/30/22. Yue Molina NP [address], [place], [address], [place] [facility] 03/21/2022 20:19:51 OBGyn Episode No OBEpisode recorded.
--- OUTSIDE RECORDS SUMMARY | 2025-09-21 19:20 | XMS_ITS | Patient Health Record ---
Author Organization [facility] Address [address] [place] [address] Care Team Providers Care Issuing Operator Name Role Phone Shelia DIAZ, Rex Primary Care Provider Unavailab sarahi Lu Holder Unavailable [phone] Allergies No Known Allergies Reason For Referral [...] Problem Information temporarily unavailable Unspecified atherosclerosis of [place] arteries of extremities, bilateral legs (I70.203) Active [...] X ray : Foot, right 2V 06/06/2012 61145-VQSDGEV NAIL, 6 OR MORE 03/27/2012 64700-XJCVHBX NAIL, 6 OR MORE 08/22/2012 54318-QKTMMCU NAIL, 6 OR MORE 06/13/2012 02799-ERNDWOX NAIL, 6 OR MORE 08/28/2011 67723-JZNQNNS NAIL, 6 OR MORE 11/13/2011 30194-JHYVFEE NAIL, 6 OR MORE 01/18/2012 16826-CCMWQNJ NAIL, 6 OR MORE 11/06/2012 77102-FZQEPBV NAIL, 6 OR MORE 02/10/2013 74576-ZKYKBKB NAIL, 6 OR MORE 04/14/2013 40729-JQQIJYX NAIL, 6 OR MORE 05/21/2013 55928-FVZKRFF NAIL, 6 OR MORE 07/09/2013 21205-LCPOXRQ NAIL, 6 OR MORE 10/13/2013 98805-NSENYBH NAIL, 6 OR MORE 04/23/2014 71879-BUGXBDS NAIL, 6 OR MORE 01/15/2014 77548-GDUNMWW NAIL, 6 OR MORE 07/22/2014 53124-EXGRWXB NAIL, 6 OR MORE 10/26/2014 21924-OYWTZMW NAIL, 6 OR MORE 02/11/2015 16154-GOKXDYM NAIL, 6 OR MORE 04/19/2015 85758-LKCWZCN NAIL, 6 OR MORE 07/12/2015 92565-GTKLOYC NAIL, 6 OR MORE 10/18/2015 15280-YWBHUKO NAIL, 6 OR MORE 12/20/2015 40884-AFNPJMG NAIL, 6 OR MORE 02/28/2016 01963-ABRCPGG NAIL, 6 OR MORE 06/15/2016 79809-HIWSPWI NAIL, 6 OR MORE 09/12/2016 56179-XWZGPJJ NAIL, 6 OR MORE 12/05/2016 93434-CLNFRXN NAIL, 6 OR MORE 02/22/2017 41822-XXAQWMH NAIL, 6 OR MORE 10/30/2017 49027-VKWKMBU NAIL, 6 OR MORE 02/04/2018 73499-VZNERRG NAIL, 6 OR MORE 04/24/2018 51444-VMEMUJL NAIL, 6 OR MORE 07/23/2018 96842-RCQACIS NAIL, 6 OR MORE 05/24/2017 47305-FNZVQFS NAIL, 6 OR MORE 08/06/2017 47200-URENRKM NAIL, 6 OR MORE 05/29/2019 08012-NEGJKJL NAIL, 6 OR MORE 11/11/2019 44047-DMHANIE NAIL, 6 OR MORE 03/02/2020 50779-KEFKPDY NAIL, 6 OR MORE 05/04/2020 17502-QBXXQMH NAIL, 6 OR MORE 07/08/2020 20523-VQLYFAT NAIL, 6 OR MORE 02/17/2021 82414-QHJLQMW NAIL, 6 OR MORE 06/20/2021 70697-ZVYFHUN NAIL, 6 OR MORE 11/07/2021 06863-LWBGKEM NAIL, 6 OR MORE 01/16/2022 87250-IAATCCZ NAIL, 6 OR MORE 03/20/2022 55416-UNYMYDQ NAIL, 6 OR MORE 06/12/2022 94704-OOZHWSL NAIL, 6 OR MORE 09/12/2022 12190-LCDIKCW NAIL, 6 OR MORE 01/22/2023 69667-DEWZUDL NAIL, 6 OR MORE 05/29/2023 79411-Juyi Destruction, -14 01/22/2023 11847-Xigd Destruction, -14 07/02/2023 96969-Uhff Destruction, -14 10/16/2022 07265-Zkii Destruction, -14 06/12/2022 59794-Kwoe Destruction, -14 09/12/2022 28706-Sfww Destruction, -14 01/16/2022 22243-Dqhv Destruction, -14 12/19/2021 59632-Arin Destruction, -14 11/07/2021 76928-Clbh Destruction, -14 08/01/2021 85757-Yrxm Destruction, 10-2007/08/2020 01100-Zdsn Destruction, 10-2001/11/2021 05382-Rdrb Destruction, 10-2008/23/2020 64134-Hvnv Destruction, 10-2005/04/2020 97087-Ease Destruction, 10-2003/02/2020 97353-Logz Destruction, 10-2009/18/2019 45932-Ilic Destruction, 10-2011/11/2019 16225-Gtwv Destruction, 10-2007/15/2019 80962-Vnoz Destruction, 10-2005/29/2019 48363-Rqef Destruction, 10-2007/02/2017 83010-Zguj Destruction, 10-2007/23/2018 67826-Rgbl Destruction, 10-2009/10/2018 76907-Uwxn Destruction, 10-2003/26/2017 15416-Ibyx Destruction, 10-2005/24/2017 01359-Todb Destruction, 10-2012/05/2016 80420-Kheq Destruction, 10-2008/01/2016 21665-Vbhz Destruction, 10-2010/24/2016 45543-Enph Destruction, 10-2006/15/2016 23872-Pnud Destruction, 10-2004/05/2016 38453-Vgjm Destruction, 10-2012/20/2015 69802-Vaqx Destruction, 10-2001/24/2016 41921-Imsn Destruction, 10-2010/18/2015 11423-Rveu Destruction, 10-2008/23/2015 78908-Engv Destruction, 10-2004/14/2013 33150-Qcov Destruction, 10-2005/21/2013 91677-Ehcvztcb Plate 09/01/2013 96135-Xqiunomv Plate 07/09/2013 30741-Idkpvdkt Plate 02/10/2013 43884-Kkmjnaec Plate 12/30/2012 91558-Meyzpmnr Plate 10/26/2014 06344-Uzhrhwyy Plate 08/26/2014 20575-Desuwivw Plate 07/22/2014 46955-Piimnljx Plate 04/23/2014 23750-Szpfmjpn Plate 12/04/2013 50595-Tcxovdoy Plate 07/10/2011 41935-Rxlctsjf Plate 01/18/2012 00615-Ztmhpqgj Plate 10/16/2011 43793-Bzoozshd Plate 10/25/2011 47769-Yvkuarcp Plate 11/08/2011 11827-Ozdkgipd Plate 07/11/2012 44032-Nsjrypcy Plate 09/25/2012 49667-Lonuspko Plate 08/22/2012 17058-Mzcqdtek Plate 03/27/2012 02405-Bgahmisi Plate 05/09/2012 86858-Zhenhhfp Plate 06/13/2012 58670-Yxwyrpii Plate 05/31/2015 01977-Mxfxjtlr Plate 07/12/2015 70466-Dxasgxer Plate 04/19/2015 46450-Ewuwqqea Plate 02/11/2015 79745-Inmdjlti Plate 03/04/2014 70290-Hmboctcm Plate 11/25/2014 54863-Fzgcubrl Plate 06/15/2016 17337-Arqkbjis Plate 03/26/2017 25981-Bvwuvcdw Plate 08/06/2017 77873-Ehxqchcz Plate 05/29/2019 89984-Oxngepmi Plate 09/18/2019 10012-Bnaahqhj Plate 07/15/2019 18388-Tarcljol Plate 07/08/2020 91514-Ervnixny Plate 01/11/2021 24569-Eeqfpptv Plate 02/17/2021 47259-Osbrkcnk Plate 03/31/2021 85892-Orgyswtk Plate 06/20/2021 55763-Klnfncgj Plate 01/16/2022 28946-Emvrffxh Plate 11/07/2021 43320-Lczbqkzh Plate 04/24/2022 89716-Cmvtgqam Plate Each Additional 57358-Mlmyykgd Plate Each Additional 10/2021 20511-Sgmmxugp Plate Each Additional 09/2022 65527-Iwlpfssh Plate Each Additional 61319-Gkjomzgl Plate Each Additional 04/2021 70093-Tehczhvl Plate Each Additional 11/2019 60887-Olhesppr Plate Each Additional 86102-Kbxowphg Plate Each Additional 04/2012 19266-Aopotdbz Plate Each Additional 12/2011 06668-Tsqmyhql Plate Each Additional 46574-Jgidgfpu Plate Each Additional 04/2013 77487- Debride <25 sq cm 02/10/2013 80982- Debride <25 sq cm 12/30/2012 63986- Debride <25 sq cm 11/06/2012 28710- Debride <25 sq cm 05/21/2013 98282- Debride <25 sq cm 04/14/2013 21043- Debride <25 sq cm 12/04/2013 06518- Debride <25 sq cm 04/23/2014 67885- Debride <25 sq cm 05/27/2014 26292- Debride <25 sq cm 07/22/2014 89227- Debride <25 sq cm 08/26/2014 39917- Debride <25 sq cm 10/26/2014 90488- Debride <25 sq cm 06/06/2012 56381- Debride <25 sq cm 03/27/2012 01620- Debride <25 sq cm 06/13/2012 04596- Debride <25 sq cm 08/22/2012 67019- Debride <25 sq cm 09/25/2012 94585- Debride <25 sq cm 08/28/2011 25491- Debride <25 sq cm 07/10/2011 58494- Debride <25 sq cm 02/15/2012 62798- Debride <25 sq cm 12/20/2011 00910- Debride <25 sq cm 11/25/2014 12773- Debride <25 sq cm 01/04/2015 55707- Debride <25 sq cm 02/11/2015 08794- Debride <25 sq cm 03/15/2015 37564- Debride <25 sq cm 04/19/2015 82055- Debride <25 sq cm 07/12/2015 35635- Debride <25 sq cm 01/18/2017 00410- Debride <25 sq cm 09/12/2016 17441- Debride <25 sq cm 05/04/2020 31937- Debride <25 sq cm 01/11/2021 94136- Debride <25 sq cm 10/30/2017 90016- Debride <25 sq cm 07/02/2017 85628- Debride <25 sq cm 09/10/2018 47831- Debride <25 sq cm 05/29/2019 16951- Debride <25 sq cm 02/17/2021 27019- Debride <25 sq cm 03/31/2021 81433- Debride <25 sq cm 06/20/2021 45410- Debride <25 sq cm 11/07/2021 71485- Debride <25 sq cm 08/01/2021 45705- Debride <25 sq cm 11/28/2021 91740- Debride <25 sq cm 06/12/2022 64542- Debride <25 sq cm 04/24/2022 19606- Debride <25 sq cm 03/20/2022 51851- Debride <25 sq cm 09/12/2022 34129- Debride <25 sq cm 11/13/2022 31071- Debride <25 sq cm 01/22/2023 87167- Debride <25 sq cm 10/16/2022 15843- Debride <25 sq cm 07/02/2023 05665-ZJENANF SKIN/TISSUE 05/22/2024 62635-VTBGZGT SKIN/TISSUE 01/15/2014 44906-VIEQTNU SKIN/TISSUE 03/04/2014 18684 I&D ABSCESS- SIMPLE,SINGLE 012 49427 I&D ABSCESS- SIMPLE,SINGLE 013 18156-XPVW SKIN LESIONS, 2 TO 4 05/22/20 24 67878- Removal of Foreign Body, Subcut 1 79467-Nbzcfsxo Benign Lesion 0.5cm 11/08 99345-Upyhlndk Benign Lesion 0.5cm 10/25- Ganglion Cyst Injection/Aspiratio n 01/18/2012- Ganglion Cyst Injection/Aspiratio n 07/02/2017 Future Test Test Name Order Date 99328-Kfvrkrwg Plate Each Additional Insurance Providers Payer Name Payer Address Payer Phone Subscriber Number Group Number Insured Name Patient Relationship to Insured Coverage Start Date Coverage End Date Medicare National Govt Svcs Inc [address] [facility] [place] [address] [id number] Shreya Calvert Self - patient is the insured 1 [employer] Blue Shield [address] [place] [address] [id number] Shreya Calvert Self - patient is the [...] Rehab 05/2024 [facility], rehab- leg swelling 05/2023 [facility] fell down 02/2023 [facility] ran over by scooter 02/2023 [facility] heart issues 08/2022 [facility] Cellulitis 07/2022 [facility] heart issues 03/2022 [facility]- cellulitis, day stay, 3 week therap y 01/2022 [facility], rehab- fell 05/2021 [facility] for cellulitis for 5 days 9 [facility] fall 05/05/18 [facility] 2015 [place] ER, tripped bumped head 08/2015 Admitted to [facility] overnight;GERD 03/2015 [facility] - Emergency 11/23/14 & 11/24 Dehydration 11/2011
== END 2025-09-21 10:01 | disposition home or self-care (01) ==
LOC: HO.MMNH3L 10:00
PROVIDERS: Visit Provider Student in an Organized Health Care Education/Training Program
DX: F32.A Depression, unspecified (principal); M19.90 Unspecified osteoarthritis, unspecified site; I50.40 Unspecified combined systolic (congestive) and diastolic (congestive) heart failure
CPT/HCPCS: 81001; 87086; 87493

== ENCOUNTER 2025-09-22 07:16 | Outpatient (REF) | payer MEDICARE, MEDICAID, SELFPAY ==
[2025-09-22 07:19] LABS: MANUAL DIFF FLAG NO
--- OUTSIDE RECORDS SUMMARY | 2025-09-22 07:19 | XMS_ITS | Clinical Summary ---
Author Organization [address] [facility] Address [address] [place] [address] Phone Care Team Providers Care Motel Keeper Name Role Phone Rex Bass MD Primary Care Provider [phone] Allergies Active Allergy Reactions Criticality Noted Date [...] HISTORICAL CHOLECYSTECTOMY OTHER SURGICAL HISTORY 12/14/2013 PROCEDURE: MT EGD PARTIAL/COMPL ESOPHAGOGASTRIC FUNDOPLASTY COLONOSCOPY 02/09/2016 PROCEDURE: HISTORICAL COLONOSCOPY OTHER SURGICAL HISTORY 05/14/2013 PROCEDURE: MT ECHO TRANSTHORAC R-T 2D W/WO M-MODE REC COMP OTHER SURGICAL HISTORY 03/13/2013 PROCEDURE: MT CABG W/ARTERIAL GRAFT THREE ARTERIAL GRAFTS OTHER SURGICAL HISTORY 12/06/2008 PROCEDURE: MT EGD PARTIAL/COMPL ESOPHAGOGASTRIC FUNDOPLASTY CARPAL TUNNEL RELEASE PROCEDURE: MT NEUROPLASTY &/TRANSPOS MEDIAN NRV CARPAL TUNNE; COMMENT: [...] Compression fracture of L1 l umbar vertebra ([facility] [place] V24, [facility] V28) DX:Compression fra cture of L1 lumbar vertebra ([facility]); COMMENT: and t12 vertebra Degeneration macular DX:Degenera tion macular Depression DX:Depression Diabetes type 2, controlled ([facility] V24, [facility] V28) DX:Diabetes type 2, controll ed ([facility]) Diverticulitis DX:Diverticuliti s Elevated LFTs [...] 2 obesi ty Osteoporosis DX:Osteoporosis Primary hyperparathyroidism ([facility] [place] V24) DX:Primary hyperparathyroidi sm ([facility]) Recurrent falls DX:Recurrent fal ls [...] patient's age to complete this topic Insurance [place] MEDICARE Advance Directives Documents on File Type Date Recorded Patient Government Guard Expl anation Health Care Decision (hx) 09/26/2023 AD FARNSWORTH DIRECTIVE Health Care Decision (hx) 05/09/2021 AD FARNSWORTH DIRECTIVE Health Care Decision (hx) 05/09/2021 AD FARNSWORTH DIRECTIVE Care Teams Motel Keeper Relationship Specialty Start Date End Date Rex Bass MD [address], [id number] PCP - General 04/23/24
--- OUTSIDE RECORDS SUMMARY | 2025-09-22 07:20 | XMS_ITS | Patient Health Record ---
Author Organization [facility] Address [address] [place] [address] Care Team Providers Care Costing Analyst Name Role Phone Shelia DIAZ, Rex Primary Care Provider Unavailab sarahi Lu Holder Unavailable [phone] Allergies No Known Allergies Reason For Referral [...] Problem Information temporarily unavailable Unspecified atherosclerosis of [place] arteries of extremities, bilateral legs (I70.203) Active [...] X ray : Foot, right 2V 06/06/2012 34740-GRGWIJW NAIL, 6 OR MORE 03/27/2012 99839-HPUXABV NAIL, 6 OR MORE 08/22/2012 93179-HRPUPGE NAIL, 6 OR MORE 06/13/2012 00826-XAYBKVP NAIL, 6 OR MORE 08/28/2011 97584-VMURZSD NAIL, 6 OR MORE 11/13/2011 36988-YFSDHPM NAIL, 6 OR MORE 01/18/2012 13102-SHUCPJL NAIL, 6 OR MORE 11/06/2012 21578-TFNZOVU NAIL, 6 OR MORE 02/10/2013 37396-NDZXJYT NAIL, 6 OR MORE 04/14/2013 11141-UKGOXHV NAIL, 6 OR MORE 05/21/2013 66397-VOVBCTH NAIL, 6 OR MORE 07/09/2013 19039-RXBLJTX NAIL, 6 OR MORE 10/13/2013 12635-XRNDOKH NAIL, 6 OR MORE 04/23/2014 94454-SUNAFHX NAIL, 6 OR MORE 01/15/2014 66922-KAEWTEF NAIL, 6 OR MORE 07/22/2014 08898-FHXDUPQ NAIL, 6 OR MORE 10/26/2014 76133-SXHHYWT NAIL, 6 OR MORE 02/11/2015 74795-IMHVHFQ NAIL, 6 OR MORE 04/19/2015 77200-YRUNCMT NAIL, 6 OR MORE 07/12/2015 62266-FKTQRMM NAIL, 6 OR MORE 10/18/2015 14240-CPNLPQU NAIL, 6 OR MORE 12/20/2015 26473-LTBBEFZ NAIL, 6 OR MORE 02/28/2016 11853-FGKZCPC NAIL, 6 OR MORE 06/15/2016 27266-ODWLEWS NAIL, 6 OR MORE 09/12/2016 60044-AGDVLUO NAIL, 6 OR MORE 12/05/2016 94146-OGHFZFC NAIL, 6 OR MORE 02/22/2017 97327-NSMLBHI NAIL, 6 OR MORE 10/30/2017 95634-XOXBYVN NAIL, 6 OR MORE 02/04/2018 94703-KFLHFHL NAIL, 6 OR MORE 04/24/2018 15817-SDYYRZB NAIL, 6 OR MORE 07/23/2018 37420-IKPGOFT NAIL, 6 OR MORE 05/24/2017 87656-QMAWHAL NAIL, 6 OR MORE 08/06/2017 58222-FWJLTRD NAIL, 6 OR MORE 05/29/2019 56458-PUTRZTG NAIL, 6 OR MORE 11/11/2019 68411-IMXVUWQ NAIL, 6 OR MORE 03/02/2020 69700-KOIPKZV NAIL, 6 OR MORE 05/04/2020 07701-SJCEOGX NAIL, 6 OR MORE 07/08/2020 14271-TMGEQOC NAIL, 6 OR MORE 02/17/2021 69444-UEGRDHJ NAIL, 6 OR MORE 06/20/2021 08558-KDNUREO NAIL, 6 OR MORE 11/07/2021 15314-NCUCCHK NAIL, 6 OR MORE 01/16/2022 26524-JAQDSER NAIL, 6 OR MORE 03/20/2022 14181-NHDQNGL NAIL, 6 OR MORE 06/12/2022 41461-IGHUBVI NAIL, 6 OR MORE 09/12/2022 90756-BDDQBIG NAIL, 6 OR MORE 01/22/2023 31362-PQRJYKU NAIL, 6 OR MORE 05/29/2023 54526-Tuci Destruction, -14 01/22/2023 74916-Efkg Destruction, -14 07/02/2023 95926-Yqvs Destruction, -14 10/16/2022 51535-Igjt Destruction, -14 06/12/2022 55805-Gbme Destruction, -14 09/12/2022 34816-Yztw Destruction, -14 01/16/2022 37233-Rtyf Destruction, -14 12/19/2021 05935-Ixuj Destruction, -14 11/07/2021 31887-Rghx Destruction, -14 08/01/2021 91159-Vjal Destruction, 10-2007/08/2020 44351-Lvir Destruction, 10-2001/11/2021 33975-Hzwz Destruction, 10-2008/23/2020 45150-Wxzj Destruction, 10-2005/04/2020 70777-Yace Destruction, 10-2003/02/2020 29060-Svll Destruction, 10-2009/18/2019 07362-Bpsn Destruction, 10-2011/11/2019 14861-Zzdt Destruction, 10-2007/15/2019 70744-Fctp Destruction, 10-2005/29/2019 75200-Jwjg Destruction, 10-2007/02/2017 86733-Cezd Destruction, 10-2007/23/2018 48196-Bhpb Destruction, 10-2009/10/2018 40092-Dtfl Destruction, 10-2003/26/2017 90991-Bmiv Destruction, 10-2005/24/2017 91236-Lote Destruction, 10-2012/05/2016 47323-Hbew Destruction, 10-2008/01/2016 62300-Ojvu Destruction, 10-2010/24/2016 86753-Fvcr Destruction, 10-2006/15/2016 89449-Gknl Destruction, 10-2004/05/2016 10403-Fsez Destruction, 10-2012/20/2015 37921-Uilp Destruction, 10-2001/24/2016 74753-Wxpe Destruction, 10-2010/18/2015 62172-Purf Destruction, 10-2008/23/2015 45379-Nmhc Destruction, 10-2004/14/2013 89602-Cgom Destruction, 10-2005/21/2013 67034-Wxioaauk Plate 09/01/2013 57519-Oqjaksst Plate 07/09/2013 00513-Wmvhvyyb Plate 02/10/2013 99678-Eovepqki Plate 12/30/2012 60808-Exkqjcem Plate 10/26/2014 74098-Fzkztknx Plate 08/26/2014 92193-Guoqmxbv Plate 07/22/2014 14805-Facphurx Plate 04/23/2014 03379-Uaddqfwo Plate 12/04/2013 07246-Byrxddqj Plate 07/10/2011 75810-Lsmtknwd Plate 01/18/2012 42971-Rhshaupu Plate 10/16/2011 15553-Niodueev Plate 10/25/2011 70494-Sukmsumk Plate 11/08/2011 54046-Pvpwjrhv Plate 07/11/2012 13217-Wuhxfvft Plate 09/25/2012 35260-Sdokwtao Plate 08/22/2012 57333-Wpgnwsth Plate 03/27/2012 06975-Mfzhfrvk Plate 05/09/2012 21222-Czuomqor Plate 06/13/2012 08641-Oxsxcwjp Plate 05/31/2015 91776-Eykfkacq Plate 07/12/2015 66280-Mwvlpxvm Plate 04/19/2015 42558-Pttejhzg Plate 02/11/2015 84542-Dcuffpwr Plate 03/04/2014 17887-Afhosnms Plate 11/25/2014 21721-Vbyfivzh Plate 06/15/2016 29874-Ndpvsbmx Plate 03/26/2017 80481-Gfmusbbu Plate 08/06/2017 15475-Qccnbqnm Plate 05/29/2019 95370-Clgafoiv Plate 09/18/2019 60797-Wunatngn Plate 07/15/2019 05202-Picnjyzd Plate 07/08/2020 77290-Sngrwlnu Plate 01/11/2021 32420-Evmarmqb Plate 02/17/2021 91380-Npxtbftm Plate 03/31/2021 23522-Hnturhfy Plate 06/20/2021 59446-Mhswthvd Plate 01/16/2022 12164-Kmyogtch Plate 11/07/2021 94618-Leuoibgw Plate 04/24/2022 13477-Fqzuvukb Plate Each Additional 34254-Mqscikwv Plate Each Additional 10/2021 83840-Mjbbzjul Plate Each Additional 09/2022 22137-Tbgddbuo Plate Each Additional 87574-Hstfcqgd Plate Each Additional 04/2021 36080-Bsrrpmys Plate Each Additional 11/2019 84219-Lfwrptsf Plate Each Additional 73694-Outodxma Plate Each Additional 04/2012 67974-Zcwdhqmo Plate Each Additional 12/2011 88242-Wuejwdyy Plate Each Additional 74407-Kqztnywc Plate Each Additional 04/2013 51066- Debride <25 sq cm 02/10/2013 52145- Debride <25 sq cm 12/30/2012 74119- Debride <25 sq cm 11/06/2012 05220- Debride <25 sq cm 05/21/2013 19885- Debride <25 sq cm 04/14/2013 23095- Debride <25 sq cm 12/04/2013 42171- Debride <25 sq cm 04/23/2014 63029- Debride <25 sq cm 05/27/2014 05840- Debride <25 sq cm 07/22/2014 22654- Debride <25 sq cm 08/26/2014 22709- Debride <25 sq cm 10/26/2014 30322- Debride <25 sq cm 06/06/2012 10217- Debride <25 sq cm 03/27/2012 85382- Debride <25 sq cm 06/13/2012 79859- Debride <25 sq cm 08/22/2012 38339- Debride <25 sq cm 09/25/2012 20499- Debride <25 sq cm 08/28/2011 20859- Debride <25 sq cm 07/10/2011 94516- Debride <25 sq cm 02/15/2012 59530- Debride <25 sq cm 12/20/2011 58645- Debride <25 sq cm 11/25/2014 03152- Debride <25 sq cm 01/04/2015 84700- Debride <25 sq cm 02/11/2015 41705- Debride <25 sq cm 03/15/2015 50048- Debride <25 sq cm 04/19/2015 71973- Debride <25 sq cm 07/12/2015 37092- Debride <25 sq cm 01/18/2017 55204- Debride <25 sq cm 09/12/2016 32527- Debride <25 sq cm 05/04/2020 65116- Debride <25 sq cm 01/11/2021 91255- Debride <25 sq cm 10/30/2017 61347- Debride <25 sq cm 07/02/2017 45750- Debride <25 sq cm 09/10/2018 11008- Debride <25 sq cm 05/29/2019 27990- Debride <25 sq cm 02/17/2021 37313- Debride <25 sq cm 03/31/2021 92215- Debride <25 sq cm 06/20/2021 89061- Debride <25 sq cm 11/07/2021 82724- Debride <25 sq cm 08/01/2021 89435- Debride <25 sq cm 11/28/2021 78569- Debride <25 sq cm 06/12/2022 12867- Debride <25 sq cm 04/24/2022 91643- Debride <25 sq cm 03/20/2022 91155- Debride <25 sq cm 09/12/2022 78345- Debride <25 sq cm 11/13/2022 51495- Debride <25 sq cm 01/22/2023 74566- Debride <25 sq cm 10/16/2022 96592- Debride <25 sq cm 07/02/2023 19530-ASIATQW SKIN/TISSUE 05/22/2024 26111-WCEFUYR SKIN/TISSUE 01/15/2014 46699-HXNCHWJ SKIN/TISSUE 03/04/2014 73000 I&D ABSCESS- SIMPLE,SINGLE 012 55903 I&D ABSCESS- SIMPLE,SINGLE 013 53186-JVTS SKIN LESIONS, 2 TO 4 05/22/20 24 84614- Removal of Foreign Body, Subcut 1 07351-Nebqkujk Benign Lesion 0.5cm 11/08 65112-Hjfmiixt Benign Lesion 0.5cm 10/25- Ganglion Cyst Injection/Aspiratio n 01/18/2012- Ganglion Cyst Injection/Aspiratio n 07/02/2017 Future Test Test Name Order Date 91914-Nzshatky Plate Each Additional Insurance Providers Payer Name Payer Address Payer Phone Subscriber Number Group Number Insured Name Patient Relationship to Insured Coverage Start Date Coverage End Date Medicare National Govt Svcs Inc [address] [facility] [address] [id number] Shreya Calvert Self - patient is the insured 1 [employer] Blue Shield [address] [place] [address] [id number] Shreya Calvert Self - patient is the [...] Rehab 05/2024 [facility], rehab- leg swelling 05/2023 [facility] fell down 02/2023 [facility] ran over by scooter 02/2023 [facility] heart issues 08/2022 MM Cellulitis 07/2022 [facility] heart issues 03/2022 [facility]- cellulitis, day stay, 3 week therap y 01/2022 [facility], rehab- fell 05/2021 [facility] for cellulitis for 5 days 9 [facility] fall 05/05/18 [facility] 2015 [place] [facility], tripped bumped head 08/2015 Admitted to [facility] overnight;GERD 03/2015 [facility] - Emergency 11/23/14 & 11/24 Dehydration 11/2011
[2025-09-22 08:01] LABS: Hematocrit 36.3 % (37.0-47.0); Hemoglobin 11.8 g/dl (12.0-16.0); Imm Gran Abs Auto 0.02 X10*3/uL (0.00-0.03); Imm Gran Pct Auto 0.3 % (0.0-0.4); Lymphocytes Absolute Auto 1.4 X10*3/uL (1.2-4.9); Mean Corpuscular HGB Conc 32.5 g/dl (31.0-35.0); Mean Corpuscular Hemoglobin 31.9 pg (27.0-33.0); Mean Corpuscular Volume 98.1 fL (80.0-98.0); NRBC Abs Auto 0.000 X10*3/uL (0.0-0.012); NRBC Pct Auto 0.0 /100WBC (0.0-0.2); Platelet Count 196 X10*3/uL (160-400); Red Blood Count 3.70 X10*6/uL (4.20-5.50); White Blood Count 6.2 X10*3/uL (4.8-10.8)
[2025-09-22 08:08] LABS: Anion Gap 11 (12-20); Blood Urea Nitrogen 18 mg/dL (9-16); Calcium 9.1 mg/dL (8.4-10.2); Carbon Dioxide 24 mmol/L (22-29); Chloride 109 mmol/L (96-108); Estimated Glomerular Filt Rate > 60; Potassium 3.4 mmol/L (3.3-5.1); Sodium 141 mmol/L (135-145)
== END 2025-09-22 07:17 | disposition home or self-care (01) ==
LOC: HO.MMNH3L 07:16
PROVIDERS: Visit Provider Physician Assistant Medical
DX: E11.9 Type 2 diabetes mellitus without complications (principal); I50.9 Heart failure, unspecified; I89.0 Lymphedema, not elsewhere classified
CPT/HCPCS: 36415; 80048; 85025

== ENCOUNTER 2025-09-23 14:19 | Outpatient (REF) | payer MEDICARE, MEDICAID, SELFPAY ==
[2025-09-23 14:41] LABS: Appearance Urine Turbid; Glucose Urine UA Negative (Negative); PH 5.5 (5.0-9.0); Specific Gravity - Urine 1.015 (1.005-1.025); UMIC TRIGGER UA YES
--- OUTSIDE RECORDS SUMMARY | 2025-09-23 18:32 | XMS_ITS | Patient Health Record ---
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, bilateral legs (I70.203) Active [...] X ray : Foot, right 2V 06/06/2012 91365-AOULIYF NAIL, 6 OR MORE 03/27/2012 80435-LVTGUHQ NAIL, 6 OR MORE 08/22/2012 71039-VPRUDLU NAIL, 6 OR MORE 06/13/2012 46759-REEJIMJ NAIL, 6 OR MORE 08/28/2011 89816-REAAAMQ NAIL, 6 OR MORE 11/13/2011 03719-SCCUFQF NAIL, 6 OR MORE 01/18/2012 58048-RLHCHMN NAIL, 6 OR MORE 11/06/2012 15019-RDNEMXW NAIL, 6 OR MORE 02/10/2013 14476-TADHWMJ NAIL, 6 OR MORE 04/14/2013 50119-LAXGZIQ NAIL, 6 OR MORE 05/21/2013 84945-NVCAKQN NAIL, 6 OR MORE 07/09/2013 76328-YARCFKM NAIL, 6 OR MORE 10/13/2013 98919-OZZMZBI NAIL, 6 OR MORE 04/23/2014 73872-ESFLECB NAIL, 6 OR MORE 01/15/2014 26923-XJIWYXD NAIL, 6 OR MORE 07/22/2014 94285-WRTKWYS NAIL, 6 OR MORE 10/26/2014 59781-FYXVXSO NAIL, 6 OR MORE 02/11/2015 94307-JYDWDLO NAIL, 6 OR MORE 04/19/2015 32559-EALKWON NAIL, 6 OR MORE 07/12/2015 22037-ZFLBVKI NAIL, 6 OR MORE 10/18/2015 93011-AMLXRIB NAIL, 6 OR MORE 12/20/2015 87401-YOEAGAW NAIL, 6 OR MORE 02/28/2016 64716-IAYZETR NAIL, 6 OR MORE 06/15/2016 42832-ELEUDUM NAIL, 6 OR MORE 09/12/2016 44584-TTOWVEX NAIL, 6 OR MORE 12/05/2016 00320-LSAINHF NAIL, 6 OR MORE 02/22/2017 50459-GKNMFEC NAIL, 6 OR MORE 10/30/2017 69028-OANZANX NAIL, 6 OR MORE 02/04/2018 25721-XFMXCIQ NAIL, 6 OR MORE 04/24/2018 83144-PKTHJCK NAIL, 6 OR MORE 07/23/2018 50470-IUPURPW NAIL, 6 OR MORE 05/24/2017 83974-SSKLVZM NAIL, 6 OR MORE 08/06/2017 12635-FPOAPMQ NAIL, 6 OR MORE 05/29/2019 30733-BHAHVOU NAIL, 6 OR MORE 11/11/2019 93308-URDZGQS NAIL, 6 OR MORE 03/02/2020 81658-FLSENDH NAIL, 6 OR MORE 05/04/2020 79489-XKQHYMA NAIL, 6 OR MORE 07/08/2020 66281-DASRSOB NAIL, 6 OR MORE 02/17/2021 23303-YGUORPZ NAIL, 6 OR MORE 06/20/2021 22752-NXOEJLU NAIL, 6 OR MORE 11/07/2021 45709-MFIRGAS NAIL, 6 OR MORE 01/16/2022 23137-IPOAJFE NAIL, 6 OR MORE 03/20/2022 02799-UYTZLIK NAIL, 6 OR MORE 06/12/2022 25250-BMYXAMS NAIL, 6 OR MORE 09/12/2022 19515-BBKJJRL NAIL, 6 OR MORE 01/22/2023 48849-RGRKEIG NAIL, 6 OR MORE 05/29/2023 19728-Cofi Destruction, -14 01/22/2023 87425-Zkno Destruction, -14 07/02/2023 00621-Dwuo Destruction, -14 10/16/2022 25522-Wnbc Destruction, -14 06/12/2022 37118-Ilpn Destruction, -14 09/12/2022 16761-Kmou Destruction, -14 01/16/2022 46065-Jkrd Destruction, -14 12/19/2021 00810-Vurd Destruction, -14 11/07/2021 42112-Fimb Destruction, -14 08/01/2021 61136-Sbxm Destruction, 10-2007/08/2020 46141-Jbbc Destruction, 10-2001/11/2021 79478-Pnhh Destruction, 10-2008/23/2020 99339-Idrm Destruction, 10-2005/04/2020 91379-Hjtj Destruction, 10-2003/02/2020 25580-Whei Destruction, 10-2009/18/2019 02906-Slni Destruction, 10-2011/11/2019 20807-Niyz Destruction, 10-2007/15/2019 20287-Crjy Destruction, 10-2005/29/2019 75672-Btns Destruction, 10-2007/02/2017 06358-Pnwy Destruction, 10-2007/23/2018 09725-Rvxk Destruction, 10-2009/10/2018 43436-Pekm Destruction, 10-2003/26/2017 88934-Utma Destruction, 10-2005/24/2017 54189-Eblm Destruction, 10-2012/05/2016 12430-Vqoo Destruction, 10-2008/01/2016 85928-Nils Destruction, 10-2010/24/2016 31589-Qhjl Destruction, 10-2006/15/2016 10070-Qnbu Destruction, 10-2004/05/2016 36442-Iupz Destruction, 10-2012/20/2015 26603-Jige Destruction, 10-2001/24/2016 71200-Gtat Destruction, 10-2010/18/2015 29006-Sczp Destruction, 10-2008/23/2015 15767-Ltej Destruction, 10-2004/14/2013 26742-Xgio Destruction, 10-2005/21/2013 33028-Rihddewm Plate 09/01/2013 04024-Ycczqaei Plate 07/09/2013 38147-Wffnsuhd Plate 02/10/2013 48972-Ycsqcshz Plate 12/30/2012 23825-Vqmgzqun Plate 10/26/2014 04548-Bgupozts Plate 08/26/2014 08706-Qpqtcgeg Plate 07/22/2014 04349-Lfelbqgj Plate 04/23/2014 67071-Qswejutv Plate 12/04/2013 73372-Bvjiptot Plate 07/10/2011 40086-Afkvnudz Plate 01/18/2012 78000-Flwwqomt Plate 10/16/2011 33982-Jqphmhvm Plate 10/25/2011 50836-Aswznauv Plate 11/08/2011 28082-Iwigvcvx Plate 07/11/2012 38961-Usffwolu Plate 09/25/2012 64240-Koafoyfk Plate 08/22/2012 98965-Fwghatwn Plate 03/27/2012 95551-Lswnrvzd Plate 05/09/2012 03350-Beyccoqr Plate 06/13/2012 07960-Slpojwek Plate 05/31/2015 88176-Hwlqzjeu Plate 07/12/2015 68781-Qmphdhms Plate 04/19/2015 58712-Fhdfdmsb Plate 02/11/2015 69988-Gtfzavuo Plate 03/04/2014 45823-Rvhrmjbh Plate 11/25/2014 96121-Lrzjzvot Plate 06/15/2016 55459-Myefeivb Plate 03/26/2017 78073-Vdbrobwg Plate 08/06/2017 47799-Wlncaewy Plate 05/29/2019 97039-Pcnpikwx Plate 09/18/2019 26749-Rdzbcqbt Plate 07/15/2019 66829-Myebubww Plate 07/08/2020 49442-Zfpbnqsv Plate 01/11/2021 44806-Hyegzhzu Plate 02/17/2021 78068-Ubkmwngv Plate 03/31/2021 44734-Dedjmcjt Plate 06/20/2021 44455-Wuifedsd Plate 01/16/2022 00481-Tdamwcjw Plate 11/07/2021 27741-Sjzemaxm Plate 04/24/2022 71939-Hnvvzgif Plate Each Additional 54462-Rgcwgkbw Plate Each Additional 10/2021 69913-Wicraxaf Plate Each Additional 09/2022 37615-Ukbrdqzz Plate Each Additional 50796-Csxrfopr Plate Each Additional 04/2021 77736-Djqngnmo Plate Each Additional 11/2019 01594-Whctdben Plate Each Additional 41444-Pydbmzmj Plate Each Additional 04/2012 49019-Llsekael Plate Each Additional 12/2011 93425-Ovbltysv Plate Each Additional 08938-Uzqjuysb Plate Each Additional 04/2013 83905- Debride <25 sq cm 02/10/2013 14308- Debride <25 sq cm 12/30/2012 66505- Debride <25 sq cm 11/06/2012 80660- Debride <25 sq cm 05/21/2013 22123- Debride <25 sq cm 04/14/2013 60688- Debride <25 sq cm 12/04/2013 87613- Debride <25 sq cm 04/23/2014 52701- Debride <25 sq cm 05/27/2014 52744- Debride <25 sq cm 07/22/2014 94697- Debride <25 sq cm 08/26/2014 73731- Debride <25 sq cm 10/26/2014 83762- Debride <25 sq cm 06/06/2012 49290- Debride <25 sq cm 03/27/2012 29497- Debride <25 sq cm 06/13/2012 18766- Debride <25 sq cm 08/22/2012 94457- Debride <25 sq cm 09/25/2012 35721- Debride <25 sq cm 08/28/2011 55594- Debride <25 sq cm 07/10/2011 51999- Debride <25 sq cm 02/15/2012 57109- Debride <25 sq cm 12/20/2011 47266- Debride <25 sq cm 11/25/2014 30257- Debride <25 sq cm 01/04/2015 48764- Debride <25 sq cm 02/11/2015 39479- Debride <25 sq cm 03/15/2015 46862- Debride <25 sq cm 04/19/2015 57343- Debride <25 sq cm 07/12/2015 36982- Debride <25 sq cm 01/18/2017 18093- Debride <25 sq cm 09/12/2016 54354- Debride <25 sq cm 05/04/2020 91654- Debride <25 sq cm 01/11/2021 01502- Debride <25 sq cm 10/30/2017 28310- Debride <25 sq cm 07/02/2017 06656- Debride <25 sq cm 09/10/2018 70914- Debride <25 sq cm 05/29/2019 62619- Debride <25 sq cm 02/17/2021 52957- Debride <25 sq cm 03/31/2021 61117- Debride <25 sq cm 06/20/2021 03755- Debride <25 sq cm 11/07/2021 03855- Debride <25 sq cm 08/01/2021 88171- Debride <25 sq cm 11/28/2021 03352- Debride <25 sq cm 06/12/2022 78726- Debride <25 sq cm 04/24/2022 09074- Debride <25 sq cm 03/20/2022 95015- Debride <25 sq cm 09/12/2022 21256- Debride <25 sq cm 11/13/2022 21826- Debride <25 sq cm 01/22/2023 72391- Debride <25 sq cm 10/16/2022 00673- Debride <25 sq cm 07/02/2023 61711-AQUJEJJ SKIN/TISSUE 05/22/2024 48686-GVIZJKD SKIN/TISSUE 01/15/2014 31787-DNCVTKH SKIN/TISSUE 03/04/2014 74819 I&D ABSCESS- SIMPLE,SINGLE 012 15298 I&D ABSCESS- SIMPLE,SINGLE 013 57455-LVOM SKIN LESIONS, 2 TO 4 05/22/20 24 44419- Removal of Foreign Body, Subcut 1 35598-Vfifvikd Benign Lesion 0.5cm 11/08 41458-Gxqgxyvu Benign Lesion 0.5cm 10/25- Ganglion Cyst Injection/Aspiratio n 01/18/2012- Ganglion Cyst Injection/Aspiratio n 07/02/2017 Future Test Test Name Order Date 45605-Kebyfelo Plate Each Additional Insurance Providers Payer Name Payer Address Payer Phone Subscriber Number Group Number Insured Name Patient Relationship to Insured Coverage Start Date Coverage End Date Medicare National [employer]t [employer] [address] [facility] [place] [address] [id number] Shreya Calvert Self - patient is the insured 1 [employer] [address] [place] [address] [id number] Shreya Calvert Self - patient is the [...] 05/2024 [facility]- leg swelling 05/2023 [facility] [place] 02/2023 [facility] [place] by scooter 02/2023 [facility] heart issues 08/2022 [facility] Cellulitis 07/2022 [facility] [place] issues 03/2022 [facility] cell[place], day stay, 3 week therap y 01/2022 [facility], [facility]- fell 05/2021 [facility] for cellulitis for 5 days 9 [facility] [place] 05/05/18 [facility] Choly[facility] 2015 [place] [facility], tripped bumped head 08/2015 Admitted to [facility] [place];GERD 03/2015 [facility] - Emergency 11/23/14 & 11/24 Dehydration 11/2011
--- OUTSIDE RECORDS SUMMARY | 2025-09-23 18:32 | XMS_ITS | Clinical Summary ---
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 Name Role Phone Rex Bass MD Primary Care Provider [phone] Allergies Active Allergy Reactions Criticality Noted Date [...] HISTORICAL CHOLECYSTECTOMY OTHER SURGICAL HISTORY 12/14/2013 PROCEDURE: PA EGD PARTIAL/COMPL ESOPHAGOGASTRIC FUNDOPLASTY COLONOSCOPY 02/09/2016 PROCEDURE: HISTORICAL COLONOSCOPY OTHER SURGICAL HISTORY 05/14/2013 PROCEDURE: PA ECHO TRANSTHORAC R-T 2D W/WO M-MODE REC COMP OTHER SURGICAL HISTORY 03/13/2013 PROCEDURE: PA CABG W/ARTERIAL GRAFT THREE ARTERIAL GRAFTS OTHER SURGICAL HISTORY 12/06/2008 PROCEDURE: PA EGD PARTIAL/COMPL ESOPHAGOGASTRIC FUNDOPLASTY CARPAL TUNNEL RELEASE PROCEDURE: PA NEUROPLASTY &/TRANSPOS MEDIAN NRV CARPAL TUNNE; COMMENT: [...] Compression fracture of L1 l umbar vertebra ([facility] V24, [facility] V28) DX:Compression fra cture of L1 lumbar vertebra ([facility]); COMMENT: and t12 vertebra Degeneration macular DX:Degenera tion macular Depression DX:Depression Diabetes type 2, controlled ([facility] V24, [facility] V28) DX:Diabetes type 2, controll ed ([facility]) Diverticulitis DX:Diverticuliti s Elevated LFTs [...] 2 obesi ty Osteoporosis DX:Osteoporosis Primary hyperparathyroidism ([facility] V24) DX:Primary hyperparathyroidi sm ([facility]) Recurrent falls DX:Recurrent fal ls [...] Health Maintenance Due Date Last Done Comments Drug Screen 1935 Non-Opioid Controlled Substance Agreement 1936 Diabetes: Annual Foot Exam 1946 Diabetes: Annual [...] Documents on File Type Date Recorded Patient Data Governance Analyst Expl anation Health Care Decision (hx) 09/26/2023 AD FARNSWORTH DIRECTIVE Health Care Decision (hx) 05/09/2021 AD FARNSWORTH DIRECTIVE Health Care Decision (hx) 05/09/2021 AD FARNSWORTH DIRECTIVE Care Teams Machine Ironer Relationship Specialty Start Date End Date Rex Bass MD [address] [place] [address] [address] [place], [address] PCP - General 04/23/24
== END 2025-09-23 14:20 | disposition home or self-care (01) ==
LOC: HO.MMNH3L 14:19
PROVIDERS: Visit Provider Physician Assistant Medical
DX: N39.0 Urinary tract infection, site not specified (principal)
CPT/HCPCS: 81001; 87086

== ENCOUNTER 2025-09-28 08:21 | Outpatient (REF) | payer MEDICARE, MEDICAID, SELFPAY ==
--- OUTSIDE RECORDS SUMMARY | 2025-09-28 08:29 | XMS_ITS | Clinical Summary ---
Author Organization [facility] Address [address] [place] [address] Phone Care Team Providers Care Lcsw Name Role Phone Rex Bass MD Primary Care Provider [phone] Allergies Active Allergy Reactions Criticality Noted Date [...] Compression fracture of L1 l umbar vertebra ([facility] V24, [facility] V28) DX:Compression fra cture of L1 lumbar vertebra ([facility]); COMMENT: and t12 vertebra Degeneration macular DX:Degenera tion macular Depression DX:Depression Diabetes type 2, controlled ([facility] V24, [facility] V28) DX:Diabetes type 2, controll ed ([facility]) Diverticulitis DX:Diverticuliti s Elevated LFTs DX:Elevated [...] obesi ty Osteoporosis DX:Osteoporosis Primary hyperparathyroidism ([facility] V24) DX:Primary hyperparathyroidi sm ([facility]) Recurrent falls DX:Recurrent fal ls Restless [...] patient's age to complete this topic Insurance [facility] [[email or web address] MEDICAID - [place] MEDICARE Advance Directives Documents on File Type Date Recorded Patient Tile Installer Expl 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
--- OUTSIDE RECORDS SUMMARY | 2025-09-28 08:29 | XMS_ITS | Data Portability ---
Author Organization [facility] Pain Managem ent, PAIN OFFICE Address [address] [place] [address] Care Team Providers Care Pipe Straightener Name Role Phone ABAD GONSALES Primary Care Provider [phone] GUILHERME DIAZ Referring Provider Assessment Encounter Date [...] appointment has been booked. 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 She [...] By Organization Details Last Modified Time 06/26/2021 [id number] She was advised against bed rest lasting longer than four days and to continue activities as tolerated. [email or web address] Not available 06/30/2021 10:01:24 07/11/2021 [id number] She was advised to continue with activities as tolerated [email or web address] Not available 07/11/2021 13:35:39 10/04/2021 [id number] She was advised to continue with activities as tolerated [email or web address] Not available 10/04/2021 11:55:19 12/12/2021 [id number] She was advised to continue with activities as tolerated [email or web address] Not available 12/12/2021 12:09:37 08/21/2022 [id number] She was advised to continue with activities as tolerated [email or web address] Not available 08/21/2022 10:34:48 Reason for Referral None Reported. Problems Name Problem SNOMED Code Status Onset Date Resolution Date Notes Provider Name and Address Organization Details Recorded Time Post-herpetic neuritis [id number] Gris adams MD [address] [place] [address] , [address], [place], [address] [facility] [place] [facility] 9 14:56:27 Inflammation of joint of shoulder region [id number] Gris adams, MD [address] , [address], [place], [address], [place] [facility] 9 09:39:04 Spinal stenosis of lumbar region 84108896 Active 2016 Alf adams MD [address] , [address], [place], [address], [place] [facility] 7 10:55:25 Lumbosacral spondylosis without myelopathy 23729519 Active 2016 Alf adams MD [address] , [address], [place], [address], [place] [facility] 7 10:55:26 Lumbosacral radiculitis 29492976 Active 2016 Alf adams MD [address] , [address], [place], [address], [place] [facility] 7 10:55:27 Displacement of lumbar intervertebral disc without myelopathy 06239497 Active 2016 Alf adams MD [address] , [address], [place], [address], [place] [facility] 7 10:55:30 Problem Notes None recorded. Procedures Surgical History Date Name Laterality Status Provider Name and Address Organization Details Recorded Time 08/21/20 22 Lumbar Epidural steroid injection under fluoroscopic guidance completed Alf Posada MD [address] , [address], [place], [address], [place] [facility] 08/21/2022 10:36:53 12/13/19 22 Lumbar Epidural steroid injection under fluoroscopic guidance completed Alf Posada MD [address] , [address], [place], [address], [place] [facility] 12/12/2021 12:09:46 10/04/20 21 Lumbar Epidural steroid injection under fluoroscopic guidance completed Alf Posada MD [address] , [address], [place], [address], [place] [facility] 10/04/2021 11:55:59 07/11/20 21 Lumbar Epidural steroid injection under fluoroscopic guidance completed Alf Posada MD [address] , [address], [place], [address], [place] [facility] 07/11/2021 13:35:45 04/11/20 21 Lumbar Epidural steroid injection under fluoroscopic guidance completed Alf Posada MD [address] , [address], [place], [address], [place] [facility] 04/11/2021 13:56:00 01/11/20 21 Lumbar Epidural steroid injection under fluoroscopic guidance completed Alf Posada MD [address] , [address], [place], [address], [place] [facility] 01/12/2021 09:57:53 09/06/20 20 Lumbar Epidural steroid injection under fluoroscopic guidance completed Alf Posada MD [address] , [address], [place], [address], [place] [facility] 09/08/2020 14:56:36 06/15/20 20 Lumbar Epidural steroid injection under fluoroscopic guidance completed Alf Posada MD [address] , [address], [place], [address], [place] [facility] 06/15/2020 14:00:13 05/23/20 20 Intra-articular shoulder steroid injection under ultrasound guidance completed Alf Posada MD [address] , [address], [place], [address], [place] [facility] 05/23/2020 15:11:49 05/11/20 19 Intra-articular shoulder steroid injection under ultrasound guidance completed Alf Posada MD [address] , [address], [place], [address], [place] [facility] 05/11/2019 09:43:25 03/31/20 19 Lumbar Epidural steroid injection under fluoroscopic guidance completed Alf Posada MD [address] , [address], [place], [address], [place] [facility] 03/31/2019 18:50:07 01/08/20 19 Fluoroscopic Guided Lumbar Facet Steroid Injections of levels completed Alf Posada MD [address] , [address], [place], [address], [place] [facility] 01/08/2019 15:03:53 09/17/20 17 Fluoroscopic Guided Lumbar Facet Steroid Injections of levels completed Alf Posada MD [address] , [address], [place], [address], [place] [facility] 09/17/2017 10:08:58 08/07/20 17 Fluoroscopic Guided Lumbar Facet Steroid Injections of levels completed Alf Posada MD [address] , [address], [place], [address], [place] [facility] 08/07/2017 10:36:11 05/08/20 17 Lumbar Epidural steroid injection under fluoroscopic guidance completed Alf Posada MD [address] [facility] , [address], [place], [address], [place] [facility] 05/08/2017 10:54:37 Joint Replacement completed Fayechris Sotoer [place] [facility] 03/14/2017 14:36:04 Cholecystectomy completed Fayechris Sotoer [place] [facility] 03/14/2017 14:36:22 Back Surgery completed Alf Posada MD [address] , [address], [place], [address], [place] [facility] 04/02/2017 [...] completed Not Available Not Available Not Available [employer] Ultra Test strips TESTS DAILY FOR DM, [...] Not Available No t Available Fluzone High-Dose 6422-7726 (PF) 180 mcg/0.5 mL intramuscul ar syringe TO BE ADMINISTE RED BY PHARMACIS T FOR IMMUNIZAT ION 08/07 completed Not Available Not Available Not Available Fluzone High-Dose 7233-8514 (PF) 180 mcg/0.5 mL intramuscul ar syringe [...] Last Updated DateTime 160.02 cm 34.7 kg/m2 98980.1 g 58 /min 98 % 6 144/56 mm[Hg] Alf adams MD [address] [facility] , [address], [place], [address], [place] [facility] 15:24:19 [...] Smoker Quit x 20 years [facility] Available [facility] 07/22/2020 03:16:10 Which Illicit Or Recreational Drugs Have You Used? NO [id number] Information not available 07/22/2020 Education 12 With Some College Information not available 03/14/2017 Live Alone Or With Others? Alone Information not available 03/14/2017 Marital Status [email or web address] Informatio n not available 03/14/2017 What Was The Date Of Your Most Recent Tobacco Screening? 03/31/2019 [id number] Information not available 07/22/2020 How Many Years Have You Smoked Tobacco? 20 [id number] Information not available 07/22/2020 Sex: Unknown Functional Status Question Answer Note LastModified by Organization D etails LastModified Time What is your level of alcohol consumption? Moderate [id number] Information not available 07/22/2020 Are you currently employed? No [id number] Information not available 07/22/2020 Mental Status None [...] ICD10 Code Diagnosis IMO Codes Diagnosis Note [id number] Alf Posada MD PAIN OFFICE [address] [place] [address] 03/14/2017 13:22:16 03/14/2017 15:44:04 Spinal stenosis of lumbar region 94395771 M48.06 Lumbosacra l spondylosis without myelopathy 42908801 M47.817 Lumbosacra l radiculitis 26821424 M54.17 Displaceme nt of lumbar intervertebral disc without myelopathy 85728153 M51.26 [id number] Alf Posada MD PAIN OFFICE [address] [place] [address] 05/08/2017 09:51:37 05/09/2017 14:08:37 Spinal stenosis of lumbar region 01865600 M48.06 Lumbosacra l spondylosis without myelopathy 90954089 M47.817 Lumbosacra l radiculitis 69404225 M54.17 Displaceme nt of lumbar intervertebral disc without myelopathy 44068334 M51.26 [id number] Alf Posada MD PAIN OFFICE [address] [facility] [place] [address] 06/14/2017 10:36:32 06/17/2017 09:50:43 Spinal stenosis of lumbar region 91294969 M48.06 Lumbosacra l spondylosis without myelopathy 06362823 M47.817 Lumbosacra l radiculitis 26618400 M54.17 Displaceme nt of lumbar intervertebral disc without myelopathy 75747996 M51.26 [id number] Alf Posada MD SV PAIN OFFICE [address] [facility] [place] [address] 08/07/2017 10:01:00 08/07/2017 15:19:24 Spinal stenosis of lumbar region 43638805 M48.062 Lumbosacra l spondylosis without myelopathy 90952829 M47.817 Lumbosacra l radiculitis 50421430 M54.17 Displaceme nt of lumbar intervertebral disc without myelopathy 49997327 M51.26 [id number] Alf Posada MD PAIN OFFICE [address] [facility] [place] [address] 09/05/2017 10:11:57 09/05/2017 19:46:07 Spinal stenosis of lumbar region 21560462 M48.062 Lumbosacra l spondylosis without myelopathy 14894154 M47.817 Lumbosacra l radiculitis 93266302 M54.17 Displaceme nt of lumbar intervertebral disc without myelopathy 63607798 M51.26 [id number] Alf Posada MD PAIN OFFICE [address] [place] [address] 09/17/2017 09:13:54 09/19/2017 09:09:31 Spinal stenosis of lumbar region 69693819 M48.062 Lumbosacra l spondylosis without myelopathy 37181546 M47.817 Lumbosacra l radiculitis 98687191 M54.17 Displaceme nt of lumbar intervertebral disc without myelopathy 15035076 M51.26 [id number] Alf Posada MD PAIN OFFICE [address] [facility] [place] [place] [address] 12/25/2018 11:24:23 12/25/2018 16:12:18 Spinal stenosis of lumbar region 37088328 M48.061 Lumbosacra l spondylosis without myelopathy 70972191 M47.817 Lumbosacra l radiculitis 44712638 M54.17 Displaceme nt of lumbar intervertebral disc without myelopathy 61344821 M51.26 04142 Alf Posada MD PAIN OFFICE [address] [place] [address] 01/07/2019 09:10:35 01/08/2019 15:11:02 Spinal stenosis of lumbar region 38011478 M48.062 Lumbosacra l spondylosis without myelopathy 80819735 M47.817 Lumbosacra l radiculitis 50531953 M54.17 Displaceme nt of lumbar intervertebral disc without myelopathy 02693385 M51.26 [id number] Alf Posada MD PAIN OFFICE [address] [facility] [place] [address] 02/04/2019 14:13:14 02/04/2019 16:10:53 Post-herpetic neuritis 295464294 B02.29 Spinal linda nosis of lumbar region 03585768 M48.061 Lumbosacra l spondylosis without myelopathy 65181056 M47.817 Lumbosacra l radiculitis 78091329 M54.17 Displaceme nt of lumbar intervertebral disc without myelopathy 68797239 M51.26 [id number] Alf Posada MD PAIN OFFICE [address] [facility] [place] [address] 03/31/2019 09:49:03 03/31/2019 18:56:55 Spinal stenosis of lumbar region 76177604 M48.061 Lumbosacra l spondylosis without myelopathy 63780634 M47.817 Lumbosacra l radiculitis 80825817 M54.17 Displaceme nt of lumbar intervertebral disc without myelopathy 48116935 M51.26 [id number] Alf Posada MD PAIN OFFICE [address] [facility] [place] [address] 05/11/2019 08:51:59 05/11/2019 09:45:44 Inflammation of joint of shoulder region 045544334 M13.819 Spinal linda nosis of lumbar region 57762518 M48.061 [id number] Alf Posada MD PAIN OFFICE [address] [facility] [place] [address] 12/14/2019 13:40:03 12/14/2019 16:14:01 Spinal stenosis of lumbar region 39713102 M48.061 Lumbosacra l spondylosis without myelopathy 17182081 M47.817 Lumbosacra l radiculitis 38859908 M54.17 Displaceme nt of lumbar intervertebral disc without myelopathy 43192441 M51.26 74621 Alf Posada MD PAIN OFFICE [address] [place] [address] 02/12/2020 11:36:11 02/15/2020 12:09:29 Spinal stenosis of lumbar region 28179474 M48.061 Lumbosacra l spondylosis without myelopathy 41182713 M47.817 Lumbosacra l radiculitis 02461709 M54.17 Displaceme nt of lumbar intervertebral disc without myelopathy 39414126 M51.26 44004 Alf Posada MD PAIN OFFICE [address] [place] [address] 05/13/2020 08:29:14 05/13/2020 09:22:37 Inflammation of joint of shoulder region 667941106 M13.819 Spinal linda nosis of lumbar region 33679147 M48.061 [id number] Alf Posada MD PAIN OFFICE [address] [place] [address] 05/23/2020 12:46:33 05/23/2020 15:14:52 Inflammation of joint of shoulder region 175659243 M13.819 Spinal linda nosis of lumbar region 69072002 M48.061 [id number] Alf Posada MD PAIN OFFICE [address] [place] [address] 06/15/2020 10:54:32 06/15/2020 14:04:50 Inflammation of joint of shoulder region 626515954 M13.819 Spinal linda nosis of lumbar region 44089694 M48.061 Lumbosacra l spondylosis without myelopathy 80976624 M47.817 Lumbosacra l radiculitis 27825742 M54.17 Displaceme nt of lumbar intervertebral disc without myelopathy 83416304 M51.26 [id number] Alf Posada MD PAIN OFFICE [address] [place] [address] 07/13/2020 08:30:09 07/13/2020 11:05:07 Inflammation of joint of shoulder region 743536454 M13.819 Spinal linda nosis of lumbar region 09967598 M48.061 [id number] Alf Posada MD PAIN OFFICE [address] [place] [address] 09/06/2020 10:30:56 09/08/2020 15:55:16 Inflammation of joint of shoulder region 285360399 M13.819 Spinal linda nosis of lumbar region 01879886 M48.061 Lumbosacra l spondylosis without myelopathy 48089995 M47.817 Lumbosacra l radiculitis 94359270 M54.17 Displaceme nt of lumbar intervertebral disc without myelopathy 84194553 M51.26 [id number] Alf Posada MD PAIN OFFICE [address] [place] [address] 11/07/2020 08:59:33 11/07/2020 09:55:18 Spinal stenosis of lumbar region 31853360 M48.061 Lumbosacra l spondylosis without myelopathy 70624089 M47.817 Lumbosacra l radiculitis 66373042 M54.17 Displaceme nt of lumbar intervertebral disc without myelopathy 19645614 M51.26 [id number] Alf Posada MD PAIN OFFICE [address] [place] [address] 01/10/2021 13:47:25 01/12/2021 10:00:57 Inflammation of joint of shoulder region 876110384 M13.819 Spinal linda nosis of lumbar region 82315664 M48.061 Lumbosacra l spondylosis without myelopathy 18110634 M47.817 Lumbosacra l radiculitis 92816359 M54.17 Displaceme nt of lumbar intervertebral disc without myelopathy 12960279 M51.26 [id number] Alf Posada MD PAIN OFFICE [address] [place] [address] 02/16/2021 08:44:41 02/16/2021 10:52:14 Spinal stenosis of lumbar region 02500879 M48.061 Lumbosacra l spondylosis without myelopathy 27679720 M47.817 Lumbosacra l radiculitis 69642106 M54.17 Displaceme nt of lumbar intervertebral disc without myelopathy 35467232 M51.26 13333 Alf Posada MD PAIN OFFICE [address] [place] [address] 04/11/2021 13:21:59 04/11/2021 14:01:08 Spinal stenosis of lumbar region 35731980 M48.061 Inflammati on of joint of shoulder region 725258848 M13.819 Lumbosacra l spondylosis without myelopathy 95415127 M47.817 Lumbosacra l radiculitis 04681740 M54.17 Displaceme nt of lumbar intervertebral disc without myelopathy 71206989 M51.26 [id number] Alf Posada MD PAIN OFFICE [address] [place] [address] 06/26/2021 15:22:32 06/30/2021 10:03:11 Spinal stenosis of lumbar region 51287529 M48.061 Lumbosacra l spondylosis without myelopathy 36619807 M47.817 Lumbosacra l radiculitis 23050118 M54.17 Displaceme nt of lumbar intervertebral disc without myelopathy 43246452 M51.26 73480 Alf Posada MD PAIN OFFICE [address] [place] [address] 07/11/2021 12:54:52 07/11/2021 13:38:15 Spinal stenosis of lumbar region 67317999 M48.061 Inflammati on of joint of shoulder region 043861228 M13.819 Lumbosacra l spondylosis without myelopathy 12281977 M47.817 Lumbosacra l radiculitis 30029734 M54.17 Displaceme nt of lumbar intervertebral disc without myelopathy 00350015 M51.26 71007 Alf Posada MD PAIN OFFICE [address] [place] [address] 10/04/2021 10:46:49 10/04/2021 12:00:47 Spinal stenosis of lumbar region 20361708 M48.061 Inflammati on of joint of shoulder region 203451106 M13.819 Lumbosacra l spondylosis without myelopathy 96366185 M47.817 Lumbosacra l radiculitis 85292137 M54.17 Displaceme nt of lumbar intervertebral disc without myelopathy 64206482 M51.26 [id number] Alf Posada MD PAIN OFFICE [address] [place] [address] 12/12/2021 11:17:23 12/12/2021 14:28:00 Spinal stenosis of lumbar region 69555253 M48.061 Inflammati on of joint of shoulder region 185560739 M13.819 Lumbosacra l spondylosis without myelopathy 94511089 M47.817 Lumbosacra l radiculitis 46183302 M54.17 Displaceme nt of lumbar intervertebral disc without myelopathy 69718588 M51.26 [id number] Alf Posada MD PAIN OFFICE [address] [place] [address] 08/21/2022 10:05:44 08/21/2022 11:05:40 Spinal stenosis of lumbar region 95165357 M48.061 Inflammati on of joint of shoulder region 300817133 M13.819 Lumbosacra l spondylosis without myelopathy 04131628 M47.817 Lumbosacra l radiculitis 58273284 M54.17 Displaceme nt of lumbar intervertebral disc without myelopathy 99732830 M51.26 Degenerati on of lumbar intervertebral disc 95860026 M51.36 Health Concerns Section Related Observation LastModified by Organization Detai ls LastModified Time None Recorded Concern Status LastModified by Organization Details LastModified Time None Recorded Advance Directives Directive None Recorded Payers Insurance Date Sequence Insurance Name Policy Number Policy Anders Covered Member ID Anders Member ID Guarantor Name 12/15/2022 1 [place] [employer] Shreya M Gravel [id number] Shreya Gravel 12/15/2022 2 [place] [id number] Shreya Gravel [id number] Shreya Calvert Notes Date Note Type [...] or bowel incontinence. Alf Posada MD [address] [facility] , [address], [place], [address], [place] [facility] 07/10/2021 08:52:57 07/11/2021 text/html She is here for a lumbar epidural steroid injection under fluoroscopic guidance. Alf Posada MD [address] [facility] , [address], [place], [address], [place] [facility] 07/12/2021 09:01:37 10/04/2021 text/html She is here for a lumbar epidural steroid injection under fluoroscopic guidance. Alf Posada MD [address] [facility] , [address], [place], [address], [place] [facility] 10/04/2021 12:48:56 12/12/2021 text/html She is here for a lumbar epidural steroid injection under fluoroscopic guidance. Alf Posada MD [address] [facility] , [address], [place], [address], [place] [facility] 12/12/2021 16:13:18 08/21/2022 text/html She is here for a lumbar epidural steroid injection under fluoroscopic guidance. She has stopped eliquis and pletal as instructed for the procedure. Alf Posada MD [address] [facility] , [address], [place], [address], [place] [facility] 08/22/2022 08:44:58 OBGyn Episode No OBEpisode recorded.
--- OUTSIDE RECORDS SUMMARY | 2025-09-28 08:30 | XMS_ITS | Data Portability ---
Author Organization [facility] Abeelo Cox [place], Main Office Address [address] [facility], [address] [place] [address] Care Team Providers Care Land Lease Information Clerk Name Role Phone DARRIN STYLES 3RD FLOOR [...] and Address Organization Details Recorded Time Cystitis 19975431 Active 2023 FRIEDA ANDERSON [address] [facility], [address], [place], [address], [facility] Abeelo [facility] 4 14:00:02 Falls 210586476 Active 2023 FRIEDA ANDERSON [address] [facility], [address], [place], [address], [facility] 4 14:00:38 Pain of right wrist [id number] 00 Active 2023 FRIEDA ANDERSON [address] , [address], [place], [address], [facility] 4 14:00:56 Peripheral venous insufficien cy 47372924 Active 2023 CARLTON MINA, [employer]IG SUPERVISOR [address], [address], [place], [address], [place] [facility] 4 14:01:26 Chronic diastolic heart failure 742121096 Active 2023 CARLTON MINA, RIG SUPERVISOR [address], [address], [place], [address], [place] [facility] 4 14:01:46 Type 2 diabetes mellitus 31739658 Active 2023 CARLTON MINA, [facility] [address], [address], [place], [address], [place] [facility] 4 14:01:55 Paroxysmal atrial flutter 628259921 Active 2023 MP ANDERSONP [address], [address], [place], [address], [place] [facility] 4 14:02:21 Restless legs syndrome 08413824 Active 2023 MP ANDERSONP [address], [address], [place], [address], [place] [facility] 4 14:02:38 Chronic obstructive pulmonary disease 22186813 Active 2023 FRIEDA ANDERSON [address], [address], [place], [address], [place] [facility] 4 14:02:49 Anemia of chronic disease 988984112 Active 2023 FRIEDA ANDERSON [address], [address], [place], [address], [place] [facility] 4 14:02:59 Mixed anxiety and depressive disorder 326086836 Active 2023 CARLTON MINA, RIG SUPERVISOR [address], [address], [place], [address], [place] [facility] 4 14:17:43 Chronic kidney disease 753628682 Active 2023 MP ANDERSONP [address], [address], [place], [address], [place] [facility] 4 14:19:41 Hyperlipide nena 07604517 Active 2023 FRIEDA ANDERSON [address], [address], [place], [address], [facility] 4 14:26:52 Gastroesoph ageal reflux disease 969991142 Active 2023 FRIEDA ANDERSON [address], [address], [place], [address], [facility] 4 14:27:49 Chronic back pain 149441884 Active 2023 FRIEDA ANDERSON [address], [address], [place], [address], [facility] 4 14:40:47 Vitamin D deficiency 66820400 Active 2023 FRIEDA ANDERSON [address], [address], [place], [address], [facility] 4 19:41:46 Bradycardia 50017578 Active 2023 FRIEDA ANDERSON [address], [address], [place], [address], [facility] 4 19:44:32 Asthenia 08883913 Active 2023 FRIEDA ANDERSON [address], [address], [place], [address], [facility] 4 19:53:05 Bleeding from nose 363748949 Active 2023 FRIEDA ANDERSON [address], [address], [place], [address], [facility] 4 15:36:07 Osteomyelit is 13961531 Active 2023 Naomi Todd MD [address], [address], [place], [address], [facility] 4 17:53:51 Headache 84307688 Active 2023 WISAM SILVA NP [address], [address], [place], [address], [place] [facility] 4 09:49:14 Essential hypertensio n 48260830 Active 2024 Rex Bass MD [address] [place] [address], [address], [place], [address], [facility] 5 09:46:16 Problem Notes None recorded. Medical Equipment None Reported. Allergies Allergen ID Allergen Name Allergen Category Reaction Reaction Severity Criticality Documentation Date Start Date Code Code System Note Provider Name and Address Organization Details Recorded Time 55698 lisinopri l medicatio n Not available Not available Not available 10/22/2023 42081 RxNorm Naomi Todd MD [address] [place] [address], [facility] [address], [place], [address], [facility] 4 17:53:46 Medications Name Sig Start Date [...] 165.1 cm 129/73 mm[Hg] Rex Bass MD [address] [place] [address], [address], [place], [address], [facility] 11/25/2024 11:53:24 Date Recorded Body height Body temperature Heart rate Respiratory rate Systolic And Diastolic Provider Name and Address Organization Details Last Updated DateTime 5 165.1 cm 97.4 [degF] 84 /min 18 /min 142/70 mm[Hg] Rex Bass MD [address] [place] [address], [address], [place], [address], [facility] 5 09:39:14 Date Recorded Body height Body temperature Respiratory rate Oxygen saturation Systolic And Diastolic Provider Name and Address Organization Details Last Updated DateTime 5 165.1 cm 97.9 [degF] 18 /min 97 % 130/70 mm[Hg] FRIEDA ANDERSON [address] [facility], [address], [place], [address], [facility] 18:58:17 Social History Question Answer Notes LastModified by Organizat ion Details LastModified Time Tobacco Smoking Status Former Smoker quit 30 yrs ago FRIEDA ANDERSON [address] , [address], [place], [address], [facility] 10/24/2023 14:39:11 Do You Have An Advance Directive? Yes Information not available 10/24/2023 What Is Your Level Of Caffeine Consumption? Occasional Information not available 10/24/2023 What Is Your Code Status? DNR/DNI Information not available 10/24/2023 [facility], Had Been Living At [facility] Information not available 04/13/2024 Legal Guardian? No Informati on not available 10/24/2023 Do You Have A Medical Power Of Argon Tester? Yes Information not available 10/24/2023 What Was [...] Recorded Time Tdap 2 completed Flor Luna [facility] 12/27/2023 11:11:29 Pneumococcal conjugate PCV 13 7 completed Flor Luna [facility] 12/27/2023 11:11:41 Influenza, adjuvanted, quadrivalent, PF 3 completed Flor Luna [facility] 12/27/2023 11:11:59 COVID-19, mRNA, LNP-S, bivalent, PF, 30 mcg/0.3 mL dose 1 completed Florgwen Luna [facility] 12/27/2023 11:12:12 COVID-19, mRNA, LNP-S, bivalent, PF, 30 mcg/0.3 mL dose 1 completed Flor Jeremy [facility] 12/27/2023 11:12:20 COVID-19, mRNA, LNP-S, bivalent, PF, 30 mcg/0.3 mL dose 1 completed Florgwen Luna [facility] 12/27/2023 11:12:29 COVID-19, mRNA, LNP-S, bivalent, PF, 30 mcg/0.3 mL dose 2 completed Flor Jeremy [facility] 12/27/2023 11:12:48 Past Encounters Encounter ID Performer Location Encounter Start Date Encounter Closed Date Diagnosis/Indication Diagnosis SNOMED-CT Code Diagnosis ICD10 Code Diagnosis IMO Codes Diagnosis Note [id number] FRIEDA ANDERSON [address] [facility] [place] [address] 10/23/2023 08:21:08 10/28/2023 15:39:59 Cystitis 00710716 N30.90 With MDROInitia lly with Vanco and cefepime however cultures growing MDRO Klebsiella Started meropenem 1 g q12 for 7 days.start ed 10/19 for 7 full days of treatment to end 10/26.probi otic added Falls 617742375 R29.6 likely multifacto rial from neuropathy , frailty, arthritis and LE edemaCT negative for any fractures. CT Head/Brain W/O Contrast negativeIn itiated safety precaution per facility protocolPT /OT eval and tx. Peripheral venous insufficiency 56526257 I87.2 Venous insufficie ncy of both lower extremitie sDoppler LLE no DVT, symmetric erythema without increased warmth or tenderness , appears similar to previous picture taken, low suspicion for superimpos ed cellulitis Chronic di astolic heart failure 481364125 I50.32 preserved EFeuvolemi ctorsemide held in acute care d/t hypotensio n and bradycardi c 50'smonito r BP and need to restartmon itor weights Chronic ob structive pulmonary disease 67831219 J44.9 Albuterol Sulfate Nebulizati on Solution (2.5 MG/3ML) Q6 prnAdvair Bfjbjx597- 50 mcg Q12 Restless l egs syndrome 17213134 G25.81 ROPINIRole HCl Tablet 2 MG BID Type 2 jr betes mellitus 69580033 E11.21 continue monitor glucose,Li spro SSI coverageGa bapentin Capsule 300 MG at bedtime for neuropathy pain.trama dol 25 mg q12 prn Paroxysmal atrial flutter 118966370 I48.92 not on anticoagAm iodarone HCl Tablet 200 MG dailymonit or HR Mixed anxi ety and depressive disorder 201504258 F41.8 Escitalopr am Oxalate Tablet 30 mg dailymonit or for mood and behavorial changes. Anemia of chronic disease 981434271 D63.8 Ferrous Sulfate Tablet 325 dailymonit or labs prn Hyperlipidemia 77901262 E78.5 Atorvastat in 20 mg dailymonit or labs Gastroesop hageal reflux disease 957198169 K21.9 Pantoprazo le40 mg dailymonit or for gi upset. Chronic back pain 310691 002 G89.29 tramadol 25 mg Q12 prngabapen tin 300 mg at hs Vitamin D deficiency 347 18081 E55.9 Cholecalci ferol 2000 UNIT daily Pain of right wrist 3169 176648 76911 M25.531 x-ray was ordered which was negative.P T/OT eval and tx Bradycardia 01867913 R00 .1 in acute care HR as low as 40snormal TX/QRS/QTc prolongati on..T nonspecifi c isolated T wave inversions on single lead V2 were present on recent study from 07/19/2023 . No evidence of acute ischemic changes. Chronic ki dney disease 311790378 N18.9 Renal function is at baselinemo nitor labsavoid nephrotoxi c drugs Asthenia 04813104 R53.1 hx of multiple fallsambul ates with walkerPT/O T eval and treat [id number] Naomi Todd MD [address] [place] [address] 10/24/2023 16:17:28 11/06/2023 11:12:59 Cystitis 94723852 N30.00 Continue meropenem 1 g q 12 hrs to complete 7 d course on 10/26.Monit or for recurrent sxs. Falls 050434262 R29.6 Likely multifacto rial from neuropathy , frailty, arthritis and LE edemaVery deconditio christoph.Needs PT/OT for strengthen ing, balance, gait training, safety and function.C ontinue fall precaution s.Monitor for safety. Peripheral venous insufficiency 00504050 I87.2 Almost at baseline per pt.Continu e local care and elevation. Chronic di astolic heart failure 216795793 I50.32 Appears euvolemic. Monitor for need for diuretics. Monitor resp. status, fluid status, wts and labs. Chronic ob structive pulmonary disease 67380409 J43.8 No current sxs.Contin ue Advair 250/50 BID and albuterol nebs q 6 hrs prnMonitor resp status. Restless l egs syndrome 36708211 G25.81 Continue ropinirole 2 mg BIDMonitor sxs. Type 2 jr betes mellitus 46286591 E11.21 Diet controlled .Sugar <150 yest, not checked previously .Continue gabapentin 300 MG qhs and tramadol q 12 hrs prn for neuropathy Monitor fingerstic ks BID x 1 wk with SSI, d/c if not needing coverage. Paroxysmal atrial flutter 344244421 I48.92 Rate in good control on amiodarone 200 mg qdNot on AC due to age and fall riskMonito r HR Mixed anxi ety and depressive disorder 742295291 F41.8 Mood down today due to concerns about living situation. Continue escitalopr am 30 mg qdMonitor mood.Consu lt psych prn Anemia of chronic disease 575540914 D63.8 Continue FeSO4 325 mg qd with vitamin C 250 mg qd for absorption .Monitor labs Hyperlipidemia 89529260 E78.49 Continue atorvastat in 20 mg qdMonitor labs yearly Gastroesop hageal reflux disease 691632013 K21.9 No current sxs.Contin ue pantoprazo le 40 mg qdMonitor sxs Chronic ki dney disease 032249567 N18.9 In hx, but renal function WNL yest.Cindy nue to avoid nephrotoxi c meds as able.Monit or labs.Renal consult prn. Chronic back pain 827809 002 G89.29 Continue tramadol 25 mg q 12 hrs prn and gabapentin 300 mg qhsMonitor sxs. [id number] FRIEDA ANDERSON [address] [facility] [facility] [place] [address] 10/29/2023 07:42:54 11/01/2023 08:26:34 Cystitis 04544586 N30.90 With MDROInitia lly with Vanco and cefepime however cultures growing MDRO Klebsiella Started meropenem 1 g q12 for 7 days.start ed 10/19 for 7 full days of treatment to end 10/26.- completed denies any dysuriapro biotic added Falls 280765578 R29.6 continue to work with PT/OT for strengthen inglikely multifacto rial from neuropathy , frailty, arthritis and LE edemaCT negative for any fractures. CT Head/Brain W/O Contrast negativeIn itiated safety precaution per facility protocol Peripheral venous insufficiency 21559445 I87.2 BLE edema left greater than right Venous insufficie ncy of both lower extremitie sDoppler LLE no DVT, symmetric erythema without increased warmth or tenderness , appears similar to previous picture taken, low suspicion for superimpos ed cellulitis Chronic di astolic heart failure 055294115 I50.32 preserved EFeuvolemi ctorsemide held in acute care d/t hypotensio n and bradycardi c 50'smonito r BP and need to restartmon itor weights Chronic ob structive pulmonary disease 76987295 J44.9 Albuterol Sulfate Nebulizati on Solution (2.5 MG/3ML) Q6 prnAdvair Tjgheo612- 50 mcg Q12 Restless l egs syndrome 62501272 G25.81 ROPINIRole HCl Tablet 2 MG BID Type 2 jr betes mellitus 72932619 E11.21 continue monitor glucose,Li spro SSI coverageGa bapentin Capsule 300 MG at bedtime for neuropathy pain.trama dol 25 mg q12 prn Paroxysmal atrial flutter 298484283 I48.92 not on anticoagAm iodarone HCl Tablet 200 MG dailymonit or HR Mixed anxi ety and depressive disorder 440139865 F41.8 Escitalopr am Oxalate Tablet 30 mg dailymonit or for mood and behavorial changes. Anemia of chronic disease 053837354 D63.8 Ferrous Sulfate Tablet 325 dailymonit or labs prn Hyperlipidemia 63490644 E78.5 Atorvastat in 20 mg dailymonit or labs Gastroesop hageal reflux disease 963064609 K21.9 Pantoprazo le40 mg dailymonit or for gi upset. Chronic back pain 624710 002 G89.29 tramadol 25 mg Q12 prngabapen tin 300 mg at hs Vitamin D deficiency 347 18672 E55.9 Cholecalci ferol 2000 UNIT daily Pain of right wrist 3169 282912 89180 M25.531 x-ray was ordered which was negative.P T/OT eval and tx Bradycardia 53484660 R00 .1 in acute care HR as low as 40snormal TX/QRS/QTc prolongati on..T nonspecifi c isolated T wave inversions on single lead V2 were present on recent study from 07/19/2023 . No evidence of acute ischemic changes. Chronic ki dney disease 048939755 N18.9 Renal function is at baselinemo nitor labsavoid nephrotoxi c drugs Asthenia 92542199 R53.1 hx of multiple fallsambul ates with walkerPT/O T eval and treat [id number] FRIEDA ANDERSON [address] [place] [address] rd [place] [address] 11/01/2023 08:04:11 11/06/2023 11:37:03 Cystitis 54689274 N30.90 With MDROInitia lly with Vanco and cefepime however cultures growing MDRO Klebsiella Started meropenem 1 g q12 for 7 days.start ed 10/19 for 7 full days of treatment to end 10/26.- completed denies any dysuriapro biotic added Pruritus of vagina 76844 003 L29.3 Reports vaginal itchiness for over [...] BID for 7 days and re eval. [id number] FRIEDA ANDERSON [address] [address] 11/04/2023 12:13:42 11/06/2023 12:50:39 Falls 711930460 R29.6 see/HPiwit nessed fallwith injury/lac eration above left eye.no LOC Facial laceration 328811 008 S01.81XA above left eye/about 2 cm in lengthblee ding controlled , wrapped in gauze dressing. [id number] FRIEDA ANDERSON [address] [address] 11/06/2023 09:19:58 11/13/2023 12:17:34 Falls 347442742 R29.6 see/HPiwit nessed fallwith injury/lac eration above left eye.no LOCContinu e PT/OT Facial laceration 067153 008 S01.81XA above left eye/about 2 cm in lengthappe ars to be about 10-12 small dissolvabl e sutures in placedenie s any visual changes or headache.n ursing to monitor healing Pruritus of vagina 19918 003 L29.3 Reports vaginal itchiness for over [...] days and re eval. Chronic back pain 960031 002 G89.29 denies any new discomfort post falltramad ol 25 mg Q12 prngabapen tin 300 mg at hs Asthenia 38971500 R53.1 hx of multiple fallsambul ates with walkerPT/O T continue [id number] FRIEDA ANDERSON [address] [address] 11/08/2023 13:54:21 11/13/2023 13:10:32 Falls 957940561 R29.6 on 11/04/23wit nessed fallwith injury/lac eration above left eye.no LOCContinu e PT/OT Facial laceration 378372 008 S01.81XA above left eye/about 2 cm in lengthappe ars to be about 10-12 small di-solvabl e sutures in placedenie s any visual changes or headache.n ursing to monitor healing Pruritus of vagina 68666 003 L29.3 Reports vaginal itchiness for over [...] assure med is applied. Chronic back pain 861762 002 G89.29 denies any new discomfort post falltramad ol 25 mg Q12 prngabapen tin 300 mg at hs Asthenia 81172599 R53.1 hx of multiple fallsambul ates with walkerPT/O T continue [id number] FRIEDA ANDERSON [address] [address] 11/13/2023 10:59:21 11/15/2023 09:29:54 Falls 618285103 R29.6 on 11/04/23wit nessed fallwith injury/lac eration above left eye.no LOCContinu e PT/OT Facial laceration 733516 008 S01.81XA healingabo ve left eye/about 2 cm in lengthappe ars to be about 10-12 small di-solvabl e sutures in placedenie s any visual changes or headache.n ursing to monitor healing Pruritus of vagina 37576 003 L29.3 improving, continues with triamcinol one topical cream BID Chronic back pain 981901 002 G89.29 denies any new discomfort post falltramad ol 25 mg Q12 prngabapen tin 300 mg at hs Asthenia 77270984 R53.1 hx of multiple fallsambul ates with walkerPT/O T continues [id number] FRIEDA ANDERSON [address] [address] 11/18/2023 07:58:48 11/21/2023 13:26:13 Falls 606627701 R29.6 on 11/04/23wit nessed fallwith injury/lac eration above left eye.no LOCContinu e PT/OT Facial laceration 211274 008 S0.81XA healingabo ve left eye/about 2 cm in lengthappe ars to be about 10-12 small di-solvabl e sutures in placedenie s any visual changes or headache.n ursing to monitor healing Pruritus of vagina 37662 003 L29.3 improving, continues with triamcinol one topical cream BID Chronic back pain 016580 002 G89.29 denies any new discomfort post falltramad ol 25 mg Q12 prngabapen tin 300 mg at hs Asthenia 78524758 R53.1 hx of multiple fallsambul ates with walkerPT/O T continues [id number] FRIEDA ANDERSON [address] [address] 11/21/2023 13:49:57 11/25/2023 12:31:48 Falls 051931276 R29.6 on 11/04/23wit nessed fallwith injury/lac eration above left eye.no LOCContinu e PT/OT Facial laceration 405433 008 S01.81XA 11/04 s/p fall for laceration above left eye.healin g no s/sx of infectiona rolan left eye/about 2 cm in lengthappe ars to be about 10-12 small di-solvabl e sutures in placedenie s any visual changes or headache.n ursing to monitor healing Pruritus of vagina 92994 003 L29.3 improving, continues with triamcinol one topical cream BID Chronic back pain 570784 002 G89.29 denies any new discomfort post falltramad ol 25 mg Q12 prngabapen tin 300 mg at hs Asthenia 50681741 R53.1 hx of multiple fallsambul ates with walkerPT/O T continues [id number] CARLTON MINA [address] [address] 11/26/2023 07:45:18 11/28/2023 10:55:36 Falls [id number] R29.6 on 11/04/23wit nessed fallwith injury/lac eration above left eye.no LOCContinu e PT/OT Facial laceration 770120 008 S01.81XA 11/04 s/p fall for laceration above left eye.healin g no s/sx of infectiona rolan left eye/about 2 cm in lengthappe ars to be about 10-12 small di-solvabl e sutures in placedenie s any visual changes or headache.n ursing to monitor healing Pruritus of vagina 44875 003 L29.3 triamcinol one topical cream BIDkeep area clean and dry. Chronic back pain 858993 002 G89.29 tramadol 25 mg Q12 prngabapen tin 300 mg at hs Asthenia 70631929 R53.1 hx of multiple fallsambul ates with walkerPT/O T continues [id number] FRIEDA ANDERSON [address] [address] 11/29/2023 08:06:37 12/03/2023 11:20:10 Falls 782196404 R29.6 on 11/04/23wit nessed fallwith injury/lac eration above left eye.no LOCContinu e PT/OT Facial laceration 177460 008 S01.81XA healed11/04 s/p fall for laceration above left eye.above left eye/about 2 cm in lengthdeni es any visual changes or headache. Pruritus of vagina 57718 003 L29.3 triamcinol one topical cream BIDkeep area clean and dry. Chronic back pain 292708 002 G89.29 tramadol 25 mg Q12 prngabapen tin 300 mg at hs Asthenia 09498977 R53.1 hx of multiple fallsambul ates with walkerPT/O T continues [id number] FRIEDA ANDERSON [address] [address] 12/04/2023 07:53:49 12/10/2023 10:21:37 Falls 849481804 R29.6 on 11/04/23wit nessed fallwith injury/lac eration above left eye.no LOCContinu e PT/OT Facial laceration 324737 008 S01.81XA healed11/04 s/p fall for laceration above left eye.above left eye/about 2 cm in lengthdeni es any visual changes or headache. Pruritus of vagina 92534 003 L29.3 triamcinol one topical cream BIDkeep area clean and dry. Chronic back pain 166147 002 G89.29 tramadol 25 mg Q12 prngabapen tin 300 mg at hs Asthenia 75752955 R53.1 hx of multiple fallsambul ates with walkerPT/O T continues Cellulitis of right lower limb 2040807026 8020034 L03.115 see hpistarted keflex on 11/30/23 for 7 days with probiotic for 10 daysencour aged to elevated lower extremitie s to elevate edemamonit or for resolution [id number] FRIEDA ANDERSON [address] [address] 12/11/2023 10:06:59 12/13/2023 13:01:47 Falls 170986756 R29.6 no recent falls reported Facial laceration 932001 008 S01.81XA healed11/04 s/p fall for laceration above left eye.above left eye/about 2 cm in lengthdeni es any visual changes or headache. Pruritus of vagina 35692 003 L29.3 triamcinol one topical cream BIDkeep area clean and dry. Chronic back pain 720608 002 G89.29 tramadol 25 mg Q12 prngabapen tin 300 mg at hs Cellulitis of right lower limb 3445356813 9638556 L03.115 resolved. [id number] FRIEDA ANDERSON [address] [address] 12/18/2023 09:20:38 12/20/2023 14:10:33 Chronic diastolic heart failure 763145166 I50.32 preserved EFeuvolemi ctorsemide held in acute care d/t hypotensio n and bradycardi c 50'smonito r BP and need to restartmon itor weights Mixed anxi ety and depressive disorder 048976342 F41.8 stable and pleasantEs citalopram Oxalate Tablet 30 mg dailymonit or for mood and behavorial changes. Type 2 jr betes mellitus 85756675 E11.21 continue monitor glucose,Li spro SSI coverageGa bapentin Capsule 300 MG at bedtime for neuropathy pain.trama dol 25 mg q12 prn [id number] FRIEDA ANDERSON [address] [address] 12/25/2023 11:16:29 12/30/2023 16:09:32 Chronic diastolic heart failure 941784330 I50.32 preserved EFBLE +1was on torsemide but was d/c in acute caremonito r weights- [facility] to [facility] Mixed anxi ety and depressive disorder 584891539 F41.8 stable and pleasantEs citalopram Oxalate Tablet 30 mg dailymonit or for mood and behavorial changes. Type 2 jr betes mellitus 85864531 E11.21 continue monitor glucose,Li spro SSI coverageGa bapentin Capsule 300 MG at bedtime for neuropathy pain.trama dol 25 mg q12 prn [id number] Naomi Todd MD [address] [address] 12/26/2023 19:19:22 01/31/2024 14:21:17 Cystitis 95372421 N30.00 Completed course of meropenem 1 g q 12 hrs on 10/26.Monit or for recurrent sxs. Falls 200399098 R29.6 Continues to be a high fall risk and needs CG and sometimes an assist for transfers. No longer getting acute PT/OT services, restart as able.Cindy nue fall precaution s.Monitor for safety. Peripheral venous insufficiency 09145705 I87.2 No current sxs.Contin ue local care and elevation. Chronic di astolic heart failure 980003041 I50.32 Appears euvolemic. Monitor for need for diuretics. Monitor resp. status, fluid status, wts and labs. Chronic ob structive pulmonary disease 20197144 J43.8 Continues with no sxs.Contin ue Advair 250/50 BID and albuterol nebs q 6 hrs prnMonitor resp status. Type 2 jr betes mellitus 97057207 E11.21 Sugars were all <150 when checked for 3 days.Cindy nue gabapentin 300 MG qhs and tramadol q 12 hrs prn for neuropathy Monitor fingerstic ks prn and HgA1C q 3-6 months Paroxysmal atrial flutter 750339786 I48.92 Rate remains in good control on amiodarone 200 mg qdNo AC due to age and fall riskMonito r HR Restless l egs syndrome 66282582 G25.81 Continue ropinirole 2 mg BIDMonitor sxs. Mixed anxi ety and depressive disorder 922054220 F41.8 Mood stableCont inue escitalopr am 30 mg qdMonitor mood.Consu lt psych prn Anemia of chronic disease 276446957 D63.8 Hgb has been stable.Con tinue FeSO4 325 mg qd with vitamin C 250 mg qd for absorption .Monitor labs Hyperlipidemia 87541959 E78.49 Continue atorvastat in 20 mg qdMonitor labs yearly Gastroesop hageal reflux disease 149978572 K21.9 No current sxs.Contin ue pantoprazo le 40 mg qdMonitor sxs Chronic ki dney disease 644437213 N18.1 Renal function remains WNLContinu e to avoid nephrotoxi c meds as able.Monit or labs.Renal consult prn. Chronic back pain 213482 002 G89.29 Continue tramadol 25 mg q 12 hrs prn and gabapentin 300 mg qhsMonitor sxs. [id number] FRIEDA ANDERSON [address] [place] [address] [place] [address] 01/01/2024 08:18:43 01/06/2024 15:39:22 Chronic diastolic heart failure 548870562 I50.32 preserved EFBLE +1was on torsemide but was d/c in acute caremonito r weights- [facility] to [facility] Mixed anxi ety and depressive disorder 108884621 F41.8 stable and pleasantEs citalopram Oxalate Tablet 30 mg dailymonit or for mood and behavorial changes. Type 2 jr betes mellitus 27261994 E11.21 continue monitor glucose,Li spro SSI coverageGa bapentin Capsule 300 MG at bedtime for neuropathy pain.trama dol 25 mg q12 prn Spasm 54350062 R25.2 12/31/23 nursing reported pt was having left upper leg/buttoc k pain/spasm tramadol changed from q12 to q6 and robaxin 500 mg q 6 prn addedtoday pt states that medication was effectivew ill monitor for worsening sx [id number] FRIEDA ANDERSON [address] [address] 01/08/2024 13:26:41 01/10/2024 11:20:05 Chronic diastolic heart failure 484156124 I50.32 no weight gain notedconti nue furosemide 10 mg dailymonit or labs , weightsmon itor for cardiopulm onary sx Mixed anxi ety and depressive disorder 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 Type 2 jr betes mellitus 79262810 E11.21 continue monitor glucose,co ntinue Lispro SSI coverageco ntinue Gabapentin Capsule 300 MG at bedtime for neuropathy pain.cindy nue tramadol 50 mg q 8 prn Spasm 71347477 R25.2 to LLE and glutealpai n has improvedRo baxin 500 mg discontinu e -it was ordered for short term use onlycontin ue tramadol 50 mg prn [id number] FRIEDA ANDERSON [address] [address] 01/15/2024 09:55:29 01/27/2024 16:00:52 Cervical radiculopathy 70847440 M54.12 start diclofenac gel daily and q8 prncontinu e tramadol 50 mg Q6 prncontinu e gabapentin 300 mg at hs add 300 mg QDrefer to physical therapy for eval and tx [id number] CARLTON MINA, [address] [address] 01/22/2024 09:25:19 01/28/2024 11:32:54 Cervical radiculopathy 17295974 M54.12 continue diclofenac gel daily and q8 prncontinu e tramadol 50 mg Q6 prncontinu e gabapentin 300 mg at hs add 300 mg QDper therapy patient neck pain is chronic and she was previously treated and recommende d Chronic di astolic heart failure 612131225 I50.32 monitor labs , weights , edemamonit or for cardiopulm onary sxencourag ed leg elevation/ wraps as needed. Gastroesop hageal reflux disease 926829486 K21.9 Pantoprazo le40 mg dailymonit or for gi upset. Mixed anxi ety and depressive disorder 321512765 F41.8 continue Escitalopr am Oxalate Tablet 30 mg dailymonit or for mood and behavorial changes. Type 2 jr betes mellitus 67247435 E11.21 continue monitor glucose,co ntinue Lispro SSI coverageco ntinue Gabapentin Capsule 300 MG at bedtime for neuropathy pain.cindy nue tramadol 50 mg q 8 prn [id number] CARLTON MINA [address] [address] 01/27/2024 10:53:32 02/17/2024 12:46:54 Cervical radiculopathy 52228439 M54.12 continue diclofenac gel daily and q8 prncontinu e tramadol 50 mg Q6 prncontinu e gabapentin 300 mg at hs add 300 mg QD Chronic di astolic heart failure 680759890 I50.32 monitor labs , weights , edemamonit or for cardiopulm onary sxencourag ed leg elevation/ wraps as needed. Gastroesop hageal reflux disease 365691547 K21.9 Pantoprazo le40 mg dailymonit or for gi upset. Mixed anxi ety and depressive disorder 543391756 F41.8 continue Escitalopr am Oxalate Tablet 30 mg dailymonit or for mood and behavorial changes. Type 2 jr betes mellitus 60264861 E11.21 bgl have been stablecont inue monitor glucose,co ntinue Lispro SSI coverageco ntinue Gabapentin Capsule 300 MG at bedtime for neuropathy pain.cindy nue tramadol 50 mg q 8 prn [place] 662831697 R29.6 no recent fallsConti nunell to be a high fall risk and needs CG and sometimes an assist for transfers. she has reduce functional mobility to left lower extremity due to pain in her ankle.Alba ent would benefit from an AFO to provide support to LLE/ankle and reduce pain. [id number] FRIEDA ANDERSON [address] [place] [address] 01/30/2024 10:23:09 02/04/2024 14:43:29 Bleeding from nose 009038994 R04.0 see hpistart afrin 2 spray to right nares q12 x 5days.janice loera for recurrence monitor BP/rebound congestion [id number] FRIEDA ANDERSON [address] [place] [address] 02/05/2024 09:31:19 02/11/2024 09:17:30 Bleeding from nose 949248097 R04.0 resolved. Cervical radiculopathy 01221268 M54.12 continue diclofenac gel daily and q8 prncontinu e tramadol 50 mg Q6 prncontinu e gabapentin 300 mg at hs add 300 mg QDper therapy patient neck pain is chronic and she was previously treated and recommende d Chronic di astolic heart failure 419622613 I50.32 monitor labs , weights , edemamonit or for cardiopulm onary sxencourag ed leg elevation/ wraps as needed. Gastroesop hageal reflux disease 988296433 K21.9 Pantoprazo le40 mg dailymonit or for gi upset. Mixed anxi ety and depressive disorder 864111218 F41.8 continue Escitalopr am Oxalate Tablet 30 mg dailymonit or for mood and behavorial changes. Type 2 jr betes mellitus 67632674 E11.21 continue monitor glucose,co ntinue Lispro SSI coverageco ntinue Gabapentin Capsule 300 MG at bedtime for neuropathy pain.cindy nue tramadol 50 mg q 8 prn [id number] MD DARRIN Perry [address] [address] 02/28/2024 13:56:25 03/10/2024 11:09:37 Pain in left foot [id number] 48518 M79.672 With new deformity of left great [...] q 8 hrs prn for pain. Diarrhea 09982957 R19.7 Only has happened one time so far, possibly from stress.Ord ered imodium prnMonitor [id number] FRIEDA ANDERSON [address] [address] 03/04/2024 14:57:51 03/10/2024 11:43:05 Pain in left foot [id number] 25960 M79.672 deformity of left great toe, with [...] for pain. Blister of toe without infection 21262386 S90.425A continue warm soaks as aboveclean se left 2nd toe with soap and warm water, hydrogen peroxideap ply petroleum and cover with gauze or non stick dressing daily and prnmonitor for healing. [id number] FRIEDA ANDERSON [address] [address] 03/06/2024 14:42:26 03/10/2024 12:16:05 Mixed anxiety and depressive disorder 877359621 F41.8 continue Escitalopr am Oxalate Tablet 30 mg dailywill adjust trazodone and increased from 12.5 mg to 25 mg scheduled at HS per psych rec.and continue prn trazodone 12.5 mg bid prn, anxiety for 14 days.monit or for mood and behavorial changes. [id number] FRIEDA ANDERSON [address] [place] [address] 03/10/2024 10:17:01 03/16/2024 15:45:17 Pain in left foot [id number] 72669 M79.672 deformity of left great toe, with [...] coming next week, will consult Dr. Tanner [phone] can have wound care see her for further advice- will be seen by wound on ontinu e APAP 650 mg q 6 hrs prn and tramadol 50 mg q 8 hrs prn for pain.she does not have hx of gout but will order uric acid d/t her still having pain despite abx use for 4 days. Blister of toe without infection 99262956 S90.425A continue warm soaks as aboveclean se left 2nd toe with soap and warm water, hydrogen peroxidedr essing changes to Alginate/D CD QD [id number] FRIEDA ANDERSON [address] [place] [address] 03/16/2024 09:19:11 03/19/2024 16:19:43 Pain in left foot 1727471227 18091 M79.672 baseline deformity due to hammer toeabx [...] infection. Mixed anxi ety and depressive disorder 747633305 F41.8 continue Escitalopr am Oxalate Tablet 30 mg dailyrepor ts although medication s have been helpful that she continues with difficultl y falling asleepand evening anxiety.in cre[facility] [place] to 12.5 mg q12 prnmonitor for mood and behavorial changes. [id number] FRIEDA ANDERSON [address] [address] 03/17/2024 10:40:42 03/20/2024 08:44:03 Bleeding from nose 418848558 R04.0 minor nasal bleeding after blowing her nosewill discussed avoiding nose blowing, gently sniff insteadavo id picking nose or rubbing noseafrin nasal 1 spray BID prnsaline nasal spray BID Pain of to e of left foot [id number] 04855 M79.675 reports pain to left great toe and second great toenailini tially flinching on exam when toe(s) were touched , states pain requesting toenail to be cut on 2ndshe provided clippers, I trimmed and file all toenail, she reports toes feeling much betterther e was no observatio n of facial grimacing, flinching or pulling away during procedure. [id number] Naomi Todd MD [address] [address] 03/30/2024 16:40:06 04/01/2024 10:48:39 Falls 072715984 R29.6 Continues to be a high fall risk.Getti ng OT for mobility and safety, primarily wheelchair level.Cont inue fall precaution s.Monitor for safety. Peripheral venous insufficiency 98896426 I87.2 No current sxs.Contin ue local care and elevation. Chronic di astolic heart failure 288689204 I50.32 Appears euvolemic. Continue furosemide 10 mg qdMonitor resp. status, fluid status, wts and labs. Chronic ob structive pulmonary disease 37601902 J43.8 Continues with no sxs.Contin ue Advair 250/50 BID and albuterol nebs q 6 hrs prnMonitor resp status. Type 2 jr betes mellitus 69570596 E11.21 Stable on no meds.Last HgA1C was 6.1 in 06/2023.Con tinue gabapentin 300 MG qhs and tramadol qhs scheduled and BID prn for neuropathy Monitor fingerstic ks prn and HgA1C q 3-6 months Paroxysmal atrial flutter 027149389 I48.92 Rate remains in good control on amiodarone 200 mg qdNo AC due to age and fall riskMonito r HR Restless l egs syndrome 22310937 G25.81 Continue ropinirole 2 mg BIDMonitor sxs. Mixed anxi ety and depressive disorder 238704870 F41.8 Mood sl. down due to pain not improving. Continue escitalopr am 30 mg qdMonitor mood.Consu lt psych prn Anemia of chronic disease 125366882 D63.8 Hgb remains stable.Con tinue FeSO4 325 mg qd with vitamin C 250 mg qd for absorption .Monitor labs Hyperlipidemia 41207835 E78.49 Continue atorvastat in 20 mg qdMonitor labs yearly Gastroesop hageal reflux disease 286672574 K21.9 No current sxs.Contin ue pantoprazo le 40 mg qdMonitor sxs Chronic ki dney disease 919659865 N18.2 Renal function remains stableCont inue to avoid nephrotoxi c meds as able.Monit or labs.Renal consult prn. Chronic back pain 071493 002 G89.29 Continue meds as above.Janice tor sxs. Bleeding from nose 17027 6005 R04.0 Resolved. Pain of to e of left foot 9768521300 01195 M79.675 No improvemen t since toenails cut on 03/17.Left 2nd toe still red and tender.Esteban leung have nursing set up appt with Dr. Lu Holder who has offices in [facility] and [place]. [place] # is [phone] local care until then. Using padding between toes to keep the pressure off.Monito r for signs of infection. Will schedule hs tramadol and keep 50 mg BID prn [id number] FRIEDA ANDERSON DARRIN STYLES [address] [facility] [place] [address] 04/03/2024 11:03:23 04/28/2024 07:31:02 Cellulitis of foot 579688657 L03.119 left footsuspec gloria do to sx.recentl y treated for cellulitis left great toe with doxycyclin ewill start cephalexin 250 mg Q 6 hr for 5 days.will add probiotic BID for 7 daysmonito r for resolution . [id number] MD DARRIN Perry JENSEN [address] [facility] [place] [address] 04/13/2024 17:19:14 04/28/2024 08:01:43 Osteomyelitis 08187111 M86.272 Continue ertapenem 1 gm IV qd [...] Dr. Lu Holder who has offices in [facility] and [place]. [place] # is Falls [id number] R29.6 Continues to be a high fall risk.Able to restart rehab after hospitaliz ation.Need s PT/OT for strengthen ing, balance, gait training, safety and function.C ontinue fall precaution s.Monitor for safety. Chronic di astolic heart failure 024241290 I50.32 Appears euvolemic. Continue furosemide 10 mg qdMonitor resp. status, fluid status, wts and labs. Chronic ob structive pulmonary disease 93239163 J43.8 Continues with no sxs.Contin ue Advair 250/50 BID and albuterol nebs q 6 hrs prnMonitor resp status. Type 2 jr betes mellitus 89410008 E11.21 Sugars inpt were all <100Last HgA1C was 6.1 in 06/2023.Con tinue gabapentin 300 MG qhs and other pain meds as above for neuropathy .Monitor fingerstic ks prn and HgA1C q 3-6 months Paroxysmal atrial flutter 679517570 I48.92 Rate remains in good control on amiodarone 200 mg qdNo AC due to age and fall riskMonito r HR Restless l egs syndrome 12401579 G25.81 Continue ropinirole 2 mg BIDMonitor sxs. Mixed anxi ety and depressive disorder 757864783 F41.8 Mood sl. down due to pain not improving. Continue escitalopr am 30 mg qd, trazadone 25 mg qhs and 12.5 mg BID prn.Monito r mood.Consu lt psych prn Anemia of chronic disease 062804110 D63.8 Hgb remains stable.Con tinue FeSO4 325 mg qd with vitamin C 250 mg qd for absorption .Monitor labs Hyperlipidemia 27914897 E78.49 Continue atorvastat in 20 mg qdMonitor labs yearly Gastroesop hageal reflux disease 018032207 K21.9 No current sxs.Contin ue pantoprazo le 40 mg qdMonitor sxs Chronic ki dney disease 373503264 N18.2 Renal function remains stableCont inue to avoid nephrotoxi c meds as able.Monit or labs.Renal consult prn. Chronic back pain 387326 002 G89.29 Continue meds as above.Janice tor sxs. Peripheral venous insufficiency 94686060 I87.2 No current sxs.Contin ue local care and elevation. [id number] FRIEDA ANDERSON JENSEN [address] [place] [address] 04/16/2024 08:54:52 04/28/2024 08:26:12 Osteomyelitis 47813909 M86.272 Continue ertapenem 1 gm IV qd [...] has offices in [facility], [place] and [place]. [place] # is [place] [id number] R29.6 Continues to be a high fall risk.Able to restart rehab after hospitaliz ation.Need s PT/OT for strengthen ing, balance, gait training, safety and function.C ontinue fall precaution s.Monitor for safety. Chronic di astolic heart failure 401724150 I50.32 Appears euvolemic. Continue furosemide 10 mg qdMonitor resp. status, fluid status, wts and labs. Chronic ob structive pulmonary disease 66513525 J43.8 Continues with no sxs.Contin ue Advair 250/50 BID and albuterol nebs q 6 hrs prnMonitor resp status. Paroxysmal atrial flutter 844303824 I48.92 Rate remains in good control on amiodarone 200 mg qdNo AC due to age and fall riskMonito r HR Restless l egs syndrome 95253953 G25.81 Continue ropinirole 2 mg BIDMonitor sxs. Mixed anxi ety and depressive disorder 899237979 F41.8 Continue escitalopr am 30 mg qd, trazadone 25 mg qhs and 12.5 mg BID prn.Monito r mood.Consu lt psych prn Anemia of chronic disease 213342452 D63.8 Continue FeSO4 325 mg qd with vitamin C 250 mg qd for absorption .Monitor labs Hyperlipidemia 12332882 E78.49 Continue atorvastat in 20 mg qdMonitor labs yearly Gastroesop hageal reflux disease 188609843 K21.9 No current sxs.Contin ue pantoprazo le 40 mg qdMonitor sxs [id number] FRIEDA ANDERSON JENSEN [address] [place] [address] [place] [address] 04/20/2024 10:04:50 04/28/2024 08:59:08 Osteomyelitis 96293334 M86.272 left foot 2nd toe with woundgrima [...] Dr. Lu Holder who has offices in [facility] and [place]. Luis [place] # is [phone] Chronic di astolic heart failure 719925413 I50.32 Appears euvolemic. Continue furosemide 10 mg qdMonitor resp. status, fluid status, wts and labs. Chronic ob structive pulmonary disease 27491057 J43.8 breathing easy and unlabored. Continue Advair 250/50 BID and albuterol nebs q 6 hrs prnMonitor resp status. Mixed anxi ety and depressive disorder 115437544 F41.8 her mood is normal reports eating and drinking ok.Continu e escitalopr am 30 mg qd, trazadone 25 mg qhs and 12.5 mg BID prn.Monito r mood.Consu lt psych prn [id number] Naomi Todd MD [address] [place] [address] 04/23/2024 22:13:47 04/30/2024 18:09:13 Osteomyelitis 26008797 M86.272 Continue ertapenem 1 gm IV qd [...] Lu Holder's office again. Has offices in [facility] and [place]. [place] # is [place] [id number] R29.6 Is still a high fall risk.Needs PT/OT for strengthen ing, balance, gait training, safety and function.C ontinue fall precaution s.Monitor for safety. Chronic di astolic heart failure 899053171 I50.32 Remains euvolemic. Continue furosemide 10 mg qdMonitor resp. status, fluid status, wts and labs. Chronic ob structive pulmonary disease 07472528 J43.8 Continues with no sxs.Contin ue Advair 250/50 BID and albuterol nebs q 6 hrs prnMonitor resp status. Type 2 jr betes mellitus 81805724 E11.21 Sugars were all good, so not being checked regularly. Last HgA1C was 6.1 in 06/2023.Con tinue gabapentin 300 MG qhs and other pain meds as above for neuropathy .Monitor fingerstic ks prn and HgA1C q 3-6 months [id number] GOLDIE TREVIZO [address] [facility] [address] [place], [place] [address] 04/30/2024 08:46:54 05/02/2024 09:31:27 Osteomyelitis 73066954 M86.272 left foot 2nd toe with wound, [...] has offices in [facility], [place] and [place]. [place] # is Chronic di astolic heart failure 495277549 I50.32 Appears euvolemic. Continue furosemide 10 mg qdMonitor resp. status, fluid status, wts and labs. Chronic ob structive pulmonary disease 76688982 J43.8 breathing easy and unlabored. Continue Advair 250/50 BID and albuterol nebs q 6 hrs prnMonitor resp status. Mixed anxi ety and depressive disorder 221194776 F41.8 her mood is normal reports eating and drinking ok.Continu e escitalopr am 30 mg qd, trazadone 25 mg qhs and 12.5 mg BID prn.Monito r mood.Consu lt psych prn Gastroesop hageal reflux disease 385273874 K21.9 Reporting some nausea after eating, unsure if may be related to abx use. Discused with nsg., will monitor.Co ntinue pantoprazo le 40 mg qdMonitor sxs Restless l egs syndrome 22621111 G25.81 Continue requip, very helpful Headache 21074479 R51.9 history of, including migraines, for years.Most headaches in the forehead area and above eyes.APAP discussed, helps, would like it sched. if possible.Eloy beaversg. who also feels it would be a good idea, so will sched. 650 mg tid.Monito r. [id number] FRIEDA ANDERSON [address] [place] [address] rd [place] [address] 05/05/2024 11:02:17 05/06/2024 15:43:52 Osteomyelitis 18644416 M86.272 left foot 2nd toe with wound, [...] has offices in [facility], [place] and [place]. [place] # is Chronic di astolic heart failure 591454527 I50.32 Appears euvolemic. Continue furosemide 10 mg qdMonitor resp. status, fluid status, wts and labs. Chronic ob structive pulmonary disease 67208898 J43.8 breathing easy and unlabored. Continue Advair 250/50 BID and albuterol nebs q 6 hrs prnMonitor resp status. Mixed anxi ety and depressive disorder 763694104 F41.8 her mood is normal reports eating and drinking ok.Continu e escitalopr am 30 mg qd, trazadone 25 mg qhs and 12.5 mg BID prn.Monito r mood.Consu lt psych prn Gastroesop hageal reflux disease 717516008 K21.9 Continue pantoprazo le 40 mg qdMonitor sxs Restless l egs syndrome 67571617 G25.81 Continue requip, very helpful Headache 28575746 R51.9 history of, including migraines, for years.Most headaches in the forehead area and above eyes.APAP discussed, helps, would like it sched. if possible.Eloy mo. who also feels it would be a good idea, so will sched. 650 mg tid.Monito r. [id number] FRIEDA ANDERSON [address] [place] [address] rd [place] [address] 05/07/2024 10:05:01 05/11/2024 16:11:56 Osteomyelitis 90472682 M86.272 Continue ertapenem 1 gm IV qd [...] Dr. Lu Holder who has offices in [facility] and [place]. [place] # is Chronic di astolic heart failure 067849060 I50.32 Appears euvolemic. Continue furosemide 10 mg qdMonitor resp. status, fluid status, wts and labs. Chronic ob structive pulmonary disease 52713984 J43.8 breathing easy and unlabored. Continue Advair 250/50 BID and albuterol nebs q 6 hrs prnMonitor resp status. Mixed anxi ety and depressive disorder 034866077 F41.8 Continue escitalopr am 30 mg qd, trazadone 25 mg qhs and 12.5 mg BID prn.Monito r mood.Consu lt psych prn Gastroesop hageal reflux disease 250665515 K21.9 Continue pantoprazo le 40 mg qdMonitor sxs Restless l egs syndrome 80935664 G25.81 Continue requip, very helpful Headache 23655990 R51.9 continue tylenol 650 mg prn.encour age to increase oral hydration. [id number] FRIEDA ANDERSON DARRIN STYLES [address] [place] [address] [place] [address] 05/11/2024 16:30:45 05/12/2024 13:09:07 Osteomyelitis 99081620 M86.272 Has been tolerating IV therapy.Co ntinue [...] has offices in [facility], [place] and [place]. [place] # is Chronic di astolic heart failure 593705661 I50.32 euvolemic. Continue furosemide 10 mg qdMonitor resp. status, fluid status, wts and labs. Chronic ob structive pulmonary disease 93144687 J43.8 Continue Advair 250/50 BID and albuterol nebs q 6 hrs prnMonitor resp status. Mixed anxi ety and depressive disorder 007325203 F41.8 Continue escitalopr am 30 mg qd, trazadone 25 mg qhs and 12.5 mg BID prn.mood is good today. pleasant on exam.Monit or moodConsul t psych prn Gastroesop hageal reflux disease 588404518 K21.9 Continue pantoprazo le 40 mg qdMonitor sxs Restless l egs syndrome 39403528 G25.81 Continue requip 2 mg bid Headache 98934686 R51.9 continue tylenol 650 mg prn.encour age to increase oral hydration. [id number] FRIEDA ANDERSON DARRIN STYLES [address] [place] [address] [place] [address] 05/15/2024 10:17:08 05/19/2024 11:08:19 Osteomyelitis 93888377 M86.272 Has been tolerating IV therapy.Co ntinue ertapenem 1 gm IV qd until ontin ue probiotic BIDContinu e local care as ordered.Mo nitor labs (CBC, CMP, ESR, and CRP weekly until 05/18) and skin condition. Chronic di astolic heart failure 594319736 I50.32 euvolemic. Continue furosemide 10 mg qdMonitor resp. status, fluid status, wts and labs. Chronic ob structive pulmonary disease 00679394 J43.8 Continue Advair 250/50 BID and albuterol nebs q 6 hrs prnMonitor resp status. Mixed anxi ety and depressive disorder 915077435 F41.8 Continue escitalopr am 30 mg qd, trazadone 25 mg qhs and 12.5 mg BID prn.mood is good today. pleasant on exam.Monit or moodConsul t psych prn Gastroesop hageal reflux disease 548232880 K21.9 Continue pantoprazo le 40 mg qdthere has been no reported GI upset. Restless l egs syndrome 26876720 G25.81 Continue requip 2 mg bid Headache 28471443 R51.9 continue tylenol 650 mg prn.encour age to increase oral hydration. [id number] FRIEDA ANDERSON JENSEN [address] [place] [address] [place] [address] 05/18/2024 08:44:49 05/19/2024 11:16:27 Osteomyelitis 15855609 M86.272 completed abxcontinu e probiotic BIDContinu e local care as ordered.f/ u appt. with ID later today Chronic di astolic heart failure 331808179 I50.32 stableCont inue furosemide 10 mg qdMonitor resp. status, fluid status, wts and labs. Chronic ob structive pulmonary disease 15672981 J43.8 breathing easy and unlabored. Continue Advair 250/50 BID and albuterol nebs q 6 hrs prnMonitor resp status. Mixed anxi ety and depressive disorder 279493850 F41.8 Continue escitalopr am 30 mg qd, trazadone 25 mg qhs and 12.5 mg BID prn.Monito r moodConsul t psych prn Gastroesop hageal reflux disease 131812437 K21.9 Continue pantoprazo le 40 mg qdthere has been no reported GI upset. Restless l egs syndrome 16557213 G25.81 Continue requip 2 mg bid Headache 48247312 R51.9 continue tylenol 650 mg prn.encour age to increase oral hydration. [id number] FRIEDA ANDERSON [address] [id number] 5 05/25/2024 09:58:25 05/29/2024 09:27:36 Osteomyelitis 71259357 M86.272 completed abx Chronic di astolic heart failure 843122185 I50.32 euvolemicC ontinue furosemide 10 mg qdMonitor resp. status, fluid status, wts and labs. Chronic ob structive pulmonary disease 50597356 J43.8 breathing easy and unlabored. Continue Advair 250/50 BID and albuterol nebs q 6 hrs prnMonitor resp status. Mixed anxi ety and depressive disorder 144071333 F41.8 Continue escitalopr am 30 mg qd, trazadone 25 mg qhs and 12.5 mg BID prn.Monito r moodConsul t psych prn Gastroesop hageal reflux disease 562754544 K21.9 Continue pantoprazo le 40 mg qdthere has been no reported GI upset. Restless l egs syndrome 31174036 G25.81 Continue requip 2 mg bid Headache 17624098 R51.9 continue tylenol 650 mg prn.encour age to increase oral hydration. [id number] FRIEDA ANDERSON [address] [address] 06/01/2024 09:58:25 06/03/2024 09:34:34 Osteomyelitis 81517255 M86.272 completed abx Chronic di astolic heart failure 401165876 I50.32 euvolemicC ontinue furosemide 10 mg qdMonitor resp. status, fluid status, wts and labs. Chronic ob structive pulmonary disease 50902902 J43.8 breathing easy and unlabored. Continue Advair 250/50 BID and albuterol nebs q 6 hrs prnMonitor resp status. Mixed anxi ety and depressive disorder 631754194 F41.8 mood is stableCont inue escitalopr am 30 mg qd, trazadone 25 mg qhs and 12.5 mg BID prn.Monito r moodConsul t psych prn [id number] FRIEDA ANDERSON DARRIN KAME [address] [place] [address] [place] BR[place]SS[place] [address] 5 06/03/2024 11:42:59 06/09/2024 13:21:42 Osteomyelitis 03651898 M86.272 completed abx Chronic di astolic heart failure 659716197 I50.32 euvolemicC ontinue furosemide 10 mg qdMonitor resp. status, fluid status, wts and labs. Chronic ob structive pulmonary disease 35443788 J43.8 breathing easy and unlabored. Continue Advair 250/50 BID and albuterol nebs q 6 hrs prnMonitor resp status. Mixed anxi ety and depressive disorder 480888055 F41.8 mood is stableCont inue escitalopr am 30 mg qd, trazadone 25 mg qhs and 12.5 mg BID prn.Monito r moodConsul t psych prn [id number] FRIEDA ANDERSON [facility] JENSEN [address] [place] [address] [place]SS[place] [address] 5 06/09/2024 10:12:41 06/11/2024 14:30:47 Osteomyelitis 06633623 M86.272 06/09:clinic ally she is stableleft foot [...] dry and apply bacitracin with DCD BID. [id number] FRIEDA ANDERSON DARRIN STYLES [address] [place] [address] [place] [address] 5 06/11/2024 11:46:23 06/15/2024 11:21:06 Osteomyelitis 99406513 M86.272 06/09:clinic ally she is stableleft foot [...] a second consult with ortho. appt 06/18/24. [id number] FRIEDA ANDERSON [address] [address] 5 06/15/2024 09:48:35 06/17/2024 10:12:04 Osteomyelitis 79927456 M86.272 06/09:clinic ally she is stableleft foot [...] appt 06/18/24. Chronic di astolic heart failure 090656448 I50.32 euvolemicw eight stableCont inue furosemide 10 mg qdMonitor resp. status, fluid status, wts and labs. Chronic ob structive pulmonary disease 63428190 J43.8 breathing easy and unlabored. Continue Advair 250/50 BID and albuterol nebs q 6 hrs prnMonitor resp status. [id number] [facility] [address] [place] [phone] 5 06/22/2024 08:47:12 06/24/2024 08:50:27 Osteomyelitis 01760212 M86.272 06/09:clinic ally she is stableleft foot [...] gaines. Mixed anxi ety and depressive disorder 959602141 F41.8 mood is stablerece nt room change transition to LTC, adjusting well. Most of the women she joins at activities reside on same unit, she is happy about this.Cindy nue escitalopr am 30 mg qd, trazadone 25 mg qhs and 12.5 mg BID prn.Monito r moodConsul t psych prn [id number] RFIEDA ANDERSON [address] [place] [address], [place] [address] 06/29/2024 10:45:15 06/30/2024 13:34:02 Osteomyelitis 55840782 M86.272 06/09:clinic ally she is stableleft foot [...] ortho. Mixed anxi ety and depressive disorder 390985513 F41.8 mood is stablerece nt room change transition to LTC, adjusting well. Most of the women she joins at activities reside on same unit, she is happy about this.Cindy nue escitalopr am 30 mg qd, trazadone 25 mg qhs and 12.5 mg BID prn.Monito r moodConsul t psych prn Chronic di astolic heart failure 944444890 I50.32 euvolemicw eight stable noted 166-168Con tinue furosemide 10 mg qdMonitor resp. status, fluid status, wts and labs. [id number] FRIEDA ANDERSON JENSEN [facility] [place] [address] 07/02/2024 11:07:08 07/03/2024 12:50:28 Mixed anxiety and depressive disorder 099746066 F41.8 mood is stable- she denies feeling hopeless, lonely or isolated.C ontinue escitalopr am 30 mg qd, trazadone 25 mg qhs and 12.5 mg BID prn.Monito r mood for negative changes.pt encouraged to continue to engage in social activities .Consult psych prn Chronic di astolic heart failure 606224631 I50.32 euvolemic- she denies any chest pain or shortness of breathweig ht stable noted 166-168Con tinue furosemide 10 mg qdMonitor resp. status, fluid status, wts and labs. Hammer toe 207316331 M20 .42 left foot 2 nd toe-recent ly completed IV antibiotic s ertapenem 1 gm daily for 6 weeks for osteomyeli tis. she continues to have discomfort . follow up xray results: no acute abnormalit y is seen in the left foot. [id number] [facility] AND[facility] [address] [place] [phone] 5 07/07/2024 14:44:04 07/08/2024 11:39:59 Hammer toe 025795851 M20.42 left foot 2 nd toe-recent ly completed IV antibiotic s ertapenem 1 gm daily for 6 weeks for osteomyeli tis. she continues to have discomfort . follow up xray results: no acute abnormalit y is seen in the left foot. Mixed anxi ety and depressive disorder 954362851 F41.8 mood is stable- she denies feeling hopeless, lonely or isolated.C ontinue escitalopr am 30 mg qd, trazadone 25 mg qhs and 12.5 mg BID prn.Monito r mood for negative changes.pt encouraged to continue to engage in social activities .followed by psych prn recently seen 07/06 no new recommenda tion. Chronic di astolic heart failure 028911432 I50.32 euvolemic- she denies any chest pain or shortness of breathweig ht stable noted 166-168Con tinue furosemide 10 mg qdMonitor resp. status, fluid status, wts and labs. [id number] FRIEDA ANDERSON [address] [address] 07/13/2024 08:31:31 07/14/2024 11:43:51 Hammer toe 121421000 M20.42 07/13:stabl e, no worsening sx notedleft foot 2 nd toe-recent ly completed IV antibiotic s ertapenem 1 gm daily for 6 weeks for osteomyeli tis. she continues to have discomfort . follow up xray results: no acute abnormalit y is seen in the left foot. Mixed anxi ety and depressive disorder 017423133 F41.8 07/13: StableCont inue escitalopr am 30 mg qd, trazadone 25 mg qhs and 12.5 mg BID prn.Monito r mood for negative changes.pt encouraged to continue to engage in social activities .followed by psych prn recently seen 07/06 no new recommenda tion. Chronic di astolic heart failure 631632030 I50.32 07/13: stable.euv olemic- she denies any chest pain or shortness of breathweig ht stable noted 166-168Con tinue furosemide 10 mg qdMonitor resp. status, fluid status, wts and labs. [id number] FRIEDA ANDERSON [address] [address] 07/16/2024 10:15:02 07/21/2024 15:43:58 Hammer toe 804329732 M20.42 07/13:stabl e, no worsening sx notedleft foot 2 nd toe-recent ly completed IV antibiotic s ertapenem 1 gm daily for 6 weeks for osteomyeli tis. she continues to have discomfort . follow up xray results: no acute abnormalit y is seen in the left foot. Mixed anxi ety and depressive disorder 872034898 F41.8 Stable with delusional thoughts, she thinks staff is stealing her clothes.Co ntinue escitalopr am 30 mg qd, trazadone 25 mg qhs and 12.5 mg BID prn.Monito r mood for negative changes.pt encouraged to continue to engage in social activities .followed by psych prn recently seen 07/06 no new recommenda tion. Chronic di astolic heart failure 770719346 I50.32 stable.euv olemic- she denies any chest pain or shortness of breathweig ht stable noted 166-168Con tinue furosemide 10 mg qdMonitor resp. status, fluid status, wts and labs. [id number] FRIEDA ANDERSON [address] [place] [address] 07/20/2024 11:57:24 07/21/2024 16:08:03 Hammer toe 408000456 M20.42 stable, no worsening sx notedleft foot 2 nd toe-recent ly completed IV antibiotic s ertapenem 1 gm daily for 6 weeks for osteomyeli tis. she continues to have discomfort . follow up xray results: no acute abnormalit y is seen in the left foot. Mixed anxi ety and depressive disorder 507339513 F41.8 07/19: seen by advanced practice nurse psychotherapist will review notes when available. Stable with delusional thoughts, she thinks staff is stealing her clothes.Co ntinue escitalopr am 30 mg qd, trazadone 25 mg qhs and 12.5 mg BID prn.Monito r mood for negative changes.pt encouraged to continue to engage in social activities .followed by psych prn recently seen 07/06 no new recommenda tion. Chronic di astolic heart failure 381956726 I50.32 stable.euv olemic- she denies any chest pain or shortness of breathweig ht stable noted 166-168Con tinue furosemide 10 mg qdMonitor resp. status, fluid status, wts and labs. [id number] FRIEDA ANDERSON [facility] [address] [place] [phone] 1 07/23/2024 11:46:33 07/24/2024 11:44:07 Hammer toe 917459405 M20.42 stable, no worsening sx notedleft foot 2 nd toe-recent ly completed IV antibiotic s ertapenem 1 gm daily for 6 weeks for osteomyeli tis. she continues to have discomfort . follow up xray results: no acute abnormalit y is seen in the left foot. Mixed anxi ety and depressive disorder 986553847 F41.8 StableCont inue escitalopr am 30 mg qd, trazadone 25 mg qhs and 12.5 mg BID prn.Monito r mood for negative changes.pt encouraged to continue to engage in social activities .followed by psych prn recently seen 07/06 no new recommenda tion. Chronic di astolic heart failure 366221524 I50.32 stable.euv olemic- she denies any chest pain or shortness of breathweig ht stable noted 166-168Con tinue furosemide 10 mg qdMonitor resp. status, fluid status, wts and labs. Chronic ob structive pulmonary disease 19179608 J43.8 breathing easy and unlabored. Continue Advair 250/50 BID and albuterol nebs q 6 hrs prnMonitor resp status. [id number] FRIEDA ANDERSON [address] [address] 09/10/2024 08:43:17 09/11/2024 12:05:09 Mixed anxiety and depressive disorder 426898874 F41.8 mild emotional distress, crying during assessment 2/2 ble painContin ue escitalopr am 30 mg qd, trazadone 25 mg qhs and 12.5 mg BID prn.psych prn Chronic di astolic heart failure 367089419 I50.32 euvolemic- she denies any chest pain or shortness of breathweig ht stableCont inue furosemide 20 mg qdMonitor resp. status, fluid status, wts and labs. Chronic ob structive pulmonary disease 11279400 J43.8 breathing easy and unlabored. Continue Advair 250/50 BID and albuterol nebs q 6 hrs prnMonitor resp status. Neuropathy 037721612 G62 .9 see hpiBLE without sx of infectiono n gabapentin 300 mg at hs -she has been having increasing sx and weakness, requiring 2 people assist.dis cussed increasing gabapentin to BID and re eval in a few days for effect.hx diabetes/n ot on meds/ will get updated A1c. (06/2023 noted 6.1) Restless l egs syndrome 09716283 G25.81 Continue requip 2 mg bid [id number] FRIEDA ANDERSON [address] [address] 5 09/14/2024 10:23:24 09/15/2024 14:23:56 Neuropathy 433357897 G62.9 BLE without sx of infectiong abapentin 300 mg BIDshe has been having increasing sx and weakness, requiring 2 people assist.hx diabetes/n ot on meds/ will get updated A1c. (06/2023 noted 6.1) - labs ord for today not completed will re-order. Restless l egs syndrome 40740478 G25.81 Continue requip 2 mg bid [id number] FRIEDA ANDERSON [facility] [address] [place] [address] [place] [address] 10/02/2024 11:01:09 10/05/2024 13:31:21 Pain of left ankle joint [id number] 9325722 M25.572 localizedn on pitting left ankle swelling, no redness or warmthno foot discolorat ion, color is normal+CMS , pain with ROMplan for xray, labs with uric acid,apply ice 15 minutes to ankle TIDapply tyrone wrap compressio n dailywill schedule tylenol 650 mg TID and Motrin 400 mg BIDPT/OT eval and tx [id number] FRIEDA ANDERSON DARRIN JENSEN [address] [place] [address] 5 10/05/2024 11:01:37 10/06/2024 13:54:09 Pain of left ankle joint 4310804856 4931495 M25.572 localized/ swelling noted to have improved [...] BIDPT/OT eval and tx Contusion of thigh 37238 003 S70.10XA see hpi/left thightende r to touchmonit or as it healsdiscu ssed with nursingcon tinue scheduled tylenol [id number] MD DARRIN Roe [address] [place] [address] [place] [address] 11/25/2024 11:52:19 11/26/2024 15:26:27 Acute low back pain 360799832 M54.59 acute on chronic low back pain with point tenderness lumbar spinex ray to eval for concern vert comp fxx ray left hipchange tramadol 50 mg to q 6 prnmonitor need for ortho eval Chronic di astolic heart failure 076104054 I50.32 euvolemic- she denies any chest pain or shortness of breathweig ht stableCont inue furosemide 20 mg qdMonitor resp. status, fluid status, wts and labs. 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 increased confusion at hospital is currently A and O x 3 with poor short term recall Asthenia 48567312 R53.1 therapy to re-evaluat e to determine baseline Cardiac en zymes outside reference range 752569835 R89.0 eval by cards now onasa 81 mg qdlipitor 40 mg qdmonitor sx Essential hypertension 56709408 I10 lasix 20 mg qd prn for weight gain associated with chfstarted on norvasc 2.5 mg qdmonitor bp and need to titrate Chronic di astolic heart failure 497509991 I50.32 Continue furosemide 20 mg qd prn weight gain Paroxysmal atrial flutter 152274296 I48.3 amiodarone 200 mg qdmonitor rate control Impaired cognition 95970 6002 R41.89 question of poor insight prior to above infectionb eing eval by psych for competency evalwill await recs [id number] MD DARRIN Roe [address] [place] [phone] 5 01/06/2025 11:35:48 01/08/2025 08:30:51 Toxic metabolic encephalopathy 152533697 G92.8 see aboveincre ased confusion at hospital is currently A and O x 3 with poor short term recallnow invokedmon itor level of insight Impaired cognition 26986 6002 R41.89 appreciate psych eval and recswill invoke HCPmonitor level of insight as patient is alert and oriented to person place and time which she states easily Asthenia 82958183 R53.1 coordinate with therapymon itor fall risk [id number] DANIELLE GOFF CNP [address] [place] [address] 01/13/2025 11:16:32 01/20/2025 11:19:42 Chronic diastolic heart failure 068684753 I50.32 stable, euvolemic- she denies any chest pain or shortness of breathweig ht stable 160-170Con tinue furosemide 20 mg qdMonitor resp. status, fluid status, wts and labs. Chronic ob structive pulmonary disease 36785949 J43.8 stablemoni tor respirator y status and albuterol utilizatio n Gastroesop hageal reflux disease 539169801 K21.9 protonix 40 mg qdmonitor sx control Mixed anxi ety and depressive disorder 716546100 F41.8 mood stable.Con tinue escitalopr am 30 mg qd, trazadone 25 mg qhs and 12.5 mg BID prn.psych prn Restless l egs syndrome 52915494 G25.81 StableCont inue requip 2 mg bid Impaired cognition 30327 6002 R41.89 appreciate psych eval and recsHCP invoked.mo nitor level of insight as patient is alert and oriented to person place and time which she states easily Toxic meta bolic encephalopathy 289039502 G92.8 see aboveincre ased confusion at hospital is currently A and O x 3 with poor short term recallnow invokedmon itor level of insight Asthenia 77676849 R53.1 coordinate with therapymon itor fall risk Respirator y syncytial virus infection 23558396 B33.8 [id number] No acute respirator y distress noted.Cont inue supportive care.Monit or respirator y status. [id number] [facility] ANDERSON [facility] [address] [place] [address] [place]SS[place] [address] 04/14/2025 05:51:03 04/16/2025 13:06:59 Chronic diastolic heart failure 452671693 I50.32 Continue furosemide 20 mg qdMonitor resp. status, fluid status, wts and labs. Chronic ob structive pulmonary disease 85783997 J43.8 stablemoni tor respirator y status and albuterol utilizatio n Gastroesop hageal reflux disease 265792042 K21.9 protonix 40 mg qdmonitor sx control Mixed anxi ety and depressive disorder 965474335 F41.8 Continue escitalopr am 30 mg qd, trazadone 25 mg qhs and 12.5 mg BID prn.psych prn Restless l egs syndrome 71380853 G25.81 Continue requip 2 mg bid Impaired cognition 15828 6002 R41.89 ? underlying dementiawa x and wane with confusione xpect decline Chronic ki dney disease 644219532 N18.2 Renal function is at baselinemo nitor labsavoid nephrotoxi c drugs Essential hypertension 69864513 I10 lasix 20 mg qd prn for [...] [place]: [employer] Shreya M Gravel [id number] Shreya Gravel 04/14/2025 2 [place] [id number] Shreya Gravel [id number] Shreya Gravel Notes Date Note Type Note Provider Name and Address Organization Details Recorded Time 11/25/2024 text/html Patient is a 89 yo female resident due for routine rounding also seen for acute rounding with complaint of chronic pain. PMH chf, a flutter, gerd, anemia, copd, chronic pain eRx Bass MD [address] [facility], [address], [place], [address], [facility] [employer] 11/25/2024 12:03:07 12/14/2024 text/html Patient is an [...] underlying cognitive impairment Rex Bass MD [address] [facility], [address], [place], [address], [facility] 12/14/2024 10:00:50 01/06/2025 text/html Patient is [...] belong throughout day. Rex Bass MD [address] [facility], [address], [place], [address], [facility] 01/06/2025 11:42:10 01/13/2025 text/html Shreya is [...] syndrome, depression, anxiety, LLE cellulitis. DANIELLE GOFF, BRIMMING MACHINE OPERATOR [address] [facility], [address], [place], [address], [facility] 01/13/2025 11:53:02 04/14/2025 text/html 89 yo female LTC resident seen for routine rounding. Medically she is stable, she is at her baseline in NAD. FRIEDA ANDERSON [address] [facility], [address], [place], [address], [facility] 04/15/2025 19:03:46 OBGyn Episode No OBEpisode recorded.
--- OUTSIDE RECORDS SUMMARY | 2025-09-28 08:30 | XMS_ITS | Data Portability ---
Author Organization [place] [facility] Address [address] [place] [address] Care Team Providers Care Local Flatbed Driver Name Role Phone ABAD ISLAS Primary Care Provider [phone] [facility] OTHER Assessment Encounter [...] infection as well. She is followed by [facility] for wound care of both legs. She has developed burning pain with and redness to both wounds worse on the left. [facility] is coming in every two days [...] extremities Skin: no rash, The right lower imddleton 3x2 cm with yellow slough. There some [...] left extremity that is consistent with cellulitis. [facility] is in every 2 days [...] [place], respiratory specimen 2020 021 [email or web address] 3 [facility], [address] [place] [address], [address], 11:23:08 Referral None recorded. Procedures None recorded. Surgeries None recorded. Imaging US, duplex, venous, extremity, limited - swelling of left lower extremity, s/p fall and wound to left lower extremity r/o DVT pt is homebound,d oes not drive 2021 [address] [facility] ([facility]), [address] [place], [address], 2 18:21:15 XR, foot, 3 or more view - r/o right 2nd toe fracture. call pt @ 2021 022 [email or web address] [facility] Corporate Office ([facility] [facility]), [address] [place], [address], 2 10:17:17 XR, chest, 2 view 2020 [email or web address] [facility] Corporate [facility] ([facility]), [address] [place], [address], 16:59:08 Medication Orders cephalexin 500 mg capsule [email or web address] [facility][id number], [address] [place], [address], 16:20:51 cephalexin 500 mg capsule [address] [id number], [address] [place], [address], 16:21:00 cephalexin 500 mg capsule [email or web address] [id number], [address] [place], [address], 15:51:19 azithromyci n 250 mg tablet [email or web address] [id number], [address] [place], [address], 13:35:29 Patient TargetsNo targets recorded. Patient Instructions Encounter Date Encounter Id Patient Instructions Last Modified By Organization Details Last Modified Time 08/31/2021 [id number] What is coronavi ethel disease 2019? Coronavirus disease 2019 (COVID-19) is a respiratory illness that can spread from person to person. The virus that causes COVID-19 is a novel coronavirus that was first identified during an investigation into an outbreak in [facility]. Can I get COVID-19? Yes. COVID-19 [...] least 20 seconds. Use an alcohol-based hand programming instructor that contains at least 60% alcohol if [...] (EUA). The EUA is supported by the [employer] of Health and Human Service s (HHS [...] or worsen. Not available 08/31/2021 20:06:42 09/02/2021 [id number] Thank you for yo ur visit with [facility] today. We cannot always find the [...] condition between 8am-10pm, please call [facility] at [phone] to help navigate your care. [email or web address] pablo Not available 09/02/2021 22:29:43 12/08/2021 [id number] Thank you for yo ur visit with [facility] today. We cannot always find the exact [...] in your condition between 8am-10pm, please call [facility] at [phone] to help navigate your care. Thank you for your visit with [facility] today. You do not appear to have [...] in your condition between 8am-10pm, please call [facility] at [phone] to help navigate your care. [email or web address] Not available 12/08/2021 17:46:11 03/21/2022 [id number] Thank you for yo ur visit with [facility] today. You may have had laboratory tests [...] your condition between 8am-10pm, [facility] at [phone] to help navigate your care. [email or web address] Not available 03/21/2022 17:19:04 Reason for Referral None Reported. Results Created Date Observation Date Name Description Value Unit Range Abnormal Flag Note LastModifiedBy Organization Detail LastModifiedTime 08/31/20 21 08/31/2021 rapid SARS CoV + SARS CoV 2 Ag, QL [place], respi rator y speci men Covid-19 (ref: neg) positi ve Not Available Spr - Home [address] [place], [address], 08/31/2021 11:22:25 08/31/20 21 08/31/2021 rapid SARS CoV + SARS CoV 2 Ag, QL [place], respi rator y speci men Control Visual ized/V alid Not Available [facility] - Home [address] [place], [address], 08/31/2021 11:22:25 08/31/20 21 08/31/2021 rapid SARS CoV + SARS CoV 2 Ag, QL [place], respi rator y speci men Location SPR, [facility] Saida canas s , [address] [place] [address], [id number] Not Available [facility] - Home [address] [place], [address], 08/31/2021 11:22:25 08/31/20 21 08/31/2021 rapid SARS CoV + SARS CoV 2 Ag, QL [place], respi rator y speci men Race & Ethnicity Other White Not Available [facility] - Home [address] [place], [address], 08/31/2021 11:22:25 08/31/20 21 08/31/2021 rapid SARS CoV + SARS CoV 2 Ag, QL [place], respi rator y speci men Language Englis h Not Available Spr - Home [address], [place], [address], 08/31/2021 11:22:25 09/01/20 21 XR, chest , 2 view No observ ation record ed. [facility] Corporate [facility] ([facility] [employer]) [address] [facility], [place], [address], 09/02/2021 18:27:35 03/02/20 22 03/02/2022 venou s [...] MIRAMONTES M.D. 022 6:10:3 5 PM EDT. [email or web address] [employer] [address] [facility] [address], [place], [address], 03/04/2022 22:42:26 Result Notes None recorded. Problems Name Problem SNOMED Code Status Onset Date Resolution Date Notes Provider Name and Address Organization Details Recorded Time Hypertensive disorder 03340012 Active 2018 [place] [facility] 17:08:43 Hypertensive disorder 69866506 Active 2019 [place] [facility] 17:08:43 Problem Notes None recorded. Procedures Surgical History Date Name Laterality Status Provider Name and Address Organization Details Recorded Time 021 Medication Review completed Shania Marrero NP [address] [place], [address], [place] [facility] 10/22/2020 12:08:57 021 IV Start Procedure - completed JOSSE SALGADO NP [address] [place], [address], [place] [facility] 10/20/2020 12:39:22 020 Venipuncture - completed TAE SESAY [address] [place], [address], [place] [facility] 10/27/2019 23:49:05 cholecystectomy completed Carly DUBON NP [address] [place], [address], [place] [facility] 08/31/2021 11:12:48 hysterectomy completed Carly MCKEON NP [address] [place], [address], [place] [facility] 08/31/2021 11:12:58 Cabg vein four completed Carly MCKEON NP [address] [place], [address], [place] [facility] 08/31/2021 11:13:24 Imaging Results [...] completed Not Available Not Available Not Available Melodigram Ultra Test strips TESTS DAILY FOR DM, [...] /min 96.7 [degF] 112/60 mm[Hg] Not Available [facility] 2 13:37:22 Date Recorded Oxygen saturation Respiratory rate Heart rate Body temperature Systolic And Diastolic Provider Name and Address Organization Details Last Updated DateTime 2 97 % 16 /min 71 /min 98.5 [degF] 116/68 mm[Hg] Not Available [facility] 2 15:55:18 Date Recorded Body temperature Oxygen saturation Heart rate Respiratory rate Systolic And Diastolic Provider Name and Address Organization Details Last Updated DateTime 1 97.5 [degF] 95 % 71 /min 20 /min 130/68 mm[Hg] Not Available [facility] 1 11:02:38 Date Recorded Oxygen saturation Respiratory rate Body temperature Heart rate Systolic And Diastolic Provider Name and Address Organization Details Last Updated DateTime 1 96 % 22 /min 98.6 [degF] 68 /min 124/78 mm[Hg] Not Available [facility] 1 16:52:24 Social History Question Answer Notes LastModified by Organizat ion Details LastModified Time Tobacco Smoking Status Former Smoker JOSSE SALGADO, GOLDIE [address] [place], [address], [place] [facility] 12/26/2019 13:07:15 Do You Have An Advance Directive? Yes Information not available 12/26/2019 What Is Your Code Status? Full Code Information not available 12/26/2019 Drugs Abused None [email or web address] Information not available 10/17/2020 How Many Days In The Past Year Have You Had A Heavy Drinking Consumption (4+ Female, 5+ Male)? 0 [email or web address] Information not available 10/17/2020 Within The Past 12 Months, Has It Happened That The Food You Bought Just Didn't Last And You Didn't Have Money To Get More. No [email or web address] Information not available 10/17/2020 Within The Past 12 Months, Have You Worried That Your Food Would Run Out Before You Got Money To Buy More. No [email or web address] Information not available 10/17/2020 Fall Risk: Do You Feel Unsteady When Standing Or Walking? Yes [email or web address] Information not available 10/17/2020 We Know That How And When People Interact With Friends And Family Can Be Very Different From Person To Person. How Often Do You Have The Opportunity To See Or Talk To People That You Care About And Feel Close To? (Ex: Talking To Friends On The Phone Or Visiting Friends Or Family Or Going To [employer] Or Club Meetings) 1 Or 2 Times Per Week [email or web address] Information not available 10/17/2020 Excessive Alcohol Or Drug Use No [email or web address] Information not available 10/17/2020 We Know From Many Of Our Patients That Covering All Of Their Costs Can Be Difficult At Times. This Can Cause Stress And Impact Health. In The Past Year, Have You Been Unable To Get Any Of The Following When It Was Really Needed? No [email or web address] Information not available 10/17/2020 What Is Your Housing Situation Today? I Have Housing [email or web address] Information not available 10/17/2020 Would You Like Help Connecting To Resources? None Information not available 10/17/2020 Marital Status Informatio n not available 10/17/2020 What Was The Date Of Your Most Recent Tobacco Screening? 02/23/2019 [email or web address] Information not available 01/20/2020 Has Tobacco Cessation Counseling Been Provided? No [email or web address] Information not available 01/20/2020 How Many Years [...] ICD10 Code Diagnosis IMO Codes Diagnosis Note [id number] TAE RAMIREZ [facility] [address] [place] [address] 02/07/2019 08:54:53 02/10/2019 15:05:36 Swelling of lower leg 452125174 R22.40 Wheezing 88276359 R06.2 resolved Chronic ob structive pulmonary disease 67544151 J44.9 Congestive heart failure 64517596 I50.9 [id number] TAE SESAY [facility] [address] [place] [address] 02/19/2019 14:54:40 02/24/2019 12:56:57 Edema of lower extremity 774698414 R60.0 [id number] JOSSE SALGADO NP [facility] [address] [place] [address] 02/23/2019 16:49:50 02/24/2019 13:23:51 Low back strain 355186281 S39.012A [id number] TAE SESAY [facility] [address] [place] [address] 10/27/2019 14:16:46 10/28/2019 10:09:40 Edema of lower extremity 654472677 R60.0 Pain in ri ght lower limb 530713259 M79.604 Tear of skin 143280051 T 14.8XXA [id number] JOSSE SALGADO NP [facility] - HOME [address] [place] [facility] [place] [address] 12/26/2019 12:57:09 12/29/2019 00:46:41 Facial laceration 616469303 S01.81XA Fall on sa me level from slipping, tripping or stumbling 453845087 W01.0XXA [id number] TAE SESAY [facility] [address] [place] [address] 01/16/2020 15:03:33 01/20/2020 13:32:20 Low back strain 804875219 S39.012A Low back pain 269926566 M54.5 [id number] Mayra Lee NP [facility] - [facility] [address] [facility] [place] [address] 08/20/2020 11:06:15 08/23/2020 10:14:53 Tear of skin 952245085 T14.8XXA [id number] Mirela Mi RN [facility] - HOME [address] [place] [address] 08/22/2020 12:46:45 08/22/2020 13:06:28 [id number] JENSEN ZARCO NP [facility] - HOME [address] [facility] [place] [address] 08/22/2020 15:02:13 08/22/2020 21:37:57 Open wound of lower leg 309092207 S81.802A [id number] TAE CLEMONS [facility] [address] [place] [place] [address] 10/17/2020 11:49:50 10/18/2020 11:22:26 Cellulitis of lower limb 888424297 L03.119 Swelling of lower leg 44 5021641 R22.40 [id number] JOSSE SALGADO NP [facility] - HOME [address] [place] [address] 10/20/2020 11:54:28 10/21/2020 12:53:21 Cellulitis of lower limb 908436960 L03.119 Exposure t o communicable disease 900537337 Z20.828 [id number] Shania Marrero, GOLDIE [facility] [address] [place] [address] 10/22/2020 11:14:08 10/24/2020 17:43:41 Wound cellulitis 168356609 L03.90 [id number] JENSENLian ZARCO NP [facility] - HOME [address] [place] [address] 02/02/2021 14:10:24 02/03/2021 13:29:29 Cellulitis of left lower limb 8845050785 5034701 L03.116 [id number] TAE KNOWLES [facility] [address] [place] [address] 02/06/2021 14:32:51 02/07/2021 12:44:05 Cellulitis of lower leg 185744931 L03.119 Deep vein thrombosis suspected 125800392 Z13.6 [id number] Mayra Lee NP [facility] - HOME [address] [place] [address] 04/03/2021 20:43:28 04/05/2021 23:52:12 Dizziness present 275203128 R42 Overview/H istory: Patient is an 85 [...] medical decision making today. Low back pain 763159656 M54.5 Unintentio nal weight gain 6499522279 07033 R63.5 [id number] Carly MCKEON NP [facility] - HOME [address] [place] [address] 08/31/2021 10:49:08 09/06/2021 16:59:08 COVID-19 224533069 U07.1 + rapid Cough 32956256 R05.9 dry cough Chronic ob structive pulmonary disease 03909759 J44.9 pending [facility] enrollment , Rx to be sent by TAE Quinones for z-geno and proair 90 mcg 2 puffs every 4-6 hours as needed for fine scattered bilateral wheezepati ent declines any current Rx for GWEN Lethargy 241983770 R53.8 3 Exposure t o SARS-CoV-2 753728106 Z20.822 reports not leaving her apartment, has friend who gets mail for her, however she did go to [facility] ED on 08/27 for abdominal pain, nausea, diarrhea.s he denies any known exposure but high risk in ED [id number] Carly MCKEON NP [facility] - [facility] [address] [place] [address] 09/02/2021 16:39:33 09/06/2021 11:49:43 COVID-19 372714056 U07.1 re-evaluat ion to monitor O2 which is 96 RAcurrentl y on day 3 of zpak Chronic ob structive pulmonary disease 95315377 J44.9 pt reports compliance with inhalers [id number] TAE Rosales [facility] [address] [place] [address] 12/08/2021 17:45:03 12/09/2021 10:11:45 Pain of toe of right foot 4374707875 92361 M79.674 Proper Personal Protective Equipment (PPE), including gloves, eye protection and masks were donned and doffed senia shields and all equipment cleaned using approved technique with germicidal disposable wipes prior to and after care of this patient according to [facility]'s infection prevention protocols. Overview/H istory: 86 Exam: [...] necrotic appearance , fevers, chest pain, sob. [id number] TAE Blancas [facility] - HOME [address] [place] [address] 02/28/2022 13:02:35 03/02/2022 12:14:09 Suspected soft tissue infection 6125074473 21876 Z20.818 Localized swelling of left lower leg 2075094792 8067027 R22.42 [id number] Yue Molina NP [facility] - HOME [address] [place] [address] 03/21/2022 15:37:31 03/24/2022 15:14:02 Wound cellulitis 445122408 L03.90 Health Concerns Section Related Observation LastModified by Organization Detai ls LastModified Time None Recorded Concern Status LastModified by Organization Details LastModified Time None Recorded Advance Directives Directive Y: Payers Insurance Date Sequence Insurance Name Policy Number Policy Anders Covered Member ID Anders Member ID Guarantor Name 02/07/2021 1 MEDICARE B-[place]: [employer] Shreya M Gravel [id number] Shreya Gravel 02/07/2021 1 *SELF PAY* Shreya Gravel [id number] Shreya Gravel 02/07/2021 2 [facility] [id number] Shreya Gravel [id number] Shreya Gravel 02/07/2021 1 MEDICARE B-[place]: [employer] Mone Gravel [id number] Shreya Gravel 02/07/2021 1 [place] [employer] Shreya M Gravel [id number] Shreya Gravel 02/07/2021 2 [place] Mone Gravel [id number] Shreya Gravel 02/07/2021 1 *SELF PAY* Mone Gravel [id number] Shreya Gravel 02/07/2021 2 [place] Mone Gravel [id number] Shreya Gravel 03/21/2022 PENDING Shreya Gravel [id number] Shreya Gravel 03/21/2022 PENDING Shreya Gravel [id number] Shreya Gravel 03/24/2022 2 [place] [id number] Shreya Gravel [id number] Shreya Gravel 03/21/2022 PENDING Shreya Gravel [id number] Shreya Gravel 03/28/2022 1 [place] [employer] Shreya M Gravel [id number] Shreya Gravel 02/07/2021 2 [place] [id number] Heather Gravel [id number] Shreya Gravel 02/07/2021 1 [place] [employer] Shreya Gravel [id number] Shreya Gravel 02/07/2021 1 [place] [employer] [place] Shreya M Gravel [id number] Shreya Gravel 02/07/2021 2 [facility] Shreya Gravel [id number] Shreya Gravel 02/07/2021 2 [facility] Shreya Gravel [id number] Shreya Gravel 02/07/2021 1 *SELF PAY* Shreya Gravel [id number] Shreya Gravel 02/07/2021 2 [facility] Shreya Gravel [id number] Shreya Gravel 04/03/2021 2 [place] [id number] Shreya Gravel [id number] Shreya Gravel 05/01/2021 1 [facility] Shreya Gravel [id number] Shreya Gravel 08/31/2021 2 [place] [id number] Shreya Gravel [id number] Shreya Gravel 09/06/2021 2 [facility] Shreya Gravel [id number] Shreya Gravel 09/02/2021 2 [place] [id number] Shreya Gravel [id number] Shreya Gravel 09/06/2021 2 [place] [id number] Shreya Gravel [id number] Shreya Gravel 12/08/2021 2 [place] [id number] Shreya Gravel [id number] Shreya Gravel 03/24/2022 2 [place] [id number] Shreya Gravel [id number] Shreya Gravel 03/21/2022 1 [place] [employer] [employer] [place] Shreya M Gravel [id number] 4 Shreya Gravel 02/07/2021 2 [place] [id number] Heather Gravel [id number] Shreya Gravel Notes Date Note Type [...] contacts. On 08/27/2021 she reports going to [facility] ED for evaluation of abdominal pain, nausea, diarrhea, and was d/c home same day with Rx for zofran in which she did not pick out hand. She reports 2 nights ago waking up in the morning with diarrhea. She denies any fevers, shortness of breath, difficulty breathing, chest pain, palpitations, dizziness, unilateral weakness, change in mental status, vision, speech, taste and or smell. Carly MCKEON NP [address], [place], [address], [place] [facility] 08/31/2021 20:14:52 09/02/2021 text/html [...] status. Carly MCKEON NP [address], [place], [address], [place] [facility] 09/02/2021 22:38:32 12/08/2021 text/html [...] no CP TAE Rosales [address], [place], [address], [place] [facility] 12/08/2021 18:26:26 02/28/2022 text/html [...] got home and had infection went to [facility] was admitted for a week, then went to [facility] for rehab. 02/08/2022 home. TAE Blancas [address], [place], [address], [place] [facility] 03/08/2022 20:04:51 03/21/2022 text/html 86 yo F with wounds to the left s/p fall in early February. She had sutures in the left leg that became infected and a smaller wound to the middleton of the right lower leg. [facility] is following her for her wounds and are in every 2 days for assessment and dressing changes. Today she states she has burning to her legs and redness to of both legs.F/u with PCP in 03/30/22. Yue Molina NP [address], [place], [address], [place] [facility] 03/21/2022 20:19:51 OBGyn Episode No OBEpisode recorded.
--- OUTSIDE RECORDS SUMMARY | 2025-09-28 08:30 | XMS_ITS | Patient Health Record ---
Author Organization [facility] Address [address] [place] [address] Care Team Providers Care Injection Molding Process Technician Name Role Phone Shelia DIAZ, Rex Primary Care Provider Unavailab sarahi Lu Holder Unavailable [phone] Allergies No Known Allergies Reason For Referral [...] Problem Information temporarily unavailable Unspecified atherosclerosis of [place] arteries of extremities, bilateral legs (I70.203) Active [...] X ray : Foot, right 2V 06/06/2012 14817-OFTNWUH NAIL, 6 OR MORE 03/27/2012 89947-CDTHPSO NAIL, 6 OR MORE 08/22/2012 37534-QHCUENQ NAIL, 6 OR MORE 06/13/2012 35695-AVWNTAL NAIL, 6 OR MORE 08/28/2011 78294-ZVZMGZV NAIL, 6 OR MORE 11/13/2011 50738-JDNLHFA NAIL, 6 OR MORE 01/18/2012 64528-MGBROXL NAIL, 6 OR MORE 11/06/2012 80472-AXKCAGJ NAIL, 6 OR MORE 02/10/2013 42669-HARXJQN NAIL, 6 OR MORE 04/14/2013 64871-ONNXDYH NAIL, 6 OR MORE 05/21/2013 65342-TZFLCJY NAIL, 6 OR MORE 07/09/2013 88341-WEVYRPT NAIL, 6 OR MORE 10/13/2013 37506-DHVCCRT NAIL, 6 OR MORE 04/23/2014 75572-KPRJHCL NAIL, 6 OR MORE 01/15/2014 24069-BHDRLYQ NAIL, 6 OR MORE 07/22/2014 08707-KXGYAPH NAIL, 6 OR MORE 10/26/2014 16026-FFTANWB NAIL, 6 OR MORE 02/11/2015 85938-NYKKJVH NAIL, 6 OR MORE 04/19/2015 92745-XZWKQTY NAIL, 6 OR MORE 07/12/2015 66518-TIZMDAT NAIL, 6 OR MORE 10/18/2015 44387-WHXXQWS NAIL, 6 OR MORE 12/20/2015 57965-HFQRJVS NAIL, 6 OR MORE 02/28/2016 17570-XDHENNP NAIL, 6 OR MORE 06/15/2016 20273-EYXSDBK NAIL, 6 OR MORE 09/12/2016 52333-WYYKVRT NAIL, 6 OR MORE 12/05/2016 60854-NBYWGUI NAIL, 6 OR MORE 02/22/2017 20675-NSGBTOE NAIL, 6 OR MORE 10/30/2017 82751-IYIDBGS NAIL, 6 OR MORE 02/04/2018 01552-KCQEFEO NAIL, 6 OR MORE 04/24/2018 43605-UWUNOUS NAIL, 6 OR MORE 07/23/2018 94458-CRBTTSI NAIL, 6 OR MORE 05/24/2017 56523-EBLDLAS NAIL, 6 OR MORE 08/06/2017 98154-ZOGBLHX NAIL, 6 OR MORE 05/29/2019 14741-BDZQLLJ NAIL, 6 OR MORE 11/11/2019 27743-NDWIARM NAIL, 6 OR MORE 03/02/2020 73756-LODAJIJ NAIL, 6 OR MORE 05/04/2020 11696-DPHQTQE NAIL, 6 OR MORE 07/08/2020 65741-CSDMNHY NAIL, 6 OR MORE 02/17/2021 27899-EQNWJVA NAIL, 6 OR MORE 06/20/2021 56727-YPYRGRG NAIL, 6 OR MORE 11/07/2021 72389-CTDOIPR NAIL, 6 OR MORE 01/16/2022 38179-PCBMJSD NAIL, 6 OR MORE 03/20/2022 56947-JVKMTXM NAIL, 6 OR MORE 06/12/2022 40234-UVXWSAS NAIL, 6 OR MORE 09/12/2022 41728-RMXXVAC NAIL, 6 OR MORE 01/22/2023 04126-RZHAILO NAIL, 6 OR MORE 05/29/2023 47493-Shom Destruction, -14 01/22/2023 12063-Ykfp Destruction, -14 07/02/2023 12091-Wcff Destruction, -14 10/16/2022 74368-Pcci Destruction, -14 06/12/2022 80611-Stsf Destruction, -14 09/12/2022 04944-Edou Destruction, -14 01/16/2022 92409-Mmgn Destruction, -14 12/19/2021 26964-Uwrj Destruction, -14 11/07/2021 21871-Cczn Destruction, -14 08/01/2021 23551-Ngrh Destruction, 10-2007/08/2020 20782-Eyum Destruction, 10-2001/11/2021 81808-Kyzk Destruction, 10-2008/23/2020 81965-Dybk Destruction, 10-2005/04/2020 46428-Mivh Destruction, 10-2003/02/2020 79377-Uotg Destruction, 10-2009/18/2019 98458-Omkm Destruction, 10-2011/11/2019 53677-Jbqz Destruction, 10-2007/15/2019 61309-Nbfa Destruction, 10-2005/29/2019 47507-Brka Destruction, 10-2007/02/2017 49885-Qsbu Destruction, 10-2007/23/2018 23981-Bwci Destruction, 10-2009/10/2018 66061-Pnkn Destruction, 10-2003/26/2017 11443-Eues Destruction, 10-2005/24/2017 34019-Nono Destruction, 10-2012/05/2016 88331-Nchm Destruction, 10-2008/01/2016 90221-Gmag Destruction, 10-2010/24/2016 12526-Sgfr Destruction, 10-2006/15/2016 25937-Zunu Destruction, 10-2004/05/2016 26150-Hccw Destruction, 10-2012/20/2015 74718-Uzfv Destruction, 10-2001/24/2016 52493-Fkvs Destruction, 10-2010/18/2015 39970-Mcgx Destruction, 10-2008/23/2015 71210-Najt Destruction, 10-2004/14/2013 53736-Oxxf Destruction, 10-2005/21/2013 01252-Frvyrtbl Plate 09/01/2013 34661-Hhwdygou Plate 07/09/2013 81586-Gkqpqtty Plate 02/10/2013 25608-Bbqshtkz Plate 12/30/2012 52584-Hrfdgugr Plate 10/26/2014 00336-Pwohmonr Plate 08/26/2014 52106-Xnvjrvsh Plate 07/22/2014 62406-Anmputse Plate 04/23/2014 47322-Bwojticf Plate 12/04/2013 26349-Afrteynf Plate 07/10/2011 27304-Vblpgmoe Plate 01/18/2012 56512-Borqrbah Plate 10/16/2011 14747-Ssyqttdd Plate 10/25/2011 46358-Hofcnnhg Plate 11/08/2011 68243-Iwpnoplu Plate 07/11/2012 11507-Xswxdwtu Plate 09/25/2012 18568-Zynvxmrh Plate 08/22/2012 12515-Edunasql Plate 03/27/2012 84255-Vffrgccn Plate 05/09/2012 76427-Nkivpimi Plate 06/13/2012 63677-Zuswmgja Plate 05/31/2015 55831-Vsjgcgsc Plate 07/12/2015 93440-Viqlimfl Plate 04/19/2015 86818-Evcgtynd Plate 02/11/2015 61985-Vlnkvtrj Plate 03/04/2014 27666-Vbpzknmh Plate 11/25/2014 63141-Vpvezboe Plate 06/15/2016 39429-Cqbsawkw Plate 03/26/2017 40817-Xkdxeaxm Plate 08/06/2017 79425-Zelrdrwe Plate 05/29/2019 08409-Vlmvoczf Plate 09/18/2019 87198-Jvfepnch Plate 07/15/2019 25378-Mrastnhn Plate 07/08/2020 90889-Zmcaxzhw Plate 01/11/2021 02011-Pmcrazlv Plate 02/17/2021 70454-Byfyvjkk Plate 03/31/2021 68645-Zphrefmm Plate 06/20/2021 52724-Ayqwvurt Plate 01/16/2022 16463-Kuiblezi Plate 11/07/2021 57184-Tjreizng Plate 04/24/2022 38836-Ohvfsytw Plate Each Additional 98290-Czkffork Plate Each Additional 10/2021 25353-Ezdovolc Plate Each Additional 09/2022 98210-Ddyoujwf Plate Each Additional 92579-Ludvsdyl Plate Each Additional 04/2021 82944-Iymwetla Plate Each Additional 11/2019 59253-Rupsazwh Plate Each Additional 37105-Hexekeqx Plate Each Additional 04/2012 59139-Fdoitsbb Plate Each Additional 12/2011 22817-Xwhzlkou Plate Each Additional 17816-Ooywnavw Plate Each Additional 04/2013 00438- Debride <25 sq cm 02/10/2013 71245- Debride <25 sq cm 12/30/2012 03880- Debride <25 sq cm 11/06/2012 13583- Debride <25 sq cm 05/21/2013 13123- Debride <25 sq cm 04/14/2013 51318- Debride <25 sq cm 12/04/2013 97928- Debride <25 sq cm 04/23/2014 70371- Debride <25 sq cm 05/27/2014 62795- Debride <25 sq cm 07/22/2014 47124- Debride <25 sq cm 08/26/2014 89507- Debride <25 sq cm 10/26/2014 17878- Debride <25 sq cm 06/06/2012 82410- Debride <25 sq cm 03/27/2012 08996- Debride <25 sq cm 06/13/2012 26772- Debride <25 sq cm 08/22/2012 09814- Debride <25 sq cm 09/25/2012 80738- Debride <25 sq cm 08/28/2011 76815- Debride <25 sq cm 07/10/2011 09015- Debride <25 sq cm 02/15/2012 37390- Debride <25 sq cm 12/20/2011 59669- Debride <25 sq cm 11/25/2014 17306- Debride <25 sq cm 01/04/2015 59043- Debride <25 sq cm 02/11/2015 13531- Debride <25 sq cm 03/15/2015 58962- Debride <25 sq cm 04/19/2015 48440- Debride <25 sq cm 07/12/2015 61871- Debride <25 sq cm 01/18/2017 95928- Debride <25 sq cm 09/12/2016 90796- Debride <25 sq cm 05/04/2020 50419- Debride <25 sq cm 01/11/2021 67109- Debride <25 sq cm 10/30/2017 93097- Debride <25 sq cm 07/02/2017 85526- Debride <25 sq cm 09/10/2018 10094- Debride <25 sq cm 05/29/2019 53980- Debride <25 sq cm 02/17/2021 49588- Debride <25 sq cm 03/31/2021 71280- Debride <25 sq cm 06/20/2021 80029- Debride <25 sq cm 11/07/2021 32822- Debride <25 sq cm 08/01/2021 63128- Debride <25 sq cm 11/28/2021 15982- Debride <25 sq cm 06/12/2022 17023- Debride <25 sq cm 04/24/2022 53421- Debride <25 sq cm 03/20/2022 67042- Debride <25 sq cm 09/12/2022 25611- Debride <25 sq cm 11/13/2022 51522- Debride <25 sq cm 01/22/2023 96141- Debride <25 sq cm 10/16/2022 56963- Debride <25 sq cm 07/02/2023 27000-ZGVRQKI SKIN/TISSUE 05/22/2024 77320-TXGZJCR SKIN/TISSUE 01/15/2014 43988-TYNMUJE SKIN/TISSUE 03/04/2014 72758 I&D ABSCESS- SIMPLE,SINGLE 012 31458 I&D ABSCESS- SIMPLE,SINGLE 013 97730-MJBP SKIN LESIONS, 2 TO 4 05/22/20 24 52708- Removal of Foreign Body, Subcut 1 87724-[place] Benign Lesion 0.5cm 11/08 87546-Xutoafbr Benign Lesion 0.5cm 10/25- Ganglion Cyst Injection/Aspiratio n 01/18/2012- Ganglion Cyst Injection/Aspiratio n 07/02/2017 Future Test Test Name Order Date 57911-Udtejbpu Plate Each Additional Insurance Providers Payer Name Payer Address Payer Phone Subscriber Number Group Number Insured Name Patient Relationship to Insured Coverage Start Date Coverage End Date Medicare National [employer] [address] [place] [address] [id number] Shreya Calvert Self - patient is the insured 1 [employer] [address] [place] [address] [id number] Shreya Calvert Self - patient is the [...] Rehab 05/2024 [facility], rehab- leg swelling 05/2023 [facility] fell down 02/2023 [facility] ran over by scooter 02/2023 [facility] heart issues 08/2022 [facility] Cellulitis 07/2022 [facility] heart issues 03/2022 [facility]- cellulitis, day stay, 3 week therap y 01/2022 [facility], rehab- fell 05/2021 [facility] for cellulitis for 5 days 9 [facility] fall 05/05/18 [facility], tripped bumped head 08/2015 Admitted to [facility] overnight;GERD 03/2015 [facility] - Emergency 11/23/14 & 11/24 Dehydration 11/2011
[2025-09-28 08:35] LABS: Appearance Urine Cloudy; Glucose Urine UA Negative (Negative); PH 5.5 (5.0-9.0); Specific Gravity - Urine 1.020 (1.005-1.025); UMIC TRIGGER UA YES
== END 2025-09-28 08:22 | disposition home or self-care (01) ==
LOC: HO.MMNH3L 08:21
PROVIDERS: Visit Provider Physician Assistant Medical
DX: Z03.89 Encounter for observation for other suspected diseases and conditions ruled out (principal)
CPT/HCPCS: 81001; 87086

== ENCOUNTER 2025-10-05 15:43 | Outpatient (REF) | payer MEDICARE, MEDICAID, SELFPAY ==
--- OUTSIDE RECORDS SUMMARY | 2025-10-05 18:55 | XMS_ITS | Clinical Summary ---
Author Organization [address] [facility] Address [address] [place] [address] Phone Care Team Providers Care Occupational Safety Specialist Name Role Phone Rex Bass MD Primary Care Provider [phone] Allergies Active Allergy Reactions Criticality Noted Date [...] Compression fracture of L1 l umbar vertebra ([facility] V24, [facility] V28) DX:Compression fra cture of L1 lumbar vertebra ([facility]); COMMENT: and t12 vertebra Degeneration macular DX:Degenera tion macular Depression DX:Depression Diabetes type 2, controlled ([facility] V24, [facility] V28) DX:Diabetes type 2, controll ed ([facility]) Diverticulitis DX:Diverticuliti s Elevated LFTs [...] [facility] DX:Primary hyperparathyroidi sm ([facility]) Recurrent falls DX:Recurrent fal ls [...] age to complete this topic Insurance [facility] MEDICAID - [place] MEDICARE Advance Directives Documents on File Type Date Recorded Patient Radio Recorder Expl anation Health Care Decision (hx) 09/26/2023 AD FARNSWORTH DIRECTIVE Health Care Decision (hx) 05/09/2021 AD FARNSWORTH DIRECTIVE Health Care Decision (hx) 05/09/2021 AD FARNSWORTH DIRECTIVE Care Teams Occupational Safety Specialist Relationship Specialty Start Date End Date Rex Bass MD [address] [place] [address] [address] [place], [address] PCP - General 04/23/24
--- OUTSIDE RECORDS SUMMARY | 2025-10-05 18:55 | XMS_ITS | Data Portability ---
Author Organization [place] [facility] Address [address] [place] [address] Care Team Providers Care Belt Knife Feeder Name Role Phone ABAD ISLAS Primary Care Provider [phone] [facility]NA[facility] OTHER [phone] Assessment Encounter Date Assessment Date Assessment LastModified [...] after care of this patient according to [facility]'s infection prevention protocols. Not available 08/31/2021 [...] after care of this patient according to [facility]'s infection prevention protocols. Not available 09/02/2021 22:38:16 03/21/2022 03/21/2022 Overview/History : 86 yo F established with new to this provider presents for evaluation of wounds to both lower legs s/p fall in February. The left wound failed to close with sutures and she developed an infection as well. She is followed by [facility] for wound care of both legs. She has developed burning pain with and redness to both wounds worse on the left. [facility] is coming in every two [...] left extremity that is consistent with cellulitis. [facility] is in every 2 [...] after care of this patient according to [facility]'s infection prevention protocols. [email or web address] Not available 03/21/2022 20:18:44 Plan of Treatment Reminders Order Date Submit Date Provider Last Modified By Organization Details Last Modified Time Details Appointments None recorded. Lab rapid SARS CoV + SARS CoV 2 Ag, QL IA, respiratory specimen 2020 021 [email or web address] 3 [facility], [address] [place] [address], [address], 11:23:08 Referral None recorded. Procedures None recorded. Surgeries None recorded. Imaging US, duplex, venous, extremity, limited - swelling of left lower extremity, s/p fall and wound to left lower extremity r/o DVT pt is homebound,d oes not drive 2021 022 [email or web address] [facility] ([facility]), [address] [place], [address], 2 18:21:15 XR, foot, 3 or more view - r/o right 2nd toe fracture. call pt @ [phone] 2021 022 [email or web address] [facility]ly [facility] Corporate Office ([facility] [address] [place], [address], 2 10:17:17 XR, chest, 2 view 2020 021 [email or web address] [facility] ([facility]), [address] [place], [address], 16:59:08 Medication Orders cephalexin 500 mg capsule 2021 022 [email or web address] [id number], [address] [place], [address], 16:20:51 cephalexin 500 mg capsule 2021 022 MAGDY [id number], [address] [place], [address], 16:21:00 cephalexin 500 mg capsule 2021 022 [email or web address] [facility][id number], [address] [place], [address], 15:51:19 azithromyci n 250 mg tablet 2020 021 [email or web address] 0 [facility] #[id number], [address] [place], [address], 13:35:29 Patient TargetsNo targets recorded. Patient Instructions Encounter Date Encounter Id Patient Instructions Last Modified By Organization Details Last Modified Time 08/31/2021 [id number] What is coronavi ethel disease 2019? Coronavirus disease 2019 (COVID-19) is a respiratory illness that can spread from person to person. The virus that causes COVID-19 is a novel coronavirus that was first identified during an investigation into an outbreak in [facility]. Can I get COVID-19? Yes. [...] least 20 seconds. Use an alcohol-based hand unit manager that contains at least 60% alcohol if [...] (EUA). The EUA is supported by the Property Utilization Manager of Health and Human Service s (HHS [...] or worsen. Not available 08/31/2021 20:06:42 09/02/2021 [id number] [facility] you [facility] yo [facility]. We cannot always find the [...] condition between 8am-10pm, please call [facility] at [phone] to help navigate your care. juan pablo Not available 09/02/2021 22:29:43 12/08/2021 [id number] Thank you for yo ur visit with [facility] today. We cannot always find the exact [...] in your condition between 8am-10pm, please call [facility] at [phone] to help navigate your care. Thank you for your visit with [facility] today. You do not appear to have [...] in your condition between 8am-10pm, please call [facility] at [phone] to help navigate your care. [email or web address] Not available 12/08/2021 17:46:11 03/21/2022 [id number] Thank you for yo ur visit with [facility] today. You may have had laboratory tests [...] condition between 8am-10pm, [facility] at [phone] to help navigate your care. [email or web address] Not available 03/21/2022 17:19:04 Reason for Referral None Reported. Results Created Date Observation Date Name Description Value Unit Range Abnormal Flag Note LastModifiedBy Organization Detail LastModifiedTime 08/31/20 21 08/31/2021 rapid SARS CoV + SARS CoV 2 Ag, QL IA, respi rator y speci men Covid-19 (ref: neg) positi ve Not Available Spr - Home [address] [place], [address], 08/31/2021 11:22:25 08/31/20 21 08/31/2021 rapid SARS CoV + SARS CoV 2 Ag, QL IA, respi rator y speci men Control Visual ized/V alid Not Available [facility] - [facility] [address] [place], [address], 08/31/2021 11:22:25 08/31/20 21 08/31/2021 rapid SARS CoV + SARS CoV 2 Ag, QL IA, respi rator y speci men Location SPR, [facility] Saida canas s , [address] [place] [address], [id number] Not Available [facility] - Home [address] [place], [address], 08/31/2021 11:22:25 08/31/20 21 08/31/2021 rapid SARS CoV + SARS CoV 2 Ag, QL IA, respi rator y speci men Race & Ethnicity Other White Not Available [facility] - Home [address] [place], [address], 08/31/2021 11:22:25 08/31/20 21 08/31/2021 rapid SARS CoV + SARS CoV 2 Ag, QL IA, respi rator y speci men Language Englis h Not Available Spr - Home [address], [place], [address], 08/31/2021 11:22:25 09/01/20 21 XR, chest , 2 view No observ ation record ed. [email or web address] ([facility] [employer]) [address] [facility], [place], [address], 09/02/2021 18:27:35 03/02/20 22 03/02/2022 venou s [...] MIRAMONTES M.D. 022 6:10:3 5 PM EDT. [email or web address] [place] [address] [facility] [address], [place], [address], 03/04/2022 22:42:26 Result Notes None recorded. Problems Name Problem SNOMED Code Status Onset Date Resolution Date Notes Provider Name and Address Organization Details Recorded Time Hypertensive disorder 98301207 Active 2018 [place], [place] [facility] 17:08:43 Hypertensive disorder 45148570 Active 2019 [place], [place] [facility] 17:08:43 Problem Notes None recorded. Procedures Surgical History Date Name Laterality Status Provider Name and Address Organization Details Recorded Time 021 Medication Review completed Shania Marrero NP [address] [place], [address], [place] [facility] 10/22/2020 12:08:57 021 IV Start Procedure - completed JOSSE SALGADO NP [address] [place], [address], [place] [facility] 10/20/2020 12:39:22 020 Venipuncture - completed TAE SESAY [address] [place], [address], [place] [facility] 10/27/2019 23:49:05 cholecystectomy completed Carly DUBON NP [address] [place], [address], [place] [facility] 08/31/2021 11:12:48 hysterectomy completed Carly MCKEON NP [address] [place], [address], [place] [facility] 08/31/2021 11:12:58 Cabg vein four completed Carly MCKEON NP [address] [place], [address], [place] [facility] 08/31/2021 11:13:24 Imaging Results [...] completed Not Available Not Available Not Available [employer] Ultra Test strips TESTS DAILY FOR DM, [...] /min 96.7 [degF] 112/60 mm[Hg] Not Available [facility] 2 13:37:22 Date Recorded Oxygen saturation Respiratory rate Heart rate Body temperature Systolic And Diastolic Provider Name and Address Organization Details Last Updated DateTime 2 97 % 16 /min 71 /min 98.5 [degF] 116/68 mm[Hg] Not Available [facility] 2 15:55:18 Date Recorded Body temperature Oxygen saturation Heart rate Respiratory rate Systolic And Diastolic Provider Name and Address Organization Details Last Updated DateTime 1 97.5 [degF] 95 % 71 /min 20 /min 130/68 mm[Hg] Not Available [facility] 1 11:02:38 Date Recorded Oxygen saturation Respiratory rate Body temperature Heart rate Systolic And Diastolic Provider Name and Address Organization Details Last Updated DateTime 1 96 % 22 /min 98.6 [degF] 68 /min 124/78 mm[Hg] Not Available [facility] 1 16:52:24 Social History Question Answer Notes LastModified by Organizat ion Details LastModified Time Tobacco Smoking Status Former Smoker JOSSE SALGADO, GOLDIE [address] [place], [address], [place] [facility] 12/26/2019 13:07:15 Do You Have An Advance Directive? Yes Information not available 12/26/2019 What Is Your Code Status? Full Code Information not available 12/26/2019 Drugs Abused None Information not available 10/17/2020 How Many Days In The Past Year Have You Had A Heavy Drinking Consumption (4+ Female, 5+ Male)? 0 [email or web address] Information not available 10/17/2020 Within The Past 12 Months, Has It Happened That The Food You Bought Just Didn't Last And You Didn't Have Money To Get More. No [email or web address] Information not available 10/17/2020 Within The Past 12 Months, Have You Worried That Your Food Would Run Out Before You Got Money To Buy More. No [email or web address] Information not available 10/17/2020 Fall Risk: Do [...] Visiting Friends Or Family Or Going To [employer] Or Club Meetings) 1 Or 2 Times Per Week [email or web address] Information not available 10/17/2020 Excessive Alcohol Or Drug Use No [email or web address] Information not available 10/17/2020 We Know From Many Of Our Patients That Covering All Of Their Costs Can Be Difficult At Times. This Can Cause Stress And Impact Health. In The Past Year, Have You Been Unable To Get Any Of The Following When It Was Really Needed? No [email or web address] Information not available 10/17/2020 What Is Your Housing Situation Today? I Have Housing Information not available 10/17/2020 Would You Like Help Connecting To Resources? None [email or web address] Information not available 10/17/2020 Marital Status [email or web address] Informatio n not available 10/17/2020 What Was The Date Of Your Most Recent Tobacco Screening? 02/23/2019 [email or web address] Information not available 01/20/2020 Has Tobacco Cessation Counseling Been Provided? No [email or web address] Information not available 01/20/2020 How Many Years [...] N Stroke N Dementia N Hypothyroidism N COPD Y Asthma Y Depression Y High Cholesterol Y Rheumatoid Arthritis N Pulmonary Embolism N Hypertension Y A-fib N Osteoporosis Y Kidney Disease N Gynecological HistoryNo gynecological history recorded. Obstetrics History GPAL:G 0 P 0 0 0 0 Past Encounters Encounter ID Performer Location Encounter Start Date Encounter Closed Date Diagnosis/Indication Diagnosis SNOMED-CT Code Diagnosis ICD10 Code Diagnosis IMO Codes Diagnosis Note [id number] TAE RAMIREZ [facility] [address] [place] [address] 02/07/2019 08:54:53 02/10/2019 15:05:36 Swelling of lower leg 000576479 R22.40 Wheezing 60224910 R06.2 resolved Chronic ob structive pulmonary disease 44755731 J44.9 Congestive heart failure 77026867 I50.9 [id number] TAE SESAY [facility] [address] [place] [address] 02/19/2019 14:54:40 02/24/2019 12:56:57 Edema of lower extremity 048882438 R60.0 [id number] JOSSE SALGADO NP [facility] [address] [place] [address] 02/23/2019 16:49:50 02/24/2019 13:23:51 Low back strain 431564991 S39.012A [id number] TAE SESAY [facility] [address] [place] [address] 10/27/2019 14:16:46 10/28/2019 10:09:40 Edema of lower extremity 743177725 R60.0 Pain in ri ght lower limb 792013688 M79.604 Tear of skin 063817818 T 14.8XXA [id number] JOSSE SALGADO NP [facility] [address] [facility] [place] [address] 12/26/2019 12:57:09 12/29/2019 00:46:41 Facial laceration 394373951 S01.81XA Fall on sa me level from slipping, tripping or stumbling 208695227 W01.0XXA [id number] TAE SESAY [facility] [address] [place] [address] 01/16/2020 15:03:33 01/20/2020 13:32:20 Low back strain 767407832 S39.012A Low back pain 080128363 M54.5 [id number] Mayra Lee NP [facility] [address] [facility] [place] [address] 08/20/2020 11:06:15 08/23/2020 10:14:53 Tear of skin 554574538 T14.8XXA [id number] Mirela Mi RN [facility] [address] [place] [address] 08/22/2020 12:46:45 08/22/2020 13:06:28 [id number] JENSEN ZARCO NP [facility] [address] [facility] [place] [address] 08/22/2020 15:02:13 08/22/2020 21:37:57 Open wound of lower leg 883291742 S81.802A [id number] TAE CLEMONS [facility] [address] [place] [address] 10/17/2020 11:49:50 10/18/2020 11:22:26 Cellulitis of lower limb 930606707 L03.119 Swelling of lower leg 44 9967725 R22.40 [id number] JOSSE SALGADO NP [facility] [address] [place] [address] 10/20/2020 11:54:28 10/21/2020 12:53:21 Cellulitis of lower limb 324097059 L03.119 Exposure t o communicable disease 983014275 Z20.828 [id number] Shania Marrero, GOLDIE [facility] [address] [place] [address] 10/22/2020 11:14:08 10/24/2020 17:43:41 Wound cellulitis 661073452 L03.90 [id number] JENSENLian ZARCO NP [facility] [address] [place] [address] 02/02/2021 14:10:24 02/03/2021 13:29:29 Cellulitis of left lower limb 7711255971 5515010 L03.116 [id number] TAE KNOWLES [facility] [address] [place] [address] 02/06/2021 14:32:51 02/07/2021 12:44:05 Cellulitis of lower leg 431281964 L03.119 Deep vein thrombosis suspected 507886741 Z13.6 [id number] Mayra Lee NP [facility] - HOME [address] [place] [address] 04/03/2021 20:43:28 04/05/2021 23:52:12 Dizziness present 546440127 R42 Overview/H istory: Patient is an 85 [...] medical decision making today. Low back pain 283866645 M54.5 Unintentio nal weight gain 2742150296 42101 R63.5 [id number] Carly MCKEON NP [facility] [address] [place] [address] 08/31/2021 10:49:08 09/06/2021 16:59:08 COVID-19 304393143 U07.1 + rapid Cough 67204857 R05.9 dry cough Chronic ob structive pulmonary disease 95774998 J44.9 pending [facility] enrollment , Rx to be sent by TAE Quinones for z-geno and proair 90 mcg 2 puffs every 4-6 hours as needed for fine scattered bilateral wheezepati ent declines any current Rx for GWEN Lethargy 873492530 R53.8 3 Exposure t o SARS-CoV-2 340368504 Z20.822 reports not leaving her apartment, has friend who gets mail for her, however she did go to [facility] ED on 08/27 for abdominal pain, nausea, diarrhea.s he denies any known exposure but high risk in ED [id number] Carly MCKEON NP [facility] [address] [place] [address] 09/02/2021 16:39:33 09/06/2021 11:49:43 COVID-19 258808606 U07.1 re-evaluat ion to monitor O2 which is 96 RAcurrentl y on day 3 of zpak Chronic ob structive pulmonary disease 56465588 J44.9 pt reports compliance with inhalers [id number] TAE Rosales [facility] [address] [place] [address] 12/08/2021 17:45:03 12/09/2021 10:11:45 Pain of toe of right foot 2814019213 73190 M79.674 Proper Personal Protective Equipment (PPE), including [...] necrotic appearance , fevers, chest pain, sob. [id number] TAE Blancas [facility] [address] [place] [address] 02/28/2022 13:02:35 03/02/2022 12:14:09 Suspected soft tissue infection 0055176393 04990 Z20.818 Localized swelling of left lower leg 7476609636 8774737 R22.42 [id number] Yue Molina NP [facility] [address] [place] [address] 03/21/2022 15:37:31 03/24/2022 15:14:02 Wound cellulitis 304781203 L03.90 Health Concerns Section Related Observation LastModified by Organization Detai ls LastModified Time None Recorded Concern Status LastModified by Organization Details LastModified Time None Recorded Advance Directives Directive Y: Payers Insurance Date Sequence Insurance Name Policy Number Policy Anders Covered Member ID Anders Member ID Guarantor Name 02/07/2021 1 [place] [employer]ATIONAL [employer] Shreya M Gravel [id number] Shreya Gravel 02/07/2021 1 *SELF PAY* Shreya Gravel [id number] Shreya Gravel 02/07/2021 2 [facility] [id number] Shreya Gravel [id number] Shreya Gravel 02/07/2021 1 [place] NATIONAL e[employer] SERVICES Mone Gravel [id number] Shreya Gravel 02/07/2021 1 [place] Shreya M Gravel [id number] Shreya Gravel 02/07/2021 2 [place] Mone Gravel [id number] Shreya Gravel 02/07/2021 1 *SELF PAY* Mone Gravel [id number] Shreya Gravel 02/07/2021 2 [place] Mone Gravel [id number] Shreya Gravel 03/21/2022 PENDING Shreya Gravel [id number] Shreya Gravel 03/21/2022 PENDING Shreya Gravel [id number] Shreya Gravel 03/24/2022 2 [place] [id number] Shreya Gravel [id number] Shreya Gravel 03/21/2022 PENDING Shreya Gravel [id number] Shreya Gravel 03/28/2022 1 [place] Shreya M Gravel [id number] Shreya Gravel 02/07/2021 2 [place] [id number] Heather Gravel [id number] Shreya Gravel 02/07/2021 1 [place] Shreya Gravel [id number] Shreya Gravel 02/07/2021 1 [place] Shreya M Gravel [id number] Shreya Gravel 02/07/2021 2 [facility] Shreya Gravel [id number] Shreya Gravel 02/07/2021 2 [facility] Shreya Gravel [id number] Shreya Gravel 02/07/2021 1 *SELF PAY* Shreya Gravel [id number] Shreya Gravel 02/07/2021 2 [facility] Shreya Gravel [id number] Shreya Gravel 04/03/2021 2 [place] [id number] Shreya Gravel [id number] Shreya Gravel 05/01/2021 1 [facility] Shreya Gravel [id number] Shreya Gravel 08/31/2021 2 [place] [id number] Shreya Gravel [id number] Shreya Gravel 09/06/2021 2 [facility] Shreya Gravel [id number] Shreya Gravel 09/02/2021 2 [place] [id number] Shreya Gravel [id number] Shreya Gravel 09/06/2021 2 [place] [id number] Shreya Gravel [id number] Shreya Gravel 12/08/2021 2 [place] [id number] Shreya Gravel [id number] Shreya Gravel 03/24/2022 2 [place] [id number] Shreya Gravel [id number] Shreya Gravel 03/21/2022 1 [place] Shreya M Gravel [id number] Shreya Gravel 02/07/2021 2 [place] [id number] Heather Gravel [id number] Shreya Gravel Notes Date Note Type [...] contacts. 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 She reports 2 nights ago waking up in the morning with diarrhea. She denies any fevers, shortness of breath, difficulty breathing, chest pain, palpitations, dizziness, unilateral weakness, change in mental status, vision, speech, taste and or smell. Carly MCKEON NP [address], [place], [address], [place] [facility] 08/31/2021 20:14:52 09/02/2021 text/html [...] status. Carly MCKEON NP [address], [place], [address], [place] [facility] 09/02/2021 22:38:32 12/08/2021 text/html [...] no CP TAE Rosales [address], [place], [address], [place] [facility] 12/08/2021 18:26:26 02/28/2022 text/html [...] got home and had infection went to [facility] was admitted for a week, then went to [facility] for rehab. 02/08/2022 home. TAE Blancas [address], [place], [address], [place] [facility] 03/08/2022 20:04:51 03/21/2022 text/html 86 yo F with wounds to the left s/p fall in early February. She had sutures in the left leg that became infected and a smaller wound to the midd[place] of the right lower leg. [facility] is following her for her wounds and are in every 2 days for assessment and dressing changes. Today she states she has burning to her legs and redness to of both legs.F/u with PCP in 03/30/22. Yue Molina NP [address], [place], [address], [place] [facility] 03/21/2022 20:19:51 OBGyn Episode No OBEpisode recorded.
--- OUTSIDE RECORDS SUMMARY | 2025-10-05 18:55 | XMS_ITS | Data Portability ---
Author Organization [facility] Pain Managem ent, PAIN OFFICE Address [address] [place] [address] Care Team Providers [employer] Director Name Role Phone ABAD GONSALES Primary Care Provider GUILHERME DIAZ Referring Provider [phone] Assessment Encounter Date Assessment Date Assessment LastModified [...] By Organization Details Last Modified Time 06/26/2021 [id number] She was advised against bed rest lasting longer than four days and to continue activities as tolerated. [email or web address] Not available 06/30/2021 10:01:24 07/11/2021 [id number] She was advised to continue with activities as tolerated [email or web address] Not available 07/11/2021 13:35:39 10/04/2021 [id number] She was advised to continue with activities as tolerated [email or web address] Not available 10/04/2021 11:55:19 12/12/2021 [id number] She was advised to continue with activities as tolerated [email or web address] Not available 12/12/2021 12:09:37 08/21/2022 [id number] She was advised to continue with activities as tolerated [email or web address] Not available 08/21/2022 10:34:48 Reason for Referral None Reported. Problems Name Problem SNOMED Code Status Onset Date Resolution Date Notes Provider Name and Address Organization Details Recorded Time Post-herpetic neuritis [id number] Gris adams MD [address] [place] [address] , [address], [facility] [place], [address] [facility] [place] [facility] 9 14:56:27 Inflammation of joint of shoulder region [id number] Gris adams, MD [address] , [address], [place], [address], [place] [facility] 9 09:39:04 Spinal stenosis of lumbar region 99791616 Active 2016 Alf adams MD [address] , [address], [place], [address], [place] [facility] 7 10:55:25 Lumbosacral spondylosis without myelopathy 19537922 Active 2016 Alf adams MD [address] , [address], [place], [address], [place] [facility] 7 10:55:26 Lumbosacral radiculitis 82432431 Active 2016 Alf adams MD [address] , [address], [place], [address], [place] [facility] 7 10:55:27 Displacement of lumbar intervertebral disc without myelopathy 80864626 Active 2016 Alf adams MD [address] , [address], [place], [address], [place] [facility] 7 10:55:30 Problem Notes None recorded. Procedures Surgical History Date Name Laterality Status Provider Name and Address Organization Details Recorded Time 08/21/20 22 Lumbar Epidural steroid injection under fluoroscopic guidance completed Alf Posada MD [address] , [address], [place], [address], [place] [facility] 08/21/2022 10:36:53 12/13/19 22 Lumbar Epidural steroid injection under fluoroscopic guidance completed Alf Posada MD [address] , [address], [place], [address], [place] [facility] 12/12/2021 12:09:46 10/04/20 21 Lumbar Epidural steroid injection under fluoroscopic guidance completed Alf oPsada MD [address] , [address], [place], [address], [place] [facility] 10/04/2021 11:55:59 07/11/20 21 Lumbar Epidural steroid injection under fluoroscopic guidance completed Alf Posada MD [address] , [address], [place], [address], [place] [facility] 07/11/2021 13:35:45 04/11/20 21 Lumbar Epidural steroid injection under fluoroscopic guidance completed Alf Posada MD [address] , [address], [place], [address], [place] [facility] 04/11/2021 13:56:00 01/11/20 21 Lumbar Epidural steroid injection under fluoroscopic guidance completed Alf Posada MD [address] , [address], [place], [address], [place] [facility] 01/12/2021 09:57:53 09/06/20 20 Lumbar Epidural steroid injection under fluoroscopic guidance completed Alf Posada MD [address] , [address], [place], [address], [place] [facility] 09/08/2020 14:56:36 06/15/20 20 Lumbar Epidural steroid injection under fluoroscopic guidance completed Alf Posada MD [address] , [address], [place], [address], [place] [facility] 06/15/2020 14:00:13 05/23/20 20 Intra-articular shoulder steroid injection under ultrasound guidance completed Alf Posada MD [address] , [address], [place], [address], [place] [facility] 05/23/2020 15:11:49 05/11/20 19 Intra-articular shoulder steroid injection under ultrasound guidance completed Alf Posada MD [address] , [address], [place], [address], [place] [facility] 05/11/2019 09:43:25 03/31/20 19 Lumbar Epidural steroid injection under fluoroscopic guidance completed Alf Posada MD [address] , [address], [place], [address], [place] [facility] 03/31/2019 18:50:07 01/08/20 19 Fluoroscopic Guided Lumbar Facet Steroid Injections of levels completed Alf Posada MD [address] , [address], [place], [address], [place] [facility] 01/08/2019 15:03:53 09/17/20 17 Fluoroscopic Guided Lumbar Facet Steroid Injections of levels completed Alf Posada MD [address] , [address], [place], [address], [place] [facility] 09/17/2017 10:08:58 08/07/20 17 Fluoroscopic Guided Lumbar Facet Steroid Injections of levels completed Alf Posada MD [address] , [address], [place], [address], [place] [facility] 08/07/2017 10:36:11 05/08/20 17 Lumbar Epidural steroid injection under fluoroscopic guidance completed Alf Posada MD [address] [facility] , [address], [place], [address], [place] [facility] 05/08/2017 10:54:37 Joint Replacement completed Fayechris Sotoer [place] [facility] 03/14/2017 14:36:04 Cholecystectomy completed Fayechris Sotoer [place] [facility] 03/14/2017 14:36:22 Back Surgery completed Alf Posada MD [address] , [address], [place], [address], [place] [facility] 04/02/2017 [...] completed Not Available Not Available Not Available [employer] [employer] On Demand Ultra Test strips TESTS DAILY FOR DM, [...] Not Available No t Available Fluzone High-Dose 0120-5686 (PF) 180 mcg/0.5 mL intramuscul ar syringe TO BE ADMINISTE RED BY PHARMACIS T FOR IMMUNIZAT ION 08/07 completed Not Available Not Available Not Available Fluzone High-Dose 9955-6938 (PF) 180 mcg/0.5 mL intramuscul ar syringe [...] Last Updated DateTime 160.02 cm 34.7 kg/m2 05326.1 g 58 /min 98 % 6 144/56 mm[Hg] Alf adams MD [address] [facility] , [address], [place], [address], [place] [facility] 15:24:19 [...] Smoker Quit x 20 years Not Available [facility] 07/22/2020 03:16:10 Which Illicit Or Recreational Drugs Have You Used? NO [id number] Information not available 07/22/2020 Education 12 With Some College Information not available 03/14/2017 Live Alone Or With Others? Alone Information not available 03/14/2017 Marital Status [email or web address] Informatio n not available 03/14/2017 What Was The Date Of Your Most Recent Tobacco Screening? 03/31/2019 [id number] Information not available 07/22/2020 How Many Years Have You Smoked Tobacco? 20 [id number] Information not available 07/22/2020 Sex: Unknown Functional Status Question Answer Note LastModified by Organization D etails LastModified Time What is your level of alcohol consumption? Moderate [id number] Information not available 07/22/2020 Are you currently employed? No [id number] Information not available 07/22/2020 Mental Status None [...] ICD10 Code Diagnosis IMO Codes Diagnosis Note [id number] Alf Posada MD PAIN OFFICE [address] [place] [address] 03/14/2017 13:22:16 03/14/2017 15:44:04 Spinal stenosis of lumbar region 01172160 M48.06 Lumbosacra l spondylosis without myelopathy 09827816 M47.817 Lumbosacra l radiculitis 94357581 M54.17 Displaceme nt of lumbar intervertebral disc without myelopathy 68292822 M51.26 [id number] Alf Posada MD PAIN OFFICE [address] [place] [address] 05/08/2017 09:51:37 05/09/2017 14:08:37 Spinal stenosis of lumbar region 25476470 M48.06 Lumbosacra l spondylosis without myelopathy 99481432 M47.817 Lumbosacra l radiculitis 56006676 M54.17 Displaceme nt of lumbar intervertebral disc without myelopathy 08842075 M51.26 [id number] Alf Posada MD PAIN OFFICE [address] [facility] [place] [address] 06/14/2017 10:36:32 06/17/2017 09:50:43 Spinal stenosis of lumbar region 46883030 M48.06 Lumbosacra l spondylosis without myelopathy 92913659 M47.817 Lumbosacra l radiculitis 66489639 M54.17 Displaceme nt of lumbar intervertebral disc without myelopathy 81128562 M51.26 40515 Alf Posada MD SV PAIN OFFICE [address] [facility] [place] [address] 08/07/2017 10:01:00 08/07/2017 15:19:24 Spinal stenosis of lumbar region 81867451 M48.062 Lumbosacra l spondylosis without myelopathy 03172345 M47.817 Lumbosacra l radiculitis 19667612 M54.17 Displaceme nt of lumbar intervertebral disc without myelopathy 00362063 M51.26 85455 Alf Posada MD PAIN OFFICE [address] [facility] [place] [address] 09/05/2017 10:11:57 09/05/2017 19:46:07 Spinal stenosis of lumbar region 23880354 M48.062 Lumbosacra l spondylosis without myelopathy 60706535 M47.817 Lumbosacra l radiculitis 47788008 M54.17 Displaceme nt of lumbar intervertebral disc without myelopathy 52516801 M51.26 40137 Alf Posada MD PAIN OFFICE [address] [place] [address] 09/17/2017 09:13:54 09/19/2017 09:09:31 Spinal stenosis of lumbar region 86502766 M48.062 Lumbosacra l spondylosis without myelopathy 85549617 M47.817 Lumbosacra l radiculitis 68745483 M54.17 Displaceme nt of lumbar intervertebral disc without myelopathy 58318115 M51.26 01322 Alf Posada MD PAIN OFFICE [address] [facility] [place] [address] 12/25/2018 11:24:23 12/25/2018 16:12:18 Spinal stenosis of lumbar region 77211798 M48.061 Lumbosacra l spondylosis without myelopathy 07342974 M47.817 Lumbosacra l radiculitis 52261885 M54.17 Displaceme nt of lumbar intervertebral disc without myelopathy 48642567 M51.26 97850 Alf Posada MD PAIN OFFICE [address] [place] [address] 01/07/2019 09:10:35 01/08/2019 15:11:02 Spinal stenosis of lumbar region 17076827 M48.062 Lumbosacra l spondylosis without myelopathy 33165929 M47.817 Lumbosacra l radiculitis 04040881 M54.17 Displaceme nt of lumbar intervertebral disc without myelopathy 26676860 M51.26 20591 Alf Posada MD PAIN OFFICE [address] [facility] [place] [address] 02/04/2019 14:13:14 02/04/2019 16:10:53 Post-herpetic neuritis 586642640 B02.29 Spinal linda nosis of lumbar region 10101661 M48.061 Lumbosacra l spondylosis without myelopathy 70634913 M47.817 Lumbosacra l radiculitis 15701209 M54.17 Displaceme nt of lumbar intervertebral disc without myelopathy 74393198 M51.26 33940 Alf Posada MD PAIN OFFICE [address] [facility] [place] [address] 03/31/2019 09:49:03 03/31/2019 18:56:55 Spinal stenosis of lumbar region 01499089 M48.061 Lumbosacra l spondylosis without myelopathy 08339805 M47.817 Lumbosacra l radiculitis 99481165 M54.17 Displaceme nt of lumbar intervertebral disc without myelopathy 45137791 M51.26 58443 Alf Posada MD PAIN OFFICE [address] [facility] [place] [address] 05/11/2019 08:51:59 05/11/2019 09:45:44 Inflammation of joint of shoulder region 739851845 M13.819 Spinal linda nosis of lumbar region 91773528 M48.061 93895 Alf Posada MD PAIN OFFICE [address] [facility] [place] [address] 12/14/2019 13:40:03 12/14/2019 16:14:01 Spinal stenosis of lumbar region 98043845 M48.061 Lumbosacra l spondylosis without myelopathy 03923524 M47.817 Lumbosacra l radiculitis 19452965 M54.17 Displaceme nt of lumbar intervertebral disc without myelopathy 28500215 M51.26 42377 Alf Posada MD PAIN OFFICE [address] [place] [address] 02/12/2020 11:36:11 02/15/2020 12:09:29 Spinal stenosis of lumbar region 77692015 M48.061 Lumbosacra l spondylosis without myelopathy 67773062 M47.817 Lumbosacra l radiculitis 16990988 M54.17 Displaceme nt of lumbar intervertebral disc without myelopathy 35680584 M51.26 36018 Alf Posada MD PAIN OFFICE [address] [place] [address] 05/13/2020 08:29:14 05/13/2020 09:22:37 Inflammation of joint of shoulder region 242509978 M13.819 Spinal linda nosis of lumbar region 88918447 M48.061 64646 Alf Posada MD PAIN OFFICE [address] [place] [place] [address] 05/23/2020 12:46:33 05/23/2020 15:14:52 Inflammation of joint of shoulder region 527228663 M13.819 Spinal linda nosis of lumbar region 23815835 M48.061 78347 Alf Posada MD PAIN OFFICE [address] [place] [place] [address] 06/15/2020 10:54:32 06/15/2020 14:04:50 Inflammation of joint of shoulder region 398068011 M13.819 Spinal linda nosis of lumbar region 74047452 M48.061 Lumbosacra l spondylosis without myelopathy 28688353 M47.817 Lumbosacra l radiculitis 24148411 M54.17 Displaceme nt of lumbar intervertebral disc without myelopathy 78199517 M51.26 16351 Alf Posada MD PAIN OFFICE [address] [place] [address] 07/13/2020 08:30:09 07/13/2020 11:05:07 Inflammation of joint of shoulder region 583120097 M13.819 Spinal linda nosis of lumbar region 56138031 M48.061 11197 Alf Posada MD PAIN OFFICE [address] [place] [address] 09/06/2020 10:30:56 09/08/2020 15:55:16 Inflammation of joint of shoulder region 658933669 M13.819 Spinal linda nosis of lumbar region 56368809 M48.061 Lumbosacra l spondylosis without myelopathy 97295258 M47.817 Lumbosacra l radiculitis 04507201 M54.17 Displaceme nt of lumbar intervertebral disc without myelopathy 95154159 M51.26 57327 Alf Posada MD PAIN OFFICE [address] [place] [address] 11/07/2020 08:59:33 11/07/2020 09:55:18 Spinal stenosis of lumbar region 85868441 M48.061 Lumbosacra l spondylosis without myelopathy 86446698 M47.817 Lumbosacra l radiculitis 90922841 M54.17 Displaceme nt of lumbar intervertebral disc without myelopathy 54803845 M51.26 84014 Alf Posada MD PAIN OFFICE [address] [place] [address] 01/10/2021 13:47:25 01/12/2021 10:00:57 Inflammation of joint of shoulder region 749881724 M13.819 Spinal linda nosis of lumbar region 41364185 M48.061 Lumbosacra l spondylosis without myelopathy 88575625 M47.817 Lumbosacra l radiculitis 90330330 M54.17 Displaceme nt of lumbar intervertebral disc without myelopathy 83934137 M51.26 77276 Alf Posada MD PAIN OFFICE [address] [place] [address] 02/16/2021 08:44:41 02/16/2021 10:52:14 Spinal stenosis of lumbar region 03876202 M48.061 Lumbosacra l spondylosis without myelopathy 96234009 M47.817 Lumbosacra l radiculitis 67961105 M54.17 Displaceme nt of lumbar intervertebral disc without myelopathy 47216294 M51.26 39988 Alf Posada MD PAIN OFFICE [address] [place] [address] 04/11/2021 13:21:59 04/11/2021 14:01:08 Spinal stenosis of lumbar region 86688684 M48.061 Inflammati on of joint of shoulder region 660303678 M13.819 Lumbosacra l spondylosis without myelopathy 21874170 M47.817 Lumbosacra l radiculitis 40182434 M54.17 Displaceme nt of lumbar intervertebral disc without myelopathy 74174089 M51.26 14880 Alf Posada MD PAIN OFFICE [address] [place] [address] 06/26/2021 15:22:32 06/30/2021 10:03:11 Spinal stenosis of lumbar region 04045062 M48.061 Lumbosacra l spondylosis without myelopathy 92482158 M47.817 Lumbosacra l radiculitis 24593512 M54.17 Displaceme nt of lumbar intervertebral disc without myelopathy 09451026 M51.26 84170 Alf Posada MD PAIN OFFICE [address] [place] [address] 07/11/2021 12:54:52 07/11/2021 13:38:15 Spinal stenosis of lumbar region 19532905 M48.061 Inflammati on of joint of shoulder region 204099707 M13.819 Lumbosacra l spondylosis without myelopathy 59393686 M47.817 Lumbosacra l radiculitis 71742555 M54.17 Displaceme nt of lumbar intervertebral disc without myelopathy 69254948 M51.26 70796 Alf Posada MD PAIN OFFICE [address] [place] [address] 10/04/2021 10:46:49 10/04/2021 12:00:47 Spinal stenosis of lumbar region 62295318 M48.061 Inflammati on of joint of shoulder region 711036655 M13.819 Lumbosacra l spondylosis without myelopathy 87869711 M47.817 Lumbosacra l radiculitis 70453995 M54.17 Displaceme nt of lumbar intervertebral disc without myelopathy 88568917 M51.26 95071 Alf Posada MD PAIN OFFICE [address] [place] [address] 12/12/2021 11:17:23 12/12/2021 14:28:00 Spinal stenosis of lumbar region 39163142 M48.061 Inflammati on of joint of shoulder region 607794198 M13.819 Lumbosacra l spondylosis without myelopathy 97938211 M47.817 Lumbosacra l radiculitis 04658502 M54.17 Displaceme nt of lumbar intervertebral disc without myelopathy 21045096 M51.26 03109 Alf Posada MD PAIN OFFICE [address] [place] [address] 08/21/2022 10:05:44 08/21/2022 11:05:40 Spinal stenosis of lumbar region 69626721 M48.061 Inflammati on of joint of shoulder region 902485055 M13.819 Lumbosacra l spondylosis without myelopathy 26295173 M47.817 Lumbosacra l radiculitis 37460770 M54.17 Displaceme nt of lumbar intervertebral disc without myelopathy 81536429 M51.26 Degenerati on of lumbar intervertebral disc 81781585 M51.36 Health Concerns Section Related Observation LastModified by Organization Detai ls LastModified Time None Recorded Concern Status LastModified by Organization Details LastModified Time None Recorded Advance Directives Directive None Recorded Payers Insurance Date Sequence Insurance Name Policy Number Policy Anders Covered Member ID Anders Member ID Guarantor Name 12/15/2022 1 [place] [employer] Shreya M Gravel [id number] Shreya Gravel 12/15/2022 2 [place] [id number] Shreya Gravel [id number] Shreya Calvert Notes Date Note Type [...] or bowel incontinence. Alf Posada MD [address] [facility] , [address], [place], [address], [place] [facility] 07/10/2021 08:52:57 07/11/2021 text/html She is here for a lumbar epidural steroid injection under fluoroscopic guidance. Alf Posada MD [address] [facility] , [address], [place], [address], [place] [facility] 07/12/2021 09:01:37 10/04/2021 text/html She is here for a lumbar epidural steroid injection under fluoroscopic guidance. Alf Posada MD [address] [facility] , [address], [place], [address], [place] [facility] 10/04/2021 12:48:56 12/12/2021 text/html She is here for a lumbar epidural steroid injection under fluoroscopic guidance. Alf Posada MD [address] [facility] , [address], [place], [address], [place] [facility] 12/12/2021 16:13:18 08/21/2022 text/html She is here for a lumbar epidural steroid injection under fluoroscopic guidance. She has stopped eliquis and pletal as instructed for the procedure. Alf Posada MD [address] [facility] , [address], [place], [address], [place] [facility] 08/22/2022 08:44:58 OBGyn Episode No OBEpisode recorded.
--- OUTSIDE RECORDS SUMMARY | 2025-10-05 18:56 | XMS_ITS | Patient Health Record ---
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 [...] X ray : Foot, right 2V 06/06/2012 17499-KVZPXYX NAIL, 6 OR MORE 03/27/2012 96173-EKTBYFW NAIL, 6 OR MORE 08/22/2012 71686-LBEPCOA NAIL, 6 OR MORE 06/13/2012 48203-LRYFNNS NAIL, 6 OR MORE 08/28/2011 09134-NRALLTO NAIL, 6 OR MORE 11/13/2011 40095-SYDQAOR NAIL, 6 OR MORE 01/18/2012 78057-MJVNEEI NAIL, 6 OR MORE 11/06/2012 52162-PZLTWYG NAIL, 6 OR MORE 02/10/2013 22511-KAIMCCB NAIL, 6 OR MORE 04/14/2013 58417-JYCVJKX NAIL, 6 OR MORE 05/21/2013 51928-XCYRWDH NAIL, 6 OR MORE 07/09/2013 92175-JJSHKJL NAIL, 6 OR MORE 10/13/2013 18167-EPCAGUL NAIL, 6 OR MORE 04/23/2014 14385-WLSBSNH NAIL, 6 OR MORE 01/15/2014 52255-AFPEISH NAIL, 6 OR MORE 07/22/2014 57122-NVJWQAE NAIL, 6 OR MORE 10/26/2014 21834-BWWNACU NAIL, 6 OR MORE 02/11/2015 81960-AOEHWQN NAIL, 6 OR MORE 04/19/2015 09097-HDGDLNJ NAIL, 6 OR MORE 07/12/2015 33967-CDFWICG NAIL, 6 OR MORE 10/18/2015 33106-VSKHJYV NAIL, 6 OR MORE 12/20/2015 91771-QUPAGNY NAIL, 6 OR MORE 02/28/2016 45729-ZPDUAYT NAIL, 6 OR MORE 06/15/2016 02665-OIDHIYB NAIL, 6 OR MORE 09/12/2016 77671-HUNNWJE NAIL, 6 OR MORE 12/05/2016 92636-QWMHEOS NAIL, 6 OR MORE 02/22/2017 12581-EWZJOMA NAIL, 6 OR MORE 10/30/2017 63221-BJBLFRO NAIL, 6 OR MORE 02/04/2018 25024-DELDGRB NAIL, 6 OR MORE 04/24/2018 57637-QNRHMPT NAIL, 6 OR MORE 07/23/2018 27494-XYTNXXW NAIL, 6 OR MORE 05/24/2017 98713-CCMCYOA NAIL, 6 OR MORE 08/06/2017 99864-UNOIEAF NAIL, 6 OR MORE 05/29/2019 65675-YNGERZM NAIL, 6 OR MORE 11/11/2019 71598-GGAAUOU NAIL, 6 OR MORE 03/02/2020 13323-NGPQJQF NAIL, 6 OR MORE 05/04/2020 27900-HSMZIZT NAIL, 6 OR MORE 07/08/2020 74451-LXAXJAX NAIL, 6 OR MORE 02/17/2021 08578-QQOZRRN NAIL, 6 OR MORE 06/20/2021 45991-ZHNIHBW NAIL, 6 OR MORE 11/07/2021 07399-WGZLRMC NAIL, 6 OR MORE 01/16/2022 09726-XROHRKG NAIL, 6 OR MORE 03/20/2022 04478-EHKYUVE NAIL, 6 OR MORE 06/12/2022 11112-VRYBRRI NAIL, 6 OR MORE 09/12/2022 03110-MFEFBNX NAIL, 6 OR MORE 01/22/2023 73306-UQVHURN NAIL, 6 OR MORE 05/29/2023 04554-Kpmi Destruction, -14 01/22/2023 94751-Insc Destruction, -14 07/02/2023 35303-Ztje Destruction, -14 10/16/2022 45043-Dtql Destruction, -14 06/12/2022 07526-Xatg Destruction, -14 09/12/2022 70768-Iwwd Destruction, -14 01/16/2022 20391-Kfjv Destruction, -14 12/19/2021 04130-Uxyn Destruction, -14 11/07/2021 17123-Zwoc Destruction, -14 08/01/2021 20690-Iirk Destruction, 10-2007/08/2020 95626-Wpse Destruction, 10-2001/11/2021 97098-Ucul Destruction, 10-2008/23/2020 67505-Nbau Destruction, 10-2005/04/2020 34900-Orrd Destruction, 10-2003/02/2020 81510-Itdd Destruction, 10-2009/18/2019 78224-Uzwv Destruction, 10-2011/11/2019 42828-Ciwn Destruction, 10-2007/15/2019 33894-Kqix Destruction, 10-2005/29/2019 42030-Zsoo Destruction, 10-2007/02/2017 23110-Mqsd Destruction, 10-2007/23/2018 74083-Wrku Destruction, 10-2009/10/2018 32642-Mdey Destruction, 10-2003/26/2017 82890-Fthj Destruction, 10-2005/24/2017 52424-Depi Destruction, 10-2012/05/2016 44350-Drpd Destruction, 10-2008/01/2016 95685-Apgz Destruction, 10-2010/24/2016 22282-Mqdu Destruction, 10-2006/15/2016 65780-Alak Destruction, 10-2004/05/2016 04388-Cxqi Destruction, 10-2012/20/2015 94989-Gibl Destruction, 10-2001/24/2016 09484-Nvrj Destruction, 10-2010/18/2015 34351-Qfwa Destruction, 10-2008/23/2015 31500-Jbpt Destruction, 10-2004/14/2013 58464-Xiej Destruction, 10-2005/21/2013 37688-Fenjphzw Plate 09/01/2013 19741-Ghzimttw Plate 07/09/2013 73685-Ooemkqre Plate 02/10/2013 38673-Dwaugihi Plate 12/30/2012 52165-Bwacgclp Plate 10/26/2014 94938-Rucykfwe Plate 08/26/2014 43616-Raaeekej Plate 07/22/2014 43888-Nfuzirzh Plate 04/23/2014 41498-Vantrhji Plate 12/04/2013 57541-Tyvwfafr Plate 07/10/2011 49303-Swrzuunv Plate 01/18/2012 53275-Ouzdtxry Plate 10/16/2011 51101-Lsrmoohp Plate 10/25/2011 23793-Uippouor Plate 11/08/2011 39399-Gruaxctl Plate 07/11/2012 41918-Toiuxglb Plate 09/25/2012 25165-Yaervoxj Plate 08/22/2012 18057-Jsvekrgg Plate 03/27/2012 16070-Eodnqrzr Plate 05/09/2012 29952-Ykthuwfe Plate 06/13/2012 19426-Ouedweof Plate 05/31/2015 81192-Zzvfedoo Plate 07/12/2015 65188-Jhbpizhh Plate 04/19/2015 09813-Vmvhdaau Plate 02/11/2015 67253-Unjguglg Plate 03/04/2014 32606-Uvioritl Plate 11/25/2014 97227-Fuyhjffg Plate 06/15/2016 76767-Ccotadmq Plate 03/26/2017 02298-Ycodjxsi Plate 08/06/2017 40739-Ddhnoxxj Plate 05/29/2019 17829-Zlohjasa Plate 09/18/2019 74210-Kjtoytnf Plate 07/15/2019 18824-Hntzjxui Plate 07/08/2020 52654-Sfjiufdh Plate 01/11/2021 87519-Jjzgujos Plate 02/17/2021 06809-Kswvdjyj Plate 03/31/2021 63513-Dvsrvtyg Plate 06/20/2021 70398-Vxpmzcwm Plate 01/16/2022 84531-Mbnxuxnr Plate 11/07/2021 14763-Ueutslfy Plate 04/24/2022 04057-Zbbzjgll Plate Each Additional 07551-Qfmxmdyy Plate Each Additional 10/2021 72698-Eakweobg Plate Each Additional 09/2022 54863-Aixebito Plate Each Additional 42245-Xjrwzwgd Plate Each Additional 04/2021 50858-Csijsgfq Plate Each Additional 11/2019 97255-Taloyuhk Plate Each Additional 87379-Jjgasacw Plate Each Additional 04/2012 97309-Xeyvpnjz Plate Each Additional 12/2011 33062-Gozgcsax Plate Each Additional 68338-Vrllgxdv Plate Each Additional 04/2013 60707- Debride <25 sq cm 02/10/2013 90964- Debride <25 sq cm 12/30/2012 74040- Debride <25 sq cm 11/06/2012 38294- Debride <25 sq cm 05/21/2013 01260- Debride <25 sq cm 04/14/2013 22696- Debride <25 sq cm 12/04/2013 54116- Debride <25 sq cm 04/23/2014 34421- Debride <25 sq cm 05/27/2014 06990- Debride <25 sq cm 07/22/2014 47138- Debride <25 sq cm 08/26/2014 66452- Debride <25 sq cm 10/26/2014 24793- Debride <25 sq cm 06/06/2012 60379- Debride <25 sq cm 03/27/2012 99053- Debride <25 sq cm 06/13/2012 54222- Debride <25 sq cm 08/22/2012 62151- Debride <25 sq cm 09/25/2012 68645- Debride <25 sq cm 08/28/2011 90904- Debride <25 sq cm 07/10/2011 39039- Debride <25 sq cm 02/15/2012 43238- Debride <25 sq cm 12/20/2011 93627- Debride <25 sq cm 11/25/2014 29806- Debride <25 sq cm 01/04/2015 10890- Debride <25 sq cm 02/11/2015 58633- Debride <25 sq cm 03/15/2015 75100- Debride <25 sq cm 04/19/2015 49370- Debride <25 sq cm 07/12/2015 72329- Debride <25 sq cm 01/18/2017 12476- Debride <25 sq cm 09/12/2016 88901- Debride <25 sq cm 05/04/2020 67775- Debride <25 sq cm 01/11/2021 80509- Debride <25 sq cm 10/30/2017 30374- Debride <25 sq cm 07/02/2017 67399- Debride <25 sq cm 09/10/2018 96752- Debride <25 sq cm 05/29/2019 70899- Debride <25 sq cm 02/17/2021 08811- Debride <25 sq cm 03/31/2021 07740- Debride <25 sq cm 06/20/2021 65656- Debride <25 sq cm 11/07/2021 26650- Debride <25 sq cm 08/01/2021 47725- Debride <25 sq cm 11/28/2021 15072- Debride <25 sq cm 06/12/2022 36291- Debride <25 sq cm 04/24/2022 17151- Debride <25 sq cm 03/20/2022 04700- Debride <25 sq cm 09/12/2022 14252- Debride <25 sq cm 11/13/2022 37773- Debride <25 sq cm 01/22/2023 22790- Debride <25 sq cm 10/16/2022 34951- Debride <25 sq cm 07/02/2023 97226-UDBPQIP SKIN/TISSUE 05/22/2024 69544-GYIBFJP SKIN/TISSUE 01/15/2014 94909-BNFFQAY SKIN/TISSUE 03/04/2014 94092 I&D ABSCESS- SIMPLE,SINGLE 012 47768 I&D ABSCESS- SIMPLE,SINGLE 013 98237-RUHX SKIN LESIONS, 2 TO 4 05/22/20 24 93336- Removal of Foreign Body, Subcut 1 73476-Olxzvpwz Benign Lesion 0.5cm 11/08 48053-Lmfycckn Benign Lesion 0.5cm 10/25- Ganglion Cyst Injection/Aspiratio n 01/18/2012- Ganglion Cyst Injection/Aspiratio n 07/02/2017 Future Test Test Name Order Date 44554-Iddlpiwl Plate Each Additional Insurance Providers Payer Name Payer Address Payer Phone Subscriber Number Group Number Insured Name Patient Relationship to Insured Coverage Start Date Coverage End Date Medicare National [employer] [address] [place] [address] [id number] Shreya Calvert Self - patient is the insured 1 [employer] [address] [place] [address] [phone] [id number] Shreya Calvert Self - patient is the [...] Rehab 05/2024 [facility], rehab- leg swelling 05/2023 [facility] fell down 02/2023 [facility] ran over by scooter 02/2023 [facility] heart issues 08/2022 [facility] Cellulitis 07/2022 [facility] heart issues 03/2022 [facility]- cellulitis, day stay, 3 week therap y 01/2022 [facility], rehab- fell 05/2021 [facility] for cellulitis for 5 days 9 [facility] fall 05/05/18 [facility] [address] [facility], tripped bumped head 08/2015 Admitted to [facility] overnight;GERD 03/2015 [facility] Emergency 11/23/14 & 11/24 Dehydration 11/2011
--- OUTSIDE RECORDS SUMMARY | 2025-10-05 18:56 | XMS_ITS | Data Portability ---
Author Organization [facility], Main Office Address [address], [address] [place] [address] Care Team Providers Care Architectural Job Captain Name Role Phone DARRIN STYLES 3RD FLOOR [...] and Address Organization Details Recorded Time Cystitis 21532997 Active [address] [facility], [address], [place], [address], [facility] 4 14:00:02 Falls 001288476 Active [address] [facility], [address], [place], [address], [facility] 4 14:00:38 Pain of right wrist 7760390524706 00 Active 2023 FRIEDA ANDERSON [address] , [address], [place], [address], [facility] 4 14:00:56 Peripheral venous insufficien cy 94857922 Active 2023 CARLTON MINA, PHYSICS INSTRUCTOR [address], [address], [place], [address], [place] [facility] 4 14:01:26 Chronic diastolic heart failure 190463835 Active 2023 CARLTON MINA, PHYSICS INSTRUCTOR [address], [address], [place], [address], [place] [facility] 4 14:01:46 Type 2 diabetes mellitus 13010912 Active 2023 CARLTON MINA, [facility] [address], [address], [place], [address], [place] [facility] 4 14:01:55 Paroxysmal atrial flutter 775887832 Active 2023 MP ANDERSONP [address], [address], [place], [address], [place] [facility] 4 14:02:21 Restless legs syndrome 83163243 Active 2023 MP ANDERSONP [address], [address], [place], [address], [place] [facility] 4 14:02:38 Chronic obstructive pulmonary disease 21848352 Active 2023 FRIEDA ANDERSON [address], [address], [place], [address], [place] [facility] 4 14:02:49 Anemia of chronic disease 547048785 Active 2023 FRIEDA ANDERSON [address], [address], [place], [address], [place] [facility] 4 14:02:59 Mixed anxiety and depressive disorder 245042376 Active 2023 CARLTON MINA, PHYSICS INSTRUCTOR [address], [address], [place], [address], [place] - [facility] 4 14:17:43 Chronic kidney disease 011521672 Active 2023 MP ANDERSONP [address], [address], [place], [address], [place] [facility] 4 14:19:41 Hyperlipide nena 88169635 Active 2023 FRIEDA ANDERSON [address], [address], [place], [address], [facility] 4 14:26:52 Gastroesoph ageal reflux disease 639227476 Active 2023 FRIEDA ANDERSON [address], [address], [place], [address], [facility] 4 14:27:49 Chronic back pain 330129751 Active 2023 FRIEDA ANDERSON [address], [address], [place], [address], [facility] 4 14:40:47 Vitamin D deficiency 49795436 Active 2023 FRIEDA ANDERSON [address], [address], [place], [address], [facility] 4 19:41:46 Bradycardia 29015054 Active 2023 FRIEDA ANDERSON [address], [address], [place], [address], [facility] 4 19:44:32 Asthenia 69268469 Active 2023 FRIEDA ANDERSON [address], [address], [place], [address], [facility] 4 19:53:05 Bleeding from nose 834302382 Active 2023 FRIEDA ANDERSON [address], [address], [place], [address], [facility] 4 15:36:07 Osteomyelit is 58640402 Active 2023 Naomi Todd MD [address], [address], [place], [address], [facility] 4 17:53:51 Headache 22092900 Active 2023 WISAM SILVA NP [address], [address], [place], [address], [place] [facility] 4 09:49:14 Essential hypertensio n 35039450 Active 2024 Rex Bass MD [address] [place] [address], [address], [place], [address], [facility] 5 09:46:16 Problem Notes None recorded. Medical Equipment None Reported. Allergies Allergen ID Allergen Name Allergen Category Reaction Reaction Severity Criticality Documentation Date Start Date Code Code System Note Provider Name and Address Organization Details Recorded Time 84150 lisinopri l medicatio n Not available Not available Not available 10/22/2023 84380 RxNorm Naomi Todd MD [address] [place] [address], [facility] [address], [place], [address], [facility] 4 17:53:46 Medications Name Sig Start Date [...] 165.1 cm 129/73 mm[Hg] Rex Bass MD [address] [place] [address], [address], [place], [address], [facility] 11/25/2024 11:53:24 Date Recorded Body height Body temperature Heart rate Respiratory rate Systolic And Diastolic Provider Name and Address Organization Details Last Updated DateTime 5 165.1 cm 97.4 [degF] 84 /min 18 /min 142/70 mm[Hg] Rex Bass MD [address] [place] [address], [address], [place], [address], [facility] 5 09:39:14 Date Recorded Body height Body temperature Respiratory rate Oxygen saturation Systolic And Diastolic Provider Name and Address Organization Details Last Updated DateTime 5 165.1 cm 97.9 [degF] 18 /min 97 % 130/70 mm[Hg] FRIEDA ANDERSON [address] [facility], [address], [place], [address], [facility] 18:58:17 Social History Question Answer Notes LastModified by Organizat ion Details LastModified Time Tobacco Smoking Status Former Smoker quit 30 yrs ago FRIEDA ANDERSON [address] , [address], [place], [address], [facility] 10/24/2023 14:39:11 Do You Have An Advance Directive? Yes Information not available 10/24/2023 What Is Your Level Of Caffeine Consumption? Occasional Information not available 10/24/2023 What Is Your Code Status? DNR/DNI Information not available 10/24/2023 [facility] At [facility], Had Been Living At [facility] Information not available 04/13/2024 Legal Guardian? No Informati on not available 10/24/2023 Do You Have A Medical Power Of Breakfast Cook? Yes Information not available 10/24/2023 What Was [...] Recorded Time Tdap 2 completed Flor Luna [facility] 12/27/2023 11:11:29 Pneumococcal conjugate PCV 13 7 completed Flor Luna [facility] 12/27/2023 11:11:41 Influenza, adjuvanted, quadrivalent, PF 3 completed lFor Luna [facility] 12/27/2023 11:11:59 COVID-19, mRNA, LNP-S, bivalent, PF, 30 mcg/0.3 mL dose 1 completed Florgwen Luna [facility] 12/27/2023 11:12:12 COVID-19, mRNA, LNP-S, bivalent, PF, 30 mcg/0.3 mL dose 1 completed Flor Jeremy [facility] 12/27/2023 11:12:20 COVID-19, mRNA, LNP-S, bivalent, PF, 30 mcg/0.3 mL dose 1 completed Florgwen Luna [facility] 12/27/2023 11:12:29 COVID-19, mRNA, LNP-S, bivalent, PF, 30 mcg/0.3 mL dose 2 completed Flor Jeremy [facility] 12/27/2023 11:12:48 Past Encounters Encounter ID Performer Location Encounter Start Date Encounter Closed Date Diagnosis/Indication Diagnosis SNOMED-CT Code Diagnosis ICD10 Code Diagnosis IMO Codes Diagnosis Note [id number] FRIEDA ANDERSON [address] [facility] [place] [address] 10/23/2023 08:21:08 10/28/2023 15:39:59 Cystitis 21318007 N30.90 With MDROInitia lly with Vanco and cefepime however cultures growing MDRO Klebsiella Started meropenem 1 g q12 for 7 days.start ed 10/19 for 7 full days of treatment to end 10/26.probi otic added Falls 704025218 R29.6 likely multifacto rial from neuropathy , frailty, arthritis and LE edemaCT negative for any fractures. CT Head/Brain W/O Contrast negativeIn itiated safety precaution per facility protocolPT /OT eval and tx. Peripheral venous insufficiency 33166196 I87.2 Venous insufficie ncy of both lower extremitie sDoppler LLE no DVT, symmetric erythema without increased warmth or tenderness , appears similar to previous picture taken, low suspicion for superimpos ed cellulitis Chronic di astolic heart failure 994043436 I50.32 preserved EFeuvolemi ctorsemide held in acute care d/t hypotensio n and bradycardi c 50'smonito r BP and need to restartmon itor weights Chronic ob structive pulmonary disease 29270090 J44.9 Albuterol Sulfate Nebulizati on Solution (2.5 MG/3ML) Q6 prnAdvair Jycjue951- 50 mcg Q12 Restless l egs syndrome 00593459 G25.81 ROPINIRole HCl Tablet 2 MG BID Type 2 jr betes mellitus 44270367 E11.21 continue monitor glucose,Li spro SSI coverageGa bapentin Capsule 300 MG at bedtime for neuropathy pain.trama dol 25 mg q12 prn Paroxysmal atrial flutter 634153428 I48.92 not on anticoagAm iodarone HCl Tablet 200 MG dailymonit or HR Mixed anxi ety and depressive disorder 629417485 F41.8 Escitalopr am Oxalate Tablet 30 mg dailymonit or for mood and behavorial changes. Anemia of chronic disease 688588018 D63.8 Ferrous Sulfate Tablet 325 dailymonit or labs prn Hyperlipidemia 29671285 E78.5 Atorvastat in 20 mg dailymonit or labs Gastroesop hageal reflux disease 376296640 K21.9 Pantoprazo le40 mg dailymonit or for gi upset. Chronic back pain 596172 002 G89.29 tramadol 25 mg Q12 prngabapen tin 300 mg at hs Vitamin D deficiency 347 89944 E55.9 Cholecalci ferol 2000 UNIT daily Pain of right wrist 3169 224031 57769 M25.531 x-ray was ordered which was negative.P T/OT eval and tx Bradycardia 89906707 R00 .1 in acute care HR as low as 40snormal FL/QRS/QTc prolongati on..T nonspecifi c isolated T wave inversions on single lead V2 were present on recent study from 07/19/2023 . No evidence of acute ischemic changes. Chronic ki dney disease 539786241 N18.9 Renal function is at baselinemo nitor labsavoid nephrotoxi c drugs Asthenia 00221332 R53.1 hx of multiple fallsambul ates with walkerPT/O T eval and treat [id number] Naomi Todd MD [address] [place] [address] 10/24/2023 16:17:28 11/06/2023 11:12:59 Cystitis 79322334 N30.00 Continue meropenem 1 g q 12 hrs to complete 7 d course on 10/26.Monit or for recurrent sxs. Falls 180275532 R29.6 Likely multifacto rial from neuropathy , frailty, arthritis and LE edemaVery deconditio christoph.Needs PT/OT for strengthen ing, balance, gait training, safety and function.C ontinue fall precaution s.Monitor for safety. Peripheral venous insufficiency 08590330 I87.2 Almost at baseline per pt.Continu e local care and elevation. Chronic di astolic heart failure 270050553 I50.32 Appears euvolemic. Monitor for need for diuretics. Monitor resp. status, fluid status, wts and labs. Chronic ob structive pulmonary disease 27620266 J43.8 No current sxs.Contin ue Advair 250/50 BID and albuterol nebs q 6 hrs prnMonitor resp status. Restless l egs syndrome 50940523 G25.81 Continue ropinirole 2 mg BIDMonitor sxs. Type 2 jr betes mellitus 38773524 E11.21 Diet controlled .Sugar <150 yest, not checked previously .Continue gabapentin 300 MG qhs and tramadol q 12 hrs prn for neuropathy Monitor fingerstic ks BID x 1 wk with SSI, d/c if not needing coverage. Paroxysmal atrial flutter 787739292 I48.92 Rate in good control on amiodarone 200 mg qdNot on AC due to age and fall riskMonito r HR Mixed anxi ety and depressive disorder 174491395 F41.8 Mood down today due to concerns about living situation. Continue escitalopr am 30 mg qdMonitor mood.Consu lt psych prn Anemia of chronic disease 676454004 D63.8 Continue FeSO4 325 mg qd with vitamin C 250 mg qd for absorption .Monitor labs Hyperlipidemia 62865033 E78.49 Continue atorvastat in 20 mg qdMonitor labs yearly Gastroesop hageal reflux disease 510954887 K21.9 No current sxs.Contin ue pantoprazo le 40 mg qdMonitor sxs Chronic ki dney disease 296184259 N18.9 In hx, but renal function WNL yest.Cindy nue to avoid nephrotoxi c meds as able.Monit or labs.Renal consult prn. Chronic back pain 713705 002 G89.29 Continue tramadol 25 mg q 12 hrs prn and gabapentin 300 mg qhsMonitor sxs. [id number] FRIEDA ANDERSON [address] [place] [address] 10/29/2023 07:42:54 11/01/2023 08:26:34 Cystitis 31030306 N30.90 With MDROInitia lly with Vanco and cefepime however cultures growing MDRO Klebsiella Started meropenem 1 g q12 for 7 days.start ed 10/19 for 7 full days of treatment to end 10/26.- completed denies any dysuriapro biotic added Falls 184279595 R29.6 continue to work with PT/OT for strengthen inglikely multifacto rial from neuropathy , frailty, arthritis and LE edemaCT negative for any fractures. CT Head/Brain W/O Contrast negativeIn itiated safety precaution per facility protocol Peripheral venous insufficiency 47042241 I87.2 BLE edema left greater than right Venous insufficie ncy of both lower extremitie sDoppler LLE no DVT, symmetric erythema without increased warmth or tenderness , appears similar to previous picture taken, low suspicion for superimpos ed cellulitis Chronic di astolic heart failure 096335909 I50.32 preserved EFeuvolemi ctorsemide held in acute care d/t hypotensio n and bradycardi c 50'smonito r BP and need to restartmon itor weights Chronic ob structive pulmonary disease 20694515 J44.9 Albuterol Sulfate Nebulizati on Solution (2.5 MG/3ML) Q6 prnAdvair Kklfdo645- 50 mcg Q12 Restless l egs syndrome 00645277 G25.81 ROPINIRole HCl Tablet 2 MG BID Type 2 jr betes mellitus 16946709 E11.21 continue monitor glucose,Li spro SSI coverageGa bapentin Capsule 300 MG at bedtime for neuropathy pain.trama dol 25 mg q12 prn Paroxysmal atrial flutter 388341211 I48.92 not on anticoagAm iodarone HCl Tablet 200 MG dailymonit or HR Mixed anxi ety and depressive disorder 214787470 F41.8 Escitalopr am Oxalate Tablet 30 mg dailymonit or for mood and behavorial changes. Anemia of chronic disease 840823034 D63.8 Ferrous Sulfate Tablet 325 dailymonit or labs prn Hyperlipidemia 55728383 E78.5 Atorvastat in 20 mg dailymonit or labs Gastroesop hageal reflux disease 629432808 K21.9 Pantoprazo le40 mg dailymonit or for gi upset. Chronic back pain 015581 002 G89.29 tramadol 25 mg Q12 prngabapen tin 300 mg at hs Vitamin D deficiency 347 51183 E55.9 Cholecalci ferol 2000 UNIT daily Pain of right wrist 3169 791500 01917 M25.531 x-ray was ordered which was negative.P T/OT eval and tx Bradycardia 26936293 R00 .1 in acute care HR as low as 40snormal FL/QRS/QTc prolongati on..T nonspecifi c isolated T wave inversions on single lead V2 were present on recent study from 07/19/2023 . No evidence of acute ischemic changes. Chronic ki dney disease 313810039 N18.9 Renal function is at baselinemo nitor labsavoid nephrotoxi c drugs Asthenia 82388884 R53.1 hx of multiple fallsambul ates with walkerPT/O T eval and treat [id number] FRIEDA ANDERSON [address] [place] [address] rd [place] [address] 11/01/2023 08:04:11 11/06/2023 11:37:03 Cystitis 32835155 N30.90 With MDROInitia lly with Vanco and cefepime however cultures growing MDRO Klebsiella Started meropenem 1 g q12 for 7 days.start ed 10/19 for 7 full days of treatment to end 10/26.- completed denies any dysuriapro biotic added Pruritus of vagina 64511 003 L29.3 Reports vaginal itchiness for over [...] BID for 7 days and re eval. [id number] FRIEDA ANDERSON [address] [address] 11/04/2023 12:13:42 11/06/2023 12:50:39 Falls 188475553 R29.6 see/HPiwit nessed fallwith injury/lac eration above left eye.no LOC Facial laceration 179108 008 S01.81XA above left eye/about 2 cm in lengthblee ding controlled , wrapped in gauze dressing. [id number] FRIEDA ANDERSON [address] [address] 11/06/2023 09:19:58 11/13/2023 12:17:34 Falls 638720617 R29.6 see/HPiwit nessed fallwith injury/lac eration above left eye.no LOCContinu e PT/OT Facial laceration 850320 008 S01.81XA above left eye/about 2 cm in lengthappe ars to be about 10-12 small dissolvabl e sutures in placedenie s any visual changes or headache.n ursing to monitor healing Pruritus of vagina 83279 003 L29.3 Reports vaginal itchiness for over [...] days and re eval. Chronic back pain 626024 002 G89.29 denies any new discomfort post falltramad ol 25 mg Q12 prngabapen tin 300 mg at hs Asthenia 43050025 R53.1 hx of multiple fallsambul ates with walkerPT/O T continue [id number] FRIEDA ANDERSON [address] [address] 11/08/2023 13:54:21 11/13/2023 13:10:32 Falls 573001286 R29.6 on 11/04/23wit nessed fallwith injury/lac eration above left eye.no LOCContinu e PT/OT Facial laceration 161274 008 S01.81XA above left eye/about 2 cm in lengthappe ars to be about 10-12 small di-solvabl e sutures in placedenie s any visual changes or headache.n ursing to monitor healing Pruritus of vagina 61932 003 L29.3 Reports vaginal itchiness for over [...] assure med is applied. Chronic back pain 960174 002 G89.29 denies any new discomfort post falltramad ol 25 mg Q12 prngabapen tin 300 mg at hs Asthenia 93397134 R53.1 hx of multiple fallsambul ates with walkerPT/O T continue [id number] FRIEDA ANDERSON [address] [address] 11/13/2023 10:59:21 11/15/2023 09:29:54 Falls 442772179 R29.6 on 11/04/23wit nessed fallwith injury/lac eration above left eye.no LOCContinu e PT/OT Facial laceration 167157 008 S01.81XA healingabo ve left eye/about 2 cm in lengthappe ars to be about 10-12 small di-solvabl e sutures in placedenie s any visual changes or headache.n ursing to monitor healing Pruritus of vagina 09074 003 L29.3 improving, continues with triamcinol one topical cream BID Chronic back pain 570288 002 G89.29 denies any new discomfort post falltramad ol 25 mg Q12 prngabapen tin 300 mg at hs Asthenia 25977783 R53.1 hx of multiple fallsambul ates with walkerPT/O T continues [id number] FRIEDA ANDERSON [address] [address] 11/18/2023 07:58:48 11/21/2023 13:26:13 Falls 710108481 R29.6 on 11/04/23wit nessed fallwith injury/lac eration above left eye.no LOCContinu e PT/OT Facial laceration 914276 008 S0.81XA healingabo ve left eye/about 2 cm in lengthappe ars to be about 10-12 small di-solvabl e sutures in placedenie s any visual changes or headache.n ursing to monitor healing Pruritus of vagina 26190 003 L29.3 improving, continues with triamcinol one topical cream BID Chronic back pain 997441 002 G89.29 denies any new discomfort post falltramad ol 25 mg Q12 prngabapen tin 300 mg at hs Asthenia 51996277 R53.1 hx of multiple fallsambul ates with walkerPT/O T continues [id number] FRIEDA ANDERSON [address] [address] 11/21/2023 13:49:57 11/25/2023 12:31:48 Falls 100990206 R29.6 on 11/04/23wit nessed fallwith injury/lac eration above left eye.no LOCContinu e PT/OT Facial laceration 605995 008 S01.81XA 11/04 s/p fall for laceration above left eye.healin g no s/sx of infectiona rolan left eye/about 2 cm in lengthappe ars to be about 10-12 small di-solvabl e sutures in placedenie s any visual changes or headache.n ursing to monitor healing Pruritus of vagina 84046 003 L29.3 improving, continues with triamcinol one topical cream BID Chronic back pain 619692 002 G89.29 denies any new discomfort post falltramad ol 25 mg Q12 prngabapen tin 300 mg at hs Asthenia 10867087 R53.1 hx of multiple fallsambul ates with walkerPT/O T continues [id number] CARLTON MINA [address] [address] 11/26/2023 07:45:18 11/28/2023 10:55:36 Falls 891567492 R29.6 on 11/04/23wit nessed fallwith injury/lac eration above left eye.no LOCContinu e PT/OT Facial laceration 030749 008 S01.81XA 11/04 s/p fall for laceration above left eye.healin g no s/sx of infectiona rolan left eye/about 2 cm in lengthappe ars to be about 10-12 small di-solvabl e sutures in placedenie s any visual changes or headache.n ursing to monitor healing Pruritus of vagina 71473 003 L29.3 triamcinol one topical cream BIDkeep area clean and dry. Chronic back pain 072895 002 G89.29 tramadol 25 mg Q12 prngabapen tin 300 mg at hs Asthenia 69435626 R53.1 hx of multiple fallsambul ates with walkerPT/O T continues [id number] FRIEDA ANDERSON [address] [address] 11/29/2023 08:06:37 12/03/2023 11:20:10 Falls 714544842 R29.6 on 11/04/23wit nessed fallwith injury/lac eration above left eye.no LOCContinu e PT/OT Facial laceration 000874 008 S01.81XA healed11/04 s/p fall for laceration above left eye.above left eye/about 2 cm in lengthdeni es any visual changes or headache. Pruritus of vagina 41233 003 L29.3 triamcinol one topical cream BIDkeep area clean and dry. Chronic back pain 822590 002 G89.29 tramadol 25 mg Q12 prngabapen tin 300 mg at hs Asthenia 51136280 R53.1 hx of multiple fallsambul ates with walkerPT/O T continues [id number] FRIEDA ANDERSON [address] [address] 12/04/2023 07:53:49 12/10/2023 10:21:37 Falls 490248253 R29.6 on 11/04/23wit nessed fallwith injury/lac eration above left eye.no LOCContinu e PT/OT Facial laceration 845167 008 S01.81XA healed11/04 s/p fall for laceration above left eye.above left eye/about 2 cm in lengthdeni es any visual changes or headache. Pruritus of vagina 68151 003 L29.3 triamcinol one topical cream BIDkeep area clean and dry. Chronic back pain 092163 002 G89.29 tramadol 25 mg Q12 prngabapen tin 300 mg at hs Asthenia 25668043 R53.1 hx of multiple fallsambul ates with walkerPT/O T continues Cellulitis of right lower limb 9433018932 0657920 L03.115 see hpistarted keflex on 11/30/23 for 7 days with probiotic for 10 daysencour aged to elevated lower extremitie s to elevate edemamonit or for resolution [id number] FRIEDA ANDERSON [address] [address] 12/11/2023 10:06:59 12/13/2023 13:01:47 Falls 332817129 R29.6 no recent falls reported Facial laceration 715703 008 S01.81XA healed11/04 s/p fall for laceration above left eye.above left eye/about 2 cm in lengthdeni es any visual changes or headache. Pruritus of vagina 40345 003 L29.3 triamcinol one topical cream BIDkeep area clean and dry. Chronic back pain 881449 002 G89.29 tramadol 25 mg Q12 prngabapen tin 300 mg at hs Cellulitis of right lower limb 5018387668 1559185 L03.115 resolved. [id number] FRIEDA ANDERSON [address] [address] 12/18/2023 09:20:38 12/20/2023 14:10:33 Chronic diastolic heart failure 790694481 I50.32 preserved EFeuvolemi ctorsemide held in acute care d/t hypotensio n and bradycardi c 50'smonito r BP and need to restartmon itor weights Mixed anxi ety and depressive disorder 556299518 F41.8 stable and pleasantEs citalopram Oxalate Tablet 30 mg dailymonit or for mood and behavorial changes. Type 2 jr betes mellitus 16741150 E11.21 continue monitor glucose,Li spro SSI coverageGa bapentin Capsule 300 MG at bedtime for neuropathy pain.trama dol 25 mg q12 prn [id number] FRIEDA ANDERSON [address] [address] 12/25/2023 11:16:29 12/30/2023 16:09:32 Chronic diastolic heart failure 500870469 I50.32 preserved EFBLE +1was on torsemide but was d/c in acute caremonito r weights- [facility] Mixed anxi ety and depressive disorder 453658443 F41.8 stable and pleasantEs citalopram Oxalate Tablet 30 mg dailymonit or for mood and behavorial changes. Type 2 jr betes mellitus 05103795 E11.21 continue monitor glucose,Li spro SSI coverageGa bapentin Capsule 300 MG at bedtime for neuropathy pain.trama dol 25 mg q12 prn [id number] Naomi Todd MD [address] [address] 12/26/2023 19:19:22 01/31/2024 14:21:17 Cystitis 75305480 N30.00 Completed course of meropenem 1 g q 12 hrs on 10/26.Monit or for recurrent sxs. Falls 585523431 R29.6 Continues to be a high fall risk and needs CG and sometimes an assist for transfers. No longer getting acute PT/OT services, restart as able.Cindy nue fall precaution s.Monitor for safety. Peripheral venous insufficiency 26772230 I87.2 No current sxs.Contin ue local care and elevation. Chronic di astolic heart failure 472087560 I50.32 Appears euvolemic. Monitor for need for diuretics. Monitor resp. status, fluid status, wts and labs. Chronic ob structive pulmonary disease 17021124 J43.8 Continues with no sxs.Contin ue Advair 250/50 BID and albuterol nebs q 6 hrs prnMonitor resp status. Type 2 jr betes mellitus 06222135 E11.21 Sugars were all <150 when checked for 3 days.Cindy nue gabapentin 300 MG qhs and tramadol q 12 hrs prn for neuropathy Monitor fingerstic ks prn and HgA1C q 3-6 months Paroxysmal atrial flutter 175350290 I48.92 Rate remains in good control on amiodarone 200 mg qdNo AC due to age and fall riskMonito r HR Restless l egs syndrome [id number] G25.81 Continue ropinirole 2 mg BIDMonitor sxs. Mixed anxi ety and depressive disorder 846775447 F41.8 Mood stableCont inue escitalopr am 30 mg qdMonitor mood.Consu lt psych prn Anemia of chronic disease 030736052 D63.8 Hgb has been stable.Con tinue FeSO4 325 mg qd with vitamin C 250 mg qd for absorption .Monitor labs Hyperlipidemia 11703347 E78.49 Continue atorvastat in 20 mg qdMonitor labs yearly Gastroesop hageal reflux disease 276051006 K21.9 No current sxs.Contin ue pantoprazo le 40 mg qdMonitor sxs Chronic ki dney disease 807080328 N18.1 Renal function remains WNLContinu e to avoid nephrotoxi c meds as able.Monit or labs.Renal consult prn. Chronic back pain 635963 002 G89.29 Continue tramadol 25 mg q 12 hrs prn and gabapentin 300 mg qhsMonitor sxs. [id number] FRIEDA ANDERSON [address] [place] [address] [place] [address] 01/01/2024 08:18:43 01/06/2024 15:39:22 Chronic diastolic heart failure 828039689 I50.32 preserved EFBLE +1was on torsemide but was d/c in acute caremonito r weights- [facility] to [facility] Mixed anxi ety and depressive disorder 579411268 F41.8 stable and pleasantEs citalopram Oxalate Tablet 30 mg dailymonit or for mood and behavorial changes. Type 2 jr betes mellitus 48844164 E11.21 continue monitor glucose,Li spro SSI coverageGa bapentin Capsule 300 MG at bedtime for neuropathy pain.trama dol 25 mg q12 prn Spasm 51341673 R25.2 12/31/23 nursing reported pt was having left upper leg/buttoc k pain/spasm tramadol changed from q12 to q6 and robaxin 500 mg q 6 prn addedtoday pt states that medication was effectivew ill monitor for worsening sx [id number] FRIEDA ANDERSON [address] [address] 01/08/2024 13:26:41 01/10/2024 11:20:05 Chronic diastolic heart failure 989059976 I50.32 no weight gain notedconti nue furosemide 10 mg dailymonit or labs , weightsmon itor for cardiopulm onary sx Mixed anxi ety and depressive disorder 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 Type 2 jr betes mellitus 15410153 E11.21 continue monitor glucose,co ntinue Lispro SSI coverageco ntinue Gabapentin Capsule 300 MG at bedtime for neuropathy pain.cindy nue tramadol 50 mg q 8 prn Spasm 79251509 R25.2 to LLE and glutealpai n has improvedRo baxin 500 mg discontinu e -it was ordered for short term use onlycontin ue tramadol 50 mg prn [id number] FRIEDA ANDERSON [address] [address] 01/15/2024 09:55:29 01/27/2024 16:00:52 Cervical radiculopathy 78585635 M54.12 start diclofenac gel daily and q8 prncontinu e tramadol 50 mg Q6 prncontinu e gabapentin 300 mg at hs add 300 mg QDrefer to physical therapy for eval and tx [id number] CARLTON MINA, [address] [address] 01/22/2024 09:25:19 01/28/2024 11:32:54 Cervical radiculopathy 01658196 M54.12 continue diclofenac gel daily and q8 prncontinu e tramadol 50 mg Q6 prncontinu e gabapentin 300 mg at hs add 300 mg QDper therapy patient neck pain is chronic and she was previously treated and recommende d Chronic di astolic heart failure 207625798 I50.32 monitor labs , weights , edemamonit or for cardiopulm onary sxencourag ed leg elevation/ wraps as needed. Gastroesop hageal reflux disease 008727504 K21.9 Pantoprazo le40 mg dailymonit or for gi upset. Mixed anxi ety and depressive disorder 493119180 F41.8 continue Escitalopr am Oxalate Tablet 30 mg dailymonit or for mood and behavorial changes. Type 2 jr betes mellitus 46654014 E11.21 continue monitor glucose,co ntinue Lispro SSI coverageco ntinue Gabapentin Capsule 300 MG at bedtime for neuropathy pain.cindy nue tramadol 50 mg q 8 prn [id number] CARLTON MINA [address] [address] 01/27/2024 10:53:32 02/17/2024 12:46:54 Cervical radiculopathy 08281309 M54.12 continue diclofenac gel daily and q8 prncontinu e tramadol 50 mg Q6 prncontinu e gabapentin 300 mg at hs add 300 mg QD Chronic di astolic heart failure 618719658 I50.32 monitor labs , weights , edemamonit or for cardiopulm onary sxencourag ed leg elevation/ wraps as needed. Gastroesop hageal reflux disease 580951355 K21.9 Pantoprazo le40 mg dailymonit or for gi upset. Mixed anxi ety and depressive disorder 892600552 F41.8 continue Escitalopr am Oxalate Tablet 30 mg dailymonit or for mood and behavorial changes. Type 2 jr betes mellitus 05173750 E11.21 bgl have been stablecont inue monitor glucose,co ntinue Lispro SSI coverageco ntinue Gabapentin Capsule 300 MG at bedtime for neuropathy pain.cindy nue tramadol 50 mg q 8 prn Falls 672929166 R29.6 no recent fallsConti nunell to be a high fall risk and needs CG and sometimes an assist for transfers. she has reduce functional mobility to left lower extremity due to pain in her ankle.Alba ent would benefit from an AFO to provide support to LLE/ankle and reduce pain. [id number] FRIEDA ANDERSON [address] [place] [address] 01/30/2024 10:23:09 02/04/2024 14:43:29 Bleeding from nose 434696559 R04.0 see hpistart afrin 2 spray to right nares q12 x 5days.janice loera for recurrence monitor BP/rebound congestion [id number] FRIEDA ANDERSON [address] [place] [address] 02/05/2024 09:31:19 02/11/2024 09:17:30 Bleeding from nose 888624905 R04.0 resolved. Cervical radiculopathy 02262076 M54.12 continue diclofenac gel daily and q8 prncontinu e tramadol 50 mg Q6 prncontinu e gabapentin 300 mg at hs add 300 mg QDper therapy patient neck pain is chronic and she was previously treated and recommende d Chronic di astolic heart failure 342668136 I50.32 monitor labs , weights , edemamonit or for cardiopulm onary sxencourag ed leg elevation/ wraps as needed. Gastroesop hageal reflux disease 414691973 K21.9 Pantoprazo le40 mg dailymonit or for gi upset. Mixed anxi ety and depressive disorder 440980230 F41.8 continue Escitalopr am Oxalate Tablet 30 mg dailymonit or for mood and behavorial changes. Type 2 jr betes mellitus 61889922 E11.21 continue monitor glucose,co ntinue Lispro SSI coverageco ntinue Gabapentin Capsule 300 MG at bedtime for neuropathy pain.cindy nue tramadol 50 mg q 8 prn [id number] MD DARRIN Perry [address] [address] 02/28/2024 13:56:25 03/10/2024 11:09:37 Pain in left foot [id number] 37476 M79.672 With new deformity of left great [...] q 8 hrs prn for pain. Diarrhea 58536085 R19.7 Only has happened one time so far, possibly from stress.Ord ered imodium prnMonitor [id number] FRIEDA ANDERSON [address] [address] 03/04/2024 14:57:51 03/10/2024 11:43:05 Pain in left foot 8397729966 98828 M79.672 deformity of left great toe, with [...] for pain. Blister of toe without infection 11899576 S90.425A continue warm soaks as aboveclean se left 2nd toe with soap and warm water, hydrogen peroxideap ply petroleum and cover with gauze or non stick dressing daily and prnmonitor for healing. [id number] FRIEDA ANDERSON [address] [address] 03/06/2024 14:42:26 03/10/2024 12:16:05 Mixed anxiety and depressive disorder 231340382 F41.8 continue Escitalopr am Oxalate Tablet 30 mg dailywill adjust trazodone and increased from 12.5 mg to 25 mg scheduled at HS per psych rec.and continue prn trazodone 12.5 mg bid prn, anxiety for 14 days.monit or for mood and behavorial changes. [id number] FRIEDA ANDERSON [address] [place] [address] 03/10/2024 10:17:01 03/16/2024 15:45:17 Pain in left foot 3832661669 32144 M79.672 deformity of left great toe, with [...] coming next week, will consult Dr. Tanner [phone] can have wound care see her for further advice- will be seen by wound on ontinu e APAP 650 mg q 6 hrs prn and tramadol 50 mg q 8 hrs prn for pain.she does not have hx of gout but will order uric acid d/t her still having pain despite abx use for 4 days. Blister of toe without infection 62147095 S90.425A continue warm soaks as aboveclean se left 2nd toe with soap and warm water, hydrogen peroxidedr essing changes to Alginate/D CD QD [id number] FRIEDA ANDERSON [address] [place] [address] 03/16/2024 09:19:11 03/19/2024 16:19:43 Pain in left foot 1353851181 56885 M79.672 baseline deformity due to hammer toeabx [...] infection. Mixed anxi ety and depressive disorder 428208662 F41.8 continue Escitalopr am Oxalate Tablet 30 mg dailyrepor ts although medication s have been helpful that she continues with difficultl y falling asleepand evening anxiety.in cre[facility]z[place] to 12.5 mg q12 prnmonitor for mood and behavorial changes. [id number] FRIEDA ANDERSON [address] [address] 03/17/2024 10:40:42 03/20/2024 08:44:03 Bleeding from nose 754877053 R04.0 minor nasal bleeding after blowing her nosewill discussed avoiding nose blowing, gently sniff insteadavo id picking nose or rubbing noseafrin nasal 1 spray BID prnsaline nasal spray BID Pain of to e of left foot 0216601692 36286 M79.675 reports pain to left great toe and second great toenailini tially flinching on exam when toe(s) were touched , states pain requesting toenail to be cut on 2ndshe provided clippers, I trimmed and file all toenail, she reports toes feeling much betterther e was no observatio n of facial grimacing, flinching or pulling away during procedure. [id number] Naomi Todd MD [address] [address] 03/30/2024 16:40:06 04/01/2024 10:48:39 Falls 585856125 R29.6 Continues to be a high fall risk.Getti ng OT for mobility and safety, primarily wheelchair level.Cont inue fall precaution s.Monitor for safety. Peripheral venous insufficiency 37280727 I87.2 No current sxs.Contin ue local care and elevation. Chronic di astolic heart failure 375046794 I50.32 Appears euvolemic. Continue furosemide 10 mg qdMonitor resp. status, fluid status, wts and labs. Chronic ob structive pulmonary disease 56279060 J43.8 Continues with no sxs.Contin ue Advair 250/50 BID and albuterol nebs q 6 hrs prnMonitor resp status. Type 2 jr betes mellitus 07100753 E11.21 Stable on no meds.Last HgA1C was 6.1 in 06/2023.Con tinue gabapentin 300 MG qhs and tramadol qhs scheduled and BID prn for neuropathy Monitor fingerstic ks prn and HgA1C q 3-6 months Paroxysmal atrial flutter 423405887 I48.92 Rate remains in good control on amiodarone 200 mg qdNo AC due to age and fall riskMonito r HR Restless l egs syndrome 68738709 G25.81 Continue ropinirole 2 mg BIDMonitor sxs. Mixed anxi ety and depressive disorder 441973434 F41.8 Mood sl. down due to pain not improving. Continue escitalopr am 30 mg qdMonitor mood.Consu lt psych prn Anemia of chronic disease 572376994 D63.8 Hgb remains stable.Con tinue FeSO4 325 mg qd with vitamin C 250 mg qd for absorption .Monitor labs Hyperlipidemia 34439444 E78.49 Continue atorvastat in 20 mg qdMonitor labs yearly Gastroesop hageal reflux disease 336146197 K21.9 No current sxs.Contin ue pantoprazo le 40 mg qdMonitor sxs Chronic ki dney disease 857362563 N18.2 Renal function remains stableCont inue to avoid nephrotoxi c meds as able.Monit or labs.Renal consult prn. Chronic back pain 661411 002 G89.29 Continue meds as above.Janice tor sxs. Bleeding from nose 96783 6005 R04.0 Resolved. Pain of to e of left foot 4069146252 81425 M79.675 No improvemen t since toenails cut on 03/17.Left 2nd toe still red and tender.Esteban leung have nursing set up appt with Dr. Lu Holder who has offices in [facility] and [place]. [place] # is [phone] local care until then. Using padding between toes to keep the pressure off.Monito r for signs of infection. Will schedule hs tramadol and keep 50 mg BID prn [id number] FRIEDA ANDERSON DARRIN STYLES [address] [place] [address] 04/03/2024 11:03:23 04/28/2024 07:31:02 Cellulitis of foot 447391057 L03.119 left footsuspec gloria do to sx.recentl y treated for cellulitis left great toe with doxycyclin ewill start cephalexin 250 mg Q 6 hr for 5 days.will add probiotic BID for 7 daysmonito r for resolution . [id number] MD DARRIN Perry JENSEN [address] [place] [address] 04/13/2024 17:19:14 04/28/2024 08:01:43 Osteomyelitis 79741892 M86.272 Continue ertapenem 1 gm IV qd [...] has offices in [facility] and [place]. [place] # is [place] [id number] R29.6 Continues to be a high fall risk.Able to restart rehab after hospitaliz ation.Need s PT/OT for strengthen ing, balance, gait training, safety and function.C ontinue fall precaution s.Monitor for safety. Chronic di astolic heart failure 306532738 I50.32 Appears euvolemic. Continue furosemide 10 mg qdMonitor resp. status, fluid status, wts and labs. Chronic ob structive pulmonary disease 43196540 J43.8 Continues with no sxs.Contin ue Advair 250/50 BID and albuterol nebs q 6 hrs prnMonitor resp status. Type 2 jr betes mellitus 80959231 E11.21 Sugars inpt were all <100Last HgA1C was 6.1 in 06/2023.Con tinue gabapentin 300 MG qhs and other pain meds as above for neuropathy .Monitor fingerstic ks prn and HgA1C q 3-6 months Paroxysmal atrial flutter 920383918 I48.92 Rate remains in good control on amiodarone 200 mg qdNo AC due to age and fall riskMonito r HR Restless l egs syndrome 69067264 G25.81 Continue ropinirole 2 mg BIDMonitor sxs. Mixed anxi ety and depressive disorder 034032386 F41.8 Mood sl. down due to pain not improving. Continue escitalopr am 30 mg qd, trazadone 25 mg qhs and 12.5 mg BID prn.Monito r mood.Consu lt psych prn Anemia of chronic disease 185288299 D63.8 Hgb remains stable.Con tinue FeSO4 325 mg qd with vitamin C 250 mg qd for absorption .Monitor labs Hyperlipidemia 06298909 E78.49 Continue atorvastat in 20 mg qdMonitor labs yearly Gastroesop hageal reflux disease 201368341 K21.9 No current sxs.Contin ue pantoprazo le 40 mg qdMonitor sxs Chronic ki dney disease 477594884 N18.2 Renal function remains stableCont inue to avoid nephrotoxi c meds as able.Monit or labs.Renal consult prn. Chronic back pain 085442 002 G89.29 Continue meds as above.Janice tor sxs. Peripheral venous insufficiency 60796854 I87.2 No current sxs.Contin ue local care and elevation. [id number] FRIEDA ANDERSON JENSEN [address] [place] [address] 04/16/2024 08:54:52 04/28/2024 08:26:12 Osteomyelitis 09150384 M86.272 Continue ertapenem 1 gm IV qd [...] Lu Holder who has offices in [facility], [place] and [place]. [place] # is [place] [id number] R29.6 Continues to be a high fall risk.Able to restart rehab after hospitaliz ation.Need s PT/OT for strengthen ing, balance, gait training, safety and function.C ontinue fall precaution s.Monitor for safety. Chronic di astolic heart failure 122951660 I50.32 Appears euvolemic. Continue furosemide 10 mg qdMonitor resp. status, fluid status, wts and labs. Chronic ob structive pulmonary disease 42042290 J43.8 Continues with no sxs.Contin ue Advair 250/50 BID and albuterol nebs q 6 hrs prnMonitor resp status. Paroxysmal atrial flutter 808959006 I48.92 Rate remains in good control on amiodarone 200 mg qdNo AC due to age and fall riskMonito r HR Restless l egs syndrome 24474646 G25.81 Continue ropinirole 2 mg BIDMonitor sxs. Mixed anxi ety and depressive disorder 998323818 F41.8 Continue escitalopr am 30 mg qd, trazadone 25 mg qhs and 12.5 mg BID prn.Monito r mood.Consu lt psych prn Anemia of chronic disease 894624500 D63.8 Continue FeSO4 325 mg qd with vitamin C 250 mg qd for absorption .Monitor labs Hyperlipidemia 12194122 E78.49 Continue atorvastat in 20 mg qdMonitor labs yearly Gastroesop hageal reflux disease 138711171 K21.9 No current sxs.Contin ue pantoprazo le 40 mg qdMonitor sxs [id number] FRIEDA ANDERSON JENSEN [address] [place] [address] [place] [address] 04/20/2024 10:04:50 04/28/2024 08:59:08 Osteomyelitis 38527996 M86.272 left foot 2nd toe with woundgrima [...] has offices in [facility] and [place]. Luis Adrian # is [phone] Chronic di astolic heart failure 393612992 I50.32 Appears euvolemic. Continue furosemide 10 mg qdMonitor resp. status, fluid status, wts and labs. Chronic ob structive pulmonary disease 90606389 J43.8 breathing easy and unlabored. Continue Advair 250/50 BID and albuterol nebs q 6 hrs prnMonitor resp status. Mixed anxi ety and depressive disorder 435659240 F41.8 her mood is normal reports eating and drinking ok.Continu e escitalopr am 30 mg qd, trazadone 25 mg qhs and 12.5 mg BID prn.Monito r mood.Consu lt psych prn [id number] Naomi Todd MD [address] [place] [address] 04/23/2024 22:13:47 04/30/2024 18:09:13 Osteomyelitis 75273033 M86.272 Continue ertapenem 1 gm IV qd [...] Has offices in [facility] and [place]. [place] # is Falls [id number] R29.6 Is still a high fall risk.Needs PT/OT for strengthen ing, balance, gait training, safety and function.C ontinue fall precaution s.Monitor for safety. Chronic di astolic heart failure 730114271 I50.32 Remains euvolemic. Continue furosemide 10 mg qdMonitor resp. status, fluid status, wts and labs. Chronic ob structive pulmonary disease 48803734 J43.8 Continues with no sxs.Contin ue Advair 250/50 BID and albuterol nebs q 6 hrs prnMonitor resp status. Type 2 jr betes mellitus 59283814 E11.21 Sugars were all good, so not being checked regularly. Last HgA1C was 6.1 in 06/2023.Con tinue gabapentin 300 MG qhs and other pain meds as above for neuropathy .Monitor fingerstic ks prn and HgA1C q 3-6 months [id number] GOLDIE TREVIZO [address] [place], [place] [address] 04/30/2024 08:46:54 05/02/2024 09:31:27 Osteomyelitis 60941750 M86.272 left foot 2nd toe with wound, [...] Lu Holder who has offices in [facility], [place] and [place]. [place] # is Chronic di astolic heart failure 602531208 I50.32 Appears euvolemic. Continue furosemide 10 mg qdMonitor resp. status, fluid status, wts and labs. Chronic ob structive pulmonary disease 73712291 J43.8 breathing easy and unlabored. Continue Advair 250/50 BID and albuterol nebs q 6 hrs prnMonitor resp status. Mixed anxi ety and depressive disorder 259685616 F41.8 her mood is normal reports eating and drinking ok.Continu e escitalopr am 30 mg qd, trazadone 25 mg qhs and 12.5 mg BID prn.Monito r mood.Consu lt psych prn Gastroesop hageal reflux disease 979378788 K21.9 Reporting some nausea after eating, unsure if may be related to abx use. Discused with nsg., will monitor.Co ntinue pantoprazo le 40 mg qdMonitor sxs Restless l egs syndrome 85487480 G25.81 Continue requip, very helpful Headache 05188905 R51.9 history of, including migraines, for years.Most headaches in the forehead area and above eyes.APAP discussed, helps, would like it sched. if possible.Eloy bevaersg. who also feels it would be a good idea, so will sched. 650 mg tid.Monito r. [id number] FRIEDA ANDERSON [address] [place] [address] rd [place] [address] 05/05/2024 11:02:17 05/06/2024 15:43:52 Osteomyelitis 08722287 M86.272 left foot 2nd toe with wound, [...] Lu Holder who has offices in [facility], [place] and [place]. [place] # is Chronic di astolic heart failure 014997459 I50.32 Appears euvolemic. Continue furosemide 10 mg qdMonitor resp. status, fluid status, wts and labs. Chronic ob structive pulmonary disease 16969287 J43.8 breathing easy and unlabored. Continue Advair 250/50 BID and albuterol nebs q 6 hrs prnMonitor resp status. Mixed anxi ety and depressive disorder 827896245 F41.8 her mood is normal reports eating and drinking ok.Continu e escitalopr am 30 mg qd, trazadone 25 mg qhs and 12.5 mg BID prn.Monito r mood.Consu lt psych prn Gastroesop hageal reflux disease 091428038 K21.9 Continue pantoprazo le 40 mg qdMonitor sxs Restless l egs syndrome 07558271 G25.81 Continue requip, very helpful Headache 93195227 R51.9 history of, including migraines, for years.Most headaches in the forehead area and above eyes.APAP discussed, helps, would like it sched. if possible.Eloy mo. who also feels it would be a good idea, so will sched. 650 mg tid.Monito r. [id number] FRIEDA ANDERSON [address] [place] [address] rd [place] [address] 05/07/2024 10:05:01 05/11/2024 16:11:56 Osteomyelitis 54685405 M86.272 Continue ertapenem 1 gm IV qd [...] has offices in [facility] and [place]. [place] # is Chronic di astolic heart failure 101357027 I50.32 Appears euvolemic. Continue furosemide 10 mg qdMonitor resp. status, fluid status, wts and labs. Chronic ob structive pulmonary disease 20880517 J43.8 breathing easy and unlabored. Continue Advair 250/50 BID and albuterol nebs q 6 hrs prnMonitor resp status. Mixed anxi ety and depressive disorder 854072221 F41.8 Continue escitalopr am 30 mg qd, trazadone 25 mg qhs and 12.5 mg BID prn.Monito r mood.Consu lt psych prn Gastroesop hageal reflux disease 480761657 K21.9 Continue pantoprazo le 40 mg qdMonitor sxs Restless l egs syndrome 02492230 G25.81 Continue requip, very helpful Headache 78650171 R51.9 continue tylenol 650 mg prn.encour age to increase oral hydration. [id number] FRIEDA ANDERSON DARRIN STYLES [address] [place] [address] [place] [address] 05/11/2024 16:30:45 05/12/2024 13:09:07 Osteomyelitis 97606582 M86.272 Has been tolerating IV therapy.Co ntinue [...] Lu Holder who has offices in [facility], [place] and [place]. [place] # is Chronic di astolic heart failure 524411709 I50.32 euvolemic. Continue furosemide 10 mg qdMonitor resp. status, fluid status, wts and labs. Chronic ob structive pulmonary disease 09794134 J43.8 Continue Advair 250/50 BID and albuterol nebs q 6 hrs prnMonitor resp status. Mixed anxi ety and depressive disorder 601186203 F41.8 Continue escitalopr am 30 mg qd, trazadone 25 mg qhs and 12.5 mg BID prn.mood is good today. pleasant on exam.Monit or moodConsul t psych prn Gastroesop hageal reflux disease 149914323 K21.9 Continue pantoprazo le 40 mg qdMonitor sxs Restless l egs syndrome 46568877 G25.81 Continue requip 2 mg bid Headache 37806694 R51.9 continue tylenol 650 mg prn.encour age to increase oral hydration. [id number] FRIEDA ANDERSON DARRIN STYLES [address] [place] [address] [place] [address] 05/15/2024 10:17:08 05/19/2024 11:08:19 Osteomyelitis 92382152 M86.272 Has been tolerating IV therapy.Co ntinue ertapenem 1 gm IV qd until ontin ue probiotic BIDContinu e local care as ordered.Mo nitor labs (CBC, CMP, ESR, and CRP weekly until 05/18) and skin condition. Chronic di astolic heart failure 151770342 I50.32 euvolemic. Continue furosemide 10 mg qdMonitor resp. status, fluid status, wts and labs. Chronic ob structive pulmonary disease 11964991 J43.8 Continue Advair 250/50 BID and albuterol nebs q 6 hrs prnMonitor resp status. Mixed anxi ety and depressive disorder 476621945 F41.8 Continue escitalopr am 30 mg qd, trazadone 25 mg qhs and 12.5 mg BID prn.mood is good today. pleasant on exam.Monit or moodConsul t psych prn Gastroesop hageal reflux disease 909130764 K21.9 Continue pantoprazo le 40 mg qdthere has been no reported GI upset. Restless l egs syndrome 72535797 G25.81 Continue requip 2 mg bid Headache 73034119 R51.9 continue tylenol 650 mg prn.encour age to increase oral hydration. [id number] FRIEDA ANDERSON JENSEN [address] [place] [address] [place] [address] 05/18/2024 08:44:49 05/19/2024 11:16:27 Osteomyelitis 82167859 M86.272 completed abxcontinu e probiotic BIDContinu e local care as ordered.f/ u appt. with ID later today Chronic di astolic heart failure 564917732 I50.32 stableCont inue furosemide 10 mg qdMonitor resp. status, fluid status, wts and labs. Chronic ob structive pulmonary disease 48698480 J43.8 breathing easy and unlabored. Continue Advair 250/50 BID and albuterol nebs q 6 hrs prnMonitor resp status. Mixed anxi ety and depressive disorder 476447406 F41.8 Continue escitalopr am 30 mg qd, trazadone 25 mg qhs and 12.5 mg BID prn.Monito r moodConsul t psych prn Gastroesop hageal reflux disease 144849694 K21.9 Continue pantoprazo le 40 mg qdthere has been no reported GI upset. Restless l egs syndrome 02244591 G25.81 Continue requip 2 mg bid Headache 25495759 R51.9 continue tylenol 650 mg prn.encour age to increase oral hydration. [id number] FRIEDA ANDERSON [address] [address] 05/25/2024 09:58:25 05/29/2024 09:27:36 Osteomyelitis 44132088 M86.272 completed abx Chronic di astolic heart failure [id number] I50.32 euvolemicC ontinue furosemide 10 mg qdMonitor resp. status, fluid status, wts and labs. Chronic ob structive pulmonary disease 92709875 J43.8 breathing easy and unlabored. Continue Advair 250/50 BID and albuterol nebs q 6 hrs prnMonitor resp status. Mixed anxi ety and depressive disorder 844558039 F41.8 Continue escitalopr am 30 mg qd, trazadone 25 mg qhs and 12.5 mg BID prn.Monito r moodConsul t psych prn Gastroesop hageal reflux disease 747946203 K21.9 Continue pantoprazo le 40 mg qdthere has been no reported GI upset. Restless l egs syndrome 23482463 G25.81 Continue requip 2 mg bid Headache 19100258 R51.9 continue tylenol 650 mg prn.encour age to increase oral hydration. [id number] FRIEDA ANDERSON [address] [address] 06/01/2024 09:58:25 06/03/2024 09:34:34 Osteomyelitis 50574365 M86.272 completed abx Chronic di astolic heart failure 446051426 I50.32 euvolemicC ontinue furosemide 10 mg qdMonitor resp. status, fluid status, wts and labs. Chronic ob structive pulmonary disease 88317611 J43.8 breathing easy and unlabored. Continue Advair 250/50 BID and albuterol nebs q 6 hrs prnMonitor resp status. Mixed anxi ety and depressive disorder 622571840 F41.8 mood is stableCont inue escitalopr am 30 mg qd, trazadone 25 mg qhs and 12.5 mg BID prn.Monito r moodConsul t psych prn [id number] FRIEDA ANDERSON DARRIN KAME [address] [place] [address] [place]SS[place] [address] 5 06/03/2024 11:42:59 06/09/2024 13:21:42 Osteomyelitis 41840749 M86.272 completed abx Chronic di astolic heart failure 438249039 I50.32 euvolemicC ontinue furosemide 10 mg qdMonitor resp. status, fluid status, wts and labs. Chronic ob structive pulmonary disease 45422805 J43.8 breathing easy and unlabored. Continue Advair 250/50 BID and albuterol nebs q 6 hrs prnMonitor resp status. Mixed anxi ety and depressive disorder 888121061 F41.8 mood is stableCont inue escitalopr am 30 mg qd, trazadone 25 mg qhs and 12.5 mg BID prn.Monito r moodConsul t psych prn [id number] FRIEDA ANDERSON [facility] JENSEN [address] [place] [address] [place]SS[place] [address] 5 06/09/2024 10:12:41 06/11/2024 14:30:47 Osteomyelitis 34529977 M86.272 06/09:clinic ally she is stableleft foot [...] dry and apply bacitracin with DCD BID. [id number] FRIEDA ANDERSON DARRIN STYLES [address] [place] [address] [place] [address] 5 06/11/2024 11:46:23 06/15/2024 11:21:06 Osteomyelitis 94480909 M86.272 06/09:clinic ally she is stableleft foot [...] a second consult with ortho. appt 06/18/24. [id number] FRIEDA ANDERSON [address] [address] 06/15/2024 09:48:35 06/17/2024 10:12:04 Osteomyelitis 60414674 M86.272 06/09:clinic ally she is stableleft foot [...] appt 06/18/24. Chronic di astolic heart failure 457139782 I50.32 euvolemicw eight stableCont inue furosemide 10 mg qdMonitor resp. status, fluid status, wts and labs. Chronic ob structive pulmonary disease 59925808 J43.8 breathing easy and unlabored. Continue Advair 250/50 BID and albuterol nebs q 6 hrs prnMonitor resp status. [id number] FRIEDA ANDERSON [facility] [address] [place] [phone] 06/22/2024 08:47:12 06/24/2024 08:50:27 Osteomyelitis 00014716 M86.272 06/09:clinic ally she is stableleft foot [...] gaines. 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 Most of the women she joins at activities reside on same unit, she is happy about this.Cindy nue escitalopr am 30 mg qd, trazadone 25 mg qhs and 12.5 mg BID prn.Monito r moodConsul t psych prn [id number] FRIEDA ANDERSON [address] [place] [address], [place] [address] 5 06/29/2024 10:45:15 06/30/2024 13:34:02 Osteomyelitis 04471718 M86.272 06/09:clinic ally she is stableleft foot [...] ortho. Mixed anxi ety and depressive disorder 328771303 F41.8 mood is stablerece nt room change transition to LTC, adjusting well. Most of the women she joins at activities reside on same unit, she is happy about this.Cindy nue escitalopr am 30 mg qd, trazadone 25 mg qhs and 12.5 mg BID prn.Monito r moodConsul t psych prn Chronic di astolic heart failure 615228208 I50.32 euvolemicw eight stable noted 166-168Con tinue furosemide 10 mg qdMonitor resp. status, fluid status, wts and labs. [id number] FRIEDA ANDERSON JENSEN [facility] [place]SS[place] [phone] 5 07/02/2024 11:07:08 07/03/2024 12:50:28 Mixed anxiety and depressive disorder 522112678 F41.8 mood is stable- she denies feeling hopeless, lonely or isolated.C ontinue escitalopr am 30 mg qd, trazadone 25 mg qhs and 12.5 mg BID prn.Monito r mood for negative changes.pt encouraged to continue to engage in social activities .Consult psych prn Chronic di astolic heart failure 827817330 I50.32 euvolemic- she denies any chest pain or shortness of breathweig ht stable noted 166-168Con tinue furosemide 10 mg qdMonitor resp. status, fluid status, wts and labs. Hammer toe 228563350 M20 .42 left foot 2 nd toe-recent ly completed IV antibiotic s ertapenem 1 gm daily for 6 weeks for osteomyeli tis. she continues to have discomfort . follow up xray results: no acute abnormalit y is seen in the left foot. [id number] FRIEDA ANDERSON [facility] [address] [place] [phone] 5 07/07/2024 14:44:04 07/08/2024 11:39:59 Hammer toe 673458371 M20.42 left foot 2 nd toe-recent ly completed IV antibiotic s ertapenem 1 gm daily for 6 weeks for osteomyeli tis. she continues to have discomfort . follow up xray results: no acute abnormalit y is seen in the left foot. Mixed anxi ety and depressive disorder 927931198 F41.8 mood is stable- she denies feeling hopeless, lonely or isolated.C ontinue escitalopr am 30 mg qd, trazadone 25 mg qhs and 12.5 mg BID prn.Monito r mood for negative changes.pt encouraged to continue to engage in social activities .followed by psych prn recently seen 07/06 no new recommenda tion. Chronic di astolic heart failure 015193744 I50.32 euvolemic- she denies any chest pain or shortness of breathweig ht stable noted 166-168Con tinue furosemide 10 mg qdMonitor resp. status, fluid status, wts and labs. [id number] FRIEDA ANDERSON [address] [address] 07/13/2024 08:31:31 07/14/2024 11:43:51 Hammer toe 650313852 M20.42 07/13:stabl e, no worsening sx notedleft foot 2 nd toe-recent ly completed IV antibiotic s ertapenem 1 gm daily for 6 weeks for osteomyeli tis. she continues to have discomfort . follow up xray results: no acute abnormalit y is seen in the left foot. Mixed anxi ety and depressive disorder 566978049 F41.8 07/13: StableCont inue escitalopr am 30 mg qd, trazadone 25 mg qhs and 12.5 mg BID prn.Monito r mood for negative changes.pt encouraged to continue to engage in social activities .followed by psych prn recently seen 07/06 no new recommenda tion. Chronic di astolic heart failure 547647589 I50.32 07/13: stable.euv olemic- she denies any chest pain or shortness of breathweig ht stable noted 166-168Con tinue furosemide 10 mg qdMonitor resp. status, fluid status, wts and labs. [id number] FRIEDA ANDERSON [address] [address] 07/16/2024 10:15:02 07/21/2024 15:43:58 Hammer toe 314333829 M20.42 07/13:stabl e, no worsening sx notedleft foot 2 nd toe-recent ly completed IV antibiotic s ertapenem 1 gm daily for 6 weeks for osteomyeli tis. she continues to have discomfort . follow up xray results: no acute abnormalit y is seen in the left foot. Mixed anxi ety and depressive disorder 693354199 F41.8 Stable with delusional thoughts, she thinks staff is stealing her clothes.Co ntinue escitalopr am 30 mg qd, trazadone 25 mg qhs and 12.5 mg BID prn.Monito r mood for negative changes.pt encouraged to continue to engage in social activities .followed by psych prn recently seen 07/06 no new recommenda tion. Chronic di astolic heart failure 529042951 I50.32 stable.euv olemic- she denies any chest pain or shortness of breathweig ht stable noted 166-168Con tinue furosemide 10 mg qdMonitor resp. status, fluid status, wts and labs. [id number] FRIEDA ANDERSON [address] [place] [address] 07/20/2024 11:57:24 07/21/2024 16:08:03 Hammer toe 734471144 M20.42 stable, no worsening sx notedleft foot 2 nd toe-recent ly completed IV antibiotic s ertapenem 1 gm daily for 6 weeks for osteomyeli tis. she continues to have discomfort . follow up xray results: no acute abnormalit y is seen in the left foot. Mixed anxi ety and depressive disorder 323602821 F41.8 07/19: seen by psychotherapist social worker will review notes when available. Stable with delusional thoughts, she thinks staff is stealing her clothes.Co ntinue escitalopr am 30 mg qd, trazadone 25 mg qhs and 12.5 mg BID prn.Monito r mood for negative changes.pt encouraged to continue to engage in social activities .followed by psych prn recently seen 07/06 no new recommenda tion. Chronic di astolic heart failure 269433005 I50.32 stable.euv olemic- she denies any chest pain or shortness of breathweig ht stable noted 166-168Con tinue furosemide 10 mg qdMonitor resp. status, fluid status, wts and labs. [id number] FRIEDA ANDERSON [facility] [address] [place] [address] 1 07/23/2024 11:46:33 07/24/2024 11:44:07 Hammer toe 454385214 M20.42 stable, no worsening sx notedleft foot 2 nd toe-recent ly completed IV antibiotic s ertapenem 1 gm daily for 6 weeks for osteomyeli tis. she continues to have discomfort . follow up xray results: no acute abnormalit y is seen in the left foot. Mixed anxi ety and depressive disorder 152719251 F41.8 StableCont inue escitalopr am 30 mg qd, trazadone 25 mg qhs and 12.5 mg BID prn.Monito r mood for negative changes.pt encouraged to continue to engage in social activities .followed by psych prn recently seen 07/06 no new recommenda tion. Chronic di astolic heart failure 164361406 I50.32 stable.euv olemic- she denies any chest pain or shortness of breathweig ht stable noted 166-168Con tinue furosemide 10 mg qdMonitor resp. status, fluid status, wts and labs. Chronic ob structive pulmonary disease 15350672 J43.8 breathing easy and unlabored. Continue Advair 250/50 BID and albuterol nebs q 6 hrs prnMonitor resp status. [id number] FRIEDA ANDERSON [address] [address] 09/10/2024 08:43:17 09/11/2024 12:05:09 Mixed anxiety and depressive disorder 758413132 F41.8 mild emotional distress, crying during assessment 2/2 ble painContin ue escitalopr am 30 mg qd, trazadone 25 mg qhs and 12.5 mg BID prn.psych prn Chronic di astolic heart failure 808857994 I50.32 euvolemic- she denies any chest pain or shortness of breathweig ht stableCont inue furosemide 20 mg qdMonitor resp. status, fluid status, wts and labs. Chronic ob structive pulmonary disease 54676760 J43.8 breathing easy and unlabored. Continue Advair 250/50 BID and albuterol nebs q 6 hrs prnMonitor resp status. Neuropathy 905474846 G62 .9 see hpiBLE without sx of infectiono n gabapentin 300 mg at hs -she has been having increasing sx and weakness, requiring 2 people assist.dis cussed increasing gabapentin to BID and re eval in a few days for effect.hx diabetes/n ot on meds/ will get updated A1c. (06/2023 noted 6.1) Restless l egs syndrome 41701423 G25.81 Continue requip 2 mg bid [id number] FRIEDA ANDERSON [address] [address] 09/14/2024 10:23:24 09/15/2024 14:23:56 Neuropathy 486617801 G62.9 BLE without sx of infectiong abapentin 300 mg BIDshe has been having increasing sx and weakness, requiring 2 people assist.hx diabetes/n ot on meds/ will get updated A1c. (06/2023 noted 6.1) - labs ord for today not completed will re-order. Restless l egs syndrome 36456447 G25.81 Continue requip 2 mg bid [id number] FRIEDA ANDERSON [facility] JENSEN [address] [place] [address] [place] [address] 10/02/2024 11:01:09 10/05/2024 13:31:21 Pain of left ankle joint [id number] 8376260 M25.572 localizedn on pitting left ankle swelling, no redness or warmthno foot discolorat ion, color is normal+CMS , pain with ROMplan for xray, labs with uric acid,apply ice 15 minutes to ankle TIDapply tyrone wrap compressio n dailywill schedule tylenol 650 mg TID and Motrin 400 mg BIDPT/OT eval and tx [id number] FRIEDA ANDERSON DARRIN JENSEN [address] [place] [phone] 10/05/2024 11:01:37 10/06/2024 13:54:09 Pain of left ankle joint 2567691892 9427795 M25.572 localized/ swelling noted to have improved [...] BIDPT/OT eval and tx Contusion of thigh 09679 003 S70.10XA see hpi/left thightende r to touchmonit or as it healsdiscu ssed with nursingcon tinue scheduled tylenol [id number] MD DARRIN Roe [address] [place] [address] [place] [address] 11/25/2024 11:52:19 11/26/2024 15:26:27 Acute low back pain 944354077 M54.59 acute on chronic low back pain with point tenderness lumbar spinex ray to eval for concern vert comp fxx ray left hipchange tramadol 50 mg to q 6 prnmonitor need for ortho eval Chronic di astolic heart failure 451674359 I50.32 euvolemic- she denies any chest pain or shortness of breathweig ht stableCont inue furosemide 20 mg qdMonitor resp. status, fluid status, wts and labs. 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.8 increased confusion at hospital is currently A and O x 3 with poor short term recall Asthenia 09996142 R53.1 therapy to re-evaluat e to determine baseline Cardiac en zymes outside reference range 957706963 R89.0 eval by cards now onasa 81 mg qdlipitor 40 mg qdmonitor sx Essential hypertension 52043975 I10 lasix 20 mg qd prn for weight gain associated with chfstarted on norvasc 2.5 mg qdmonitor bp and need to titrate Chronic di astolic heart failure 533891057 I50.32 Continue furosemide 20 mg qd prn weight gain Paroxysmal atrial flutter 942067046 I48.3 amiodarone 200 mg qdmonitor rate control Impaired cognition 70463 6002 R41.89 question of poor insight prior to above infectionb eing eval by psych for competency evalwill await recs [id number] MD DARRIN Roe [address] [place] [address] 5 01/06/2025 11:35:48 01/08/2025 08:30:51 Toxic metabolic encephalopathy 945786603 G92.8 see aboveincre ased confusion at hospital is currently A and O x 3 with poor short term recallnow invokedmon itor level of insight Impaired cognition 88949 6002 R41.89 appreciate psych eval and recswill invoke HCPmonitor level of insight as patient is alert and oriented to person place and time which she states easily Asthenia 81076798 R53.1 coordinate with therapymon itor fall risk [id number] DANIELLE GOFF CNP [address] [place] [address] 01/13/2025 11:16:32 01/20/2025 11:19:42 Chronic diastolic heart failure 425945036 I50.32 stable, euvolemic- she denies any chest pain or shortness of breathweig ht stable 160-170Con tinue furosemide 20 mg qdMonitor resp. status, fluid status, wts and labs. Chronic ob structive pulmonary disease 34762316 J43.8 stablemoni tor respirator y status and albuterol utilizatio n Gastroesop hageal reflux disease 316556992 K21.9 protonix 40 mg qdmonitor sx control Mixed anxi ety and depressive disorder 587222038 F41.8 mood stable.Con tinue escitalopr am 30 mg qd, trazadone 25 mg qhs and 12.5 mg BID prn.psych prn Restless l egs syndrome 06026532 G25.81 StableCont inue requip 2 mg bid Impaired cognition 74246 6002 R41.89 appreciate psych eval and recsHCP invoked.mo nitor level of insight as patient is alert and oriented to person place and time which she states easily Toxic meta bolic encephalopathy 464003689 G92.8 see aboveincre ased confusion at hospital is currently A and O x 3 with poor short term recallnow invokedmon itor level of insight Asthenia 07667085 R53.1 coordinate with therapymon itor fall risk Respirator y syncytial virus infection 03284260 B33.8 [id number] No acute respirator y distress noted.Cont inue supportive care.Monit or respirator y status. [id number] FRIEDA ANDERSON [facility] [address] [place] [address] [place]SS[place] [address] 04/14/2025 05:51:03 04/16/2025 13:06:59 Chronic diastolic heart failure 978781919 I50.32 Continue furosemide 20 mg qdMonitor resp. status, fluid status, wts and labs. Chronic ob structive pulmonary disease 93390537 J43.8 stablemoni tor respirator y status and albuterol utilizatio n Gastroesop hageal reflux disease 867081928 K21.9 protonix 40 mg qdmonitor sx control Mixed anxi ety and depressive disorder 486441858 F41.8 Continue escitalopr am 30 mg qd, trazadone 25 mg qhs and 12.5 mg BID prn.psych prn Restless l egs syndrome 75327823 G25.81 Continue requip 2 mg bid Impaired cognition 26359 6002 R41.89 ? underlying dementiawa x and wane with confusione xpect decline Chronic ki dney disease 153993275 N18.2 Renal function is at baselinemo nitor labsavoid nephrotoxi c drugs Essential hypertension 28265358 I10 lasix 20 mg qd prn for [...] [place] [employer] Shreya M Gravel [id number] Shreya Gravel 04/14/2025 2 [place] [id number] Shreya Gravel [id number] Shreya Gravel Notes Date Note Type Note Provider Name and Address Organization Details Recorded Time 11/25/2024 text/html Patient is a 89 yo female resident due for routine rounding also seen for acute rounding with complaint of chronic pain. PMH chf, a flutter, gerd, anemia, copd, chronic pain Rex Bass MD [address] [facility], [address], [place], [address], [facility] [employer] 11/25/2024 12:03:07 12/14/2024 text/html Patient is an [...] underlying cognitive impairment Rex Bass MD [address] [facility], [address], [place], [address], [facility] 12/14/2024 10:00:50 01/06/2025 text/html Patient is [...] belong throughout day. Rex Bass MD [address] [facility], [address], [place], [address], [facility] 01/06/2025 11:42:10 01/13/2025 text/html Shreya is [...] syndrome, depression, anxiety, LLE cellulitis. DANIELLE GOFF, [employer] [address] [facility], [address], [place], [address], [facility] 01/13/2025 11:53:02 04/14/2025 text/html 89 yo female LTC resident seen for routine rounding. Medically she is stable, she is at her baseline in NAD. FRIEDA ANDERSON [address] [facility], [address], [place], [address], [facility] 04/15/2025 19:03:46 OBGyn Episode No OBEpisode recorded.
[2025-10-06 09:28] LABS: Chlamydia pneumoniae PCR Not Detected (Not Detect.); Coronavirus 229E PCR Not Detected (Not Detect.); Coronavirus HKU1 PCR Not Detected (Not Detect.); Coronavirus NL63 PCR Not Detected (Not Detect.); Coronavirus OC43 PCR Not Detected (Not Detect.); Influenza A H3 PCR Detected (Not Detect.); RSV PCR Not Detected (Not Detect.); Rhino/Enterovirus PCR Not Detected (Not Detect.); SARS-CoV-2 PCR Not Detected (Not Detect.)
[2025-10-06 09:52] LABS: Influenza A H1 PCR Not Detected (Not Detect.); Influenza A H1-2009 PCR Not Detected (Not Detect.)
== END 2025-10-05 15:44 ==
LOC: HO.MMNH3L 15:43
PROVIDERS: Visit Provider Student in an Organized Health Care Education/Training Program
DX: J44.9 Chronic obstructive pulmonary disease, unspecified (principal); I50.40 Unspecified combined systolic (congestive) and diastolic (congestive) heart failure; I48.91 Unspecified atrial fibrillation
CPT/HCPCS: 87633